=== PATIENT | female | born 1945 | race Caucasian/White ===

== ENCOUNTER → 2016-04-08 | Outpatient (REF) | payer MEDICARE ==
[~2016-04-08] MED LIST: /ADVA50050; /ADVA50050 IN; /BISO10TA OR; /BISO10TA PO; /CLOT10TR MT; /DULO30CA; /GLIM2TA; /GLIP10TAB OR; /METO25TA PO; /MOXI40TA OR; /ONDA4TA; /ONDA4TA OR; /SCOPPA TD; /SCOPPA TOP; /SUCR1TA OR; /TIOT18INH INH; ACET65TA; ACET65TA OR; ADVA115A INH; ALBU17IN INH; ALBU83IN IN; ALDA25TA2 PO; ALLE25CA; ALLE25CA OR; ALLE25CA PO; AMIT24CA5 PO; AMMO12CR4 EX; AMMO12CR4 TOP; AMMONIUM LACTATE; ASPI1TAB PO; ASPI325T; ASPI325T OR; ASPI81TA45 PO; ASPI81TA83 OR; ASPI81TA83 PO; ATARAX OR; AVAP300T OR; BABY81CH; BACL-67 PO; BACL10TA PO; BACL10TA2; BACL10TA2 OR; BACL10TA2 PO; BACT800T OR; BALMEX; BALMEX CREAM EXT; BALMEX TOP; BISO10TA PO; BISO5TAB5 PO; BISOPROLOL PO; BREO1INH INH; BUPIVACAINE; CALAMINE LOTION; CALAMINE LOTION EXT; CALC0.5C PO; CALC1CAP31 PO; CARA1SUS; CEPHULAC PO; CIPR250T3 PO; CLON0.1D3; CLOTPOW; COLA100C2; COLA100C2 OR; COLA100C2 PO; COMBIVENT; COMBVENT; COMBVENT INH; COUM1TAB17 PO; CRAN500C2 PO; DEMA100T PO; DEMA10TA; DEMA20TA; DEMA20TA6 PO; DEMADEX; DESONIDE; DILA2TAB; DOCU100C PO; DOCU10CA PO; DOXY100T OR; DRIS50002 PO; DUONSOL IN; ECOT325T5 OR; ESTR625TA OR; ESTR625TA PO; FERGON PO; FERR325T; FERR32TA PO; FERROUS GLUCONATE PO; FIORICET OR; FLEET ENEMA PR; FLON0.05; FLOVENT INH; FLUC10TA; FLUO20CA8 PO; FLUT11IN; FLUT11IN IN; FLUT11IN INH; FOLI1TAB OR; Fioricet PO; GLUC5TAB3 OR; GUAIPOW OR; HEPARIN; HEPARIN FLUSH; HEPARIN FLUSH IVFLUSH; HEPARIN LOCK FLUSH IV; HYDR25TA7; HYDR4TAB; HYDR4TAB OR; HYDR4TAB PO; HYDR50TA8 OR; HYDROCORTISONE0.5 %; HYDROCORTISONE0.5 % EXT; HYDROXYZINE OR; INSUH10VL SC; INSUHUMDS SC; INSULADS SC; INSULANT SC; INSULIN LANTUS SC; IPRASOL4 INH; JANUVIA OR; JANUVIA PO; KEPP500T6 PO; KEPPRA OR; KEPPRA PO; KETO0.5S15 OD; KLOR1TAB73 PO; LACT10SO29 PO; LACT10SO8; LACT10SO8 OR; LANTUS INSULIN SC; LASI80TA PO; LEVA500T OR; LEVA750T PO; LIDO1OIN2 TOP; LOPR50TA OR; LORA0.5T OR; LYRI75CA PO; MAALSUS; MAALSUS OR; MAALSUS PO; MACR50CA OR; MACROBID OR; MACROBID PO; MARCAINE; MARCAINE INJ; METO10TA2 OR; METO10TA2 PO; METO25TA PO; METO25TA2; METO25TA2 OR; MILKSUS OR; MILKSUS PO; MIRA3350 PO; MIRALEX OR; MORPHINE; MUCINEX; NAPR500T81; NAPRPOW4; NITRO10CA PO; NOVALOG INSULIN SC; NOVOINJ3 SC; NOVOLOG100 MG/ML SC; NYSTATIN; NYSTATIN EXT; NYSTATIN POWDER; NYSTATIN POWDER TOP; NYSTATIN TOP; NYSTPOW4 TOP; OMEP20CA3 PO; OMEP20TA7 OR; OXYC10TA12; OXYC10TA56 OR; OXYC1TAB23 PO; OXYC5CAP4; OXYC5CAP4 OR; OXYC5CAP4 PO; PAIN PUMP; PAIN325T; PAIN325T OR; PAXI20TA; PHEN 25; PHEN 25 OR; PHEN 25 PO; PHENERGAN; POTA10CA2; POTA10CA32 PO; POTA20TA2; POTA20TA2 OR; POTASSIUM CLORIDE OR; POTASSIUM OR; PRED10PA PO; PRED10TA2; PRED10TA2 OR; PRED20TA OR; PRED5TAB OR; PREDOPD OD; PREG25CA; PREG50CA PO; PREM0.9T; PRIALT INJ; PRIL20CA; PRIL20CA OR; PROM-190 PO; PROM25TA PO; PROZ20CA; PROZ20CA OR; PROZ40CA PO; Pain Pump; REGL10TA6 PO; REST0.05 OU; RESTASIS 0.05% OU; ROBITUSSIN OR; ROBITUSSIN OTC OR; ROBUTUSSIN; ROCA0.5C PO; SALINE FLUSH IV; SALINE LOCK FLUSH IV; SALISOL7; SENN15TA2 OR; SENN187T; SENN187T OR; SENN8.6T5 OR; SENO8.6T2 PO; SILVADENE; SILVADENE CREAM; SILVADENE TOP; SIME125C; SPIR1CAP INH; SPIR25TA2 OR; STARLIX PO; SUCR1TAB56 PO; TOPR25TA; TORS100T12 PO; TORS20TA2 OR; TORS20TA2 PO; TRAM50TA2; TRAM50TA2 OR; TRAN1.5D2 TOP; TYLE325T5 PO; VERA120C; VERA120C PO; VERA12TASA OR; VERA1TAB10 PO; VICT18IN SC; VIGA0.02 OD; VITA500047 PO; XARE15TA PO; XARE20TA PO; Z PACK; ZARO2.5T OR; ZITH500T; ZOFR20TA PO; ZOFR8TAB; ZYLE0.5S OU; [UNRECOGNIZED DRUG - CODE] INJ; [UNRECOGNIZED DRUG - CODE] IT; [UNRECOGNIZED DRUG - CODE] IT; [UNRECOGNIZED DRUG - CODE] PO; [UNRECOGNIZED DRUG - CODE] PO; [UNRECOGNIZED DRUG - OTHER]; [UNRECOGNIZED DRUG - OTHER]; [UNRECOGNIZED DRUG - OTHER]; [UNRECOGNIZED DRUG - OTHER] OR; guaifenesin; home o2; hydroxyzine; lopressor; oxygen; starlix PO
[2016-04-08 17:35] LABS: BASO # 0.2 K/mm3 (0.0-0.2); BASO % 2.4 % (0.0-1.0); EOS # 0.2 K/mm3 (0.0-0.50); EOS % 2.7 % (0.0-3.0); LYMPH # 1.7 K/mm3 (1.5-4.5); LYMPH % 17.4 % (24.0-44.0); MEAN CORPUSCULAR HEMOGLOBIN 24.7 pg (27.0-33.0); MEAN CORPUSCULAR HGB CONC 30.3 g/dl (32.0-36.5); MEAN CORPUSCULAR VOLUME 81.3 fl (80.0-96.0); MONO # 0.5 K/mm3 (0.0-0.8); MONO % 5.9 % (0.0-5.0); NEUTROPHILS # 6.3 K/mm3 (1.8-7.7); NEUTROPHILS % 69.9 % (36.0-66.0); RED CELL DISTRIBUTION WIDTH 24.4 % (11.5-14.5)
[2016-04-08 17:52] LABS: ALBUMIN 3.3 GM/DL (3.2-5.2); ALBUMIN/GLOBULIN RATIO 0.87 (1.00-1.93); BILIRUBIN,TOTAL 0.3 MG/DL (0.2-1.0); CALCIUM LEVEL 8.8 MG/DL (8.8-10.2); CREATININE FOR GFR 1.7 MG/DL (0.55-1.02); GLOMERULAR FILTRATION RATE 31.5 (>39); POTASSIUM SERUM 4.2 MEQ/L (3.5-5.1); TOTAL PROTEIN 7.1 GM/DL (6.4-8.2)
== END ==
LOC: M LAB REF 16:50
PROVIDERS: ATTEND Nurse Practitioner Family
DX: I50.9 Heart failure, unspecified (principal); E11.65 Type 2 diabetes mellitus with hyperglycemia; M10.00 Idiopathic gout, unspecified site; D63.1 Anemia in chronic kidney disease

== ENCOUNTER → 2016-04-27 | Outpatient (REF) | payer MEDICARE ==
[~2016-04-27] MED LIST changes: +TORS100T PO; -TORS100T12 PO; +VANC10005 INJ; -[UNRECOGNIZED DRUG - CODE] INJ
== END ==
LOC: M LAB REF 16:26
PROVIDERS: ATTEND Internal Medicine
DX: I50.9 Heart failure, unspecified (principal); D63.1 Anemia in chronic kidney disease; E11.65 Type 2 diabetes mellitus with hyperglycemia; N18.9 Chronic kidney disease, unspecified; E11.22 Type 2 diabetes mellitus with diabetic chronic kidney disease

== ENCOUNTER → 2016-05-11 | Outpatient (REF) | payer MEDICARE ==
[~2016-05-11] MED LIST changes: +COLC1TAB13 PO; +INSULADS INJ; +LYRI100C10 PO; +MUCI600T34 PO
[2016-05-11 18:32] LABS: ALBUMIN 3.3 GM/DL (3.2-5.2); CREATININE FOR GFR 1.74 MG/DL (0.55-1.02); GLOMERULAR FILTRATION RATE 30.7 (>39); MAGNESIUM LEVEL 2.3 MG/DL (1.8-2.4); PHOSPHORUS LEVEL 2.3 MG/DL (2.5-4.9); POTASSIUM SERUM 4.8 MEQ/L (3.5-5.1); URIC ACID 8.5 MG/DL (2.6-6.0)
[2016-05-11 18:51] LABS: BASO % 0.8 % (0.0-1.0); EOS # 0.2 K/mm3 (0.0-0.50); EOS % 3.1 % (0.0-3.0); LARGE UNSTAINED CELL # 0.1 K/mm3 (0.0-0.4); LARGE UNSTAINED CELL % 1.2 % (0.0-4.0); LYMPH # 1.4 K/mm3 (1.5-4.5); LYMPH % 19.8 % (24.0-44.0); MEAN CORPUSCULAR HEMOGLOBIN 24.5 pg (27.0-33.0); MEAN CORPUSCULAR VOLUME 84.6 fl (80.0-96.0); MONO # 0.4 K/mm3 (0.0-0.8); MONO % 6.1 % (0.0-5.0); NEUTROPHILS # 4.4 K/mm3 (1.8-7.7); PLATELET COUNT, AUTOMATED 218 k/mm3 (150-450); RED CELL DISTRIBUTION WIDTH 18.7 % (11.5-14.5); WHITE BLOOD COUNT 6.4 K/mm3 (4.0-10.0)
[2016-05-11 18:59] LABS: ADD MORPHOLOGY? YES
[2016-05-11 20:38] LABS: ANISOCYTOSIS 1+
== END ==
LOC: M LAB REF 16:38
PROVIDERS: ATTEND Internal Medicine Nephrology
DX: N17.9 Acute kidney failure, unspecified (principal); D63.1 Anemia in chronic kidney disease; N25.81 Secondary hyperparathyroidism of renal origin; N18.9 Chronic kidney disease, unspecified

== ENCOUNTER 2016-05-13 22:14 | Inpatient (IN) | payer MEDICARE, MEDICAID ==
[~2016-05-13] VITALS: Ht 170.2 cm; Wt 138.8 kg
[~2016-05-13 22:14] MED LIST changes: -COLC1TAB13 PO; -INSULADS INJ; -LYRI100C10 PO; -MUCI600T34 PO
[2016-05-13 23:19] LABS: ABG BASE EXCESS 1.5 (-2.0-2.0); ABG DEVICE NASAL CANN; ABG HCO3 26.8 MEQ/L (22.0-26.0); ABG PARTIAL PRESSURE CO2 44.7 mmHg (35.0-45.0); ABG PARTIAL PRESSURE O2 94.7 mmHg (75.0-100.0); ABG STANDARD HCO3 25.8 MEQ/L (22.0-26.0); ABG TOTAL CO2 28.1 MEQ/L (23.0-31.0); ABG pH (ARTERIAL) 7.395 UNITS (7.350-7.450)
[2016-05-13 23:52] LABS: DIFF SLIDE NUMBER 329; MEAN CORPUSCULAR HEMOGLOBIN 24.6 pg (27.0-33.0); MEAN CORPUSCULAR HGB CONC 29.6 g/dl (32.0-36.5); MEAN CORPUSCULAR VOLUME 83.2 fl (80.0-96.0); PLATELET COUNT, AUTOMATED 246 k/mm3 (150-450); RED CELL DISTRIBUTION WIDTH 18.4 % (11.5-14.5); WHITE BLOOD COUNT 8.1 K/mm3 (4.0-10.0)
[2016-05-14 00:10] LABS: BASOPHILS 3 % (0-4); EOSINOPHILS 3 % (0-5)
[2016-05-14 00:11] LABS: ANISOCYTOSIS 2+; HYPOCHROMASIA 3+
[2016-05-14 00:26] LABS: OSMOLALITY SERUM 312 MOSM/KG (280-301)
[2016-05-14 00:27] LABS: ANION GAP 9 MEQ/L (8-16); BLOOD UREA NITROGEN 30 MG/DL (7-18); CALCIUM LEVEL 9.9 MG/DL (8.8-10.2); CARBON DIOXIDE LEVEL 33 MEQ/L (21-32); CHLORIDE LEVEL 90 MEQ/L (98-107); CREATININE FOR GFR 1.86 MG/DL (0.55-1.02); GLOMERULAR FILTRATION RATE 28.4 (>39); POTASSIUM SERUM 3.9 MEQ/L (3.5-5.1); SODIUM LEVEL 132 MEQ/L (136-145)
[2016-05-14 00:32] LABS: GLUCOSE, FASTING 403 MG/DL (83-110)
[2016-05-14] MEDS ORDERED: HumuLIN R (REGULAR) INSULIN (NovoLIN R) **100U/ML** PER UNIT As Ordered ONE ×2 (00:41→02:01)
--- NOTE | 2016-05-14 02:40 | REPUSA ---
CLINICAL HISTORY: Shortness of breath. TECHNIQUE: Multiple axial CT images were obtained through the thorax without IV contrast material. COMMENTS: Comparison is made to the prior exam performed on 03/07/2016. Right port a catheter is in good position with its tip in the superior vena cava. No change in calcified mediastinal and hilar lymph nodes. No change in bilateral basilar atelectatic airspace disease of the lungs. No change in central pulmonary venous congestion. There is no evidence of pleural or parenchymal-based mass. There are no pleural effusions. There is n o evidence of hilar or mediastinal lymphadenopathy. The heart and great vessels are within normal galvan its. The visualized portions of the liver are of uniform attenuation without mass or defect. There is no i ntra or extrahepatic biliary ductal dilatation. The spleen is unremarkable. The visualized pancreas i s of normal contour and attenuation characteristics. There is no evidence of adrenal mass. The visual ized portions of the kidneys present no abnormalities. No change in small sliding hernia. The bony structures are free of lytic or blastic lesions. IMPRESSION: No change is seen. Thank you for your kind referral of this patient.
[2016-05-14] MEDS ORDERED: fentaNYL 100 MCG/2 ML INJECTION (J3010) As Ordered ONE (02:50)
[2016-05-14] MEDS ORDERED: methylPREDNISolone INJ 125 MG/2 ML VIAL (J2930) As Ordered ONE (04:55)
[2016-05-14] MEDS ORDERED: IPRATROPIUM 0.5MG/ALBUTEROL 2.5MG INH SOL UD 3ML (DUONEB)(J7620) As Ordered ONE (05:06)
[2016-05-14] MEDS ORDERED: ONDANSETRON 4MG/2ML VIAL (J2405) IV PRN (05:30)
[2016-05-14] MEDS ORDERED: IPRATROPIUM 0.5MG/ALBUTEROL 2.5MG INH SOL UD 3ML (DUONEB)(J7620) NEB PRN (05:30)
[2016-05-14] MEDS ORDERED: TORS100T PO (05:32)
[2016-05-14] MEDS ORDERED: INSULADS INJ (05:32)
--- NOTE | 2016-05-14 05:38 | HPEPDOC ---
General Date of Admission 05/14/2016 Chief Complaint The patient is a 70-year-old female admitted with a reason for visit of High Blood Sugar/Shortness Of Breath. 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 The patient states that over the last 2 days she has had worsening shortness of breath with associated nonproductive cough. The patient notes that she usually wears 2 L of oxygen at night, however she has felt that she has needed it during the daytime as well during this period. The patient denies any orthopnea , PND, or increase in lower extremity swelling. In addition, the patient states that she has been checking her blood sugars at home and they have been around 500. She notes that she has been taking her insulin medication, but states that she has had a difficult time controlling her blood sugar for years. The patient denies any fevers, chills, chest pain, palpitations, abdominal pain, or any nausea/vomiting/diarrhea. In the ER, a CT of the chest revealed no acute findings. However, the patient was hypoxic and requiring 2 L of oxygen with diminished breath sounds noted diffusely. In addition, the patient's blood sugar levels were noted to be greater than 400 in the ER. The patient will be admitted under the service of Dr. Story for further evaluation and management of COPD exacerbation and elevated blood sugar levels. Home Medications Scheduled (Restasis) 0.05 % Emu 1 DROP OU BID (Reported) (Amitiza) 24 Mcg Cap 24 MCG PO QHS (Reported) (Ammonium Lactate) 12 % Cre 1 DOSE TOP BID (Reported) APPLY TO LEGS AND FEET (Colchicine) 0.6 Mg Tab 0.6 MG PO DAILY (Reported) (Victoza) 18 Mg/3 Ml Inj 1.8 MG SC DAILY (Reported) Baclofen (Baclofen) 20 Mg Tab 20 MG PO BID (Reported) Bisoprolol Fumarate (Bisoprolol Fumarate) 5 Mg Tab 2.5 MG PO DAILY (Reported) Cranberry Extract (Cranberry) 500 Mg Cap 500 MG PO TID (Reported) Docusate Sodium (Docusate Sodium) 100 Mg Cap 100 MG PO BID (Reported) Ferrous Gluconate (Ferrous Gluconate) 324 Mg Tab 324 MG PO DAILY (Reported) Fluoxetine Hcl (Fluoxetine) 20 Mg Cap 40 MG PO DAILY (Reported) TAKES AT NOON Insulin Aspart (Novolog) 100 U/Ml Inj 16 UNITS SC AC (Reported) Insulin Glargine (Lantus) 100 Unit/Ml Inj 78 UNIT INJ BID (Reported) Lactulose (Lactulose) 10 Gm/15 Ml Radha 30 ML PO BID (Reported) MIX WITH JUICE Levetiracetam (Keppra) 500 Mg Tab 500 MG PO QID (Reported) Metoclopramide HCl (Reglan) 10 Mg Tab 10 MG PO TID (Reported) Metolazone (Metolazone) 2.5 Mg Tab 2.5 MG PO 3XW (Reported) TUESDAY, TUESDAY, TUESDAY AT NOON Omeprazole (Omeprazole) 20 Mg Cap 20 MG PO BID (Reported) Ondansetron HCl (Zofran) 4 Mg Tab 4 MG PO QID (Reported) Potassium Chloride (Potassium Chloride ER) 10 Meq Cap 30 MEQ PO TID (Reported) Pregabalin (Lyrica) 100 Mg Cap 100 MG PO TID (Reported) Promethazine HCl (Promethazine HCl) 25 Mg Tab 25 MG PO AC (Reported) Senna (Senokot) 8.6 Mg Tab 2 TAB PO BID (Reported) Spironolactone (Aldactone) 25 Mg Tab 25 MG PO BID (Reported) Sucralfate (Sucralfate) 1 Gm Tab 1 GM PO BID (Reported) Torsemide (Torsemide) 100 Mg Tab 100 MG PO BID (Reported) TAKES WITH 20 MG FOR 120 MG TOTAL Torsemide (Torsemide) 20 Mg Tab 20 MG PO DAILY (Reported) TAKES WITH 100 MG FOR 120 MG TOTAL Vitamin D (Drisdol) 50,000 Unit Cap 50,000 UNIT PO QWEEK (Reported) ON TUESDAY Scheduled PRN Acetaminophen (Tylenol) 325 Mg Tab 650 MG PO Q4H PRN PRN PAIN / FEVER (Reported ) Albuterol/Ipratropium (Ipratropium [place]/Albut 0.5-2.5 (3) mg/3Ml) 1 Radha Radha 1 RADHA INH QID PRN PRN SHORTNESS OF BREATH (Reported) Guaifenesin (Mucinex) 600 Mg Tab 600 MG PO BID PRN PRN CONGESTION (Reported) Milk Of Magnesia (Milk of Magnesia) 1,200 Mg/15 Ml Esperanza 30 ML PO DAILY PRN PRN CONSTIPATION (Reported) Scopolamine (Transderm-Scop) 1.5 Mg Dis 1.5 MG TOP Q72H PRN PRN NAUSEA (Reported ) Allergies Coded Allergies: Cephalosporins (Verified Allergy, Unknown, KEFLEX - HIVES, 07/05/12) Chlorpromazine (Verified Allergy, Unknown, HIVES, 07/05/12) Iodine (Verified Allergy, Unknown, 07/05/12) Latex (Verified Allergy, Unknown, RISK, 07/05/12) Loratadine (Verified Allergy, Unknown, HIVES, 07/05/12) Methadone (Verified Allergy, Unknown, 07/05/12) Penicillins (Verified Allergy, Unknown, HIVES, 07/05/12) Penicillins Cross Reactors (Verified Allergy, Unknown, HIVES, 07/05/12) Pentazocine (Verified Allergy, Unknown, HIVES, 07/05/12) Sulfa Antibiotics (Unverified Allergy, Unknown, HIVES, 12/30/14) Fluticasone (Verified Adverse Reaction, Mild, THRUSH, 07/05/12) Salmeterol (Verified Adverse Reaction, Mild, THRUSH, 07/05/12) Promethazine (Verified Adverse Reaction, Unknown, TAKES PHENERGAN AT HOME , 07/05/12) Past Medical History Medical History As noted in HPI. Surgical History Hysterectomy. Back surgery. Left ankle surgery. Lung surgery. Right hip replacement. Right knee surgery. IVC filter placement. Family History Significant Family History: No pertinent family hx Social History * Smoker: non-smoker Alcohol: denies Drugs: denies Lives at home with her , and does have health aides come to the home twice a day. However, she notes that she feels that she needs more help around the house as her deconditioning has gotten worse. Review of Symptoms Other systems 10 point review of systems negative unless otherwise specified in HPI. Physical Examination General Exam: Positive: Alert, Cooperative, No Acute Distress ENT Exam: Positive: Atraumatic, Mucous membr. moist/pink Chest Exam: Positive: Clear to auscultation, Diminished, Negative: Rales, Rhonchi Heart Exam: Positive: Normal S1, Normal S2, Rate Normal Abdomen Exam: Positive: Soft, Negative: Tenderness Extremity Exam: Negative: Tenderness Vital Signs As noted in EMR. Laboratory Data Labs 24H Laboratory Tests 2 05/13/16 22:21: Bedside Glucose (Misc Panel) 431H 05/13/16 23:13: Arterial Blood pH 7.395, Arterial Blood Partial Pressure CO2 44.7, Arterial Blood Partial Pressure O2 94.7, Arterial Blood Total CO2 28.1, Arterial Blood HCO3 26.8H, Arterial Blood Base Excess 1.5, Arterial Blood Oxygen Saturation 96.7, Blood Gas Bicarbonate Standard 25.8, Oxygen Delivery Device NASAL MORAIMA 05/13/16 23:34: Anion Gap 9, Anisocytosis 2+, Basophils (Manual) 3, Blood Urea Nitrogen 30H, Creatinine 1.86H, Sodium Level 132L, Potassium Level 3.9, Chloride Level 90L, Carbon Dioxide Level 33H, Calcium Level 9.9, Total Creatine Kinase 43, Creatine Kinase MB 1.0, Creatine Kinase MB Relative Index 2.32, Eosinophils (Manual) 3, Glomerular Filtration Rate 28.4L, Hypochromasia 3+, Lymphocytes (Manual) 34, Monocytes (Manual) 4, Neutrophils 56, Osmolality 312H, Platelet Estimate NORMAL , Red Blood Cell Morphology NORMAL, Troponin I < 0.02 05/13/16 23:59: Bedside Glucose (Misc Panel) 414H 05/14/16 00:47: Bedside Glucose (Misc Panel) 371H 05/14/16 02:52: Bedside Glucose (Misc Panel) 338H 05/14/16 03:58: Bedside Glucose (Misc Panel) 323H 05/14/16 04:59: Bedside Glucose (Misc Panel) 312H CBC/BMP Laboratory Tests 05/13/16 23:34 Calcium Level 9.9, Total Creatine Kinase 43, Red Blood Count 4.86, Mean Corpuscular Volume 83.2, Mean Corpuscular Hemoglobin 24.6 L, Mean Corpuscular Hemoglobin Concent 29.6 L, Red Cell Distribution Width 18.4 H Microbiology Microbiology 05/14/16 Blood Culture, Received Pending 05/13/16 Blood Culture, Received Pending Plan / VTE VTE Prophylaxis Ordered?: Yes Plan Plan COPD exacerbation with hypoxia requiring 2 L of supplemental oxygen CT of the chest with no acute findings noted Patient does not usually require oxygen while awake ABG without any hypercapnia noted Status post 125 mg dose of IV steroids in the ER We'll continue on 40 mg of prednisone by mouth Continue Nebulizer treatments Sputum culture, and respiratory panel ordered Patient started on azithromycin Continue to monitor respiratory status Elevated blood sugar levels Patient with a history of Uncontrolled diabetes mellitus requiring high amounts of insulin Hemoglobin A1c noted to be 9.9% on 04/27/69 We will continue the patient on Levemir 78 units twice a day, and NovoLog 16 units before meals The patient's insulin requirements may need to be titrated up as the patient is receiving steroids at this time Hypertension Continue current meds History of DVT status post IVC filter MATT Continue home CPAP CKD stage 4 Serum creatinine appears to be at baseline History of diastolic heart failure Patient appears volume compensated at this time Patient unsure of her Diuretic dose, the Medication Reviewer will reach out to the patient's caregiver later this morning for further clarification Seizure disorder Continue Keppra Morbid obesity History of chronic arachnoiditis Patient does state that she has had more trouble with transferring over the last few months We will order a physical therapy evaluation to further assess the need for DME, other home services DVT prophylaxis -subcutaneous heparin The patient will be admitted under the service of Dr. Paula Story, who will begin following the patient on 05/14/2016 at 7 AM. ANGELA GIBSON MD May 14, 2016 05:38
[2016-05-14] MEDS ORDERED: TORS20TA2 PO (05:42)
[2016-05-14] MEDS ORDERED: LYRI100C10 PO (05:42)
[2016-05-14] MEDS ORDERED: FERR32TA PO (05:49)
[2016-05-14] MEDS ORDERED: KEPP500T6 PO (05:49)
[2016-05-14] MEDS ORDERED: MUCI600T34 PO (05:49)
[2016-05-14] MEDS ORDERED: COLC1TAB13 PO (05:49)
[2016-05-14] MEDS ORDERED: METO25TA PO (05:49)
[2016-05-14] MEDS ORDERED: VICT18IN SC (05:49)
[2016-05-14] MEDS ORDERED: CRAN500C2 PO (05:49)
--- NOTE | 2016-05-14 06:24 | EDDOCDS ---
Nurse's Notes [facility] Name: Maricarmen Stern Age: 70 yrs Sex: Female : 1945 Arrival Date: 05/13/2016 Time: 22:14 Bed 10 Private MD: Paulo Villalobos Diagnosis: Chronic obstructive pulmonary disease with (acute) exacerbation;Hypoxemia;Hyperglycemia, unspecified Presentation: 05/13 22:22 Presenting complaint: Patient states: been sleeping, tired all day, increased rs3 difficulty breathing sat 91%. high blood sugar 457 at home. FSBS 431 at triage. Adult Sepsis Screening: The patient does not have new or worsening altered mentation. Patient's respiratory rate is less than 22. Systolic blood pressure is greater than 100. Patient has a qSOFA score of 0- Negative Sepsis Screen. Suicide/Homicide risk assessment- the patient denies having any suicidal and/or homicidal ideations and does not present with any other emotional, behavioral or mental health complaints. Status: Patient is not a litigation services manager or dependent. Transition of care: patient was not received from another setting of care. 22:22 Acuity: ARNOLD Level 3 rs3 22:22 Method Of Arrival: Wheelchair rs3 Triage Assessment: 22:31 General: Appears in no apparent distress. Pain: Denies pain. Respiratory: Onset: The rs3 symptoms/episode began/occurred gradually. Historical: - Allergies: CEPHALOSPORINS (Rash); Chlorpromazine (Rash); Doxycycline (Rash); Latex (Rash); loratadine (Rash); Methadone (Rash); Morphine (Rash); PENICILLINS (Rash); PENTAZOCINE (Rash); - Home Meds: 1. baclofen 20 mg Oral tab twice a day 2. bisoprolol fumarate 5 mg oral tab 0.5 tab once daily 3. Colace 100 mg oral cap 1 cap once daily 4. fluoxetine 20 mg Oral cap 1 cap once daily 5. metoclopramide HCl 10 mg Oral tab 1 tab once daily 6. omeprazole 20 mg Oral cpDR once daily 7. Zofran (as hydrochloride) 4 mg Oral tab daily 8. potassium chloride 10 mEq Oral cpER 1 cap once daily 9. promethazine 25 mg Oral tab 1 tab once daily 10. senna 8.6 mg oral tab 2 tabs once daily 11. spironolactone 25 mg Oral tab 1 tab once daily 12. torsemide 50 mg oral tab twice a day 13. pregabalin 50 mg Oral cap 1 cap 3 times per day 14. Amitiza 24 mcg oral cap 2 times per day 15. sucralfate 1 gram Oral tab 1 tab 2 times per day 16. Vitamin D Oral daily 17. Lantus 100 unit/mL Sub-Q crtg 78 unit twice a day 18. Novolog 100 unit/mL Sub-Q soln 16 unit before meals - PMHx: Asthma; blood clot in left leg; CHF; Diabetes - IDDM: controlled; Hypertension; Migraines; retenoiditis; paralyzed diaphragm; Seizures; Sleep Apnea w/ CPAP; - PSHx: Adeel Filter Placement; right knee surgery; right hip surgery; lung surgery; Hysterectomy; back surgery; left ankle surgery; - Social history: Smoking status: Patient states was never smoker of tobacco. No barriers to communication noted, The patient speaks fluent Arabic. - Family history: Not pertinent, No immediate family members are acutely ill. - : The pt / caregiver states he / she is not on anticoagulants. Home medication list is obtained from the patient. - Exposure Risk Screening:: None identified. Screenin:29 Infection Control. gr2 23:17 Screening information is obtained from the patient. Fall risk: At risk due to gait mlc disturbance. Abuse/DV Screen: The patient / caregiver reports he/she is:. Abuse/DV Screen: The patient / caregiver reports he/she is: not in a situation that causes fear, pain or injury. Nutritional screening: No deficits noted. home support is adequate. 05/14 00:55 Assistance ADL's: Requires assistance with meal preparation, this assistance is mlc provided by Home Health Aides, bathing, assistance is provided by Home Health Aides, dressing, assistance is provided by Home Health Aides, toileting, assistance is provided by family members, Home Health Aides, housework, assistance is provided by family members, medication administration, assistance is provided by family members. Advance Directives: Currently, there is a health care proxy, Andrzej Stern, santana. There is an active DNR order but there is no copy available at this time. There is a living will, but a copy is not available at this time. There is an active Power of Core Sucker, Andrzej Stern, . Assessment: 05/13 23:37 General: Appears ill, Behavior is appropriate for age, cooperative, pleasant. Pain: mlc Location: thoracic area and low back area Pain currently is 8 out of 10 on a pain scale. Neurological: Level of Consciousness is awake, alert, Oriented to person, place, time. Cardiovascular: Capillary refill < 3 seconds Heart tones S1 S2 present Rhythm is Chest pain is denied. 23:40 Cardiovascular: Rhythm is regular. Respiratory: Airway is patent Respiratory effort is mlc labored, Respiratory pattern is regular, Breath sounds are diminished bilaterally. Reports shortness of breath at rest. GI: Abdomen is obese, Denies nausea. Derm: Skin is dry, Skin is normal. 05/14 00:06 Reassessment: Patient appears in no apparent distress at this time. Patient states mlc symptoms have not improved. IV fluids infusing per order. pt eating ice chips. at bedside. 00:53 Reassessment: Patient appears in no apparent distress at this time. pt repositioned for mlc comfort. IV fluids complete. pt medicated per order. . 01:50 General: Appears in no apparent distress, comfortable, to be sleeping. Respiratory: mlc Airway is patent Respiratory effort is even, unlabored. Derm: Skin is normal. 02:10 Reassessment: Patient appears in no apparent distress at this time. pt medicated per mlc order. 03:04 Reassessment: pt c/o back and leg pain. pt medicated per order. pt resting at this mlc time, lights dimmed for comfort. . 04:11 Reassessment: Patient appears in no apparent distress at this time. pt reports no mlc decrease in pain. pt resting comfortably in bed, resp easy/unlabored. . 04:23 General: pt medicated per order. pt repositioned for comfort. . mlc 05:10 General: Dr. Panchal at bedside. pt resting comfortably in bed. pain rated 8/10 but pt mlc states she is comfortable. 06:19 General: Appears in no apparent distress, comfortable, Behavior is cooperative, mlc pleasant. Neurological: Level of Consciousness is awake, alert, obeys commands, Oriented to person, place, time. Respiratory: Airway is patent Respiratory effort is even, unlabored, Respiratory pattern is regular. Derm: Skin is normal. Vital Signs: 05/13 22:17 BP 157 / 55; Pulse 78; Resp 20 S; Temp 95.9(O); Pulse Ox 95% on R/A; Weight 124.28 kg gr2 (R); Height 5 ft. 7 in. (170.18 cm) (R); Pain 05/14; 23:17 BP 135 / 63 (auto/); mlc 23:17 Pulse 74 MON; Pulse Ox 94% ; mlc 23:40 Pulse 74 MON; Pulse Ox 94% ; mlc 23:47 BP 175 / 78 (auto/); mlc 23:47 Pulse 74 MON; Pulse Ox 94% ; mlc 05/14 00:05 Pulse 76 MON; Pulse Ox 96% ; mlc 00:17 BP 142 / 63 (auto/); mlc 00:17 Pulse 78 MON; Pulse Ox 97% ; mlc 00:32 BP 148 / 69 (auto/); mlc 00:32 Pulse 78 MON; Pulse Ox 93% ; mlc 00:47 BP 146 / 64 (auto/); mlc 00:53 Pulse 80 MON; Pulse Ox 94% ; mlc 01:02 Pulse 82 MON; Pulse Ox 94% ; mlc 01:02 BP 138 / 60 (auto/); mlc 01:17 Pulse 82 MON; Pulse Ox 94% ; mlc 01:17 BP 134 / 63 (auto/); mlc 01:32 BP 131 / 63 (auto/); mlc 01:32 Pulse 82 MON; Pulse Ox 93% ; mlc 01:47 Pulse 82 MON; Pulse Ox 93% ; mlc 01:47 BP 125 / 70 (auto/); mlc 02:02 BP 142 / 66 (auto/); mlc 02:02 Pulse 82 MON; Pulse Ox 97% ; mlc 02:17 Pulse 80 MON; Pulse Ox 95% ; mlc 02:17 BP 154 / 67 (auto/); mlc 02:32 Pulse 82 MON; Pulse Ox 95% ; mlc 02:32 BP 163 / 67 (auto/); mlc 02:47 BP 145 / 65 (auto/); mlc 02:47 Pulse 80 MON; Pulse Ox 94% ; mlc 03:02 Pulse 80 MON; Pulse Ox 92% ; mlc 03:02 BP 124 / 60 (auto/); mlc 03:04 Pulse 80 MON; Pulse Ox 89% ; mlc 03:17 Pulse 80 MON; Pulse Ox 94% ; mlc 03:17 BP 129 / 58 (auto/); mlc 03:32 Pulse 82 MON; Pulse Ox 97% ; mlc 03:32 BP 149 / 87 (auto/); mlc 03:47 BP 140 / 61 (auto/); mlc 03:47 Pulse 80 MON; Pulse Ox 93% ; mlc 04:02 BP 141 / 62 (auto/); mlc 04:09 Pulse 78 MON; Pulse Ox 96% ; mlc 04:17 Pulse 80 MON; Pulse Ox 96% ; mlc 04:17 BP 136 / 61 (auto/); mlc 04:32 Pulse 82 MON; Pulse Ox 94% ; mlc 04:32 BP 148 / 65 (auto/); mlc 04:47 Pulse 80 MON; Pulse Ox 94% ; mlc 04:47 BP 150 / 68 (auto/); mlc 05:02 BP 150 / 68 (auto/); mlc 05:02 Pulse 80 MON; Pulse Ox 94% ; mlc 05:10 Pain 8/10; mlc 05:17 Pulse 78 MON; Pulse Ox 96% ; mlc 05:17 BP 156 / 82 (auto/); mlc 05:32 Pulse 78 MON; Pulse Ox 95% ; mlc 05:32 BP 140 / 64 (auto/); mlc 05:46 Temp 97.4; mlc 05:47 Pulse 78 MON; Pulse Ox 95% ; mlc 05:47 BP 140 / 65 (auto/); mlc 06:02 Pulse 78 MON; Pulse Ox 96% ; mlc 06:02 BP 127 / 60 (auto/); mlc 06:17 BP 128 / 60 (auto/); mlc 06:17 Pulse 80 MON; Pulse Ox 96% ; mlc 05/13 22:17 Body Mass Index 42.91 (124.28 kg, 170.18 cm) gr2 Vitals: 05/13 22:17 Log In Time: May 13, 2016 at 22:17. RN notified that patient meets Red Flag gr2 criteria. ED Course: 22:16 Patient visited by Eric Mercer. gr2 22:16 Patient moved to Waiting gr2 22:17 Paulo Villalobos MD is Private Physician. gr2 22:19 Patient visited by Eric Mercer. gr2 22:19 Patient visited by Eric Mercer. gr2 22:19 Patient moved to Pre RCE gr2 22:24 Triage Initiated rs3 22:32 Vilma Farris,GUREMET is Primary Nurse. rs3 22:32 Patient moved to 10 rs3 22:33 Placido Arredondo DO is Attending Physician. mm11 22:33 Patient visited by Placido Arredondo DO. mm11 22:45 Patient visited by Placido Arredondo DO. mm11 23:13 [facility] Payment Agreement was scanned into [employer] and attached to record. ks16 23:17 The patient / caregiver is instructed regarding the plan of care and ED course. Cardiac mlc monitor on. Pulse ox on. NIBP on. 23:17 Accessed using accessed w/ # 20 Foley needle, sterile technique, per hospital protocol. mlc InfusaPort in patient's anterior aspect of right upper chest. Clean & dry. Dressing intact. Good blood return. Flushes easily. O2 via nasal cannula \T\ 2L/min. 23:37 Osmolality, Serum Sent. mlc 23:37 -Blood Culture Sent. mlc 23:37 Basic Metabolic Profile Sent. mlc 23:37 CBC with Diff Sent. mlc 23:37 Cardiac Injury Profile Sent. mlc 23:37 Troponin Sent. mlc 23:38 EKG done. (by ED staff). Reviewed by Placido Arredondo DO. cln 23:39 Patient visited by Nargis Sunshine PCA. cln 23:42 Patient visited by Vilma Farris RN. mlc 05/14 00:06 DIFFERENTIAL NO CHARGE Sent. mlc 00:08 Patient visited by Vilma Farris RN. mlc 00:30 Notified attending ED physician of Critical lab value. Dr Arredondo notified of glucose andrew of 403mg/dl. 00:58 Patient visited by Vilma Farris RN. mlc 01:50 Patient visited by Vilma Farris RN. mlc 02:12 Patient visited by Vilma Farris RN. mlc 02:48 Al cath inserted 16 Fr. Balloon inflated. To gravity drainage. returned clear yellow mlc urine. Patient tolerated well. 03:05 Patient visited by Vilma Farris RN. mlc 03:16 CT Chest Without Contrast Returned. EDMS 03:51 Patient visited by Placido Arredondo DO. mm11 04:11 Patient visited by Vilma Farris RN. mlc 04:24 Patient visited by Vilma Farris RN. mlc 04:56 Torrey Panchal is Hospitalizing Provider. mm11 05:11 Patient visited by Vilma Farris RN. mlc 06:19 No procedures done that require assistance. mlc Administered Medications: 05/13 23:37 Drug: NS 0.9% 500 ml [sodium chloride 0.9 % intravenous solution] Route: IV; Rate: mlc bolus; Site: Implantable Access Device; 05/14 00:52 Follow up: IV Status: Completed infusion [facility] [place] 00:51 Drug: Insulin Regular Human 10 units [insulin regular human 100 unit/mL injection mlc solution (0.1 mL)] {Co-Signature: ko2 (Dayanna Smith RN).} Route: IVP; Site: Implantable Access Device; 00:52 Drug: heparin 100units/mL flush (infusaport) 5 ml [heparin flush (porcine) 100 unit/mL mlc in 0.9 % sodium chloride IV kit (5 mL)] Route: IVP; Site: Implantable Access Device; 02:09 Drug: Insulin Regular Human 10 units [insulin regular human 100 unit/mL injection mlc solution (0.1 mL)] {Co-Signature: [email or web address] (Miranda Cee RN).} Route: IVP; Site: Implantable Access Device; 03:04 Drug: fentaNYL (PF) 50 mcg [fentanyl (PF) 50 mcg/mL injection solution (1 mL)] Route: mlc IVP; Site: Implantable Access Device; 04:23 Drug: fentaNYL (PF) 50 mcg [fentanyl (PF) 50 mcg/mL injection solution (1 mL)] Route: mlc IVP; Site: Implantable Access Device; 05:10 Follow up: Pain 11/11 Adult; Response: Pain is decreased [facility] [place] 05:09 Drug: Solu-MEDROL 125 mg [Solu-Medrol 500 mg intravenous solution (125 mg)] Route: IVP; [facility] [place] Site: Implantable Access Device; 05:15 Drug: Albuterol-Ipratropium 3 ml [ipratropium-albuterol 0.5 mg-3 mg(2.5 mg base)/3 mL lf2 nebulization soln (3 mL)] Route: Inhalation; Point of Care Testing: Blood Glucose: 00:06 Blood Glucose: 414 mg/dL; mlc 00:55 Blood Glucose: 371 mg/dL; mlc 01:50 Blood Glucose: 378 mg/dL; mlc 01:50 Blood Glucose: 381 mg/dL; mlc 02:52 Blood Glucose: 338 mg/dL; mlc 03:58 Blood Glucose: 323 mg/dL; mlc 05:09 Blood Glucose: 312 mg/dL; [facility] [place] Ranges: Output: 06:24 Urine: 1100.00ml (Al); Total: 1100.00ml. [facility] [place] RT: 05:15 Subsequent Med Neb Given as ordered Patient was reinforced on procedure Patient lf2 tolerated procedure well without adverse effect. O2 via nasal cannula \T\ 2L/min. Respiratory: Airway is patent Respiratory effort is even, unlabored, Respiratory pattern is regular symmetrical, Breath sounds are diminished bilaterally. Breath sounds with wheezes bilaterally. at expiration. Order Results: Lab Order: Fingerstick Blood Sugar; [facility] 22:21 Test: BEDSIDE GLUCOSE; Value: 431; Range: 83-110; Abnormal: Above high normal; Units: MG/DL; Status: F Lab Order: -Arterial Blood Gas; [facility]05/13/16 23:13 Test: ABG pH (ARTERIAL); Value: 7.395; Range: 7.350-7.450; Units: UNITS; Status: F Test: ABG PARTIAL PRESSURE CO2; Value: 44.7; Range: 35.0-45.0; Units: mmHg; Status: F Test: ABG PARTIAL PRESSURE O2; Value: 94.7; Range: 75.0-100.0; Units: mmHg; Status: F Test: ABG TOTAL CO2; Value: 28.1; Range: 23.0-31.0; Units: MEQ/L; Status: F Test: ABG HCO3; Value: 26.8; Range: 22.0-26.0; Abnormal: Above high normal; Units: MEQ/L; Status: F Test: ABG BASE EXCESS; Value: 1.5; Range: -2.0-2.0; Status: F Test: ABG STANDARD HCO3; Value: 25.8; Range: 22.0-26.0; Units: MEQ/L; Status: F Test: ABG O2 SATURATION; Value: 96.7; Range: 95.0-99.0; Units: %; Status: F Test: ABG DEVICE; Value: NASAL MORAIMA; Status: F Lab Order: Basic Metabolic Profile; [facility] 05/13/16 23:34 Test: GLUCOSE, FASTING; Value: 403; Range: 83-110; Abnormal: Above upper panic limits; Units: MG/DL; Status: F Test: BLOOD UREA NITROGEN; Value: 30; Range: 7-18; Abnormal: Above high normal; Units: MG/DL; Status: F Test: CREATININE FOR GFR; Value: 1.86; Range: 0.55-1.02; Abnormal: Above high normal; Units: MG/DL; Status: F Test: SODIUM LEVEL; Range: 136-145; Units: MEQ/L; Status: I Test: POTASSIUM SERUM; Range: 3.5-5.1; Units: MEQ/L; Status: I Test: CHLORIDE LEVEL; Range: 98-107; Units: MEQ/L; Status: I Test: CARBON DIOXIDE LEVEL; Range: 21-32; Units: MEQ/L; Status: I Test: ANION GAP; Range: 8-16; Units: MEQ/L; Status: I Test: CALCIUM LEVEL; Range: 8.8-10.2; Units: MG/DL; Status: I Test: GLOMERULAR FILTRATION RATE; Value: 28.4; Range: >39; Abnormal: Below low normal; Status: F Test: SODIUM LEVEL; Value: 132; Range: 136-145; Abnormal: Below low normal; Units: MEQ/L; Status: F Test: POTASSIUM SERUM; Value: 3.9; Range: 3.5-5.1; Units: MEQ/L; Status: F Test: CHLORIDE LEVEL; Value: 90; Range: 98-107; Abnormal: Below low normal; Units: MEQ/L; Status: F Test: CARBON DIOXIDE LEVEL; Value: 33; Range: 21-32; Abnormal: Above high normal; Units: MEQ/L; Status: F Test: ANION GAP; Value: 9; Range: 8-16; Units: MEQ/L; Status: F Test: CALCIUM LEVEL; Value: 9.9; Range: 8.8-10.2; Units: MG/DL; Status: F Test Note: ; Units are mL/min/1.73 m2 Chronic Kidney Disease Staging per NKF: Stage I & II GFR >=60 Normal to Mildly Decreased Stage III GFR 30-59 Moderately Decreased Stage IV GFR 15-29 Severely Decreased Stage V GFR <15 Very Little GFR Left ESRD GFR <15 on SOFTBALL CORE MOLDER Lab Order: CBC with Diff; SPEC'M 05/13/16 23:34 Test: WHITE BLOOD COUNT; Value: 8.1; Range: 4.0-10.0; Units: K/mm3; Status: F Test: RED BLOOD COUNT; Value: 4.86; Range: 4.00-5.40; Units: M/mm3; Status: F Test: HEMOGLOBIN; Value: 12.0; Range: 12.0-16.0; Units: g/dl; Status: F Test: HEMATOCRIT; Value: 40.4; Range: 36.0-47.0; Units: %; Status: F Test: MEAN CORPUSCULAR VOLUME; Value: 83.2; Range: 80.0-96.0; Units: fl; Status: F Test: MEAN CORPUSCULAR HEMOGLOBIN; Value: 24.6; Range: 27.0-33.0; Abnormal: Below low normal; Units: pg; Status: F Test: MEAN CORPUSCULAR HGB CONC; Value: 29.6; Range: 32.0-36.5; Abnormal: Below low normal; Units: g/dl; Status: F Test: RED CELL DISTRIBUTION WIDTH; Value: 18.4; Range: 11.5-14.5; Abnormal: Above high normal; Units: %; Status: F Test: PLATELET COUNT, AUTOMATED; Value: 246; Range: 150-450; Units: k/mm3; Status: F Test: NEUTROPHILS; Value: 56; Range: 35-75; Units: %; Status: F Test: LYMPHOCYTES; Value: 34; Range: 16-52; Units: %; Status: F Test: MONOCYTES; Value: 4; Range: 0-8; Units: %; Status: F Test: EOSINOPHILS; Value: 3; Range: 0-5; Units: %; Status: F Test: BASOPHILS; Value: 3; Range: 0-4; Units: %; Status: F Test: RBC MORPHOLOGY; Value: NORMAL; Status: F Test: HYPOCHROMASIA; Value: 3+; Status: F Test: ANISOCYTOSIS; Value: 2+; Status: F Lab Order: Cardiac Injury Profile; SPEC'M 05/13/16 23:34 Test: CPK CREATINE PHOSPHOKINASE; Value: 43; Range: 26-192; Units: U/L; Status: F Test: CK-MB VALUE MASS; Value: 1.0; Range: 0.0-3.6; Units: NG/ML; Status: F Test: MB/CK RELATIVE INDEX; Value: 2.32; Range: < OR =4; Status: F Test Note: ; DIAGNOSIS CRITERIA MMB ng/ml Relative Index (RI) NON-AMI < or = 5 N/A ERVIN ZONE > 5 < or = 4 AMI > 5 > 4 Lab Order: Troponin; 05/13/16 23:34 Test: TROPONIN I; Value: < 0.02; Range: < 0.10; Units: NG/ML; Status: F Test Note: ; Troponin I Reference Interval for [employer] LOCI: 99th Percentile= 0.00-0.045 ng/ml Risk Stratification: <= 0.10 ng/ml Decreased Risk for Adverse Clinical Events. 0.10-1.50 ng/ml Increased Risk for Adverse Clinical Events. Evaluation of additional criterion and/or repeat testing in 2-6 hours is suggested to rule out myocardial damage. >= 1.50 ng/ml Indicative of Myocardial Injury. Lab Order: Osmolality, Serum; 05/13/16 23:34 Test: OSMOLALITY SERUM; Value: 312; Range: 280-301; Abnormal: Above high normal; Units: MOSM/KG; Status: F Lab Order: PLATELET ESTIMATE; 05/13/16 23:34 Test: PLATELET ESTIMATE; Value: NORMAL; Range: NORMAL; Status: F Lab Order: Fingerstick Blood Sugar; 05/13/16 23:59 Test: BEDSIDE GLUCOSE; Value: 414; Range: 83-110; Abnormal: Above high normal; Units: MG/DL; Status: F Test Note: ; RN Notified Dr Order not to Draw Lab Order: Fingerstick Blood Sugar; 05/14/16 00:47 Test: BEDSIDE GLUCOSE; Value: 371; Range: 83-110; Abnormal: Above high normal; Units: MG/DL; Status: F Test Note: ; RN Notified Dr Order not to Draw Lab Order: Fingerstick Blood Sugar; 05/14/16 02:52 Test: BEDSIDE GLUCOSE; Value: 338; Range: 83-110; Abnormal: Above high normal; Units: MG/DL; Status: F Test Note: ; RN Notified Dr Order not to Draw Lab Order: Fingerstick Blood Sugar; 05/14/16 03:58 Test: BEDSIDE GLUCOSE; Value: 323; Range: 83-110; Abnormal: Above high normal; Units: MG/DL; Status: F Test Note: ; RN Notified Dr Order not to Draw Lab Order: Fingerstick Blood Sugar; SPEC'M 05/14/16 04:59 Test: BEDSIDE GLUCOSE; Value: 312; Range: 83-110; Abnormal: Above high normal; Units: MG/DL; Status: F Test Note: ; RN Notified Dr Order not to Draw Radiology Order: CT Chest Without Contrast Test: CT Chest Without Contrast REASON FOR EXAMINATION: Shortness of Breath; ; CLINICAL HISTORY: Shortness of breath.; TECHNIQUE: Multiple axial CT images were obtained through the thorax without IV contrast material.; COMMENTS:; Comparison is made to the prior exam performed on 03/07/2016.; Right port a catheter is in good position with its tip in the superior vena cava.; No change in calcified mediastinal and hilar lymph nodes.; No change in bilateral basilar atelectatic airspace disease of the lungs.; No change in central pulmonary venous congestion.; There is no evidence of pleural or parenchymal-based mass. There are no pleural effusions. There is n; o evidence of hilar or mediastinal lymphadenopathy. The heart and great vessels are within normal galvan; its.; The visualized portions of the liver are of uniform attenuation without mass or defect. There is no i; ntra or extrahepatic biliary ductal dilatation. The spleen is unremarkable. The visualized pancreas i; s of normal contour and attenuation characteristics. There is no evidence of adrenal mass. The visual; ized portions of the kidneys present no abnormalities.; No change in small sliding hernia.; The bony structures are free of lytic or blastic lesions.; IMPRESSION:; No change is seen.; Thank you for your kind referral of this patient.; ; ; Outcome: 04:57 Decision to Hospitalize by Provider. mm11 05:59 Admission hand-off: Report Faxed Fax receipt verified by GURMEET Coleman. [facility] [place] [place] 06:19 Discharge Assessment: Patient awake, alert and oriented x 3. No cognitive and/or mlc functional deficits noted. Patient verbalized understanding of disposition instructions. patient administered narcotics - yes. Patient was admitted to the hospital or transferred to another facility. The following High Risk Discharge criteria are identified: None. Admitted to Med/Surg accompanied by tech, via stretcher, with chart. Condition: stable. CT Study completed. Property sent home with patient. 06:24 Patient left the ED. [facility] [place] [place] Signatures: Dispatcher [employer] EDMS Corinne Lion RN RN Placido Spencer, DO mm11 Minnie SchafferRN RN rs3 Eric Mercer gr2 Vilma Farris RN RN [facility] [place] [place] Daniela Mace, Reg Reg [id number] Sita Romero,RT RT lf2 Nargis Sunshine, TEXTILE EXAMINER TEXTILE EXAMINER cln Dayanna Smith RN ko2 Miranda Cee RN ld5 MTDD
--- NOTE | 2016-05-14 06:24 | EDDOCDS ---
Physician Documentation [facility] Name: Maricarmen Stern Age: 70 yrs Sex: Female : 1945 Arrival Date: 05/13/2016 Time: 22:14 Bed 10 Private MD: Paulo Villalobos Disposition: 05/14/16 04:57 Hospitalization ordered by Torrey Panchal for Inpatient Admission. Preliminary diagnosis are Chronic obstructive pulmonary disease with (acute) exacerbation, Hypoxemia, Hyperglycemia, unspecified. - Bed requested for 5 Sheets. - Status is Inpatient Admission. mlc - Condition is Stable. - Problem is an acute exacerbation. - Symptoms have improved. Historical: - Allergies: CEPHALOSPORINS (Rash); Chlorpromazine (Rash); Doxycycline (Rash); Latex (Rash); loratadine (Rash); Methadone (Rash); Morphine (Rash); PENICILLINS (Rash); PENTAZOCINE (Rash); - Home Meds: 1. baclofen 20 mg Oral tab twice a day 2. bisoprolol fumarate 5 mg oral tab 0.5 tab once daily 3. Colace 100 mg oral cap 1 cap once daily 4. fluoxetine 20 mg Oral cap 1 cap once daily 5. metoclopramide HCl 10 mg Oral tab 1 tab once daily 6. omeprazole 20 mg Oral cpDR once daily 7. Zofran (as hydrochloride) 4 mg Oral tab daily 8. potassium chloride 10 mEq Oral cpER 1 cap once daily 9. promethazine 25 mg Oral tab 1 tab once daily 10. senna 8.6 mg oral tab 2 tabs once daily 11. spironolactone 25 mg Oral tab 1 tab once daily 12. torsemide 50 mg oral tab twice a day 13. pregabalin 50 mg Oral cap 1 cap 3 times per day 14. Amitiza 24 mcg oral cap 2 times per day 15. sucralfate 1 gram Oral tab 1 tab 2 times per day 16. Vitamin D Oral daily 17. Lantus 100 unit/mL Sub-Q crtg 78 unit twice a day 18. Novolog 100 unit/mL Sub-Q soln 16 unit before meals - PMHx: Asthma; blood clot in left leg; CHF; Diabetes - IDDM: controlled; Hypertension; Migraines; retenoiditis; paralyzed diaphragm; Seizures; Sleep Apnea w/ CPAP; - PSHx: Adeel Filter Placement; right knee surgery; right hip surgery; lung surgery; Hysterectomy; back surgery; left ankle surgery; - Social history: Smoking status: Patient states was never smoker of tobacco. No barriers to communication noted, The patient speaks fluent Chinese. - Family history: Not pertinent, No immediate family members are acutely ill. - : The pt / caregiver states he / she is not on anticoagulants. Home medication list is obtained from the patient. - Exposure Risk Screening:: None identified. Vital Signs: 05/13 22:17 BP 157 / 55; Pulse 78; Resp 20 S; Temp 95.9(O); Pulse Ox 95% on R/A; Weight 124.28 kg / gr2 273.99 lbs (R); Height 5 ft. 7 in. (170.18 cm) (R); Pain 05/14; 23:17 BP 135 / 63 (auto/); mlc 23:17 Pulse 74 MON; Pulse Ox 94% ; mlc 23:40 Pulse 74 MON; Pulse Ox 94% ; mlc 23:47 BP 175 / 78 (auto/); mlc 23:47 Pulse 74 MON; Pulse Ox 94% ; mlc 05/14 00:05 Pulse 76 MON; Pulse Ox 96% ; mlc 00:17 BP 142 / 63 (auto/); mlc 00:17 Pulse 78 MON; Pulse Ox 97% ; mlc 00:32 BP 148 / 69 (auto/); mlc 00:32 Pulse 78 MON; Pulse Ox 93% ; mlc 00:47 BP 146 / 64 (auto/); mlc 00:53 Pulse 80 MON; Pulse Ox 94% ; mlc 01:02 Pulse 82 MON; Pulse Ox 94% ; mlc 01:02 BP 138 / 60 (auto/); mlc 01:17 Pulse 82 MON; Pulse Ox 94% ; mlc 01:17 BP 134 / 63 (auto/); mlc 01:32 BP 131 / 63 (auto/); mlc 01:32 Pulse 82 MON; Pulse Ox 93% ; mlc 01:47 Pulse 82 MON; Pulse Ox 93% ; mlc 01:47 BP 125 / 70 (auto/); mlc 02:02 BP 142 / 66 (auto/); mlc 02:02 Pulse 82 MON; Pulse Ox 97% ; mlc 02:17 Pulse 80 MON; Pulse Ox 95% ; mlc 02:17 BP 154 / 67 (auto/); mlc 02:32 Pulse 82 MON; Pulse Ox 95% ; mlc 02:32 BP 163 / 67 (auto/); mlc 02:47 BP 145 / 65 (auto/); mlc 02:47 Pulse 80 MON; Pulse Ox 94% ; mlc 03:02 Pulse 80 MON; Pulse Ox 92% ; mlc 03:02 BP 124 / 60 (auto/); mlc 03:04 Pulse 80 MON; Pulse Ox 89% ; mlc 03:17 Pulse 80 MON; Pulse Ox 94% ; mlc 03:17 BP 129 / 58 (auto/); mlc 03:32 Pulse 82 MON; Pulse Ox 97% ; mlc 03:32 BP 149 / 87 (auto/); mlc 03:47 BP 140 / 61 (auto/); mlc 03:47 Pulse 80 MON; Pulse Ox 93% ; mlc 04:02 BP 141 / 62 (auto/); mlc 04:09 Pulse 78 MON; Pulse Ox 96% ; mlc 04:17 Pulse 80 MON; Pulse Ox 96% ; mlc 04:17 BP 136 / 61 (auto/); mlc 04:32 Pulse 82 MON; Pulse Ox 94% ; mlc 04:32 BP 148 / 65 (auto/); mlc 04:47 Pulse 80 MON; Pulse Ox 94% ; mlc 04:47 BP 150 / 68 (auto/); mlc 05:02 BP 150 / 68 (auto/); mlc 05:02 Pulse 80 MON; Pulse Ox 94% ; mlc 05:10 Pain 8/10; mlc 05:17 Pulse 78 MON; Pulse Ox 96% ; mlc 05:17 BP 156 / 82 (auto/); mlc 05:32 Pulse 78 MON; Pulse Ox 95% ; mlc 05:32 BP 140 / 64 (auto/); mlc 05:46 Temp 97.4; mlc 05:47 Pulse 78 MON; Pulse Ox 95% ; mlc 05:47 BP 140 / 65 (auto/); mlc 06:02 Pulse 78 MON; Pulse Ox 96% ; mlc 06:02 BP 127 / 60 (auto/); mlc 06:17 BP 128 / 60 (auto/); mlc 06:17 Pulse 80 MON; Pulse Ox 96% ; mlc 05/13 22:17 Body Mass Index 42.91 (124.28 kg, 170.18 cm) gr2 MDM: 05/13 22:24 Accucheck ordered. rs3 22:42 Fingerstick Blood Sugar Ordered. EDMS 22:46 -Blood Culture (Adults Only), peripheral from different site, or from device/port/PICC mm11 etc. if present ordered. 22:46 Call Respiratory ordered. mm11 22:46 Architect Manager/Pulse Ox/q 15 min VS ordered. mm11 22:46 Oxygen at 4L/Min NC or Home dosage ordered. mm11 22:46 Rhythm Strip to chart ordered. mm11 22:46 Accucheck hourly ordered. mm11 22:46 heparin 100units/mL flush (infusaport) 5 ml IVP once; flush first with 10mL of NS mm11 followed by heparin ordered. 22:46 Access Infusaport ordered. mm11 22:46 NS 0.9% 500 ml IV at bolus once ordered. mm11 22:47 -Arterial Blood Gas Ordered. EDMS 22:47 Basic Metabolic Profile Ordered. EDMS 22:47 CBC with Diff Ordered. EDMS 22:47 Cardiac Injury Profile Ordered. EDMS 22:47 Troponin Ordered. EDMS 22:47 Osmolality, Serum Ordered. EDMS 22:47 -Blood Culture Ordered. EDMS 22:48 Chest, 1 View Ordered. EDMS 22:48 ECG WITH READING ER PHYS+CARDIAG ordered. EDMS 22:51 Call Respiratory complete. ml3 22:51 -Blood Culture (Adults Only), peripheral from different site, or from device/port/PICC ml3 etc. if present complete. 22:52 BLOOD CULTURES Ordered. EDMS 23:04 Financial registration complete. [email or web address] 23:13 [facility] [place] Payment Agreement was scanned into bttn and attached to record. [email or web address] 23:24 Fingerstick Blood Sugar Reviewed. mm11 23:24 -Arterial Blood Gas Reviewed. mm11 23:55 DIFFERENTIAL NO CHARGE Ordered. EDMS 05/14 00:12 Fingerstick Blood Sugar Ordered. EDMS 00:15 CBC with Diff Reviewed. mm11 00:15 Fingerstick Blood Sugar Reviewed. mm11 00:15 PLATELET ESTIMATE Reviewed. mm11 00:50 Basic Metabolic Profile Reviewed. mm11 00:50 Osmolality, Serum Reviewed. mm11 00:50 Cardiac Injury Profile Reviewed. mm11 00:50 Troponin Reviewed. mm11 00:51 Insulin Regular Human 10 units IVP once ordered. mm11 00:57 Fingerstick Blood Sugar Ordered. EDMS 01:05 Fingerstick Blood Sugar Reviewed. mm11 01:58 Insulin Regular Human 10 units IVP once ordered. mm11 01:58 CT Chest Without Contrast Ordered. EDMS 02:36 fentaNYL (PF) 50 mcg IVP once ordered. mm11 02:36 Al ordered. mm11 03:02 Fingerstick Blood Sugar Ordered. EDMS 03:06 Fingerstick Blood Sugar Reviewed. mm11 04:00 fentaNYL (PF) 50 mcg IVP once ordered. mm11 04:07 Fingerstick Blood Sugar Ordered. EDMS 04:44 Solu-MEDROL 125 mg IVP once ordered. mm11 04:45 Albuterol-Ipratropium 3 ml Inhalation once ordered. mm11 04:46 BED REQUEST+ADM ordered. EDMS 05:14 Fingerstick Blood Sugar Ordered. EDMS 05:29 Admission / Observation Status ordered. EDMS 05:29 CONSISTENT CARBOHYDRATES ordered. EDMS 05:30 RESPIRATORY PANEL Ordered. EDMS 05:30 SPUTUM CULTURE AND GRAM STAIN Ordered. EDMS 05:31 PHYSICAL THERAPY EVAL & TREAT ordered. EDMS Point of Care Testing: Blood Glucose: 00:06 Blood Glucose: 414 mg/dL; mlc 00:55 Blood Glucose: 371 mg/dL; mlc 01:50 Blood Glucose: 378 mg/dL; mlc 01:50 Blood Glucose: 381 mg/dL; mlc 02:52 Blood Glucose: 338 mg/dL; mlc 03:58 Blood Glucose: 323 mg/dL; mlc 05:09 Blood Glucose: 312 mg/dL; mlc Ranges: Administered Medications: 05/13 23:37 Drug: NS 0.9% 500 ml [sodium chloride 0.9 % intravenous solution] Route: IV; Rate: mlc bolus; Site: Implantable Access Device; 05/14 00:52 Follow up: IV Status: Completed infusion mlc 00:51 Drug: Insulin Regular Human 10 units [insulin regular human 100 unit/mL injection mlc solution (0.1 mL)] {Co-Signature: ko2 (Dayanna Smith RN).} Route: IVP; Site: Implantable Access Device; 00:52 Drug: heparin 100units/mL flush (infusaport) 5 ml [heparin flush (porcine) 100 unit/mL mlc in 0.9 % sodium chloride IV kit (5 mL)] Route: IVP; Site: Implantable Access Device; 02:09 Drug: Insulin Regular Human 10 units [insulin regular human 100 unit/mL injection mlc solution (0.1 mL)] {Co-Signature: [email or web address] (Miranda Cee RN).} Route: IVP; Site: Implantable Access Device; 03:04 Drug: fentaNYL (PF) 50 mcg [fentanyl (PF) 50 mcg/mL injection solution (1 mL)] Route: mlc IVP; Site: Implantable Access Device; 04:23 Drug: fentaNYL (PF) 50 mcg [fentanyl (PF) 50 mcg/mL injection solution (1 mL)] Route: mlc IVP; Site: Implantable Access Device; 05:10 Follow up: Pain 11/11 Adult; Response: Pain is decreased [facility] 05:09 Drug: Solu-MEDROL 125 mg [Solu-Medrol 500 mg intravenous solution (125 mg)] Route: IVP; [facility] [place] Site: Implantable Access Device; 05:15 Drug: Albuterol-Ipratropium 3 ml [ipratropium-albuterol 0.5 mg-3 mg(2.5 mg base)/3 mL lf2 nebulization soln (3 mL)] Route: Inhalation; Signatures: Dispatcher [employer] EDMS Deepthi Merlos, Flight Line Mechanic Unit ml3 Placido Arredondo, DO DO mm11 Minnie Schaffer RN RN 3 Vilma Farris RN RN [facility] [place] Daniela Mace, Reg Reg ks16 Erick Van RN RN sa Frederick, Lisa RT lf2 Dayanna Smith RN ko2 Miranda Cee RN ld5 The chart was reviewed and I authenticate all verbal orders and agree with the evaluation and treatment provided.Corrections: (The following items were deleted from the chart) 05/13 23:37 22:46 IV Saline Lock ordered. mm11 [facility] [place] Attachments: 23:13 [facility] Payment Agreement [email or web address] MTDD
[2016-05-14] MEDS ORDERED: DOCUSATE SODIUM 100 MG CAP PO PRN (06:30)
[2016-05-14] MEDS ORDERED: MOM 30ML SUSPENSION UDC PO PRN (06:30)
[2016-05-14] MEDS ORDERED: PROMETHAZINE 25 MG TAB PO PRN (06:30)
[2016-05-14] MEDS ORDERED: METOCLOPRAMIDE 10 MG TAB PO PRN (06:30)
[2016-05-14 06:40] VITALS: BP 148/66
[2016-05-14] MEDS ORDERED: SENNA 8.6 MG TAB (SENOKOT) PO PRN (06:45)
[2016-05-14] MEDS ORDERED: ALBUTEROL SULFATE 2.5 MG/0.5 ML INH NEB SOLN NEB PRN (07:30)
[2016-05-14] MEDS: IPRATROPIUM 0.5MG/ALBUTEROL 2.5MG INH SOL UD 3ML (DUONEB)(J7620) NEB SCH ×3 (08:09→20:11)
[2016-05-14] MEDS: BUDESONIDE 0.5 MG/2 ML INHALATION SUSPENSION INH SCH ×2 (08:09→20:11)
--- NOTE | 2016-05-14 08:26 | REP ---
Portable chest, 11:19 p.m., single AP view, the patient semi upright: Comparison is 03/07/2016. Cardiomegaly is again noted, unchanged. Elevation of the right hemidiaphragm is again noted, unchanged. There is a an indwelling right IJ central venous catheter, unchanged. There is minor atelectasis in the lung bases. The remainder of the lung diaz are clear. Signed by Sami Richter MD 05/14/2016 08:16 A
[2016-05-14] MEDS: HumaLOG INSULIN (NovoLOG) PER UNIT SC SCH ×3 (08:46→17:14)
[2016-05-14] MEDS: LEVEMIR (INSULIN DETEMIR) 1 UNITS/0.01ML SC SCH ×2 (08:46→18:05)
[2016-05-14] MEDS: BISOPROLOL FUM 2.5 MG PER 1/2TAB PO SCH (08:47)
[2016-05-14] MEDS: HEPARIN SOD (PORCINE) 5000 UNITS/ML VIAL SC SCH ×3 (08:47→21:52)
[2016-05-14] MEDS: guaiFENesin ER 600 MG TAB PO SCH ×2 (08:47→21:50)
[2016-05-14] MEDS: SUCRALFATE SUSP 1GM/10ML UD PO SCH ×2 (08:47→21:49)
[2016-05-14] MEDS: levETIRAcetam 250MG TABLET (KEPPRA) PO SCH ×4 (08:48→21:50)
[2016-05-14] MEDS: ASPIRIN 81 MG ENTERIC TAB PO SCH (08:48)
[2016-05-14] MEDS: BACLOFEN 10 MG TAB PO SCH ×2 (08:48→21:51)
[2016-05-14] MEDS: OMEPRAZOLE 20 MG CAP PO SCH (08:48)
[2016-05-14] MEDS: FERROUS SULFATE 325MG TAB PO SCH ×2 (08:49→21:50)
[2016-05-14] MEDS ORDERED: BACLOFEN 10 MG TAB PO SCH (09:00)
[2016-05-14] MEDS ORDERED: PREGABALIN 50 MG CAP (LYRICA) PO SCH (09:00)
[2016-05-14] MEDS ORDERED: FERROUS SULFATE 325MG TAB PO SCH (09:00)
[2016-05-14] MEDS ORDERED: VERAPAMIL 120 MG SR TAB PO SCH (09:00)
[2016-05-14] MEDS ORDERED: AZITHROMYCIN INJ 500 MG, VIAL MATE ADAPTER 1 EACH in D5W 250 ML IV SCH (09:00)
[2016-05-14] MEDS ORDERED: BREO1INH INH (10:45)
[2016-05-14] MEDS ORDERED: PROA1AER INH (10:45)
[2016-05-14] MEDS ORDERED: FIOR1CAP2 PO (10:47)
[2016-05-14] MEDS: LACTULOSE 20 GM/30 ML SYRUP UD PO PRN ×2 (11:03→22:00)
[2016-05-14] MEDS: COLCHICINE 0.6 MG TAB PO SCH (11:58)
[2016-05-14] MEDS: PREGABALIN 100 MG CAP (LYRICA) PO SCH ×3 (11:58→21:49)
[2016-05-14] MEDS: FLUoxetine 20 MG CAP PO SCH (11:58)
[2016-05-14 14:00] VITALS: BP 124/58
[2016-05-14] MEDS: ACETAMINOPHEN 325 MG TAB PO PRN ×2 (14:38→18:19)
[2016-05-14] MEDS ORDERED: HumaLOG INSULIN (NovoLOG) PER UNIT SC ONE (18:00)
[2016-05-14 18:14] LABS: ANION GAP 12 MEQ/L (8-16); BLOOD UREA NITROGEN 31 MG/DL (7-18); CALCIUM LEVEL 8.7 MG/DL (8.8-10.2); CARBON DIOXIDE LEVEL 25 MEQ/L (21-32); CHLORIDE LEVEL 95 MEQ/L (98-107); CREATININE FOR GFR 2.01 MG/DL (0.55-1.02); POTASSIUM SERUM 5.1 MEQ/L (3.5-5.1); SODIUM LEVEL 132 MEQ/L (136-145)
[2016-05-14] MEDS ORDERED: SODIUM CHLORIDE 0.9% 1000 ML IV ONE (18:45)
[2016-05-14] MEDS ORDERED: GLUCAGON FOR INJ 1 MG VIAL (J1610) SC PRN (20:45)
[2016-05-14] MEDS ORDERED: GLUCOSE 4 GM CHEW TABLET PO PRN (20:45)
[2016-05-14] MEDS ORDERED: DEXTROSE 50% 50 ML SYRINGE IV PRN (20:45)
[2016-05-14 21:00] VITALS: BP 123/56
[2016-05-14] MEDS ORDERED: HumaLOG INSULIN (NovoLOG) PER UNIT SC SCH (21:00)
[2016-05-14] MEDS: NS 1,000 ML IV SCH (21:05)
--- NOTE | 2016-05-14 21:22 | ECGEPIP ---
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
[2016-05-14] MEDS ORDERED: HumaLOG INSULIN (NovoLOG) PER UNIT SC STA (21:47)
[2016-05-14 23:00] VITALS: BP 129/61
[2016-05-14] MEDS: INSULIN HUMAN REGULAR 100 UNITS in NS 99 ML IV SCH (23:00)
[2016-05-14 23:09] LABS: ABG BASE EXCESS -2.1 (-2.0-2.0); ABG HCO3 24.9 MEQ/L (22.0-26.0); ABG PARTIAL PRESSURE CO2 53.1 mmHg (35.0-45.0); ABG PARTIAL PRESSURE O2 73.1 mmHg (75.0-100.0); ABG STANDARD HCO3 22.6 MEQ/L (22.0-26.0); ABG TOTAL CO2 26.5 MEQ/L (23.0-31.0); ABG pH (ARTERIAL) 7.289 UNITS (7.350-7.450)
[2016-05-14 23:35] LABS: CREATININE FOR GFR 2.11 MG/DL (0.55-1.02); GLOMERULAR FILTRATION RATE 24.6 (>39); POTASSIUM SERUM 4.8 MEQ/L (3.5-5.1)
[2016-05-15] VITALS (8 sets, daily range): BP systolic 113–135; BP diastolic 56–63; O2SAT 97
[2016-05-15] MEDS: IPRATROPIUM 0.5MG/ALBUTEROL 2.5MG INH SOL UD 3ML (DUONEB)(J7620) NEB SCH ×5 (01:54→23:44)
[2016-05-15 02:45] LABS: CALCIUM LEVEL 8.7 MG/DL (8.8-10.2); CREATININE FOR GFR 2.13 MG/DL (0.55-1.02); GLOMERULAR FILTRATION RATE 24.3 (>39); POTASSIUM SERUM 4.3 MEQ/L (3.5-5.1)
[2016-05-15] MEDS: INSULIN IV RATE CHANGE DOCUMENTATION ML/HR XX SCH ×4 (03:01→09:12)
[2016-05-15] MEDS: HEPARIN SOD (PORCINE) 5000 UNITS/ML VIAL SC SCH ×3 (06:36→21:51)
[2016-05-15] MEDS: NS 1,000 ML IV SCH ×3 (06:37→18:58)
[2016-05-15] MEDS: INSULIN HUMAN REGULAR 100 UNITS in NS 99 ML IV SCH (07:44)
[2016-05-15] MEDS: BUDESONIDE 0.5 MG/2 ML INHALATION SUSPENSION INH SCH ×2 (08:18→21:07)
[2016-05-15] MEDS: SUCRALFATE SUSP 1GM/10ML UD PO SCH ×2 (08:34→20:46)
[2016-05-15] MEDS: levETIRAcetam 250MG TABLET (KEPPRA) PO SCH ×4 (08:34→20:48)
[2016-05-15] MEDS: PREGABALIN 100 MG CAP (LYRICA) PO SCH ×3 (08:34→20:48)
[2016-05-15] MEDS: guaiFENesin ER 600 MG TAB PO SCH ×2 (08:35→20:47)
[2016-05-15] MEDS: ASPIRIN 81 MG ENTERIC TAB PO SCH (08:35)
[2016-05-15] MEDS: OMEPRAZOLE 20 MG CAP PO SCH (08:35)
[2016-05-15] MEDS: FLUoxetine 20 MG CAP PO SCH (08:35)
[2016-05-15] MEDS: FERROUS SULFATE 325MG TAB PO SCH ×2 (08:35→20:48)
[2016-05-15 08:37] LABS: ABG BASE EXCESS -0.6 (-2.0-2.0); ABG HCO3 26.9 MEQ/L (22.0-26.0); ABG PARTIAL PRESSURE CO2 58.5 mmHg (35.0-45.0); ABG PARTIAL PRESSURE O2 189.5 mmHg (75.0-100.0); ABG TOTAL CO2 28.7 MEQ/L (23.0-31.0)
[2016-05-15] MEDS ORDERED: AZITHROMYCIN 250 MG TAB PO SCH (09:00)
[2016-05-15] MEDS: BISACODYL 10 MG SUPP PR SCH (09:00)
[2016-05-15] MEDS ORDERED: predniSONE 20 MG TAB PO SCH (09:00)
[2016-05-15] MEDS: BACLOFEN 10 MG TAB PO SCH ×2 (09:51→20:46)
[2016-05-15] MEDS: COLCHICINE 0.6 MG TAB PO SCH (09:51)
[2016-05-15] MEDS: BISOPROLOL FUM 2.5 MG PER 1/2TAB PO SCH (09:51)
[2016-05-15] MEDS: cefTRIAXone SOD 1 GM in D5W MINI-BAG PLUS 50 ML IV SCH (10:36)
[2016-05-15 11:38] LABS: MEAN CORPUSCULAR HEMOGLOBIN 24.8 pg (27.0-33.0); MEAN CORPUSCULAR VOLUME 82.8 fl (80.0-96.0); RED CELL DISTRIBUTION WIDTH 18.6 % (11.5-14.5); WHITE BLOOD COUNT 6.6 K/mm3 (4.0-10.0)
[2016-05-15 11:45] LABS: ABG BASE EXCESS -1.9 (-2.0-2.0); ABG HCO3 24.5 MEQ/L (22.0-26.0); ABG PARTIAL PRESSURE CO2 48.6 mmHg (35.0-45.0); ABG PARTIAL PRESSURE O2 57.4 mmHg (75.0-100.0); ABG STANDARD HCO3 22.7 MEQ/L (22.0-26.0)
[2016-05-15 11:54] LABS: CALCIUM LEVEL 9.1 MG/DL (8.8-10.2); CREATININE FOR GFR 1.7 MG/DL (0.55-1.02); GLOMERULAR FILTRATION RATE 31.5 (>39); MAGNESIUM LEVEL 2.6 MG/DL (1.8-2.4); POTASSIUM SERUM 3.9 MEQ/L (3.5-5.1)
[2016-05-15 12:05] LABS: FREE T4 1.03 NG/DL (0.76-1.46)
[2016-05-15] MEDS: LEVEMIR (INSULIN DETEMIR) 1 UNITS/0.01ML SC SCH ×2 (12:34→20:49)
--- NOTE | 2016-05-15 13:10 | CR ---
DATE OF CONSULTATION: 05/15/2016 CRITICAL CARE CARDIOLOGY CONSULTATION: REASON FOR CONSULTATION: Hypercapnic respiratory failure. Primary attending is Dr. Story requesting evaluation at bedside urgently due to hypercarbia. Critical care time was 1 hour. This excludes all procedures. HISTORY OF PRESENT ILLNESS: Ms. 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 She presented to the emergency room with a chief complaint of dyspnea and a nonproductive cough, was found to be significantly hyperglycemic with blood sugars up into the 800 range. She had a normal arterial blood gas on admission, however oxygen was administered. She was found to be hypercarbic, however was actually transferred to the intensive care unit (ICU) because of her hyperglycemia. This morning, after her oxygen had been removed, I went into see her, she was quite talkative. She did not appear short of breath and first glance, she is receiving intravenous (IV) fluids. Despite attempts to get a history, she states "I can't remember." Despite being quite talkative, she was unable to provide me with any significant relevant details of her medical history. She was able to tell me about her home situation but has very poor insight into her past medical history. She states she believes she may have chronic obstructive pulmonary disease (COPD). She is not sure if she has hepatitis C or not, and that she sees Dr. Del Cid for sleep apnea. However, she states her most recent testing was done by neurology. Her review of systems is nearly positive for every question as outlined below. PAST MEDICAL HISTORY: Obtained from the chart and is positive for: 1. Morbid obesity. 2. 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 3. Obstructive sleep apnea. 4. Chronic kidney stage III. 5. 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 6. History of deep venous thrombosis (DVT) status post inferior vena cava (IVC) filter. She states she is not on anticoagulation due to a significant gastrointestinal (GI) bleed on Xarelto. She was told to never take anticoagulation. 7. History of diastolic heart failure. She states she is unaware of any history of heart disease. 8. Diabetes with poor sugar control, poor diet and high carbohydrate diet. 9. History of recurrent urinary tract infection (UTI). 10. Prior "back surgery." 11. "Hiatal hernia surgery." 12. Carpal tunnel surgery. 13. Right rotator cuff surgery. 14. Hysterectomy. 15. Left ankle fracture. CURRENT MEDICATIONS: Include: - ceftriaxone - Zofran - heparin - DuoNebs - Mucinex - Tylenol - aspirin - Zebeta - Colace - Milk of Magnesia - Carafate - Prilosec - Reglan - Phenergan - baclofen - Keppra - Prozac - Zithromax - Pulmicort - Lyrica - colchicine - Dulcolax ALLERGIES: Include CEPHALOSPORINS, CHLORPROMAZINE, FLUTICASONE, IODINE, LASIX, LORATADINE, METHADONE, PENICILLIN, PENICILLIN CROSS-REACTORS, PENTAZOCINE, PROMETHAZINE, and SULFA ANTIBIOTICS. SOCIAL HISTORY: The patient is a lifetime nonsmoker. No alcohol use. She lives with her . She has a home health aide that comes to her home Tuesday through Tuesday to help her with care. FAMILY HISTORY: She has a brother with heart disease. A sister with coronary artery disease who had CABG. REVIEW OF SYSTEMS: Is fairly unreliable. She had a positive answer for almost every question. In general, she said she has had no change in her weight but is having trouble losing weight. She states she had fevers but was unable to specifically identify a fever and they are off and on continuously she says. She also has shaking chills, which she states happen intermittently. HEENT: She is complaining of blurry vision. However, she is not sure if that is new. Se has had no epistaxis. She states she has difficulty swallowing, mostly difficulty swallowing the meat. Complains of sore throat. Has dentures. Cardiac: She complains of nonanginal chest discomfort located in the center of her chest underneath her sternum. However, she does state it radiates to her neck and jaw. She does not get diaphoretic with this. It is not exertional in nature, It is just chronically there. She has orthopnea and paroxysmal nocturnal dyspnea (PND), and lower extremity edema and calf pain. Pulmonary: States she has no personal history of tuberculosis (TB). Her sister had active tuberculosis and was in a sanitarium. She states she was exposed to her during her acute onset of the disease and does not remember if she took any medication for it. She has had no hemoptysis. No history of lung mass, lung cancer. No pleuritic chest discomfort. Gastrointestinal: She has chronic nausea chronic constipation. No diarrhea. Currently no blood in stool. Although, she has a history of GI bleed on anticoagulation. No history of pancreatitis. Genitourinary: Frequent urination. No dysuria. She has chronic urinary tract infections. She has nocturia. Endocrine: Positive for diabetes under very poor control. I assume she has been checked for hypothyroidism. However, I do not have any of the staff available currently, and she is not on any thyroid supplementation. She complains of polyuria, polydipsia intolerance to hot and cold. Neurologic: She states she has been shaking, knocking things over. Positive history of tremors. Positive history of seizure disorder. Chronically weak. Unable to ambulate. She states at most she will pivot to her wheelchair. Sleep: Known obstructive sleep apnea. Last sleep study a year ago, performed by neurology. Environmental allergies: Complains of environmental allergies. Is unable to identify every allergy. She has chronic urinary tract infections but no history of immunodeficiency. There is some question of whether she truly has hepatitis C or not. PHYSICAL EXAMINATION: Temperature is 98.3, pulse is 78, respiratory rate is 22, blood pressures 128/57 with an oxygen saturation of 98% on room air. General: Patient is extremely talkative. Does not appear to be in respiratory distress. Is not coughing during exam. She has a fan on her. HEENT: Sclerae clear and anicteric. Pupils equal, reactive to light. Mucous membranes are moist without lesions. She has upper and lower dentures in place. Mallampati 4. Tongue is midline without lesions. Neck is supple. Thick circumference. Difficult to assess jugular venous pulse (JVP) due to her body habitus. Lymphatics: No cervical, supraclavicular or axillary adenopathy. Cardiac: Distant S1,S2. Without audible murmur, rub or gallop. No elevated JVP. She does have significant peripheral edema pitting to her midthigh. Pulmonary: There is an expiratory wheeze and that is starts during mid exhalation. No dullness to percussion. Poor chest expansion. Abdomen is obese, soft, nontender, nondistended. No discernible hepatosplenomegaly. No masses or hernia. Extremities: Significant edema as mentioned above. Well-healed scar over the left ankle. No cyanosis or clubbing. Skin is pale without rash, jaundice or bruising. Musculoskeletal: Some muscle weakness. Neurologic: No tremor. No evidence of paralysis. LABORATORY EVALUATION: Shows white count is normal at 8.1, hemoglobin 12.0, platelet count of 246. Sodium is 134, potassium 4.3, chloride 99, bicarbonate of 24 with a BUN of 35, creatinine of 2.13. Troponin was negative on admission. Blood cultures have no growth so far times two. Fingerstick blood glucose is now down to 346. Chest CT shows cardiomegaly and dynamic airway collapse, very minimal pleural effusions versus pleural thickening. There is some vascular congestion without any dense infiltrate or mass. IMPRESSION: 1. Hypercarbic respiratory failure likely secondary to hypoventilation and oxygen administration. After discontinuing oxygen, the arterial blood gas is already starting to improve. At this point in time, she is showing no signs of respiratory distress. Therefore, I would not initiate any ventilatory assistance and continue to monitor for respiratory decline. She should continue to use her continuous positive airway pressure (CPAP) at night as prescribed. As part of her hypoventilation syndrome and obesity, I have ordered thyroid studies especially given the fact that she is diabetic. I would express caution with IV fluid administration. Despite the fact that she is hyperglycemic and having high urine output, she has systemic edema. This may be the cause of her increased dyspnea. 2. Acute on chronic renal impairment. 3. History of PE: Recommended continuation of DVT prophylaxis in the form of heparin. Given her history of pulmonary embolism, despite the fact that she has an IVC filter, ultimately she should be on full dose anticoagulation. However, she had a life-threatening gastrointestinal bleed and it has been previously recommended that she does not have prolonged systemic anticoagulation. She continues to run the risk of thrombosis despite an IVC filter being placed. Thank you for this consultation. Please feel free to call with any questions or concerns. JOSE R
--- NOTE | 2016-05-15 14:25 | IPNPDOC ---
Subjective General Date Seen The patient was seen on 05/15/16. Subjective Chief Complaint/HPI The patient is a 70-year-old female admitted with a reason for visit of Copd Exacerbation. Events since last encounter continues to complain of dyspnea, complains of extreme weakness, and generally not feeling well, complains of dysuria, also had low grade fever yesterday. has a very dirty urine. sugars are better controlled with iv insulin infusion, denies any chest pain or cough , denies any abdominal pain nausea or vomiting , has severe constipation. Objective Physical Examination General Exam: Positive: Alert, Cooperative, No Acute Distress ENT Exam: Positive: Atraumatic, Mucous membr. moist/pink Chest Exam: Positive: Clear to auscultation, Diminished, Negative: Rales, Rhonchi Heart Exam: Positive: Normal S1, Normal S2, Rate Normal Telemetry: Positive: No significant arrhythmia Abdomen Exam: Positive: Soft, Negative: Tenderness Extremity Exam: Negative: Clubbing, Cyanosis, Edema, Normal pulses, Other, Swelling, Tenderness Assessment /Plan Problems Problems: (1) Diabetes mellitus with hyperglycemia, with long-term current use of insulin Status: Acute Problem Text: uncontrolled sugars greater than 700 without ketosis or without coma. on insulin infusion now improving switched to sq insulin. continue with ivf but will reduce dose. (2) Acute on chronic respiratory failure with hypoxia and hypercapnia Status: Acute Problem Text: improved with decrease in oxygenation (3) MATT on CPAP Status: Chronic Problem Text: will continue cpap (4) UTI (urinary tract infection) Status: Acute Problem Text: will start ceftriaxone. 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 Plan/VTE VTE Prophylaxis Ordered?: Yes VS, I&O, 24H, Fishbone Vital Signs/I&O Vital Signs Date Time Temp Pulse Resp B/P Pulse Ox O2 Delivery O2 Flow Rate FiO2 05/15/16 08:00 Nasal Cannula 2.0 05/15/16 08:00 98.2 80 16 128/58 98 I&O- Last 24 Hours up to 6 AM 05/15/16 05:59 Intake Total 3244 ml Output Total 3575 ml Balance -331 ml Laboratory Data 24H LABS Laboratory Tests 2 05/14/16 17:00: Bedside Glucose (Misc Panel) > 600*H 05/14/16 17:02: Bedside Glucose (Misc Panel) > 600*H 05/14/16 17:13: Anion Gap 12, Bedside Glucose Confirm (Misc) 707*H, Blood Urea Nitrogen 31H, Creatinine 2.01H, Sodium Level 132L, Potassium Level 5.1#, Chloride Level 95L, Carbon Dioxide Level 25, Calcium Level 8.7L, Glomerular Filtration Rate 26.0L 05/14/16 20:30: Bedside Glucose (Misc Panel) > 600*H 05/14/16 20:52: Bedside Glucose Confirm (Misc) 772*H 05/14/16 22:33: Bedside Glucose (Misc Panel) > 600*H 05/14/16 22:50: Arterial Blood pH 7.289L, Arterial Blood Partial Pressure CO2 53.1H, Arterial Blood Partial Pressure O2 73.1L, Arterial Blood Total CO2 26.5, Arterial Blood HCO3 24.9, Arterial Blood Base Excess -2.1L, Arterial Blood Oxygen Saturation 92.9L, Blood Gas Bicarbonate Standard 22.6 05/14/16 23:03: Anion Gap 12, Blood Urea Nitrogen 34H, Creatinine 2.11H, Sodium Level 133L, Potassium Level 4.8, Chloride Level 96L, Carbon Dioxide Level 25, Calcium Level 8.0L, Glomerular Filtration Rate 24.6L 05/14/16 23:09: Urine Amorphous Sediment , Urine Appearance HAZY, Urine Color STRAW, Urine pH 6.0, Urine Specific [place] 1.016, Urine Protein NEGATIVE, Urine Glucose (UA) 3+ H, Urine Ketones NEGATIVE, Urine Urobilinogen 0.2, Urine Bilirubin NEGATIVE, Urine Leukocyte Esterase 3+H, Urine Bacteria (Auto) NEGATIVE, Urine Blood NEGATIVE, Urine Calcium Carbonate Cryst(Auto) , Urine Calcium Oxalate Cryst ( Auto) , Urine Calcium Phosphate [place] (Auto) , Urine Cellular Casts , Urine Cystine Crystals , Urine Granular Casts (Auto) , Urine Hyaline Casts (Auto) 0, Urine Leucine Crystals , Urine Mucus (Auto) SMALL, Urine Nitrite NEGATIVE, Urine Oval Fat Bodies (Auto) , Urine RBC (Auto) 5H, Urine Renal Epithelial Cells , Urine Sperm (Auto) , Urine Squamous Epithelial Cells 0, Urine Transitional Epithelial Cells , Urine Trichomonas (Auto) , Urine Triple Phosphate Cryst (Auto) , Urine Tyrosine Crystals , Urine Uric Acid Crystals ( Auto) , Urine WBC (Auto) 117H, Urine Waxy Casts (Auto) , Urine Yeast-Like Cells (Auto) 05/14/16 23:58: Bedside Glucose (Misc Panel) > 600*H 05/14/16 23:59: Bedside Glucose Confirm (Misc) 701*H 05/15/16 01:53: Bedside Glucose (Misc Panel) > 600*H 05/15/16 02:05: Anion Gap 11, Bedside Glucose Confirm (Misc) 683*H, Blood Urea Nitrogen 35H, Creatinine 2.13H, Sodium Level 134L, Potassium Level 4.3, Chloride Level 99, Carbon Dioxide Level 24, Calcium Level 8.7L, Glomerular Filtration Rate 24.3L 05/15/16 03:16: Bedside Glucose (Misc Panel) > 600*H 05/15/16 03:33: Bedside Glucose Confirm (Misc) 580*H 05/15/16 05:00: Bedside Glucose (Misc Panel) 553*H 05/15/16 06:10: Bedside Glucose (Misc Panel) 482H 05/15/16 07:57: Bedside Glucose (Misc Panel) 396H 05/15/16 08:17: Arterial Blood pH 7.280L, Arterial Blood Partial Pressure CO2 58.5H, Arterial Blood Partial Pressure O2 189.5H, Arterial Blood Total CO2 28.7, Arterial Blood HCO3 26.9H, Arterial Blood Base Excess -0.6, Arterial Blood Oxygen Saturation 99.2H, Blood Gas Bicarbonate Standard 24.0 05/15/16 09:09: Bedside Glucose (Misc Panel) 346H 05/15/16 11:06: Bedside Glucose (Misc Panel) 277H 05/15/16 11:21: Anion Gap 10, Blood Urea Nitrogen 34H, Creatinine 1.70H, Sodium Level 143#, Potassium Level 3.9, Chloride Level 107, Carbon Dioxide Level 26, Calcium Level 9.1, Free Thyroxine 1.03, Glomerular Filtration Rate 31.5L, Magnesium Level 2.6H , Thyroid Stimulating Hormone (TSH) 1.100 05/15/16 11:33: Arterial Blood pH 7.320L, Arterial Blood Partial Pressure CO2 48.6H, Arterial Blood Partial Pressure O2 57.4L, Arterial Blood Total CO2 26.0, Arterial Blood HCO3 24.5, Arterial Blood Base Excess -1.9, Arterial Blood Oxygen Saturation 87.7L, Blood Gas Bicarbonate Standard 22.7 05/15/16 12:05: Bedside Glucose (Misc Panel) 228H CBC/BMP Laboratory Tests 05/14/16 17:13 Calcium Level 8.7 L 05/14/16 23:03 Calcium Level 8.0 L 05/15/16 02:05 Calcium Level 8.7 L 05/15/16 11:21 Calcium Level 9.1, Red Blood Count 4.05, Mean Corpuscular Volume 82.8, Mean Corpuscular Hemoglobin 24.8 L, Mean Corpuscular Hemoglobin Concent 30.0 L, Red Cell Distribution Width 18.6 H Microbiology Microbiology 05/14/16 Blood Culture - Preliminary, Resulted No growth after 24 hours . All specim... 05/13/16 Blood Culture - Preliminary, Resulted No growth after 24 hours . All specim... 05/14/16 MRSA Screen, Received Pending 05/14/16 Urine Culture, Received Pending FAWAD SHEPPARD MD May 15, 2016 14:25
[2016-05-15] MEDS: HumaLOG INSULIN (NovoLOG) PER UNIT SC SCH ×2 (16:41→20:49)
[2016-05-15] MEDS: ACETAMINOPHEN 325 MG TAB PO PRN (20:47)
[2016-05-16 06:00] VITALS: BP 132/64
[2016-05-16] MEDS: HEPARIN SOD (PORCINE) 5000 UNITS/ML VIAL SC SCH ×3 (06:18→22:22)
[2016-05-16] MEDS: IPRATROPIUM 0.5MG/ALBUTEROL 2.5MG INH SOL UD 3ML (DUONEB)(J7620) NEB SCH ×3 (07:25→19:26)
[2016-05-16] MEDS: BUDESONIDE 0.5 MG/2 ML INHALATION SUSPENSION INH SCH ×2 (07:25→19:26)
--- NOTE | 2016-05-16 07:25 | EDDOCDS ---
Nurse's Notes [facility] Name: Maricarmen Stern Age: 70 yrs Sex: Female : 1945 Arrival Date: 05/13/2016 Time: 22:14 Bed 10 Private MD: Paulo Villalobos Diagnosis: Chronic obstructive pulmonary disease with (acute) exacerbation;Hypoxemia;Hyperglycemia, unspecified Presentation: 05/13 22:22 Presenting complaint: Patient states: been sleeping, tired all day, increased rs3 difficulty breathing sat 91%. high blood sugar 457 at home. FSBS 431 at triage. Adult Sepsis Screening: The patient does not have new or worsening altered mentation. Patient's respiratory rate is less than 22. Systolic blood pressure is greater than 100. Patient has a qSOFA score of 0- Negative Sepsis Screen. Suicide/Homicide risk assessment- the patient denies having any suicidal and/or homicidal ideations and does not present with any other emotional, behavioral or mental health complaints. Status: Patient is not a service delivery consultant or dependent. Transition of care: patient was not received from another setting of care. 22:22 Acuity: ARNOLD Level 3 rs3 22:22 Method Of Arrival: Wheelchair rs3 Triage Assessment: 22:31 General: Appears in no apparent distress. Pain: Denies pain. Respiratory: Onset: The rs3 symptoms/episode began/occurred gradually. Historical: - Allergies: CEPHALOSPORINS (Rash); Chlorpromazine (Rash); Doxycycline (Rash); Latex (Rash); loratadine (Rash); Methadone (Rash); Morphine (Rash); PENICILLINS (Rash); PENTAZOCINE (Rash); - Home Meds: 1. baclofen 20 mg Oral tab twice a day 2. bisoprolol fumarate 5 mg oral tab 0.5 tab once daily 3. Colace 100 mg oral cap 1 cap once daily 4. fluoxetine 20 mg Oral cap 1 cap once daily 5. metoclopramide HCl 10 mg Oral tab 1 tab once daily 6. omeprazole 20 mg Oral cpDR once daily 7. Zofran (as hydrochloride) 4 mg Oral tab daily 8. potassium chloride 10 mEq Oral cpER 1 cap once daily 9. promethazine 25 mg Oral tab 1 tab once daily 10. senna 8.6 mg oral tab 2 tabs once daily 11. spironolactone 25 mg Oral tab 1 tab once daily 12. torsemide 50 mg oral tab twice a day 13. pregabalin 50 mg Oral cap 1 cap 3 times per day 14. Amitiza 24 mcg oral cap 2 times per day 15. sucralfate 1 gram Oral tab 1 tab 2 times per day 16. Vitamin D Oral daily 17. Lantus 100 unit/mL Sub-Q crtg 78 unit twice a day 18. Novolog 100 unit/mL Sub-Q soln 16 unit before meals - PMHx: Asthma; blood clot in left leg; CHF; Diabetes - IDDM: controlled; Hypertension; Migraines; retenoiditis; paralyzed diaphragm; Seizures; Sleep Apnea w/ CPAP; - PSHx: Adeel Filter Placement; right knee surgery; right hip surgery; lung surgery; Hysterectomy; back surgery; left ankle surgery; - Social history: Smoking status: Patient states was never smoker of tobacco. No barriers to communication noted, The patient speaks fluent Kiswahili. - Family history: Not pertinent, No immediate family members are acutely ill. - : The pt / caregiver states he / she is not on anticoagulants. Home medication list is obtained from the patient. - Exposure Risk Screening:: None identified. Screenin:29 Infection Control. gr2 23:17 Screening information is obtained from the patient. Fall risk: At risk due to gait mlc disturbance. Abuse/DV Screen: The patient / caregiver reports he/she is:. Abuse/DV Screen: The patient / caregiver reports he/she is: not in a situation that causes fear, pain or injury. Nutritional screening: No deficits noted. home support is adequate. 05/14 00:55 Assistance ADL's: Requires assistance with meal preparation, this assistance is mlc provided by Home Health Aides, bathing, assistance is provided by Home Health Aides, dressing, assistance is provided by Home Health Aides, toileting, assistance is provided by family members, Home Health Aides, housework, assistance is provided by family members, medication administration, assistance is provided by family members. Advance Directives: Currently, there is a health care proxy, Andrzej Stern, santana. There is an active DNR order but there is no copy available at this time. There is a living will, but a copy is not available at this time. There is an active Power of Barrel Loader, Andrzej Stern, . Assessment: 05/13 23:37 General: Appears ill, Behavior is appropriate for age, cooperative, pleasant. Pain: mlc Location: thoracic area and low back area Pain currently is 8 out of 10 on a pain scale. Neurological: Level of Consciousness is awake, alert, Oriented to person, place, time. Cardiovascular: Capillary refill < 3 seconds Heart tones S1 S2 present Rhythm is Chest pain is denied. 23:40 Cardiovascular: Rhythm is regular. Respiratory: Airway is patent Respiratory effort is mlc labored, Respiratory pattern is regular, Breath sounds are diminished bilaterally. Reports shortness of breath at rest. GI: Abdomen is obese, Denies nausea. Derm: Skin is dry, Skin is normal. 05/14 00:06 Reassessment: Patient appears in no apparent distress at this time. Patient states mlc symptoms have not improved. IV fluids infusing per order. pt eating ice chips. at bedside. 00:53 Reassessment: Patient appears in no apparent distress at this time. pt repositioned for mlc comfort. IV fluids complete. pt medicated per order. . 01:50 General: Appears in no apparent distress, comfortable, to be sleeping. Respiratory: mlc Airway is patent Respiratory effort is even, unlabored. Derm: Skin is normal. 02:10 Reassessment: Patient appears in no apparent distress at this time. pt medicated per mlc order. 03:04 Reassessment: pt c/o back and leg pain. pt medicated per order. pt resting at this mlc time, lights dimmed for comfort. . 04:11 Reassessment: Patient appears in no apparent distress at this time. pt reports no mlc decrease in pain. pt resting comfortably in bed, resp easy/unlabored. . 04:23 General: pt medicated per order. pt repositioned for comfort. . mlc 05:10 General: Dr. Panchal at bedside. pt resting comfortably in bed. pain rated 8/10 but pt mlc states she is comfortable. 06:19 General: Appears in no apparent distress, comfortable, Behavior is cooperative, mlc pleasant. Neurological: Level of Consciousness is awake, alert, obeys commands, Oriented to person, place, time. Respiratory: Airway is patent Respiratory effort is even, unlabored, Respiratory pattern is regular. Derm: Skin is normal. Vital Signs: 05/13 22:17 BP 157 / 55; Pulse 78; Resp 20 S; Temp 95.9(O); Pulse Ox 95% on R/A; Weight 124.28 kg gr2 (R); Height 5 ft. 7 in. (170.18 cm) (R); Pain 05/14; 23:17 BP 135 / 63 (auto/); mlc 23:17 Pulse 74 MON; Pulse Ox 94% ; mlc 23:40 Pulse 74 MON; Pulse Ox 94% ; mlc 23:47 BP 175 / 78 (auto/); mlc 23:47 Pulse 74 MON; Pulse Ox 94% ; mlc 05/14 00:05 Pulse 76 MON; Pulse Ox 96% ; mlc 00:17 BP 142 / 63 (auto/); mlc 00:17 Pulse 78 MON; Pulse Ox 97% ; mlc 00:32 BP 148 / 69 (auto/); mlc 00:32 Pulse 78 MON; Pulse Ox 93% ; mlc 00:47 BP 146 / 64 (auto/); mlc 00:53 Pulse 80 MON; Pulse Ox 94% ; mlc 01:02 Pulse 82 MON; Pulse Ox 94% ; mlc 01:02 BP 138 / 60 (auto/); mlc 01:17 Pulse 82 MON; Pulse Ox 94% ; mlc 01:17 BP 134 / 63 (auto/); mlc 01:32 BP 131 / 63 (auto/); mlc 01:32 Pulse 82 MON; Pulse Ox 93% ; mlc 01:47 Pulse 82 MON; Pulse Ox 93% ; mlc 01:47 BP 125 / 70 (auto/); mlc 02:02 BP 142 / 66 (auto/); mlc 02:02 Pulse 82 MON; Pulse Ox 97% ; mlc 02:17 Pulse 80 MON; Pulse Ox 95% ; mlc 02:17 BP 154 / 67 (auto/); mlc 02:32 Pulse 82 MON; Pulse Ox 95% ; mlc 02:32 BP 163 / 67 (auto/); mlc 02:47 BP 145 / 65 (auto/); mlc 02:47 Pulse 80 MON; Pulse Ox 94% ; mlc 03:02 Pulse 80 MON; Pulse Ox 92% ; mlc 03:02 BP 124 / 60 (auto/); mlc 03:04 Pulse 80 MON; Pulse Ox 89% ; mlc 03:17 Pulse 80 MON; Pulse Ox 94% ; mlc 03:17 BP 129 / 58 (auto/); mlc 03:32 Pulse 82 MON; Pulse Ox 97% ; mlc 03:32 BP 149 / 87 (auto/); mlc 03:47 BP 140 / 61 (auto/); mlc 03:47 Pulse 80 MON; Pulse Ox 93% ; mlc 04:02 BP 141 / 62 (auto/); mlc 04:09 Pulse 78 MON; Pulse Ox 96% ; mlc 04:17 Pulse 80 MON; Pulse Ox 96% ; mlc 04:17 BP 136 / 61 (auto/); mlc 04:32 Pulse 82 MON; Pulse Ox 94% ; mlc 04:32 BP 148 / 65 (auto/); mlc 04:47 Pulse 80 MON; Pulse Ox 94% ; mlc 04:47 BP 150 / 68 (auto/); mlc 05:02 BP 150 / 68 (auto/); mlc 05:02 Pulse 80 MON; Pulse Ox 94% ; mlc 05:10 Pain 8/10; mlc 05:17 Pulse 78 MON; Pulse Ox 96% ; mlc 05:17 BP 156 / 82 (auto/); mlc 05:32 Pulse 78 MON; Pulse Ox 95% ; mlc 05:32 BP 140 / 64 (auto/); mlc 05:46 Temp 97.4; mlc 05:47 Pulse 78 MON; Pulse Ox 95% ; mlc 05:47 BP 140 / 65 (auto/); mlc 06:02 Pulse 78 MON; Pulse Ox 96% ; mlc 06:02 BP 127 / 60 (auto/); mlc 06:17 BP 128 / 60 (auto/); mlc 06:17 Pulse 80 MON; Pulse Ox 96% ; mlc 05/13 22:17 Body Mass Index 42.91 (124.28 kg, 170.18 cm) gr2 Vitals: 05/13 22:17 Log In Time: May 13, 2016 at 22:17. RN notified that patient meets Red Flag gr2 criteria. ED Course: 22:16 Patient visited by Eric Mercer. gr2 22:16 Patient moved to Waiting gr2 22:17 Paulo Villalobos MD is Private Physician. gr2 22:19 Patient visited by Eric Mercer. gr2 22:19 Patient visited by Eric Mercer. gr2 22:19 Patient moved to Pre RCE gr2 22:24 Triage Initiated rs3 22:32 Vilma Farris,GURMEET is Primary Nurse. rs3 22:32 Patient moved to 10 rs3 22:33 Placido Arredondo DO is Attending Physician. mm11 22:33 Patient visited by Placido Arredondo DO. mm11 22:45 Patient visited by Placido Arredondo DO. mm11 23:13 [facility] Payment Agreement was scanned into Archiver's and attached to record. ks16 23:17 The patient / caregiver is instructed regarding the plan of care and ED course. Cardiac mlc monitor on. Pulse ox on. NIBP on. 23:17 Accessed using accessed w/ # 20 Foley needle, sterile technique, per hospital protocol. mlc InfusaPort in patient's anterior aspect of right upper chest. Clean & dry. Dressing intact. Good blood return. Flushes easily. O2 via nasal cannula \T\ 2L/min. 23:37 Osmolality, Serum Sent. mlc 23:37 -Blood Culture Sent. mlc 23:37 Basic Metabolic Profile Sent. mlc 23:37 CBC with Diff Sent. mlc 23:37 Cardiac Injury Profile Sent. mlc 23:37 Troponin Sent. mlc 23:38 EKG done. (by ED staff). Reviewed by Placido Arredondo DO. cln 23:39 Patient visited by Nargis Sunshine PCA. cln 23:42 Patient visited by Vilma Farris RN. mlc 05/14 00:06 DIFFERENTIAL NO CHARGE Sent. mlc 00:08 Patient visited by Vilma Farris RN. mlc 00:30 Notified attending ED physician of Critical lab value. Dr Arredondo notified of glucose andrew of 403mg/dl. 00:58 Patient visited by Vilma Farris RN. mlc 01:50 Patient visited by Vilma Farris RN. mlc 02:12 Patient visited by Vilma Farris RN. mlc 02:48 Al cath inserted 16 Fr. Balloon inflated. To gravity drainage. returned clear yellow mlc urine. Patient tolerated well. 03:05 Patient visited by Vilma Farris RN. mlc 03:16 CT Chest Without Contrast Returned. EDMS 03:51 Patient visited by Placido Arredondo DO. mm11 04:11 Patient visited by Vilma Farris RN. mlc 04:24 Patient visited by Vilma Farris RN. mlc 04:56 Torrey Panchal is Hospitalizing Provider. mm11 05:11 Patient visited by Vilma Farris RN. mlc 06:19 No procedures done that require assistance. mlc 12:31 T-Sheet-- Draft Copy was scanned into Archiver's and attached to record. 12:31 ECG/EKG was scanned into Archiver's and attached to record. 12:31 Radiology Report was scanned into Archiver's and attached to record. gb Administered Medications: 05/13 23:37 Drug: NS 0.9% 500 ml [sodium chloride 0.9 % intravenous solution] Route: IV; Rate: mlc bolus; Site: Implantable Access Device; 05/14 00:52 Follow up: IV Status: Completed infusion [facility] 00:51 Drug: Insulin Regular Human 10 units [insulin regular human 100 unit/mL injection mlc solution (0.1 mL)] {Co-Signature: ko2 (Dayanna Smith RN).} Route: IVP; Site: Implantable Access Device; 00:52 Drug: heparin 100units/mL flush (infusaport) 5 ml [heparin flush (porcine) 100 unit/mL mlc in 0.9 % sodium chloride IV kit (5 mL)] Route: IVP; Site: Implantable Access Device; 02:09 Drug: Insulin Regular Human 10 units [insulin regular human 100 unit/mL injection mlc solution (0.1 mL)] {Co-Signature: [email or web address] (Miranda Cee RN).} Route: IVP; Site: Implantable Access Device; 03:04 Drug: fentaNYL (PF) 50 mcg [fentanyl (PF) 50 mcg/mL injection solution (1 mL)] Route: mlc IVP; Site: Implantable Access Device; 04:23 Drug: fentaNYL (PF) 50 mcg [fentanyl (PF) 50 mcg/mL injection solution (1 mL)] Route: mlc IVP; Site: Implantable Access Device; 05:10 Follow up: Pain 11/11 Adult; Response: Pain is decreased [facility] 05:09 Drug: Solu-MEDROL 125 mg [Solu-Medrol 500 mg intravenous solution (125 mg)] Route: IVP; [facility] Site: Implantable Access Device; 05:15 Drug: Albuterol-Ipratropium 3 ml [ipratropium-albuterol 0.5 mg-3 mg(2.5 mg base)/3 mL lf2 nebulization soln (3 mL)] Route: Inhalation; Point of Care Testing: Blood Glucose: 00:06 Blood Glucose: 414 mg/dL; mlc 00:55 Blood Glucose: 371 mg/dL; mlc 01:50 Blood Glucose: 378 mg/dL; mlc 01:50 Blood Glucose: 381 mg/dL; mlc 02:52 Blood Glucose: 338 mg/dL; mlc 03:58 Blood Glucose: 323 mg/dL; mlc 05:09 Blood Glucose: 312 mg/dL; mlc Ranges: Output: 06:24 Urine: 1100.00ml (Al); Total: 1100.00ml. mlc RT: 05:15 Subsequent Med Neb Given as ordered Patient was reinforced on procedure Patient lf2 tolerated procedure well without adverse effect. O2 via nasal cannula \T\ 2L/min. Respiratory: Airway is patent Respiratory effort is even, unlabored, Respiratory pattern is regular symmetrical, Breath sounds are diminished bilaterally. Breath sounds with wheezes bilaterally. at expiration. Order Results: Lab Order: Fingerstick Blood Sugar; SPEC'M 05/13/16 22:21 Test: BEDSIDE GLUCOSE; Value: 431; Range: 83-110; Abnormal: Above high normal; Units: MG/DL; Status: F Lab Order: -Arterial Blood Gas; SPEC'M 05/13/16 23:13 Test: ABG pH (ARTERIAL); Value: 7.395; Range: 7.350-7.450; Units: UNITS; Status: F Test: ABG PARTIAL PRESSURE CO2; Value: 44.7; Range: 35.0-45.0; Units: mmHg; Status: F Test: ABG PARTIAL PRESSURE O2; Value: 94.7; Range: 75.0-100.0; Units: mmHg; Status: F Test: ABG TOTAL CO2; Value: 28.1; Range: 23.0-31.0; Units: MEQ/L; Status: F Test: ABG HCO3; Value: 26.8; Range: 22.0-26.0; Abnormal: Above high normal; Units: MEQ/L; Status: F Test: ABG BASE EXCESS; Value: 1.5; Range: -2.0-2.0; Status: F Test: ABG STANDARD HCO3; Value: 25.8; Range: 22.0-26.0; Units: MEQ/L; Status: F Test: ABG O2 SATURATION; Value: 96.7; Range: 95.0-99.0; Units: %; Status: F Test: ABG DEVICE; Value: NASAL MORAIMA; Status: F Lab Order: Basic Metabolic Profile; SPEC'M 05/13/16 23:34 Test: GLUCOSE, FASTING; Value: 403; Range: 83-110; Abnormal: Above upper panic limits; Units: MG/DL; Status: F Test: BLOOD UREA NITROGEN; Value: 30; Range: 7-18; Abnormal: Above high normal; Units: MG/DL; Status: F Test: CREATININE FOR GFR; Value: 1.86; Range: 0.55-1.02; Abnormal: Above high normal; Units: MG/DL; Status: F Test: SODIUM LEVEL; Range: 136-145; Units: MEQ/L; Status: I Test: POTASSIUM SERUM; Range: 3.5-5.1; Units: MEQ/L; Status: I Test: CHLORIDE LEVEL; Range: 98-107; Units: MEQ/L; Status: I Test: CARBON DIOXIDE LEVEL; Range: 21-32; Units: MEQ/L; Status: I Test: ANION GAP; Range: 8-16; Units: MEQ/L; Status: I Test: CALCIUM LEVEL; Range: 8.8-10.2; Units: MG/DL; Status: I Test: GLOMERULAR FILTRATION RATE; Value: 28.4; Range: >39; Abnormal: Below low normal; Status: F Test: SODIUM LEVEL; Value: 132; Range: 136-145; Abnormal: Below low normal; Units: MEQ/L; Status: F Test: POTASSIUM SERUM; Value: 3.9; Range: 3.5-5.1; Units: MEQ/L; Status: F Test: CHLORIDE LEVEL; Value: 90; Range: 98-107; Abnormal: Below low normal; Units: MEQ/L; Status: F Test: CARBON DIOXIDE LEVEL; Value: 33; Range: 21-32; Abnormal: Above high normal; Units: MEQ/L; Status: F Test: ANION GAP; Value: 9; Range: 8-16; Units: MEQ/L; Status: F Test: CALCIUM LEVEL; Value: 9.9; Range: 8.8-10.2; Units: MG/DL; Status: F Test Note: ; Units are mL/min/1.73 m2 Chronic Kidney Disease Staging per NKF: Stage I & II GFR >=60 Normal to Mildly Decreased Stage III GFR 30-59 Moderately Decreased Stage IV GFR 15-29 Severely Decreased Stage V GFR <15 Very Little GFR Left ESRD GFR <15 on TRANSPORT RN Lab Order: CBC with Diff; SPEC'M 05/13/16 23:34 Test: WHITE BLOOD COUNT; Value: 8.1; Range: 4.0-10.0; Units: K/mm3; Status: F Test: RED BLOOD COUNT; Value: 4.86; Range: 4.00-5.40; Units: M/mm3; Status: F Test: HEMOGLOBIN; Value: 12.0; Range: 12.0-16.0; Units: g/dl; Status: F Test: HEMATOCRIT; Value: 40.4; Range: 36.0-47.0; Units: %; Status: F Test: MEAN CORPUSCULAR VOLUME; Value: 83.2; Range: 80.0-96.0; Units: fl; Status: F Test: MEAN CORPUSCULAR HEMOGLOBIN; Value: 24.6; Range: 27.0-33.0; Abnormal: Below low normal; Units: pg; Status: F Test: MEAN CORPUSCULAR HGB CONC; Value: 29.6; Range: 32.0-36.5; Abnormal: Below low normal; Units: g/dl; Status: F Test: RED CELL DISTRIBUTION WIDTH; Value: 18.4; Range: 11.5-14.5; Abnormal: Above high normal; Units: %; Status: F Test: PLATELET COUNT, AUTOMATED; Value: 246; Range: 150-450; Units: k/mm3; Status: F Test: NEUTROPHILS; Value: 56; Range: 35-75; Units: %; Status: F Test: LYMPHOCYTES; Value: 34; Range: 16-52; Units: %; Status: F Test: MONOCYTES; Value: 4; Range: 0-8; Units: %; Status: F Test: EOSINOPHILS; Value: 3; Range: 0-5; Units: %; Status: F Test: BASOPHILS; Value: 3; Range: 0-4; Units: %; Status: F Test: RBC MORPHOLOGY; Value: NORMAL; Status: F Test: HYPOCHROMASIA; Value: 3+; Status: F Test: ANISOCYTOSIS; Value: 2+; Status: F Lab Order: Cardiac Injury Profile; SPEC'M 05/13/16 23:34 Test: CPK CREATINE PHOSPHOKINASE; Value: 43; Range: 26-192; Units: U/L; Status: F Test: CK-MB VALUE MASS; Value: 1.0; Range: 0.0-3.6; Units: NG/ML; Status: F Test: MB/CK RELATIVE INDEX; Value: 2.32; Range: < OR =4; Status: F Test Note: ; DIAGNOSIS CRITERIA MMB ng/ml Relative Index (RI) NON-AMI < or = 5 N/A ERVIN ZONE > 5 < or = 4 AMI > 5 > 4 Lab Order: Troponin; 05/13/16 23:34 Test: TROPONIN I; Value: < 0.02; Range: < 0.10; Units: NG/ML; Status: F Test Note: ; Troponin I Reference Interval for [email or web address] LOCI: 99th Percentile= 0.00-0.045 ng/ml Risk Stratification: <= 0.10 ng/ml Decreased Risk for Adverse Clinical Events. 0.10-1.50 ng/ml Increased Risk for Adverse Clinical Events. Evaluation of additional criterion and/or repeat testing in 2-6 hours is suggested to rule out myocardial damage. >= 1.50 ng/ml Indicative of Myocardial Injury. Lab Order: Osmolality, Serum; 05/13/16 23:34 Test: OSMOLALITY SERUM; Value: 312; Range: 280-301; Abnormal: Above high normal; Units: MOSM/KG; Status: F Lab Order: PLATELET ESTIMATE; 05/13/16 23:34 Test: PLATELET ESTIMATE; Value: NORMAL; Range: NORMAL; Status: F Lab Order: Fingerstick Blood Sugar; 05/13/16 23:59 Test: BEDSIDE GLUCOSE; Value: 414; Range: 83-110; Abnormal: Above high normal; Units: MG/DL; Status: F Test Note: ; RN Notified Dr Order not to Draw Lab Order: Fingerstick Blood Sugar; 05/14/16 00:47 Test: BEDSIDE GLUCOSE; Value: 371; Range: 83-110; Abnormal: Above high normal; Units: MG/DL; Status: F Test Note: ; RN Notified Dr Order not to Draw Lab Order: Fingerstick Blood Sugar; 05/14/16 02:52 Test: BEDSIDE GLUCOSE; Value: 338; Range: 83-110; Abnormal: Above high normal; Units: MG/DL; Status: F Test Note: ; RN Notified Dr Order not to Draw Lab Order: Fingerstick Blood Sugar; SPEC'M 05/14/16 03:58 Test: BEDSIDE GLUCOSE; Value: 323; Range: 83-110; Abnormal: Above high normal; Units: MG/DL; Status: F Test Note: ; RN Notified Dr Order not to Draw Lab Order: Fingerstick Blood Sugar; SPEC'M 05/14/16 04:59 Test: BEDSIDE GLUCOSE; Value: 312; Range: 83-110; Abnormal: Above high normal; Units: MG/DL; Status: F Test Note: ; RN Notified Dr Order not to Draw Radiology Order: CT Chest Without Contrast Test: CT Chest Without Contrast REASON FOR EXAMINATION: Shortness of Breath; ; CLINICAL HISTORY: Shortness of breath.; TECHNIQUE: Multiple axial CT images were obtained through the thorax without IV contrast material.; COMMENTS:; Comparison is made to the prior exam performed on 03/07/2016.; Right port a catheter is in good position with its tip in the superior vena cava.; No change in calcified mediastinal and hilar lymph nodes.; No change in bilateral basilar atelectatic airspace disease of the lungs.; No change in central pulmonary venous congestion.; There is no evidence of pleural or parenchymal-based mass. There are no pleural effusions. There is n; o evidence of hilar or mediastinal lymphadenopathy. The heart and great vessels are within normal galvan; its.; The visualized portions of the liver are of uniform attenuation without mass or defect. There is no i; ntra or extrahepatic biliary ductal dilatation. The spleen is unremarkable. The visualized pancreas i; s of normal contour and attenuation characteristics. There is no evidence of adrenal mass. The visual; ized portions of the kidneys present no abnormalities.; No change in small sliding hernia.; The bony structures are free of lytic or blastic lesions.; IMPRESSION:; No change is seen.; Thank you for your kind referral of this patient.; ; ; Outcome: 04:57 Decision to Hospitalize by Provider. mm11 05:59 Admission hand-off: Report Faxed Fax receipt verified by GURMEET Coleman. [facility] 06:19 Discharge Assessment: Patient awake, alert and oriented x 3. No cognitive and/or mlc functional deficits noted. Patient verbalized understanding of disposition instructions. patient administered narcotics - yes. Patient was admitted to the hospital or transferred to another facility. The following High Risk Discharge criteria are identified: None. Admitted to Med/Surg accompanied by tech, via stretcher, with chart. Condition: stable. CT Study completed. Property sent home with patient. 06:24 Patient left the ED. [facility] Signatures: Dispatcher [employer] EDMS Corinne Lion RN RN Arelis Bedoya, Reg Reg gb Palcido Arredondo, DO mm11 Minnie Schaffer RN RN rs3 Eric Mercer gr2 Vilma Farris RN RN [facility] Daniela Mace, Reg Reg [id number] Sita Romero,RT RT lf2 Nargis Sunshine, INDUSTRIAL PHARMACIST INDUSTRIAL PHARMACIST cln Dayanna Smith RN ko2 Miranda Cee RN ld5 Chart Complete MTDD
--- NOTE | 2016-05-16 07:25 | EDDOCDS ---
Physician Documentation [facility] Name: Maricarmen Stern Age: 70 yrs Sex: Female : 1945 Arrival Date: 05/13/2016 Time: 22:14 Bed 10 Private MD: Paulo Villalobos Disposition: 05/14/16 04:57 Hospitalization ordered by Torrey Panchal for Inpatient Admission. Preliminary diagnosis are Chronic obstructive pulmonary disease with (acute) exacerbation, Hypoxemia, Hyperglycemia, unspecified. - Bed requested for 5 Sheets. - Status is Inpatient Admission. mlc - Condition is Stable. - Problem is an acute exacerbation. - Symptoms have improved. Historical: - Allergies: CEPHALOSPORINS (Rash); Chlorpromazine (Rash); Doxycycline (Rash); Latex (Rash); loratadine (Rash); Methadone (Rash); Morphine (Rash); PENICILLINS (Rash); PENTAZOCINE (Rash); - Home Meds: 1. baclofen 20 mg Oral tab twice a day 2. bisoprolol fumarate 5 mg oral tab 0.5 tab once daily 3. Colace 100 mg oral cap 1 cap once daily 4. fluoxetine 20 mg Oral cap 1 cap once daily 5. metoclopramide HCl 10 mg Oral tab 1 tab once daily 6. omeprazole 20 mg Oral cpDR once daily 7. Zofran (as hydrochloride) 4 mg Oral tab daily 8. potassium chloride 10 mEq Oral cpER 1 cap once daily 9. promethazine 25 mg Oral tab 1 tab once daily 10. senna 8.6 mg oral tab 2 tabs once daily 11. spironolactone 25 mg Oral tab 1 tab once daily 12. torsemide 50 mg oral tab twice a day 13. pregabalin 50 mg Oral cap 1 cap 3 times per day 14. Amitiza 24 mcg oral cap 2 times per day 15. sucralfate 1 gram Oral tab 1 tab 2 times per day 16. Vitamin D Oral daily 17. Lantus 100 unit/mL Sub-Q crtg 78 unit twice a day 18. Novolog 100 unit/mL Sub-Q soln 16 unit before meals - PMHx: Asthma; blood clot in left leg; CHF; Diabetes - IDDM: controlled; Hypertension; Migraines; retenoiditis; paralyzed diaphragm; Seizures; Sleep Apnea w/ CPAP; - PSHx: Adeel Filter Placement; right knee surgery; right hip surgery; lung surgery; Hysterectomy; back surgery; left ankle surgery; - Social history: Smoking status: Patient states was never smoker of tobacco. No barriers to communication noted, The patient speaks fluent [place]. - Family history: Not pertinent, No immediate family members are acutely ill. - : The pt / caregiver states he / she is not on anticoagulants. Home medication list is obtained from the patient. - Exposure Risk Screening:: None identified. Vital Signs: 05/13 22:17 BP 157 / 55; Pulse 78; Resp 20 S; Temp 95.9(O); Pulse Ox 95% on R/A; Weight 124.28 kg / gr2 273.99 lbs (R); Height 5 ft. 7 in. (170.18 cm) (R); Pain 05/14; 23:17 BP 135 / 63 (auto/); mlc 23:17 Pulse 74 MON; Pulse Ox 94% ; mlc 23:40 Pulse 74 MON; Pulse Ox 94% ; mlc 23:47 BP 175 / 78 (auto/); mlc 23:47 Pulse 74 MON; Pulse Ox 94% ; mlc 05/14 00:05 Pulse 76 MON; Pulse Ox 96% ; mlc 00:17 BP 142 / 63 (auto/); mlc 00:17 Pulse 78 MON; Pulse Ox 97% ; mlc 00:32 BP 148 / 69 (auto/); mlc 00:32 Pulse 78 MON; Pulse Ox 93% ; mlc 00:47 BP 146 / 64 (auto/); mlc 00:53 Pulse 80 MON; Pulse Ox 94% ; mlc 01:02 Pulse 82 MON; Pulse Ox 94% ; mlc 01:02 BP 138 / 60 (auto/); mlc 01:17 Pulse 82 MON; Pulse Ox 94% ; mlc 01:17 BP 134 / 63 (auto/); mlc 01:32 BP 131 / 63 (auto/); mlc 01:32 Pulse 82 MON; Pulse Ox 93% ; mlc 01:47 Pulse 82 MON; Pulse Ox 93% ; mlc 01:47 BP 125 / 70 (auto/); mlc 02:02 BP 142 / 66 (auto/); mlc 02:02 Pulse 82 MON; Pulse Ox 97% ; mlc 02:17 Pulse 80 MON; Pulse Ox 95% ; mlc 02:17 BP 154 / 67 (auto/); mlc 02:32 Pulse 82 MON; Pulse Ox 95% ; mlc 02:32 BP 163 / 67 (auto/); mlc 02:47 BP 145 / 65 (auto/); mlc 02:47 Pulse 80 MON; Pulse Ox 94% ; mlc 03:02 Pulse 80 MON; Pulse Ox 92% ; mlc 03:02 BP 124 / 60 (auto/); mlc 03:04 Pulse 80 MON; Pulse Ox 89% ; mlc 03:17 Pulse 80 MON; Pulse Ox 94% ; mlc 03:17 BP 129 / 58 (auto/); mlc 03:32 Pulse 82 MON; Pulse Ox 97% ; mlc 03:32 BP 149 / 87 (auto/); mlc 03:47 BP 140 / 61 (auto/); mlc 03:47 Pulse 80 MON; Pulse Ox 93% ; mlc 04:02 BP 141 / 62 (auto/); mlc 04:09 Pulse 78 MON; Pulse Ox 96% ; mlc 04:17 Pulse 80 MON; Pulse Ox 96% ; mlc 04:17 BP 136 / 61 (auto/); mlc 04:32 Pulse 82 MON; Pulse Ox 94% ; mlc 04:32 BP 148 / 65 (auto/); mlc 04:47 Pulse 80 MON; Pulse Ox 94% ; mlc 04:47 BP 150 / 68 (auto/); mlc 05:02 BP 150 / 68 (auto/); mlc 05:02 Pulse 80 MON; Pulse Ox 94% ; mlc 05:10 Pain 8/10; mlc 05:17 Pulse 78 MON; Pulse Ox 96% ; mlc 05:17 BP 156 / 82 (auto/); mlc 05:32 Pulse 78 MON; Pulse Ox 95% ; mlc 05:32 BP 140 / 64 (auto/); mlc 05:46 Temp 97.4; mlc 05:47 Pulse 78 MON; Pulse Ox 95% ; mlc 05:47 BP 140 / 65 (auto/); mlc 06:02 Pulse 78 MON; Pulse Ox 96% ; mlc 06:02 BP 127 / 60 (auto/); mlc 06:17 BP 128 / 60 (auto/); mlc 06:17 Pulse 80 MON; Pulse Ox 96% ; mlc 05/13 22:17 Body Mass Index 42.91 (124.28 kg, 170.18 cm) gr2 MDM: 05/13 22:24 Accucheck ordered. rs3 22:42 Fingerstick Blood Sugar Ordered. EDMS 22:46 -Blood Culture (Adults Only), peripheral from different site, or from device/port/PICC mm11 etc. if present ordered. 22:46 Call Respiratory ordered. mm11 22:46 Internal Carver/Pulse Ox/q 15 min VS ordered. mm11 22:46 Oxygen at 4L/Min NC or Home dosage ordered. mm11 22:46 Rhythm Strip to chart ordered. mm11 22:46 Accucheck hourly ordered. mm11 22:46 heparin 100units/mL flush (infusaport) 5 ml IVP once; flush first with 10mL of NS mm11 followed by heparin ordered. 22:46 Access Infusaport ordered. mm11 22:46 NS 0.9% 500 ml IV at bolus once ordered. mm11 22:47 -Arterial Blood Gas Ordered. EDMS 22:47 Basic Metabolic Profile Ordered. EDMS 22:47 CBC with Diff Ordered. EDMS 22:47 Cardiac Injury Profile Ordered. EDMS 22:47 Troponin Ordered. EDMS 22:47 Osmolality, Serum Ordered. EDMS 22:47 -Blood Culture Ordered. EDMS 22:48 Chest, 1 View Ordered. EDMS 22:48 ECG WITH READING ER PHYS+CARDIAG ordered. EDMS 22:51 Call Respiratory complete. ml3 22:51 -Blood Culture (Adults Only), peripheral from different site, or from device/port/PICC ml3 etc. if present complete. 22:52 BLOOD CULTURES Ordered. EDMS 23:04 Financial registration complete. [email or web address] 23:13 [facility] Payment Agreement was scanned into [employer] and attached to record. [email or web address] 23:24 Fingerstick Blood Sugar Reviewed. mm11 23:24 -Arterial Blood Gas Reviewed. mm11 23:55 DIFFERENTIAL NO CHARGE Ordered. EDMS 05/14 00:12 Fingerstick Blood Sugar Ordered. EDMS 00:15 CBC with Diff Reviewed. mm11 00:15 Fingerstick Blood Sugar Reviewed. mm11 00:15 PLATELET ESTIMATE Reviewed. mm11 00:50 Basic Metabolic Profile Reviewed. mm11 00:50 Osmolality, Serum Reviewed. mm11 00:50 Cardiac Injury Profile Reviewed. mm11 00:50 Troponin Reviewed. mm11 00:51 Insulin Regular Human 10 units IVP once ordered. mm11 00:57 Fingerstick Blood Sugar Ordered. EDMS 01:05 Fingerstick Blood Sugar Reviewed. mm11 01:58 Insulin Regular Human 10 units IVP once ordered. mm11 01:58 CT Chest Without Contrast Ordered. EDMS 02:36 fentaNYL (PF) 50 mcg IVP once ordered. mm11 02:36 Al ordered. mm11 03:02 Fingerstick Blood Sugar Ordered. EDMS 03:06 Fingerstick Blood Sugar Reviewed. mm11 04:00 fentaNYL (PF) 50 mcg IVP once ordered. mm11 04:07 Fingerstick Blood Sugar Ordered. EDMS 04:44 Solu-MEDROL 125 mg IVP once ordered. mm11 04:45 Albuterol-Ipratropium 3 ml Inhalation once ordered. mm11 04:46 BED REQUEST+ADM ordered. EDMS 05:14 Fingerstick Blood Sugar Ordered. EDMS 05:29 Admission / Observation Status ordered. EDMS 05:29 CONSISTENT CARBOHYDRATES ordered. EDMS 05:30 RESPIRATORY PANEL Ordered. EDMS 05:30 SPUTUM CULTURE AND GRAM STAIN Ordered. EDMS 05:31 PHYSICAL THERAPY EVAL & TREAT ordered. EDMS 12:31 T-Sheet-- Draft Copy was scanned into [employer] and attached to record. gb 12:31 ECG/EKG was scanned into [employer] and attached to record. gb 12:31 Radiology Report was scanned into [employer] and attached to record. Point of Care Testing: Blood Glucose: 00:06 Blood Glucose: 414 mg/dL; mlc 00:55 Blood Glucose: 371 mg/dL; mlc 01:50 Blood Glucose: 378 mg/dL; mlc 01:50 Blood Glucose: 381 mg/dL; mlc 02:52 Blood Glucose: 338 mg/dL; mlc 03:58 Blood Glucose: 323 mg/dL; mlc 05:09 Blood Glucose: 312 mg/dL; mlc Ranges: Administered Medications: 05/13 23:37 Drug: NS 0.9% 500 ml [sodium chloride 0.9 % intravenous solution] Route: IV; Rate: mlc bolus; Site: Implantable Access Device; 05/14 00:52 Follow up: IV Status: Completed infusion mlc 00:51 Drug: Insulin Regular Human 10 units [insulin regular human 100 unit/mL injection mlc solution (0.1 mL)] {Co-Signature: ko2 (Dayanna Smith RN).} Route: IVP; Site: Implantable Access Device; 00:52 Drug: heparin 100units/mL flush (infusaport) 5 ml [heparin flush (porcine) 100 unit/mL mlc in 0.9 % sodium chloride IV kit (5 mL)] Route: IVP; Site: Implantable Access Device; 02:09 Drug: Insulin Regular Human 10 units [insulin regular human 100 unit/mL injection mlc solution (0.1 mL)] {Co-Signature: [email or web address] (Miranda Cee RN).} Route: IVP; Site: Implantable Access Device; 03:04 Drug: fentaNYL (PF) 50 mcg [fentanyl (PF) 50 mcg/mL injection solution (1 mL)] Route: mlc IVP; Site: Implantable Access Device; 04:23 Drug: fentaNYL (PF) 50 mcg [fentanyl (PF) 50 mcg/mL injection solution (1 mL)] Route: mlc IVP; Site: Implantable Access Device; 05:10 Follow up: Pain 11/11 Adult; Response: Pain is decreased [facility] [place]:09 Drug: Solu-MEDROL 125 mg [Solu-Medrol 500 mg intravenous solution (125 mg)] Route: IVP; [facility] Site: Implantable Access Device; 05:15 Drug: Albuterol-Ipratropium 3 ml [ipratropium-albuterol 0.5 mg-3 mg(2.5 mg base)/3 mL lf2 nebulization soln (3 mL)] Route: Inhalation; Signatures: Dispatcher [employer] EDOK Arelis Waldrop, Reg Reg gb Deepthi Merlos, Clinical Assistant Unit ml3 Placido Arredondo DO DO mm11 Minnie Schaffer RN RN rs3 Vilma Farris RN RN [facility] Daniela Mace, Reg Reg [email or web address] Erick Van RN RN sa Frederick, Lisa RT lf2 Dayanna Smith RN ko2 Miranda Cee RN ld5 The chart was reviewed and I authenticate all verbal orders and agree with the evaluation and treatment provided.Corrections: (The following items were deleted from the chart) 05/13 23:37 22:46 IV Saline Lock ordered. mm11 [facility] Attachments: 23:13 [facility] Payment Agreement [email or web address] 05/14 12:31 T-Sheet-- Draft Copy gb 12:31 ECG/EKG gb Chart Complete MTDD
--- NOTE | 2016-05-16 07:25 | EDDOCDS ---
Physician Documentation [facility] Name: Maricarmen Stern Age: 70 yrs Sex: Female : 1945 Arrival Date: 05/13/2016 Time: 22:14 Bed 10 Private MD: Paulo Villalobos Disposition: 05/14/16 04:57 Hospitalization ordered by Torrey Panchal for Inpatient Admission. Preliminary diagnosis are Chronic obstructive pulmonary disease with (acute) exacerbation, Hypoxemia, Hyperglycemia, unspecified. - Bed requested for 5 Sheets. - Status is Inpatient Admission. mlc - Condition is Stable. - Problem is an acute exacerbation. - Symptoms have improved. Historical: - Allergies: CEPHALOSPORINS (Rash); Chlorpromazine (Rash); Doxycycline (Rash); Latex (Rash); loratadine (Rash); Methadone (Rash); Morphine (Rash); PENICILLINS (Rash); PENTAZOCINE (Rash); - Home Meds: 1. baclofen 20 mg Oral tab twice a day 2. bisoprolol fumarate 5 mg oral tab 0.5 tab once daily 3. Colace 100 mg oral cap 1 cap once daily 4. fluoxetine 20 mg Oral cap 1 cap once daily 5. metoclopramide HCl 10 mg Oral tab 1 tab once daily 6. omeprazole 20 mg Oral cpDR once daily 7. Zofran (as hydrochloride) 4 mg Oral tab daily 8. potassium chloride 10 mEq Oral cpER 1 cap once daily 9. promethazine 25 mg Oral tab 1 tab once daily 10. senna 8.6 mg oral tab 2 tabs once daily 11. spironolactone 25 mg Oral tab 1 tab once daily 12. torsemide 50 mg oral tab twice a day 13. pregabalin 50 mg Oral cap 1 cap 3 times per day 14. Amitiza 24 mcg oral cap 2 times per day 15. sucralfate 1 gram Oral tab 1 tab 2 times per day 16. Vitamin D Oral daily 17. Lantus 100 unit/mL Sub-Q crtg 78 unit twice a day 18. Novolog 100 unit/mL Sub-Q soln 16 unit before meals - PMHx: Asthma; blood clot in left leg; CHF; Diabetes - IDDM: controlled; Hypertension; Migraines; retenoiditis; paralyzed diaphragm; Seizures; Sleep Apnea w/ CPAP; - PSHx: Adeel Filter Placement; right knee surgery; right hip surgery; lung surgery; Hysterectomy; back surgery; left ankle surgery; - Social history: Smoking status: Patient states was never smoker of tobacco. No barriers to communication noted, The patient speaks fluent [place]bour[place]. - Family history: Not pertinent, No immediate family members are acutely ill. - : The pt / caregiver states he / she is not on anticoagulants. Home medication list is obtained from the patient. - Exposure Risk Screening:: None identified. Vital Signs: 05/13 22:17 BP 157 / 55; Pulse 78; Resp 20 S; Temp 95.9(O); Pulse Ox 95% on R/A; Weight 124.28 kg / gr2 273.99 lbs (R); Height 5 ft. 7 in. (170.18 cm) (R); Pain 05/14; 23:17 BP 135 / 63 (auto/); mlc 23:17 Pulse 74 MON; Pulse Ox 94% ; mlc 23:40 Pulse 74 MON; Pulse Ox 94% ; mlc 23:47 BP 175 / 78 (auto/); mlc 23:47 Pulse 74 MON; Pulse Ox 94% ; mlc 05/14 00:05 Pulse 76 MON; Pulse Ox 96% ; mlc 00:17 BP 142 / 63 (auto/); mlc 00:17 Pulse 78 MON; Pulse Ox 97% ; mlc 00:32 BP 148 / 69 (auto/); mlc 00:32 Pulse 78 MON; Pulse Ox 93% ; mlc 00:47 BP 146 / 64 (auto/); mlc 00:53 Pulse 80 MON; Pulse Ox 94% ; mlc 01:02 Pulse 82 MON; Pulse Ox 94% ; mlc 01:02 BP 138 / 60 (auto/); mlc 01:17 Pulse 82 MON; Pulse Ox 94% ; mlc 01:17 BP 134 / 63 (auto/); mlc 01:32 BP 131 / 63 (auto/); mlc 01:32 Pulse 82 MON; Pulse Ox 93% ; mlc 01:47 Pulse 82 MON; Pulse Ox 93% ; mlc 01:47 BP 125 / 70 (auto/); mlc 02:02 BP 142 / 66 (auto/); mlc 02:02 Pulse 82 MON; Pulse Ox 97% ; mlc 02:17 Pulse 80 MON; Pulse Ox 95% ; mlc 02:17 BP 154 / 67 (auto/); mlc 02:32 Pulse 82 MON; Pulse Ox 95% ; mlc 02:32 BP 163 / 67 (auto/); mlc 02:47 BP 145 / 65 (auto/); mlc 02:47 Pulse 80 MON; Pulse Ox 94% ; mlc 03:02 Pulse 80 MON; Pulse Ox 92% ; mlc 03:02 BP 124 / 60 (auto/); mlc 03:04 Pulse 80 MON; Pulse Ox 89% ; mlc 03:17 Pulse 80 MON; Pulse Ox 94% ; mlc 03:17 BP 129 / 58 (auto/); mlc 03:32 Pulse 82 MON; Pulse Ox 97% ; mlc 03:32 BP 149 / 87 (auto/); mlc 03:47 BP 140 / 61 (auto/); mlc 03:47 Pulse 80 MON; Pulse Ox 93% ; mlc 04:02 BP 141 / 62 (auto/); mlc 04:09 Pulse 78 MON; Pulse Ox 96% ; mlc 04:17 Pulse 80 MON; Pulse Ox 96% ; mlc 04:17 BP 136 / 61 (auto/); mlc 04:32 Pulse 82 MON; Pulse Ox 94% ; mlc 04:32 BP 148 / 65 (auto/); mlc 04:47 Pulse 80 MON; Pulse Ox 94% ; mlc 04:47 BP 150 / 68 (auto/); mlc 05:02 BP 150 / 68 (auto/); mlc 05:02 Pulse 80 MON; Pulse Ox 94% ; mlc 05:10 Pain 8/10; mlc 05:17 Pulse 78 MON; Pulse Ox 96% ; mlc 05:17 BP 156 / 82 (auto/); mlc 05:32 Pulse 78 MON; Pulse Ox 95% ; mlc 05:32 BP 140 / 64 (auto/); mlc 05:46 Temp 97.4; mlc 05:47 Pulse 78 MON; Pulse Ox 95% ; mlc 05:47 BP 140 / 65 (auto/); mlc 06:02 Pulse 78 MON; Pulse Ox 96% ; mlc 06:02 BP 127 / 60 (auto/); mlc 06:17 BP 128 / 60 (auto/); mlc 06:17 Pulse 80 MON; Pulse Ox 96% ; mlc 05/13 22:17 Body Mass Index 42.91 (124.28 kg, 170.18 cm) gr2 MDM: 05/13 22:24 Accucheck ordered. rs3 22:42 Fingerstick Blood Sugar Ordered. EDMS 22:46 -Blood Culture (Adults Only), peripheral from different site, or from device/port/PICC mm11 etc. if present ordered. 22:46 Call Respiratory ordered. mm11 22:46 Continuous Wave Operator/Pulse Ox/q 15 min VS ordered. mm11 22:46 Oxygen at 4L/Min NC or Home dosage ordered. mm11 22:46 Rhythm Strip to chart ordered. mm11 22:46 Accucheck hourly ordered. mm11 22:46 heparin 100units/mL flush (infusaport) 5 ml IVP once; flush first with 10mL of NS mm11 followed by heparin ordered. 22:46 Access Infusaport ordered. mm11 22:46 NS 0.9% 500 ml IV at bolus once ordered. mm11 22:47 -Arterial Blood Gas Ordered. EDMS 22:47 Basic Metabolic Profile Ordered. EDMS 22:47 CBC with Diff Ordered. EDMS 22:47 Cardiac Injury Profile Ordered. EDMS 22:47 Troponin Ordered. EDMS 22:47 Osmolality, Serum Ordered. EDMS 22:47 -Blood Culture Ordered. EDMS 22:48 Chest, 1 View Ordered. EDMS 22:48 ECG WITH READING ER PHYS+CARDIAG ordered. EDMS 22:51 Call Respiratory complete. ml3 22:51 -Blood Culture (Adults Only), peripheral from different site, or from device/port/PICC ml3 etc. if present complete. 22:52 BLOOD CULTURES Ordered. EDMS 23:04 Financial registration complete. [email or web address] 23:13 [facility] Payment Agreement was scanned into [address] and attached to record. [email or web address] 23:24 Fingerstick Blood Sugar Reviewed. mm11 23:24 -Arterial Blood Gas Reviewed. mm11 23:55 DIFFERENTIAL NO CHARGE Ordered. EDMS 05/14 00:12 Fingerstick Blood Sugar Ordered. EDMS 00:15 CBC with Diff Reviewed. mm11 00:15 Fingerstick Blood Sugar Reviewed. mm11 00:15 PLATELET ESTIMATE Reviewed. mm11 00:50 Basic Metabolic Profile Reviewed. mm11 00:50 Osmolality, Serum Reviewed. mm11 00:50 Cardiac Injury Profile Reviewed. mm11 00:50 Troponin Reviewed. mm11 00:51 Insulin Regular Human 10 units IVP once ordered. mm11 00:57 Fingerstick Blood Sugar Ordered. EDMS 01:05 Fingerstick Blood Sugar Reviewed. mm11 01:58 Insulin Regular Human 10 units IVP once ordered. mm11 01:58 CT Chest Without Contrast Ordered. EDMS 02:36 fentaNYL (PF) 50 mcg IVP once ordered. mm11 02:36 Al ordered. mm11 03:02 Fingerstick Blood Sugar Ordered. EDMS 03:06 Fingerstick Blood Sugar Reviewed. mm11 04:00 fentaNYL (PF) 50 mcg IVP once ordered. mm11 04:07 Fingerstick Blood Sugar Ordered. EDMS 04:44 Solu-MEDROL 125 mg IVP once ordered. mm11 04:45 Albuterol-Ipratropium 3 ml Inhalation once ordered. mm11 04:46 BED REQUEST+ADM ordered. EDMS 05:14 Fingerstick Blood Sugar Ordered. EDMS 05:29 Admission / Observation Status ordered. EDMS 05:29 CONSISTENT CARBOHYDRATES ordered. EDMS 05:30 RESPIRATORY PANEL Ordered. EDMS 05:30 SPUTUM CULTURE AND GRAM STAIN Ordered. EDMS 05:31 PHYSICAL THERAPY EVAL & TREAT ordered. EDMS 12:31 T-Sheet-- Draft Copy was scanned into [address] and attached to record. gb 12:31 ECG/EKG was scanned into [address] and attached to record. gb 12:31 Radiology Report was scanned into [address] and attached to record. Point of Care Testing: Blood Glucose: 00:06 Blood Glucose: 414 mg/dL; mlc 00:55 Blood Glucose: 371 mg/dL; mlc 01:50 Blood Glucose: 378 mg/dL; mlc 01:50 Blood Glucose: 381 mg/dL; mlc 02:52 Blood Glucose: 338 mg/dL; mlc 03:58 Blood Glucose: 323 mg/dL; mlc 05:09 Blood Glucose: 312 mg/dL; mlc Ranges: Administered Medications: 05/13 23:37 Drug: NS 0.9% 500 ml [sodium chloride 0.9 % intravenous solution] Route: IV; Rate: mlc bolus; Site: Implantable Access Device; 05/14 00:52 Follow up: IV Status: Completed infusion mlc 00:51 Drug: Insulin Regular Human 10 units [insulin regular human 100 unit/mL injection mlc solution (0.1 mL)] {Co-Signature: ko2 (Dayanna Smith RN).} Route: IVP; Site: Implantable Access Device; 00:52 Drug: heparin 100units/mL flush (infusaport) 5 ml [heparin flush (porcine) 100 unit/mL mlc in 0.9 % sodium chloride IV kit (5 mL)] Route: IVP; Site: Implantable Access Device; 02:09 Drug: Insulin Regular Human 10 units [insulin regular human 100 unit/mL injection mlc solution (0.1 mL)] {Co-Signature: [email or web address] (Miranda Cee RN).} Route: IVP; Site: Implantable Access Device; 03:04 Drug: fentaNYL (PF) 50 mcg [fentanyl (PF) 50 mcg/mL injection solution (1 mL)] Route: mlc IVP; Site: Implantable Access Device; 04:23 Drug: fentaNYL (PF) 50 mcg [fentanyl (PF) 50 mcg/mL injection solution (1 mL)] Route: mlc IVP; Site: Implantable Access Device; 05:10 Follow up: Pain 11/11 Adult; Response: Pain is decreased [facility] 05:09 Drug: Solu-MEDROL 125 mg [Solu-Medrol 500 mg intravenous solution (125 mg)] Route: IVP; [facility] [place] Site: Implantable Access Device; 05:15 Drug: Albuterol-Ipratropium 3 ml [ipratropium-albuterol 0.5 mg-3 mg(2.5 mg base)/3 mL lf2 nebulization soln (3 mL)] Route: Inhalation; Signatures: Dispatcher [employer] EDUT Arelis Waldrop, Reg Reg gb Deepthi Merlos, Placement Officer Unit ml3 Placido Arredondo DO DO mm11 Minnie Schaffer RN RN rs3 Vilma Farris RN RN [facility] [place] Daniela Mace, Reg Reg [email or web address] Erick Van RN RN sa Frederick, Lisa RT lf2 Dayanna Smith RN ko2 Miranda Cee RN ld5 The chart was reviewed and I authenticate all verbal orders and agree with the evaluation and treatment provided.Corrections: (The following items were deleted from the chart) 05/13 23:37 22:46 IV Saline Lock ordered. mm11 [facility] Attachments: 23:13 [facility] Payment Agreement [email or web address] 05/14 12:31 T-Sheet-- Draft Copy gb 12:31 ECG/EKG gb Chart Complete MTDD
--- NOTE | 2016-05-16 07:32 | IPNPDOC ---
Subjective General Date Seen The patient was seen on 05/16/16. Subjective Chief Complaint/HPI The patient is a 70-year-old female admitted with a reason for visit of Copd Exacerbation. Events since last encounter no new complaints overnight , no fever or chills, feeling a little better, still very weak and tired. Sugars better controlled. Objective Physical Examination General Exam: Positive: Alert, Cooperative, No Acute Distress ENT Exam: Positive: Atraumatic, Mucous membr. moist/pink Chest Exam: Positive: Clear to auscultation, Diminished, Negative: Rales, Rhonchi Heart Exam: Positive: Normal S1, Normal S2, Rate Normal Telemetry: Positive: No significant arrhythmia Abdomen Exam: Positive: Soft, Negative: Tenderness Extremity Exam: Negative: Clubbing, Cyanosis, Edema, Normal pulses, Other, Swelling, Tenderness Assessment /Plan Problems Problems: (1) Diabetes mellitus with hyperglycemia, with long-term current use of insulin Status: Acute Problem Text: uncontrolled sugars greater than 700 without ketosis or without coma. was on insulin infusion now back to home regimen of levemir and lispro as per sliding scale. will restart diet. (2) Acute on chronic respiratory failure with hypoxia and hypercapnia Status: Acute Problem Text: improved with decrease in oxygenation did not require BIPAP will recheck ABG (3) MATT on CPAP Status: Chronic Problem Text: will continue cpap (4) UTI (urinary tract infection) Status: Acute Problem Text: On ceftriaxone. urine cultures pending. 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 Plan/VTE VTE Prophylaxis Ordered?: Yes VS, I&O, 24H, Fishbone Vital Signs/I&O Vital Signs Date Time Temp Pulse Resp B/P Pulse Ox O2 Delivery O2 Flow Rate FiO2 05/16/16 06:00 98.2 69 20 132/64 92 Room Air 05/15/16 23:44 2.0 I&O- Last 24 Hours up to 6 AM 05/16/16 06:00 Intake Total 3350 ml Output Total 2075 ml Balance 1275 ml Laboratory Data 24H LABS Laboratory Tests 2 05/15/16 07:57: Bedside Glucose (Misc Panel) 396H 05/15/16 08:17: Arterial Blood pH 7.280L, Arterial Blood Partial Pressure CO2 58.5H, Arterial Blood Partial Pressure O2 189.5H, Arterial Blood Total CO2 28.7, Arterial Blood HCO3 26.9H, Arterial Blood Base Excess -0.6, Arterial Blood Oxygen Saturation 99.2H, Blood Gas Bicarbonate Standard 24.0 05/15/16 09:09: Bedside Glucose (Misc Panel) 346H 05/15/16 11:06: Bedside Glucose (Misc Panel) 277H 05/15/16 11:21: Anion Gap 10, Blood Urea Nitrogen 34H, Creatinine 1.70H, Sodium Level 143#, Potassium Level 3.9, Chloride Level 107, Carbon Dioxide Level 26, Calcium Level 9.1, Free Thyroxine 1.03, Glomerular Filtration Rate 31.5L, Magnesium Level 2.6H , Thyroid Stimulating Hormone (TSH) 1.100 05/15/16 11:33: Arterial Blood pH 7.320L, Arterial Blood Partial Pressure CO2 48.6H, Arterial Blood Partial Pressure O2 57.4L, Arterial Blood Total CO2 26.0, Arterial Blood HCO3 24.5, Arterial Blood Base Excess -1.9, Arterial Blood Oxygen Saturation 87.7L, Blood Gas Bicarbonate Standard 22.7 05/15/16 12:05: Bedside Glucose (Misc Panel) 228H 05/15/16 16:36: Bedside Glucose (Misc Panel) 238H 05/15/16 20:27: Bedside Glucose (Misc Panel) 319H 05/16/16 06:20: Bedside Glucose (Misc Panel) 226H CBC/BMP Laboratory Tests 05/15/16 11:21 Calcium Level 9.1, Red Blood Count 4.05, Mean Corpuscular Volume 82.8, Mean Corpuscular Hemoglobin 24.8 L, Mean Corpuscular Hemoglobin Concent 30.0 L, Red Cell Distribution Width 18.6 H Microbiology Microbiology 05/14/16 Blood Culture - Preliminary, Resulted No Growth after 48 hours. All Specime... 05/13/16 Blood Culture - Preliminary, Resulted No Growth after 48 hours. All Specime... 05/14/16 MRSA Screen - Final, Complete 05/14/16 Urine Culture, Received Pending FAWAD SHEPPARD MD May 16, 2016 07:32
[2016-05-16 08:10] LABS: ALBUMIN 2.6 GM/DL (3.2-5.2); ALBUMIN/GLOBULIN RATIO 0.7 (1.00-1.93); BILIRUBIN,TOTAL 0.2 MG/DL (0.2-1.0); CALCIUM LEVEL 8.7 MG/DL (8.8-10.2); CREATININE FOR GFR 1.5 MG/DL (0.55-1.02); GLOMERULAR FILTRATION RATE 36.4 (>39); POTASSIUM SERUM 5.1 MEQ/L (3.5-5.1); TOTAL PROTEIN 6.3 GM/DL (6.4-8.2)
[2016-05-16 08:13] LABS: BASO % 0.6 % (0.0-1.0); EOS # 0.2 K/mm3 (0.0-0.50); EOS % 2.8 % (0.0-3.0); LARGE UNSTAINED CELL # 0.1 K/mm3 (0.0-0.4); LARGE UNSTAINED CELL % 1.9 % (0.0-4.0); LYMPH # 1.9 K/mm3 (1.5-4.5); LYMPH % 26.6 % (24.0-44.0); MEAN CORPUSCULAR HEMOGLOBIN 24.7 pg (27.0-33.0); MEAN CORPUSCULAR HGB CONC 29.2 g/dl (32.0-36.5); MEAN CORPUSCULAR VOLUME 84.5 fl (80.0-96.0); MONO # 0.4 K/mm3 (0.0-0.8); MONO % 6.2 % (0.0-5.0); NEUTROPHILS # 4.2 K/mm3 (1.8-7.7); NEUTROPHILS % 61.9 % (36.0-66.0); PLATELET COUNT, AUTOMATED 195 k/mm3 (150-450); RED CELL DISTRIBUTION WIDTH 18.8 % (11.5-14.5); WHITE BLOOD COUNT 6.7 K/mm3 (4.0-10.0)
[2016-05-16] MEDS: LACTULOSE 20 GM/30 ML SYRUP UD PO PRN (08:29)
[2016-05-16] MEDS: LEVEMIR (INSULIN DETEMIR) 1 UNITS/0.01ML SC SCH ×2 (08:30→22:23)
[2016-05-16] MEDS: HumaLOG INSULIN (NovoLOG) PER UNIT SC SCH ×4 (08:30→22:22)
[2016-05-16] MEDS: SUCRALFATE SUSP 1GM/10ML UD PO SCH ×2 (08:31→22:22)
[2016-05-16] MEDS: ASPIRIN 81 MG ENTERIC TAB PO SCH (08:32)
[2016-05-16] MEDS: PREGABALIN 100 MG CAP (LYRICA) PO SCH ×3 (08:32→22:23)
[2016-05-16] MEDS: BACLOFEN 10 MG TAB PO SCH ×2 (08:32→22:23)
[2016-05-16] MEDS: BISOPROLOL FUM 2.5 MG PER 1/2TAB PO SCH (08:32)
[2016-05-16] MEDS: COLCHICINE 0.6 MG TAB PO SCH (08:32)
[2016-05-16] MEDS: FERROUS SULFATE 325MG TAB PO SCH ×2 (08:33→22:23)
[2016-05-16] MEDS: FLUoxetine 20 MG CAP PO SCH (08:34)
[2016-05-16] MEDS: levETIRAcetam 250MG TABLET (KEPPRA) PO SCH ×4 (08:34→22:23)
[2016-05-16] MEDS: guaiFENesin ER 600 MG TAB PO SCH ×2 (08:34→22:23)
[2016-05-16] MEDS: OMEPRAZOLE 20 MG CAP PO SCH (08:34)
[2016-05-16 08:35] LABS: ADD MORPHOLOGY? YES
[2016-05-16] MEDS: NS 1,000 ML IV SCH (08:44)
[2016-05-16] MEDS: BISACODYL 10 MG SUPP PR SCH ×2 (09:00→15:46)
[2016-05-16 09:28] LABS: ABG BASE EXCESS -4.4 (-2.0-2.0); ABG HCO3 22.2 MEQ/L (22.0-26.0); ABG PARTIAL PRESSURE O2 58.5 mmHg (75.0-100.0); ABG STANDARD HCO3 20.7 MEQ/L (22.0-26.0); ABG TOTAL CO2 23.6 MEQ/L (23.0-31.0); ABG pH (ARTERIAL) 7.292 UNITS (7.350-7.450)
[2016-05-16 09:39] LABS: ANISOCYTOSIS 2+; MICROCYTOSIS 1+
[2016-05-16 09:40] LABS: HYPOCHROMASIA 1+
[2016-05-16] MEDS: cefTRIAXone SOD 1 GM in D5W MINI-BAG PLUS 50 ML IV SCH (11:39)
[2016-05-16 14:00] VITALS: BP 137/62
[2016-05-16 22:00] VITALS: BP 145/61
[2016-05-17] MEDS: IPRATROPIUM 0.5MG/ALBUTEROL 2.5MG INH SOL UD 3ML (DUONEB)(J7620) NEB SCH ×4 (02:11→19:48)
[2016-05-17 06:00] VITALS: BP 145/86
[2016-05-17] MEDS: HEPARIN SOD (PORCINE) 5000 UNITS/ML VIAL SC SCH ×3 (06:04→21:15)
[2016-05-17 06:44] LABS: BASO # 0.1 K/mm3 (0.0-0.2); EOS # 0.2 K/mm3 (0.0-0.50); EOS % 3.1 % (0.0-3.0); LARGE UNSTAINED CELL # 0.1 K/mm3 (0.0-0.4); LARGE UNSTAINED CELL % 1.9 % (0.0-4.0); LYMPH # 1.4 K/mm3 (1.5-4.5); LYMPH % 21.5 % (24.0-44.0); MEAN CORPUSCULAR HEMOGLOBIN 25.3 pg (27.0-33.0); MEAN CORPUSCULAR HGB CONC 29.9 g/dl (32.0-36.5); MEAN CORPUSCULAR VOLUME 84.6 fl (80.0-96.0); MONO # 0.4 K/mm3 (0.0-0.8); MONO % 7.2 % (0.0-5.0); NEUTROPHILS # 3.9 K/mm3 (1.8-7.7); NEUTROPHILS % 65.4 % (36.0-66.0); PLATELET COUNT, AUTOMATED 204 k/mm3 (150-450); RED CELL DISTRIBUTION WIDTH 19.1 % (11.5-14.5); WHITE BLOOD COUNT 5.9 K/mm3 (4.0-10.0)
[2016-05-17 06:55] LABS: CALCIUM LEVEL 8.7 MG/DL (8.8-10.2); CREATININE FOR GFR 1.61 MG/DL (0.55-1.02); GLOMERULAR FILTRATION RATE 33.6 (>39); POTASSIUM SERUM 4.4 MEQ/L (3.5-5.1)
[2016-05-17] MEDS: BUDESONIDE 0.5 MG/2 ML INHALATION SUSPENSION INH SCH ×2 (07:21→19:48)
[2016-05-17] MEDS: SUCRALFATE SUSP 1GM/10ML UD PO SCH ×2 (07:41→21:13)
[2016-05-17] MEDS: COLCHICINE 0.6 MG TAB PO SCH (07:41)
[2016-05-17] MEDS: levETIRAcetam 250MG TABLET (KEPPRA) PO SCH ×4 (07:41→21:14)
[2016-05-17] MEDS: guaiFENesin ER 600 MG TAB PO SCH ×2 (07:41→21:14)
[2016-05-17] MEDS: BISOPROLOL FUM 2.5 MG PER 1/2TAB PO SCH (07:42)
[2016-05-17] MEDS: ASPIRIN 81 MG ENTERIC TAB PO SCH (07:42)
[2016-05-17] MEDS: BACLOFEN 10 MG TAB PO SCH ×2 (07:42→21:14)
[2016-05-17] MEDS: PREGABALIN 100 MG CAP (LYRICA) PO SCH ×3 (07:43→21:14)
[2016-05-17] MEDS: FERROUS SULFATE 325MG TAB PO SCH ×2 (07:44→21:14)
[2016-05-17] MEDS: FLUoxetine 20 MG CAP PO SCH (07:44)
[2016-05-17] MEDS: OMEPRAZOLE 20 MG CAP PO SCH (07:45)
[2016-05-17] MEDS: BISACODYL 10 MG SUPP PR SCH (07:45)
[2016-05-17] MEDS: HumaLOG INSULIN (NovoLOG) PER UNIT SC SCH ×4 (07:47→21:15)
[2016-05-17] MEDS: LEVEMIR (INSULIN DETEMIR) 1 UNITS/0.01ML SC SCH ×2 (07:47→21:16)
[2016-05-17] MEDS: LACTULOSE 20 GM/30 ML SYRUP UD PO PRN (07:52)
[2016-05-17 08:57] LABS: ABG BASE EXCESS -3.8 (-2.0-2.0); ABG HCO3 22.3 MEQ/L (22.0-26.0); ABG PARTIAL PRESSURE CO2 45.2 mmHg (35.0-45.0); ABG PARTIAL PRESSURE O2 61.2 mmHg (75.0-100.0); ABG STANDARD HCO3 21.1 MEQ/L (22.0-26.0); ABG TOTAL CO2 23.7 MEQ/L (23.0-31.0); ABG pH (ARTERIAL) 7.312 UNITS (7.350-7.450)
--- NOTE | 2016-05-17 12:46 | IPNPDOC ---
Subjective General Date Seen The patient was seen on 05/17/16. Subjective Chief Complaint/HPI The patient is a 70-year-old female admitted with a reason for visit of Copd Exacerbation. Events since last encounter still complaining of SOB and generalized weakness, sugars has been running high above 400, high urine output. no fever or chills, no chest pain or sob. no abdomina pain nausea or vomiting. Objective Physical Examination General Exam: Positive: Alert, Cooperative, No Acute Distress ENT Exam: Positive: Atraumatic, Mucous membr. moist/pink Chest Exam: Positive: Clear to auscultation, Diminished, Negative: Rales, Rhonchi Heart Exam: Positive: Normal S1, Normal S2, Rate Normal Telemetry: Positive: No significant arrhythmia Abdomen Exam: Positive: Soft, Negative: Tenderness Extremity Exam: Negative: Clubbing, Cyanosis, Edema, Normal pulses, Other, Swelling, Tenderness Assessment /Plan Problems Problems: (1) Diabetes mellitus with hyperglycemia, with long-term current use of insulin Status: Acute Problem Text: uncontrolled sugars greater than 700 without ketosis or without coma. was on insulin infusion now back to home regimen of levemir and lispro as per sliding scale. levemir dosage increased to 90 units bid. will restart diet. (2) Acute on chronic respiratory failure with hypoxia and hypercapnia Status: Acute Problem Text: improved with decrease in oxygenation did not require BIPAP will recheck ABG (3) MATT on CPAP Status: Chronic Problem Text: will continue cpap (4) UTI (urinary tract infection) Status: Acute Problem Text: On ceftriaxone. urine cultures e coli pansensitive. 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 will continue to hold lasix as having diuresis due to high sugars. Plan/VTE VTE Prophylaxis Ordered?: Yes VS, I&O, 24H, Fishbone Vital Signs/I&O Vital Signs Date Time Temp Pulse Resp B/P Pulse Ox O2 Delivery O2 Flow Rate FiO2 05/17/16 10:04 Room Air 05/17/16 07:42 74 145/86 05/17/16 06:00 98.9 20 90 05/16/16 19:20 2.0 I&O- Last 24 Hours up to 6 AM 05/17/16 06:00 Intake Total 3275 ml Output Total 5000 ml Balance -1725 ml Laboratory Data 24H LABS Laboratory Tests 2 05/16/16 17:07: Bedside Glucose (Misc Panel) 407H 05/16/16 19:57: Bedside Glucose (Misc Panel) 417H 05/17/16 06:17: Anion Gap 8, White Blood Count 5.9, Red Blood Count 4.10, Hemoglobin 10.4L, Hematocrit 34.7L, Mean Corpuscular Volume 84.6, Mean Corpuscular Hemoglobin 25.3L, Mean Corpuscular Hemoglobin Concent 29.9L, Red Cell Distribution Width 19.1H, Platelet Count 204, Neutrophils (%) (Auto) 65.4, Lymphocytes (%) (Auto) 21.5L, Monocytes (%) (Auto) 7.2H, Eosinophils (%) (Auto) 3.1H, Basophils (%) ( Auto) 1.0, Neutrophils # (Auto) 3.9, Lymphocytes # (Auto) 1.4L, Monocytes # ( Auto) 0.4, Eosinophils # (Auto) 0.2, Basophils # (Auto) 0.1, Blood Urea Nitrogen 26H, Creatinine 1.61H, Sodium Level 142, Potassium Level 4.4, Chloride Level 108H, Carbon Dioxide Level 26, Calcium Level 8.7L, Glomerular Filtration Rate 33.6L, Large Unclassified Cells # 0.1, Large Unclassified Cells % 1.9 05/17/16 08:49: Arterial Blood pH 7.312L, Arterial Blood Partial Pressure CO2 45.2H, Arterial Blood Partial Pressure O2 61.2L, Arterial Blood Total CO2 23.7, Arterial Blood HCO3 22.3, Arterial Blood Base Excess -3.8L, Arterial Blood Oxygen Saturation 89.2L, Blood Gas Bicarbonate Standard 21.1L 05/17/16 12:04: Bedside Glucose (Misc Panel) 340H CBC/BMP Laboratory Tests 05/17/16 06:17 Calcium Level 8.7 L, Red Blood Count 4.10, Mean Corpuscular Volume 84.6, Mean Corpuscular Hemoglobin 25.3 L, Mean Corpuscular Hemoglobin Concent 29.9 L, Red Cell Distribution Width 19.1 H, Neutrophils (%) (Auto) 65.4, Lymphocytes (%) ( Auto) 21.5 L, Monocytes (%) (Auto) 7.2 H, Eosinophils (%) (Auto) 3.1 H, Basophils (%) (Auto) 1.0, Neutrophils # (Auto) 3.9, Lymphocytes # (Auto) 1.4 L, Monocytes # (Auto) 0.4, Eosinophils # (Auto) 0.2, Basophils # (Auto) 0.1 Microbiology Microbiology 05/14/16 Blood Culture - Preliminary, Resulted No Growth after 72 hours. All specime... 05/13/16 Blood Culture - Preliminary, Resulted No Growth after 72 hours. All specime... 05/14/16 MRSA Screen - Final, Complete 05/14/16 Urine Culture - Final, Complete Escherichia Coli FAWAD SHEPPARD MD May 17, 2016 12:46
[2016-05-17] MEDS: cefTRIAXone SOD 1 GM in D5W MINI-BAG PLUS 50 ML IV SCH (13:17)
[2016-05-17 14:00] VITALS: BP 183/79
[2016-05-17] MEDS ORDERED: FUROSEMIDE 40 MG/4 ML VIAL (J1940) IV ONE (15:15)
[2016-05-17 22:00] VITALS: BP 140/63
[2016-05-18] MEDS: IPRATROPIUM 0.5MG/ALBUTEROL 2.5MG INH SOL UD 3ML (DUONEB)(J7620) NEB SCH ×4 (01:47→19:17)
[2016-05-18] MEDS: HEPARIN SOD (PORCINE) 5000 UNITS/ML VIAL SC SCH ×3 (05:17→21:30)
[2016-05-18 05:59] LABS: BASO % 0.7 % (0.0-1.0); EOS # 0.2 K/mm3 (0.0-0.50); EOS % 4.1 % (0.0-3.0); LARGE UNSTAINED CELL # 0.1 K/mm3 (0.0-0.4); LARGE UNSTAINED CELL % 2.5 % (0.0-4.0); LYMPH # 1.3 K/mm3 (1.5-4.5); MEAN CORPUSCULAR HEMOGLOBIN 24.6 pg (27.0-33.0); MEAN CORPUSCULAR HGB CONC 29.7 g/dl (32.0-36.5); MEAN CORPUSCULAR VOLUME 82.8 fl (80.0-96.0); MONO # 0.3 K/mm3 (0.0-0.8); NEUTROPHILS # 3.2 K/mm3 (1.8-7.7); NEUTROPHILS % 61.7 % (36.0-66.0); PLATELET COUNT, AUTOMATED 196 k/mm3 (150-450); RED CELL DISTRIBUTION WIDTH 18.7 % (11.5-14.5); WHITE BLOOD COUNT 5.1 K/mm3 (4.0-10.0)
[2016-05-18 06:00] VITALS: BP 158/71
[2016-05-18 06:14] LABS: ADD MORPHOLOGY? YES
[2016-05-18 06:15] LABS: ANISOCYTOSIS 2+; HYPOCHROMASIA 3+
[2016-05-18 06:25] LABS: CALCIUM LEVEL 8.2 MG/DL (8.8-10.2); CREATININE FOR GFR 1.16 MG/DL (0.55-1.02); POTASSIUM SERUM 3.7 MEQ/L (3.5-5.1)
[2016-05-18] MEDS: BUDESONIDE 0.5 MG/2 ML INHALATION SUSPENSION INH SCH ×2 (07:15→19:17)
[2016-05-18] MEDS: BISACODYL 10 MG SUPP PR SCH (09:00)
[2016-05-18] MEDS: HumaLOG INSULIN (NovoLOG) PER UNIT SC SCH ×4 (09:06→21:31)
[2016-05-18] MEDS: LEVEMIR (INSULIN DETEMIR) 1 UNITS/0.01ML SC SCH ×2 (09:06→21:00)
[2016-05-18] MEDS: SUCRALFATE SUSP 1GM/10ML UD PO SCH ×2 (09:07→21:27)
[2016-05-18] MEDS: guaiFENesin ER 600 MG TAB PO SCH ×2 (09:07→21:29)
[2016-05-18] MEDS: ASPIRIN 81 MG ENTERIC TAB PO SCH (09:08)
[2016-05-18] MEDS: PREGABALIN 100 MG CAP (LYRICA) PO SCH ×3 (09:08→21:30)
[2016-05-18] MEDS: OMEPRAZOLE 20 MG CAP PO SCH (09:08)
[2016-05-18] MEDS: BISOPROLOL FUM 2.5 MG PER 1/2TAB PO SCH (09:08)
[2016-05-18] MEDS: levETIRAcetam 250MG TABLET (KEPPRA) PO SCH ×4 (09:08→21:28)
[2016-05-18] MEDS: COLCHICINE 0.6 MG TAB PO SCH (09:08)
[2016-05-18] MEDS: FLUoxetine 20 MG CAP PO SCH (09:09)
[2016-05-18] MEDS: FERROUS SULFATE 325MG TAB PO SCH ×2 (09:09→21:00)
[2016-05-18] MEDS: BACLOFEN 10 MG TAB PO SCH ×2 (09:09→21:30)
[2016-05-18] MEDS: cefTRIAXone SOD 1 GM in D5W MINI-BAG PLUS 50 ML IV SCH (12:52)
[2016-05-18 14:00] VITALS: BP 177/77
[2016-05-18] MEDS ORDERED: SODIUM CHLORIDE 0.9% INJ 10 ML SYR IV PRN (14:45)
[2016-05-18] MEDS: ACETAMINOPHEN 325 MG TAB PO PRN (15:29)
--- NOTE | 2016-05-18 15:34 | IPNPDOC ---
Subjective General Date Seen The patient was seen on 05/18/16. Subjective Chief Complaint/HPI The patient is a 70-year-old female admitted with a reason for visit of Copd Exacerbation. ENT: Denies: Dysphagia, Ear Pain, Head Aches Pulmonary: Reports: Cough, Dyspnea Objective Physical Examination General Exam: Positive: Alert, Cooperative, No Acute Distress ENT Exam: Positive: Atraumatic, Mucous membr. moist/pink Chest Exam: Positive: Clear to auscultation, Diminished, Negative: Rales, Rhonchi Heart Exam: Positive: Normal S1, Normal S2, Rate Normal Telemetry: Positive: No significant arrhythmia Abdomen Exam: Positive: Soft, Negative: Tenderness Extremity Exam: Negative: Clubbing, Cyanosis, Edema, Normal pulses, Other, Swelling, Tenderness Assessment /Plan Problems Problems: (1) Diabetes mellitus with hyperglycemia, with long-term current use of insulin Status: Chronic Problem Text: improving, continue levemir and ISS consistent carb diet (2) Acute on chronic respiratory failure with hypoxia and hypercapnia Status: Acute Response to Treatment: Improving Problem Text: improved with decrease in oxygenation did not require BIPAP (3) MATT on CPAP Status: Chronic Problem Text: will continue cpap (4) UTI (urinary tract infection) Status: Acute Problem Text: On ceftriaxone. urine cultures e coli pansensitive. 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 will continue to hold lasix as having diuresis due to high sugars. Plan/VTE VTE Prophylaxis Ordered?: Yes VS, I&O, 24H, Fishbone Vital Signs/I&O Vital Signs Date Time Temp Pulse Resp B/P Pulse Ox O2 Delivery O2 Flow Rate FiO2 05/18/16 09:08 68 158/71 05/18/16 06:00 96.8 16 94 Nasal Cannula 2.0 I&O- Last 24 Hours up to 6 AM 05/18/16 05:59 Intake Total 1680 ml Output Total 9375 ml Balance -7695 ml Laboratory Data 24H LABS Laboratory Tests 2 05/17/16 16:41: Bedside Glucose (Misc Panel) 391H 05/17/16 20:27: Bedside Glucose (Misc Panel) 363H 05/18/16 05:19: Anion Gap 9, Anisocytosis 2+, White Blood Count 5.1, Red Blood Count 4.07, Hemoglobin 10.0L, Hematocrit 33.7L, Mean Corpuscular Volume 82.8, Mean Corpuscular Hemoglobin 24.6L, Mean Corpuscular Hemoglobin Concent 29.7L, Red Cell Distribution Width 18.7H, Platelet Count 196, Neutrophils (%) (Auto) 61.7, Lymphocytes (%) (Auto) 25.0, Monocytes (%) (Auto) 6.0H, Eosinophils (%) (Auto) 4.1H, Basophils (%) (Auto) 0.7, Neutrophils # (Auto) 3.2, Lymphocytes # (Auto) 1.3L, Monocytes # (Auto) 0.3, Eosinophils # (Auto) 0.2, Basophils # (Auto) 0.0, Blood Urea Nitrogen 19H, Creatinine 1.16H, Sodium Level 145, Potassium Level 3.7 , Chloride Level 107, Carbon Dioxide Level 29, Calcium Level 8.2L, Glomerular Filtration Rate 49.0, Hypochromasia 3+, Large Unclassified Cells # 0.1, Large Unclassified Cells % 2.5, Platelet Estimate NORMAL, Red Blood Cell Morphology NORMAL 05/18/16 12:17: Bedside Glucose (Misc Panel) 250H CBC/BMP Laboratory Tests 05/18/16 05:19 Calcium Level 8.2 L, Red Blood Count 4.07, Mean Corpuscular Volume 82.8, Mean Corpuscular Hemoglobin 24.6 L, Mean Corpuscular Hemoglobin Concent 29.7 L, Red Cell Distribution Width 18.7 H, Neutrophils (%) (Auto) 61.7, Lymphocytes (%) ( Auto) 25.0, Monocytes (%) (Auto) 6.0 H, Eosinophils (%) (Auto) 4.1 H, Basophils (%) (Auto) 0.7, Neutrophils # (Auto) 3.2, Lymphocytes # (Auto) 1.3 L, Monocytes # (Auto) 0.3, Eosinophils # (Auto) 0.2, Basophils # (Auto) 0.0 Microbiology Microbiology 05/14/16 Blood Culture - Preliminary, Resulted No Growth after 72 hours. All specime... 05/13/16 Blood Culture - Preliminary, Resulted No Growth after 72 hours. All specime... 05/14/16 MRSA Screen - Final, Complete 05/14/16 Urine Culture - Final, Complete Escherichia Coli ARTIE BASS DO May 18, 2016 15:34
[2016-05-18] MEDS ORDERED: traMADol 50 MG TAB PO PRN (18:00)
[2016-05-18] MEDS: SODIUM CHLORIDE 0.9% INJ 10 ML SYR IV SCH (18:02)
[2016-05-18 22:00] VITALS: BP 154/67
[2016-05-19] MEDS: IPRATROPIUM 0.5MG/ALBUTEROL 2.5MG INH SOL UD 3ML (DUONEB)(J7620) NEB SCH ×4 (01:19→20:07)
[2016-05-19] MEDS: HEPARIN SOD (PORCINE) 5000 UNITS/ML VIAL SC SCH ×3 (05:22→20:49)
[2016-05-19 05:45] LABS: BASO # 0.1 K/mm3 (0.0-0.2); BASO % 1.1 % (0.0-1.0); EOS # 0.2 K/mm3 (0.0-0.50); EOS % 3.8 % (0.0-3.0); LARGE UNSTAINED CELL # 0.1 K/mm3 (0.0-0.4); LARGE UNSTAINED CELL % 1.9 % (0.0-4.0); LYMPH # 1.4 K/mm3 (1.5-4.5); LYMPH % 25.1 % (24.0-44.0); MEAN CORPUSCULAR HGB CONC 29.8 g/dl (32.0-36.5); MEAN CORPUSCULAR VOLUME 83.9 fl (80.0-96.0); MONO # 0.3 K/mm3 (0.0-0.8); MONO % 5.8 % (0.0-5.0); NEUTROPHILS # 3.3 K/mm3 (1.8-7.7); NEUTROPHILS % 62.2 % (36.0-66.0); PLATELET COUNT, AUTOMATED 217 k/mm3 (150-450); RED CELL DISTRIBUTION WIDTH 19.2 % (11.5-14.5); WHITE BLOOD COUNT 5.2 K/mm3 (4.0-10.0)
[2016-05-19 06:00] VITALS: BP 176/74
[2016-05-19 06:20] LABS: CALCIUM LEVEL 8.9 MG/DL (8.8-10.2); CREATININE FOR GFR 1.15 MG/DL (0.55-1.02); GLOMERULAR FILTRATION RATE 49.5 (>39); POTASSIUM SERUM 3.7 MEQ/L (3.5-5.1)
[2016-05-19] MEDS: FLUoxetine 20 MG CAP PO SCH (08:13)
[2016-05-19] MEDS: guaiFENesin ER 600 MG TAB PO SCH ×2 (08:13→20:46)
[2016-05-19] MEDS: COLCHICINE 0.6 MG TAB PO SCH (08:13)
[2016-05-19] MEDS: OMEPRAZOLE 20 MG CAP PO SCH (08:13)
[2016-05-19] MEDS: SUCRALFATE SUSP 1GM/10ML UD PO SCH ×2 (08:14→20:48)
[2016-05-19] MEDS: BACLOFEN 10 MG TAB PO SCH ×2 (08:14→20:46)
[2016-05-19] MEDS: levETIRAcetam 250MG TABLET (KEPPRA) PO SCH ×4 (08:14→20:47)
[2016-05-19] MEDS: ASPIRIN 81 MG ENTERIC TAB PO SCH (08:14)
[2016-05-19] MEDS: BISOPROLOL FUM 2.5 MG PER 1/2TAB PO SCH (08:15)
[2016-05-19] MEDS: PREGABALIN 100 MG CAP (LYRICA) PO SCH ×3 (08:15→20:47)
[2016-05-19] MEDS: HumaLOG INSULIN (NovoLOG) PER UNIT SC SCH ×4 (08:15→20:53)
[2016-05-19] MEDS: LACTULOSE 20 GM/30 ML SYRUP UD PO PRN (08:15)
[2016-05-19] MEDS: LEVEMIR (INSULIN DETEMIR) 1 UNITS/0.01ML SC SCH ×2 (08:16→20:49)
[2016-05-19] MEDS: FERROUS SULFATE 325MG TAB PO SCH ×2 (08:17→21:00)
[2016-05-19] MEDS: SODIUM CHLORIDE 0.9% INJ 10 ML SYR IV SCH (08:19)
[2016-05-19] MEDS: BISACODYL 10 MG SUPP PR SCH (08:19)
[2016-05-19] MEDS: BUDESONIDE 0.5 MG/2 ML INHALATION SUSPENSION INH SCH ×2 (08:30→20:07)
[2016-05-19] MEDS: cefTRIAXone SOD 1 GM in D5W MINI-BAG PLUS 50 ML IV SCH (11:23)
[2016-05-19 14:00] VITALS: BP 175/75
[2016-05-19] MEDS: ACETAMINOPHEN 325 MG TAB PO PRN ×2 (14:25→20:48)
[2016-05-19 22:00] VITALS: BP 160/67
[2016-05-20] MEDS: IPRATROPIUM 0.5MG/ALBUTEROL 2.5MG INH SOL UD 3ML (DUONEB)(J7620) NEB SCH ×4 (01:43→20:01)
[2016-05-20] MEDS: HEPARIN SOD (PORCINE) 5000 UNITS/ML VIAL SC SCH ×3 (05:33→21:04)
[2016-05-20 05:39] LABS: BASO % 0.7 % (0.0-1.0); EOS # 0.2 K/mm3 (0.0-0.50); EOS % 3.6 % (0.0-3.0); LARGE UNSTAINED CELL # 0.1 K/mm3 (0.0-0.4); LARGE UNSTAINED CELL % 2.6 % (0.0-4.0); LYMPH # 1.2 K/mm3 (1.5-4.5); LYMPH % 24.6 % (24.0-44.0); MEAN CORPUSCULAR HEMOGLOBIN 25.3 pg (27.0-33.0); MEAN CORPUSCULAR HGB CONC 29.9 g/dl (32.0-36.5); MEAN CORPUSCULAR VOLUME 84.8 fl (80.0-96.0); MONO # 0.3 K/mm3 (0.0-0.8); MONO % 5.6 % (0.0-5.0); NEUTROPHILS # 3.1 K/mm3 (1.8-7.7); NEUTROPHILS % 62.8 % (36.0-66.0); PLATELET COUNT, AUTOMATED 227 k/mm3 (150-450)
[2016-05-20 06:00] VITALS: BP 140/66
[2016-05-20 06:34] LABS: CALCIUM LEVEL 8.7 MG/DL (8.8-10.2); CREATININE FOR GFR 1.06 MG/DL (0.55-1.02); GLOMERULAR FILTRATION RATE 54.4 (>39); POTASSIUM SERUM 3.7 MEQ/L (3.5-5.1)
[2016-05-20] MEDS: BUDESONIDE 0.5 MG/2 ML INHALATION SUSPENSION INH SCH ×2 (07:37→20:01)
[2016-05-20] MEDS: HumaLOG INSULIN (NovoLOG) PER UNIT SC SCH ×4 (08:50→21:00)
[2016-05-20 09:00] VITALS: BP 144/65
[2016-05-20] MEDS: BISACODYL 10 MG SUPP PR SCH (09:00)
[2016-05-20] MEDS: SODIUM CHLORIDE 0.9% INJ 10 ML SYR IV SCH (09:00)
--- NOTE | 2016-05-20 09:38 | IPNPDOC ---
Subjective General Date Seen The patient was seen on 05/19/16. Subjective Chief Complaint/HPI The patient is a 70-year-old female admitted with a reason for visit of Copd Exacerbation. Events since last encounter pt seen and examined no overnight events, but still complaining of fatigue Objective Physical Examination General Exam: Positive: Alert, Cooperative, No Acute Distress ENT Exam: Positive: Atraumatic, Mucous membr. moist/pink Chest Exam: Positive: Clear to auscultation, Diminished, Negative: Rales, Rhonchi Heart Exam: Positive: Normal S1, Normal S2, Rate Normal Telemetry: Positive: No significant arrhythmia Abdomen Exam: Positive: Soft, Negative: Tenderness Extremity Exam: Negative: Clubbing, Cyanosis, Edema, Normal pulses, Other, Swelling, Tenderness Assessment /Plan Problems Problems: (1) Diabetes mellitus with hyperglycemia, with long-term current use of insulin Status: Chronic Problem Text: improving, continue levemir and ISS consistent carb diet (2) Acute on chronic respiratory failure with hypoxia and hypercapnia Status: Acute Response to Treatment: Improving Problem Text: improved with decrease in oxygenation did not require BIPAP (3) MATT on CPAP Status: Chronic Problem Text: will continue cpap (4) UTI (urinary tract infection) Status: Acute Problem Text: On ceftriaxone. urine cultures e coli pansensitive. 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 will continue to hold lasix as having diuresis due to high sugars. Plan/VTE VTE Prophylaxis Ordered?: Yes VS, I&O, 24H, Fishbone Vital Signs/I&O Vital Signs Date Time Temp Pulse Resp B/P Pulse Ox O2 Delivery O2 Flow Rate FiO2 05/19/16 14:00 97.4 76 18 175/75 91 Room Air 05/19/16 06:00 2.0 I&O- Last 24 Hours up to 6 AM 05/19/16 06:00 Intake Total 1795 ml Output Total 2250 ml Balance -455 ml Laboratory Data 24H LABS Laboratory Tests 2 05/18/16 20:51: Bedside Glucose (Misc Panel) 320H 05/19/16 05:21: Anion Gap 7L, White Blood Count 5.2, Red Blood Count 4.17, Hemoglobin 10.4L, Hematocrit 35.0L, Mean Corpuscular Volume 83.9, Mean Corpuscular Hemoglobin 25.0L, Mean Corpuscular Hemoglobin Concent 29.8L, Red Cell Distribution Width 19.2H, Platelet Count 217, Neutrophils (%) (Auto) 62.2, Lymphocytes (%) (Auto) 25.1, Monocytes (%) (Auto) 5.8H, Eosinophils (%) (Auto) 3.8H, Basophils (%) ( Auto) 1.1H, Neutrophils # (Auto) 3.3, Lymphocytes # (Auto) 1.4L, Monocytes # ( Auto) 0.3, Eosinophils # (Auto) 0.2, Basophils # (Auto) 0.1, Blood Urea Nitrogen 17, Creatinine 1.15H, Sodium Level 147H, Potassium Level 3.7, Chloride Level 111H, Carbon Dioxide Level 29, Calcium Level 8.9, Glomerular Filtration Rate 49.5, Large Unclassified Cells # 0.1, Large Unclassified Cells % 1.9 05/19/16 11:14: Bedside Glucose (Misc Panel) 362H 05/19/16 17:09: Bedside Glucose (Misc Panel) 287H CBC/BMP Laboratory Tests 05/19/16 05:21 Calcium Level 8.9, Red Blood Count 4.17, Mean Corpuscular Volume 83.9, Mean Corpuscular Hemoglobin 25.0 L, Mean Corpuscular Hemoglobin Concent 29.8 L, Red Cell Distribution Width 19.2 H, Neutrophils (%) (Auto) 62.2, Lymphocytes (%) ( Auto) 25.1, Monocytes (%) (Auto) 5.8 H, Eosinophils (%) (Auto) 3.8 H, Basophils (%) (Auto) 1.1 H, Neutrophils # (Auto) 3.3, Lymphocytes # (Auto) 1.4 L, Monocytes # (Auto) 0.3, Eosinophils # (Auto) 0.2, Basophils # (Auto) 0.1 Microbiology Microbiology 05/14/16 Blood Culture - Final, Complete NO GROWTH AFTER 5 DAYS 05/13/16 Blood Culture - Final, Complete NO GROWTH AFTER 5 DAYS 05/14/16 MRSA Screen - Final, Complete 05/14/16 Urine Culture - Final, Complete Escherichia Coli ARTIE BASS DO May 19, 2016 19:41
--- NOTE | 2016-05-20 09:54 | IPNPDOC ---
Subjective Date Seen The patient was seen on 05/20/16. Subjective Chief Complaint/HPI The patient is a 70-year-old female admitted with a reason for visit of Copd Exacerbation. Events since last encounter pt seen and examined, doing well but states she is not back to her baseline yet , she is usually short of breath with activity but she doesn't ambulate, uses only wheel chair to get around Constitutional: Denies: Chills, Fever, Night Sweats Objective Physical Examination General Exam: Positive: Alert, Cooperative, No Acute Distress ENT Exam: Positive: Atraumatic, Mucous membr. moist/pink Chest Exam: Positive: Clear to auscultation, Diminished, Negative: Rales, Rhonchi Heart Exam: Positive: Normal S1, Normal S2, Rate Normal Telemetry: Positive: No significant arrhythmia Abdomen Exam: Positive: Soft, Negative: Tenderness Extremity Exam: Negative: Clubbing, Cyanosis, Edema, Normal pulses, Other, Swelling, Tenderness Assessment /Plan Problems (1) UTI (urinary tract infection) Status: Acute Problem Text: On ceftriaxone. urine cultures e coli pansensitive. (2) Diabetes mellitus with hyperglycemia, with long-term current use of insulin Status: Chronic Problem Text: * controlled with 78 units of levemir BID * continue ISS and accu checks * continue consistent carb diet (3) Acute on chronic respiratory failure with hypoxia and hypercapnia Status: Resolved Response to Treatment: Improving Problem Text: improved (4) MATT on CPAP Status: Chronic Problem Text: will continue cpap (5) Acute renal failure superimposed on stage 3 chronic kidney disease Status: Resolved Problem Text: will start pt on her torsemide again (6) Obesity Status: Chronic (7) HTN (hypertension) Status: Chronic (8) Paralyzed hemidiaphragm Status: Chronic (9) Hepatitis C Status: Chronic (10) Seizure disorder Status: Chronic (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 Plan/VTE VTE Prophylaxis Ordered?: Yes VS, I&O, 24H, Fishbone Vital Signs/I&O Vital Signs Date Time Temp Pulse Resp B/P Pulse Ox O2 Delivery O2 Flow Rate FiO2 05/20/16 06:00 96.8 62 16 140/66 93 NIPPV (BIPAP/CPAP) 2.0 I&O- Last 24 Hours up to 6 AM 05/20/16 06:00 Intake Total 1260 ml Output Total 700 ml Balance 560 ml Laboratory Data 24H LABS Laboratory Tests 2 05/19/16 11:14: Bedside Glucose (Misc Panel) 362H 05/19/16 17:09: Bedside Glucose (Misc Panel) 287H 05/19/16 20:15: Bedside Glucose (Misc Panel) 285H 05/20/16 05:32: Anion Gap 9, White Blood Count 5.0, Red Blood Count 4.21, Hemoglobin 10.7L, Hematocrit 35.7L, Mean Corpuscular Volume 84.8, Mean Corpuscular Hemoglobin 25.3L, Mean Corpuscular Hemoglobin Concent 29.9L, Red Cell Distribution Width 19.0H, Platelet Count 227, Neutrophils (%) (Auto) 62.8, Lymphocytes (%) (Auto) 24.6, Monocytes (%) (Auto) 5.6H, Eosinophils (%) (Auto) 3.6H, Basophils (%) ( Auto) 0.7, Neutrophils # (Auto) 3.1, Lymphocytes # (Auto) 1.2L, Monocytes # ( Auto) 0.3, Eosinophils # (Auto) 0.2, Basophils # (Auto) 0.0, Blood Urea Nitrogen 12, Creatinine 1.06H, Sodium Level 148H, Potassium Level 3.7, Chloride Level 112H, Carbon Dioxide Level 27, Calcium Level 8.7L, Glomerular Filtration Rate 54.4, Large Unclassified Cells # 0.1, Large Unclassified Cells % 2.6 CBC/BMP Laboratory Tests 05/20/16 05:32 Calcium Level 8.7 L, Red Blood Count 4.21, Mean Corpuscular Volume 84.8, Mean Corpuscular Hemoglobin 25.3 L, Mean Corpuscular Hemoglobin Concent 29.9 L, Red Cell Distribution Width 19.0 H, Neutrophils (%) (Auto) 62.8, Lymphocytes (%) ( Auto) 24.6, Monocytes (%) (Auto) 5.6 H, Eosinophils (%) (Auto) 3.6 H, Basophils (%) (Auto) 0.7, Neutrophils # (Auto) 3.1, Lymphocytes # (Auto) 1.2 L, Monocytes # (Auto) 0.3, Eosinophils # (Auto) 0.2, Basophils # (Auto) 0.0 Microbiology Microbiology 05/14/16 Blood Culture - Final, Complete NO GROWTH AFTER 5 DAYS 05/13/16 Blood Culture - Final, Complete NO GROWTH AFTER 5 DAYS 05/14/16 MRSA Screen - Final, Complete 05/14/16 Urine Culture - Final, Complete Escherichia Coli ARTIE BASS DO May 20, 2016 09:54
[2016-05-20] MEDS: PREGABALIN 100 MG CAP (LYRICA) PO SCH ×3 (10:37→21:05)
[2016-05-20] MEDS: LEVEMIR (INSULIN DETEMIR) 1 UNITS/0.01ML SC SCH ×2 (10:52→21:05)
[2016-05-20] MEDS: guaiFENesin ER 600 MG TAB PO SCH ×2 (10:53→21:05)
[2016-05-20] MEDS: BACLOFEN 10 MG TAB PO SCH ×2 (10:53→21:05)
[2016-05-20] MEDS: FERROUS SULFATE 325MG TAB PO SCH ×2 (10:53→21:05)
[2016-05-20] MEDS: ACETAMINOPHEN 325 MG TAB PO PRN (10:54)
[2016-05-20] MEDS: OMEPRAZOLE 20 MG CAP PO SCH (10:55)
[2016-05-20] MEDS: SUCRALFATE SUSP 1GM/10ML UD PO SCH ×2 (10:55→21:00)
[2016-05-20] MEDS: FLUoxetine 20 MG CAP PO SCH (10:55)
[2016-05-20] MEDS: COLCHICINE 0.6 MG TAB PO SCH (10:55)
[2016-05-20] MEDS: ASPIRIN 81 MG ENTERIC TAB PO SCH (10:56)
[2016-05-20] MEDS: levETIRAcetam 250MG TABLET (KEPPRA) PO SCH ×4 (10:56→21:05)
[2016-05-20 10:57] VITALS: BP 144/65
[2016-05-20] MEDS: cefTRIAXone SOD 1 GM in D5W MINI-BAG PLUS 50 ML IV SCH (10:57)
[2016-05-20] MEDS: BISOPROLOL FUM 2.5 MG PER 1/2TAB PO SCH (10:57)
[2016-05-20] MEDS: LACTULOSE 20 GM/30 ML SYRUP UD PO PRN (11:03)
[2016-05-20] MEDS ORDERED: FLUCONAZOLE 50MG TABLET PO ONE (12:00)
[2016-05-20] MEDS: TORSEMIDE (DEMADEX) 50 MG PER 1/2 TAB PO SCH ×2 (12:08→16:55)
[2016-05-20 14:00] VITALS: BP 144/71
[2016-05-20 14:01] VITALS: BP 165/72
[2016-05-20 22:00] VITALS: BP 184/80
[2016-05-21] MEDS: IPRATROPIUM 0.5MG/ALBUTEROL 2.5MG INH SOL UD 3ML (DUONEB)(J7620) NEB SCH ×2 (01:27→07:28)
[2016-05-21 06:00] VITALS: BP 142/78
[2016-05-21] MEDS: HEPARIN SOD (PORCINE) 5000 UNITS/ML VIAL SC SCH (06:10)
[2016-05-21 06:37] LABS: BASO % 0.6 % (0.0-1.0); EOS # 0.2 K/mm3 (0.0-0.50); EOS % 3.5 % (0.0-3.0); LARGE UNSTAINED CELL # 0.2 K/mm3 (0.0-0.4); LARGE UNSTAINED CELL % 2.9 % (0.0-4.0); LYMPH # 1.2 K/mm3 (1.5-4.5); LYMPH % 21.1 % (24.0-44.0); MEAN CORPUSCULAR HGB CONC 29.9 g/dl (32.0-36.5); MEAN CORPUSCULAR VOLUME 83.4 fl (80.0-96.0); MONO # 0.3 K/mm3 (0.0-0.8); MONO % 5.5 % (0.0-5.0); NEUTROPHILS # 3.8 K/mm3 (1.8-7.7); NEUTROPHILS % 66.4 % (36.0-66.0); PLATELET COUNT, AUTOMATED 245 k/mm3 (150-450); RED CELL DISTRIBUTION WIDTH 19.1 % (11.5-14.5); WHITE BLOOD COUNT 5.7 K/mm3 (4.0-10.0)
[2016-05-21] MEDS: BUDESONIDE 0.5 MG/2 ML INHALATION SUSPENSION INH SCH (07:28)
[2016-05-21 07:53] LABS: CALCIUM LEVEL 8.5 MG/DL (8.8-10.2); CREATININE FOR GFR 1.1 MG/DL (0.55-1.02); GLOMERULAR FILTRATION RATE 52.1 (>39); POTASSIUM SERUM 3.1 MEQ/L (3.5-5.1)
[2016-05-21 08:12] LABS: MAGNESIUM LEVEL 1.9 MG/DL (1.8-2.4)
[2016-05-21] MEDS ORDERED: POTASSIUM CHLORIDE 10 MEQ SR TABLET PO ONE (08:15)
[2016-05-21] MEDS: PREGABALIN 100 MG CAP (LYRICA) PO SCH (08:32)
[2016-05-21] MEDS: HumaLOG INSULIN (NovoLOG) PER UNIT SC SCH ×2 (08:33→12:00)
[2016-05-21] MEDS: SODIUM CHLORIDE 0.9% INJ 10 ML SYR IV SCH (08:34)
[2016-05-21] MEDS ORDERED: KCL 10MEQ IN 100ML SWI (KRUN) 10 MEQ in APPROPRIATE DILUENT 1 EA IV SCH ×2 (09:00)
[2016-05-21 09:39] VITALS: BP 165/74
[2016-05-21] MEDS: COLCHICINE 0.6 MG TAB PO SCH (10:28)
[2016-05-21] MEDS: SUCRALFATE SUSP 1GM/10ML UD PO SCH (10:29)
[2016-05-21] MEDS: levETIRAcetam 250MG TABLET (KEPPRA) PO SCH (10:29)
[2016-05-21] MEDS: guaiFENesin ER 600 MG TAB PO SCH (10:29)
[2016-05-21] MEDS: TORSEMIDE (DEMADEX) 50 MG PER 1/2 TAB PO SCH (10:30)
[2016-05-21] MEDS: BISOPROLOL FUM 2.5 MG PER 1/2TAB PO SCH (10:30)
[2016-05-21] MEDS: OMEPRAZOLE 20 MG CAP PO SCH (10:31)
[2016-05-21] MEDS: FLUoxetine 20 MG CAP PO SCH (10:31)
[2016-05-21] MEDS: FERROUS SULFATE 325MG TAB PO SCH ×2 (10:31→10:39)
[2016-05-21] MEDS: ASPIRIN 81 MG ENTERIC TAB PO SCH (10:31)
[2016-05-21] MEDS: LEVEMIR (INSULIN DETEMIR) 1 UNITS/0.01ML SC SCH (10:32)
[2016-05-21] MEDS: BACLOFEN 10 MG TAB PO SCH (10:32)
[2016-05-21] MEDS: BISACODYL 10 MG SUPP PR SCH (10:33)
[2016-05-21] MEDS ORDERED: ASPI81TAEC PO (10:41)
[2016-05-21] MEDS: cefTRIAXone SOD 1 GM in D5W MINI-BAG PLUS 50 ML IV SCH (11:00)
--- NOTE | 2016-05-23 17:03 | DSES ---
DATE OF ADMISSION: 05/14/2016 DATE OF DISCHARGE: 05/21/2016 REASON FOR ADMISSION: Elevated blood sugar, shortness of breath. FINAL DIAGNOSES: 1. Urinary tract infection. 2. Diabetes with hyperglycemia. 3. Acute on chronic respiratory failure with hypoxia, hypercapnia. 4. Obstructive sleep apnea on continuous positive airway pressure (C-PAP) 5. Acute kidney failure, stage III. 6. Obesity. 7. Hypertension. 8. Paralyzed hemidiaphragm. 9. Hepatitis C. 10. Seizure disorder. 11. Chronic back pain. 12. Congestive heart failure. HISTORY OF PRESENT ILLNESS: The patient is a 70-year-old female with multiple comorbidities who presented to the emergency room complaining of shortness of breath over the past few days associated with nonproductive cough. She is normally on two liters of oxygen at night. However, she has been feeling like she is needing it during the day as well. Denies any orthopnea, denied any increase in lower extremity edema. She stated she has been checking her blood sugars and they have been around 500. She has been taking her insulin regularly and controlling, but stated she has been having a difficult time controlling her sugars over the years. She denies any fevers or chills or chest pain. She was admitted under hospitalist service for chronic obstructive pulmonary disease (COPD) exacerbation, elevated blood sugar. The patient was then seen by Dr. Weir for hypercapnic respiratory failure which was thought to be secondary to hypoventilation and oxygen administration. Her oxygen during the day was discontinued. She did not show any signs of respiratory distress during her exam with Dr. Weir. She did recommend to continue using her C-PAP at night as prescribed. The patient was moved to the floor. The patient was found to have a urinary tract infection (UTI) and was started on ceftriaxone. Her blood sugars remained to be poorly controlled but was likely thought to be secondary to steroids. Once that was discontinued, her sugars were under better control and she was returned back to her home dose of long-acting and short-acting. The patient remained in the hospital for a few more days. Once she was stable and had completed a course of antibiotics, she was discharged home where she stated she would not need any extra help other than the home health services since she lives at home with her significant other who will be able to help her, and she is normally wheelchair bound. She only pivots from chair to bed. DISCHARGE INSTRUCTIONS: She is to followup with primary care provider in one week. Diet diabetic. Activities as tolerated. DISCHARGE MEDICATIONS: - aspirin 81 mg daily The rest of her home medications were continued regular doses except for her Victoza which was stopped. Discharge condition was stable.
== END 2016-05-21 12:48 | disposition home health service (06) | DRG 637 ==
LOC: M ED 22:14 → M ED INP 05-14 05:23 → M MS5PR 05-14 06:45 → M ICU 05-14 22:12 → M MS5PR 05-15 17:35
PROVIDERS: ADMIT Internal Medicine; ATTEND Internal Medicine
DX: E11.65 Type 2 diabetes mellitus with hyperglycemia (principal); J96.21 Acute and chronic respiratory failure with hypoxia; J96.22 Acute and chronic respiratory failure with hypercapnia; N39.0 Urinary tract infection, site not specified; Z68.41 Body mass index [BMI] 40.0-44.9, adult; J44.1 Chronic obstructive pulmonary disease with (acute) exacerbation; G90.59 Complex regional pain syndrome I of other specified site; N17.9 Acute kidney failure, unspecified; I50.9 Heart failure, unspecified; N18.3 Chronic kidney disease, stage 3 (moderate); G47.33 Obstructive sleep apnea (adult) (pediatric); G40.909 Epilepsy, unspecified, not intractable, without status epilepticus; M54.5 Low back pain; B18.2 Chronic viral hepatitis C; J98.6 Disorders of diaphragm; E66.01 Morbid (severe) obesity due to excess calories; Z79.82 Long term (current) use of aspirin; Z79.899 Other long term (current) drug therapy; Z88.0 Allergy status to penicillin; Z88.2 Allergy status to sulfonamides; Z88.8 Allergy status to other drugs, medicaments and biological substances; Z91.040 Latex allergy status; Z86.718 Personal history of other venous thrombosis and embolism; B96.29 Other Escherichia coli [E. coli] as the cause of diseases classified elsewhere

== ENCOUNTER 2016-05-23 12:13 | Inpatient (IN) | payer MEDICARE, MEDICAID ==
[~2016-05-23] VITALS: Ht 170.2 cm; Wt 128.2 kg
[~2016-05-23 12:13] MED LIST changes: +ASPI81TAEC PO; +COLC1TAB13 PO; +FIOR1CAP2 PO; +INSULADS INJ; +LYRI100C10 PO; +MUCI600T34 PO; +PROA1AER INH
[2016-05-23] MEDS ORDERED: ACETAMINOPHEN 325 MG TAB As Ordered ONE (12:31)
[2016-05-23] MEDS ORDERED: ALBUTEROL SULFATE 2.5 MG/0.5 ML INH NEB SOLN As Ordered ONE (13:08)
[2016-05-23] MEDS ORDERED: MAGNESIUM SULFATE 1 GM/100 ML D5W BAG (10MG/ML) (J3475) As Ordered ONE (13:35)
[2016-05-23] MEDS ORDERED: methylPREDNISolone INJ 125 MG/2 ML VIAL (J2930) As Ordered ONE (13:35)
[2016-05-23 13:36] LABS: ALBUMIN 3.3 GM/DL (3.2-5.2); ALBUMIN/GLOBULIN RATIO 0.8 (1.00-1.93); BILIRUBIN,DIRECT 0.1 MG/DL (0.0-0.2); BILIRUBIN,TOTAL 0.4 MG/DL (0.2-1.0); CALCIUM LEVEL 8.9 MG/DL (8.8-10.2); CREATININE FOR GFR 1.69 MG/DL (0.55-1.02); GLOMERULAR FILTRATION RATE 31.8 (>39); POTASSIUM SERUM 4.5 MEQ/L (3.5-5.1); TOTAL PROTEIN 7.4 GM/DL (6.4-8.2)
[2016-05-23 13:41] LABS: BASO # 0.1 K/mm3 (0.0-0.2); BASO % 0.7 % (0.0-1.0); EOS # 0.1 K/mm3 (0.0-0.50); EOS % 1.4 % (0.0-3.0); LARGE UNSTAINED CELL # 0.1 K/mm3 (0.0-0.4); LYMPH # 0.8 K/mm3 (1.5-4.5); LYMPH % 6.3 % (24.0-44.0); MEAN CORPUSCULAR HEMOGLOBIN 25.6 pg (27.0-33.0); MEAN CORPUSCULAR HGB CONC 30.2 g/dl (32.0-36.5); MEAN CORPUSCULAR VOLUME 84.9 fl (80.0-96.0); MONO # 0.7 K/mm3 (0.0-0.8); NEUTROPHILS # 8.4 K/mm3 (1.8-7.7); NEUTROPHILS % 83.6 % (36.0-66.0); PLATELET COUNT, AUTOMATED 236 k/mm3 (150-450); RED CELL DISTRIBUTION WIDTH 19.2 % (11.5-14.5); WHITE BLOOD COUNT 10.1 K/mm3 (4.0-10.0)
--- NOTE | 2016-05-23 13:42 | REP ---
Clinical: Dyspnea. Shortness of breath. Comparison: 05/13/2016. Findings: Limited examination due to technique and positioning. Bibasilar opacities and mild pulmonary vascular congestion cannot be excluded. No definite effusion. No pneumothorax. The [id number] with tip in the right atrium. Skeletal structures intact. Impression: Cannot exclude bibasilar opacities or pulmonary vascular congestion. Signed by Ramos Chaparro MD 05/23/2016 01:34 P
[2016-05-23 13:58] LABS: VENOUS O2 SATURATION 99.3 % (60.0-80.0)
[2016-05-23 14:02] LABS: VENOUS BASE EXCESS 4.6 (-2.0-2.0); VENOUS PARTIAL PRESSURE CO2 40.1 mmHg (38.0-50.0); VENOUS PARTIAL PRESSURE O2 230.2 mmHg (30.0-50.0); VENOUS STANDARD HCO3 28.7 MEQ/L; VENOUS TOTAL CO2 29.8 MEQ/L (24.0-28.0)
[2016-05-23] MEDS ORDERED: IBUPROFEN 600 MG TAB As Ordered ONE (15:29)
[2016-05-23] MEDS ORDERED: LevoFLOXacin/DEXTROSE 750 MG/150 ML BAG (J1956) As Ordered ONE (15:29)
[2016-05-23] MEDS ORDERED: IPRATROPIUM 0.5MG/ALBUTEROL 2.5MG INH SOL UD 3ML (DUONEB)(J7620) As Ordered ONE (16:21)
[2016-05-23] MEDS ORDERED: OSELTAMIVIR PHOSPHATE 75 MG CAP (TAMIFLU) As Ordered ONE (16:32)
[2016-05-23] MEDS ORDERED: MOM 30ML SUSPENSION UDC PO PRN (17:15)
[2016-05-23] MEDS ORDERED: GLUCOSE 4 GM CHEW TABLET PO PRN (17:15)
[2016-05-23] MEDS ORDERED: DEXTROSE 50% 50 ML SYRINGE IV PRN (17:15)
[2016-05-23] MEDS ORDERED: SCOPOLAMINE 1.5 MG TRANSDERMAL TOP PRN (17:15)
[2016-05-23] MEDS ORDERED: GLUCAGON FOR INJ 1 MG VIAL (J1610) SC PRN (17:15)
[2016-05-23] MEDS ORDERED: guaiFENesin ER 600 MG TAB PO PRN (17:15)
[2016-05-23] MEDS ORDERED: ALBUTEROL 90 MCG/ACT 8GM HFA INHALER INH PRN (17:15)
[2016-05-23] MEDS ORDERED: ACETAMINOPHEN 325 MG TAB PO PRN (17:15)
[2016-05-23] MEDS ORDERED: NS 1,000 ML IV SCH (17:30)
--- NOTE | 2016-05-23 18:14 | ECGEPIP ---
Stationary ECG Study [facility] - ED Test Date: 2016-05-23 Pat Name: SHIVANI PAYNE Department: Room: - Gender: F Senior Commissions Analyst: jing : 1945 Requested By: OVIDIO SPENCER Order Number: [id number] Reading MD: Wyatt Rivas Measurements Intervals [place] Rate: 87 P: 83 WY: 207 QRS: 7 QRSD: 91 T: 44 QT: 360 QTc: 434 Interpretive Statements SINUS RHYTHM, BORDERLNE FIRST DEGREE AV BLOCK LOW QRS VOLTAGE IN PRECORDIAL LEADS SIMILAR TO 05/13/16 Electronically Signed On 05-23-2016 18:14:08 EST by Wyatt Rivas
--- NOTE | 2016-05-23 20:06 | HPE ---
DATE OF ADMISSION: 05/23/2016 PRIMARY CARE PROVIDER: Dr. Villalobos HISTORY OF PRESENT ILLNESS: This patient is a 70-year-old female with a past medical history significant for morbid obesity, arachnoiditis, obstructive sleep apnea, chronic kidney disease stage III, deep vein thrombosis (DVT), status post IVC filter, diastolic heart failure, diabetes, recurrent urinary tract infection (UTI), who presented to [facility] on 05/23/2016 for worsening shortness of breath. The patient was originally hospitalized from 05/14/2016 through 05/21/2016 for acute on chronic respiratory failure. The patient stated that one day after the patient was discharged from the hospital that the patient started having worsening shortness of breath and today she started having acute fevers. The patient is also noted to have worsening nausea and vomiting. The patient has very poor oral intake. Denies any chest pain. At baseline, the patient is using 2 liters nasal cannula intermittently. The patient has a history of deep vein thrombosis (DVT); however, the patient is unable to tolerate any anticoagulation due to significant gastrointestinal bleed. The patient has an IVC filter. When the patient arrived in the emergency room, the patient has a temperature of 102.4, required continuous oxygen support. The patient also has a respiration rate greater than 20s. The patient received Levaquin and Tamiflu and the hospitalist team was called for admission. ALLERGIES: CEPHALOSPORIN, CHLORPROMAZINE, FLUTICASONE, IODINE, LASIX, LORATADINE, METHADONE, PENICILLIN, PENTAZOCINE, PROMETHAZINE, SULFA. HOME MEDICATIONS: - Tylenol 650 mg by mouth every 4 hours as needed - ProAir one puff inhalation four times a day as needed - albuterol/ipratropium one inhalation four times a day as needed - aspirin 81 mg by mouth daily - Baclofen 20 mg by mouth twice a day - Zebeta 2.5 mg by mouth daily - colchicine 0.6 mg by mouth daily - Colace 100 mg by mouth twice a day - fluoxetine 20 mg by mouth daily - Mucinex 600 mg by mouth twice a day as needed - Lactulose 30 mL by mouth twice a day - Keppra 500 mg by mouth daily - Reglan 10 mg by mouth daily - Milk of magnesia 30 mL by mouth daily as needed - omeprazole 20 mg by mouth daily - Zofran 4 mg by mouth daily - potassium chloride 30 mEq by mouth daily - Lyrica 100 mg by mouth daily - Phenergan 25 mg by mouth daily - Senokot S two tablets by mouth daily - spironolactone 25 mg by mouth daily - sucralfate 1 gram by mouth twice a day - torsemide 50 mg by mouth twice a day - vitamin D 50,000 units by mouth weekly - Amitiza 24 mcg by mouth at night PAST MEDICAL HISTORY: 1. Arachnoiditis causing chronic immobilization. 2. Chronic obstructive pulmonary disease (COPD) on continuous positive airway pressure (CPAP). 3. Morbid obesity. 4. Chronic kidney disease stage III. 5. Chronic right diaphragm paralysis. 6. History of deep vein thrombosis (DVT), status post IVC. 7. History of diastolic congestive heart failure (CHF). 8. Poorly controlled diabetes. 9. Frequent urinary tract infection (UTI)s. PAST SURGICAL HISTORY: 1. [place] filter placement. 2. Right knee surgery. 3. Right hip surgery. 4. Back surgery. 5. Hysterectomy. 6. Lung surgery. SOCIAL HISTORY: Denies smoking. Denies alcohol use. Denies recreational drug use. The patient is a FULL CODE. REVIEW OF SYSTEMS: GENERAL: Positive fever, chills. HEENT: No vision changes. No auditory changes. CARDIOVASCULAR: No chest pain. No palpitations. RESPIRATORY: Requires 2 liters nasal cannula intermittently for the patient's chronic lung disease. Currently, the patient has acute respiratory distress for the past 2 days, cannot bring up any sputum. No significant cough. GASTROINTESTINAL: Positive nausea and vomiting since this morning. No abdominal pain. No diarrhea. GENITOURINARY: History of recurrent UTI. MUSCULOSKELETAL: Chronic immobilization from arachnoiditis. Requires wheelchair. NEUROLOGIC: Decreased sensation in different body regions, worsened with flare up of his arachnoiditis. OBJECTIVE: VITAL SIGNS: Blood pressure 147/64, pulse is 92, respirations 28, temperature is 101.8, pulse oximetry is 93% with 2 liters nasal cannula. Body weight is 122.38 kg. Body height is 170.18 cm. GENERAL: Fatigued. Moderate distress secondary to respiratory distress. Alert and oriented times three. HEENT: Normocephalic, atraumatic. Extraocular muscles are grossly intact. CARDIOVASCULAR: Positive S1, S2. Regular rate. LUNGS: Coarse lung sounds. Mild expiratory wheezes. Poor chest expansion. ABDOMEN: Obese, soft, nontender, nondistended. Bowel sounds present. EXTREMITIES: No edema. No sign of cyanosis. NEUROLOGIC: Decreased sensation to fine touch to different body parts, including left lower extremity. Muscle strength is 3/5 to 4/5 over the extremities. LABORATORY DATA: WBC 5.7, hemoglobin 11.1, hematocrit 38, platelet count is 245. Sodium is 145, potassium 3.1, chloride is 105, carbon dioxide 34, BUN 10, creatinine 1.1, GFR is 52.1, fasting glucose is 161, calcium is 8.5, magnesium 1.9. ASSESSMENT AND PLAN: 1. Acute respiratory failure secondary to influenza. The patient will be admitted to progressive care unit (PCU) under inpatient status. The patient will be on droplet isolation. The patient was started on Tamiflu. Continue with supportive care. 2. History of arachnoiditis. 3. Obstructive sleep apnea on CPAP. 4. Morbid obesity. 5. Chronic kidney disease at baseline. 6. History of deep vein thrombosis (DVT), status post IVC filter. Unable to tolerate any type of anticoagulation. 7. History of diastolic heart failure, chronic. 8. Influenza, unable to tolerate any oral diet. The patient will continue on gentle fluid support. 9. Insulin-dependent diabetes. The patient will be on Levemir and covered with sliding scale. The patient will be on consistent carbohydrate diet. 10. History of recurrent urinary tract infection (UTI)s. 11. Deep vein thrombosis (DVT) prophylaxis. On heparin.
--- NOTE | 2016-05-23 21:45 | EDDOCDS ---
Physician Documentation [facility] Name: Maricarmen Stern Age: 70 yrs Sex: Female : 1945 Arrival Date: 05/23/2016 Time: 12:13 Bed 8 Private MD: Paulo Villalobos Disposition: 05/23/16 16:27 Hospitalization ordered by Trang Mcgee for Inpatient Admission. Preliminary diagnosis are Chronic obstructive pulmonary disease with (acute) exacerbation, Influenza due to identified novel influenza A virus. - [facility] - Status is Inpatient Admission. andrew - Condition is Stable. - Problem is an acute exacerbation. - Symptoms are unchanged. Historical: - Allergies: CEPHALOSPORINS (Rash); Chlorpromazine (Rash); Doxycycline (Rash); Latex (Rash); loratadine (Rash); Methadone (Rash); Morphine (Rash); PENICILLINS (Rash); PENTAZOCINE (Rash); - Home Meds: 1. Amitiza 24 mcg oral cap 2 times per day 2. baclofen 20 mg Oral tab twice a day 3. bisoprolol fumarate 5 mg oral tab 0.5 tab once daily 4. Colace 100 mg oral cap 1 cap once daily 5. fluoxetine 20 mg Oral cap 1 cap once daily 6. Lantus 100 unit/mL Sub-Q crtg 78 unit twice a day 7. metoclopramide HCl 10 mg Oral tab 1 tab once daily 8. Novolog 100 unit/mL Sub-Q soln 16 unit before meals 9. omeprazole 20 mg Oral cpDR once daily 10. potassium chloride 10 mEq Oral cpER 1 cap once daily 11. pregabalin 50 mg Oral cap 1 cap 3 times per day 12. promethazine 25 mg Oral tab 1 tab once daily 13. senna 8.6 mg oral tab 2 tabs once daily 14. spironolactone 25 mg Oral tab 1 tab once daily 15. sucralfate 1 gram Oral tab 1 tab 2 times per day 16. torsemide 50 mg oral tab twice a day 17. Vitamin D Oral 1,000 unit daily 18. Zofran (as hydrochloride) 4 mg Oral tab daily - PMHx: Asthma; blood clot in left leg; CHF; Diabetes - IDDM: controlled; Hypertension; Migraines; paralyzed diaphragm; retenoiditis; Seizures; Sleep Apnea w/ CPAP; - PSHx: [place] Filter Placement; right knee surgery; right hip surgery; lung surgery; Hysterectomy; back surgery; left ankle surgery; - Social history: Smoking status: Patient states was never smoker of tobacco. No barriers to communication noted, The patient speaks fluent Dutch, Speaks appropriately for age. - Family history: Not pertinent. - : The pt / caregiver states he / she is not on anticoagulants. Home medication list is obtained from the patient, [employer] import data. - Exposure Risk Screening:: None identified. Vital Signs: 05/23 12:14 BP 143 / 71; Pulse 86; Resp 18 S; Temp 102.4(O); Pulse Ox 97% on 2 lpm NC; Weight gr2 123.38 kg / 272.01 lbs (R); Height 5 ft. 7 in. (170.18 cm) (R); Pain 4/10; 12:29 Pulse 94 MON; Pulse Ox 91% ; jo3 12:35 BP 120 / 68; Pulse 105; Resp 28; Temp 102.3(O); Pulse Ox 89% on R/A; Pain 0/10; bcj 12:39 Pulse 86 MON; Pulse Ox 96% ; jo3 12:50 Pulse 86 MON; Pulse Ox 95% ; jo3 13:00 Pulse 84 MON; Pulse Ox 95% ; jo3 13:15 Pulse 86 MON; Pulse Ox 97% ; jo3 14:26 BP 143 / 64 (auto/); jo3 14:26 Pulse 94 MON; Pulse Ox 89% ; jo3 15:00 BP 147 / 64 (auto/); jo3 15:00 Pulse 92 MON; Pulse Ox 92% ; jo3 15:04 Temp 101.8(O); jo3 15:15 BP 147 / 67 (auto/); jo3 15:15 Pulse 92 MON; Pulse Ox 93% ; jo3 15:30 BP 147 / 64 (auto/); jo3 15:30 Pulse 92 MON; Pulse Ox 93% ; jo3 15:45 BP 160 / 65 (auto/); jo3 15:45 Pulse 92 MON; Pulse Ox 90% ; jo3 16:00 BP 134 / 61 (auto/); jo3 16:00 Pulse 92 MON; Pulse Ox 92% ; jo3 16:15 BP 119 / 53 (auto/); jo3 16:15 Pulse 92 MON; Pulse Ox 92% ; jo3 16:30 BP 99 / 51 (auto/); jo3 16:30 Pulse 94 MON; Pulse Ox 97% ; jo3 17:00 BP 120 / 66 (auto/); jo3 17:00 Pulse 98 MON; Pulse Ox 94% ; jo3 17:25 BP 121 / 67 (auto/); jo3 17:25 Pulse 100 MON; jo3 17:45 BP 119 / 58 (auto/); jo3 17:45 Pulse 94 MON; Resp 22; Pulse Ox 92% ; jo3 18:12 Pulse 96 MON; Pulse Ox 91% ; ko2 18:19 Temp 101.3(TE); jlm 19:09 BP 154 / 118 (auto/); ko2 20:07 Pulse 88 MON; Pulse Ox 95% ; ko2 20:09 BP 105 / 54 (auto/); ko2 20:42 BP 102 / 63; Pulse 89; Resp 20; Temp 97.3(O); Pulse Ox 92% on 3 lpm NC; Pain 8/10; andrea 12:14 Body Mass Index 42.60 (123.38 kg, 170.18 cm) gr2 MDM: 12:23 -Blood Culture (Adults Only), peripheral from different site, or from device/port/PICC le etc. if present ordered. 12:23 Call Respiratory ordered. le 12:23 Salesperson Hosiery/Pulse Ox/q 15 min VS ordered. le 12:23 Oxygen at 4L/Min NC or Home dosage ordered. le 12:23 Acetaminophen Tablet 650 mg PO once ordered. le 12:36 ARTERIAL BLOOD GAS Ordered. EDMS 12:36 C REACTIVE PROTEIN QUANTITATIV Ordered. EDMS 12:36 CBC WITH DIFFERENTIAL Ordered. EDMS 12:36 LACTIC ACID LEVEL, LACTATE Ordered. EDMS 12:36 LIVER PROFILE Ordered. EDMS 12:36 BASIC METABOLIC PROFILE Ordered. EDMS 12:37 URINALYSIS Ordered. EDMS 12:37 BLOOD CULTURES Ordered. EDMS 12:37 BLOOD CULTURES Ordered. EDMS 12:37 URINE CULTURE Ordered. EDMS 12:37 Chest, 2 view PA, Lat Ordered. EDMS 12:38 ECG WITH READING ER PHYS ordered. EDMS 12:39 Call Respiratory complete. ar3 12:39 -Blood Culture (Adults Only), peripheral from different site, or from device/port/PICC ar3 etc. if present complete. 12:43 Misc Locomotive Firer/Fireman Order ordered. le 12:46 RESPIRATORY PANEL Ordered. EDMS 12:58 [facility] Locomotive Firer/Fireman Order complete. ar3 13:06 BED REQUEST+ADM ordered. EDMS 13:10 Albuterol 5 mg Nebulizer once ordered. le 13:10 Call Respiratory ordered. le 13:18 Venous Blood Gas (large pea green tube on ice) Ordered. EDMS 13:26 Call Respiratory complete. kr3 13:28 Solu-MEDROL 125 mg IVP once ordered. le 13:28 Magnesium Sulfate in D5W 2 grams IV at 2000 mg/hr once ordered. le 13:42 NS 0.9% 1000 ml IV at bolus once ordered. le 13:50 C REACTIVE PROTEIN QUANTITATIV Reviewed. le 13:50 CBC WITH DIFFERENTIAL Reviewed. le 13:50 LACTIC ACID LEVEL, LACTATE Reviewed. le 13:50 LIVER PROFILE Reviewed. le 13:50 BASIC METABOLIC PROFILE Reviewed. le 14:31 Venous Blood Gas (large pea green tube on ice) Reviewed. le 14:31 Chest, 2 view PA, Lat Reviewed. le 14:54 levofloxacin 750 mg IVPB once over 90 mins ordered. le 15:02 Ibuprofen 600 mg PO once ordered. le 16:01 Financial registration complete. [facility] 16:13 [facility] Payment Agreement was scanned into [employer] and attached to record. [facility] 16:16 RESPIRATORY PANEL Reviewed. le 16:16 [facility]. Nursing Order ordered. le 16:18 Oseltamivir 75 mg PO once ordered. le 16:19 Albuterol-Ipratropium 3 ml Inhalation once ordered. le 17:03 CONSISTENT CARBOHYDRATE+DIET ordered. EDMS 17:03 Admission / Observation Status ordered. EDMS 17:03 CONSISTENT CARBOHYDRATES ordered. EDMS 17:16 LACTIC ACID LEVEL, LACTATE Ordered. EDMS 19:32 COMPLETE BLOOD COUNT Ordered. EDMS 19:32 BASIC METABOLIC PROFILE Ordered. EDMS Administered Medications: 12:32 Drug: Acetaminophen 650 mg [acetaminophen 325 mg tablet (2 tabs)] Route: PO; kr3 13:47 Drug: Albuterol 5 mg [albuterol sulfate 2.5 mg/0.5 mL solution for nebulization (1 mL)] kt1 Route: Nebulizer; 13:50 Drug: Solu-MEDROL 125 mg [Solu-Medrol 500 mg intravenous solution (125 mg)] Route: IVP; jo3 Site: Implantable Access Device; 13:50 Drug: Magnesium Sulfate in D5W 2 grams [magnesium sulfate 1 gram/100 mL in dextrose 5 % jo3 intravenous piggyback] Route: IV; Rate: 2000 mg/hr; Site: Implantable Access Device; 16:18 Follow up: IV Status: Completed infusion kc3 14:35 Drug: NS 0.9% 1000 ml Route: IV; Rate: bolus; Site: Implantable Access Device; dsf 15:46 Drug: levofloxacin 750 mg [levofloxacin 250 mg/50 mL in 5 % dextrose intravenous kc3 piggyback] Route: IVPB; Infused Over: 90 mins; Site: right forearm; 15:46 Drug: Ibuprofen 600 mg [ibuprofen 600 mg tablet (1 tabs)] Route: PO; kc3 16:35 Drug: Albuterol-Ipratropium 3 ml [ipratropium-albuterol 0.5 mg-3 mg(2.5 mg base)/3 mL lb nebulization soln (3 mL)] Route: Inhalation; 16:43 Drug: Oseltamivir 75 mg [oseltamivir 75 mg capsule (1 caps)] Route: PO; kc3 Signatures: Dispatcher [employer] EDMS Jordin Denis RN RN bcj Newman, Corinne Polanco RN Crystal Isaac RN RN Zoya Green RN RN jo3 Westcott, Lisa, COMMERCIAL CORRESPONDENT COMMERCIAL CORRESPONDENT Nancy Sutton, STARS ANALYTICAL LEAD STARS ANALYTICAL LEAD ar3 Kacy Westfall Lindsay lb [place], Kristin kt1 Fuller, Desiree RN dsf Crane, Kelsi RN kc3 The chart was reviewed and I authenticate all verbal orders and agree with the evaluation and treatment provided.Corrections: (The following items were deleted from the chart) 13:06 13:02 Chest, 2 view (PA\E\Lat)+XR ordered. EDMS EDMS 13: 13:02 ARTERIAL BLOOD GAS+LAB ordered. EDMS EDMS 13: 13:02 C REACTIVE PROTEIN QUANTITATIV+LAB ordered. EDMS EDMS 13: 13:02 CBC WITH DIFFERENTIAL+LAB ordered. EDMS EDMS : 13:02 LACTIC ACID LEVEL, LACTATE+LAB ordered. EDMS EDMS : 13:02 LIVER PROFILE+LAB ordered. EDMS EDMS 13: 13:02 BASIC METABOLIC PROFILE+LAB ordered. EDMS EDMS : 13:02 URINALYSIS+LAB ordered. EDMS EDMS 13: 13:02 -BLOOD CULTURES+GORDY ordered. EDMS EDMS 13: 13:02 URINE CULTURE+GORDY ordered. EDMS EDMS 13:45 13:02 ECG WITH READING ER PHYS+CARDIAG ordered. EDMS EDMS Attachments: 16:13 [facility] [place] [place] Payment Agreement [facility] MTDD
--- NOTE | 2016-05-23 21:45 | EDDOCDS ---
Nurse's Notes [facility] Name: Shivani Stern Age: 70 yrs Sex: Female : 1945 Arrival Date: 05/23/2016 Time: 12:13 Bed 8 Private MD: Paulo Villalobos Diagnosis: Chronic obstructive pulmonary disease with (acute) exacerbation;Influenza due to identified novel influenza A virus Presentation: 05/23 12:31 Presenting complaint: Patient states: ill for the last 2 days with elevated temp cough bcj much more SOB than usual at home. tight cough with no sputum. temp up to 101 at home. denies chest pain. becomes very SOB with any activity. Adult Sepsis Screening: The patient does not have new or worsening altered mentation. Patient has a respiratory rate of greater than or equal to 22 (1 point). Systolic blood pressure is greater than 100. Patient has a qSOFA score of 1- Negative Sepsis Screen. Suicide/Homicide risk assessment- the patient denies having any suicidal and/or homicidal ideations and does not present with any other emotional, behavioral or mental health complaints. 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 Transition of care: patient was not received from another setting of care. Red Flag criteria, patient assessed and taken directly to a bed. 12:31 Acuity: [place] Level [address] [facility] 12:31 Method Of Arrival: Walkin/Carried/Asstd [facility] Triage Assessment: 12:35 General: Appears in no apparent distress, comfortable, Behavior is cooperative. Pain: bcj Denies pain. Neurological: Level of Consciousness is awake, alert. Cardiovascular: Rhythm is sinus tachycardia. Respiratory: Onset: The symptoms/episode began/occurred yesterday, Airway Respiratory effort is even, labored, Respiratory pattern is tachypnea. Historical: - Allergies: CEPHALOSPORINS (Rash); Chlorpromazine (Rash); Doxycycline (Rash); Latex (Rash); loratadine (Rash); Methadone (Rash); Morphine (Rash); PENICILLINS (Rash); PENTAZOCINE (Rash); - Home Meds: 1. Amitiza 24 mcg oral cap 2 times per day 2. baclofen 20 mg Oral tab twice a day 3. bisoprolol fumarate 5 mg oral tab 0.5 tab once daily 4. Colace 100 mg oral cap 1 cap once daily 5. fluoxetine 20 mg Oral cap 1 cap once daily 6. Lantus 100 unit/mL Sub-Q crtg 78 unit twice a day 7. metoclopramide HCl 10 mg Oral tab 1 tab once daily 8. Novolog 100 unit/mL Sub-Q soln 16 unit before meals 9. omeprazole 20 mg Oral cpDR once daily 10. potassium chloride 10 mEq Oral cpER 1 cap once daily 11. pregabalin 50 mg Oral cap 1 cap 3 times per day 12. promethazine 25 mg Oral tab 1 tab once daily 13. senna 8.6 mg oral tab 2 tabs once daily 14. spironolactone 25 mg Oral tab 1 tab once daily 15. sucralfate 1 gram Oral tab 1 tab 2 times per day 16. torsemide 50 mg oral tab twice a day 17. Vitamin D Oral 1,000 unit daily 18. Zofran (as hydrochloride) 4 mg Oral tab daily - PMHx: Asthma; blood clot in left leg; CHF; Diabetes - IDDM: controlled; Hypertension; Migraines; paralyzed diaphragm; retenoiditis; Seizures; Sleep Apnea w/ CPAP; - PSHx: Adeel Filter Placement; right knee surgery; right hip surgery; lung surgery; Hysterectomy; back surgery; left ankle surgery; - Social history: Smoking status: Patient states was never smoker of tobacco. No barriers to communication noted, The patient speaks fluent Swedish, Speaks appropriately for age. - Family history: Not pertinent. - : The pt / caregiver states he / she is not on anticoagulants. Home medication list is obtained from the patient, [employer] import data. - Exposure Risk Screening:: None identified. Screenin:15 Screening information is obtained from the patient. Fall risk: At risk due to jo3 immobility. Assistance ADL's: requires no assistance with activities of daily living. Abuse/DV Screen: The patient / caregiver reports he/she is: not in a situation that causes fear, pain or injury. Nutritional screening: No deficits noted. Advance Directives: There is no active DNR order. home support is adequate. Assessment: 13:15 General: Appears in no apparent distress, Behavior is appropriate for age, cooperative. jo3 Neurological: Level of Consciousness is awake, alert, Oriented to person, place, time. Cardiovascular: Chest pain is denied. Respiratory: Airway is patent Respiratory effort is labored, Breath sounds are diminished bilaterally. Breath sounds with wheezes bilaterally. Reports shortness of breath at rest. Derm: Skin is pink, warm & dry. 14:05 Reassessment: Patient appears in no apparent distress at this time. No significant jo3 changes noted. pt reports feeling mildly improved since arrival. Awaiting results for admission. at bedside. Aware of plan of care . 14:55 Reassessment: Patient appears in no apparent distress at this time. Patient denies pain jo3 at this time. Resting on stretcher at this time. remains at bedside. Awaiting results for admission. Aware of plan of care . 15:44 General: Appears in no apparent distress, Behavior is appropriate for age, cooperative. jo3 General:. Neurological: Level of Consciousness is awake, alert, Oriented to person, place, time. Respiratory: Airway is patent Respiratory effort is unlabored. Derm: Skin is pink, warm & dry. 16:50 General: Appears in no apparent distress, comfortable, Behavior is appropriate for age, jo3 cooperative, pleasant. Neurological: Level of Consciousness is awake, alert, Oriented to person, place, time. Cardiovascular: Chest pain is denied. Respiratory: Airway is patent Respiratory effort is even, unlabored, Breath sounds with wheezes bilaterally. Derm: Skin is pink, warm & dry. 17:45 General: Appears in no apparent distress, comfortable, Behavior is appropriate for age, jo3 cooperative, pleasant. Neurological: Level of Consciousness is awake, alert, Oriented to person, place, time. Respiratory: Airway is patent Respiratory effort is even, unlabored. Derm: Skin is pink, warm & dry. 18:35 General: Appears in no apparent distress, comfortable, Behavior is appropriate for age, jo3 cooperative, pleasant. General: Pt re[ports that breathing has improved. Awaiting admission at this time. Aware of plan of care . Neurological: Level of Consciousness is awake, alert, Oriented to person, place, time. Respiratory: Airway is patent Respiratory effort is even, unlabored. Derm: Skin is pink, warm & dry. 19:30 General: Appears in no apparent distress, comfortable, Behavior is appropriate for age, ko2 cooperative. Pain: Location: back Pain currently is 9 out of 10 on a pain scale. Neurological: Level of Consciousness is awake, alert, Oriented to person, place, time. Respiratory: Airway is patent Respiratory effort is even, unlabored. Derm: Skin is pink, warm & dry. 20:56 General: Behavior is appropriate for age, cooperative. Neurological: Level of ko2 Consciousness is awake, alert. Respiratory: Airway is patent Respiratory effort is even, unlabored. Derm: Skin is pink, warm & dry. Vital Signs: 12:14 BP 143 / 71; Pulse 86; Resp 18 S; Temp 102.4(O); Pulse Ox 97% on 2 lpm NC; Weight gr2 123.38 kg (R); Height 5 ft. 7 in. (170.18 cm) (R); Pain 4/10; 12:29 Pulse 94 MON; Pulse Ox 91% ; jo3 12:35 BP 120 / 68; Pulse 105; Resp 28; Temp 102.3(O); Pulse Ox 89% on R/A; Pain 0/10; bcj 12:39 Pulse 86 MON; Pulse Ox 96% ; jo3 12:50 Pulse 86 MON; Pulse Ox 95% ; jo3 13:00 Pulse 84 MON; Pulse Ox 95% ; jo3 13:15 Pulse 86 MON; Pulse Ox 97% ; jo3 14:26 BP 143 / 64 (auto/); jo3 14:26 Pulse 94 MON; Pulse Ox 89% ; jo3 15:00 BP 147 / 64 (auto/); jo3 15:00 Pulse 92 MON; Pulse Ox 92% ; jo3 15:04 Temp 101.8(O); jo3 15:15 BP 147 / 67 (auto/); jo3 15:15 Pulse 92 MON; Pulse Ox 93% ; jo3 15:30 BP 147 / 64 (auto/); jo3 15:30 Pulse 92 MON; Pulse Ox 93% ; jo3 15:45 BP 160 / 65 (auto/); jo3 15:45 Pulse 92 MON; Pulse Ox 90% ; jo3 16:00 BP 134 / 61 (auto/); jo3 16:00 Pulse 92 MON; Pulse Ox 92% ; jo3 16:15 BP 119 / 53 (auto/); jo3 16:15 Pulse 92 MON; Pulse Ox 92% ; jo3 16:30 BP 99 / 51 (auto/); jo3 16:30 Pulse 94 MON; Pulse Ox 97% ; jo3 17:00 BP 120 / 66 (auto/); jo3 17:00 Pulse 98 MON; Pulse Ox 94% ; jo3 17:25 BP 121 / 67 (auto/); jo3 17:25 Pulse 100 MON; jo3 17:45 BP 119 / 58 (auto/); jo3 17:45 Pulse 94 MON; Resp 22; Pulse Ox 92% ; jo3 18:12 Pulse 96 MON; Pulse Ox 91% ; ko2 18:19 Temp 101.3(TE); jlm 19:09 BP 154 / 118 (auto/); ko2 20:07 Pulse 88 MON; Pulse Ox 95% ; ko2 20:09 BP 105 / 54 (auto/); ko2 20:42 BP 102 / 63; Pulse 89; Resp 20; Temp 97.3(O); Pulse Ox 92% on 3 lpm NC; Pain 8/10; andrea 12:14 Body Mass Index 42.60 (123.38 kg, 170.18 cm) gr2 Vitals: 12:14 Log In Time: May 23, 2016 at 12:14. RN notified that patient meets Red Flag gr2 criteria. ED Course: 12:14 Patient visited by Eric Mercer. gr2 12:14 Paulo Villalobos MD is Private Physician. gr2 12:14 Patient moved to Waiting gr2 12:18 Patient visited by Eric Mercer. gr2 12:18 Patient moved to Pre RCE gr2 12:19 Patient moved to 8 gr2 12:22 [facility] le 12:33 Triage Initiated bcj 12:37 Patient visited by Jordin Denis RN. bcj 12:42 Patient visited by Sita No FNP. le 12:43 Patient visited by Sita No FNP. le 12:49 EKG done. (by ED staff). Reviewed by Sita SPENCER. jlf 13:15 The patient / caregiver is instructed regarding the plan of care and ED course. jo3 13:15 Accessed using # 22 Foley needle sterile technique, per hospital protocol. [employer]. jo3 Labs drawn. (by ED staff). Sent per order to lab. Labs/Blood culture drawn. 13:18 Patient visited by John Dow PCA. jlf 13:27 Patient visited by John Dow PCA. jlf 13:33 Patient visited by Zoya Manzo RN. jo3 13:53 Chest, 2 view PA, Lat Returned. EDMS 14:17 Patient visited by John Dow PCA. jlf 14:35 Inserted saline lock: 22 gauge in right forearm The patient tolerated the procedure dsf well. 15:27 Patient visited by America Up,RN. kc3 15:39 Patient visited by Zoya Manzo,GURMEET. jo3 15:44 Patient visited by Zoya Manzo,GURMEET. jo3 16:13 [facility] Payment Agreement was scanned into [employer] and attached to record. [facility] 16:27 LornaedwinTrang is Hospitalizing Provider. le 17:33 Patient moved to Admit Hold kpj 18:09 Diet tray given. jlm 18:10 Patient visited by Herlinda Hernandez, Plywood Stock Grader. jlm 18:19 Patient visited by Herlinda Hernandez, Plywood Stock Grader. jlm 18:33 ECG WITH READING ER PHYS Returned. EDMS 19:07 Patient visited by Zoya Manzo RN. jo3 19:18 Dayanna Smith,GURMEET is Primary Nurse. ko2 20:42 Patient visited by Alie Hilario PCA. andrea 20:42 Assisted to bedside commode. andrea 20:53 Patient moved to [facility] 20:58 No procedures done that require assistance. ko2 Administered Medications: 12:32 Drug: Acetaminophen 650 mg [acetaminophen 325 mg tablet (2 tabs)] Route: PO; kr3 13:47 Drug: Albuterol 5 mg [albuterol sulfate 2.5 mg/0.5 mL solution for nebulization (1 mL)] kt1 Route: Nebulizer; 13:50 Drug: Solu-MEDROL 125 mg [Solu-Medrol 500 mg intravenous solution (125 mg)] Route: IVP; jo3 Site: Implantable Access Device; 13:50 Drug: Magnesium Sulfate in D5W 2 grams [magnesium sulfate 1 gram/100 mL in dextrose 5 % jo3 intravenous piggyback] Route: IV; Rate: 2000 mg/hr; Site: Implantable Access Device; 16:18 Follow up: IV Status: Completed infusion kc3 14:35 Drug: NS 0.9% 1000 ml Route: IV; Rate: bolus; Site: Implantable Access Device; dsf 15:46 Drug: levofloxacin 750 mg [levofloxacin 250 mg/50 mL in 5 % dextrose intravenous kc3 piggyback] Route: IVPB; Infused Over: 90 mins; Site: right forearm; 15:46 Drug: Ibuprofen 600 mg [ibuprofen 600 mg tablet (1 tabs)] Route: PO; kc3 16:35 Drug: Albuterol-Ipratropium 3 ml [ipratropium-albuterol 0.5 mg-3 mg(2.5 mg base)/3 mL lb nebulization soln (3 mL)] Route: Inhalation; 16:43 Drug: Oseltamivir 75 mg [oseltamivir 75 mg capsule (1 caps)] Route: PO; kc3 RT: 13:46 Initial Med Neb Given as ordered Patient was instructed and evaluated on procedure kt1 Patient tolerated procedure well without adverse effect. Respiratory: Breath sounds are coarse. 13:47 ABG's drawn from right radial artery unsuccesfully attempted, provider notified. kt1 pressure held for 5 minutes, no bleeding noted pressure bandage applied pt. tolerated well. 16:42 Subsequent Med Neb Given as ordered Patient tolerated procedure well without adverse lb effect. Respiratory: Breath sounds are coarse bilaterally. Order Results: Lab Order: C REACTIVE PROTEIN QUANTITATIV; SPEC'M 05/23/16 13:07 Test: C REACTIVE PROTEIN QUANTITATIV; Value: 9.09; Range: 0.00-0.30; Abnormal: Above high normal; Units: MG/DL; Status: F Lab Order: CBC WITH DIFFERENTIAL; SPEC'M 05/23/16 13:07 Test: WHITE BLOOD COUNT; Value: 10.1; Range: 4.0-10.0; Abnormal: Above high normal; Units: K/mm3; Status: F Test: RED BLOOD COUNT; Value: 4.65; Range: 4.00-5.40; Units: M/mm3; Status: F Test: HEMOGLOBIN; Value: 11.9; Range: 12.0-16.0; Abnormal: Below low normal; Units: g/dl; Status: F Test: HEMATOCRIT; Value: 39.5; Range: 36.0-47.0; Units: %; Status: F Test: MEAN CORPUSCULAR VOLUME; Value: 84.9; Range: 80.0-96.0; Units: fl; Status: F Test: MEAN CORPUSCULAR HEMOGLOBIN; Value: 25.6; Range: 27.0-33.0; Abnormal: Below low normal; Units: pg; Status: F Test: MEAN CORPUSCULAR HGB CONC; Value: 30.2; Range: 32.0-36.5; Abnormal: Below low normal; Units: g/dl; Status: F Test: RED CELL DISTRIBUTION WIDTH; Value: 19.2; Range: 11.5-14.5; Abnormal: Above high normal; Units: %; Status: F Test: PLATELET COUNT, AUTOMATED; Value: 236; Range: 150-450; Units: k/mm3; Status: F Test: NEUTROPHILS %; Value: 83.6; Range: 36.0-66.0; Abnormal: Above high normal; Units: %; Status: F Test: LYMPH %; Value: 6.3; Range: 24.0-44.0; Abnormal: Below low normal; Units: %; Status: F Test: MONO %; Value: 7.0; Range: 0.0-5.0; Abnormal: Above high normal; Units: %; Status: F Test: EOS %; Value: 1.4; Range: 0.0-3.0; Units: %; Status: F Test: BASO %; Value: 0.7; Range: 0.0-1.0; Units: %; Status: F Test: LARGE UNSTAINED CELL %; Value: 1.0; Range: 0.0-4.0; Units: %; Status: F Test: NEUTROPHILS #; Value: 8.4; Range: 1.8-7.7; Abnormal: Above high normal; Units: K/mm3; Status: F Test: LYMPH #; Value: 0.8; Range: 1.5-4.5; Abnormal: Below low normal; Units: K/mm3; Status: F Test: MONO #; Value: 0.7; Range: 0.0-0.8; Units: K/mm3; Status: F Test: EOS #; Value: 0.1; Range: 0.0-0.50; Units: K/mm3; Status: F Test: BASO #; Value: 0.1; Range: 0.0-0.2; Units: K/mm3; Status: F Test: LARGE UNSTAINED CELL #; Value: 0.1; Range: 0.0-0.4; Units: K/mm3; Status: F Lab Order: LACTIC ACID LEVEL, LACTATE; [facility] 05/23/16 13:07 Test: LACTIC ACID SEPSIS PROTOCOL; Value: 2.3; Range: 0.4-2.0; Abnormal: Above upper panic limits; Units: MMOL/L; Status: F Lab Order: LIVER PROFILE; [facility] 05/23/16 13:07 Test: AST/SGOT; Value: 61; Range: 15-37; Abnormal: Above high normal; Units: U/L; Status: F Test: ALT/SGPT; Value: 56; Range: 12-78; Units: U/L; Status: F Test: ALKALINE PHOSPHATASE; Value: 134; Range: 45-117; Abnormal: Above high normal; Units: U/L; Status: F Test: BILIRUBIN,TOTAL; Value: 0.4; Range: 0.2-1.0; Units: MG/DL; Status: F Test: BILIRUBIN,DIRECT; Value: 0.1; Range: 0.0-0.2; Units: MG/DL; Status: F Test: TOTAL PROTEIN; Value: 7.4; Range: 6.4-8.2; Units: GM/DL; Status: F Test: ALBUMIN; Value: 3.3; Range: 3.2-5.2; Units: GM/DL; Status: F Test: ALBUMIN/GLOBULIN RATIO; Value: 0.80; Range: 1.00-1.93; Abnormal: Below low normal; Status: F Lab Order: BASIC METABOLIC PROFILE; [facility] 05/23/16 13:07 Test: GLUCOSE, FASTING; Value: 264; Range: 83-110; Abnormal: Above high normal; Units: MG/DL; Status: F Test: BLOOD UREA NITROGEN; Value: 13; Range: 7-18; Units: MG/DL; Status: F Test: CREATININE FOR GFR; Value: 1.69; Range: 0.55-1.02; Abnormal: High; Units: MG/DL; Status: F Test: GLOMERULAR FILTRATION RATE; Value: 31.8; Range: >39; Abnormal: Below low normal; Status: F Test: SODIUM LEVEL; Value: 140; Range: 136-145; Units: MEQ/L; Status: F Test: POTASSIUM SERUM; Value: 4.5; Range: 3.5-5.1; Abnormal: Delta; Units: MEQ/L; Status: F Test: CHLORIDE LEVEL; Value: 100; Range: 98-107; Units: MEQ/L; Status: F Test: CARBON DIOXIDE LEVEL; Value: 33; Range: 21-32; Abnormal: Above high normal; Units: MEQ/L; Status: F Test: ANION GAP; Value: 7; Range: 8-16; Abnormal: Below low normal; Units: MEQ/L; Status: F Test: CALCIUM LEVEL; Value: 8.9; Range: 8.8-10.2; Units: MG/DL; Status: F Test Note: ; Units are mL/min/1.73 m2 Chronic Kidney Disease Staging per NKF: Stage I & II GFR >=60 Normal to Mildly Decreased Stage III GFR 30-59 Moderately Decreased Stage IV GFR 15-29 Severely Decreased Stage V GFR <15 Very Little GFR Left ESRD GFR <15 on COMMERCIAL DRIVER'S LICENSE DRIVER Lab Order: RESPIRATORY PANEL; SPEC'M 05/23/16 13:07 Test: RESPIRATORY PANEL; Value: RP PANEL RESULT POSITIVE by PCR; Abnormal: Abnormal; Status: F Test: RESPIRATORY PANEL; Value: Comments:; Status: F Test: RESPIRATORY PANEL; Value: ORGANISM 1: INFLUENZA A H3; Status: F Test: RESPIRATORY PANEL; Value: INFLUENZA A H3; Status: F Test: RESPIRATORY PANEL; Value: Influenza H3 1 Influenza causes upper respiratory tract infections; Status: F Test: RESPIRATORY PANEL; Value: Influenza H3 10 Influenza A1H3.; Status: F Test: RESPIRATORY PANEL; Value: Influenza H3 2 with rapid onset of fever. During annual Influenza; Status: F Test: RESPIRATORY PANEL; Value: Influenza H3 3 epidemics, 5-20% of the population is affected.; Status: F Test: RESPIRATORY PANEL; Value: Influenza H3 4 Complications with viral or bacterial pneumonia; Status: F Test: RESPIRATORY PANEL; Value: Influenza H3 5 increase mortality from Influenza infections. There; Status: F Test: RESPIRATORY PANEL; Value: Influenza H3 6 are currently at least four antiviral medications; Status: F Test: RESPIRATORY PANEL; Value: Influenza H3 7 available for Influenza treatment (amantadine,; Status: F Test: RESPIRATORY PANEL; Value: Influenza H3 8 rimantadine, zanamivir and oseltamivir). More severe; Status: F Test: RESPIRATORY PANEL; Value: Influenza H3 9 disease and increased mortality are associated with; Status: F Test Note: ; This respiratory PCR panel detects Influenza A H1, H3 and 2009 H1 viruses, Influenza B virus, Respiratory syncytial virus, Human metapneumovirus, Parainfluenza virus 1, 2, 3 and 4, Adenovirus, Rhinovirus/Enterovirus, Coronavirus HKU1, NL63, OC43 and 229E, Bordetella pertussis, Mycoplasma pneumoniae and Chlamydia pneumoniae. Lab Order: Venous Blood Gas (large pea green tube on ice); SPEC'M 05/23/16 13:45 Test: VENOUS PH; Value: 7.471; Range: 7.330-7.430; Abnormal: Above high normal; Units: UNITS; Status: F Test: VENOUS PARTIAL PRESSURE CO2; Value: 40.1; Range: 38.0-50.0; Units: mmHg; Status: F Test: VENOUS PARTIAL PRESSURE O2; Value: 230.2; Range: 30.0-50.0; Abnormal: Above high normal; Units: mmHg; Status: F Test: VENOUS TOTAL CO2; Value: 29.8; Range: 24.0-28.0; Abnormal: Above high normal; Units: MEQ/L; Status: F Test: VENOUS HCO3; Value: 28.6; Range: 23.0-27.0; Abnormal: Above high normal; Units: MEQ/L; Status: F Test: VENOUS BASE EXCESS; Value: 4.6; Range: -2.0-2.0; Abnormal: Above high normal; Status: F Test: VENOUS STANDARD HCO3; Value: 28.7; Units: MEQ/L; Status: F Test: VENOUS O2 SATURATION; Value: 99.3; Range: 60.0-80.0; Abnormal: Above high normal; Units: %; Status: F Lab Order: LACTIC ACID LEVEL, LACTATE; SPEC'M 05/23/16 18:35 Test: LACTIC ACID SEPSIS PROTOCOL; Value: 1.6; Range: 0.4-2.0; Units: MMOL/L; Status: F Radiology Order: Chest, 2 view PA, Lat Test: Chest, 2 view PA, Lat REASON FOR EXAMINATION: DIFF BREATHING; Clinical: Dyspnea. Shortness of breath.; ; Comparison: 05/13/2016.; ; Findings:; Limited examination due to technique and positioning. Bibasilar opacities and; mild pulmonary vascular congestion cannot be excluded. No definite effusion. No; pneumothorax. The Yuguvz-L-Aodw with tip in the right atrium. Skeletal; structures intact.; ; Impression:; Cannot exclude bibasilar opacities or pulmonary vascular congestion.; ; ; Signed by; Ramos Chaparro MD 05/23/2016 01:34 P; Radiology Order: ECG WITH READING ER PHYS Test: ECG WITH READING ER PHYS REASON FOR EXAMINATION: DIFF BREATHING; Stationary ECG Study; [facility] - ED; ; Test Date: 2016-05-23; Pat Name: SHIVANI STERN Department:; Room: -; Gender: F Edger Automatic: jing; : 1945 Requested By: SITA SPENCER; Order Number: [id number] Reading MD: Wyatt Rivas; Measurements; Intervals Dennis; Rate: 87 P: 83; MA: 207 QRS: 7; QRSD: 91 T: 44; QT: 360; QTc: 434; Interpretive Statements; SINUS RHYTHM, BORDERLNE FIRST DEGREE AV BLOCK; LOW QRS VOLTAGE IN PRECORDIAL LEADS; SIMILAR TO 05/13/16; Electronically Signed On 05-23-2016 18:14:08 EST by Wyatt Rivas; Outcome: 16:27 Decision to Hospitalize by Provider. le 20:58 Discharge Assessment: Patient awake, alert and oriented x 3. No cognitive and/or ko2 functional deficits noted. Patient verbalized understanding of disposition instructions. patient administered narcotics -. The following High Risk Discharge criteria are identified: None. Admitted to PCU accompanied by nurse, accompanied by tech, via stretcher, via wheelchair, on monitor, with chart. Condition: stable. No special radiology studies were completed. Property :Personal belongings accompany Pt. 21:03 Admission hand-off: Report Faxed Fax receipt verified by Kimberly Clayton RN PCU. ko2 21:44 Patient left the ED. andrew Signatures: Dispatcher [employer] EDMS Diandra Treviño RN RN kpj Johnson, Bruce, RN RN bcj Newman, Jill New RN Gogo Shannon Kristin kt1 Deepthi Merlos, Plywood Stock Grader Unit ml3 Crystal Lantigua,RN RN kr3 Zoya Manzo,RN RN [email or web address] Sita No, INTENSIVE CARE NURSE INTENSIVE CARE NURSE Alie Berkowitz, PATIENT SCHEDULER PATIENT SCHEDULER Makayla Catherine,RN RN dsf Eric Mercer gr2 John Dow, PATIENT SCHEDULER PATIENT SCHEDULER jlf Herlinda Hernandez, Plywood Stock Grader Unit jl Dayanna SmithRN RN lópez2 Kacy Westfall [facility] America Up,GURMEET RN kc3 Corrections: (The following items were deleted from the chart) 13:28 13:18 EKG done. (by ED staff). Reviewed by Sita No INTENSIVE CARE NURSE jlf jl MTDD
[2016-05-23 21:50] VITALS: BP 122/56
[2016-05-23] MEDS: HumaLOG INSULIN (NovoLOG) PER UNIT SC SCH ×2 (22:26→23:19)
[2016-05-23] MEDS: OSELTAMIVIR PHOSPHATE 75 MG CAP (TAMIFLU) PO SCH (22:51)
[2016-05-23] MEDS: LACTULOSE 20 GM/30 ML SYRUP UD PO SCH (23:13)
[2016-05-23] MEDS: DOCUSATE SODIUM 100 MG CAP PO SCH (23:14)
[2016-05-23] MEDS: HEPARIN SOD (PORCINE) 5000 UNITS/ML VIAL SC SCH (23:14)
[2016-05-23] MEDS: BACLOFEN 10 MG TAB PO SCH (23:14)
[2016-05-23] MEDS: levETIRAcetam 250MG TABLET (KEPPRA) PO SCH (23:15)
[2016-05-23] MEDS: ONDANSETRON 4 MG TAB (S0181) PO SCH (23:15)
[2016-05-23] MEDS: POTASSIUM CHLORIDE 10 MEQ SR TABLET PO SCH (23:15)
[2016-05-23] MEDS: SENOKOT S TAB PO SCH (23:16)
[2016-05-23] MEDS: PREGABALIN 100 MG CAP (LYRICA) PO SCH (23:16)
[2016-05-23] MEDS: SUCRALFATE 1 GM TAB PO SCH (23:16)
[2016-05-23] MEDS: OMEPRAZOLE 20 MG CAP PO SCH (23:16)
[2016-05-23] MEDS: METOCLOPRAMIDE 10 MG TAB PO SCH (23:16)
[2016-05-23] MEDS: LEVEMIR (INSULIN DETEMIR) 1 UNITS/0.01ML SC SCH (23:18)
[2016-05-23] MEDS: PROMETHAZINE 25 MG TAB PO SCH (23:32)
[2016-05-24 00:48] VITALS: BP 139/64
[2016-05-24 04:29] VITALS: BP 146/66
[2016-05-24] MEDS: ACETAMINOPHEN TAB 650MG DOSE (2X325MG) PO PRN ×2 (04:55→21:42)
[2016-05-24] MEDS: HEPARIN SOD (PORCINE) 5000 UNITS/ML VIAL SC SCH ×3 (05:03→21:42)
[2016-05-24 05:26] LABS: MEAN CORPUSCULAR HEMOGLOBIN 25.7 pg (27.0-33.0); MEAN CORPUSCULAR VOLUME 88.6 fl (80.0-96.0); RED CELL DISTRIBUTION WIDTH 19.1 % (11.5-14.5); WHITE BLOOD COUNT 6.7 K/mm3 (4.0-10.0)
[2016-05-24 05:38] LABS: CREATININE FOR GFR 2.12 MG/DL (0.55-1.02); GLOMERULAR FILTRATION RATE 24.4 (>39); POTASSIUM SERUM 4.7 MEQ/L (3.5-5.1)
[2016-05-24] MEDS ORDERED: HumaLOG INSULIN (NovoLOG) PER UNIT SC STA (05:55)
[2016-05-24 08:15] VITALS: BP 117/88
[2016-05-24] MEDS: PROMETHAZINE 25 MG TAB PO SCH ×3 (08:29→17:37)
[2016-05-24] MEDS: HumaLOG INSULIN (NovoLOG) PER UNIT SC SCH ×4 (08:30→21:00)
[2016-05-24] MEDS ORDERED: COLCHICINE 0.6 MG TAB PO SCH (09:00)
[2016-05-24] MEDS ORDERED: SPIRONOLACTONE 25 MG TAB PO SCH (09:00)
[2016-05-24] MEDS: METOCLOPRAMIDE 10 MG TAB PO SCH ×3 (09:43→21:43)
[2016-05-24] MEDS: BACLOFEN 10 MG TAB PO SCH ×2 (09:43→21:41)
[2016-05-24] MEDS: POTASSIUM CHLORIDE 10 MEQ SR TABLET PO SCH ×3 (09:43→21:42)
[2016-05-24] MEDS: LEVEMIR (INSULIN DETEMIR) 1 UNITS/0.01ML SC SCH ×2 (09:43→21:43)
[2016-05-24] MEDS: SUCRALFATE 1 GM TAB PO SCH ×2 (09:44→21:43)
[2016-05-24] MEDS: levETIRAcetam 250MG TABLET (KEPPRA) PO SCH ×4 (09:44→21:41)
[2016-05-24] MEDS: SENOKOT S TAB PO SCH ×2 (09:44→21:41)
[2016-05-24] MEDS: ONDANSETRON 4 MG TAB (S0181) PO SCH ×4 (09:44→21:42)
[2016-05-24] MEDS: OSELTAMIVIR PHOSPHATE 75 MG CAP (TAMIFLU) PO SCH ×2 (09:44→21:43)
[2016-05-24] MEDS: FLUoxetine 20 MG CAP PO SCH (09:44)
[2016-05-24] MEDS: OMEPRAZOLE 20 MG CAP PO SCH ×2 (09:44→21:42)
[2016-05-24] MEDS: DOCUSATE SODIUM 100 MG CAP PO SCH ×2 (09:44→21:43)
[2016-05-24] MEDS: PREGABALIN 100 MG CAP (LYRICA) PO SCH ×3 (09:44→21:42)
[2016-05-24] MEDS: ASPIRIN 81 MG ENTERIC TAB PO SCH (09:44)
[2016-05-24] MEDS: BISOPROLOL FUMARATE 5 MG TAB PO SCH (09:45)
[2016-05-24] MEDS: LACTULOSE 20 GM/30 ML SYRUP UD PO SCH ×2 (09:45→21:42)
[2016-05-24] MEDS: PERCOCET 5MG/325MG TAB PO PRN (09:46)
[2016-05-24] MEDS: TORSEMIDE 100 MG TAB PO SCH ×2 (12:05→17:36)
[2016-05-24 14:00] VITALS: BP 124/74
[2016-05-24] MEDS ORDERED: IPRATROPIUM 0.5MG/ALBUTEROL 2.5MG INH SOL UD 3ML (DUONEB)(J7620) NEB PRN (17:00)
--- NOTE | 2016-05-24 18:56 | IPN ---
DATE: 05/24/2016 SUBJECTIVE: The patient is seen and examined in the room today. The patient has very good appetite. She finished all her meals. The patient did notice worsening lower extremity swelling, and the patient has been taking torsemide at home; however, since the discontinuation of the torsemide, the patient noted her ankle swelling is worsening. No overnight events are reported. The patient's breathing is improving. OBJECTIVE: VITAL SIGNS: Temperature is 96.2, pulse is 75, respirations 20, blood pressure is 117/88, pulse oximetry 95% with two liters nasal cannula. GENERAL: No sign of acute distress. Alert and oriented times three. HEENT: Normocephalic, atraumatic. Extraocular motor grossly intact. CARDIOVASCULAR: Positive S1, S2. Regular rate. LUNGS: Coarse lung sounds, expiratory wheezes. Poor chest expansion. ABDOMEN: Soft, nontender, nondistended. Bowel sounds present. No rebound, no guarding. EXTREMITIES: No edema, no sign of cyanosis. LABORATORY DATA: WBC is 6.7, hemoglobin 10.4, hematocrit 35.7, platelet count 231. Sodium 138, potassium 4.7, chloride 99, carbon dioxide 32, BUN 23, creatinine 2.12, GFR is 24.4, fasting glucose 547, calcium 8. Total CK is 87. Troponin I is less than 0.02. MICROBIOLOGY: Blood cultures negative after 24 hours. Urine culture is pending. Respiratory panel showed positive for influenza A H-3 strand. ASSESSMENT AND PLAN: 1. Acute respiratory distress secondary to influenza. The patient is continued on supportive care. Patient continued on Tamiflu. The patient is on droplet precaution. 2. History of arachnoiditis, stable. The patient is complaining about worsening pain, and Tylenol alone is not controlling her pain anymore. We will start the patient on Percocet. 3. Chest pain, most likely secondary to labored breathing. The patient described the pain is more like musculoskeletal type instead of cardiac type. Cardiac enzymes were ordered which came back negative. 4. Acute kidney injury. Patient has history of congestive heart failure. Initially due to concern for the patient's acute illness, the patient was started on supported intravenous (IV) fluid. Torsemide was discontinued. Now that patient's illness is improving, the patient's lactic acid decreased from 2.3 to 1.6. IV fluid will be discontinued and the patient started back on the torsemide. We will follow the renal functions. 5. Diabetes. The patient is very sensitive to the steroids. When patient was seen in the emergency room, the patient received high-dose IV Solu-Medrol. Several hours later, the patient's (please clarify) had been elevated significantly, and the prednisone should be used with caution for Mrs. Stern. 6. History of diastolic heart failure. Currently decompensated. The patient has if fluid resuscitation for the patient's illness. The patient is restarted on the torsemide. 7. History of deep venous thrombosis (DVT), status post inferior vena cava (IVC) filter. Unable to tolerate any type of anticoagulation due to history of severe bleeding. 8. History of recurrent urinary tract infection (UTI). 9. Obstructive sleep apnea (MATT) on continuous positive airway pressure (CPAP). 10. DVT prophylaxis. This patient is on heparin.
[2016-05-24 22:00] VITALS: BP 168/72
[2016-05-25] MEDS: HEPARIN SOD (PORCINE) 5000 UNITS/ML VIAL SC SCH ×3 (05:16→21:35)
[2016-05-25] MEDS: PERCOCET 5MG/325MG TAB PO PRN (05:17)
[2016-05-25 05:59] LABS: MEAN CORPUSCULAR HEMOGLOBIN 25.6 pg (27.0-33.0); MEAN CORPUSCULAR HGB CONC 29.5 g/dl (32.0-36.5); MEAN CORPUSCULAR VOLUME 86.8 fl (80.0-96.0); RED CELL DISTRIBUTION WIDTH 18.7 % (11.5-14.5); WHITE BLOOD COUNT 6.4 K/mm3 (4.0-10.0)
[2016-05-25 06:00] VITALS: BP 127/68
[2016-05-25 06:23] LABS: CALCIUM LEVEL 8.7 MG/DL (8.8-10.2); CREATININE FOR GFR 2.19 MG/DL (0.55-1.02); GLOMERULAR FILTRATION RATE 23.5 (>39); POTASSIUM SERUM 4.4 MEQ/L (3.5-5.1)
[2016-05-25] MEDS ORDERED: LEVEMIR (INSULIN DETEMIR) 1 UNITS/0.01ML SC SCH ×2 (09:00→21:00)
[2016-05-25] MEDS ORDERED: DOXYCYCLINE HYCLATE 100 MG in D5W MINI-BAG PLUS 100 ML IV SCH (10:00)
[2016-05-25] MEDS ORDERED: ALBUTEROL SULFATE 2.5 MG/0.5 ML INH NEB SOLN INH PRN (10:00)
--- NOTE | 2016-05-25 10:06 | REP ---
BILATERAL RENAL ULTRASOUND: 05/25/2016 COMPARISON: CT abdomen without contrast, 06/26/2015, renal ultrasound, 09/07/2011, 08/03/2010. CLINICAL HISTORY: ISSA. FINDINGS. Right kidney is 9.6 x 7.7 x 6.3 cm. The left is 9.8 x 4.7 x 5.8 cm. Cortical echogenicity is less than that of the adjacent liver. Exam is technically challenging because of the extreme body habitus. There is no hydronephrosis or hydroureter evident. No visible cyst, mass, or stone evident. The bladder shows no wall thickening, stone, or mass. It too is limited evaluation due to body habitus. IMPRESSION: 1. Some mild atrophy overall with 9.6 cm long right and 9.8 cm long left kidney without hydronephrosis, hydroureter, visible stone, cyst, or mass. Cortical echogenicity is less than that of adjacent liver. Exam limited by body habitus. 2. Bladder grossly unremarkable. Signed by Keanu Faye MD 05/25/2016 05:40 P
[2016-05-25] MEDS ORDERED: NS 1,000 ML IV SCH (10:30)
[2016-05-25] MEDS: HumaLOG INSULIN (NovoLOG) PER UNIT SC SCH ×4 (10:43→21:37)
[2016-05-25] MEDS: METOCLOPRAMIDE 10 MG TAB PO SCH ×3 (10:44→21:33)
[2016-05-25] MEDS: OSELTAMIVIR PHOSPHATE 75 MG CAP (TAMIFLU) PO SCH ×2 (10:44→21:34)
[2016-05-25] MEDS: SENOKOT S TAB PO SCH ×2 (10:45→21:35)
[2016-05-25] MEDS: OMEPRAZOLE 20 MG CAP PO SCH ×2 (10:45→21:34)
[2016-05-25] MEDS: levETIRAcetam 250MG TABLET (KEPPRA) PO SCH ×4 (10:45→21:34)
[2016-05-25] MEDS: BACLOFEN 10 MG TAB PO SCH ×2 (10:45→21:34)
[2016-05-25] MEDS: PREGABALIN 100 MG CAP (LYRICA) PO SCH ×3 (10:46→21:34)
[2016-05-25] MEDS: DOCUSATE SODIUM 100 MG CAP PO SCH ×2 (10:46→21:34)
[2016-05-25] MEDS: ONDANSETRON 4 MG TAB (S0181) PO SCH ×4 (10:46→21:34)
[2016-05-25] MEDS: ASPIRIN 81 MG ENTERIC TAB PO SCH (10:46)
--- NOTE | 2016-05-25 10:46 | REP ---
CT of the chest without IV contrast: Comparisons are the chest CT dated 05/14/2016 and PA and lateral views of the chest dated 05/13/2016. There are multifocal zones of atelectasis in the lower lobes bilaterally, unchanged from the prior CT. There is an indwelling central venous catheter with the tip in the right atrium in satisfactory location, unchanged. There is a calcified granuloma in the right lower lobe and there are calcified nodes in the right hilus and mediastinum. These are unchanged. There are small densities adjacent to the posterior arches of several right ribs of uncertain significance, supply prior fractures versus foreign bodies. There are two tiny round metallic foreign bodies in the soft tissues posteriorly on the left in the shape of the knees. These are unchanged. There is no mediastinal lymph node enlargement. No axillary lymph node enlargement. In the absence of IV contrast the study is insensitive for hilar lymph node enlargement. The unenhanced thoracic aorta is unremarkable. Cardiac size is upper normal. There is no pericardial effusion. The visualized upper abdominal contents are unchanged. Numerous surgical clips are again noted in the mid upper abdomen. Impression: Bibasilar atelectatic changes, similar to the prior CT. Calcified granulomas on the right, unchanged. There is an indwelling central venous catheter with the tip in the right atrium in satisfactory location, unchanged. Sequela of prior fractures versus foreign bodies posteriorly on the right. Foreign bodies posteriorly on the left. No significant interval change from the prior studies. Signed by Sami Richetr MD 05/25/2016 10:38 A
[2016-05-25] MEDS: LACTULOSE 20 GM/30 ML SYRUP UD PO SCH ×2 (10:47→21:35)
[2016-05-25] MEDS: PROMETHAZINE 25 MG TAB PO SCH ×3 (10:47→16:55)
[2016-05-25] MEDS: FLUoxetine 20 MG CAP PO SCH (10:47)
[2016-05-25] MEDS: SUCRALFATE 1 GM TAB PO SCH ×2 (10:47→21:34)
[2016-05-25] MEDS: BISOPROLOL FUMARATE 5 MG TAB PO SCH (10:50)
[2016-05-25] MEDS: IPRATROPIUM 0.5MG/ALBUTEROL 2.5MG INH SOL UD 3ML (DUONEB)(J7620) NEB SCH ×4 (11:18→23:54)
[2016-05-25] MEDS: guaiFENesin ER 600 MG TAB PO SCH ×2 (11:20→21:34)
--- NOTE | 2016-05-25 13:44 | CR ---
DATE OF CONSULTATION: 05/25/2016 REQUESTING PHYSICIAN: Dr. Justo Houser CONSULTING PHYSICIAN: Dr. Meek REASON FOR CONSULTATION: Management of acute kidney injury superimposed on chronic kidney disease. CHIEF COMPLAINT: The patient was admitted on 05/23/2016 because of progressive shortness of breath secondary to influenza. HISTORY OF PRESENT ILLNESS: Maricarmen Stern is a 70-year-old female with a past medical history of chronic kidney disease stage III, baseline creatinine as per previous record is around 1.1. She has multiple other comorbidities, including obstructive sleep apnea, chronic obstructive pulmonary disease (COPD), history of deep vein thrombosis (DVT), status post IVC filter, diastolic congestive heart failure (CHF), diabetes mellitus type 2, and other comorbidities as mentioned below. She presented to the emergency room on 05/23/2016 for worsening shortness of breath. She was found to have influenza, pneumonia. She was tachypneic and in respiratory distress. She was placed on oxygen. She was given Levaquin and Tamiflu, and she was admitted to the hospital for further management. Her creatinine on admission was 1.69, which is worsened to 2.19 today. Nephrology service was called for further management of acute kidney injury. The patient did not get any IV contrast during this admission; however, she was on diuretics, including torsemide 100 mg by mouth twice a day and spironolactone 25 mg by mouth daily for a history of congestive heart failure (CHF). When I examined the patient, she was still in mild respiratory distress, and she was wearing oxygen. PAST MEDICAL HISTORY: She has a past medical history of: 1. Chronic kidney disease stage III. 2. Arachnoiditis with chronic immobilization. 3. COPD, currently on CPAP at home. 4. Morbid obesity. 5. Chronic right diaphragm paralysis. 6. History of deep vein thrombosis (DVT), could not tolerate anticoagulation, status post IVC filter. 7. History of diastolic congestive heart failure (CHF). 8. Diabetes mellitus type 2. 9. History of recurrent urinary tract infection (UTI) in the past. PAST SURGICAL HISTORY: 1. Status post IVC filter. 2. Status post right knee surgery. 3. Status post right hip surgery. 4. Spinal surgery, status post hysterectomy. 5. History of lung surgery in the past. ALLERGIES: The patient is allergic to CEPHALOSPORINS, CHLORPROMAZINE, FLUTICASONE, IODINE, LATEX, LORATADINE, METHADONE, PENICILLIN, PENTAZOCINE, SOLU-MEDROL, as mentioned in the records. CURRENT INPATIENT MEDICATIONS: Her medications include: - doxycycline 100 mg by mouth every 12 hours - guaifenesin 600 mg twice a day - Tylenol as needed - albuterol as needed - aspirin 81 mg by mouth daily - Baclofen 20 mg by mouth twice a day - Zebeta 2.5 mg by mouth daily - colchicine was stopped this morning - Colace two tablets by mouth twice a day - DuoNeb every 4 hours around the clock - fluoxetine 20 mg by mouth daily - heparin 5000 units every 8 hours - insulin, Levemir, 85 units subcutaneously twice a day - insulin sliding scale - Lactulose 30 mL twice a day - Keppra 500 mg four times a day - Reglan 10 mg by mouth three times a day - omeprazole 20 mg twice a day - Zofran 4 mg four times a day - Tamiflu 75 mg twice a day - Percocet as needed - potassium chloride 30 mL was stopped by me today - Lyrica 100 mg three times a day - Phenergan 25 mg with meals - scopolamine as needed - spironolactone 25 mg by mouth daily was stopped by va - Carafate 1 gram by mouth twice a day - torsemide 100 mg by mouth twice a day, which was stopped by me today FAMILY HISTORY: No significant family history of end stage renal disease requiring hemodialysis. SOCIAL HISTORY: The patient denies any smoking, drug abuse, or alcohol abuse. REVIEW OF SYSTEMS: GENERAL: The patient reported fever and chills when she arrived. Right now, she is fever free. EYES: She denies any blurry vision or double vision. ENT: She denies any dysphagia or odynophagia or ear discharge. CARDIOVASCULAR: She denies any chest pain, palpitations. RESPIRATORY: She has a history of chronic obstructive pulmonary disease (COPD). She is home oxygen dependent. She is currently short of breath and she is positive for influenza virus. GASTROINTESTINAL: There is a history of nausea and vomiting requiring Reglan and Zofran. Currently, she is denying any pain in the abdomen, constipation, or diarrhea. GENITOURINARY: She reports a history of recurrent urinary tract infection (UTI), but she denies dysuria, hematuria at this time. MUSCULOSKELETAL: She has chronic immobilization from arachnoiditis. She is wheelchair dependent. NEUROLOGIC: She reports a history of arachnoiditis and decreased sensation in different parts of the body and history of flare ups in the past. PSYCHIATRIC: History of depression. ENDOCRINE: History of uncontrolled diabetes. SKIN: She denies any rashes or ulcers. All other review of systems is negative. PHYSICAL EXAMINATION: GENERAL: The patient is awake, alert, oriented times three in mild respiratory distress, lying in the bed. VITAL SIGNS: Temperature is 97.4 degrees Fahrenheit, blood pressure is 127/68, pulse is 76, respiratory rate of 20, saturating 92% on nasal cannula. Intake and output, urine output recorded is 4150 mL yesterday, 2150 mL so far today since overnight. Weight on the bed scale is 121 kg, which is 2 kg below the admission weight. HEAD AND NECK EXAMINATION: Extraocular muscles intact. Pupils are equal, round and reactive to light. Mucous membranes are very dry. NECK: Supple. There is no jugular venous distention (JVD). CARDIOVASCULAR: S1, S2. Regular rate. No murmur, rub or gallop. RESPIRATORY: Decreased breath sounds at the bases. She is very congested and generalized expiratory rhonchi at the bases bilaterally. ABDOMEN: Soft, obese. Positive bowel sounds. Nontender. No ascites. No organomegaly. EXTREMITIES: No clubbing or cyanosis. Pulses are 2+. CENTRAL NERVOUS SYSTEM (EMT DISPATCHER): The patient has decreased muscle strength. Power is 3/5 to 4/5 in bilateral lower extremities. She is otherwise oriented times three. SKIN: No rashes or ulcers. LABORATORY REVIEW: CBC showed a WBC of 6.4, hemoglobin 11.3, platelets are 238. BMP showed sodium 141, potassium 4.4, chloride 98, bicarbonate 36, BUN 33, creatinine is 2.19, glucose 376, calcium is 8.7. Microbiology: Respiratory panel was positive for influenza A. Urinalysis was negative for leukocyte esterase and nitrates. IMAGING: CT scan of the chest was done today, which showed bibasilar atelectasis, calcified granulomas on the right, and there was a Port-A-Cath on the right side. Renal ultrasound done and showed some mild atrophy overall with a 9.6 cm long right and 9.8 cm long left kidney without hydronephrosis or hydroureter. ASSESSMENT: 70-year-old female with a past medical history of chronic kidney disease stage III, chronic diastolic congestive heart failure (CHF), chronic obstructive pulmonary disease (COPD), diabetes, and multiple other comorbidities admitted this time with respiratory distress secondary to influenza pneumonia. Nephrology service following the patient for management of acute kidney injury superimposed on chronic kidney disease stage III. PLAN: 1. Acute kidney injury superimposed on chronic kidney disease stage III. The patient's best creatinine, according to previous laboratories, is around 1.1. Acute kidney injury is most likely secondary to dehydration, volume depletion and use of diuretics. The patient has very dry mucous membranes. I have stopped spironolactone and torsemide. I am going to start the patient on IV fluids at 250 mL an hour for the next four hours, the patient will get a total of 1 liter of IV fluids. Continue to monitor for improvement of renal function. Avoid RIZWANA inhibitors or nonsteroidal antiinflammatory drugs at this time. 2. Chronic diastolic congestive heart failure (CHF). As mentioned above, the patient is not in any fluid overload at this time. She is actually clinically dry. Diuretics are on hold. Blood pressure is acceptable. Continue to monitor off of diuretics at this time. 3. Acute rep distress secondary to influenza pneumonia. Continue Tamiflu and nebulizations as per primary team. The patient has a history of chronic obstructive pulmonary disease (COPD) a well. If her symptoms do not improve, she can get IV steroids as well. 4. Insulin-dependent diabetes mellitus. The patient is currently on Levemir and insulin sliding scale. She is hyperglycemic at this time. Management of insulin is as per primary team. I would not start the RIZWANA inhibitor on this patient in acute kidney injury. 4. Recurrent urinary tract infection (UTI). The patient's urinalysis is negative for nitrite and leukocyte esterase. She is asymptomatic at this time. Thank you for involving us in the care of this patient. We shall be happy to follow the patient along with you tomorrow morning. Plan of care was discussed with the hospitalist team, Dr. Justo Houser.
[2016-05-25 14:00] VITALS: BP 126/80
[2016-05-25] MEDS: ACETAMINOPHEN TAB 650MG DOSE (2X325MG) PO PRN ×2 (14:21→21:39)
--- NOTE | 2016-05-25 15:10 | IPNPDOC ---
Text Note Date of Service The patient was seen on 05/25/16. NOTE Subjective: The patient has dyspnea on exertion. No chest pain/palpations. Objective: Vitals: (see below) General: No acute distress, laying comfortably in bed. HEENT: Moist mucous membranes. Neck: No JVD or lymphadenopathy Cardiac: RRR, No murmurs Pulm: Coarse crackles at the bases b/l. Mild exp wheezing. Rhonchi bilaterally Abd: NT/ND + BS Ext: Trace edema bilateral lower extremity. No cyanosis Labs (see below) Images: CT Chest 05/25/16 Impression: Bibasilar atelectatic changes, similar to the prior CT. Calcified granulomas on the right, unchanged. There is an indwelling central venous catheter with the tip in the right atrium in satisfactory location, unchanged. Sequela of prior fractures versus foreign bodies posteriorly on the right. Foreign bodies posteriorly on the left. No significant interval change from the prior studies. Assessment/Plan 1. Acute respiratory distress secondary to influenza. Currently having fevers. Sputum cultures pending. Started on vancomycin pending cultures. Continue Tamiflu. Droplet precautions. Although these fevers are likely secondary to the influenza, will need to repeat blood cultures, and if positive, will need to remove the central line. Started today on nebulizers, steroids. CT of the chest with no consolidation. 2. History of arachnoiditis- stable 3. Musculoskeletal chest pain, resolved 4. Acute kidney injury on chronic kidney disease, baseline creatinine of 1.1. It appears that patient is very dry. Appreciate nephrology input. Diuretics have been discontinued. Patient is being rehydrated. 5.Diabetes mellitus - Levemir dose increased. Sounds on. 6. History of diastolic heart failure, compensated. 7. History of DVT status post IVC 8. MATT on CPAP DVT prophy: Heparin subcutaneous VS,Fishbone, I+O VS, Fishbone, I+O Laboratory Tests 05/25/16 05:20 Calcium Level 8.7 L, Red Blood Count 4.40, Mean Corpuscular Volume 86.8, Mean Corpuscular Hemoglobin 25.6 L, Mean Corpuscular Hemoglobin Concent 29.5 L, Red Cell Distribution Width 18.7 H Vital Signs Date Time Temp Pulse Resp B/P Pulse Ox O2 Delivery O2 Flow Rate FiO2 05/25/16 10:50 80 136/74 05/25/16 06:00 97.4 20 92 Nasal Cannula 2.0 I&O- Last 24 Hours up to 6 AM 05/25/16 05:59 Intake Total 1640 ml Output Total 4400 ml Balance -2760 ml KEARA MCGHEE MD May 25, 2016 15:10
[2016-05-25] MEDS ORDERED: methylPREDNISolone INJ 40 MG/1 ML VIAL (J2920) IV SCH (15:15)
--- NOTE | 2016-05-25 15:22 | IPNPDOC ---
Text Note Date of Service The patient was seen on 05/25/16. NOTE Subjective: Patient states her breathing is much improved. States she still has right ankle pain. Objective: Vitals: (see below) General: No acute distress, laying comfortably in bed. HEENT: Moist mucous membranes. Neck: No JVD or lymphadenopathy Cardiac: RRR, No murmurs Pulm: Coarse crackles bilateral bases bilaterally. No wheezing, rhonchi Abd: NT/ND + BS Ext: Right ankle tenderness with range of motion and palpation. Bruising noted. Swelling 1+ pitting edema noted. Distal pulses intact. Marked areas of cellulitis are improving. Labs (see below) Images: MRI Right Ankle 05/24/16 Impression: 1. Joint effusion without significant abnormal enhancement of the marrow. There is no evidence for fracture. Some marrow edema suggesting a bone bruise distal aspect of the tibia at the tibial plafond and junction with the medial malleolus as well as a tiny focus in the adjacent talar dome. No osteochondral lesion. 2. The joint capsule shows some slight enhancement along with the effusion and suggesting some synovitis and a joint effusion with tenosynovitis adjacent to the EDL and EHL tendons. There is no tendonitis or tear of any of the tendons. 3. The ligaments anterior and posterior to the ankle were grossly intact. CT chest 05/24/16 Impression: 1. Advanced COPD and emphysematous changes. 2. Superimposed consolidation involving the left upper lobe. Follow-up to resolution recommended. 3. Three small noncalcified nodules in the right lower lobe and left lower lobe may warrant 3 to 6 month follow-up. Venous Doppler U/S 05/22/16 Impression: No evidence for deep venous thrombosis. Assessment/Plan 1. Bilateral pneumonia- patient still spiking fevers. Has influenza a H3. Continues otherwise, change Rocephin to Zosyn. Left upper lobe consolidation. Still requiring 2 L oxygen. On vancomycin and Doxy pending sputum and blood cultures. 2. COPD- continues to smoke. Nebulizers. 3. Right ankle pain with areas of cellulitis raising suspicion for septic joint. MRI see above. Spoke to Dr. Jerez, who will evaluate patient for possible arthrocentesis. 4. Lung nodule- 5 from 9 mm, on the repeat CAT scan in 36 months. 5. Osteoporosis with prior compression fractures 6. Dementia 7. Oral thrush nystatin. DVT prophy: Heparin subcutaneous VS,Fishbone, I+O VS, Fishbone, I+O Laboratory Tests 05/25/16 05:20 Calcium Level 8.7 L, Red Blood Count 4.40, Mean Corpuscular Volume 86.8, Mean Corpuscular Hemoglobin 25.6 L, Mean Corpuscular Hemoglobin Concent 29.5 L, Red Cell Distribution Width 18.7 H Vital Signs Date Time Temp Pulse Resp B/P Pulse Ox O2 Delivery O2 Flow Rate FiO2 05/25/16 10:50 80 136/74 05/25/16 06:00 97.4 20 92 Nasal Cannula 2.0 I&O- Last 24 Hours up to 6 AM 05/25/16 06:00 Intake Total 1730 ml Output Total 5050 ml Balance -3320 ml KEARA MCGHEE MD May 25, 2016 15:22
--- NOTE | 2016-05-25 15:28 | PHACANCOPD ---
PHARMACY VANCOMYCIN DOSING Pt Demographics Demographics Patient Age:70 , Weight:121.000 , Gender: female Adjusted Body Weight Date: 05/25/16, Adjusted Body Weight: Kg Events Past 24 Hours Events Past 24 Hours: NO: Change in CrCl, Dialysis, Diuretic Therapy, Elevation in WBC, Fever, Other, Pending Diagnostics, Pending Procedures Vancomycin Vancomycin indication: FEVERS Vancomycin Target Ranges: 15-20 mcg/ml Vancomycin Load Y/N: No Load Dose Date Time Vancomycin Load Dose: Date: Time: Vancomycin Dose Date: 05/25/16. Current Vancomycin Dose: [1000MG IV Q24H @ 1700] Intermittent Dosing?: No Labs Labs Item Value Date Time White Blood Count 6.7 K/mm3 05/24/16 0459 White Blood Count 6.4 K/mm3 05/25/16 0520 Creatinine 2.12 MG/DL H 05/24/16 0459 Creatinine 2.19 MG/DL H 05/25/16 0520 Micro Microbiology 05/23/16 Blood Culture - Preliminary, Resulted No Growth after 48 hours. All Specime... 05/23/16 Blood Culture - Preliminary, Resulted No Growth after 48 hours. All Specime... 05/25/16 Gram Stain - Final, Resulted 05/25/16 Sputum Culture, Resulted Pending 05/23/16 Respiratory Virus Panel (PCR) (GORDY) - Final, Complete Influenza A H3 05/24/16 Urine Culture, Received Pending Creatinine Clearance Date:05/25/16. Creatinine Clearance: [24ML/MIN]. Pending Labs VANCO TROUGH 05/27 @ 1600 Assessment and Plan Maintaining Current Dose?: No Reason for dose change: No Dose Change Pharmacist Note Pharmacist Note Date: 05/25/16. Pharmacist note: Vanco 1000mg IV q24h initiated @ 1600. Cultures are pending. Trough is scheduled to be drawn after 2 doses (05/27 @ 1600). Monitor renal function and adjust dose as needed [facility] May 25, 2016 15:28
[2016-05-25] MEDS: predniSONE 20 MG TAB PO SCH (15:45)
[2016-05-25] MEDS: VANCOMYCIN HCL 1,000 MG, VIAL MATE ADAPTER 1 EACH in D5W 250 ML IV SCH (16:55)
[2016-05-25 17:57] LABS: ABG pH (ARTERIAL) 7.326 UNITS (7.350-7.450)
[2016-05-25 17:58] LABS: ABG BASE EXCESS 3.6 (-2.0-2.0); ABG HCO3 30.8 MEQ/L (22.0-26.0); ABG PARTIAL PRESSURE CO2 60.4 mmHg (35.0-45.0); ABG PARTIAL PRESSURE O2 65.8 mmHg (75.0-100.0); ABG STANDARD HCO3 27.6 MEQ/L (22.0-26.0); ABG TOTAL CO2 32.7 MEQ/L (23.0-31.0)
[2016-05-25 21:43] LABS: ABG BASE EXCESS 6.1 (-2.0-2.0); ABG HCO3 33.7 MEQ/L (22.0-26.0); ABG PARTIAL PRESSURE O2 61.5 mmHg (75.0-100.0); ABG STANDARD HCO3 29.9 MEQ/L (22.0-26.0); ABG TOTAL CO2 35.7 MEQ/L (23.0-31.0); ABG pH (ARTERIAL) 7.336 UNITS (7.350-7.450)
[2016-05-25 21:45] LABS: ABG PARTIAL PRESSURE CO2 64.5 mmHg (35.0-45.0)
[2016-05-25 22:00] VITALS: BP 148/70
--- NOTE | 2016-05-25 22:45 | EDDOCDS ---
Nurse's Notes [facility] Name: Shivani Stern Age: 70 yrs Sex: Female : 1945 Arrival Date: 05/23/2016 Time: 12:13 Bed 8 Private MD: Paulo Villalobos Diagnosis: Chronic obstructive pulmonary disease with (acute) exacerbation;Influenza due to identified novel influenza A virus Presentation: 05/23 12:31 Presenting complaint: Patient states: ill for the last 2 days with elevated temp cough bcj much more SOB than usual at home. tight cough with no sputum. temp up to 101 at home. denies chest pain. becomes very SOB with any activity. Adult Sepsis Screening: The patient does not have new or worsening altered mentation. Patient has a respiratory rate of greater than or equal to 22 (1 point). Systolic blood pressure is greater than 100. Patient has a qSOFA score of 1- Negative Sepsis Screen. Suicide/Homicide risk assessment- the patient denies having any suicidal and/or homicidal ideations and does not present with any other emotional, behavioral or mental health complaints. Status: Patient is not a dietary service aide or dependent. Transition of care: patient was not received from another setting of care. Red Flag criteria, patient assessed and taken directly to a bed. 12:31 Acuity: [facility] 12:31 Method Of Arrival: Walkin/Carried/[facility] Triage Assessment: 12:35 General: Appears in no apparent distress, comfortable, Behavior is cooperative. Pain: bcj Denies pain. Neurological: Level of Consciousness is awake, alert. Cardiovascular: Rhythm is sinus tachycardia. Respiratory: Onset: The symptoms/episode began/occurred yesterday, Airway Respiratory effort is even, labored, Respiratory pattern is tachypnea. Historical: - Allergies: CEPHALOSPORINS (Rash); Chlorpromazine (Rash); Doxycycline (Rash); Latex (Rash); loratadine (Rash); Methadone (Rash); Morphine (Rash); PENICILLINS (Rash); PENTAZOCINE (Rash); - Home Meds: 1. Amitiza 24 mcg oral cap 2 times per day 2. baclofen 20 mg Oral tab twice a day 3. bisoprolol fumarate 5 mg oral tab 0.5 tab once daily 4. Colace 100 mg oral cap 1 cap once daily 5. fluoxetine 20 mg Oral cap 1 cap once daily 6. Lantus 100 unit/mL Sub-Q crtg 78 unit twice a day 7. metoclopramide HCl 10 mg Oral tab 1 tab once daily 8. Novolog 100 unit/mL Sub-Q soln 16 unit before meals 9. omeprazole 20 mg Oral cpDR once daily 10. potassium chloride 10 mEq Oral cpER 1 cap once daily 11. pregabalin 50 mg Oral cap 1 cap 3 times per day 12. promethazine 25 mg Oral tab 1 tab once daily 13. senna 8.6 mg oral tab 2 tabs once daily 14. spironolactone 25 mg Oral tab 1 tab once daily 15. sucralfate 1 gram Oral tab 1 tab 2 times per day 16. torsemide 50 mg oral tab twice a day 17. Vitamin D Oral 1,000 unit daily 18. Zofran (as hydrochloride) 4 mg Oral tab daily - PMHx: Asthma; blood clot in left leg; CHF; Diabetes - IDDM: controlled; Hypertension; Migraines; paralyzed diaphragm; retenoiditis; Seizures; Sleep Apnea w/ CPAP; - PSHx: Adeel Filter Placement; right knee surgery; right hip surgery; lung surgery; Hysterectomy; back surgery; left ankle surgery; - Social history: Smoking status: Patient states was never smoker of tobacco. No barriers to communication noted, The patient speaks fluent Chinese, Speaks appropriately for age. - Family history: Not pertinent. - : The pt / caregiver states he / she is not on anticoagulants. Home medication list is obtained from the patient, [employer] import data. - Exposure Risk Screening:: None identified. Screenin:15 Screening information is obtained from the patient. Fall risk: At risk due to jo3 immobility. Assistance ADL's: requires no assistance with activities of daily living. Abuse/DV Screen: The patient / caregiver reports he/she is: not in a situation that causes fear, pain or injury. Nutritional screening: No deficits noted. Advance Directives: There is no active DNR order. home support is adequate. Assessment: 13:15 General: Appears in no apparent distress, Behavior is appropriate for age, cooperative. jo3 Neurological: Level of Consciousness is awake, alert, Oriented to person, place, time. Cardiovascular: Chest pain is denied. Respiratory: Airway is patent Respiratory effort is labored, Breath sounds are diminished bilaterally. Breath sounds with wheezes bilaterally. Reports shortness of breath at rest. Derm: Skin is pink, warm & dry. 14:05 Reassessment: Patient appears in no apparent distress at this time. No significant jo3 changes noted. pt reports feeling mildly improved since arrival. Awaiting results for admission. at bedside. Aware of plan of care . 14:55 Reassessment: Patient appears in no apparent distress at this time. Patient denies pain jo3 at this time. Resting on stretcher at this time. remains at bedside. Awaiting results for admission. Aware of plan of care . 15:44 General: Appears in no apparent distress, Behavior is appropriate for age, cooperative. jo3 General:. Neurological: Level of Consciousness is awake, alert, Oriented to person, place, time. Respiratory: Airway is patent Respiratory effort is unlabored. Derm: Skin is pink, warm & dry. 16:50 General: Appears in no apparent distress, comfortable, Behavior is appropriate for age, jo3 cooperative, pleasant. Neurological: Level of Consciousness is awake, alert, Oriented to person, place, time. Cardiovascular: Chest pain is denied. Respiratory: Airway is patent Respiratory effort is even, unlabored, Breath sounds with wheezes bilaterally. Derm: Skin is pink, warm & dry. 17:45 General: Appears in no apparent distress, comfortable, Behavior is appropriate for age, jo3 cooperative, pleasant. Neurological: Level of Consciousness is awake, alert, Oriented to person, place, time. Respiratory: Airway is patent Respiratory effort is even, unlabored. Derm: Skin is pink, warm & dry. 18:35 General: Appears in no apparent distress, comfortable, Behavior is appropriate for age, jo3 cooperative, pleasant. General: Pt re[ports that breathing has improved. Awaiting admission at this time. Aware of plan of care . Neurological: Level of Consciousness is awake, alert, Oriented to person, place, time. Respiratory: Airway is patent Respiratory effort is even, unlabored. Derm: Skin is pink, warm & dry. 19:30 General: Appears in no apparent distress, comfortable, Behavior is appropriate for age, ko2 cooperative. Pain: Location: back Pain currently is 9 out of 10 on a pain scale. Neurological: Level of Consciousness is awake, alert, Oriented to person, place, time. Respiratory: Airway is patent Respiratory effort is even, unlabored. Derm: Skin is pink, warm & dry. 20:56 General: Behavior is appropriate for age, cooperative. Neurological: Level of ko2 Consciousness is awake, alert. Respiratory: Airway is patent Respiratory effort is even, unlabored. Derm: Skin is pink, warm & dry. Vital Signs: 12:14 BP 143 / 71; Pulse 86; Resp 18 S; Temp 102.4(O); Pulse Ox 97% on 2 lpm NC; Weight gr2 123.38 kg (R); Height 5 ft. 7 in. (170.18 cm) (R); Pain 4/10; 12:29 Pulse 94 MON; Pulse Ox 91% ; jo3 12:35 BP 120 / 68; Pulse 105; Resp 28; Temp 102.3(O); Pulse Ox 89% on R/A; Pain 0/10; bcj 12:39 Pulse 86 MON; Pulse Ox 96% ; jo3 12:50 Pulse 86 MON; Pulse Ox 95% ; jo3 13:00 Pulse 84 MON; Pulse Ox 95% ; jo3 13:15 Pulse 86 MON; Pulse Ox 97% ; jo3 14:26 BP 143 / 64 (auto/); jo3 14:26 Pulse 94 MON; Pulse Ox 89% ; jo3 15:00 BP 147 / 64 (auto/); jo3 15:00 Pulse 92 MON; Pulse Ox 92% ; jo3 15:04 Temp 101.8(O); jo3 15:15 BP 147 / 67 (auto/); jo3 15:15 Pulse 92 MON; Pulse Ox 93% ; jo3 15:30 BP 147 / 64 (auto/); jo3 15:30 Pulse 92 MON; Pulse Ox 93% ; jo3 15:45 BP 160 / 65 (auto/); jo3 15:45 Pulse 92 MON; Pulse Ox 90% ; jo3 16:00 BP 134 / 61 (auto/); jo3 16:00 Pulse 92 MON; Pulse Ox 92% ; jo3 16:15 BP 119 / 53 (auto/); jo3 16:15 Pulse 92 MON; Pulse Ox 92% ; jo3 16:30 BP 99 / 51 (auto/); jo3 16:30 Pulse 94 MON; Pulse Ox 97% ; jo3 17:00 BP 120 / 66 (auto/); jo3 17:00 Pulse 98 MON; Pulse Ox 94% ; jo3 17:25 BP 121 / 67 (auto/); jo3 17:25 Pulse 100 MON; jo3 17:45 BP 119 / 58 (auto/); jo3 17:45 Pulse 94 MON; Resp 22; Pulse Ox 92% ; jo3 18:12 Pulse 96 MON; Pulse Ox 91% ; ko2 18:19 Temp 101.3(TE); jlm 19:09 BP 154 / 118 (auto/); ko2 20:07 Pulse 88 MON; Pulse Ox 95% ; ko2 20:09 BP 105 / 54 (auto/); ko2 20:42 BP 102 / 63; Pulse 89; Resp 20; Temp 97.3(O); Pulse Ox 92% on 3 lpm NC; Pain 8/10; andrea 12:14 Body Mass Index 42.60 (123.38 kg, 170.18 cm) gr2 Vitals: 12:14 Log In Time: May 23, 2016 at 12:14. RN notified that patient meets Red Flag gr2 criteria. ED Course: 12:14 Patient visited by Eric Mercer. gr2 12:14 Paulo Villalobos MD is Private Physician. gr2 12:14 Patient moved to Waiting gr2 12:18 Patient visited by Eric Mercer. gr2 12:18 Patient moved to Pre RCE gr2 12:19 Patient moved to 8 gr2 12:22 [facility] le 12:33 Triage Initiated bcj 12:37 Patient visited by Jordin Denis RN. bcj 12:42 Patient visited by Sita No FNP. le 12:43 Patient visited by Sita No FNP. le 12:49 EKG done. (by ED staff). Reviewed by Sita SPENCER. jlf 13:15 The patient / caregiver is instructed regarding the plan of care and ED course. jo3 13:15 Accessed using # 22 Foley needle sterile technique, per hospital protocol. [employer]. jo3 Labs drawn. (by ED staff). Sent per order to lab. Labs/Blood culture drawn. 13:18 Patient visited by John Dow PCA. jlf 13:27 Patient visited by John Dow PCA. jlf 13:33 Patient visited by Zoya Manzo RN. jo3 13:53 Chest, 2 view PA, Lat Returned. EDMS 14:17 Patient visited by John Dow PCA. jlf 14:35 Inserted saline lock: 22 gauge in right forearm The patient tolerated the procedure dsf well. 15:27 Patient visited by America Up,RN. kc3 15:39 Patient visited by Zoya Manzo,GURMEET. jo3 15:44 Patient visited by Zoya Manzo,GURMEET. jo3 16:13 [facility] Payment Agreement was scanned into [employer] and attached to record. [facility] 16:27 Trang Mcgee is Hospitalizing Provider. le 17:33 Patient moved to Admit Hold kpj 18:09 Diet tray given. jlm 18:10 Patient visited by Herlinda Hernandez, Special Investigation Unit Investigator. jlm 18:19 Patient visited by Herlinda Hernandez, Special Investigation Unit Investigator. jlm 18:33 ECG WITH READING ER PHYS Returned. EDMS 19:07 Patient visited by Zoya Manzo,GURMEET. jo3 19:18 Dayanna Smith,GURMEET is Primary Nurse. ko2 20:42 Patient visited by Alie Hilario PCA. andrea 20:42 Assisted to bedside commode. andrea 20:53 [facility] to [facility] 20:58 No procedures done that require assistance. ko2 05/24 12:31 T-Sheet-- Draft Copy was scanned into [employer] and attached to record. gb 12:31 ECG/EKG was scanned into [employer] and attached to record. gb Administered Medications: 05/23 12:32 Drug: Acetaminophen 650 mg [acetaminophen 325 mg tablet (2 tabs)] Route: PO; kr3 13:47 Drug: Albuterol 5 mg [albuterol sulfate 2.5 mg/0.5 mL solution for nebulization (1 mL)] kt1 Route: Nebulizer; 13:50 Drug: Solu-MEDROL 125 mg [Solu-Medrol 500 mg intravenous solution (125 mg)] Route: IVP; jo3 Site: Implantable Access Device; 13:50 Drug: Magnesium Sulfate in D5W 2 grams [magnesium sulfate 1 gram/100 mL in dextrose 5 % jo3 intravenous piggyback] Route: IV; Rate: 2000 mg/hr; Site: Implantable Access Device; 16:18 Follow up: IV Status: Completed infusion kc3 14:35 Drug: NS 0.9% 1000 ml Route: IV; Rate: bolus; Site: Implantable Access Device; dsf 15:46 Drug: levofloxacin 750 mg [levofloxacin 250 mg/50 mL in 5 % dextrose intravenous kc3 piggyback] Route: IVPB; Infused Over: 90 mins; Site: right forearm; 15:46 Drug: Ibuprofen 600 mg [ibuprofen 600 mg tablet (1 tabs)] Route: PO; kc3 16:35 Drug: Albuterol-Ipratropium 3 ml [ipratropium-albuterol 0.5 mg-3 mg(2.5 mg base)/3 mL lb nebulization soln (3 mL)] Route: Inhalation; 16:43 Drug: Oseltamivir 75 mg [oseltamivir 75 mg capsule (1 caps)] Route: PO; kc3 RT: 13:46 Initial Med Neb Given as ordered Patient was instructed and evaluated on procedure kt1 Patient tolerated procedure well without adverse effect. Respiratory: Breath sounds are coarse. 13:47 ABG's drawn from right radial artery unsuccesfully attempted, provider notified. kt1 pressure held for 5 minutes, no bleeding noted pressure bandage applied pt. tolerated well. 16:42 Subsequent Med Neb Given as ordered Patient tolerated procedure well without adverse lb effect. Respiratory: Breath sounds are coarse bilaterally. Order Results: Lab Order: C REACTIVE PROTEIN QUANTITATIV; SPEC'M 05/23/16 13:07 Test: C REACTIVE PROTEIN QUANTITATIV; Value: 9.09; Range: 0.00-0.30; Abnormal: Above high normal; Units: MG/DL; Status: F Lab Order: CBC WITH DIFFERENTIAL; SPEC'M 05/23/16 13:07 Test: WHITE BLOOD COUNT; Value: 10.1; Range: 4.0-10.0; Abnormal: Above high normal; Units: K/mm3; Status: F Test: RED BLOOD COUNT; Value: 4.65; Range: 4.00-5.40; Units: M/mm3; Status: F Test: HEMOGLOBIN; Value: 11.9; Range: 12.0-16.0; Abnormal: Below low normal; Units: g/dl; Status: F Test: HEMATOCRIT; Value: 39.5; Range: 36.0-47.0; Units: %; Status: F Test: MEAN CORPUSCULAR VOLUME; Value: 84.9; Range: 80.0-96.0; Units: fl; Status: F Test: MEAN CORPUSCULAR HEMOGLOBIN; Value: 25.6; Range: 27.0-33.0; Abnormal: Below low normal; Units: pg; Status: F Test: MEAN CORPUSCULAR HGB CONC; Value: 30.2; Range: 32.0-36.5; Abnormal: Below low normal; Units: g/dl; Status: F Test: RED CELL DISTRIBUTION WIDTH; Value: 19.2; Range: 11.5-14.5; Abnormal: Above high normal; Units: %; Status: F Test: PLATELET COUNT, AUTOMATED; Value: 236; Range: 150-450; Units: k/mm3; Status: F Test: NEUTROPHILS %; Value: 83.6; Range: 36.0-66.0; Abnormal: Above high normal; Units: %; Status: F Test: LYMPH %; Value: 6.3; Range: 24.0-44.0; Abnormal: Below low normal; Units: %; Status: F Test: MONO %; Value: 7.0; Range: 0.0-5.0; Abnormal: Above high normal; Units: %; Status: F Test: EOS %; Value: 1.4; Range: 0.0-3.0; Units: %; Status: F Test: BASO %; Value: 0.7; Range: 0.0-1.0; Units: %; Status: F Test: LARGE UNSTAINED CELL %; Value: 1.0; Range: 0.0-4.0; Units: %; Status: F Test: NEUTROPHILS #; Value: 8.4; Range: 1.8-7.7; Abnormal: Above high normal; Units: K/mm3; Status: F Test: LYMPH #; Value: 0.8; Range: 1.5-4.5; Abnormal: Below low normal; Units: K/mm3; Status: F Test: MONO #; Value: 0.7; Range: 0.0-0.8; Units: K/mm3; Status: F Test: EOS #; Value: 0.1; Range: 0.0-0.50; Units: K/mm3; Status: F Test: BASO #; Value: 0.1; Range: 0.0-0.2; Units: K/mm3; Status: F Test: LARGE UNSTAINED CELL #; Value: 0.1; Range: 0.0-0.4; Units: K/mm3; Status: F Lab Order: LACTIC ACID LEVEL, LACTATE; [facility] 05/23/16 13:07 Test: LACTIC ACID SEPSIS PROTOCOL; Value: 2.3; Range: 0.4-2.0; Abnormal: Above upper panic limits; Units: MMOL/L; Status: F Lab Order: LIVER PROFILE; [facility] 05/23/16 13:07 Test: AST/SGOT; Value: 61; Range: 15-37; Abnormal: Above high normal; Units: U/L; Status: F Test: ALT/SGPT; Value: 56; Range: 12-78; Units: U/L; Status: F Test: ALKALINE PHOSPHATASE; Value: 134; Range: 45-117; Abnormal: Above high normal; Units: U/L; Status: F Test: BILIRUBIN,TOTAL; Value: 0.4; Range: 0.2-1.0; Units: MG/DL; Status: F Test: BILIRUBIN,DIRECT; Value: 0.1; Range: 0.0-0.2; Units: MG/DL; Status: F Test: TOTAL PROTEIN; Value: 7.4; Range: 6.4-8.2; Units: GM/DL; Status: F Test: ALBUMIN; Value: 3.3; Range: 3.2-5.2; Units: GM/DL; Status: F Test: ALBUMIN/GLOBULIN RATIO; Value: 0.80; Range: 1.00-1.93; Abnormal: Below low normal; Status: F Lab Order: BASIC METABOLIC PROFILE; [facility] 05/23/16 13:07 Test: GLUCOSE, FASTING; Value: 264; Range: 83-110; Abnormal: Above high normal; Units: MG/DL; Status: F Test: BLOOD UREA NITROGEN; Value: 13; Range: 7-18; Units: MG/DL; Status: F Test: CREATININE FOR GFR; Value: 1.69; Range: 0.55-1.02; Abnormal: High; Units: MG/DL; Status: F Test: GLOMERULAR FILTRATION RATE; Value: 31.8; Range: >39; Abnormal: Below low normal; Status: F Test: SODIUM LEVEL; Value: 140; Range: 136-145; Units: MEQ/L; Status: F Test: POTASSIUM SERUM; Value: 4.5; Range: 3.5-5.1; Abnormal: Delta; Units: MEQ/L; Status: F Test: CHLORIDE LEVEL; Value: 100; Range: 98-107; Units: MEQ/L; Status: F Test: CARBON DIOXIDE LEVEL; Value: 33; Range: 21-32; Abnormal: Above high normal; Units: MEQ/L; Status: F Test: ANION GAP; Value: 7; Range: 8-16; Abnormal: Below low normal; Units: MEQ/L; Status: F Test: CALCIUM LEVEL; Value: 8.9; Range: 8.8-10.2; Units: MG/DL; Status: F Test Note: ; Units are mL/min/1.73 m2 Chronic Kidney Disease Staging per NKF: Stage I & II GFR >=60 Normal to Mildly Decreased Stage III GFR 30-59 Moderately Decreased Stage IV GFR 15-29 Severely Decreased Stage V GFR <15 Very Little GFR Left ESRD GFR <15 on CHIEF BUSINESS DEVELOPMENT OFFICER Lab Order: RESPIRATORY PANEL; SPEC'M 05/23/16 13:07 Test: RESPIRATORY PANEL; Value: RP PANEL RESULT POSITIVE by PCR; Abnormal: Abnormal; Status: F Test: RESPIRATORY PANEL; Value: Comments:; Status: F Test: RESPIRATORY PANEL; Value: ORGANISM 1: INFLUENZA A H3; Status: F Test: RESPIRATORY PANEL; Value: INFLUENZA A H3; Status: F Test: RESPIRATORY PANEL; Value: Influenza H3 1 Influenza causes upper respiratory tract infections; Status: F Test: RESPIRATORY PANEL; Value: Influenza H3 10 Influenza A1H3.; Status: F Test: RESPIRATORY PANEL; Value: Influenza H3 2 with rapid onset of fever. During annual Influenza; Status: F Test: RESPIRATORY PANEL; Value: Influenza H3 3 epidemics, 5-20% of the population is affected.; Status: F Test: RESPIRATORY PANEL; Value: Influenza H3 4 Complications with viral or bacterial pneumonia; Status: F Test: RESPIRATORY PANEL; Value: Influenza H3 5 increase mortality from Influenza infections. There; Status: F Test: RESPIRATORY PANEL; Value: Influenza H3 6 are currently at least four antiviral medications; Status: F Test: RESPIRATORY PANEL; Value: Influenza H3 7 available for Influenza treatment (amantadine,; Status: F Test: RESPIRATORY PANEL; Value: Influenza H3 8 rimantadine, zanamivir and oseltamivir). More severe; Status: F Test: RESPIRATORY PANEL; Value: Influenza H3 9 disease and increased mortality are associated with; Status: F Test Note: ; This respiratory PCR panel detects Influenza A H1, H3 and 2009 H1 viruses, Influenza B virus, Respiratory syncytial virus, Human metapneumovirus, Parainfluenza virus 1, 2, 3 and 4, Adenovirus, Rhinovirus/Enterovirus, Coronavirus HKU1, NL63, OC43 and 229E, Bordetella pertussis, Mycoplasma pneumoniae and Chlamydia pneumoniae. Lab Order: Venous Blood Gas (large pea green tube on ice); SPEC'M 05/23/16 13:45 Test: VENOUS PH; Value: 7.471; Range: 7.330-7.430; Abnormal: Above high normal; Units: UNITS; Status: F Test: VENOUS PARTIAL PRESSURE CO2; Value: 40.1; Range: 38.0-50.0; Units: mmHg; Status: F Test: VENOUS PARTIAL PRESSURE O2; Value: 230.2; Range: 30.0-50.0; Abnormal: Above high normal; Units: mmHg; Status: F Test: VENOUS TOTAL CO2; Value: 29.8; Range: 24.0-28.0; Abnormal: Above high normal; Units: MEQ/L; Status: F Test: VENOUS HCO3; Value: 28.6; Range: 23.0-27.0; Abnormal: Above high normal; Units: MEQ/L; Status: F Test: VENOUS BASE EXCESS; Value: 4.6; Range: -2.0-2.0; Abnormal: Above high normal; Status: F Test: VENOUS STANDARD HCO3; Value: 28.7; Units: MEQ/L; Status: F Test: VENOUS O2 SATURATION; Value: 99.3; Range: 60.0-80.0; Abnormal: Above high normal; Units: %; Status: F Lab Order: LACTIC ACID LEVEL, LACTATE; SPEC'M 05/23/16 18:35 Test: LACTIC ACID SEPSIS PROTOCOL; Value: 1.6; Range: 0.4-2.0; Units: MMOL/L; Status: F Radiology Order: Chest, 2 view PA, Lat Test: Chest, 2 view PA, Lat REASON FOR EXAMINATION: DIFF BREATHING; Clinical: Dyspnea. Shortness of breath.; ; Comparison: 05/13/2016.; ; Findings:; Limited examination due to technique and positioning. Bibasilar opacities and; mild pulmonary vascular congestion cannot be excluded. No definite effusion. No; pneumothorax. The [id number]-Lewr with tip in the right atrium. 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 le 20:58 Discharge Assessment: Patient awake, alert and oriented x 3. No cognitive and/or ko2 functional deficits noted. Patient verbalized understanding of disposition instructions. patient administered narcotics -. The following High Risk Discharge criteria are identified: None. Admitted to PCU accompanied by nurse, accompanied by tech, via stretcher, via wheelchair, on monitor, with chart. Condition: stable. No special radiology studies were completed. Property :Personal belongings accompany Pt. 21:03 Admission hand-off: Report Faxed Fax receipt verified by Kimberly Clayton RN PCU. ko2 21:44 Patient left the ED. apr Signatures: [facility] Diandra Goodrich RN RN kpj Johnson, Bruce, RN RN shayy Lion, Corinne Polanco, RN RN andrew Waldrop, Arelis, Reg Reg gb Uzma,Gogo lb Roya,Flakita kt1 Chelita, Deepthi, Special Investigation Unit Investigator Unit ml3 Crystal Lantigua,RN RN kr3 Zoya Manzo,RN RN rasheeda3 Oneal, Sita, JUICE STANDARDIZER JUICE STANDARDIZER jaime Hilario, Alie, PLANNING COORDINATOR PLANNING COORDINATOR andrea Makayla Shah,RN RN dsf Eric Mercer gr2 Jonh Dow, PLANNING COORDINATOR PLANNING COORDINATOR jlf Herlinda Hernandez, Special Investigation Unit Investigator Unit jl Dayanna Smith,RN RN lópez2 Kacy Westfall America Up,RN RN kc3 Corrections: (The following items were deleted from the chart) 13:28 13:18 EKG done. (by ED staff). Reviewed by Sita No JUICE STANDARDIZER jlf jlf Chart Complete MTDD
--- NOTE | 2016-05-25 22:45 | EDDOCDS ---
Physician Documentation [facility] Name: Maricarmen Stern Age: 70 yrs Sex: Female : 1945 Arrival Date: 05/23/2016 Time: 12:13 Bed 8 Private MD: Paulo Villalobos Disposition: 05/23/16 16:27 Hospitalization ordered by Trang cMgee for Inpatient Admission. Preliminary diagnosis are Chronic obstructive pulmonary disease with (acute) exacerbation, Influenza due to identified novel influenza A virus. - [facility] - Status is Inpatient Admission. andrew - Condition is Stable. - Problem is an acute exacerbation. - Symptoms are unchanged. Historical: - Allergies: CEPHALOSPORINS (Rash); Chlorpromazine (Rash); Doxycycline (Rash); Latex (Rash); loratadine (Rash); Methadone (Rash); Morphine (Rash); PENICILLINS (Rash); PENTAZOCINE (Rash); - Home Meds: 1. Amitiza 24 mcg oral cap 2 times per day 2. baclofen 20 mg Oral tab twice a day 3. bisoprolol fumarate 5 mg oral tab 0.5 tab once daily 4. Colace 100 mg oral cap 1 cap once daily 5. fluoxetine 20 mg Oral cap 1 cap once daily 6. Lantus 100 unit/mL Sub-Q crtg 78 unit twice a day 7. metoclopramide HCl 10 mg Oral tab 1 tab once daily 8. Novolog 100 unit/mL Sub-Q soln 16 unit before meals 9. omeprazole 20 mg Oral cpDR once daily 10. potassium chloride 10 mEq Oral cpER 1 cap once daily 11. pregabalin 50 mg Oral cap 1 cap 3 times per day 12. promethazine 25 mg Oral tab 1 tab once daily 13. senna 8.6 mg oral tab 2 tabs once daily 14. spironolactone 25 mg Oral tab 1 tab once daily 15. sucralfate 1 gram Oral tab 1 tab 2 times per day 16. torsemide 50 mg oral tab twice a day 17. Vitamin D Oral 1,000 unit daily 18. Zofran (as hydrochloride) 4 mg Oral tab daily - PMHx: Asthma; blood clot in left leg; CHF; Diabetes - IDDM: controlled; Hypertension; Migraines; paralyzed diaphragm; retenoiditis; Seizures; Sleep Apnea w/ CPAP; - PSHx: [place] Filter Placement; right knee surgery; right hip surgery; lung surgery; Hysterectomy; back surgery; left ankle surgery; - Social history: Smoking status: Patient states was never smoker of tobacco. No barriers to communication noted, The patient speaks fluent Guyanese, Speaks appropriately for age. - Family history: Not pertinent. - : The pt / caregiver states he / she is not on anticoagulants. Home medication list is obtained from the patient, [employer] import data. - Exposure Risk Screening:: None identified. Vital Signs: 05/23 12:14 BP 143 / 71; Pulse 86; Resp 18 S; Temp 102.4(O); Pulse Ox 97% on 2 lpm NC; Weight gr2 123.38 kg / 272.01 lbs (R); Height 5 ft. 7 in. (170.18 cm) (R); Pain 4/10; 12:29 Pulse 94 MON; Pulse Ox 91% ; jo3 12:35 BP 120 / 68; Pulse 105; Resp 28; Temp 102.3(O); Pulse Ox 89% on R/A; Pain 0/10; bcj 12:39 Pulse 86 MON; Pulse Ox 96% ; jo3 12:50 Pulse 86 MON; Pulse Ox 95% ; jo3 13:00 Pulse 84 MON; Pulse Ox 95% ; jo3 13:15 Pulse 86 MON; Pulse Ox 97% ; jo3 14:26 BP 143 / 64 (auto/); jo3 14:26 Pulse 94 MON; Pulse Ox 89% ; jo3 15:00 BP 147 / 64 (auto/); jo3 15:00 Pulse 92 MON; Pulse Ox 92% ; jo3 15:04 Temp 101.8(O); jo3 15:15 BP 147 / 67 (auto/); jo3 15:15 Pulse 92 MON; Pulse Ox 93% ; jo3 15:30 BP 147 / 64 (auto/); jo3 15:30 Pulse 92 MON; Pulse Ox 93% ; jo3 15:45 BP 160 / 65 (auto/); jo3 15:45 Pulse 92 MON; Pulse Ox 90% ; jo3 16:00 BP 134 / 61 (auto/); jo3 16:00 Pulse 92 MON; Pulse Ox 92% ; jo3 16:15 BP 119 / 53 (auto/); jo3 16:15 Pulse 92 MON; Pulse Ox 92% ; jo3 16:30 BP 99 / 51 (auto/); jo3 16:30 Pulse 94 MON; Pulse Ox 97% ; jo3 17:00 BP 120 / 66 (auto/); jo3 17:00 Pulse 98 MON; Pulse Ox 94% ; jo3 17:25 BP 121 / 67 (auto/); jo3 17:25 Pulse 100 MON; jo3 17:45 BP 119 / 58 (auto/); jo3 17:45 Pulse 94 MON; Resp 22; Pulse Ox 92% ; jo3 18:12 Pulse 96 MON; Pulse Ox 91% ; ko2 18:19 Temp 101.3(TE); jlm 19:09 BP 154 / 118 (auto/); ko2 20:07 Pulse 88 MON; Pulse Ox 95% ; ko2 20:09 BP 105 / 54 (auto/); ko2 20:42 BP 102 / 63; Pulse 89; Resp 20; Temp 97.3(O); Pulse Ox 92% on 3 lpm NC; Pain 8/10; andrea 12:14 Body Mass Index 42.60 (123.38 kg, 170.18 cm) gr2 MDM: 12:23 -Blood Culture (Adults Only), peripheral from different site, or from device/port/PICC le etc. if present ordered. 12:23 Call Respiratory ordered. le 12:23 Assembler Lay Ups/Pulse Ox/q 15 min VS ordered. le 12:23 Oxygen at 4L/Min NC or Home dosage ordered. le 12:23 Acetaminophen Tablet 650 mg PO once ordered. le 12:36 ARTERIAL BLOOD GAS Ordered. EDMS 12:36 C REACTIVE PROTEIN QUANTITATIV Ordered. EDMS 12:36 CBC WITH DIFFERENTIAL Ordered. EDMS 12:36 LACTIC ACID LEVEL, LACTATE Ordered. EDMS 12:36 LIVER PROFILE Ordered. EDMS 12:36 BASIC METABOLIC PROFILE Ordered. EDMS 12:37 URINALYSIS Ordered. EDMS 12:37 BLOOD CULTURES Ordered. EDMS 12:37 BLOOD CULTURES Ordered. EDMS 12:37 URINE CULTURE Ordered. EDMS 12:37 Chest, 2 view PA, Lat Ordered. EDMS 12:38 ECG WITH READING ER PHYS ordered. EDMS 12:39 Call Respiratory complete. ar3 12:39 -Blood Culture (Adults Only), peripheral from different site, or from device/port/PICC ar3 etc. if present complete. 12:43 Misc Stores Assistant Order ordered. le 12:46 RESPIRATORY PANEL Ordered. EDMS 12:58 [facility] Stores Assistant Order complete. ar3 13:06 BED REQUEST+ADM ordered. EDMS 13:10 Albuterol 5 mg Nebulizer once ordered. le 13:10 Call Respiratory ordered. le 13:18 Venous Blood Gas (large pea green tube on ice) Ordered. EDMS 13:26 Call Respiratory complete. kr3 13:28 Solu-MEDROL 125 mg IVP once ordered. le 13:28 Magnesium Sulfate in D5W 2 grams IV at 2000 mg/hr once ordered. le 13:42 NS 0.9% 1000 ml IV at bolus once ordered. le 13:50 C REACTIVE PROTEIN QUANTITATIV Reviewed. le 13:50 CBC WITH DIFFERENTIAL Reviewed. le 13:50 LACTIC ACID LEVEL, LACTATE Reviewed. le 13:50 LIVER PROFILE Reviewed. le 13:50 BASIC METABOLIC PROFILE Reviewed. le 14:31 Venous Blood Gas (large pea green tube on ice) Reviewed. le 14:31 Chest, 2 view PA, Lat Reviewed. le 14:54 levofloxacin 750 mg IVPB once over 90 mins ordered. le 15:02 Ibuprofen 600 mg PO once ordered. le 16:01 Financial registration complete. [facility] 16:13 [facility] [facility] Payment Agreement was scanned into [employer] and attached to record. [facility] 16:16 RESPIRATORY PANEL Reviewed. le 16:16 [facility]. Nursing Order ordered. le 16:18 Oseltamivir 75 mg PO once ordered. le 16:19 Albuterol-Ipratropium 3 ml Inhalation once ordered. le 17:03 CONSISTENT CARBOHYDRATE+DIET ordered. EDMS 17:03 Admission / Observation Status ordered. EDMS 17:03 CONSISTENT CARBOHYDRATES ordered. EDMS 17:16 LACTIC ACID LEVEL, LACTATE Ordered. EDMS 19:32 COMPLETE BLOOD COUNT Ordered. EDMS 19:32 BASIC METABOLIC PROFILE Ordered. EDMS 02 12:31 T-Sheet-- Draft Copy was scanned into [employer] and attached to record. gb 12:31 ECG/EKG was scanned into [employer] and attached to record. gb Administered Medications: 05/23 12:32 Drug: Acetaminophen 650 mg [acetaminophen 325 mg tablet (2 tabs)] Route: PO; kr3 13:47 Drug: Albuterol 5 mg [albuterol sulfate 2.5 mg/0.5 mL solution for nebulization (1 mL)] kt1 Route: Nebulizer; 13:50 Drug: Solu-MEDROL 125 mg [Solu-Medrol 500 mg intravenous solution (125 mg)] Route: IVP; jo3 Site: Implantable Access Device; 13:50 Drug: Magnesium Sulfate in D5W 2 grams [magnesium sulfate 1 gram/100 mL in dextrose 5 % jo3 intravenous piggyback] Route: IV; Rate: 2000 mg/hr; Site: Implantable Access Device; 16:18 Follow up: IV Status: Completed infusion kc3 14:35 Drug: NS 0.9% 1000 ml Route: IV; Rate: bolus; Site: Implantable Access Device; dsf 15:46 Drug: levofloxacin 750 mg [levofloxacin 250 mg/50 mL in 5 % dextrose intravenous kc3 piggyback] Route: IVPB; Infused Over: 90 mins; Site: right forearm; 15:46 Drug: Ibuprofen 600 mg [ibuprofen 600 mg tablet (1 tabs)] Route: PO; kc3 16:35 Drug: Albuterol-Ipratropium 3 ml [ipratropium-albuterol 0.5 mg-3 mg(2.5 mg base)/3 mL lb nebulization soln (3 mL)] Route: Inhalation; 16:43 Drug: Oseltamivir 75 mg [oseltamivir 75 mg capsule (1 caps)] Route: PO; kc3 Signatures: Dispatcher [employer] EDJordin Elias RN RN bcj Newman, Jill New RN Arelis Lopez, Reg Crystal GaonaRN RN joaquin3 Zoya ManzoRN GURMEET vanessa3 Sita No, TRAIN ENGINEER TRAIN ENGINEER Nancy Sutton, DIESEL MECHANIC DIESEL MECHANIC ar3 Kacy Westfall Lindsay lb [place], Kristin kt1 Makayla Shah RN dsf [place] Up RN kc3 The chart was reviewed and I authenticate all verbal orders and agree with the evaluation and treatment provided.Corrections: (The following items were deleted from the chart) 13:06 13:02 Chest, 2 view (PA\E\Lat)+XR ordered. EDMS EDMS 13: 13:02 ARTERIAL BLOOD GAS+LAB ordered. EDMS EDMS 13: 13:02 C REACTIVE PROTEIN QUANTITATIV+LAB ordered. EDMS EDMS 13: 13:02 CBC WITH DIFFERENTIAL+LAB ordered. EDMS EDMS : 13:02 LACTIC ACID LEVEL, LACTATE+LAB ordered. EDMS EDMS : 13:02 LIVER PROFILE+LAB ordered. EDMS EDMS : 13:02 BASIC METABOLIC PROFILE+LAB ordered. EDMS EDMS : 13:02 URINALYSIS+LAB ordered. EDMS EDMS 13: 13:02 -BLOOD CULTURES+GORDY ordered. EDMS EDMS 13: 13:02 URINE CULTURE+GORDY ordered. EDMS EDMS 13:45 13:02 ECG WITH READING ER PHYS+CARDIAG ordered. EDMS EDMS Attachments: 16:13 [facility] Payment Agreement [facility] 05/24 12:31 T-Sheet-- Draft Copy 12:31 ECG/EKG Chart Complete MTDD
--- NOTE | 2016-05-25 22:45 | EDDOCDS ---
Physician Documentation [facility] Name: Maricarmen Stern Age: 70 yrs Sex: Female : 1945 Arrival Date: 05/23/2016 Time: 12:13 Bed 8 Private MD: Paulo Villalobos Disposition: 05/23/16 16:27 Hospitalization ordered by Trang Mcgee for Inpatient Admission. Preliminary diagnosis are Chronic obstructive pulmonary disease with (acute) exacerbation, Influenza due to identified novel influenza A virus. - [facility] - Status is Inpatient Admission. andrew - Condition is Stable. - Problem is an acute exacerbation. - Symptoms are unchanged. Historical: - Allergies: CEPHALOSPORINS (Rash); Chlorpromazine (Rash); Doxycycline (Rash); Latex (Rash); loratadine (Rash); Methadone (Rash); Morphine (Rash); PENICILLINS (Rash); PENTAZOCINE (Rash); - Home Meds: 1. Amitiza 24 mcg oral cap 2 times per day 2. baclofen 20 mg Oral tab twice a day 3. bisoprolol fumarate 5 mg oral tab 0.5 tab once daily 4. Colace 100 mg oral cap 1 cap once daily 5. fluoxetine 20 mg Oral cap 1 cap once daily 6. Lantus 100 unit/mL Sub-Q crtg 78 unit twice a day 7. metoclopramide HCl 10 mg Oral tab 1 tab once daily 8. Novolog 100 unit/mL Sub-Q soln 16 unit before meals 9. omeprazole 20 mg Oral cpDR once daily 10. potassium chloride 10 mEq Oral cpER 1 cap once daily 11. pregabalin 50 mg Oral cap 1 cap 3 times per day 12. promethazine 25 mg Oral tab 1 tab once daily 13. senna 8.6 mg oral tab 2 tabs once daily 14. spironolactone 25 mg Oral tab 1 tab once daily 15. sucralfate 1 gram Oral tab 1 tab 2 times per day 16. torsemide 50 mg oral tab twice a day 17. Vitamin D Oral 1,000 unit daily 18. Zofran (as hydrochloride) 4 mg Oral tab daily - PMHx: Asthma; blood clot in left leg; CHF; Diabetes - IDDM: controlled; Hypertension; Migraines; paralyzed diaphragm; retenoiditis; Seizures; Sleep Apnea w/ CPAP; - PSHx: [place] Filter Placement; right knee surgery; right hip surgery; lung surgery; Hysterectomy; back surgery; left ankle surgery; - Social history: Smoking status: Patient states was never smoker of tobacco. No barriers to communication noted, The patient speaks fluent Romanian, Speaks appropriately for age. - Family history: Not pertinent. - : The pt / caregiver states he / she is not on anticoagulants. Home medication list is obtained from the patient, [employer] import data. - Exposure Risk Screening:: None identified. Vital Signs: 05/23 12:14 BP 143 / 71; Pulse 86; Resp 18 S; Temp 102.4(O); Pulse Ox 97% on 2 lpm NC; Weight gr2 123.38 kg / 272.01 lbs (R); Height 5 ft. 7 in. (170.18 cm) (R); Pain 4/10; 12:29 Pulse 94 MON; Pulse Ox 91% ; jo3 12:35 BP 120 / 68; Pulse 105; Resp 28; Temp 102.3(O); Pulse Ox 89% on R/A; Pain 0/10; bcj 12:39 Pulse 86 MON; Pulse Ox 96% ; jo3 12:50 Pulse 86 MON; Pulse Ox 95% ; jo3 13:00 Pulse 84 MON; Pulse Ox 95% ; jo3 13:15 Pulse 86 MON; Pulse Ox 97% ; jo3 14:26 BP 143 / 64 (auto/); jo3 14:26 Pulse 94 MON; Pulse Ox 89% ; jo3 15:00 BP 147 / 64 (auto/); jo3 15:00 Pulse 92 MON; Pulse Ox 92% ; jo3 15:04 Temp 101.8(O); jo3 15:15 BP 147 / 67 (auto/); jo3 15:15 Pulse 92 MON; Pulse Ox 93% ; jo3 15:30 BP 147 / 64 (auto/); jo3 15:30 Pulse 92 MON; Pulse Ox 93% ; jo3 15:45 BP 160 / 65 (auto/); jo3 15:45 Pulse 92 MON; Pulse Ox 90% ; jo3 16:00 BP 134 / 61 (auto/); jo3 16:00 Pulse 92 MON; Pulse Ox 92% ; jo3 16:15 BP 119 / 53 (auto/); jo3 16:15 Pulse 92 MON; Pulse Ox 92% ; jo3 16:30 BP 99 / 51 (auto/); jo3 16:30 Pulse 94 MON; Pulse Ox 97% ; jo3 17:00 BP 120 / 66 (auto/); jo3 17:00 Pulse 98 MON; Pulse Ox 94% ; jo3 17:25 BP 121 / 67 (auto/); jo3 17:25 Pulse 100 MON; jo3 17:45 BP 119 / 58 (auto/); jo3 17:45 Pulse 94 MON; Resp 22; Pulse Ox 92% ; jo3 18:12 Pulse 96 MON; Pulse Ox 91% ; ko2 18:19 Temp 101.3(TE); jlm 19:09 BP 154 / 118 (auto/); ko2 20:07 Pulse 88 MON; Pulse Ox 95% ; ko2 20:09 BP 105 / 54 (auto/); ko2 20:42 BP 102 / 63; Pulse 89; Resp 20; Temp 97.3(O); Pulse Ox 92% on 3 lpm NC; Pain 8/10; andrea 12:14 Body Mass Index 42.60 (123.38 kg, 170.18 cm) gr2 MDM: 12:23 -Blood Culture (Adults Only), peripheral from different site, or from device/port/PICC le etc. if present ordered. 12:23 Call Respiratory ordered. le 12:23 Well Service Pump Equipment Operator/Pulse Ox/q 15 min VS ordered. le 12:23 Oxygen at 4L/Min NC or Home dosage ordered. le 12:23 Acetaminophen Tablet 650 mg PO once ordered. le 12:36 ARTERIAL BLOOD GAS Ordered. EDMS 12:36 C REACTIVE PROTEIN QUANTITATIV Ordered. EDMS 12:36 CBC WITH DIFFERENTIAL Ordered. EDMS 12:36 LACTIC ACID LEVEL, LACTATE Ordered. EDMS 12:36 LIVER PROFILE Ordered. EDMS 12:36 BASIC METABOLIC PROFILE Ordered. EDMS 12:37 URINALYSIS Ordered. EDMS 12:37 BLOOD CULTURES Ordered. EDMS 12:37 BLOOD CULTURES Ordered. EDMS 12:37 URINE CULTURE Ordered. EDMS 12:37 Chest, 2 view PA, Lat Ordered. EDMS 12:38 ECG WITH READING ER PHYS ordered. EDMS 12:39 Call Respiratory complete. ar3 12:39 -Blood Culture (Adults Only), peripheral from different site, or from device/port/PICC ar3 etc. if present complete. 12:43 Misc Glue Cook Order ordered. le 12:46 RESPIRATORY PANEL Ordered. EDMS 12:58 [facility] Glue Cook Order complete. ar3 13:06 BED REQUEST+ADM ordered. EDMS 13:10 Albuterol 5 mg Nebulizer once ordered. le 13:10 Call Respiratory ordered. le 13:18 Venous Blood Gas (large pea green tube on ice) Ordered. EDMS 13:26 Call Respiratory complete. kr3 13:28 Solu-MEDROL 125 mg IVP once ordered. le 13:28 Magnesium Sulfate in D5W 2 grams IV at 2000 mg/hr once ordered. le 13:42 NS 0.9% 1000 ml IV at bolus once ordered. le 13:50 C REACTIVE PROTEIN QUANTITATIV Reviewed. le 13:50 CBC WITH DIFFERENTIAL Reviewed. le 13:50 LACTIC ACID LEVEL, LACTATE Reviewed. le 13:50 LIVER PROFILE Reviewed. le 13:50 BASIC METABOLIC PROFILE Reviewed. le 14:31 Venous Blood Gas (large pea green tube on ice) Reviewed. le 14:31 Chest, 2 view PA, Lat Reviewed. le 14:54 levofloxacin 750 mg IVPB once over 90 mins ordered. le 15:02 Ibuprofen 600 mg PO once ordered. le 16:01 Financial registration complete. [facility] 16:13 [facility] [place] Payment Agreement was scanned into [employer] and attached to record. [facility] 16:16 RESPIRATORY PANEL Reviewed. le 16:16 [facility]. Nursing Order ordered. le 16:18 Oseltamivir 75 mg PO once ordered. le 16:19 Albuterol-Ipratropium 3 ml Inhalation once ordered. le 17:03 CONSISTENT CARBOHYDRATE+DIET ordered. EDMS 17:03 Admission / Observation Status ordered. EDMS 17:03 CONSISTENT CARBOHYDRATES ordered. EDMS 17:16 LACTIC ACID LEVEL, LACTATE Ordered. EDMS 19:32 COMPLETE BLOOD COUNT Ordered. EDMS 19:32 BASIC METABOLIC PROFILE Ordered. EDMS 02 12:31 T-Sheet-- Draft Copy was scanned into [employer] and attached to record. gb 12:31 ECG/EKG was scanned into [employer] and attached to record. gb Administered Medications: 05/23 12:32 Drug: Acetaminophen 650 mg [acetaminophen 325 mg tablet (2 tabs)] Route: PO; kr3 13:47 Drug: Albuterol 5 mg [albuterol sulfate 2.5 mg/0.5 mL solution for nebulization (1 mL)] kt1 Route: Nebulizer; 13:50 Drug: Solu-MEDROL 125 mg [Solu-Medrol 500 mg intravenous solution (125 mg)] Route: IVP; jo3 Site: Implantable Access Device; 13:50 Drug: Magnesium Sulfate in D5W 2 grams [magnesium sulfate 1 gram/100 mL in dextrose 5 % jo3 intravenous piggyback] Route: IV; Rate: 2000 mg/hr; Site: Implantable Access Device; 16:18 Follow up: IV Status: Completed infusion kc3 14:35 Drug: NS 0.9% 1000 ml Route: IV; Rate: bolus; Site: Implantable Access Device; dsf 15:46 Drug: levofloxacin 750 mg [levofloxacin 250 mg/50 mL in 5 % dextrose intravenous kc3 piggyback] Route: IVPB; Infused Over: 90 mins; Site: right forearm; 15:46 Drug: Ibuprofen 600 mg [ibuprofen 600 mg tablet (1 tabs)] Route: PO; kc3 16:35 Drug: Albuterol-Ipratropium 3 ml [ipratropium-albuterol 0.5 mg-3 mg(2.5 mg base)/3 mL lb nebulization soln (3 mL)] Route: Inhalation; 16:43 Drug: Oseltamivir 75 mg [oseltamivir 75 mg capsule (1 caps)] Route: PO; kc3 Signatures: Dispatcher [employer] EDJordin Elias RN RN bcj Newman, Jill New RN Arelis Lopez, Reg Crystal GaonaRN RN joaquin3 Zoya ManzoRN GURMEET vanessa3 Sita No, VENEER TAPING MACHINE OFFBEARER VENEER TAPING MACHINE OFFBEARER Nancy Sutton, LAW CLERK LAW CLERK ar3 Kacy Westfall Lindsay lb [place], Kristin kt1 Makayla Shah RN dsf [place] Up RN kc3 The chart was reviewed and I authenticate all verbal orders and agree with the evaluation and treatment provided.Corrections: (The following items were deleted from the chart) 13:06 13:02 Chest, 2 view (PA\E\Lat)+XR ordered. EDMS EDMS 13: 13:02 ARTERIAL BLOOD GAS+LAB ordered. EDMS EDMS 13: 13:02 C REACTIVE PROTEIN QUANTITATIV+LAB ordered. EDMS EDMS 13: 13:02 CBC WITH DIFFERENTIAL+LAB ordered. EDMS EDMS : 13:02 LACTIC ACID LEVEL, LACTATE+LAB ordered. EDMS EDMS : 13:02 LIVER PROFILE+LAB ordered. EDMS EDMS : 13:02 BASIC METABOLIC PROFILE+LAB ordered. EDMS EDMS : 13:02 URINALYSIS+LAB ordered. EDMS EDMS 13: 13:02 -BLOOD CULTURES+GORDY ordered. EDMS EDMS 13: 13:02 URINE CULTURE+GORDY ordered. EDMS EDMS 13:45 13:02 ECG WITH READING ER PHYS+CARDIAG ordered. EDMS EDMS Attachments: 16:13 [facility] Payment Agreement [facility] 05/24 12:31 T-Sheet-- Draft Copy 12:31 ECG/EKG Chart Complete MTDD
[2016-05-26] MEDS: IPRATROPIUM 0.5MG/ALBUTEROL 2.5MG INH SOL UD 3ML (DUONEB)(J7620) NEB SCH ×5 (03:53→20:44)
[2016-05-26] MEDS: HEPARIN SOD (PORCINE) 5000 UNITS/ML VIAL SC SCH ×3 (05:08→22:02)
[2016-05-26] MEDS: SODIUM CHLORIDE 0.9% INJ 10 ML SYR IV PRN (05:23)
[2016-05-26 06:00] VITALS: BP 141/72
[2016-05-26 06:02] LABS: MEAN CORPUSCULAR HEMOGLOBIN 25.7 pg (27.0-33.0); MEAN CORPUSCULAR HGB CONC 28.8 g/dl (32.0-36.5); MEAN CORPUSCULAR VOLUME 89.1 fl (80.0-96.0); RED CELL DISTRIBUTION WIDTH 18.8 % (11.5-14.5); WHITE BLOOD COUNT 3.6 K/mm3 (4.0-10.0)
[2016-05-26 06:08] LABS: CALCIUM LEVEL 8.3 MG/DL (8.8-10.2); CREATININE FOR GFR 2.18 MG/DL (0.55-1.02); GLOMERULAR FILTRATION RATE 23.7 (>39); POTASSIUM SERUM 5.1 MEQ/L (3.5-5.1)
[2016-05-26] MEDS ORDERED: NS 1,000 ML IV ONE (08:00)
[2016-05-26 08:41] LABS: ABG BASE EXCESS 6.4 (-2.0-2.0); ABG HCO3 33.5 MEQ/L (22.0-26.0); ABG PARTIAL PRESSURE O2 74.5 mmHg (75.0-100.0); ABG STANDARD HCO3 30.2 MEQ/L (22.0-26.0); ABG TOTAL CO2 35.4 MEQ/L (23.0-31.0); ABG pH (ARTERIAL) 7.356 UNITS (7.350-7.450)
[2016-05-26] MEDS: LACTULOSE 20 GM/30 ML SYRUP UD PO SCH ×2 (08:43→22:01)
[2016-05-26] MEDS: PERCOCET 5MG/325MG TAB PO PRN ×2 (08:44→15:31)
[2016-05-26 08:45] LABS: ABG PARTIAL PRESSURE CO2 61.2 mmHg (35.0-45.0)
[2016-05-26] MEDS: HumaLOG INSULIN (NovoLOG) PER UNIT SC SCH ×4 (08:45→22:01)
[2016-05-26] MEDS: predniSONE 20 MG TAB PO SCH (08:46)
[2016-05-26] MEDS: DOCUSATE SODIUM 100 MG CAP PO SCH ×2 (08:46→22:00)
[2016-05-26] MEDS: LEVEMIR (INSULIN DETEMIR) 1 UNITS/0.01ML SC SCH ×3 (08:46→22:01)
[2016-05-26] MEDS: SENOKOT S TAB PO SCH ×2 (08:46→22:02)
[2016-05-26] MEDS: PROMETHAZINE 25 MG TAB PO SCH ×3 (08:47→17:04)
[2016-05-26] MEDS: FLUoxetine 20 MG CAP PO SCH (08:47)
[2016-05-26] MEDS: ASPIRIN 81 MG ENTERIC TAB PO SCH (08:47)
[2016-05-26] MEDS: METOCLOPRAMIDE 10 MG TAB PO SCH ×3 (08:47→22:02)
[2016-05-26] MEDS: guaiFENesin ER 600 MG TAB PO SCH ×2 (08:47→22:00)
[2016-05-26] MEDS: levETIRAcetam 250MG TABLET (KEPPRA) PO SCH ×4 (08:47→22:02)
[2016-05-26] MEDS: OSELTAMIVIR PHOSPHATE 75 MG CAP (TAMIFLU) PO SCH ×2 (08:47→22:02)
[2016-05-26] MEDS: BACLOFEN 10 MG TAB PO SCH ×2 (08:47→22:00)
[2016-05-26] MEDS: ONDANSETRON 4 MG TAB (S0181) PO SCH (08:47)
[2016-05-26] MEDS: BISOPROLOL FUMARATE 5 MG TAB PO SCH (08:48)
[2016-05-26] MEDS: SUCRALFATE 1 GM TAB PO SCH ×2 (08:48→22:00)
[2016-05-26] MEDS: PREGABALIN 100 MG CAP (LYRICA) PO SCH ×3 (08:48→22:01)
[2016-05-26] MEDS: OMEPRAZOLE 20 MG CAP PO SCH ×2 (08:48→22:01)
[2016-05-26] MEDS: SODIUM CHLORIDE 0.9% INJ 10 ML SYR IV SCH (08:49)
[2016-05-26] MEDS: ACETAMINOPHEN TAB 650MG DOSE (2X325MG) PO PRN (12:46)
[2016-05-26] MEDS: ONDANSETRON 4MG/2ML VIAL (J2405) IV PRN (13:01)
[2016-05-26 14:00] VITALS: BP 132/62
--- NOTE | 2016-05-26 14:05 | IPN ---
DATE OF SERVICE: 05/26/2016 SUBJECTIVE: The patient was seen and examined at the bedside today in the morning. She still complains of some cough and wheezing; however, she reports some improvement as compared with yesterday. The patient got 1 liter of intravenous (IV) fluid yesterday, and I see that the primary team has started her on gentle IV fluid hydration with NS 100 mL an hour. Her diuretic dose was stopped yesterday. The patient's renal function is stable as compared with yesterday. REVIEW OF SYSTEMS: The patient denies any fevers, chills, rigors today morning; however, she did have the fever spikes last night with a maximum temperature (Tmax) of 101.7. She does report some shortness of breath, coughing, and wheezing. She denies any nausea, vomiting, pain abdomen, constipation. The rest of review of systems is negative. OBJECTIVE: VITAL SIGNS: Current temperature (T current) is 99.4 degrees Fahrenheit, maximum temperature (Tmax) is 101.9 degrees Fahrenheit (that was yesterday), blood pressure is 141/72, pulse is 79, respiratory rate of 17, saturating 88% on nasal cannula at 2 liters. INTAKE AND OUTPUT: Urine output was 3.3 liters yesterday and 600 mL so far today since overnight. Weight on the bed scale is 122.8 kg. PHYSICAL EXAMINATION: GENERAL: The patient is awake, alert, oriented times three, laying in the bed, in mild respiratory distress. HEAD AND NECK EXAMINATION: Extraocular muscles intact. Pupils equally round and reactive to light. Mucous membranes are dry. NECK: Supple. There is no jugular venous distention (JVD). CARDIOVASCULAR: S1, S2. Regular rate. No murmur, rub, and gallop. RESPIRATORY: Decreased breath sounds at the bases. Positive expiratory rhonchi all over the lungs. ABDOMEN: Soft. Positive bowel sounds. Nontender. No ascites. No organomegaly. EXTREMITIES: No clubbing or cyanosis. Pulses are 2+. No edema. CENTRAL NERVOUS SYSTEM (TRANSPORTATION AGENT): No focal neurologic deficit, apart from her baseline, weakness of the bilateral lower extremities, and power is around 4/5. LABORATORY REVIEW: CBC showed a WBC of 3.6, hemoglobin 10.3, platelets are 215. Arterial blood gas (ABG) done today morning showed a pH of 7.35, PCO2 61, pO2 74 , bicarbonate 35, oxygen (O2) saturation 94%. BMP showed sodium 140, potassium 5.1, chloride 97, bicarbonate 37, BUN is 36, creatinine is 2.18, calcium is 8.3, C-reactive protein is 6.06. MICROBIOLOGY: Urine culture done on 05/24/2016 shows enterococcus faecium about 20,000 colonies, which is sensitive to Levaquin, vancomycin, and Zyvox. CURRENT MEDICATIONS: The patient's medications were all reviewed by me. Significant change in the medication include intravenous (IV) fluids hydration at 100 mL an hour for 1 liter. She has been started on vancomycin 1 gram IV every 24 hours. Her insulin Levemir dose has been increased to 70 units subcutaneous three times a day. There is no change in the medications today as compared with yesterday. ASSESSMENT: 70-year-old female with past medical history of chronic kidney disease stage III, chronic diastolic congestive heart failure, chronic obstructive pulmonary disease (COPD), diabetes, and multiple other comorbidities , admitted this time with respiratory distress secondary to influenza pneumonia. Nephrology service following the patient for management of acute kidney injury superimposed on chronic kidney disease stage III. PLAN: 1. Acute kidney injury superimposed on chronic kidney disease stage III. The patient's baseline creatinine is around 1.1. When the patient presented, she was dehydrated, volume depleted. Her diuretics were stopped yesterday. The patient was given 1 liter of IV fluids yesterday. Her creatinine has stabilized now but is not improving yet. I agree with starting the IV fluid hydration because clinically the patient still looks dry. Continue to monitor intake and output. 2. Enterococcus faecium urinary tract infection (UTI). The patient has been started on IV vancomycin, which covers enterococcus. Continue to monitor vancomycin level and aim for level between 15-20. 3. Chronic diastolic congestive heart failure. The patient was initially on diuretics, but because of her dehydration, diuretics have been held. Continue the gentle IV fluid hydration at this time. No signs of fluid overload. 4. Influenza pneumonia. The patient is currently on Tamiflu 75 mg by mouth twice a day. She is also on prednisone 20 mg by mouth daily, and she is getting nebulizations, as well. The rest of the management is as per primary team. [facility]
--- NOTE | 2016-05-26 14:27 | IPNPDOC ---
Text Note Date of Service The patient was seen on 05/26/16. NOTE Subjective: Patient states her dyspnea is worse this am. Has trouble coughing up her sputum. No chest pain/palpations. Objective: Vitals: (see below) General: No acute distress, laying comfortably in bed. HEENT: Moist mucous membranes. Neck: No JVD or lymphadenopathy Cardiac: RRR, No murmurs Pulm: Coarse crackles at the bases b/l. Mild exp wheezing. Rhonchi bilaterally. Abd: NT/ND + BS Ext: Trace edema bilateral lower extremity. No cyanosis Labs (see below) Images: CT Chest 05/25/16 Impression: Bibasilar atelectatic changes, similar to the prior CT. Calcified granulomas on the right, unchanged. There is an indwelling central venous catheter with the tip in the right atrium in satisfactory location, unchanged. Sequela of prior fractures versus foreign bodies posteriorly on the right. Foreign bodies posteriorly on the left. No significant interval change from the prior studies. Echo 04/2015 2D COMMENTS: 1. Technically limited study due to poor acoustic window. 2. The left ventricular size is normal with a normal left ventricular wall thickness. Left ventricular systolic function is normal with an estimated LV systolic ejection fraction of 60% to 65%. 3. Mildly enlarged left atrium. The right atrium and the right ventricle appear to be normal in limited views. 4. Normal aortic root. 5. No pericardial effusion noted in limited views. 6. Minimally calcified aortic valve, leaflet excursion was not well visualized. The mitral valve leaflets as well as the tricuspid valve leaflets appeared to be normal in limited views. 7. The inferior vena cava was not visualized. DOPPLER: It detects trace mitral regurgitation and mild tricuspid regurgitation. The calculated pulmonary artery systolic pressure varies between 30 to 40 mmHg. Abnormal relaxation pattern was noted across the mitral valve annulus, left ventricular end-diastolic pressure might be elevated. IMPRESSION: 1. Technically limited study due to poor acoustic window. 2. Normal global left ventricular systolic function. There are features of left ventricular diastolic dysfunction. 3. Trace mitral regurgitation with a mildly enlarged left atrium. The dilated left atrium may be secondary to underlying left ventricular diastolic dysfunction because there is no significant mitral regurgitation. 4. Trace to mild tricuspid regurgitation with mild pulmonary hypertension. Assessment/Plan 1. Acute respiratory distress secondary to influenza. Fevers resolved. Sputum cultures pending. Started on vancomycin/Zosyn pending cultures. Continue Tamiflu. Droplet precautions. Although these fevers are likely secondary to the influenza, will need to repeat blood cultures, and if positive, will need to remove the central line. Started today on nebulizers, steroids. CT of the chest with no consolidation. CRP trending down. 2. Acute Decompensated Diastolic HF- IVF have been d/c. On Lasix. Feeling much better with diuresis this afternoon. 3. Acute kidney injury on chronic kidney disease, baseline creatinine of 1.1. It appears that patient is very dry. Appreciate nephrology input. Diuretics have been discontinued. Patient is being rehydrated. 4. Enteroccous Faecalis UTI - on Vanco 5 History of arachnoiditis- stable 6. Musculoskeletal chest pain, resolved 7.Diabetes mellitus - Levemir dose increased to 90 TID 8. History of DVT status post IVC 9. MATT on CPAP; Respiratory Acidosis. DVT prophy: Heparin subcutaneous VS,Fishbone, I+O VS, Fishbone, I+O Laboratory Tests 05/26/16 05:22 Calcium Level 8.3 L, Red Blood Count 4.02, Mean Corpuscular Volume 89.1, Mean Corpuscular Hemoglobin 25.7 L, Mean Corpuscular Hemoglobin Concent 28.8 L, Red Cell Distribution Width 18.8 H Vital Signs Date Time Temp Pulse Resp B/P Pulse Ox O2 Delivery O2 Flow Rate FiO2 05/26/16 09:15 20 05/26/16 08:58 Nasal Cannula 2.0 05/26/16 08:48 79 141/72 05/26/16 06:00 99.4 88 I&O- Last 24 Hours up to 6 AM 05/26/16 06:00 Intake Total 3385 ml Output Total 2075 ml Balance 1310 ml KEARA MCGHEE MD May 26, 2016 14:27
[2016-05-26] MEDS: VANCOMYCIN HCL 1,000 MG, VIAL MATE ADAPTER 1 EACH in D5W 250 ML IV SCH (17:03)
[2016-05-26 22:00] VITALS: BP 142/80
[2016-05-27] MEDS: IPRATROPIUM 0.5MG/ALBUTEROL 2.5MG INH SOL UD 3ML (DUONEB)(J7620) NEB SCH ×7 (00:28→23:22)
[2016-05-27] MEDS: SODIUM CHLORIDE 0.9% INJ 10 ML SYR IV PRN ×3 (05:25→17:24)
[2016-05-27] MEDS: HEPARIN SOD (PORCINE) 5000 UNITS/ML VIAL SC SCH ×3 (05:25→21:45)
[2016-05-27 06:00] VITALS: BP 133/69
[2016-05-27 06:14] LABS: MEAN CORPUSCULAR HEMOGLOBIN 25.9 pg (27.0-33.0); MEAN CORPUSCULAR HGB CONC 28.9 g/dl (32.0-36.5); MEAN CORPUSCULAR VOLUME 89.4 fl (80.0-96.0); RED CELL DISTRIBUTION WIDTH 18.8 % (11.5-14.5); WHITE BLOOD COUNT 4.1 K/mm3 (4.0-10.0)
[2016-05-27 06:17] LABS: CALCIUM LEVEL 8.5 MG/DL (8.8-10.2); CREATININE FOR GFR 1.92 MG/DL (0.55-1.02); GLOMERULAR FILTRATION RATE 27.4 (>39); POTASSIUM SERUM 4.5 MEQ/L (3.5-5.1)
[2016-05-27] MEDS: SODIUM CHLORIDE 0.9% INJ 10 ML SYR IV SCH (09:00)
[2016-05-27] MEDS: LACTULOSE 20 GM/30 ML SYRUP UD PO SCH ×2 (09:15→21:44)
[2016-05-27] MEDS: PROMETHAZINE 25 MG TAB PO SCH ×3 (09:16→17:23)
[2016-05-27] MEDS: SUCRALFATE 1 GM TAB PO SCH ×2 (09:16→21:44)
[2016-05-27] MEDS: levETIRAcetam 250MG TABLET (KEPPRA) PO SCH ×4 (09:16→21:44)
[2016-05-27] MEDS: guaiFENesin ER 600 MG TAB PO SCH ×2 (09:16→21:44)
[2016-05-27] MEDS: FLUoxetine 20 MG CAP PO SCH (09:16)
[2016-05-27] MEDS: BACLOFEN 10 MG TAB PO SCH ×2 (09:16→21:44)
[2016-05-27] MEDS: DOCUSATE SODIUM 100 MG CAP PO SCH ×2 (09:17→21:44)
[2016-05-27] MEDS: SENOKOT S TAB PO SCH ×2 (09:17→21:44)
[2016-05-27] MEDS: OSELTAMIVIR PHOSPHATE 75 MG CAP (TAMIFLU) PO SCH ×2 (09:17→21:44)
[2016-05-27] MEDS: METOCLOPRAMIDE 10 MG TAB PO SCH ×3 (09:17→21:44)
[2016-05-27] MEDS: PERCOCET 5MG/325MG TAB PO PRN (09:17)
[2016-05-27] MEDS: OMEPRAZOLE 20 MG CAP PO SCH ×2 (09:17→21:44)
[2016-05-27] MEDS: BISOPROLOL FUMARATE 5 MG TAB PO SCH (09:18)
[2016-05-27] MEDS: ASPIRIN 81 MG ENTERIC TAB PO SCH (09:18)
[2016-05-27] MEDS: PREGABALIN 100 MG CAP (LYRICA) PO SCH ×3 (09:18→21:44)
[2016-05-27] MEDS: HumaLOG INSULIN (NovoLOG) PER UNIT SC SCH ×4 (09:19→21:45)
[2016-05-27] MEDS: LEVEMIR (INSULIN DETEMIR) 1 UNITS/0.01ML SC SCH ×3 (09:20→21:45)
[2016-05-27] MEDS ORDERED: FUROSEMIDE 40 MG/4 ML VIAL (J1940) IV ONE (11:00)
--- NOTE | 2016-05-27 11:30 | REP ---
Clinical: Shortness of breath. Comparison: 05/23/2016. Findings: Stable cardiomegaly. Findings suggest pulmonary vascular congestion and interstitial edema. Layering left effusion cannot be excluded. No pneumothorax. [id number] with tip in the SVC/right atrium. Impression: Cardiomegaly with findings to suggest pulmonary vascular congestion and interstitial edema. Cannot exclude layering left effusion. Signed by Ramos Chaparro MD 05/27/2016 11:22 A
[2016-05-27] MEDS: ONDANSETRON 4MG/2ML VIAL (J2405) IV PRN ×2 (12:56→21:58)
--- NOTE | 2016-05-27 13:18 | IPN ---
DATE: 05/27/2016 SUBJECTIVE: Patient was seen and examined at the bedside today in the morning. She reports shortness of breath and wheezing and is slightly worse than yesterday, however her kidney function is better as compared with yesterday. Her creatinine came down from 2.18 to 1.92. REVIEW OF SYSTEMS: Patient denies any fever, chills, rigors, headache, nausea, or vomiting. She denies any chest pain, but she does report persistent shortness of breath and wheezing. She denies any pain in abdomen, constipation, or diarrhea. Rest of review of systems is negative. OBJECTIVE: VITAL SIGNS: Temperature 96.9 degrees Fahrenheit, blood pressure 133/69, pulse 72, respiratory rate 19, saturating at 91% on nasal cannula. Intake and output: Urine output recorded is 1500 mL yesterday, 925 mL so far today since overnight. Bed scale weight is not available. PHYSICAL EXAMINATION: GENERAL: Patient is awake, alert, oriented times three, laying in bed in moderate respiratory distress. HEAD and NECK EXAM: Extraocular muscles intact. Pupils equally round and reactive to light. Mucous membranes are moist. Neck is supple, jugular venous distention (JVD) could not be appreciated because of the patient's body habitus. CARDIOVASCULAR: S1, S2, regular rate, no murmur, rub, or gallop. RESPIRATORY: Decreased breath sounds at the bases, bilateral active wheezing and positive bilateral expiratory rhonchi all over the lungs. ABDOMEN: Soft, positive bowel sounds, nontender, no ascites, no organomegaly. EXTREMITIES: No clubbing or cyanosis, pulses are 2+, no edema of the extremities. CENTRAL NERVOUS SYSTEM (R&D ENGINEER): Because of her arachnoiditis, patient has weakness of the bilateral lower extremities. Power is 4/5 in the bilateral lower extremities. LABORATORY REVIEW: CBC showed WBC 4.1, hemoglobin 10.5, platelets 202. BMP showed sodium 141, potassium 4.5, chloride 98, bicarbonate 34, BUN 27, creatinine 1.9, calcium 8.5, C-reactive protein 2.5. IMAGING: Stat portable chest xray done today showed cardiomegaly with pulmonary vascular congestion and interstitial edema. CURRENT MEDICATIONS: Patient's medications were all reviewed by me. She is currently on intravenous (IV) vancomycin and I gave her a stat dose of Lasix 40 mg IV times one dose. There is no other change in the medications at this time. I see that her prednisone has also been stopped. ASSESSMENT: 70-year-old female with past medical history of chronic kidney disease stage III, chronic diastolic congestive heart failure, chronic obstructive pulmonary disease (COPD), diabetes, and multiple other comorbidities, admitted at this time because of respiratory distress secondary to influenza pneumonia. Nephrology service following the patient for management of acute kidney injury superimposed on chronic kidney disease. PLAN: 1. Acute kidney injury superimposed on chronic kidney disease stage III. Her baseline creatinine is around 1.1. When patient presented to the emergency room (ER) she was volume depleted and dehydrated. She was initially hydrated with gentle IV fluid hydration. Her creatinine is significantly better as compared with yesterday but her shortness of breath is worse. IV fluids were already stopped yesterday. I will have to give her a dose of Lasix. 2. Worsening respiratory distress secondary to decompensated diastolic congestive heart failure. Patient was one diuretics initially that were stopped because of acute kidney injury. However, given the clinical finding of fluid overload and chest xray finding of pulmonary edema, I have given her a dose of Lasix 40 mg IV. If she does not respond, she might be given another dose. 3. Enterococcus faecium urinary tract infection (UTI). Patient has been started on vancomycin. Check the vancomycin level and try to aim for a level between 15-20. 4. Influenza pneumonia. Patient is currently on Tamiflu. 5. Chronic obstructive pulmonary disease (COPD). Continue the nebulizations at this time. Steroids is as per primary team. The plan of care was discussed with the patient's registered nurse (RN) and with the hospitalist team as well.
[2016-05-27 14:00] VITALS: BP 168/80
[2016-05-27] MEDS: VANCOMYCIN HCL 1,000 MG, VIAL MATE ADAPTER 1 EACH in D5W 250 ML IV SCH (17:25)
[2016-05-27 22:00] VITALS: BP 158/67
[2016-05-28] VITALS: BP 164/72
[2016-05-28] MEDS ORDERED: GI COCKTAIL 50ML BTL(HYOSCYAMINE/MAALOX/LIDOCAINE VISCOUS)(1:3:1) PO PRN (00:30)
[2016-05-28] MEDS ORDERED: GI COCKTAIL 50ML BTL(HYOSCYAMINE/MAALOX/LIDOCAINE VISCOUS)(1:3:1) PO ONE (00:30)
[2016-05-28] MEDS: IPRATROPIUM 0.5MG/ALBUTEROL 2.5MG INH SOL UD 3ML (DUONEB)(J7620) NEB SCH ×6 (03:22→23:31)
[2016-05-28] MEDS: ONDANSETRON 4MG/2ML VIAL (J2405) IV PRN (05:25)
[2016-05-28] MEDS: HEPARIN SOD (PORCINE) 5000 UNITS/ML VIAL SC SCH ×3 (05:25→22:08)
[2016-05-28] MEDS: SODIUM CHLORIDE 0.9% INJ 10 ML SYR IV PRN ×2 (05:26→20:46)
[2016-05-28 06:00] VITALS: BP 132/99
[2016-05-28 06:01] LABS: MEAN CORPUSCULAR HEMOGLOBIN 25.3 pg (27.0-33.0); MEAN CORPUSCULAR HGB CONC 28.9 g/dl (32.0-36.5); MEAN CORPUSCULAR VOLUME 87.6 fl (80.0-96.0); RED CELL DISTRIBUTION WIDTH 18.7 % (11.5-14.5); WHITE BLOOD COUNT 4.5 K/mm3 (4.0-10.0)
[2016-05-28 07:08] LABS: CREATININE FOR GFR 1.54 MG/DL (0.55-1.02); GLOMERULAR FILTRATION RATE 35.4 (>39); POTASSIUM SERUM 4.3 MEQ/L (3.5-5.1)
[2016-05-28] MEDS: HumaLOG INSULIN (NovoLOG) PER UNIT SC SCH ×4 (08:34→21:00)
[2016-05-28] MEDS: levETIRAcetam 250MG TABLET (KEPPRA) PO SCH ×4 (08:35→22:06)
[2016-05-28] MEDS: LEVEMIR (INSULIN DETEMIR) 1 UNITS/0.01ML SC SCH ×3 (08:35→22:08)
[2016-05-28] MEDS: BACLOFEN 10 MG TAB PO SCH ×2 (08:35→22:07)
[2016-05-28] MEDS: PROMETHAZINE 25 MG TAB PO SCH ×3 (08:35→17:38)
[2016-05-28] MEDS: SENOKOT S TAB PO SCH ×2 (08:35→22:06)
[2016-05-28] MEDS: METOCLOPRAMIDE 10 MG TAB PO SCH ×3 (08:35→22:07)
[2016-05-28] MEDS: LACTULOSE 20 GM/30 ML SYRUP UD PO SCH ×2 (08:36→22:06)
[2016-05-28] MEDS: OMEPRAZOLE 20 MG CAP PO SCH ×2 (08:36→22:06)
[2016-05-28] MEDS: PREGABALIN 100 MG CAP (LYRICA) PO SCH ×3 (08:36→22:06)
[2016-05-28] MEDS: ASPIRIN 81 MG ENTERIC TAB PO SCH (08:36)
[2016-05-28] MEDS: OSELTAMIVIR PHOSPHATE 75 MG CAP (TAMIFLU) PO SCH ×2 (08:36→22:07)
[2016-05-28] MEDS: SUCRALFATE 1 GM TAB PO SCH ×2 (08:36→22:07)
[2016-05-28] MEDS: DOCUSATE SODIUM 100 MG CAP PO SCH ×2 (08:36→22:07)
[2016-05-28] MEDS: guaiFENesin ER 600 MG TAB PO SCH ×2 (08:36→22:07)
[2016-05-28] MEDS: BISOPROLOL FUMARATE 5 MG TAB PO SCH (08:36)
[2016-05-28] MEDS: FLUoxetine 20 MG CAP PO SCH (08:36)
[2016-05-28] MEDS: SODIUM CHLORIDE 0.9% INJ 10 ML SYR IV SCH (08:38)
[2016-05-28] MEDS ORDERED: predniSONE 20 MG TAB PO SCH (09:00)
[2016-05-28] MEDS: VANCOMYCIN HCL 1,000 MG, VIAL MATE ADAPTER 1 EACH in D5W 250 ML IV SCH (10:27)
[2016-05-28] MEDS: PERCOCET 5MG/325MG TAB PO PRN (10:31)
[2016-05-28] MEDS ORDERED: FUROSEMIDE 40 MG/4 ML VIAL (J1940) IV ONE ×2 (11:00)
--- NOTE | 2016-05-28 12:09 | REP ---
CHEST, ONE VIEW: HISTORY: Shortness of breath. COMPARISON: 05/27/2016. An increase in interstitial markings is present in the lungs. Linear density is present in the right lower lobe consistent with atelectasis. The cardiac silhouette is enlarged. The pulmonary vasculature is prominent. An Dmsqdr-b-lsob catheter is present in the superior vena cava. IMPRESSION: 1. Interstitial edema, unchanged compared to the previous study. 2. Right lower lobe atelectasis. 3. Cardiomegaly. Signed by Vinnie Wade MD 05/28/2016 12:10 P
[2016-05-28 12:16] LABS: ABG BASE EXCESS 5.4 (-2.0-2.0); ABG HCO3 33.2 MEQ/L (22.0-26.0); ABG PARTIAL PRESSURE O2 73.1 mmHg (75.0-100.0); ABG STANDARD HCO3 29.3 MEQ/L (22.0-26.0); ABG TOTAL CO2 35.2 MEQ/L (23.0-31.0); ABG pH (ARTERIAL) 7.312 UNITS (7.350-7.450)
[2016-05-28 12:18] LABS: ABG PARTIAL PRESSURE CO2 67.1 mmHg (35.0-45.0)
--- NOTE | 2016-05-28 12:45 | IPN ---
DATE: 05/28/2016 SUBJECTIVE: Patient was seen and examined at the bedside today in the morning. She continues to be in respiratory distress. Patient was in respiratory distress. X-ray was done yesterday, which showed fluid overload. She was given a dose of Lasix 40 mg IV yesterday. She does report mild improvement in her symptom with that dose of Lasix, and she continues to wheeze at this time. REVIEW OF SYSTEMS: Patient denies any fever, chills, rigors, headache, nausea, vomiting, chest pain. She does report shortness of breath, active wheezing. She denies any pain in abdomen, constipation or diarrhea. Rest of review of systems is negative. OBJECTIVE: VITAL SIGNS: Temperature is 97.3 degrees Fahrenheit, blood pressure is 132/99, pulse is 77, respiratory rate of 17, saturating 95% on nasal cannula at 2 liters. INTAKE AND OUTPUT: Urine output recorded as 3.5 liters yesterday, 1375 mL so far today since overnight. Weight on the bed scale is 124 kg. Patient is 2 liters negative yesterday, 800 mL negative so far today since overnight. PHYSICAL EXAMINATION: GENERAL: Patient is awake, alert, oriented times three, laying in the bed in moderate respiratory distress. HEAD and NECK EXAM: Extraocular muscles intact. Pupils equally round and reactive to light. Mucous membranes are dry. Neck is supple. I could not appreciate the jugular venous distention (JVD) because of patient's body habitus. CARDIOVASCULAR: S1, S2. Regular rate. No murmur, rub or gallop. RESPIRATORY: Decreased breath sounds at the bases and bilateral active wheezing and rhonchi heard all over the lungs, especially at the bases. ABDOMEN: Soft, positive bowel sounds, nontender. No ascites. No organomegaly. EXTREMITIES: No clubbing or cyanosis. Pulses are 2+. No edema of bilateral lower extremities. CENTRAL NERVOUS SYSTEM (PROJECT MANAGER FINANCE): Patient has 5/5 power in bilateral upper extremities and around 4/5 power in the lower extremities. She has history of arachnoiditis. LABORATORY REVIEW: CBC showed WBC 4.5, hemoglobin is 10.2, platelets are 212. BMP showed sodium 143, potassium 4.3, chloride 102, bicarbonate 32, BUN 21, creatinine is 1.5, it was 1.9 yesterday, glucose 293, calcium is 9, C-reactive protein is 1.5, BNP is 43. IMAGING: A chest x-ray done today at the bedside, office report is pending, but as read by me I do not see any evidence of pulmonary edema and aeration is better as compared with yesterday. CURRENT MEDICATIONS: Patient's current medications were all reviewed by me. I see the primary team has ordered another dose of Lasix 40 mg IV and she has been started on thiazine, and she is on Solu-Medrol 60 IV every 12 hours. Oral prednisone has been stopped. There is no other change in the medications today as compared with yesterday. ASSESSMENT: 70-year-old female with past medical history of chronic kidney disease stage III, chronic diastolic congestive heart failure, chronic obstructive pulmonary disease (COPD), diabetes, and multiple other comorbidities, admitted at this time because of respiratory distress secondary to influenza pneumonia. Nephrology service following the patient for management of acute kidney injury superimposed on chronic kidney disease. PLAN: 1. Acute kidney injury superimposed on chronic kidney disease stage III. Patient's baseline creatinine is 1.1. She was given a dose of Lasix yesterday for pulmonary edema. Her creatinine is down to 1.5 today. I see she has received another dose of Lasix by the primary team. Continue to monitor the renal function intake and output. 2. Worsening respiratory distress. Patient got a chest x-ray yesterday, which showed pulmonary congestion. She was given Lasix yesterday and today. However, her brain natriuretic peptide (BNP) is normal. Repeat chest x-ray shows improvement in aeration as compared with yesterday. I will re-evaluate her tomorrow for any need to start diuretics. 3. Influenza pneumonia. Patient is still short of breath, actively wheezing. She has been started on IV Solu-Medrol. Continue nebulization. Rest of the management is as per primary team. She is already on Tamiflu. 4. Enterococcus faecium urinary tract infection (UTI). Patient is on IV vancomycin. Vancomycin level yesterday was 9.6. Dosing of vancomycin is as per pharmacology. The plan of care was discussed with the hospitalist team, Dr. Justo Houser.
[2016-05-28 14:00] VITALS: BP 160/70
--- NOTE | 2016-05-28 14:45 | IPNPDOC ---
Text Note Date of Service The patient was seen on 05/28/16. NOTE Subjective: Patient states her dyspnea is worse this am. Epigastric discomfort and reflux. No palpations. Objective: Vitals: (see below) General: No acute distress, laying comfortably in bed. HEENT: Moist mucous membranes. Neck: No JVD or lymphadenopathy Cardiac: RRR, No murmurs Pulm: Coarse crackles at the bases b/l. B/l exp wheezing. Rhonchi bilaterally. Abd: NT/ND + BS Ext: Trace edema bilateral lower extremity. No cyanosis Labs (see below) Images: CT Chest 05/25/16 Impression: Bibasilar atelectatic changes, similar to the prior CT. Calcified granulomas on the right, unchanged. There is an indwelling central venous catheter with the tip in the right atrium in satisfactory location, unchanged. Sequela of prior fractures versus foreign bodies posteriorly on the right. Foreign bodies posteriorly on the left. No significant interval change from the prior studies. Echo 04/2015 2D COMMENTS: 1. Technically limited study due to poor acoustic window. 2. The left ventricular size is normal with a normal left ventricular wall thickness. Left ventricular systolic function is normal with an estimated LV systolic ejection fraction of 60% to 65%. 3. Mildly enlarged left atrium. The right atrium and the right ventricle appear to be normal in limited views. 4. Normal aortic root. 5. No pericardial effusion noted in limited views. 6. Minimally calcified aortic valve, leaflet excursion was not well visualized. The mitral valve leaflets as well as the tricuspid valve leaflets appeared to be normal in limited views. 7. The inferior vena cava was not visualized. DOPPLER: It detects trace mitral regurgitation and mild tricuspid regurgitation. The calculated pulmonary artery systolic pressure varies between 30 to 40 mmHg. Abnormal relaxation pattern was noted across the mitral valve annulus, left ventricular end-diastolic pressure might be elevated. IMPRESSION: 1. Technically limited study due to poor acoustic window. 2. Normal global left ventricular systolic function. There are features of left ventricular diastolic dysfunction. 3. Trace mitral regurgitation with a mildly enlarged left atrium. The dilated left atrium may be secondary to underlying left ventricular diastolic dysfunction because there is no significant mitral regurgitation. 4. Trace to mild tricuspid regurgitation with mild pulmonary hypertension. Assessment/Plan 1. Acute respiratory distress secondary to influenza. Fevers resolved. Sputum cultures pending. Started on vancomycin/Zosyn pending cultures. Continue Tamiflu. Droplet precautions. Started today on nebulizers, steroids. CT of the chest with no consolidation. CRP trending down. With Acute on chronic respiratory acidosis. Pt is retainging Co2. Discussed case with Dr. Del Cid with recommendations to continue her CPAP during the day, as well as at night. Pt has been started on IV steroids. Insulin has been increased. 2. Acute Decompensated Diastolic HF- IVF have been d/c. On Lasix. 3. Acute kidney injury on chronic kidney disease, baseline creatinine of 1.1. Appreciate nephrology input. Improved. 4. Enteroccous Faecalis UTI - on Vanco 5 History of arachnoiditis- stable 6. Musculoskeletal chest pain, resolved 7.Diabetes mellitus - Levemir dose increased to 100 TID 8. History of DVT status post IVC 9. MATT on CPAP; Respiratory Acidosis. DVT prophy: Heparin subcutaneous VS,Fishbone, I+O VS, Fishbone, I+O Laboratory Tests 05/28/16 05:27 Calcium Level 9.0, Red Blood Count 4.03, Mean Corpuscular Volume 87.6, Mean Corpuscular Hemoglobin 25.3 L, Mean Corpuscular Hemoglobin Concent 28.9 L, Red Cell Distribution Width 18.7 H Vital Signs Date Time Temp Pulse Resp B/P Pulse Ox O2 Delivery O2 Flow Rate FiO2 05/28/16 14:00 96.7 72 18 160/70 91 NIPPV (BIPAP/CPAP) 4.0 I&O- Last 24 Hours up to 6 AM 05/28/16 05:59 Intake Total 1500 ml Output Total 4525 ml Balance -3025 ml KEARA MCGHEE MD May 28, 2016 14:45
--- NOTE | 2016-05-28 17:06 | ECGEPIP ---
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 Electronically Signed On 05-28-2016 16:46:17 EST by Kurtis James
[2016-05-28] MEDS ORDERED: methylPREDNISolone INJ 125 MG/2 ML VIAL (J2930) IV SCH (21:00)
[2016-05-28 22:00] VITALS: BP 145/66
[2016-05-28] MEDS ORDERED: HumaLOG INSULIN (NovoLOG) PER UNIT SC ONE (22:00)
[2016-05-28 22:58] LABS: CALCIUM LEVEL 8.2 MG/DL (8.8-10.2); CREATININE FOR GFR 1.61 MG/DL (0.55-1.02); GLOMERULAR FILTRATION RATE 33.6 (>39)
[2016-05-28 22:59] LABS: POTASSIUM SERUM 5.2 MEQ/L (3.5-5.1)
[2016-05-29] MEDS: PERCOCET 5MG/325MG TAB PO PRN ×2 (00:56→17:12)
[2016-05-29] MEDS: IPRATROPIUM 0.5MG/ALBUTEROL 2.5MG INH SOL UD 3ML (DUONEB)(J7620) NEB SCH ×6 (02:56→23:30)
[2016-05-29] MEDS: SODIUM CHLORIDE 0.9% INJ 10 ML SYR IV PRN ×2 (05:02→23:47)
[2016-05-29] MEDS: HEPARIN SOD (PORCINE) 5000 UNITS/ML VIAL SC SCH ×3 (05:03→21:59)
[2016-05-29 05:27] LABS: MEAN CORPUSCULAR HGB CONC 29.2 g/dl (32.0-36.5); MEAN CORPUSCULAR VOLUME 85.7 fl (80.0-96.0); RED CELL DISTRIBUTION WIDTH 18.1 % (11.5-14.5); WHITE BLOOD COUNT 3.2 K/mm3 (4.0-10.0)
[2016-05-29 05:39] LABS: CALCIUM LEVEL 8.7 MG/DL (8.8-10.2); CREATININE FOR GFR 1.52 MG/DL (0.55-1.02); GLOMERULAR FILTRATION RATE 35.9 (>39); POTASSIUM SERUM 4.7 MEQ/L (3.5-5.1)
[2016-05-29 06:00] VITALS: BP 164/74
[2016-05-29] MEDS ORDERED: HumaLOG INSULIN (NovoLOG) PER UNIT SC ONE (06:00)
[2016-05-29] MEDS: LEVEMIR (INSULIN DETEMIR) 1 UNITS/0.01ML SC SCH ×4 (06:04→22:00)
[2016-05-29] MEDS: HumaLOG INSULIN (NovoLOG) PER UNIT SC SCH ×4 (08:42→22:00)
[2016-05-29] MEDS: OSELTAMIVIR PHOSPHATE 75 MG CAP (TAMIFLU) PO SCH ×2 (08:43→21:59)
[2016-05-29] MEDS: predniSONE 20 MG TAB PO SCH (08:43)
[2016-05-29] MEDS: LACTULOSE 20 GM/30 ML SYRUP UD PO SCH ×2 (08:43→21:57)
[2016-05-29] MEDS: SUCRALFATE 1 GM TAB PO SCH ×2 (08:43→21:59)
[2016-05-29] MEDS: DOCUSATE SODIUM 100 MG CAP PO SCH ×2 (08:43→21:59)
[2016-05-29] MEDS: BISOPROLOL FUMARATE 5 MG TAB PO SCH (08:43)
[2016-05-29] MEDS: METOCLOPRAMIDE 10 MG TAB PO SCH ×3 (08:43→21:59)
[2016-05-29] MEDS: PROMETHAZINE 25 MG TAB PO SCH ×3 (08:44→17:12)
[2016-05-29] MEDS: SENOKOT S TAB PO SCH ×2 (08:44→21:59)
[2016-05-29] MEDS: BACLOFEN 10 MG TAB PO SCH ×2 (08:44→21:59)
[2016-05-29] MEDS: levETIRAcetam 250MG TABLET (KEPPRA) PO SCH ×4 (08:44→21:58)
[2016-05-29] MEDS: guaiFENesin ER 600 MG TAB PO SCH ×2 (08:44→21:58)
[2016-05-29] MEDS: PREGABALIN 100 MG CAP (LYRICA) PO SCH ×3 (08:44→21:59)
[2016-05-29] MEDS: ASPIRIN 81 MG ENTERIC TAB PO SCH (08:44)
[2016-05-29] MEDS: FLUoxetine 20 MG CAP PO SCH (08:44)
[2016-05-29] MEDS: OMEPRAZOLE 20 MG CAP PO SCH ×2 (08:44→21:59)
[2016-05-29] MEDS: SODIUM CHLORIDE 0.9% INJ 10 ML SYR IV SCH (08:45)
[2016-05-29] MEDS: VANCOMYCIN HCL 1,000 MG, VIAL MATE ADAPTER 1 EACH in D5W 250 ML IV SCH (10:19)
--- NOTE | 2016-05-29 11:00 | IPNPDOC ---
Text Note Date of Service The patient was seen on 05/29/16. NOTE Subjective: Dyspnea significantly improved. Epigastric discomfort resolved. No palpations. Objective: Vitals: (see below) General: No acute distress, laying comfortably in bed. HEENT: Dry mucous membranes. Neck: No JVD or lymphadenopathy Cardiac: RRR, No murmurs Pulm: Coarse crackles at the bases b/l. B/l exp wheezing, improved from yesterday. No Rhonchi bilaterally. Abd: NT/ND + BS Ext: Trace edema bilateral lower extremity. No cyanosis Labs (see below) Images: CT Chest 05/25/16 Impression: Bibasilar atelectatic changes, similar to the prior CT. Calcified granulomas on the right, unchanged. There is an indwelling central venous catheter with the tip in the right atrium in satisfactory location, unchanged. Sequela of prior fractures versus foreign bodies posteriorly on the right. Foreign bodies posteriorly on the left. No significant interval change from the prior studies. Echo 04/2015 2D COMMENTS: 1. Technically limited study due to poor acoustic window. 2. The left ventricular size is normal with a normal left ventricular wall thickness. Left ventricular systolic function is normal with an estimated LV systolic ejection fraction of 60% to 65%. 3. Mildly enlarged left atrium. The right atrium and the right ventricle appear to be normal in limited views. 4. Normal aortic root. 5. No pericardial effusion noted in limited views. 6. Minimally calcified aortic valve, leaflet excursion was not well visualized. The mitral valve leaflets as well as the tricuspid valve leaflets appeared to be normal in limited views. 7. The inferior vena cava was not visualized. DOPPLER: It detects trace mitral regurgitation and mild tricuspid regurgitation. The calculated pulmonary artery systolic pressure varies between 30 to 40 mmHg. Abnormal relaxation pattern was noted across the mitral valve annulus, left ventricular end-diastolic pressure might be elevated. IMPRESSION: 1. Technically limited study due to poor acoustic window. 2. Normal global left ventricular systolic function. There are features of left ventricular diastolic dysfunction. 3. Trace mitral regurgitation with a mildly enlarged left atrium. The dilated left atrium may be secondary to underlying left ventricular diastolic dysfunction because there is no significant mitral regurgitation. 4. Trace to mild tricuspid regurgitation with mild pulmonary hypertension. Assessment/Plan 1. Acute respiratory distress secondary to influenza. Fevers resolved. Sputum cultures pending. Started on vancomycin/Zosyn pending cultures. Continue Tamiflu. Droplet precautions. Started today on nebulizers, steroids. CT of the chest with no consolidation. CRP trending down. With chronic respiratory acidosis. Pt is retaining Co2. Discussed case with Dr. Del Cid with recommendations to continue her CPAP during the day, as well as at night. IV steroids changed to PO. Insulin has been increased. 2. Acute Decompensated Diastolic HF- improved. s/p Lasix. 3. Acute kidney injury on chronic kidney disease, baseline creatinine of 1.1. Appreciate nephrology input. Improved. 4. Enteroccous Faecalis UTI - on Vanco 5 History of arachnoiditis- stable 6. Musculoskeletal chest pain, resolved 7.Diabetes mellitus - Levemir dose increased to 120 TID 8. History of DVT status post IVC 9. MATT on CPAP; Respiratory Acidosis. DVT prophy: Heparin subcutaneous VS,Fishbone, I+O VS, Fishbone, I+O Laboratory Tests 05/28/16 20:38 Calcium Level 8.2 L 05/29/16 05:00 Calcium Level 8.7 L, Red Blood Count 3.93 L, Mean Corpuscular Volume 85.7, Mean Corpuscular Hemoglobin 25.0 L, Mean Corpuscular Hemoglobin Concent 29.2 L, Red Cell Distribution Width 18.1 H Vital Signs Date Time Temp Pulse Resp B/P Pulse Ox O2 Delivery O2 Flow Rate FiO2 05/29/16 08:44 Nasal Cannula 2.0 05/29/16 08:43 76 164/74 05/29/16 06:00 97.1 18 92 I&O- Last 24 Hours up to 6 AM 05/29/16 06:00 Intake Total 2330 ml Output Total 4900 ml Balance -2570 ml KEARA MCGHEE MD May 29, 2016 11:00
[2016-05-29 11:38] LABS: VANCOMYCIN RANDOM 11.4 UG/ML
[2016-05-29 14:00] VITALS: BP 128/74
--- NOTE | 2016-05-29 14:19 | ECHO ---
DATE OF PROCEDURE: 05/28/2016 REFERRING PHYSICIAN: Zhou Hines MD PATIENT LOCATION: Room 4217 REASON FOR ECHOCARDIOGRAM: Heart failure, unspecified. 2D MEASUREMENTS: IVS: 1.2 cm LV: 4.9 cm LVPW: 1.2 cm LA: 3.5 cm Aorta: 2.7 cm IVC: 2.5 cm DOPPLER MEASUREMENTS: Peak velocity across the aortic valve: 1.8 m/s Peak velocity across the LVOT: 1.1 m/s Mitral E: 1.2, Mitral A: 0.95, with a ratio of 1.3 Maximum tricuspid valve velocity: 2.7 m/s 2D COMMENTS: 1. Normal left ventricular size and wall thickness with a normal global left ventricular systolic function. Left ventricular systolic ejection fraction is estimated at 60 to 65%. 2. Normal left atrium. Normal right atrium and right ventricle. 3. The atrial septum appeared to be normal without evidence of defect or shunt. 4. Normal aortic root. 5. No pericardial effusion seen. 6. Minimally calcified aortic valve with normal leaflet excursion. Mildly calcified mitral annulus with normal anterior mitral valve leaflet motion. Normal tricuspid valve and pulmonic valve. The proximal pulmonary artery branches also appear to be normal. 7. The inferior vena cava was mildly enlarged, central venous pressure might be elevated. DOPPLER: It detects trace aortic regurgitation, trace mitral regurgitation and mild tricuspid regurgitation. The calculated pulmonary artery systolic pressure varies between 30 to 40 mmHg. Abnormal relaxation pattern was noted across the septal and lateral mitral valve annulus consistent with a pseudonormal pattern, left ventricular and diastolic pressure might be elevated. IMPRESSION: 1. Normal global left ventricular systolic function. There are some features of left ventricular diastolic dysfunction as mentioned above. 2. Aortic valve sclerosis with trace aortic regurgitation. No significant aortic stenosis detected. 3. Mitral annulus calcification with trace mitral regurgitation. 4. Mild tricuspid regurgitation with mild pulmonary hypertension.
--- NOTE | 2016-05-29 15:01 | IPN ---
DATE: 05/29/2016 Ms. Stern is seen this morning on her bedside. She remains short of breath and has been using bilevel positive airway pressure (BiPAP), particularly at night. This morning, she is still quite short of breath. She reports dry mouth and dry tongue. She denies any nausea or vomiting but has very poor appetite. She has no fever or chills. PHYSICAL EXAMINATION: Temperature 97.1 degrees Fahrenheit, heart rate 76 per minute and respiratory rate 18 per minute. Blood pressure 164/74 mmHg and oxygen saturation 92% on 2 liters of oxygen. Intake and output records from yesterday showed total intake 2355 and output 5250 mL with a negative balance of about 2900 mL. Her weight is down to 123.8 kg today. Head is atraumatic. Ears, nose and eyes are unremarkable. Oral mucosa is very dry but without any thrush or ulcers. Neck veins are not abnormally distended. Trachea is midline, and there is no thyroid enlargement. Lungs have moderate bilateral air entry with scattered rhonchi. Heart sounds are regular. Abdomen is soft, obese and nontender and without palpable organomegaly. Extremities: Without any cyanosis or clubbing. Skin is dry and without rash or ulcers. Neurologically, she is awake, alert and oriented times three. She has no focal neurological deficit. Today's labs show WBC count 3.2, hemoglobin 9.8 and hematocrit 33.7. Platelets 207. Sodium 142 and potassium 4.7. CO2 of 33 and chloride 101. BUN 27 and creatinine 1.52. Glucose is 518. Hemoglobin A1c is 11.7% today. PROBLEMS: 1. Acute kidney injury superimposed on chronic kidney disease. She does have underlying chronic kidney disease and is probably at about her baseline. She was diuresed due to shortness of breath but in my opinion, her volume status is now very well compensated and I would recommend to not diurese her too aggressively. 2. Shortness of breath. This is most likely related to her chronic lung disease and acute respiratory infection. The patient is oxygenating reasonably well. I do not feel that hypervolemia is playing any significant role at this point. I suggest to maintain her an even fluid balance and not try to diurese her anymore. 3. Hyperglycemia. This is a major factor and is probably contributing to her dry mouth and overall condition. I suggest to control her hyperglycemia more aggressively with insulin and sliding scale coverage. 4. Anemia. Her anemia is mild and stable and does not need any intervention at this point. 5. Dry mouth. This is probably a result of combination of factors including diuresis, hyperglycemia and use of scopolamine patch. Her scopolamine patch is being stopped. I recommend to aggressively control her hyperglycemia.
[2016-05-29] MEDS ORDERED: VANCOMYCIN HCL 1,000 MG, VIAL MATE ADAPTER 1 EACH in D5W 250 ML IV SCH (21:00)
[2016-05-29 22:00] VITALS: BP 133/61
[2016-05-30] MEDS: IPRATROPIUM 0.5MG/ALBUTEROL 2.5MG INH SOL UD 3ML (DUONEB)(J7620) NEB SCH ×6 (03:17→23:27)
[2016-05-30] MEDS: PERCOCET 5MG/325MG TAB PO PRN (03:20)
[2016-05-30] MEDS: HEPARIN SOD (PORCINE) 5000 UNITS/ML VIAL SC SCH ×3 (05:33→22:03)
[2016-05-30] MEDS: SODIUM CHLORIDE 0.9% INJ 10 ML SYR IV PRN ×2 (05:33→22:03)
[2016-05-30 05:57] LABS: MEAN CORPUSCULAR HEMOGLOBIN 25.1 pg (27.0-33.0); MEAN CORPUSCULAR HGB CONC 29.1 g/dl (32.0-36.5); MEAN CORPUSCULAR VOLUME 86.2 fl (80.0-96.0); RED CELL DISTRIBUTION WIDTH 18.2 % (11.5-14.5); WHITE BLOOD COUNT 4.3 K/mm3 (4.0-10.0)
[2016-05-30 06:00] VITALS: BP 129/69
[2016-05-30 06:48] LABS: CALCIUM LEVEL 8.7 MG/DL (8.8-10.2); CREATININE FOR GFR 1.25 MG/DL (0.55-1.02); POTASSIUM SERUM 4.1 MEQ/L (3.5-5.1)
[2016-05-30] MEDS: LEVEMIR (INSULIN DETEMIR) 1 UNITS/0.01ML SC SCH ×3 (08:54→22:02)
[2016-05-30] MEDS: HumaLOG INSULIN (NovoLOG) PER UNIT SC SCH ×4 (08:54→22:03)
[2016-05-30] MEDS: SODIUM CHLORIDE 0.9% INJ 10 ML SYR IV SCH (08:55)
[2016-05-30] MEDS: SENOKOT S TAB PO SCH ×2 (08:55→22:01)
[2016-05-30] MEDS: LACTULOSE 20 GM/30 ML SYRUP UD PO SCH ×2 (08:55→22:00)
[2016-05-30] MEDS: PREGABALIN 100 MG CAP (LYRICA) PO SCH ×3 (08:55→22:01)
[2016-05-30] MEDS: SUCRALFATE 1 GM TAB PO SCH ×2 (08:55→22:01)
[2016-05-30] MEDS: predniSONE 20 MG TAB PO SCH (08:56)
[2016-05-30] MEDS: OMEPRAZOLE 20 MG CAP PO SCH ×2 (08:56→22:01)
[2016-05-30] MEDS: OSELTAMIVIR PHOSPHATE 75 MG CAP (TAMIFLU) PO SCH ×2 (08:56→22:01)
[2016-05-30] MEDS: levETIRAcetam 250MG TABLET (KEPPRA) PO SCH ×4 (08:56→22:01)
[2016-05-30] MEDS: DOCUSATE SODIUM 100 MG CAP PO SCH ×2 (08:56→22:02)
[2016-05-30] MEDS: BACLOFEN 10 MG TAB PO SCH ×2 (08:56→22:02)
[2016-05-30] MEDS: METOCLOPRAMIDE 10 MG TAB PO SCH ×3 (08:56→22:01)
[2016-05-30] MEDS: ASPIRIN 81 MG ENTERIC TAB PO SCH (08:59)
[2016-05-30] MEDS: guaiFENesin ER 600 MG TAB PO SCH ×2 (08:59→22:02)
[2016-05-30] MEDS: FLUoxetine 20 MG CAP PO SCH (08:59)
[2016-05-30] MEDS: PROMETHAZINE 25 MG TAB PO SCH ×3 (08:59→17:56)
[2016-05-30] MEDS: BISOPROLOL FUMARATE 5 MG TAB PO SCH (08:59)
--- NOTE | 2016-05-30 12:30 | IPNPDOC ---
Text Note Date of Service The patient was seen on 05/30/16. NOTE Subjective: SOB resolved. No CP/ palpations. Has been using CPAP during the day. Objective: Vitals: (see below) General: No acute distress, laying comfortably in bed. HEENT: Dry mucous membranes. Neck: No JVD or lymphadenopathy Cardiac: RRR, No murmurs Pulm: Coarse crackles at the bases b/l. B/l exp wheezing, improved from yesterday. No Rhonchi bilaterally. Abd: NT/ND + BS Ext: Trace edema bilateral lower extremity. No cyanosis Labs (see below) Images: CT Chest 05/25/16 Impression: Bibasilar atelectatic changes, similar to the prior CT. Calcified granulomas on the right, unchanged. There is an indwelling central venous catheter with the tip in the right atrium in satisfactory location, unchanged. Sequela of prior fractures versus foreign bodies posteriorly on the right. Foreign bodies posteriorly on the left. No significant interval change from the prior studies. Echo 04/2015 2D COMMENTS: 1. Technically limited study due to poor acoustic window. 2. The left ventricular size is normal with a normal left ventricular wall thickness. Left ventricular systolic function is normal with an estimated LV systolic ejection fraction of 60% to 65%. 3. Mildly enlarged left atrium. The right atrium and the right ventricle appear to be normal in limited views. 4. Normal aortic root. 5. No pericardial effusion noted in limited views. 6. Minimally calcified aortic valve, leaflet excursion was not well visualized. The mitral valve leaflets as well as the tricuspid valve leaflets appeared to be normal in limited views. 7. The inferior vena cava was not visualized. DOPPLER: It detects trace mitral regurgitation and mild tricuspid regurgitation. The calculated pulmonary artery systolic pressure varies between 30 to 40 mmHg. Abnormal relaxation pattern was noted across the mitral valve annulus, left ventricular end-diastolic pressure might be elevated. IMPRESSION: 1. Technically limited study due to poor acoustic window. 2. Normal global left ventricular systolic function. There are features of left ventricular diastolic dysfunction. 3. Trace mitral regurgitation with a mildly enlarged left atrium. The dilated left atrium may be secondary to underlying left ventricular diastolic dysfunction because there is no significant mitral regurgitation. 4. Trace to mild tricuspid regurgitation with mild pulmonary hypertension. Assessment/Plan 1. Acute respiratory distress secondary to influenza. Fevers resolved. S/p vancomycin/Zosyn. Continue Tamiflu. Droplet precautions. Cont nebulizers, steroids. CT of the chest with no consolidation. CRP trending down. With chronic respiratory acidosis. Pt is retaining Co2. Discussed case with Dr. Del Cid with recommendations to continue her CPAP during the day, as well as at night. IV steroids changed to PO. Insulin has been increased. 2. Acute Decompensated Diastolic HF- improved. s/p Lasix. 3. Acute kidney injury on chronic kidney disease, baseline creatinine of 1.1. Appreciate nephrology input. Improved. 4. Enteroccous Faecalis UTI - on Vanco 5 History of arachnoiditis- stable 6. Musculoskeletal chest pain, resolved 7.Diabetes mellitus - Levemir dose increased to 135 TID 8. History of DVT status post IVC 9. MATT on CPAP; Respiratory Acidosis. DVT prophy: Heparin subcutaneous VS,Fishbone, I+O VS, Fishbone, I+O Laboratory Tests 05/30/16 05:31 Calcium Level 8.7 L 05/30/16 05:39 Red Blood Count 3.81 L, Mean Corpuscular Volume 86.2, Mean Corpuscular Hemoglobin 25.1 L, Mean Corpuscular Hemoglobin Concent 29.1 L, Red Cell Distribution Width 18.2 H Vital Signs Date Time Temp Pulse Resp B/P Pulse Ox O2 Delivery O2 Flow Rate FiO2 05/30/16 08:59 61 129/69 05/30/16 08:52 Nasal Cannula 2.0 05/30/16 06:00 96.7 20 95 I&O- Last 24 Hours up to 6 AM 05/30/16 05:59 Intake Total 2450 ml Output Total 2525 ml Balance -75 ml KEARA MCGHEE MD May 30, 2016 12:30 KEARA MCGHEE MD May 30, 2016 12:30 KEARA MCGHEE MD May 30, 2016 12:30
--- NOTE | 2016-05-30 12:54 | IPN ---
DATE: Nothing dictated. 00.02 seconds. Signing off to permanent hold. Dion 2016.( I have re-dictated.) [facility]
[2016-05-30 14:03] VITALS: BP 122/68
--- NOTE | 2016-05-30 18:33 | ECGEPIP ---
Stationary ECG Study [facility] Test Date: 2016-05-30 Pat Name: SHIVANI PAYNE Department: Room: [place] [address] Gender: F Yard Jacker: FOUZIA : 1945 Requested By: KERAA MCGHEE Order Number: [id number] Reading MD: Todd Bansal Measurements Intervals [place] Rate: 61 P: 55 [place]: 180 QRS: 32 QRSD: 97 T: 53 QT: 440 QTc: 446 Interpretive Statements SINUS RHYTHM WITH SINUS ARRHYTHMIA LOW QRS VOLTAGE POSSIBLE ANTERIOR MYOCARDIAL INFARCTION, OF INDETERMINATE AGE VERSUS POOR R-WAVE PROGRESSION ST ELEVATION NOTED, PROBABLY RELATED TO EARLY REPOLARIZATION LAST EKG ON 12:11:06. NO SIGNIFICANT CHANGES Electronically Signed On 05-30-2016 18:32:51 EST by Todd Bansal
[2016-05-30 22:00] VITALS: BP 152/67
[2016-05-31] MEDS: PERCOCET 5MG/325MG TAB PO PRN (03:39)
[2016-05-31] MEDS: IPRATROPIUM 0.5MG/ALBUTEROL 2.5MG INH SOL UD 3ML (DUONEB)(J7620) NEB SCH ×5 (03:55→21:10)
[2016-05-31] MEDS: HEPARIN SOD (PORCINE) 5000 UNITS/ML VIAL SC SCH ×3 (05:35→21:16)
[2016-05-31] MEDS: SODIUM CHLORIDE 0.9% INJ 10 ML SYR IV PRN ×2 (05:36→12:05)
[2016-05-31 05:54] LABS: MEAN CORPUSCULAR HEMOGLOBIN 25.4 pg (27.0-33.0); MEAN CORPUSCULAR HGB CONC 29.8 g/dl (32.0-36.5); MEAN CORPUSCULAR VOLUME 85.4 fl (80.0-96.0); RED CELL DISTRIBUTION WIDTH 18.1 % (11.5-14.5); WHITE BLOOD COUNT 5.4 K/mm3 (4.0-10.0)
[2016-05-31 06:00] VITALS: BP 129/62
[2016-05-31 06:27] LABS: CALCIUM LEVEL 8.3 MG/DL (8.8-10.2); CREATININE FOR GFR 1.33 MG/DL (0.55-1.02); GLOMERULAR FILTRATION RATE 41.9 (>39); POTASSIUM SERUM 4.1 MEQ/L (3.5-5.1)
[2016-05-31] MEDS: LACTULOSE 20 GM/30 ML SYRUP UD PO SCH ×2 (08:56→21:15)
[2016-05-31] MEDS: LEVEMIR (INSULIN DETEMIR) 1 UNITS/0.01ML SC SCH ×3 (08:56→21:17)
[2016-05-31] MEDS: HumaLOG INSULIN (NovoLOG) PER UNIT SC SCH ×4 (08:57→21:15)
[2016-05-31] MEDS: BISOPROLOL FUMARATE 5 MG TAB PO SCH (08:57)
[2016-05-31] MEDS: DOCUSATE SODIUM 100 MG CAP PO SCH ×2 (08:57→21:16)
[2016-05-31] MEDS: PROMETHAZINE 25 MG TAB PO SCH ×3 (08:58→16:25)
[2016-05-31] MEDS: OSELTAMIVIR PHOSPHATE 75 MG CAP (TAMIFLU) PO SCH ×2 (08:58→21:15)
[2016-05-31] MEDS: levETIRAcetam 250MG TABLET (KEPPRA) PO SCH ×4 (08:58→21:16)
[2016-05-31] MEDS: SUCRALFATE 1 GM TAB PO SCH ×2 (08:58→21:14)
[2016-05-31] MEDS: BACLOFEN 10 MG TAB PO SCH ×2 (08:58→21:16)
[2016-05-31] MEDS: ASPIRIN 81 MG ENTERIC TAB PO SCH (08:58)
[2016-05-31] MEDS: predniSONE 20 MG TAB PO SCH (08:58)
[2016-05-31] MEDS: FLUoxetine 20 MG CAP PO SCH (08:58)
[2016-05-31] MEDS: guaiFENesin ER 600 MG TAB PO SCH ×2 (08:58→21:16)
[2016-05-31] MEDS: OMEPRAZOLE 20 MG CAP PO SCH ×2 (08:58→21:16)
[2016-05-31] MEDS: PREGABALIN 100 MG CAP (LYRICA) PO SCH ×3 (08:58→21:16)
[2016-05-31] MEDS: ACETAMINOPHEN TAB 650MG DOSE (2X325MG) PO PRN ×2 (08:59→21:17)
[2016-05-31] MEDS: SODIUM CHLORIDE 0.9% INJ 10 ML SYR IV SCH (08:59)
[2016-05-31] MEDS: SENOKOT S TAB PO SCH ×2 (08:59→21:17)
[2016-05-31] MEDS: METOCLOPRAMIDE 10 MG TAB PO SCH ×3 (08:59→21:17)
[2016-05-31] MEDS ORDERED: SALIVA SUBSTITUTE(MOUTHKOTE) BTL MT PRN (11:00)
[2016-05-31] MEDS ORDERED: FUROSEMIDE 40 MG/4 ML VIAL (J1940) IV ONE (11:15)
--- NOTE | 2016-05-31 11:43 | IPNPDOC ---
Text Note Date of Service The patient was seen on 05/31/16. NOTE Subjective: SOB resolved. No CP/ palpations. Has been using CPAP during the day. Objective: Vitals: (see below) General: No acute distress, laying comfortably in bed. HEENT: Dry mucous membranes. Neck: No JVD or lymphadenopathy Cardiac: RRR, No murmurs Pulm: Coarse crackles at the bases b/l. B/l exp wheezing, improved from yesterday. No Rhonchi bilaterally. Abd: NT/ND + BS Ext: Trace edema bilateral lower extremity. No cyanosis Labs (see below) Images: CT Chest 05/25/16 Impression: Bibasilar atelectatic changes, similar to the prior CT. Calcified granulomas on the right, unchanged. There is an indwelling central venous catheter with the tip in the right atrium in satisfactory location, unchanged. Sequela of prior fractures versus foreign bodies posteriorly on the right. Foreign bodies posteriorly on the left. No significant interval change from the prior studies. Echo 04/2015 2D COMMENTS: 1. Technically limited study due to poor acoustic window. 2. The left ventricular size is normal with a normal left ventricular wall thickness. Left ventricular systolic function is normal with an estimated LV systolic ejection fraction of 60% to 65%. 3. Mildly enlarged left atrium. The right atrium and the right ventricle appear to be normal in limited views. 4. Normal aortic root. 5. No pericardial effusion noted in limited views. 6. Minimally calcified aortic valve, leaflet excursion was not well visualized. The mitral valve leaflets as well as the tricuspid valve leaflets appeared to be normal in limited views. 7. The inferior vena cava was not visualized. DOPPLER: It detects trace mitral regurgitation and mild tricuspid regurgitation. The calculated pulmonary artery systolic pressure varies between 30 to 40 mmHg. Abnormal relaxation pattern was noted across the mitral valve annulus, left ventricular end-diastolic pressure might be elevated. IMPRESSION: 1. Technically limited study due to poor acoustic window. 2. Normal global left ventricular systolic function. There are features of left ventricular diastolic dysfunction. 3. Trace mitral regurgitation with a mildly enlarged left atrium. The dilated left atrium may be secondary to underlying left ventricular diastolic dysfunction because there is no significant mitral regurgitation. 4. Trace to mild tricuspid regurgitation with mild pulmonary hypertension. Assessment/Plan 1. Acute respiratory distress secondary to influenza. Significantly improved. Close to baseline. Fevers resolved. S/p vancomycin/Zosyn. Continue Tamiflu. Droplet precautions. Cont nebulizers, steroids. CT of the chest with no consolidation. CRP trending down. With chronic respiratory acidosis. Pt is retaining Co2. Discussed case with Dr. Del Cid with recommendations to continue her CPAP during the day, as well as at night. IV steroids changed to PO. Insulin has been increased. 2. Acute Decompensated Diastolic HF- improved. s/p Lasix. 3. Acute kidney injury on chronic kidney disease, baseline creatinine of 1.1. Appreciate nephrology input. Improved. 4. Enteroccous Faecalis UTI - on Vanco 5 History of arachnoiditis- stable 6. Musculoskeletal chest pain, resolved 7.Diabetes mellitus - Cont Levemir dose 135 TID, may require less now than steroids have been decreased. 8. History of DVT status post IVC 9. MATT on CPAP; Respiratory Acidosis. DVT prophy: Heparin subcutaneous VS,Fishbone, I+O VS, Fishbone, I+O Laboratory Tests 05/31/16 05:35 Calcium Level 8.3 L, Red Blood Count 3.66 L, Mean Corpuscular Volume 85.4, Mean Corpuscular Hemoglobin 25.4 L, Mean Corpuscular Hemoglobin Concent 29.8 L, Red Cell Distribution Width 18.1 H Vital Signs Date Time Temp Pulse Resp B/P Pulse Ox O2 Delivery O2 Flow Rate FiO2 05/31/16 08:57 70 129/62 05/31/16 06:00 97.1 20 96 NIPPV (BIPAP/CPAP) 2.0 I&O- Last 24 Hours up to 6 AM 05/31/16 06:00 Intake Total 2180 ml Output Total 1375 ml Balance 805 ml KEARA MCGHEE MD May 31, 2016 11:43
--- NOTE | 2016-05-31 11:55 | IPN ---
DATE OF VISIT: 05/31/2016 Ms. Stern is seen this morning on her bedside. She is sitting in the recliner chair. She reports slight worsening of her respiratory problem. She has been using bilateral positive airway pressure (BiPAP) at night. She denies any nausea or vomiting but does have a complaint of persistent dry tongue and dry mouth. She has no fever or chills. On physical examination, temperature 97.1 degrees Fahrenheit, heart rate 70 per minute, and respiratory rate 20 per minute. Blood pressure 129/62 mmHg and oxygen saturation 96% on 2 liters oxygen. Intake and output records from yesterday show a positive fluid balance of about 1140 mL. Her head is atraumatic. Tongue is very dry, and there is no thrush or ulcers. Ears, nose, and throat are unremarkable. Pupils are equal and reactive to light and sclerae anicteric. Neck veins are difficult to be assessed. Lungs have diminished breath sounds, and bilateral rales are audible. Heart sounds are distant but regular. Abdomen is obese and nontender and without any palpable organomegaly. Extremities: Have no cyanosis or clubbing. Skin has no rash or ulcers. Neurologically, she is awake, alert, and oriented times three. Today's laboratories show WBC count 5.4, hemoglobin 9.3, and hematocrit 31.2. Platelets 210. Sodium 147 and potassium for 4.1. BUN 24 and creatinine 1.33. Glucose 198 and calcium 8.3. Her most recent chest x-ray is 05/28/2016, which showed persistent pulmonary edema. PROBLEMS: 1. Acute renal failure superimposed on chronic kidney disease. Slight worsening of kidney function is noted. She was is positive fluid balance yesterday and has been off diuretics. Her diabetes is also now better controlled, so I am not sure why her kidney function went down. 2. Acute on chronic hypoxemia with congestive heart failure. She has chronic underlying lung disease and remains on BiPAP. Worsening hypoxemia is probably related to acute viral infection and mild volume overload. Will give her one dose of Lasix 40 mg intravenously today and continue with fluid restriction of 2200 mL per day. 3. Dry mouth. She has very severe dryness of her tongue and mouth. Will use artificial saliva, as the patient will need to remain on fluid restriction. 4. Chronic obstructive pulmonary disease (COPD). She remains on chronic bronchodilators and nebulizers. 5. Hypernatremia. Sodium level is slightly elevated despite positive fluid balance yesterday. She is being advised to avoid any addition of sodium to her food. We hope that diuretics will help to correct her hypernatremia. Her hyperglycemia has already improved significantly.
[2016-05-31 14:00] VITALS: BP 145/60
[2016-05-31 22:00] VITALS: BP 144/67
[2016-06-01] MEDS: IPRATROPIUM 0.5MG/ALBUTEROL 2.5MG INH SOL UD 3ML (DUONEB)(J7620) NEB SCH ×7 (00:27→23:45)
[2016-06-01] MEDS: HEPARIN SOD (PORCINE) 5000 UNITS/ML VIAL SC SCH ×3 (05:27→21:29)
[2016-06-01] MEDS: SODIUM CHLORIDE 0.9% INJ 10 ML SYR IV PRN (05:27)
[2016-06-01 05:59] LABS: MEAN CORPUSCULAR HEMOGLOBIN 25.5 pg (27.0-33.0); MEAN CORPUSCULAR HGB CONC 29.6 g/dl (32.0-36.5); MEAN CORPUSCULAR VOLUME 86.3 fl (80.0-96.0); RED CELL DISTRIBUTION WIDTH 18.1 % (11.5-14.5); WHITE BLOOD COUNT 4.8 K/mm3 (4.0-10.0)
[2016-06-01 06:00] VITALS: BP 131/62
[2016-06-01 07:17] LABS: CALCIUM LEVEL 8.2 MG/DL (8.8-10.2); CREATININE FOR GFR 1.23 MG/DL (0.55-1.02); GLOMERULAR FILTRATION RATE 45.8 (>39); POTASSIUM SERUM 3.5 MEQ/L (3.5-5.1)
[2016-06-01] MEDS: ASPIRIN 81 MG ENTERIC TAB PO SCH (08:36)
[2016-06-01] MEDS: OMEPRAZOLE 20 MG CAP PO SCH ×2 (08:36→21:29)
[2016-06-01] MEDS: guaiFENesin ER 600 MG TAB PO SCH ×2 (08:37→21:30)
[2016-06-01] MEDS: FLUoxetine 20 MG CAP PO SCH (08:37)
[2016-06-01] MEDS: SUCRALFATE 1 GM TAB PO SCH ×2 (08:37→21:29)
[2016-06-01] MEDS: METOCLOPRAMIDE 10 MG TAB PO SCH ×3 (08:37→21:30)
[2016-06-01] MEDS: DOCUSATE SODIUM 100 MG CAP PO SCH ×2 (08:37→21:29)
[2016-06-01] MEDS: OSELTAMIVIR PHOSPHATE 75 MG CAP (TAMIFLU) PO SCH (08:37)
[2016-06-01] MEDS: predniSONE 20 MG TAB PO SCH (08:37)
[2016-06-01] MEDS: BACLOFEN 10 MG TAB PO SCH ×2 (08:37→21:30)
[2016-06-01] MEDS: SENOKOT S TAB PO SCH ×2 (08:37→21:30)
[2016-06-01] MEDS: PREGABALIN 100 MG CAP (LYRICA) PO SCH ×3 (08:37→21:30)
[2016-06-01] MEDS: PROMETHAZINE 25 MG TAB PO SCH ×3 (08:37→16:48)
[2016-06-01] MEDS: levETIRAcetam 250MG TABLET (KEPPRA) PO SCH ×4 (08:37→21:29)
[2016-06-01] MEDS: BISOPROLOL FUMARATE 5 MG TAB PO SCH (08:40)
[2016-06-01] MEDS: LACTULOSE 20 GM/30 ML SYRUP UD PO SCH ×2 (08:43→21:29)
[2016-06-01] MEDS: HumaLOG INSULIN (NovoLOG) PER UNIT SC SCH ×4 (08:43→21:31)
[2016-06-01] MEDS: LEVEMIR (INSULIN DETEMIR) 1 UNITS/0.01ML SC SCH ×3 (08:43→21:30)
[2016-06-01] MEDS: SODIUM CHLORIDE 0.9% INJ 10 ML SYR IV SCH (08:49)
--- NOTE | 2016-06-01 12:18 | IPN ---
DATE: 05/30/2016 Mrs. Saez is seen in the morning of May 30 on her bedside. She continues to have dyspnea and uses BiPAP at night. At the time of my visit, she is sitting in the recliner chair. She continues to use oxygen via nasal cannula during daytime. She has cough and difficulty breathing. She denies any nausea or vomiting. She has a complaint of dry mouth. There is no fever or chills at present. On physical exam, temperature 96.7 degrees Fahrenheit, heart rate 54 per minute and respiratory rate 20 per minute. Blood pressure 129/69 mmHg and oxygen saturation 95% on 2 liters oxygen. Head is atraumatic. Oral mucosa is very dry, but without any thrush or ulcers. Pupils equal and reactive to light and sclera anicteric. Ears, nose and throat are unremarkable. Heart sounds are regular and distant. Lungs have bilateral wheezing and rhonchi. Abdomen obese, soft and nontender. Bowel sounds are present. Extremities have no cyanosis or clubbing. Skin has no rash or ulcers. Neurologically, she is awake and alert and oriented times three. Intake and output records from yesterday show almost even balance. Labs show WBC count 4.3, hemoglobin 9.6 and hematocrit 32.8. Platelets 205. Sodium 146 and potassium 4.1. BUN 26 and creatinine 1.25. Glucose 274 and calcium 8.7. PROBLEMS: 1. Acute renal failure superimposed on chronic kidney disease. Acute renal failure has resolved completely and kidney function is back to almost baseline. At this point, we will continue to monitor her kidney function on a daily basis. 2. Hypernatremia. This is mild and most likely related to her hyperglycemia and diuresis. At present, her blood sugars are better and diuretics have been stopped. We anticipate that her sodium level will improve over next the couple of days. 3. Dry mouth. The patient will be given artificial saliva to help with her dry mouth. She could be slightly over diuresed due to osmotic diuresis caused by hyperglycemia. At this point, no further diuretics are being given. 4. Hypoxemia. This is chronic related to her underlying lung disease and now related to superimposed viral infection. She remains on nebulizers. I do not feel that her volume status is decompensated at this time.
--- NOTE | 2016-06-01 12:23 | IPN ---
DATE: 06/01/2016 Ms. Saez is seen this morning on her bedside. She is sitting in the bed with head end elevated. She denies any nausea or vomiting. She reports increased wheezing today. She has no chest pain, fever or chills. She denies any hemoptysis or pleuritic type of chest pain. On physical exam, temperature 96 degrees Fahrenheit, heart rate 56 per minute and respiratory rate 18 per minute. Blood pressure 131/62 mmHg and oxygen saturation 94% on 2 liters oxygen. Head is atraumatic. Her oral mucosa is dry, but now she is using artificial saliva which is helping. Pupils are equal and reactive to light and sclera is anicteric. Ears, nose and throat are unremarkable. Neck is supple and without any jugular venous distention (JVD) or thyroid enlargement. Heart sounds are regular and distant. Lungs have bilateral expiratory wheezing with moderate air entry. Abdomen obese, nontender and without palpable organomegaly. Bowel sounds are normal. Extremities have no cyanosis or clubbing. Skin has no rash or ulcers. Neurologically, she has no focal deficit. She is awake, alert and oriented. Today's labs show sodium level 149 and potassium 3.5. BUN 20 and creatinine 1.23. Glucose 116 and calcium 8.2. PROBLEMS: 1. Hypernatremia. Sodium level has worsened due to diuretic dose given yesterday. We will not give her diuretic anymore. She remains on fluid restriction and may be slightly over diuresed. We will watch her sodium without any other intervention. No diuretics will be given today. 2. Hypokalemia. This is mild and related to diuretic use. One dose of potassium chloride 20 mEq will be given and electrolytes will be checked again tomorrow morning. 3. Hypoxemia. This is mostly a chronic issue related to her chronic lung disease. She also has superimposed viral infection. I do not feel that hypervolemia has any role. She is not in need of diuretic.
[2016-06-01] MEDS ORDERED: POTASSIUM CHLORIDE 10 MEQ SR TABLET PO ONE (13:00)
[2016-06-01 14:00] VITALS: BP 140/65
[2016-06-01 21:51] VITALS: BP 150/67
[2016-06-02] MEDS: IPRATROPIUM 0.5MG/ALBUTEROL 2.5MG INH SOL UD 3ML (DUONEB)(J7620) NEB SCH ×5 (03:48→21:38)
[2016-06-02] MEDS: HEPARIN SOD (PORCINE) 5000 UNITS/ML VIAL SC SCH ×3 (05:00→21:55)
[2016-06-02] MEDS: SODIUM CHLORIDE 0.9% INJ 10 ML SYR IV PRN (05:14)
[2016-06-02 05:20] VITALS: BP 160/65
[2016-06-02 05:32] LABS: MEAN CORPUSCULAR HEMOGLOBIN 24.8 pg (27.0-33.0); MEAN CORPUSCULAR HGB CONC 28.8 g/dl (32.0-36.5); MEAN CORPUSCULAR VOLUME 86.2 fl (80.0-96.0); RED CELL DISTRIBUTION WIDTH 17.8 % (11.5-14.5); WHITE BLOOD COUNT 5.7 K/mm3 (4.0-10.0)
[2016-06-02 06:12] LABS: CALCIUM LEVEL 8.7 MG/DL (8.8-10.2); CREATININE FOR GFR 1.23 MG/DL (0.55-1.02); GLOMERULAR FILTRATION RATE 45.8 (>39); POTASSIUM SERUM 3.9 MEQ/L (3.5-5.1)
--- NOTE | 2016-06-02 07:26 | IPN ---
DATE OF SERVICE: 06/01/2016 SUBJECTIVE: Patient seen and examined in the room today. Patient feels she is getting better, but she does not feel she is back to her baseline. Still has significant wheezes. Still has a cough. No overnight events reported. OBJECTIVE: VITAL SIGNS: Temperature 96, pulse 56, respirations 18, blood pressure 131/62, pulse oximetry 94% with 2 liters nasal cannula. GENERAL: No signs of acute distress. Alert and oriented times three. HEENT: Normocephalic, atraumatic. Extraocular motor grossly intact. CARDIOVASCULAR: Positive S1, S2. Regular rate. LUNGS: Coarse lungs sounds bilaterally. Mild expiratory wheezes. ABDOMEN: Soft, nontender, nondistended. Bowel sounds present. No rebound. No guarding. EXTREMITIES: No edema. No cyanosis. LABORATORY DATA: WBC 4.8, hemoglobin 9.5, hematocrit 32.1, platelet count 219. Sodium 149, potassium 3.5, chloride 109, carbon dioxide 32, BUN 20, creatinine 1.23, GFR 45.8, fasting glucose 116, calcium 8.2. ASSESSMENT AND PLAN: 1. Acute respiratory failure secondary to influenza. Patient has been on Tamiflu. Continue conservative medical management. Patient is continued on continuous positive airway pressure (CPAP) during the day per Dr. Del Cid's recommendation and patient should continue to use CPAP at night for her obstructive sleep apnea (MATT). 2. Acute decompensated diastolic heart failure. Patient's fluid status has been improving. We appreciate Dr. Nation's assistance. Today, patient's diuretics will be on hold. 3. Acute on chronic kidney disease. Patient has a creatinine baseline of 1.1. Patient's kidney function is starting to improve in the past 24 hours. Appreciate nephrology's recommendations. 4. Enterococcus faecalis urinary tract infection (UTI). On vancomycin. 5. Acute influenza infection. Patient received more than five days of Tamiflu and this will be discontinued. Clinically, patient is improving. 6. Diabetes. Levemir sliding scale. 7. History of arachnoiditis. 8. History of deep venous thrombosis (DVT) status post inferior vena cava (IVC). 9. Obstructive sleep apnea (MATT). On continuous positive airway pressure (CPAP) . 10. Deep venous thrombosis (DVT) prophylaxis. On heparin.
[2016-06-02] MEDS: SUCRALFATE 1 GM TAB PO SCH ×2 (08:30→21:53)
[2016-06-02] MEDS: HumaLOG INSULIN (NovoLOG) PER UNIT SC SCH ×4 (08:30→21:56)
[2016-06-02] MEDS: LACTULOSE 20 GM/30 ML SYRUP UD PO SCH ×2 (08:31→21:54)
[2016-06-02] MEDS: OMEPRAZOLE 20 MG CAP PO SCH ×2 (08:31→21:53)
[2016-06-02] MEDS: SENOKOT S TAB PO SCH ×2 (08:31→21:53)
[2016-06-02] MEDS: DOCUSATE SODIUM 100 MG CAP PO SCH ×2 (08:31→21:54)
[2016-06-02] MEDS: ASPIRIN 81 MG ENTERIC TAB PO SCH (08:31)
[2016-06-02] MEDS: METOCLOPRAMIDE 10 MG TAB PO SCH ×3 (08:31→21:53)
[2016-06-02] MEDS: PROMETHAZINE 25 MG TAB PO SCH ×3 (08:31→16:53)
[2016-06-02] MEDS: predniSONE 20 MG TAB PO SCH (08:32)
[2016-06-02] MEDS: guaiFENesin ER 600 MG TAB PO SCH ×2 (08:32→21:54)
[2016-06-02] MEDS: FLUoxetine 20 MG CAP PO SCH (08:32)
[2016-06-02] MEDS: BACLOFEN 10 MG TAB PO SCH ×2 (08:32→21:54)
[2016-06-02] MEDS: levETIRAcetam 250MG TABLET (KEPPRA) PO SCH ×4 (08:32→21:54)
[2016-06-02] MEDS: PREGABALIN 100 MG CAP (LYRICA) PO SCH ×3 (08:33→21:53)
[2016-06-02] MEDS: LEVEMIR (INSULIN DETEMIR) 1 UNITS/0.01ML SC SCH ×3 (08:33→21:56)
[2016-06-02] MEDS: BISOPROLOL FUMARATE 5 MG TAB PO SCH (08:36)
[2016-06-02] MEDS: SODIUM CHLORIDE 0.9% INJ 10 ML SYR IV SCH (08:37)
--- NOTE | 2016-06-02 12:30 | IPN ---
DATE OF VISIT: 06/02/2016 Ms. Stern is seen this morning on her bedside. She is complaining of worsening difficulty breathing. She continues to have cough but not able to bring up any phlegm. She denies any hemoptysis or pleuritic type of chest pain. She denies any nausea, vomiting, fever, or chills. Nursing staff reports that she barely pivots and transfers from bed to chair, but otherwise she does not walk. On physical examination, temperature 96 degrees Fahrenheit, heart rate 78 per minute, and respiratory rate 18 per minute. Blood pressure 158/65 mmHg and oxygen saturation 97% on 1-2 liters oxygen. Head is atraumatic. Oral mucosa is somewhat dry. Pupils are equal and reactive to light and sclerae anicteric. Ears, nose, and throat are unremarkable. Neck veins are not abnormally distended. Heart sounds are distant but regular. Lungs have only moderate air entry with bilateral wheezing and rhonchi. Abdomen: Obese and nontender. Bowel sounds are normal. Extremities have no cyanosis or clubbing. Skin has no rash or ulcers. Neurologically, she is awake and without a focal deficit. She is alert and oriented. Intake and output records from yesterday show a positive fluid balance of 950 mL. Today's laboratories show WBC count 5.7, hemoglobin 9.6, and hematocrit 33.5. Sodium 148 and potassium 3.9. BUN 18 and creatinine 1.23. Glucose 160 and calcium 8.7. PROBLEMS: 1. Hypernatremia. Sodium level is slightly improved. No diuretics given during last 48 hours. We will continue to monitor her electrolytes on daily basis. She was positive in fluid balance. Potassium level has improved with supplement. At present, no further intervention indicated. 2. Hypoxemia and difficulty breathing. This is mostly related to her chronic lung disease. I would suggest aggressive respiratory therapy with nebulizers, steroids, and antibiotics. I do not feel that hypervolemia is playing any role. 3. Chronic kidney disease. Kidney function is stable at about baseline now. 4. Generalized weakness and deconditioning. The patient is quite weak and not able to get up or walk by herself. I would recommend physical therapy evaluation. [facility]
[2016-06-02 14:00] VITALS: BP 136/63
--- NOTE | 2016-06-02 15:07 | REP ---
PORTABLE CHEST: AP portable view of the chest is performed and compared to prior study of 05/28/2016. Bilateral diffuse interstitial opacities are unchanged. There is cardiomegaly, unchanged. The mediastinal silhouette is unchanged. Right central venous catheter is seen with the tip in the right atrium. IMPRESSION: Stable chronic findings as above. Signed by Sami Mesa MD 06/02/2016 05:24 P
--- NOTE | 2016-06-02 16:54 | IPN ---
DATE: 06/02/2016 SUBJECTIVE: Patient seen and examined in the room today. Patient feels her coughing is improving. However, she continues to have congestion but it is difficult for her to bring up any sputum. Otherwise, no events reported. OBJECTIVE: VITAL SIGNS: Temperature is 96, pulse is 72, respirations 18, blood pressure is 160/65, pulse oximetry is 97% with one liter nasal cannula. HEENT: Normocephalic, atraumatic. Extraocular motor grossly intact. CARDIOVASCULAR: Positive S1, S2. Regular rate. LUNGS: Coarse lungs sounds bilaterally. Mild expiratory wheezes. ABDOMEN: Soft, nontender, nondistended. Bowel sounds present. No rebound. No guarding. EXTREMITIES: Chronic venous stasis changes. LABORATORY DATA: WBC is 5.7, hemoglobin 9.6, hematocrit 33.5, platelet count is 252. Sodium is 148, potassium is 3.9, chloride is 110, carbon dioxide is 31, BUN is 18, creatinine is 1.23, GFR is 45.8. Fasting glucose is 160, calcium is 8.7. ASSESSMENT AND PLAN: 1. Acute respiratory failure secondary to influenza. Patient has been on Tamiflu. Continue conservative medical management. Patient is able to maintain oxygen saturations with one liter nasal cannula but patient continues to complain about the feeling of difficulty breathing. Patient may use continuous positive airway pressure (CPAP) during the daytime for discomfort per Dr. Del Cid's recommendation and patient should continue using CPAP at night for her obstructive sleep apnea (MATT). 2. Acute decompensated diastolic congestive heart failure. Patient's fluid status is improving. We appreciate Dr. Nation's assistance. 3. Acute on chronic kidney disease. Baseline creatinine is 1.1. Patient's renal function continues to improve. Appreciate nephrology's recommendations. 4. Enterococcus faecalis urinary tract infection (UTI). On vancomycin. 5. Acute influenza infection. Patient finished a course of Tamiflu and it was discontinued. Continue to monitor the patient. 6. Diabetes. Levemir and sliding scale. 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 9. History of deep venous thrombosis (DVT) status post inferior vena cava (IVC) filter. 10. MATT. On CPAP. 11. DVT prophylaxis. On heparin.
[2016-06-02 22:00] VITALS: BP 140/70
[2016-06-02] MEDS: PERCOCET 5MG/325MG TAB PO PRN (22:05)
[2016-06-03] MEDS: IPRATROPIUM 0.5MG/ALBUTEROL 2.5MG INH SOL UD 3ML (DUONEB)(J7620) NEB SCH ×4 (04:00→11:31)
[2016-06-03] MEDS: HEPARIN SOD (PORCINE) 5000 UNITS/ML VIAL SC SCH (05:32)
[2016-06-03] MEDS: SODIUM CHLORIDE 0.9% INJ 10 ML SYR IV PRN (05:34)
[2016-06-03 06:00] VITALS: BP 129/63
[2016-06-03 06:03] LABS: MEAN CORPUSCULAR HEMOGLOBIN 24.6 pg (27.0-33.0); MEAN CORPUSCULAR HGB CONC 28.6 g/dl (32.0-36.5); RED CELL DISTRIBUTION WIDTH 17.5 % (11.5-14.5); WHITE BLOOD COUNT 6.9 K/mm3 (4.0-10.0)
[2016-06-03 09:22] LABS: CREATININE FOR GFR 1.16 MG/DL (0.55-1.02); POTASSIUM SERUM 4.2 MEQ/L (3.5-5.1)
[2016-06-03 09:23] LABS: CALCIUM LEVEL 8.5 MG/DL (8.8-10.2)
[2016-06-03] MEDS ORDERED: PRED10PA2 PO (09:28)
[2016-06-03] MEDS: LACTULOSE 20 GM/30 ML SYRUP UD PO SCH (09:56)
[2016-06-03] MEDS: SODIUM CHLORIDE 0.9% INJ 10 ML SYR IV SCH (09:56)
[2016-06-03] MEDS: METOCLOPRAMIDE 10 MG TAB PO SCH (09:57)
[2016-06-03] MEDS: ASPIRIN 81 MG ENTERIC TAB PO SCH (09:57)
[2016-06-03] MEDS: guaiFENesin ER 600 MG TAB PO SCH (09:57)
[2016-06-03] MEDS: SUCRALFATE 1 GM TAB PO SCH (09:57)
[2016-06-03] MEDS: BACLOFEN 10 MG TAB PO SCH (09:57)
[2016-06-03] MEDS: PROMETHAZINE 25 MG TAB PO SCH ×2 (09:57→12:05)
[2016-06-03] MEDS: FLUoxetine 20 MG CAP PO SCH (09:57)
[2016-06-03] MEDS: OMEPRAZOLE 20 MG CAP PO SCH (09:57)
[2016-06-03] MEDS: levETIRAcetam 250MG TABLET (KEPPRA) PO SCH ×2 (09:57→12:05)
[2016-06-03] MEDS: DOCUSATE SODIUM 100 MG CAP PO SCH (09:57)
[2016-06-03] MEDS: SENOKOT S TAB PO SCH (09:57)
[2016-06-03 09:58] VITALS: BP 129/63
[2016-06-03] MEDS: BISOPROLOL FUMARATE 5 MG TAB PO SCH (09:58)
[2016-06-03] MEDS: LEVEMIR (INSULIN DETEMIR) 1 UNITS/0.01ML SC SCH (09:58)
[2016-06-03] MEDS: HumaLOG INSULIN (NovoLOG) PER UNIT SC SCH ×2 (09:58→12:05)
[2016-06-03] MEDS: PREGABALIN 100 MG CAP (LYRICA) PO SCH (09:58)
[2016-06-03] MEDS: predniSONE 20 MG TAB PO SCH (09:59)
[2016-06-03] MEDS ORDERED: PRED10TA PO (10:13)
--- NOTE | 2016-06-03 17:55 | DSES ---
DATE OF ADMISSION: 05/23/2016 DATE OF DISCHARGE: 06/03/2016 PRIMARY CARE PROVIDER: Dr. Villalobos CONSULTANTS: Large Animal Veterinarian, Dr. Meek and Dr. Nation ADMISSION/DISCHARGE DIAGNOSES: 1. Acute respiratory failure secondary to influenza. 2. Influenza A infection. 3. Acute decompensated diastolic congestive heart failure (CHF). 4. Acute on chronic kidney injury. 5. Enterococcus faecalis urinary tract infection (UTI). 6. Diabetes. 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 9. Obstructive sleep apnea on continuous positive airway pressure (CPAP). 10. Deep vein thrombosis (DVT) status post IVC filter. 11. Morbid obesity. HOSPITALIZATION COURSE: The patient is a 70-year-old female who presented to [facility] on 05/23/2016 for acute respiratory failure. When the patient was seen in the emergency room, respiratory panel was ordered and the patient tested positive for influenza and Tamiflu was initiated. The patient was admitted to the progressive care unit (PCU). The patient was placed on droplet precautions. Initially, the patient also presented with lactic acidosis and the patient's diuretic was discontinued and she was started on supportive IV fluid. In the emergency room, the patient received IV Solu-Medrol, which later caused a difficult situation with controlling the patient's glucose level. Due to the worsening of the renal function, the record changer tester was consulted. The patient was determined to be severely dehydrated. Fluid level was adjusted by the record changer tester. Due to concern for influenza related pneumonia, the patient was started on empiric antibiotic with vancomycin while awaiting for the sputum culture results. Later, the patient's urine culture came back positive for Escherichia (E) coli, which was also sensitive to the vancomycin. The patient's respiratory symptoms continued to improve with Tamiflu with supportive care and vancomycin. However, initially with IV hydration, the patient's kidney function started to improve; however, later the patient started to show some sign of fluid overload and temporary Lasix diuresis had to be reinitiated. Once the patient reached euvolemic state, diuretic was discontinued. The patient continued to be under close monitoring. The patient was placed on 2.2 liter daily fluid restriction. On 06/02/2016, the patient was determined to be medically stable for discharge with recommendation to followup with the primary care provider within 1 week. The patient should hold off the use of diuretic, and the patient should be reevaluated by the record changer tester within 1 week. OBJECTIVE VITAL SIGNS: Temperature is 98, pulse is 67, respirations 20, blood pressure is 129/63, pulse oximetry is 95% with 2 liters nasal cannula. LABORATORY DATA: WBC 6.9, hemoglobin 8.8, hematocrit 30.7, platelet count is 225. Sodium is 146, potassium 4.2, chloride is 110, carbon dioxide is 27. BUN is 20, creatinine is 1.16, GFR is now 49, fasting glucose 184, calcium is 8.5. On 05/25/2016, the patient had an ABG showing pH of 7.326, PCO2 of 60.4, PO2 is 65.8, HDL3 is 30.8. Urinalysis on 05/24/2016 is positive for 2+ bacteria, negative nitrate, negative leukocyte esterase. Microbiology: Respiratory panel is positive for influenza AH3. Blood cultures negative after 5 days. Urine culture on 05/24/2016 showed Enterococcus faecalis. Sputum cultures on 05/25/2016 showed normal red. IMAGING STUDIES: Chest x-ray on 05/23/2016: Cannot exclude bibasilar opacity or pulmonary vascular congestion. Renal ultrasound on 05/25/2016 showed bladder grossly unremarkable. Some atrophy overall with 9.6 cm long right and 9.8 long left kidney without hydronephrosis, hydroureter, visible stone, cyst, or mass. CT of the chest without contrast showed bibasilar atelectatic change similar to the prior CT. Calcified granuloma on the right, unchanged. No significant interval changes from prior study. Chest x-ray on 05/27/2016 showed cardiomegaly with the findings to suggest pulmonary vascular congestion and interstitial edema. Cannot exclude a layering left effusion. DISCHARGE MEDICATIONS: - prednisone 10 mg by mouth daily for 4 tablets - Tylenol 650 mg by mouth every 4 hours as needed - ProAir one puff inhalation four times a day as needed - albuterol ipratropium inhalation four times a day as needed for shortness of breath - Amitiza 24 mcg by mouth at night - ammonium lactate one drop topically twice a day - aspirin 81 mg by mouth daily - Baclofen 20 mg by mouth twice a day - bisoprolol 2.5 mg by mouth daily - colchicine 0.6 mg by mouth daily - docusate sodium 100 mg by mouth twice a day - Fioricet/codeine 50/300/40/30 one capsule by mouth three times a day as needed for headache - fluoxetine 20 mg by mouth daily - Breo inhalation at night - Mucinex 600 mg by mouth twice a day as needed - NovoLog 16 units subcutaneously before food - Lantus 8 units injection twice a day - Keppra 500 mg by mouth four times a day - Reglan 10 mg by mouth three times a day - milk of magnesia 30 mL by mouth daily as needed - omeprazole 20 mg by mouth twice a day - Zofran 4 mg by mouth four times a day - potassium chloride 30 mEq by mouth twice a day - Lyrica 100 mg by mouth three times a day - promethazine 25 mg by mouth before food - scopolamine 1.5 mg topically every 72 hours as needed - Senokot two tablets by mouth twice a day - spironolactone 25 mg by mouth daily - sucralfate 1 gram by mouth twice a day - vitamin D 50,000 units by mouth weekly DISCHARGE INSTRUCTIONS: Discontinue line. Discharge home. Activity as tolerated. Consistent carbohydrate diet as tolerated. The patient will be on 2.2 liter fluid restriction. The patient should followup with primary care provider, Dr. Wilder, within 1 week. The patient should followup with record changer tester, Dr. Meek, within 1 week. Discharge condition: Stable. Discharge time: Greater than 30 minutes.
== END 2016-06-03 13:46 | disposition home health service (06) | DRG 193 ==
LOC: M ED 12:13 → M ED INP 16:58 → M PCU 21:49 → M MSPAV 05-24 13:58
PROVIDERS: ADMIT Internal Medicine; ATTEND Internal Medicine
DX: J10.00 Influenza due to other identified influenza virus with unspecified type of pneumonia (principal); J96.00 Acute respiratory failure, unspecified whether with hypoxia or hypercapnia; I50.33 Acute on chronic diastolic (congestive) heart failure; G03.1 Chronic meningitis; N17.9 Acute kidney failure, unspecified; Z68.41 Body mass index [BMI] 40.0-44.9, adult; N39.0 Urinary tract infection, site not specified; E87.0 Hyperosmolality and hypernatremia; E87.2 Acidosis; E66.01 Morbid (severe) obesity due to excess calories; G47.33 Obstructive sleep apnea (adult) (pediatric); N18.3 Chronic kidney disease, stage 3 (moderate); B95.2 Enterococcus as the cause of diseases classified elsewhere; J98.6 Disorders of diaphragm; E11.9 Type 2 diabetes mellitus without complications; Z86.718 Personal history of other venous thrombosis and embolism; Z88.0 Allergy status to penicillin; R07.89 Other chest pain; Z88.1 Allergy status to other antibiotic agents; Z88.2 Allergy status to sulfonamides; Z88.5 Allergy status to narcotic agent; Z88.8 Allergy status to other drugs, medicaments and biological substances; Z79.82 Long term (current) use of aspirin; Z79.899 Other long term (current) drug therapy; Z87.440 Personal history of urinary (tract) infections; Z90.710 Acquired absence of both cervix and uterus; Z99.3 Dependence on wheelchair

== ENCOUNTER 2016-06-11 14:52 | Inpatient (IN) | payer MEDICARE, MEDICAID ==
[~2016-06-11] VITALS: Ht 170.2 cm; Wt 123.7 kg
[2016-06-11] MEDS ORDERED: PRED10TA PO ×2 (15:13→17:04)
[2016-06-11 16:23] LABS: ABG BASE EXCESS -3.7 (-2.0-2.0); ABG HCO3 23.3 MEQ/L (22.0-26.0); ABG PARTIAL PRESSURE CO2 51.5 mmHg (35.0-45.0); ABG PARTIAL PRESSURE O2 101.9 mmHg (75.0-100.0); ABG STANDARD HCO3 21.4 MEQ/L (22.0-26.0); ABG TOTAL CO2 24.9 MEQ/L (23.0-31.0); ABG pH (ARTERIAL) 7.274 UNITS (7.350-7.450)
--- NOTE | 2016-06-11 16:35 | REP ---
Portable chest x-ray: Single view: History: Semi-erect AP view. Findings: EKG electrodes are seen. A central venous catheter is again noted with its tip in the expected location of the superior vena cava. There are two mediastinal clips to the left of midline as before. The lungs are less than optimally seen due to patient body habitus. Interstitial lung markings appear diffusely prominent as before. There are areas of increased density in both bases. I cannot exclude bibasilar infiltrates. Signed by Hua Wang MD 06/11/2016 05:19 P
[2016-06-11] MEDS ORDERED: ASPI1TAB PO (17:04)
[2016-06-11] MEDS ORDERED: MUCI600T34 PO (17:04)
[2016-06-11] MEDS ORDERED: BREO1INH INH (17:04)
[2016-06-11 17:18] LABS: BASO % 0.5 % (0.0-1.0); EOS % 0.3 % (0.0-3.0); LARGE UNSTAINED CELL # 0.2 K/mm3 (0.0-0.4); LARGE UNSTAINED CELL % 1.8 % (0.0-4.0); LYMPH # 1.2 K/mm3 (1.5-4.5); LYMPH % 13.3 % (24.0-44.0); MEAN CORPUSCULAR HEMOGLOBIN 24.5 pg (27.0-33.0); MEAN CORPUSCULAR HGB CONC 28.1 g/dl (32.0-36.5); MEAN CORPUSCULAR VOLUME 86.9 fl (80.0-96.0); MONO # 0.6 K/mm3 (0.0-0.8); MONO % 6.5 % (0.0-5.0); NEUTROPHILS # 7.1 K/mm3 (1.8-7.7); NEUTROPHILS % 77.5 % (36.0-66.0); PLATELET COUNT, AUTOMATED 230 k/mm3 (150-450); RED CELL DISTRIBUTION WIDTH 16.9 % (11.5-14.5); WHITE BLOOD COUNT 9.2 K/mm3 (4.0-10.0)
[2016-06-11 17:20] LABS: ADD MORPHOLOGY? YES
[2016-06-11 17:22] LABS: ALBUMIN 3.1 GM/DL (3.2-5.2); ALBUMIN/GLOBULIN RATIO 0.86 (1.00-1.93); ALKALINE PHOSPHATASE 106 U/L (45-117); ALT/SGPT 62 U/L (12-78); ANION GAP 3 MEQ/L (8-16); AST/SGOT 31 U/L (15-37); BILIRUBIN,DIRECT < 0.1 MG/DL (0.0-0.2); BILIRUBIN,TOTAL 0.2 MG/DL (0.2-1.0); BLOOD UREA NITROGEN 26 MG/DL (7-18); CALCIUM LEVEL 8.4 MG/DL (8.8-10.2); CARBON DIOXIDE LEVEL 27 MEQ/L (21-32); CHLORIDE LEVEL 114 MEQ/L (98-107); GLUCOSE, FASTING 250 MG/DL (83-110); SODIUM LEVEL 144 MEQ/L (136-145); TOTAL PROTEIN 6.7 GM/DL (6.4-8.2)
[2016-06-11 17:48] LABS: POTASSIUM SERUM 5.9 MEQ/L (3.5-5.1)
[2016-06-11 18:06] LABS: HYPOCHROMASIA 1+
[2016-06-11 18:07] LABS: ANISOCYTOSIS 1+
[2016-06-11] MEDS ORDERED: FUROSEMIDE 40 MG/4 ML VIAL (J1940) IV ONE (18:15)
[2016-06-11] MEDS ORDERED: IPRATROPIUM 0.5MG/ALBUTEROL 2.5MG INH SOL UD 3ML (DUONEB)(J7620) NEB ONE ×2 (18:30→19:30)
[2016-06-11] MEDS ORDERED: SCOPOLAMINE 1.5 MG TRANSDERMAL TOP PRN (22:45)
[2016-06-11] MEDS ORDERED: ALBUTEROL 90 MCG/ACT 8GM HFA INHALER INH PRN (22:45)
[2016-06-11 23:05] VITALS: BP 138/73
[2016-06-11] MEDS: LACTULOSE 20 GM/30 ML SYRUP UD PO SCH (23:36)
[2016-06-11] MEDS: PREGABALIN 100 MG CAP (LYRICA) PO SCH (23:37)
[2016-06-11] MEDS: BACLOFEN 10 MG TAB PO SCH (23:37)
[2016-06-11] MEDS: levETIRAcetam 250MG TABLET (KEPPRA) PO SCH (23:37)
[2016-06-11] MEDS: DOCUSATE SODIUM 100 MG CAP PO SCH (23:37)
[2016-06-11] MEDS: OMEPRAZOLE 20 MG CAP PO SCH (23:37)
[2016-06-11] MEDS: SENOKOT S TAB PO SCH (23:37)
--- NOTE | 2016-06-11 23:37 | HPEPDOC ---
General Date of Admission Jun 11, 2016 at 20:23 Primary Care Physician: Jr Villalobos Collins Attending Physician: GARRICK ZARATE MD Chief Complaint The patient is a 70-year-old female admitted with a reason for visit of Dyspnea. Source: Patient, RN notes reviewed, Old records Exam Limitations: No limitations Timing/Duration: This morning Severity: Moderate Associated Symptoms: Chest Pain, Cough, Fever, Headaches, Shortness of breath History of Present Illness Ms. Stern is a 70-year-old female who presents to [facility]'s emergency Department with shortness of breath. Past medical history is significant for chronic obstructive pulmonary disease, morbid obesity, arachnoiditis, irritable bowel syndrome, migraine, depression, hypertension, allergies, diabetes mellitus, gastroesophageal reflux disease, hypokalemia, vitamin D deficiency, chronic kidney disease stage III, deep venous thrombosis status post inferior vena cava filter, diastolic congestive heart failure, obstructive sleep apnea, recurrent urinary tract infections. Patient states that this morning she could not catch her breath, it hurt to breathe, and she could not talk secondary to increased shortness of breath. She feels like the shortness of breath has remained since her discharge on 2016. She states that only her CPAP would help with her breathing. She is unsure if any of the medications she is on help with her breathing since [facility] organizes her medications. She states that she has a productive cough, but is not bringing anything up nor does she have nausea or vomiting. She does complain of sharp, midsternal chest pain that is constant and low grade. Has associated back pain, chronic leg pain, and intermittent numbness and tingling. She states that her seems to think swelling in her legs is worse. She describes a headache, but no acute changes to vision and/ or hearing. Admits to a fever without night sweats or chills. Denies a sore throat. Is unsure if she has pain with ambulation she is wheelchair-bound. Does describe orthopnea even though she is unable to lie completely flat. Unsure if she has paroxysmal nocturnal dyspnea as she wears her CPAP which relieves her shortness of breath. Besides the review of systems listed above all others are negative. Patient was previously admitted on 05/23/2016 and discharged on 06/03/2016 with acute respiratory failure. She was found to have influenza and treated appropriately. During her inpatient admission she was supported with IV fluids and IV Solu-Medrol. Nephrology was consult did and they determined that she was severely dehydrated. Her urine culture returned and was positive for Escherichia coli. She was managed with vancomycin. She is also on a fluid restriction of 2200 mL. Hospitalist was consulted and patient was subsequently admitted. Home Medications Scheduled (Amitiza) 24 Mcg Cap 24 MCG PO QHS (Reported) (Ammonium Lactate) 12 % Cre 1 DOSE TOP BID (Reported) APPLY TO LEGS AND FEET (Colchicine) 0.6 Mg Tab 0.6 MG PO DAILY (Reported) Albuterol/Ipratropium (Ipratropium [place]/Albut 0.5-2.5 (3) mg/3Ml) 1 Radha Radha 1 RADHA INH QID (Reported) Aspirin (Aspirin 81) 81 Mg Tab 81 MG PO DAILY (Reported) Baclofen (Baclofen) 20 Mg Tab 20 MG PO BID (Reported) Bisoprolol Fumarate (Bisoprolol Fumarate) 5 Mg Tab 2.5 MG PO DAILY (Reported) Cranberry Extract (Cranberry) 500 Mg Cap 500 MG PO TID (Reported) Docusate Sodium (Docusate Sodium) 100 Mg Cap 100 MG PO BID (Reported) Fluoxetine Hcl (Fluoxetine) 20 Mg Cap 20 MG PO DAILY (Reported) Fluticasone/Vilanterol (Breo Ellipta 100-25 Mcg/INH) 1 Inh Inh 1 PUFF INH QHS ( Reported) Insulin Aspart (Novolog) 100 U/Ml Inj 16 UNITS SC AC (Reported) Insulin Glargine (Lantus) 100 Unit/Ml Inj 78 UNIT INJ BID (Reported) Lactulose (Lactulose) 10 Gm/15 Ml Radha 30 ML PO BID (Reported) MIX WITH JUICE Levetiracetam (Keppra) 500 Mg Tab 500 MG PO QID (Reported) Metoclopramide HCl (Reglan) 10 Mg Tab 10 MG PO TID (Reported) Omeprazole (Omeprazole) 20 Mg Cap 20 MG PO BID (Reported) Ondansetron HCl (Zofran) 4 Mg Tab 4 MG PO QID (Reported) Potassium Chloride (Potassium Chloride ER) 10 Meq Cap 30 MEQ PO TID (Reported) Prednisone (Prednisone) 10 Mg Tab 20 MG PO ASDIRECTED (Reported) TAPER DOSE, FILLED 3/6/17 FOR 15 DAYS. 20MG DAILY FOR 5 DAYS THEN 10MG FOR 10 DAYS. DUE TO START 10MG 06/12/16 Pregabalin (Lyrica) 100 Mg Cap 100 MG PO TID (Reported) Promethazine HCl (Promethazine HCl) 25 Mg Tab 25 MG PO AC (Reported) Senna (Senokot) 8.6 Mg Tab 2 TAB PO BID (Reported) Spironolactone (Aldactone) 25 Mg Tab 25 MG PO DAILY (Reported) Sucralfate (Sucralfate) 1 Gm Tab 1 GM PO BID (Reported) Vitamin D (Drisdol) 50,000 Unit Cap 50,000 UNIT PO QWEEK (Reported) ON TUESDAY Scheduled PRN (Fioricet/Codeine [phone] mg) 1 Cap Cap 1 CAP PO TID PRN PRN HEADACHE ( Reported) Acetaminophen (Tylenol) 325 Mg Tab 650 MG PO Q4H PRN PRN PAIN / FEVER (Reported ) Albuterol Sulfate (Proair Hfa) 108 Mcg/Act Aer 1 PUFF INH QID PRN PRN SHORTNESS OF BREATH (Reported) Guaifenesin (Mucinex) 600 Mg Tab 600 MG PO BID PRN PRN CONGESTION (Reported) Milk Of Magnesia (Milk of Magnesia) 1,200 Mg/15 Ml Esperanza 30 ML PO DAILY PRN PRN CONSTIPATION (Reported) Scopolamine (Transderm-Scop) 1.5 Mg Dis 1.5 MG TOP Q72H PRN PRN NAUSEA (Reported ) Allergies Coded Allergies: Cephalosporins (Verified Allergy, Intermediate, KEFLEX - HIVES, 05/24/16) Chlorpromazine (Verified Allergy, Intermediate, HIVES, 05/24/16) Loratadine (Verified Allergy, Intermediate, HIVES, 05/24/16) Penicillins (Verified Allergy, Intermediate, HIVES, 05/24/16) Pentazocine (Verified Allergy, Intermediate, HIVES, 05/24/16) Sulfa Antibiotics (Unverified Allergy, Intermediate, HIVES, 05/24/16) Iodine (Verified Allergy, Unknown, 07/05/12) Methadone (Verified Allergy, Unknown, 07/05/12) Fluticasone (Verified Adverse Reaction, Mild, THRUSH, 07/05/12) Latex (Verified Adverse Reaction, Mild, RISK, 05/24/16) Salmeterol (Verified Adverse Reaction, Mild, THRUSH, 07/05/12) Past Medical History Medical History 1. Chronic obstructive pulmonary disease on 2 L of oxygen via nasal cannula 2. Irritable bowel syndrome 3. Migraine 4. Depression 5. Hypertension 6. Allergies 7. Diabetes mellitus 8. Gastroesophageal reflux disease 9. Hypokalemia 10. Vitamin D deficiency 11. Chronic kidney disease, stage III 12. Deep venous thrombosis status post inferior vena cava filter 13. Diastolic congestive heart failure 14. Morbid obesity 15. Arachnoiditis 17. Obstructive sleep apnea with CPAP 18. Recurrent urinary tract infections Surgical History 1. Central venous catheter placed approximately 8 months ago 2. Inferior vena cava filter placement secondary to deep venous thrombosis placed approximately a year ago 3. Right hip surgery 4. Right knee surgery 5. Hysterectomy 6. Lung surgery 7. Back surgery 8. Left ankle surgery 9. Tonsillectomy Social History * Smoker: Denies Alcohol: Denies Drugs: denies Recent Travel/Sick Contacts: Denies: Recent sick contacts, Recent travel Lives independently at home with Adult children that live out of the home No pets No travel history No environmental exposures Appears to enjoy arts and crafts as a hobby Review of Symptoms Constitutional: Reports: Fever, Denies: Chills, Night Sweats Eyes: Denies: Vision change ENT: Reports: Head Aches, Denies: Sore Throat Skin: Denies: Lesions, Rash Pulmonary: Reports: Cough, Dyspnea, Pleuritic Chest Pain (sharp, midsternal) Cardiovascular: Reports: Chest Pain (sharp, midsternal), Orthopnea, Denies: Paroxysmal Noc. Dyspnea Gastrointestinal: Reports: Diarrhea, Denies: Abdominal Pain, Constipation, Hematochezia, Melena, Nausea, Vomiting Genitourinary: Reports: Dysuria, Denies: Hematuria Hematologic: Denies: Bruising Musculoskeletal: Reports: Back Pain, Leg Pain Neurological: Reports: Numbness Physical Examination General Exam: Positive: Alert, Cooperative, Moderate Distress Eye Exam: Positive: Conjunctiva & lids normal, EOMI, PERRLA, Negative: Sclera icteric ENT Exam: Positive: Atraumatic, Nares Patent, Tongue Midline, Negative: Mucous membr. moist/pink Neck Exam: Positive: Supple, Negative: JVD, Lymphadenopathy, thyromegaly Chest Exam: Positive: Rhonchi Heart Exam: Positive: Normal S1, Normal S2, Rate Normal, Regular Rhythm Telemetry: Positive: No significant arrhythmia Abdomen Exam: Positive: BS Hypoactive, Soft, Negative: Hepatospenomegaly, Tenderness Extremity Exam: Positive: Normal pulses, Tenderness (to palpation), Negative: Clubbing, Cyanosis, Edema Skin Exam: Positive: Nl turgor and temperature Neuro Exam: Positive: Normal Speech, Negative: Strength at 5/5 X4 ext (decreased strength in upper and lower extremities bilaterally, 4/5) Vital Signs T 98.8 HR 70 RR 16 BP 137/64 O2 96% on room air Height (in): 67 Weight (kg): 123.377 BMI (kg): 42.6 Laboratory Data Labs 24H Laboratory Tests 2 06/11/16 16:05: Arterial Blood pH 7.274L, Arterial Blood Partial Pressure CO2 51.5H, Arterial Blood Partial Pressure O2 101.9H, Arterial Blood Total CO2 24.9, Arterial Blood HCO3 23.3, Arterial Blood Base Excess -3.7L, Arterial Blood Oxygen Saturation 97.3, Blood Gas Bicarbonate Standard 21.4L 06/11/16 16:38: Aspartate Amino Transf (AST/SGOT) 31, Alanine Aminotransferase (ALT/SGPT) 62, Alkaline Phosphatase 106, Total Bilirubin 0.2, Direct Bilirubin < 0.1, Albumin 3.1L, Albumin/Globulin Ratio 0.86L, Anion Gap 3L, Anisocytosis 1+, B-Type Natriuretic Peptide 153H, White Blood Count 9.2, Red Blood Count 3.90L, Hemoglobin 9.5L, Hematocrit 33.9L, Mean Corpuscular Volume 86.9, Mean Corpuscular Hemoglobin 24.5L, Mean Corpuscular Hemoglobin Concent 28.1L, Red Cell Distribution Width 16.9H, Platelet Count 230, Neutrophils (%) (Auto) 77.5H , Lymphocytes (%) (Auto) 13.3L, Monocytes (%) (Auto) 6.5H, Eosinophils (%) (Auto ) 0.3, Basophils (%) (Auto) 0.5, Neutrophils # (Auto) 7.1, Lymphocytes # (Auto) 1.2L, Monocytes # (Auto) 0.6, Eosinophils # (Auto) 0.0, Basophils # (Auto) 0.0, Calcium Level 8.4L, Creatine Kinase MB 1.0, Creatine Kinase MB Relative Index 3.33, Glomerular Filtration Rate 43.0, Hypochromasia 1+, Large Unclassified Cells # 0.2, Large Unclassified Cells % 1.8, Platelet Estimate NORMAL, Thyroid Stimulating Hormone (TSH) 0.340L, Total Creatine Kinase 30, Total Protein 6.7, Troponin I < 0.02 06/11/16 16:39: Lactic Acid (Sepsis) 1.0 CBC/BMP Laboratory Tests 06/11/16 16:38 Red Blood Count 3.90 L, Mean Corpuscular Volume 86.9, Mean Corpuscular Hemoglobin 24.5 L, Mean Corpuscular Hemoglobin Concent 28.1 L, Red Cell Distribution Width 16.9 H, Neutrophils (%) (Auto) 77.5 H, Lymphocytes (%) (Auto ) 13.3 L, Monocytes (%) (Auto) 6.5 H, Eosinophils (%) (Auto) 0.3, Basophils (%) (Auto) 0.5, Neutrophils # (Auto) 7.1, Lymphocytes # (Auto) 1.2 L, Monocytes # ( Auto) 0.6, Eosinophils # (Auto) 0.0, Basophils # (Auto) 0.0 Microbiology Microbiology 06/11/16 Blood Culture, Received Pending 06/11/16 Blood Culture, Received Pending 06/11/16 Respiratory Virus Panel (PCR) (GORDY) - Final, Complete RAD Interpretation STUDY: CXR Rad Actions: Report Reviewed (cannot exclude bibasilar infiltrates) Assessment/Plan 70-year-old female who presents with shortness of breath likely secondary to pulmonary edema. Problems (1) SOB (shortness of breath) Status: Acute Problem Text: Patient's acute shortness of breath likely secondary to pulmonary edema Will place patient on 40 mg Lasix IV twice a day Will monitor strict ins and outs Will place patient on 60 mg IV Solu-Medrol every [address] patient on a 2200 fluid restriction Monitor daily labs and vital signs Rest to panel was negative BNP was 153 Obtaining blood cultures and urine cultures (2) Hyperkalemia Status: Acute Problem Text: Patient's potassium is 5.9 Patient does take spironolactone and potassium supplementation as an outpatient We have held these medications at this time secondary to her hyperkalemia We'll obtain an EKG to monitor for hypokalemic derangements EKG at time of admission showed normal sinus rhythm (3) Anemia Status: Acute Problem Text: Patient's hemoglobin and hematocrit are 9.5 and 33.9, respectively Patient's H&H has been steadily decreasing Will attempt to obtain consent for blood transfusion Will hold transfusing blood at this time until the precipitous drop in H&H is noted (4) Decreased thyroid stimulating hormone (TSH) level Status: Acute Problem Text: TSH 0.34 Will obtain free T4 (5) Dysuria Status: Chronic Problem Text: Patient does complain of dysuria and does have a history of recurrent urinary tract infections On prior admission patient did have a diagnosis of Escherichia coli on urine culture and was treated with vancomycin Will obtain urinalysis and urine culture and will treat if associated culture returns positive (6) CKD (chronic kidney disease) Status: Chronic Problem Text: BUN and creatinine are 26 and 1.3, respectively Will monitor with daily BMP Place patient on 2200 fluid restriction (7) MATT (obstructive sleep apnea) Status: Chronic Problem Text: Acceptable for patient to use home CPAP machine Plan / VTE VTE Prophylaxis Ordered?: Yes (heparin) Plan Plan Acute dyspnea/shortness of breath like he secondary to pulmonary edema - Administer Lasix and Solu-Medrol IV - Monitor strict ins and outs - 2200 mL fluid restriction Hyperkalemia - Hold spironolactone and potassium supplementation - Obtain follow-up EKG Diabetes mellitus - Cover with Levemir 78 twice daily - Obtain fingersticks before meals and at bedtime Anemia - H&H is 9.5 and 33.9, respectively - Obtain consent for blood transfusion - Hold transfusing blood at this time until precipitous drop in H&H is noted Chronic kidney disease - Monitor with BMP - Creatinine is 1.3 Decreased TSH level - Obtain free T4 level Obstructive sleep apnea - Okay for patient to use home CPAP machine Recurrent urinary tract infection - Patient does complain of dysuria - We will obtain urinalysis and urine culture and will treat accordingly Patient on 2 g sodium-consistent carbohydrate diet Disposition Admit to the PCU Anticipate hospitalization: 2 nights Diet: Continue Current Activity: Continue Current Diagnostics: Check Labs, Repeat Labs in AM, Obtain Cultures Anticipated Discharge: Home KALEY DIAZ Jun 11, 2016 23:36 KALEY DIAZ Jun 11, 2016 23:36
[2016-06-11] MEDS: SUCRALFATE 1 GM TAB PO SCH (23:38)
[2016-06-11] MEDS: guaiFENesin ER 600 MG TAB PO PRN (23:38)
[2016-06-11] MEDS: ONDANSETRON 4 MG TAB (S0181) PO SCH (23:38)
[2016-06-11] MEDS: METOCLOPRAMIDE 10 MG TAB PO SCH (23:38)
[2016-06-11] MEDS ORDERED: DEXTROSE 50% 50 ML SYRINGE IV PRN (23:45)
[2016-06-11] MEDS ORDERED: GLUCOSE 4 GM CHEW TABLET PO PRN (23:45)
[2016-06-11] MEDS ORDERED: GLUCAGON FOR INJ 1 MG VIAL (J1610) SC PRN (23:45)
[2016-06-12] MEDS: LEVEMIR (INSULIN DETEMIR) 1 UNITS/0.01ML SC SCH ×3 (00:22→21:53)
[2016-06-12] MEDS: methylPREDNISolone INJ 125 MG/2 ML VIAL (J2930) IV SCH ×2 (00:22→05:45)
[2016-06-12] MEDS: ACETAMINOPHEN 325 MG TAB PO PRN ×3 (00:48→21:55)
[2016-06-12 04:00] VITALS: BP 121/62
[2016-06-12] MEDS: SODIUM CHLORIDE 0.9% INJ 10 ML SYR IV PRN ×4 (05:46→21:54)
[2016-06-12] MEDS: HEPARIN SOD (PORCINE) 5000 UNITS/ML VIAL SC SCH ×3 (05:46→21:52)
[2016-06-12 06:13] LABS: MEAN CORPUSCULAR HEMOGLOBIN 24.7 pg (27.0-33.0); MEAN CORPUSCULAR HGB CONC 28.5 g/dl (32.0-36.5); MEAN CORPUSCULAR VOLUME 86.6 fl (80.0-96.0); RED CELL DISTRIBUTION WIDTH 16.9 % (11.5-14.5); WHITE BLOOD COUNT 7.8 K/mm3 (4.0-10.0)
[2016-06-12 06:24] LABS: CALCIUM LEVEL 8.4 MG/DL (8.8-10.2); CREATININE FOR GFR 1.35 MG/DL (0.55-1.02); GLOMERULAR FILTRATION RATE 41.2 (>39)
[2016-06-12 06:27] LABS: POTASSIUM SERUM 5.3 MEQ/L (3.5-5.1)
--- NOTE | 2016-06-12 07:29 | REP ---
REASON: Dyspnea. The lack of intravenous contrast decreases the sensitivity of the exam. Comparison chest CT 05/25/2016 which showed bibasilar subsegmental atelectatic changes similar to a prior CT of 05/14/2016. The mediastinum and pulmonary harshad are unchanged. Benign mediastinal and right hilar calcifications are again seen status quo. There are no pleural or pericardial effusions. There is respiratory motion artifact. There is no significant change in the appearance of the imaged upper abdomen or imaged osseous structures. Evaluation of the lung diaz show respiratory motion artifact. Scattered asymmetric densities are again see throughout both lung diaz with basilar predominance, status quo. These densities could easily obscure a significant pulmonary nodule. The degree of respiratory motion artifact could also obscure a pulmonary nodule. There does not appear to be a significant change in the appearance of the lung diaz. Once again, there is a metallic density seen in the left posterior hemithorax of uncertain etiology. This needs to be correlated clinically. It is unchanged, not only from the latest prior but from older exams as well. IMPRESSION: No significant change in the appearance of the chest with findings as described above. There is no Fleischner Society criteria on the recommendation for followup of such findings. Followup should be based on clinical assessment and pulmonary consultation of necessary. Signed by Garett Olsen DO 06/12/2016 10:04 A
[2016-06-12 08:00] VITALS: BP 134/67
[2016-06-12] MEDS: LACTULOSE 20 GM/30 ML SYRUP UD PO SCH ×2 (08:57→21:51)
[2016-06-12] MEDS: METOCLOPRAMIDE 10 MG TAB PO SCH ×3 (08:58→21:54)
[2016-06-12] MEDS: HumaLOG INSULIN (NovoLOG) PER UNIT SC SCH ×4 (08:58→21:52)
[2016-06-12] MEDS: PROMETHAZINE 25 MG TAB PO SCH ×3 (08:58→16:22)
[2016-06-12] MEDS: SUCRALFATE 1 GM TAB PO SCH ×2 (08:59→21:54)
[2016-06-12] MEDS: OMEPRAZOLE 20 MG CAP PO SCH ×2 (08:59→21:54)
[2016-06-12] MEDS: PREGABALIN 100 MG CAP (LYRICA) PO SCH ×3 (08:59→21:54)
[2016-06-12] MEDS: DOCUSATE SODIUM 100 MG CAP PO SCH ×2 (08:59→21:54)
[2016-06-12] MEDS: ONDANSETRON 4 MG TAB (S0181) PO SCH ×4 (08:59→21:55)
[2016-06-12] MEDS: COLCHICINE 0.6 MG TAB PO SCH (08:59)
[2016-06-12] MEDS: FLUoxetine 20 MG CAP PO SCH (08:59)
[2016-06-12] MEDS: BISOPROLOL FUMARATE 5 MG TAB PO SCH (08:59)
[2016-06-12] MEDS: levETIRAcetam 250MG TABLET (KEPPRA) PO SCH ×4 (08:59→21:54)
[2016-06-12] MEDS: BACLOFEN 10 MG TAB PO SCH ×2 (09:00→21:54)
[2016-06-12] MEDS: ASPIRIN 81 MG ENTERIC TAB PO SCH (09:00)
[2016-06-12] MEDS ORDERED: FUROSEMIDE 40 MG/4 ML VIAL (J1940) IV SCH (09:00)
[2016-06-12] MEDS: SENOKOT S TAB PO SCH ×2 (09:00→21:55)
[2016-06-12] MEDS: SODIUM CHLORIDE 0.9% INJ 10 ML SYR IV SCH (09:01)
--- NOTE | 2016-06-12 09:09 | ECGEPIP ---
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
[2016-06-12 12:00] VITALS: BP 146/66
--- NOTE | 2016-06-12 12:36 | IPNPDOC ---
Text Note Date of Service The patient was seen on 06/12/16. NOTE Subjective: Increased SOB, LE swelling after her d/c. No CP/ palpations. Objective: Vitals: (see below) General: No acute distress, laying comfortably in bed. HEENT: Dry mucous membranes. Neck: No JVD or lymphadenopathy Cardiac: RRR, No murmurs Pulm: Coarse crackles at the bases b/l. No Rhonchi bilaterally. Abd: NT/ND + BS Ext: Trace edema bilateral lower extremity. No cyanosis Labs (see below) Images: CT Chest 05/25/16 Impression: Bibasilar atelectatic changes, similar to the prior CT. Calcified granulomas on the right, unchanged. There is an indwelling central venous catheter with the tip in the right atrium in satisfactory location, unchanged. Sequela of prior fractures versus foreign bodies posteriorly on the right. Foreign bodies posteriorly on the left. No significant interval change from the prior studies. Echo 04/2015 2D COMMENTS: 1. Technically limited study due to poor acoustic window. 2. The left ventricular size is normal with a normal left ventricular wall thickness. Left ventricular systolic function is normal with an estimated LV systolic ejection fraction of 60% to 65%. 3. Mildly enlarged left atrium. The right atrium and the right ventricle appear to be normal in limited views. 4. Normal aortic root. 5. No pericardial effusion noted in limited views. 6. Minimally calcified aortic valve, leaflet excursion was not well visualized. The mitral valve leaflets as well as the tricuspid valve leaflets appeared to be normal in limited views. 7. The inferior vena cava was not visualized. DOPPLER: It detects trace mitral regurgitation and mild tricuspid regurgitation. The calculated pulmonary artery systolic pressure varies between 30 to 40 mmHg. Abnormal relaxation pattern was noted across the mitral valve annulus, left ventricular end-diastolic pressure might be elevated. IMPRESSION: 1. Technically limited study due to poor acoustic window. 2. Normal global left ventricular systolic function. There are features of left ventricular diastolic dysfunction. 3. Trace mitral regurgitation with a mildly enlarged left atrium. The dilated left atrium may be secondary to underlying left ventricular diastolic dysfunction because there is no significant mitral regurgitation. 4. Trace to mild tricuspid regurgitation with mild pulmonary hypertension. Assessment/Plan 1. Acute respiratory distress secondary decompensated diastolic heart failure and COPD exacerbation. Improving. Recently admitted with influenza. Restarted on Torsemide. Cont steroids. 2. Acute Decompensated Diastolic HF- improved. cont torsemide and Lasix. 3. Chronic kidney disease, baseline creatinine of 1.1. Avoid nephrotoxins 4 History of arachnoiditis- stable 5. Musculoskeletal chest pain, resolved 6.Diabetes mellitus - Cont Levemir 7. History of DVT status post IVC 8. MATT on CPAP DVT prophy: Heparin subcutaneous VS,Fishbone, I+O VS, Fishbone, I+O Laboratory Tests 06/11/16 16:38 Red Blood Count 3.90 L, Mean Corpuscular Volume 86.9, Mean Corpuscular Hemoglobin 24.5 L, Mean Corpuscular Hemoglobin Concent 28.1 L, Red Cell Distribution Width 16.9 H, Neutrophils (%) (Auto) 77.5 H, Lymphocytes (%) (Auto ) 13.3 L, Monocytes (%) (Auto) 6.5 H, Eosinophils (%) (Auto) 0.3, Basophils (%) (Auto) 0.5, Neutrophils # (Auto) 7.1, Lymphocytes # (Auto) 1.2 L, Monocytes # ( Auto) 0.6, Eosinophils # (Auto) 0.0, Basophils # (Auto) 0.0 06/12/16 05:48 Red Blood Count 3.72 L, Mean Corpuscular Volume 86.6, Mean Corpuscular Hemoglobin 24.7 L, Mean Corpuscular Hemoglobin Concent 28.5 L, Red Cell Distribution Width 16.9 H, Calcium Level 8.4 L Vital Signs Date Time Temp Pulse Resp B/P Pulse Ox O2 Delivery O2 Flow Rate FiO2 06/12/16 08:59 61 121/62 06/12/16 08:00 96.6 20 94 Nasal Cannula 2.0 I&O- Last 24 Hours up to 6 AM 06/12/16 05:59 Output Total 5300 ml Balance -5300 ml KEARA MCGHEE MD Jun 12, 2016 12:36
[2016-06-12] MEDS: methylPREDNISolone INJ 40 MG/1 ML VIAL (J2920) IV SCH ×2 (14:29→21:51)
--- NOTE | 2016-06-12 14:53 | ECGEPIP ---
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
[2016-06-12] MEDS: TORSEMIDE (DEMADEX) 50 MG PER 1/2 TAB PO SCH (15:59)
[2016-06-12 16:00] VITALS: BP 149/82
[2016-06-12] MEDS: guaiFENesin ER 600 MG TAB PO PRN (16:21)
[2016-06-12] MEDS: IPRATROPIUM 0.5MG/ALBUTEROL 2.5MG INH SOL UD 3ML (DUONEB)(J7620) INH SCH ×2 (16:24→19:22)
[2016-06-12 18:48] LABS: CALCIUM LEVEL 8.3 MG/DL (8.8-10.2); CREATININE FOR GFR 1.61 MG/DL (0.55-1.02); GLOMERULAR FILTRATION RATE 33.6 (>39); MAGNESIUM LEVEL 2.2 MG/DL (1.8-2.4)
[2016-06-12 20:00] VITALS: BP 144/68
[2016-06-13] VITALS: BP 132/60
[2016-06-13 04:00] VITALS: BP 144/63
[2016-06-13] MEDS: HEPARIN SOD (PORCINE) 5000 UNITS/ML VIAL SC SCH ×3 (05:10→21:37)
[2016-06-13] MEDS: methylPREDNISolone INJ 40 MG/1 ML VIAL (J2920) IV SCH (05:10)
[2016-06-13] MEDS: SODIUM CHLORIDE 0.9% INJ 10 ML SYR IV PRN ×2 (05:11→17:38)
[2016-06-13 05:55] LABS: MEAN CORPUSCULAR HEMOGLOBIN 25.2 pg (27.0-33.0); MEAN CORPUSCULAR VOLUME 86.7 fl (80.0-96.0); WHITE BLOOD COUNT 5.3 K/mm3 (4.0-10.0)
[2016-06-13 06:02] LABS: CALCIUM LEVEL 8.3 MG/DL (8.8-10.2); CREATININE FOR GFR 1.7 MG/DL (0.55-1.02); GLOMERULAR FILTRATION RATE 31.5 (>39); POTASSIUM SERUM 4.5 MEQ/L (3.5-5.1)
[2016-06-13] MEDS: IPRATROPIUM 0.5MG/ALBUTEROL 2.5MG INH SOL UD 3ML (DUONEB)(J7620) INH SCH ×4 (07:26→19:19)
[2016-06-13 08:00] VITALS: BP 152/74
[2016-06-13] MEDS: PROMETHAZINE 25 MG TAB PO SCH ×3 (08:36→17:37)
[2016-06-13] MEDS: HumaLOG INSULIN (NovoLOG) PER UNIT SC SCH ×4 (08:36→21:00)
[2016-06-13] MEDS: COLCHICINE 0.6 MG TAB PO SCH (08:36)
[2016-06-13] MEDS: SENOKOT S TAB PO SCH ×2 (08:37→21:35)
[2016-06-13] MEDS: levETIRAcetam 250MG TABLET (KEPPRA) PO SCH ×4 (08:37→21:35)
[2016-06-13] MEDS: ONDANSETRON 4 MG TAB (S0181) PO SCH ×4 (08:37→21:35)
[2016-06-13] MEDS: ASPIRIN 81 MG ENTERIC TAB PO SCH (08:37)
[2016-06-13] MEDS: TORSEMIDE (DEMADEX) 50 MG PER 1/2 TAB PO SCH (08:37)
[2016-06-13] MEDS: METOCLOPRAMIDE 10 MG TAB PO SCH ×3 (08:37→21:35)
[2016-06-13] MEDS: PREGABALIN 100 MG CAP (LYRICA) PO SCH ×3 (08:38→21:35)
[2016-06-13] MEDS: SUCRALFATE 1 GM TAB PO SCH ×2 (08:38→21:35)
[2016-06-13] MEDS: OMEPRAZOLE 20 MG CAP PO SCH ×2 (08:38→21:00)
[2016-06-13] MEDS: BACLOFEN 10 MG TAB PO SCH ×2 (08:38→21:35)
[2016-06-13] MEDS: DOCUSATE SODIUM 100 MG CAP PO SCH ×2 (08:38→21:36)
[2016-06-13] MEDS: FLUoxetine 20 MG CAP PO SCH (08:38)
[2016-06-13] MEDS: LEVEMIR (INSULIN DETEMIR) 1 UNITS/0.01ML SC SCH (08:40)
[2016-06-13] MEDS: BISOPROLOL FUMARATE 5 MG TAB PO SCH (08:40)
[2016-06-13] MEDS: LACTULOSE 20 GM/30 ML SYRUP UD PO SCH ×2 (08:44→21:36)
[2016-06-13] MEDS: SODIUM CHLORIDE 0.9% INJ 10 ML SYR IV SCH (08:44)
[2016-06-13] MEDS ORDERED: LEVEMIR (INSULIN DETEMIR) 1 UNITS/0.01ML SC ONE ×2 (09:15→19:00)
[2016-06-13] MEDS: predniSONE 20 MG TAB PO SCH (10:14)
[2016-06-13 12:00] VITALS: BP 144/67
[2016-06-13] MEDS: ACETAMINOPHEN 325 MG TAB PO PRN (13:38)
[2016-06-13 14:00] VITALS: BP 141/67
--- NOTE | 2016-06-13 15:20 | IPNPDOC ---
Text Note Date of Service The patient was seen on 06/13/16. NOTE Subjective: Dyspnea and edema improved. No CP/ palpations. Objective: Vitals: (see below) General: No acute distress, laying comfortably in bed. HEENT: Dry mucous membranes. Neck: No JVD or lymphadenopathy Cardiac: RRR, No murmurs Pulm: Coarse crackles at the bases b/l. No Rhonchi bilaterally. Abd: NT/ND + BS Ext: Trace edema bilateral lower extremity. No cyanosis Labs (see below) Images: CT Chest 05/25/16 Impression: Bibasilar atelectatic changes, similar to the prior CT. Calcified granulomas on the right, unchanged. There is an indwelling central venous catheter with the tip in the right atrium in satisfactory location, unchanged. Sequela of prior fractures versus foreign bodies posteriorly on the right. Foreign bodies posteriorly on the left. No significant interval change from the prior studies. Echo 04/2015 2D COMMENTS: 1. Technically limited study due to poor acoustic window. 2. The left ventricular size is normal with a normal left ventricular wall thickness. Left ventricular systolic function is normal with an estimated LV systolic ejection fraction of 60% to 65%. 3. Mildly enlarged left atrium. The right atrium and the right ventricle appear to be normal in limited views. 4. Normal aortic root. 5. No pericardial effusion noted in limited views. 6. Minimally calcified aortic valve, leaflet excursion was not well visualized. The mitral valve leaflets as well as the tricuspid valve leaflets appeared to be normal in limited views. 7. The inferior vena cava was not visualized. DOPPLER: It detects trace mitral regurgitation and mild tricuspid regurgitation. The calculated pulmonary artery systolic pressure varies between 30 to 40 mmHg. Abnormal relaxation pattern was noted across the mitral valve annulus, left ventricular end-diastolic pressure might be elevated. IMPRESSION: 1. Technically limited study due to poor acoustic window. 2. Normal global left ventricular systolic function. There are features of left ventricular diastolic dysfunction. 3. Trace mitral regurgitation with a mildly enlarged left atrium. The dilated left atrium may be secondary to underlying left ventricular diastolic dysfunction because there is no significant mitral regurgitation. 4. Trace to mild tricuspid regurgitation with mild pulmonary hypertension. Assessment/Plan 1. Acute respiratory distress secondary decompensated diastolic heart failure and COPD exacerbation. Improving. Recently admitted with influenza. Diuresed well on Torsemide/lasix. Cont steroids. 2. Acute Decompensated Diastolic HF- improved. Diuresed well on torsemide/ Lasix. 3. Chronic kidney disease, baseline creatinine of 1.1. Now 1.7. Will hold torsemide as pt diuresed well. Avoid nephrotoxins 4 History of arachnoiditis- stable 5. Musculoskeletal chest pain, resolved 6.Diabetes mellitus - Cont Levemir; increased dose to 100 BID; states BS have been 150-200 at home on 78 BID, although steroids have increased BS. Solumedrol changed to prednisone. SSI. 7. History of DVT status post IVC 8. MATT on CPAP DVT prophy: Heparin subcutaneous VS,Fishbone, I+O VS, Fishbone, I+O Laboratory Tests 06/12/16 17:24 Calcium Level 8.3 L 06/13/16 05:14 Calcium Level 8.3 L, Red Blood Count 3.64 L, Mean Corpuscular Volume 86.7, Mean Corpuscular Hemoglobin 25.2 L, Mean Corpuscular Hemoglobin Concent 29.0 L, Red Cell Distribution Width 17.0 H Vital Signs Date Time Temp Pulse Resp B/P Pulse Ox O2 Delivery O2 Flow Rate FiO2 06/13/16 12:00 95.7 74 20 144/67 90 Nasal Cannula 2.0 I&O- Last 24 Hours up to 6 AM 06/13/16 06:00 Intake Total 1800 ml Output Total 5900 ml Balance -4100 ml KEARA MCGHEE MD Jun 13, 2016 15:20
[2016-06-13] MEDS ORDERED: FUROSEMIDE 40 MG/4 ML VIAL (J1940) IV SCH (18:00)
[2016-06-13] MEDS ORDERED: HumaLOG INSULIN (NovoLOG) PER UNIT SC ONE (19:00)
[2016-06-13] MEDS ORDERED: LEVEMIR (INSULIN DETEMIR) 1 UNITS/0.01ML SC SCH (21:00)
[2016-06-13] MEDS ORDERED: HumaLOG INSULIN (NovoLOG) PER UNIT SC STA (21:15)
[2016-06-13 22:00] VITALS: BP 134/62
[2016-06-14] MEDS: MOM 30ML SUSPENSION UDC PO PRN (00:19)
[2016-06-14] MEDS: HEPARIN SOD (PORCINE) 5000 UNITS/ML VIAL SC SCH ×3 (05:34→21:10)
[2016-06-14 06:00] VITALS: BP 147/66
[2016-06-14] MEDS: SODIUM CHLORIDE 0.9% INJ 10 ML SYR IV SCH (06:17)
[2016-06-14 06:37] LABS: MEAN CORPUSCULAR HEMOGLOBIN 24.6 pg (27.0-33.0); MEAN CORPUSCULAR HGB CONC 29.1 g/dl (32.0-36.5); MEAN CORPUSCULAR VOLUME 84.5 fl (80.0-96.0); RED CELL DISTRIBUTION WIDTH 16.8 % (11.5-14.5); WHITE BLOOD COUNT 8.5 K/mm3 (4.0-10.0)
[2016-06-14 06:46] LABS: CALCIUM LEVEL 8.8 MG/DL (8.8-10.2); CREATININE FOR GFR 1.76 MG/DL (0.55-1.02); GLOMERULAR FILTRATION RATE 30.2 (>39); POTASSIUM SERUM 3.6 MEQ/L (3.5-5.1)
[2016-06-14] MEDS: IPRATROPIUM 0.5MG/ALBUTEROL 2.5MG INH SOL UD 3ML (DUONEB)(J7620) INH SCH ×4 (07:18→19:21)
[2016-06-14] MEDS ORDERED: LevoFLOXacin IV 500 MG in APPROPRIATE DILUENT 1 EA IV ONE (08:00)
[2016-06-14] MEDS: LACTULOSE 20 GM/30 ML SYRUP UD PO SCH ×2 (08:22→21:10)
[2016-06-14] MEDS: BACLOFEN 10 MG TAB PO SCH ×2 (08:22→21:19)
[2016-06-14] MEDS: levETIRAcetam 250MG TABLET (KEPPRA) PO SCH ×4 (08:22→21:19)
[2016-06-14] MEDS: SUCRALFATE 1 GM TAB PO SCH ×2 (08:24→21:19)
[2016-06-14] MEDS: PROMETHAZINE 25 MG TAB PO SCH ×3 (08:24→16:23)
[2016-06-14] MEDS: SENOKOT S TAB PO SCH ×2 (08:24→21:19)
[2016-06-14] MEDS: PREGABALIN 100 MG CAP (LYRICA) PO SCH ×3 (08:24→21:19)
[2016-06-14] MEDS: BISOPROLOL FUMARATE 5 MG TAB PO SCH (08:25)
[2016-06-14] MEDS: METOCLOPRAMIDE 10 MG TAB PO SCH ×3 (08:25→21:19)
[2016-06-14] MEDS: ASPIRIN 81 MG ENTERIC TAB PO SCH (08:25)
[2016-06-14] MEDS: OMEPRAZOLE 20 MG CAP PO SCH ×2 (08:25→21:19)
[2016-06-14] MEDS: predniSONE 20 MG TAB PO SCH (08:25)
[2016-06-14] MEDS: FLUoxetine 20 MG CAP PO SCH (08:25)
[2016-06-14] MEDS: ONDANSETRON 4 MG TAB (S0181) PO SCH ×4 (08:25→21:19)
[2016-06-14] MEDS: DOCUSATE SODIUM 100 MG CAP PO SCH ×2 (08:25→21:19)
[2016-06-14] MEDS: LEVEMIR (INSULIN DETEMIR) 1 UNITS/0.01ML SC SCH ×2 (08:26→21:20)
[2016-06-14] MEDS: HumaLOG INSULIN (NovoLOG) PER UNIT SC SCH ×4 (08:26→21:13)
--- NOTE | 2016-06-14 08:44 | REP ---
Portable chest x-ray: Single view. History: Wheezing and shortness of breath. Comparison chest x-ray June 11, 2016. Findings: A right-sided Mrsoub-A-Ibfd catheter is seen with its tip in the expected location of the superior vena cava. Oxygen delivery tubing is seen. Cardiomegaly is observed. There are multiple surgical clips in the upper abdomen on the left. Pulmonary vasculature is somewhat congested as on the prior study. No new infiltrate is seen. Signed by Hua Wang MD 06/14/2016 12:16 P
--- NOTE | 2016-06-14 13:56 | IPNPDOC ---
Text Note Date of Service The patient was seen on 06/14/16. NOTE Subjective: Dyspnea and edema have been improved. No CP/ palpations. Objective: Vitals: (see below) General: No acute distress, laying comfortably in bed. HEENT: Dry mucous membranes. Neck: No JVD or lymphadenopathy Cardiac: RRR, No murmurs Pulm: Coarse crackles at the bases b/l. Improved from yesterday. No Rhonchi bilaterally. Abd: NT/ND + BS Ext: Trace edema bilateral lower extremity. No cyanosis Labs (see below) Images: CT Chest 05/25/16 Impression: Bibasilar atelectatic changes, similar to the prior CT. Calcified granulomas on the right, unchanged. There is an indwelling central venous catheter with the tip in the right atrium in satisfactory location, unchanged. Sequela of prior fractures versus foreign bodies posteriorly on the right. Foreign bodies posteriorly on the left. No significant interval change from the prior studies. Echo 04/2015 2D COMMENTS: 1. Technically limited study due to poor acoustic window. 2. The left ventricular size is normal with a normal left ventricular wall thickness. Left ventricular systolic function is normal with an estimated LV systolic ejection fraction of 60% to 65%. 3. Mildly enlarged left atrium. The right atrium and the right ventricle appear to be normal in limited views. 4. Normal aortic root. 5. No pericardial effusion noted in limited views. 6. Minimally calcified aortic valve, leaflet excursion was not well visualized. The mitral valve leaflets as well as the tricuspid valve leaflets appeared to be normal in limited views. 7. The inferior vena cava was not visualized. DOPPLER: It detects trace mitral regurgitation and mild tricuspid regurgitation. The calculated pulmonary artery systolic pressure varies between 30 to 40 mmHg. Abnormal relaxation pattern was noted across the mitral valve annulus, left ventricular end-diastolic pressure might be elevated. IMPRESSION: 1. Technically limited study due to poor acoustic window. 2. Normal global left ventricular systolic function. There are features of left ventricular diastolic dysfunction. 3. Trace mitral regurgitation with a mildly enlarged left atrium. The dilated left atrium may be secondary to underlying left ventricular diastolic dysfunction because there is no significant mitral regurgitation. 4. Trace to mild tricuspid regurgitation with mild pulmonary hypertension. Assessment/Plan 1. Acute respiratory distress secondary decompensated diastolic heart failure and COPD exacerbation. Improving. Recently admitted with influenza. Diuresed well on Torsemide/lasix. Cont steroids. 2. Acute Decompensated Diastolic HF- improved. Diuresed well on torsemide/ Lasix. 3. Chronic kidney disease, baseline creatinine of 1.1. Now 1.7. Will hold torsemide as pt diuresed well. Avoid nephrotoxins 4 History of arachnoiditis- stable 5. Musculoskeletal chest pain, resolved 6.Diabetes mellitus - Cont Levemir; increased dose to 120 BID; states BS have been 150-200 at home on 78 BID, although steroids have increased BS. Solumedrol changed to prednisone. SSI. 7. History of DVT status post IVC 8. MATT on CPAP DVT prophy: Heparin subcutaneous VS,Fishbone, I+O VS, Fishbone, I+O Laboratory Tests 06/14/16 06:15 Calcium Level 8.8, Red Blood Count 3.76 L, Mean Corpuscular Volume 84.5, Mean Corpuscular Hemoglobin 24.6 L, Mean Corpuscular Hemoglobin Concent 29.1 L, Red Cell Distribution Width 16.8 H Vital Signs Date Time Temp Pulse Resp B/P Pulse Ox O2 Delivery O2 Flow Rate FiO2 06/14/16 09:00 Nasal Cannula 2.0 06/14/16 08:25 84 147/66 06/14/16 06:00 97.3 19 92 I&O- Last 24 Hours up to 6 AM 06/14/16 06:00 Intake Total 1720 ml Output Total 5500 ml Balance -3780 ml KEARA MCGHEE MD Jun 14, 2016 13:56
[2016-06-14 14:00] VITALS: BP 139/63
[2016-06-14 22:00] VITALS: BP 136/60
[2016-06-15] MEDS: HEPARIN SOD (PORCINE) 5000 UNITS/ML VIAL SC SCH ×3 (05:02→21:27)
[2016-06-15 05:20] LABS: MEAN CORPUSCULAR HGB CONC 29.5 g/dl (32.0-36.5); MEAN CORPUSCULAR VOLUME 84.6 fl (80.0-96.0); RED CELL DISTRIBUTION WIDTH 16.7 % (11.5-14.5); WHITE BLOOD COUNT 8.9 K/mm3 (4.0-10.0)
[2016-06-15 06:00] VITALS: BP 128/58
[2016-06-15 06:32] LABS: CALCIUM LEVEL 7.9 MG/DL (8.8-10.2); CREATININE FOR GFR 1.46 MG/DL (0.55-1.02); GLOMERULAR FILTRATION RATE 37.5 (>39); POTASSIUM SERUM 3.9 MEQ/L (3.5-5.1)
[2016-06-15] MEDS: IPRATROPIUM 0.5MG/ALBUTEROL 2.5MG INH SOL UD 3ML (DUONEB)(J7620) INH SCH ×4 (07:20→20:31)
[2016-06-15] MEDS: TIOTROPIUM INHALER/CAPSULE (SPIRIVA) INH SCH (08:00)
[2016-06-15] MEDS: HumaLOG INSULIN (NovoLOG) PER UNIT SC SCH ×4 (08:26→21:26)
[2016-06-15] MEDS: PROMETHAZINE 25 MG TAB PO SCH ×3 (08:27→17:42)
[2016-06-15] MEDS: LevoFLOXacin IV 250 MG in APPROPRIATE DILUENT 1 EA IV SCH (08:27)
[2016-06-15] MEDS: METOCLOPRAMIDE 10 MG TAB PO SCH ×3 (08:27→21:26)
[2016-06-15] MEDS: SUCRALFATE 1 GM TAB PO SCH ×2 (08:27→21:25)
[2016-06-15] MEDS: ASPIRIN 81 MG ENTERIC TAB PO SCH (08:27)
[2016-06-15] MEDS: FLUoxetine 20 MG CAP PO SCH (08:28)
[2016-06-15] MEDS: OMEPRAZOLE 20 MG CAP PO SCH ×2 (08:28→21:26)
[2016-06-15] MEDS: levETIRAcetam 250MG TABLET (KEPPRA) PO SCH ×4 (08:28→21:25)
[2016-06-15] MEDS: PREGABALIN 100 MG CAP (LYRICA) PO SCH ×3 (08:28→21:26)
[2016-06-15] MEDS: BACLOFEN 10 MG TAB PO SCH ×2 (08:28→21:25)
[2016-06-15] MEDS: ONDANSETRON 4 MG TAB (S0181) PO SCH ×4 (08:28→21:26)
[2016-06-15] MEDS: LACTULOSE 20 GM/30 ML SYRUP UD PO SCH ×2 (08:28→21:26)
[2016-06-15] MEDS: SENOKOT S TAB PO SCH ×2 (08:28→21:25)
[2016-06-15] MEDS: LEVEMIR (INSULIN DETEMIR) 1 UNITS/0.01ML SC SCH ×2 (08:29→21:27)
[2016-06-15] MEDS: predniSONE 20 MG TAB PO SCH (08:29)
[2016-06-15] MEDS: SODIUM CHLORIDE 0.9% INJ 10 ML SYR IV SCH (08:29)
[2016-06-15] MEDS: DOCUSATE SODIUM 100 MG CAP PO SCH ×2 (08:29→21:25)
[2016-06-15] MEDS: BISOPROLOL FUMARATE 5 MG TAB PO SCH (08:30)
[2016-06-15 14:00] VITALS: BP 131/64
[2016-06-15] MEDS: SPIRONOLACTONE 25 MG TAB PO SCH (15:25)
--- NOTE | 2016-06-15 20:33 | IPN ---
DATE: 06/15/2016 Patient seen and examined. No acute events overnight. Reported improved respiration. Patient on continuous positive airway pressure (CPAP) this morning. Denies any fevers or chills. Continues to have cough. Denies any chest pain, pressure or discomfort. VITAL SIGNS: Temperature 97.3, pulse 71, respiration 19, blood pressure 128/58, pulse ox 92% on continuous positive airway pressure (CPAP) with 2 liter in flow. LABORATORY DATA: WBC 8.9, H H 8.9/30.4, platelets 187. Chemistry: Sodium 143, pot 3.9, chloride 102, bicarbonate 36, BUN 37, creatinine 1.46, A1c 11.6. PHYSICAL EXAMINATION: GENERAL: Patient obese in no acute distress, comfortable on continuous positive airway pressure (CPAP). HEENT: Moist mucous membranes. Normocephalic, atraumatic. NECK: Supple. No jugular venous distention. CARDIAC: Regular rate and rhythm. Normal S1, S2. PULMONARY: Bilateral expiratory wheeze. Mild coarse crackles bilateral. ABDOMEN: Soft, non-tender, non-distended. EXTREMITIES: Trace edema bilateral lower extremities. ASSESSMENT AND PLAN: This is a 70-year-old female patient with underlying medical history of chronic obstructive pulmonary disease, morbid obesity, irritable bowel syndrome, migraine, depression, hypertension, allergies, poorly controlled insulin dependent diabetes, gastroesophageal reflux disease, hypokalemia, vitamin D deficiency, chronic kidney disease stage 3, deep vein thrombosis with IVC filter, diastolic congestive heart failure, obstructive sleep apnea on continuous positive airway pressure (CPAP) on night, recurrent urinary tract infection, patient presented with shortness of breath admitted for acute chronic obstructive pulmonary disease exacerbation. PROBLEM: 1. Acute respiratory distress secondary to acute chronic obstructive pulmonary disease exacerbation with also decompensated diastolic congestive heart failure recently admitted with Influenza, was diuresed. Continue Prednisone. Antibiotic on Levaquin. Nebulizer treatments. Spiriva has been added. 2. Acute decompensated diastolic heart failure. Strict Ins and Out, daily weights, spironolactone has been added. Patient was diuresed. We will continue to follow fluid status. Additional dose of diuretic as needed. 3. Chronic kidney disease. Baseline creatinine 1.1. 4. Acute chronic renal insufficiency. Holding diuretics at this point. We will restart diuretic as patient tolerated. 5. Hyperglycemia with underlying insulin dependent diabetes. Poorly controlled. A1c is 11. Insulin dosage has been adjusted. Continue basal bolus insulin. Possibly worsening by steroid but patient does have poorly controlled diabetes underlying. 6. Musculoskeletal chest pain has resolved. 7. History of deep vein thrombosis with IVC filter. 8. Obstructive sleep apnea. Continue continuous positive airway pressure (CPAP). 9. Coronary artery disease. Continue aspirin and beta blockers. 10. Irritable bowel syndrome. Continue bowel regimen as ordered. 11. Deep vein thrombosis prophylaxis. Heparin subcutaneous. DISPOSITION PLANNING: Pending clinical improvement.
[2016-06-15 22:00] VITALS: BP 136/64
[2016-06-16] MEDS: SODIUM CHLORIDE 0.9% INJ 10 ML SYR IV PRN (05:14)
[2016-06-16] MEDS: HEPARIN SOD (PORCINE) 5000 UNITS/ML VIAL SC SCH ×3 (05:15→20:52)
[2016-06-16 05:58] LABS: CALCIUM LEVEL 8.2 MG/DL (8.8-10.2); CREATININE FOR GFR 1.3 MG/DL (0.55-1.02); GLOMERULAR FILTRATION RATE 42.9 (>39); MAGNESIUM LEVEL 2.7 MG/DL (1.8-2.4)
[2016-06-16 05:59] LABS: MEAN CORPUSCULAR HGB CONC 29.4 g/dl (32.0-36.5); MEAN CORPUSCULAR VOLUME 85.3 fl (80.0-96.0); RED CELL DISTRIBUTION WIDTH 16.6 % (11.5-14.5); WHITE BLOOD COUNT 7.5 K/mm3 (4.0-10.0)
[2016-06-16 06:00] VITALS: BP 133/63
[2016-06-16] MEDS: IPRATROPIUM 0.5MG/ALBUTEROL 2.5MG INH SOL UD 3ML (DUONEB)(J7620) INH SCH ×4 (07:45→20:12)
[2016-06-16] MEDS: HumaLOG INSULIN (NovoLOG) PER UNIT SC SCH ×4 (08:07→20:50)
[2016-06-16] MEDS: ASPIRIN 81 MG ENTERIC TAB PO SCH (08:08)
[2016-06-16] MEDS: DOCUSATE SODIUM 100 MG CAP PO SCH ×2 (08:08→20:48)
[2016-06-16] MEDS: FLUoxetine 20 MG CAP PO SCH (08:08)
[2016-06-16] MEDS: METOCLOPRAMIDE 10 MG TAB PO SCH ×3 (08:08→20:52)
[2016-06-16] MEDS: OMEPRAZOLE 20 MG CAP PO SCH ×2 (08:08→20:48)
[2016-06-16] MEDS: SODIUM CHLORIDE 0.9% INJ 10 ML SYR IV SCH (08:08)
[2016-06-16] MEDS: LevoFLOXacin IV 250 MG in APPROPRIATE DILUENT 1 EA IV SCH (08:08)
[2016-06-16] MEDS: PREGABALIN 100 MG CAP (LYRICA) PO SCH ×3 (08:08→20:48)
[2016-06-16] MEDS: PROMETHAZINE 25 MG TAB PO SCH ×3 (08:09→17:24)
[2016-06-16] MEDS: ONDANSETRON 4 MG TAB (S0181) PO SCH ×4 (08:09→20:48)
[2016-06-16] MEDS: SPIRONOLACTONE 25 MG TAB PO SCH (08:09)
[2016-06-16] MEDS: BACLOFEN 10 MG TAB PO SCH ×2 (08:09→20:48)
[2016-06-16] MEDS: levETIRAcetam 250MG TABLET (KEPPRA) PO SCH ×4 (08:09→20:48)
[2016-06-16] MEDS: LACTULOSE 20 GM/30 ML SYRUP UD PO SCH ×2 (08:09→20:52)
[2016-06-16] MEDS: SUCRALFATE 1 GM TAB PO SCH ×2 (08:10→20:48)
[2016-06-16] MEDS: BISOPROLOL FUMARATE 5 MG TAB PO SCH (08:10)
[2016-06-16] MEDS: LEVEMIR (INSULIN DETEMIR) 1 UNITS/0.01ML SC SCH ×2 (08:10→20:51)
[2016-06-16] MEDS: predniSONE 20 MG TAB PO SCH (08:10)
[2016-06-16] MEDS: SENOKOT S TAB PO SCH ×2 (08:10→20:48)
[2016-06-16] MEDS: MOM 30ML SUSPENSION UDC PO PRN (08:18)
[2016-06-16] MEDS ORDERED: FUROSEMIDE 40 MG/4 ML VIAL (J1940) IV SCH (09:00)
[2016-06-16] MEDS: TIOTROPIUM INHALER/CAPSULE (SPIRIVA) INH SCH (10:15)
[2016-06-16 14:00] VITALS: BP 141/63
--- NOTE | 2016-06-16 14:38 | REP ---
RIGHT KNEE SERIES, COMPLETE: 06/16/2016 COMPARISON: MRI right knee, 04/12/2012, CT right femur, 12/26/2012. CLINICAL HISTORY: Right knee pain. 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 There is no chondrocalcinosis or joint effusion. I see no visible or displaced fracture. As described in the MRI report in 2012, the bone infarcts are largely occult on radiography. There is some narrowing of the lateral patellofemoral joint and a few millimeters of lateral subluxation of the patella on the sunrise view. IMPRESSION: 1. 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 There is narrowing lateral patellofemoral joint and medial compartment. 2. The known bone infarctions on the distal femur and proximal tibia are radiographically occult. Signed by Keanu Faye MD 06/16/2016 06:40 P
--- NOTE | 2016-06-16 16:47 | IPN ---
DATE: 06/16/2016 Patient seen and examined. Continues to have dyspnea and cough but reported respiration mildly improved. Denies any chest pain, pressure or discomfort. VITAL SIGNS: Temperature 97.5, pulse 72, respiration 20, blood pressure 141/63, pulse ox 97% on 2 liter nasal cannula. LABORATORY DATA: WBC 7.5, H H 8.4/28.6, platelets 180. CHEMISTRY: Sodium 143, potassium 4, chloride 104, bicarbonate 34, BUN 35, creatinine 1.3, A1c 11.6. PHYSICAL EXAMINATION: GENERAL: Patient obese, in no acute distress, comfortable on nasal cannula. HEENT: Moist mucous membranes. Normocephalic, atraumatic. NECK: Supple. No jugular venous distention. CARDIAC: Regular rate and rhythm. Normal S1, S2. PULMONARY: Bilateral expiratory wheeze. Mild coarse crackles bilateral. ABDOMEN: Soft, non-tender, obese. EXTREMITIES: Trace edema bilateral lower extremities. ASSESSMENT AND PLAN: This is a 70-year-old female patient with underlying medical history of chronic obstructive pulmonary disease, morbid obesity, irritable bowel syndrome, migraine, depression, hypertension, allergies, poorly controlled insulin dependent diabetes, gastroesophageal reflux disease, hypokalemia, vitamin D deficiency, chronic kidney disease stage 3, deep vein thrombosis with IVC filter, diastolic congestive heart failure, obstructive sleep apnea on continuous positive airway pressure (CPAP) at night, recurrent urinary tract infection, patient presented with shortness of breath admitted for acute chronic obstructive pulmonary disease exacerbation. PROBLEM: 1. Acute respiratory distress secondary to acute chronic obstructive pulmonary disease exacerbation with decompensated diastolic congestive heart failure recently admitted for Influenza. Patient was diuresed. Started on Prednisone. Antibiotic on Levaquin. Nebulizer treatments. Spiriva has been added. 2. Acute decompensated diastolic congestive heart failure. Strict Ins and Out, daily weights, spironolactone has been added. Lasix has also been added. We will continue to follow kidney function. 3. Chronic kidney disease. Baseline creatinine 1.1. Creatinine mildly more elevated secondary to diuresis. Diuresis was intermittently on hold. We will continue to monitor. 4. Acute chronic renal insufficiency. Diuretics with intermittently held. Continue to monitor. Diuretics has been reestarted. 5. Hyperglycemia with underlying insulin dependent diabetes. Poorly controlled. A1c is 11. Insulin dosage has been adjusted. Basal bolus insulin. Follow fingersticks. 6. Musculoskeletal chest pain, resolved. 7. History of deep vein thrombosis. Patient has an IVC filter. 8. Obstructive sleep apnea. Continue continuous positive airway pressure (CPAP). 9. Coronary artery disease. Continue aspirin and beta blockers. 10. Irritable bowel syndrome. Continue bowel regimen. 11. Deep vein thrombosis prophylaxis. Heparin subcutaneous. DISPOSITION PLANNING: Pending clinical improvement.
[2016-06-16] MEDS: ACETAMINOPHEN 325 MG TAB PO PRN (20:49)
[2016-06-16 22:00] VITALS: BP 127/60
[2016-06-17] MEDS: HEPARIN SOD (PORCINE) 5000 UNITS/ML VIAL SC SCH ×3 (05:19→21:16)
[2016-06-17] MEDS: ACETAMINOPHEN 325 MG TAB PO PRN (05:19)
[2016-06-17] MEDS: SODIUM CHLORIDE 0.9% INJ 10 ML SYR IV PRN (05:20)
[2016-06-17 05:46] LABS: MEAN CORPUSCULAR HEMOGLOBIN 24.7 pg (27.0-33.0); MEAN CORPUSCULAR HGB CONC 29.5 g/dl (32.0-36.5); MEAN CORPUSCULAR VOLUME 83.8 fl (80.0-96.0); RED CELL DISTRIBUTION WIDTH 16.6 % (11.5-14.5); WHITE BLOOD COUNT 6.7 K/mm3 (4.0-10.0)
[2016-06-17 06:00] VITALS: BP 125/73
[2016-06-17 06:01] LABS: CALCIUM LEVEL 8.1 MG/DL (8.8-10.2); CREATININE FOR GFR 1.39 MG/DL (0.55-1.02); GLOMERULAR FILTRATION RATE 39.7 (>39); MAGNESIUM LEVEL 2.8 MG/DL (1.8-2.4); POTASSIUM SERUM 4.5 MEQ/L (3.5-5.1)
[2016-06-17] MEDS: IPRATROPIUM 0.5MG/ALBUTEROL 2.5MG INH SOL UD 3ML (DUONEB)(J7620) INH SCH ×4 (07:15→19:24)
[2016-06-17] MEDS: TIOTROPIUM INHALER/CAPSULE (SPIRIVA) INH SCH (07:15)
[2016-06-17] MEDS: LACTULOSE 20 GM/30 ML SYRUP UD PO SCH ×2 (08:04→21:15)
[2016-06-17] MEDS: FLUoxetine 20 MG CAP PO SCH (08:04)
[2016-06-17] MEDS: METOCLOPRAMIDE 10 MG TAB PO SCH ×3 (08:05→21:16)
[2016-06-17] MEDS: ASPIRIN 81 MG ENTERIC TAB PO SCH (08:05)
[2016-06-17] MEDS: PROMETHAZINE 25 MG TAB PO SCH ×3 (08:05→17:43)
[2016-06-17] MEDS: SUCRALFATE 1 GM TAB PO SCH ×2 (08:05→21:15)
[2016-06-17] MEDS: BISOPROLOL FUMARATE 5 MG TAB PO SCH (08:05)
[2016-06-17] MEDS: predniSONE 10 MG TAB PO SCH (08:05)
[2016-06-17] MEDS: DOCUSATE SODIUM 100 MG CAP PO SCH ×2 (08:05→21:16)
[2016-06-17] MEDS: guaiFENesin ER 600 MG TAB PO PRN (08:05)
[2016-06-17] MEDS: levETIRAcetam 250MG TABLET (KEPPRA) PO SCH ×4 (08:05→21:15)
[2016-06-17] MEDS: ONDANSETRON 4 MG TAB (S0181) PO SCH ×4 (08:06→21:16)
[2016-06-17] MEDS: FUROSEMIDE 20 MG/2 ML VIAL (J1940) IV SCH (08:06)
[2016-06-17] MEDS: SENOKOT S TAB PO SCH ×2 (08:06→21:15)
[2016-06-17] MEDS: OMEPRAZOLE 20 MG CAP PO SCH ×2 (08:06→21:15)
[2016-06-17] MEDS: SPIRONOLACTONE 25 MG TAB PO SCH (08:06)
[2016-06-17] MEDS: BACLOFEN 10 MG TAB PO SCH ×2 (08:06→21:15)
[2016-06-17] MEDS: LevoFLOXacin IV 250 MG in APPROPRIATE DILUENT 1 EA IV SCH (08:06)
[2016-06-17] MEDS: PREGABALIN 100 MG CAP (LYRICA) PO SCH ×3 (08:06→21:16)
[2016-06-17] MEDS: HumaLOG INSULIN (NovoLOG) PER UNIT SC SCH ×4 (08:07→21:17)
[2016-06-17] MEDS: LEVEMIR (INSULIN DETEMIR) 1 UNITS/0.01ML SC SCH ×2 (08:07→21:16)
[2016-06-17] MEDS: SODIUM CHLORIDE 0.9% INJ 10 ML SYR IV SCH (08:08)
[2016-06-17 14:00] VITALS: BP 156/70
[2016-06-17] MEDS ORDERED: SALIVA SUBSTITUTE(MOUTHKOTE) BTL MT PRN (14:15)
--- NOTE | 2016-06-17 17:57 | IPN ---
DATE: 06/17/2016 SUBJECTIVE: Patient seen and examined. Continues to have mild dyspnea, much improved. Reported to have cough. Denies any fevers, chills, chest pain, pressure or discomfort. Family meeting was held. Discussed with patient and family, given multiple medical problems and multiple hospital admissions, the patient has poor long-term prognosis, and a lot of the patient's conditions are chronic and no curative measurement is possible. A Medical Orders for Life-Sustaining Treatment (MOLST) form was discussed with the patient. The patient and family need some time to decide. A copy of the form has been given to the patient and family. VITAL SIGNS: Temperature 97.5, pulse 83, respirations 18, blood pressure 125/73, pulse oximetry 94% on two liters nasal cannula. LABORATORY DATA: WBC 6.7, hemoglobin and hematocrit 8.2 over 27.8, platelets of 191. Chemistry: Sodium 143, potassium 4.5, chloride 104, bicarbonate 34, BUN 34, creatinine 1.39. C-reactive protein 3.01. PHYSICAL EXAMINATION: GENERAL: The patient is obese, in no acute distress, comfortable, on nasal cannula on the chair. HEENT: Moist mucous membranes. Normocephalic, atraumatic. NECK: Supple. No jugular venous distention (JVD). CARDIAC: Regular rate and rhythm. Normal S1, S2. PULMONARY: Bilateral expiratory wheeze, coarse breath sounds bilaterally. Crackles have much improved. ABDOMEN: Soft, nontender, obese. EXTREMITIES: Trace edema bilateral lower extremities. ASSESSMENT AND PLAN: This is a 71-year-old female patient with underlying medical history of chronic obstructive pulmonary disease (COPD), morbid obesity, irritable bowel syndrome, migraine, depression, hypertension, allergies, poorly controlled insulin-dependent diabetes type 2, gastroesophageal reflux disease (GERD), hypokalemia, vitamin D deficiency, chronic kidney disease (CKD) stage III, deep venous thrombosis (DVT) with inferior vena cava (IVC) filter, diastolic congestive heart failure, obstructive sleep apnea on continuous positive airway pressure (CPAP) at night, recurrent urinary tract infections, who presented with shortness of breath, admitted for acute COPD exacerbation. 1. Acute respiratory distress secondary to COPD exacerbation with decompensated diastolic congestive heart failure. Recently admitted for influenza. The patient was diuresed, started on prednisone taper as tolerated, antibiotics on Levaquin, nebulizer treatments. Spiriva has been added. 2. Acute decompensated diastolic congestive heart failure. Strict intake and output. Daily weight. Spironolactone has been added. Lasix also has been added. Dosage has been adjusted based on kidney function. 3. Chronic kidney disease (CKD). Baseline creatinine 1.1. Creatinine mildly elevated due to diuresis. Diuretic was periodically held, and dosage has been adjusted. Continue to follow. 4. Acute on chronic renal insufficiency. Diuretic has been adjusted. 5. Hyperglycemia with underlying poorly-controlled insulin-dependent diabetes. A1c of 11. Insulin dosage has been adjusted. Basal bolus insulin. Outpatient followup with [facility]. Followup fingersticks. 6. Musculoskeletal chest pain, resolved. 7. History of DVT. The patient has an IVC filter. 8. Obstructive sleep apnea. Continue CPAP. 9. Coronary arterial disease. Continue aspirin and beta red. 10. Irritable bowel syndrome. Bowel regimen is prescribed. 11. DVT prophylaxis. Heparin subcutaneous. DISPOSITION PLANNING: Pending clinical improvement. The patient with multiple medical problems, poor long-term prognosis. MOLST form discussion was held with patient's family.
[2016-06-17 22:00] VITALS: BP 145/73
[2016-06-18] MEDS: SODIUM CHLORIDE 0.9% INJ 10 ML SYR IV SCH (05:10)
[2016-06-18] MEDS: LevoFLOXacin 250 MG TABLET PO SCH (05:10)
[2016-06-18] MEDS: HEPARIN SOD (PORCINE) 5000 UNITS/ML VIAL SC SCH ×3 (05:10→21:56)
[2016-06-18 05:35] LABS: MEAN CORPUSCULAR HEMOGLOBIN 24.7 pg (27.0-33.0); MEAN CORPUSCULAR HGB CONC 28.7 g/dl (32.0-36.5); MEAN CORPUSCULAR VOLUME 86.2 fl (80.0-96.0); RED CELL DISTRIBUTION WIDTH 16.7 % (11.5-14.5); WHITE BLOOD COUNT 6.5 K/mm3 (4.0-10.0)
[2016-06-18 06:00] VITALS: BP 131/63
[2016-06-18 07:05] LABS: POTASSIUM SERUM 4.5 MEQ/L (3.5-5.1)
[2016-06-18] MEDS: TIOTROPIUM INHALER/CAPSULE (SPIRIVA) INH SCH (07:12)
[2016-06-18] MEDS: IPRATROPIUM 0.5MG/ALBUTEROL 2.5MG INH SOL UD 3ML (DUONEB)(J7620) INH SCH ×4 (07:12→19:42)
[2016-06-18 07:32] LABS: CALCIUM LEVEL 8.7 MG/DL (8.8-10.2); CREATININE FOR GFR 1.38 MG/DL (0.55-1.02); MAGNESIUM LEVEL 2.8 MG/DL (1.8-2.4)
[2016-06-18] MEDS: LACTULOSE 20 GM/30 ML SYRUP UD PO SCH ×2 (08:34→21:57)
[2016-06-18] MEDS: SUCRALFATE 1 GM TAB PO SCH ×2 (08:35→21:56)
[2016-06-18] MEDS: predniSONE 10 MG TAB PO SCH (08:35)
[2016-06-18] MEDS: FUROSEMIDE 20 MG/2 ML VIAL (J1940) IV SCH (08:35)
[2016-06-18] MEDS: OMEPRAZOLE 20 MG CAP PO SCH ×2 (08:35→21:57)
[2016-06-18] MEDS: LEVEMIR (INSULIN DETEMIR) 1 UNITS/0.01ML SC SCH ×2 (08:35→21:58)
[2016-06-18] MEDS: PROMETHAZINE 25 MG TAB PO SCH ×3 (08:35→18:26)
[2016-06-18] MEDS: DOCUSATE SODIUM 100 MG CAP PO SCH ×2 (08:35→21:56)
[2016-06-18] MEDS: HumaLOG INSULIN (NovoLOG) PER UNIT SC SCH ×4 (08:35→21:59)
[2016-06-18] MEDS: PREGABALIN 100 MG CAP (LYRICA) PO SCH ×3 (08:35→21:57)
[2016-06-18] MEDS: SENOKOT S TAB PO SCH ×2 (08:36→21:56)
[2016-06-18] MEDS: SPIRONOLACTONE 25 MG TAB PO SCH (08:36)
[2016-06-18] MEDS: BACLOFEN 10 MG TAB PO SCH ×2 (08:36→21:56)
[2016-06-18] MEDS: ASPIRIN 81 MG ENTERIC TAB PO SCH (08:36)
[2016-06-18] MEDS: METOCLOPRAMIDE 10 MG TAB PO SCH ×3 (08:36→21:57)
[2016-06-18] MEDS: BISOPROLOL FUMARATE 5 MG TAB PO SCH (08:38)
[2016-06-18] MEDS: ONDANSETRON 4 MG TAB (S0181) PO SCH ×4 (08:38→21:56)
[2016-06-18] MEDS: levETIRAcetam 250MG TABLET (KEPPRA) PO SCH ×4 (08:38→21:57)
[2016-06-18] MEDS: FLUoxetine 20 MG CAP PO SCH (08:38)
[2016-06-18 14:00] VITALS: BP 141/72
--- NOTE | 2016-06-18 14:28 | IPN ---
DATE: 06/18/2016 Patient seen and examined. No acute events overnight. Reported improved respirations and cough productive of yellow phlegm. Denies any chest pain, pressure or discomfort. VITAL SIGNS: Temperature 96.7, pulse 78, respirations 16, blood pressure 130/70, pulse oximetry 95% on two liters nasal cannula. LABORATORY DATA: WBC 6.5, hemoglobin and hematocrit 8.4 over 29.2, platelets 200. Chemistry: Sodium 148, potassium 4.5, chloride 106, bicarbonate 30, BUN 32, creatinine 1.38. PHYSICAL EXAMINATION: GENERAL: Patient morbidly obese, in no acute distress, comfortable. HEENT: Moist mucous membranes. Normocephalic, atraumatic. NECK: Supple. No jugular venous distention (JVD). CARDIAC: Regular rate and rhythm. Normal S1, S2. PULMONARY: Coarse breath sounds bilaterally. No significant wheeze. ABDOMEN: Soft, nontender, obese. Positive bowel sounds. EXTREMITIES: Trace edema bilateral lower extremities. ASSESSMENT AND PLAN: This is a 71-year-old female patient with underlying medical history of chronic obstructive pulmonary disease (COPD), morbid obesity, irritable bowel syndrome, migraine headache, depression, hypertension, allergies, poorly controlled insulin-dependent type 2 diabetes, gastroesophageal reflux disease (GERD), hypothyroidism, vitamin D deficiency, chronic kidney disease (CKD) stage III, deep venous thrombosis (DVT) with inferior vena cava (IVC) filter, diastolic congestive heart failure, obstructive sleep apnea on continuous positive airway pressure (CPAP) at night, recurrent urinary tract infections, who presented with shortness of breath and admitted for acute COPD exacerbation. PROBLEMS: 1. Acute respiratory distress secondary to COPD exacerbation with decompensated diastolic congestive heart failure. Recently admitted for influenza. The patient was diuresed, started on prednisone taper as tolerated, antibiotics on Levaquin, and nebulizer treatments. Spiriva has been added. 2. Acute decompensated diastolic congestive heart failure. Strict intake and output. Daily weight. Spironolactone has been added. Lasix also has been added. Dosage has been adjusted based on kidney function. 3. Chronic kidney disease (CKD) baseline Stage III. Baseline creatinine 1.1. Creatinine mildly elevated due to diuresis. Diuretic has been adjusted. Continue to monitor. 4. Acute on chronic renal insufficiency. Diuretic has been adjusted. Continue to monitor. 5. Hyperglycemia in the setting of poorly-controlled insulin-dependent diabetes. A1c 11. Insulin dosage has been adjusted. Basal bolus insulin. Outpatient followup with [facility]. Followup fingersticks. 6. Musculoskeletal chest pain, resolved. 7. History of DVT. The patient has an IVC filter. Heparin subcutaneous for DVT prophylaxis. 8. Obstructive sleep apnea. Continue CPAP. 9. Coronary arterial disease. Continue aspirin and beta red. 10. Irritable bowel syndrome. Continue bowel regimen. 11. DVT prophylaxis. Heparin subcutaneous. DISPOSITION: Pending clinical improvement, likely discharge over the next 24-48 hours. Medical orders for life-sustaining treatment (MOLST) form discussion has been held. Patient with multiple medical conditions and poor compliance. 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
[2016-06-18 22:00] VITALS: BP 145/68
[2016-06-18] MEDS: ACETAMINOPHEN 325 MG TAB PO PRN (22:37)
[2016-06-19] MEDS: LevoFLOXacin 250 MG TABLET PO SCH (05:29)
[2016-06-19] MEDS: HEPARIN SOD (PORCINE) 5000 UNITS/ML VIAL SC SCH (05:29)
[2016-06-19] MEDS: SODIUM CHLORIDE 0.9% INJ 10 ML SYR IV PRN (05:29)
[2016-06-19 06:00] VITALS: BP 131/60
[2016-06-19] MEDS: TIOTROPIUM INHALER/CAPSULE (SPIRIVA) INH SCH (07:04)
[2016-06-19] MEDS: IPRATROPIUM 0.5MG/ALBUTEROL 2.5MG INH SOL UD 3ML (DUONEB)(J7620) INH SCH ×2 (07:04→11:18)
[2016-06-19] MEDS: LACTULOSE 20 GM/30 ML SYRUP UD PO SCH (08:49)
[2016-06-19 08:50] LABS: CALCIUM LEVEL 8.9 MG/DL (8.8-10.2); CREATININE FOR GFR 1.33 MG/DL (0.55-1.02); GLOMERULAR FILTRATION RATE 41.7 (>39); POTASSIUM SERUM 4.1 MEQ/L (3.5-5.1)
[2016-06-19] MEDS: LEVEMIR (INSULIN DETEMIR) 1 UNITS/0.01ML SC SCH (08:51)
[2016-06-19] MEDS: HumaLOG INSULIN (NovoLOG) PER UNIT SC SCH ×2 (08:51→11:58)
[2016-06-19] MEDS: levETIRAcetam 250MG TABLET (KEPPRA) PO SCH ×2 (08:52→11:56)
[2016-06-19] MEDS: SUCRALFATE 1 GM TAB PO SCH (08:52)
[2016-06-19] MEDS: BACLOFEN 10 MG TAB PO SCH (08:52)
[2016-06-19] MEDS: SODIUM CHLORIDE 0.9% INJ 10 ML SYR IV SCH (08:52)
[2016-06-19] MEDS: PROMETHAZINE 25 MG TAB PO SCH ×2 (08:53→11:56)
[2016-06-19] MEDS: SPIRONOLACTONE 25 MG TAB PO SCH (08:53)
[2016-06-19] MEDS: ONDANSETRON 4 MG TAB (S0181) PO SCH ×2 (08:53→11:57)
[2016-06-19] MEDS: predniSONE 10 MG TAB PO SCH (08:53)
[2016-06-19] MEDS ORDERED: TORS10TA3 PO ×2 (08:53→08:55)
[2016-06-19] MEDS ORDERED: INSULADS INJ (08:53)
[2016-06-19] MEDS ORDERED: LEVA250T PO (08:53)
[2016-06-19] MEDS: PREGABALIN 100 MG CAP (LYRICA) PO SCH (08:53)
[2016-06-19] MEDS: ASPIRIN 81 MG ENTERIC TAB PO SCH (08:53)
[2016-06-19] MEDS: OMEPRAZOLE 20 MG CAP PO SCH (08:53)
[2016-06-19] MEDS: SENOKOT S TAB PO SCH (08:53)
[2016-06-19] MEDS ORDERED: PRED10TA PO (08:53)
[2016-06-19] MEDS: METOCLOPRAMIDE 10 MG TAB PO SCH (08:54)
[2016-06-19] MEDS: DOCUSATE SODIUM 100 MG CAP PO SCH (08:54)
[2016-06-19 08:55] VITALS: BP 131/60
[2016-06-19] MEDS: BISOPROLOL FUMARATE 5 MG TAB PO SCH (08:55)
[2016-06-19] MEDS: FLUoxetine 20 MG CAP PO SCH (09:00)
[2016-06-19] MEDS: FUROSEMIDE 20 MG/2 ML VIAL (J1940) IV SCH (09:00)
[2016-06-19] MEDS ORDERED: FLUCONAZOLE 50MG TABLET PO ONE (10:00)
--- NOTE | 2016-06-20 20:32 | DSES ---
DATE OF ADMISSION: 06/11/2016 DATE OF DISCHARGE: 06/19/2016 PRIMARY CARE PROVIDER: Dr. Villalobos. FINAL DIAGNOSES: 1. Acute respiratory distress secondary to chronic obstructive pulmonary disease (COPD) exacerbation, with also decompensated diastolic congestive heart failure. 2. Acute on chronic renal insufficiency. 3. Hyperglycemia. 4. Poorly controlled diabetes. 5. Musculoskeletal chest pain. 6. History of deep venous thrombosis (DVT). 7. Obstructive sleep apnea. 8. Coronary arterial disease. 9. Morbid obesity. 10. Irritable bowel syndrome. HISTORY OF PRESENT ILLNESS: This is a 71-year-old female patient with underlying medical history of morbid obesity, chronic obstructive pulmonary disease, obstructive sleep apnea on continuous positive airway pressure (CPAP), irritable bowel syndrome, migraine headache, depression, hypertension, seasonal allergies, type 2 diabetes poorly controlled, gastroesophageal reflux disease (GERD), hypokalemia, vitamin D deficiency, chronic kidney disease (CKD) stage III, deep venous thrombosis (DVT) with inferior vena cava (IVC) filter, diastolic congestive heart failure, recurrent urinary tract infection (UTI), presented to [facility] with shortness of breath with pain for respiration. Could not talk secondary to increased shortness of breath. She reported symptoms getting worse over the past 24 hours since the morning of admission, but her dyspnea has been present since she was recently discharged on 06/03/2016, when she was treated for influenza. She uses CPAP at home. Unable to bring up any phlegm. Denies any nausea or vomiting. Complained of pleuritic, sharp midsternal chest pain and reported significant cough. Denies any leg pain, back pain. Baseline is wheelchair bound. Admits to subjective fevers and chills. Patient unable to lie flat completely. HOSPITAL COURSE: The patient was admitted to the hospital, started on oral steroids, was hyperglycemic due to steroids. Insulin has been adjusted. Antibiotics were given. Nebulizer treatment Spiriva has been added. Steroids is tapered. The patient was also diuresed given the patient was mildly fluid overloaded. Diuretic has been adjusted based on kidney function. Patient's kidney function worsened after diuresis. Subsequently diuretic has been adjusted. Patient's kidney function improved. Strict intake and output and daily weight. Patient's home medication as continued. DVT prophylaxis provided. Physical therapy was done. Family meeting was held, given recurrent admission with multiple comorbidities including cardiopulmonary as well as renal issues. Code status and Medical Orders for Life-Sustaining Treatment (MOLST) form was discussed with family. MOLST form copy was given. Currently, the patient continued to have mild cough with improvement and mild dyspnea, but symptoms have not changed, and has almost returned to baseline and ready for discharge for further care as outpatient. VITAL SIGNS: Temperature 97.9, pulse 63, respirations 15, blood pressure 131/60, pulse oximetry 96% on CPAP. LABORATORY DATA: WBC 6.5, hemoglobin and hematocrit 8.4 over 29.2, platelets 200. Chemistry sodium 144, potassium 4.1, chloride 103, bicarbonate 36, BUN 34, creatinine 1.33. DISCHARGE MEDICATIONS: - Levaquin 250 by mouth daily for five more days - prednisone 10 mg by mouth daily for five more days - torsemide 20 mg by mouth daily for 15 days for now; followup with outpatient doctor to determine how long to continue and any dose adjustments Patient's home medications: - acetaminophen 650 mg by mouth every four hours as needed - ProAir inhalation four times a day as needed - DuoNeb four times a day as needed - Amitiza 25 mcg by mouth at bedtime - ammonia lactate one dose topical twice a day - aspirin 81 mg by mouth daily - baclofen 20 mg by mouth twice a day - bisoprolol 2.5 mg by mouth daily - colchicine 0.6 mg by mouth daily - cranberry extract 500 mg by mouth three times a day - Colace 100 mg by mouth twice a day - Fioricet codeine combination 50/300/40/30 mg capsule as needed three times a day - fluoxetine 20 mg by mouth daily - Breo inhalation at bedtime - Mucinex 600 mg by mouth twice a day as needed - mealtime insulin 16 units subcutaneous via scale premeal - lactulose 30 mL by mouth twice a day - Keppra 500 mg by mouth four times a day - Reglan 10 mg by mouth three times a day - milk of magnesia 30 mL by mouth daily as needed - omeprazole 20 mg by mouth twice a day - Zofran 4 mg by mouth four times a day as needed - Lyrica 100 mg by mouth three times a day - promethazine 25 mg by mouth before meals - scopolamine patch 1.5 mg topical every 72 hours as needed - senna 8.6 mg two tablets by mouth twice a day - spironolactone 25 mg by mouth daily - Carafate 1 gram by mouth twice a day - vitamin D 50,000 units by mouth weekly - insulin Lantus dose has been increased to 100 units twice a day, increase as needed DISCHARGE INSTRUCTIONS: The patient is instructed to followup with primary care provider in seven days. Followup with providers for endocrinology at [facility] for further better control of the patient's diabetes, and also outpatient followup with associate merchandise planner. The patient is instructed to return to the hospital if symptoms worsen. Patient with multiple comorbidities. Poor long-term prognosis. Morbid obesity, poor compliance, poor long-term prognosis. High risk for readmission.
== END 2016-06-19 13:04 | disposition home health service (06) | DRG 291 ==
LOC: M ED 15:39 → M ED INP 20:23 → M PCU 23:00 → M MSPAV 06-13 11:55
PROVIDERS: ADMIT Internal Medicine; ATTEND Hospitalist
DX: I13.0 Hypertensive heart and chronic kidney disease with heart failure and stage 1 through stage 4 chronic kidney disease, or unspecified chronic kidney disease (principal); I50.33 Acute on chronic diastolic (congestive) heart failure; J44.1 Chronic obstructive pulmonary disease with (acute) exacerbation; Z68.41 Body mass index [BMI] 40.0-44.9, adult; E66.01 Morbid (severe) obesity due to excess calories; E11.65 Type 2 diabetes mellitus with hyperglycemia; G47.33 Obstructive sleep apnea (adult) (pediatric); I25.10 Atherosclerotic heart disease of native coronary artery without angina pectoris; R07.89 Other chest pain; K58.8 Other irritable bowel syndrome; K21.9 Gastro-esophageal reflux disease without esophagitis; N18.3 Chronic kidney disease, stage 3 (moderate); Z79.82 Long term (current) use of aspirin; Z79.899 Other long term (current) drug therapy; Z79.4 Long term (current) use of insulin; Z86.718 Personal history of other venous thrombosis and embolism; E55.9 Vitamin D deficiency, unspecified

== ENCOUNTER → 2016-06-11 | Outpatient (REF) | payer MEDICARE, MEDICAID ==
[~2016-06-11] MED LIST changes: +PRED10PA2 PO; +PRED10TA PO
[2016-06-11 14:17] LABS: MEAN CORPUSCULAR HEMOGLOBIN 24.6 pg (27.0-33.0); MEAN CORPUSCULAR HGB CONC 28.5 g/dl (32.0-36.5); MEAN CORPUSCULAR VOLUME 86.4 fl (80.0-96.0); WHITE BLOOD COUNT 8.6 K/mm3 (4.0-10.0)
[2016-06-11 14:23] LABS: CALCIUM LEVEL 9.2 MG/DL (8.8-10.2); CREATININE FOR GFR 1.4 MG/DL (0.55-1.02); GLOMERULAR FILTRATION RATE 39.5 (>39)
[2016-06-11 14:37] LABS: POTASSIUM SERUM 5.3 MEQ/L (3.5-5.1)
== END ==
LOC: M LAB REF 13:00
PROVIDERS: ATTEND Internal Medicine
DX: J18.9 Pneumonia, unspecified organism (principal)

== ENCOUNTER → 2016-07-08 | Outpatient (REF) | payer MEDICARE, MEDICAID ==
[~2016-07-08] MED LIST changes: -CALC0.5C PO; +CALC0.5C6 PO; +LEVA250T PO; +NYST100024; +PRED5TA PO; +TORS10TA3 PO; +TYLE650T35 PO; +[UNRECOGNIZED DRUG - CODE] TOP
== END ==
LOC: M SMT 17:01
PROVIDERS: ATTEND Urology
DX: R30.0 Dysuria (principal)

== ENCOUNTER 2016-07-11 14:02 | Inpatient (IN) | payer MEDICARE, MEDICAID ==
[~2016-07-11] VITALS: Ht 170.2 cm; Wt 131.8 kg
[~2016-07-11 14:02] MED LIST changes: -NYST100024; -PRED5TA PO; -TYLE650T35 PO; -[UNRECOGNIZED DRUG - CODE] TOP
[2016-07-11] MEDS ORDERED: NYST100024 (14:24)
[2016-07-11] MEDS ORDERED: methylPREDNISolone INJ 125 MG/2 ML VIAL (J2930) IV ONE ×2 (15:30→16:00)
[2016-07-11] MEDS ORDERED: IPRATROPIUM 0.5MG/ALBUTEROL 2.5MG INH SOL UD 3ML (DUONEB)(J7620) NEB ONE (15:30)
[2016-07-11 15:51] VITALS: O2SAT 97
[2016-07-11 16:41] LABS: DIFF SLIDE NUMBER 156; MEAN CORPUSCULAR HEMOGLOBIN 21.6 pg (27.0-33.0); MEAN CORPUSCULAR HGB CONC 27.6 g/dl (32.0-36.5); MEAN CORPUSCULAR VOLUME 78.3 fl (80.0-96.0); PLATELET COUNT, AUTOMATED 210 k/mm3 (150-450); RED CELL DISTRIBUTION WIDTH 17.1 % (11.5-14.5); WHITE BLOOD COUNT 6.2 K/mm3 (4.0-10.0)
[2016-07-11 17:16] LABS: CALCIUM LEVEL 8.8 MG/DL (8.8-10.2); CREATININE FOR GFR 1.68 MG/DL (0.55-1.02); GLOMERULAR FILTRATION RATE 31.9 (>39); POTASSIUM SERUM 4.1 MEQ/L (3.5-5.1)
[2016-07-11 17:20] LABS: EOSINOPHILS 2 % (0-5)
[2016-07-11 17:21] LABS: ANISOCYTOSIS 1+
[2016-07-11 18:47] LABS: BASOPHILS 1 % (0-4)
[2016-07-11 18:48] LABS: HYPOCHROMASIA 2+
[2016-07-11] MEDS ORDERED: PRED5TA PO (20:40)
[2016-07-11] MEDS ORDERED: TORS20TA2 PO (20:40)
[2016-07-11] MEDS ORDERED: TYLE650T35 PO (20:40)
[2016-07-11] MEDS ORDERED: INSULANT SC (20:40)
[2016-07-11] MEDS ORDERED: BISACODYL 10 MG SUPP PR PRN (20:45)
[2016-07-11] MEDS ORDERED: FUROSEMIDE 100 MG/10 ML VIAL (J1940) IV SCH (20:45)
[2016-07-11] MEDS ORDERED: ONDANSETRON 4MG/2ML VIAL (J2405) IV PRN (20:45)
[2016-07-11] MEDS ORDERED: [UNRECOGNIZED DRUG - CODE] TOP (20:51)
[2016-07-11 20:56] LABS: PERCENT SATURATION 3.1 % (13.2-37.4)
[2016-07-11] MEDS ORDERED: PERCOCET 5MG/325MG TAB PO ONE (21:00)
--- NOTE | 2016-07-11 21:19 | ECGEPIP ---
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
[2016-07-11] MEDS ORDERED: GLUCOSE 4 GM CHEW TABLET PO PRN (22:15)
[2016-07-11] MEDS ORDERED: GLUCAGON FOR INJ 1 MG VIAL (J1610) SC PRN (22:15)
[2016-07-11] MEDS ORDERED: DEXTROSE 50% 50 ML SYRINGE IV PRN (22:15)
[2016-07-11 22:41] LABS: ABG HCO3 32.9 MEQ/L (22.0-26.0); ABG PARTIAL PRESSURE CO2 48.6 mmHg (35.0-45.0); ABG PARTIAL PRESSURE O2 111.7 mmHg (75.0-100.0); ABG STANDARD HCO3 31.8 MEQ/L (22.0-26.0); ABG TOTAL CO2 34.4 MEQ/L (23.0-31.0); ABG pH (ARTERIAL) 7.449 UNITS (7.350-7.450)
[2016-07-11] MEDS ORDERED: SODIUM CHLORIDE 0.9% 1000 ML IV ONE (22:45)
[2016-07-12 00:30] VITALS: BP 130/60
[2016-07-12] MEDS ORDERED: HumaLOG INSULIN (NovoLOG) PER UNIT SC ONE (01:00)
[2016-07-12] MEDS: methylPREDNISolone INJ 40 MG/1 ML VIAL (J2920) IV SCH ×3 (01:10→20:56)
[2016-07-12] MEDS: METOCLOPRAMIDE 10 MG TAB PO SCH ×4 (01:11→20:35)
[2016-07-12] MEDS: OMEPRAZOLE 20 MG CAP PO SCH ×3 (01:11→20:35)
[2016-07-12] MEDS: levETIRAcetam 250MG TABLET (KEPPRA) PO SCH ×5 (01:11→20:35)
[2016-07-12] MEDS: CLINDAMYCIN 150 MG CAP PO SCH ×4 (01:11→21:55)
[2016-07-12] MEDS: BACLOFEN 10 MG TAB PO SCH ×3 (01:11→20:35)
[2016-07-12] MEDS: guaiFENesin ER 600 MG TAB PO SCH ×3 (01:11→20:35)
[2016-07-12] MEDS: SENOKOT S TAB PO SCH ×3 (01:11→20:35)
[2016-07-12] MEDS: PREGABALIN 100 MG CAP (LYRICA) PO SCH ×4 (01:11→20:35)
[2016-07-12] MEDS: LEVEMIR (INSULIN DETEMIR) 1 UNITS/0.01ML SC SCH ×3 (01:12→20:56)
--- NOTE | 2016-07-12 01:47 | HPE ---
DATE OF ADMISSION: 07/11/2016 PRIMARY CARE PROVIDER: Dr. Villalobos. CHIEF COMPLAINT: Increasing shortness of breath and phlegm with difficulty coughing up phlegm for the past 3-4 days. PAST MEDICAL HISTORY: 1. Chronic obstructive pulmonary disease (COPD). 2. Chronic respiratory failure with hypoxia. 3. Chronic iron deficiency anemia. 4. Diabetes. 5. Hypertension. 6. Morbid obesity. 7. Obstructive sleep apnea on continuous positive airway pressure (CPAP). 8. Seizure disorder. 9. Paralyzed hemidiaphragm. 10. Chronic diastolic congestive heart failure. 11. History of arachnoiditis. 12. History of deep venous thrombosis (DVT), has inferior vena cava (IVC) filter in place. 13. Irritable bowel syndrome. 14. Gastroesophageal reflux disease (GERD). 15. Migraine headaches. 16. Depression. 17. Seasonal allergies. HISTORY OF PRESENT ILLNESS: This is a 71-year-old female who presented to the hospital with worsening shortness of breath and cough for 2-3 days. She has problem bringing out the phlegm. She feels it is very thick and sticky and sticking in her throat. She had a prolonged hospitalization in May for influenza and pneumonia and also again in June for congestive heart failure and COPD. She says since her discharge from the hospital in June she has not been back to her usual self and her breathing has not really gotten back to her normal self. Normally, she uses oxygen only at night, but for the past few days she has been using oxygen continuously. She does complain of some subjective fevers. Denies any chills. Denies any nausea, vomiting or diarrhea. Denies any abdominal pain. Denies any chest pain. In the emergency department (ED), patient was mildly tachypneic having trouble speaking in full sentences. Chest x-ray was done, which showed paralytic right hemidiaphragm and chronic lung changes without any acute consolidation and pneumonia. Patient received nebulizers and steroid in the ED without significant improvement in her symptoms, so the patient is being admitted under the hospitalist service for a COPD exacerbation. PAST SURGICAL HISTORY: 1. IVC filter placement in 2016. 2. Right hip surgery. 3. Right knee surgery. 4. Hysterectomy. 5. Lung surgery. 6. Back surgery. 7. Left ankle surgery. 8. Tonsillectomy. 9. Central venous port placement and removal. SOCIAL HISTORY: Does not smoke. Does not abuse alcohol or recreational drugs. ALLERGIES: CEPHALOSPORINS cause hives, CHLORPROMAZINE causes hives, LORATADINE causes hives, PENICILLIN hives, PENTAZOCINE hives, SULFA ANTIBIOTICS hives, IODINE unknown allergy, METHADONE unknown allergy, FLUTICASONE thrush, LATEX, SALMETEROL thrush. HOME MEDICATIONS: - Tylenol 650 mg every 8 hours as needed for pain - albuterol ipratropium nebulizer solution one solution inhalation four times a day - Amitiza 24 mcg capsule at bedtime - ammonium lactate 12% cream topically twice a day - aspirin 81 mg daily - Baclofen 20 mg by mouth three times a day - bisoprolol 2.5 mg by mouth daily - colchicine 0.6 mg by mouth daily - cranberry extract - docusate sodium 100 mg by mouth twice a day - Fioricet codeine one capsule by mouth three times a day as needed for headache - fluoxetine 20 mg by mouth daily - guaifenesin 600 mg by mouth twice a day - insulin aspart 16 units before food - insulin Lantus 100 units twice a day - lactulose 30 mL by mouth twice a day - Keppra 500 mg by mouth four times a day - metoclopramide 10 mg by mouth three times a day - milk of magnesia 30 mL by mouth daily as needed for constipation - omeprazole 20 mg by mouth twice a day - Zofran 4 mg by mouth four times a day - Lyrica 100 mg by mouth three times a day - promethazine 25 mg before meals - scopolamine transdermal patch as needed for nausea - Senokot two tablets by mouth twice a day - spironolactone 25 mg by mouth daily - sucralfate 1 gram by mouth twice a day - torsemide 20 mg by mouth daily - Vagisil 1% topically twice a day REVIEW OF SYSTEMS: All 10-point review of systems is negative except those mentioned in history of present illness (HPI). PHYSICAL EXAMINATION: VITAL SIGNS: Blood pressure 130/65, pulse 86, temperature 97.6, respiratory rate 18, pulse oximetry 95% with 2 liters nasal cannula. GENERAL: Patient awake, alert, oriented times three, lying down in bed in no acute distress. HEENT: Normocephalic, atraumatic. Moist mucous membranes. Anicteric eyes. CHEST: Bilateral poor air entry. There are diffuse crackles bilaterally. CARDIOVASCULAR: S1, S2 regular. No rub, murmur or gallop. ABDOMEN: Obese, soft, nontender, bowel sounds present. EXTREMITIES: Trace edema. LABORATORY DATA: WBC 6.2, hemoglobin 8.1, platelets 210. Sodium 143, potassium 4.1, chloride 101, bicarbonate 38, BUN 29, creatinine 1.68, glucose 181, lactic acid 2.3, calcium 8.8. Iron 14, transferrin saturation 3.1, ferritin 8. BNP 30.6. ASSESSMENT AND PLAN: This is a 71-year-old female admitted for chronic obstructive pulmonary disease (COPD) exacerbation. 1. COPD exacerbation. Will continue with nebulizers, intravenous (IV) steroids and will give clindamycin. Patient is allergic to many antibiotics, both cephalosporins and penicillins and sulfa antibiotics. 2. Chronic respiratory failure with hypoxia. Will continue with oxygen supplementation. 3. Morbid obesity with obstructive sleep apnea (MATT). Will continue with home continuous positive airway pressure (CPAP). 4. Diastolic congestive heart failure. Will continue with spironolactone and give IV Lasix. Continue with fluid restriction and daily weights. 5. Anemia. Looks like iron deficiency anemia. Will need iron supplementation. Patient did have colonoscopy twice 2 years ago, which was not a good study as was poor preparation; however, no gross masses were seen. There were hemorrhoids present. 6. Diabetes. Will continue with Levemir and lispro insulin with fingersticks. 7. Chronic kidney disease (CKD) stage III. Will continue to monitor blood urea nitrogen (BUN) and creatinine. 8. Hypothyroid. Will continue with Synthroid. 9. History of recurrent nausea and gastroesophageal reflux disease (GERD) and reflux. Will continue with omeprazole, Zofran, promethazine. 10. Chronic back pain and neuropathy. Will continue with Lyrica, Baclofen. 11. Irritable bowel syndrome. Will continue with Amitiza. 12. Depression. Will continue with fluoxetine. 13. Seizure disorder. Will continue with Keppra. 14. Deep venous thrombosis (DVT) prophylaxis has been ordered. 15. History of DVT. Has inferior vena cava (IVC) filter in place. 16. Gastrointestinal (GI) prophylaxis has been ordered.
[2016-07-12] MEDS: IPRATROPIUM 0.5MG/ALBUTEROL 2.5MG INH SOL UD 3ML (DUONEB)(J7620) NEB SCH ×4 (01:54→20:00)
[2016-07-12 06:00] VITALS: BP 133/60
[2016-07-12] MEDS: SODIUM CHLORIDE 0.9% INJ 10 ML SYR IV SCH ×2 (06:20→08:39)
[2016-07-12] MEDS: ACETAMINOPHEN 650MG ER TAB (TYLENOL ARTHRITIS) PO PRN (06:37)
[2016-07-12 07:05] LABS: CALCIUM LEVEL 8.6 MG/DL (8.8-10.2); CREATININE FOR GFR 1.72 MG/DL (0.55-1.02); POTASSIUM SERUM 4.4 MEQ/L (3.5-5.1)
[2016-07-12 07:22] LABS: MEAN CORPUSCULAR HEMOGLOBIN 21.1 pg (27.0-33.0); MEAN CORPUSCULAR HGB CONC 27.2 g/dl (32.0-36.5); MEAN CORPUSCULAR VOLUME 77.5 fl (80.0-96.0); PLATELET COUNT, AUTOMATED 174 k/mm3 (150-450); RED CELL DISTRIBUTION WIDTH 16.8 % (11.5-14.5); WHITE BLOOD COUNT 5.9 K/mm3 (4.0-10.0)
[2016-07-12 07:23] LABS: BASO % 0.5 % (0.0-1.0); EOS % 0.3 % (0.0-3.0); LARGE UNSTAINED CELL % 0.6 % (0.0-4.0); LYMPH # 0.8 K/mm3 (1.5-4.5); LYMPH % 12.8 % (24.0-44.0); MONO # 0.2 K/mm3 (0.0-0.8); MONO % 3.4 % (0.0-5.0); NEUTROPHILS # 4.8 K/mm3 (1.8-7.7); NEUTROPHILS % 82.4 % (36.0-66.0)
--- NOTE | 2016-07-12 08:07 | REP ---
AP PORTABLE CHEST: 07/11/2016. Clinical history: Dyspnea and cough. Comparison: 06/13/2016, CT chest 06/11/2016. Findings: Right jugular central catheter with tip in right atrium. This is unchanged. There are two clips overlying the left mid chest. Slight elevation of the right diaphragm. There are surgical clips in left upper quadrant and near the GE junction. The patient has volume loss right hemithorax with a prior right lung resection. The heart is mildly enlarged. The aorta is tortuous, unchanged. Airway midline. Some patchy perihilar and infrahilar findings may reflect some new infiltrate or atelectasis on that right side. I do not see dense consolidation in the left base with the diaphragm well visible. Some underlying fibrotic change is seen. Signed by Keanu Faye MD 07/12/2016 08:42 A
[2016-07-12] MEDS: FORMOTEROL FUMARATE 20 MCG/2 ML INHALATION SOLUTION (PERFOROMIST) INH SCH ×2 (08:16→20:29)
[2016-07-12] MEDS: BUDESONIDE 0.5 MG/2 ML INHALATION SUSPENSION INH SCH ×2 (08:16→20:29)
[2016-07-12] MEDS: BISOPROLOL FUM 2.5 MG PER 1/2TAB PO SCH (08:37)
[2016-07-12] MEDS: SUCRALFATE 1 GM TAB PO SCH ×2 (08:37→20:34)
[2016-07-12] MEDS: ASPIRIN 81 MG ENTERIC TAB PO SCH (08:37)
[2016-07-12] MEDS: COLCHICINE 0.6 MG TAB PO SCH (08:37)
[2016-07-12] MEDS: LACTULOSE 20 GM/30 ML SYRUP UD PO SCH ×2 (08:37→20:35)
[2016-07-12] MEDS: PROMETHAZINE 25 MG TAB PO SCH ×3 (08:38→18:15)
[2016-07-12] MEDS: HumaLOG INSULIN (NovoLOG) PER UNIT SC SCH ×4 (08:38→21:55)
[2016-07-12] MEDS ORDERED: SPIRONOLACTONE 25 MG TAB PO SCH (09:00)
[2016-07-12 09:40] LABS: FOLATE 10.5 NG/ML (>5.4)
[2016-07-12] MEDS: FLUoxetine 20 MG CAP PO SCH (11:09)
[2016-07-12] MEDS: SODIUM CHLORIDE 0.9% INJ 10 ML SYR IV PRN (11:18)
--- NOTE | 2016-07-12 11:49 | IPNPDOC ---
Subjective Date Seen The patient was seen on 07/12/16. Subjective Chief Complaint/HPI The patient is a 71-year-old female admitted with a reason for visit of Copd Exacerbation. General: Denies: Chills, Night Sweats Constitutional: Denies: Chills, Fever Eyes: Denies: Pain, Vision change ENT: Denies: Ear Pain, Head Aches Skin: Denies: Lesions, Rash Pulmonary: Reports: Cough, Dyspnea Cardiovascular: Denies: Chest Pain, Palpitations Gastrointestinal: Denies: Nausea, Vomiting Genitourinary: Denies: Dysuria, Frequency Hematologic: Denies: Bleeding Excessively, Bruising Objective Physical Examination General Exam: Positive: Alert, Cooperative, No Acute Distress ENT Exam: Positive: Atraumatic, Mucous membr. moist/pink Neck Exam: Negative: JVD Chest Exam: Positive: Diminished, Negative: Rales Heart Exam: Positive: Normal S1, Normal S2, Rate Normal Abdomen Exam: Positive: Soft, Negative: Tenderness Extremity Exam: Negative: Swelling, Tenderness Assessment /Plan Plan/VTE VTE Prophylaxis Ordered?: Yes Plan/Urinary Catheter Reason for insertion/continuin: Patient request Plan COPD exacerbation CXR with no acute findings Continue with nebulizers, Solumedrol 40mg Q12H Patient does have multiple Abx allergies, she has been started on Clindamycin Will cont to monitor respiratory status and down-titrate supplemental oxygen as tolerated Acute Kidney Injury superimposed on Chronic Kidney Disease Serum Creatinine 1.7 this am (Baseline 1.3-1.6) Will hold Nephrotoxins Gentle IVF Hydration provided Repeat BMP in the AM Chronic Hypoxic Respiratory Failure Will cont to monitor respiratory status and down-titrate supplemental oxygen as tolerated Morbid obesity with obstructive sleep apnea (MATT) Continue with home continuous positive airway pressure (CPAP). Diastolic congestive heart failure Patient appears euvolemic at this time Will hold diuretic therapy at this time given ISSA Monitor I/O's Daily Weights Iron Deficiency Anemia The patient's Hgb has been dropping from a baseline of 10-11 since May Hgb 7.8 this AM--Hemodynamically stable No overt source of bleeding noted Apparently she had 2 Colonoscopies Late in 2014 which were limited due to suboptimal preparation, but no gross masses were seen, hemorrhoids were noted Iron studies ordered here suggestive of Iron Def Anemia Stool Occult Blood Test ordered Will start the patient on Ferrous Sulfate BID Consider Blood transfusion if the patient's hgb continues to drop downward Diabetes Continue with Levemir and lispro insulin with fingersticks. Will monitor her BSR levels given steroid administration Hypothyroid Continue Synthroid. GERD Continue with omeprazole Chronic back pain and neuropathy Continue with Lyrica, Baclofen. Irritable bowel syndrome Continue with Amitiza. Depression Continue with fluoxetine. Seizure disorder Continue with Keppra. Deep venous thrombosis (DVT) prophylaxis Patient has an IVC Filter, SCDs/TEDs ordered VS, I&O, [facility]H, [facility] Vital Signs/I&O Vital Signs Date Time Temp Pulse Resp B/P Pulse Ox O2 Delivery O2 Flow Rate FiO2 07/12/16 06:00 98.2 76 18 133/60 94 NIPPV (BIPAP/CPAP) 07/12/16 00:30 2.0 I&O- Last 24 Hours up to 6 AM 07/12/16 06:00 Intake Total 685 ml Output Total 1500 ml Balance -815 ml Laboratory Data 24H LABS Laboratory Tests 2 07/11/16 16:22: Anion Gap 4L, Anisocytosis 1+, Atypical Lymphocytes , B-Type Natriuretic Peptide 30.6, Basophils (Manual) 1, Blood Urea Nitrogen 29H, Creatinine 1.68H, Sodium Level 143, Potassium Level 4.1, Chloride Level 101, Carbon Dioxide Level 38H, Calcium Level 8.8, Eosinophils (Manual) 2, Ferritin 8, Folate 10.5, Glomerular Filtration Rate 31.9L, Hypochromasia 2+, Iron Level 14L, Lactic Acid Level 2.3*H, Lymphocytes (Manual) 22, Monocytes (Manual) 9H, Neutrophils 66, Platelet Estimate NORMAL, Total Iron Binding Capacity 454H, Transferrin % Saturation 3.1L, Vitamin B12 Level 360 07/11/16 21:44: Lactic Acid Followup at 4 Hours 3.7*H 07/11/16 22:28: Arterial Blood pH 7.449, Arterial Blood Partial Pressure CO2 48.6H, Arterial Blood Partial Pressure O2 111.7H, Arterial Blood Total CO2 34.4H, Arterial Blood HCO3 32.9H, Arterial Blood Base Excess 8.0H, Arterial Blood Oxygen Saturation 98.1, Blood Gas Bicarbonate Standard 31.8H 07/12/16 00:43: Bedside Glucose (Misc Panel) 383H 07/12/16 06:20: Anion Gap 6L, White Blood Count 5.9, Red Blood Count 3.68L, Hemoglobin 7.8L, Hematocrit 28.5L, Mean Corpuscular Volume 77.5L, Mean Corpuscular Hemoglobin 21.1L, Mean Corpuscular Hemoglobin Concent 27.2L, Red Cell Distribution Width 16.8H, Platelet Count 174, Neutrophils (%) (Auto) 82.4H, Lymphocytes (%) (Auto) 12.8L, Monocytes (%) (Auto) 3.4, Eosinophils (%) (Auto) 0.3, Basophils (%) (Auto ) 0.5, Neutrophils # (Auto) 4.8, Lymphocytes # (Auto) 0.8L, Monocytes # (Auto) 0.2, Eosinophils # (Auto) 0.0, Basophils # (Auto) 0.0, Blood Urea Nitrogen 33H, Creatinine 1.72H, Sodium Level 141, Potassium Level 4.4, Chloride Level 98, Carbon Dioxide Level 37H, Calcium Level 8.6L, Glomerular Filtration Rate 31.0L, Lactic Acid Level 2.3*H, Large Unclassified Cells # 0.0, Large Unclassified Cells % 0.6 07/12/16 06:58: Bedside Glucose (Misc Panel) 332H CBC/BMP Laboratory Tests 07/11/16 16:22 Calcium Level 8.8, Red Blood Count 3.73 L, Mean Corpuscular Volume 78.3 L, Mean Corpuscular Hemoglobin 21.6 L, Mean Corpuscular Hemoglobin Concent 27.6 L, Red Cell Distribution Width 17.1 H 07/12/16 06:20 Calcium Level 8.6 L, Red Blood Count 3.68 L, Mean Corpuscular Volume 77.5 L, Mean Corpuscular Hemoglobin 21.1 L, Mean Corpuscular Hemoglobin Concent 27.2 L, Red Cell Distribution Width 16.8 H, Neutrophils (%) (Auto) 82.4 H, Lymphocytes ( %) (Auto) 12.8 L, Monocytes (%) (Auto) 3.4, Eosinophils (%) (Auto) 0.3, Basophils (%) (Auto) 0.5, Neutrophils # (Auto) 4.8, Lymphocytes # (Auto) 0.8 L, Monocytes # (Auto) 0.2, Eosinophils # (Auto) 0.0, Basophils # (Auto) 0.0 ANGELA GIBSON MD Jul 12, 2016 11:49
[2016-07-12] MEDS: FERROUS SULFATE 325MG TAB PO SCH ×2 (12:02→20:35)
[2016-07-12 14:00] VITALS: BP 120/60
[2016-07-12] MEDS ORDERED: NS 500 ML IV SCH (17:15)
[2016-07-12] MEDS ORDERED: CIPROFLOXACIN 250 MG TAB PO ONE (19:15)
[2016-07-12 22:00] VITALS: BP 131/58
[2016-07-13] VITALS (9 sets, daily range): BP systolic 123–150; BP diastolic 58–87
[2016-07-13] MEDS ORDERED: HumaLOG INSULIN (NovoLOG) PER UNIT SC ONE ×2 (01:07→18:00)
[2016-07-13] MEDS: IPRATROPIUM 0.5MG/ALBUTEROL 2.5MG INH SOL UD 3ML (DUONEB)(J7620) NEB SCH ×4 (01:18→20:00)
[2016-07-13] MEDS: CLINDAMYCIN 150 MG CAP PO SCH ×3 (05:17→21:02)
[2016-07-13] MEDS: CIPROFLOXACIN 250 MG TAB PO SCH ×2 (05:17→17:09)
[2016-07-13] MEDS: SODIUM CHLORIDE 0.9% INJ 10 ML SYR IV PRN ×2 (05:18→13:01)
[2016-07-13 05:47] LABS: BASO % 0.4 % (0.0-1.0); EOS % 0.6 % (0.0-3.0); LARGE UNSTAINED CELL # 0.1 K/mm3 (0.0-0.4); LARGE UNSTAINED CELL % 2.3 % (0.0-4.0); LYMPH # 0.8 K/mm3 (1.5-4.5); LYMPH % 11.9 % (24.0-44.0); MEAN CORPUSCULAR HEMOGLOBIN 21.6 pg (27.0-33.0); MEAN CORPUSCULAR HGB CONC 27.6 g/dl (32.0-36.5); MEAN CORPUSCULAR VOLUME 78.1 fl (80.0-96.0); MONO # 0.4 K/mm3 (0.0-0.8); MONO % 6.1 % (0.0-5.0); NEUTROPHILS # 4.6 K/mm3 (1.8-7.7); NEUTROPHILS % 78.8 % (36.0-66.0); PLATELET COUNT, AUTOMATED 162 k/mm3 (150-450); RED CELL DISTRIBUTION WIDTH 16.8 % (11.5-14.5); WHITE BLOOD COUNT 5.9 K/mm3 (4.0-10.0)
[2016-07-13 06:05] LABS: CALCIUM LEVEL 8.8 MG/DL (8.8-10.2); CREATININE FOR GFR 1.61 MG/DL (0.55-1.02); GLOMERULAR FILTRATION RATE 33.5 (>39); POTASSIUM SERUM 4.6 MEQ/L (3.5-5.1)
[2016-07-13] MEDS: FORMOTEROL FUMARATE 20 MCG/2 ML INHALATION SOLUTION (PERFOROMIST) INH SCH ×2 (07:26→20:33)
[2016-07-13] MEDS: BUDESONIDE 0.5 MG/2 ML INHALATION SUSPENSION INH SCH ×2 (07:26→20:33)
[2016-07-13] MEDS: SODIUM CHLORIDE 0.9% INJ 10 ML SYR IV SCH (08:03)
[2016-07-13] MEDS: PROMETHAZINE 25 MG TAB PO SCH ×3 (08:03→17:09)
[2016-07-13] MEDS: HumaLOG INSULIN (NovoLOG) PER UNIT SC SCH ×4 (08:04→21:03)
[2016-07-13] MEDS: methylPREDNISolone INJ 40 MG/1 ML VIAL (J2920) IV SCH (08:04)
--- NOTE | 2016-07-13 09:49 | IPNPDOC ---
Subjective Date Seen The patient was seen on 07/13/16. Subjective Chief Complaint/HPI The patient is a 71-year-old female admitted with a reason for visit of Copd Exacerbation. General: Denies: Chills, Night Sweats Constitutional: Reports: Fatigue, Denies: Chills, Fever, Malaise, Night Sweats, Weakness Eyes: Denies: Conjunctivae inflammation, Eyelid inflammation, Pain, Redness, Vision change ENT: Denies: Head Aches Skin: Denies: Bruising, Jaundice, Lesions, Rash Pulmonary: Reports: Dyspnea (states SOB is improved since admission), Denies: Cough, Pleuritic Chest Pain Cardiovascular: Reports: Edema (trace edema b/l LE), Denies: Chest Pain, Lt Headedness, Orthopnea, Palpitations Gastrointestinal: Denies: Abdominal Pain, Nausea, Vomiting Psych: Reports: Mood Normal Objective Physical Examination General Exam: Positive: Alert, Cooperative, No Acute Distress ENT Exam: Positive: Atraumatic, Mucous membr. moist/pink, Nares Patent, Tongue Midline Neck Exam: Negative: JVD Chest Exam: Positive: Diminished (throughout lung diaz), Negative: Rales, Rhonchi, Wheezing Heart Exam: Positive: Normal S1, Normal S2, Rate Normal Abdomen Exam: Positive: Other (obese), Soft, Negative: BS Hyperactive, BS Hypoactive, Tenderness Extremity Exam: Positive: Edema (trace b/l LE), Negative: Swelling, Tenderness Skin Exam: Positive: Nl turgor and temperature Psych Exam: Positive: Mental status NL Assessment /Plan Problems (1) COPD exacerbation Status: Acute Response to Treatment: Stable Problem Text: continue duoneb therapy solumederol 40 mg q12h will decrease supplemental O2 as tolerated (2) Chronic respiratory failure with hypoxia Status: Acute Response to Treatment: Stable Problem Text: states her SOB is better since admission last blood gas pH 7.4 HC03 32.9 and PCO2 48.6 with O2 111.7 will continue supplemental O2 and titrate as tolerated duoneb and d/c solumederol in light of increased glucose level and improvement of wheezing, begin prednisone (3) Diastolic CHF, acute on chronic Status: Chronic Response to Treatment: Stable Problem Text: holding on Lasix therapy due to ISSA seems Euvolemic at this time I&O's strict daily weights (4) Diabetes Status: Chronic Response to Treatment: Stable Problem Text: Continue Levemir and Lispro Insulin therapy will change levemir from 100 to 120 BID for tighter glucose control daily fingersticks glucose today 416 from 315 one day prior (5) Hypothyroid Status: Chronic Response to Treatment: Stable Problem Text: continue Synthroid medical therapy (6) Symptomatic anemia Status: Chronic Response to Treatment: Stable Problem Text: On repeat Hg dropped again at 1300 to 7.0 Will transfuse 2 units PRBC and repeat H&H one hour after last unit is completed Iron Deficiency Anemia The patient's Hgb has been dropping from a baseline of 10-11 since May Hgb 7.5 this AM--Hemodynamically stable ordered TIBC, ferritin, iron studines and retic # No overt source of bleeding noted Apparently she had 2 Colonoscopies Late in 2014 which were limited due to suboptimal preparation, but no gross masses were seen, hemorrhoids were noted Iron studies ordered here suggestive of Iron Def Anemia Stool Occult Blood Test ordered Will start the patient on Ferrous Sulfate BID Consider Blood transfusion if the patient's hgb continues to drop downward (7) Seizure disorder Status: Chronic Response to Treatment: Stable Problem Text: continue Keppra medical therapy (8) MATT on CPAP Status: Chronic Response to Treatment: Stable Problem Text: continue home CPAP (9) DVT (deep venous thrombosis) Status: Chronic Problem Text: IVC filter SCD/TEDS Plan/VTE VTE Prophylaxis Ordered?: Yes Plan/Urinary Catheter Reason for insertion/continuin: Patient request VS, I&O, 24H, Fishbone Vital Signs/I&O Vital Signs Date Time Temp Pulse Resp B/P Pulse Ox O2 Delivery O2 Flow Rate FiO2 07/13/16 06:00 97.6 76 18 150/67 99 Nasal Cannula 2.0 I&O- Last 24 Hours up to 6 AM 07/13/16 06:00 Intake Total 1390 ml Output Total 2125 ml Balance -735 ml Laboratory Data 24H LABS Laboratory Tests 2 07/12/16 11:16: Lactic Acid Followup at 4 Hours 3.4*H 07/12/16 11:47: Bedside Glucose (Misc Panel) 425H 07/12/16 16:37: Bedside Glucose (Misc Panel) 460H 07/12/16 20:39: Bedside Glucose (Misc Panel) 549*H 07/12/16 21:03: Bedside Glucose Confirm (Misc) 573*H 07/12/16 23:28: Bedside Glucose (Misc Panel) 525*H 07/12/16 23:39: Bedside Glucose Confirm (Misc) 510*H 07/13/16 02:43: Bedside Glucose (Misc Panel) 465H 07/13/16 05:24: Anion Gap 7L, White Blood Count 5.9, Red Blood Count 3.46L, Hemoglobin 7.5L, Hematocrit 27.1L, Mean Corpuscular Volume 78.1L, Mean Corpuscular Hemoglobin 21.6L, Mean Corpuscular Hemoglobin Concent 27.6L, Red Cell Distribution Width 16.8H, Platelet Count 162, Neutrophils (%) (Auto) 78.8H, Lymphocytes (%) (Auto) 11.9L, Monocytes (%) (Auto) 6.1H, Eosinophils (%) (Auto) 0.6, Basophils (%) ( Auto) 0.4, Neutrophils # (Auto) 4.6, Lymphocytes # (Auto) 0.8L, Monocytes # ( Auto) 0.4, Eosinophils # (Auto) 0.0, Basophils # (Auto) 0.0, Blood Urea Nitrogen 35H, Creatinine 1.61H, Sodium Level 143, Potassium Level 4.6, Chloride Level 103, Carbon Dioxide Level 33H, Calcium Level 8.8, Glomerular Filtration Rate 33.5L, Large Unclassified Cells # 0.1, Large Unclassified Cells % 2.3 07/13/16 08:05: Lactic Acid Level 2.1*H CBC/BMP Laboratory Tests 07/13/16 05:24 Calcium Level 8.8, Red Blood Count 3.46 L, Mean Corpuscular Volume 78.1 L, Mean Corpuscular Hemoglobin 21.6 L, Mean Corpuscular Hemoglobin Concent 27.6 L, Red Cell Distribution Width 16.8 H, Neutrophils (%) (Auto) 78.8 H, Lymphocytes (%) ( Auto) 11.9 L, Monocytes (%) (Auto) 6.1 H, Eosinophils (%) (Auto) 0.6, Basophils (%) (Auto) 0.4, Neutrophils # (Auto) 4.6, Lymphocytes # (Auto) 0.8 L, Monocytes # (Auto) 0.4, Eosinophils # (Auto) 0.0, Basophils # (Auto) 0.0 GME ATTESTATION GME ATTESTATION My preceptor for this patient encounter was physically present in the building during the encounter and was fully available. As needed, all aspects of the patient interview, examination, medical decision making process, and medical care plan development were reviewed and approved by the preceptor. Preceptor is aware and concurs with the plan as stated in the body of this note and will attest to such by his/her cosignature. BAHMAN BENOIT DO Jul 13, 2016 09:49
[2016-07-13] MEDS: levETIRAcetam 250MG TABLET (KEPPRA) PO SCH ×4 (10:16→21:01)
[2016-07-13] MEDS: LACTULOSE 20 GM/30 ML SYRUP UD PO SCH ×2 (10:16→21:02)
[2016-07-13] MEDS: FERROUS SULFATE 325MG TAB PO SCH ×2 (10:17→21:02)
[2016-07-13] MEDS: BACLOFEN 10 MG TAB PO SCH ×2 (10:17→21:01)
[2016-07-13] MEDS: ASPIRIN 81 MG ENTERIC TAB PO SCH (10:17)
[2016-07-13] MEDS: SUCRALFATE 1 GM TAB PO SCH ×2 (10:18→21:02)
[2016-07-13] MEDS: OMEPRAZOLE 20 MG CAP PO SCH ×2 (10:18→21:02)
[2016-07-13] MEDS: COLCHICINE 0.6 MG TAB PO SCH (10:18)
[2016-07-13] MEDS: guaiFENesin ER 600 MG TAB PO SCH ×2 (10:18→21:02)
[2016-07-13] MEDS: PREGABALIN 100 MG CAP (LYRICA) PO SCH ×3 (10:19→21:02)
[2016-07-13] MEDS: METOCLOPRAMIDE 10 MG TAB PO SCH ×3 (10:19→21:02)
[2016-07-13] MEDS: SENOKOT S TAB PO SCH ×2 (10:19→21:01)
[2016-07-13] MEDS: LEVEMIR (INSULIN DETEMIR) 1 UNITS/0.01ML SC SCH ×2 (10:20→21:02)
[2016-07-13] MEDS: BISOPROLOL FUM 2.5 MG PER 1/2TAB PO SCH (10:21)
[2016-07-13] MEDS: ACETAMINOPHEN 650MG ER TAB (TYLENOL ARTHRITIS) PO PRN ×2 (13:02→21:01)
[2016-07-13] MEDS: FLUoxetine 20 MG CAP PO SCH (13:02)
[2016-07-13 14:35] LABS: PERCENT SATURATION 8.1 % (13.2-37.4)
[2016-07-13 14:42] LABS: RETICULOCYTE % ADVIA2120 1.82 % (0.5-1.5)
[2016-07-13 14:43] LABS: RETIC HEMOGLOBIN CONTENT CHr 20.3 PG (24-36)
[2016-07-13] MEDS: predniSONE 20 MG TAB PO SCH (21:01)
[2016-07-14 00:10] VITALS: BP 143/65
[2016-07-14 00:27] VITALS: BP 139/65
[2016-07-14] MEDS ORDERED: ACETAMINOPHEN 650MG ER TAB (TYLENOL ARTHRITIS) PO ONE (01:00)
[2016-07-14 01:27] VITALS: BP 146/63
[2016-07-14] MEDS: SODIUM CHLORIDE 0.9% INJ 10 ML SYR IV PRN ×4 (01:33→23:49)
[2016-07-14 01:55] LABS: BASO % 0.6 % (0.0-1.0); EOS % 0.6 % (0.0-3.0); LARGE UNSTAINED CELL # 0.2 K/mm3 (0.0-0.4); LARGE UNSTAINED CELL % 2.2 % (0.0-4.0); LYMPH % 13.5 % (24.0-44.0); MEAN CORPUSCULAR HEMOGLOBIN 22.9 pg (27.0-33.0); MEAN CORPUSCULAR HGB CONC 28.6 g/dl (32.0-36.5); MEAN CORPUSCULAR VOLUME 80.1 fl (80.0-96.0); MONO # 0.5 K/mm3 (0.0-0.8); MONO % 8.1 % (0.0-5.0); PLATELET COUNT, AUTOMATED 160 k/mm3 (150-450); RED CELL DISTRIBUTION WIDTH 16.5 % (11.5-14.5); WHITE BLOOD COUNT 6.7 K/mm3 (4.0-10.0)
[2016-07-14 01:59] LABS: ADD MORPHOLOGY? YES
[2016-07-14] MEDS: IPRATROPIUM 0.5MG/ALBUTEROL 2.5MG INH SOL UD 3ML (DUONEB)(J7620) NEB SCH ×4 (02:13→20:00)
[2016-07-14 02:26] LABS: ANISOCYTOSIS 1+; HYPOCHROMASIA 3+
[2016-07-14 02:29] LABS: POLYCHROMASIA 1+
[2016-07-14] MEDS: CIPROFLOXACIN 250 MG TAB PO SCH ×2 (05:17→17:27)
[2016-07-14] MEDS: CLINDAMYCIN 150 MG CAP PO SCH ×3 (05:18→21:36)
[2016-07-14 05:42] LABS: MEAN CORPUSCULAR HEMOGLOBIN 22.1 pg (27.0-33.0); MEAN CORPUSCULAR HGB CONC 27.8 g/dl (32.0-36.5); MEAN CORPUSCULAR VOLUME 79.3 fl (80.0-96.0); PLATELET COUNT, AUTOMATED 178 k/mm3 (150-450); WHITE BLOOD COUNT 6.2 K/mm3 (4.0-10.0)
[2016-07-14 06:00] VITALS: BP 142/73
[2016-07-14 06:05] LABS: ANISOCYTOSIS 1+; BANDS 1 % (< 11); BASOPHILS 3 % (0-4); HYPOCHROMASIA 3+
[2016-07-14 06:51] LABS: POTASSIUM SERUM 4.7 MEQ/L (3.5-5.1)
[2016-07-14 07:17] LABS: CALCIUM LEVEL 9.1 MG/DL (8.8-10.2); CREATININE FOR GFR 1.53 MG/DL (0.55-1.02); GLOMERULAR FILTRATION RATE 35.5 (>39)
--- NOTE | 2016-07-14 08:37 | IPNPDOC ---
Subjective Date Seen The patient was seen on 07/14/16. Subjective Chief Complaint/HPI The patient is a 71-year-old female admitted with a reason for visit of Copd Exacerbation. General: Denies: Chills, Fatigue, Night Sweats Constitutional: Denies: Chills, Fever, Malaise, Night Sweats Eyes: Denies: Conjunctivae inflammation, Eyelid inflammation, Pain, Redness, Vision change ENT: Denies: Ear Pain, Head Aches Skin: Denies: Bruising, Dry, Itching, Jaundice, Lesions, Rash Pulmonary: Reports: Dyspnea, Denies: Cough, Pleuritic Chest Pain Cardiovascular: Denies: Chest Pain, Orthopnea, Palpitations Gastrointestinal: Denies: Abdominal Pain, Nausea, Vomiting Genitourinary: Denies: Dysuria, Frequency Neurological: Denies: Numbness, Weakness Psych: Reports: Mood Normal Objective Physical Examination General Exam: Positive: Alert, Cooperative, No Acute Distress ENT Exam: Positive: Atraumatic, Mucous membr. moist/pink, Nares Patent, Tongue Midline Neck Exam: Negative: JVD Chest Exam: Positive: Diminished (throughout lung diaz), Negative: Rales, Rhonchi, Wheezing Heart Exam: Positive: Normal S1, Normal S2, Rate Normal Abdomen Exam: Positive: Other (obese), Soft, Negative: BS Hyperactive, BS Hypoactive, Tenderness Extremity Exam: Positive: Edema (trace b/l LE, unchanged from one day prior ), Negative: Swelling, Tenderness Skin Exam: Positive: Nl turgor and temperature Psych Exam: Positive: Mental status NL, Oriented x 3 Assessment /Plan Problems (1) COPD exacerbation Status: Acute Response to Treatment: Stable Problem Text: continue duoneb therapy solumederol 40 mg q12h will decrease supplemental O2 as tolerated (2) Chronic respiratory failure with hypoxia Status: Acute Response to Treatment: Stable Problem Text: states her SOB is better since admission last blood gas pH 7.4 HC03 32.9 and PCO2 48.6 with O2 111.7 will continue supplemental O2 and titrate as tolerated duoneb and d/c solumederol in light of increased glucose level and improvement of wheezing, begin prednisone (3) Diastolic CHF, acute on chronic Status: Chronic Response to Treatment: Stable Problem Text: holding on Lasix therapy due to ISSA seems Euvolemic at this time I&O's strict daily weights (4) Diabetes Status: Chronic Response to Treatment: Stable Problem Text: Continue Levemir and Lispro Insulin therapy continue levemir 120 BID for tighter glucose control daily fingersticks glucose today 453 from 416 one day prior (5) Hypothyroid Status: Chronic Response to Treatment: Stable Problem Text: continue Synthroid medical therapy (6) Symptomatic anemia Status: Chronic Response to Treatment: Stable Problem Text: s/p 2 units PRBC one day prior repeat H&H showed improvement after transfusion, 9.0/31.6 from 10/27.2 Iron Deficiency Anemia The patient's Hgb has been dropping from a baseline of 10-11 since May Hemodynamically stable ordered TIBC 422, ferritin 8, transferrin 8.1, iron 34, and retic # 1.82, retic count 20.3 No overt source of bleeding noted Apparently she had 2 Colonoscopies Late in 2014 which were limited due to suboptimal preparation, but no gross masses were seen, hemorrhoids were noted Iron studies ordered here suggestive of Iron Def Anemia Stool Occult Blood Test ordered Will start the patient on Ferrous Sulfate BID Consider Blood transfusion if the patient's hgb continues to drop downward (7) Seizure disorder Status: Chronic Response to Treatment: Stable Problem Text: continue Keppra medical therapy (8) MATT on CPAP Status: Chronic Response to Treatment: Stable Problem Text: continue home CPAP (9) DVT (deep venous thrombosis) Status: Chronic Problem Text: IVC filter SCD/TEDS Plan/VTE VTE Prophylaxis Ordered?: Yes Plan/Urinary Catheter Reason for insertion/continuin: Patient request VS, I&O, 24H, Fishbone Vital Signs/I&O Vital Signs Date Time Temp Pulse Resp B/P Pulse Ox O2 Delivery O2 Flow Rate FiO2 07/14/16 06:00 97.2 63 15 142/73 97 NIPPV (BIPAP/CPAP) 07/14/16 02:13 2.0 I&O- Last 24 Hours up to 6 AM 07/14/16 06:00 Intake Total 2500 ml Output Total 3150 ml Balance -650 ml Laboratory Data 24H LABS Laboratory Tests 2 07/13/16 11:47: Bedside Glucose (Misc Panel) 389H 07/13/16 13:04: Absolute Reticulocyte Count 64, Lactic Acid Followup at 4 Hours 3.0*H, Percent Reticulocyte Count 1.82H, Reticulocyte Hgb Content (CHr) 20.3L 07/13/16 16:50: Bedside Glucose (Misc Panel) 520*H 07/13/16 17:14: Bedside Glucose Confirm (Misc) 467*H 07/13/16 20:10: Bedside Glucose (Misc Panel) 487H 07/14/16 01:37: Anisocytosis 1+, White Blood Count 6.7, Red Blood Count 3.95L, Hemoglobin 9.0#L , Hematocrit 31.6L, Mean Corpuscular Volume 80.1, Mean Corpuscular Hemoglobin 22.9L, Mean Corpuscular Hemoglobin Concent 28.6L, Red Cell Distribution Width 16.5H, Platelet Count 160, Neutrophils (%) (Auto) 75.0H, Lymphocytes (%) (Auto) 13.5L, Monocytes (%) (Auto) 8.1H, Eosinophils (%) (Auto) 0.6, Basophils (%) ( Auto) 0.6, Neutrophils # (Auto) 5.0, Lymphocytes # (Auto) 1.0L, Monocytes # ( Auto) 0.5, Eosinophils # (Auto) 0.0, Basophils # (Auto) 0.0, Hypochromasia 3+, Large Unclassified Cells # 0.2, Large Unclassified Cells % 2.2, Platelet Estimate NORMAL, Polychromasia 1+ 07/14/16 05:23: Anisocytosis 1+, White Blood Count 6.2, Red Blood Count 4.11, Hemoglobin 9.1L, Hematocrit 32.5L, Mean Corpuscular Volume 79.3L, Mean Corpuscular Hemoglobin 22.1L, Mean Corpuscular Hemoglobin Concent 27.8L, Red Cell Distribution Width 17.0H, Platelet Count 178, Neutrophils (%) (Auto) , Lymphocytes (%) (Auto) , Monocytes (%) (Auto) , Eosinophils (%) (Auto) , Basophils (%) (Auto) , Neutrophils # (Auto) , Lymphocytes # (Auto) , Monocytes # (Auto) , Eosinophils # (Auto) , Basophils # (Auto) , Hypochromasia 3+, Large Unclassified Cells # , Large Unclassified Cells % , Platelet Estimate NORMAL, Anion Gap 6L, Band Neutrophils 1, Basophils (Manual) 3, Blood Urea Nitrogen 41H, Creatinine 1.53H, Sodium Level 139, Potassium Level 4.7, Chloride Level 103, Carbon Dioxide Level 30, Calcium Level 9.1, Glomerular Filtration Rate 35.5L, Lymphocytes (Manual) 14L, Monocytes (Manual) 6, Neutrophils 76H CBC/BMP Laboratory Tests 07/13/16 13:04 07/14/16 01:37 Red Blood Count 3.95 L, Mean Corpuscular Volume 80.1, Mean Corpuscular Hemoglobin 22.9 L, Mean Corpuscular Hemoglobin Concent 28.6 L, Red Cell Distribution Width 16.5 H, Neutrophils (%) (Auto) 75.0 H, Lymphocytes (%) (Auto ) 13.5 L, Monocytes (%) (Auto) 8.1 H, Eosinophils (%) (Auto) 0.6, Basophils (%) (Auto) 0.6, Neutrophils # (Auto) 5.0, Lymphocytes # (Auto) 1.0 L, Monocytes # ( Auto) 0.5, Eosinophils # (Auto) 0.0, Basophils # (Auto) 0.0 07/14/16 05:23 Red Blood Count 4.11, Mean Corpuscular Volume 79.3 L, Mean Corpuscular Hemoglobin 22.1 L, Mean Corpuscular Hemoglobin Concent 27.8 L, Red Cell Distribution Width 17.0 H, Neutrophils (%) (Auto) , Lymphocytes (%) (Auto) , Monocytes (%) (Auto) , Eosinophils (%) (Auto) , Basophils (%) (Auto) , Neutrophils # (Auto) , Lymphocytes # (Auto) , Monocytes # (Auto) , Eosinophils # (Auto) , Basophils # (Auto) , Calcium Level 9.1 GME ATTESTATION GME ATTESTATION My preceptor for this patient encounter was physically present in the building during the encounter and was fully available. As needed, all aspects of the patient interview, examination, medical decision making process, and medical care plan development were reviewed and approved by the preceptor. Preceptor is aware and concurs with the plan as stated in the body of this note and will attest to such by his/her cosignature. BAHMAN BENOIT DO Jul 14, 2016 08:37
[2016-07-14] MEDS: BUDESONIDE 0.5 MG/2 ML INHALATION SUSPENSION INH SCH ×2 (08:50→21:16)
[2016-07-14] MEDS: FORMOTEROL FUMARATE 20 MCG/2 ML INHALATION SOLUTION (PERFOROMIST) INH SCH ×2 (08:50→21:16)
[2016-07-14] MEDS: LEVEMIR (INSULIN DETEMIR) 1 UNITS/0.01ML SC SCH (08:57)
[2016-07-14] MEDS: HumaLOG INSULIN (NovoLOG) PER UNIT SC SCH ×4 (08:58→21:38)
[2016-07-14] MEDS: SODIUM CHLORIDE 0.9% INJ 10 ML SYR IV SCH (09:03)
[2016-07-14] MEDS: LACTULOSE 20 GM/30 ML SYRUP UD PO SCH ×2 (09:03→21:37)
[2016-07-14] MEDS: COLCHICINE 0.6 MG TAB PO SCH (09:04)
[2016-07-14] MEDS: BISOPROLOL FUM 2.5 MG PER 1/2TAB PO SCH (09:04)
[2016-07-14] MEDS: predniSONE 20 MG TAB PO SCH ×2 (09:05→21:36)
[2016-07-14] MEDS: SUCRALFATE 1 GM TAB PO SCH ×2 (09:05→21:36)
[2016-07-14] MEDS: OMEPRAZOLE 20 MG CAP PO SCH ×2 (09:05→21:36)
[2016-07-14] MEDS: SENOKOT S TAB PO SCH ×2 (09:05→21:36)
[2016-07-14] MEDS: PROMETHAZINE 25 MG TAB PO SCH ×3 (09:05→17:28)
[2016-07-14] MEDS: levETIRAcetam 250MG TABLET (KEPPRA) PO SCH ×4 (09:05→21:37)
[2016-07-14] MEDS: BACLOFEN 10 MG TAB PO SCH ×2 (09:06→21:37)
[2016-07-14] MEDS: FERROUS SULFATE 325MG TAB PO SCH ×2 (09:06→21:36)
[2016-07-14] MEDS: ASPIRIN 81 MG ENTERIC TAB PO SCH (09:06)
[2016-07-14] MEDS: guaiFENesin ER 600 MG TAB PO SCH ×2 (09:07→21:37)
[2016-07-14] MEDS: PREGABALIN 100 MG CAP (LYRICA) PO SCH ×3 (09:07→21:37)
[2016-07-14] MEDS: METOCLOPRAMIDE 10 MG TAB PO SCH ×3 (09:07→21:37)
[2016-07-14] MEDS: FLUoxetine 20 MG CAP PO SCH (12:27)
[2016-07-14] MEDS: TORSEMIDE 20 MG TAB PO SCH (12:28)
[2016-07-14] MEDS: SPIRONOLACTONE 25 MG TAB PO SCH (12:30)
[2016-07-14 14:00] VITALS: BP 171/78
[2016-07-14] MEDS ORDERED: LEVEMIR (INSULIN DETEMIR) 1 UNITS/0.01ML SC SCH (21:00)
[2016-07-14 22:00] VITALS: BP 142/63
[2016-07-15] MEDS ORDERED: HumaLOG INSULIN (NovoLOG) PER UNIT SC ONE ×5 (00:15→23:00)
[2016-07-15] MEDS: IPRATROPIUM 0.5MG/ALBUTEROL 2.5MG INH SOL UD 3ML (DUONEB)(J7620) NEB SCH ×4 (01:24→20:00)
[2016-07-15] MEDS: CIPROFLOXACIN 250 MG TAB PO SCH ×2 (05:37→18:01)
[2016-07-15] MEDS: CLINDAMYCIN 150 MG CAP PO SCH ×3 (05:37→22:36)
[2016-07-15] MEDS: SODIUM CHLORIDE 0.9% INJ 10 ML SYR IV PRN ×4 (05:37→22:23)
[2016-07-15 06:00] VITALS: BP 156/56
[2016-07-15 06:07] LABS: BASO % 0.4 % (0.0-1.0); EOS % 0.2 % (0.0-3.0); LARGE UNSTAINED CELL # 0.2 K/mm3 (0.0-0.4); LARGE UNSTAINED CELL % 2.1 % (0.0-4.0); LYMPH % 12.3 % (24.0-44.0); MEAN CORPUSCULAR HEMOGLOBIN 22.5 pg (27.0-33.0); MEAN CORPUSCULAR HGB CONC 28.8 g/dl (32.0-36.5); MEAN CORPUSCULAR VOLUME 78.1 fl (80.0-96.0); MONO # 0.5 K/mm3 (0.0-0.8); MONO % 6.7 % (0.0-5.0); NEUTROPHILS # 5.4 K/mm3 (1.8-7.7); NEUTROPHILS % 78.3 % (36.0-66.0); PLATELET COUNT, AUTOMATED 161 k/mm3 (150-450); RED CELL DISTRIBUTION WIDTH 17.3 % (11.5-14.5); WHITE BLOOD COUNT 6.9 K/mm3 (4.0-10.0)
[2016-07-15 06:26] LABS: CALCIUM LEVEL 9.2 MG/DL (8.8-10.2); CREATININE FOR GFR 1.61 MG/DL (0.55-1.02); GLOMERULAR FILTRATION RATE 33.5 (>39); POTASSIUM SERUM 4.4 MEQ/L (3.5-5.1)
[2016-07-15] MEDS: HumaLOG INSULIN (NovoLOG) PER UNIT SC SCH ×3 (06:38→17:30)
[2016-07-15] MEDS: FORMOTEROL FUMARATE 20 MCG/2 ML INHALATION SOLUTION (PERFOROMIST) INH SCH ×2 (07:34→21:06)
[2016-07-15] MEDS: BUDESONIDE 0.5 MG/2 ML INHALATION SUSPENSION INH SCH ×2 (07:34→21:06)
--- NOTE | 2016-07-15 08:18 | IPNPDOC ---
Subjective Date Seen The patient was seen on 07/15/16. Subjective Chief Complaint/HPI The patient is a 71-year-old female admitted with a reason for visit of Copd Exacerbation. General: Denies: Chills, Fatigue, Malaise, Night Sweats Constitutional: Denies: Chills, Fever, Malaise, Night Sweats, Weakness Eyes: Denies: Conjunctivae inflammation, Eyelid inflammation, Pain, Redness, Vision change ENT: Denies: Head Aches Skin: Denies: Bruising, Jaundice, Lesions, Rash Pulmonary: Reports: Cough (continued from one day ago, non-productive), Dyspnea (states SOB is better from one day prior) Cardiovascular: Denies: Chest Pain, Palpitations Gastrointestinal: Denies: Nausea, Vomiting Genitourinary: Denies: Dysuria Neurological: Denies: Weakness Psych: Reports: Mood Normal Objective Physical Examination General Exam: Positive: Alert, Cooperative, No Acute Distress ENT Exam: Positive: Atraumatic, Mucous membr. moist/pink, Nares Patent, Tongue Midline Neck Exam: Negative: JVD Chest Exam: Positive: Diminished (throughout lung diaz, unchanged from one day prior), Negative: Rales, Rhonchi, Wheezing Heart Exam: Positive: Normal S1, Normal S2, Rate Normal Abdomen Exam: Positive: Other (obese), Soft, Negative: BS Hyperactive, BS Hypoactive, Tenderness Extremity Exam: Positive: Edema (trace b/l LE, unchanged from one day prior ), Negative: Swelling, Tenderness Skin Exam: Positive: Nl turgor and temperature Psych Exam: Positive: Mental status NL, Oriented x 3 Assessment /Plan Problems (1) COPD exacerbation Status: Acute Response to Treatment: Stable Problem Text: continue duoneb therapy solumederol 40 mg q12h will decrease supplemental O2 as tolerated (2) Chronic respiratory failure with hypoxia Status: Acute Response to Treatment: Stable Problem Text: prednisone therapy continued, will consider weaning based on respiratory status states her SOB is better since admission last blood gas pH 7.4 HC03 32.9 and PCO2 48.6 with O2 111.7 will continue supplemental O2 and titrate as tolerated duoneb and d/c solumederol in light of increased glucose level and improvement of wheezing- prednisone was started one day prior (3) Diastolic CHF, acute on chronic Status: Chronic Response to Treatment: Stable Problem Text: holding on Lasix therapy due to ISSA seems Euvolemic at this time I&O's strict daily weights (4) Diabetes Status: Chronic Response to Treatment: Stable Problem Text: Levemir was increased to 150 BID Continue Levemir and Lispro Insulin therapy continue levemir 150 BID for tighter glucose control daily fingersticks glucose today 416 (5) Hypothyroid Status: Chronic Response to Treatment: Stable Problem Text: continue Synthroid medical therapy (6) Symptomatic anemia Status: Chronic Response to Treatment: Stable Problem Text: 9.0/31.2 H/H today occult blood neg s/p 2 units PRBC two days prior repeat H&H showed improvement after transfusion, 9.0/31.6 from 10/27.2 Iron Deficiency Anemia The patient's Hgb has been dropping from a baseline of 10-11 since May Hemodynamically stable ordered TIBC 422, ferritin 8, transferrin 8.1, iron 34, and retic # 1.82, retic count 20.3 No overt source of bleeding noted Apparently she had 2 Colonoscopies Late in 2014 which were limited due to suboptimal preparation, but no gross masses were seen, hemorrhoids were noted Iron studies ordered here suggestive of Iron Def Anemia Stool Occult Blood Test ordered Will start the patient on Ferrous Sulfate BID Consider Blood transfusion if the patient's hgb continues to drop downward (7) Seizure disorder Status: Chronic Response to Treatment: Stable Problem Text: continue Keppra medical therapy (8) MATT on CPAP Status: Chronic Response to Treatment: Stable Problem Text: continue home CPAP (9) DVT (deep venous thrombosis) Status: Chronic Problem Text: IVC filter SCD/TEDS Plan/VTE VTE Prophylaxis Ordered?: Yes Plan/Urinary Catheter Reason for insertion/continuin: Patient request VS, I&O, [facility] Vital Signs/I&O Vital Signs Date Time Temp Pulse Resp B/P Pulse Ox O2 Delivery O2 Flow Rate FiO2 07/15/16 07:54 Nasal Cannula 2.0 07/15/16 06:00 97.9 68 20 156/56 94 I&O- Last 24 Hours up to 6 AM 07/15/16 06:00 Intake Total 1980 ml Output Total 5650 ml Balance -3670 ml Laboratory Data 24H LABS Laboratory Tests 2 07/14/16 11:15: Bedside Glucose (Misc Panel) 479H 07/14/16 16:43: Bedside Glucose (Misc Panel) 393H 07/14/16 20:13: Bedside Glucose (Misc Panel) 558*H 07/14/16 20:18: Bedside Glucose (Misc Panel) 526*H 07/14/16 20:52: Bedside Glucose Confirm (Misc) 570*H 07/14/16 23:48: Bedside Glucose Confirm (Misc) 534*H 07/15/16 05:42: Anion Gap 7L, White Blood Count 6.9, Red Blood Count 4.00, Hemoglobin 9.0L, Hematocrit 31.2L, Mean Corpuscular Volume 78.1L, Mean Corpuscular Hemoglobin 22.5L, Mean Corpuscular Hemoglobin Concent 28.8L, Red Cell Distribution Width 17.3H, Platelet Count 161, Neutrophils (%) (Auto) 78.3H, Lymphocytes (%) (Auto) 12.3L, Monocytes (%) (Auto) 6.7H, Eosinophils (%) (Auto) 0.2, Basophils (%) ( Auto) 0.4, Neutrophils # (Auto) 5.4, Lymphocytes # (Auto) 1.0L, Monocytes # ( Auto) 0.5, Eosinophils # (Auto) 0.0, Basophils # (Auto) 0.0, Blood Urea Nitrogen 42H, Creatinine 1.61H, Sodium Level 139, Potassium Level 4.4, Chloride Level 98, Carbon Dioxide Level 34H, Calcium Level 9.2, Glomerular Filtration Rate 33.5L, Large Unclassified Cells # 0.2, Large Unclassified Cells % 2.1 CBC/BMP Laboratory Tests 07/14/16 12:43 07/15/16 05:42 Calcium Level 9.2, Red Blood Count 4.00, Mean Corpuscular Volume 78.1 L, Mean Corpuscular Hemoglobin 22.5 L, Mean Corpuscular Hemoglobin Concent 28.8 L, Red Cell Distribution Width 17.3 H, Neutrophils (%) (Auto) 78.3 H, Lymphocytes (%) ( Auto) 12.3 L, Monocytes (%) (Auto) 6.7 H, Eosinophils (%) (Auto) 0.2, Basophils (%) (Auto) 0.4, Neutrophils # (Auto) 5.4, Lymphocytes # (Auto) 1.0 L, Monocytes # (Auto) 0.5, Eosinophils # (Auto) 0.0, Basophils # (Auto) 0.0 Microbiology Microbiology 07/14/16 Stool Occult Blood (GORDY) - Final, Complete GME ATTESTATION GME ATTESTATION My preceptor for this patient encounter was physically present in the building during the encounter and was fully available. As needed, all aspects of the patient interview, examination, medical decision making process, and medical care plan development were reviewed and approved by the preceptor. Preceptor is aware and concurs with the plan as stated in the body of this note and will attest to such by his/her cosignature. BAHMAN BENOIT DO Jul 15, 2016 08:18
[2016-07-15] MEDS: COLCHICINE 0.6 MG TAB PO SCH (08:39)
[2016-07-15] MEDS: PROMETHAZINE 25 MG TAB PO SCH ×3 (08:39→18:01)
[2016-07-15] MEDS: BACLOFEN 10 MG TAB PO SCH ×2 (08:39→22:36)
[2016-07-15] MEDS: levETIRAcetam 250MG TABLET (KEPPRA) PO SCH ×4 (08:40→22:37)
[2016-07-15] MEDS: FERROUS SULFATE 325MG TAB PO SCH ×2 (08:40→22:36)
[2016-07-15] MEDS: SUCRALFATE 1 GM TAB PO SCH ×2 (08:40→22:37)
[2016-07-15] MEDS: guaiFENesin ER 600 MG TAB PO SCH ×2 (08:40→22:36)
[2016-07-15] MEDS: OMEPRAZOLE 20 MG CAP PO SCH ×2 (08:41→22:37)
[2016-07-15] MEDS: BISOPROLOL FUM 2.5 MG PER 1/2TAB PO SCH (08:42)
[2016-07-15] MEDS: predniSONE 20 MG TAB PO SCH ×2 (08:42→22:37)
[2016-07-15] MEDS: SENOKOT S TAB PO SCH ×2 (08:42→22:36)
[2016-07-15] MEDS: ASPIRIN 81 MG ENTERIC TAB PO SCH (08:43)
[2016-07-15] MEDS: PREGABALIN 100 MG CAP (LYRICA) PO SCH ×3 (08:43→22:36)
[2016-07-15] MEDS: METOCLOPRAMIDE 10 MG TAB PO SCH ×3 (08:44→22:36)
[2016-07-15] MEDS: TORSEMIDE 20 MG TAB PO SCH (08:44)
[2016-07-15] MEDS: SODIUM CHLORIDE 0.9% INJ 10 ML SYR IV SCH (08:46)
[2016-07-15] MEDS: LACTULOSE 20 GM/30 ML SYRUP UD PO SCH ×2 (08:47→22:37)
[2016-07-15] MEDS: SPIRONOLACTONE 25 MG TAB PO SCH (08:48)
[2016-07-15] MEDS ORDERED: LEVEMIR (INSULIN DETEMIR) 1 UNITS/0.01ML SC SCH ×2 (09:00→21:00)
[2016-07-15] MEDS: FLUoxetine 20 MG CAP PO SCH (12:31)
[2016-07-15] MEDS: ACETAMINOPHEN 650MG ER TAB (TYLENOL ARTHRITIS) PO PRN ×2 (13:51→22:26)
[2016-07-15 14:00] VITALS: BP 174/78
[2016-07-15 19:35] LABS: ALBUMIN 3.1 GM/DL (3.2-5.2); ALBUMIN/GLOBULIN RATIO 1.03 (1.00-1.93); BILIRUBIN,TOTAL 0.2 MG/DL (0.2-1.0); CALCIUM LEVEL 8.4 MG/DL (8.8-10.2); CREATININE FOR GFR 1.83 MG/DL (0.55-1.02); GLOMERULAR FILTRATION RATE 28.9 (>39); POTASSIUM SERUM 4.5 MEQ/L (3.5-5.1); TOTAL PROTEIN 6.1 GM/DL (6.4-8.2)
[2016-07-15 20:23] LABS: VENOUS BASE EXCESS 3.4 (-2.0-2.0); VENOUS O2 SATURATION 89.2 % (60.0-80.0); VENOUS PARTIAL PRESSURE CO2 73.6 mmHg (38.0-50.0); VENOUS STANDARD HCO3 27.4 MEQ/L; VENOUS TOTAL CO2 34.1 MEQ/L (24.0-28.0)
[2016-07-15] MEDS: LEVEMIR (INSULIN DETEMIR) 1 UNITS/0.01ML SC SCH (20:36)
[2016-07-15] MEDS ORDERED: HumaLOG INSULIN (NovoLOG) PER UNIT SC SCH (21:00)
[2016-07-15 22:00] VITALS: BP 133/62
[2016-07-16] MEDS: IPRATROPIUM 0.5MG/ALBUTEROL 2.5MG INH SOL UD 3ML (DUONEB)(J7620) NEB SCH ×4 (01:53→19:37)
[2016-07-16 06:00] VITALS: BP 155/72
[2016-07-16] MEDS: CIPROFLOXACIN 250 MG TAB PO SCH ×2 (06:11→17:52)
[2016-07-16] MEDS: SODIUM CHLORIDE 0.9% INJ 10 ML SYR IV PRN (06:11)
[2016-07-16] MEDS: CLINDAMYCIN 150 MG CAP PO SCH ×3 (06:11→21:21)
[2016-07-16 06:34] LABS: MEAN CORPUSCULAR HEMOGLOBIN 22.6 pg (27.0-33.0); MEAN CORPUSCULAR HGB CONC 28.6 g/dl (32.0-36.5); PLATELET COUNT, AUTOMATED 165 k/mm3 (150-450); RED CELL DISTRIBUTION WIDTH 17.8 % (11.5-14.5); WHITE BLOOD COUNT 6.5 K/mm3 (4.0-10.0)
[2016-07-16] MEDS: ACETAMINOPHEN 650MG ER TAB (TYLENOL ARTHRITIS) PO PRN (06:35)
[2016-07-16 07:04] LABS: BANDS 1 % (< 11); BASOPHILS 1 % (0-4); CALCIUM LEVEL 9.3 MG/DL (8.8-10.2); CREATININE FOR GFR 1.44 MG/DL (0.55-1.02); GLOMERULAR FILTRATION RATE 38.1 (>39); NUCLEATED RED BLOOD CELL 1 % (0-0); POTASSIUM SERUM 4.1 MEQ/L (3.5-5.1)
[2016-07-16 07:06] LABS: ANISOCYTOSIS 1+; HYPOCHROMASIA 2+; MICROCYTOSIS 1+
[2016-07-16] MEDS: HumaLOG INSULIN (NovoLOG) PER UNIT SC SCH ×4 (08:34→21:20)
[2016-07-16] MEDS: PROMETHAZINE 25 MG TAB PO SCH ×3 (08:34→17:52)
[2016-07-16] MEDS: COLCHICINE 0.6 MG TAB PO SCH (08:34)
[2016-07-16] MEDS: FERROUS SULFATE 325MG TAB PO SCH ×3 (08:35→21:21)
[2016-07-16] MEDS: BISOPROLOL FUM 2.5 MG PER 1/2TAB PO SCH (08:35)
[2016-07-16] MEDS: BACLOFEN 10 MG TAB PO SCH ×2 (08:35→21:22)
[2016-07-16] MEDS: LEVEMIR (INSULIN DETEMIR) 1 UNITS/0.01ML SC SCH ×2 (08:35→21:20)
[2016-07-16] MEDS: PREGABALIN 100 MG CAP (LYRICA) PO SCH ×3 (08:36→21:21)
[2016-07-16] MEDS: OMEPRAZOLE 20 MG CAP PO SCH ×2 (08:36→21:21)
[2016-07-16] MEDS: SENOKOT S TAB PO SCH ×2 (08:36→21:21)
[2016-07-16] MEDS: guaiFENesin ER 600 MG TAB PO SCH ×2 (08:36→21:21)
[2016-07-16] MEDS: METOCLOPRAMIDE 10 MG TAB PO SCH ×3 (08:36→21:22)
[2016-07-16] MEDS: LACTULOSE 20 GM/30 ML SYRUP UD PO SCH ×2 (08:36→21:19)
[2016-07-16] MEDS: levETIRAcetam 250MG TABLET (KEPPRA) PO SCH ×4 (08:36→21:21)
[2016-07-16] MEDS: predniSONE 20 MG TAB PO SCH ×2 (08:36→21:22)
[2016-07-16] MEDS: SUCRALFATE 1 GM TAB PO SCH ×2 (08:36→21:21)
[2016-07-16] MEDS: SODIUM CHLORIDE 0.9% INJ 10 ML SYR IV SCH (08:37)
[2016-07-16] MEDS: ASPIRIN 81 MG ENTERIC TAB PO SCH (08:37)
--- NOTE | 2016-07-16 08:58 | IPNPDOC ---
Subjective Date Seen The patient was seen on 07/16/16. Subjective Chief Complaint/HPI The patient is a 71-year-old female admitted with a reason for visit of Copd Exacerbation. General: Denies: Chills, Fatigue, Night Sweats Constitutional: Denies: Chills, Malaise Eyes: Denies: Conjunctivae inflammation, Eyelid inflammation, Pain, Vision change Pulmonary: Reports: Dyspnea, Denies: Cough, Pleuritic Chest Pain Cardiovascular: Denies: Chest Pain, Orthopnea, Palpitations Gastrointestinal: Denies: Abdominal Pain, Constipation, Diarrhea, Nausea, Vomiting Neurological: Denies: Numbness, Weakness Psych: Reports: Mood Normal Objective Physical Examination General Exam: Positive: Alert, Cooperative, No Acute Distress ENT Exam: Positive: Atraumatic, Mucous membr. moist/pink, Nares Patent, Tongue Midline Neck Exam: Negative: JVD Chest Exam: Positive: Diminished (throughout lung diaz, unchanged from one day prior), Negative: Rales, Rhonchi, Wheezing Heart Exam: Positive: Normal S1, Normal S2, Rate Normal Abdomen Exam: Positive: Other (obese), Soft, Negative: BS Hyperactive, BS Hypoactive, Tenderness Extremity Exam: Positive: Edema (some trace b/l LE, unchanged from one day prior ), Negative: Swelling, Tenderness Skin Exam: Positive: Nl turgor and temperature Psych Exam: Positive: Mental status NL, Oriented x 3 Assessment /Plan Problems (1) COPD exacerbation Status: Acute Response to Treatment: Stable Problem Text: continue duoneb therapy solumederol 40 mg q12h will decrease supplemental O2 as tolerated (2) Chronic respiratory failure with hypoxia Status: Acute Response to Treatment: Stable Problem Text: prednisone therapy continued, will consider weaning based on respiratory status states her SOB is better since admission last blood gas pH 7.4 HC03 32.9 and PCO2 48.6 with O2 111.7 will continue supplemental O2 and titrate as tolerated duoneb and d/c solumederol in light of increased glucose level and improvement of wheezing- prednisone was started one day prior (3) Diastolic CHF, acute on chronic Status: Chronic Response to Treatment: Stable Problem Text: holding on Lasix therapy due to ISSA seems Euvolemic at this time I&O's strict daily weights (4) Diabetes Status: Chronic Response to Treatment: Stable Problem Text: Levemir was increased to 150 BID Continue Levemir and Lispro Insulin therapy continue levemir 150 BID for tighter glucose control daily fingersticks glucose today 416 (5) Hypothyroid Status: Chronic Response to Treatment: Stable Problem Text: continue Synthroid medical therapy (6) Symptomatic anemia Status: Chronic Response to Treatment: Stable Problem Text: 9.1/31.8 H/H today occult blood neg s/p 2 units PRBC three days prior repeat H&H showed improvement after transfusion, 9.0/31.6 from 10/27.2 Iron Deficiency Anemia The patient's Hgb has been dropping from a baseline of 10-11 since May Hemodynamically stable ordered TIBC 422, ferritin 8, transferrin 8.1, iron 34, and retic # 1.82, retic count 20.3 No overt source of bleeding noted Apparently she had 2 Colonoscopies Late in 2014 which were limited due to suboptimal preparation, but no gross masses were seen, hemorrhoids were noted Iron studies ordered here suggestive of Iron Def Anemia Stool Occult Blood Test ordered Will start the patient on Ferrous Sulfate BID Consider Blood transfusion if the patient's hgb continues to drop downward (7) Seizure disorder Status: Chronic Response to Treatment: Stable Problem Text: continue Keppra medical therapy (8) MATT on CPAP Status: Chronic Response to Treatment: Stable Problem Text: continue home CPAP (9) DVT (deep venous thrombosis) Status: Chronic Problem Text: IVC filter SCD/TEDS Plan/VTE VTE Prophylaxis Ordered?: Yes Plan/Urinary Catheter Reason for insertion/continuin: Patient request VS, I&O, 24H, Fishbone Vital Signs/I&O Vital Signs Date Time Temp Pulse Resp B/P Pulse Ox O2 Delivery O2 Flow Rate FiO2 07/16/16 08:35 64 155/72 07/16/16 06:00 97.6 20 97 NIPPV (BIPAP/CPAP) 07/16/16 01:53 2.0 I&O- Last 24 Hours up to 6 AM 07/16/16 06:00 Intake Total 1320 ml Output Total 4350 ml Balance -3030 ml Laboratory Data 24H LABS Laboratory Tests 2 07/15/16 11:38: Bedside Glucose (Misc Panel) 504*H 07/15/16 12:29: Bedside Glucose Confirm (Misc) 479*H 07/15/16 16:54: Bedside Glucose Confirm (Misc) 677*H 07/15/16 18:54: Blood Urea Nitrogen 45H, Creatinine 1.83H, Sodium Level 136, Potassium Level 4.5 , Chloride Level 96L, Carbon Dioxide Level 31, Calcium Level 8.4L, Aspartate Amino Transf (AST/SGOT) 8L, Alanine Aminotransferase (ALT/SGPT) 36, Alkaline Phosphatase 69, Total Bilirubin 0.2, Total Protein 6.1L, Albumin 3.1L, Albumin/ Globulin Ratio 1.03, Anion Gap 9, Glomerular Filtration Rate 28.9L 07/15/16 20:06: B-Hydroxybutyrate 1.23, Osmolality 334H 07/15/16 20:08: Blood Gas Bicarbonate Standard 27.4, Venous Blood Base Excess 3.4H, Venous Blood pH 7.254L, Venous Blood Partial Pressure CO2 73.6H, Venous Blood Partial Pressure O2 64.0H, Venous Blood Total Carbon Dioxide 34.1H, Venous Blood HCO3 31.8H, Venous Blood Oxygen Saturation 89.2H 07/15/16 22:34: Bedside Glucose Confirm (Misc) 499*H 07/15/16 23:58: Bedside Glucose (Misc Panel) 474H 07/16/16 02:08: Bedside Glucose (Misc Panel) 389H 07/16/16 04:25: Bedside Glucose (Misc Panel) 351H 07/16/16 06:18: Anion Gap 6L, Anisocytosis 1+, Band Neutrophils 1, Basophilic Stippling 1+, White Blood Count 6.5, Red Blood Count 4.03, Hemoglobin 9.1L, Hematocrit 31.8L, Mean Corpuscular Volume 79.0L, Mean Corpuscular Hemoglobin 22.6L, Mean Corpuscular Hemoglobin Concent 28.6L, Red Cell Distribution Width 17.8H, Platelet Count 165, Neutrophils (%) (Auto) , Lymphocytes (%) (Auto) , Monocytes (%) (Auto) , Eosinophils (%) (Auto) , Basophils (%) (Auto) , Neutrophils # (Auto ) , Lymphocytes # (Auto) , Monocytes # (Auto) , Eosinophils # (Auto) , Basophils # (Auto) , Basophils (Manual) 1, Blood Urea Nitrogen 41H, Creatinine 1.44H, Sodium Level 142, Potassium Level 4.1, Chloride Level 102, Carbon Dioxide Level 34H, Calcium Level 9.3, Glomerular Filtration Rate 38.1L, Hypochromasia 2+, Large Unclassified Cells # , Large Unclassified Cells % , Lymphocytes (Manual) 23, Microcytosis 1+, Monocytes (Manual) 9H, Neutrophils 66 , Nucleated Red Blood Cells 1H, Platelet Estimate NORMAL 07/16/16 08:18: Bedside Glucose (Misc Panel) 265H CBC/BMP Laboratory Tests 07/15/16 18:54 Calcium Level 8.4 L, Aspartate Amino Transf (AST/SGOT) 8 L, Alanine Aminotransferase (ALT/SGPT) 36, Alkaline Phosphatase 69, Total Bilirubin 0.2, Total Protein 6.1 L, Albumin 3.1 L 07/16/16 06:18 Calcium Level 9.3, Red Blood Count 4.03, Mean Corpuscular Volume 79.0 L, Mean Corpuscular Hemoglobin 22.6 L, Mean Corpuscular Hemoglobin Concent 28.6 L, Red Cell Distribution Width 17.8 H, Neutrophils (%) (Auto) , Lymphocytes (%) (Auto) , Monocytes (%) (Auto) , Eosinophils (%) (Auto) , Basophils (%) (Auto) , Neutrophils # (Auto) , Lymphocytes # (Auto) , Monocytes # (Auto) , Eosinophils # (Auto) , Basophils # (Auto) Microbiology Microbiology 07/14/16 Stool Occult Blood (GORDY) - Final, Complete GME ATTESTATION GME ATTESTATION My preceptor for this patient encounter was physically present in the building during the encounter and was fully available. As needed, all aspects of the patient interview, examination, medical decision making process, and medical care plan development were reviewed and approved by the preceptor. Preceptor is aware and concurs with the plan as stated in the body of this note and will attest to such by his/her cosignature. BAHMAN BENOIT DO Jul 16, 2016 08:58
[2016-07-16] MEDS: FORMOTEROL FUMARATE 20 MCG/2 ML INHALATION SOLUTION (PERFOROMIST) INH SCH ×2 (09:05→20:54)
[2016-07-16] MEDS: BUDESONIDE 0.5 MG/2 ML INHALATION SUSPENSION INH SCH ×2 (09:05→20:54)
[2016-07-16] MEDS ORDERED: guaiFENesin ER 600 MG TAB PO ONE (11:00)
[2016-07-16] MEDS: FLUoxetine 20 MG CAP PO SCH (12:33)
[2016-07-16 14:00] VITALS: BP 137/63
[2016-07-16 22:00] VITALS: BP 149/64
[2016-07-17] MEDS: IPRATROPIUM 0.5MG/ALBUTEROL 2.5MG INH SOL UD 3ML (DUONEB)(J7620) NEB SCH ×4 (02:16→20:00)
[2016-07-17] MEDS: CIPROFLOXACIN 250 MG TAB PO SCH ×2 (05:10→17:45)
[2016-07-17] MEDS: CLINDAMYCIN 150 MG CAP PO SCH ×3 (05:10→21:38)
[2016-07-17 06:00] VITALS: BP 154/70
[2016-07-17 07:04] LABS: BASO % 0.7 % (0.0-1.0); EOS % 0.4 % (0.0-3.0); LARGE UNSTAINED CELL # 0.1 K/mm3 (0.0-0.4); LARGE UNSTAINED CELL % 1.9 % (0.0-4.0); LYMPH # 1.1 K/mm3 (1.5-4.5); LYMPH % 18.7 % (24.0-44.0); MEAN CORPUSCULAR HEMOGLOBIN 23.9 pg (27.0-33.0); MEAN CORPUSCULAR HGB CONC 29.7 g/dl (32.0-36.5); MEAN CORPUSCULAR VOLUME 80.5 fl (80.0-96.0); MONO # 0.4 K/mm3 (0.0-0.8); MONO % 5.9 % (0.0-5.0); NEUTROPHILS # 4.2 K/mm3 (1.8-7.7); NEUTROPHILS % 72.4 % (36.0-66.0); PLATELET COUNT, AUTOMATED 156 k/mm3 (150-450); RED CELL DISTRIBUTION WIDTH 18.9 % (11.5-14.5); WHITE BLOOD COUNT 5.8 K/mm3 (4.0-10.0)
[2016-07-17 07:18] LABS: CALCIUM LEVEL 8.8 MG/DL (8.8-10.2); CREATININE FOR GFR 1.29 MG/DL (0.55-1.02); GLOMERULAR FILTRATION RATE 43.2 (>39); POTASSIUM SERUM 4.3 MEQ/L (3.5-5.1)
[2016-07-17] MEDS: BUDESONIDE 0.5 MG/2 ML INHALATION SUSPENSION INH SCH ×2 (07:37→20:16)
[2016-07-17] MEDS: FORMOTEROL FUMARATE 20 MCG/2 ML INHALATION SOLUTION (PERFOROMIST) INH SCH ×2 (07:37→20:16)
--- NOTE | 2016-07-17 08:49 | IPNPDOC ---
Subjective Date Seen The patient was seen on 07/17/16. Subjective Chief Complaint/HPI The patient is a 71-year-old female admitted with a reason for visit of Copd Exacerbation. General: Denies: Chills Constitutional: Denies: Chills, Fever Eyes: Denies: Conjunctivae inflammation, Vision change Skin: Denies: Lesions, Rash Pulmonary: Reports: Cough (admits mucinex helped to bring up congestion one day prior, still complains of slight cough), Dyspnea (still states SOB at baseline with ambulation) Cardiovascular: Reports: Edema (resolving, trace pedal b/l le), Denies: Chest Pain, Orthopnea, Palpitations Gastrointestinal: Denies: Abdominal Pain, Constipation, Diarrhea, Nausea, Vomiting Neurological: Denies: Numbness, Weakness Psych: Reports: Mood Normal Objective Physical Examination General Exam: Positive: Alert, Cooperative, No Acute Distress ENT Exam: Positive: Atraumatic, Mucous membr. moist/pink, Nares Patent, Tongue Midline Neck Exam: Negative: JVD Chest Exam: Positive: Diminished (unchanged,throughout lung diaz), Negative: Rales, Rhonchi, Wheezing Heart Exam: Positive: Normal S1, Normal S2, Rate Normal Abdomen Exam: Positive: Other (obese), Soft, Negative: BS Hyperactive, BS Hypoactive, Tenderness Extremity Exam: Positive: Edema (some trace b/l LE, unchanged from one day prior ), Negative: Swelling, Tenderness Skin Exam: Positive: Nl turgor and temperature Psych Exam: Positive: Mental status NL, Oriented x 3 Assessment /Plan Problems (1) COPD exacerbation Status: Acute Response to Treatment: Stable Problem Text: continue duoneb therapy solumederol 40 mg BID, have been actively weaning will decrease supplemental O2 as tolerated (2) Chronic respiratory failure with hypoxia Status: Acute Response to Treatment: Stable Problem Text: prednisone therapy continued, will continue weaning based on respiratory status states her SOB is better since admission last blood gas pH 7.4 HC03 32.9 and PCO2 48.6 with O2 111.7 will continue supplemental O2 and titrate as tolerated duoneb and d/c solumederol in light of increased glucose level and improvement of wheezing- prednisone was started one day prior (3) Diastolic CHF, acute on chronic Status: Chronic Response to Treatment: Stable Problem Text: holding on Lasix therapy due to ISSA seems Euvolemic at this time I&O's net negative 830 mL past 24 hr strict daily weights (4) Diabetes Status: Chronic Response to Treatment: Stable Problem Text: Levemir 140 BID Continue Levemir and Lispro Insulin therapy continue levemir 150 BID for tighter glucose control daily fingersticks glucose today 305, improved (5) Cough Status: Acute Response to Treatment: Stable Problem Text: pt has complained of wet cough, hard to bring up sputum mucinex therapy has not helped nor has acapella repeat CXR essentially unchanged from prior on admission will give 1x dose of 20 torsemide now continue to monitor (6) Hypothyroid Status: Chronic Response to Treatment: Stable Problem Text: continue Synthroid medical therapy (7) Symptomatic anemia Status: Chronic Response to Treatment: Stable Problem Text: 9.1/30.5 H/H today occult blood neg s/p 2 units PRBC four days prior repeat H&H showed improvement after transfusion, 9.0/31.6 from 10/27.2 Iron Deficiency Anemia The patient's Hgb has been dropping from a baseline of 10-11 since May Hemodynamically stable ordered TIBC 422, ferritin 8, transferrin 8.1, iron 34, and retic # 1.82, retic count 20.3 No overt source of bleeding noted Apparently she had 2 Colonoscopies Late in 2014 which were limited due to suboptimal preparation, but no gross masses were seen, hemorrhoids were noted Iron studies ordered here suggestive of Iron Def Anemia Stool Occult Blood Test ordered Will start the patient on Ferrous Sulfate BID Consider Blood transfusion if the patient's hgb continues to drop downward (8) Seizure disorder Status: Chronic Response to Treatment: Stable Problem Text: continue Keppra medical therapy (9) MATT on CPAP Status: Chronic Response to Treatment: Stable Problem Text: continue home CPAP (10) DVT (deep venous thrombosis) Status: Chronic Problem Text: IVC filter SCD/TEDS Plan/VTE VTE Prophylaxis Ordered?: Yes Plan/Urinary Catheter Reason for insertion/continuin: Patient request VS, I&O, 24H, Fishbone Vital Signs/I&O Vital Signs Date Time Temp Pulse Resp B/P Pulse Ox O2 Delivery O2 Flow Rate FiO2 07/17/16 06:00 97.7 64 18 154/70 96 NIPPV (BIPAP/CPAP) 2.0 I&O- Last 24 Hours up to 6 AM 07/17/16 06:00 Intake Total 690 ml Output Total 1550 ml Balance -860 ml Laboratory Data 24H LABS Laboratory Tests 2 07/16/16 12:07: Bedside Glucose (Misc Panel) 295H 07/16/16 16:58: Bedside Glucose (Misc Panel) 242H 07/16/16 21:10: Bedside Glucose (Misc Panel) 383H 07/17/16 05:09: Anion Gap 7L, White Blood Count 5.8, Red Blood Count 3.79L, Hemoglobin 9.1L, Hematocrit 30.5L, Mean Corpuscular Volume 80.5, Mean Corpuscular Hemoglobin 23.9L, Mean Corpuscular Hemoglobin Concent 29.7L, Red Cell Distribution Width 18.9H, Platelet Count 156, Neutrophils (%) (Auto) 72.4H, Lymphocytes (%) (Auto) 18.7L, Monocytes (%) (Auto) 5.9H, Eosinophils (%) (Auto) 0.4, Basophils (%) ( Auto) 0.7, Neutrophils # (Auto) 4.2, Lymphocytes # (Auto) 1.1L, Monocytes # ( Auto) 0.4, Eosinophils # (Auto) 0.0, Basophils # (Auto) 0.0, Blood Urea Nitrogen 34H, Creatinine 1.29H, Sodium Level 142, Potassium Level 4.3, Chloride Level 103, Carbon Dioxide Level 32, Calcium Level 8.8, Glomerular Filtration Rate 43.2, Large Unclassified Cells # 0.1, Large Unclassified Cells % 1.9 CBC/BMP Laboratory Tests 07/17/16 05:09 Calcium Level 8.8, Red Blood Count 3.79 L, Mean Corpuscular Volume 80.5, Mean Corpuscular Hemoglobin 23.9 L, Mean Corpuscular Hemoglobin Concent 29.7 L, Red Cell Distribution Width 18.9 H, Neutrophils (%) (Auto) 72.4 H, Lymphocytes (%) ( Auto) 18.7 L, Monocytes (%) (Auto) 5.9 H, Eosinophils (%) (Auto) 0.4, Basophils (%) (Auto) 0.7, Neutrophils # (Auto) 4.2, Lymphocytes # (Auto) 1.1 L, Monocytes # (Auto) 0.4, Eosinophils # (Auto) 0.0, Basophils # (Auto) 0.0 Microbiology Microbiology 07/14/16 Stool Occult Blood (GORDY) - Final, Complete GME ATTESTATION GME ATTESTATION My preceptor for this patient encounter was physically present in the building during the encounter and was fully available. As needed, all aspects of the patient interview, examination, medical decision making process, and medical care plan development were reviewed and approved by the preceptor. Preceptor is aware and concurs with the plan as stated in the body of this note and will attest to such by his/her cosignature. BAHMAN BENOIT DO Jul 17, 2016 08:49
[2016-07-17] MEDS: PROMETHAZINE 25 MG TAB PO SCH ×3 (10:04→17:45)
[2016-07-17] MEDS: levETIRAcetam 250MG TABLET (KEPPRA) PO SCH ×4 (10:04→21:38)
[2016-07-17] MEDS: COLCHICINE 0.6 MG TAB PO SCH (10:04)
[2016-07-17] MEDS: BISOPROLOL FUM 2.5 MG PER 1/2TAB PO SCH (10:04)
[2016-07-17] MEDS: LACTULOSE 20 GM/30 ML SYRUP UD PO SCH ×2 (10:04→21:37)
[2016-07-17] MEDS: BACLOFEN 10 MG TAB PO SCH ×2 (10:04→21:37)
[2016-07-17] MEDS: guaiFENesin ER 600 MG TAB PO SCH ×2 (10:05→21:37)
[2016-07-17] MEDS: ASPIRIN 81 MG ENTERIC TAB PO SCH (10:05)
[2016-07-17] MEDS: FERROUS SULFATE 325MG TAB PO SCH ×2 (10:05→21:38)
[2016-07-17] MEDS: SPIRONOLACTONE 25 MG TAB PO SCH (10:05)
[2016-07-17] MEDS: SUCRALFATE 1 GM TAB PO SCH ×2 (10:05→21:37)
[2016-07-17] MEDS: OMEPRAZOLE 20 MG CAP PO SCH ×2 (10:05→21:37)
[2016-07-17] MEDS: SENOKOT S TAB PO SCH ×2 (10:05→21:37)
[2016-07-17] MEDS: METOCLOPRAMIDE 10 MG TAB PO SCH ×3 (10:05→21:38)
[2016-07-17] MEDS: TORSEMIDE 20 MG TAB PO SCH (10:05)
[2016-07-17] MEDS: PREGABALIN 100 MG CAP (LYRICA) PO SCH ×3 (10:06→21:37)
[2016-07-17] MEDS: SODIUM CHLORIDE 0.9% INJ 10 ML SYR IV SCH (10:06)
[2016-07-17] MEDS: predniSONE 20 MG TAB PO SCH ×2 (10:06→21:37)
[2016-07-17] MEDS: HumaLOG INSULIN (NovoLOG) PER UNIT SC SCH ×4 (10:07→21:38)
[2016-07-17] MEDS: LEVEMIR (INSULIN DETEMIR) 1 UNITS/0.01ML SC SCH ×2 (10:07→21:39)
--- NOTE | 2016-07-17 12:47 | REP ---
Cough. COMPARISON: 07/11/2016 The technique utilized in obtaining the radiograph has magnified the cardiac silhouette and accentuated the interstitial markings. Cardiomediastinal silhouette and lung diaz are unchanged. The tip of the central venous catheter is unchanged. There is cardiomegaly accentuated by technique. There is evidence of scattered parenchymal fibrosis accentuated by technique. IMPRESSION: No significant change from the prior exam as described above. Signed by Gartet Olsen DO 07/17/2016 02:09 P
[2016-07-17] MEDS: FLUoxetine 20 MG CAP PO SCH (13:17)
[2016-07-17] MEDS ORDERED: TORSEMIDE 20 MG TAB PO ONE (13:45)
[2016-07-17 14:00] VITALS: BP 166/70
[2016-07-17] MEDS: ACETAMINOPHEN 650MG ER TAB (TYLENOL ARTHRITIS) PO PRN (18:29)
[2016-07-17 22:00] VITALS: BP 127/58
[2016-07-18] MEDS: IPRATROPIUM 0.5MG/ALBUTEROL 2.5MG INH SOL UD 3ML (DUONEB)(J7620) NEB SCH ×4 (01:06→19:25)
[2016-07-18] MEDS: SODIUM CHLORIDE 0.9% INJ 10 ML SYR IV PRN (05:09)
[2016-07-18] MEDS: CLINDAMYCIN 150 MG CAP PO SCH ×3 (05:14→21:34)
[2016-07-18] MEDS: CIPROFLOXACIN 250 MG TAB PO SCH ×2 (05:14→17:35)
[2016-07-18 05:30] LABS: BASO % 0.3 % (0.0-1.0); EOS # 0.1 K/mm3 (0.0-0.50); EOS % 1.7 % (0.0-3.0); LARGE UNSTAINED CELL # 0.1 K/mm3 (0.0-0.4); LARGE UNSTAINED CELL % 1.6 % (0.0-4.0); LYMPH # 1.3 K/mm3 (1.5-4.5); LYMPH % 17.2 % (24.0-44.0); MEAN CORPUSCULAR VOLUME 79.5 fl (80.0-96.0); MONO # 0.4 K/mm3 (0.0-0.8); MONO % 5.5 % (0.0-5.0); NEUTROPHILS # 4.9 K/mm3 (1.8-7.7); NEUTROPHILS % 73.8 % (36.0-66.0); PLATELET COUNT, AUTOMATED 209 k/mm3 (150-450); RED CELL DISTRIBUTION WIDTH 19.2 % (11.5-14.5); WHITE BLOOD COUNT 6.7 K/mm3 (4.0-10.0)
[2016-07-18 05:49] LABS: CALCIUM LEVEL 8.3 MG/DL (8.8-10.2); CREATININE FOR GFR 1.46 MG/DL (0.55-1.02); GLOMERULAR FILTRATION RATE 37.5 (>39); POTASSIUM SERUM 3.9 MEQ/L (3.5-5.1)
[2016-07-18 06:00] VITALS: BP 153/66
[2016-07-18] MEDS: HumaLOG INSULIN (NovoLOG) PER UNIT SC SCH ×4 (07:30→21:34)
[2016-07-18] MEDS: FORMOTEROL FUMARATE 20 MCG/2 ML INHALATION SOLUTION (PERFOROMIST) INH SCH ×2 (07:41→19:25)
[2016-07-18] MEDS: BUDESONIDE 0.5 MG/2 ML INHALATION SUSPENSION INH SCH ×2 (07:41→19:25)
[2016-07-18] MEDS: LACTULOSE 20 GM/30 ML SYRUP UD PO SCH ×2 (08:28→21:33)
[2016-07-18] MEDS: COLCHICINE 0.6 MG TAB PO SCH (08:29)
[2016-07-18] MEDS: FERROUS SULFATE 325MG TAB PO SCH ×2 (08:29→21:35)
[2016-07-18] MEDS: PROMETHAZINE 25 MG TAB PO SCH ×3 (08:30→17:34)
[2016-07-18] MEDS: ACETAMINOPHEN 650MG ER TAB (TYLENOL ARTHRITIS) PO PRN (08:30)
[2016-07-18] MEDS: predniSONE 20 MG TAB PO SCH ×2 (08:31→21:35)
[2016-07-18] MEDS: BACLOFEN 10 MG TAB PO SCH ×2 (08:31→21:35)
[2016-07-18] MEDS: PREGABALIN 100 MG CAP (LYRICA) PO SCH ×3 (08:32→21:34)
[2016-07-18] MEDS: SENOKOT S TAB PO SCH ×2 (08:32→21:35)
[2016-07-18] MEDS: ASPIRIN 81 MG ENTERIC TAB PO SCH (08:33)
[2016-07-18] MEDS: METOCLOPRAMIDE 10 MG TAB PO SCH ×3 (08:33→21:35)
[2016-07-18] MEDS: levETIRAcetam 250MG TABLET (KEPPRA) PO SCH ×4 (08:33→21:35)
[2016-07-18] MEDS: SPIRONOLACTONE 25 MG TAB PO SCH (08:33)
[2016-07-18] MEDS: TORSEMIDE 20 MG TAB PO SCH (08:34)
[2016-07-18] MEDS: SUCRALFATE 1 GM TAB PO SCH ×2 (08:34→21:35)
[2016-07-18] MEDS: OMEPRAZOLE 20 MG CAP PO SCH ×2 (08:34→21:35)
[2016-07-18] MEDS: guaiFENesin ER 600 MG TAB PO SCH ×2 (08:34→21:35)
[2016-07-18] MEDS: LEVEMIR (INSULIN DETEMIR) 1 UNITS/0.01ML SC SCH ×2 (08:35→21:34)
[2016-07-18] MEDS: SODIUM CHLORIDE 0.9% INJ 10 ML SYR IV SCH (08:41)
[2016-07-18] MEDS: BISOPROLOL FUM 2.5 MG PER 1/2TAB PO SCH (08:43)
[2016-07-18] MEDS: FLUoxetine 20 MG CAP PO SCH (12:17)
--- NOTE | 2016-07-18 13:15 | IPNPDOC ---
Text Note Date of Service The patient was seen on 07/18/16. NOTE Subjective: Patient is a 71 year old female with a PMHx of COPD on 2L O2, CHF (DD1 ), MATT, IDDM2, HTN, Seizure disorder, Paralyzed hemidiaphragm, Hx of DVT s/p IVC filter, Irritable bowel syndrome, Migraine headaches, Depression, Morbid obesity and GERD. She presented to the ER with worsening shortness of breath and productive cough for 2-3 days. She was admitted for COPD exacerbation. Patient was seen and examined at the bedside. Objective: Vitals (See below) General: Lying in bed, no acute distress, comfortable, AAOx3 HEENT: NC, AT CVS: RRR, +S1S2 Lungs: Fair air entry b/l, mild wheezing at b/l lung bases, no appreciable crackles Abdomen: Soft, ND, NT, +BSx4 Extremities: +PPx4, No pitting edema, - Calf tenderness Assessment and plan: 1. Chronic respiratory failure with hypoxia and acute COPD exacerbation - Presented with SOB and productive cough - Physical reveals some wheezing still - CXR 07/11 and 07/17 do not reveal any significant opacities - s/p Solumedrol; c/w Prednisone (will continue to taper) - c/w inhaled therapy - c/w supplemental oxygen and titrate down if possible 2. Diastolic CHF - appeared to have slight increase in volume yesterday - Currently euvolemic - Has remained net negative throughout hospital course - s/p additional dose of Torsemide 20 mg yesterday - c/w Spironolactone 25 and Torsemide 20 at this time 3. Uncontrolled IDDM2 - likely 2/2 steroid use - Bolus coverage with Lispro has been adjusted - Basal coverage with Levemir has been increased - Will continue to monitor and adjust as steroids are tapered down 4. Hypothyroidism - c/w Synthroid 5. s/p Symptomatic Anemia - possibly 2/2 upper GI source - From admission Hg trended down to 7.0 - s/p 2 units of PRBC - Hg remains stable - Will need outpatient referral for EGD - c/w ferrous sulfate and omeprazole 6. Seizure disorder - c/w keppra 7. MATT on CPAP - allow home CPAP use 8. HTN - BP moderately controlled - c/w Bisoprolol, Torsemide, Spironolactone, 9. Hx of DVT - s/p IVC filter 10. Irritable bowel syndrome 11. Migraine headaches - c/w Tylenol 12. Depression - c/w Fluoxetine 13. Morbid obesity - complicating medical therapy 14. GERD - c/w omeprazole 15. DVT prophylaxis - c/w SCDs VS,Fishbone, I+O VS, Fishbone, I+O Laboratory Tests 07/18/16 05:13 Calcium Level 8.3 L, Red Blood Count 3.88 L, Mean Corpuscular Volume 79.5 L, Mean Corpuscular Hemoglobin 23.0 L, Mean Corpuscular Hemoglobin Concent 29.0 L, Red Cell Distribution Width 19.2 H, Neutrophils (%) (Auto) 73.8 H, Lymphocytes ( %) (Auto) 17.2 L, Monocytes (%) (Auto) 5.5 H, Eosinophils (%) (Auto) 1.7, Basophils (%) (Auto) 0.3, Neutrophils # (Auto) 4.9, Lymphocytes # (Auto) 1.3 L, Monocytes # (Auto) 0.4, Eosinophils # (Auto) 0.1, Basophils # (Auto) 0.0 Vital Signs Date Time Temp Pulse Resp B/P Pulse Ox O2 Delivery O2 Flow Rate FiO2 07/18/16 09:23 Nasal Cannula 2.0 07/18/16 08:43 76 145/91 07/18/16 08:40 20 07/18/16 06:00 98.6 96 I&O- Last 24 Hours up to 6 AM 07/18/16 06:00 Intake Total 1470 ml Output Total 3550 ml Balance -2080 ml GURVINDER LEONARD MD Jul 18, 2016 13:15
[2016-07-18 15:47] VITALS: BP 147/59
[2016-07-18 22:00] VITALS: BP 131/56
[2016-07-19] MEDS: IPRATROPIUM 0.5MG/ALBUTEROL 2.5MG INH SOL UD 3ML (DUONEB)(J7620) NEB SCH ×4 (01:59→20:00)
[2016-07-19] MEDS: CIPROFLOXACIN 250 MG TAB PO SCH ×2 (05:22→17:50)
[2016-07-19] MEDS: CLINDAMYCIN 150 MG CAP PO SCH ×3 (05:22→21:44)
[2016-07-19 06:00] VITALS: BP 131/60
[2016-07-19] MEDS: ACETAMINOPHEN 650MG ER TAB (TYLENOL ARTHRITIS) PO PRN ×2 (06:40→21:47)
[2016-07-19 07:48] LABS: BASO % 0.5 % (0.0-1.0); EOS # 0.1 K/mm3 (0.0-0.50); EOS % 0.8 % (0.0-3.0); LARGE UNSTAINED CELL # 0.1 K/mm3 (0.0-0.4); LARGE UNSTAINED CELL % 1.9 % (0.0-4.0); LYMPH # 1.9 K/mm3 (1.5-4.5); MEAN CORPUSCULAR HEMOGLOBIN 22.9 pg (27.0-33.0); MEAN CORPUSCULAR HGB CONC 28.7 g/dl (32.0-36.5); MEAN CORPUSCULAR VOLUME 79.7 fl (80.0-96.0); MONO # 0.5 K/mm3 (0.0-0.8); MONO % 6.3 % (0.0-5.0); NEUTROPHILS # 4.6 K/mm3 (1.8-7.7); NEUTROPHILS % 63.6 % (36.0-66.0); PLATELET COUNT, AUTOMATED 198 k/mm3 (150-450); RED CELL DISTRIBUTION WIDTH 20.3 % (11.5-14.5); WHITE BLOOD COUNT 7.2 K/mm3 (4.0-10.0)
[2016-07-19 08:06] LABS: ADD MORPHOLOGY? YES
[2016-07-19] MEDS: BUDESONIDE 0.5 MG/2 ML INHALATION SUSPENSION INH SCH ×2 (08:08→20:25)
[2016-07-19] MEDS: FORMOTEROL FUMARATE 20 MCG/2 ML INHALATION SOLUTION (PERFOROMIST) INH SCH ×2 (08:08→20:25)
[2016-07-19 08:14] LABS: ALBUMIN 2.8 GM/DL (3.2-5.2); ALBUMIN/GLOBULIN RATIO 0.9 (1.00-1.93); BILIRUBIN,TOTAL 0.3 MG/DL (0.2-1.0); CALCIUM LEVEL 8.5 MG/DL (8.8-10.2); CREATININE FOR GFR 1.42 MG/DL (0.55-1.02); GLOMERULAR FILTRATION RATE 38.7 (>39); MAGNESIUM LEVEL 2.8 MG/DL (1.8-2.4); POTASSIUM SERUM 3.9 MEQ/L (3.5-5.1); TOTAL PROTEIN 5.9 GM/DL (6.4-8.2)
[2016-07-19 08:39] LABS: MICROCYTOSIS 1+; POLYCHROMASIA 1+
[2016-07-19 08:40] LABS: ANISOCYTOSIS 1+
[2016-07-19] MEDS: LEVEMIR (INSULIN DETEMIR) 1 UNITS/0.01ML SC SCH ×2 (08:47→21:45)
[2016-07-19] MEDS: HumaLOG INSULIN (NovoLOG) PER UNIT SC SCH ×4 (08:47→21:45)
[2016-07-19] MEDS: PROMETHAZINE 25 MG TAB PO SCH ×3 (08:47→17:50)
[2016-07-19] MEDS: COLCHICINE 0.6 MG TAB PO SCH (08:48)
[2016-07-19] MEDS: BACLOFEN 10 MG TAB PO SCH ×2 (08:49→21:44)
[2016-07-19] MEDS: SENOKOT S TAB PO SCH ×2 (08:49→21:44)
[2016-07-19] MEDS: ASPIRIN 81 MG ENTERIC TAB PO SCH (08:49)
[2016-07-19] MEDS: SPIRONOLACTONE 25 MG TAB PO SCH (08:49)
[2016-07-19] MEDS: predniSONE 20 MG TAB PO SCH (08:49)
[2016-07-19] MEDS: OMEPRAZOLE 20 MG CAP PO SCH ×2 (08:49→21:44)
[2016-07-19] MEDS: levETIRAcetam 250MG TABLET (KEPPRA) PO SCH ×4 (08:49→21:44)
[2016-07-19] MEDS: SUCRALFATE 1 GM TAB PO SCH ×2 (08:49→21:47)
[2016-07-19] MEDS: BISOPROLOL FUM 2.5 MG PER 1/2TAB PO SCH (08:49)
[2016-07-19] MEDS: LACTULOSE 20 GM/30 ML SYRUP UD PO SCH ×2 (08:49→21:44)
[2016-07-19] MEDS: PREGABALIN 100 MG CAP (LYRICA) PO SCH ×3 (08:49→21:47)
[2016-07-19] MEDS: METOCLOPRAMIDE 10 MG TAB PO SCH ×3 (08:49→21:44)
[2016-07-19] MEDS: TORSEMIDE 20 MG TAB PO SCH (08:49)
[2016-07-19] MEDS: SODIUM CHLORIDE 0.9% INJ 10 ML SYR IV SCH (08:50)
[2016-07-19] MEDS: FERROUS SULFATE 325MG TAB PO SCH ×2 (08:50→21:44)
[2016-07-19] MEDS: guaiFENesin ER 600 MG TAB PO SCH ×2 (08:50→21:45)
[2016-07-19] MEDS: FLUoxetine 20 MG CAP PO SCH (12:15)
--- NOTE | 2016-07-19 12:25 | IPNPDOC ---
Subjective Date Seen The patient was seen on 07/19/16. Subjective Chief Complaint/HPI The patient is a 71-year-old female admitted with a reason for visit of Copd Exacerbation. General: Denies: Chills Constitutional: Reports: Fatigue, Denies: Chills, Fever, Malaise, Night Sweats, Weakness Eyes: Denies: Conjunctivae inflammation, Eyelid inflammation, Pain, Vision change Skin: Denies: Rash Pulmonary: Denies: Cough, Dyspnea, Pleuritic Chest Pain Cardiovascular: Denies: Chest Pain, Orthopnea, Palpitations Gastrointestinal: Denies: Abdominal Pain, Nausea, Vomiting Genitourinary: Denies: Dysuria Musculoskeletal: Denies: Neck Pain, Spasms Neurological: Denies: Incoordination, Numbness, Weakness Psych: Reports: Mood Normal Objective Physical Examination General Exam: Positive: Alert, Cooperative, No Acute Distress ENT Exam: Positive: Atraumatic, Mucous membr. moist/pink, Nares Patent, Tongue Midline Neck Exam: Negative: JVD Chest Exam: Positive: Diminished (unchanged,throughout lung diaz), Negative: Rales, Rhonchi, Wheezing Heart Exam: Positive: Normal S1, Normal S2, Rate Normal Abdomen Exam: Positive: Other (obese), Soft, Negative: BS Hyperactive, BS Hypoactive, Tenderness Extremity Exam: Positive: Edema (some trace b/l LE, unchanged from one day prior ), Negative: Swelling, Tenderness Skin Exam: Positive: Nl turgor and temperature Psych Exam: Positive: Mental status NL, Oriented x 3 Assessment /Plan Problems (1) COPD exacerbation Status: Acute Response to Treatment: Stable Problem Text: continue duoneb therapy prednisone therapy, have been actively weaning will decrease supplemental O2 as tolerated (2) Chronic respiratory failure with hypoxia Status: Acute Response to Treatment: Stable Problem Text: prednisone therapy continued, weaning based on respiratory status states her SOB is better since admission will continue supplemental O2 and titrate as tolerated duoneb and d/c solumederol in light of increased glucose level and improvement of wheezing- prednisone was started (3) Diastolic CHF, acute on chronic Status: Chronic Response to Treatment: Stable Problem Text: seems Euvolemic at this time I&O's net negative 1165 mL past 24 hr strict daily weights continue with spirolactone and torsemide therapy (4) Diabetes Status: Chronic Response to Treatment: Stable Problem Text: Levemir was increased, lispro was adjusted c/w Levemir and Lispro Insulin therapy daily fingersticks glucose today 191 , improved (5) Cough Status: Acute Response to Treatment: Stable Problem Text: pt still complains of wet cough, hard to bring up sputum mucinex therapy has not helped will continue acapella repeat CXR essentially unchanged from prior on admission c/w torsemide therapy continue to monitor (6) Hypothyroid Status: Chronic Response to Treatment: Stable Problem Text: continue Synthroid medical therapy (7) Symptomatic anemia Status: Chronic Response to Treatment: Stable Problem Text: 8.9/31.1 H/H today, stable will likely need outpt EGD for further evaluation c/w ferrous and carafate medical therapy occult blood neg s/p 2 units PRBC repeat H&H showed improvement after transfusion, 9.0/31.6 from 10/27.2 Iron Deficiency Anemia The patient's Hgb has been dropping from a baseline of 10-11 since May Hemodynamically stable ordered TIBC 422, ferritin 8, transferrin 8.1, iron 34, and retic # 1.82, retic count 20.3 No overt source of bleeding noted Apparently she had 2 Colonoscopies Late in 2014 which were limited due to suboptimal preparation, but no gross masses were seen, hemorrhoids were noted Iron studies ordered here suggestive of Iron Def Anemia Stool Occult Blood Test ordered Will start the patient on Ferrous Sulfate BID Consider Blood transfusion if the patient's hgb continues to drop downward (8) Seizure disorder Status: Chronic Response to Treatment: Stable Problem Text: continue Keppra medical therapy (9) MATT on CPAP Status: Chronic Response to Treatment: Stable Problem Text: continue home CPAP (10) DVT (deep venous thrombosis) Status: Chronic Problem Text: IVC filter SCD/TEDS Plan/VTE VTE Prophylaxis Ordered?: Yes Plan/Urinary Catheter Reason for insertion/continuin: Patient request VS, I&O, 24H, Fishbone Vital Signs/I&O Vital Signs Date Time Temp Pulse Resp B/P Pulse Ox O2 Delivery O2 Flow Rate FiO2 07/19/16 08:49 68 131/60 07/19/16 08:45 Nasal Cannula 2.0 07/19/16 06:00 97.1 16 96 I&O- Last 24 Hours up to 6 AM 07/19/16 06:00 Intake Total 2035 ml Output Total 2200 ml Balance -165 ml Laboratory Data 24H LABS Laboratory Tests 2 07/18/16 16:32: Bedside Glucose (Misc Panel) 400H 07/18/16 20:52: Bedside Glucose (Misc Panel) 380H 07/19/16 04:45: Bedside Glucose (Misc Panel) 247H 07/19/16 07:01: Bedside Glucose (Misc Panel) 200H 07/19/16 07:28: Blood Urea Nitrogen 37H, Creatinine 1.42H, Sodium Level 143, Potassium Level 3.9 , Chloride Level 101, Carbon Dioxide Level 35H, Calcium Level 8.5L, Aspartate Amino Transf (AST/SGOT) 16, Alanine Aminotransferase (ALT/SGPT) 34, Alkaline Phosphatase 58, Total Bilirubin 0.3, Total Protein 5.9L, Albumin 2.8L, Albumin/ Globulin Ratio 0.90L, Anion Gap 7L, Anisocytosis 1+, Basophilic Stippling 1+, White Blood Count 7.2, Red Blood Count 3.90L, Hemoglobin 8.9L, Hematocrit 31.1L , Mean Corpuscular Volume 79.7L, Mean Corpuscular Hemoglobin 22.9L, Mean Corpuscular Hemoglobin Concent 28.7L, Red Cell Distribution Width 20.3H, Platelet Count 198, Neutrophils (%) (Auto) 63.6, Lymphocytes (%) (Auto) 27.0, Monocytes (%) (Auto) 6.3H, Eosinophils (%) (Auto) 0.8, Basophils (%) (Auto) 0.5 , Neutrophils # (Auto) 4.6, Lymphocytes # (Auto) 1.9, Monocytes # (Auto) 0.5, Eosinophils # (Auto) 0.1, Basophils # (Auto) 0.0, Glomerular Filtration Rate 38.7L, Large Unclassified Cells # 0.1, Large Unclassified Cells % 1.9, Magnesium Level 2.8H, Microcytosis 1+, Platelet Estimate NORMAL, Polychromasia 1 + 07/19/16 11:35: Bedside Glucose (Misc Panel) 242H CBC/BMP Laboratory Tests 07/19/16 07:28 Calcium Level 8.5 L, Aspartate Amino Transf (AST/SGOT) 16, Alanine Aminotransferase (ALT/SGPT) 34, Alkaline Phosphatase 58, Total Bilirubin 0.3, Total Protein 5.9 L, Albumin 2.8 L, Red Blood Count 3.90 L, Mean Corpuscular Volume 79.7 L, Mean Corpuscular Hemoglobin 22.9 L, Mean Corpuscular Hemoglobin Concent 28.7 L, Red Cell Distribution Width 20.3 H, Neutrophils (%) (Auto) 63.6 , Lymphocytes (%) (Auto) 27.0, Monocytes (%) (Auto) 6.3 H, Eosinophils (%) (Auto ) 0.8, Basophils (%) (Auto) 0.5, Neutrophils # (Auto) 4.6, Lymphocytes # (Auto) 1.9, Monocytes # (Auto) 0.5, Eosinophils # (Auto) 0.1, Basophils # (Auto) 0.0 Microbiology Microbiology 07/14/16 Stool Occult Blood (GORDY) - Final, Complete GME ATTESTATION GME ATTESTATION My preceptor for this patient encounter was physically present in the building during the encounter and was fully available. As needed, all aspects of the patient interview, examination, medical decision making process, and medical care plan development were reviewed and approved by the preceptor. Preceptor is aware and concurs with the plan as stated in the body of this note and will attest to such by his/her cosignature. BAHMAN BENOIT DO Jul 19, 2016 12:25
[2016-07-19 14:00] VITALS: BP 145/70
[2016-07-19] MEDS: predniSONE 10 MG TAB PO SCH (21:44)
[2016-07-19 22:00] VITALS: BP 133/60
[2016-07-20] MEDS: IPRATROPIUM 0.5MG/ALBUTEROL 2.5MG INH SOL UD 3ML (DUONEB)(J7620) NEB SCH ×4 (02:10→20:00)
[2016-07-20] MEDS: CIPROFLOXACIN 250 MG TAB PO SCH ×2 (05:07→17:05)
[2016-07-20] MEDS: CLINDAMYCIN 150 MG CAP PO SCH ×3 (05:07→21:03)
[2016-07-20 05:39] LABS: BASO % 0.4 % (0.0-1.0); EOS % 0.5 % (0.0-3.0); LARGE UNSTAINED CELL # 0.2 K/mm3 (0.0-0.4); LARGE UNSTAINED CELL % 1.8 % (0.0-4.0); LYMPH # 1.5 K/mm3 (1.5-4.5); LYMPH % 16.2 % (24.0-44.0); MEAN CORPUSCULAR HEMOGLOBIN 22.9 pg (27.0-33.0); MEAN CORPUSCULAR VOLUME 81.9 fl (80.0-96.0); MONO # 0.5 K/mm3 (0.0-0.8); MONO % 5.8 % (0.0-5.0); NEUTROPHILS # 6.1 K/mm3 (1.8-7.7); NEUTROPHILS % 75.2 % (36.0-66.0); PLATELET COUNT, AUTOMATED 238 k/mm3 (150-450); WHITE BLOOD COUNT 8.1 K/mm3 (4.0-10.0)
[2016-07-20 06:00] VITALS: BP 140/65
[2016-07-20 06:40] LABS: ALBUMIN 3.1 GM/DL (3.2-5.2); ALBUMIN/GLOBULIN RATIO 1.07 (1.00-1.93); BILIRUBIN,TOTAL 0.2 MG/DL (0.2-1.0); CALCIUM LEVEL 8.6 MG/DL (8.8-10.2); CREATININE FOR GFR 1.56 MG/DL (0.55-1.02); GLOMERULAR FILTRATION RATE 34.7 (>39); MAGNESIUM LEVEL 2.9 MG/DL (1.8-2.4)
[2016-07-20] MEDS: PROMETHAZINE 25 MG TAB PO SCH ×3 (08:21→17:05)
[2016-07-20] MEDS: FERROUS SULFATE 325MG TAB PO SCH ×2 (08:21→21:03)
[2016-07-20] MEDS: HumaLOG INSULIN (NovoLOG) PER UNIT SC SCH ×4 (08:21→21:05)
[2016-07-20] MEDS: COLCHICINE 0.6 MG TAB PO SCH (08:21)
[2016-07-20] MEDS: levETIRAcetam 250MG TABLET (KEPPRA) PO SCH ×4 (08:22→21:03)
[2016-07-20] MEDS: BACLOFEN 10 MG TAB PO SCH ×2 (08:22→21:04)
[2016-07-20] MEDS: SUCRALFATE 1 GM TAB PO SCH ×2 (08:22→21:04)
[2016-07-20] MEDS: OMEPRAZOLE 20 MG CAP PO SCH ×2 (08:22→21:03)
[2016-07-20] MEDS: METOCLOPRAMIDE 10 MG TAB PO SCH ×3 (08:22→21:03)
[2016-07-20] MEDS: predniSONE 10 MG TAB PO SCH ×2 (08:22→21:03)
[2016-07-20] MEDS: SENOKOT S TAB PO SCH ×2 (08:22→21:04)
[2016-07-20] MEDS: PREGABALIN 100 MG CAP (LYRICA) PO SCH ×3 (08:22→21:04)
[2016-07-20] MEDS: TORSEMIDE 20 MG TAB PO SCH (08:22)
[2016-07-20] MEDS: guaiFENesin ER 600 MG TAB PO SCH ×2 (08:22→21:04)
[2016-07-20] MEDS: LACTULOSE 20 GM/30 ML SYRUP UD PO SCH ×2 (08:23→21:03)
[2016-07-20] MEDS: ASPIRIN 81 MG ENTERIC TAB PO SCH (08:23)
[2016-07-20] MEDS: SPIRONOLACTONE 25 MG TAB PO SCH (08:23)
[2016-07-20] MEDS: LEVEMIR (INSULIN DETEMIR) 1 UNITS/0.01ML SC SCH (08:23)
[2016-07-20] MEDS: BISOPROLOL FUM 2.5 MG PER 1/2TAB PO SCH (08:23)
[2016-07-20] MEDS: SODIUM CHLORIDE 0.9% INJ 10 ML SYR IV SCH (08:24)
[2016-07-20] MEDS: FORMOTEROL FUMARATE 20 MCG/2 ML INHALATION SOLUTION (PERFOROMIST) INH SCH ×2 (08:49→20:06)
[2016-07-20] MEDS: BUDESONIDE 0.5 MG/2 ML INHALATION SUSPENSION INH SCH ×2 (08:49→20:06)
--- NOTE | 2016-07-20 11:16 | IPN ---
DATE OF SERVICE: 07/20/2016 The patient seen and examined at the bedside. Chart has been reviewed. This morning, the patient still complains of congestion, productive cough, inspiratory wheezing. Able to sleep. No chest pain, pressure, or tightness. Tolerating her diet well. The patient is nonambulatory at baseline. Is usually wheelchair and bed bound. No other issues per nursing. No fever or chills. Temperature 97.2, pulse 66, respiratory rate 20, blood pressure 140/65, 97% on 2 liters nasal cannula. Fingersticks 247, 200, 242, 368, 332. Generally, awake, alert, oriented times three. Answering questions appropriately. No use of respiratory accessory muscles. Able to speak in full sentences. Lungs: Diminished bilateral wheezing. No crackles. Air entry is diminished. Heart: S1, S2, sinus rhythm. Abdomen is obese, soft, nontender, nondistended. Extremities: No pitting edema. LABORATORY DATA: White count 8.1, hemoglobin 9, hematocrit 32, platelet count 230. Sodium 143, potassium 4, chloride 103, bicarbonate 34, BUN 40, creatinine 1.56, glucose of 312. ASSESSMENT AND PLAN: This is a 71-year-old female with history of chronic obstructive pulmonary disease (COPD), chronic respiratory failure with hypoxia, chronic iron-deficiency anemia, diabetes, hypertension, morbid obesity, obstructive sleep apnea, and seizure disorder, paralyzed hemidiaphragm, chronic diastolic heart failure, arachnoiditis, history of deep venous thrombosis (DVT), status post inferior vena cava (IVC) filter, irritable bowel, reflux, migraines, depression, and seasonal allergies, who presents with 2-3 day history of shortness of breath and cough productive of thick sticky sputum. IMPRESSION: 1. Chronic respiratory failure with hypoxia and acute chronic obstructive pulmonary disease exacerbation. Still with persistent dyspnea. The patient is nonambulatory and usually is bed bound with wheelchair. Still with productive cough and wheezing. Chest x-ray revealed no significant opacities. The patient is currently on prednisone tapered at 10 mg twice a day. Continue with inhaled therapy. 2. Diastolic heart failure. The patient is net negative throughout the hospital stay. Additional dose of torsemide was given yesterday. Continue with torsemide 20 and spironolactone 25 mg. 3. 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 The patient is currently on consistent-carbohydrate diet, Lispro sliding scale, and basal coverage with Levemir which is increased to 142 units twice a day. Continue to monitor and hold for glucose less than 150-180. 4. Hypothyroidism. Continue with Synthroid. 5. Symptomatic anemia, most likely secondary to gastrointestinal (GI) source. On admission received 2 units of red blood cell transfusion. Outpatient esophagogastroduodenoscopy (EGD). Continue with Prilosec and ferrous sulfate for now. Avoid nonsteroidal antiinflammatory drugs (NSAIDs). 6. History of seizure disorder. Continue with Keppra. 7. Obstructive sleep apnea (MATT). On continuous positive airway pressure (CPAP). Continue with home CPAP. 8. Hypertension. On bisoprolol, torsemide, and spironolactone. 9. History of deep venous thrombosis, status post inferior vena cava filter. 10. Irritable bowel syndrome. No acute complaints. 11. Migraine headaches. On Tylenol. 12. Depression. On fluoxetine. 13. Morbid obesity. Complicating medical therapy. 14. Reflux. On omeprazole. 15. Deep venous thrombosis prophylaxis with compression stockings. [facility]
[2016-07-20] MEDS: FLUoxetine 20 MG CAP PO SCH (12:09)
[2016-07-20 14:00] VITALS: BP 143/67
[2016-07-20] MEDS ORDERED: LEVEMIR (INSULIN DETEMIR) 1 UNITS/0.01ML SC SCH (21:00)
[2016-07-20 22:00] VITALS: BP 142/65
[2016-07-21] MEDS: IPRATROPIUM 0.5MG/ALBUTEROL 2.5MG INH SOL UD 3ML (DUONEB)(J7620) NEB SCH ×4 (01:46→18:54)
[2016-07-21] MEDS: CLINDAMYCIN 150 MG CAP PO SCH ×3 (05:51→21:58)
[2016-07-21] MEDS: CIPROFLOXACIN 250 MG TAB PO SCH ×2 (05:51→17:29)
[2016-07-21 06:00] VITALS: BP 140/65
[2016-07-21 06:11] LABS: BASO % 0.4 % (0.0-1.0); EOS # 0.1 K/mm3 (0.0-0.50); EOS % 0.9 % (0.0-3.0); LARGE UNSTAINED CELL # 0.1 K/mm3 (0.0-0.4); LARGE UNSTAINED CELL % 2.1 % (0.0-4.0); LYMPH # 1.6 K/mm3 (1.5-4.5); LYMPH % 20.9 % (24.0-44.0); MEAN CORPUSCULAR VOLUME 82.1 fl (80.0-96.0); MONO # 0.4 K/mm3 (0.0-0.8); MONO % 6.1 % (0.0-5.0); NEUTROPHILS # 4.9 K/mm3 (1.8-7.7); NEUTROPHILS % 69.8 % (36.0-66.0); PLATELET COUNT, AUTOMATED 240 k/mm3 (150-450); RED CELL DISTRIBUTION WIDTH 20.5 % (11.5-14.5)
[2016-07-21 06:13] LABS: ADD MORPHOLOGY? YES
[2016-07-21 06:49] LABS: ANISOCYTOSIS 3+; POLYCHROMASIA 2+
[2016-07-21 06:51] LABS: HYPOCHROMASIA 2+
[2016-07-21 07:01] LABS: ALBUMIN 2.9 GM/DL (3.2-5.2); BILIRUBIN,TOTAL 0.2 MG/DL (0.2-1.0); CREATININE FOR GFR 1.55 MG/DL (0.55-1.02); MAGNESIUM LEVEL 2.5 MG/DL (1.8-2.4); POTASSIUM SERUM 4.1 MEQ/L (3.5-5.1); TOTAL PROTEIN 5.8 GM/DL (6.4-8.2)
[2016-07-21] MEDS: FORMOTEROL FUMARATE 20 MCG/2 ML INHALATION SOLUTION (PERFOROMIST) INH SCH ×2 (07:50→19:53)
[2016-07-21] MEDS: BUDESONIDE 0.5 MG/2 ML INHALATION SUSPENSION INH SCH ×2 (07:50→19:53)
[2016-07-21] MEDS: HumaLOG INSULIN (NovoLOG) PER UNIT SC SCH ×4 (07:59→21:59)
[2016-07-21] MEDS: SODIUM CHLORIDE 0.9% INJ 10 ML SYR IV SCH (08:00)
[2016-07-21] MEDS: LACTULOSE 20 GM/30 ML SYRUP UD PO SCH ×2 (08:00→21:59)
[2016-07-21] MEDS: METOCLOPRAMIDE 10 MG TAB PO SCH ×3 (08:01→21:57)
[2016-07-21] MEDS: PROMETHAZINE 25 MG TAB PO SCH ×3 (08:01→17:29)
[2016-07-21] MEDS: TORSEMIDE 20 MG TAB PO SCH (08:01)
[2016-07-21] MEDS: BACLOFEN 10 MG TAB PO SCH ×2 (08:01→21:58)
[2016-07-21] MEDS: ASPIRIN 81 MG ENTERIC TAB PO SCH (08:01)
[2016-07-21] MEDS: levETIRAcetam 250MG TABLET (KEPPRA) PO SCH ×4 (08:01→21:58)
[2016-07-21] MEDS: COLCHICINE 0.6 MG TAB PO SCH (08:01)
[2016-07-21] MEDS: SENOKOT S TAB PO SCH ×2 (08:02→21:58)
[2016-07-21] MEDS: SUCRALFATE 1 GM TAB PO SCH ×2 (08:02→21:58)
[2016-07-21] MEDS: OMEPRAZOLE 20 MG CAP PO SCH ×2 (08:02→21:58)
[2016-07-21] MEDS: guaiFENesin ER 600 MG TAB PO SCH ×2 (08:02→21:59)
[2016-07-21] MEDS: PREGABALIN 100 MG CAP (LYRICA) PO SCH ×3 (08:02→21:58)
[2016-07-21] MEDS: BISOPROLOL FUM 2.5 MG PER 1/2TAB PO SCH (08:02)
[2016-07-21] MEDS: predniSONE 10 MG TAB PO SCH ×2 (08:02→21:58)
[2016-07-21] MEDS: FERROUS SULFATE 325MG TAB PO SCH ×2 (08:02→21:58)
[2016-07-21] MEDS: SPIRONOLACTONE 25 MG TAB PO SCH (08:02)
[2016-07-21] MEDS ORDERED: LEVEMIR (INSULIN DETEMIR) 1 UNITS/0.01ML SC SCH (09:00)
[2016-07-21] MEDS ORDERED: LEVEMIR (INSULIN DETEMIR) 1 UNITS/0.01ML SC ONE (10:00)
--- NOTE | 2016-07-21 10:16 | IPN ---
DATE: 07/21/2016: The patient seen and examined at the bedside. The chart has been reviewed. She has no complaints of shortness of breath, chest pain, pressure or tightness, respiratory distress. No other issues per nursing. Glucose remains elevated 368 , 332, 366, and 318. A1c is 9.5. VITAL SIGNS: Temperature 97.8, pulse 67, respiratory rate 20, blood pressure 140/65. 97% on 2 liters nasal cannula. GENERAL: Awake, alert, oriented times three. No jugular venous distention Diminished breath sounds. No use of accessory muscle. Bilateral rhonchi. HEART: S1, S2, sinus rhythm. No murmurs, rubs or gallops. ABDOMEN: Obese, soft, nontender nondistended. Positive bowel sounds. EXTREMITIES: No pitting edema. LABORATORY DATA: White count 7, hemoglobin 8.8, hematocrit 31, platelet count 240. Sodium 145, potassium 4, chloride 106, bicarbonate 34, BUN 38, creatinine 1.55, glucose 267. A1c 9.5. ASSESSMENT/PLAN: This is a 71-year-old female with a history of COPD, chronic respiratory failure with hypoxia, chronic iron deficiency anemia, type 2 diabetes, hypertension, morbid obesity, organic brain syndrome, seizure disorder, paralyzed hemidiaphragm, chronic diastolic heart failure, arachnoiditis, history of deep venous thrombosis with inferior vena cava (IVC) filter, irritable bowel, reflux, migraine suppression, seasonal allergies who presents with a two to three-day history of shortness of breath and cough productive of thick sputum. IMPRESSION: Acute COPD exacerbation on chronic hypoxic respiratory failure on home oxygen still with prednisone 10 mg twice a day, appears stable unchanged still with chronic rhonchi. Continued with inhaled therapy, prednisone. Diastolic heart failure: Continued on Torsemide and spironolactone. Type 2 diabetes with steroid inducted hyperglycemia. Consistent carbohydrate diet, adjust per sliding scale increase Levemir insulin to 145/50 twice a day better control. A1c is 9.9. DISPOSITION: Discharge in the next 24 to 48 hours once glucose is less than 250. MTDD
[2016-07-21] MEDS: FLUoxetine 20 MG CAP PO SCH (12:03)
[2016-07-21 14:00] VITALS: BP 147/68
[2016-07-21] MEDS: LEVEMIR (INSULIN DETEMIR) 1 UNITS/0.01ML SC SCH (21:58)
[2016-07-21 22:00] VITALS: BP 134/61
[2016-07-21] MEDS: ACETAMINOPHEN 650MG ER TAB (TYLENOL ARTHRITIS) PO PRN (22:26)
[2016-07-22] MEDS: IPRATROPIUM 0.5MG/ALBUTEROL 2.5MG INH SOL UD 3ML (DUONEB)(J7620) NEB SCH ×2 (01:32→08:00)
[2016-07-22] MEDS: CLINDAMYCIN 150 MG CAP PO SCH (05:14)
[2016-07-22] MEDS: CIPROFLOXACIN 250 MG TAB PO SCH (05:14)
[2016-07-22] MEDS: SODIUM CHLORIDE 0.9% INJ 10 ML SYR IV PRN (05:14)
[2016-07-22 05:40] LABS: BASO % 0.5 % (0.0-1.0); EOS % 0.6 % (0.0-3.0); LARGE UNSTAINED CELL # 0.1 K/mm3 (0.0-0.4); LARGE UNSTAINED CELL % 1.4 % (0.0-4.0); LYMPH # 1.4 K/mm3 (1.5-4.5); LYMPH % 14.9 % (24.0-44.0); MEAN CORPUSCULAR HEMOGLOBIN 22.9 pg (27.0-33.0); MEAN CORPUSCULAR HGB CONC 27.6 g/dl (32.0-36.5); MEAN CORPUSCULAR VOLUME 82.8 fl (80.0-96.0); MONO # 0.6 K/mm3 (0.0-0.8); MONO % 6.4 % (0.0-5.0); NEUTROPHILS # 6.7 K/mm3 (1.8-7.7); NEUTROPHILS % 76.1 % (36.0-66.0); PLATELET COUNT, AUTOMATED 258 k/mm3 (150-450); RED CELL DISTRIBUTION WIDTH 20.6 % (11.5-14.5); WHITE BLOOD COUNT 8.8 K/mm3 (4.0-10.0)
[2016-07-22 05:43] LABS: ADD MORPHOLOGY? YES
[2016-07-22 05:59] LABS: ANISOCYTOSIS 2+; HYPOCHROMASIA 2+; TEAR DROP CELLS 1+
[2016-07-22 06:00] VITALS: BP 140/66
[2016-07-22 06:02] LABS: POLYCHROMASIA 1+
[2016-07-22] MEDS ORDERED: INSUDET SC (07:42)
[2016-07-22] MEDS ORDERED: GUAI60TA PO (07:42)
[2016-07-22] MEDS ORDERED: PRED10PA2 PO (07:43)
[2016-07-22 07:56] LABS: ALBUMIN/GLOBULIN RATIO 1.03 (1.00-1.93); BILIRUBIN,TOTAL 0.2 MG/DL (0.2-1.0); CALCIUM LEVEL 8.2 MG/DL (8.8-10.2); CREATININE FOR GFR 1.4 MG/DL (0.55-1.02); GLOMERULAR FILTRATION RATE 39.4 (>39); MAGNESIUM LEVEL 2.6 MG/DL (1.8-2.4); POTASSIUM SERUM 4.3 MEQ/L (3.5-5.1); TOTAL PROTEIN 5.9 GM/DL (6.4-8.2)
[2016-07-22] MEDS: HumaLOG INSULIN (NovoLOG) PER UNIT SC SCH ×2 (08:33→12:34)
[2016-07-22] MEDS: SODIUM CHLORIDE 0.9% INJ 10 ML SYR IV SCH (08:34)
[2016-07-22] MEDS: LEVEMIR (INSULIN DETEMIR) 1 UNITS/0.01ML SC SCH (08:34)
[2016-07-22] MEDS: PROMETHAZINE 25 MG TAB PO SCH ×2 (08:35→11:01)
[2016-07-22] MEDS: SPIRONOLACTONE 25 MG TAB PO SCH (08:35)
[2016-07-22] MEDS: predniSONE 10 MG TAB PO SCH (08:35)
[2016-07-22] MEDS: OMEPRAZOLE 20 MG CAP PO SCH (08:35)
[2016-07-22] MEDS: ASPIRIN 81 MG ENTERIC TAB PO SCH (08:35)
[2016-07-22] MEDS: METOCLOPRAMIDE 10 MG TAB PO SCH (08:35)
[2016-07-22] MEDS: guaiFENesin ER 600 MG TAB PO SCH (08:35)
[2016-07-22] MEDS: BACLOFEN 10 MG TAB PO SCH (08:36)
[2016-07-22] MEDS: SUCRALFATE 1 GM TAB PO SCH (08:36)
[2016-07-22] MEDS: COLCHICINE 0.6 MG TAB PO SCH (08:36)
[2016-07-22] MEDS: PREGABALIN 100 MG CAP (LYRICA) PO SCH (08:36)
[2016-07-22] MEDS: SENOKOT S TAB PO SCH (08:36)
[2016-07-22] MEDS: FERROUS SULFATE 325MG TAB PO SCH (08:36)
[2016-07-22] MEDS: levETIRAcetam 250MG TABLET (KEPPRA) PO SCH ×2 (08:36→12:34)
[2016-07-22] MEDS: TORSEMIDE 20 MG TAB PO SCH (08:39)
[2016-07-22 08:40] VITALS: BP 119/56
[2016-07-22] MEDS: LACTULOSE 20 GM/30 ML SYRUP UD PO SCH (08:40)
[2016-07-22] MEDS: BISOPROLOL FUM 2.5 MG PER 1/2TAB PO SCH (08:40)
[2016-07-22] MEDS: BUDESONIDE 0.5 MG/2 ML INHALATION SUSPENSION INH SCH (08:43)
[2016-07-22] MEDS: FORMOTEROL FUMARATE 20 MCG/2 ML INHALATION SOLUTION (PERFOROMIST) INH SCH (08:43)
[2016-07-22] MEDS ORDERED: CIPR-250 PO (10:53)
[2016-07-22] MEDS: ACETAMINOPHEN 650MG ER TAB (TYLENOL ARTHRITIS) PO PRN (11:01)
[2016-07-22] MEDS: FLUoxetine 20 MG CAP PO SCH (11:01)
--- NOTE | 2016-07-22 11:18 | DSES ---
DATE OF ADMISSION: 07/11/2016 DATE OF DISCHARGE: PRIMARY DISCHARGE DIAGNOSES: Acute chronic obstructive pulmonary disease (COPD) exacerbation. Chronic hypoxic respiratory failure on home oxygen. Diastolic heart failure compensated. Type 2 diabetes with steroid induced hypoglycemic, uncontrolled A1c of 9.9. DISCHARGE MEDICATIONS: - Levemir insulin 150 units subcutaneous twice daily - prednisone pack as directed - Mucinex 600 mg twice daily - Tylenol 650 every 8 hours as needed - ipratropium bromide, albuterol, Combivent one solution four times daily - Amitiza 24 mcg daily - ammonium lactate one topically twice daily - aspirin 81 daily - baclofen 20 twice daily - bisoprolol 2.5 mg daily - colchicine 0.6 daily - cranberry 500 three times daily - Colace 100 twice daily - Fioricet codeine one tablet three times daily - fluoxetine 20 daily - Mucinex 600 twice daily for congestion - NovoLog 16 subcutaneous before meals - lactulose 30 mg twice daily - Keppra 500 four times daily - Reglan 10 three times daily - milk of magnesium 30 daily - Prilosec 20 twice daily - Zofran 4 four times daily - Lyrica 100 three times daily - promethazine 25 before meals - scopolamine 1.5 every 72 - Senokot 2 twice daily - spironolactone 25 daily - Carafate 1 gram twice daily - torsemide 20 daily - Vagisil topically twice daily HOSPITAL COURSE: This is a 71-year-old female who presented to the emergency room with worsening shortness of breath for the past 3-4 days with thick sticky sputum production and in the ER, she was found to have chronic paralytic hemidiaphragm, chronic lung changes without acute consolidation or pneumonia. She was given nebulizer treatments and steroids, admitted for chronic obstructive pulmonary disease (COPD) exacerbation. She has had a significant difficulty with weaning off the steroids. She has steroid induced hyperglycemia with glucose levels ranging over 600. Patient's A1c was 9.9. Her Levemir insulin was increased to 150 twice daily with significant improvement. She was continued on Ciprofloxacin, nebulizer treatments and taper down on steroids to prednisone 20 daily. Patient had improvement with glucose to 202 to 245 and discharged in stable condition. LABS ON DISCHARGE: White count 8.8, hemoglobin 8.9, hematocrit 32, platelet count 258. Sodium 145, potassium 4.3, chloride 106, bicarbonate 34, BUN 39, creatinine 1.4, glucose 148. A1c of 9.5. Imaging study: Chest x-ray 07/11/2016: Elevation of the right hemidiaphragm. Atelectasis on the right side. Underlying fibrosis. Time spent on discharge: 30 minutes.
[2016-07-23] MEDS ORDERED: PRED10TA PO ×2 (10:24→10:25)
== END 2016-07-22 13:31 | disposition home health service (06) | DRG 190 ==
LOC: M ED 15:09 → M ED INP 20:38 → M MSPAV 07-12 00:30
PROVIDERS: ADMIT Internal Medicine Nephrology; ATTEND General Practice
DX: J44.1 Chronic obstructive pulmonary disease with (acute) exacerbation (principal); I50.31 Acute diastolic (congestive) heart failure; Z68.41 Body mass index [BMI] 40.0-44.9, adult; J96.11 Chronic respiratory failure with hypoxia; I13.0 Hypertensive heart and chronic kidney disease with heart failure and stage 1 through stage 4 chronic kidney disease, or unspecified chronic kidney disease; E66.01 Morbid (severe) obesity due to excess calories; E11.649 Type 2 diabetes mellitus with hypoglycemia without coma; Z79.899 Other long term (current) drug therapy; Z79.82 Long term (current) use of aspirin; Z79.52 Long term (current) use of systemic steroids; D50.9 Iron deficiency anemia, unspecified; K21.9 Gastro-esophageal reflux disease without esophagitis; F32.9 Major depressive disorder, single episode, unspecified; G47.33 Obstructive sleep apnea (adult) (pediatric); G40.909 Epilepsy, unspecified, not intractable, without status epilepticus; Z86.718 Personal history of other venous thrombosis and embolism; J98.6 Disorders of diaphragm; Z88.2 Allergy status to sulfonamides; Z88.0 Allergy status to penicillin; Z88.8 Allergy status to other drugs, medicaments and biological substances; N18.3 Chronic kidney disease, stage 3 (moderate); M54.5 Low back pain; G60.9 Hereditary and idiopathic neuropathy, unspecified; K58.9 Irritable bowel syndrome, unspecified; E03.9 Hypothyroidism, unspecified

== ENCOUNTER → 2016-07-23 | Outpatient (REF) | payer MEDICARE, MEDICAID ==
[~2016-07-23] MED LIST changes: +CIPR-250 PO; +GUAI60TA PO; +INSUDET SC; +NYST100024; +PRED5TA PO; +TYLE650T35 PO; +[UNRECOGNIZED DRUG - CODE] TOP
[2016-07-23 19:07] LABS: CREATININE FOR GFR 1.52 MG/DL (0.55-1.02); GLOMERULAR FILTRATION RATE 35.8 (>39); POTASSIUM SERUM 4.7 MEQ/L (3.5-5.1)
== END ==
LOC: M LAB REF 10:11
PROVIDERS: ATTEND General Practice
DX: N17.9 Acute kidney failure, unspecified (principal); J44.1 Chronic obstructive pulmonary disease with (acute) exacerbation

== ENCOUNTER 2016-08-05 20:14 | Inpatient (IN) | payer MEDICARE, MEDICAID ==
[~2016-08-05] VITALS: Ht 170.2 cm; Wt 130.5 kg
[2016-08-05] MEDS ORDERED: HumaLOG INSULIN (NovoLOG) PER UNIT SC SCH (21:00)
[2016-08-05 21:06] LABS: INR 0.92
[2016-08-05 21:13] LABS: ALBUMIN 3.1 GM/DL (3.2-5.2); ALBUMIN/GLOBULIN RATIO 0.97 (1.00-1.93); ALKALINE PHOSPHATASE 82 U/L (45-117); ALT/SGPT 69 U/L (12-78); ANION GAP 9 MEQ/L (8-16); AST/SGOT 20 U/L (15-37); BILIRUBIN,DIRECT 0.1 MG/DL (0.0-0.2); BILIRUBIN,TOTAL 0.4 MG/DL (0.2-1.0); BLOOD UREA NITROGEN 31 MG/DL (7-18); CALCIUM LEVEL 8.3 MG/DL (8.8-10.2); CARBON DIOXIDE LEVEL 33 MEQ/L (21-32); CHLORIDE LEVEL 98 MEQ/L (98-107); CREATININE FOR GFR 2.17 MG/DL (0.55-1.02); FREE T4 1.14 NG/DL (0.76-1.46); GLOMERULAR FILTRATION RATE 23.7 (>39); POTASSIUM SERUM 4.2 MEQ/L (3.5-5.1); SODIUM LEVEL 140 MEQ/L (136-145); TOTAL PROTEIN 6.3 GM/DL (6.4-8.2)
[2016-08-05 21:15] LABS: BASO % 0.5 % (0.0-1.0); EOS # 0.1 K/mm3 (0.0-0.50); EOS % 1.2 % (0.0-3.0); LARGE UNSTAINED CELL # 0.1 K/mm3 (0.0-0.4); LARGE UNSTAINED CELL % 1.8 % (0.0-4.0); LYMPH # 1.6 K/mm3 (1.5-4.5); MEAN CORPUSCULAR HEMOGLOBIN 23.1 pg (27.0-33.0); MEAN CORPUSCULAR HGB CONC 28.5 g/dl (32.0-36.5); MEAN CORPUSCULAR VOLUME 80.9 fl (80.0-96.0); MONO # 0.6 K/mm3 (0.0-0.8); MONO % 7.4 % (0.0-5.0); NEUTROPHILS # 5.3 K/mm3 (1.8-7.7); PLATELET COUNT, AUTOMATED 201 k/mm3 (150-450); RED CELL DISTRIBUTION WIDTH 19.5 % (11.5-14.5); WHITE BLOOD COUNT 7.6 K/mm3 (4.0-10.0)
[2016-08-05 21:17] LABS: GLUCOSE, FASTING 402 MG/DL (83-110)
[2016-08-05 21:40] LABS: ABG BASE EXCESS -0.9 (-2.0-2.0); ABG PARTIAL PRESSURE CO2 53.1 mmHg (35.0-45.0); ABG STANDARD HCO3 23.4 MEQ/L (22.0-26.0); ABG TOTAL CO2 27.6 MEQ/L (23.0-31.0); ABG pH (ARTERIAL) 7.307 UNITS (7.350-7.450)
--- NOTE | 2016-08-05 21:40 | REPUSA ---
CT of the head Clinical history: ltered mental status. Comparison: 08/20/2015. Technique: Multiple axial CT images were obtained through the head without administration of contrast . Findings: The ventricles and sulci are symmetric bilaterally. There is no evidence of acute hemorrhag e or infarct. There is no midline shift, mass effect, or extra-axial fluid collection. The osseous st ructures are unremarkable. The visualized paranasal sinuses and mastoid air cells are clear. Impression: Negative study.
--- NOTE | 2016-08-05 21:40 | REPUSA ---
Clinical history: Shortness of breath. Comparison: None. Findings: Frontal and lateral views of the chest were obtained. The right internal jugular central ve nous catheter is within the superior vena cava. The mediastinum and cardiac silhouette are within nor mal limits. The lungs are clear. No pleural effusion or pneumothorax is seen. The osseous structures and soft tissues are unremarkable. Impression: No acute disease. Cardiomegaly.
[2016-08-05 21:41] LABS: ADD MORPHOLOGY? YES
[2016-08-05] MEDS ORDERED: IPRATROPIUM 0.5MG/ALBUTEROL 2.5MG INH SOL UD 3ML (DUONEB)(J7620) NEB ONE (22:00)
[2016-08-05 22:05] LABS: ANISOCYTOSIS 2+; HYPOCHROMASIA 1+; MICROCYTOSIS 1+
[2016-08-05] MEDS ORDERED: INSUDET SC (22:24)
[2016-08-05] MEDS ORDERED: VITA50003 PO (22:24)
--- NOTE | 2016-08-05 22:30 | REPUSA ---
Clinical history: Pain, swelling. Findings: The common femoral, superficial femoral, popliteal, and other deep venous structures compre ss normally and demonstrate normal color Doppler flow. There is a limited visualization of the distal superficial femoral veins bilaterally because of the patient's size however. Normal venous waveform s with augmentation are seen. Impression: No evidence of deep vein thrombosis in either femoral popliteal venous system.
[2016-08-05] MEDS ORDERED: NS 1,000 ML IV SCH (22:57)
[2016-08-05] MEDS ORDERED: BISACODYL 5 MG TAB PO PRN (23:00)
[2016-08-05] MEDS ORDERED: ONDANSETRON 4MG/2ML VIAL (J2405) IV PRN (23:00)
[2016-08-05] MEDS ORDERED: GLUCOSE 4 GM CHEW TABLET PO PRN (23:15)
[2016-08-05] MEDS ORDERED: GLUCAGON FOR INJ 1 MG VIAL (J1610) SC PRN (23:15)
[2016-08-05] MEDS ORDERED: DEXTROSE 50% 50 ML SYRINGE IV PRN (23:15)
[2016-08-05 23:16] LABS: ABG BASE EXCESS 5.2 (-2.0-2.0); ABG HCO3 33.1 MEQ/L (22.0-26.0); ABG PARTIAL PRESSURE O2 51.6 mmHg (75.0-100.0); ABG STANDARD HCO3 28.9 MEQ/L (22.0-26.0); ABG TOTAL CO2 35.1 MEQ/L (23.0-31.0); ABG pH (ARTERIAL) 7.306 UNITS (7.350-7.450)
[2016-08-05 23:18] LABS: ABG PARTIAL PRESSURE CO2 67.8 mmHg (35.0-45.0)
[2016-08-05] MEDS ORDERED: SENOKOT S TAB PO PRN (23:30)
[2016-08-05] MEDS ORDERED: guaiFENesin ER 600 MG TAB PO PRN (23:30)
[2016-08-05] MEDS ORDERED: SCOPOLAMINE 1.5 MG TRANSDERMAL TOP PRN (23:30)
[2016-08-05] MEDS ORDERED: MOM 30ML SUSPENSION UDC PO PRN (23:30)
--- NOTE | 2016-08-05 23:50 | REPUSA ---
CT of the chest without contrast Clinical statement: Shortness of breath. Technique: Multiple axial CT images were obtained with 5 mm cuts through the chest without administra tion of contrast. Comparison: 05/14/2016. Findings: There is no thoracic lymphadenopathy. The visualized portions of the thyroid gland is unrem arkable. There are no pericardial or pleural effusions. There are bilateral upper and lower lobe infi ltrates. Limited imaging of the upper abdomen does not demonstrate any acute abnormalities. There are no suspicious osseous lesions. Impression: No significant interval change. Scattered interstitial changes throughout the lungs bilat erally remain.
[2016-08-06] VITALS (13 sets, daily range): BP systolic 113–161; BP diastolic 56–65
[2016-08-06] MEDS: LACTULOSE 20 GM/30 ML SYRUP UD PO SCH ×3 (00:15→21:24)
[2016-08-06] MEDS: LEVEMIR (INSULIN DETEMIR) 1 UNITS/0.01ML SC SCH ×3 (00:18→18:32)
[2016-08-06] MEDS: SUCRALFATE 1 GM TAB PO SCH ×3 (00:29→21:25)
[2016-08-06] MEDS: PREGABALIN 100 MG CAP (LYRICA) PO SCH ×4 (00:30→21:25)
[2016-08-06] MEDS: levETIRAcetam 250MG TABLET (KEPPRA) PO SCH ×5 (00:30→21:26)
[2016-08-06] MEDS: BACLOFEN 10 MG TAB PO SCH ×3 (00:30→21:25)
[2016-08-06] MEDS: OMEPRAZOLE 20 MG CAP PO SCH ×3 (00:30→21:25)
[2016-08-06] MEDS: METOCLOPRAMIDE 10 MG TAB PO SCH ×4 (00:30→21:00)
[2016-08-06] MEDS: ONDANSETRON 4 MG TAB (S0181) PO SCH ×5 (00:31→21:25)
[2016-08-06 02:55] LABS: ABG BASE EXCESS 9.6 (-2.0-2.0); ABG HCO3 36.5 MEQ/L (22.0-26.0); ABG PARTIAL PRESSURE O2 71.8 mmHg (75.0-100.0); ABG STANDARD HCO3 33.2 MEQ/L (22.0-26.0); ABG TOTAL CO2 38.4 MEQ/L (23.0-31.0); ABG pH (ARTERIAL) 7.381 UNITS (7.350-7.450)
[2016-08-06 02:58] LABS: ABG PARTIAL PRESSURE CO2 62.9 mmHg (35.0-45.0)
--- NOTE | 2016-08-06 03:56 | HPE ---
DATE OF ADMISSION: 08/06/2016 PRIMARY CARE PROVIDER: Dr. Villalobos. CHIEF COMPLAINT: Lethargic as well as lightheadedness and dizziness HISTORY OF PRESENT ILLNESS: Ms. Stern is a 71-year-old female who presented to the emergency room (ER) due to being lethargic, dizziness and sleepiness. Patient was accompanied with her ex-, who expressed that this morning he accompanied patient and went to [place] for evaluation of her knees For pain. Patient's ex- noticed that patient is more drowsy than usual and patient also was hard to arouse; however, patient responding to vocal stimulus. Patient was admitted to [facility] on 07/11/2016, due to chronic obstructive pulmonary disease (COPD) exacerbation. At home, patient is on continuous positive airway pressure (CPAP). Patient is also on oxygen 2 liters at night however, in the morning he checked patient's pulse oximetry and if it is below 88, he started patient on oxygen. Most of her history was given by patient's ex-. Patient also has coughing with production of sputum, possibly related to COPD however it has not been exacerbated. PAST MEDICAL HISTORY: 1. Chronic obstructive pulmonary disease. 2. Chronic respiratory failure and hypoxia. 3. Chronic iron deficiency anemia. 4. Diabetes. 5. Hypertension. 6. Morbidly obese. 7. Obstructive sleep apnea on continuous positive airway pressure. 8. Seizure disorder. 9. 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 10. Chronic diastolic congestive heart failure. 11. History of arachnoiditis. 12. History of deep venous thrombosis (DVT), has inferior vena cava filter in place. 13. Irritable bowel syndrome. 14. Gastroesophageal reflux disease (GERD). 15. Migraine headaches. 16. Depression. 17. Seasonal allergies. HOME MEDICATIONS: - acetaminophen 650 mg by mouth every 8 hours as needed for pain - ipratropium bromide/albuterol one solution inhaled four times a day - Amitiza 24 mcg by mouth nightly - ammonium lactate one dose topically twice a day to the legs and feet - aspirin 81 mg by mouth daily - baclofen 20 mg by mouth twice a day - bisoprolol fumarate 2.5 mg by mouth daily - colchicine 0.6 mg by mouth daily - cranberry 500 mg by mouth three times a day - docusate sodium 100 mg by mouth twice a day - vitamin D 50,000 units by mouth monthly - Fioricet/Codeine 50/300/40/30 mg one capsule by mouth three times a day as needed for headache - fluoxetine 20 mg by mouth daily - Mucinex 600 mg by mouth twice a day as needed for congestion - NovoLog 16 units subcutaneously before food - Levemir 150 mg subcutaneously twice a day - lactulose 30 mL by mouth twice a day mixed with juice - Keppra 500 mg by mouth four times a day - Reglan 10 mg by mouth three times a day - milk of magnesia 30 mL by mouth daily as needed for constipation - omeprazole 20 mg by mouth twice a day - Zofran 4 mg by mouth four times a day - Lyrica 100 mg by mouth three times a day - promethazine 25 mg by mouth before food - scopolamine 1.5 mg by mouth every 72 hours as needed for nausea - Senokot two tablets by mouth twice a day as needed for constipation - spironolactone 25 mg by mouth twice a day - sucralfate 1 gram by mouth twice a day - torsemide 20 mg by mouth daily - Vagisil Maximum Strength one dose topically twice a day as needed for itching PAST SURGICAL HISTORY: 1. Inferior vena cava (IVC) filter placement in 2016. 2. Right hip surgery. 3. Right knee surgery. 4. Hysterectomy. 5. Lung surgery. 6. Back surgery. 7. Left ankle surgery. 8. Tonsillectomy. 9. Central venous port placement, removed. SOCIAL HISTORY: Patient denies smoking, use of tobacco products. Patient denies history of illicit drug use. Patient denies history of alcohol or tobacco use. Patient lives with her ex-. Patient has no pets. Patient has not traveled outside of the [place]. FAMILY HISTORY: Patient has four brothers and sisters, who are healthy for their age. Patient has three children. ALLERGIES: 1. CEPHALOSPORINS cause hives. 2. CHLORPROMAZINE causes hives. 3. LORATADINE causes hives. 4. PENICILLIN causes hives. 5. PENTAZOCINE causes hives. 6. SULFA ANTIBIOTIC causes hives. 7. IODINE, unknown allergy. 8. METHADONE, unknown allergy. 9. FLUTICASONE, thrush. 10. LASIX. 11. SALMETEROL, thrush. REVIEW OF SYSTEMS: GENERAL: Patient denies fevers, chills, night sweats. HEENT: Patient expressed that she has dizziness and lightheadedness. Patient also feels sleepy. However, patient denies acute vision or hearing changes. Patient also denies problem with chewing food. NECK: Patient denies lumps, bumps or decreased range of motion of her neck. HEART: Patient denies palpitations or racing or skipping heartbeat or chest pain. LUNGS: Patient denies dyspnea, shortness of breath. Patient has coughing with sometimes production of sputum, clear or white. ABDOMEN: Patient denies abdominal pain, nausea, vomiting, diarrhea, constipation, melena, hematochezia, or hemoptysis. NEUROLOGIC: Patient denies a history of CVA or seizure type activities. EXTREMITIES: Patient has lower extremity pain secondary to arachnoiditis and knee pain. PHYSICAL EXAMINATION: VITAL SIGNS: Temperature 97.5, pulse 92, respiratory rate 16, blood pressure 136/56, pulse oximetry 87 on 2-liter nasal cannula. GENERAL APPEARANCE: Patient is sleepy; however, patient responds to vocal stimulus. HEENT: Normocephalic, atraumatic. Pupils are equal. Oral mucosa is moist. NECK: Jugular venous distention (JVD) cannot be appreciated due to extended neck. No lymphadenopathy. No thyromegaly. HEART: Regular rate and rhythm. Normal S1, S2. ABDOMEN: Extended abdomen, obesity, positive bowel sounds in all quadrants. No tenderness to palpation. LUNGS: Patient has scattered rhonchi at the base of the lung. Good air movement. EXTREMITIES: Patient has lower extremity edema, +2 pulses in both lower extremities. Patient has minimal movement of her lower extremities. NEUROLOGIC: Cranial nerves II-XII intact. Patient was oriented to place and person, but not to time. LABORATORY DATA: Sodium 140, potassium 4.2, chloride 98, carbon dioxide 33, anion gap 9, BUN 31, creatinine 2.17, glomerular filtration rate 23.7, fasting glucose 402, calcium 8.3, total bilirubin 0.4, direct bilirubin 0.1, AST 20, ALT 69, alkaline phosphatase 82, total creatinine kinase 33, CK-MB less than 1, CK- MB relative index 3.03, troponin I less than 0.02, BNP 29, total protein 6.3, albumin 3.1, TSH 1.6, free T4 1.04. White blood cells 7.6, red blood cells 4.39, hemoglobin 10.1, hematocrit 35.5, MCV 8.9, MCH 23.1, MCHC 28.5, RDW 19.5, platelet count 201. Neutrophil percentage 70, lymphocyte percentage 19, monocyte percentage 7.4, eosinophil percentage 1.2, basophil percentage 0.2, leukocyte percentage 1.8. ABG bicarbonate 23.4, ABG pH 7.307, ABG pCO2 53.1, ABG pCO2 45, ABG HCO3 26, ABG total CO2 27.6, ABG oxygen saturation 76.3, ABG base excess -0.9. Urine: Urine color yellow, urine appearance hazy, urine pH 5, urine specific gravity 1.019, urine protein negative, urine glucose 3+, urine ketones negative, urine blood negative, urine nitrites negative, urine bilirubin negative, urine urobilinogen 0.2, urine leukocyte esterase 3+, urine white blood cells 149, urine red blood cells 1, urine hyaline casts 0, urine bacteria 3+, urine squamous epithelial cells 3. Urine culture is pending. IMAGING: Head CT was negative. Chest x-ray did not show any acute disease; however, it shows cardiomegaly. Doppler of the lower extremities bilaterally did not show any evidence of a DVT in either femoropopliteal venous system. CT of the chest shows no significant interval changes, interstitial changes throughout the lung bilaterally remain. ASSESSMENT AND PLAN: 1. Drowsiness. This is possibly secondary to acute on chronic respiratory failure with hypoxia. Patient has history of chronic obstructive pulmonary disease (COPD) and chronic hypercapnia. Arterial blood gas (ABG) indicated respiratory acidosis. We have ordered repeated ABG, which indicated the increase of pCO2 and the mild decrease in the pH. We start patient on CPAP with 2 L oxygen and will repeat an ABG again in 3 hours. Also, patient is on breathing treatment, as well as Solu-Medrol. Patient does not have signs and symptoms of respiratory infection therefore, no antibiotic is indicated at this time. 2. COPD exacerbation. We will continue patient on breathing treatment, as well as intravenous (IV) steroids. 3. Acute on chronic respiratory failure. Patient has chronic hypercapnic. I have start patient on CPAP with 2 L oxygen and will repeat an ABG again in 3 hours. Also, patient is on breathing treatment, as well as Solu-Medrol. Patient does not have signs or symptoms of respiratory infection therefore, no antibiotic is indicated at this time. 4. Morbid obesity with obstructive sleep apnea. patient is on CPAP with 2 L oxygen. 5. Diastolic congestive heart failure. At home, patient is on spironolactone and torsemide. I have stopped these two medications due to abnormal kidney function. Also I started fluid restriction and we will continue monitoring patient for any abnormal symptoms. 6. Anemia: Possibly secondary to iron deficiency. Patient had iron studies done previously, which indicated iron deficiency. Patient is not on iron pill. I have started patient on ferrous gluconate since patient has allergy to sulfate. Patient had colonoscopy twice, 2 years ago, which was not a good study due to poor preparation. However, no gross mass was seen and hemorrhoids were present. 7. Diabetes. We will continue patient on home dosage of Levemir (150 units subcutaneously twice a day), as well as insulin Humulin lispro 60 units subcutaneously before food. Also, I have started the patient on sliding scale with the consistent carbohydrate diet. 8. Hyperglycemia. At the time of presentation, patient had elevated glucose. This is possibly secondary to not taking the insulin and to not being compliant with diabetic diet. We will recheck the glucose level. Anion gap is in normal range. 9. Acute on chronic kidney disease. Patient has been diagnosed with stage III; however, patient's creatinine is above her baseline. This is possibly secondary to hypervolemia. I have stopped the nephrotoxic medications. We will continue monitoring renal function as well as input and output. 10. Hypothyroidism. We will continue patient on Synthroid. 11. Gastroesophageal reflux disease (GERD). We will continue patient on omeprazole, sucralfate. 12. Chronic back pain and neuropathy. We will continue patient on baclofen and Lyrica. 13. Irritable bowel syndrome. Patient is on Amitiza. 14. Depression. We will continue patient on fluoxetine. 15. Seizure disorder. We will continue patient on Keppra. 16. Deep venous thrombosis (DVT) prophylaxis. I have started patient on heparin. 17. History of DVT. Patient has the inferior vena cava (IVC) filter. My preceptor for this patient encounter was Dr. Zhou Hines. The preceptor was physically present in the building during the encounter and was fully available as needed. All aspects of the patient interview, examination, medical decision making process, and medical care plan development were reviewed and approved by the preceptor. The preceptor is aware and concurs with the plan as stated in the body of this note and will attest to such by his/her co-signature. JOSE R
[2016-08-06 05:00] LABS: BASO % 0.7 % (0.0-1.0); EOS % 0.5 % (0.0-3.0); LARGE UNSTAINED CELL # 0.1 K/mm3 (0.0-0.4); LARGE UNSTAINED CELL % 0.7 % (0.0-4.0); LYMPH # 0.6 K/mm3 (1.5-4.5); LYMPH % 7.2 % (24.0-44.0); MEAN CORPUSCULAR HEMOGLOBIN 22.7 pg (27.0-33.0); MEAN CORPUSCULAR HGB CONC 28.3 g/dl (32.0-36.5); MEAN CORPUSCULAR VOLUME 80.2 fl (80.0-96.0); MONO # 0.2 K/mm3 (0.0-0.8); MONO % 2.3 % (0.0-5.0); NEUTROPHILS # 6.4 K/mm3 (1.8-7.7); NEUTROPHILS % 88.5 % (36.0-66.0); PLATELET COUNT, AUTOMATED 198 k/mm3 (150-450); RED CELL DISTRIBUTION WIDTH 19.5 % (11.5-14.5); WHITE BLOOD COUNT 7.2 K/mm3 (4.0-10.0)
[2016-08-06 05:01] LABS: ALBUMIN 3.2 GM/DL (3.2-5.2); ALBUMIN/GLOBULIN RATIO 0.94 (1.00-1.93); ALKALINE PHOSPHATASE 83 U/L (45-117); ALT/SGPT 68 U/L (12-78); ANION GAP 7 MEQ/L (8-16); AST/SGOT 23 U/L (15-37); BILIRUBIN,TOTAL 0.4 MG/DL (0.2-1.0); BLOOD UREA NITROGEN 30 MG/DL (7-18); CARBON DIOXIDE LEVEL 34 MEQ/L (21-32); CHLORIDE LEVEL 99 MEQ/L (98-107); CREATININE FOR GFR 1.76 MG/DL (0.55-1.02); GLOMERULAR FILTRATION RATE 30.2 (>39); GLUCOSE, FASTING 389 MG/DL (83-110); MAGNESIUM LEVEL 2.5 MG/DL (1.8-2.4); POTASSIUM SERUM 4.7 MEQ/L (3.5-5.1); SODIUM LEVEL 140 MEQ/L (136-145); TOTAL PROTEIN 6.6 GM/DL (6.4-8.2)
[2016-08-06 05:02] LABS: ADD MORPHOLOGY? YES
[2016-08-06] MEDS: HEPARIN SOD (PORCINE) 5000 UNITS/ML VIAL SC SCH ×3 (05:06→21:26)
[2016-08-06 06:21] LABS: HYPOCHROMASIA 3+
[2016-08-06 06:22] LABS: ANISOCYTOSIS 1+; MICROCYTOSIS 1+; OVALOCYTES 1+; TEAR DROP CELLS 1+
[2016-08-06] MEDS ORDERED: HumaLOG INSULIN (NovoLOG) PER UNIT SC SCH ×2 (07:30→21:00)
[2016-08-06 07:59] LABS: MYOGLOBIN 57 NG/ML (13-71)
[2016-08-06] MEDS ORDERED: IPRATROPIUM 0.5MG/ALBUTEROL 2.5MG INH SOL UD 3ML (DUONEB)(J7620) INH SCH (08:00)
[2016-08-06] MEDS: PROMETHAZINE 25 MG TAB PO SCH ×3 (08:02→16:46)
[2016-08-06] MEDS: HumaLOG INSULIN (NovoLOG) PER UNIT SC SCH ×3 (08:03→17:30)
[2016-08-06] MEDS: ASPIRIN 81 MG ENTERIC TAB PO SCH (08:04)
[2016-08-06] MEDS: FERROUS GLUCONATE 324 MG TAB PO SCH (08:04)
[2016-08-06] MEDS: DOCUSATE SODIUM 100 MG CAP PO SCH ×2 (08:04→21:25)
[2016-08-06] MEDS: COLCHICINE 0.6 MG TAB PO SCH (08:04)
[2016-08-06] MEDS ORDERED: BISOPROLOL FUM 2.5 MG PER 1/2TAB PO SCH (09:00)
[2016-08-06] MEDS ORDERED: methylPREDNISolone INJ 125 MG/2 ML VIAL (J2930) IV SCH ×2 (10:00)
[2016-08-06] MEDS ORDERED: IPRATROPIUM 0.5MG/ALBUTEROL 2.5MG INH SOL UD 3ML (DUONEB)(J7620) NEB PRN (10:30)
--- NOTE | 2016-08-06 11:06 | ECGEPIP ---
Stationary ECG Study [facility] - ED Test Date: 2016-08-05 Pat Name: SHIVANI PAYNE Department: Room: [place] [address] Gender: F Spiral Runner: bandar : 1945 Requested By: TL RAMIREZ Order Number: [id number] Reading MD: Akiko Meadows Measurements Intervals [place] Rate: 89 P: -90 NM: 182 QRS: 6 QRSD: 91 T: 41 QT: 372 QTc: 453 Interpretive Statements SINUS RHYTHM NSTTW ABNORMALITY Electronically Signed On 08-06-2016 11:05:52 EDT by Akiko Meadows
[2016-08-06] MEDS: IPRATROPIUM 0.5MG/ALBUTEROL 2.5MG INH SOL UD 3ML (DUONEB)(J7620) NEB SCH ×3 (11:36→19:38)
[2016-08-06] MEDS: FLUoxetine 20 MG CAP PO SCH (12:25)
--- NOTE | 2016-08-06 18:15 | IPNPDOC ---
Date Seen The patient was seen on 08/06/16. Progress Note SUBJECTIVE: Ms. Stern is a 71-year-old female examined at bedside this morning. She reports anterior midline chest pain. Reports that she has had this pain before as an outpatient and that it has been treated in the past successfully. Obtaining EKG. Patient admits to a fever upon admission, but denies any febrile episodes currently. Denies night sweats, chills, acute numbness and/or tingling, abdominal pain. Admits to chronic bilateral knee pain , right greater than left. States that she does not feel particularly short of breath. Admits to use of oxygen at home, but not all the time. Mostly wears it at night. Does admit to excessive thirst and requests ice chips in cold water. OBJECTIVE PHYSICAL EXAMINATION: VITAL SIGNS: Please see below. GENERAL: Obese female sitting comfortably in hospital bed, well- developed, well-nourished, nasal cannula in place, noted tachypnea HEENT: Atraumatic, normocephalic, PERRL, EOMI, oral mucosa appears somewhat dry , nasal septum appears midline, nasal cannula in place CARDIOVASCULAR: Regular rate and rhythm, normal S1 and S2, no murmur, rub, click appreciated; first-degree atrioventricular block noted on electrocardiogram RESPIRATORY: Clear to auscultation bilaterally, adequate inspiratory and expiratory airway excursion, no wheeze, rhonchi, crackles ABDOMINAL: Round, soft, nontender, bowel sounds appreciated EXTREMITIES: +1 pitting edema noted on the lower extremities bilaterally; peripheral pulses appreciated bilaterally in the upper extremities, equal, symmetrical, +2/4 NEUROLOGICAL: Cranial nerves II through XII grossly intact PSYCHOLOGICAL: Mood and affect appear appropriate LABORATORY DATA: Please see below. MICROBIOLOGY: Please see below. IMAGING: Head CT without contrast IMPRESSION: Negative study. Chest x-ray IMPRESSION: No acute disease. Cardiomegaly. Bilateral lower extremity duplex ultrasound IMPRESSION: No evidence of deep vein thrombosis in either femoral popliteal venous system. Chest CT without contrast IMPRESSION: No significant interval change. Scattered interstitial changes throughout the lungs bilaterally remain. DVT prophylaxis ordered?: Heparin 5000 units subcutaneous every 8 hours ASSESSMENT AND PLAN: Ms. Stern is a 71-year-old female who presented with acute on chronic hypoxic respiratory failure. PROBLEMS: 1. Acute on chronic hypoxic respiratory failure: Likely multifactorial with possible etiology being COPD exacerbation and possibly mild overdiuresis from needing to control patient's CHF. ABG this morning showed a pH 7.31, PCO2 62.9, PO2 71.8, and HCO3 38.4. Patient is on 2 L of oxygen by nasal cannula. Chest x- ray was normal. CT of the chest showed scattered interstitial changes. Patient initially received Solu-Medrol 60 mg in the emergency department. Continues to receive duo nebs. Also on prednisone 20 mg. Will monitor closely for signs of DKA as steroid has effect of causing hyperglycemia and leukocytosis. Patient has underlying diabetes mellitus. Could consider follow-up ABG if patient does not improve or deteriorates. Has remained afebrile and WBC 7.2. 2. Abnormal urinalysis: Urinalysis showed hazy appearance, 3+ glucose, 3+ leukocyte esterase, WBC 149, 3+ bacteria. Patient is afebrile and serum WBC 7.2. Patient has no urinary complaints at this time. Urine culture has been sent. Likely asymptomatic bacteriuria. No antibiotics recommended at this time. 3. Diabetes mellitus: Blood sugar on evaluation was 389. Continues to receive Levemir 150 units twice a day, sliding scale insulin for coverage, and hypoglycemic protocol. 4. Diastolic congestive heart failure, left ventricular ejection fraction 60%: We'll hold patient's torsemide and spironolactone at this time secondary to dehydration likely related to hyperglycemia. Could consider restarting after patient's respiratory failure and hyperglycemia has improved. 5. Acute kidney failure superimposed on chronic kidney disease: Patient's BUN and creatinine are 30 and 1.76, respectively. There is a mild shift from baseline. Baseline creatinine appears to be 1.5-1.6. There is also some underlying anemia with hemoglobin and hematocrit 10.2 and 35.8, respectively. Patient takes ferrous gluconate 324 mg daily. Held diuretics at this time secondary to acute injury. 6. Hypertension: Patient's blood pressure at time of evaluation was 119/58. Currently holding patient's antihypertensives. 7. Anemia: Patient's hemoglobin and hematocrit 10.2 and 35.8, respectively. Patient remains on ferrous gluconate 324 mg daily. 8. Irritable bowel syndrome: Continue patient on Colace, magnesium hydroxide, Senokot, Bisacodyl. 9. Gastroesophageal reflux disease: Continue patient on Prilosec and sucralfate. 10. Depression/anxiety: Continue patient on fluoxetine. 11. Seizure disorder: Continue patient on Keppra. 12. Gout: Continue patient on colchicine. 13. Seasonal allergies: Continue patient on Mucinex. 14. Nausea and vomiting: Continue patient on scopolamine, Zofran, and Reglan. 15. Obstructive sleep apnea: Patient may use home CPAP machine. Monitor with continuous pulse oximetry. Patient's oxygenation at time of evaluation was 91% on 2 L by nasal cannula. 16. Chronic low back pain: Continue patient on Lyrica and baclofen. DISPOSITION: We'll continue patient on duo nebs and prednisone for acute hypoxic respiratory failure. Patient remains on oxygen via nasal cannula. Monitor patient's blood glucose closely as patient is on prednisone and this can possibly push patient into DKA. Hold patient's diuretics at this time secondary to mild increase in creatinine and hyperglycemia. We'll continue to monitor. VS, [facility]&O[facility]&O Vital Signs Date Time Temp Pulse Resp B/P (MAP) Pulse Ox O2 Delivery O2 Flow Rate FiO2 08/06/16 12:00 98.4 90 19 132/60 (84) 95 Nasal Cannula 2.0 I&O- Last 24 Hours up to 6 AM 08/06/16 05:59 Intake Total 270 ml Output Total 0 ml Balance 270 ml Laboratory Data 24H LABS Laboratory Tests 2 08/05/16 20:39: White Blood Count 7.6, Red Blood Count 4.39, Hemoglobin 10.1L, Hematocrit 35.5L , Mean Corpuscular Volume 80.9, Mean Corpuscular Hemoglobin 23.1L, Mean Corpuscular Hemoglobin Concent 28.5L, Red Cell Distribution Width 19.5H, Platelet Count 201, Neutrophils (%) (Auto) 70.0H, Lymphocytes (%) (Auto) 19.0L, Monocytes (%) (Auto) 7.4H, Eosinophils (%) (Auto) 1.2, Basophils (%) (Auto) 0.5 , Neutrophils # (Auto) 5.3, Lymphocytes # (Auto) 1.6, Monocytes # (Auto) 0.6, Eosinophils # (Auto) 0.1, Basophils # (Auto) 0.0, Large Unclassified Cells % 1.8 , Large Unclassified Cells # 0.1, Platelet Estimate NORMAL, Hypochromasia 1+, Anisocytosis 2+, Microcytosis 1+, Prothrombin Time 12.5, Prothromb Time International Ratio 0.92, Activated Partial Thromboplast Time 26.9, Anion Gap 9 , Glomerular Filtration Rate 23.7L, Calcium Level 8.3L, Aspartate Amino Transf ( AST/SGOT) 20, Alanine Aminotransferase (ALT/SGPT) 69, Alkaline Phosphatase 82, Total Bilirubin 0.4, Direct Bilirubin 0.1, Total Creatine Kinase 33, Creatine Kinase MB < 1.0, Creatine Kinase MB Relative Index 3.03, Troponin I < 0.02, B- Type Natriuretic Peptide 29.0, Total Protein 6.3L, Albumin 3.1L, Albumin/ Globulin Ratio 0.97L, Thyroid Stimulating Hormone (TSH) 1.600, Free Thyroxine 1.14 08/05/16 21:26: Blood Gas Bicarbonate Standard 23.4, Arterial Blood pH 7.307L, Arterial Blood Partial Pressure CO2 53.1H, Arterial Blood Partial Pressure O2 45.0*L, Arterial Blood Total CO2 27.6, Arterial Blood HCO3 26.0, Arterial Blood Base Excess -0.9 , Arterial Blood Oxygen Saturation 76.3L 08/05/16 21:47: Urine Appearance HAZY, Urine Color YELLOW, Urine pH 5.0, Urine Specific [place] 1.013, Urine Protein NEGATIVE, Urine Glucose (UA) 3+H, Urine Ketones NEGATIVE, Urine Urobilinogen 0.2, Urine Bilirubin NEGATIVE, Urine Leukocyte Esterase 3+H, Urine Blood NEGATIVE, Urine Nitrite NEGATIVE, Urine WBC (Auto) 149H, Urine RBC ( Auto) 1, Urine Hyaline Casts (Auto) 0, Urine Bacteria (Auto) 3+H, Urine Squamous Epithelial Cells 3, Urine Sperm (Auto) 08/05/16 23:09: Blood Gas Bicarbonate Standard 28.9H, Arterial Blood pH 7.306L, Arterial Blood Partial Pressure CO2 67.8*H, Arterial Blood Partial Pressure O2 51.6L, Arterial Blood Total CO2 35.1H, Arterial Blood HCO3 33.1H, Arterial Blood Base Excess 5.2H, Arterial Blood Oxygen Saturation 83.2L 08/05/16 23:49: Bedside Glucose (Misc Panel) 413H 08/06/16 01:19: Bedside Glucose (Misc Panel) 418H 08/06/16 02:48: Blood Gas Bicarbonate Standard 33.2H, Arterial Blood pH 7.381, Arterial Blood Partial Pressure CO2 62.9*H, Arterial Blood Partial Pressure O2 71.8L, Arterial Blood Total CO2 38.4H, Arterial Blood HCO3 36.5H, Arterial Blood Base Excess 9.6H, Arterial Blood Oxygen Saturation 93.7L, Arterial Blood Gas Puncture Site RT RADIAL 08/06/16 04:33: White Blood Count 7.2, Red Blood Count 4.47, Hemoglobin 10.2L, Hematocrit 35.8L , Mean Corpuscular Volume 80.2, Mean Corpuscular Hemoglobin 22.7L, Mean Corpuscular Hemoglobin Concent 28.3L, Red Cell Distribution Width 19.5H, Platelet Count 198, Neutrophils (%) (Auto) 88.5H, Lymphocytes (%) (Auto) 7.2L, Monocytes (%) (Auto) 2.3, Eosinophils (%) (Auto) 0.5, Basophils (%) (Auto) 0.7, Neutrophils # (Auto) 6.4, Lymphocytes # (Auto) 0.6L, Monocytes # (Auto) 0.2, Eosinophils # (Auto) 0.0, Basophils # (Auto) 0.0, Large Unclassified Cells % 0.7 , Large Unclassified Cells # 0.1, Platelet Estimate NORMAL, Hypochromasia 3+, Basophilic Stippling 1+, Anisocytosis 1+, Microcytosis 1+, Tear Drop Cells 1+, Ovalocytes 1+, Anion Gap 7L, Glomerular Filtration Rate 30.2L, Blood Urea Nitrogen 30H, Creatinine 1.76H, Sodium Level 140, Potassium Level 4.7, Chloride Level 99, Carbon Dioxide Level 34H, Calcium Level 9.0, Aspartate Amino Transf ( AST/SGOT) 23, Alanine Aminotransferase (ALT/SGPT) 68, Total Creatine Kinase 34, Alkaline Phosphatase 83, Total Bilirubin 0.4, Total Protein 6.6, Albumin 3.2, Magnesium Level 2.5H, Creatine Kinase MB 1.0, Creatine Kinase MB Relative Index 2.94, Myoglobin 57, Troponin I < 0.02, Albumin/Globulin Ratio 0.94L 08/06/16 11:34: Bedside Glucose (Misc Panel) 556*H 08/06/16 11:36: Bedside Glucose (Misc Panel) 552*H 08/06/16 14:16: Total Creatine Kinase 34, Creatine Kinase MB 1.0, Creatine Kinase MB Relative Index 2.94, Troponin I < 0.02 CBC/BMP Laboratory Tests 08/05/16 20:39 Red Blood Count 4.39, Mean Corpuscular Volume 80.9, Mean Corpuscular Hemoglobin 23.1 L, Mean Corpuscular Hemoglobin Concent 28.5 L, Red Cell Distribution Width 19.5 H, Neutrophils (%) (Auto) 70.0 H, Lymphocytes (%) (Auto) 19.0 L, Monocytes (%) (Auto) 7.4 H, Eosinophils (%) (Auto) 1.2, Basophils (%) (Auto) 0.5, Neutrophils # (Auto) 5.3, Lymphocytes # (Auto) 1.6, Monocytes # (Auto) 0.6, Eosinophils # (Auto) 0.1, Basophils # (Auto) 0.0 08/06/16 04:33 Red Blood Count 4.47, Mean Corpuscular Volume 80.2, Mean Corpuscular Hemoglobin 22.7 L, Mean Corpuscular Hemoglobin Concent 28.3 L, Red Cell Distribution Width 19.5 H, Neutrophils (%) (Auto) 88.5 H, Lymphocytes (%) (Auto) 7.2 L, Monocytes ( %) (Auto) 2.3, Eosinophils (%) (Auto) 0.5, Basophils (%) (Auto) 0.7, Neutrophils # (Auto) 6.4, Lymphocytes # (Auto) 0.6 L, Monocytes # (Auto) 0.2, Eosinophils # (Auto) 0.0, Basophils # (Auto) 0.0, Calcium Level 9.0, Aspartate Amino Transf (AST/SGOT) 23, Alanine Aminotransferase (ALT/SGPT) 68, Total Creatine Kinase 34, Alkaline Phosphatase 83, Total Bilirubin 0.4, Total Protein 6.6, Albumin 3.2 Microbiology Microbiology 08/06/16 Gram Stain - Final, Resulted 08/06/16 Sputum Culture, Resulted Pending 08/05/16 Urine Culture, Received Pending KALEY DIAZ-Gerardo August 06, 2016 16:15
[2016-08-06] MEDS ORDERED: SODIUM CHLORIDE 0.9% 1000 ML IV ONE (18:45)
[2016-08-06] MEDS ORDERED: HumaLOG INSULIN (NovoLOG) PER UNIT SC ONE (23:30)
--- NOTE | 2016-08-06 23:57 | ECGEPIP ---
Stationary ECG Study [facility] Test Date: 2016-08-06 Pat Name: SHIVANI PAYNE Department: Room: [place] [address] Gender: F Surveillance Sensor Operator: TANIA : [id number] Requested By: ANGELA GIBSON Order Number: [id number] Reading MD: Todd Bansal Measurements Intervals [place] Rate: 95 P: 59 [place]: 225 QRS: 10 QRSD: 93 T: 24 QT: 355 QTc: 447 Interpretive Statements SINUS RHYTHM WITH FIRST DEGREE AV BLOCK LOW QRS VOLTAGE IN PRECORDIAL LEADS POSSIBLE ANTERIOR MYOCARDIAL INFARCTION, OF INDETERMINATE AGE VS POOR R WAVE PROGRESSION MINIMAL ST ELEVATION NOTED, PROBABLY RELATED TO EARLY REPOLARIZATION COMPARED TO THE LAST 4 TRACINGS, NO SIGNIFICANT CHANGES Electronically Signed On 08-06-2016 23:56:59 EDT by Todd Bansal
[2016-08-07] VITALS (7 sets, daily range): BP systolic 107–143; BP diastolic 53–95; O2SAT 93
[2016-08-07] MEDS: IPRATROPIUM 0.5MG/ALBUTEROL 2.5MG INH SOL UD 3ML (DUONEB)(J7620) NEB SCH ×7 (00:58→23:16)
[2016-08-07 01:05] LABS: CALCIUM LEVEL 9.1 MG/DL (8.8-10.2); CREATININE FOR GFR 1.9 MG/DL (0.55-1.02); GLOMERULAR FILTRATION RATE 27.7 (>39); POTASSIUM SERUM 4.7 MEQ/L (3.5-5.1)
[2016-08-07] MEDS ORDERED: HumaLOG INSULIN (NovoLOG) PER UNIT SC ONE ×2 (01:45→03:30)
[2016-08-07 05:15] LABS: ALBUMIN 2.7 GM/DL (3.2-5.2); ALBUMIN/GLOBULIN RATIO 0.82 (1.00-1.93); BILIRUBIN,TOTAL 0.2 MG/DL (0.2-1.0); CALCIUM LEVEL 8.8 MG/DL (8.8-10.2); CREATININE FOR GFR 1.71 MG/DL (0.55-1.02); GLOMERULAR FILTRATION RATE 31.2 (>39); MAGNESIUM LEVEL 2.8 MG/DL (1.8-2.4); POTASSIUM SERUM 4.6 MEQ/L (3.5-5.1)
[2016-08-07] MEDS: HEPARIN SOD (PORCINE) 5000 UNITS/ML VIAL SC SCH ×3 (05:16→20:37)
[2016-08-07 05:17] LABS: BASO % 0.4 % (0.0-1.0); EOS # 0.1 K/mm3 (0.0-0.50); EOS % 0.8 % (0.0-3.0); LARGE UNSTAINED CELL # 0.1 K/mm3 (0.0-0.4); LARGE UNSTAINED CELL % 1.8 % (0.0-4.0); LYMPH # 0.9 K/mm3 (1.5-4.5); LYMPH % 9.6 % (24.0-44.0); MEAN CORPUSCULAR HEMOGLOBIN 22.3 pg (27.0-33.0); MEAN CORPUSCULAR HGB CONC 27.9 g/dl (32.0-36.5); MONO # 0.7 K/mm3 (0.0-0.8); MONO % 8.2 % (0.0-5.0); NEUTROPHILS # 6.4 K/mm3 (1.8-7.7); NEUTROPHILS % 79.2 % (36.0-66.0); PLATELET COUNT, AUTOMATED 132 k/mm3 (150-450); RED CELL DISTRIBUTION WIDTH 19.5 % (11.5-14.5)
[2016-08-07 05:20] LABS: ADD MORPHOLOGY? YES
[2016-08-07 06:01] LABS: HYPOCHROMASIA 2+
[2016-08-07 06:02] LABS: ANISOCYTOSIS 2+
[2016-08-07 06:03] LABS: POLYCHROMASIA 1+
[2016-08-07] MEDS: PROMETHAZINE 25 MG TAB PO SCH ×3 (07:26→17:08)
[2016-08-07] MEDS: HumaLOG INSULIN (NovoLOG) PER UNIT SC SCH ×3 (07:26→17:07)
[2016-08-07] MEDS ORDERED: INSULIN IV RATE CHANGE DOCUMENTATION ML/HR XX SCH ×2 (07:45)
[2016-08-07] MEDS ORDERED: INSULIN HUMAN REGULAR 100 UNITS in NS 99 ML IV SCH ×2 (07:45→08:00)
[2016-08-07 08:30] LABS: PERCENT SATURATION 6.5 % (13.2-37.4)
[2016-08-07] MEDS: ASPIRIN 81 MG ENTERIC TAB PO SCH (08:46)
[2016-08-07] MEDS: LACTULOSE 20 GM/30 ML SYRUP UD PO SCH ×2 (08:46→20:38)
[2016-08-07] MEDS: FERROUS GLUCONATE 324 MG TAB PO SCH (08:46)
[2016-08-07] MEDS: DOCUSATE SODIUM 100 MG CAP PO SCH ×2 (08:46→20:36)
[2016-08-07] MEDS: SUCRALFATE 1 GM TAB PO SCH ×2 (08:47→20:36)
[2016-08-07] MEDS: COLCHICINE 0.6 MG TAB PO SCH (08:47)
[2016-08-07] MEDS: levETIRAcetam 250MG TABLET (KEPPRA) PO SCH ×4 (08:47→20:36)
[2016-08-07] MEDS: OMEPRAZOLE 20 MG CAP PO SCH ×2 (08:47→20:35)
[2016-08-07] MEDS: BACLOFEN 10 MG TAB PO SCH ×2 (08:47→20:36)
[2016-08-07] MEDS: PREGABALIN 100 MG CAP (LYRICA) PO SCH ×3 (08:48→20:36)
[2016-08-07] MEDS: METOCLOPRAMIDE 10 MG TAB PO SCH ×3 (08:48→20:37)
[2016-08-07] MEDS: ONDANSETRON 4 MG TAB (S0181) PO SCH ×4 (08:48→20:36)
[2016-08-07] MEDS: LEVEMIR (INSULIN DETEMIR) 1 UNITS/0.01ML SC SCH ×2 (08:48→20:38)
[2016-08-07] MEDS ORDERED: predniSONE 20 MG TAB PO SCH ×2 (09:00)
--- NOTE | 2016-08-07 09:41 | IPNPDOC ---
Date Seen The patient was seen on 08/07/16. Progress Note SUBJECTIVE: Ms. Stern 71-year-old female evaluated bedside this morning. She is laying in bed comfortably upon evaluation. Patient reports dysuria and urinary frequency. Urine culture was positive for Pseudomonas. She reports continued bilateral knee pain as well as pain down her back in her spine. Reports that her breathing has improved. Denies hemoptysis, melena, hematochezia , hematuria. Admits to dizziness that she describes as blurred vision. Admits to weakness. Denies nervousness and anxiousness, although she states that she feels tremulous internally. Was reported last evening the patient had outside foods (such as chips) in her room last evening. Patient reports to me that she was not consuming any of the food products although her POC glucose checks were in the 600s. Overnight medical providers provided acute management for hyperglycemia and morning blood glucose was 379. OBJECTIVE PHYSICAL EXAMINATION: VITAL SIGNS: Please see below. GENERAL: Obese female laying comfortably in the supine position in hospital bed, well-nourished, well-developed, in no apparent distress HEENT: Atraumatic, normocephalic, PERRL, EOMI, oral mucosa appears pink and moist, nasal septum is midline, nasal cannula in place CARDIOVASCULAR: Regular rate and rhythm, normal S1 and S2, no murmur, rub, click appreciated RESPIRATORY: Clear to auscultation bilaterally, adequate inspiratory and expiratory airway excursion, no wheeze, rhonchi, crackles ABDOMINAL: Large, rounded, soft, nontender, nondistended, bowel sounds appreciated EXTREMITIES: Moving all 4 extremities appropriately, radial pulses appreciated bilaterally, equal, symmetrical +2/4; lower extremities without appreciable pitting edema, posterior tibial pulses appreciated bilaterally, equal, symmetrical, +2/4 NEUROLOGICAL: Cranial nerves II through XII are grossly intact PSYCHOLOGICAL: Mood and affect appear appropriate LABORATORY DATA: Please see below. MICROBIOLOGY: Please see below. DVT prophylaxis ordered?: Heparin 5000 units subcutaneous every 8 hours ASSESSMENT AND PLAN: Ms. Stern is a 71-year-old female who presented with acute on chronic hypoxic respiratory failure. PROBLEMS: 1. Acute on chronic hypoxic respiratory failure: Likely multifactorial with possible etiology being COPD exacerbation resulting in CO2 retention and possibly contributing to acute kidney injury. Patient remains on 2 L by nasal cannula with a saturation of 94%. Prednisone has been discontinued for the time being as well as likely contributing factor to patient's hyperglycemia. WBC 8. Patient remains on fluid restriction of 1500 mL. 2. Hyperglycemia: Patient's blood glucoses morning was 379, however overnight POC glucose checks were in the 600s. Overnight team acutely managed hyperglycemia. Patient remains on 150 units of Levemir twice a day with sliding scale insulin and hypoglycemic protocol. Patient did have inappropriate outside food in her room last evening that is not conducive with a diabetic diet. Patient remains on a consistent carbohydrate and low calorie diet. Have placed a dietary consult. 3. Positive urine culture: Urine culture positive for pseudomonas aeruginosa. Patient complains of dysuria and urinary frequency. Afebrile with no white count at this time. Patient reports a history of urinary tract infections. Prior urine cultures report Pseudomonas aeruginosa. At this time will hold antbiotics, but if patient clinically deteriorates, could consider initiating antibiotics. 4. Anemia: Patient's hemoglobin and hematocrit are 8.7 and 31.3, respectively. Patient is on ferrous gluconate 324 mg. We'll be obtaining iron studies, follow- up hemoglobin and hematocrit, and stool for occult blood. 5. Diabetes mellitus: Blood sugar on evaluation was 379. Continues to receive Levemir 150 units twice a day, sliding scale insulin for coverage, and hypoglycemic protocol. 6. Diastolic congestive heart failure, left ventricular ejection fraction 60%: Continue to hold torsemide and spironolactone at this time secondary to acute kidney injury. Patient's blood pressure this morning was 117/55. 7. Acute kidney failure superimposed on chronic kidney disease: Patient's BUN and creatinine are 31 and 1.71, respectively. Continue to hold patient's diuretics at this time. 8. Hypertension: Patient's blood pressure at time of evaluation was 117/55. Currently holding patient's antihypertensives. 7. Anemia: Patient's hemoglobin and hematocrit 10.2 and 35.8, respectively. Patient remains on ferrous gluconate 324 mg daily. 8. Irritable bowel syndrome: Continue patient on Colace, magnesium hydroxide, Senokot, Bisacodyl, and lactulose. 9. Gastroesophageal reflux disease: Continue patient on Prilosec and sucralfate. 10. Depression/anxiety: Continue patient on fluoxetine. 11. Seizure disorder: Continue patient on Keppra. 12. Gout: Continue patient on colchicine. 13. Seasonal allergies: Continue patient on Mucinex. 14. Nausea and vomiting: Continue patient on scopolamine, Zofran, and Reglan. 15. Obstructive sleep apnea: Patient may use home CPAP machine. Monitor with continuous pulse oximetry. Patient's oxygenation at time of evaluation was 94% on 2 L by nasal cannula. 16. Chronic low back pain: Continue patient on Lyrica and baclofen. DISPOSITION: Patient remains on 2 L by nasal cannula and breathing treatments as necessary. Steroids have been discontinued secondary to hyperglycemia. Have initiated dietary consult secondary to patient's hyperglycemia. Order iron studies, follow-up hemoglobin and hematocrit, and stool for occult blood secondary to patient's anemia. Holding diuretics at this time secondary to patient's acute kidney injury superimposed on chronic kidney disease. Urine culture positive for Pseudomonas with patient complaining of subjective symptoms. Could consider initiating antibiotic. If blood glucose levels remained stable likely the patient be transferred to the medical surgical unit. VS, I&O, 24H, Fishbone Vital Signs/I&O Vital Signs Date Time Temp Pulse Resp B/P (MAP) Pulse Ox O2 Delivery O2 Flow Rate FiO2 08/07/16 04:00 98.5 72 18 117/55 (75) 94 NIPPV (BIPAP/CPAP) 2.0 I&O- Last 24 Hours up to 6 AM 08/07/16 06:00 Intake Total 2280 ml Output Total 2650 ml Balance -370 ml Laboratory Data 24H LABS Laboratory Tests 2 08/06/16 11:34: Bedside Glucose (Misc Panel) 556*H 08/06/16 11:36: Bedside Glucose (Misc Panel) 552*H 08/06/16 14:16: Total Creatine Kinase 34, Creatine Kinase MB 1.0, Creatine Kinase MB Relative Index 2.94, Troponin I < 0.02 08/06/16 16:32: Bedside Glucose (Misc Panel) > 600*H 08/06/16 16:35: Bedside Glucose (Misc Panel) > 600*H 08/06/16 17:20: Bedside Glucose Confirm (Misc) 681*H 08/06/16 20:17: Bedside Glucose (Misc Panel) > 600*H 08/06/16 20:36: Bedside Glucose Confirm (Misc) 685*H 08/06/16 22:02: Bedside Glucose Confirm (Misc) 648*H 08/06/16 22:04: Total Creatine Kinase 23L, Creatine Kinase MB 1.0, Creatine Kinase MB Relative Index 4.34H, Troponin I < 0.02 08/06/16 22:31: Bedside Glucose (Misc Panel) > 600*H 08/07/16 00:30: Anion Gap 8, Glomerular Filtration Rate 27.7L, Blood Urea Nitrogen 32H, Creatinine 1.90H, Sodium Level 139, Potassium Level 4.7, Chloride Level 100, Carbon Dioxide Level 31, Calcium Level 9.1, Iron Level 25L, Total Iron Binding Capacity 383, Transferrin % Saturation 6.5L, Ferritin 22 08/07/16 02:57: Bedside Glucose (Misc Panel) 534*H 08/07/16 04:37: White Blood Count 8.0, Red Blood Count 3.91L, Hemoglobin 8.7L, Hematocrit 31.3L , Mean Corpuscular Volume 80.0, Mean Corpuscular Hemoglobin 22.3L, Mean Corpuscular Hemoglobin Concent 27.9L, Red Cell Distribution Width 19.5H, Platelet Count 132L, Neutrophils (%) (Auto) 79.2H, Lymphocytes (%) (Auto) 9.6L, Monocytes (%) (Auto) 8.2H, Eosinophils (%) (Auto) 0.8, Basophils (%) (Auto) 0.4 , Neutrophils # (Auto) 6.4, Lymphocytes # (Auto) 0.9L, Monocytes # (Auto) 0.7, Eosinophils # (Auto) 0.1, Basophils # (Auto) 0.0, Large Unclassified Cells % 1.8 , Large Unclassified Cells # 0.1, Platelet Estimate NORMAL, Polychromasia 1+, Hypochromasia 2+, Anisocytosis 2+, Anion Gap 8, Glomerular Filtration Rate 31.2L , Blood Urea Nitrogen 31H, Creatinine 1.71H, Sodium Level 141, Potassium Level 4.6, Chloride Level 102, Carbon Dioxide Level 31, Calcium Level 8.8, Aspartate Amino Transf (AST/SGOT) 20, Alanine Aminotransferase (ALT/SGPT) 58, Alkaline Phosphatase 71, Total Bilirubin 0.2, Total Protein 6.0L, Albumin 2.7L, Magnesium Level 2.8H, Albumin/Globulin Ratio 0.82L CBC/BMP Laboratory Tests 08/07/16 00:30 Calcium Level 9.1 08/07/16 04:37 Calcium Level 8.8, Red Blood Count 3.91 L, Mean Corpuscular Volume 80.0, Mean Corpuscular Hemoglobin 22.3 L, Mean Corpuscular Hemoglobin Concent 27.9 L, Red Cell Distribution Width 19.5 H, Neutrophils (%) (Auto) 79.2 H, Lymphocytes (%) ( Auto) 9.6 L, Monocytes (%) (Auto) 8.2 H, Eosinophils (%) (Auto) 0.8, Basophils ( %) (Auto) 0.4, Neutrophils # (Auto) 6.4, Lymphocytes # (Auto) 0.9 L, Monocytes # (Auto) 0.7, Eosinophils # (Auto) 0.1, Basophils # (Auto) 0.0, Aspartate Amino Transf (AST/SGOT) 20, Alanine Aminotransferase (ALT/SGPT) 58, Alkaline Phosphatase 71, Total Bilirubin 0.2, Total Protein 6.0 L, Albumin 2.7 L Microbiology Microbiology 08/06/16 Gram Stain - Final, Resulted 08/06/16 Sputum Culture, Resulted Pending 08/05/16 Urine Culture - Final, Complete Pseudomonas Aeruginosa KALEY DIAZ August 07, 2016 09:40
[2016-08-07] MEDS: FLUoxetine 20 MG CAP PO SCH (11:55)
[2016-08-07] MEDS: TORSEMIDE 20 MG TAB PO SCH (13:42)
[2016-08-07] MEDS: ACETAMINOPHEN TAB 650MG DOSE (2X325MG) PO PRN (15:18)
[2016-08-07] MEDS: SPIRONOLACTONE 25 MG TAB PO SCH (17:08)
[2016-08-07] MEDS ORDERED: HumaLOG INSULIN (NovoLOG) PER UNIT SC SCH (21:00)
[2016-08-08 03:10] VITALS: O2SAT 96
[2016-08-08] MEDS: IPRATROPIUM 0.5MG/ALBUTEROL 2.5MG INH SOL UD 3ML (DUONEB)(J7620) NEB SCH ×5 (03:16→19:50)
[2016-08-08 06:00] VITALS: BP 169/72
[2016-08-08] MEDS: HEPARIN SOD (PORCINE) 5000 UNITS/ML VIAL SC SCH ×3 (06:05→20:46)
[2016-08-08 06:23] LABS: BASO % 0.6 % (0.0-1.0); EOS # 0.1 K/mm3 (0.0-0.50); LARGE UNSTAINED CELL # 0.2 K/mm3 (0.0-0.4); LARGE UNSTAINED CELL % 3.2 % (0.0-4.0); LYMPH # 1.3 K/mm3 (1.5-4.5); LYMPH % 20.7 % (24.0-44.0); MEAN CORPUSCULAR HEMOGLOBIN 23.2 pg (27.0-33.0); MEAN CORPUSCULAR HGB CONC 27.9 g/dl (32.0-36.5); MEAN CORPUSCULAR VOLUME 83.1 fl (80.0-96.0); MONO # 0.5 K/mm3 (0.0-0.8); NEUTROPHILS # 4.4 K/mm3 (1.8-7.7); NEUTROPHILS % 67.6 % (36.0-66.0); PLATELET COUNT, AUTOMATED 158 k/mm3 (150-450); WHITE BLOOD COUNT 6.5 K/mm3 (4.0-10.0)
[2016-08-08 07:07] VITALS: O2SAT 98
[2016-08-08 07:37] LABS: ALBUMIN 2.9 GM/DL (3.2-5.2); ALBUMIN/GLOBULIN RATIO 1.07 (1.00-1.93); BILIRUBIN,TOTAL 0.2 MG/DL (0.2-1.0); CALCIUM LEVEL 8.3 MG/DL (8.8-10.2); CREATININE FOR GFR 1.71 MG/DL (0.55-1.02); GLOMERULAR FILTRATION RATE 31.2 (>39); MAGNESIUM LEVEL 2.4 MG/DL (1.8-2.4); POTASSIUM SERUM 4.2 MEQ/L (3.5-5.1); TOTAL PROTEIN 5.6 GM/DL (6.4-8.2)
[2016-08-08] MEDS: PROMETHAZINE 25 MG TAB PO SCH ×3 (08:00→16:56)
[2016-08-08] MEDS: FERROUS GLUCONATE 324 MG TAB PO SCH (08:00)
[2016-08-08] MEDS: levETIRAcetam 250MG TABLET (KEPPRA) PO SCH ×4 (08:00→20:45)
[2016-08-08] MEDS: OMEPRAZOLE 20 MG CAP PO SCH ×2 (08:00→20:44)
[2016-08-08] MEDS: METOCLOPRAMIDE 10 MG TAB PO SCH ×3 (08:01→20:45)
[2016-08-08] MEDS: COLCHICINE 0.6 MG TAB PO SCH (08:01)
[2016-08-08] MEDS: SPIRONOLACTONE 25 MG TAB PO SCH ×2 (08:01→16:56)
[2016-08-08] MEDS: DOCUSATE SODIUM 100 MG CAP PO SCH ×2 (08:01→20:45)
[2016-08-08] MEDS: ASPIRIN 81 MG ENTERIC TAB PO SCH (08:01)
[2016-08-08] MEDS: PREGABALIN 100 MG CAP (LYRICA) PO SCH ×3 (08:01→20:45)
[2016-08-08] MEDS: BACLOFEN 10 MG TAB PO SCH ×2 (08:01→20:44)
[2016-08-08] MEDS: LACTULOSE 20 GM/30 ML SYRUP UD PO SCH ×2 (08:02→20:45)
[2016-08-08] MEDS: ONDANSETRON 4 MG TAB (S0181) PO SCH ×4 (08:02→20:45)
[2016-08-08] MEDS: TORSEMIDE 20 MG TAB PO SCH (08:02)
[2016-08-08] MEDS: LEVEMIR (INSULIN DETEMIR) 1 UNITS/0.01ML SC SCH ×2 (08:03→20:46)
[2016-08-08] MEDS: HumaLOG INSULIN (NovoLOG) PER UNIT SC SCH ×4 (08:03→20:47)
[2016-08-08] MEDS: SUCRALFATE 1 GM TAB PO SCH ×2 (09:00→20:45)
[2016-08-08] MEDS: SODIUM CHLORIDE 0.9% INJ 10 ML SYR IV SCH (09:00)
[2016-08-08] MEDS: FLUoxetine 20 MG CAP PO SCH (13:05)
[2016-08-08 14:00] VITALS: BP 158/71
--- NOTE | 2016-08-08 14:50 | IPNPDOC ---
Subjective Date Seen The patient was seen on 08/08/16. Subjective Chief Complaint/HPI The patient is a 71-year-old female admitted with a reason for visit of Acute On Chronic Resp Failure W Hypoxia. General: Denies: Chills, Night Sweats Constitutional: Denies: Chills, Fever Eyes: Denies: Pain, Vision change ENT: Denies: Head Aches, Ear Pain Skin: Denies: Rash, Lesions Pulmonary: Reports: Dyspnea, Cough Cardiovascular: Denies: Chest Pain, Palpitations Gastrointestinal: Denies: Nausea, Vomiting Genitourinary: Denies: Dysuria, Frequency Hematologic: Denies: Bruising, Bleeding Excessively Objective Physical Examination General Exam: Positive: Alert, Cooperative, No Acute Distress ENT Exam: Positive: Atraumatic, Mucous membr. moist/pink Neck Exam: Negative: JVD Chest Exam: Positive: Rhonchi (In the Upper lung zones B/L), Wheezing, Diminished Heart Exam: Positive: Rate Normal, Normal S1, Normal S2 Abdomen Exam: Positive: Soft, Negative: Tenderness Extremity Exam: Positive: Swelling (2+ pitting edema in the lower extremities bilaterally), Negative: Tenderness Psych Exam: Positive: Oriented x 3 Assessment /Plan Plan/VTE VTE Prophylaxis Ordered?: Yes Plan Acute on Chronic Hypoxic Respiratory Failure 2/2 Viral PNA, in a patient with underlying COPD CXR, and CT Chest noted Cont Albuterol, Inhaler, and Nebulizer Therapy Respiratory Panel + for Rhinovirus/Enterovirus We will hold off on giving the patient any more steroids as she does develop significant hyperglycemia following administration-status post 140 mg of Solu- Medrol since admission At this time, the patient is currently saturating 95% on 1 L of oxygen via nasal cannula and her respiratory status is improving Will continue supportive therapy for now and monitor the patient's respiratory status Diabetes mellitus, uncontrolled Continue the patient on 150 units of Levemir twice a day The patient's insulin sliding scale has been adjusted for higher doses We'll continue to monitor the patient's blood glucose levels and titrate basal and bolus dosing as indicated Iron deficiency anemia Anemia Hemoglobin noted to be a 8.7 this morning Continue ferrous gluconate 324 mg No overt signs of bleeding noted Stool occult pending Diastolic congestive heart failure Last echocardiogram notable for an left ventricular ejection fraction of 60% Continue patient on torsemide and spinal or tone Stage IIIB chronic kidney disease Serum creatinine appears to be her baseline Hypertension, stable Continue current regimen Irritable bowel syndrome Continue patient on Colace, magnesium hydroxide, Senokot, Bisacodyl, and lactulose. Gastroesophageal reflux disease Continue patient on Prilosec and sucralfate. Depression/anxiety Continue on fluoxetine. Seizure disorder Continue Keppra. Gout Continue colchicine. Obstructive sleep apnea May use home CPAP machine Chronic low back pain Continue Lyrica and baclofen DVT prophylaxis-heparin subcutaneous Disposition-we'll continue to optimize patient's respiratory status with supportive treatment. Physical therapy evaluation ordered. VS, I&O, 24H, Fishbone Vital Signs/I&O Vital Signs Date Time Temp Pulse Resp B/P (MAP) Pulse Ox O2 Delivery O2 Flow Rate FiO2 08/08/16 07:30 Nasal Cannula 1.0 08/08/16 07:07 98 08/08/16 06:00 97.9 90 20 169/72 (104) I&O- Last 24 Hours up to 6 AM 08/08/16 05:59 Intake Total 2040 ml Output Total 1850 ml Balance 190 ml Laboratory Data 24H LABS Laboratory Tests 2 08/07/16 16:45: Bedside Glucose (Misc Panel) 496H 08/07/16 20:12: Bedside Glucose (Misc Panel) 478H 08/08/16 06:04: White Blood Count 6.5, Red Blood Count 3.75L, Hemoglobin 8.7L, Hematocrit 31.1L , Mean Corpuscular Volume 83.1, Mean Corpuscular Hemoglobin 23.2L, Mean Corpuscular Hemoglobin Concent 27.9L, Red Cell Distribution Width 20.0H, Platelet Count 158, Neutrophils (%) (Auto) 67.6H, Lymphocytes (%) (Auto) 20.7L, Monocytes (%) (Auto) 7.0H, Eosinophils (%) (Auto) 1.0, Basophils (%) (Auto) 0.6 , Neutrophils # (Auto) 4.4, Lymphocytes # (Auto) 1.3L, Monocytes # (Auto) 0.5, Eosinophils # (Auto) 0.1, Basophils # (Auto) 0.0, Large Unclassified Cells % 3.2 , Large Unclassified Cells # 0.2, Anion Gap 9, Glomerular Filtration Rate 31.2L , Blood Urea Nitrogen 37H, Creatinine 1.71H, Sodium Level 142, Potassium Level 4.2, Chloride Level 101, Carbon Dioxide Level 32, Calcium Level 8.3L, Aspartate Amino Transf (AST/SGOT) 20, Alanine Aminotransferase (ALT/SGPT) 55, Alkaline Phosphatase 74, Total Bilirubin 0.2, Total Protein 5.6L, Albumin 2.9L, Magnesium Level 2.4, Albumin/Globulin Ratio 1.07 08/08/16 11:50: Bedside Glucose (Misc Panel) 411H CBC/BMP Laboratory Tests 08/08/16 06:04 Red Blood Count 3.75 L, Mean Corpuscular Volume 83.1, Mean Corpuscular Hemoglobin 23.2 L, Mean Corpuscular Hemoglobin Concent 27.9 L, Red Cell Distribution Width 20.0 H, Neutrophils (%) (Auto) 67.6 H, Lymphocytes (%) (Auto ) 20.7 L, Monocytes (%) (Auto) 7.0 H, Eosinophils (%) (Auto) 1.0, Basophils (%) (Auto) 0.6, Neutrophils # (Auto) 4.4, Lymphocytes # (Auto) 1.3 L, Monocytes # ( Auto) 0.5, Eosinophils # (Auto) 0.1, Basophils # (Auto) 0.0, Calcium Level 8.3 L , Aspartate Amino Transf (AST/SGOT) 20, Alanine Aminotransferase (ALT/SGPT) 55, Alkaline Phosphatase 74, Total Bilirubin 0.2, Total Protein 5.6 L, Albumin 2.9 L Microbiology Microbiology 08/07/16 Respiratory Virus Panel (PCR) (G[facility]Y) - Final, Complete Human Rhinovirus/Enterovirus 08/06/16 Gram Stain - Final, Complete 08/06/16 Sputum Culture - Final, Complete Yeast Like Organism 08/05/16 Urine Culture - Final, Complete Pseudomonas Aeruginosa ANGELA GIBSON MD August 08, 2016 14:50
[2016-08-08] MEDS: ACETAMINOPHEN TAB 650MG DOSE (2X325MG) PO PRN ×2 (15:19→22:42)
[2016-08-08] MEDS ORDERED: FIORICET TAB PO ONE (17:30)
[2016-08-08 22:00] VITALS: BP 165/75
[2016-08-09] MEDS: IPRATROPIUM 0.5MG/ALBUTEROL 2.5MG INH SOL UD 3ML (DUONEB)(J7620) NEB SCH ×7 (00:01→23:33)
[2016-08-09 06:00] VITALS: BP 135/72
[2016-08-09] MEDS: HEPARIN SOD (PORCINE) 5000 UNITS/ML VIAL SC SCH ×3 (06:04→21:22)
[2016-08-09 06:28] LABS: MEAN CORPUSCULAR HEMOGLOBIN 22.7 pg (27.0-33.0); MEAN CORPUSCULAR HGB CONC 28.1 g/dl (32.0-36.5); MEAN CORPUSCULAR VOLUME 80.8 fl (80.0-96.0); PLATELET COUNT, AUTOMATED 133 k/mm3 (150-450); RED CELL DISTRIBUTION WIDTH 19.8 % (11.5-14.5); WHITE BLOOD COUNT 4.3 K/mm3 (4.0-10.0)
[2016-08-09 06:38] LABS: ALBUMIN 2.7 GM/DL (3.2-5.2); ALBUMIN/GLOBULIN RATIO 0.84 (1.00-1.93); BILIRUBIN,TOTAL 0.2 MG/DL (0.2-1.0); CREATININE FOR GFR 1.67 MG/DL (0.55-1.02); GLOMERULAR FILTRATION RATE 32.1 (>39); MAGNESIUM LEVEL 2.3 MG/DL (1.8-2.4); POTASSIUM SERUM 3.9 MEQ/L (3.5-5.1); TOTAL PROTEIN 5.9 GM/DL (6.4-8.2)
[2016-08-09 07:16] LABS: BANDS 4 % (< 11); EOSINOPHILS 1 % (0-5)
[2016-08-09 07:17] LABS: HYPOCHROMASIA 3+; MICROCYTOSIS 1+
[2016-08-09 07:18] LABS: ANISOCYTOSIS 2+
[2016-08-09] MEDS: LEVEMIR (INSULIN DETEMIR) 1 UNITS/0.01ML SC SCH ×2 (08:10→21:23)
--- NOTE | 2016-08-09 08:10 | IPNPDOC ---
Date Seen The patient was seen on 08/09/16. Progress Note SUBJECTIVE: Ms. Stern is examined at bedside this morning. She is laying comfortably. She reports a sore throat and a dry mouth. She remains on a fluid restriction. She would like to know when she can go home. OBJECTIVE PHYSICAL EXAMINATION: VITAL SIGNS: Please see below. GENERAL: Obese female laying comfortably in the hospital bed upon evaluation this morning, well nourished, well developed, no acute distress HEENT: Atraumatic, normocephalic, PERRL, EOMI, oral mucosa is dry, edentulous, nasal septum appears midline CARDIOVASCULAR: Regular rate and rhythm, normal S1 and S2, no murmur, click, rub appreciated RESPIRATORY: Rhonchi present, adequate inspiratory and expiratory airway excursion, wears BiPAP ABDOMINAL: Round, soft, non-tender, bowel sounds diminished EXTREMITIES: Moving all four extremities appropriately, upper and lower peripheral pulses appreciated bilaterally, equal, symmetrical, +2/4, trace pitting edema appreciated in the lower extremities NEUROLOGICAL: CN II-XII appear grossly intact PSYCHOLOGICAL: Mood and affect appear appropriate LABORATORY DATA: Please see below. MICROBIOLOGY: Please see below. DVT prophylaxis ordered?: Heparin 5000 units subcutaneous every 8 hours ASSESSMENT AND PLAN: Ms. Stern is a 71-year-old female who presented with acute on chronic hypoxic respiratory failure. PROBLEMS: 1. Acute on chronic hypoxic respiratory failure: Improving. Sputum positive for rhinovirus/enterovirus. Remains afebrile. Oxygenating at 95% on 2L via nasal cannula. Also wears BiPAP. Remains on fluid restriction of 2200mL. "Patient needs the Trilogy noninvasive vent due to chronic respiratory failure secondary to COPD. BiPAP has been considered but it does not offer the best mode of ventilation. The Trilogy offers the AVAP-AE mode which will target the patient's tidal volume based on her ideal body weight. This mod allows the patient to exhale down to baseline where the BiPAP does not and often times causes breath stacking and air trapping. The Trilogy will reduce CO2 levels, rest respiratory muscles. The Trilogy provides an internal and external battery which will allows it to operate in the event of loss of power as patient is at risk for a serious medical consequence. The Trilogy also offers the sip and puff mode which can be used during the day with mouth piece ventilation. The Trilogy will improve the patient's quality of life and reduce hospitalizations. It will provide the pulmonary support the patient needs." 2. Cough: Sputum positive for rhinovirus/enterovirus. Likely secondary to BiPAP. Oral mucosa in dry. Providing cough drops for symptomatic relief. 3. Hyperglycemia: Patient's blood glucoses morning was 391. Continue with patient's 150 units of Levemir twice a day with sliding scale insulin and hypoglycemic protocol. Patient remains on a consistent carbohydrate and low calorie diet. Nutritional consult recommended that patient can have four carbohydrates at meal times and that they will monitor patient's ordering and restrict when necessary. 4. Anemia, iron deficient: Patient's hemoglobin and hematocrit are 8.2 and 29.3 , respectively. Patient is on ferrous gluconate 324 mg. Iron studies appears to indicate iron deficiency anemia. Awaiting stool sample for occult blood. 5. Diabetes mellitus: Blood sugar on evaluation was 391. Continues to receive Levemir 150 units twice a day, sliding scale insulin for coverage, and hypoglycemic protocol. 6. Diastolic congestive heart failure, left ventricular ejection fraction 60%: Patient has been started on torsemide and spironolactone. Fluid restriction of 2200mL in place. Patient's blood pressure this morning was 135/72. 7. Acute kidney failure superimposed on chronic kidney disease: Patient's BUN and creatinine are 29 and 1.67, respectively. Appears to be back at baseline. Patient continues on torsemide and spironolactone. 8. Hypertension: Patient's blood pressure at time of evaluation was 135/72. Diuretics have been started. 9. Irritable bowel syndrome: Continue patient on Colace, magnesium hydroxide, Senokot, Bisacodyl, and lactulose. 10. Gastroesophageal reflux disease: Continue patient on Prilosec and sucralfate. 11. Depression/anxiety: Continue patient on fluoxetine. 12. Seizure disorder: Continue patient on Keppra. 13. Gout: Continue patient on colchicine. 14. Seasonal allergies: Continue patient on Mucinex. 15. Nausea and vomiting: Continue patient on scopolamine, Zofran, and Reglan. 16. Obstructive sleep apnea: Patient may use home CPAP machine. Monitor with continuous pulse oximetry. Patient's oxygenation at time of evaluation was 95% on 2 L by nasal cannula. 17. Chronic low back pain: Continue patient on Lyrica and baclofen. DISPOSITION: Patient's renal function appears to be at baseline. Diuretics have been started. Increased fluid restriction to 2200mL. Iron studies appear to indicated iron deficiency. Remain on iron supplementation. Continues on supplemental oxygenation via nasal cannula and BiPAP. Hyperglycemia managed with basal insulin, sliding scale, and hypoglycemic protocol. Provided cough lozenge for symptomatic relief. VS, I&O, 24H, Fishbone Vital Signs/I&O Vital Signs Date Time Temp Pulse Resp B/P (MAP) Pulse Ox O2 Delivery O2 Flow Rate FiO2 08/09/16 06:00 98.3 81 18 135/72 (93) 95 Nasal Cannula 2.0 I&O- Last 24 Hours up to 6 AM 08/09/16 05:59 Intake Total 1480 ml Output Total 1600 ml Balance -120 ml Laboratory Data 24H LABS Laboratory Tests 2 08/08/16 11:50: Bedside Glucose (Misc Panel) 411H 08/08/16 16:51: Bedside Glucose (Misc Panel) 414H 08/08/16 20:07: Bedside Glucose (Misc Panel) 404H 08/08/16 20:08: Bedside Glucose (Misc Panel) 424H 08/09/16 06:02: Neutrophils 65, Band Neutrophils 4, Lymphocytes (Manual) 20, Monocytes (Manual) 8, Eosinophils (Manual) 1, Metamyelocytes 2H, Platelet Estimate NORMAL, Hypochromasia 3+, Anisocytosis 2+, Microcytosis 1+, Anion Gap 6L, Glomerular Filtration Rate 32.1L, Blood Urea Nitrogen 29H, Creatinine 1.67H, Sodium Level 141, Potassium Level 3.9, Chloride Level 101, Carbon Dioxide Level 34H, Calcium Level 8.0L, Aspartate Amino Transf (AST/SGOT) 21, Alanine Aminotransferase (ALT/ SGPT) 54, Alkaline Phosphatase 75, Total Bilirubin 0.2, Total Protein 5.9L, Albumin 2.7L, Magnesium Level 2.3, Albumin/Globulin Ratio 0.84L CBC/BMP Laboratory Tests 08/09/16 06:02 Red Blood Count 3.63 L, Mean Corpuscular Volume 80.8, Mean Corpuscular Hemoglobin 22.7 L, Mean Corpuscular Hemoglobin Concent 28.1 L, Red Cell Distribution Width 19.8 H, Calcium Level 8.0 L, Aspartate Amino Transf (AST/SGOT ) 21, Alanine Aminotransferase (ALT/SGPT) 54, Alkaline Phosphatase 75, Total Bilirubin 0.2, Total Protein 5.9 L, Albumin 2.7 L Microbiology Microbiology 08/07/16 Respiratory Virus Panel (PCR) (G[facility]) - Final, Complete Human Rhinovirus/Enterovirus 08/06/16 Gram Stain - Final, Complete 08/06/16 Sputum Culture - Final, Complete Yeast Like Organism 08/05/16 Urine Culture - Final, Complete Pseudomonas Aeruginosa KALEY DIAZ-I August 09, 2016 08:10
[2016-08-09] MEDS: HumaLOG INSULIN (NovoLOG) PER UNIT SC SCH ×4 (08:11→21:24)
[2016-08-09] MEDS: SODIUM CHLORIDE 0.9% INJ 10 ML SYR IV SCH (08:12)
[2016-08-09] MEDS: DOCUSATE SODIUM 100 MG CAP PO SCH ×2 (08:12→21:22)
[2016-08-09] MEDS: COLCHICINE 0.6 MG TAB PO SCH (08:12)
[2016-08-09] MEDS: SUCRALFATE 1 GM TAB PO SCH ×2 (08:12→21:22)
[2016-08-09] MEDS: OMEPRAZOLE 20 MG CAP PO SCH ×2 (08:12→21:23)
[2016-08-09] MEDS: ASPIRIN 81 MG ENTERIC TAB PO SCH (08:12)
[2016-08-09] MEDS: levETIRAcetam 250MG TABLET (KEPPRA) PO SCH ×4 (08:12→21:22)
[2016-08-09] MEDS: BACLOFEN 10 MG TAB PO SCH ×2 (08:12→21:22)
[2016-08-09] MEDS: FERROUS GLUCONATE 324 MG TAB PO SCH (08:13)
[2016-08-09] MEDS: LACTULOSE 20 GM/30 ML SYRUP UD PO SCH ×2 (08:13→21:22)
[2016-08-09] MEDS: PREGABALIN 100 MG CAP (LYRICA) PO SCH ×3 (08:13→21:22)
[2016-08-09] MEDS: METOCLOPRAMIDE 10 MG TAB PO SCH ×3 (08:13→21:23)
[2016-08-09] MEDS: TORSEMIDE 20 MG TAB PO SCH (08:13)
[2016-08-09] MEDS: ONDANSETRON 4 MG TAB (S0181) PO SCH ×4 (08:13→21:23)
[2016-08-09] MEDS: SPIRONOLACTONE 25 MG TAB PO SCH ×2 (08:13→16:51)
[2016-08-09] MEDS: PROMETHAZINE 25 MG TAB PO SCH ×3 (08:13→16:55)
[2016-08-09] MEDS: FLUoxetine 20 MG CAP PO SCH (12:16)
[2016-08-09] MEDS: ACETAMINOPHEN TAB 650MG DOSE (2X325MG) PO PRN (12:17)
[2016-08-09 14:00] VITALS: BP 160/80
[2016-08-09 22:00] VITALS: BP 138/62
[2016-08-10] MEDS: IPRATROPIUM 0.5MG/ALBUTEROL 2.5MG INH SOL UD 3ML (DUONEB)(J7620) NEB SCH ×6 (03:46→23:02)
[2016-08-10] MEDS: HEPARIN SOD (PORCINE) 5000 UNITS/ML VIAL SC SCH (05:31)
[2016-08-10 06:00] VITALS: BP 138/63
[2016-08-10 06:22] LABS: MEAN CORPUSCULAR HEMOGLOBIN 23.2 pg (27.0-33.0); MEAN CORPUSCULAR HGB CONC 28.8 g/dl (32.0-36.5); MEAN CORPUSCULAR VOLUME 80.8 fl (80.0-96.0); PLATELET COUNT, AUTOMATED 133 k/mm3 (150-450); RED CELL DISTRIBUTION WIDTH 19.8 % (11.5-14.5); WHITE BLOOD COUNT 5.2 K/mm3 (4.0-10.0)
[2016-08-10 06:45] LABS: ALBUMIN 2.7 GM/DL (3.2-5.2); ALBUMIN/GLOBULIN RATIO 0.84 (1.00-1.93); BILIRUBIN,TOTAL 0.3 MG/DL (0.2-1.0); CALCIUM LEVEL 8.4 MG/DL (8.8-10.2); CREATININE FOR GFR 1.53 MG/DL (0.55-1.02); GLOMERULAR FILTRATION RATE 35.5 (>39); MAGNESIUM LEVEL 2.2 MG/DL (1.8-2.4); POTASSIUM SERUM 4.2 MEQ/L (3.5-5.1); TOTAL PROTEIN 5.9 GM/DL (6.4-8.2)
[2016-08-10 07:19] LABS: BANDS 1 % (< 11); BASOPHILS 1 % (0-4); GIANT PLATELETS 1+
[2016-08-10 07:20] LABS: ANISOCYTOSIS 2+
[2016-08-10 07:21] LABS: OVALOCYTES 1+; TEAR DROP CELLS 1+
[2016-08-10] MEDS: SUCRALFATE 1 GM TAB PO SCH ×2 (08:41→20:21)
[2016-08-10] MEDS: BACLOFEN 10 MG TAB PO SCH ×2 (08:41→20:21)
[2016-08-10] MEDS: levETIRAcetam 250MG TABLET (KEPPRA) PO SCH ×4 (08:42→20:21)
[2016-08-10] MEDS: METOCLOPRAMIDE 10 MG TAB PO SCH ×3 (08:42→20:21)
[2016-08-10] MEDS: predniSONE 10 MG TAB PO SCH ×2 (08:42→20:21)
[2016-08-10] MEDS: SPIRONOLACTONE 25 MG TAB PO SCH ×2 (08:42→17:12)
[2016-08-10] MEDS: PREGABALIN 100 MG CAP (LYRICA) PO SCH ×3 (08:42→20:21)
[2016-08-10] MEDS: LACTULOSE 20 GM/30 ML SYRUP UD PO SCH ×2 (08:42→20:21)
[2016-08-10] MEDS: TORSEMIDE 20 MG TAB PO SCH (08:43)
[2016-08-10] MEDS: OMEPRAZOLE 20 MG CAP PO SCH ×2 (08:43→20:21)
[2016-08-10] MEDS: ONDANSETRON 4 MG TAB (S0181) PO SCH ×4 (08:43→20:21)
[2016-08-10] MEDS: COLCHICINE 0.6 MG TAB PO SCH (08:43)
[2016-08-10] MEDS: FERROUS GLUCONATE 324 MG TAB PO SCH (08:43)
[2016-08-10] MEDS: ASPIRIN 81 MG ENTERIC TAB PO SCH (08:43)
[2016-08-10] MEDS: PROMETHAZINE 25 MG TAB PO SCH ×3 (08:43→17:12)
[2016-08-10] MEDS: DOCUSATE SODIUM 100 MG CAP PO SCH ×2 (08:43→20:21)
[2016-08-10] MEDS: HumaLOG INSULIN (NovoLOG) PER UNIT SC SCH ×3 (08:44→17:13)
[2016-08-10] MEDS: LEVEMIR (INSULIN DETEMIR) 1 UNITS/0.01ML SC SCH ×2 (08:45→20:22)
[2016-08-10] MEDS: SODIUM CHLORIDE 0.9% INJ 10 ML SYR IV SCH (09:00)
--- NOTE | 2016-08-10 09:13 | IPNPDOC ---
Date Seen The patient was seen on 08/10/16. Progress Note SUBJECTIVE: Ms. Stern is evaluated at bedside this morning. RN is present in the room upon evaluation. Patient reports subjective lightheadedness. Also reports passing BRBPR yesterday. Stool occult positive. Discontinued heparin secondary to positive stool occult blood. Prior history of positive stool occult blood with prior colonoscopy in 2014 being negative. Renal function appears at baseline. Worsening in hyperglycemia. OBJECTIVE PHYSICAL EXAMINATION: VITAL SIGNS: Please see below. GENERAL: Obese female laying in hospital bed upon evaluation, well nourished, well developed, no acute distress HEENT: Atraumatic, normocephalic, PERRL, EOMI, oxygen mask in place, neck is supple, trachea midline CARDIOVASCULAR: Regular rate and rhythm, normal S1 and S2, no appreciable murmur , rub, click RESPIRATORY: Clear to auscultation bilaterally, forced upper respiratory wheezed noted with exhalation ABDOMINAL: Round, large, non-tender, non-distended, bowel sounds appreciated EXTREMITIES: Trace peripheral edema noted in bilateral lower extremities, peripheral pulses appreciated bilaterally in upper and lower extremities, equal , symmetrical, +2/4 NEUROLOGICAL: CN II-XII appear grossly intact PSYCHOLOGICAL: Mood and affect appear appropriate LABORATORY DATA: Please see below. MICROBIOLOGY: Please see below. DVT prophylaxis ordered?: TEDs and sequentials with knee high compression ASSESSMENT AND PLAN: Ms. Stern is a 71-year-old female who presented with acute on chronic hypoxic respiratory failure. PROBLEMS: 1. Acute on chronic hypoxic respiratory failure: Likely secondary to COPD exacerbation. 92% on 2L NC. Afebrile. No WBC. Continue to monitor. Initiated prednisone 10mg. 2. Iron deficiency anemia: Stool positive for occult blood. Consider evaluating with outpatient EGD and colonoscopy. Prior evaluations for positive stool occult blood have been negative. Asymptomatic at this time. 3. Diabetes mellitus, uncontrolled: Blood glucose this AM was 475. Levemir 150 units BID. SS has been adjusted. Monitor closely since steroid has been initiated and can negatively impact hyperglycemia. 4. Diastolic congestive heart failure, left ventricular ejection fraction 60%: On torsemide and spironolactone. Fluid restriction of 2200mL. BP 138/63. 7. Acute kidney failure superimposed on chronic kidney disease: Renal function appears at baseline. Negative fluid balance 1440mL. 8. Hypertension: On torsemide and spironolactone. 9. Irritable bowel syndrome: Continue patient on Colace, magnesium hydroxide, Senokot, Bisacodyl, and lactulose. 10. Gastroesophageal reflux disease: Continue patient on Prilosec and sucralfate. 11. Depression/anxiety: Continue patient on fluoxetine. 12. Seizure disorder: Continue patient on Keppra. 13. Gout: Continue patient on colchicine. 14. Seasonal allergies: Continue patient on Mucinex. 15. Nausea and vomiting: Continue patient on scopolamine, Zofran, and Reglan. 16. Obstructive sleep apnea: Patient may use home CPAP machine. Monitor with continuous pulse oximetry. 92% on 2L NC. 17. Chronic low back pain: Continue patient on Lyrica and baclofen. DISPOSITION: Admitted to [address] [place] [address]. Continue managing COPD exacerbation. Monitor anemia. Control hyperglycemia. Potential discharge home once clinical picture improves. VS, I&O, 24H, Fishbone Vital Signs/I&O Vital Signs Date Time Temp Pulse Resp B/P (MAP) Pulse Ox O2 Delivery O2 Flow Rate FiO2 08/10/16 06:00 98.1 93 19 138/63 (88) 92 Nasal Cannula 2.0 I&O- Last 24 Hours up to 6 AM 08/10/16 05:59 Intake Total 1800 ml Output Total 3400 ml Balance -1600 ml Laboratory Data 24H LABS Laboratory Tests 2 08/09/16 11:44: Bedside Glucose (Misc Panel) 353H 08/09/16 19:39: Bedside Glucose (Misc Panel) 464H 08/10/16 05:32: Neutrophils 69, Band Neutrophils 1, Lymphocytes (Manual) 20, Monocytes (Manual) 3, Basophils (Manual) 1, Myelocytes 5H, Promyelocytes 1H, Platelet Estimate DECREASED, Giant Platelets 1+, Anisocytosis 2+, Tear Drop Cells 1+, Ovalocytes 1 +, Anion Gap 7L, Glomerular Filtration Rate 35.5L, Blood Urea Nitrogen 25H, Creatinine 1.53H, Sodium Level 139, Potassium Level 4.2, Chloride Level 97L, Carbon Dioxide Level 35H, Calcium Level 8.4L, Aspartate Amino Transf (AST/SGOT) 27, Alanine Aminotransferase (ALT/SGPT) 48, Alkaline Phosphatase 78, Total Bilirubin 0.3, Total Protein 5.9L, Albumin 2.7L, Magnesium Level 2.2, Albumin/ Globulin Ratio 0.84L CBC/BMP Laboratory Tests 08/10/16 05:32 Red Blood Count 3.59 L, Mean Corpuscular Volume 80.8, Mean Corpuscular Hemoglobin 23.2 L, Mean Corpuscular Hemoglobin Concent 28.8 L, Red Cell Distribution Width 19.8 H, Calcium Level 8.4 L, Aspartate Amino Transf (AST/SGOT ) 27, Alanine Aminotransferase (ALT/SGPT) 48, Alkaline Phosphatase 78, Total Bilirubin 0.3, Total Protein 5.9 L, Albumin 2.7 L Microbiology Microbiology 08/07/16 Stool Occult Blood (GORDY) - Final, Complete 08/07/16 Respiratory Virus Panel (PCR) (GORDY) - Final, Complete Human Rhinovirus/Enterovirus 08/06/16 Gram Stain - Final, Complete 08/06/16 Sputum Culture - Final, Complete Yeast Like Organism 08/05/16 Urine Culture - Final, Complete Pseudomonas Aeruginosa GME ATTESTATION GME ATTESTATION My preceptor for this patient encounter was physically present in the building during the encounter and was fully available. As needed, all aspects of the patient interview, examination, medical decision making process, and medical care plan development were reviewed and approved by the preceptor. Preceptor is aware and concurs with the plan as stated in the body of this note and will attest to such by his/her cosignature. ATTENDING NOTE I, Seymour Leonard, have both independently examined this patient as well as reviewed the documentation. I have discussed in detail with the resident the findings and plan of treatment as documented in the residents documentation. I will continue to follow the patient and offer further guidance to the patients care as necessary during this hospital stay. KALEY DIAZ August 10, 2016 09:13 SEYMOUR LEONARD MD August 24, 2016 14:19
[2016-08-10] MEDS: FLUoxetine 20 MG CAP PO SCH (11:59)
[2016-08-10 14:00] VITALS: BP 165/80
[2016-08-10 19:26] VITALS: O2SAT 95
[2016-08-10] MEDS ORDERED: HumaLOG INSULIN (NovoLOG) PER UNIT SC SCH (21:00)
[2016-08-10 22:00] VITALS: BP 170/74
[2016-08-11 03:30] VITALS: O2SAT 98
[2016-08-11] MEDS: IPRATROPIUM 0.5MG/ALBUTEROL 2.5MG INH SOL UD 3ML (DUONEB)(J7620) NEB SCH ×6 (03:36→22:26)
[2016-08-11 05:56] LABS: MEAN CORPUSCULAR HEMOGLOBIN 21.8 pg (27.0-33.0); MEAN CORPUSCULAR HGB CONC 26.9 g/dl (32.0-36.5); MEAN CORPUSCULAR VOLUME 80.9 fl (80.0-96.0); PLATELET COUNT, AUTOMATED 139 k/mm3 (150-450); RED CELL DISTRIBUTION WIDTH 20.3 % (11.5-14.5); WHITE BLOOD COUNT 4.7 K/mm3 (4.0-10.0)
[2016-08-11 06:00] VITALS: BP 141/65
[2016-08-11 06:55] LABS: ALBUMIN 2.7 GM/DL (3.2-5.2); ALBUMIN/GLOBULIN RATIO 0.84 (1.00-1.93); BILIRUBIN,TOTAL 0.3 MG/DL (0.2-1.0); CALCIUM LEVEL 8.6 MG/DL (8.8-10.2); CREATININE FOR GFR 1.67 MG/DL (0.55-1.02); GLOMERULAR FILTRATION RATE 32.1 (>39); MAGNESIUM LEVEL 2.3 MG/DL (1.8-2.4); POTASSIUM SERUM 4.2 MEQ/L (3.5-5.1); TOTAL PROTEIN 5.9 GM/DL (6.4-8.2)
[2016-08-11 06:56] LABS: BANDS 1 % (< 11); BASOPHILS 1 % (0-4)
[2016-08-11 06:57] LABS: ANISOCYTOSIS 2+; HYPOCHROMASIA 3+; MICROCYTOSIS 1+
[2016-08-11] MEDS: LACTULOSE 20 GM/30 ML SYRUP UD PO SCH ×2 (08:28→20:31)
[2016-08-11] MEDS: SODIUM CHLORIDE 0.9% INJ 10 ML SYR IV SCH (08:28)
[2016-08-11] MEDS: HumaLOG INSULIN (NovoLOG) PER UNIT SC SCH ×3 (08:29→17:53)
[2016-08-11] MEDS: LEVEMIR (INSULIN DETEMIR) 1 UNITS/0.01ML SC SCH ×2 (08:30→20:37)
[2016-08-11] MEDS: COLCHICINE 0.6 MG TAB PO SCH (08:30)
[2016-08-11] MEDS: OMEPRAZOLE 20 MG CAP PO SCH ×2 (08:30→20:32)
[2016-08-11] MEDS: SUCRALFATE 1 GM TAB PO SCH ×2 (08:30→20:32)
[2016-08-11] MEDS: FERROUS GLUCONATE 324 MG TAB PO SCH (08:30)
[2016-08-11] MEDS: BACLOFEN 10 MG TAB PO SCH ×2 (08:31→20:36)
[2016-08-11] MEDS: TORSEMIDE 20 MG TAB PO SCH (08:31)
[2016-08-11] MEDS: PROMETHAZINE 25 MG TAB PO SCH ×3 (08:31→17:22)
[2016-08-11] MEDS: PREGABALIN 100 MG CAP (LYRICA) PO SCH ×3 (08:31→20:32)
[2016-08-11] MEDS: DOCUSATE SODIUM 100 MG CAP PO SCH ×2 (08:31→20:32)
[2016-08-11] MEDS: ASPIRIN 81 MG ENTERIC TAB PO SCH (08:31)
[2016-08-11] MEDS: ONDANSETRON 4 MG TAB (S0181) PO SCH ×4 (08:32→20:31)
[2016-08-11] MEDS: levETIRAcetam 250MG TABLET (KEPPRA) PO SCH ×4 (08:32→20:32)
[2016-08-11] MEDS: predniSONE 10 MG TAB PO SCH ×2 (08:32→20:32)
[2016-08-11] MEDS: METOCLOPRAMIDE 10 MG TAB PO SCH ×3 (08:33→20:32)
[2016-08-11] MEDS: SPIRONOLACTONE 25 MG TAB PO SCH ×2 (08:34→17:22)
--- NOTE | 2016-08-11 10:44 | IPNPDOC ---
Date Seen The patient was seen on 08/11/16. Progress Note SUBJECTIVE: Ms. Stern is a 71-year-old female evaluated bedside this morning. She has a venturi-mask on during evaluation. Reports that it is difficult to maintain a diet with solid food secondary to being edentulous. Consistent carbohydrate diet has been adjusted to soft foods. Reports no further bloody bowel movements. Reports weakness. States that her has been bringing her watermelon. Have discouraged patient from eating outside food as her blood sugars have been somewhat difficult to control. Refused physical therapy treatment yesterday. Patient is anemic and will be receiving 1 unit of blood today. Consented patient. OBJECTIVE PHYSICAL EXAMINATION: VITAL SIGNS: Please see below. GENERAL: Obese female resting comfortably in hospital bed upon evaluation this morning, venturi-mask in place, well-developed, well-nourished, no apparent distress HEENT: Atraumatic, normocephalic, PERRL, EOMI, edentulous, nasal septum appears midline, nares appear patent CARDIOVASCULAR: Regular rate and rhythm, normal S1 and S2, no murmur, rub, click appreciated RESPIRATORY: Wheezes noted bilaterally in the upper lobes, somewhat difficult to assess the lower lobes bilaterally ABDOMINAL: Round, soft, nontender, bowel sounds appreciated EXTREMITIES: Peripheral pulses appreciated in the upper and lower extremities bilaterally, equal, symmetrical, +2/4; trace pitting edema noted in the lower extremities bilaterally NEUROLOGICAL: Cranial nerves II through XII appear grossly intact PSYCHOLOGICAL: Mood and affect appear appropriate LABORATORY DATA: Please see below. MICROBIOLOGY: Please see below. DVT prophylaxis ordered?: TEDs and sequentials with knee high compression ASSESSMENT AND PLAN: Ms. Stern is a 71-year-old female who presented with acute on chronic hypoxic respiratory failure. PROBLEMS: 1. Acute on chronic hypoxic respiratory failure: Likely secondary to COPD exacerbation. Remains on prednisone. 97% on Venturi mask. Afebrile. No WBC. Continue to monitor. 2. Iron deficiency anemia: Hemoglobin and hematocrit 7.9 and 29.2, respectively. Consented to receive 1 unit of blood. Recheck H&H in 2 hours after completion of blood transfusion. 3. Diabetes mellitus, uncontrolled: Blood glucose this AM was 453. Levemir 150 units BID. SS has been adjusted. Monitor closely. 4. Diastolic congestive heart failure, left ventricular ejection fraction 60%: On torsemide and spironolactone. Fluid restriction of 2200mL. BP 141/65. 7. Acute kidney failure superimposed on chronic kidney disease: Renal function appears at baseline. Negative fluid balance 240mL. 8. Hypertension: On torsemide and spironolactone. 9. Irritable bowel syndrome: Continue patient on Colace, magnesium hydroxide, Senokot, Bisacodyl, and lactulose. 10. Gastroesophageal reflux disease: Continue patient on Prilosec and sucralfate. 11. Depression/anxiety: Continue patient on fluoxetine. 12. Seizure disorder: Continue patient on Keppra. 13. Gout: Continue patient on colchicine. 14. Seasonal allergies: Continue patient on Mucinex. 15. Nausea and vomiting: Continue patient on scopolamine, Zofran, and Reglan. 16. Obstructive sleep apnea: Patient may use home CPAP machine. Monitor with continuous pulse oximetry. 97% on Venturi mask. 17. Chronic low back pain: Continue patient on Lyrica and baclofen. DISPOSITION: Admitted to [address] [place] [address]. Continue managing her medical conditions. Patient and family services trying to obtain Trilogy for patient's breathing. Therapy to continue treating patient. Potential discharge home once clinical picture improves. VS, I&O, 24H, Fishbone Vital Signs/I&O Vital Signs Date Time Temp Pulse Resp B/P (MAP) Pulse Ox O2 Delivery O2 Flow Rate FiO2 08/11/16 10:09 Venturi Mask 35 08/11/16 06:00 97.7 86 14 141/65 (90) 97 6.0 I&O- Last 24 Hours up to 6 AM 08/11/16 06:00 Intake Total 1860 ml Output Total 3700 ml Balance -1840 ml Laboratory Data 24H LABS Laboratory Tests 2 08/10/16 11:30: Bedside Glucose (Misc Panel) 403H 08/10/16 16:51: Bedside Glucose (Misc Panel) 442H 08/10/16 19:43: Bedside Glucose (Misc Panel) 476H 08/11/16 05:28: Neutrophils 58, Band Neutrophils 1, Lymphocytes (Manual) 28, Monocytes (Manual) 5, Basophils (Manual) 1, Metamyelocytes 2H, Myelocytes 5H, Platelet Estimate NORMAL, Hypochromasia 3+, Anisocytosis 2+, Microcytosis 1+, Anion Gap 8, Glomerular Filtration Rate 32.1L, Blood Urea Nitrogen 23H, Creatinine 1.67H, Sodium Level 140, Potassium Level 4.2, Chloride Level 97L, Carbon Dioxide Level 35H, Calcium Level 8.6L, Aspartate Amino Transf (AST/SGOT) 23, Alanine Aminotransferase (ALT/SGPT) 52, Alkaline Phosphatase 78, Total Bilirubin 0.3, Total Protein 5.9L, Albumin 2.7L, Magnesium Level 2.3, Albumin/Globulin Ratio 0.84L CBC/BMP Laboratory Tests 08/11/16 05:28 Red Blood Count 3.61 L, Mean Corpuscular Volume 80.9, Mean Corpuscular Hemoglobin 21.8 L, Mean Corpuscular Hemoglobin Concent 26.9 L, Red Cell Distribution Width 20.3 H, Calcium Level 8.6 L, Aspartate Amino Transf (AST/SGOT ) 23, Alanine Aminotransferase (ALT/SGPT) 52, Alkaline Phosphatase 78, Total Bilirubin 0.3, Total Protein 5.9 L, Albumin 2.7 L Microbiology Microbiology 08/07/16 Stool Occult Blood (GORDY) - Final, Complete 08/07/16 Respiratory Virus Panel (PCR) (GORDY) - Final, Complete Human Rhinovirus/Enterovirus 08/06/16 Gram Stain - Final, Complete 08/06/16 Sputum Culture - Final, Complete Yeast Like Organism 08/05/16 Urine Culture - Final, Complete Pseudomonas Aeruginosa GME ATTESTATION GME ATTESTATION My preceptor for this patient encounter was physically present in the building during the encounter and was fully available. As needed, all aspects of the patient interview, examination, medical decision making process, and medical care plan development were reviewed and approved by the preceptor. Preceptor is aware and concurs with the plan as stated in the body of this note and will attest to such by his/her cosignature. ATTENDING NOTE I, Seymour Leonard, have both independently examined this patient as well as reviewed the documentation. I have discussed in detail with the resident the findings and plan of treatment as documented in the residents documentation. I will continue to follow the patient and offer further guidance to the patients care as necessary during this hospital stay. KALEY DIAZ August 11, 2016 10:44 SEYMOUR LEONARD MD August 24, 2016 14:20
[2016-08-11] MEDS: SODIUM CHLORIDE 0.9% INJ 10 ML SYR IV PRN ×2 (12:24→18:53)
[2016-08-11] MEDS: FLUoxetine 20 MG CAP PO SCH (13:07)
[2016-08-11 14:00] VITALS: BP 137/64
[2016-08-11] MEDS: ACETAMINOPHEN TAB 650MG DOSE (2X325MG) PO PRN (17:22)
[2016-08-11] MEDS ORDERED: HumaLOG INSULIN (NovoLOG) PER UNIT SC SCH (21:00)
[2016-08-11 22:00] VITALS: BP 137/63
[2016-08-12] MEDS: IPRATROPIUM 0.5MG/ALBUTEROL 2.5MG INH SOL UD 3ML (DUONEB)(J7620) NEB SCH ×6 (03:15→23:12)
[2016-08-12 05:55] LABS: MEAN CORPUSCULAR HEMOGLOBIN 23.4 pg (27.0-33.0); MEAN CORPUSCULAR HGB CONC 28.1 g/dl (32.0-36.5); MEAN CORPUSCULAR VOLUME 83.2 fl (80.0-96.0); PLATELET COUNT, AUTOMATED 148 k/mm3 (150-450); RED CELL DISTRIBUTION WIDTH 19.6 % (11.5-14.5); WHITE BLOOD COUNT 4.6 K/mm3 (4.0-10.0)
[2016-08-12 06:01] VITALS: BP 162/71
[2016-08-12 06:04] LABS: ALBUMIN 2.8 GM/DL (3.2-5.2); ALBUMIN/GLOBULIN RATIO 0.85 (1.00-1.93); BILIRUBIN,TOTAL 0.3 MG/DL (0.2-1.0); CALCIUM LEVEL 9.4 MG/DL (8.8-10.2); CREATININE FOR GFR 1.75 MG/DL (0.55-1.02); GLOMERULAR FILTRATION RATE 30.4 (>39); MAGNESIUM LEVEL 2.4 MG/DL (1.8-2.4); POTASSIUM SERUM 4.3 MEQ/L (3.5-5.1); TOTAL PROTEIN 6.1 GM/DL (6.4-8.2)
[2016-08-12 07:21] LABS: BANDS 2 % (< 11); BASOPHILS 2 % (0-4); NUCLEATED RED BLOOD CELL 1 % (0-0)
[2016-08-12 07:23] LABS: ANISOCYTOSIS 2+
[2016-08-12] MEDS: HumaLOG INSULIN (NovoLOG) PER UNIT SC SCH ×3 (07:23→17:31)
[2016-08-12] MEDS: PROMETHAZINE 25 MG TAB PO SCH ×3 (07:24→17:31)
[2016-08-12 07:27] LABS: HYPOCHROMASIA 2+
[2016-08-12] MEDS: CEPACOL LOZENGE PO PRN ×2 (07:42→12:13)
[2016-08-12 08:30] VITALS: BP 160/60
[2016-08-12] MEDS: SUCRALFATE 1 GM TAB PO SCH ×2 (09:16→21:23)
[2016-08-12] MEDS: FERROUS GLUCONATE 324 MG TAB PO SCH (09:16)
[2016-08-12] MEDS: DOCUSATE SODIUM 100 MG CAP PO SCH ×2 (09:17→21:24)
[2016-08-12] MEDS: OMEPRAZOLE 20 MG CAP PO SCH ×2 (09:17→21:23)
[2016-08-12] MEDS: ONDANSETRON 4 MG TAB (S0181) PO SCH ×4 (09:17→21:24)
[2016-08-12] MEDS: BACLOFEN 10 MG TAB PO SCH ×3 (09:17→21:24)
[2016-08-12] MEDS: levETIRAcetam 250MG TABLET (KEPPRA) PO SCH ×4 (09:18→21:24)
[2016-08-12] MEDS: METOCLOPRAMIDE 10 MG TAB PO SCH ×3 (09:18→21:23)
[2016-08-12] MEDS: LACTULOSE 20 GM/30 ML SYRUP UD PO SCH ×2 (09:19→21:22)
[2016-08-12] MEDS: SPIRONOLACTONE 25 MG TAB PO SCH ×2 (09:19→17:31)
[2016-08-12] MEDS: COLCHICINE 0.6 MG TAB PO SCH (09:19)
[2016-08-12] MEDS: TORSEMIDE 20 MG TAB PO SCH (09:19)
[2016-08-12] MEDS: predniSONE 10 MG TAB PO SCH (09:19)
[2016-08-12] MEDS: ASPIRIN 81 MG ENTERIC TAB PO SCH (09:19)
[2016-08-12] MEDS: LEVEMIR (INSULIN DETEMIR) 1 UNITS/0.01ML SC SCH ×2 (09:20→21:23)
[2016-08-12] MEDS: SODIUM CHLORIDE 0.9% INJ 10 ML SYR IV SCH (09:30)
[2016-08-12] MEDS: PREGABALIN 100 MG CAP (LYRICA) PO SCH ×3 (09:48→21:24)
[2016-08-12] MEDS: FLUoxetine 20 MG CAP PO SCH (11:53)
--- NOTE | 2016-08-12 19:35 | IPNPDOC ---
Date Seen The patient was seen on 08/12/16. Progress Note SUBJECTIVE: Ms. Bang is resting comfortably upon evaluation this evening. She feels as if her breathing has somewhat worsened. Denies chest pain. Continue with breathing treatments. Had extensive discussion about adjusting patient's SS insulin and decided on decreasing patient's prednisone secondary to its effect on blood glucose as well as increasing patient's SS insulin. Patient's FSBS was under 400 this evening. No acute bleeding episodes. Hemoglobin and hematocrit improved after one unit of blood yesterday. Patient continues to report weakness. She would like to know when she can go home. OBJECTIVE PHYSICAL EXAMINATION: VITAL SIGNS: Please see below. GENERAL: Obese female laying in bed upon evaluation this evening, well nourished, well developed, in no apparent distress HEENT: Atraumatic, normocephalic, PERRL, EOMI, oral mucosa appears pink and moist, nasal septum appears midline, nasal cannula in place, cheeks and chin are erythematous CARDIOVASCULAR: Regular rate and rhythm, normal S1 and S2, no murmur, rub, click appreciated RESPIRATORY: Wheezing noted along the left upper lobes, coarse breath sounds throughout ABDOMINAL: Large, round, soft, non-tender, non-distended, bowel sounds appreciated EXTREMITIES: Moving all four extremities appropriately, trace peripheral edema noted on lower extremities bilaterally, peripheral pulses appreciated bilaterally in upper and lower extremities, equal, symmetrical, +2/4 NEUROLOGICAL: CN II-XII appear grossly intact PSYCHOLOGICAL: Mood and affect appear appropriate LABORATORY DATA: Please see below. MICROBIOLOGY: Please see below. DVT prophylaxis ordered?: TEDs and sequentials with knee high compression ASSESSMENT AND PLAN: Ms. Stern is a 71-year-old female who presented with acute on chronic hypoxic respiratory failure. PROBLEMS: 1. Acute on chronic hypoxic respiratory failure: Likely secondary to COPD exacerbation. Prednisone decreased to 5mg BID. On nasal cannula. Remains afebrile with no WBC. Continue to monitor. 2. Iron deficiency anemia: Hemoglobin and hematocrit 9.1 and 32.4, respectively. 3. Diabetes mellitus, uncontrolled: Blood glucose this PM was 348. Levemir 150 units BID. SS has been adjusted. Monitor closely. 4. Diastolic congestive heart failure, left ventricular ejection fraction 60%: On torsemide and spironolactone. Fluid restriction of 2200mL. 7. Acute kidney failure superimposed on chronic kidney disease: Renal function appears at baseline. Negative fluid balance 3402mL. 8. Hypertension: On torsemide and spironolactone. BP 160/71 before administration of anti-hypertensives. 9. Irritable bowel syndrome: Continue patient on Colace, magnesium hydroxide, Senokot, Bisacodyl, and lactulose. 10. Gastroesophageal reflux disease: Continue patient on Prilosec and sucralfate. 11. Depression/anxiety: Continue patient on fluoxetine. 12. Seizure disorder: Continue patient on Keppra. 13. Gout: Continue patient on colchicine. 14. Seasonal allergies: Continue patient on Mucinex. 15. Nausea and vomiting: Continue patient on scopolamine, Zofran, and Reglan. 16. Obstructive sleep apnea: Patient may use home CPAP machine. Monitor with continuous pulse oximetry. 97% on Venturi mask. 17. Chronic low back pain: Continue patient on Lyrica and baclofen. DISPOSITION: Admitted to [address] [place] [address]. Continue managing her medical conditions. Patient and family services trying to obtain Trilogy for patient's breathing. Physical therapy held secondary to patient's anemia. Will reattempt in the AM. Potential discharge home once clinical picture improves. VS, I&O, 24H, [facility] Vital Signs/I&O Vital Signs Date Time Temp Pulse Resp B/P (MAP) Pulse Ox O2 Delivery O2 Flow Rate FiO2 08/12/16 10:51 Room Air 08/12/16 08:30 97.8 98 24 160/60 (93) 89 08/12/16 06:01 2.0 08/11/16 11:29 28 I&O- Last 24 Hours up to 6 AM 08/12/16 06:00 Intake Total 2278 ml Output Total 5450 ml Balance -3172 ml Laboratory Data 24H LABS Laboratory Tests 2 08/11/16 19:45: Bedside Glucose (Misc Panel) 537*H 08/12/16 05:35: Neutrophils 60, Band Neutrophils 2, Lymphocytes (Manual) 27, Monocytes (Manual) 6, Basophils (Manual) 2, Metamyelocytes 1H, Myelocytes 1H, Nucleated Red Blood Cells 1H, Atypical Lymphocytes 1, Platelet Estimate NORMAL, Hypochromasia 2+, Anisocytosis 2+, Anion Gap 6L, Glomerular Filtration Rate 30.4L, Blood Urea Nitrogen 28H, Creatinine 1.75H, Sodium Level 138, Potassium Level 4.3, Chloride Level 95L, Carbon Dioxide Level 37H, Calcium Level 9.4, Aspartate Amino Transf ( AST/SGOT) 24, Alanine Aminotransferase (ALT/SGPT) 56, Alkaline Phosphatase 75, Total Bilirubin 0.3, Total Protein 6.1L, Albumin 2.8L, Magnesium Level 2.4, Albumin/Globulin Ratio 0.85L 08/12/16 11:37: Bedside Glucose (Misc Panel) 412H 08/12/16 17:14: Bedside Glucose (Misc Panel) 347H CBC/BMP Laboratory Tests 08/12/16 05:35 Red Blood Count 3.90 L, Mean Corpuscular Volume 83.2, Mean Corpuscular Hemoglobin 23.4 L, Mean Corpuscular Hemoglobin Concent 28.1 L, Red Cell Distribution Width 19.6 H, Calcium Level 9.4, Aspartate Amino Transf (AST/SGOT) 24, Alanine Aminotransferase (ALT/SGPT) 56, Alkaline Phosphatase 75, Total Bilirubin 0.3, Total Protein 6.1 L, Albumin 2.8 L Microbiology Microbiology 08/07/16 Stool Occult Blood (GORDY) - Final, Complete 08/07/16 Respiratory Virus Panel (PCR) (GORDY) - Final, Complete Human Rhinovirus/Enterovirus 08/06/16 Gram Stain - Final, Complete 08/06/16 Sputum Culture - Final, Complete Yeast Like Organism 08/05/16 Urine Culture - Final, Complete Pseudomonas Aeruginosa GME ATTESTATION GME ATTESTATION My preceptor for this patient encounter was physically present in the building during the encounter and was fully available. As needed, all aspects of the patient interview, examination, medical decision making process, and medical care plan development were reviewed and approved by the preceptor. Preceptor is aware and concurs with the plan as stated in the body of this note and will attest to such by his/her cosignature. ATTENDING NOTE I, Seymour Waite, have both independently examined this patient as well as reviewed the documentation. I have discussed in detail with the resident the findings and plan of treatment as documented in the residents documentation. I will continue to follow the patient and offer further guidance to the patients care as necessary during this hospital stay. KALEY DIAZ August 12, 2016 18:54 SEYMOUR WAITE MD August 24, 2016 14:16
[2016-08-12] MEDS ORDERED: HumaLOG INSULIN (NovoLOG) PER UNIT SC SCH (21:00)
[2016-08-12] MEDS: predniSONE 5 MG TAB PO SCH (21:24)
[2016-08-12 22:00] VITALS: BP 142/72
[2016-08-13] MEDS: ACETAMINOPHEN TAB 650MG DOSE (2X325MG) PO PRN ×2 (02:04→09:56)
[2016-08-13] MEDS: CEPACOL LOZENGE PO PRN (02:04)
[2016-08-13] MEDS: IPRATROPIUM 0.5MG/ALBUTEROL 2.5MG INH SOL UD 3ML (DUONEB)(J7620) NEB SCH ×6 (03:27→23:39)
[2016-08-13 06:00] VITALS: BP 140/82
[2016-08-13] MEDS: HumaLOG INSULIN (NovoLOG) PER UNIT SC SCH ×4 (08:34→21:09)
[2016-08-13] MEDS: PROMETHAZINE 25 MG TAB PO SCH ×3 (08:34→17:58)
[2016-08-13 08:36] VITALS: BP 135/60
[2016-08-13] MEDS: SODIUM CHLORIDE 0.9% INJ 10 ML SYR IV SCH (09:00)
[2016-08-13] MEDS: LACTULOSE 20 GM/30 ML SYRUP UD PO SCH ×2 (09:54→21:07)
[2016-08-13] MEDS: predniSONE 5 MG TAB PO SCH ×2 (09:56→21:08)
[2016-08-13] MEDS: TORSEMIDE 20 MG TAB PO SCH (09:57)
[2016-08-13] MEDS: COLCHICINE 0.6 MG TAB PO SCH (09:58)
[2016-08-13] MEDS: BACLOFEN 10 MG TAB PO SCH ×3 (09:59→21:08)
[2016-08-13] MEDS: levETIRAcetam 250MG TABLET (KEPPRA) PO SCH ×4 (10:00→21:07)
[2016-08-13] MEDS: ONDANSETRON 4 MG TAB (S0181) PO SCH ×4 (10:01→21:08)
[2016-08-13] MEDS: METOCLOPRAMIDE 10 MG TAB PO SCH ×3 (10:01→21:08)
[2016-08-13] MEDS: SPIRONOLACTONE 25 MG TAB PO SCH ×2 (10:02→16:13)
[2016-08-13] MEDS: SUCRALFATE 1 GM TAB PO SCH ×2 (10:02→21:08)
[2016-08-13] MEDS: ASPIRIN 81 MG ENTERIC TAB PO SCH (10:03)
[2016-08-13] MEDS: OMEPRAZOLE 20 MG CAP PO SCH ×2 (10:03→21:08)
[2016-08-13] MEDS: FERROUS GLUCONATE 324 MG TAB PO SCH (10:03)
[2016-08-13] MEDS: DOCUSATE SODIUM 100 MG CAP PO SCH ×2 (10:04→21:08)
[2016-08-13] MEDS: LEVEMIR (INSULIN DETEMIR) 1 UNITS/0.01ML SC SCH ×2 (10:06→21:08)
[2016-08-13 10:21] VITALS: BP 135/60
[2016-08-13] MEDS: PREGABALIN 100 MG CAP (LYRICA) PO SCH ×3 (10:33→21:08)
[2016-08-13 11:27] LABS: MEAN CORPUSCULAR HEMOGLOBIN 23.2 pg (27.0-33.0); MEAN CORPUSCULAR HGB CONC 28.5 g/dl (32.0-36.5); MEAN CORPUSCULAR VOLUME 81.2 fl (80.0-96.0); RED CELL DISTRIBUTION WIDTH 20.1 % (11.5-14.5); WHITE BLOOD COUNT 6.1 K/mm3 (4.0-10.0)
[2016-08-13 11:56] LABS: CALCIUM LEVEL 9.2 MG/DL (8.8-10.2); CREATININE FOR GFR 1.88 MG/DL (0.55-1.02); POTASSIUM SERUM 4.1 MEQ/L (3.5-5.1)
[2016-08-13] MEDS: FLUoxetine 20 MG CAP PO SCH (12:12)
[2016-08-13 14:00] VITALS: BP 138/68
--- NOTE | 2016-08-13 15:49 | IPNPDOC ---
Date Seen The patient was seen on 08/13/16. Progress Note SUBJECTIVE: Ms. Bang is a 71-year-old female evaluated bedside this morning. She is oxygenating at room air. She is sitting on the edge of the bed getting ready to use bedside commode. She reports right shoulder pain. States that she feels a little worse compared to yesterday. OBJECTIVE PHYSICAL EXAMINATION: VITAL SIGNS: Please see below. GENERAL: Obese female sitting on the edge of the bed upon evaluation this morning, oxygenating on room air, no apparent distress HEENT: Atraumatic, normocephalic, PERRL, EOMI, oral mucosa appears pink and moist, edentulous CARDIOVASCULAR: Regular rate and rhythm, normal S1 and S2, no murmur, rub, click appreciated RESPIRATORY: Coarse breath sounds throughout, mild wheeze appreciated on the left ABDOMINAL: Large, round, soft, nontender, nondistended, bowel sounds appreciated EXTREMITIES: +1 pitting edema noted on the lower extremities bilaterally, peripheral pulses appreciated bilaterally in upper and lower extremities, equal , symmetrical, +2/4, restriction in right shoulder abduction NEUROLOGICAL: Cranial nerves II through XII grossly intact PSYCHOLOGICAL: Mood and affect appear appropriate LABORATORY DATA: Please see below. MICROBIOLOGY: Please see below. DVT prophylaxis ordered?: TEDs and sequentials with knee high compression ASSESSMENT AND PLAN: Ms. Stern is a 71-year-old female who presented with acute on chronic hypoxic respiratory failure. PROBLEMS: 1. Acute on chronic hypoxic respiratory failure: Likely secondary to COPD exacerbation. Prednisone decreased to 5mg BID. Oxygenating on room air during evaluation. Remains afebrile with no WBC. Continue to monitor. 2. Right shoulder pain: Apply heating pad. Monitor for symptomatic relief. 3. Iron deficiency anemia: Hemoglobin and hematocrit 9.2 and 32.2, respectively. 3. Diabetes mellitus, uncontrolled: Blood glucose this AM was 394. Levemir 150 units BID. SS has been adjusted again. Monitor closely. 4. Diastolic congestive heart failure, left ventricular ejection fraction 60%: On torsemide and spironolactone. Fluid restriction of 2200mL. 7. Acute kidney failure superimposed on chronic kidney disease: Slight increase in creatinine 1.88. Negative fluid balance 1580mL. 8. Hypertension: On torsemide and spironolactone. BP 140/82. 9. Irritable bowel syndrome: Continue patient on Colace, magnesium hydroxide, Senokot, Bisacodyl, and lactulose. 10. Gastroesophageal reflux disease: Continue patient on Prilosec and sucralfate. 11. Depression/anxiety: Continue patient on fluoxetine. 12. Seizure disorder: Continue patient on Keppra. 13. Gout: Continue patient on colchicine. 14. Seasonal allergies: Continue patient on Mucinex. 15. Nausea and vomiting: Continue patient on scopolamine, Zofran, and Reglan. 16. Obstructive sleep apnea: Patient may use home CPAP machine. Monitor with continuous pulse oximetry. 94% on room air. 17. Chronic low back pain: Continue patient on Lyrica and baclofen. DISPOSITION: Admitted to [address] [place] [address]. Continue managing her medical conditions. Patient and family services trying to obtain Trilogy for patient's breathing. Patient continues to refuse physical therapy. Physical therapy have recommended the patient is set for discharge when medically cleared. Potential discharge home once clinical picture improves. VS, I&O, 24H, Fishbone Vital Signs/I&O Vital Signs Date Time Temp Pulse Resp B/P (MAP) Pulse Ox O2 Delivery O2 Flow Rate FiO2 08/13/16 15:06 90 Room Air 2.0 08/13/16 10:21 87 16 135/60 08/13/16 08:36 97.8 08/11/16 11:29 28 I&O- Last 24 Hours up to 6 AM 08/13/16 06:00 Intake Total 1730 ml Output Total 3600 ml Balance -1870 ml Laboratory Data 24H LABS Laboratory Tests 2 08/12/16 17:14: Bedside Glucose (Misc Panel) 347H 08/12/16 21:14: Bedside Glucose (Misc Panel) 384H 08/13/16 06:52: Bedside Glucose (Misc Panel) 396H 08/13/16 10:34: Anion Gap 10, Glomerular Filtration Rate 28.0L, Blood Urea Nitrogen 36H, Creatinine 1.88H, Sodium Level 141, Potassium Level 4.1, Chloride Level 98, Carbon Dioxide Level 33H, Calcium Level 9.2 08/13/16 11:22: Bedside Glucose (Misc Panel) 358H CBC/BMP Laboratory Tests 08/13/16 10:34 Red Blood Count 3.97 L, Mean Corpuscular Volume 81.2, Mean Corpuscular Hemoglobin 23.2 L, Mean Corpuscular Hemoglobin Concent 28.5 L, Red Cell Distribution Width 20.1 H, Calcium Level 9.2 Microbiology Microbiology 08/07/16 Stool Occult Blood (GORDY) - Final, Complete 08/07/16 Respiratory Virus Panel (PCR) (GORDY) - Final, Complete Human Rhinovirus/Enterovirus 08/06/16 Gram Stain - Final, Complete 08/06/16 Sputum Culture - Final, Complete Yeast Like Organism 08/05/16 Urine Culture - Final, Complete Pseudomonas Aeruginosa GME ATTESTATION GME ATTESTATION My preceptor for this patient encounter was physically present in the building during the encounter and was fully available. As needed, all aspects of the patient interview, examination, medical decision making process, and medical care plan development were reviewed and approved by the preceptor. Preceptor is aware and concurs with the plan as stated in the body of this note and will attest to such by his/her cosignature. ATTENDING NOTE I, Seymour Waite, have both independently examined this patient as well as reviewed the documentation. I have discussed in detail with the resident the findings and plan of treatment as documented in the residents documentation. I will continue to follow the patient and offer further guidance to the patients care as necessary during this hospital stay. KALEY DIAZ August 13, 2016 15:49 SEYMOUR WAITE MD August 24, 2016 14:17
[2016-08-13 22:00] VITALS: BP 176/84
[2016-08-14] MEDS: IPRATROPIUM 0.5MG/ALBUTEROL 2.5MG INH SOL UD 3ML (DUONEB)(J7620) NEB SCH ×6 (02:44→23:43)
[2016-08-14 06:00] VITALS: BP 148/64
[2016-08-14 06:15] LABS: MEAN CORPUSCULAR HEMOGLOBIN 23.5 pg (27.0-33.0); MEAN CORPUSCULAR HGB CONC 28.4 g/dl (32.0-36.5); MEAN CORPUSCULAR VOLUME 82.9 fl (80.0-96.0); WHITE BLOOD COUNT 5.7 K/mm3 (4.0-10.0)
[2016-08-14] MEDS: PROMETHAZINE 25 MG TAB PO SCH ×3 (07:30→18:25)
[2016-08-14 09:56] LABS: CALCIUM LEVEL 8.8 MG/DL (8.8-10.2); CREATININE FOR GFR 1.66 MG/DL (0.55-1.02); GLOMERULAR FILTRATION RATE 32.3 (>39); POTASSIUM SERUM 4.2 MEQ/L (3.5-5.1)
[2016-08-14] MEDS: LEVEMIR (INSULIN DETEMIR) 1 UNITS/0.01ML SC SCH ×2 (11:31→21:00)
[2016-08-14] MEDS: HumaLOG INSULIN (NovoLOG) PER UNIT SC SCH ×4 (11:31→21:00)
[2016-08-14] MEDS: PREGABALIN 100 MG CAP (LYRICA) PO SCH ×3 (11:32→21:36)
[2016-08-14] MEDS: COLCHICINE 0.6 MG TAB PO SCH (11:32)
[2016-08-14] MEDS: predniSONE 5 MG TAB PO SCH ×2 (11:32→21:36)
[2016-08-14] MEDS: FERROUS GLUCONATE 324 MG TAB PO SCH (11:32)
[2016-08-14] MEDS: LACTULOSE 20 GM/30 ML SYRUP UD PO SCH ×2 (11:32→21:35)
[2016-08-14] MEDS: ONDANSETRON 4 MG TAB (S0181) PO SCH ×4 (11:32→21:36)
[2016-08-14] MEDS: SODIUM CHLORIDE 0.9% INJ 10 ML SYR IV SCH (11:32)
[2016-08-14] MEDS: levETIRAcetam 250MG TABLET (KEPPRA) PO SCH ×4 (11:32→21:35)
[2016-08-14] MEDS: DOCUSATE SODIUM 100 MG CAP PO SCH ×2 (11:32→21:36)
[2016-08-14] MEDS: ASPIRIN 81 MG ENTERIC TAB PO SCH (11:33)
[2016-08-14] MEDS: FLUoxetine 20 MG CAP PO SCH (11:33)
[2016-08-14] MEDS: SUCRALFATE 1 GM TAB PO SCH ×2 (11:33→21:36)
[2016-08-14] MEDS: OMEPRAZOLE 20 MG CAP PO SCH ×2 (11:33→21:36)
[2016-08-14] MEDS: TORSEMIDE 20 MG TAB PO SCH (11:33)
[2016-08-14] MEDS: METOCLOPRAMIDE 10 MG TAB PO SCH ×3 (11:33→21:36)
[2016-08-14] MEDS: SPIRONOLACTONE 25 MG TAB PO SCH ×2 (11:33→18:25)
[2016-08-14] MEDS: BACLOFEN 10 MG TAB PO SCH (11:33)
--- NOTE | 2016-08-14 11:58 | REP ---
RIGHT SHOULDER: Limited single portable view of the right shoulder is performed and demonstrates no definite fracture or dislocation. Signed by Sami Mesa MD 08/14/2016 07:47 P
[2016-08-14] MEDS ORDERED: SALIVA SUBSTITUTE(MOUTHKOTE) BTL MT PRN (13:30)
--- NOTE | 2016-08-14 13:33 | IPNPDOC ---
Date Seen The patient was seen on 08/14/16. Progress Note SUBJECTIVE: Ms. Stern is a 71-year-old female sitting chair side upon evaluation this morning. Not on oxygen at time of evaluation. She is finishing her lunch at time of evaluation. She continues to report persistent cough and dry throat. She reports that she is expectorating more phlegm. Reported to patient that right shoulder x-ray was negative for fracture or dislocation. Continue with heating pad. Patient continues to require about when she can go home. Adjusted patient's consistent carbohydrate diet to incorporate 2357 calories per day, soft diet, and a 2200 mL fluid restriction. OBJECTIVE PHYSICAL EXAMINATION: VITAL SIGNS: Please see below. GENERAL: Obese female sitting chair side upon evaluation this morning , well-nourished, well-developed, in no apparent distress HEENT: Atraumatic, normocephalic, PERRL, EOMI, oral mucosa appears pink and somewhat dry, edentulous CARDIOVASCULAR: Regular rate and rhythm, normal S1 and S2, no murmur, rub, click appreciated RESPIRATORY: Coarse breath sounds throughout, wheezing significantly improved ABDOMINAL: Round, nontender, nondistended, bowel sounds diminished EXTREMITIES: Peripheral pulses appreciated bilaterally in upper and lower extremities, equal, symmetrical, +2/4, trace pitting edema noted on bilateral lower extremities NEUROLOGICAL: Cranial nerves II through XII appear grossly intact PSYCHOLOGICAL: Mood and affect appear appropriate LABORATORY DATA: Please see below. MICROBIOLOGY: Please see below. IMAGING: Right shoulder x-ray No acute fracture or dislocation DVT prophylaxis ordered?: TEDs and sequentials with knee high compression ASSESSMENT AND PLAN: Ms. Stern is a 71-year-old female who presented with acute on chronic hypoxic respiratory failure. PROBLEMS: 1. Acute on chronic hypoxic respiratory failure: Likely secondary to COPD exacerbation. Continue with prednisone 5 mg twice a day and DuoNeb's. Remains afebrile with no WBC. Appropriate oxygenation. 2. Right shoulder pain: Heating pad for symptomatic relief. Shoulder x-ray is negative. Could consider topical lidocaine. 3. Cough with dry mouth: Patient remains on Cepacol. Have added artificial saliva. 4. Diastolic congestive heart failure, left ventricular ejection fraction 60%: On torsemide and spironolactone. Fluid restriction of 2200mL. 5. Diabetes mellitus, uncontrolled: Blood glucose this AM was 388. Levemir 150 units BID. SS has been adjusted again. Monitor closely. 6. Acute kidney failure superimposed on chronic kidney disease: Appears at baseline. Negative fluid balance overnight. Continue to monitor with BMP and I/ Os. 7. Iron deficiency anemia: Continue with iron supplementation. 8. Hypertension: On torsemide and spironolactone. BP 148/64. 9. Irritable bowel syndrome: Continue patient on Colace, magnesium hydroxide, Senokot, Bisacodyl, and lactulose. 10. Gastroesophageal reflux disease: Continue patient on Prilosec and sucralfate. 11. Depression/anxiety: Continue patient on fluoxetine. 12. Seizure disorder: Continue patient on Keppra. 13. Gout: Continue patient on colchicine. 14. Seasonal allergies: Continue patient on Mucinex. 15. Nausea and vomiting: Continue patient on scopolamine, Zofran, and Reglan. 16. Obstructive sleep apnea: Patient may use home CPAP machine. Monitor with continuous pulse oximetry. 17. Chronic low back pain: Continue patient on Lyrica. Discontinued baclofen as patient has remained drowsy. DISPOSITION: Admitted to [address] [place] [address]. Continue managing her medical conditions. Patient and family services trying to obtain Trilogy for patient's breathing. Potential discharge home once clinical picture improves. VS, I&O, 24H, [facility] Vital Signs/I&O Vital Signs Date Time Temp Pulse Resp B/P (MAP) Pulse Ox O2 Delivery O2 Flow Rate FiO2 08/14/16 11:17 95 Nasal Cannula 2.0 08/14/16 06:00 96.9 81 12 148/64 (92) 08/11/16 11:29 28 I&O- Last 24 Hours up to 6 AM 08/14/16 06:00 Intake Total 2570 ml Output Total 2400 ml Balance 170 ml Laboratory Data 24H LABS Laboratory Tests 2 08/13/16 17:06: Bedside Glucose (Misc Panel) 299H 08/13/16 21:01: Bedside Glucose (Misc Panel) 419H 08/14/16 09:03: Anion Gap 8, Glomerular Filtration Rate 32.3L, Blood Urea Nitrogen 39H, Creatinine 1.66H, Sodium Level 144, Potassium Level 4.2, Chloride Level 101, Carbon Dioxide Level 35H, Calcium Level 8.8 08/14/16 12:02: Bedside Glucose (Misc Panel) 442H CBC/BMP Laboratory Tests 08/14/16 05:34 Red Blood Count 3.82 L, Mean Corpuscular Volume 82.9, Mean Corpuscular Hemoglobin 23.5 L, Mean Corpuscular Hemoglobin Concent 28.4 L, Red Cell Distribution Width 20.0 H 08/14/16 09:03 Calcium Level 8.8 Microbiology Microbiology 08/07/16 Stool Occult Blood (GORDY) - Final, Complete 08/07/16 Respiratory Virus Panel (PCR) (GORDY) - Final, Complete Human Rhinovirus/Enterovirus 08/06/16 Gram Stain - Final, Complete 08/06/16 Sputum Culture - Final, Complete Yeast Like Organism 08/05/16 Urine Culture - Final, Complete Pseudomonas Aeruginosa GME ATTESTATION GME ATTESTATION My preceptor for this patient encounter was physically present in the building during the encounter and was fully available. As needed, all aspects of the patient interview, examination, medical decision making process, and medical care plan development were reviewed and approved by the preceptor. Preceptor is aware and concurs with the plan as stated in the body of this note and will attest to such by his/her cosignature. ATTENDING NOTE I, Seymour Leonard, have both independently examined this patient as well as reviewed the documentation. I have discussed in detail with the resident the findings and plan of treatment as documented in the residents documentation. I will continue to follow the patient and offer further guidance to the patients care as necessary during this hospital stay. KALEY DIAZ August 14, 2016 13:33 SEYMOUR LEONARD MD August 24, 2016 14:18
[2016-08-14] MEDS: ACETAMINOPHEN TAB 650MG DOSE (2X325MG) PO PRN (21:35)
[2016-08-14 22:00] VITALS: BP 141/72
[2016-08-15] MEDS: IPRATROPIUM 0.5MG/ALBUTEROL 2.5MG INH SOL UD 3ML (DUONEB)(J7620) NEB SCH ×5 (03:26→20:31)
[2016-08-15 05:50] LABS: MEAN CORPUSCULAR HEMOGLOBIN 23.1 pg (27.0-33.0); MEAN CORPUSCULAR HGB CONC 28.7 g/dl (32.0-36.5); MEAN CORPUSCULAR VOLUME 80.6 fl (80.0-96.0); RED CELL DISTRIBUTION WIDTH 20.2 % (11.5-14.5); WHITE BLOOD COUNT 6.2 K/mm3 (4.0-10.0)
[2016-08-15 06:00] VITALS: BP 145/67
[2016-08-15 06:26] LABS: CALCIUM LEVEL 8.7 MG/DL (8.8-10.2); CREATININE FOR GFR 1.48 MG/DL (0.55-1.02); GLOMERULAR FILTRATION RATE 36.9 (>39); POTASSIUM SERUM 3.9 MEQ/L (3.5-5.1)
[2016-08-15] MEDS: LACTULOSE 20 GM/30 ML SYRUP UD PO SCH ×2 (07:50→21:07)
[2016-08-15] MEDS: OMEPRAZOLE 20 MG CAP PO SCH ×2 (07:51→21:07)
[2016-08-15] MEDS: PROMETHAZINE 25 MG TAB PO SCH ×3 (07:51→17:39)
[2016-08-15] MEDS: ONDANSETRON 4 MG TAB (S0181) PO SCH ×4 (07:51→21:07)
[2016-08-15] MEDS: TORSEMIDE 20 MG TAB PO SCH (07:51)
[2016-08-15] MEDS: ACETAMINOPHEN TAB 650MG DOSE (2X325MG) PO PRN ×2 (07:52→17:40)
[2016-08-15] MEDS: levETIRAcetam 250MG TABLET (KEPPRA) PO SCH ×4 (07:53→21:07)
[2016-08-15] MEDS: COLCHICINE 0.6 MG TAB PO SCH (07:53)
[2016-08-15] MEDS: PREGABALIN 100 MG CAP (LYRICA) PO SCH ×3 (07:53→21:07)
[2016-08-15] MEDS: predniSONE 5 MG TAB PO SCH (07:53)
[2016-08-15] MEDS: SUCRALFATE 1 GM TAB PO SCH ×2 (07:53→21:07)
[2016-08-15] MEDS: FERROUS GLUCONATE 324 MG TAB PO SCH (07:53)
[2016-08-15] MEDS: DOCUSATE SODIUM 100 MG CAP PO SCH ×2 (07:54→21:07)
[2016-08-15] MEDS: SPIRONOLACTONE 25 MG TAB PO SCH ×2 (07:54→17:39)
[2016-08-15] MEDS: METOCLOPRAMIDE 10 MG TAB PO SCH ×3 (07:54→21:07)
[2016-08-15] MEDS: ASPIRIN 81 MG ENTERIC TAB PO SCH (07:54)
[2016-08-15] MEDS: HumaLOG INSULIN (NovoLOG) PER UNIT SC SCH ×4 (07:55→21:00)
[2016-08-15] MEDS: SODIUM CHLORIDE 0.9% INJ 10 ML SYR IV SCH (07:56)
[2016-08-15] MEDS: LEVEMIR (INSULIN DETEMIR) 1 UNITS/0.01ML SC SCH ×2 (09:45→21:08)
--- NOTE | 2016-08-15 10:12 | IPNPDOC ---
Text Note Date of Service The patient was seen on 08/15/16. NOTE Subjective: Patient is a 71 year old female with a PMHx of COPD on Oxygen, Iron deficiency, HTN, IDDM2, MATT on CPAP, Seizure disorder, Paralyzed R hemidiaphragm , Diastolic CHF, Hx of DVT s/p IVC Filter, IBS, Depression, Migraines and GERD. She presented to the ER with SOB and was found to have a COPD exacerbation. She received a loading dose of solumedrol initially and was continued with prednisone PO. Patient was seen and examined at the bedside. She reports some shoulder pain that she continues to use hot compresses for. She notes her breathing is doing better. Objective: Vitals (See below) General: Lying in bed, no acute distress, comfortable, AAOx3 HEENT: NC, AT CVS: RRR, +S1S2 Lungs: Fair air entry b/l, no appreciable wheezing this morning Abdomen: Soft, ND, NT, +BSx4, Obese Extremities: +PPx4, Trace pitting alyssa, - Calf tenderness Assessment and plan: 1. Acute on chronic hypoxic respiratory failure - likely 2/2 acute COPD exacerbation - Presented with SOB / Wheezing - Physical reveals improvement in aeration and wheezing - s/p Solumedrol - c/w inhaled therapy - c/w Prednisone taper 2. IDDM2 - Patient is a difficult to control diabetic when steroids are intiated - Her ISS has been adjusted on several occasions - c/w Current ISS and Levemir 3. Right shoulder pain - Imaging without evidence - c/w Topical patch and heating pads 4. Diastolic CHF - EF of 60% - c/w Fluid restrictions - c/w Torsemide and Spironolactone 5. CKD - appears baseline - will monitor Ins/outs 6. Normocytic anemia - likely 2/2 FRED - FOBT positive - s/p 1 unit PRBC transfusion - Will monitor H&H - Plans for outpatient colonoscopy - c/w ferrous sulfate 7. HTN - c/w Tosemide and spironolactone 8. IBS - c/w bowel regimen 9. Depression / Anxiety - c/w fluoxetine 10. Gout - c/w Colchicine 11. Seasonal allergies - c/w Mucinex 12. Seizure disorder - c/w Keppra 13. MATT - c/w CPAP 14. Chronic low back pain - s/p Baclofen (re: Drowsiness) 15. GERD - c/w Sucralfate and Omeprazole 16. DVT prophylaxis - c/w SCDs (re: anemia) Disposition: - PFS will establish Trilogy for the patient Lola ORTIZ, I+O Lola ORTIZ I+O Laboratory Tests 08/15/16 05:31 Red Blood Count 3.76 L, Mean Corpuscular Volume 80.6, Mean Corpuscular Hemoglobin 23.1 L, Mean Corpuscular Hemoglobin Concent 28.7 L, Red Cell Distribution Width 20.2 H, Calcium Level 8.7 L Vital Signs Date Time Temp Pulse Resp B/P (MAP) Pulse Ox O2 Delivery O2 Flow Rate FiO2 08/15/16 06:00 96.5 86 18 145/67 (93) 95 Room Air 08/14/16 22:01 2.0 08/11/16 11:29 28 I&O- Last 24 Hours up to 6 AM 08/15/16 05:59 Intake Total 930 ml Output Total 2050 ml Balance -1120 ml GURVINDER LEONARD MD August 15, 2016 10:12
[2016-08-15 12:00] VITALS: BP 148/71
[2016-08-15] MEDS: FLUoxetine 20 MG CAP PO SCH (12:37)
[2016-08-15 22:00] VITALS: BP 141/64
[2016-08-16] MEDS: IPRATROPIUM 0.5MG/ALBUTEROL 2.5MG INH SOL UD 3ML (DUONEB)(J7620) NEB SCH ×7 (00:04→22:51)
[2016-08-16 05:47] LABS: MEAN CORPUSCULAR HEMOGLOBIN 22.2 pg (27.0-33.0); MEAN CORPUSCULAR HGB CONC 26.9 g/dl (32.0-36.5); MEAN CORPUSCULAR VOLUME 82.4 fl (80.0-96.0); RED CELL DISTRIBUTION WIDTH 20.2 % (11.5-14.5); WHITE BLOOD COUNT 6.6 K/mm3 (4.0-10.0)
[2016-08-16 06:00] VITALS: BP 161/70
[2016-08-16 06:19] LABS: CALCIUM LEVEL 8.4 MG/DL (8.8-10.2); CREATININE FOR GFR 1.45 MG/DL (0.55-1.02); GLOMERULAR FILTRATION RATE 37.8 (>39); POTASSIUM SERUM 3.8 MEQ/L (3.5-5.1)
[2016-08-16] MEDS: SODIUM CHLORIDE 0.9% INJ 10 ML SYR IV SCH (07:39)
[2016-08-16] MEDS: LEVEMIR (INSULIN DETEMIR) 1 UNITS/0.01ML SC SCH ×2 (07:40→21:53)
[2016-08-16] MEDS: COLCHICINE 0.6 MG TAB PO SCH (07:41)
[2016-08-16] MEDS: PREGABALIN 100 MG CAP (LYRICA) PO SCH ×3 (07:41→21:52)
[2016-08-16] MEDS: SPIRONOLACTONE 25 MG TAB PO SCH ×2 (07:41→17:29)
[2016-08-16] MEDS: HumaLOG INSULIN (NovoLOG) PER UNIT SC SCH ×4 (07:41→21:54)
[2016-08-16] MEDS: DOCUSATE SODIUM 100 MG CAP PO SCH ×2 (07:42→21:52)
[2016-08-16] MEDS: OMEPRAZOLE 20 MG CAP PO SCH ×2 (07:42→21:52)
[2016-08-16] MEDS: ACETAMINOPHEN TAB 650MG DOSE (2X325MG) PO PRN ×2 (07:42→15:53)
[2016-08-16] MEDS: ONDANSETRON 4 MG TAB (S0181) PO SCH ×4 (07:43→21:52)
[2016-08-16] MEDS: levETIRAcetam 250MG TABLET (KEPPRA) PO SCH ×4 (07:43→21:52)
[2016-08-16] MEDS: METOCLOPRAMIDE 10 MG TAB PO SCH ×3 (07:43→21:52)
[2016-08-16] MEDS: TORSEMIDE 20 MG TAB PO SCH (07:43)
[2016-08-16] MEDS: LACTULOSE 20 GM/30 ML SYRUP UD PO SCH ×2 (07:44→21:51)
[2016-08-16] MEDS: SUCRALFATE 1 GM TAB PO SCH ×2 (07:44→21:52)
[2016-08-16] MEDS: ASPIRIN 81 MG ENTERIC TAB PO SCH (07:44)
[2016-08-16] MEDS: FERROUS GLUCONATE 324 MG TAB PO SCH (07:44)
[2016-08-16] MEDS: PROMETHAZINE 25 MG TAB PO SCH ×3 (07:44→15:53)
[2016-08-16] MEDS ORDERED: predniSONE 5 MG TAB PO SCH (09:00)
--- NOTE | 2016-08-16 10:15 | IPNPDOC ---
Text Note Date of Service The patient was seen on 08/16/16. NOTE Subjective: Patient is a 71 year old female with a PMHx of COPD on Oxygen, Iron deficiency, HTN, IDDM2, MATT on CPAP, Seizure disorder, Paralyzed R hemidiaphragm , Diastolic CHF, Hx of DVT s/p IVC Filter, IBS, Depression, Migraines and GERD. She presented to the ER with SOB and was found to have a COPD exacerbation. She received a loading dose of solumedrol initially and was continued with prednisone PO. Patient was seen and examined at the bedside. She notes her breathing is improving. No other complaints today. Objective: Vitals (See below) General: Lying in bed, no acute distress, comfortable, AAOx3 HEENT: NC, AT CVS: RRR, +S1S2 Lungs: Fair air entry b/l, no appreciable wheezing this morning Abdomen: Soft, ND, NT, +BSx4, Obese Extremities: +PPx4, Trace pitting alyssa, - Calf tenderness Assessment and plan: 1. Acute on chronic hypoxic respiratory failure - likely 2/2 acute COPD exacerbation - Presented with SOB / Wheezing - Physical reveals improvement in aeration and wheezing - s/p Solumedrol - c/w inhaled therapy - c/w Prednisone; will keep on existing dose for now 2. IDDM2 - Patient is a difficult to control diabetic when steroids are initiated - Her ISS has been adjusted on several occasions - c/w Current ISS and Levemir 3. Right shoulder pain - Imaging without evidence - c/w Topical patch and heating pads 4. Diastolic CHF - EF of 60% - c/w Fluid restrictions - c/w Torsemide and Spironolactone 5. CKD - appears baseline - will monitor Ins/outs 6. Normocytic anemia - likely 2/2 FRED - FOBT positive - s/p 1 unit PRBC transfusion - Hg has continued to trend down - Will give 1 u PRBC transfusion today - Will consult Dr. Hoskins for possible colonoscopy - c/w ferrous sulfate 7. HTN - c/w Torsemide and spironolactone 8. IBS - c/w bowel regimen 9. Depression / Anxiety - c/w fluoxetine 10. Gout - c/w Colchicine 11. Seasonal allergies - c/w Mucinex 12. Seizure disorder - c/w Keppra 13. MATT - c/w CPAP 14. Chronic low back pain - s/p Baclofen (re: Drowsiness) 15. GERD - c/w Sucralfate and Omeprazole 16. DVT prophylaxis - c/w SCDs (re: anemia) Disposition: - Trilogy vent has been established for the patient as an outpatient - Breathing has been improving with current dose of steroids - Continue existing insulin therapy until off prednisone; even as outpatient - Hg trending down; will transfuse - Will consult Dr. Hoskins for possible colonoscopy VS,Lola, I+O VS, Lola, I+O Laboratory Tests 08/16/16 05:25 Red Blood Count 3.77 L, Mean Corpuscular Volume 82.4, Mean Corpuscular Hemoglobin 22.2 L, Mean Corpuscular Hemoglobin Concent 26.9 L, Red Cell Distribution Width 20.2 H, Calcium Level 8.4 L Vital Signs Date Time Temp Pulse Resp B/P (MAP) Pulse Ox O2 Delivery O2 Flow Rate FiO2 08/16/16 06:00 96.0 91 18 161/70 (100) 90 Room Air 08/15/16 21:20 2.0 08/11/16 11:29 28 I&O- Last 24 Hours up to 6 AM 08/16/16 06:00 Intake Total 1320 ml Output Total 2150 ml Balance -830 ml GURVINDER LEONARD MD August 16, 2016 10:15
[2016-08-16] MEDS: FLUoxetine 20 MG CAP PO SCH (13:24)
[2016-08-16] MEDS ORDERED: FLUCONAZOLE 50MG TABLET PO ONE (13:45)
[2016-08-16 14:00] VITALS: BP 137/61
[2016-08-16 19:30] VITALS: O2SAT 95
[2016-08-16 22:00] VITALS: BP 137/65
[2016-08-16 22:45] VITALS: O2SAT 98
[2016-08-17] MEDS: IPRATROPIUM 0.5MG/ALBUTEROL 2.5MG INH SOL UD 3ML (DUONEB)(J7620) NEB SCH ×6 (04:43→23:30)
[2016-08-17] MEDS: SODIUM CHLORIDE 0.9% INJ 10 ML SYR IV PRN (05:28)
[2016-08-17 05:40] LABS: MEAN CORPUSCULAR HEMOGLOBIN 23.6 pg (27.0-33.0); MEAN CORPUSCULAR VOLUME 81.1 fl (80.0-96.0); RED CELL DISTRIBUTION WIDTH 19.9 % (11.5-14.5); WHITE BLOOD COUNT 8.5 K/mm3 (4.0-10.0)
[2016-08-17 06:00] VITALS: BP 155/81
[2016-08-17 06:42] LABS: CALCIUM LEVEL 8.2 MG/DL (8.8-10.2); CREATININE FOR GFR 1.31 MG/DL (0.55-1.02); GLOMERULAR FILTRATION RATE 42.5 (>39); POTASSIUM SERUM 3.6 MEQ/L (3.5-5.1)
[2016-08-17] MEDS: COLCHICINE 0.6 MG TAB PO SCH (08:55)
[2016-08-17] MEDS: LACTULOSE 20 GM/30 ML SYRUP UD PO SCH ×2 (08:55→21:34)
[2016-08-17] MEDS: HumaLOG INSULIN (NovoLOG) PER UNIT SC SCH ×4 (08:56→21:33)
[2016-08-17] MEDS: ASPIRIN 81 MG ENTERIC TAB PO SCH (08:57)
[2016-08-17] MEDS: SUCRALFATE 1 GM TAB PO SCH ×2 (08:57→21:34)
[2016-08-17] MEDS: SODIUM CHLORIDE 0.9% INJ 10 ML SYR IV SCH (08:57)
[2016-08-17] MEDS: SPIRONOLACTONE 25 MG TAB PO SCH ×2 (08:57→17:05)
[2016-08-17] MEDS: FERROUS GLUCONATE 324 MG TAB PO SCH (08:57)
[2016-08-17] MEDS: levETIRAcetam 250MG TABLET (KEPPRA) PO SCH ×4 (08:57→21:34)
[2016-08-17] MEDS: OMEPRAZOLE 20 MG CAP PO SCH ×2 (08:57→21:34)
[2016-08-17] MEDS: PROMETHAZINE 25 MG TAB PO SCH ×3 (08:57→17:04)
[2016-08-17] MEDS: DOCUSATE SODIUM 100 MG CAP PO SCH ×2 (08:57→21:34)
[2016-08-17] MEDS: ONDANSETRON 4 MG TAB (S0181) PO SCH ×4 (08:57→21:34)
[2016-08-17] MEDS: PREGABALIN 100 MG CAP (LYRICA) PO SCH ×3 (08:57→21:34)
[2016-08-17] MEDS: METOCLOPRAMIDE 10 MG TAB PO SCH ×3 (08:58→21:34)
[2016-08-17] MEDS: TORSEMIDE 20 MG TAB PO SCH (08:58)
[2016-08-17] MEDS: LEVEMIR (INSULIN DETEMIR) 1 UNITS/0.01ML SC SCH ×2 (09:22→21:34)
[2016-08-17] MEDS: FLUoxetine 20 MG CAP PO SCH (12:29)
[2016-08-17 14:00] VITALS: BP 132/63
--- NOTE | 2016-08-17 15:47 | IPNPDOC ---
Subjective Date Seen The patient was seen on 08/17/16. Subjective Chief Complaint/HPI The patient is a 71-year-old female admitted with a reason for visit of Acute On Chronic Resp Failure W Hypoxia, Anemia. General: Denies: Chills, Night Sweats Constitutional: Denies: Chills, Fever Eyes: Denies: Pain, Vision change ENT: Denies: Head Aches, Ear Pain Skin: Denies: Rash, Lesions Pulmonary: Denies: Dyspnea, Cough Cardiovascular: Denies: Chest Pain, Palpitations Gastrointestinal: Denies: Nausea, Vomiting Genitourinary: Denies: Dysuria, Frequency Hematologic: Denies: Bruising, Bleeding Excessively Objective Physical Examination General Exam: Positive: Alert, Cooperative, No Acute Distress ENT Exam: Positive: Atraumatic, Mucous membr. moist/pink Neck Exam: Negative: JVD Chest Exam: Positive: Rhonchi (In the Upper lung zones B/L), Diminished Heart Exam: Positive: Rate Normal, Normal S1, Normal S2 Abdomen Exam: Positive: Soft, Negative: Tenderness Extremity Exam: Positive: Swelling (2+ pitting edema in the lower extremities bilaterally), Negative: Tenderness Psych Exam: Positive: Oriented x 3 Assessment /Plan Plan/VTE VTE Prophylaxis Ordered?: Yes Plan Acute on Chronic Hypoxic Respiratory Failure 2/2 Viral PNA, in a patient with underlying COPD CXR, and CT Chest noted Cont Albuterol, Inhaler, and Nebulizer Therapy Respiratory Panel + for Rhinovirus/Enterovirus s/p Prednisone trial At this time, the patient is currently back to her baseline respiratory status Iron deficiency anemia Anemia Patient has required 2 Units of PRBC's during this admission Continue ferrous gluconate 324 mg FOBT noted to be positive Scheduled for Colonoscopy on 08/19/16 We'll continue to monitor her hgb levels Diabetes mellitus, uncontrolled Continue the patient on 150 units of Levemir twice a day The patient's insulin sliding scale has been adjusted for higher doses We'll continue to monitor the patient's blood glucose levels and titrate basal and bolus dosing as indicated Diastolic congestive heart failure, stable Last echocardiogram notable for an left ventricular ejection fraction of 60% Continue patient on torsemide and spironolactone Stage IIIB chronic kidney disease Serum creatinine appears to be her baseline Hypertension, stable Continue current regimen Irritable bowel syndrome Continue patient on Colace, magnesium hydroxide, Senokot, Bisacodyl, and lactulose. Gastroesophageal reflux disease Continue patient on Prilosec and sucralfate. Depression/anxiety Continue on fluoxetine. Seizure disorder Continue Keppra. Gout Continue colchicine. Obstructive sleep apnea May use home CPAP machine Chronic low back pain Continue Lyrica and baclofen DVT prophylaxis-TEDs (Anemic, FOBT +) Disposition-Patient's respiratory status optimized, will await Colonoscopy to be done on 08/19/16 for Anemia requiring multiple blood transfusions during this admission. VS, I&O, 24H, Fishbone Vital Signs/I&O Vital Signs Date Time Temp Pulse Resp B/P (MAP) Pulse Ox O2 Delivery O2 Flow Rate FiO2 08/17/16 08:00 Nasal Cannula 2.0 08/17/16 06:00 98.5 86 13 155/81 (105) 96 08/11/16 11:29 28 I&O- Last 24 Hours up to 6 AM 08/17/16 06:00 Intake Total 1200 ml Output Total 1900 ml Balance -700 ml Laboratory Data 24H LABS Laboratory Tests 2 08/16/16 17:02: Bedside Glucose (Misc Panel) 338H 08/16/16 20:41: Bedside Glucose (Misc Panel) 312H 08/17/16 05:28: Anion Gap 8, Glomerular Filtration Rate 42.5, Blood Urea Nitrogen 21H, Creatinine 1.31H, Sodium Level 142, Potassium Level 3.6, Chloride Level 101, Carbon Dioxide Level 33H, Calcium Level 8.2L CBC/BMP Laboratory Tests 08/17/16 05:27 Red Blood Count 4.01, Mean Corpuscular Volume 81.1, Mean Corpuscular Hemoglobin 23.6 L, Mean Corpuscular Hemoglobin Concent 29.0 L, Red Cell Distribution Width 19.9 H 08/17/16 05:28 Calcium Level 8.2 L Microbiology Microbiology 08/07/16 Stool Occult Blood (GORDY) - Final, Complete 08/07/16 Respiratory Virus Panel (PCR) (GORDY) - Final, Complete Human Rhinovirus/Enterovirus ANGELA GIBSON MD August 17, 2016 15:47
[2016-08-17 22:00] VITALS: BP 143/67
[2016-08-18] MEDS: IPRATROPIUM 0.5MG/ALBUTEROL 2.5MG INH SOL UD 3ML (DUONEB)(J7620) NEB SCH ×6 (03:02→23:02)
[2016-08-18] MEDS: SODIUM CHLORIDE 0.9% INJ 10 ML SYR IV PRN (05:51)
[2016-08-18 06:00] VITALS: BP 150/62
[2016-08-18 06:19] LABS: MEAN CORPUSCULAR HEMOGLOBIN 23.7 pg (27.0-33.0); MEAN CORPUSCULAR HGB CONC 29.2 g/dl (32.0-36.5); MEAN CORPUSCULAR VOLUME 81.3 fl (80.0-96.0); RED CELL DISTRIBUTION WIDTH 20.1 % (11.5-14.5); WHITE BLOOD COUNT 6.9 K/mm3 (4.0-10.0)
[2016-08-18 07:02] LABS: CALCIUM LEVEL 7.9 MG/DL (8.8-10.2); CREATININE FOR GFR 1.36 MG/DL (0.55-1.02); GLOMERULAR FILTRATION RATE 40.7 (>39); POTASSIUM SERUM 3.6 MEQ/L (3.5-5.1)
[2016-08-18] MEDS: LEVEMIR (INSULIN DETEMIR) 1 UNITS/0.01ML SC SCH ×2 (09:27→21:00)
[2016-08-18] MEDS: HumaLOG INSULIN (NovoLOG) PER UNIT SC SCH ×4 (09:27→21:00)
[2016-08-18] MEDS: FERROUS GLUCONATE 324 MG TAB PO SCH (09:28)
[2016-08-18] MEDS: levETIRAcetam 250MG TABLET (KEPPRA) PO SCH ×4 (09:28→20:14)
[2016-08-18] MEDS: SODIUM CHLORIDE 0.9% INJ 10 ML SYR IV SCH (09:28)
[2016-08-18] MEDS: ASPIRIN 81 MG ENTERIC TAB PO SCH (09:28)
[2016-08-18] MEDS: DOCUSATE SODIUM 100 MG CAP PO SCH ×2 (09:28→20:14)
[2016-08-18] MEDS: OMEPRAZOLE 20 MG CAP PO SCH ×2 (09:28→20:14)
[2016-08-18] MEDS: LACTULOSE 20 GM/30 ML SYRUP UD PO SCH ×2 (09:28→20:13)
[2016-08-18] MEDS: COLCHICINE 0.6 MG TAB PO SCH (09:28)
[2016-08-18] MEDS: SUCRALFATE 1 GM TAB PO SCH ×2 (09:29→20:13)
[2016-08-18] MEDS: PREGABALIN 100 MG CAP (LYRICA) PO SCH ×3 (09:29→20:14)
[2016-08-18] MEDS: METOCLOPRAMIDE 10 MG TAB PO SCH ×3 (09:29→20:14)
[2016-08-18] MEDS: PROMETHAZINE 25 MG TAB PO SCH ×3 (09:29→17:00)
[2016-08-18] MEDS: ONDANSETRON 4 MG TAB (S0181) PO SCH ×4 (09:29→20:14)
[2016-08-18] MEDS: SPIRONOLACTONE 25 MG TAB PO SCH ×2 (09:29→16:04)
[2016-08-18] MEDS: TORSEMIDE 20 MG TAB PO SCH (09:29)
[2016-08-18] MEDS ORDERED: GOLYTELY SOLN 4000 ML BTL PO ONE (09:45)
[2016-08-18] MEDS ORDERED: MOM 30ML SUSPENSION UDC PO ONE ×2 (09:45→15:00)
--- NOTE | 2016-08-18 12:27 | IPNPDOC ---
Subjective Date Seen The patient was seen on 08/18/16. Subjective Chief Complaint/HPI The patient is a 71-year-old female admitted with a reason for visit of Acute On Chronic Resp Failure W Hypoxia, Anemia. General: Denies: Chills, Night Sweats Constitutional: Denies: Chills Eyes: Denies: Pain, Vision change ENT: Denies: Head Aches, Ear Pain Skin: Denies: Rash, Lesions Pulmonary: Denies: Dyspnea, Cough Cardiovascular: Denies: Chest Pain, Palpitations Gastrointestinal: Denies: Nausea, Vomiting Genitourinary: Denies: Dysuria, Frequency Hematologic: Denies: Bruising, Bleeding Excessively Objective Physical Examination General Exam: Positive: Alert, Cooperative, No Acute Distress ENT Exam: Positive: Atraumatic, Mucous membr. moist/pink Neck Exam: Negative: JVD Chest Exam: Positive: Rhonchi (In the Upper lung zones B/L), Diminished Heart Exam: Positive: Rate Normal, Normal S1, Normal S2 Abdomen Exam: Positive: Soft, Negative: Tenderness Extremity Exam: Positive: Swelling (2+ pitting edema in the lower extremities bilaterally), Negative: Tenderness Psych Exam: Positive: Oriented x 3 Assessment /Plan Plan/VTE VTE Prophylaxis Ordered?: Yes Plan Acute on Chronic Hypoxic Respiratory Failure 2/2 Viral PNA, in a patient with underlying COPD CXR, and CT Chest noted Cont Albuterol, Inhaler, and Nebulizer Therapy Respiratory Panel + for Rhinovirus/Enterovirus s/p Prednisone trial At this time, the patient is currently back to her baseline respiratory status Iron deficiency anemia Anemia Patient has required 2 Units of PRBC's during this admission Continue ferrous gluconate 324 mg FOBT noted to be positive Scheduled for Colonoscopy on 08/19/16 We'll continue to monitor her hgb levels Diabetes mellitus, uncontrolled Continue the patient on 150 units of Levemir twice a day The patient's insulin sliding scale has been adjusted for higher doses We'll continue to monitor the patient's blood glucose levels and titrate basal and bolus dosing as indicated Diastolic congestive heart failure, stable Last echocardiogram notable for an left ventricular ejection fraction of 60% Continue patient on torsemide and spironolactone Stage IIIB chronic kidney disease Serum creatinine appears to be her baseline Hypertension, stable Continue current regimen Irritable bowel syndrome Continue patient on Colace, magnesium hydroxide, Senokot, Bisacodyl, and lactulose. Gastroesophageal reflux disease Continue patient on Prilosec and sucralfate. Depression/anxiety Continue on fluoxetine. Seizure disorder Continue Keppra. Gout Continue colchicine. Obstructive sleep apnea May use home CPAP machine Chronic low back pain Continue Lyrica and baclofen DVT prophylaxis-TEDs (Anemic, FOBT +) Disposition-Patient's respiratory status optimized, will await Colonoscopy to be done on 08/19/16 for Anemia requiring multiple blood transfusions during this admission. VS, I&O, 24H, Fishbone Vital Signs/I&O Vital Signs Date Time Temp Pulse Resp B/P (MAP) Pulse Ox O2 Delivery O2 Flow Rate FiO2 08/18/16 08:00 Nasal Cannula 2.0 08/18/16 06:00 97.4 101 16 150/62 (91) 92 I&O- Last 24 Hours up to 6 AM 08/18/16 06:00 Intake Total 1480 ml Output Total 1200 ml Balance 280 ml Laboratory Data 24H LABS Laboratory Tests 2 08/17/16 16:29: Bedside Glucose (Misc Panel) 222H 08/17/16 19:56: Bedside Glucose (Misc Panel) 285H 08/18/16 05:49: Anion Gap 8, Glomerular Filtration Rate 40.7, Blood Urea Nitrogen 15, Creatinine 1.36H, Sodium Level 140, Potassium Level 3.6, Chloride Level 99, Carbon Dioxide Level 33H, Calcium Level 7.9L 08/18/16 06:29: Bedside Glucose (Misc Panel) 256H 08/18/16 12:11: Bedside Glucose (Misc Panel) 238H CBC/BMP Laboratory Tests 08/18/16 05:49 Red Blood Count 3.95 L, Mean Corpuscular Volume 81.3, Mean Corpuscular Hemoglobin 23.7 L, Mean Corpuscular Hemoglobin Concent 29.2 L, Red Cell Distribution Width 20.1 H, Calcium Level 7.9 L ANGELA GIBSON MD August 18, 2016 12:27
[2016-08-18] MEDS: FLUoxetine 20 MG CAP PO SCH (12:32)
[2016-08-18 14:00] VITALS: BP 146/66
[2016-08-18] MEDS: ACETAMINOPHEN TAB 650MG DOSE (2X325MG) PO PRN (20:14)
[2016-08-18 22:00] VITALS: BP 135/65
[2016-08-18] MEDS ORDERED: LEVEMIR (INSULIN DETEMIR) 1 UNITS/0.01ML SC ONE (22:30)
[2016-08-19] VITALS (7 sets, daily range): BP systolic 140–177; BP diastolic 62–79
[2016-08-19] MEDS: SODIUM CHLORIDE 0.9% INJ 10 ML SYR IV PRN (05:03)
[2016-08-19 05:36] LABS: MEAN CORPUSCULAR HGB CONC 29.6 g/dl (32.0-36.5); MEAN CORPUSCULAR VOLUME 80.9 fl (80.0-96.0); WHITE BLOOD COUNT 6.6 K/mm3 (4.0-10.0)
[2016-08-19 06:00] LABS: CALCIUM LEVEL 7.9 MG/DL (8.8-10.2); CREATININE FOR GFR 1.27 MG/DL (0.55-1.02); POTASSIUM SERUM 3.4 MEQ/L (3.5-5.1)
[2016-08-19] MEDS: HumaLOG INSULIN (NovoLOG) PER UNIT SC SCH ×4 (07:30→21:56)
[2016-08-19] MEDS: LEVEMIR (INSULIN DETEMIR) 1 UNITS/0.01ML SC SCH ×2 (07:31→21:55)
[2016-08-19] MEDS ORDERED: LEVEMIR (INSULIN DETEMIR) 1 UNITS/0.01ML SC ONE (07:45)
[2016-08-19] MEDS: IPRATROPIUM 0.5MG/ALBUTEROL 2.5MG INH SOL UD 3ML (DUONEB)(J7620) NEB SCH ×5 (07:53→22:58)
[2016-08-19] MEDS: PREGABALIN 100 MG CAP (LYRICA) PO SCH ×3 (08:12→21:56)
[2016-08-19] MEDS: PROMETHAZINE 25 MG TAB PO SCH ×3 (08:12→18:20)
[2016-08-19] MEDS: levETIRAcetam 250MG TABLET (KEPPRA) PO SCH ×4 (08:12→21:56)
[2016-08-19] MEDS: METOCLOPRAMIDE 10 MG TAB PO SCH ×3 (08:12→21:56)
[2016-08-19] MEDS: ONDANSETRON 4 MG TAB (S0181) PO SCH ×4 (08:12→21:56)
[2016-08-19] MEDS: DOCUSATE SODIUM 100 MG CAP PO SCH ×2 (08:12→21:56)
[2016-08-19] MEDS: COLCHICINE 0.6 MG TAB PO SCH (08:12)
[2016-08-19] MEDS: OMEPRAZOLE 20 MG CAP PO SCH ×2 (08:12→21:56)
[2016-08-19] MEDS: FERROUS GLUCONATE 324 MG TAB PO SCH (08:12)
[2016-08-19] MEDS: SODIUM CHLORIDE 0.9% INJ 10 ML SYR IV SCH (08:13)
[2016-08-19] MEDS: SUCRALFATE 1 GM TAB PO SCH ×2 (08:14→21:57)
[2016-08-19] MEDS: SPIRONOLACTONE 25 MG TAB PO SCH ×2 (08:14→18:20)
[2016-08-19] MEDS: TORSEMIDE 20 MG TAB PO SCH (08:15)
[2016-08-19] MEDS ORDERED: MAGNESIUM CITRATE 300 ML BTL PO ONE (08:30)
[2016-08-19] MEDS ORDERED: POTASSIUM CHLORIDE 10 MEQ SR TABLET PO ONE (08:30)
[2016-08-19] MEDS: LACTULOSE 20 GM/30 ML SYRUP UD PO SCH ×2 (09:00→21:57)
[2016-08-19] MEDS: ASPIRIN 81 MG ENTERIC TAB PO SCH (09:00)
[2016-08-19] MEDS: FLUoxetine 20 MG CAP PO SCH (12:00)
[2016-08-19] MEDS ORDERED: PROPOFOL 200 MG/20 ML VIAL As Ordered ONE (13:26)
[2016-08-19] MEDS ORDERED: MIDAZOLAM INJ 2 MG/2 ML VIAL (J2250) As Ordered ONE ×2 (14:01→14:41)
[2016-08-19] MEDS ORDERED: fentaNYL 100 MCG/2 ML INJECTION (J3010) As Ordered ONE (14:08)
[2016-08-19] MEDS ORDERED: LIDOCAINE 2% INJ 100 MG/5 ML SDV (FOR ANES.) As Ordered ONE (14:19)
--- NOTE | 2016-08-19 14:47 | IPNPDOC ---
Subjective Date Seen The patient was seen on 08/19/16. Subjective Chief Complaint/HPI The patient is a 71-year-old female admitted with a reason for visit of Acute On Chronic Resp Failure W Hypoxia, Anemia. General: Denies: Chills, Night Sweats Constitutional: Denies: Chills, Fever Eyes: Denies: Pain, Vision change ENT: Denies: Head Aches, Ear Pain Skin: Denies: Rash, Lesions Pulmonary: Reports: Cough, Denies: Dyspnea Cardiovascular: Denies: Chest Pain, Palpitations Gastrointestinal: Denies: Nausea, Vomiting Genitourinary: Denies: Dysuria, Frequency Objective Physical Examination General Exam: Positive: Alert, Cooperative, No Acute Distress ENT Exam: Positive: Atraumatic, Mucous membr. moist/pink Neck Exam: Negative: JVD Chest Exam: Positive: Rhonchi (In the Upper lung zones B/L), Diminished Heart Exam: Positive: Rate Normal, Normal S1, Normal S2 Abdomen Exam: Positive: Soft, Negative: Tenderness Extremity Exam: Positive: Swelling (2+ pitting edema in the lower extremities bilaterally), Negative: Tenderness Psych Exam: Positive: Oriented x 3 Assessment /Plan Plan/VTE VTE Prophylaxis Ordered?: Yes Plan Acute on Chronic Hypoxic Respiratory Failure 2/2 Viral PNA, in a patient with underlying COPD CXR, and CT Chest noted Cont Albuterol, Inhaler, and Nebulizer Therapy Respiratory Panel + for Rhinovirus/Enterovirus s/p Prednisone trial At this time, the patient is currently back to her baseline respiratory status Iron deficiency anemia Anemia Patient has required 2 Units of PRBC's during this admission Continue ferrous gluconate 324 mg FOBT noted to be positive Hgb has remained stable over the last few days Scheduled for Colonoscopy today We'll continue to monitor her hgb levels Diabetes mellitus, uncontrolled Continue the patient on 150 units of Levemir twice a day The patient's insulin sliding scale has been adjusted for higher doses We'll continue to monitor the patient's blood glucose levels and titrate basal and bolus dosing as indicated Diastolic congestive heart failure, stable Last echocardiogram notable for an left ventricular ejection fraction of 60% Continue patient on torsemide and spironolactone Stage IIIB chronic kidney disease Serum creatinine appears to be her baseline Hypertension, stable Continue current regimen Irritable bowel syndrome Continue patient on Colace, magnesium hydroxide, Senokot, Bisacodyl, and lactulose. Gastroesophageal reflux disease Continue patient on Prilosec and sucralfate. Depression/anxiety Continue on fluoxetine. Seizure disorder Continue Keppra. Gout Continue colchicine. Obstructive sleep apnea May use home CPAP machine Chronic low back pain Continue Lyrica and baclofen DVT prophylaxis-TEDs (Anemic, FOBT +) Disposition-Patient's respiratory status optimized, will await Colonoscopy results which will be done today. Anticipate D/C in the AM. VS, I&O, 24H, Fishbone Vital Signs/I&O Vital Signs Date Time Temp Pulse Resp B/P (MAP) Pulse Ox O2 Delivery O2 Flow Rate FiO2 08/19/16 08:00 Nasal Cannula 2.0 08/19/16 06:00 97.4 97 18 158/79 (105) 91 I&O- Last 24 Hours up to 6 AM 08/19/16 06:00 Intake Total 2110 ml Output Total 1000 ml Balance 1110 ml Laboratory Data 24H LABS Laboratory Tests 2 08/18/16 16:46: Bedside Glucose (Misc Panel) 175H 08/18/16 21:42: Bedside Glucose (Misc Panel) 185H 08/19/16 05:10: Anion Gap 6L, Glomerular Filtration Rate 44.0, Blood Urea Nitrogen 10, Creatinine 1.27H, Sodium Level 142, Potassium Level 3.4L, Chloride Level 99, Carbon Dioxide Level 37H, Calcium Level 7.9L 08/19/16 12:03: Bedside Glucose (Misc Panel) 276H CBC/BMP Laboratory Tests 08/19/16 05:10 Red Blood Count 4.06, Mean Corpuscular Volume 80.9, Mean Corpuscular Hemoglobin 24.0 L, Mean Corpuscular Hemoglobin Concent 29.6 L, Red Cell Distribution Width 20.0 H, Calcium Level 7.9 L ANGELA GIBSON MD August 19, 2016 14:47
--- NOTE | 2016-08-19 15:11 | ROOR ---
Patient Name: Maricarmen Stern Procedure Date: 08/19/2016 2:13 PM Date of : 1945 Age: 71 Gender: Female Note Status: Finalized Procedure: Colonoscopy Indications: Iron deficiency anemia Providers: Devin Hoskins Jr, MD Referring MD: Torrey Panchal Md Requesting Provider: Medicines: Propofol per Anesthesia Complications: No immediate complications. Procedure: Pre-Anesthesia Assessment: - Prior to the procedure, a History and Physical was performed, and patient medications and allergies were reviewed. The patient is competent. The risks and benefits of the procedure and the sedation options and risks were discussed with the patient. All questions were answered and informed consent was obtained. Patient identification and proposed procedure were verified by the physician and the nurse in the pre-procedure area and in the procedure room. Mental Status Examination: alert and oriented. Airway Examination: normal oropharyngeal airway and neck mobility. Respiratory Examination: clear to auscultation. CV Examination: normal. ASA Grade Assessment: III - A patient with severe systemic disease. After reviewing the risks and benefits, the patient was deemed in satisfactory condition to undergo the procedure. The anesthesia plan was to use moderate sedation / analgesia (conscious sedation). Immediately prior to administration of medications, the patient was re-assessed for adequacy to receive sedatives. The heart rate, respiratory rate, oxygen saturations, blood pressure, adequacy of pulmonary ventilation, and response to care were monitored throughout the procedure. The physical status of the patient was re-assessed after the procedure. The Colonoscope was introduced through the anus and advanced to the right colon. The colonoscopy was performed without difficulty. The patient tolerated the procedure well. The quality of the bowel preparation was adequate and poor. Findings: The perianal exam findings include non-thrombosed external hemorrhoids, non-thrombosed internal hemorrhoids, internal hemorrhoids that prolapse with straining, but spontaneously regress to the resting position (Grade II) and internal hemorrhoids that prolapse with straining, but require manual replacement into the anal canal (Grade III). A diffuse area of mild melanosis was found in the entire colon. The rectum, recto-sigmoid colon, sigmoid colon, descending colon, transverse colon and ascending colon appeared normal. Impression: - Preparation of the colon was poor. - Non-thrombosed external hemorrhoids, non-thrombosed internal hemorrhoids, internal hemorrhoids that prolapse with straining, but spontaneously regress to the resting position (Grade II) and internal hemorrhoids that prolapse with straining, but require manual replacement into the anal canal (Grade III) found on perianal exam. - Melanosis in the colon. - The rectum, recto-sigmoid colon, sigmoid colon, descending colon, transverse colon and ascending colon are normal. - No specimens collected. Recommendation: - Admit the patient [facility] for [facility] care. Devin Hoskins MD Devin Hoskins Jr, MD 08/19/2016 3:10:39 PM This report has been signed electronically. Number of Addenda: 0 Note Initiated On: 08/19/2016 2:13 PM Estimated Blood Loss: Estimated blood loss: none.
[2016-08-19] MEDS ORDERED: ACETAMINOPHEN 325 MG TAB As Ordered ONE (15:48)
[2016-08-19] MEDS: ACETAMINOPHEN TAB 650MG DOSE (2X325MG) PO PRN (15:50)
[2016-08-20 02:00] VITALS: BP 136/63
[2016-08-20] MEDS: IPRATROPIUM 0.5MG/ALBUTEROL 2.5MG INH SOL UD 3ML (DUONEB)(J7620) NEB SCH ×3 (03:31→10:40)
[2016-08-20] MEDS: SODIUM CHLORIDE 0.9% INJ 10 ML SYR IV PRN (05:50)
[2016-08-20 06:00] VITALS: BP 136/58
[2016-08-20 06:23] LABS: MEAN CORPUSCULAR HEMOGLOBIN 24.1 pg (27.0-33.0); MEAN CORPUSCULAR HGB CONC 28.5 g/dl (32.0-36.5); MEAN CORPUSCULAR VOLUME 84.5 fl (80.0-96.0); WHITE BLOOD COUNT 7.4 K/mm3 (4.0-10.0)
[2016-08-20 06:54] LABS: CALCIUM LEVEL 7.6 MG/DL (8.8-10.2); CREATININE FOR GFR 1.29 MG/DL (0.55-1.02); GLOMERULAR FILTRATION RATE 43.2 (>39); POTASSIUM SERUM 3.9 MEQ/L (3.5-5.1)
[2016-08-20] MEDS: PROMETHAZINE 25 MG TAB PO SCH (07:30)
[2016-08-20] MEDS: HumaLOG INSULIN (NovoLOG) PER UNIT SC SCH (07:30)
[2016-08-20] MEDS ORDERED: FERR32TA PO (08:08)
[2016-08-20] MEDS: SODIUM CHLORIDE 0.9% INJ 10 ML SYR IV SCH (09:00)
[2016-08-20] MEDS: LEVEMIR (INSULIN DETEMIR) 1 UNITS/0.01ML SC SCH (09:00)
[2016-08-20] MEDS: LACTULOSE 20 GM/30 ML SYRUP UD PO SCH (09:00)
[2016-08-20] MEDS ORDERED: BENZONATATE 100 MG CAP PO SCH (09:00)
[2016-08-20] MEDS: PREGABALIN 100 MG CAP (LYRICA) PO SCH (10:12)
[2016-08-20] MEDS: ASPIRIN 81 MG ENTERIC TAB PO SCH (10:13)
[2016-08-20] MEDS: COLCHICINE 0.6 MG TAB PO SCH (10:13)
[2016-08-20] MEDS: METOCLOPRAMIDE 10 MG TAB PO SCH (10:13)
[2016-08-20] MEDS: levETIRAcetam 250MG TABLET (KEPPRA) PO SCH (10:13)
[2016-08-20] MEDS: ONDANSETRON 4 MG TAB (S0181) PO SCH (10:13)
[2016-08-20] MEDS: TORSEMIDE 20 MG TAB PO SCH (10:14)
[2016-08-20] MEDS: FLUoxetine 20 MG CAP PO SCH (10:14)
[2016-08-20] MEDS: SUCRALFATE 1 GM TAB PO SCH (10:14)
[2016-08-20] MEDS: DOCUSATE SODIUM 100 MG CAP PO SCH (10:15)
[2016-08-20] MEDS: OMEPRAZOLE 20 MG CAP PO SCH (10:15)
[2016-08-20] MEDS: FERROUS GLUCONATE 324 MG TAB PO SCH (10:15)
[2016-08-20] MEDS: SPIRONOLACTONE 25 MG TAB PO SCH (10:15)
[2016-08-20 10:30] VITALS: BP 141/79
--- NOTE | 2016-08-20 14:07 | DS.PDOC ---
Discharge Summary General Date of Admission August 06, 2016 at 00:05 Date of Discharge 08/20/16 Discharge Summary PROCEDURES PERFORMED DURING STAY: None. ADMITTING DIAGNOSES: 1. . COPD exacerbation secondary to rhinovirus/enterovirus 2. . Insulin-dependent diabetes mellitus, uncontrolled 3. . Anemia DISCHARGE DIAGNOSES: 1. . COPD exacerbation secondary to rhinovirus/enterovirus 2. . Insulin-dependent diabetes mellitus, uncontrolled 3. . Anemia COMPLICATIONS/CHIEF COMPLAINT: Acute On Chronic Resp Failure W Hypoxia, Anemia. HISTORY OF PRESENT ILLNESS: . 71-year-old female with past medical history of COPD with chronic hypoxia requiring 2 L of home oxygen at baseline, diabetes mellitus, hypertension, morbid obesity, obstructive sleep apnea, seizure disorder, chronic diastolic congestive heart failure, history of DVT s/p IVC filter, and chronic iron deficiency anemia presented to the ER with a chief complaint of increasing shortness of breath and lethargy/fatigue. She states that she checked her oxygen saturation at home and she was noted to be in the low 80s despite using 2 L of oxygen. During this time, the patient states that she has been producing a cough productive of yellowish sputum. In addition, she states that she has been feeling increasingly lethargic and fatigued. The patient was admitted to the hospitalist service for further evaluation and management During the patient's hospitalization here she was found to be positive for human rhinovirus/enterovirus on the respiratory panel. The patient was started on IV steroids which were then transition to by mouth steroids. In addition the patient's diabetes mellitus was treated with high-doses of insulin given the administration of steroids. The patient's respiratory status significantly improved with the aforementioned therapy. In addition, the patient was noted to be increasingly anemic requiring 2 units of packed red blood cells. She did have a positive FOBT during this time, and was subsequently taken to the OR for a colonoscopy. Patient's colonoscopy was notable for nonthrombosed external hemorrhoids and nonthrombosed internal hemorrhoids. There were no acute sources of active bleeding noted. The patient has been started on ferrous sulfate supplementation. At this time, the patient states she is feeling much better and is eager to return home. She has been cleared by physical therapy to return home with her previous level of care. I advised patient to follow-up with primary care physician within one week. In addition I have asked the patient to follow-up with her pulmonary care doctor in the next 2-3 weeks. The patient was advised to return to the ER if her symptoms return or worsen. DISCHARGE MEDICATIONS: Please see below. ALLERGIES: Please see below. PHYSICAL EXAMINATION ON DISCHARGE: VITAL SIGNS: Please see below. General Exam: Positive: Alert, Cooperative, No Acute Distress ENT Exam: Positive: Atraumatic, Mucous membr. moist/pink Neck Exam: Negative: JVD Chest Exam: Positive: Rhonchi (In the Upper lung zones B/L), Diminished Heart Exam: Positive: Rate Normal, Normal S1, Normal S2 Abdomen Exam: Positive: Soft, Negative: Tenderness Extremity Exam: Positive: Swelling (2+ pitting edema in the lower extremities bilaterally), Negative: Tenderness Psych Exam: Positive: Oriented x 3 LABORATORY DATA: Please see below. IMAGING: CT of the chest without contrast Clinical statement: Shortness of breath. Technique: Multiple axial CT images were obtained with 5 mm cuts through the chest without administration of contrast. Comparison: 05/14/2016. Findings: There is no thoracic lymphadenopathy. The visualized portions of the thyroid gland is unremarkable. There are no pericardial or pleural effusions. There are bilateral upper and lower lobe infiltrates. Limited imaging of the upper abdomen does not demonstrate any acute abnormalities. There are no suspicious osseous lesions. Impression: No significant interval change. Scattered interstitial changes throughout the lungs bilaterally remain. Procedure: Colonoscopy Indications: Iron deficiency anemia Providers: Devin Hoskins Jr, MD Referring MD: Torrey Gibson Md Requesting Provider: Medicines: Propofol per Anesthesia Complications: No immediate complications. Procedure: Pre-Anesthesia Assessment: - Prior to the procedure, a History and Physical was performed, and patient medications and allergies were reviewed. The patient is competent. The risks and benefits of the procedure and the sedation options and risks were discussed with the patient. All questions were answered and informed consent was obtained. Patient identification and proposed procedure were verified by the physician and the nurse in the pre-procedure area and in the procedure room. Mental Status Examination: alert and oriented. Airway Examination: normal oropharyngeal airway and neck mobility. Respiratory Examination: clear to auscultation. CV Examination: normal. ASA Grade Assessment: III - A patient with severe systemic disease. After reviewing the risks and benefits, the patient was deemed in satisfactory condition to undergo the procedure. The anesthesia plan was to use moderate sedation / analgesia (conscious sedation). Immediately prior to administration of medications, the patient was re-assessed for adequacy to receive sedatives. The heart rate, respiratory rate, oxygen saturations, blood pressure, adequacy of pulmonary ventilation, and response to care were monitored throughout the procedure. The physical status of the patient was re-assessed after the procedure. The Colonoscope was introduced through the anus and advanced to the right colon. The colonoscopy was performed without difficulty. The patient tolerated the procedure well. The quality of the bowel preparation was adequate and poor. Findings: The perianal exam findings include non-thrombosed external hemorrhoids, non-thrombosed internal hemorrhoids, internal hemorrhoids that prolapse with straining, but spontaneously regress to the resting position (Grade II) and internal hemorrhoids that prolapse with straining, but require manual replacement into the anal canal (Grade III). A diffuse area of mild melanosis was found in the entire colon. The rectum, recto-sigmoid colon, sigmoid colon, descending colon, transverse colon and ascending colon appeared normal. Impression: - Preparation of the colon was poor. - Non-thrombosed external hemorrhoids, non-thrombosed internal hemorrhoids, internal hemorrhoids that prolapse with straining, but spontaneously regress to the resting position (Grade II) and internal hemorrhoids that prolapse with straining, but require manual replacement into the anal canal (Grade III) found on perianal exam. - Melanosis in the colon. - The rectum, recto-sigmoid colon, sigmoid colon, descending colon, transverse colon and ascending colon are normal. - No specimens collected. PROGNOSIS: Medically stable at this time, long-term prognosis poor ACTIVITY: As tolerated. DIET: . Carb consistent diet DISCHARGE PLAN: DISPOSITION: [facility]. DISCHARGE INSTRUCTIONS: 1. . Follow-up with primary care physician within one week 2. . Follow-up with pulmonary within 2-3 weeks 3. . Return to ER if symptoms persist or worsen DISCHARGE CONDITION: Stable. TIME SPENT ON DISCHARGE: Greater than 30 minutes. Vital Signs/I&Os Vital Signs Date Time Temp Pulse Resp B/P (MAP) Pulse Ox O2 Delivery O2 Flow Rate FiO2 08/20/16 08:45 Nasal Cannula 2.0 08/20/16 06:00 97.9 103 15 136/58 (84) 98 I&O- Last 24 Hours up to 6 AM 08/20/16 06:00 Intake Total 830 ml Output Total 450 ml Balance 380 ml Laboratory Data Labs 24H Laboratory Tests 2 08/19/16 15:16: Bedside Glucose (Misc Panel) 243H 08/19/16 16:45: Bedside Glucose (Misc Panel) 233H 08/19/16 20:35: Bedside Glucose (Misc Panel) 255H 08/20/16 06:00: Anion Gap 4L, Glomerular Filtration Rate 43.2, Blood Urea Nitrogen 9, Creatinine 1.29H, Sodium Level 140, Potassium Level 3.9, Chloride Level 101, Carbon Dioxide Level 35H, Calcium Level 7.6L CBC/BMP Laboratory Tests 08/20/16 06:00 Red Blood Count 4.01, Mean Corpuscular Volume 84.5, Mean Corpuscular Hemoglobin 24.1 L, Mean Corpuscular Hemoglobin Concent 28.5 L, Red Cell Distribution Width 20.0 H, Calcium Level 7.6 L FSBS Laboratory Tests Test 08/19/16 15:16 08/19/16 16:45 08/19/16 20:35 Range/Units Bedside Glucose (Misc Panel) 243 233 255 83-110 MG/DL Discharge Medications Scheduled (Amitiza) 24 Mcg Cap, 24 MCG PO QHS, (Reported) (Ammonium Lactate) 12 % Cre, 1 DOSE TOP BID, (Reported) APPLY TO LEGS AND FEET Albuterol/Ipratropium (Ipratropium [place]/Albut 0.5-2.5 (3) mg/3Ml) 1 Radha Radha, 1 RADHA INH QID, (Reported) Aspirin (Aspirin 81) 81 Mg Tab, 81 MG PO DAILY, (Reported) Baclofen (Baclofen) 20 Mg Tab, 20 MG PO BID, (Reported) Bisoprolol Fumarate (Bisoprolol Fumarate) 5 Mg Tab, 2.5 MG PO DAILY, (Reported) Colchicine (Colchicine) 0.6 Mg Tab, 0.6 MG PO DAILY, (Reported) Cranberry Extract (Cranberry) 500 Mg Cap, 500 MG PO TID, (Reported) Docusate Sodium (Docusate Sodium) 100 Mg Cap, 100 MG PO BID, (Reported) Ergocalciferol (Vitamin D) 50,000 Unit Cap, 50,000 UNIT PO MTHLY, (Reported) Ferrous Gluconate (Ferrous Gluconate) 324 Mg Tab, 324 MG PO DAILY Fluoxetine Hcl (Fluoxetine) 20 Mg Cap, 20 MG PO DAILY, (Reported) TAKES AT NOON Insulin Aspart (Novolog) 100 U/Ml Inj, 16 UNITS SC AC, (Reported) Insulin Detemir (Levemir) 1 Units/0.01 Ml Susp, 150 UNITS SC BID, (Reported) Lactulose (Lactulose) 10 Gm/15 Ml Radha, 30 ML PO BID, (Reported) MIX WITH JUICE Levetiracetam (Keppra) 500 Mg Tab, 500 MG PO QID, (Reported) Metoclopramide HCl (Reglan) 10 Mg Tab, 10 MG PO TID, (Reported) Omeprazole (Omeprazole) 20 Mg Cap, 20 MG PO BID, (Reported) Ondansetron HCl (Zofran) 4 Mg Tab, 4 MG PO QID, (Reported) Pregabalin (Lyrica) 100 Mg Cap, 100 MG PO TID, (Reported) Promethazine HCl (Promethazine HCl) 25 Mg Tab, 25 MG PO AC, (Reported) Spironolactone (Aldactone) 25 Mg Tab, 25 MG PO BID, (Reported) Sucralfate (Sucralfate) 1 Gm Tab, 1 GM PO BID, (Reported) Torsemide (Torsemide) 20 Mg Tab, 20 MG PO DAILY, (Reported) Scheduled PRN (Fioricet/Codeine 07-716-99-30 mg) 1 Cap Cap, 1 CAP PO TID PRN for HEADACHE, ( Reported) (Vagisil Maximum Strength) 1 % Mis, 1 DOSE TOP BID PRN for ITCHING, (Reported) Acetaminophen (Tylenol 8 Hour Arthritis) 650 Mg Tab, 650 MG PO Q8H PRN for PAIN, (Reported) Guaifenesin (Mucinex) 600 Mg Tab, 600 MG PO BID PRN for CONGESTION, (Reported) Milk Of Magnesia (Milk of Magnesia) 1,200 Mg/15 Ml [place], 30 ML PO DAILY PRN for CONSTIPATION, (Reported) Scopolamine (Transderm-Scop) 1.5 Mg Dis, 1.5 MG TOP Q72H PRN for NAUSEA, ( Reported) Senna (Senokot) 8.6 Mg Tab, 2 TAB PO BID PRN for CONSTIPATION, (Reported) Allergies Coded Allergies: Cephalosporins (Verified Allergy, Intermediate, KEFLEX - HIVES, 08/05/16) Chlorpromazine (Verified Allergy, Intermediate, HIVES, 08/05/16) Loratadine (Verified Allergy, Intermediate, HIVES, 08/05/16) Penicillins (Verified Allergy, Intermediate, HIVES, 08/05/16) Pentazocine (Verified Allergy, Intermediate, HIVES, 08/05/16) Sulfa Antibiotics (Unverified Allergy, Intermediate, HIVES, 08/05/16) Iodine (Verified Allergy, Unknown, 08/05/16) Methadone (Verified Allergy, Unknown, 08/05/16) Fluticasone (Verified Adverse Reaction, Mild, THRUSH, 08/05/16) Latex (Verified Adverse Reaction, Mild, RISK, 08/05/16) Salmeterol (Verified Adverse Reaction, Mild, THRUSH, 08/05/16) TORREY GIBSON MD August 20, 2016 14:07
[2016-08-21] MEDS ORDERED: HALO0.052 TOP (14:09)
[2016-08-21] MEDS ORDERED: FERR32TA PO (14:11)
== END 2016-08-20 11:10 | disposition home health service (06) | DRG 189 ==
LOC: M ED 21:07 → M ED INP 08-06 00:05 → M ICU 08-06 01:39 → M MS5PR 08-07 13:03
PROVIDERS: ADMIT Internal Medicine; ATTEND Internal Medicine
PROC: 0DJD8ZZ Inspection of Lower Intestinal Tract, Via Natural or Artificial Opening Endoscopic (ICD-10-PCS; principal; 2016-08-19 14:30)
DX: J96.21 Acute and chronic respiratory failure with hypoxia (principal); J44.1 Chronic obstructive pulmonary disease with (acute) exacerbation; N17.9 Acute kidney failure, unspecified; Z68.41 Body mass index [BMI] 40.0-44.9, adult; I50.32 Chronic diastolic (congestive) heart failure; E66.01 Morbid (severe) obesity due to excess calories; D50.9 Iron deficiency anemia, unspecified; B97.89 Other viral agents as the cause of diseases classified elsewhere; B97.10 Unspecified enterovirus as the cause of diseases classified elsewhere; E11.65 Type 2 diabetes mellitus with hyperglycemia; Z86.718 Personal history of other venous thrombosis and embolism; G47.33 Obstructive sleep apnea (adult) (pediatric); G40.909 Epilepsy, unspecified, not intractable, without status epilepticus; K64.1 Second degree hemorrhoids; K64.2 Third degree hemorrhoids; Z79.899 Other long term (current) drug therapy; Z79.4 Long term (current) use of insulin; Z88.0 Allergy status to penicillin; Z88.1 Allergy status to other antibiotic agents; Z88.2 Allergy status to sulfonamides; Z88.8 Allergy status to other drugs, medicaments and biological substances; K21.9 Gastro-esophageal reflux disease without esophagitis; K58.8 Other irritable bowel syndrome; M54.5 Low back pain; F32.9 Major depressive disorder, single episode, unspecified; I44.0 Atrioventricular block, first degree; N18.9 Chronic kidney disease, unspecified; F41.9 Anxiety disorder, unspecified; M10.9 Gout, unspecified

== ENCOUNTER 2016-08-21 11:02 | Inpatient (IN) | payer MEDICARE, MEDICAID ==
[~2016-08-21] VITALS: Ht 170.2 cm; Wt 124.5 kg
[~2016-08-21 11:02] MED LIST changes: +VITA50003 PO
[2016-08-21] MEDS ORDERED: methylPREDNISolone INJ 125 MG/2 ML VIAL (J2930) IV ONE (12:15)
[2016-08-21] MEDS: IPRATROPIUM 0.5MG/ALBUTEROL 2.5MG INH SOL UD 3ML (DUONEB)(J7620) NEB PRN ×3 (12:20→12:37)
[2016-08-21 12:27] LABS: MEAN CORPUSCULAR HEMOGLOBIN 23.5 pg (27.0-33.0); MEAN CORPUSCULAR HGB CONC 27.7 g/dl (32.0-36.5); MEAN CORPUSCULAR VOLUME 84.7 fl (80.0-96.0); PLATELET COUNT, AUTOMATED 365 k/mm3 (150-450); RED CELL DISTRIBUTION WIDTH 19.6 % (11.5-14.5); WHITE BLOOD COUNT 15.4 K/mm3 (4.0-10.0)
[2016-08-21 12:30] LABS: ANION GAP 4 MEQ/L (8-16); BLOOD UREA NITROGEN 7 MG/DL (7-18); CARBON DIOXIDE LEVEL 34 MEQ/L (21-32); CHLORIDE LEVEL 100 MEQ/L (98-107); CREATININE FOR GFR 1.73 MG/DL (0.55-1.02); GLOMERULAR FILTRATION RATE 30.8 (>39); GLUCOSE, FASTING 395 MG/DL (83-110); POTASSIUM SERUM 4.6 MEQ/L (3.5-5.1); SODIUM LEVEL 138 MEQ/L (136-145)
--- NOTE | 2016-08-21 12:42 | REP ---
Clinical: Dyspnea and cough. Comparison: 08/05/2016. Findings: Cardiomegaly is appreciated along with indistinct pulmonary vasculature, and increased interstitial markings as well as bibasilar opacities and effusions (left greater than right). Findings are compatible with CHF and pulmonary edema. Right Cssrep-P-Orue with tip in the SVC. Two surgical clips identified in the left hemithorax. No pneumothorax. Impression: The above mentioned findings compatible with CHF and pulmonary edema. Differential diagnosis includes multifocal pneumonia. Signed by Ramos Chaparro MD 08/21/2016 12:34 P
[2016-08-21 12:44] LABS: ABG BASE EXCESS 2.2 (-2.0-2.0); ABG HCO3 29.9 MEQ/L (22.0-26.0); ABG PARTIAL PRESSURE O2 99.7 mmHg (75.0-100.0); ABG STANDARD HCO3 26.4 MEQ/L (22.0-26.0); ABG TOTAL CO2 31.8 MEQ/L (23.0-31.0); ABG pH (ARTERIAL) 7.298 UNITS (7.350-7.450)
[2016-08-21 12:46] LABS: ABG PARTIAL PRESSURE CO2 62.5 mmHg (35.0-45.0)
[2016-08-21 12:50] LABS: BANDS 18 % (< 11)
[2016-08-21 12:51] LABS: ANISOCYTOSIS 2+; POLYCHROMASIA 1+
[2016-08-21 12:54] LABS: DOHLE BODIES 1+
[2016-08-21 12:55] LABS: MICROCYTOSIS 1+; POIKILOCYTOSIS 1+
[2016-08-21] MEDS ORDERED: BISACODYL 10 MG SUPP PR PRN (13:45)
[2016-08-21] MEDS ORDERED: ACETAMINOPHEN TAB 650MG DOSE (2X325MG) PO PRN (13:45)
[2016-08-21] MEDS ORDERED: MORPHINE 2 MG/ML 1ML SYRINGE IV PRN (13:45)
[2016-08-21] MEDS ORDERED: guaiFENesin ER 600 MG TAB PO PRN (14:00)
[2016-08-21] MEDS ORDERED: SENOKOT S TAB PO PRN (14:00)
[2016-08-21] MEDS ORDERED: MOM 30ML SUSPENSION UDC PO PRN (14:00)
[2016-08-21] MEDS ORDERED: SCOPOLAMINE 1.5 MG TRANSDERMAL TOP PRN (14:00)
[2016-08-21] MEDS ORDERED: HALO0.052 TOP (14:09)
[2016-08-21] MEDS ORDERED: FERR32TA PO (14:11)
[2016-08-21] MEDS ORDERED: FUROSEMIDE 40 MG/4 ML VIAL (J1940) IV ONE (14:30)
[2016-08-21] MEDS ORDERED: GLUCAGON FOR INJ 1 MG VIAL (J1610) SC PRN (14:45)
[2016-08-21] MEDS ORDERED: GLUCOSE 4 GM CHEW TABLET PO PRN (14:45)
[2016-08-21] MEDS ORDERED: VANCOMYCIN HCL 750 MG, VIAL MATE ADAPTER 1 EACH in D5W 250 ML IV SCH (14:45)
[2016-08-21] MEDS ORDERED: DEXTROSE 50% 50 ML SYRINGE IV PRN (14:45)
--- NOTE | 2016-08-21 15:24 | PHACANCOPD ---
PHARMACY VANCOMYCIN DOSING Pt Demographics Demographics Patient Age:71 , Weight: , Gender: female Adjusted Body Weight Date: 08/21/16, Adjusted Body Weight: [86] Kg Events Past 24 Hours Events Past 24 Hours: YES: Change in CrCl, Elevation in WBC, NO: Dialysis, Diuretic Therapy, Fever, Pending Diagnostics, Pending Procedures, Other Vancomycin Vancomycin indication: possible healthcare pneumonia Vancomycin Target Ranges: 15-20 mcg/ml Vancomycin Load Y/N: No Load Dose Date Time Vancomycin Load Dose: Date: Time: Vancomycin Dose Date: 08/21/16. Current Vancomycin Dose: [1g IV q18h @16] Intermittent Dosing?: No Labs Labs Item Value Date Time Creatinine 1.73 MG/DL H 08/21/16 1129 White Blood Count 15.4 K/mm3 H 08/21/16 1130 Band Neutrophils 18 % H 08/21/16 1130 Micro Microbiology 08/21/16 Blood Culture, Received Pending Creatinine Clearance Date:08/21/16. Creatinine Clearance: [39 ml/min using adjusted BW]. Assessment and Plan Maintaining Current Dose?: Yes Reason for dose change: No Dose Change Pharmacist Note Pharmacist Note Date: 08/21/16. Pharmacist note: pt has been started on cefepime and vancomycin for possible healthcare associated pneumonia. She was last on vancomycin at our facility in May, I have started her on similar dosing of 1g IV q18h. SCr is elevated, baseline ~1.3 mg/dl. She does not have a Hx of MRSA. Currently her diuretics have been stopped. We will continue to monitor and order a trough as necessary. Christophe Peraza Pharm.D. August 21, 2016 15:24
[2016-08-21 15:33] LABS: ABG BASE EXCESS 7.8 (-2.0-2.0); ABG PARTIAL PRESSURE O2 52.5 mmHg (75.0-100.0); ABG STANDARD HCO3 31.2 MEQ/L (22.0-26.0)
[2016-08-21 15:41] LABS: ABG PARTIAL PRESSURE CO2 63.4 mmHg (35.0-45.0)
[2016-08-21 16:00] VITALS: BP 139/66
[2016-08-21] MEDS: IPRATROPIUM 0.5MG/ALBUTEROL 2.5MG INH SOL UD 3ML (DUONEB)(J7620) INH SCH ×2 (16:00→19:22)
[2016-08-21] MEDS ORDERED: PREGABALIN 100 MG CAP (LYRICA) PO SCH (16:00)
[2016-08-21] MEDS ORDERED: SPIRONOLACTONE 25 MG TAB PO SCH (17:00)
[2016-08-21] MEDS ORDERED: TORSEMIDE 20 MG TAB PO SCH (17:00)
[2016-08-21] MEDS ORDERED: HumaLOG INSULIN (NovoLOG) PER UNIT SC SCH ×2 (17:30→21:00)
[2016-08-21] MEDS: levETIRAcetam 250MG TABLET (KEPPRA) PO SCH ×2 (17:33→20:18)
[2016-08-21] MEDS: METOCLOPRAMIDE 10 MG TAB PO SCH ×2 (17:35→20:17)
[2016-08-21] MEDS: VANCOMYCIN HCL 1,000 MG, VIAL MATE ADAPTER 1 EACH in D5W 250 ML IV SCH (17:35)
[2016-08-21] MEDS: HumaLOG INSULIN (NovoLOG) PER UNIT SC SCH (18:51)
[2016-08-21] MEDS: NS 1,000 ML IV SCH (18:51)
[2016-08-21] MEDS: CEFEPIME HCL 1 GM in D5W MINI-BAG PLUS 50 ML IV SCH (18:52)
[2016-08-21] MEDS ORDERED: methylPREDNISolone INJ 125 MG/2 ML VIAL (J2930) IV SCH ×2 (20:00)
[2016-08-21] MEDS: DOCUSATE SODIUM 100 MG CAP PO SCH (20:17)
[2016-08-21] MEDS: LACTULOSE 20 GM/30 ML SYRUP UD PO SCH (20:17)
[2016-08-21] MEDS: SUCRALFATE 1 GM TAB PO SCH (20:17)
[2016-08-21] MEDS: methylPREDNISolone INJ 40 MG/1 ML VIAL (J2920) IV SCH (20:17)
[2016-08-21] MEDS: OMEPRAZOLE 20 MG CAP PO SCH (20:17)
[2016-08-21] MEDS: LEVEMIR (INSULIN DETEMIR) 1 UNITS/0.01ML SC SCH (20:46)
[2016-08-21] MEDS: HEPARIN SOD (PORCINE) 5000 UNITS/ML VIAL SC SCH (20:47)
[2016-08-21] MEDS ORDERED: BACLOFEN 10 MG TAB PO SCH (21:00)
--- NOTE | 2016-08-21 21:28 | HPE ---
DATE OF ADMISSION: 08/21/2016 PRIMARY CARE PHYSICIAN: Dr. Villalobos CHIEF COMPLAINT: Shortness of breath, lightheadedness, and being lethargic. HISTORY OF PRESENT ILLNESS: Ms. Stern is a 71-year-old female with multiple past medical history who was recently admitted to [facility] due to chronic obstructive pulmonary disease (COPD) exacerbation secondary to Enterovirus. Patient presented to emergency room (ER) again today due to experiencing dyspnea. Patient's ex- expressed that after patient was discharged from the hospital, patient went home. Patient usually is on 2 liters of oxygen. According to him, patient did not have appetite. Patient has chronic cough; however, he did not notice any sputum production. Patient did not have appetite and ate small sandwich and for dinner she had small amount of soup. Patient went to bed early. Patient wears continuous positive airway pressure (CPAP) with oxygen at night; however, patient had some chills and night sweats. In the morning, patient's took her temperature, and it was 98.2, which is abnormal for her, since her usual temperature is 96. Patient had woke up several times at night to go to the bathroom; however, patient could not make any urine. Patient became more drowsy and lethargic in the morning. Patient did not have appetite for breakfast. Patient's pulse oximetry in the morning was around 84-86 with oxygen on. Patient did not have any sick contacts.Community healthcare provider who visiting the patient this morning after checking he vitals asked the patient to come to the ER. PAST MEDICAL HISTORY: 1. COPD exacerbation secondary to rhinovirus enterovirus. 2. Insulin-dependent diabetes, uncontrolled. 3. Anemia. 4. COPD. 5. Respiratory failure and hypoxia. 6. Chronic iron deficiency anemia. 7. Diabetes. 8. Hypertension. 9. Morbidly obese. 10. Obstructive sleep apnea, on continuous positive airway pressure. 11. Seizure disorder. 12. 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 13. Chronic diastolic congestive heart failure. 14. History of arachnoiditis. 15. History of deep vein thrombosis (DVT) prophylaxis. Has inferior vena cava filter in place. 16. Irritable bowel syndrome. 17. Gastroesophageal reflux disease (GERD). 18. Migraine headache. 19. Depression. 20. Seasonal allergies. HOME MEDICATIONS: - Tylenol 650 mg by mouth every 8 as needed pain - ipratropium bromide/albuterol inhaler four times a day - Amitiza 24 mcg by mouth at bedtime - ammonium lactate one dose topical twice a day, apply to the leg and feet - aspirin 81 mg by mouth daily - baclofen 20 mg by mouth twice a day - bisoprolol fumarate 2.5 mg by mouth daily - colchicine 0.6 mg by mouth daily - cranberry 500 mg by mouth three times a day - docusate sodium 100 mg by mouth twice a day - vitamin D 5000 units by mouth daily - ferrous gluconate 324 mg by mouth daily - Fioricet/codeine 40/30 mg and one capsule by mouth three times a day as needed for headache - fluoxetine 20 mg by mouth daily - Mucinex 600 mg by mouth twice a day as needed congestion - NovoLog 16 units before meals - Levemir 150 units sublingual twice a day - lactulose 30 mL by mouth twice a day mixed with juice - Keppra 500 mg by mouth four times a day - Reglan 10 mg by mouth three times a day - milk of magnesia 30 mL by mouth daily as needed constipation - omeprazole 20 mg by mouth twice a day - Zofran 4 mg by mouth four times a day - Lyrica 100 mg by mouth three times a day - promethazine 25 mg by mouth before meals - scopolamine 1.5 mg by mouth topical every 72 hours as needed nausea - Senokot two tablets by mouth twice a day as needed constipation - Aldactone 25 mg by mouth twice a day - sucralfate 1 gram by mouth twice a day - torsemide 20 mg by mouth daily - Vagisil maximum strength one dose topical twice a day as needed itching PAST SURGICAL HISTORY: 1. Colonoscopy. 2. Inferior vena cava placement in 2016. 3. Right hip surgery. 4. Right knee surgery. 5. Hysterectomy. 6. Lung surgery. 7. Back surgery. 8. Left ankle surgery. 9. Tonsillectomy. 10. Central venous port placement, removed. SOCIAL HISTORY: Patient does not have a history of smoking or using tobacco products. Patient denies history of illicit drug use. Patient has history of alcohol. Patient lives with her ex-. Patient has no pets. Patient has not traveled outside of the [place]. FAMILY HISTORY: Patient has four brother and sisters who are healthy for their age. Patient has two children who are healthy for their age. ALLERGIES: 1. CEPHALOSPORIN causes hives. 2. CHLORPROMAZINE causes hives. 3. LORATADINE causes hives. 4. PENICILLIN causes hives. 5. PENTAZOCINE causes hives. 6. SULFA ANTIBIOTIC causes hives. 7. IODINE. 8. METHADONE. 9. FLUTICASONE. 10. LASIX. 11. SOLU-MEDROL. REVIEW OF SYSTEMS: Due to patient's being drowsy, I cannot collect the review of systems. PHYSICAL EXAMINATION: VITAL SIGNS: Pulse 90, respiratory rate 22, blood pressure 137/62, pulse oximetry 92 on 15 liters oxygen and non-rebreather. GENERAL APPEARANCE: Patient is drowsy. Patient was able to respond to vocal stimulus. HEENT: Normocephalic, atraumatic. Pupils are equal and reactive to light. Oral mucosa is moist. NECK: Jugular venous distention (JVD) cannot be appreciated due to extended neck. Soft, supple. No lymphadenopathy. No thyromegaly. HEART: Regular rate and rhythm. Normal S1, S2. ABDOMEN: Morbidly obese. Positive bowel sounds in all quadrants. No tenderness to palpation. LUNGS: Patient has scattered rhonchi at the base of the lung. Good air movement. EXTREMITIES: Patient has lower extremity edema. +2 pulses in both lower extremities. NEUROLOGIC: Cannot be obtained due to patient being drowsy. LABORATORY DATA: White blood cells 15.4, red blood cells 4.39, hemoglobin 10.3, hematocrit 37.2, MCV 84.7, MCH 23.5, MCHC 27.2, RDW 19.6, platelet count 365, neutrophil percentage 63, neutrophils 18, lymphocytes 11, monocytes 1, metamyelocytes 5, myelocytes 2. ABG: Bicarbonate 26.4, ABG pH 7.298, ABG pCO2 of 62.5, ABG pO2 of 99.7, ABG hCO2 of 29.9, ABG total CO2 of 31.8, ABG oxygen saturation 97.8, ABG base excess 2.2. Sodium 138, potassium 4.6, chloride 100, carbon dioxide 34, anion gap 4, BUN 7, creatinine 1.73, glomerular filtration rate 30.8, fasting glucose 395, lactic acid 3.4, calcium 8, total creatinine 98, CK-MB 1, CK-MB relative index 1.02, total protein less than 0.02. BNP 147. Blood culture is pending. Urine culture is pending. IMAGING: Chest x-ray, which shows congestive heart failure with pulmonary edema. Possible multifocal pneumonia. ASSESSMENT AND PLAN: 1. Sepsis. Patient qSOFA score indicated high risk for sepsis. this could be secondary to healthcare associated pneumonia vs UTI. chest xray indicated possible pneumonia. Also patient has elevated lactic acid. I have ordered urinalysis (UA), urine culture and blood culture which are pending at this time. due to possible health care associated pneumonia, I have started patient on vancomycin and cefepime. I also ordered sputum culture and Gram stain as well as urine Streptococcus pneumoniae and Legionella antigen. I have start patient on IV fluid. 2. Drowsiness: is possibly secondary to acute on chronic respiratory failure with hypoxia versus infection. Arterial blood gas (ABG) indicated respiratory acidosis. At this point, we have started the patient on CPAP with the oxygenation of 88-92%. Also started patient on Solu-Medrol 80 every 8 hours and breathing treatment. We will repeat the ABG in 2 hours after the CPAP. 3. Acute on chronic respiratory failure. Patient is on CPAP, Solu-Medrol and breathing treatment. Also, due to the possibility of healthcare-acquired pneumonia, I have started patient on vancomycin and cefepime. continue with breathing treatment. 4. Diastolic congestive heart failure. Patient's brain natriuretic peptide (BNP ) today is mildly elevated; however, I do not believe that patient is experiencing decompensated congestive heart failure. At home patient is on torsemide and spironolactone; however, we will hold these medications due to worsening renal function. 5. Anemia. This is possibly secondary to iron deficiency. Patient had colonoscopy done on 08/19/2016, which indicated non-thrombosed external hemorrhoid. No thrombosed internal hemorrhoid. Internal hemorrhoid prolapse with staining but spontaneously regressed to resting position, grade 2. At this time , patient does not have any active bleeding. We will continue patient on ferrous gluconate 324 mg by mouth daily. 5. Diabetes. At home, patient is on Levemir 150 units twice a day. Also sliding scale and will continue patient on consistent-carbohydrate diet. 6. Acute on chronic. kidney injury. Patient has been diagnosed with stage III kidney disease. This is possibly secondary to dehydration vs UTI. At home patient is on torsemide and spironolactone; however, we will hold these medications due to worsening renal function. 7. Hypothyroidism. Continue patient on Synthroid.. 8. Gastroesophageal reflux disease (GERD). We will continue patient on omeprazole and Carafate. 9. Chronic back pain, neuropathy. At home patient is on baclofen and Lyrica; however, due to drowsiness, I have held these medications. Patient is stable. 10. Depression. Will continue patient on Prozac. 11. Seizure disorder. Will continue patient on Keppra. 12. Deep vein thrombosis (DVT) prophylaxis. At this time will continue patient on heparin. 13. History of DVT. Patient is on IVC filter. My preceptor for this patient encounter was Dr. Paula Story. The preceptor was physically present in the building during the encounter and was fully available as needed. All aspects of the patient interview, examination, medical decision making process, and medical care plan development were reviewed and approved by the preceptor. The preceptor is aware and concurs with the plan as stated in the body of this note and will attest to such by his/her co-signature. JOSE R
[2016-08-21 22:00] VITALS: BP 136/68
[2016-08-21] MEDS ORDERED: FUROSEMIDE 100 MG/10 ML VIAL (J1940) IV ONE (23:00)
[2016-08-22] MEDS: methylPREDNISolone INJ 40 MG/1 ML VIAL (J2920) IV SCH (05:01)
[2016-08-22] MEDS: CEFEPIME HCL 1 GM in D5W MINI-BAG PLUS 50 ML IV SCH ×2 (05:01→17:21)
[2016-08-22] MEDS: HEPARIN SOD (PORCINE) 5000 UNITS/ML VIAL SC SCH ×3 (05:01→22:37)
[2016-08-22 06:00] VITALS: BP 125/68
[2016-08-22 06:50] LABS: MEAN CORPUSCULAR HEMOGLOBIN 23.7 pg (27.0-33.0); MEAN CORPUSCULAR HGB CONC 28.2 g/dl (32.0-36.5); MEAN CORPUSCULAR VOLUME 84.2 fl (80.0-96.0); PLATELET COUNT, AUTOMATED 356 k/mm3 (150-450); RED CELL DISTRIBUTION WIDTH 19.7 % (11.5-14.5); WHITE BLOOD COUNT 13.4 K/mm3 (4.0-10.0)
[2016-08-22] MEDS: IPRATROPIUM 0.5MG/ALBUTEROL 2.5MG INH SOL UD 3ML (DUONEB)(J7620) INH SCH ×4 (07:13→20:00)
[2016-08-22 07:14] LABS: ALBUMIN 2.4 GM/DL (3.2-5.2); ALBUMIN/GLOBULIN RATIO 0.6 (1.00-1.93); BILIRUBIN,TOTAL 0.6 MG/DL (0.2-1.0); CALCIUM LEVEL 8.2 MG/DL (8.8-10.2); CREATININE FOR GFR 1.68 MG/DL (0.55-1.02); GLOMERULAR FILTRATION RATE 31.9 (>39); MAGNESIUM LEVEL 2.5 MG/DL (1.8-2.4); POTASSIUM SERUM 4.5 MEQ/L (3.5-5.1); TOTAL PROTEIN 6.4 GM/DL (6.4-8.2)
[2016-08-22 07:21] LABS: BANDS 2 % (< 11); BASOPHILS 1 % (0-4)
[2016-08-22 07:22] LABS: ANISOCYTOSIS 2+
[2016-08-22 07:23] LABS: HYPOCHROMASIA 2+
[2016-08-22] MEDS: TIOTROPIUM INHALER/CAPSULE (SPIRIVA) INH SCH (08:00)
[2016-08-22] MEDS: LACTULOSE 20 GM/30 ML SYRUP UD PO SCH ×2 (08:44→22:37)
[2016-08-22] MEDS: HumaLOG INSULIN (NovoLOG) PER UNIT SC SCH ×3 (08:45→17:22)
[2016-08-22] MEDS: DOCUSATE SODIUM 100 MG CAP PO SCH ×2 (08:46→22:38)
[2016-08-22] MEDS: COLCHICINE 0.6 MG TAB PO SCH (08:46)
[2016-08-22] MEDS: LEVEMIR (INSULIN DETEMIR) 1 UNITS/0.01ML SC SCH ×2 (08:46→22:37)
[2016-08-22] MEDS: ASPIRIN 81 MG ENTERIC TAB PO SCH (08:47)
[2016-08-22] MEDS: SUCRALFATE 1 GM TAB PO SCH ×2 (08:47→22:38)
[2016-08-22] MEDS: FERROUS GLUCONATE 324 MG TAB PO SCH (08:47)
[2016-08-22] MEDS: levETIRAcetam 250MG TABLET (KEPPRA) PO SCH ×4 (08:47→22:38)
[2016-08-22] MEDS: BISOPROLOL FUMARATE 5 MG TAB PO SCH (08:48)
[2016-08-22] MEDS: METOCLOPRAMIDE 10 MG TAB PO SCH ×3 (08:48→22:38)
[2016-08-22] MEDS: OMEPRAZOLE 20 MG CAP PO SCH ×2 (08:48→22:38)
[2016-08-22] MEDS ORDERED: FUROSEMIDE 100 MG/10 ML VIAL (J1940) IV SCH (09:00)
[2016-08-22 10:01] LABS: ABG BASE EXCESS 5.6 (-2.0-2.0); ABG HCO3 30.9 MEQ/L (22.0-26.0); ABG STANDARD HCO3 29.1 MEQ/L (22.0-26.0); ABG TOTAL CO2 32.4 MEQ/L (23.0-31.0); ABG pH (ARTERIAL) 7.418 UNITS (7.350-7.450)
[2016-08-22 10:04] LABS: ABG PARTIAL PRESSURE O2 45.7 mmHg (75.0-100.0)
[2016-08-22] MEDS: VANCOMYCIN HCL 1,000 MG, VIAL MATE ADAPTER 1 EACH in D5W 250 ML IV SCH (10:35)
[2016-08-22] MEDS: NS 1,000 ML IV SCH (10:40)
[2016-08-22] MEDS: FLUoxetine 20 MG CAP PO SCH (12:25)
[2016-08-22 14:00] VITALS: BP 147/66
--- NOTE | 2016-08-22 15:34 | IPN ---
DATE: 08/22/2016 SUBJECTIVE: The patient complains of shortness of breath. This morning she tells me that she has felt this way even when she was discharged from the hospital the day before yesterday and she continued to feel that way at home and she is feeling that at the present time. She denies disassociate chest pain, lightheadedness or dizziness. OBJECTIVE: VITAL SIGNS: Temperature 96.8. She has been afebrile. Pulse 83, she has not been tachycardic. Respiratory rate 19. Blood pressure 125/68. Oxygen saturation, she is 92% in 2 liters nasal cannula when I am examining her. In general, she is a super morbidly obese elderly female lying in bed at a 30 degree angle. She does not appear to be in any acute distress but she does appear to be mildly tachypneic. HEENT: Cranial nerves II through XII are grossly intact. Difficult to assess for any elevation in central venous pressure. CARDIOVASCULAR: S1, S2 but distal secondary to body habitus. RESPIRATORY: Fairly good air movement without wheezes or rales but distal secondary to body habitus. ABDOMEN: Grossly obese. Bowel sounds present. The abdomen is soft. EXTREMITIES: No clubbing, cyanosis. She has some mild bilateral edema. LABORATORY STUDIES: WBC 13.4, down from 15.4, hemoglobin 9.8, hematocrit 34.8, platelet count 356. Arterial blood gas yesterday revealed a pH of 7.3, pCO2 is 63.4, pO2 52.5. Chemistry panel: Sodium 135, potassium 4.5, chloride 100, bicarbonate 30, BUN 18, creatinine 1.6. Fasting glucose 448. Lactic acidosis 4.9. Microbiology: Blood cultures are pending. Urine culture is pending. Imaging: The patient had a chest x-ray that revealed pulmonary edema and congestive heart failure versus multifocal pneumonia. ASSESSMENT/PLAN: This is a 71-year-old female re-admitted shortness of breath. PROBLEMS: 1. Shortness of breath: There is concern for a potential health care associated pneumonia and as such the patient has been started on empiric broad-spectrum antibiotics. I will continue to do some followup of her cultures. Given that the former congestive heart failure pattern, will discontinue IV fluids and consider diuresis. I do not suspect COPD decompensation and as such, I will actually discontinue the IV steroids started in the emergency room as I feel that these are only affecting her adversely with hyperglycemia. I suspect a picolinium obesity hypoventilation syndrome and will discuss further with Dr. Guzman as the patient normally follows with Dr. Del Cid of pulmonary. 2. Insulin dependent diabetes: She is on sliding scale insulin withstanding high doses. 3. Gout: She is on colchicine. 4. Seizure disorder: She is on Keppra. 5. Hypertension: She is on bisoprolol. 6. Gastroesophageal reflux disease: She is on omeprazole and Carafate. 7. Depression: The patient is on Prozac. I have concerns that anxiety may be contributing to her shortness of breath as well and as such, I will consult Dr. Rutledge of psychiatry. 8. Deep venous thrombosis: The patient is status post IVC filter that may be a contributing factor to her lower extremity edema. 9. Deep venous thrombosis (DVT) prophylaxis: The patient is on heparin. DISPOSITION: Will continue to monitor the patient closely. MTDD
[2016-08-22] MEDS: guaiFENesin ER 600 MG TAB PO SCH ×2 (15:48→22:38)
--- NOTE | 2016-08-22 15:52 | CR ---
DATE OF CONSULTATION: 08/22/2016 PULMONARY SERVICE NOTE Patient is a 71-year-old female known to our practice. She follows with Dr. Del Cid in the office. Her last office visit was 01/2016. She has moderate persistent asthma, restrictive lung disease (secondary to obesity and nonfunctioning right hemidiaphragm status post plication) history of deep venous thrombosis (DVT), status post inferior vena caval filter, complex obstructive sleep apnea syndrome on bilevel pressure therapy since 2006. She was discharged yesterday from the hospital after treatment of respiratory symptoms felt related to a rhinovirus. She was re-admitted with increasing dyspnea, given diuretics in the emergency department to which she did respond. She remains dyspneic, using averaged volume assisted pressure support (AVAPS). Complicating past medical histories include diastolic dysfunction on echocardiography, chronic kidney disease, morbid obesity, diabetes mellitus and chronic pain. PHYSICAL EXAMINATION: She is awake, alert and conversant, comfortable wearing AVAPS. Temperature is 96.8, pulse rate 83, respirations 20, blood pressure 125/68. With observation, there is some abdominal paradox during respiratory efforts. HEENT: Oral and nasal mucosa are dry. Her neck is supple. I am unable to appreciate jugular veins, but her neck is quite arzola. There is no meningismus. Heart sounds are distant but regular. Breath sounds are coarse bilaterally with large airway sounds. Decreased breath sounds in the bases and accessory muscles are engaged during conversation. Abdomen is morbidly obese with no palpable mass. Extremities show edema, chronic skin changes. Pulses are diminished but palpable. Extensive laboratory studies and x-rays were reviewed. IMPRESSION: 1. Moderate persistent asthma (she does not have chronic obstructive pulmonary disease). Most recent spirometric measures indicate a forced vital capacity of 32% of predicted, FEV-1 of 37% of predicted. 2. Malclearance of secretions. 3. Obesity hypoventilation syndrome. 4. Diaphragm dysfunction status post plication, 2006. 5. Complex obstructive sleep apnea syndrome (last testing 2006). 6. Deep venous thrombosis (DVT), (no pulmonary embolism) status post inferior vena caval filter placement, December 2014 RECOMMENDATIONS: 1. I would continue the use of average volume assist pressure support for symptom relief. She will need to be off for meals and as tolerated. 2. I would deliver nebulized therapy, either through the averaged volume assisted pressure (AVAP) circuit or using EzPAP. 3. Will initiate Mucinex for mucolytic therapy. 4. Reassess diaphragm function with a sniff test when able. 5. Caution with IV fluids due to the diastolic heart failure and chronic kidney disease. 6. Caution with narcotics and sedation is recommended given the obesity hypoventilation syndrome and history of hypercarbia. 7. Reconditioning as much as able. Thank you for allowing me to consult in the care of this patient. If there are questions, please do not hesitate to contact me.
--- NOTE | 2016-08-22 19:22 | MHIPNPDOC ---
[facility] Progress Note Progress Note DATE OF SERVICE: 08/22/16 Evaluated 71 year old female with history of COPD who was discharged two days ago from the Hospital and came back with COPD exacerbation. Patient has multiple medical problems. She was evaluated in her bed, wearing a mask, in respiratory distress. It's hard for her to communicate with this author, but she was able to do it. She denied symptoms of anxiety or panic attacks except when she can't breath. She denies feeling a racing heart, she denies getting sweaty or shaky hands, she denies having chest tighteners, except when she gets a COPD exacerbation. She denies insomnia or hypersomnia. She states that when she was discharged home she had very poor appetite, but still was able to eat. She denies headaches or muscle pain, denies being constantly worried, denies being shy or nervous around people, denies headaches, denies tingling in her hands, except when she feels that she can't breathe. The patient does not have Generalized anxiety disorder but her levels of anxiety become extremely high when she is having problems breathing, which is understandable. She has symptoms that are congruent with panic attacks but these are secondary to her medical condition and only when she feels that she can't breathe. Because she has a seizure disorder, it's hard to prescribe her an SSRI, because these medications predispose people to have seizures, but if the seizures are well controlled, she could use Venlafaxine 150 mgs PO QD and slowly increase it to 300 mgs. PO QD. Must be careful not to administer Tramadol for pain because interactions between Tramadol and SSRI's or any other type of antidepressants . She shouldn't receive benzodiazepines because she has COPD. DIAGNOSES: 1. 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 Vital Signs Vital Signs Date Time Temp Pulse Resp B/P (MAP) Pulse Ox O2 Delivery O2 Flow Rate FiO2 08/22/16 14:00 96.7 83 20 147/66 (93) 88 NIPPV (BIPAP/CPAP) 2.0 08/21/16 13:56 35 Laboratory Data 24H Labs Laboratory Tests 2 08/21/16 20:00: Bedside Glucose (Misc Panel) 461H 08/22/16 00:47: Bedside Glucose (Misc Panel) 455H 08/22/16 06:35: Neutrophils 83H, Band Neutrophils 2, Lymphocytes (Manual) 7L, Monocytes (Manual ) 5, Basophils (Manual) 1, Atypical Lymphocytes 2, Platelet Estimate NORMAL, Hypochromasia 2+, Basophilic Stippling 1+, Anisocytosis 2+, Anion Gap 5L, Glomerular Filtration Rate 31.9L, Blood Urea Nitrogen 18#, Creatinine 1.68H, Sodium Level 135L, Potassium Level 4.5, Chloride Level 100, Carbon Dioxide Level 30, Calcium Level 8.2L, Aspartate Amino Transf (AST/SGOT) 31, Alanine Aminotransferase (ALT/SGPT) 77, Alkaline Phosphatase 90, Total Bilirubin 0.6, Total Protein 6.4, Albumin 2.4L, Magnesium Level 2.5H, Albumin/Globulin Ratio 0.60L 08/22/16 09:48: Blood Gas Bicarbonate Standard 29.1H, Arterial Blood pH 7.418, Arterial Blood Partial Pressure CO2 49.0H, Arterial Blood Partial Pressure O2 45.7*L, Arterial Blood Total CO2 32.4H, Arterial Blood HCO3 30.9H, Arterial Blood Base Excess 5.6H, Arterial Blood Oxygen Saturation 78.7L 08/22/16 11:22: Bedside Glucose (Misc Panel) 466H 08/22/16 18:28: CBC/BMP Laboratory Tests 08/22/16 06:35 Red Blood Count 4.13, Mean Corpuscular Volume 84.2, Mean Corpuscular Hemoglobin 23.7 L, Mean Corpuscular Hemoglobin Concent 28.2 L, Red Cell Distribution Width 19.7 H, Calcium Level 8.2 L, Aspartate Amino Transf (AST/SGOT) 31, Alanine Aminotransferase (ALT/SGPT) 77, Alkaline Phosphatase 90, Total Bilirubin 0.6, Total Protein 6.4, Albumin 2.4 L Current Medications Current Medications Acetaminophen (Tylenol Tab) 650 mg Q4HP PRN PO MILD PAIN OR FEVER; Start at 13:45; Stop 09/20/16 at 13:44 Albuterol/ Ipratropium (Duoneb (Ipr 0.5mg/Alb 2.5mg)) 3 ml Q20M PRN NEB SHORTNESS OF BREATH Last administered on 08/21/16t 12:37; Start 08/21/16 at 12: 15; Stop 08/21/16 at 12:37; Status DC Albuterol/ Ipratropium (Duoneb (Ipr 0.5mg/Alb 2.5mg)) 3 ml RQID INH Last administered on 08/22/16 15:11; Start 08/21/16 at 16:00; Stop 09/20/16 at 15:59 Aspirin (Ecotrin) 81 mg DAILY PO Last administered on 08/22/16 08:47; Start at 09:00; Stop 09/21/16 at 08:59 Baclofen (Lioresal) 20 mg BID PO ; Start 08/21/16 at 21:00; Stop 08/21/16 at 21: 00; Status DC Bisacodyl (Dulcolax Suppository) 10 mg DAILYPRN PRN PA CONSTIPATION; Start at 13:45; Stop 09/20/16 at 13:44 Bisoprolol Fumarate (Zebeta) 2.5 mg DAILY PO Last administered on 08/22/16 08: 48; Start 08/22/16 at 09:00; Stop 09/21/16 at 08:59 Cefepime HCl 1 gm/ Dextrose 50 ml @ 100 mls/hr Q12H IV Last administered on 17:21; Start 08/21/16 at 17:00; Stop 08/28/16 at 16:59 Colchicine (Colcrys) 0.6 mg DAILY PO Last administered on 08/22/16 08:46; Start 08/22/16 at 09:00; Stop 09/21/16 at 08:59 Dextrose (Dextrose 50%) 25 ml ASDIRECTED PRN IV SEE LABEL COMMENTS; Start 08/21 at 14:45; Stop 09/20/16 at 14:44 Docusate Sodium (Colace) 100 mg BID PO Last administered on 08/22/16 08:46; Start 08/21/16 at 21:00; Stop 09/20/16 at 20:59 Ferrous Gluconate (Fergon) 324 mg DAILY PO Last administered on 08/22/16 08:47 ; Start 08/22/16 at 09:00; Stop 09/21/16 at 08:59 Fluoxetine HCl (PROzac) 20 mg DAILY@1200 PO Last administered on 08/22/16 12: 25; Start 08/22/16 at 12:00; Stop 09/21/16 at 11:59 Furosemide (LASIX injection) 60 mg BID@ IV ; Start 08/22/16 at 09:00; Stop 08/22/16 at 09:00; Status DC Glucagon (Glucagon) 1 mg ASDIRECTED PRN SC SEE LABEL COMMENTS; Start 08/21/16 at 14:45; Stop 09/20/16 at 14:44 Glucose (Glucose) 16 GM ASDIRECTED PRN PO SEE LABEL COMMENTS; Start 08/21/16 at 14:45; Stop 09/20/16 at 14:44 Guaifenesin (Mucinex Tab Er) 600 mg BID PO Last administered on 08/22/16 15:48 ; Start 08/22/16 at 09:00; Stop 09/21/16 at 08:59 Guaifenesin (Mucinex Tab Er) 600 mg BID PRN PO CONGESTION; Start 08/21/16 at 14 :00; Stop 08/22/16 at 12:19; Status DC Heparin Sodium (Heparin (Flush)) 500 units ASDIRECTED PRN IV SEE LABEL COMMENTS ; Start 08/22/16 at 18:15; Stop 09/21/16 at 18:14 Heparin Sodium (Heparin (Flush)) 500 units DAILY IV ; Start 08/23/16 at 09:00; Stop 09/22/16 at 08:59 Heparin Sodium (Porcine) (Heparin) 5,000 units Q8H SC Last administered on 08/22 15:48; Start 08/21/16 at 22:00; Stop 08/26/16 at 21:59 Home Med (Med Rec Complete!) ASDIRECTED XX ; Start 08/21/16 at 14:15; Stop at 14:15; Status DC Insulin Detemir (Levemir Insulin) 150 units BID SC Last administered on 08:46; Start 08/21/16 at 21:00; Stop 09/20/16 at 20:59 Insulin Human Lispro (HumaLOG INSULIN) 16 units AC SC Last administered on 08/22 17:22; Start 08/21/16 at 17:30; Stop 09/20/16 at 17:29 Insulin Human Lispro (HumaLOG INSULIN) SEE PROTOCOL TABLE AC SC ; Start at 17:30; Stop 08/21/16 at 18:44; Status DC Insulin Human Lispro (HumaLOG INSULIN) SEE PROTOCOL TABLE QHS SC ; Start at 21:00; Stop 08/21/16 at 21:00; Status DC Lactulose (Cephulac) 30 ml BID PO Last administered on 08/22/16 08:44; Start 08/21/16 at 21:00; Stop 09/20/16 at 20:59 Levetiracetam (Keppra) 500 mg QID PO Last administered on 08/22/16 17:21; Start 08/21/16 at 17:00; Stop 09/20/16 at 16:59 Magnesium Hydroxide (Milk Of Magnesia) 30 ml DAILY PRN PO CONSTIPATION; Start 08/21/16 at 14:00; Stop 09/20/16 at 13:59 Methylprednisolone (SOLU medrol) 40 mg Q8H IV Last administered on 08/22/16 05 :01; Start 08/21/16 at 20:00; Stop 08/22/16 at 10:09; Status DC Methylprednisolone (SOLUmedrol) 80 mg Q8H IV ; Start 08/21/16 at 20:00; Stop at 20:00; Status DC Methylprednisolone (SOLUmedrol) 80 mg Q8H IV ; Start 08/21/16 at 20:00; Stop at 20:00; Status DC Metoclopramide HCl (Reglan) 10 mg TID PO Last administered on 08/22/16 15:48; Start 08/21/16 at 16:00; Stop 09/20/16 at 15:59 Morphine Sulfate (Morphine Sulfate Inj) 2 mg Q2HP PRN IV SEVERE PAIN (PS 8-10) ; Start 08/21/16 at 13:45; Stop 08/28/16 at 13:44 Omeprazole (PriLOSEC) 20 mg BID PO Last administered on 08/22/16 08:48; Start 08/21/16 at 21:00; Stop 09/20/16 at 20:59 Ondansetron HCl (ZOFRAN INJection) 4 mg Q6HP PRN IV NAUSEA OR VOMITING; Start 08/21/16 at 13:45; Stop 09/20/16 at 13:44 Oxycodone/ Acetaminophen (Percocet 5mg/ 325mg Tablet) 1 tab Q4HP PRN PO MODERATE PAIN (PS 5-7); Start 08/21/16 at 13:45; Stop 08/28/16 at 13:44 Pregabalin (Lyrica) 100 mg TID PO ; Start 08/21/16 at 16:00; Stop 08/21/16 at 16 :00; Status DC Scopolamine (Transderm-Scop) 1.5 mg Q72H PRN TOP NAUSEA; Start 08/21/16 at 14: 00; Stop 09/20/16 at 13:59 Senna/Docusate Sodium (Senokot S) 2 tab BID PRN PO CONSTIPATION; Start at 14:00; Stop 09/20/16 at 13:59 Sodium Chloride 1,000 ml @ 60 mls/hr [id number] IV Last administered on 18:51; Start 08/21/16 at 18:00; Stop 08/22/16 at 12:23; Status DC Sodium Chloride (Saline Lock Flush) 10 ml ASDIRECTED PRN IV SEE LABEL COMMENTS ; Start 08/22/16 at 18:15; Stop 09/21/16 at 18:14 Sodium Chloride (Saline Lock Flush) 10 ml DAILY IV ; Start 08/23/16 at 09:00; Stop 09/22/16 at 08:59 Spironolactone (Aldactone) 25 mg BID@0900,1700 PO ; Start 08/21/16 at 17:00; Stop 08/21/16 at 17:00; Status DC Sucralfate (Carafate) 1 gm BID PO Last administered on 08/22/16 08:47; Start 08/21/16 at 21:00; Stop 09/20/16 at 20:59 Tiotropium Nakina (Spiriva Handihaler) 1 inhalation DAILY@08 INH ; Start at 08:00; Stop 09/21/16 at 07:59 Torsemide (Demadex) 20 mg BID@0900,1700 PO ; Start 08/21/16 at 17:00; Stop 08/21 at 17:00; Status DC Vancomycin HCl 750 mg/IV Miscellaneous Supplies 1 each/ Dextrose 275 ml @ 275 mls/hr Q8H IV ; Start 08/21/16 at 14:45; Stop 08/28/16 at 14:44; Status UNV Vancomycin HCl 1000 mg/IV Miscellaneous Supplies 1 each/ Dextrose 270 ml @ 270 mls/hr Q18H IV Last administered on 08/22/16t 10:35; Start 08/21/16 at 16:00; Stop 08/28/16 at 15:59 Allergies Coded Allergies: Cephalosporins (Verified Allergy, Intermediate, KEFLEX - HIVES, 08/05/16) Chlorpromazine (Verified Allergy, Intermediate, HIVES, 08/05/16) Loratadine (Verified Allergy, Intermediate, HIVES, 08/05/16) Penicillins (Verified Allergy, Intermediate, HIVES, 08/05/16) Pentazocine (Verified Allergy, Intermediate, HIVES, 08/05/16) Sulfa Antibiotics (Unverified Allergy, Intermediate, HIVES, 08/05/16) Iodine (Verified Allergy, Unknown, 08/05/16) Methadone (Verified Allergy, Unknown, 08/05/16) Fluticasone (Verified Adverse Reaction, Mild, THRUSH, 08/05/16) Latex (Verified Adverse Reaction, Mild, RISK, 08/05/16) Salmeterol (Verified Adverse Reaction, Mild, THRUSH, 08/05/16) MICK SCHREIBER MD August 22, 2016 19:22
--- NOTE | 2016-08-22 19:52 | ECGEPIP ---
Stationary ECG Study [facility] - ED Test Date: 2016-08-21 Pat Name: SHIVANI PAYNE Department: Room: - Gender: F Organisational Psychologist: VIVIANE : 1945 Requested By: Wyatt Bennett Order Number: [id number] Reading MD: Akiko Meadows Measurements Intervals Gurley Rate: 89 P: VT: 0 QRS: 17 QRSD: 89 T: 52 QT: 374 QTc: 456 Interpretive Statements SINUS RHYTHM LOW QRS VOLTAGE IN PRECORDIAL LEADS ABNORMAL RHYTHM ECG DELAYED R PROGRESSION NSTTW ABNORMALITY LOW VOLTAGE LIMB SIMILAR 08/06/16 Electronically Signed On 08-22-2016 19:52:00 EDT by Akiko Meadows
[2016-08-22 22:00] VITALS: BP 132/59
[2016-08-23] MEDS: VANCOMYCIN HCL 1,000 MG, VIAL MATE ADAPTER 1 EACH in D5W 250 ML IV SCH ×2 (03:55→22:41)
[2016-08-23] MEDS: CEFEPIME HCL 1 GM in D5W MINI-BAG PLUS 50 ML IV SCH ×2 (05:02→16:33)
[2016-08-23] MEDS: HEPARIN SOD (PORCINE) 5000 UNITS/ML VIAL SC SCH ×3 (05:02→20:19)
[2016-08-23 06:00] VITALS: BP 143/77
[2016-08-23 06:48] LABS: BASO % 0.2 % (0.0-1.0); EOS % 0.1 % (0.0-3.0); LARGE UNSTAINED CELL # 0.2 K/mm3 (0.0-0.4); LARGE UNSTAINED CELL % 1.7 % (0.0-4.0); LYMPH # 1.8 K/mm3 (1.5-4.5); LYMPH % 14.5 % (24.0-44.0); MEAN CORPUSCULAR HEMOGLOBIN 23.2 pg (27.0-33.0); MEAN CORPUSCULAR HGB CONC 27.7 g/dl (32.0-36.5); MEAN CORPUSCULAR VOLUME 84.1 fl (80.0-96.0); MONO # 0.7 K/mm3 (0.0-0.8); MONO % 6.4 % (0.0-5.0); NEUTROPHILS # 8.6 K/mm3 (1.8-7.7); NEUTROPHILS % 77.1 % (36.0-66.0); PLATELET COUNT, AUTOMATED 384 k/mm3 (150-450); RED CELL DISTRIBUTION WIDTH 19.6 % (11.5-14.5); WHITE BLOOD COUNT 11.1 K/mm3 (4.0-10.0)
[2016-08-23 06:54] LABS: ALBUMIN 2.5 GM/DL (3.2-5.2); ALBUMIN/GLOBULIN RATIO 0.63 (1.00-1.93); BILIRUBIN,TOTAL 0.4 MG/DL (0.2-1.0); CALCIUM LEVEL 8.4 MG/DL (8.8-10.2); CREATININE FOR GFR 1.62 MG/DL (0.55-1.02); GLOMERULAR FILTRATION RATE 33.3 (>39); MAGNESIUM LEVEL 2.6 MG/DL (1.8-2.4); POTASSIUM SERUM 4.1 MEQ/L (3.5-5.1); TOTAL PROTEIN 6.5 GM/DL (6.4-8.2)
[2016-08-23] MEDS: TIOTROPIUM INHALER/CAPSULE (SPIRIVA) INH SCH (07:29)
[2016-08-23] MEDS: IPRATROPIUM 0.5MG/ALBUTEROL 2.5MG INH SOL UD 3ML (DUONEB)(J7620) INH SCH ×4 (07:29→20:33)
[2016-08-23] MEDS: levETIRAcetam 250MG TABLET (KEPPRA) PO SCH ×4 (08:18→20:18)
[2016-08-23] MEDS: COLCHICINE 0.6 MG TAB PO SCH (08:18)
[2016-08-23] MEDS: ASPIRIN 81 MG ENTERIC TAB PO SCH (08:18)
[2016-08-23] MEDS: LACTULOSE 20 GM/30 ML SYRUP UD PO SCH ×2 (08:18→20:19)
[2016-08-23] MEDS: OMEPRAZOLE 20 MG CAP PO SCH ×2 (08:19→20:19)
[2016-08-23] MEDS: guaiFENesin ER 600 MG TAB PO SCH ×2 (08:19→20:18)
[2016-08-23] MEDS: HumaLOG INSULIN (NovoLOG) PER UNIT SC SCH ×2 (08:20→12:33)
[2016-08-23] MEDS: METOCLOPRAMIDE 10 MG TAB PO SCH ×3 (08:20→20:19)
[2016-08-23] MEDS: DOCUSATE SODIUM 100 MG CAP PO SCH ×2 (08:20→20:18)
[2016-08-23] MEDS: BISOPROLOL FUMARATE 5 MG TAB PO SCH (08:20)
[2016-08-23] MEDS: FERROUS GLUCONATE 324 MG TAB PO SCH (08:20)
[2016-08-23] MEDS: LEVEMIR (INSULIN DETEMIR) 1 UNITS/0.01ML SC SCH (08:21)
[2016-08-23] MEDS: SODIUM CHLORIDE 0.9% INJ 10 ML SYR IV SCH (08:21)
[2016-08-23] MEDS: SUCRALFATE 1 GM TAB PO SCH ×2 (08:26→20:19)
[2016-08-23] MEDS ORDERED: ALTEPLASE 2 MG/2 ML VIAL (J2997 PER 1MG) As Ordered ONE (10:38)
--- NOTE | 2016-08-23 11:37 | PHACANCOPD ---
PHARMACY VANCOMYCIN DOSING Pt Demographics Demographics Patient Age:71 , Weight:133.800 , Gender: female Adjusted Body Weight Date: 08/21/16, Adjusted Body Weight: [86] Kg Events Past 24 Hours Events Past 24 Hours: NO: Dialysis, Diuretic Therapy, Change in CrCl, Fever, Elevation in WBC, Pending Diagnostics, Pending Procedures, Other Vancomycin Vancomycin indication: possible healthcare pneumonia Vancomycin Target Ranges: 15-20 mcg/ml Vancomycin Load Y/N: No Load Dose Date Time Vancomycin Load Dose: Date: Time: Vancomycin Dose Date: 08/21/16. Current Vancomycin Dose: [1g IV q18h @16] Intermittent Dosing?: No Labs Labs Item Value Date Time White Blood Count 11.1 K/mm3 H 08/23/16 0539 White Blood Count 13.4 K/mm3 H 08/22/16 0635 Creatinine 1.68 MG/DL H 08/22/16 0635 Creatinine 1.62 MG/DL H 08/23/16 0539 Vital Signs Label Value Date Time Patient Temperature 97.8 degrees F 08/23/16 0600 Temperature Source Tympanic 08/23/16 0600 Patient Temperature 98.0 degrees F 08/22/16 2200 Temperature Source Core 08/22/16 2200 Micro Microbiology 08/21/16 Blood Culture - Preliminary, Resulted No growth after 24 hours . All specim... 08/21/16 Blood Culture - Preliminary, Resulted No growth after 24 hours . All specim... 08/22/16 Gram Stain, Ordered Pending 08/22/16 Sputum Culture, Ordered Pending 08/21/16 Urine Culture - Final, Complete Pseudomonas Aeruginosa Creatinine Clearance Date:08/21/16. Creatinine Clearance: [39 ml/min using adjusted BW]. Assessment and Plan Maintaining Current Dose?: Yes Reason for dose change: No Dose Change, Other Pharmacist Note Pharmacist Note 08/23/16: Pt has received 3 doses of Vanco. and SCr is remaining stable. Ordered trough at 2100 before next dose to see where pt is at. Will adjust dose as necessary based on results. Date: 08/21/16. Pharmacist note: pt has been started on cefepime and vancomycin for possible healthcare associated pneumonia. She was last on vancomycin at our facility in May, I have started her on similar dosing of 1g IV q18h. SCr is elevated, baseline ~1.3 mg/dl. She does not have a Hx of MRSA. Currently her diuretics have been stopped. We will continue to monitor and order a trough as necessary. EMMIE MUNROE PHARMAC[facility] August 23, 2016 11:35
[2016-08-23] MEDS: FLUoxetine 20 MG CAP PO SCH (12:33)
[2016-08-23 14:00] VITALS: BP 178/78
--- NOTE | 2016-08-23 14:17 | REP ---
Fluoroscopic sniff test: Two spot views. History: Status post right diaphragmatic location. Difficulty breathing. Findings: 1 minute 46 seconds of fluoroscopy time was utilized. As the patient does not stand, she was placed seated in a the fluoroscopy chair and frontal fluoroscopy is performed. Sniff test fluoroscopy is performed before and after the patient was placed on the AVAPS machine. The right hemidiaphragm shows decreased amplitude but normal direction of motion with sniffing. There are granulomatous calcifications in the right hilus and right lung base. The left diaphragm is somewhat less than optimally seen due to overlying abdominal skin contour. The left hemidiaphragm appears to move in the normal direction as well with sniffing. No difference was observed before or after the AVAPS was applied. Impression: No evidence of paradoxical diaphragmatic motion on either side. Somewhat decreased diaphragmatic movement amplitude. Signed by Hua Wang MD 08/23/2016 02:34 P
--- NOTE | 2016-08-23 19:16 | IPN ---
DATE: 08/23/2016 SUBJECTIVE: Ms. Stern is a 71-year-old female who was seen and examined at the bedside. The patient denies chest pain, orthopnea or paroxysmal nocturnal dyspnea (PND). However, the patient continued to feel dyspnea. The patient is on AVAP. The patient has been seen by Dr. Guzman. Appreciate Dr. Guzman's recommendations. The patient denies nausea or vomiting. OBJECTIVE: VITAL SIGNS: Temperature 97.8, pulse 79, respiratory rate 18, blood pressure 143/77. Pulse oximetry 95 on 2 liters nasal cannula. Total intake from yesterday 1,500 mL. Total output 650 mL. GENERAL APPEARANCE: The patient was laying in bed. On the AVAP. The patient was awake, alert and oriented to time, place and person. HEENT: Normocephalic, atraumatic. Pupils are equal and reactive to light. Oral mucosa is moist. NECK: Soft, supple. No lymphadenopathy, no thyromegaly. HEART: Distant heart sounds. Normal S1, S2. RESPIRATORY: The patient has distant lung sounds possibly secondary to obesity, however, the patient has no wheezing or rales, or rhonchi. ABDOMEN: Morbidly obese. Soft to palpation. Normal bowel sounds in all quadrants. EXTREMITIES: No clubbing, cyanosis. The patient has mild lower edema. LABORATORY DATA: WBC 11.1, RBC 4.04, hemoglobin 9.4, hematocrit 34, MCV 84.1, MCH 23.2, MCHC 27.7, RDW 19.6, platelet count 384, neutrophil percentage 77.1, lymphocyte percentage 14.5, monocyte percentage 6.4, eosinophil percentage 0.1, basophil percentage 0.2, leucocyte percentage 1.7. Sodium 137, potassium 4.1, chloride 99, carbon dioxide 32, anion gap 9, BUN 27, creatinine 1.62. GFR 33.3, fasting glucose 342, calcium 8.4, magnesium 2.6, total BUN 0.4, AST 21, ALT 63, alkaline phosphatase 85, total protein 6.5, albumin 2.5. ASSESSMENT AND PLAN: 1. Shortness of breath. Due to the concern for potential healthcare associated pneumonia, at this point we will continue the patient on vancomycin and cefepime. Also other possibilities include moderate persistent asthma. The patient has been seen by Dr. Guzman. Appreciate Dr. Guzman's recommendation. Based on Dr. Guzman's note, the patient does not have chronic obstructive pulmonary disease (COPD) and patient has forced FEC of 32% of predicted and FEV1 of 37% of predicted. The patient also has malclearance of secretions as well as obesity, hyperventilation syndrome. 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 At this point we will continue the patient on AVAP. Dr. Guzman has initiated Mucinex for mucolytic therapy. The patient's diaphragm function will be reassessed with a sniff test when able. 2. Insulin dependent diabetes. We will continue the patient on sliding scale with high dosage. 3. Gout. The patient is on colchicine. 4. Seizure. The patient on Keppra. 5. Hypertension. The patient is on bisoprolol. 6. Gastroesophageal reflux disease (GERD). The patient also on omeprazole and Carafate. 7. Depression. The patient is on Prozac. 8. 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 The patient has been seen by psychiatrist who diagnosed the patient with panic attacks secondary to medical condition. At this time the patient is on SSRI, Prozac and no side effects has been noticed. However, the recommendation is venlafaxine (SNRI). At this time, we will continue with the current medication. 9. Deep venous thrombosis (DVT) prophylaxis. The patient is on heparin. My preceptor for this patient encounter was Dr. Essie Duran. The preceptor was physically present in the building during the encounter and was fully available. As needed, all aspects of the patient interview, examination, medical decision making process, and medical care plan development were reviewed and approved by the preceptor. The preceptor is aware and concurs with the plan as stated in the body of this note and will attest to such by his/her cosignature.
[2016-08-23] MEDS ORDERED: LEVEMIR (INSULIN DETEMIR) 1 UNITS/0.01ML SC ONE (20:00)
[2016-08-23] MEDS: ONDANSETRON 4MG/2ML VIAL (J2405) IV PRN (20:19)
--- NOTE | 2016-08-23 21:32 | PHACANCOPD ---
PHARMACY VANCOMYCIN DOSING Pt Demographics Demographics Patient Age:71 , Weight:133.800 , Gender: female Adjusted Body Weight Date: 08/21/16, Adjusted Body Weight: [86] Kg Events Past 24 Hours Events Past 24 Hours: NO: Dialysis, Diuretic Therapy, Change in CrCl, Fever, Elevation in WBC, Pending Diagnostics, Pending Procedures, Other Vancomycin Vancomycin indication: possible healthcare pneumonia Vancomycin Target Ranges: 15-20 mcg/ml Vancomycin Load Y/N: No Load Dose Date Time Vancomycin Load Dose: Date: Time: Vancomycin Dose Date: 08/23/16. Current Vancomycin Dose: [1g IV q18h] Intermittent Dosing?: No Labs Labs Item Value Date Time White Blood Count 11.1 K/mm3 H 08/23/16 0539 Creatinine 1.62 MG/DL H 08/23/16 0539 Vancomycin Level Trough 10.9 UG/ML 08/23/162042 Vital Signs Label Value Date Time Patient Temperature 96.7 degrees F 08/23/16 1400 Temperature Source Core 08/23/16 1400 Micro Microbiology 08/21/16 Blood Culture - Preliminary, Resulted No Growth after 48 hours. All Specime... 08/21/16 Blood Culture - Preliminary, Resulted No Growth after 48 hours. All Specime... 08/22/16 Gram Stain, Ordered Pending 08/22/16 Sputum Culture, Ordered Pending 08/21/16 Urine Culture - Final, Complete Pseudomonas Aeruginosa Creatinine Clearance Date:08/21/16. Creatinine Clearance: [39 ml/min using adjusted BW]. Pending Labs Trough 05-24 @0900 Assessment and Plan Maintaining Current Dose?: Yes Reason for dose change: No Dose Change Pharmacist Note Pharmacist Note Date: 08/21/16. Pharmacist note: Trough of 10.9 is below target range. Her current dosing should be sufficient. An extra 1000mg has been ordered for 05- @0000. This extra dose should bring the levels up to the target range. A trough has been ordered for 05-24 @0900. Will continue to monitor and make adjustments as needed. RE WILEY [facility] August 23, 2016 21:32
[2016-08-23 22:00] VITALS: BP 143/77
[2016-08-24] MEDS ORDERED: VANCOMYCIN HCL 1,000 MG, VIAL MATE ADAPTER 1 EACH in D5W 250 ML IV ONE ×3
[2016-08-24] MEDS: CEFEPIME HCL 1 GM in D5W MINI-BAG PLUS 50 ML IV SCH ×2 (05:06→16:09)
[2016-08-24] MEDS: ONDANSETRON 4MG/2ML VIAL (J2405) IV PRN ×3 (05:06→17:31)
[2016-08-24] MEDS: HEPARIN SOD (PORCINE) 5000 UNITS/ML VIAL SC SCH ×3 (05:06→21:29)
[2016-08-24 06:00] VITALS: BP 170/74
[2016-08-24] MEDS: HumaLOG INSULIN (NovoLOG) PER UNIT SC SCH ×2 (07:30→12:40)
[2016-08-24] MEDS: IPRATROPIUM 0.5MG/ALBUTEROL 2.5MG INH SOL UD 3ML (DUONEB)(J7620) INH SCH ×4 (07:32→20:28)
[2016-08-24] MEDS: TIOTROPIUM INHALER/CAPSULE (SPIRIVA) INH SCH (07:33)
[2016-08-24 09:30] LABS: ALBUMIN 2.5 GM/DL (3.2-5.2); ALBUMIN/GLOBULIN RATIO 0.76 (1.00-1.93); BILIRUBIN,TOTAL 0.4 MG/DL (0.2-1.0); CALCIUM LEVEL 8.2 MG/DL (8.8-10.2); CREATININE FOR GFR 1.17 MG/DL (0.55-1.02); GLOMERULAR FILTRATION RATE 48.4 (>39); MAGNESIUM LEVEL 2.2 MG/DL (1.8-2.4); TOTAL PROTEIN 5.8 GM/DL (6.4-8.2)
[2016-08-24] MEDS: COLCHICINE 0.6 MG TAB PO SCH (09:37)
[2016-08-24] MEDS: OMEPRAZOLE 20 MG CAP PO SCH ×2 (09:37→21:29)
[2016-08-24] MEDS: amLODIPine 5 MG TAB PO SCH (09:37)
[2016-08-24] MEDS: levETIRAcetam 250MG TABLET (KEPPRA) PO SCH ×4 (09:37→21:29)
[2016-08-24] MEDS: LACTULOSE 20 GM/30 ML SYRUP UD PO SCH ×2 (09:37→21:00)
[2016-08-24] MEDS: BISOPROLOL FUMARATE 5 MG TAB PO SCH (09:38)
[2016-08-24] MEDS: guaiFENesin ER 600 MG TAB PO SCH ×2 (09:38→21:29)
[2016-08-24] MEDS: SODIUM CHLORIDE 0.9% INJ 10 ML SYR IV SCH (09:38)
[2016-08-24] MEDS: FERROUS GLUCONATE 324 MG TAB PO SCH (09:38)
[2016-08-24] MEDS: METOCLOPRAMIDE 10 MG TAB PO SCH ×3 (09:38→21:29)
[2016-08-24] MEDS: ASPIRIN 81 MG ENTERIC TAB PO SCH (09:38)
[2016-08-24] MEDS: SUCRALFATE 1 GM TAB PO SCH ×2 (09:38→21:29)
[2016-08-24] MEDS: DOCUSATE SODIUM 100 MG CAP PO SCH ×2 (09:39→21:29)
[2016-08-24 09:40] LABS: BASO % 0.5 % (0.0-1.0); EOS # 0.1 K/mm3 (0.0-0.50); EOS % 1.5 % (0.0-3.0); LARGE UNSTAINED CELL # 0.2 K/mm3 (0.0-0.4); LARGE UNSTAINED CELL % 2.3 % (0.0-4.0); LYMPH # 1.3 K/mm3 (1.5-4.5); LYMPH % 16.2 % (24.0-44.0); MEAN CORPUSCULAR HGB CONC 28.4 g/dl (32.0-36.5); MONO # 0.6 K/mm3 (0.0-0.8); NEUTROPHILS # 5.1 K/mm3 (1.8-7.7); NEUTROPHILS % 71.6 % (36.0-66.0); PLATELET COUNT, AUTOMATED 341 k/mm3 (150-450); RED CELL DISTRIBUTION WIDTH 19.2 % (11.5-14.5); WHITE BLOOD COUNT 7.1 K/mm3 (4.0-10.0)
[2016-08-24] MEDS: FLUoxetine 20 MG CAP PO SCH (11:40)
[2016-08-24 14:00] VITALS: BP 169/75
[2016-08-24] MEDS: VANCOMYCIN HCL 1,000 MG, VIAL MATE ADAPTER 1 EACH in D5W 250 ML IV SCH (16:09)
--- NOTE | 2016-08-24 17:33 | IPN ---
DATE: 08/24/2016 SUBJECTIVE: Ms. Stern is a 71-year-old female who was seen and examined at the bedside. Patient denies chest pain, racing or skipping heart beat. However, patient expressed that she feels out of breath and sometimes says she gets anxious due to dyspnea. Patient is on average volume assured pressure support (AVAPS). OBJECTIVE: VITAL SIGNS: Temperature 97.3, pulse 78, respiratory rate 18, blood pressure 170/74, pulse oximetry 97% on 2 liters oxygen with AVAPS. GENERAL: Patient was lying in bed. Patient was awake, alert, and oriented to time, place, and person. HEENT: Normocephalic, atraumatic. Pupils equal and reactive to light. Oral mucous is moist. NECK: Soft, supple. No lymphadenopathy. No thyromegaly. HEART: Distant heart sounds, normal S1, S2. RESPIRATORY: Patient has distant lung sounds possibly secondary to obesity, however no rales or rhonchi was noted. ABDOMEN: Morbidly obese. Soft to palpation. Normal bowel sounds in all quadrants. EXTREMITIES: No clubbing or cyanosis, however patient has lower extremity edema. LABORATORY DATA: White blood cells 7.1, red blood cells 4.17, hemoglobin 9.6, hematocrit 33.8, MCV 81, MCH 23, MCHC 28.4, RDW 19.2, platelet count 341, neutrophil percentage 71.6, lymphocyte percentage 16.2, monocyte percentage 8, basophil percentage 1.5. Sodium 139, potassium 4, chloride 104, carbon dioxide 28, anion gap 7, BUN 19, creatinine 1.17, glomerular filtration rate 48.4, fasting glucose 175, calcium 8.7, magnesium 2.2, total bilirubin 0.4, AST 47, ALT 64, alkaline phosphatase 88 , total protein 5.8, albumin 2.5. ASSESSMENT AND PLAN: 1. Shortness of breath. Due to possibility of healthcare-associated pneumonia we will continue patient on cefepime and vancomycin. Also patient had chest fluoroscopy which was ordered by Dr. Guzman which indicated no evidence of paradoxical diaphragmatic motion on either side, somewhat decreased diaphragmatic movement amplitude. At this time we are waiting for further recommendation from Dr. Guzman. However, we will continue patient on breathing treatment as well as Mucinex. 2. Insulin-dependent diabetes. We will continue patient on sliding scale. Also patient is on Levemir 150 units before food and twice daily, however it is on hold due to patient's low glucose level. 3. Gout. Patient is on colchicine. 4. Seizure. Patient is on Keppra. 5. Hypertension. Patient is on bisoprolol. I have also started patient on Norvasc 5 mg daily. 6. Gastroesophageal reflux disease. Patient is on omeprazole and Carafate. 7. Depression. Patient is on Prozac. 8. Panic attack secondary to medical condition. At this time patient is stable. Patient is on Prozac. 9. Deep venous thrombosis (DVT) prophylaxis. Patient is on heparin. My preceptor for this patient encounter was Dr. Jagdeep Pool. The preceptor was physically present in the building during the encounter and was fully available. As needed, all aspects of the patient interview, examination, medical decision making process, and medical care plan development were reviewed and approved by the preceptor. The preceptor is aware and concurs with the plan as stated in the body of this note and will attest to such by his cosignature. Attending Note: I have independently examined this patient and all aspects of the exam and treatment decisions have been discussed with the resident. A member of the hospitalist staff will continue to follow this patient through discharge. JOSE R
[2016-08-24 20:28] VITALS: O2SAT 99
[2016-08-24] MEDS: LEVEMIR (INSULIN DETEMIR) 1 UNITS/0.01ML SC SCH (21:00)
[2016-08-24] MEDS ORDERED: LEVEMIR (INSULIN DETEMIR) 1 UNITS/0.01ML SC ONE (21:15)
[2016-08-24 22:00] VITALS: BP 137/67
[2016-08-25] MEDS: ONDANSETRON 4MG/2ML VIAL (J2405) IV PRN (00:45)
[2016-08-25] MEDS: CEFEPIME HCL 1 GM in D5W MINI-BAG PLUS 50 ML IV SCH ×2 (05:22→16:41)
[2016-08-25] MEDS: HEPARIN SOD (PORCINE) 5000 UNITS/ML VIAL SC SCH ×3 (05:22→21:04)
[2016-08-25 06:00] VITALS: BP 190/77
[2016-08-25 07:15] LABS: BASO % 0.6 % (0.0-1.0); EOS # 0.1 K/mm3 (0.0-0.50); EOS % 2.2 % (0.0-3.0); LARGE UNSTAINED CELL # 0.2 K/mm3 (0.0-0.4); LARGE UNSTAINED CELL % 2.7 % (0.0-4.0); LYMPH # 1.1 K/mm3 (1.5-4.5); LYMPH % 18.4 % (24.0-44.0); MEAN CORPUSCULAR HEMOGLOBIN 23.4 pg (27.0-33.0); MEAN CORPUSCULAR VOLUME 80.9 fl (80.0-96.0); MONO # 0.6 K/mm3 (0.0-0.8); MONO % 10.3 % (0.0-5.0); NEUTROPHILS % 65.8 % (36.0-66.0); PLATELET COUNT, AUTOMATED 325 k/mm3 (150-450); RED CELL DISTRIBUTION WIDTH 19.1 % (11.5-14.5); WHITE BLOOD COUNT 6.1 K/mm3 (4.0-10.0)
[2016-08-25 07:16] LABS: ADD MORPHOLOGY? YES
[2016-08-25] MEDS: TIOTROPIUM INHALER/CAPSULE (SPIRIVA) INH SCH (07:25)
[2016-08-25] MEDS: IPRATROPIUM 0.5MG/ALBUTEROL 2.5MG INH SOL UD 3ML (DUONEB)(J7620) INH SCH ×4 (07:25→20:08)
[2016-08-25] MEDS: HumaLOG INSULIN (NovoLOG) PER UNIT SC SCH ×3 (07:30→17:44)
[2016-08-25 07:37] LABS: ALBUMIN 2.6 GM/DL (3.2-5.2); ALBUMIN/GLOBULIN RATIO 0.67 (1.00-1.93); BILIRUBIN,TOTAL 0.5 MG/DL (0.2-1.0); CALCIUM LEVEL 8.8 MG/DL (8.8-10.2); CREATININE FOR GFR 1.15 MG/DL (0.55-1.02); GLOMERULAR FILTRATION RATE 49.4 (>39); MAGNESIUM LEVEL 2.2 MG/DL (1.8-2.4); POTASSIUM SERUM 3.9 MEQ/L (3.5-5.1); TOTAL PROTEIN 6.5 GM/DL (6.4-8.2)
[2016-08-25 07:45] LABS: ANISOCYTOSIS 2+; HYPOCHROMASIA 3+; MICROCYTOSIS 1+
[2016-08-25] MEDS: LEVEMIR (INSULIN DETEMIR) 1 UNITS/0.01ML SC SCH ×2 (08:03→21:06)
[2016-08-25] MEDS: LACTULOSE 20 GM/30 ML SYRUP UD PO SCH ×2 (09:00→21:04)
[2016-08-25] MEDS: levETIRAcetam 250MG TABLET (KEPPRA) PO SCH ×4 (09:00→21:05)
[2016-08-25] MEDS: SODIUM CHLORIDE 0.9% INJ 10 ML SYR IV SCH (09:00)
[2016-08-25] MEDS: OMEPRAZOLE 20 MG CAP PO SCH ×2 (10:02→21:05)
[2016-08-25] MEDS: COLCHICINE 0.6 MG TAB PO SCH (10:02)
[2016-08-25] MEDS: VANCOMYCIN HCL 1,000 MG, VIAL MATE ADAPTER 1 EACH in D5W 250 ML IV SCH (10:02)
[2016-08-25] MEDS: METOCLOPRAMIDE 10 MG TAB PO SCH ×3 (10:03→21:05)
[2016-08-25] MEDS: BISOPROLOL FUMARATE 5 MG TAB PO SCH (10:03)
[2016-08-25] MEDS: amLODIPine 5 MG TAB PO SCH (10:04)
[2016-08-25] MEDS ORDERED: SODIUM BICARBONATE 4 % INJ 2.4MEQ 5 ML VIAL (THIS HAS A PRESERVATIVE) As Ordered ONE (10:41)
[2016-08-25] MEDS ORDERED: LIDOCAINE 2% MDV 20 ML VIAL As Ordered ONE (10:42)
[2016-08-25] MEDS ORDERED: ISOVUE-300 61% 50ML VIAL (Q9967) As Ordered ONE (10:42)
[2016-08-25] MEDS ORDERED: LIDOCAINE W/EPINEPHRINE 1% 20ML VIAL As Ordered ONE (10:42)
[2016-08-25] MEDS: SUCRALFATE 1 GM TAB PO SCH ×2 (13:59→21:05)
[2016-08-25] MEDS: FLUoxetine 20 MG CAP PO SCH (13:59)
[2016-08-25] MEDS: FERROUS GLUCONATE 324 MG TAB PO SCH (13:59)
[2016-08-25] MEDS: DOCUSATE SODIUM 100 MG CAP PO SCH ×2 (14:00→21:05)
[2016-08-25] MEDS: PERCOCET 5MG/325MG TAB PO PRN ×2 (14:00→18:00)
[2016-08-25] MEDS: guaiFENesin ER 600 MG TAB PO SCH ×2 (14:00→21:05)
[2016-08-25] MEDS: ASPIRIN 81 MG ENTERIC TAB PO SCH (14:01)
--- NOTE | 2016-08-25 14:08 | REP ---
Clinical: Dyspnea. Infiltrates. Comparison: 08/05/2016. Findings: Examination is limited by technique which accentuates the pulmonary vasculature and interstitium. Gziteu-O-Fjmn identified with tip in the SVC/right atrium. Cardiomegaly is appreciated and stable. Lung diaz demonstrate diffuse chronic interstitial changes and left lower lobe opacity similar to prior examination. Superimposed pulmonary vascular congestion and interstitial edema as well as basilar atelectasis and possible layering left effusion cannot be excluded. Skeletal structures intact. Impression: 1. Chronic cardiomegaly and interstitial changes. 2. Findings suggest superimposed pulmonary vascular congestion/interstitial edema with possible basilar atelectasis. Layering effusion cannot be excluded as well. Signed by Ramos Chaparro MD 08/25/2016 01:59 P
--- NOTE | 2016-08-25 18:16 | REPKIM ---
CLINICAL HISTORY: COPD, CHF, Diabetes, morbid obesity, recent UTI and difficult IV access. Patient presents because of right chest port dysfunction. The port flushes fine but unable to aspirate. Previous attempt of tpa at the bedside did not work. PROCEDURE PERFORMED: 1. Right Chest Port Removal 2. Placement of new totally implantable venous access device under fluoroscopic guidance INTERVENTIONALIST: Gustavo Miller MD CONSENT: The risks, benefits and alternatives to the procedure were explained to the patient and informed written consent was obtained. MEDICATIONS: Local Lidocaine EBL: 15 mL FLUORO TIME: 1.0 minute DEVICE USED: Bard Port 8-Swedish, Single-Lumen Lot#[id number] PROCEDURE/FINDINGS: The patient was brought to the interventional radiology suite and was positioned supine on the table. Time out procedure was performed. Patient received IV antibiotics. The upper chest was prepped and draped in the usual sterile fashion. Fluoroscopy of the chest showed the existing right chest Infuse -A-Port in a satisfactory course with its tip at the cavoatrial junction. Local anesthesia was administered to the overlying skin and surrounding deep tissue around the port. Then a skin incision was made. The port was bluntly dissected free from the surrounding soft tissues. Then the existing port was removed in its entirety. A hydrophilic guidewire was introduced through the existing catheter, and under fluoroscopy advanced across the right atrium into the inferior vena cava. The existing catheter was then removed over the guidewire in its entirety. A new iajfhb-q-hqbs catheter was then advanced over the guidewire. The catheter was trimmed, attached to a new reservoir, and flushed with heparinized saline. The new reservoir was then inserted into the pocket and secured with 2-0 absorbable sutures. The deep tissue was closed with interrupted 2-0 Vicryl suture. The skin incision was closed with a running subcuticular suture of 4-0 Vicryl. The incision was closed with 4-0 Vicryl suture. Mastisol and Steri-Strips were applied. The new port was then accessed with a 20-gauge Foley needle and Heparin (100 units/mL concentration) locked in the port. A sterile dressing was then applied. Post procedure chest spot film radiograph showed the tip of the catheter is at the cavoatrial junction. The patient tolerated the procedure well with no immediate complications. This procedure was performed using fluoroscopy. Dr. Miller was present. IMPRESSION: Successful revision of the right chest dkbraa-t-osfs as discussed above. The new chest kimkur-l-elen aspirates and flushes freely. The new chest port is ready for use. cc: MD Baldemar Carranza DO MTDD
[2016-08-25 20:08] VITALS: O2SAT 98
[2016-08-25 22:00] VITALS: BP 169/83
[2016-08-26 00:08] LABS: ORGANISM ID Not indicated. (.); SPECIMEN SOURCE Urine (.)
[2016-08-26] MEDS: PERCOCET 5MG/325MG TAB PO PRN ×3 (02:22→21:47)
[2016-08-26] MEDS: VANCOMYCIN HCL 1,000 MG, VIAL MATE ADAPTER 1 EACH in D5W 250 ML IV SCH (03:22)
[2016-08-26] MEDS: CEFEPIME HCL 1 GM in D5W MINI-BAG PLUS 50 ML IV SCH ×2 (03:23→17:56)
[2016-08-26] MEDS: SODIUM CHLORIDE 0.9% INJ 10 ML SYR IV PRN (05:22)
[2016-08-26] MEDS: HEPARIN SOD (PORCINE) 5000 UNITS/ML VIAL SC SCH ×3 (05:22→20:39)
[2016-08-26 05:38] LABS: BASO % 0.4 % (0.0-1.0); EOS # 0.1 K/mm3 (0.0-0.50); EOS % 1.7 % (0.0-3.0); LARGE UNSTAINED CELL # 0.1 K/mm3 (0.0-0.4); LARGE UNSTAINED CELL % 1.8 % (0.0-4.0); LYMPH # 1.5 K/mm3 (1.5-4.5); LYMPH % 21.6 % (24.0-44.0); MEAN CORPUSCULAR HEMOGLOBIN 22.9 pg (27.0-33.0); MEAN CORPUSCULAR HGB CONC 28.3 g/dl (32.0-36.5); MEAN CORPUSCULAR VOLUME 81.2 fl (80.0-96.0); MONO # 0.7 K/mm3 (0.0-0.8); MONO % 10.7 % (0.0-5.0); NEUTROPHILS % 63.7 % (36.0-66.0); PLATELET COUNT, AUTOMATED 298 k/mm3 (150-450); RED CELL DISTRIBUTION WIDTH 19.3 % (11.5-14.5); WHITE BLOOD COUNT 6.3 K/mm3 (4.0-10.0)
[2016-08-26 05:54] LABS: ADD MORPHOLOGY? YES
[2016-08-26 05:56] LABS: ANISOCYTOSIS 2+; HYPOCHROMASIA 3+; MICROCYTOSIS 1+
[2016-08-26 06:00] VITALS: BP 173/81
[2016-08-26 06:01] LABS: ALBUMIN 2.4 GM/DL (3.2-5.2); ALBUMIN/GLOBULIN RATIO 0.75 (1.00-1.93); BILIRUBIN,TOTAL 0.4 MG/DL (0.2-1.0); CALCIUM LEVEL 8.3 MG/DL (8.8-10.2); CREATININE FOR GFR 1.01 MG/DL (0.55-1.02); GLOMERULAR FILTRATION RATE 57.4 (>39); MAGNESIUM LEVEL 2.1 MG/DL (1.8-2.4); POTASSIUM SERUM 3.6 MEQ/L (3.5-5.1); TOTAL PROTEIN 5.6 GM/DL (6.4-8.2)
[2016-08-26] MEDS: IPRATROPIUM 0.5MG/ALBUTEROL 2.5MG INH SOL UD 3ML (DUONEB)(J7620) INH SCH ×4 (07:30→20:05)
[2016-08-26] MEDS: TIOTROPIUM INHALER/CAPSULE (SPIRIVA) INH SCH (07:31)
[2016-08-26] MEDS: LACTULOSE 20 GM/30 ML SYRUP UD PO SCH ×2 (08:47→20:39)
[2016-08-26] MEDS: COLCHICINE 0.6 MG TAB PO SCH (08:47)
[2016-08-26] MEDS: DOCUSATE SODIUM 100 MG CAP PO SCH ×2 (08:47→20:38)
[2016-08-26] MEDS: SUCRALFATE 1 GM TAB PO SCH ×2 (08:47→20:39)
[2016-08-26] MEDS: FERROUS GLUCONATE 324 MG TAB PO SCH (08:47)
[2016-08-26] MEDS: guaiFENesin ER 600 MG TAB PO SCH ×2 (08:47→20:39)
[2016-08-26] MEDS: levETIRAcetam 250MG TABLET (KEPPRA) PO SCH ×4 (08:48→20:38)
[2016-08-26] MEDS: OMEPRAZOLE 20 MG CAP PO SCH ×2 (08:49→20:38)
[2016-08-26] MEDS: ASPIRIN 81 MG ENTERIC TAB PO SCH (08:49)
[2016-08-26] MEDS: METOCLOPRAMIDE 10 MG TAB PO SCH ×3 (08:49→20:38)
[2016-08-26] MEDS: BISOPROLOL FUMARATE 5 MG TAB PO SCH (08:49)
[2016-08-26] MEDS: HumaLOG INSULIN (NovoLOG) PER UNIT SC SCH ×3 (08:50→17:55)
[2016-08-26] MEDS: amLODIPine 5 MG TAB PO SCH (08:51)
[2016-08-26] MEDS: LEVEMIR (INSULIN DETEMIR) 1 UNITS/0.01ML SC SCH ×2 (08:51→20:38)
[2016-08-26] MEDS: SODIUM CHLORIDE 0.9% INJ 10 ML SYR IV SCH (08:52)
[2016-08-26] MEDS: FUROSEMIDE 40 MG TAB PO SCH ×2 (10:32→17:56)
--- NOTE | 2016-08-26 12:22 | IPN ---
DATE: 08/26/2016 SUBJECTIVE: Ms. Stern is a 71-year-old female who was seen and examined at the bedside. The patient denies chest pain and she expressed that her shortness of breath has controlled. The patient denies nausea, vomiting, diarrhea or constipation. The patient did not have any issues overnight. Yesterday, however, the patient has had an Infusaport for the past 20 years and yesterday afternoon, nursing staff reported it as nonfunctional. Dr. Miller visited the patient and he replaced the Infusaport. At this time, the Infusaport is functional. OBJECTIVE: VITAL SIGNS: Temperature 96.7, pulse 71, respiratory rate 18, blood pressure 173/81, pulse oximetry 99 on 2 liters nasal cannula. Total intake from yesterday 120, total output 700. GENERAL APPEARANCE: The patient was lying in bed in no acute distress. The patient was awake, alert and oriented to time, place and person. HEENT: Normocephalic, atraumatic. Pupils equal, round, and reactive to light. Oral mucosal is moist. NECK: Soft, supple. No lymphadenopathy or thyromegaly. No jugular venous distention. LUNGS: The patient has respiratory rate possibly secondary to obesity. The patient has mild rhonchus at the base of the lungs. HEART: Regular rate and rhythm. Normal S1, S2. ABDOMEN: Morbidly obese. Soft to palpation. Positive bowel sounds in all quadrants. No guarding or rebound. EXTREMITIES: The patient has lower extremity edema. +2 pulses in both lower extremities. However, no clubbing or cyanosis was noticed. LABORATORY DATA: White blood cell 6.3, red blood cells 3.9, hemoglobin 8.9, hematocrit 31.7, MCV 81.2, MCH 32.9, MCHC 28.3, RDW 19.3, platelet count 298. Sodium 141, potassium 3.6, chloride 105, carbon dioxide 30, anion gap 6, BUN 9, creatinine 1.01, glomerular filtration rate 57.4, fasting glucose 158, calcium 8.3, magnesium 2.1, total bilirubin 0.4, AST 29, ALT 54, alkaline phosphatase 84, total protein 5.6, albumin 2.4. ASSESSMENT/PLAN: 1. Asymptomatic urinary tract infection. The patient's urine culture has grown pseudomonas aeruginosa. However, at this time, the patient is on cefepime. The patient is asymptomatic and afebrile. Will continue to monitor the patient for any abnormal symptoms. 2. Shortness of breath: At this time, the patient is stable. Dr. Guzman has seen the patient and at this time the patient was started on home BiPAP with a new setting, patient recommendations from Dr. Guzman. Appreciate Dr. Guzman's recommendations. Also yesterday, the patient had a chest x-ray done which indicated possible vascular congestion, interstitial edema. Therefore, I have started the patient on Lasix 40 mg by mouth twice a day. We will continue monitoring patient's input and output. The patient is also on breathing treatments. Also, due to healthcare associated pneumonia, the patient was continued on cefepime and vancomycin. However, I have stopped the vancomycin at this time. The patient is only on cefepime. 3. Insulin dependent diabetes: Will continue the patient on sliding scale and the current regimens of Levemir, however, we will hold the insulin of the patient's glucose is low. 4. Gout: The patient is on colchicine. 5. Seizure: The patient is on Keppra. 6. Hypertension: The patient is on bisoprolol also Norvasc. The patient also started on Lasix 40 mg twice a day. 7. Gastroesophageal reflux disease: The patient is on omeprazole and Carafate. 8. Depression: The patient is on Prozac. 9. 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 At this time, the patient is stable. The patient is on Prozac. 10. Deep venous thrombosis prophylaxis: The patient is on heparin. My preceptor for this patient encounter was Dr. Jagdeep Pool. The preceptor was physically present in the building during the encounter and was fully available. As needed, all aspects of the patient interview, examination, medical decision making process, and medical care plan development were reviewed and approved by the preceptor. The preceptor is aware and concurs with the plan as stated in the body of this note and will attest to such by his/her cosignature.
[2016-08-26] MEDS: FLUoxetine 20 MG CAP PO SCH (12:59)
[2016-08-26 14:00] VITALS: BP 169/82
[2016-08-26 22:00] VITALS: BP 132/70
[2016-08-27] MEDS: PERCOCET 5MG/325MG TAB PO PRN ×4 (01:35→21:47)
[2016-08-27] MEDS: CEFEPIME HCL 1 GM in D5W MINI-BAG PLUS 50 ML IV SCH ×2 (05:26→16:42)
[2016-08-27] MEDS: SODIUM CHLORIDE 0.9% INJ 10 ML SYR IV SCH (05:26)
[2016-08-27] MEDS: HEPARIN SOD (PORCINE) 5000 UNITS/ML VIAL SC SCH ×3 (05:28→21:46)
[2016-08-27 05:54] LABS: BASO % 0.5 % (0.0-1.0); EOS # 0.1 K/mm3 (0.0-0.50); EOS % 2.2 % (0.0-3.0); LARGE UNSTAINED CELL # 0.2 K/mm3 (0.0-0.4); LARGE UNSTAINED CELL % 2.7 % (0.0-4.0); LYMPH # 1.5 K/mm3 (1.5-4.5); LYMPH % 25.7 % (24.0-44.0); MEAN CORPUSCULAR HEMOGLOBIN 23.3 pg (27.0-33.0); MEAN CORPUSCULAR HGB CONC 29.3 g/dl (32.0-36.5); MEAN CORPUSCULAR VOLUME 79.6 fl (80.0-96.0); MONO # 0.6 K/mm3 (0.0-0.8); MONO % 9.7 % (0.0-5.0); NEUTROPHILS # 3.4 K/mm3 (1.8-7.7); NEUTROPHILS % 59.2 % (36.0-66.0); PLATELET COUNT, AUTOMATED 320 k/mm3 (150-450); RED CELL DISTRIBUTION WIDTH 19.6 % (11.5-14.5); WHITE BLOOD COUNT 5.8 K/mm3 (4.0-10.0)
[2016-08-27 06:00] VITALS: BP 161/72
[2016-08-27 06:00] LABS: ADD MORPHOLOGY? YES
[2016-08-27 06:34] LABS: ALBUMIN 2.6 GM/DL (3.2-5.2); ALBUMIN/GLOBULIN RATIO 0.68 (1.00-1.93); BILIRUBIN,TOTAL 0.3 MG/DL (0.2-1.0); CALCIUM LEVEL 8.7 MG/DL (8.8-10.2); CREATININE FOR GFR 1.08 MG/DL (0.55-1.02); GLOMERULAR FILTRATION RATE 53.1 (>39); MAGNESIUM LEVEL 1.9 MG/DL (1.8-2.4); TOTAL PROTEIN 6.4 GM/DL (6.4-8.2)
[2016-08-27 06:57] LABS: ANISOCYTOSIS 2+; HYPOCHROMASIA 2+; MICROCYTOSIS 1+
[2016-08-27] MEDS: HumaLOG INSULIN (NovoLOG) PER UNIT SC SCH ×5 (07:25→21:00)
[2016-08-27] MEDS ORDERED: POTASSIUM CHLORIDE 10 MEQ SR TABLET PO ONE (07:30)
[2016-08-27] MEDS: TIOTROPIUM INHALER/CAPSULE (SPIRIVA) INH SCH (08:16)
[2016-08-27] MEDS: IPRATROPIUM 0.5MG/ALBUTEROL 2.5MG INH SOL UD 3ML (DUONEB)(J7620) INH SCH ×4 (08:16→20:22)
[2016-08-27] MEDS: LACTULOSE 20 GM/30 ML SYRUP UD PO SCH ×2 (08:42→21:46)
[2016-08-27] MEDS: SUCRALFATE 1 GM TAB PO SCH ×2 (08:43→21:46)
[2016-08-27] MEDS: METOCLOPRAMIDE 10 MG TAB PO SCH ×3 (08:43→21:47)
[2016-08-27] MEDS: levETIRAcetam 250MG TABLET (KEPPRA) PO SCH ×4 (08:43→21:47)
[2016-08-27] MEDS: FERROUS GLUCONATE 324 MG TAB PO SCH (08:44)
[2016-08-27] MEDS: amLODIPine 5 MG TAB PO SCH (08:44)
[2016-08-27] MEDS: COLCHICINE 0.6 MG TAB PO SCH (08:44)
[2016-08-27] MEDS: guaiFENesin ER 600 MG TAB PO SCH ×2 (08:44→21:46)
[2016-08-27] MEDS: DOCUSATE SODIUM 100 MG CAP PO SCH ×2 (08:44→21:47)
[2016-08-27] MEDS: OMEPRAZOLE 20 MG CAP PO SCH ×2 (08:44→21:46)
[2016-08-27] MEDS: ASPIRIN 81 MG ENTERIC TAB PO SCH (08:44)
[2016-08-27] MEDS: FUROSEMIDE 40 MG TAB PO SCH ×2 (08:45→16:43)
[2016-08-27] MEDS: BISOPROLOL FUMARATE 5 MG TAB PO SCH (08:45)
[2016-08-27] MEDS: FLUoxetine 20 MG CAP PO SCH (12:43)
[2016-08-27 14:00] VITALS: BP 165/86
[2016-08-27] MEDS: PREGABALIN 100 MG CAP (LYRICA) PO SCH ×2 (16:43→21:47)
[2016-08-27] MEDS: SODIUM CHLORIDE 0.9% INJ 10 ML SYR IV PRN (18:33)
--- NOTE | 2016-08-27 21:34 | IPN ---
DATE: 08/27/2016 SUBJECTIVE: Ms. Stern is a 71-year-old female who was seen and examined at the bedside. Patient denies chest pain, orthopnea, or paroxysmal nocturnal dyspnea (PND). Patient also denies nausea, vomiting, diarrhea, or constipation. At the time of visit, patient was on nasal cannula 2 liters which is her baseline. Patient yesterday was started on Lasix 40 mg twice a day. Will continue monitoring patient's input and output. OBJECTIVE: VITAL SIGNS: Temperature 97.8, pulse 75, respiratory rate 20, blood pressure 161/72, pulse oximetry 97% on 2 liters nasal cannula. Total intake from yesterday 1100, total output from yesterday 5550 mL. GENERAL APPEARANCE: Patient was sitting in the chair in no acute distress. Patient was awake, alert, and oriented to time, place, and person. HEENT: Normocephalic, atraumatic. Pupils are equal and reactive to light. Oral mucosa is moist. NECK: Soft, supple. No lymphadenopathy. No thyromegaly. No jugular venous distention (JVD). LUNGS: Patient has distant lung sounds possibly secondary to obesity. Patient has scattered rhonchi at the base of the lung. HEART: Regular rate and rhythm, normal S1, S2. ABDOMEN: Morbidly obese, soft, nontender to palpation. Positive bowel sounds in all quadrants. No guarding. No rebound. EXTREMITIES: Patient has lower extremity edema. +2 pulses in both lower extremities. No clubbing or cyanosis was noted. LABORATORY DATA: White blood cells 5.8, red blood cells 4.28, hemoglobin 9.9, hematocrit 33.7, MCV 79.6, MCH 23.3, MCHC 29.3, RDW 19.6, platelet count 320, neutrophil percentage 59.2, lymphocyte percentage 25.7, monocyte percentage 9.7, eosinophil percentage 2.2, basophil percentage 0.2, leukocyte percentage 2.7. Sodium 143, potassium 3, chloride 104, carbon dioxide 32, anion gap 7, BUN 6, creatinine 1.08, glomerular filtration rate 53.1, fasting glucose 80, calcium 8.7, magnesium 1.9, total bilirubin 0.3, AST 22, ALT 48, alkaline phosphatase 83 , total protein 6.4, albumin 2.6. ASSESSMENT AND PLAN: 1. Asymptomatic urobacteremia. At this point patient is on cefepime. Will continue monitoring patient for any abnormal symptoms. 2. Shortness of breath. Patient has been started on Lasix 40 mg twice a day. Today patient feels better and the episode of dyspnea has decreased. Patient is started on bilevel positive airway pressure (BiPAP) with a new setting. Appreciate Dr. Guzman's recommendations. We will continue monitoring patient for one more night. If patient is stable, we will hopefully discharge the patient tomorrow. We will continue patient on cefepime and upon discharge we will change the medication to oral antibiotic. We also will continue patient on breathing treatments. 3. Insulin dependence. We have stopped the Levemir. We will continue patient on sliding scale due to hypoglycemia. 4. Gout. Patient is on colchicine. 5. Seizures. Patient is on Keppra. 6. Hypokalemia. This is possibly secondary to Lasix. I have given one dose of potassium 40 mEq and we will check the potassium again tomorrow. 7. Hypertension. We will continue patient on bisoprolol and Norvasc. 8. Gastroesophageal reflux disease (GERD). We will continue patient on Carafate and omeprazole. 9. Panic attack secondary to metabolic condition. Patient is stable at this time. Will continue patient on Prozac. 10. Deep venous thrombosis (DVT) prophylaxis. Patient is on heparin. My preceptor for this patient encounter was Dr. Jagdeep Pool. The preceptor was physically present in the building during the encounter and was fully available. As needed, all aspects of the patient interview, examination, medical decision making process, and medical care plan development were reviewed and approved by the preceptor. The preceptor is aware and concurs with the plan as stated in the body of this note and will attest to such by his cosignature. JOSE R
[2016-08-27] MEDS: AMMONIUM LACTATE 12% TOP SCH (21:46)
[2016-08-28] MEDS: HEPARIN SOD (PORCINE) 5000 UNITS/ML VIAL SC SCH ×3 (05:24→21:00)
[2016-08-28] MEDS: CEFEPIME HCL 1 GM in D5W MINI-BAG PLUS 50 ML IV SCH ×2 (05:24→17:58)
[2016-08-28] MEDS: SODIUM CHLORIDE 0.9% INJ 10 ML SYR IV PRN (05:25)
[2016-08-28 05:46] LABS: MEAN CORPUSCULAR HEMOGLOBIN 22.9 pg (27.0-33.0); MEAN CORPUSCULAR HGB CONC 28.2 g/dl (32.0-36.5); MEAN CORPUSCULAR VOLUME 81.2 fl (80.0-96.0); PLATELET COUNT, AUTOMATED 354 k/mm3 (150-450); RED CELL DISTRIBUTION WIDTH 19.4 % (11.5-14.5); WHITE BLOOD COUNT 5.4 K/mm3 (4.0-10.0)
[2016-08-28 06:00] VITALS: BP 148/70
[2016-08-28 06:53] LABS: ALBUMIN 2.8 GM/DL (3.2-5.2); ALBUMIN/GLOBULIN RATIO 0.88 (1.00-1.93); BILIRUBIN,TOTAL 0.5 MG/DL (0.2-1.0); CALCIUM LEVEL 8.5 MG/DL (8.8-10.2); CREATININE FOR GFR 1.23 MG/DL (0.55-1.02); GLOMERULAR FILTRATION RATE 45.7 (>39); MAGNESIUM LEVEL 1.9 MG/DL (1.8-2.4); POTASSIUM SERUM 3.4 MEQ/L (3.5-5.1)
[2016-08-28 07:03] LABS: BANDS 2 % (< 11); EOSINOPHILS 3 % (0-5)
[2016-08-28 07:05] LABS: ANISOCYTOSIS 2+; HYPOCHROMASIA 3+
[2016-08-28] MEDS: IPRATROPIUM 0.5MG/ALBUTEROL 2.5MG INH SOL UD 3ML (DUONEB)(J7620) INH SCH ×4 (07:35→19:59)
[2016-08-28] MEDS: TIOTROPIUM INHALER/CAPSULE (SPIRIVA) INH SCH (07:35)
[2016-08-28] MEDS: HumaLOG INSULIN (NovoLOG) PER UNIT SC SCH ×4 (08:51→21:00)
[2016-08-28] MEDS: LACTULOSE 20 GM/30 ML SYRUP UD PO SCH ×2 (08:51→20:42)
[2016-08-28] MEDS: SODIUM CHLORIDE 0.9% INJ 10 ML SYR IV SCH (08:52)
[2016-08-28] MEDS: POTASSIUM CHLORIDE 10 MEQ SR TABLET PO SCH (08:52)
[2016-08-28] MEDS: levETIRAcetam 250MG TABLET (KEPPRA) PO SCH ×4 (08:53→20:42)
[2016-08-28] MEDS: PREGABALIN 100 MG CAP (LYRICA) PO SCH ×3 (08:53→20:43)
[2016-08-28] MEDS: FUROSEMIDE 40 MG TAB PO SCH (08:53)
[2016-08-28] MEDS: DOCUSATE SODIUM 100 MG CAP PO SCH ×2 (08:53→20:43)
[2016-08-28] MEDS: COLCHICINE 0.6 MG TAB PO SCH (08:53)
[2016-08-28] MEDS: OMEPRAZOLE 20 MG CAP PO SCH ×2 (08:53→20:42)
[2016-08-28] MEDS: METOCLOPRAMIDE 10 MG TAB PO SCH ×3 (08:53→20:42)
[2016-08-28] MEDS: SUCRALFATE 1 GM TAB PO SCH ×2 (08:54→20:43)
[2016-08-28] MEDS: BISOPROLOL FUMARATE 5 MG TAB PO SCH (08:54)
[2016-08-28] MEDS: FERROUS GLUCONATE 324 MG TAB PO SCH (08:54)
[2016-08-28] MEDS: amLODIPine 5 MG TAB PO SCH (08:54)
[2016-08-28] MEDS: PERCOCET 5MG/325MG TAB PO PRN ×4 (08:55→22:02)
[2016-08-28] MEDS: ASPIRIN 81 MG ENTERIC TAB PO SCH (08:55)
[2016-08-28] MEDS: guaiFENesin ER 600 MG TAB PO SCH ×2 (08:55→20:42)
[2016-08-28] MEDS: AMMONIUM LACTATE 12% TOP SCH ×2 (08:56→21:03)
[2016-08-28] MEDS: FLUoxetine 20 MG CAP PO SCH (13:11)
--- NOTE | 2016-08-28 21:15 | IPN ---
DATE: 08/27/2016 SUBJECTIVE: Ms. Stern is a 71-year-old female who was seen and examined at the bedside. Patient denies orthopnea or paroxysmal nocturnal dyspnea (PND). Patient also denies nausea, vomiting, diarrhea, or constipation. Patient expressed that her dyspnea is much better today. Patient denies overnight issues. OBJECTIVE: VITAL SIGNS: Temperature 97.2, pulse 84, respiratory rate 18, blood pressure 148/70, pulse oximetry 96 on room air. Total intake from yesterday 720, total output 3300 mL. GENERAL APPEARANCE: Patient was lying in bed in no acute distress. Patient was awake, alert, and oriented to time, place, and person. HEENT: Normocephalic, atraumatic. Pupils are equal and reactive to light. Oral mucosa is moist. NECK: Soft, supple. No lymphadenopathy. No thyromegaly. No jugular venous distention (JVD). HEART: Regular rate and rhythm. Normal S1, S2. LUNGS: Patient has scattered rhonchi at the base of the lungs. Good air movement; however, patient has distant heart sounds, possibly secondary to obesity. ABDOMEN: Morbidly obese. Soft, nontender to palpable. Positive bowel sounds in all quadrants. No guarding or rebound. EXTREMITIES: Patient has lower extremity edema. +2 pulses in both lower extremities. LABORATORY DATA: White blood cells 5.4, red blood cells 4.51, hemoglobin 10.3, hematocrit 36.6, MCV 81.2, MCH 22.9, MCHC 28.2, RDW 19.4, platelet count 354. Sodium 142, potassium 3.4, chloride 103, carbon dioxide 29, anion gap 10, BUN 6, creatinine 1.23, glomerular filtration rate 45.7, fasting glucose 181, calcium 8.5, magnesium 1.9. Total bilirubin 0.5, AST 25, ALT 45, alkaline phosphatase 89, total protein 6, albumin 2.8. ASSESSMENT AND PLAN: 1. Asymptomatic urobacteremia. At this time patient is on cefepime. We will continue monitoring patient for any abnormal symptoms. 2. Shortness of breath. Patient was started on Lasix 40 mg twice a day; however, today we have decreased it to 40 mg daily due to increase of the creatinine. Patient is on bilevel positive airway pressure (BiPAP) with a new setting. At this time patient is stable and on room air. 3. Insulin dependence. We will continue patient on sliding scale. 4. Gout. Patient is on colchicine. 5. Seizure. Patient is on Keppra. 6. Acute increase in renal failure. This is possibly secondary to Lasix. We have decrease the Lasix to 40 mg by mouth daily. 7. Hypertension. We will continue patient on BuSpar and Norvasc. 8. Gastroesophageal reflux disease (GERD). Patient is Carafate and omeprazole. 9. Panic attack secondary to metabolic condition. Patient is on Prozac. 10. Deep vein thrombosis (DVT) prophylaxis. Patient is on heparin. My preceptor for this patient encounter was Dr. Jagdeep Pool. The preceptor was physically present in the building during the encounter and was fully available as needed. All aspects of the patient interview, examination, medical decision making process, and medical care plan development were reviewed and approved by the preceptor. The preceptor is aware and concurs with the plan as stated in the body of this note and will attest to such by his/her co-signature.
[2016-08-28 22:00] VITALS: BP 160/74
[2016-08-29] MEDS: HEPARIN SOD (PORCINE) 5000 UNITS/ML VIAL SC SCH ×3 (05:42→21:40)
[2016-08-29 06:00] VITALS: BP 132/84
[2016-08-29] MEDS: IPRATROPIUM 0.5MG/ALBUTEROL 2.5MG INH SOL UD 3ML (DUONEB)(J7620) INH SCH ×4 (07:11→20:02)
[2016-08-29] MEDS: TIOTROPIUM INHALER/CAPSULE (SPIRIVA) INH SCH (07:11)
[2016-08-29] MEDS: LACTULOSE 20 GM/30 ML SYRUP UD PO SCH ×2 (08:44→21:40)
[2016-08-29] MEDS: levETIRAcetam 250MG TABLET (KEPPRA) PO SCH ×4 (08:45→21:42)
[2016-08-29] MEDS: METOCLOPRAMIDE 10 MG TAB PO SCH ×3 (08:45→21:43)
[2016-08-29] MEDS: OMEPRAZOLE 20 MG CAP PO SCH ×2 (08:45→21:43)
[2016-08-29] MEDS: guaiFENesin ER 600 MG TAB PO SCH ×2 (08:45→21:44)
[2016-08-29] MEDS: COLCHICINE 0.6 MG TAB PO SCH (08:45)
[2016-08-29] MEDS: SUCRALFATE 1 GM TAB PO SCH ×2 (08:46→21:43)
[2016-08-29] MEDS: FUROSEMIDE 40 MG TAB PO SCH (08:46)
[2016-08-29] MEDS: BISOPROLOL FUMARATE 5 MG TAB PO SCH (08:46)
[2016-08-29] MEDS: amLODIPine 5 MG TAB PO SCH (08:47)
[2016-08-29] MEDS: PREGABALIN 100 MG CAP (LYRICA) PO SCH ×3 (08:47→21:43)
[2016-08-29] MEDS: FERROUS GLUCONATE 324 MG TAB PO SCH (08:48)
[2016-08-29] MEDS: ASPIRIN 81 MG ENTERIC TAB PO SCH (08:48)
[2016-08-29] MEDS: PERCOCET 5MG/325MG TAB PO PRN ×2 (08:48→21:43)
[2016-08-29] MEDS: DOCUSATE SODIUM 100 MG CAP PO SCH ×2 (08:49→21:43)
[2016-08-29] MEDS: POTASSIUM CHLORIDE 10 MEQ SR TABLET PO SCH (08:49)
[2016-08-29] MEDS: HumaLOG INSULIN (NovoLOG) PER UNIT SC SCH ×4 (08:51→21:42)
[2016-08-29] MEDS: SODIUM CHLORIDE 0.9% INJ 10 ML SYR IV SCH (08:53)
[2016-08-29] MEDS: AMMONIUM LACTATE 12% TOP SCH ×2 (08:54→21:44)
--- NOTE | 2016-08-29 11:43 | IPN ---
DATE OF SERVICE: 08/29/2016 A 71-year-old female seen at bedside, resting more comfortably. She feels that her shortness of breath is much improved. She denies productive sputum. Today, we have had some adjustments in her bilateral positive airway pressure (BiPAP), which she does seem to be tolerating better, and she does appear to be diuresing nicely. OBJECTIVE: Temperature is 98.6, pulse 88, respiratory rate is 20, blood pressure (BP) 132/84, SpO2 is 94% on 2 liters. General: The patient appears to be in no acute distress. She is alert, pleasant. HEENT: Unremarkable. Lungs: Clear. However, she does have some diminished bibasilar breath sounds. Heart: Regular rate and rhythm. Abdomen is obese, soft. Extremities: Trace edema at the ankles. No calf tenderness. LABORATORY DATA: White count 5.4, hemoglobin 10.3, platelets 354,000. Sodium 142, potassium 3.4 which we will supplement, chloride 103, bicarbonate 29, anion gap 10, BUN 6, creatinine 0.23, glucose 181, AST 25, ALT 45, alkaline phosphatase 89. 1. Acute shortness of breath with some slow improvement and likely multifactorial. She has had Lasix, which does appear to be helping her with her volume status. 2. Asymptomatic bacteremia. Completed therapy with cefapime. She did have a urine culture positive for Pseudomonas. She remains afebrile and normal white count. 3. Insulin-dependent diabetes. Continue sliding scale coverage. 4. Obstructive sleep apnea. Continue on BiPAP. 5. Gout. Continue on colchicine. 6. Seizure by history. Continue on Keppra. 7. Acute renal failure, which appears to mild. We did decrease Lasix. Will continue on current dose and monitoring. 8. Hypertension, stable on Norvasc. 9. Gastroesophageal reflux disease (GERD). Continue with Carafate and omeprazole. 10. History of panic attacks. Continuing on Prozac and BuSpar. 11. Deep venous thrombosis (DVT) prophylaxis, on heparin. DISPOSITION: The patient does appear to be moving close her baseline. I would like to discuss with patient and family services (PFS) within the next day or two to see if we get her home, but she does appear to be close to discharge.
[2016-08-29] MEDS: FLUoxetine 20 MG CAP PO SCH (12:44)
[2016-08-29 16:00] VITALS: BP 137/88
[2016-08-29 22:00] VITALS: BP 138/67
[2016-08-30 06:00] VITALS: BP 125/61
[2016-08-30] MEDS: HEPARIN SOD (PORCINE) 5000 UNITS/ML VIAL SC SCH ×3 (06:06→21:02)
[2016-08-30] MEDS: TIOTROPIUM INHALER/CAPSULE (SPIRIVA) INH SCH (07:17)
[2016-08-30] MEDS: IPRATROPIUM 0.5MG/ALBUTEROL 2.5MG INH SOL UD 3ML (DUONEB)(J7620) INH SCH ×4 (07:17→19:44)
[2016-08-30] MEDS: FERROUS GLUCONATE 324 MG TAB PO SCH (07:53)
[2016-08-30] MEDS: OMEPRAZOLE 20 MG CAP PO SCH ×2 (07:53→21:08)
[2016-08-30] MEDS: LACTULOSE 20 GM/30 ML SYRUP UD PO SCH ×2 (07:53→21:08)
[2016-08-30] MEDS: POTASSIUM CHLORIDE 10 MEQ SR TABLET PO SCH (07:54)
[2016-08-30] MEDS: DOCUSATE SODIUM 100 MG CAP PO SCH ×2 (07:54→21:02)
[2016-08-30] MEDS: METOCLOPRAMIDE 10 MG TAB PO SCH ×3 (07:54→21:09)
[2016-08-30] MEDS: SUCRALFATE 1 GM TAB PO SCH ×2 (07:54→21:08)
[2016-08-30] MEDS: ASPIRIN 81 MG ENTERIC TAB PO SCH (07:54)
[2016-08-30] MEDS: guaiFENesin ER 600 MG TAB PO SCH ×2 (07:55→21:03)
[2016-08-30] MEDS: FUROSEMIDE 40 MG TAB PO SCH (07:55)
[2016-08-30] MEDS: BISOPROLOL FUMARATE 5 MG TAB PO SCH (07:56)
[2016-08-30] MEDS: PREGABALIN 100 MG CAP (LYRICA) PO SCH ×3 (07:56→21:08)
[2016-08-30] MEDS: levETIRAcetam 250MG TABLET (KEPPRA) PO SCH ×4 (07:56→21:03)
[2016-08-30] MEDS: COLCHICINE 0.6 MG TAB PO SCH (07:56)
[2016-08-30] MEDS: HumaLOG INSULIN (NovoLOG) PER UNIT SC SCH ×4 (07:57→21:09)
[2016-08-30] MEDS: SODIUM CHLORIDE 0.9% INJ 10 ML SYR IV SCH (07:58)
[2016-08-30] MEDS: amLODIPine 5 MG TAB PO SCH (07:58)
[2016-08-30] MEDS: AMMONIUM LACTATE 12% TOP SCH ×2 (07:59→21:13)
[2016-08-30] MEDS: LEVEMIR (INSULIN DETEMIR) 1 UNITS/0.01ML SC SCH ×2 (09:00→21:10)
--- NOTE | 2016-08-30 09:09 | IPN ---
DATE: 08/30/2016 ATTENDING PHYSICIAN: Dr. Pool PRIMARY CARE PROVIDER: Dr. Villalobos Maricarmen was seen on [facility]. Per Dr. Pool's notes, anticipation is that she will be discharged in the next few days. Note she is a high utilizer with frequent admissions. She identifies Dr. Villalobos as her primary care provider and Dr. Del Cid as her international recruiter. It looks like she has had six hospitalizations already this year. Readmitted most recently after just three days. Today, she feels less short of breath. Says she is pretty much at her baseline. She denies orthopnea. She denies palpitations or chest pain. She had another good diuresis yesterday, about 1400 mL net negative. PHYSICAL EXAMINATION: 121/61. Pulse 87. 94% oxygen saturation on 2 liters. General Appearance: Resting comfortably. No distress. Cushingoid appearing. No jugular venous distention (JVD). Lungs: Decreased breath sounds, but clear. Heart: Regular rhythm. Abdomen: Soft. Nontender. Trace to 1+ peripheral edema. LABS: We do not have any lab work ordered for today. Blood cultures are negative. Urine grew out some Pseudomonas for which she is on Cefepime. IMPRESSION: 1. Acute shortness of breath. Multifactorial. Looks like she probably has some right sided heart failure as well as obstructive sleep apnea. She is diuresing gradually and seems to be responding to this. I do not have any lab work for today. I have ordered some for tomorrow. 2. Asymptomatic bacteruria. The patient had a week of Cefepime. This was discontinued on 08/28/2016. 3. Diabetes. Blood sugars were elevated. Currently not on any basal insulin. Had been on high dose of Levemir earlier in the hospitalization and it was discontinued when she had a hypoglycemic episode. Apparently uses 150 units twice daily at home. Her daily insulin requirements have been approximately 50 to 60 units here suggesting gross noncompliance with dietary therapy at home. I will restart some Levemir today at a reduced dose compared to her outpatient dosing. 4. Obstructive sleep apnea (MATT). Continue BiPAP. 5. History of seizures. Continue her Keppra. 6. Acute renal failure. I am ordering some labs for tomorrow. Patient and Family Service (PFS) will need to get involved prior to discharge. Would also suggest contacting Dr. Villalobos, her primary care provider, to see if some coordination can be made to try to reduce the patient's frequent hospitalizations.
[2016-08-30 09:19] LABS: CALCIUM LEVEL 8.6 MG/DL (8.8-10.2); CREATININE FOR GFR 1.29 MG/DL (0.55-1.02); GLOMERULAR FILTRATION RATE 43.2 (>39); POTASSIUM SERUM 3.5 MEQ/L (3.5-5.1)
[2016-08-30 10:23] LABS: MEAN CORPUSCULAR HGB CONC 27.8 g/dl (32.0-36.5); MEAN CORPUSCULAR VOLUME 82.8 fl (80.0-96.0); RED CELL DISTRIBUTION WIDTH 19.3 % (11.5-14.5); WHITE BLOOD COUNT 5.7 K/mm3 (4.0-10.0)
[2016-08-30] MEDS: FLUoxetine 20 MG CAP PO SCH (12:32)
[2016-08-30 14:00] VITALS: BP 119/60
[2016-08-30 19:40] VITALS: O2SAT 94
[2016-08-30] MEDS: PERCOCET 5MG/325MG TAB PO PRN (21:02)
[2016-08-30 22:00] VITALS: BP 131/60
[2016-08-31] MEDS: HEPARIN SOD (PORCINE) 5000 UNITS/ML VIAL SC SCH (05:39)
[2016-08-31] MEDS: SODIUM CHLORIDE 0.9% INJ 10 ML SYR IV PRN ×2 (05:49→12:00)
[2016-08-31 06:00] VITALS: BP 146/67
[2016-08-31 06:01] LABS: MEAN CORPUSCULAR HEMOGLOBIN 23.3 pg (27.0-33.0); MEAN CORPUSCULAR HGB CONC 28.5 g/dl (32.0-36.5); MEAN CORPUSCULAR VOLUME 81.7 fl (80.0-96.0); RED CELL DISTRIBUTION WIDTH 19.5 % (11.5-14.5); WHITE BLOOD COUNT 5.8 K/mm3 (4.0-10.0)
[2016-08-31 06:11] LABS: CALCIUM LEVEL 8.5 MG/DL (8.8-10.2); CREATININE FOR GFR 1.2 MG/DL (0.55-1.02); POTASSIUM SERUM 3.5 MEQ/L (3.5-5.1)
[2016-08-31] MEDS: IPRATROPIUM 0.5MG/ALBUTEROL 2.5MG INH SOL UD 3ML (DUONEB)(J7620) INH SCH ×2 (07:27→11:17)
[2016-08-31] MEDS: TIOTROPIUM INHALER/CAPSULE (SPIRIVA) INH SCH (07:27)
[2016-08-31] MEDS: SODIUM CHLORIDE 0.9% INJ 10 ML SYR IV SCH (08:54)
[2016-08-31] MEDS: LACTULOSE 20 GM/30 ML SYRUP UD PO SCH (08:55)
[2016-08-31] MEDS: COLCHICINE 0.6 MG TAB PO SCH (08:55)
[2016-08-31] MEDS: POTASSIUM CHLORIDE 10 MEQ SR TABLET PO SCH (08:55)
[2016-08-31] MEDS: amLODIPine 5 MG TAB PO SCH (08:55)
[2016-08-31 08:56] VITALS: BP 146/67
[2016-08-31] MEDS: OMEPRAZOLE 20 MG CAP PO SCH (08:56)
[2016-08-31] MEDS: BISOPROLOL FUMARATE 5 MG TAB PO SCH (08:56)
[2016-08-31] MEDS: FERROUS GLUCONATE 324 MG TAB PO SCH (08:56)
[2016-08-31] MEDS: levETIRAcetam 250MG TABLET (KEPPRA) PO SCH (08:57)
[2016-08-31] MEDS: guaiFENesin ER 600 MG TAB PO SCH (08:57)
[2016-08-31] MEDS: ASPIRIN 81 MG ENTERIC TAB PO SCH (08:57)
[2016-08-31] MEDS: METOCLOPRAMIDE 10 MG TAB PO SCH (08:57)
[2016-08-31] MEDS: PREGABALIN 100 MG CAP (LYRICA) PO SCH (08:57)
[2016-08-31] MEDS: DOCUSATE SODIUM 100 MG CAP PO SCH (08:58)
[2016-08-31] MEDS: FUROSEMIDE 40 MG TAB PO SCH (08:58)
[2016-08-31] MEDS: HumaLOG INSULIN (NovoLOG) PER UNIT SC SCH ×2 (08:59→12:00)
[2016-08-31] MEDS: AMMONIUM LACTATE 12% TOP SCH (09:00)
[2016-08-31] MEDS ORDERED: LEVEMIR (INSULIN DETEMIR) 1 UNITS/0.01ML SC SCH (09:00)
[2016-08-31] MEDS: SUCRALFATE 1 GM TAB PO SCH (09:02)
[2016-08-31] MEDS ORDERED: TIOT18INH INH (09:47)
[2016-08-31] MEDS ORDERED: FLUC150T PO (09:47)
[2016-08-31] MEDS ORDERED: AMLO5TAB2 PO (09:49)
[2016-08-31] MEDS: FLUoxetine 20 MG CAP PO SCH (12:01)
[2016-08-31] MEDS ORDERED: INCR1INH IN (14:45)
--- NOTE | 2016-09-01 15:23 | DSES ---
DATE OF ADMISSION: 08/23/2016 DATE OF DISCHARGE: 08/31/2016 PRIMARY CARE PROVIDER: Dr. Villalobos DISCHARGE DIAGNOSES: Diastolic congestive heart failure exacerbation. Moderate, persistent asthma. Asymptomatic Bacteruria with pseudomonas, completed therapy with cefepime. Diabetes. Complex obstructive sleep apnea syndrome on bilevel pressure therapy since 2006. Gout. Seizure disorder. Hypertension. Gastroesophageal reflux disease. Chronic hypoxic respiratory failure on 2 liters oxygen supplementation at home. Chronic anemia due to iron deficiency. Morbid obesity. Paralyzed right hemidiaphragm. History of arachnoiditis. History of deep venous thrombosis (DVT), has inferior vena cava (IVC) filter in place. Migraines. Seasonal allergies. Irritable bowel syndrome. Depression. Restrictive lung disease secondary to obesity and nonfunctioning right hemidiaphragm, status post plication. Chronic kidney disease stage III. Baseline creatinine around 1.3 to 1.4. DISCHARGE MEDICATIONS: - amlodipine 5 mg by mouth daily - fluconazole 150 mg two doses - Incruse Ellipta 62.5 mcg inhalation once a day - acetaminophen 650 mg by mouth every 8 hours as needed pain - albuterol/ipratropium 0.5/2.5 one solution inhalation four times a day - Amitiza 24 mcg by mouth at bedtime - ammonium lactate 12% cream topically twice a day - aspirin 81 mg by mouth daily - bisoprolol 2.5 mg by mouth daily - colchicine 0.6 mg by mouth daily - cranberry extract 500 mg by mouth three times a day - Colace 100 mg by mouth twice a day - ergocalciferol 50,000 units by mouth monthly - ferrous gluconate 324 mg by mouth daily - Fioricet/codeine one capsule by mouth three times a day as needed headache - Fluoxetine 20 mg by mouth daily - Mucinex 600 mg by mouth twice a day - Levemir insulin 50 units subcutaneously twice a day with instructions to increase by 20 units per day if blood glucose level remains persistently above 200 - insulin aspart 16 units before meals - lactulose 30 mL by mouth twice a day - Keppra 500 mg by mouth four times a day - metoclopramide 10 mg by mouth three times a day - milk of magnesia 30 mL by mouth daily as needed constipation - omeprazole 20 mg by mouth twice a day - Zofran 4 mg by mouth four times a day - Lyrica 100 mg by mouth three times a day - scopolamine 1.5 mg topically every 72 hours as needed nausea - senna two tablets by mouth twice a day - Aldactone 25 mg by mouth twice a day - torsemide 20 mg by mouth twice a day - sucralfate 1 gram by mouth twice a day - Vagisil maximum strength 1% topically as needed itching HOSPITAL COURSE: This is a 71-year-old female who is a high utilizer with frequent admissions. Patient readmitted after 2 days from discharge. Patient was found to have fluid overload mild congestive heart failure (CHF) exacerbation, mild COPD exacerbation, and asymptomatic bacteriuria with pseudomonas. Patient was started on cefepime. Arterial blood gas (ABG) showed mild hypercarbic respiratory failure. Patient was restarted on her continuous positive airway pressure (CPAP) with some increased pressure support. Repeated ABG showed improvement. Patient was diuresed in the hospital which improved her volume status. She was also seen by Dr. Pedersen from inpatient mental health unit (IM) for possibility of generalized anxiety disorder and possible panic attacks; however, as per her, she felt her anxiety was due to medical condition and did not think needed any extra medication; she did suggest venlafaxine if symptoms persist. However, in view of her multiple medications, we opted not to start her on venlafaxine at this time. Patient was also seen by Dr. Guzman from pulmonology, and it was felt that she also had restrictive lung disease secondary to obesity and nonfunctioning right hemidiaphragm, status post plication. Patient had a sniff test while in the hospital to assess the function of the diaphragm. There was no evidence of paradoxical diaphragmatic motion on either side. There was somewhat decreased diaphragmatic movement amplitude. The sniff test was performed before and after the patient was placed on AVAPS machine. During hospitalization , patient also had revision of a chest port. Her right chest port was removed and a new one was placed which was then functioning properly. On the day of discharge, patient is functioning at baseline, symptoms are controlled. Vital signs are stable, and patient is going to be discharged home in stable condition. PHYSICAL EXAM: VITAL SIGNS: Temperature 98.3, pulse 84, respiratory rate 16, blood pressure 146/67, pulse oximetry 94% on room air. GENERAL: Patient awake, alert, oriented times three, laying down in bed, in no acute distress. HEENT: Normocephalic, atraumatic. Moist mucous membranes. Anicteric eyes. CHEST: Diminished breath sounds. CARDIOVASCULAR: S1, S2, regular. No rub, murmur, or gallop. ABDOMEN: Obese, soft, nontender. Bowel sounds present. EXTREMITIES: Trace edema. LABORATORY DATA: WBC 5.8, hemoglobin 9.8, platelets 300. Sodium 140, potassium 3.5, chloride 101, bicarbonate 32, BUN 7, creatinine 1.2, glucose 361, calcium 8.5. DISPOSITION: Patient is discharge home in stable condition. DISCHARGE INSTRUCTIONS: Patient to follow with primary care provider in 3 days. Carbohydrate-consistent and 2-gram sodium diet, fluid restriction 1800 mL per day. Activity as tolerated. MTDD
== END 2016-08-31 12:50 | disposition home or self-care (01) | DRG 202 ==
LOC: M ED 12:10 → M ED INP 14:04 → M MS5PR 15:45 → OBSVTOIN 08-23 15:05
PROVIDERS: ADMIT Internal Medicine Nephrology; ATTEND Internal Medicine Nephrology
PROC: 0JH60XZ Insertion of Tunneled Vascular Access Device into Chest Subcutaneous Tissue and Fascia, Open Approach (ICD-10-PCS; principal; 2016-08-25)
DX: J45.41 Moderate persistent asthma with (acute) exacerbation (principal); J18.9 Pneumonia, unspecified organism; I50.31 Acute diastolic (congestive) heart failure; E66.2 Morbid (severe) obesity with alveolar hypoventilation; Z68.42 Body mass index [BMI] 45.0-49.9, adult; I13.0 Hypertensive heart and chronic kidney disease with heart failure and stage 1 through stage 4 chronic kidney disease, or unspecified chronic kidney disease; J96.11 Chronic respiratory failure with hypoxia; R78.81 Bacteremia; T82.898A Other specified complication of vascular prosthetic devices, implants and grafts, initial encounter; E11.9 Type 2 diabetes mellitus without complications; G47.33 Obstructive sleep apnea (adult) (pediatric); K21.9 Gastro-esophageal reflux disease without esophagitis; D50.9 Iron deficiency anemia, unspecified; N18.3 Chronic kidney disease, stage 3 (moderate); M10.9 Gout, unspecified; G40.909 Epilepsy, unspecified, not intractable, without status epilepticus; G43.909 Migraine, unspecified, not intractable, without status migrainosus; Z86.73 Personal history of transient ischemic attack (TIA), and cerebral infarction without residual deficits; F32.9 Major depressive disorder, single episode, unspecified; J98.6 Disorders of diaphragm; Z79.899 Other long term (current) drug therapy; Z79.82 Long term (current) use of aspirin; Z79.4 Long term (current) use of insulin; B96.5 Pseudomonas (aeruginosa) (mallei) (pseudomallei) as the cause of diseases classified elsewhere; Z88.8 Allergy status to other drugs, medicaments and biological substances; Z88.0 Allergy status to penicillin; Z88.2 Allergy status to sulfonamides; E03.9 Hypothyroidism, unspecified; F41.0 Panic disorder [episodic paroxysmal anxiety]; E87.6 Hypokalemia

== ENCOUNTER 2016-09-08 22:47 | Emergency (ER) | payer MEDICARE, MEDICAID ==
[~2016-09-08] VITALS: Ht 170.2 cm; Wt 116.1 kg
[~2016-09-08 22:47] MED LIST changes: +AMLO5TAB2 PO; +FLUC150T PO; +HALO0.052 TOP; +INCR1INH IN; +TIOT18INH INH
[2016-09-08] MEDS ORDERED: SPIR1CAP INH (23:00)
[2016-09-08] MEDS ORDERED: NS 1,000 ML IV ONE (23:30)
[2016-09-09 00:25] LABS: ABG BASE EXCESS 2.6 (-2.0-2.0); ABG HCO3 27.9 MEQ/L (22.0-26.0); ABG PARTIAL PRESSURE O2 50.4 mmHg (75.0-100.0); ABG STANDARD HCO3 26.5 MEQ/L (22.0-26.0); ABG TOTAL CO2 29.3 MEQ/L (23.0-31.0); ABG pH (ARTERIAL) 7.401 UNITS (7.350-7.450)
[2016-09-09 00:38] LABS: BASO # 0.1 K/mm3 (0.0-0.2); BASO % 1.1 % (0.0-1.0); EOS # 0.1 K/mm3 (0.0-0.50); EOS % 1.8 % (0.0-3.0); LARGE UNSTAINED CELL # 0.2 K/mm3 (0.0-0.4); LARGE UNSTAINED CELL % 2.7 % (0.0-4.0); LYMPH % 28.7 % (24.0-44.0); MEAN CORPUSCULAR HEMOGLOBIN 23.4 pg (27.0-33.0); MEAN CORPUSCULAR HGB CONC 29.5 g/dl (32.0-36.5); MEAN CORPUSCULAR VOLUME 79.3 fl (80.0-96.0); MONO # 0.7 K/mm3 (0.0-0.8); MONO % 10.1 % (0.0-5.0); NEUTROPHILS # 3.6 K/mm3 (1.8-7.7); NEUTROPHILS % 55.5 % (36.0-66.0); PLATELET COUNT, AUTOMATED 266 k/mm3 (150-450); RED CELL DISTRIBUTION WIDTH 18.5 % (11.5-14.5); WHITE BLOOD COUNT 6.4 K/mm3 (4.0-10.0)
[2016-09-09 00:39] LABS: ADD MORPHOLOGY? YES
[2016-09-09 01:17] LABS: CALCIUM LEVEL 9.2 MG/DL (8.8-10.2); CREATININE FOR GFR 2.14 MG/DL (0.55-1.02); GLOMERULAR FILTRATION RATE 24.1 (>39); POTASSIUM SERUM 3.7 MEQ/L (3.5-5.1)
[2016-09-09 01:20] LABS: ANISOCYTOSIS 2+; HYPOCHROMASIA 1+; MICROCYTOSIS 1+
[2016-09-09 01:22] LABS: POLYCHROMASIA 1+; STOMATOCYTES 1+
[2016-09-09] MEDS ORDERED: POTASSIUM CHLORIDE 10 MEQ SR TABLET PO ONE ×2 (02:00→04:15)
[2016-09-09] MEDS ORDERED: HumuLIN R (REGULAR) INSULIN (NovoLIN R) **100U/ML** PER UNIT IV ONE ×2 (02:00→04:15)
[2016-09-09] MEDS ORDERED: NS 1,000 ML IV ONE (04:15)
[2016-09-09 06:44] VITALS: BP 127/59
== END 2016-09-09 06:47 | disposition home or self-care (01) ==
LOC: M ED 23:45
DX: E11.65 Type 2 diabetes mellitus with hyperglycemia (principal); Z79.4 Long term (current) use of insulin; Z79.51 Long term (current) use of inhaled steroids; Z79.82 Long term (current) use of aspirin; Z79.899 Other long term (current) drug therapy; Z88.0 Allergy status to penicillin; Z88.2 Allergy status to sulfonamides; Z88.5 Allergy status to narcotic agent; Z88.1 Allergy status to other antibiotic agents; Z88.8 Allergy status to other drugs, medicaments and biological substances; Z91.040 Latex allergy status; Z91.09 Other allergy status, other than to drugs and biological substances

== ENCOUNTER → 2016-09-27 | Outpatient (REF) | payer MEDICARE, MEDICAID ==
[2016-09-27 16:27] LABS: ALBUMIN 3.2 GM/DL (3.2-5.2); CALCIUM LEVEL 8.8 MG/DL (8.8-10.2); CREATININE FOR GFR 2.02 MG/DL (0.55-1.02); GLOMERULAR FILTRATION RATE 25.8 (>39); MAGNESIUM LEVEL 2.5 MG/DL (1.8-2.4); PHOSPHORUS LEVEL 1.6 MG/DL (2.5-4.9); POTASSIUM SERUM 3.5 MEQ/L (3.5-5.1); URIC ACID 9.3 MG/DL (2.6-6.0)
[2016-09-27 16:37] LABS: BASO # 0.1 K/mm3 (0.0-0.2); EOS # 0.2 K/mm3 (0.0-0.50); EOS % 2.7 % (0.0-3.0); LARGE UNSTAINED CELL # 0.2 K/mm3 (0.0-0.4); LARGE UNSTAINED CELL % 2.4 % (0.0-4.0); LYMPH # 1.5 K/mm3 (1.5-4.5); LYMPH % 20.4 % (24.0-44.0); MEAN CORPUSCULAR HEMOGLOBIN 22.3 pg (27.0-33.0); MEAN CORPUSCULAR HGB CONC 28.6 g/dl (32.0-36.5); MEAN CORPUSCULAR VOLUME 77.7 fl (80.0-96.0); MONO # 0.5 K/mm3 (0.0-0.8); MONO % 7.3 % (0.0-5.0); NEUTROPHILS # 4.9 K/mm3 (1.8-7.7); NEUTROPHILS % 66.2 % (36.0-66.0); PLATELET COUNT, AUTOMATED 305 k/mm3 (150-450); RED CELL DISTRIBUTION WIDTH 17.6 % (11.5-14.5); WHITE BLOOD COUNT 7.3 K/mm3 (4.0-10.0)
[2016-09-27 16:38] LABS: ADD MORPHOLOGY? YES
[2016-09-27 19:31] LABS: ANISOCYTOSIS 1+; HYPOCHROMASIA 2+; MICROCYTOSIS 1+
== END ==
LOC: M LAB REF 15:35
PROVIDERS: ATTEND Internal Medicine Nephrology
DX: N18.9 Chronic kidney disease, unspecified (principal); N17.9 Acute kidney failure, unspecified; D63.1 Anemia in chronic kidney disease; N25.81 Secondary hyperparathyroidism of renal origin

== ENCOUNTER 2016-10-04 18:23 | Inpatient (IN) | payer MEDICARE, MEDICAID ==
[~2016-10-04] VITALS: Ht 170.2 cm; Wt 117.4 kg
[~2016-10-04 18:23] MED LIST changes: -AMIT24CA5 PO; +AMIT24CA7 PO; -BACL-67 PO; -BACL10TA PO; +BACL1TAB8 PO; +BACL1TAB9 PO; -DOCU100C PO; +DOCU100C16 PO; -GUAI60TA PO; +KEPP1TAB PO; -KEPP500T6 PO; +LEVA1TAB PO; -LEVA250T PO; -LEVA750T PO; +LEVA750T7 PO; -LYRI100C10 PO; +MUCI600T31 PO; -MUCI600T34 PO; +MUCI600T37 PO; -NYST100024; +NYST1POW9; -PRED10TA PO; +PRED10TA2 PO; +PREG100CA PO; -PROA1AER INH; +PROAAER10 INH; -SENO8.6T2 PO; +SENO8.6T5 PO; +VITA1CAP40 PO; -VITA50003 PO; +[UNRECOGNIZED DRUG - CODE] PV; -[UNRECOGNIZED DRUG - CODE] TOP
--- NOTE | 2016-10-04 19:57 | REP ---
Clinical: Dyspnea and cough. Comparison: 09/13/2016. Findings: Stable cardiomegaly. Right-sided Dvoocr-N-Zlbw with tip in the SVC. Diffuse chronic interstitial changes are appreciated subtle superimposed right basilar atelectasis and small pleural reaction cannot be excluded. No pneumothorax. Impression: Stable cardiomegaly and diffuse chronic interstitial changes. Cannot exclude superimposed basilar atelectasis and small pleural reaction. Signed by Ramos Chaparro MD 10/04/2016 07:49 P
[2016-10-04 20:12] LABS: BASO % 0.7 % (0.0-1.0); EOS # 0.2 K/mm3 (0.0-0.50); EOS % 2.4 % (0.0-3.0); LARGE UNSTAINED CELL # 0.3 K/mm3 (0.0-0.4); LARGE UNSTAINED CELL % 3.3 % (0.0-4.0); LYMPH % 25.3 % (24.0-44.0); MEAN CORPUSCULAR HEMOGLOBIN 21.8 pg (27.0-33.0); MEAN CORPUSCULAR VOLUME 75.2 fl (80.0-96.0); MONO # 0.6 K/mm3 (0.0-0.8); MONO % 7.5 % (0.0-5.0); NEUTROPHILS # 4.7 K/mm3 (1.8-7.7); NEUTROPHILS % 60.9 % (36.0-66.0); PLATELET COUNT, AUTOMATED 311 k/mm3 (150-450); RED CELL DISTRIBUTION WIDTH 17.6 % (11.5-14.5); WHITE BLOOD COUNT 7.7 K/mm3 (4.0-10.0)
[2016-10-04 20:24] LABS: ADD MORPHOLOGY? YES
[2016-10-04 20:25] LABS: CALCIUM LEVEL 8.9 MG/DL (8.8-10.2); CREATININE FOR GFR 1.69 MG/DL (0.55-1.02); GLOMERULAR FILTRATION RATE 31.7 (>39); POTASSIUM SERUM 3.1 MEQ/L (3.5-5.1)
[2016-10-04] MEDS ORDERED: FUROSEMIDE 100 MG/10 ML VIAL (J1940) IV ONE (20:45)
[2016-10-04] MEDS ORDERED: IPRATROPIUM 0.5MG/ALBUTEROL 2.5MG INH SOL UD 3ML (DUONEB)(J7620) NEB ONE (20:46)
[2016-10-04 20:50] LABS: ANISOCYTOSIS 1+; MICROCYTOSIS 2+
[2016-10-04 20:51] LABS: HYPOCHROMASIA 3+; POLYCHROMASIA 1+
[2016-10-04] MEDS: BETAMETHASONE VAL 0.1% CR 15 GM TOP SCH (21:00)
[2016-10-04] MEDS: LACTIC ACID 12% LOTION 225 GM BTL TOP SCH (21:00)
[2016-10-04] MEDS ORDERED: TORS100T PO ×2 (21:01→22:17)
[2016-10-04] MEDS ORDERED: ZOFR4TAB3 PO (21:01)
[2016-10-04] MEDS ORDERED: HUMU500S2 SC (21:01)
[2016-10-04] MEDS ORDERED: MORPHINE 4 MG/ML 1ML SYRINGE As Ordered ONE (21:04)
[2016-10-04] MEDS ORDERED: MORPHINE 4 MG/ML 1ML SYRINGE IV PRN (21:15)
[2016-10-04 21:33] LABS: ABG BASE EXCESS 6.2 (-2.0-2.0); ABG HCO3 30.8 MEQ/L (22.0-26.0); ABG PARTIAL PRESSURE CO2 44.9 mmHg (35.0-45.0); ABG PARTIAL PRESSURE O2 77.2 mmHg (75.0-100.0); ABG TOTAL CO2 32.2 MEQ/L (23.0-31.0); ABG pH (ARTERIAL) 7.454 UNITS (7.350-7.450)
[2016-10-04] MEDS ORDERED: ONDA4TAB5 PO (22:17)
[2016-10-04] MEDS ORDERED: AMLO5TAB2 PO (22:17)
[2016-10-04] MEDS ORDERED: NYST1POW9 TOP (22:17)
[2016-10-04] MEDS ORDERED: INCR1INH INH (22:17)
[2016-10-04] MEDS ORDERED: BETA115CR TOP (22:17)
[2016-10-05] MEDS ORDERED: FUROSEMIDE 100 MG/10 ML VIAL (J1940) IV ONE (00:15)
[2016-10-05] MEDS ORDERED: MOM 30ML SUSPENSION UDC PO PRN (00:15)
[2016-10-05] MEDS ORDERED: SCOPOLAMINE 1.5 MG TRANSDERMAL TOP PRN (00:15)
[2016-10-05] MEDS ORDERED: NYSTATIN 100,000 UNITS/GM TOPICAL PWD 15 GM TOP PRN (00:15)
[2016-10-05] MEDS ORDERED: ACETAMINOPHEN TAB 650MG DOSE (2X325MG) PO PRN (00:45)
[2016-10-05 01:15] VITALS: BP 140/62
[2016-10-05] MEDS: SPIRONOLACTONE 25 MG TAB PO SCH ×3 (01:52→20:46)
[2016-10-05] MEDS: PREGABALIN 100 MG CAP (LYRICA) PO SCH ×4 (01:52→20:47)
[2016-10-05] MEDS: SUCRALFATE 1 GM TAB PO SCH ×3 (01:52→20:47)
[2016-10-05] MEDS: METOCLOPRAMIDE 10 MG TAB PO SCH ×4 (01:52→20:47)
[2016-10-05] MEDS: OMEPRAZOLE 20 MG CAP PO SCH ×3 (01:52→20:47)
[2016-10-05] MEDS: SENOKOT S TAB PO SCH ×3 (01:52→20:46)
[2016-10-05] MEDS: DOCUSATE SODIUM 100 MG CAP PO SCH ×3 (01:52→20:46)
[2016-10-05] MEDS: LACTULOSE 20 GM/30 ML SYRUP UD PO SCH ×3 (01:53→20:46)
[2016-10-05] MEDS ORDERED: POTASSIUM CHLORIDE 10 MEQ SR TABLET PO ONE (04:00)
[2016-10-05] MEDS ORDERED: SODIUM CHLORIDE 0.9% INJ 10 ML SYR IV PRN (05:30)
[2016-10-05 06:00] VITALS: BP 142/64
[2016-10-05 06:10] LABS: BASO # 0.1 K/mm3 (0.0-0.2); EOS # 0.2 K/mm3 (0.0-0.50); EOS % 3.2 % (0.0-3.0); LARGE UNSTAINED CELL # 0.3 K/mm3 (0.0-0.4); LARGE UNSTAINED CELL % 4.3 % (0.0-4.0); LYMPH # 1.7 K/mm3 (1.5-4.5); LYMPH % 26.3 % (24.0-44.0); MEAN CORPUSCULAR HEMOGLOBIN 21.9 pg (27.0-33.0); MEAN CORPUSCULAR HGB CONC 28.6 g/dl (32.0-36.5); MEAN CORPUSCULAR VOLUME 76.5 fl (80.0-96.0); MONO # 0.5 K/mm3 (0.0-0.8); MONO % 8.3 % (0.0-5.0); NEUTROPHILS # 3.6 K/mm3 (1.8-7.7); PLATELET COUNT, AUTOMATED 281 k/mm3 (150-450); RED CELL DISTRIBUTION WIDTH 17.7 % (11.5-14.5); WHITE BLOOD COUNT 6.3 K/mm3 (4.0-10.0)
[2016-10-05 06:13] LABS: ADD MORPHOLOGY? YES
[2016-10-05 06:28] LABS: CALCIUM LEVEL 8.6 MG/DL (8.8-10.2); CREATININE FOR GFR 1.59 MG/DL (0.55-1.02); POTASSIUM SERUM 3.1 MEQ/L (3.5-5.1)
[2016-10-05] MEDS ORDERED: AZITHROMYCIN INJ 500 MG, VIAL MATE ADAPTER 1 EACH in D5W 250 ML IV ONE (07:00)
[2016-10-05 07:12] LABS: HYPOCHROMASIA 2+
[2016-10-05 07:15] LABS: ANISOCYTOSIS 1+
--- NOTE | 2016-10-05 07:35 | HPEPDOC ---
General Date of Admission Oct 04, 2016 at 22:05 Primary Care Physician: Jr Villalobos Collins Chief Complaint The patient is a 71-year-old female admitted with a reason for visit of Dyspnea. Source: Patient, Old records Exam Limitations: No limitations, Clinical conditions History of Present Illness Pt is 71f history of morbid obesity, HTN, IDDM-uncontrolled, hyperlipidemia, MATT on CPAP, chronic anemia, chronic hypoxic resp failure on home oxygen, seizures, paralyzed R hemidiaphragm, migraines, depression, DVT s/p IVC filter placement, poor adherence to medications and diet who presents with acute dyspnea. Pt reports being in her usual state of health when developed acute onset dyspnea on the day of admit. Pt reports that her dyspnea was associated with cough and productive brown sputum which has not changed significantly, and subjective fevers. She denied nausea, vomiting, diarrhea, rigors, abdominal pain. She did report eating fried chicken prior to her sudden-onset dyspnea. Home Medications Scheduled (Amitiza) 24 Mcg Cap, 24 MCG PO QHS, (Reported) (Ammonium Lactate) 12 % Cre, 1 DOSE TOP BID, (Reported) APPLY TO LEGS AND FEET (Incruse Ellipta) 62.5 Mcg/Inh Inh, 62.5 MCG INH DAILY, (Reported) Amlodipine Besylate (Amlodipine Besylate) 5 Mg Tab, 5 MG PO DAILY, (Reported) Aspirin (Aspirin 81) 81 Mg Tab, 81 MG PO DAILY, (Reported) Betamethasone Mala (Betamethasone Valerate) 1 Dose/15 Gm Cream, 1 DOSE TOP QHS, ( Reported) USES ON LEGS FOR HOT SPOTS RELATED TO DIABETES Bisoprolol Fumarate (Bisoprolol Fumarate) 5 Mg Tab, 2.5 MG PO DAILY, (Reported) Colchicine (Colchicine) 0.6 Mg Tab, 0.6 MG PO DAILY, (Reported) Cranberry Extract (Cranberry) 500 Mg Cap, 500 MG PO TID, (Reported) Docusate Sodium (Docusate Sodium) 100 Mg Cap, 100 MG PO BID, (Reported) Ergocalciferol (Vitamin D) 50,000 Unit Cap, 50,000 UNIT PO MTHLY, (Reported) TAKES ON 1ST OF THE MONTH Fluoxetine Hcl (Fluoxetine) 20 Mg Cap, 20 MG PO DAILY, (Reported) TAKES AT NOON Insulin Aspart (Novolog) 100 U/Ml Inj, 16 UNITS SC AC, (Reported) Insulin Human Regular (Humulin R U-500 Kwikpen) 500 Unit/Ml Inj, 150 UNIT SC DAILY, (Reported) Lactulose (Lactulose) 10 Gm/15 Ml Radha, 30 ML PO BID, (Reported) MIX WITH JUICE Levetiracetam (Keppra) 500 Mg Tab, 500 MG PO QID, (Reported) Metoclopramide HCl (Reglan) 10 Mg Tab, 10 MG PO TID, (Reported) Omeprazole (Omeprazole) 20 Mg Cap, 20 MG PO BID, (Reported) Ondansetron HCl (Ondansetron HCl) 4 Mg Tab, 4 MG PO QID, (Reported) Pregabalin (Lyrica) 100 Mg Cap, 100 MG PO TID, (Reported) Senna (Senokot) 8.6 Mg Tab, 2 TAB PO BID, (Reported) Spironolactone (Aldactone) 25 Mg Tab, 25 MG PO BID, (Reported) Sucralfate (Sucralfate) 1 Gm Tab, 1 GM PO BID, (Reported) Torsemide (Torsemide) 100 Mg Tab, 100 MG PO DAILY, (Reported) Torsemide (Torsemide) 100 Mg Tab, 50 MG PO QPM, (Reported) Scheduled PRN (Fioricet/Codeine [id number] mg) 1 Cap Cap, 1 CAP PO TID PRN for HEADACHE, ( Reported) (Vagisil Maximum Strength) 1 % Mis, 1 DOSE TOP BID PRN for ITCHING, (Reported) Acetaminophen (Tylenol 8 Hour Arthritis) 650 Mg Tab, 650 MG PO Q8H PRN for PAIN, (Reported) Albuterol/Ipratropium (Ipratropium [place]/Albut 0.5-2.5 (3) mg/3Ml) 1 Radha Radha, 1 RADHA INH QID PRN for SHORTNESS OF BREATH, (Reported) Milk Of Magnesia (Milk of Magnesia) 1,200 Mg/15 Ml Esperanza, 30 ML PO DAILY PRN for CONSTIPATION, (Reported) Nystatin (Nystatin Powder) 100,000 Unit/Gm Pow, 1 DOSE TOP BID PRN for RASH, ( Reported) PLACES UNDER BREASTS Scopolamine (Transderm-Scop) 1.5 Mg Dis, 1.5 MG TOP Q72H PRN for NAUSEA, ( Reported) UNSURE OF WHEN IT WAS PUT ON, BUT THINKS IT WAS 3 DAYS AGO Allergies Coded Allergies: Cephalosporins (Verified Allergy, Intermediate, KEFLEX - HIVES, 08/05/16) Chlorpromazine (Verified Allergy, Intermediate, HIVES, 08/05/16) Loratadine (Verified Allergy, Intermediate, HIVES, 08/05/16) Penicillins (Verified Allergy, Intermediate, HIVES, 08/05/16) Pentazocine (Verified Allergy, Intermediate, HIVES, 08/05/16) Sulfa Antibiotics (Unverified Allergy, Intermediate, HIVES, 08/05/16) Iodine (Verified Allergy, Unknown, 08/05/16) Methadone (Verified Allergy, Unknown, 08/05/16) Fluticasone (Verified Adverse Reaction, Mild, THRUSH, 08/05/16) Latex (Verified Adverse Reaction, Mild, RISK, 08/05/16) Salmeterol (Verified Adverse Reaction, Mild, THRUSH, 08/05/16) Past Medical History Medical History 1. COPD exacerbation secondary to rhinovirus enterovirus. 2. Insulin-dependent diabetes, uncontrolled. 3. Anemia. 4. COPD. 5. Respiratory failure and hypoxia. 6. Chronic iron deficiency anemia. 7. Diabetes. 8. Hypertension. 9. Morbidly obese. 10. Obstructive sleep apnea, on continuous positive airway pressure. 11. Seizure disorder. 12. 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 13. Chronic diastolic congestive heart failure. 14. History of arachnoiditis. 15. History of deep vein thrombosis (DVT) prophylaxis. Has inferior vena cava filter in place. 16. Irritable bowel syndrome. 17. Gastroesophageal reflux disease (GERD). 18. Migraine headache. 19. Depression. 20. Seasonal allergies. Surgical History 1. Colonoscopy. 2. Inferior vena cava placement in 2016. 3. Right hip surgery. 4. Right knee surgery. 5. Hysterectomy. 6. Lung surgery. 7. Back surgery. 8. Left ankle surgery. 9. Tonsillectomy. 10. Central venous port placement, removed. Family History Significant Family History: Noncontributory Social History * Smoker: non-smoker Alcohol: occationally Drugs: denies Psychosocial History: Depression Lives with her ex-. Review of Symptoms Constitutional: Reports: Malaise, Weakness, Fatigue, Weight Loss, Lethargy, Other, Denies: Chills, Fever, Night Sweats Eyes: Denies: Vision change ENT: Denies: Dysphagia, Sore Throat Skin: Reports: Rash, Lesions, Dry, Breakdown, Nail Changes, Other, Denies: Jaundice, Bruising, Itching Pulmonary: Reports: Dyspnea, Cough, Other Symptoms, Denies: Pleuritic Chest Pain Cardiovascular: Reports: Edema, Denies: Chest Pain, Palpitations, Paroxysmal Noc. Dyspnea Gastrointestinal: Denies: Nausea, Vomiting, Abdominal Pain, Diarrhea Genitourinary: Denies: Dysuria, Frequency Hematologic: Denies: Bruising Endocrine: Denies: Polydipsia, Polyuria Musculoskeletal: Reports: Back Pain, Denies: Neck Pain Neurological: Denies: Weakness, Numbness, Change in speech Psych: Reports: Mood Normal, Denies: Anxiety Physical Examination General Exam: Positive: Alert, Cooperative, Moderate Distress Eye Exam: Positive: Conjunctiva & lids normal, Negative: Sclera icteric ENT Exam: Positive: Atraumatic, Mucous membr. moist/pink Neck Exam: Positive: Supple, Negative: Lymphadenopathy Chest Exam: Positive: Rhonchi, Negative: Rales, Wheezing Heart Exam: Positive: Rate Normal, Regular Rhythm, Normal S1, Normal S2, Negative: Tachycardic, Bradycardic, Irregular Rhythm, Gallops, Murmurs, Rubs Abdomen Exam: Positive: Normal bowel sounds, Soft, Negative: Tenderness, Hepatospenomegaly Extremity Exam: Positive: Normal pulses, Negative: Clubbing, Cyanosis, Edema Skin Exam: Positive: Nl turgor and temperature, Negative: Rash, Breakdown Neuro Exam: Positive: Normal Speech, Sensation Intact, Cranial Nerves 3-12 NL Psych Exam: Positive: Mental status NL, Mood NL, Memory Intact, Oriented x 3 Vital Signs Vital Signs Date Time Temp Pulse Resp B/P (MAP) Pulse Ox O2 Delivery O2 Flow Rate FiO2 10/05/16 01:15 96.7 95 20 140/62 (88) 96 Nasal Cannula 2.0 Laboratory Data Labs 24H Laboratory Tests 2 10/04/16 19:45: White Blood Count 7.7, Red Blood Count 4.52, Hemoglobin 9.9L, Hematocrit 34.0L, Mean Corpuscular Volume 75.2L, Mean Corpuscular Hemoglobin 21.8L, Mean Corpuscular Hemoglobin Concent 29.0L, Red Cell Distribution Width 17.6H, Platelet Count 311, Neutrophils (%) (Auto) 60.9, Lymphocytes (%) (Auto) 25.3, Monocytes (%) (Auto) 7.5H, Eosinophils (%) (Auto) 2.4, Basophils (%) (Auto) 0.7 , Neutrophils # (Auto) 4.7, Lymphocytes # (Auto) 2.0, Monocytes # (Auto) 0.6, Eosinophils # (Auto) 0.2, Basophils # (Auto) 0.0, Large Unclassified Cells % 3.3 , Large Unclassified Cells # 0.3, Platelet Estimate NORMAL, Polychromasia 1+, Hypochromasia 3+, Anisocytosis 1+, Microcytosis 2+, Anion Gap 9, Glomerular Filtration Rate 31.7L, Blood Urea Nitrogen 13, Creatinine 1.69H, Sodium Level 140, Potassium Level 3.1L, Chloride Level 100, Carbon Dioxide Level 31, Calcium Level 8.9, B-Type Natriuretic Peptide 123H 10/04/16 21:23: Blood Gas Bicarbonate Standard 30.0H, Arterial Blood pH 7.454H, Arterial Blood Partial Pressure CO2 44.9, Arterial Blood Partial Pressure O2 77.2, Arterial Blood Total CO2 32.2H, Arterial Blood HCO3 30.8H, Arterial Blood Base Excess 6.2H, Arterial Blood Oxygen Saturation 95.4 CBC/BMP Laboratory Tests 10/04/16 19:45 Red Blood Count 4.52, Mean Corpuscular Volume 75.2 L, Mean Corpuscular Hemoglobin 21.8 L, Mean Corpuscular Hemoglobin Concent 29.0 L, Red Cell Distribution Width 17.6 H, Neutrophils (%) (Auto) 60.9, Lymphocytes (%) (Auto) 25.3, Monocytes (%) (Auto) 7.5 H, Eosinophils (%) (Auto) 2.4, Basophils (%) ( Auto) 0.7, Neutrophils # (Auto) 4.7, Lymphocytes # (Auto) 2.0, Monocytes # (Auto ) 0.6, Eosinophils # (Auto) 0.2, Basophils # (Auto) 0.0, Calcium Level 8.9 Assessment/Plan Pt is 71f history of morbid obesity, HTN, IDDM-uncontrolled, hyperlipidemia, chronic diastolic HFpEF (60% 04/20), pulmonary HTN, MATT on CPAP, chronic anemia, chronic hypoxic resp failure on home oxygen, seizures, paralyzed R hemidiaphragm , migraines, depression, DVT s/p IVC filter placement, poor adherence to medications and diet who presents with acute dyspnea and acute copd exac. 1 Dyspnea-acute copd At this time have low suspicion of acute diastolic HF as pt has no LE edema and bnp is under 300 Pt oxygenating well and no wheezes on exam after receiving lasix 80mg and duonebs in ED Would add abx for her acute copd exacerbation given change in sputum quality Duonebs q6h with q4h prn Zithromax-pt allergy to pcn/cephalosporins 2 HFpEF (60%) Pt said she had never had an echo, but review of chart shows she had one this past april EF 60% with diastolic dysfxn and moderate pulm htn Given bnp 123 low suspicion of acute on chronic HF exac Continue bb Continue fluid restriction (1500cc, although pt reported 2200cc) Continue diuresis-pt on bumex 80mg AM and 100mg PM, will change to iv lasix Continue aldactone Daily wts Monitor bmp and replete K prn 3 IDDM-uncontrolled HbA1c 9.5 (09/18)-records show her HbA1c hasn't been under 9 in last 2yrs, although she was usually at goal prior to that Continue regular insulin Continue humalog AC FS with sliding scale Continue lyrica Continue reglan 4 MATT/OHVS Continue nocturnal o2 Continue CPAP 5 Seizures Continue Keppra 6 CKD stage 3 Pt stable ckd stage 3-gfr usually in 40-50's, currently 32 but improved compared to prior admit Dose meds to renal fxn 7 HTN Continue ccb Continue bb Continue diuretics (usually on demadex, changed to lasix iv) 8 GERD Continue prilosec bid Continue carafate DVT prophylaxis Heparin sq Plan / VTE VTE Prophylaxis Ordered?: Yes Plan / Urinary Catheter Reason for insertion/continuin: Patient request Leander Yu MD Oct 05, 2016 03:54
--- NOTE | 2016-10-05 07:35 | ECGEPIP ---
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
[2016-10-05] MEDS: IPRATROPIUM 0.5MG/ALBUTEROL 2.5MG INH SOL UD 3ML (DUONEB)(J7620) INH SCH ×4 (07:50→19:49)
[2016-10-05] MEDS: COLCHICINE 0.6 MG TAB PO SCH (07:54)
[2016-10-05] MEDS: BISOPROLOL FUMARATE 5 MG TAB PO SCH (07:55)
[2016-10-05] MEDS: ASPIRIN 81 MG ENTERIC TAB PO SCH (07:56)
[2016-10-05] MEDS: levETIRAcetam 250MG TABLET (KEPPRA) PO SCH ×4 (07:56→20:47)
[2016-10-05] MEDS: FLUoxetine 20 MG CAP PO SCH (07:56)
[2016-10-05] MEDS: amLODIPine 5 MG TAB PO SCH (07:56)
[2016-10-05] MEDS: ONDANSETRON 4 MG TAB (S0181) PO SCH ×4 (07:56→20:47)
[2016-10-05] MEDS: HEPARIN SOD (PORCINE) 5000 UNITS/ML VIAL SC SCH ×2 (07:57→20:46)
[2016-10-05] MEDS: TORSEMIDE 100 MG TAB PO SCH (07:58)
[2016-10-05] MEDS: HumaLOG INSULIN (NovoLOG) PER UNIT SC SCH ×6 (07:59→20:48)
[2016-10-05] MEDS: SODIUM CHLORIDE 0.9% INJ 10 ML SYR IV SCH (07:59)
[2016-10-05] MEDS: LACTIC ACID 12% LOTION 225 GM BTL TOP SCH ×2 (08:00→20:49)
[2016-10-05] MEDS ORDERED: PANTOPRAZOLE 40MG TAB (PROTONIX) PO SCH (09:00)
[2016-10-05 10:00] VITALS: BP 134/61
[2016-10-05] MEDS: HUMULIN R U-500 KWIKPEN 500UNITS/ML 3ML SYRINGE (J1815 PER 5UNITS) SC SCH (12:02)
[2016-10-05] MEDS ORDERED: GLUCAGON FOR INJ 1 MG VIAL (J1610) SC PRN (12:15)
[2016-10-05] MEDS ORDERED: DEXTROSE 50% 50 ML SYRINGE IV PRN (12:15)
[2016-10-05] MEDS ORDERED: PERCOCET 5MG/325MG TAB PO PRN (12:15)
[2016-10-05] MEDS ORDERED: GLUCOSE 4 GM CHEW TABLET PO PRN (12:15)
[2016-10-05] MEDS: guaiFENesin ER 600 MG TAB PO SCH ×2 (12:49→20:47)
[2016-10-05 13:08] LABS: MAGNESIUM LEVEL 2.5 MG/DL (1.8-2.4); PHOSPHORUS LEVEL 3.1 MG/DL (2.5-4.9)
[2016-10-05 14:00] VITALS: BP 116/58
[2016-10-05 17:50] VITALS: BP 124/56
[2016-10-05] MEDS: BETAMETHASONE VAL 0.1% CR 15 GM TOP SCH (20:48)
[2016-10-05] MEDS ORDERED: TORSEMIDE (DEMADEX) 50 MG PER 1/2 TAB PO SCH (21:00)
[2016-10-05 22:00] VITALS: BP 140/63
[2016-10-06 02:00] VITALS: BP 135/64
[2016-10-06 06:00] VITALS: BP 142/62
[2016-10-06] MEDS: IPRATROPIUM 0.5MG/ALBUTEROL 2.5MG INH SOL UD 3ML (DUONEB)(J7620) INH SCH ×4 (07:56→19:56)
[2016-10-06 08:11] LABS: EOS # 0.2 K/mm3 (0.0-0.50); EOS % 4.4 % (0.0-3.0); LARGE UNSTAINED CELL # 0.1 K/mm3 (0.0-0.4); LARGE UNSTAINED CELL % 3.4 % (0.0-4.0); LYMPH # 1.3 K/mm3 (1.5-4.5); LYMPH % 28.6 % (24.0-44.0); MEAN CORPUSCULAR HEMOGLOBIN 21.3 pg (27.0-33.0); MEAN CORPUSCULAR HGB CONC 27.9 g/dl (32.0-36.5); MEAN CORPUSCULAR VOLUME 76.5 fl (80.0-96.0); MONO # 0.3 K/mm3 (0.0-0.8); MONO % 7.4 % (0.0-5.0); NEUTROPHILS # 2.3 K/mm3 (1.8-7.7); NEUTROPHILS % 55.3 % (36.0-66.0); PLATELET COUNT, AUTOMATED 253 k/mm3 (150-450); WHITE BLOOD COUNT 4.1 K/mm3 (4.0-10.0)
[2016-10-06 08:13] LABS: ADD MORPHOLOGY? YES
[2016-10-06 08:37] LABS: CALCIUM LEVEL 8.9 MG/DL (8.8-10.2); CREATININE FOR GFR 1.56 MG/DL (0.55-1.02); GLOMERULAR FILTRATION RATE 34.7 (>39); MAGNESIUM LEVEL 2.7 MG/DL (1.8-2.4); PHOSPHORUS LEVEL 3.5 MG/DL (2.5-4.9); POTASSIUM SERUM 3.6 MEQ/L (3.5-5.1)
[2016-10-06] MEDS: HUMULIN R U-500 KWIKPEN 500UNITS/ML 3ML SYRINGE (J1815 PER 5UNITS) SC SCH (09:00)
[2016-10-06 09:08] LABS: ANISOCYTOSIS 1+; HYPOCHROMASIA 1+; MICROCYTOSIS 1+
[2016-10-06] MEDS: HumaLOG INSULIN (NovoLOG) PER UNIT SC SCH ×7 (09:16→20:35)
[2016-10-06] MEDS: SODIUM CHLORIDE 0.9% INJ 10 ML SYR IV SCH (09:17)
[2016-10-06] MEDS: BISOPROLOL FUMARATE 5 MG TAB PO SCH (09:17)
[2016-10-06] MEDS: SENOKOT S TAB PO SCH ×2 (09:18→20:36)
[2016-10-06] MEDS: LACTULOSE 20 GM/30 ML SYRUP UD PO SCH ×2 (09:18→20:35)
[2016-10-06] MEDS: HEPARIN SOD (PORCINE) 5000 UNITS/ML VIAL SC SCH ×2 (09:18→20:35)
[2016-10-06] MEDS: METOCLOPRAMIDE 10 MG TAB PO SCH ×3 (09:18→20:36)
[2016-10-06] MEDS: FLUoxetine 20 MG CAP PO SCH (09:18)
[2016-10-06] MEDS: guaiFENesin ER 600 MG TAB PO SCH ×2 (09:19→20:36)
[2016-10-06] MEDS: levETIRAcetam 250MG TABLET (KEPPRA) PO SCH ×4 (09:19→20:36)
[2016-10-06] MEDS: TORSEMIDE 100 MG TAB PO SCH (09:19)
[2016-10-06] MEDS: ONDANSETRON 4 MG TAB (S0181) PO SCH ×4 (09:19→20:36)
[2016-10-06] MEDS: OMEPRAZOLE 20 MG CAP PO SCH ×2 (09:19→20:36)
[2016-10-06] MEDS: SUCRALFATE 1 GM TAB PO SCH ×2 (09:19→20:36)
[2016-10-06] MEDS: COLCHICINE 0.6 MG TAB PO SCH (09:19)
[2016-10-06] MEDS: AZITHROMYCIN 250 MG TAB PO SCH (09:20)
[2016-10-06] MEDS: SPIRONOLACTONE 25 MG TAB PO SCH ×2 (09:20→20:36)
[2016-10-06] MEDS: ASPIRIN 81 MG ENTERIC TAB PO SCH (09:20)
[2016-10-06] MEDS: amLODIPine 5 MG TAB PO SCH (09:20)
[2016-10-06] MEDS: PREGABALIN 100 MG CAP (LYRICA) PO SCH ×3 (09:20→20:36)
[2016-10-06] MEDS: DOCUSATE SODIUM 100 MG CAP PO SCH ×2 (09:20→20:36)
[2016-10-06] MEDS: LACTIC ACID 12% LOTION 225 GM BTL TOP SCH ×2 (09:21→20:37)
[2016-10-06 10:00] VITALS: BP 147/66
[2016-10-06 14:00] VITALS: BP 125/75
--- NOTE | 2016-10-06 14:13 | IPNPDOC ---
Subjective Date Seen The patient was seen on 10/06/16. Subjective Chief Complaint/HPI The patient is a 71-year-old female admitted with a reason for visit of Dyspnea. Events since last encounter still feels sob though better than yesterday. no chest pain, has a chronic cough though she cannot bring up any sputum. No fever or chills, no abdominal pain , nausea or vomiting or diarrhea. Objective Physical Examination General Exam: Positive: Alert, Cooperative, Moderate Distress Eye Exam: Positive: Conjunctiva & lids normal, Negative: Sclera icteric ENT Exam: Positive: Atraumatic, Mucous membr. moist/pink Neck Exam: Positive: Supple, Negative: Lymphadenopathy Chest Exam: Positive: Rhonchi, Negative: Rales, Wheezing Heart Exam: Positive: Rate Normal, Regular Rhythm, Normal S1, Normal S2, Negative: Tachycardic, Bradycardic, Irregular Rhythm, Gallops, Murmurs, Rubs Abdomen Exam: Positive: Normal bowel sounds, Soft, Negative: Tenderness, Hepatospenomegaly Extremity Exam: Positive: Normal pulses, Negative: Clubbing, Cyanosis, Edema Skin Exam: Positive: Nl turgor and temperature, Negative: Rash, Breakdown Neuro Exam: Positive: Normal Speech, Sensation Intact, Cranial Nerves 3-12 NL Psych Exam: Positive: Mental status NL, Mood NL, Memory Intact, Oriented x 3 Assessment /Plan Problems (1) Diastolic CHF, acute on chronic Status: Acute Problem Text: will continue with fluid restriction of 1.5 liters/ day , continue iv lasix. (2) Chronic respiratory failure with hypoxia Status: Chronic (3) MATT on CPAP Status: Chronic (4) CKD (chronic kidney disease) Status: Chronic Problem Text: stage 3 stable. (5) Diabetes Status: Chronic Response to Treatment: Stable Problem Text: continue home insulin. (6) Seizure disorder Status: Chronic (7) Hypothyroid Status: Chronic (8) Hepatitis C Status: Chronic (9) Obesity Status: Chronic (10) HTN (hypertension) Status: Chronic (11) Chronic back pain Status: Chronic (12) Paralyzed hemidiaphragm Status: Chronic (13) Restrictive airway disease Status: Chronic Problem Text: due to morbid obesity (14) Asthma Status: Chronic Problem Text: moderate persistent as per pul function test , does not have COPD. continue nebulizations. , oxygen. 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 (16) Gout Status: Chronic Plan/VTE VTE Prophylaxis Ordered?: Yes Plan/Urinary Catheter Reason for insertion/continuin: Patient request VS, I&O, 24H, Fishbone Vital Signs/I&O Vital Signs Date Time Temp Pulse Resp B/P (MAP) Pulse Ox O2 Delivery O2 Flow Rate FiO2 10/06/16 10:00 97.1 83 20 147/66 (93) 97 Nasal Cannula 2.0 I&O- Last 24 Hours up to 6 AM 10/06/16 06:00 Intake Total 925 ml Output Total 2175 ml Balance -1250 ml Laboratory Data 24H LABS Laboratory Tests 2 10/05/16 16:38: Bedside Glucose (Misc Panel) 398H 10/05/16 20:03: Bedside Glucose (Misc Panel) 407H 10/06/16 07:42: Bedside Glucose (Misc Panel) 337H 10/06/16 07:56: White Blood Count 4.1, Red Blood Count 4.12, Hemoglobin 8.8L, Hematocrit 31.5L, Mean Corpuscular Volume 76.5L, Mean Corpuscular Hemoglobin 21.3L, Mean Corpuscular Hemoglobin Concent 27.9L, Red Cell Distribution Width 18.0H, Platelet Count 253, Neutrophils (%) (Auto) 55.3, Lymphocytes (%) (Auto) 28.6, Monocytes (%) (Auto) 7.4H, Eosinophils (%) (Auto) 4.4H, Basophils (%) (Auto) 1.0 , Neutrophils # (Auto) 2.3, Lymphocytes # (Auto) 1.3L, Monocytes # (Auto) 0.3, Eosinophils # (Auto) 0.2, Basophils # (Auto) 0.0, Large Unclassified Cells % 3.4 , Large Unclassified Cells # 0.1, Platelet Estimate NORMAL, Hypochromasia 1+, Basophilic Stippling 1+, Anisocytosis 1+, Microcytosis 1+, Anion Gap 7L, Glomerular Filtration Rate 34.7L, Blood Urea Nitrogen 16, Creatinine 1.56H, Sodium Level 141, Potassium Level 3.6, Chloride Level 100, Carbon Dioxide Level 34H, Calcium Level 8.9, Phosphorus Level 3.5, Magnesium Level 2.7H 10/06/16 11:28: Bedside Glucose (Misc Panel) 396H CBC/BMP Laboratory Tests 10/06/16 07:56 Red Blood Count 4.12, Mean Corpuscular Volume 76.5 L, Mean Corpuscular Hemoglobin 21.3 L, Mean Corpuscular Hemoglobin Concent 27.9 L, Red Cell Distribution Width 18.0 H, Neutrophils (%) (Auto) 55.3, Lymphocytes (%) (Auto) 28.6, Monocytes (%) (Auto) 7.4 H, Eosinophils (%) (Auto) 4.4 H, Basophils (%) ( Auto) 1.0, Neutrophils # (Auto) 2.3, Lymphocytes # (Auto) 1.3 L, Monocytes # ( Auto) 0.3, Eosinophils # (Auto) 0.2, Basophils # (Auto) 0.0, Calcium Level 8.9 Microbiology Microbiology 10/05/16 Respiratory Virus Panel (PCR) ([facility]) - Final, Complete FAWAD SHEPPARD MD Oct 06, 2016 14:13
[2016-10-06] MEDS ORDERED: HUMULIN R U SC SCH (15:13)
[2016-10-06] MEDS: FUROSEMIDE 100 MG/10 ML VIAL (J1940) IV SCH (16:52)
[2016-10-06] MEDS: metOLazone 5 MG TAB PO SCH (16:55)
[2016-10-06 18:00] VITALS: BP 138/63
[2016-10-06 20:30] VITALS: BP 124/76
[2016-10-06] MEDS: BETAMETHASONE VAL 0.1% CR 15 GM TOP SCH (20:37)
[2016-10-07 02:00] VITALS: BP 122/57
[2016-10-07 05:59] LABS: ABG BASE EXCESS 12.6 (-2.0-2.0); ABG HCO3 38.1 MEQ/L (22.0-26.0); ABG PARTIAL PRESSURE CO2 54.4 mmHg (35.0-45.0); ABG PARTIAL PRESSURE O2 83.7 mmHg (75.0-100.0); ABG STANDARD HCO3 36.3 MEQ/L (22.0-26.0); ABG TOTAL CO2 39.8 MEQ/L (23.0-31.0); ABG pH (ARTERIAL) 7.463 UNITS (7.350-7.450)
[2016-10-07 06:00] VITALS: BP 147/67
[2016-10-07 06:55] LABS: CALCIUM LEVEL 9.7 MG/DL (8.8-10.2); CREATININE FOR GFR 1.67 MG/DL (0.55-1.02); GLOMERULAR FILTRATION RATE 32.1 (>39); MAGNESIUM LEVEL 2.3 MG/DL (1.8-2.4); PHOSPHORUS LEVEL 3.7 MG/DL (2.5-4.9); POTASSIUM SERUM 3.3 MEQ/L (3.5-5.1)
[2016-10-07 06:56] LABS: BASO % 0.8 % (0.0-1.0); EOS # 0.2 K/mm3 (0.0-0.50); LARGE UNSTAINED CELL # 0.1 K/mm3 (0.0-0.4); LARGE UNSTAINED CELL % 2.9 % (0.0-4.0); LYMPH # 1.8 K/mm3 (1.5-4.5); LYMPH % 33.4 % (24.0-44.0); MEAN CORPUSCULAR HEMOGLOBIN 21.4 pg (27.0-33.0); MEAN CORPUSCULAR HGB CONC 28.6 g/dl (32.0-36.5); MEAN CORPUSCULAR VOLUME 74.7 fl (80.0-96.0); MONO # 0.4 K/mm3 (0.0-0.8); MONO % 7.9 % (0.0-5.0); NEUTROPHILS # 2.6 K/mm3 (1.8-7.7); PLATELET COUNT, AUTOMATED 282 k/mm3 (150-450); RED CELL DISTRIBUTION WIDTH 18.1 % (11.5-14.5)
[2016-10-07] MEDS: IPRATROPIUM 0.5MG/ALBUTEROL 2.5MG INH SOL UD 3ML (DUONEB)(J7620) INH SCH ×2 (07:27→11:08)
[2016-10-07] MEDS: HumaLOG INSULIN (NovoLOG) PER UNIT SC SCH ×4 (08:49→12:46)
[2016-10-07] MEDS: COLCHICINE 0.6 MG TAB PO SCH (08:50)
[2016-10-07] MEDS: levETIRAcetam 250MG TABLET (KEPPRA) PO SCH ×2 (08:50→12:47)
[2016-10-07] MEDS: metOLazone 5 MG TAB PO SCH (08:50)
[2016-10-07] MEDS: FLUoxetine 20 MG CAP PO SCH (08:50)
[2016-10-07] MEDS: DOCUSATE SODIUM 100 MG CAP PO SCH (08:50)
[2016-10-07] MEDS: SENOKOT S TAB PO SCH (08:51)
[2016-10-07] MEDS: guaiFENesin ER 600 MG TAB PO SCH (08:51)
[2016-10-07] MEDS: ONDANSETRON 4 MG TAB (S0181) PO SCH ×2 (08:51→12:47)
[2016-10-07] MEDS: PREGABALIN 100 MG CAP (LYRICA) PO SCH (08:51)
[2016-10-07] MEDS: METOCLOPRAMIDE 10 MG TAB PO SCH (08:51)
[2016-10-07] MEDS: OMEPRAZOLE 20 MG CAP PO SCH (08:51)
[2016-10-07 08:52] VITALS: BP 165/70
[2016-10-07] MEDS: amLODIPine 5 MG TAB PO SCH (08:52)
[2016-10-07] MEDS: HEPARIN SOD (PORCINE) 5000 UNITS/ML VIAL SC SCH (08:52)
[2016-10-07] MEDS: AZITHROMYCIN 250 MG TAB PO SCH (08:52)
[2016-10-07] MEDS: SPIRONOLACTONE 25 MG TAB PO SCH (08:52)
[2016-10-07] MEDS: ASPIRIN 81 MG ENTERIC TAB PO SCH (08:52)
[2016-10-07] MEDS: BISOPROLOL FUMARATE 5 MG TAB PO SCH (08:52)
[2016-10-07] MEDS: SUCRALFATE 1 GM TAB PO SCH (08:52)
[2016-10-07] MEDS: FUROSEMIDE 100 MG/10 ML VIAL (J1940) IV SCH (08:53)
[2016-10-07] MEDS: SODIUM CHLORIDE 0.9% INJ 10 ML SYR IV SCH (08:54)
[2016-10-07] MEDS: LACTIC ACID 12% LOTION 225 GM BTL TOP SCH (08:55)
[2016-10-07] MEDS: LACTULOSE 20 GM/30 ML SYRUP UD PO SCH (08:55)
[2016-10-07] MEDS ORDERED: POTASSIUM CHLORIDE 10 MEQ SR TABLET PO SCH (09:00)
[2016-10-07 10:00] VITALS: BP 143/63
[2016-10-07] MEDS ORDERED: METO5TA PO (11:13)
--- NOTE | 2016-10-09 22:48 | DSES ---
DATE OF ADMISSION: 10/05/2016 DATE OF DISCHARGE: 10/07/2016 PRIMARY CARE PROVIDER: Dr. Villalobos. DISCHARGE DIAGNOSES: 1. Diastolic congestive heart failure exacerbation. 2. Moderate persistent asthma without any exacerbation. 3. Diabetes. 4. Complex obstructive sleep apnea syndrome on bilevel pressure therapy since 2006. 5. Gout. 6. Seizure disorder. 7. Hypertension. 8. Gastroesophageal reflux disease. 9. Chronic hypoxic respiratory failure on two liters of oxygen. 10. Chronic iron-deficiency anemia. 11. Morbid obesity. 12. Paralyzed right hemidiaphragm. 13. History of adenoiditis. 14. History of deep venous thrombosis (DVT), has an inferior vena cava (IVC) filter in place. 15. Migraines. 16. Seasonal allergies. 17. Irritable bowel syndrome. 18. Depression. 19. Restrictive lung disease secondary to obesity and nonfunctioning right hemidiaphragm, status post ligation. 20. Chronic kidney disease stage III. Baseline creatinine around 1.4 to 1.5. DISCHARGE MEDICATIONS: - metolazone 5 mg one tablet by mouth three times per week - acetaminophen 650 mg by mouth every eight hours as needed for pain - albuterol ipratropium nebulizer solution one solution four times a day as needed for shortness of breath - Amitiza 24 mcg by mouth at bedtime - amlodipine 5 mg by mouth daily - aspirin 81 mg by mouth daily - betamethasone cream topically - bisoprolol 2.5 mg by mouth daily - colchicine 160 mg by mouth daily - cranberry extract - Colace 100 mg by mouth twice a day - vitamin D 50,000 units once a month - Fioricet one capsule by mouth three times a day as needed for headache - fluoxetine 20 mg by mouth daily - Incruse Ellipta 62.5 mcg inhalation daily - Humulin RU 500, 150 units subcutaneous daily - insulin aspart 16 units before meals - lactulose 30 mL by mouth twice a day - Keppra 500 mg by mouth four times a day - Reglan 10 mg by mouth three times a day - milk of magnesia 30 mL by mouth daily as needed for constipation - Nystatin powder one dose topically twice a day as needed for rash - omeprazole 20 mg by mouth twice a day - Zofran 4 mg by mouth four times a day - Lyrica 100 mg by mouth three times a day - scopolamine 1.5 mg topically every 72 hours as needed for nausea - Senna two tablets by mouth twice a day - spironolactone 25 mg by mouth twice a day - Sucralfate 1 gram by mouth twice a day - torsemide 100 mg in the morning and 50 mg in the evening - Vagisil 1% one dose topically twice a day as needed for itching HOSPITAL COURSE: This is a 71-year-old female with multiple medical problems and frequent hospitalizations who was last discharged on 08/31/2016, came back to the hospital with complaints of increased shortness of breath. The patient was diagnosed with diastolic congestive heart failure exacerbation and was admitted for that. The patient was aggressively diuresed in the hospital, and the patient's fluid restriction was increased from 1800 mL to 1500 mL. After diuresis of about 6.5 liters of fluid, the patient's symptoms improved significantly and the patient was at her baseline oxygen requirement. On the day of discharge, the patient was comfortable, vitals were stable, and functionality was at baseline. PHYSICAL EXAMINATION: VITAL SIGNS: Temperature 96.9, pulse 82, respiratory rate 21, blood pressure 143/64, pulse oximetry 95% with two liters. GENERAL: Patient awake, alert, and oriented times three. Lying down in bed in no acute distress. HEENT: Normocephalic, atraumatic. Moist mucous membranes. Anicteric eyes. CHEST: Overall bilateral poor air entry. No wheezing or crackles. CARDIOVASCULAR: S1, S2. Regular. No rub, murmur or gallop. ABDOMEN: Obese, soft, nontender. Bowel sounds present. EXTREMITIES: No edema. LABORATORY DATA: WBC 5, hemoglobin 9.5, platelets 282. Sodium 137, potassium 3.3 replaced. Chloride 92, bicarbonate 34, BUN 16, creatinine 1.67, glucose 356. Calcium 9.7, phosphorus 3.7, magnesium 2.3. Blood gas was pH of 7.46, pCO2 54, pO2 83. Respiratory viral panel was negative. IMAGING: Chest x-ray showed stable cardiomegaly and diffuse chronic interstitial changes. DISPOSITION: The patient is discharged home in stable condition. DISCHARGE INSTRUCTIONS: Patient to followup with primary care provider in one week. Carbohydrate consistent diet, 1.5 liter fluid restricted. Activity as tolerated.
[2017-01-29] MEDS ORDERED: CIPR-249 PO (18:51)
[2017-01-29] MEDS ORDERED: PRED10TA2 PO (18:53)
== END 2016-10-07 13:28 | disposition home health service (06) | DRG 291 ==
LOC: M ED 19:19 → M ED INP 10-05 00:35 → M MSPAV 10-05 01:15
PROVIDERS: ATTEND Internal Medicine Nephrology
DX: I13.0 Hypertensive heart and chronic kidney disease with heart failure and stage 1 through stage 4 chronic kidney disease, or unspecified chronic kidney disease (principal); I50.33 Acute on chronic diastolic (congestive) heart failure; J44.1 Chronic obstructive pulmonary disease with (acute) exacerbation; J96.11 Chronic respiratory failure with hypoxia; E11.9 Type 2 diabetes mellitus without complications; M10.9 Gout, unspecified; J30.2 Other seasonal allergic rhinitis; K21.9 Gastro-esophageal reflux disease without esophagitis; D50.9 Iron deficiency anemia, unspecified; F32.9 Major depressive disorder, single episode, unspecified; J45.40 Moderate persistent asthma, uncomplicated; G40.909 Epilepsy, unspecified, not intractable, without status epilepticus; G43.909 Migraine, unspecified, not intractable, without status migrainosus; E66.01 Morbid (severe) obesity due to excess calories; E78.5 Hyperlipidemia, unspecified; J98.6 Disorders of diaphragm; N18.3 Chronic kidney disease, stage 3 (moderate); G47.33 Obstructive sleep apnea (adult) (pediatric); K58.9 Irritable bowel syndrome, unspecified; Z99.89 Dependence on other enabling machines and devices; Z86.718 Personal history of other venous thrombosis and embolism; Z95.9 Presence of cardiac and vascular implant and graft, unspecified; Z79.82 Long term (current) use of aspirin; Z79.4 Long term (current) use of insulin; Z79.899 Other long term (current) drug therapy; Z99.81 Dependence on supplemental oxygen; Z88.1 Allergy status to other antibiotic agents; Z88.0 Allergy status to penicillin; Z88.2 Allergy status to sulfonamides; Z91.040 Latex allergy status; Z88.8 Allergy status to other drugs, medicaments and biological substances; Z90.710 Acquired absence of both cervix and uterus

== ENCOUNTER 2016-10-15 09:45 | Inpatient (IN) | payer MEDICARE, MEDICAID ==
[~2016-10-15] VITALS: Ht 170.2 cm; Wt 116.6 kg
[~2016-10-15 09:45] MED LIST changes: +BETA115CR TOP; +HUMU500S2 SC; +INCR1INH INH; +METO5TA PO; +NYST1POW9 TOP; +ONDA4TAB5 PO; +ZOFR4TAB3 PO
[2016-10-15] MEDS ORDERED: NS 500 ML IV ONE (10:30)
[2016-10-15 10:31] LABS: ADD MANUAL DIFFER YES; MEAN CORPUSCULAR HEMOGLOBIN 21.2 pg (27.0-33.0); MEAN CORPUSCULAR HGB CONC 29.5 g/dl (32.0-36.5); MEAN CORPUSCULAR VOLUME 71.9 fl (80.0-96.0); PLATELET COUNT, AUTOMATED 337 k/mm3 (150-450); RED CELL DISTRIBUTION WIDTH 17.7 % (11.5-14.5); WHITE BLOOD COUNT 9.6 K/mm3 (4.0-10.0)
[2016-10-15 10:50] LABS: BASOPHILS 1 % (0-4); EOSINOPHILS 1 % (0-5)
[2016-10-15 10:51] LABS: HYPOCHROMASIA 2+
[2016-10-15 10:52] LABS: ALBUMIN 3.7 GM/DL (3.2-5.2); ALBUMIN/GLOBULIN RATIO 0.79 (1.00-1.93); BILIRUBIN,DIRECT 0.2 MG/DL (0.0-0.2); BILIRUBIN,TOTAL 0.4 MG/DL (0.2-1.0); CALCIUM LEVEL 10.1 MG/DL (8.8-10.2); CREATININE FOR GFR 3.23 MG/DL (0.55-1.02); POTASSIUM SERUM 2.7 MEQ/L (3.5-5.1); TOTAL PROTEIN 8.4 GM/DL (6.4-8.2)
[2016-10-15] MEDS ORDERED: HumuLIN R (REGULAR) INSULIN (NovoLIN R) **100U/ML** PER UNIT SC STA ×2 (10:59→11:02)
[2016-10-15] MEDS ORDERED: KCL 20MEQ IN 100ML SWI (KRUN) 20 MEQ in APPROPRIATE DILUENT 1 EA IV ONE ×2 (11:00)
[2016-10-15] MEDS ORDERED: KCL 10MEQ IN 100ML SWI (KRUN) 100 ML IV ONE ×2 (11:00→12:00)
[2016-10-15] MEDS ORDERED: ONDANSETRON 4MG/2ML VIAL (J2405) IV ONE (11:15)
[2016-10-15] MEDS ORDERED: POTASSIUM CHLORIDE 10 MEQ SR TABLET PO ONE (11:15)
--- NOTE | 2016-10-15 11:48 | REP ---
CHEST X-RAY: Single view. HISTORY: Short of breath. Comparison chest x-ray October 04, 2016. FINDINGS: A right internal jugular Bydwpu-K-Gvdz catheter is seen with its tip in the expected location of the superior vena cava. EKG electrodes are seen. There is surgical clips in the left perihilar region and in the left upper quadrant of the abdomen. There is a zone of linear density in the right mid lung zone. This may be fissural thickening in the minor fissure or plate-like atelectasis. It is a new finding. No infiltrate is seen. Heart is slightly prominent but unchanged. IMPRESSION: Linear plate-like atelectasis versus fissural thickening right mid lung zone. Otherwise no acute disease. Signed by Hua Wang MD 10/15/2016 12:31 P
[2016-10-15] MEDS ORDERED: ACETAMINOPHEN TAB 650MG DOSE (2X325MG) PO ONE (12:15)
[2016-10-15] MEDS ORDERED: KETO0.05 TOP (13:21)
[2016-10-15] MEDS ORDERED: METO5TA PO (13:21)
[2016-10-15] MEDS ORDERED: NS 500 ML IV SCH (15:00)
[2016-10-15] MEDS ORDERED: NYSTATIN 100,000 UNITS/GM TOPICAL PWD 15 GM TOP PRN (15:00)
[2016-10-15] MEDS ORDERED: MOM 30ML SUSPENSION UDC PO PRN (15:00)
[2016-10-15] MEDS: ONDANSETRON 4 MG TAB (S0181) PO SCH ×3 (15:32→20:49)
[2016-10-15] MEDS: amLODIPine 5 MG TAB PO SCH (15:32)
[2016-10-15] MEDS: METOCLOPRAMIDE 10 MG TAB PO SCH ×2 (15:34→20:49)
[2016-10-15] MEDS: ASPIRIN 81 MG ENTERIC TAB PO SCH (15:34)
[2016-10-15] MEDS: FLUoxetine 20 MG CAP PO SCH (15:34)
[2016-10-15] MEDS: PREGABALIN 100 MG CAP (LYRICA) PO SCH ×2 (15:34→20:49)
[2016-10-15] MEDS: levETIRAcetam 250MG TABLET (KEPPRA) PO SCH ×3 (15:34→20:49)
[2016-10-15] MEDS: BISOPROLOL FUMARATE 5 MG TAB PO SCH (15:38)
[2016-10-15] MEDS: HUMULIN R U-500 KWIKPEN 500UNITS/ML 3ML SYRINGE (J1815 PER 5UNITS) SC SCH ×2 (16:49→20:45)
--- NOTE | 2016-10-15 17:49 | HPE ---
DATE OF ADMISSION: 10/15/2016 PRIMARY CARE PHYSICIAN: Dr. Villalobos CHIEF COMPLAINT: Weakness. HISTORY OF PRESENT ILLNESS: The patient is a 71-year-old female, who is well known to the hospitalist service. She has presented to the emergency room (ER) at least twice a month for the past seven months, has an average of 14 presentations at [facility] (ER) thus far this year. She has been recently discharged for decompensated congestive heart failure. At that time, her diuretic doses were adjusted and increased. She had presented to her primary care provider for a followup appointment yesterday. She was found to be very weak. Routine labs were checked and she was found to have acute kidney injury and also a low potassium. The patient was advised to present to the emergency room. SUBJECTIVE: At this time, the patient tells me that she is feeling very weak. She is feeling very tired. She otherwise complains of shortness of breath, which she has all the time and there is no change from her baseline. PAST MEDICAL HISTORY: 1. Insulin-dependent diabetes mellitus. 2. Asthma. 3. Obstructive sleep apnea. 4. Obesity 5. Hyperventilation syndrome. 6. Chronic hypoxic respiratory failure. 7. Paralyzed hemidiaphragm. 8. Morbid obesity. 9. Gout. 10. Migraines. 11. Seizure disorder. 12. Hypertension. 13. Gastroesophageal reflux disease. 14. Depression. 15. Chronic kidney disease. Baseline approximately 1.5. 16. Deep vein thrombosis (DVT), status post inferior vena cava (IVC) filter. ALLERGIES: CEPHALOSPORINS, CHLORPROMAZINE, RANITIDINE, PENICILLIN AND PENTAZOCINE, SULFA, IODINE, METHADONE, FLUTICASONE, LATEX, SALMETEROL. PAST SURGICAL HISTORY: Colonoscopy. Inferior vena cava filter placement in 2014. Right hip surgery. Right knee surgery. Hysterectomy. "Lung surgery", "back surgery", left ankle surgery, tonsillectomy. SOCIAL HISTORY: The patient does not have a history of tobacco use. She denies any illicit drug use or alcohol. She lives with her ex-. No pets. She has not had any recent travel. She does not walk at her baseline, uses a chair. She is a full code. FAMILY HISTORY: Noncontributory. REVIEW OF SYSTEMS: Negative over than history of present illness. HOME MEDICATIONS: - colchicine 0.6 mg daily - vitamin D 35775 units once monthly - metolazone 5 mg three times a week - torsemide 100 mg in the p.m., 100 mg in the a.m. - Amitiza 24 mcg at bedtime (q.h.s.) - ammonium lactate topical cream twice a day - cranberry extract 5 mg three times a day - Fioricet [id number] one capsule three times a day as needed headaches - Incruse Ellipta 82.5 mcg inhaled daily - Vagisil 1% topically twice a day as needed for itching - Tylenol 650 mg every 8 hours as needed pain. - DuoNeb four times a day as needed for shortness of breath - Norvasc 5 mg daily - aspirin 81 mg daily - betamethasone valerate topically at bedtime (q.h.s.) - bisoprolol 2.5 mg daily - docusate 100 mg twice a day - fluoxetine 20 mg daily - NovoLog 15 units before meals (ac) - u-500 50 units three times a day - ketoconazole topically twice a day - lactulose 30 mL by mouth twice a day - Keppra 500 mg four times a day - Reglan 10 mg three times a day - Milk of Magnesium 30 mL daily as needed for constipation - nystatin [id number] units topically twice a day as needed for rash - omeprazole 20 mg twice a day - Zofran 4 mg four times a day - Lyrica 100 mg three times a day - scopolamine patch 1.5 mg topically every 72 hours as needed for nausea - Senokot 8.6 mg two tabs twice a day - aldactone 25 mg twice a day - Carafate 1 gram by mouth twice a day OBJECTIVE: VITAL SIGNS: Temperature 98.8, pulse 76, respiratory rate 24, blood pressure (BP) 131/62, oxygen saturation 98% on 3 liters. GENERAL: She is morbidly obese, female lying in bed at a 30 degree angle. She appears lethargic at times, but easily arousable. She is awake, alert and oriented times three. HEENT: She has a very dry mucous membrane. Cranial nerves II/XII are grossly intact. She has no elevation of central venous pressure (CVP). CARDIOVASCULAR EXAM: S1, S2 regular. Breath sounds are distant secondary to body habitus. RESPIRATORY EXAM: Clear. I do not appreciate any wheeze. There is a prolonged expiratory phase. No rales. Breath sounds are distant secondary to body habitus. ABDOMINAL EXAM: Grossly obese. EXTREMITIES: No clubbing, cyanosis or appreciable edema. LABORATORY STUDIES: White blood count (WBC) 9.6, hemoglobin 10.5, hematocrit 35.7, platelet count 337. Chemistry panel: Sodium 127, potassium 2.7, chloride 81, bicarbonate 34, BUN 60, creatine 3.2, fasting glucose 186. Anion gap 12. Slightly elevated AST 53. No microbiology. IMAGING: The patient did have a chest x-ray that revealed linear plate-like atelectasis versus fissural thickening of the right midlung zone. Otherwise, no acute disease. ASSESSMENT AND PLAN: This is a 71-year-old female with acute kidney injury and hypokalemia. PROBLEM: 1. Acute kidney injury and hypokalemia in the setting of hyponatremia, hypochloridemia, being clinically dry. I suspect that she may being over diuresed at this point. As such, I will hold any further diuresis and I will replace her potassium and check magnesium and phosphorous levels. I will gently hydrate her with 500 mL over several hours. Repeat a basic metabolic panel (BMP). She had received 15 mEq of potassium in the emergency room. I will check basic metabolic panel (BMP) at this time. The patient admitted to the progressive care unit to Dr. Story's service, who will continue following the patient at 7 a.m. Given the patient's history of frequent hospitalizations and admissions and presentation to the emergency room (ER). I do have concern about her ability to care for herself at home. I have discussed previously in the past, with me she does decline any snf placement. 2. Chronic hypoxic respiratory failure, multifactorial in nature related to paralyzed hemidiaphragm, asthma, obstructive sleep apnea, obesity hyperventilation syndrome. The patient actually does not appear to require oxygen at rest, while she is awake, however she insists on wearing it. I will titrate for a saturation 88 to 92% 3. Decompensated congestive heart failure as outline above. I will hold off on the patient's diuretic. I will continue with aldactone and beta red and her antihypertensives and amlodipine. 4. Hypertension, I will continue amlodipine, but hold diuretic. 5. Seizure disorder. Continue with Keppra and Lyrica. 6. Chronic nauseas. Continue with her Carafate, scopolamine, Zofran and Reglan. 7. Anxiety/depression. Continue fluoxetine. 8. Chronic constipation. Continue with home bowel regimen. 9. Continue with her home inhalers. 10. Gout. Will hold colchicine in the setting of acute kidney injury. 11. Gastroesophageal reflux disease. Continue with omeprazole. 12. Migraine. Provide with Fioricet as needed. 13. Morbid obesity complicating care. 14. Deep vein thrombosis (DVT). She is status post inferior vena cava filter (IVC) placement. While in the hospital, she is to be on heparin subcutaneous twice a day.
[2016-10-15 18:00] VITALS: BP 114/58
[2016-10-15] MEDS: HumaLOG INSULIN (NovoLOG) PER UNIT SC SCH (18:26)
[2016-10-15 19:15] LABS: CALCIUM LEVEL 9.8 MG/DL (8.8-10.2); CREATININE FOR GFR 2.96 MG/DL (0.55-1.02); GLOMERULAR FILTRATION RATE 16.6 (>39); MAGNESIUM LEVEL 3.2 MG/DL (1.8-2.4); PHOSPHORUS LEVEL 3.3 MG/DL (2.5-4.9); POTASSIUM SERUM 3.5 MEQ/L (3.5-5.1)
[2016-10-15] MEDS ORDERED: DEXTROSE 50% 50 ML SYRINGE IV PRN (19:30)
[2016-10-15] MEDS ORDERED: GLUCOSE 4 GM CHEW TABLET PO PRN (19:30)
[2016-10-15] MEDS ORDERED: GLUCAGON FOR INJ 1 MG VIAL (J1610) SC PRN (19:30)
[2016-10-15 20:00] VITALS: BP 132/87
[2016-10-15] MEDS ORDERED: HumaLOG INSULIN (NovoLOG) PER UNIT SC ONE (20:00)
[2016-10-15] MEDS: SENOKOT S TAB PO SCH (20:48)
[2016-10-15] MEDS: SUCRALFATE 1 GM TAB PO SCH (20:49)
[2016-10-15] MEDS: DOCUSATE SODIUM 100 MG CAP PO SCH (20:49)
[2016-10-15] MEDS: OMEPRAZOLE 20 MG CAP PO SCH (20:49)
[2016-10-15] MEDS: LACTULOSE 20 GM/30 ML SYRUP UD PO SCH (20:50)
[2016-10-15] MEDS: BETAMETHASONE VAL 0.1% CR 15 GM TOP SCH (20:50)
[2016-10-15] MEDS: HEPARIN SOD (PORCINE) 5000 UNITS/ML VIAL SC SCH (20:50)
[2016-10-15] MEDS: KETOCONAZOLE 2% CREAM TOP SCH (20:51)
[2016-10-15] MEDS ORDERED: HumaLOG INSULIN (NovoLOG) PER UNIT SC SCH (21:00)
[2016-10-15] MEDS ORDERED: SPIRONOLACTONE 25 MG TAB PO SCH (21:00)
--- NOTE | 2016-10-15 21:35 | ECGEPIP ---
Stationary ECG Study [facility] - ED Test Date: 2016-10-15 Pat Name: SHIVANI PAYNE Department: Room: - Gender: F Biometry Teacher: SHANELL : 1945 Requested By: ANDRE Arguello Order Number: [id number] Reading MD: Akiko Meadows Measurements Intervals Point Baker Rate: 80 P: 85 SC: 243 QRS: 11 QRSD: 102 T: 32 QT: 308 QTc: 355 Interpretive Statements SINUS RHYTHM WITH FIRST DEGREE AV BLOCK LOW QRS VOLTAGE IN PRECORDIAL LEADS NONSPECIFIC T-WAVE ABNORMALITY BASELINE ARTIFACT LIMITS INTERPRETATION PRWP SIMILAR 10/04/16 Electronically Signed On 10-15-2016 21:35:25 EDT by Akiko Meadows
[2016-10-16] VITALS: BP 132/61
[2016-10-16] MEDS: ACETAMINOPHEN 650MG ER TAB (TYLENOL ARTHRITIS) PO PRN (04:29)
[2016-10-16 05:25] VITALS: BP 140/64
[2016-10-16 06:35] LABS: MEAN CORPUSCULAR HEMOGLOBIN 21.6 pg (27.0-33.0); MEAN CORPUSCULAR HGB CONC 29.9 g/dl (32.0-36.5); MEAN CORPUSCULAR VOLUME 72.4 fl (80.0-96.0); RED CELL DISTRIBUTION WIDTH 17.8 % (11.5-14.5); WHITE BLOOD COUNT 6.6 K/mm3 (4.0-10.0)
[2016-10-16 06:38] LABS: BLOOD UREA NITROGEN 59 MG/DL (7-18); CALCIUM LEVEL 9.9 MG/DL (8.8-10.2); CREATININE FOR GFR 2.57 MG/DL (0.55-1.02); GLUCOSE, FASTING 308 MG/DL (83-110)
[2016-10-16 06:45] LABS: ANION GAP 12 MEQ/L (8-16); CARBON DIOXIDE LEVEL 31 MEQ/L (21-32); CHLORIDE LEVEL 86 MEQ/L (98-107); SODIUM LEVEL 129 MEQ/L (136-145)
[2016-10-16] MEDS ORDERED: HumaLOG INSULIN (NovoLOG) PER UNIT SC SCH (07:30)
[2016-10-16 08:00] VITALS: BP 129/58
[2016-10-16] MEDS: LACTULOSE 20 GM/30 ML SYRUP UD PO SCH ×2 (08:34→21:25)
[2016-10-16] MEDS: HumaLOG INSULIN (NovoLOG) PER UNIT SC SCH ×4 (08:34→17:16)
[2016-10-16] MEDS: DOCUSATE SODIUM 100 MG CAP PO SCH ×2 (08:34→21:27)
[2016-10-16] MEDS: levETIRAcetam 250MG TABLET (KEPPRA) PO SCH ×4 (08:35→21:27)
[2016-10-16] MEDS: SENOKOT S TAB PO SCH ×2 (08:35→21:26)
[2016-10-16] MEDS: SUCRALFATE 1 GM TAB PO SCH ×2 (08:35→21:27)
[2016-10-16] MEDS: FLUoxetine 20 MG CAP PO SCH (08:37)
[2016-10-16] MEDS: BISOPROLOL FUMARATE 5 MG TAB PO SCH (08:37)
[2016-10-16] MEDS: PREGABALIN 100 MG CAP (LYRICA) PO SCH ×3 (08:37→21:27)
[2016-10-16] MEDS: ASPIRIN 81 MG ENTERIC TAB PO SCH (08:38)
[2016-10-16] MEDS: ONDANSETRON 4 MG TAB (S0181) PO SCH ×4 (08:38→21:27)
[2016-10-16] MEDS: amLODIPine 5 MG TAB PO SCH (08:38)
[2016-10-16] MEDS: KETOCONAZOLE 2% CREAM TOP SCH ×2 (08:38→21:28)
[2016-10-16] MEDS: METOCLOPRAMIDE 10 MG TAB PO SCH ×3 (08:38→21:27)
[2016-10-16] MEDS: OMEPRAZOLE 20 MG CAP PO SCH ×2 (08:38→21:27)
[2016-10-16] MEDS: SODIUM CHLORIDE 0.9% INJ 10 ML SYR IV SCH (08:39)
[2016-10-16] MEDS: HEPARIN SOD (PORCINE) 5000 UNITS/ML VIAL SC SCH ×2 (08:40→21:25)
--- NOTE | 2016-10-16 08:46 | IPNPDOC ---
Subjective Date Seen The patient was seen on 10/16/16. Subjective Chief Complaint/HPI The patient is a 71-year-old female admitted with a reason for visit of Branden ( Acute Kidney Injury). Events since last encounter pateint does not have any complaints. Said she was feeling fine just her sugars were running high at home . she had gone to see her primary care and blood work was done then he called the patient and told her to come to the ED for abnormal labs. no fever or chills, no diarrhea or vomiting , no abdominal pain , nausea, no chest pain , has chronic cough. Objective Physical Examination General Exam: Positive: Alert, Cooperative, No Acute Distress Eye Exam: Positive: PERRLA, Conjunctiva & lids normal, EOMI, Negative: Sclera icteric ENT Exam: Positive: Atraumatic, Mucous membr. moist/pink, Pharynx Normal Neck Exam: Positive: Supple, Negative: JVD, thyromegaly Chest Exam: Positive: Clear to auscultation, Diminished Heart Exam: Positive: Rate Normal, Regular Rhythm, Normal S1, Normal S2, Negative: Murmurs, Rubs Telemetry: Positive: No significant arrhythmia Abdomen Exam: Positive: Normal bowel sounds, Soft, Negative: Tenderness, Hepatospenomegaly Extremity Exam: Positive: Normal pulses, Negative: Clubbing, Cyanosis, Edema Assessment /Plan Problems (1) Acute kidney injury superimposed on CKD Status: Acute Problem Text: due to prerenal causes, diuretics and osmotic diuresis from uncontrolled sugars. improving will continue to hold diuretics. (2) Hypokalemia Status: Acute Problem Text: being replaced. (3) Chronic respiratory failure with hypoxia Status: Chronic (4) Restrictive airway disease Status: Chronic (5) Asthma Status: Chronic Problem Text: has moderate persistent asthma (6) CHF (congestive heart failure) Status: Chronic Response to Treatment: Stable Problem Text: looks to be dehydrated so diuretics held (7) Hepatitis C Status: Chronic (8) Diabetes Status: Chronic Problem Text: sugars always uncontrolled will continue with U500 150 units once a day then lispro 16 units before meals. 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 Plan/VTE VTE Prophylaxis Ordered?: Yes VS, I&O, 24H, Fishbone Vital Signs/I&O Vital Signs Date Time Temp Pulse Resp B/P (MAP) Pulse Ox O2 Delivery O2 Flow Rate FiO2 10/16/16 07:41 Nasal Cannula 1.0 10/16/16 05:25 140/64 (89) 10/16/16 04:00 98.6 68 18 95 I&O- Last 24 Hours up to 6 AM 10/16/16 06:00 Intake Total 2340 ml Output Total 550 ml Balance 1790 ml Laboratory Data 24H LABS Laboratory Tests 2 10/15/16 10:14: Neutrophils 73, Lymphocytes (Manual) 25, Eosinophils (Manual) 1, Basophils ( Manual) 1, Platelet Estimate NORMAL, Hypochromasia 2+, Macrocytosis 2+, Anion Gap 12, Glomerular Filtration Rate 15.0L, Calcium Level 10.1, Aspartate Amino Transf (AST/SGOT) 53H, Alanine Aminotransferase (ALT/SGPT) 45, Alkaline Phosphatase 108, Total Bilirubin 0.4, Direct Bilirubin 0.2, B-Type Natriuretic Peptide 41.9, Total Protein 8.4H, Albumin 3.7, Albumin/Globulin Ratio 0.79L 10/15/16 15:21: Bedside Glucose (Misc Panel) 488H 10/15/16 18:40: Anion Gap 12, Glomerular Filtration Rate 16.6L, Calcium Level 9.8, Blood Urea Nitrogen 63H, Creatinine 2.96H, Sodium Level 126L, Potassium Level 3.5#, Chloride Level 82L, Carbon Dioxide Level 32, Phosphorus Level 3.3, Magnesium Level 3.2H 10/15/16 20:44: Bedside Glucose (Misc Panel) 532*H 10/15/16 22:06: Bedside Glucose (Misc Panel) 455H 10/16/16 06:06: Anion Gap 12, Blood Urea Nitrogen 59H, Creatinine 2.57H, Sodium Level 129L, Potassium Level 3.0L, Chloride Level 86L, Carbon Dioxide Level 31, Calcium Level 9.9 CBC/BMP Laboratory Tests 10/15/16 10:14 Red Blood Count 4.96, Mean Corpuscular Volume 71.9 L, Mean Corpuscular Hemoglobin 21.2 L, Mean Corpuscular Hemoglobin Concent 29.5 L, Red Cell Distribution Width 17.7 H 10/15/16 18:40 Calcium Level 9.8 10/16/16 06:06 Red Blood Count 4.26, Mean Corpuscular Volume 72.4 L, Mean Corpuscular Hemoglobin 21.6 L, Mean Corpuscular Hemoglobin Concent 29.9 L, Red Cell Distribution Width 17.8 H, Calcium Level 9.9 FAWAD SHEPPARD MD Oct 16, 2016 08:46
[2016-10-16] MEDS ORDERED: HUMULIN R U-500 KWIKPEN 500UNITS/ML 3ML SYRINGE (J1815 PER 5UNITS) SC SCH (09:00)
[2016-10-16] MEDS ORDERED: SCOPOLAMINE 1.5 MG TRANSDERMAL TOP PRN (09:00)
[2016-10-16] MEDS ORDERED: HUMULIN R U-500 KWIKPEN 500UNITS/ML 3ML SYRINGE (J1815 PER 5UNITS) SC ONE (09:45)
[2016-10-16] MEDS: HUMULIN R U-500 KWIKPEN 500UNITS/ML 3ML SYRINGE (J1815 PER 5UNITS) SC SCH (10:09)
[2016-10-16] MEDS: POTASSIUM CHLORIDE 10 MEQ SR TABLET PO SCH ×2 (10:10→21:26)
[2016-10-16 14:30] VITALS: BP 119/58
[2016-10-16] MEDS: IPRATROPIUM 0.5MG/ALBUTEROL 2.5MG INH SOL UD 3ML (DUONEB)(J7620) INH PRN (20:52)
[2016-10-16] MEDS: BETAMETHASONE VAL 0.1% CR 15 GM TOP SCH (21:28)
[2016-10-16 22:00] VITALS: BP 126/59
[2016-10-17] MEDS: IPRATROPIUM 0.5MG/ALBUTEROL 2.5MG INH SOL UD 3ML (DUONEB)(J7620) NEB SCH ×6 (00:56→19:17)
[2016-10-17 06:00] VITALS: BP 137/60
[2016-10-17 06:08] LABS: MEAN CORPUSCULAR HEMOGLOBIN 21.8 pg (27.0-33.0); MEAN CORPUSCULAR HGB CONC 29.2 g/dl (32.0-36.5); MEAN CORPUSCULAR VOLUME 74.7 fl (80.0-96.0); RED CELL DISTRIBUTION WIDTH 17.7 % (11.5-14.5); WHITE BLOOD COUNT 6.1 K/mm3 (4.0-10.0)
[2016-10-17 06:17] LABS: CALCIUM LEVEL 9.8 MG/DL (8.8-10.2); CREATININE FOR GFR 2.38 MG/DL (0.55-1.02); GLOMERULAR FILTRATION RATE 21.3 (>39); POTASSIUM SERUM 3.5 MEQ/L (3.5-5.1)
[2016-10-17] MEDS: HumaLOG INSULIN (NovoLOG) PER UNIT SC SCH ×3 (08:13→17:32)
[2016-10-17] MEDS: POTASSIUM CHLORIDE 10 MEQ SR TABLET PO SCH ×2 (08:14→20:46)
[2016-10-17] MEDS: HEPARIN SOD (PORCINE) 5000 UNITS/ML VIAL SC SCH ×2 (08:14→20:46)
[2016-10-17] MEDS: levETIRAcetam 250MG TABLET (KEPPRA) PO SCH ×4 (08:14→20:47)
[2016-10-17] MEDS: FLUoxetine 20 MG CAP PO SCH (08:15)
[2016-10-17] MEDS: SENOKOT S TAB PO SCH ×2 (08:15→20:46)
[2016-10-17] MEDS: PREGABALIN 100 MG CAP (LYRICA) PO SCH ×3 (08:15→20:47)
[2016-10-17] MEDS: METOCLOPRAMIDE 10 MG TAB PO SCH ×3 (08:15→20:47)
[2016-10-17] MEDS: ASPIRIN 81 MG ENTERIC TAB PO SCH (08:15)
[2016-10-17] MEDS: SUCRALFATE 1 GM TAB PO SCH ×2 (08:15→20:46)
[2016-10-17] MEDS: DOCUSATE SODIUM 100 MG CAP PO SCH ×2 (08:15→20:46)
[2016-10-17] MEDS: SODIUM CHLORIDE 0.9% INJ 10 ML SYR IV SCH (08:16)
[2016-10-17] MEDS: OMEPRAZOLE 20 MG CAP PO SCH ×2 (08:16→20:46)
[2016-10-17] MEDS: ONDANSETRON 4 MG TAB (S0181) PO SCH ×4 (08:16→20:47)
[2016-10-17] MEDS: LACTULOSE 20 GM/30 ML SYRUP UD PO SCH ×2 (08:16→20:46)
[2016-10-17] MEDS: KETOCONAZOLE 2% CREAM TOP SCH ×2 (08:17→20:48)
[2016-10-17] MEDS: BISOPROLOL FUMARATE 5 MG TAB PO SCH (08:22)
[2016-10-17] MEDS: amLODIPine 5 MG TAB PO SCH (08:23)
[2016-10-17] MEDS: ACETAMINOPHEN 650MG ER TAB (TYLENOL ARTHRITIS) PO PRN ×2 (08:41→20:48)
[2016-10-17] MEDS ORDERED: HUMULIN R U-500 KWIKPEN 500UNITS/ML 3ML SYRINGE (J1815 PER 5UNITS) SC SCH (09:00)
--- NOTE | 2016-10-17 09:50 | IPNPDOC ---
Subjective Date Seen The patient was seen on 10/17/16. Subjective Chief Complaint/HPI The patient is a 71-year-old female admitted with a reason for visit of Branden ( Acute Kidney Injury). Events since last encounter feeling same as before , no overnight events, renal functions improving, sugars remain uncontrolledno fever or chills, no chest pain or sob , no abdominal pain , nausea or vomiting or diarrhea, has chornic cough. Objective Physical Examination General Exam: Positive: Alert, Cooperative, No Acute Distress Eye Exam: Positive: PERRLA, Conjunctiva & lids normal, EOMI, Negative: Sclera icteric ENT Exam: Positive: Atraumatic, Mucous membr. moist/pink, Pharynx Normal Neck Exam: Positive: Supple, Negative: JVD, thyromegaly Chest Exam: Positive: Clear to auscultation, Diminished Heart Exam: Positive: Rate Normal, Regular Rhythm, Normal S1, Normal S2, Negative: Murmurs, Rubs Telemetry: Positive: No significant arrhythmia Abdomen Exam: Positive: Normal bowel sounds, Soft, Negative: Tenderness, Hepatospenomegaly Extremity Exam: Positive: Normal pulses, Negative: Clubbing, Cyanosis, Edema Assessment /Plan Problems (1) Acute kidney injury superimposed on CKD Status: Acute Problem Text: due to prerenal causes, diuretics and osmotic diuresis from uncontrolled sugars. improving will continue to hold diuretics. (2) Hypokalemia Status: Acute Problem Text: being replaced. (3) Chronic respiratory failure with hypoxia Status: Chronic (4) Restrictive airway disease Status: Chronic (5) Asthma Status: Chronic Problem Text: has moderate persistent asthma (6) CHF (congestive heart failure) Status: Chronic Response to Treatment: Stable Problem Text: looks to be dehydrated so diuretics held (7) Hepatitis C Status: Chronic (8) Diabetes Status: Chronic Problem Text: sugars always uncontrolled will continue with U500 150 units once a day then lispro 16 units before meals. 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 Plan/VTE VTE Prophylaxis Ordered?: Yes VS, I&O, 24H, Fishbone Vital Signs/I&O Vital Signs Date Time Temp Pulse Resp B/P (MAP) Pulse Ox O2 Delivery O2 Flow Rate FiO2 10/17/16 08:23 75 120/58 10/17/16 06:00 98.5 20 93 NIPPV (BIPAP/CPAP) 10/16/16 22:00 1.0 I&O- Last 24 Hours up to 6 AM 10/17/16 06:00 Intake Total 1140 ml Output Total 1550 ml Balance -410 ml Laboratory Data 24H LABS Laboratory Tests 2 10/16/16 10:07: Bedside Glucose (Misc Panel) 359H 10/16/16 10:57: Bedside Glucose (Misc Panel) 286H 10/16/16 12:12: Bedside Glucose (Misc Panel) 225H 10/16/16 16:16: Bedside Glucose (Misc Panel) 233H 10/16/16 20:05: Bedside Glucose (Misc Panel) 320H 10/17/16 05:05: Anion Gap 10, Glomerular Filtration Rate 21.3L, Blood Urea Nitrogen 56H, Creatinine 2.38H, Sodium Level 131L, Potassium Level 3.5, Chloride Level 91L, Carbon Dioxide Level 30, Calcium Level 9.8 CBC/BMP Laboratory Tests 10/17/16 05:05 Red Blood Count 3.84 L, Mean Corpuscular Volume 74.7 L, Mean Corpuscular Hemoglobin 21.8 L, Mean Corpuscular Hemoglobin Concent 29.2 L, Red Cell Distribution Width 17.7 H, Calcium Level 9.8 FAWAD SHEPPARD MD Oct 17, 2016 09:50
[2016-10-17] MEDS ORDERED: HUMULIN R U-500 KWIKPEN 500UNITS/ML 3ML SYRINGE (J1815 PER 5UNITS) SC ONE (12:00)
[2016-10-17 14:00] VITALS: BP 128/62
[2016-10-17] MEDS: BETAMETHASONE VAL 0.1% CR 15 GM TOP SCH (20:48)
[2016-10-17 22:00] VITALS: BP 130/60
[2016-10-18 06:00] VITALS: BP 151/67
[2016-10-18 06:26] LABS: MEAN CORPUSCULAR HEMOGLOBIN 21.4 pg (27.0-33.0); MEAN CORPUSCULAR HGB CONC 28.4 g/dl (32.0-36.5); MEAN CORPUSCULAR VOLUME 75.2 fl (80.0-96.0); RED CELL DISTRIBUTION WIDTH 17.6 % (11.5-14.5); WHITE BLOOD COUNT 9.2 K/mm3 (4.0-10.0)
[2016-10-18 06:30] LABS: CALCIUM LEVEL 10.4 MG/DL (8.8-10.2); CREATININE FOR GFR 2.2 MG/DL (0.55-1.02); GLOMERULAR FILTRATION RATE 23.4 (>39); POTASSIUM SERUM 4.4 MEQ/L (3.5-5.1)
[2016-10-18] MEDS: IPRATROPIUM 0.5MG/ALBUTEROL 2.5MG INH SOL UD 3ML (DUONEB)(J7620) NEB SCH ×4 (07:14→19:33)
[2016-10-18 07:15] VITALS: O2SAT 96
--- NOTE | 2016-10-18 08:55 | IPNPDOC ---
Subjective Date Seen The patient was seen on 10/18/16. Subjective Chief Complaint/HPI The patient is a 71-year-old female admitted with a reason for visit of Branden ( Acute Kidney Injury). Events since last encounter feeling good, no complaints today. N fever or chills, no chest pain or SOB , no abdominal pain or nausea or vomiting Objective Physical Examination General Exam: Positive: Alert, Cooperative, No Acute Distress Eye Exam: Positive: PERRLA, Conjunctiva & lids normal, EOMI, Negative: Sclera icteric ENT Exam: Positive: Atraumatic, Mucous membr. moist/pink, Pharynx Normal Neck Exam: Positive: Supple, Negative: JVD, thyromegaly Chest Exam: Positive: Clear to auscultation, Diminished Heart Exam: Positive: Rate Normal, Regular Rhythm, Normal S1, Normal S2, Negative: Murmurs, Rubs Telemetry: Positive: No significant arrhythmia Abdomen Exam: Positive: Normal bowel sounds, Soft, Negative: Tenderness, Hepatospenomegaly Extremity Exam: Positive: Normal pulses, Negative: Clubbing, Cyanosis, Edema Assessment /Plan Problems (1) Acute kidney injury superimposed on CKD Status: Acute Problem Text: due to prerenal causes, diuretics and osmotic diuresis from uncontrolled sugars. improving will continue to hold diuretics. (2) Hypokalemia Status: Acute Problem Text: being replaced. (3) Chronic respiratory failure with hypoxia Status: Chronic (4) Restrictive airway disease Status: Chronic (5) Asthma Status: Chronic Problem Text: has moderate persistent asthma (6) CHF (congestive heart failure) Status: Chronic Response to Treatment: Stable Problem Text: Chronic diastolic congestive heart failure. was behid on fluids no getting better. so diuretics held (7) Hepatitis C Status: Chronic (8) Diabetes Status: Chronic Problem Text: sugars always uncontrolled will continue with U500 150 units once a day then lispro 16 units before meals. 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 Plan/VTE VTE Prophylaxis Ordered?: Yes VS, I&O, 24H, Fishbone Vital Signs/I&O Vital Signs Date Time Temp Pulse Resp B/P (MAP) Pulse Ox O2 Delivery O2 Flow Rate FiO2 10/18/16 07:15 96 Nasal Cannula 1.0 10/18/16 07:14 75 16 10/18/16 06:00 97.3 151/67 (95) I&O- Last 24 Hours up to 6 AM 10/18/16 06:00 Intake Total 1970 ml Output Total 2200 ml Balance -230 ml Laboratory Data 24H LABS Laboratory Tests 2 10/17/16 11:16: Bedside Glucose (Misc Panel) 493H 10/17/16 16:20: Bedside Glucose (Misc Panel) 358H 10/17/16 20:12: Bedside Glucose (Misc Panel) 380H 10/18/16 05:27: Anion Gap 7L, Glomerular Filtration Rate 23.4L, Blood Urea Nitrogen 41H, Creatinine 2.20H, Sodium Level 135L, Potassium Level 4.4#, Chloride Level 97L, Carbon Dioxide Level 31, Calcium Level 10.4H CBC/BMP Laboratory Tests 10/18/16 05:27 Red Blood Count 4.02, Mean Corpuscular Volume 75.2 L, Mean Corpuscular Hemoglobin 21.4 L, Mean Corpuscular Hemoglobin Concent 28.4 L, Red Cell Distribution Width 17.6 H, Calcium Level 10.4 H FAWAD SHEPPARD MD Oct 18, 2016 08:55
[2016-10-18] MEDS: LACTULOSE 20 GM/30 ML SYRUP UD PO SCH ×2 (10:00→21:32)
[2016-10-18] MEDS: SODIUM CHLORIDE 0.9% INJ 10 ML SYR IV SCH (10:03)
[2016-10-18] MEDS: SUCRALFATE 1 GM TAB PO SCH ×2 (10:04→21:31)
[2016-10-18] MEDS: POTASSIUM CHLORIDE 10 MEQ SR TABLET PO SCH ×2 (10:04→21:32)
[2016-10-18] MEDS: HEPARIN SOD (PORCINE) 5000 UNITS/ML VIAL SC SCH ×2 (10:04→21:33)
[2016-10-18] MEDS: OMEPRAZOLE 20 MG CAP PO SCH ×2 (10:04→21:33)
[2016-10-18] MEDS: SENOKOT S TAB PO SCH ×2 (10:04→21:32)
[2016-10-18] MEDS: levETIRAcetam 250MG TABLET (KEPPRA) PO SCH ×4 (10:04→21:31)
[2016-10-18] MEDS: METOCLOPRAMIDE 10 MG TAB PO SCH ×3 (10:04→21:31)
[2016-10-18] MEDS: FLUoxetine 20 MG CAP PO SCH (10:05)
[2016-10-18] MEDS: PREGABALIN 100 MG CAP (LYRICA) PO SCH ×3 (10:05→21:31)
[2016-10-18] MEDS: BISOPROLOL FUMARATE 5 MG TAB PO SCH (10:05)
[2016-10-18] MEDS: ASPIRIN 81 MG ENTERIC TAB PO SCH (10:06)
[2016-10-18] MEDS: DOCUSATE SODIUM 100 MG CAP PO SCH ×2 (10:06→21:32)
[2016-10-18] MEDS: amLODIPine 5 MG TAB PO SCH (10:06)
[2016-10-18] MEDS: ONDANSETRON 4 MG TAB (S0181) PO SCH ×4 (10:06→21:32)
[2016-10-18] MEDS: HumaLOG INSULIN (NovoLOG) PER UNIT SC SCH ×3 (10:07→16:52)
[2016-10-18] MEDS: HUMULIN R U-500 KWIKPEN 500UNITS/ML 3ML SYRINGE (J1815 PER 5UNITS) SC SCH (10:07)
[2016-10-18] MEDS: KETOCONAZOLE 2% CREAM TOP SCH ×2 (10:07→21:32)
[2016-10-18 14:00] VITALS: BP 131/61
[2016-10-18] MEDS: BETAMETHASONE VAL 0.1% CR 15 GM TOP SCH (21:32)
[2016-10-18 22:00] VITALS: BP 139/65
[2016-10-19] MEDS: IPRATROPIUM 0.5MG/ALBUTEROL 2.5MG INH SOL UD 3ML (DUONEB)(J7620) INH PRN (03:31)
[2016-10-19 06:00] VITALS: BP 130/62
[2016-10-19 06:08] LABS: MEAN CORPUSCULAR HEMOGLOBIN 21.8 pg (27.0-33.0); MEAN CORPUSCULAR HGB CONC 29.4 g/dl (32.0-36.5); RED CELL DISTRIBUTION WIDTH 17.8 % (11.5-14.5); WHITE BLOOD COUNT 6.1 K/mm3 (4.0-10.0)
[2016-10-19 06:21] LABS: CALCIUM LEVEL 10.1 MG/DL (8.8-10.2); CREATININE FOR GFR 1.83 MG/DL (0.55-1.02); GLOMERULAR FILTRATION RATE 28.9 (>39); POTASSIUM SERUM 5.1 MEQ/L (3.5-5.1)
[2016-10-19] MEDS: IPRATROPIUM 0.5MG/ALBUTEROL 2.5MG INH SOL UD 3ML (DUONEB)(J7620) NEB SCH ×4 (08:18→23:02)
[2016-10-19 08:22] VITALS: O2SAT 96
[2016-10-19] MEDS ORDERED: POTASSIUM CHLORIDE 10 MEQ SR TABLET PO SCH (09:00)
[2016-10-19] MEDS: LACTIC ACID 12% LOTION 225 GM BTL TOP SCH (09:00)
[2016-10-19] MEDS: SUCRALFATE 1 GM TAB PO SCH ×2 (09:05→21:34)
[2016-10-19] MEDS: FLUoxetine 20 MG CAP PO SCH (09:06)
[2016-10-19] MEDS: BISOPROLOL FUMARATE 5 MG TAB PO SCH (09:07)
[2016-10-19] MEDS: ASPIRIN 81 MG ENTERIC TAB PO SCH (09:07)
[2016-10-19] MEDS: DOCUSATE SODIUM 100 MG CAP PO SCH ×2 (09:08→21:35)
[2016-10-19] MEDS: OMEPRAZOLE 20 MG CAP PO SCH ×2 (09:08→21:34)
[2016-10-19] MEDS: PREGABALIN 100 MG CAP (LYRICA) PO SCH ×3 (09:08→21:35)
[2016-10-19] MEDS: SENOKOT S TAB PO SCH ×2 (09:08→21:35)
[2016-10-19] MEDS: ONDANSETRON 4 MG TAB (S0181) PO SCH ×4 (09:09→21:35)
[2016-10-19] MEDS: METOCLOPRAMIDE 10 MG TAB PO SCH ×3 (09:09→21:34)
[2016-10-19] MEDS: levETIRAcetam 250MG TABLET (KEPPRA) PO SCH ×4 (09:09→21:34)
[2016-10-19] MEDS: amLODIPine 5 MG TAB PO SCH (09:11)
[2016-10-19] MEDS: KETOCONAZOLE 2% CREAM TOP SCH ×2 (09:11→21:42)
[2016-10-19] MEDS: HEPARIN SOD (PORCINE) 5000 UNITS/ML VIAL SC SCH ×2 (09:12→21:35)
[2016-10-19] MEDS: LACTULOSE 20 GM/30 ML SYRUP UD PO SCH ×2 (09:13→21:34)
[2016-10-19] MEDS: HumaLOG INSULIN (NovoLOG) PER UNIT SC SCH ×3 (09:13→16:55)
[2016-10-19] MEDS: SODIUM CHLORIDE 0.9% INJ 10 ML SYR IV SCH (09:14)
[2016-10-19] MEDS: HUMULIN R U-500 KWIKPEN 500UNITS/ML 3ML SYRINGE (J1815 PER 5UNITS) SC SCH (09:15)
[2016-10-19] MEDS ORDERED: HYDROCORTISONE 0.5% CREAM 30 GM TOP PRN (13:00)
[2016-10-19 14:00] VITALS: BP 138/65
--- NOTE | 2016-10-19 15:33 | IPNPDOC ---
Subjective Date Seen The patient was seen on 10/19/16. Subjective Chief Complaint/HPI The patient is a 71-year-old female admitted with a reason for visit of Branden ( Acute Kidney Injury). Events since last encounter Ms. Stern is feeling better today. She still complains of a productive cough with yellow phlegm but denies chest pain, SOB, headaches, nasal congestion, n/v , diarrhea, constipation or abdominal pain. General: Reports: Normal Appetite, Denies: Chills, Night Sweats, Fatigue Constitutional: Denies: Chills, Fever, Malaise, Night Sweats, Weakness Eyes: Denies: Pain, Vision change ENT: Denies: Head Aches, Ear Pain, Dysphagia Skin: Denies: Rash, Lesions Pulmonary: Reports: Cough, Denies: Dyspnea Cardiovascular: Denies: Chest Pain, Palpitations, Orthopnea Gastrointestinal: Denies: Nausea, Vomiting, Abdominal Pain, Diarrhea Genitourinary: Denies: Dysuria, Frequency, Incontinence Hematologic: Denies: Bruising, Bleeding Excessively Musculoskeletal: Reports: Back Pain Neurological: Denies: Weakness, Numbness, Change in speech Psych: Reports: Mood Normal Objective Physical Examination General Exam: Positive: Alert, Cooperative, No Acute Distress Eye Exam: Positive: PERRLA, Conjunctiva & lids normal, EOMI, Negative: Sclera icteric ENT Exam: Positive: Atraumatic, Mucous membr. moist/pink, Pharynx Normal Neck Exam: Positive: Supple, Negative: JVD, thyromegaly Chest Exam: Positive: Clear to auscultation, Diminished Heart Exam: Positive: Rate Normal, Regular Rhythm, Normal S1, Normal S2, Negative: Murmurs, Rubs Telemetry: Positive: No significant arrhythmia Abdomen Exam: Positive: Normal bowel sounds, Soft, Negative: Tenderness, Hepatospenomegaly Extremity Exam: Positive: Normal pulses, Negative: Clubbing, Cyanosis, Edema Skin Exam: Positive: Nl turgor and temperature, Negative: Rash, Breakdown Neuro Exam: Positive: Normal Speech Psych Exam: Positive: Mental status NL, Mood NL Assessment /Plan Problems (1) Acute kidney injury superimposed on CKD Status: Acute Problem Text: Most likely due to pre-renal causes due to over-diureses. Will continue to hold diuretics and monitor. (2) Hypokalemia Status: Resolved Problem Text: low on admission, now Currently 5.1 after being put on 40mEq BID Will reduce daily dose to 40 mEQ daily The patient's potassium has normalized Continue to monitor (3) Chronic respiratory failure with hypoxia Status: Chronic Problem Text: Will continue with duoneb treatments and oxygen supplementation pt is on 1 L of O2 currently saturating at 97%, she is on 2L home O2 pt was not labored on exam. (4) CHF (congestive heart failure) Status: Chronic Response to Treatment: Stable Problem Text: Chronic diastolic congestive heart failure. Diuretics are being held and the patient is on fluid restriction of 2200. Echo from 05/2016 showed EF 65% and IMPRESSION: 1. Normal global left ventricular systolic function. There are some features of left ventricular diastolic dysfunction as mentioned above. 2. Aortic valve sclerosis with trace aortic regurgitation. No significant aortic stenosis detected. 3. Mitral annulus calcification with trace mitral regurgitation. 4. Mild tricuspid regurgitation with mild pulmonary hypertension BNP 41.9 on admission Pt did not have swelling on exam, appears euvolemic volume compensated (5) Diabetes Status: Chronic Problem Text: The patient has a history of uncontrolled hyperglycemia. c/w insulin 160 units daily Humulin U-500 lispro 25 units before meals (6) Restrictive airway disease Status: Chronic Problem Text: Stable Will continue with duoneb treatments oxygen supplementation, pt is sating at 97% on 1 L o2, requires 2 L home O2 usually (7) Asthma Status: Chronic Problem Text: stable has moderate persistent asthma, will continue with duoneb and oxygen treatment. (8) HTN (hypertension) Status: Chronic Response to Treatment: Stable Problem Text: currently stable 138/65 today continue with home meds. (9) Seizure disorder Status: Chronic Problem Text: Continue with home medication of Keppra. 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 (14) MATT on CPAP Status: Chronic Problem Text: continue with cpap use. 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 Response to Treatment: Stable Problem Text: stable pt is not currently complaining of pain Plan/VTE VTE Prophylaxis Ordered?: Yes VS, I&O, 24H, Fishbone Vital Signs/I&O Vital Signs Date Time Temp Pulse Resp B/P (MAP) Pulse Ox O2 Delivery O2 Flow Rate FiO2 10/19/16 06:00 97.2 78 20 130/62 (84) 93 NIPPV (BIPAP/CPAP) 1.0 I&O- Last 24 Hours up to 6 AM 10/19/16 06:00 Intake Total 2086 ml Output Total 1950 ml Balance 136 ml Laboratory Data 24H LABS Laboratory Tests 2 10/18/16 11:43: Bedside Glucose (Misc Panel) 414H 10/18/16 16:27: Bedside Glucose (Misc Panel) 435H 10/18/16 20:34: Bedside Glucose (Misc Panel) 381H 10/19/16 05:23: Anion Gap 5L, Glomerular Filtration Rate 28.9L, Blood Urea Nitrogen 30H, Creatinine 1.83H, Sodium Level 134L, Potassium Level 5.1, Chloride Level 100, Carbon Dioxide Level 29, Calcium Level 10.1 CBC/BMP Laboratory Tests 10/19/16 05:23 Red Blood Count 3.71 L, Mean Corpuscular Volume 74.0 L, Mean Corpuscular Hemoglobin 21.8 L, Mean Corpuscular Hemoglobin Concent 29.4 L, Red Cell Distribution Width 17.8 H, Calcium Level 10.1 GME ATTESTATION GME ATTESTATION My preceptor for this patient encounter was physically present in the building during the encounter and was fully available. As needed, all aspects of the patient interview, examination, medical decision making process, and medical care plan development were reviewed and approved by the preceptor. Preceptor is aware and concurs with the plan as stated in the body of this note and will attest to such by his/her cosignature. BAHMAN BENOIT DO Oct 19, 2016 07:42 TIAN ARITA Oct 20, 2016 16:59
[2016-10-19 15:53] LABS: CALCIUM LEVEL 9.5 MG/DL (8.8-10.2); CREATININE FOR GFR 1.95 MG/DL (0.55-1.02); GLOMERULAR FILTRATION RATE 26.8 (>39); POTASSIUM SERUM 4.7 MEQ/L (3.5-5.1)
[2016-10-19] MEDS: ACETAMINOPHEN 650MG ER TAB (TYLENOL ARTHRITIS) PO PRN (16:53)
[2016-10-19] MEDS ORDERED: HumaLOG INSULIN (NovoLOG) PER UNIT SC SCH (21:00)
[2016-10-19] MEDS: BETAMETHASONE VAL 0.1% CR 15 GM TOP SCH (21:42)
[2016-10-19 22:00] VITALS: BP 132/60
[2016-10-20 05:58] LABS: MEAN CORPUSCULAR HEMOGLOBIN 21.7 pg (27.0-33.0); MEAN CORPUSCULAR HGB CONC 29.2 g/dl (32.0-36.5); WHITE BLOOD COUNT 5.6 K/mm3 (4.0-10.0)
[2016-10-20 06:00] VITALS: BP 145/64
[2016-10-20 06:27] LABS: CALCIUM LEVEL 9.4 MG/DL (8.8-10.2); CREATININE FOR GFR 1.77 MG/DL (0.55-1.02); MAGNESIUM LEVEL 2.5 MG/DL (1.8-2.4); POTASSIUM SERUM 4.8 MEQ/L (3.5-5.1)
[2016-10-20] MEDS: IPRATROPIUM 0.5MG/ALBUTEROL 2.5MG INH SOL UD 3ML (DUONEB)(J7620) NEB SCH ×2 (07:09→11:15)
[2016-10-20] MEDS: PREGABALIN 100 MG CAP (LYRICA) PO SCH (08:17)
[2016-10-20 08:19] VITALS: BP 133/60
[2016-10-20] MEDS: DOCUSATE SODIUM 100 MG CAP PO SCH (08:19)
[2016-10-20] MEDS: BISOPROLOL FUMARATE 5 MG TAB PO SCH (08:19)
[2016-10-20] MEDS: amLODIPine 5 MG TAB PO SCH (08:19)
[2016-10-20] MEDS: levETIRAcetam 250MG TABLET (KEPPRA) PO SCH (08:20)
[2016-10-20] MEDS: ONDANSETRON 4 MG TAB (S0181) PO SCH (08:20)
[2016-10-20] MEDS: FLUoxetine 20 MG CAP PO SCH (08:20)
[2016-10-20] MEDS: SUCRALFATE 1 GM TAB PO SCH (08:21)
[2016-10-20] MEDS: OMEPRAZOLE 20 MG CAP PO SCH (08:21)
[2016-10-20] MEDS: ASPIRIN 81 MG ENTERIC TAB PO SCH (08:21)
[2016-10-20] MEDS: METOCLOPRAMIDE 10 MG TAB PO SCH (08:22)
[2016-10-20] MEDS: SENOKOT S TAB PO SCH (08:22)
[2016-10-20] MEDS: LACTULOSE 20 GM/30 ML SYRUP UD PO SCH (08:25)
[2016-10-20] MEDS: HumaLOG INSULIN (NovoLOG) PER UNIT SC SCH ×2 (08:25→11:36)
[2016-10-20] MEDS: HEPARIN SOD (PORCINE) 5000 UNITS/ML VIAL SC SCH (08:26)
[2016-10-20] MEDS: LACTIC ACID 12% LOTION 225 GM BTL TOP SCH (08:35)
[2016-10-20] MEDS: SODIUM CHLORIDE 0.9% INJ 10 ML SYR IV SCH (08:58)
[2016-10-20] MEDS ORDERED: ENTER DRUG NAME HERE (PATIENT'S OWN MED) TOP SCH (09:00)
[2016-10-20] MEDS ORDERED: HUMULIN R U-500 KWIKPEN 500UNITS/ML 3ML SYRINGE (J1815 PER 5UNITS) SC SCH (09:00)
[2016-10-20] MEDS ORDERED: POTASSIUM CHLORIDE 10 MEQ SR TABLET PO SCH (09:00)
[2016-10-20] MEDS ORDERED: POTA10CA PO (10:43)
[2016-10-20] MEDS: KETOCONAZOLE 2% CREAM TOP SCH (10:47)
--- NOTE | 2016-10-20 11:31 | DS.PDOC ---
Discharge Summary General Date of Admission Oct 15, 2016 at 14:46 Date of Discharge 10/20/2016 Discharge Summary DISCHARGE SUMMARY DATE OF ADMISSION: 10/15/2016 DATE OF DISCHARGE: 10/20/2016 PRIMARY CARE PHYSICIAN: Laura Kaufman with Dr. 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 1. Acute on chronic kidney disease stage III to IV: Baseline creatinine appears to be in the mid ones. Creatinine upon admission was 3.23 and has now improved to 1.77. We have been holding all her diuretics. Since Cr is steadily improving, we will discharge her home with plans to have a repeat BMP and appt with PCP in 2 days, at which point, if her Cr has returned to baseline, her PCP can advise her to restart diuretics. 2. Hypokalemia: The patient's potassium upon admission was 2.7. At that time, she was started on KCl 40 mEq by mouth twice a day, and her potassium jose antonio to 5.1. We have now decreased her potassium to 20 mEq by mouth daily and will send her home on this. BMP check in 2 days with PCP. 3. Hyponatremia: Sodium upon admission was 127. This appears to have been hypovolemic, as it has now trended up to 138 with holding her diuretics. 4. Chronic hypoxic respiratory failure: This is multifactorial in nature, secondary to her sleep apnea, obesity hypoventilation syndrome, paralyzed hemidiaphragm, and asthma. She usually wears 1-2 L of oxygen chronically. She is currently at her baseline. Continue home meds. Continue nightly NIPPV. 5. Chronic diastolic CHF: Currently holding all diuresis, given her acute kidney injury. Echocardiogram in May 2016 showed a preserved EF with diastolic dysfunction, trace aortic regurg and trace mitral regurg, mild tricuspid regurg, and mild pulmonary hypertension. As mentioned above, we will discharge her home with plans to have a repeat BMP and appt with PCP in 2 days, at which point, if her Cr has returned to baseline, her PCP can advise her to restart diuretics. 6. Hypertension: Continue home Norvasc, beta red 7. Depression: Continue home Prozac 8. Seizure disorder: Continue home Keppra. 9. Diabetes mellitus type 2: Continue home U500, as well as prandial insulin. Needs regular, close follow up and adjustment of insulin dose with PCP. 10. GERD: Continue home Carafate, Reglan, PPI. 11. Anemia: This appears to be chronic in nature and her baseline is in the eights to nines range. The patient is currently at baseline. I suspect this is secondary to her chronic kidney disease. We'll continue to monitor. DVT prophylaxis: Heparin PHYSICAL EXAMINATION ON DISCHARGE: VITAL SIGNS: Vital Signs Date Time Temp Pulse Resp B/P (MAP) Pulse Ox O2 Delivery O2 Flow Rate FiO2 10/20/16 08:19 83 133/60 10/20/16 06:00 97.5 18 97 NIPPV (BIPAP/CPAP) 2.0 GENERAL: Awake, alert, no acute distress CARDIOVASCULAR EXAMINATION: Regular rate and rhythm, with no rubs, gallops, or murmur. RESPIRATORY EXAMINATION: Clear to auscultation bilaterally with no wheezes, rales, or rhonchi. ABDOMINAL EXAMINATION: Soft, nontender, nondistended. Bowel sounds present. EXTREMITIES: No clubbing or edema noted. 2+ pulses in the radial bilaterally. NEURO: AAOx3, normal speech PSYCH: normal mood and affect DISPOSITION: Home with resumption of home health services DISCHARGE INSTRUCTIONS: PCP Laura Kaufman in 2 days with BMP check and further evaluation of whether or not she can restart her diuretics. Dr. Nation within 1 week. If symptoms return, or if you experience worsening of your symptoms, please call your doctor or return to the emergency department. ITEMS THAT NEED OUTPATIENT FOLLOWUP: The patient will be seen her PCP 2 days after discharge, at which point a BM P is being drawn. At that point, her PCP will need to evaluate her kidney function and her potassium and advise the patient whether or not she can restart her diuretics. Since her kidney function is not quite yet at baseline, she is being discharged home without any diuretics. The patient also needs regular, close monitoring of her glucoses and adjustment of insulin doses with her PCP. Patient was seen and examined by me on the day of discharge, and I spent a total time of greater than 30 minutes on this discharge. Vital Signs/I&Os Vital Signs Date Time Temp Pulse Resp B/P (MAP) Pulse Ox O2 Delivery O2 Flow Rate FiO2 10/20/16 08:19 83 133/60 10/20/16 06:00 97.5 18 97 NIPPV (BIPAP/CPAP) 2.0 I&O- Last 24 Hours up to 6 AM 10/20/16 06:00 Intake Total 2100 ml Output Total 1050 ml Balance 1050 ml Laboratory Data Labs 24H Laboratory Tests 2 10/19/16 11:43: Bedside Glucose (Misc Panel) 336H 10/19/16 15:10: Anion Gap 8, Glomerular Filtration Rate 26.8L, Blood Urea Nitrogen 28H, Creatinine 1.95H, Sodium Level 134L, Potassium Level 4.7, Chloride Level 100, Carbon Dioxide Level 26, Calcium Level 9.5, Thyroid Stimulating Hormone (TSH) 0.756 10/19/16 16:50: Bedside Glucose (Misc Panel) 342H 10/19/16 20:24: Bedside Glucose (Misc Panel) 458H 10/20/16 05:26: Anion Gap 8, Glomerular Filtration Rate 30.0L, Blood Urea Nitrogen 22H, Creatinine 1.77H, Sodium Level 138, Potassium Level 4.8, Chloride Level 103, Carbon Dioxide Level 27, Calcium Level 9.4, Magnesium Level 2.5H CBC/BMP Laboratory Tests 10/19/16 15:10 Calcium Level 9.5 10/20/16 05:26 Calcium Level 9.4, Red Blood Count 3.75 L, Mean Corpuscular Volume 74.0 L, Mean Corpuscular Hemoglobin 21.7 L, Mean Corpuscular Hemoglobin Concent 29.2 L, Red Cell Distribution Width 18.0 H FSBS Laboratory Tests Test 10/19/16 11:43 10/19/16 16:50 10/19/16 20:24 Range/Units Bedside Glucose (Misc Panel) 336 342 458 83-110 MG/DL Discharge Medications Scheduled (Amitiza) 24 Mcg Cap, 24 MCG PO QHS, (Reported) (Ammonium Lactate) 12 % Cre, 1 DOSE TOP BID, (Reported) APPLY TO LEGS AND FEET (Incruse Ellipta) 62.5 Mcg/Inh Inh, 62.5 MCG INH DAILY, (Reported) Amlodipine Besylate (Amlodipine Besylate) 5 Mg Tab, 5 MG PO DAILY, (Reported) Aspirin (Aspirin 81) 81 Mg Tab, 81 MG PO DAILY, (Reported) Betamethasone Mala (Betamethasone Valerate) 1 Dose/15 Gm Cream, 1 DOSE TOP QHS, ( Reported) USES ON LEGS FOR HOT SPOTS RELATED TO DIABETES Bisoprolol Fumarate (Bisoprolol Fumarate) 5 Mg Tab, 2.5 MG PO DAILY, (Reported) Colchicine (Colchicine) 0.6 Mg Tab, 0.6 MG PO DAILY, (Reported) Cranberry Extract (Cranberry) 500 Mg Cap, 500 MG PO TID, (Reported) Docusate Sodium (Docusate Sodium) 100 Mg Cap, 100 MG PO BID, (Reported) Ergocalciferol (Vitamin D) 50,000 Unit Cap, 50,000 UNIT PO MTHLY, (Reported) TAKES ON 1ST OF THE MONTH Fluoxetine Hcl (Fluoxetine) 20 Mg Cap, 20 MG PO DAILY, (Reported) TAKES AT NOON Insulin Aspart (Novolog) 100 U/Ml Inj, 16 UNITS SC AC, (Reported) Insulin Human Regular (Humulin R U-500 Kwikpen) 500 Unit/Ml Inj, 50 UNIT SC TID, (Reported) Ketoconazole (Ketoconazole) 1 Dose/15 Gm Cream, 1 DOSE TOP BID, (Reported) APPLIES TO UPPER LEGS Lactulose (Lactulose) 10 Gm/15 Ml Radha, 30 ML PO BID, (Reported) MIX WITH JUICE Levetiracetam (Keppra) 500 Mg Tab, 500 MG PO QID, (Reported) Metoclopramide HCl (Reglan) 10 Mg Tab, 10 MG PO TID, (Reported) Metolazone (Metolazone) 5 Mg Tab, 5 MG PO 3XW, (Reported) MON,WED,FRI Omeprazole (Omeprazole) 20 Mg Cap, 20 MG PO BID, (Reported) Ondansetron HCl (Ondansetron HCl) 4 Mg Tab, 4 MG PO QID, (Reported) Potassium Chloride (Klor-Con M10) 10 Meq Tabcr, 20 MEQ PO DAILY Pregabalin (Lyrica) 100 Mg Cap, 100 MG PO TID, (Reported) Senna (Senokot) 8.6 Mg Tab, 2 TAB PO BID, (Reported) Spironolactone (Aldactone) 25 Mg Tab, 25 MG PO BID, (Reported) Sucralfate (Sucralfate) 1 Gm Tab, 1 GM PO BID, (Reported) Torsemide (Torsemide) 100 Mg Tab, 100 MG PO QAM, (Reported) Torsemide (Torsemide) 100 Mg Tab, 50 MG PO QPM, (Reported) Scheduled PRN (Fioricet/Codeine 71-227-63-30 mg) 1 Cap Cap, 1 CAP PO TID PRN for HEADACHE, ( Reported) (Vagisil Maximum Strength) 1 % Mis, 1 DOSE TOP BID PRN for ITCHING, (Reported) Acetaminophen (Tylenol 8 Hour Arthritis) 650 Mg Tab, 650 MG PO Q8H PRN for PAIN, (Reported) Albuterol/Ipratropium (Ipratropium Heth/Albut 0.5-2.5 (3) mg/3Ml) 1 Radha Radha, 1 RADHA INH QID PRN for SHORTNESS OF BREATH, (Reported) Milk Of Magnesia (Milk of Magnesia) 1,200 Mg/15 Ml Esperanza, 30 ML PO DAILY PRN for CONSTIPATION, (Reported) Nystatin (Nystatin Powder) 100,000 Unit/Gm Pow, 1 DOSE TOP BID PRN for RASH, ( Reported) PLACES UNDER BREASTS Scopolamine (Transderm-Scop) 1.5 Mg Dis, 1.5 MG TOP Q72H PRN for NAUSEA, ( Reported) APPLIED BEHIND RIGHT EAR Allergies Coded Allergies: Cephalosporins (Verified Allergy, Intermediate, KEFLEX - HIVES, 08/05/16) Chlorpromazine (Verified Allergy, Intermediate, HIVES, 08/05/16) Loratadine (Verified Allergy, Intermediate, HIVES, 08/05/16) Penicillins (Verified Allergy, Intermediate, HIVES, 08/05/16) Pentazocine (Verified Allergy, Intermediate, HIVES, 08/05/16) Sulfa Antibiotics (Unverified Allergy, Intermediate, HIVES, 08/05/16) Iodine (Verified Allergy, Unknown, 08/05/16) Methadone (Verified Allergy, Unknown, 08/05/16) Fluticasone (Verified Adverse Reaction, Mild, THRUSH, 08/05/16) Latex (Verified Adverse Reaction, Mild, RISK, 08/05/16) Salmeterol (Verified Adverse Reaction, Mild, THRUSH, 08/05/16) TIAN ARITA Oct 20, 2016 11:31
[2017-01-29] MEDS ORDERED: CIPR-249 PO (18:51)
[2017-01-29] MEDS ORDERED: PRED10TA2 PO (18:53)
== END 2016-10-20 13:00 | disposition home health service (06) | DRG 683 ==
LOC: M ED 09:45 → EDBD 09:45 → M ED INP 14:46 → M PCU 18:00 → M MSPAV 10-16 14:23
PROVIDERS: ADMIT Internal Medicine; ATTEND Hospitalist
DX: N17.9 Acute kidney failure, unspecified (principal); I50.32 Chronic diastolic (congestive) heart failure; E87.1 Hypo-osmolality and hyponatremia; J96.11 Chronic respiratory failure with hypoxia; Z68.41 Body mass index [BMI] 40.0-44.9, adult; I13.0 Hypertensive heart and chronic kidney disease with heart failure and stage 1 through stage 4 chronic kidney disease, or unspecified chronic kidney disease; E66.01 Morbid (severe) obesity due to excess calories; E11.65 Type 2 diabetes mellitus with hyperglycemia; K21.9 Gastro-esophageal reflux disease without esophagitis; E87.6 Hypokalemia; N18.4 Chronic kidney disease, stage 4 (severe); F32.9 Major depressive disorder, single episode, unspecified; D64.9 Anemia, unspecified; Z79.899 Other long term (current) drug therapy; Z79.4 Long term (current) use of insulin; Z79.82 Long term (current) use of aspirin; Z88.2 Allergy status to sulfonamides; Z88.8 Allergy status to other drugs, medicaments and biological substances; Z88.0 Allergy status to penicillin; Z91.040 Latex allergy status; G47.33 Obstructive sleep apnea (adult) (pediatric); M10.9 Gout, unspecified; G40.909 Epilepsy, unspecified, not intractable, without status epilepticus; J98.6 Disorders of diaphragm; F41.9 Anxiety disorder, unspecified; K59.00 Constipation, unspecified; B18.2 Chronic viral hepatitis C

== ENCOUNTER → 2016-11-02 | Outpatient (CLI) | payer MEDICARE, MEDICAID ==
[~2016-11-02] MED LIST changes: +ALLO15TA GT; +CIPR-249 PO; +CIPR500T3 PO; +CLEO300C2 PO; +DULO30CA PO; +ISOVUE-300 61% 50ML VIAL (Q9967) As Ordered ONE; +KEPP250T5 PO; +KETO0.05 TOP; +LEVE250T5 PO; +LIDOCAINE 2% MDV 20 ML VIAL As Ordered ONE; +MIDAZOLAM INJ 2 MG/2 ML VIAL (J2250) As Ordered ONE; +POTA10CA PO; +POTA50TAB PO; +SPIR25TA2 PO; +TOUJ1.2I SC; +ZYLO300T4 PO; +fentaNYL 100 MCG/2 ML INJECTION (J3010) As Ordered ONE
--- NOTE | 2016-11-04 12:54 | ROOPDOC ---
[facility] Report Of Operation Report of Operation DATE OF PROCEDURE: 11/02/16 PREOPERATIVE DIAGNOSES: Dysfunctional right internal jugular vein Port-A-Cath. POSTOPERATIVE DIAGNOSES: Dysfunctional right internal jugular vein Port-A-Cath. PROCEDURE: Right internal jugular vein Port-A-Cath flow study. Right internal jugular vein Port-A-Cath removal. Right innominate vein angioplasty with 14 x 4 balloon. Superior vena cava angioplasty with 14 x 4 balloon. Right atrial into plasty with 14 x 4 balloon. Insertion of right internal jugular vein Port-A-Cath. SURGEON: Dr. Randy Dia MD FACILITY MAINTENANCE WORKER: Alysia Galarza licensed energy and conservation technician and Mima Noel licensed energy and conservation technician. INDICATION: Patient is a 71-year-old female with a right internal jugular vein Port-A-Cath which has been in place for greater than 20 years. Patient requires support for frequent blood draws. The patient recently underwent exchange of her Port-A-Cath due to inability to aspirate and draw blood from the Port-A-Cath. She states the catheter work for approximately 24 hours after which she was no longer able to aspirate and draw blood from the Port-A-Cath. Patient will undergo a catheter flow study with possible angioplasty, stent, revision of the Port-A-Cath and or possible exchange of the Port-A-Cath. Risks benefits and alternative treatment options were discussed with the patient. Benefits included but were not limited to return of function of the report for blood draws and return aspiration function to the port. Alternative treatment options included but were not limited to no intervention. Risks included but were not limited to infection, bleeding, renal failure requiring hemodialysis, possible need for open surgical intervention, pneumothorax, hemothorax, cerebrovascular accident, myocardial infarction, pulmonary and was, DVT, loss of limb, loss of life and poor outcome. Patient's questions were answered, consent was obtained, and patient agrees to proceed with Port-A-Cath flow study with possible angioplasty, stent and/or exchange for removal of the Port-A-Cath. ANESTHESIA: Local with sedation with 20 cc of 2% lidocaine, 1.5 mg of Versed and 75 g of fentanyl.. SEDATION TIME: 1:50 PM until 2:20 PM. The sedation was given by the nurse in the room. The cardiopulmonary monitoring was performed by the nurse in the room. I was present for and directed the entire case. ESTIMATED BLOOD LOSS: Minimal. IV FLUIDS: 100 cc HEPARIN: None PROTAMINE: None FLUORO TIME: 2.8 min. CONTRAST: 4 cc COMPLICATIONS: None. . DRAINS: None SPECIMENS: None IMPLANTS: Right internal jugular vein Port-A-Cath with the length of the catheter cut to 20 cm. PROCEDURE: Patient was taken to be angina with suite, placed supine on the angiography room table and then prepped and draped in a standard surgical fashion. A surgical time out was completed by myself and all the team members in the room confirming the appropriate procedure, laterality and patient. The right chest Port-A-Cath was then cannulated with an access needle. Attempts were made to aspirate which were unsuccessful, the port flushed easily. A catheter flow study was then performed which showed a long fibrin sheath extending into the right atrium and right ventricle. The length of the catheter was also slightly long as the catheter was in the right ventricle. An incision was then made over the Port-A-Cath in the right chest after anesthetizing the overlying skin with 2% lidocaine. The catheter and Port-A- Cath were partially removed such that the tip of the Port-A-Cath was in the right internal jugular vein innominate vein junction. Another catheter flow study was performed confirming the long fibrin sheath extending from the internal jugular vein to the innominate vein superior vena cava into the right atrium and right ventricle. The catheter was then fully removed over a Izaguirre wire. A 14 x 4 balloon was then used to angioplasty the right innominate vein, superior vena cava, and right atrium. A followup catheter flow study showed resolution of the fibrin sheath with good filling of the innominate vein superior vena cava right atrium and right ventricle and pulmonary arteries with no residual fibrin sheath or stenosis noted. A new Port-A-Cath was then placed with the catheter cut to 20 cm length. The catheter was advanced over the Izaguirre wire with the tip in the superior vena cava right atrial junction. The port was then attached to the catheter and the port placed in the previous location in the right chest. The port was then accessed with a access needle and aspirated and flushed easily. The port was then flushed with heparinized saline. The incision overlying the port was closed using 2-0 Vicryl approximated deeper layers and 4-0 Monocryl to approximate the skin in a running subcuticular fashion. Steri-Strips and dressings were applied. All instrument, sponge and needle counts were correct at the end of the case. Dr. Dia was present for and directed the entire case. Patient was transferred to the holding area and subsequently discharged in stable condition. The Port-A- Cath is stable for use for access and blood draws after 7 days. RADIOLOGIC SUPERVISION AND INTERPRETATION: The initial catheter flow study showed a fibrin sheath extending along the course of the catheter and through the right atrium into the right ventricle. The length of the catheter was longer than usual and the tip was in the right atrial and right ventricle junction. The catheter was removed and angioplasty of the right innominate vein , the superior vena cava and the right atrium was performed with a 14 x 4 balloon. Completion catheter flow study showed resolution of the fibrin sheath with no residual stenosis or abnormality noted with widely patent right innominate vein, superior vena cava, right atrium, right ventricle and pulmonary arteries. A new Port-A-Cath was placed with exchange over the wire with the length of the catheter cut to 20 cm. Final fluoroscopic image showed the catheter to be in good position and good alignment with the tip in the superior vena cava right atrial junction, with no pneumo-or hemothorax noted. The Port-A-Cath is stable for use in 7 days. Niranjan Dia MD Nov 04, 2016 12:54
== END | disposition home or self-care (01) ==
LOC: M IRPRO 11:42 → M RADPRO 11:42
PROVIDERS: ATTEND Nurse Practitioner Family
DX: T82.898A Other specified complication of vascular prosthetic devices, implants and grafts, initial encounter (principal)
CPT/HCPCS: 36582; 36595; 75901; 99152; 99153; C1725; C1769; C1788; J2250; J3010; Q9967

== ENCOUNTER → 2016-11-11 | Outpatient (CLI) | payer MEDICARE, MEDICAID ==
[~2016-11-11] MED LIST changes: -ISOVUE-300 61% 50ML VIAL (Q9967) As Ordered ONE; -LIDOCAINE 2% MDV 20 ML VIAL As Ordered ONE; -MIDAZOLAM INJ 2 MG/2 ML VIAL (J2250) As Ordered ONE; -fentaNYL 100 MCG/2 ML INJECTION (J3010) As Ordered ONE
--- NOTE | 2016-11-30 01:49 | ECWPNPC ---
PATIENT NAME: SHIVANI PAYNE I : 1945 GENDER: FEMALE VISIT DATE: 11/11/2016 DISCHARGE DATE: 11/11/16900 VISIT LOCKED DATE TIME: PHYSICIAN: JAIMEE TROTTER RESOURCE: JAIMEE TROTTER REASON FOR APPOINTMENT 1. NECK/SHOULDER PAIN HISTORY OF PRESENT ILLNESS FALL RISK SCREENING: SCREENING :NO FALLS IN THE PAST YEAR 71 YEAR OLD FEMALE PATIENT WITH HISTORY OF CHRONIC NECK AND SHOULDER PAIN. PATIENT DESCRIBES THE PAIN ACHING, THROBBING, SORE AND HAVING IT ALL THE TIME WITH A PAIN SCORE OF 7/10. PATIENT REPORTS HAVING HER PAIN PUMP TURNED DOWN 3 MONTHS AGO AND THAT IS WHEN THE NECK AND SHOULDER PAIN BEGAN. AT THIS TIME THE PATIENT REPORTS SHE IS NOT USING TYLENOL DR. GRAFF ADVISED SHE NOT USE IT TO DUE TO HER KIDNEYS. PATIENT TRIES TO STAY ACTIVE BUT REPORTS IT BEING VERY DIFFICULT DUE TO PAIN. PATIENT DENIES UNEXPLAINABLE WEIGHT LOSS, FEVER, CHILLS, NEW CHANGES ON HER URINARY OR BOWEL CONTROL. PAIN SCREENING: PATIENT HAS A COMPLAINT OF ACUTE OR CHRONIC PAIN :YES CURRENT MEDICATIONS TAKING TYLENOL 8 HOUR 650 MG TABLET EXTENDED RELEASE 1 TABLET ORALLY EVERY 8 HRS PRN TAKING DUONEB 1 DOSE VIA NEBULIZER TID TAKING BISOPROLOL FUMARATE 5 MG TABLET 1/2 TABLET ORALLY ONCE A DAY TAKING FLUOXETINE HCL 20 MG CAPSULE 1 CAPSULE IN THE MORNING ORALLY ONCE A DAY TAKING ONDANSETRON 4 MG TABLET DISPERSIBLE 1 TABLET ON TONGUE ORALLY QID TAKING KEPPRA 500 MG TABLET 1 TABLET ORALLY QID TAKING METOCLOPRAMIDE HCL 10 MG TABLET 1 TAB(S) ORALLY TID TAKING OMEPRAZOLE 20 MG CAPSULE DELAYED RELEASE 1 CAPSULE ORALLY BID TAKING LACTULOSE 20 GM/30ML SOLUTION 30 ML ORALLY BID TAKING DOCUSATE SODIUM 100 MG CAPSULE 1 CAPSULE ORALLY BID PRN TAKING SENNA 8.6-50 MG TABLET 2 TADS ORALLY BID TAKING NOVOLOG 100 UNIT/ML SOLUTION SLIDING SCALE SUBCUTANEOUS BEFORE EVERY MEAL & HS TAKING BREO ELLIPTA 100-25 MCG/INH AEROSOL POWDER BREATH ACTIVATED 1 PUFF INHALATION ONCE A DAY TAKING TORSEMIDE 20 MG TABLET 1 TABLET ORALLY 30 MGS IN A.M., 20 MGS IN P.M. TAKING SPIRONOLACTONE 25 MG TABLET 1 TABLET ORALLY BID TAKING ASPIRIN 81 MG TABLET 1 TABLET ORALLY ONCE A DAY TAKING AMMONIUM LACTATE 12 % CREAM 1 APPLICATION TO AFFECTED AREA EXTERNALLY TWICE A DAY TAKING AMITIZA 24 MCG CAPSULE 1 CAPSULE WITH FOOD ORALLY BEFORE BEDTIME TAKING MILK OF MAGNESIA 1200 MG/15ML SUSPENSION 5 ML NEEDED ORALLY FOUR TIMES A DAY TAKING SCOPOLAMINE BASE 1.5 MG PATCH 72 HOUR 1 PATCH TO SKIN NEEDED TRANSDERMAL TAKING SUCRALFATE 1 GM/10ML SUSPENSION 10 ML ORALLY TWICE A DAY TAKING DIFLUCAN 150MG (1 TABLET) 150 MG TABLET 1 TABLET ORALLY ONCE FOR YEAST INFECTION TAKING CRANBERRY 500 MG CAPSULE 1 CAP(S) ORALLY THREE TIMES A DAY TAKING VITAMIN D (ERGOCALCIFEROL) 07503 UNIT CAPSULE 1 CAPSULE ORALLY MONTHLY TAKING HUMULIN R U-500 (CONCENTRATED) 500 UNIT/ML SOLUTION 50 UNITS SUBCUTANEOUS TID TAKING K-PHOS 500 MG TABLET 1 TAB ORALLY BID TAKING POTASSIUM 1 TAB ORAL BID TAKING ALLOPURINOL 300 MG TABLET 1 TABLET ORALLY ONCE A DAY TAKING AMLODIPINE BESYLATE 5 MG TABLET 1 TABLET ORALLY ONCE A DAY TAKING COLCHICINE 0.6 MG TABLET 1 TABLET ORALLY ONCE A DAY NOT-TAKING RESTASIS 0.05 % EMULSION 1 INTO AFFECTED EYE OPHTHALMIC TWICE A DAY NOT-TAKING POTASSIUM CHLORIDE TABLET NOT-TAKING LYRICA 50 MG CAPSULE 1 CAPSULE ORALLY BID NOT-TAKING SPIRIVA HANDIHALER 18 MCG CAPSULE 1 CAPSULE INHALATION ONCE A DAY NOT-TAKING VERAPAMIL HCL 120 MG TABLET 1 TABLET ORALLY DAILY NOT-TAKING PYRIDIUM 100 MG TABLET 1 TABLET AFTER MEALS ORALLY THREE TIMES A DAY NEEDED FOR URINARY SYMPTOMS DISCONTINUED BACLOFEN 20 MG TABLET 1 TABLET WITH FOOD OR MILK ORALLY BID DISCONTINUED PREDNISOLONE ACETATE 0.12 % SUSPENSION 1 DROP INTO AFFECTED EYE OPHTHALMIC QID DISCONTINUED PROMETHAZINE HCL 25 MG TABLET 1 TABLET NEEDED ORALLY TID DISCONTINUED DIPHENHYDRAMINE HCL (SLEEP) 50 MG TABLET 1 TABLET AT BEDTIME ORALLY ONCE A DAY DISCONTINUED VICTOZA 18 MG/3ML SOLUTION PEN-INJECTOR 0.2 ML SUBCUTANEOUS ONCE A DAY DISCONTINUED LANTUS 100 UNIT/ML SOLUTION 100 UNITS SUBCUTANEOUS TWICE DAILY DISCONTINUED LEVOFLOXACIN 750 MG TABLET 1 TABLET ORALLY ONCE A DAY DISCONTINUED CALCITRIOL 0.5 MCG CAPSULE 1 CAPSULE ORALLY ONCE A DAY DISCONTINUED METOLAZONE 2.5 MG TABLET 1 TABLET ORALLY ONCE A DAY DISCONTINUED VIGAMOX 0.5 % SOLUTION 1 DROP INTO AFFECTED EYE OPHTHALMIC FOUR TIMES A DAY DISCONTINUED DRISDOL 15239 UNIT CAPSULE 1 CAPSULE ORALLY ONCE A DAY DISCONTINUED PREDNISOLONE 5 MG TABLET 2 TABS ORALLY 2 TIME DAILY DISCONTINUED CIPROFLOXACIN HCL 500 MG TABLET 1 TABLET ORALLY EVERY 12 HRS DISCONTINUED MORPHINE SULFATE-NACL (PF) 2-0.9 MG/2ML SOLUTION PREFILLED SYRINGE 1 ML NEEDED INTRAVENOUS EVERY 4 HRS MEDICATION LIST REVIEWED AND RECONCILED WITH THE PATIENT PAST MEDICAL HISTORY NEUROGENIC URINARY RETENTION RECURRENT UTI HYPERTENSION INCONTIENCE,GERD MIGRAINE HX OF HEPATITIS A SEIZURES CATARACTS DVT LEFT LEG TX XARELTO CAUSED GI BLEED/ ALLYSSA FILTER ILEUS [address] TURNER EGD AND COLONOSCOPY TYPE 2 DIABETES ASTHMA KIDNEY DISEASE ARTHRITIS CHF HAS MARCAINE/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 BACK THAT AT PRESENT TIME IS TURNED DOWN TO LOWEST SETTING JUST TO KEEP OPEN ALLERGIES MORPHINE SULFATE: CONTINUOUS INFUSION--SEVERE ITCHING: ALLERGY PENTAZOCINE-NALOXONE: ALLERGY CHLORPROMAZINE: ALLERGY LORATADINE: ALLERGY PENICILLIN (FOR ALLERGIES USE ONLY): HIVES: ALLERGY CEPHALOSPORINS: ALLERGY SULFAMETHOXAZOLE-TMP DS: HIVES: ALLERGY BACTRIM: HIVES: ALLERGY SURGICAL HISTORY HYSTERECTOMY AGE 22 L4 -5 DISKECTOMY DIAPHRAGM PARALYZED- RIGHT LOWER LUNG R-BRADY 2013 HITAL HERNIA REPAIR LEFT ANKLE FX- FUSION INFUSAPORT REMOVED INFUSAPORT PLACED INFUSAPORT AND IMPLANTED PAIN PUMP RIGHT HIP REPLACEMENT FAMILY HISTORY FATHER: 80 YRS, DUE TO HEART ATTACK, STROKES, DIAGNOSED WITH HEART DISEASE, OTHER MOTHER: 59 YRS, DUE TO METASIS CANCER, DIAGNOSED WITH CANCER SON(S): ALIVE 2 BROTHER(S) , 2 SISTER(S) - HEALTHY. 2 SON(S) - HEALTHY. 1 SON DUE TO SUICIDE AT AGE 34MOM LUNG AND LIVER CANCERFATHER-ANEURYSM. SOCIAL HISTORY GENERAL: TOBACCO USE ARE YOU A:NONSMOKER LUNG CANCER SCREENING SMOKING STATUS:NON SMOKER ALCOHOL SCREENING POINTS: 0, INTERPRETATION: NEGATIVE. RECREATIONAL DRUG USE DENIES. CAFFEINE CAFFEINE USE?NO SEXUAL HX HAD SEX IN THE LAST 12 MONTHS (VAGINAL, ORAL, OR ANAL)?: YES, WITH: MEN ONLY, HAVE YOU EVER HAD AN STD?: NO. OCCUPATION: [employer] BUT BECAME DISABLED. DIET: REGULAR. EXERCISE: NO REGULAR EXERCISE. MARITAL STATUS: .. OTHERS AT HOME: OTHER NON-RELATIVE. PETS: NONE. SHINTO [id number] ROMAN CATHOLIC LANGUAGE MONGOLIAN. EDUCATION LEVEL OF EDUCATION:HIGH SCHOOL LEARNING BARRIERS / SPECIAL NEEDS CHANGE FROM LAST VISIT?NO BARRIERS TO LEARNING?NO HEARING IMPAIRED?NO VISION IMPAIRED?YES : GLASSES COGNITIVELY IMPAIRED?NO READINESS TO LEARN?YES LEARNING PREFERENCES?YES :DEMONSTRATION/VERBAL INSTRUCTION LEARNING CAPABILITIES PRESENT?YES EMOTIONAL BARRIERS?NO SPECIAL DEVICES?YES :WHEELCHAIR MOTORIZED RAILROAD REPAIRER NEEDED?NO PAIN CLINIC PFS, CLERGY, PUBLIC HEALTH REFERRALS PFS REFERRAL NEEDED?NO CLERGY REFERRAL NEEDED?NO PUBLIC HEALTH REFERRAL NEEDED?NO HAS THE PATIENT BEEN EDUCATED REGARDING HIS/HER PLAN OF CARE?YES PLAN OF CARE FOR THE PAIN CENTER REVIEWED WITH PT AND SHE VERBALIZED UNDERSTANDING. AD HAS THE PATIENT BEEN EDUCATED REGARDING PAIN, THE RISK FOR PAIN, THE IMPORTANCE OF EFFECTIVE PAIN MANAGEMENT, AND THE PAIN ASSESSMENT PROCESS?YES ADVANCE DIRECTIVES HEALTH CARE PROXY?YES EX- NAME OF HCP WILLIAM PAYNE CONTACT # FOR HCP [phone] DO YOU HAVE A COPY WITH YOU?NO DO YOU HAVE A DNR?NO LIVING WILL?YES DO YOU HAVE A COPY WITH YOU?NO POWER OF FISH GRADER?YES NAME OF POA? WILLIAM PAYNE PHONE # OF POA? SEE ABOVE DO YOU HAVE A COPY WITH YOU?NO HAVE YOU HAD A COPY OF ANY ADVANCED DIRECTIVE (LISTED ABOVE) ON A PREVIOUS MEDICAL RECORDS AT [facility]?YES TRAVEL OUTSIDE US: NONE. HOUSING: OWNS HOME. DOMESTIC VIOLENCE DO YOU FEEL SAFE IN YOUR ENVIRONMENT?YES HAS MOLST FORM. HOSPITALIZATION/MAJOR DIAGNOSTIC PROCEDURE RELATED FOR SURGERY ADMITTED DUE TO TROUBLE BREATHING 2012 ADMITTED DUE TO CHF ADMITTED OTHER TIMES WELL DUE TO MIGRAINE, SEIZURES, AND ETC ADMITTED DUE TO COPD, CHF, BLOOD INFECTION 04/2015 ADMITTED FOR PORT PLACEMENT 06/2015 FALL 08/2015 PNEOMINA, FLU, CHF, HYPERGYLCEMIA, DEHYDRATION 05/2016 REVIEW OF SYSTEMS REVIEWED BY: PROVIDER: JAIMEE TROTTER MD . CONSTITUTIONAL: ANY CHANGE IN YOUR MEDICAL CONDITION? NO . CHILLS NO . FEVER NO . INFECTION: DO YOU HAVE NEW INFECTIONS? NO . DO YOU HAVE HISTORY OF MRSA? NO . MUSCULOSKELETAL: ANY NEW PATTERNS OF PAIN OR NUMBNESS? NO . SYTEMIC LUPUS NO . GASTROENTEROLOGY: ANY NEW CHANGE IN BOWEL CONTROL? NO . BARRETTS ESOPHAGUS NO . CIRRHOSIS NO . HEPATITIS NO . LIVER FAILURE NO . ACID REFLUX YES . UNEXPLAINED WEIGHT LOSS NO . GENITOURINARY: ANY NEW CHANGE IN BLADDER CONTROL? NO . IS THERE A CHANCE YOU COULD BE ? NO . HEMATOLOGY/LYMPH: DO YOU TAKE ANY BLOOD THINNERS? (FOR EXAMPLE- COUMADIN, PLAVIX, AGGRENOX, PLATEL, PRADAXA, OR XARELTO) NO HAS HAD A HX OF DVT WAS XARELTO AND IT WAS D/C'D DUE TO BLEEDING, HAS A GREEN FIELD FILTER&NBSP;. WHEN WAS YOUR LAST DOSE? &NBSP;&NBSP; DATE: TIME: &NBSP;. LOW PLATELET COUNT &NBSP;&NBSP; NO&NBSP;. SICKLE CELL DISEASE &NBSP;&NBSP; NO&NBSP;. VON WILLIEBRANDS &NBSP;&NBSP; NO&NBSP;. FACTOR V LEIDEN &NBSP;&NBSP; NO&NBSP;. THALLASEMIA &NBSP;&NBSP; NO&NBSP;. ANEMIA &NBSP;&NBSP; ADMITS&NBSP;. EASY BRUISING &NBSP;&NBSP; YES&NBSP;. NEUROLOGY: HAVE YOU FALLEN IN THE PAST 6 MONTHS? NO . ANY NEW EXTREMITY NUMBNESS OR WEAKNESS? NO . HEAD INJURY NO . DEMENTIA NO . CEREBRAL PALSY NO . MULTIPLE SCLEROSIS NO . DIZZINESS NO . HEADACHE ADMITS, HX OF MIGRAINES . STROKES NO . VERTIGO NO . CARDIOLOGY: DO YOU HAVE A PACEMAKER OR DEFIBRILLATOR? NO . ANGINA NO . HEART ATTACK NO . HEART SURGERY NO . CONGESTIVE HEART FAILURE/FLUID OVERLOAD YES . CHEST PAIN , NO . HIGH BLOOD PRESSURE ON MEDICATION(S) . IRREGULAR HEART BEAT NO . RESPIRATORY: HAVE YOU BEEN SICK IN THE PAST WEEK? NO . FEVER NO . FLU LIKE SYMPTOMS? NO . CPAP YES . BYPAP NO . ASTHMA YES . EMPHYSEMA NO . CHRONIC LUNG DISEASES NO . SHORTNESS OF BREATH ON EXERTION NO . COUGH COUNGESTIVE COUGH X 6 MONTHS . SNORING NO . INTEGUMENTARY: DO YOU HAVE ANY RASHES OR OPEN SORES? NO . ALLERGIC/IMMUNO: ARE YOU ALLERGIC TO SHELLFISH OR IV DYE? NO . ANY NEW ALLERGIES? NO . PSYCHIATRIC: DO YOU HAVE THOUGHTS OF HURTING YOURSELF OR SOMEONE ELSE? NO . ARE YOU ABUSED, NEGLECTED, OR IN AN UNSAFE ENVIRONMENT? NO . ENDOCRINOLOGY: ARE YOU DIABETIC? YES, ON INSULIN . THYROID DISORDER NO . OTHER: DO YOU NEED ANY PRESCRIPTIONS? NO . IF YES, PLEASE LIST: ____ . ANY NEW PROBLEMS WITH YOUR MEDICATIONS? NO . WHEN DID YOU LAST EAT? ____ . WHEN DID YOU LAST DRINK? ____ . WHAT DID YOU LAST DRINK? ____ . NAME OF PERSON DRIVING YOU HOME? ____ . DO YOU HAVE ANY OTHER QUESTIONS OR CONCERNS NO . VITAL SIGNS WT 250 LBS, HT 5'7" VERBAL, BMI 39.15 INDEX, BP 136/63 MM HG, HR 77 /MIN, RR 18 /MIN, TEMP 98.2 F, OXYGEN SAT % 96%, NA INITIALS AW 1507, REVIEWED BY: KEISHA. EXAMINATION : PATIENT IS ALERT O X 3 AND COOPERATIVE. TENDERNESS IN THE CERVICAL AREA AND PARASPINAL MUSCLE GROUP. BANDS OF TISSUE, RESTRICTION OF MOVEMENT AND PRESENCE OF TRIGGER POINTS IN THERE CERVICAL AND SHOULDER AREA. X-RAY DONE ON 10/11/16 SHOWS ARTHRITIS. ASSESSMENTS MYALGIA - M79.1 (PRIMARY) SPONDYLOSIS WITHOUT MYELOPATHY OR RADICULOPATHY, CERVICAL REGION - M47.812 TREATMENT MYALGIA NOTES: WE DISCUSSED SEVERAL ISSUES WITH MRS. PAYNE'S PAIN MANAGEMENT CASE. AT THIS TIME THE PATIENT WILL CONTINUE WITH THE SAME MEDICATION REGIME BEFORE. WE DISCUSSED SEVERAL INTERVENTIONS AT MAY AID THE PATIENT IN PAIN RELIEF. WE DISCUSSED MOVING FORWARD WITH THE LEAST INVASIVE FIRST. DUE TO THE SPASTICITY AND TIGHTNESS IN THE MUSCLE I WOULD LIKE TO PROCEED WITH A TRIGGER POINT INJECTION. WE DISCUSSED THE RISKS, BENENFITS, AND ALTNERATIVES OF THE INJECTION AND THE PATIENT WOULD LIKE TO PROCEED AT THI TIME. INSTRUCTIONS WERE GIVEN, QUESTIONS WERE ANSWERED, PATIENT REPORTS UNDERSTANDING AND AGREES WITH THE PLAN. I, AMBROCIO BRUNO, DOCUMENTED THE ABOVE INFORMATION ACTING A SCRIBE FOR DR. TROTTER. I HAVE REVIEWED THE ABOVE DOCUMENT, WRITTEN BY AMBROCIO SCOTT AND I VERIFY THAT IT IS ACCURATE. DEAR DR. PERKINS:THANK YOU FOR YOUR KIND REFERRAL OF MRS. PAYNE. YOU WANT TO DISCUSS HER CASE WITH ME PLEASE CALL ME AT THE PAIN CENTER AT [phone]. SINCERELY,JAIMEE TROTTER, [facility]. OTHERS NOTES: TRIGGER POINT INJECTION MATERIAL WAS PRINTED, REVIEWED AND GIVEN TO PT. PROCEDURE CODES FA211 ESTABILISHED PATIENT [facility]AC[facility] CHARGE G8427 DOC MEDS VERIFIED W/PT OR RE G8155 PAIN ASSESS POS TOOL F/U PLAN DOC DISPOSITION & COMMUNICATION FOLLOW UP TPI AFTER APPROVAL ELECTRONICALLY SIGNED BY JAIMEE TROTTER MD ON 11/29/2016 AT 06:31 PM EDT DISCLAIMER : THIS IS A VISIT SUMMARY EXTRACTED FROM THE [employer] CHART. IT IS NOT A COPY OF THE [employer] PROGRESS NOTE. MTDD
== END ==
LOC: M PAIN 15:00
PROVIDERS: ATTEND Anesthesiology
DX: G89.29 Other chronic pain (principal); M47.812 Spondylosis without myelopathy or radiculopathy, cervical region; M79.1 Myalgia; I12.9 Hypertensive chronic kidney disease with stage 1 through stage 4 chronic kidney disease, or unspecified chronic kidney disease; N18.9 Chronic kidney disease, unspecified; K21.9 Gastro-esophageal reflux disease without esophagitis; G43.909 Migraine, unspecified, not intractable, without status migrainosus; R56.9 Unspecified convulsions; E11.9 Type 2 diabetes mellitus without complications; J45.909 Unspecified asthma, uncomplicated; M19.90 Unspecified osteoarthritis, unspecified site; Z88.5 Allergy status to narcotic agent; Z88.0 Allergy status to penicillin; Z88.1 Allergy status to other antibiotic agents; Z88.8 Allergy status to other drugs, medicaments and biological substances; Z79.4 Long term (current) use of insulin; Z79.51 Long term (current) use of inhaled steroids; Z79.82 Long term (current) use of aspirin; Z79.899 Other long term (current) drug therapy

== ENCOUNTER → 2016-11-15 | Outpatient (REF) | payer MEDICARE, MEDICAID ==
[2016-11-15 22:22] LABS: ALBUMIN 3.4 GM/DL (3.2-5.2); ALBUMIN/GLOBULIN RATIO 0.94 (1.00-1.93); BILIRUBIN,TOTAL 0.4 MG/DL (0.2-1.0); CALCIUM LEVEL 8.8 MG/DL (8.8-10.2); CREATININE FOR GFR 2.41 MG/DL (0.55-1.02); POTASSIUM SERUM 3.2 MEQ/L (3.5-5.1)
== END ==
LOC: M LABDRWAD 21:56
PROVIDERS: ATTEND Nurse Practitioner Family
DX: I13.0 Hypertensive heart and chronic kidney disease with heart failure and stage 1 through stage 4 chronic kidney disease, or unspecified chronic kidney disease (principal); N18.4 Chronic kidney disease, stage 4 (severe); I50.9 Heart failure, unspecified

== ENCOUNTER 2016-11-17 16:58 | Inpatient (IN) | payer MEDICARE, MEDICAID ==
[~2016-11-17] VITALS: Ht 170.2 cm; Wt 116.3 kg
[~2016-11-17 16:58] MED LIST changes: -ALLO15TA GT; -CIPR-249 PO; -CIPR500T3 PO; -CLEO300C2 PO; -DULO30CA PO; -KEPP250T5 PO; -LEVE250T5 PO; -POTA50TAB PO; -SPIR25TA2 PO; -TOUJ1.2I SC; -ZYLO300T4 PO
[2016-11-17] MEDS ORDERED: CRAN500C2 PO (17:11)
[2016-11-17] MEDS ORDERED: ALLO15TA GT (17:11)
[2016-11-17] MEDS ORDERED: POTA50TAB PO (20:18)
[2016-11-17] MEDS ORDERED: SPIR25TA2 PO (20:18)
[2016-11-17] MEDS ORDERED: MUCI600T37 PO (20:18)
[2016-11-17] MEDS ORDERED: TORS100T PO (20:18)
[2016-11-17] MEDS ORDERED: CLEO300C2 PO (20:18)
[2016-11-17] MEDS ORDERED: ZYLO300T4 PO (20:18)
[2016-11-17] MEDS ORDERED: POTA10CA PO (20:18)
[2016-11-17 20:52] LABS: VENOUS BASE EXCESS 9.6 (-2.0-2.0); VENOUS O2 SATURATION 88.7 % (60.0-80.0); VENOUS PARTIAL PRESSURE CO2 55.3 mmHg (38.0-50.0); VENOUS PARTIAL PRESSURE O2 61.8 mmHg (30.0-50.0); VENOUS STANDARD HCO3 33.2 MEQ/L; VENOUS TOTAL CO2 37.1 MEQ/L (24.0-28.0)
[2016-11-17 21:03] LABS: ADD MANUAL DIFFER YES; MEAN CORPUSCULAR HEMOGLOBIN 19.8 pg (27.0-33.0); MEAN CORPUSCULAR HGB CONC 28.7 g/dl (32.0-36.5); PLATELET COUNT, AUTOMATED 297 k/mm3 (150-450); RED CELL DISTRIBUTION WIDTH 18.3 % (11.5-14.5)
[2016-11-17 21:18] LABS: ALBUMIN 3.4 GM/DL (3.2-5.2); ALBUMIN/GLOBULIN RATIO 0.94 (1.00-1.93); ALKALINE PHOSPHATASE 121 U/L (45-117); ALT/SGPT 27 U/L (12-78); ANION GAP 11 MEQ/L (8-16); AST/SGOT 22 U/L (15-37); BILIRUBIN,DIRECT 0.2 MG/DL (0.0-0.2); BILIRUBIN,TOTAL 0.4 MG/DL (0.2-1.0); BLOOD UREA NITROGEN 45 MG/DL (7-18); CALCIUM LEVEL 9.4 MG/DL (8.8-10.2); CARBON DIOXIDE LEVEL 33 MEQ/L (21-32); CHLORIDE LEVEL 88 MEQ/L (98-107); CREATININE FOR GFR 2.39 MG/DL (0.55-1.02); GLOMERULAR FILTRATION RATE 21.2 (>39); GLUCOSE, FASTING 328 MG/DL (83-110); POTASSIUM SERUM 3.4 MEQ/L (3.5-5.1); SODIUM LEVEL 132 MEQ/L (136-145); T UPTAKE 37 % (30-39)
[2016-11-17 21:36] LABS: ANISOCYTOSIS 2+; EOSINOPHILS 1 % (0-5); HYPOCHROMASIA 2+; MICROCYTOSIS 3+; POLYCHROMASIA 2+
[2016-11-17 21:37] LABS: TEAR DROP CELLS 1+
[2016-11-17] MEDS ORDERED: NALOXONE INJ 2 MG/2 ML SYRINGE (J2310) IV STA (22:33)
--- NOTE | 2016-11-17 22:50 | REPUSA ---
CLINICAL HISTORY: ALOC TECHNIQUE: Multiple axial CT images were obtained through the brain without IV contrast material. COMMENTS: There is normal configuration of sella turcica. There are no intra or extra-axial collections. There is no mass effect or midline shift. There is no evidence of hematoma formation. No hydrocephalus is p resent. The ventricles are symmetrical. No abnormal calcifications are present. There is diffuse age-appropriate cerebellar and cerebral atrophy with proportionally dilated ventricl es and cortical sulci. There are bilateral periventricular and subcortical white matter hypolucencies compatible with mild c hronic microvascular disease. Otherwise, no significant focal abnormalities are seen either in the posterior fossa or supratentoria l compartment. IMPRESSION: 1. Age-appropriate cerebellar and cerebral atrophy. 2. Mild chronic microvascular disease. 3. No evidence of acute intracranial pathology. Thank you for your kind referral of this patient.
[2016-11-17] MEDS ORDERED: NS 500 ML IV ONE (23:15)
[2016-11-17] MEDS ORDERED: HumuLIN R (REGULAR) INSULIN (NovoLIN R) **100U/ML** PER UNIT IV ONE (23:15)
[2016-11-18] MEDS ORDERED: ONDANSETRON 4MG/2ML VIAL (J2405) As Ordered ONE (00:06)
[2016-11-18] MEDS ORDERED: ONDANSETRON 4MG/2ML VIAL (J2405) IV ONE (00:15)
[2016-11-18] MEDS ORDERED: NYSTATIN 100,000 UNITS/GM TOPICAL PWD 15 GM TOP PRN (01:00)
[2016-11-18] MEDS ORDERED: IPRATROPIUM 0.5MG/ALBUTEROL 2.5MG INH SOL UD 3ML (DUONEB)(J7620) INH PRN (01:00)
[2016-11-18 02:50] VITALS: BP 152/80
[2016-11-18 06:00] VITALS: BP 164/74
[2016-11-18] MEDS: HEPARIN SOD (PORCINE) 5000 UNITS/ML VIAL SQ SCH ×3 (06:00→22:05)
[2016-11-18 06:33] LABS: REASON FOR REVIEW OTHER
[2016-11-18 06:35] LABS: BASO # 0.1 K/mm3 (0.0-0.2); BASO % 1.2 % (0.0-1.0); EOS # 0.2 K/mm3 (0.0-0.50); EOS % 2.3 % (0.0-3.0); LARGE UNSTAINED CELL # 0.3 K/mm3 (0.0-0.4); LARGE UNSTAINED CELL % 3.2 % (0.0-4.0); LYMPH # 2.5 K/mm3 (1.5-4.5); MEAN CORPUSCULAR HEMOGLOBIN 19.7 pg (27.0-33.0); MEAN CORPUSCULAR HGB CONC 28.3 g/dl (32.0-36.5); MEAN CORPUSCULAR VOLUME 69.6 fl (80.0-96.0); MONO # 0.7 K/mm3 (0.0-0.8); MONO % 8.1 % (0.0-5.0); NEUTROPHILS # 5.2 K/mm3 (1.8-7.7); NEUTROPHILS % 59.2 % (36.0-66.0); PLATELET COUNT, AUTOMATED 293 k/mm3 (150-450); RED CELL DISTRIBUTION WIDTH 18.2 % (11.5-14.5); WHITE BLOOD COUNT 8.7 K/mm3 (4.0-10.0)
[2016-11-18 06:39] LABS: ADD MORPHOLOGY? YES
[2016-11-18 06:48] LABS: ERYTHROCYTE SEDIMENTATION RATE 71 mm/hr (0-30)
[2016-11-18 06:55] LABS: ALBUMIN 3.4 GM/DL (3.2-5.2); ALBUMIN/GLOBULIN RATIO 0.94 (1.00-1.93); BILIRUBIN,TOTAL 0.4 MG/DL (0.2-1.0); CALCIUM LEVEL 9.1 MG/DL (8.8-10.2); CREATININE FOR GFR 2.34 MG/DL (0.55-1.02); GLOMERULAR FILTRATION RATE 21.8 (>39); POTASSIUM SERUM 3.3 MEQ/L (3.5-5.1)
[2016-11-18 07:15] LABS: ANISOCYTOSIS 2+; HYPOCHROMASIA 1+
[2016-11-18 07:16] LABS: STOMATOCYTES 1+
[2016-11-18] MEDS: HUMULIN R U-500 KWIKPEN 500UNITS/ML 3ML SYRINGE (J1815 PER 5UNITS) SC SCH ×3 (07:30→22:06)
[2016-11-18] MEDS ORDERED: TORSEMIDE 100 MG TAB PO SCH (09:00)
[2016-11-18] MEDS ORDERED: ALLOPURINOL 300 MG TAB PO SCH (09:00)
[2016-11-18] MEDS ORDERED: ENOXAPARIN 30 MG/0.3 ML SYR (J1650) SC SCH (09:00)
[2016-11-18] MEDS ORDERED: levETIRAcetam 250MG TABLET (KEPPRA) PO SCH ×2 (09:00)
[2016-11-18] MEDS: BISOPROLOL FUMARATE 5 MG TAB PO SCH (09:00)
[2016-11-18] MEDS ORDERED: SPIRONOLACTONE 25 MG TAB PO SCH (09:00)
[2016-11-18] MEDS: DOCUSATE SODIUM 100 MG CAP PO SCH ×2 (10:09→22:04)
[2016-11-18] MEDS: LACTULOSE 20 GM/30 ML SYRUP UD PO SCH ×2 (10:09→22:04)
[2016-11-18] MEDS: OMEPRAZOLE 20 MG CAP PO SCH ×2 (10:10→22:04)
[2016-11-18] MEDS: SENOKOT S TAB PO SCH ×2 (10:10→22:03)
[2016-11-18] MEDS: METOCLOPRAMIDE 10 MG TAB PO SCH ×3 (10:10→22:04)
[2016-11-18] MEDS: K-PHOS ORIGINAL (POT.ACID PHOSPHATE) 500MG TAB PO SCH ×2 (10:11→22:02)
[2016-11-18] MEDS: levETIRAcetam 250MG TABLET (KEPPRA) PO SCH ×2 (10:11→22:03)
[2016-11-18] MEDS: POTASSIUM CHLORIDE 10 MEQ SR TABLET PO SCH (10:11)
[2016-11-18] MEDS: COLCHICINE 0.6 MG TAB PO SCH (10:11)
[2016-11-18] MEDS: PREGABALIN 100 MG CAP (LYRICA) PO SCH ×3 (10:11→22:03)
[2016-11-18] MEDS: ASPIRIN 81 MG ENTERIC TAB PO SCH (10:12)
[2016-11-18] MEDS: SUCRALFATE 1 GM TAB PO SCH ×2 (10:12→22:03)
[2016-11-18] MEDS: FLUoxetine 20 MG CAP PO SCH (12:00)
--- NOTE | 2016-11-18 13:16 | REP ---
AP PORTABLE CHEST: 11/17/2016 at 07:43 PM. Comparison: 10/15/2016, 09/13/2016, CT chest 08/05/2016. Clinical history: Dyspnea. Findings: There is an indwelling right jugular port catheter with tip in the SVC. Surgical clips about the left hilar region. Lungs somewhat hypoinflated compared to the previous study. Small effusions difficult to exclude. Underlying fibrosis and COPD with more crowding of markings due to low level of inflation. Slight elevation of the right diaphragm. Basilar atelectatic changes or early infiltrates noted. I do not see presley edema. The aorta is tortuous, calcified at the arch, but with much change allowing for differences in technique. Airway midline. Impression: 1. Hypoinflated chest with underlying fibrosis, COPD and superimposed basilar patchy atelectasis or infiltrates. Small effusions difficult to exclude. 2. No presley edema or gross redistribution of the pulmonary vasculature. Cardiomediastinal silhouette unchanged and somewhat prominent. Signed by Keanu Faye MD 11/18/2016 08:58 A
--- NOTE | 2016-11-18 13:19 | HPE ---
DATE OF ADMISSION: 11/18/2016 The patient is well known to the hospitalist service from previous admissions. The last admission was in early October of this year and the patient was discharged on the of last month with a diagnosis of acute on chronic renal failure thought to be secondary to her medications. The patient is a 71-year-old female with past medical history of chronic respiratory failure and multiple other conditions. The patient is quite ill at baseline. The patient now was brought in by her with complaints that over the last three days she has been extremely lethargic and weak. The patient states she has had also a cough over the last few days, but without any sputum production. She denies any fevers or chills. Denies any worse weakness in any particular extremity compared to the other. The patient states that she has been shaky and unable to stand on her feet, unable to maintain her weight secondary to extreme lethargy. The patient also has been imbalanced over the last few days. No history of recent sick contacts. No symptoms which are more specific towards any one organ. The patient denies any recent tick bites or any insect bites. The patient apparently in the emergency room was given Narcan times one to assess whether pain medication could be causing her weakness, but there was no change in response and no change in symptoms. The patient denies taking excessive medications or any excessive pain medication specifically. She has been taking her medications appropriately. The patient has been using a betamethasone cream on a regular basis. PAST MEDICAL HISTORY: Significant for: Chronic obstructive pulmonary disease (COPD) with chronic respiratory failure on home oxygen therapy as well as CPAP. The patient also has obstructive sleep apnea (MATT). Insulin dependent diabetes mellitus. Asthma. Morbid obesity. Paralyzed hemidiaphragm. Gout. Chronic migraines. Seizure disorder. Hypertension. Gastroesophageal reflux. Depression. Chronic kidney disease with a baseline creatinine of approximately 1.7. Previous deep vein thrombosis (DVT) status post an inferior vena cava filter. CURRENT MEDICATIONS: Include: - acetaminophen 650 every 8 hours as needed. - betamethasone cream every evening - clindamycin 300 mg daily - Mucinex as needed twice daily - NovoLog insulin 16 units before meals and a sliding scale as well - Milk of Magnesia 30 mL daily as needed for constipation - Zofran 4 mg four times daily - scopolamine patch 1.5 mg every 72 hours as needed for nausea - The patient is also on Fioricet/codeine tablet three times daily as needed for headache - INCRUSE Ellipta 62.5 inhalation daily - DuoNebs four times daily as needed for shortness of breath - allopurinol 300 mg daily - aspirin 81 mg daily - bisoprolol 2.5 mg daily - colchicine 0.6 mg daily - Colace 100 mg twice daily - vitamin D 50,000 units every month - fluoxetine 20 mg daily - lactulose 30 mL twice daily - Keppra 500 mg four times daily - Reglan 10 mg three times daily - nystatin 100,000 units to rash as needed - omeprazole 20 mg twice daily - potassium chloride 20 mEq daily - potassium phosphate 500 mg twice daily - Lyrica 100 mg three times daily - senna 8.6 mg two tablets twice daily - spironolactone 25 mg twice daily - sucralfate 1 gram twice daily - torsemide 50 mg twice daily ALLERGIES: The patient has multiple allergies includin. CEPHALOSPORINS. 2. CHLORPROMAZINE. 3. FLUTICASONE. 4. IODINE. 5. LATEX. 6. LORATADINE. 7. METHADONE. 8. PENICILLIN. 9. PENTAZOCINE. 10. SALMETEROL. 11. SULFA ANTIBIOTICS. SOCIAL HISTORY: The patient denies any tobacco, ethanol or drug use. PREVIOUS SURGERIES: Include: Lung surgery. Inferior vena cava filter placement. Right hip surgery. Right knee surgery. Hysterectomy. Surgery on the spine. Left ankle surgery. Tonsillectomy. FAMILY HISTORY: Noncontributory for any coronary artery disease, diabetes. REVIEW OF SYSTEMS: Other than the above mentioned, denies any other constitutional symptoms or any cardiopulmonary, digestive, endocrine, hematological, psychiatric, neurological, musculoskeletal or dermatological disease. PHYSICAL EXAMINATION: The patient's pulse is 77, blood pressure 139/54, breathing at 18, afebrile. GENERAL APPEARANCE: Morbidly obese 71-year-old white female now extremely lethargic and erythematous on the face, laying in bed. EYE EXAM: Pupils equally round and reactive to light without icterus. OROPHARYNGEAL EXAM: No pharyngeal erythema, dentition in poor condition. NECK EXAM: No thyromegaly, trachea midline, neck is supple. LYMPHATICS EXAM: No cervical or axillary lymphadenopathy. CARDIAC EXAM: Regular rate and rhythm, no obvious murmurs or gallops. No jugular venous distention (JVD). No edema. RESPIRATORY EXAM: Clear to auscultation bilaterally with good effort. ABDOMINAL EXAM: Nondistended, nontender. No masses palpated. PERIPHERAL EXAM: No clubbing, cyanosis, or edema noted. The patient does have a leg brace over the right lower extremity. On labs, the patient's white cell count is 10,000, hematocrit of 28, platelet count of 297 with an MCV of 69, RDW of 18. Chemistry shows a sodium of 132, potassium 3.4, bicarb 33, BUN/creatinine of 45/2.39, and glucose of 328. Liver function testing appears to be appropriate. TSH is 1.5. Free T4 is 3.7. Ammonia is 20, lactic acid is 1.9. The patient had a venous blood gas which shows a pH of 7.424, pCO2 of 55 with a bicarb of 36. Urinalysis is negative for infection. Chest x-ray is personally reviewed as well as not showing any obvious sign of any effusion or infiltrate. It does show an elevated right hemidiaphragm which appears to be old. A CT scan of the brain that was done shows age appropriate cerebellar and cerebral atrophy and no acute intracranial pathology. ASSESSMENT: This is a 71-year-old female who presented with severe lethargy similar to what she has had before. The patient's creatinine is still elevated and this may be secondary as well to overdiuresis, however certainly a viral illness is in the differential along with other inflammatory disorders versus endocrine disorders. Of note, the patient may have underlying infection with a tick borne illness including Lyme, Anaplasma or Babesia or ehrlichiosis, although she does not have the thrombocytopenia generally associated with this. The patient also has a microcytic anemia and was noted to be iron deficient previously. Certainly the patient's iron level could be causing her to be extremely fatigued. Additionally, the patient is on chronic betamethasone, which she takes by cream, but possibly has been taking it long enough to have caused some degree of adrenal insufficiency. The patient's electrolytes do not reflect this, but she is on multiple medications, which are manipulating her electrolytes. I do agree at this time with admission to the observation unit for further analysis, the patient cannot be cared for at home in this condition. 1. Severe lethargy and altered mental status: Will admit the patient for observation on the medical/surgical unit, in the a.m. will check an ESR and VANCE antibodies, will also check a Babesia peripheral blood smear, Lyme serology, Anaplasma and ehrlichiosis evaluation, will check blood cultures times two and influenza swab, sputum culture will also be checked. Physical and occupational therapy will be obtained as well and the patient will be started on low dose of IV fluids. 2. Microcytic anemia: The patient has on last check a ferritin of 22 and likely should be started on iron supplementation. I do not see a previously endoscopy and colonoscopy done, certainly should be considered in light of the current results. 3. Acute on chronic renal failure: The patient's baseline creatinine is 1.7, currently she is at 2.4, will back off on some of her diuretics and other medications, which are affecting her kidneys. The patient's last echocardiogram does not reflect severe congestive heart failure (CHF), and if she does have CHF it is likely diastolic. Will check a repeat chemistry in the a.m., monitor creatinine and BUN. 4. Chronic respiratory failure: Continue CPAP therapy, the patient's CO2 is not high enough to be the cause of her extreme lethargy. 5. Gout: Adjust the patient's allopurinol dose to her current creatinine at 100 mg once daily, consider discontinue of colchicine in light of her renal failure. 6. Seizure disorder: The patient should have a Keppra dose adjustment in light of her renal failure as well. Currently taking 2 grams daily, which may be excessive in light of her kidney worsening. The rest of the patient's medical conditions are currently stable at this time and will continue her usual medications. For deep vein thrombosis (DVT) prophylaxis, the patient will be on Lovenox once daily. Diet will be a low sodium diet.
[2016-11-18 14:00] VITALS: BP 115/56
[2016-11-18 14:03] LABS: CALCIUM LEVEL 8.3 MG/DL (8.8-10.2); CREATININE FOR GFR 2.55 MG/DL (0.55-1.02); GLOMERULAR FILTRATION RATE 19.7 (>39); MAGNESIUM LEVEL 2.6 MG/DL (1.8-2.4); POTASSIUM SERUM 3.9 MEQ/L (3.5-5.1)
[2016-11-18] MEDS ORDERED: GLUCAGON FOR INJ 1 MG VIAL (J1610) SC PRN (14:30)
[2016-11-18] MEDS ORDERED: GLUCOSE 4 GM CHEW TABLET PO PRN (14:30)
[2016-11-18] MEDS ORDERED: DEXTROSE 50% 50 ML SYRINGE IV PRN (14:30)
[2016-11-18] MEDS ORDERED: SODIUM CHLORIDE 0.9% INJ 10 ML SYR IV PRN (14:30)
[2016-11-18 17:10] VITALS: BP 119/56
[2016-11-18] MEDS: HumaLOG INSULIN (NovoLOG) PER UNIT SC SCH ×2 (18:30→21:00)
[2016-11-18] MEDS ORDERED: HumaLOG INSULIN (NovoLOG) PER UNIT SC ONE (18:45)
--- NOTE | 2016-11-18 19:23 | IPN ---
DATE: Patient was admitted overnight with lethargy and fatigue. Questionable altered mental status but during the course of today informed by nursing on the floor, Michele, at 2:20, that patient had a critical number of fingerstick 508. Upon further questioning it was discovered that patient's U500 50 units was held this morning and not given until around 10:00 to 10:30 because patient was delayed in ordering preference and physician was not notified of this medication being on hold. Basic metabolic panel was reviewed. Patient has no anion gap. Patient continued to be mildly tired, denies any shortness of breath, chest pain, pressure or discomfort. Tolerating oral. Vital signs: Temperature 97.6, pulse 80, respiration 21, blood pressure 115/56, pulse ox 100% on 2 liter nasal cannula. LABORATORY DATA: WBC 8.7, H H 8.4/29.7, platelets 293. Chemistry: Sodium 130, potassium 3.9, chloride 88, bicarbonate 31, BUN 41, creatinine 2.55, glucose 508. AM Cortisol 13. Ammonia negative. PHYSICAL EXAMINATION: GENERAL: Patient obese, alert and oriented times three in no acute distress. HEENT: Normocephalic, atraumatic. PULMONARY: Bilaterally clear to auscultation. CARDIAC: Regular rate and rhythm. Normal S1, S2. No jugular venous distention. ABDOMEN: Soft, non-tender, positive bowel sounds. EXTREMITIES: No clubbing, cyanosis or edema. ASSESSMENT AND PLAN: This is a 71-year-old female patient with underlying medical history of chronic obstructive pulmonary disease with chronic respiratory failure on oxygen as well as continuous positive airway pressure (CPAP) at home, patient also has obstructive sleep apnea on continuous positive airway pressure (CPAP) at home, insulin dependent diabetes; poorly controlled on U500, morbid obesity, paralyzed hemidiaphragm, gout, chronic migraine, seizure disorder, hypertension, gastroesophageal reflux disease, depression, chronic kidney disease; baseline creatinine 1.7 to 2, history of deep vein thrombosis with IVC filter presented with severe lethargy similar to what patient had before. Blood work shows increasing creatinine. PROBLEM: 1. Severe lethargy with questionable altered mental status. Possible etiology including dehydration, Babesia, Lyme, Anaplasma and ehrlichiosis. Serology has been sent. Patient's diuretics has been on hold. PT/OT. 2. Hyperglycemia. Patient poorly controlled diuretic. Unfortunately patient's tray was delayed subsequently insulin was delayed without notifying the attending until 2:20 in the afternoon. Case discussed with the pharmacy staff. Currently U500 is switched to 50 units standing at every 8 hours as well as meal time coverage. We will follow fingerstick every 2 hours to monitor for glucose. Additional insulin will be given. Nursing staff instructed to not hold insulin unless informing physician. Further nursing education provided and nursing lamp shades supervisor has been informed of the incident. We will continue to monitor patient closely. Patient is upgraded to step down unit for closer monitoring and frequent fingersticks. 3. Microcytic anemia. We will check H H. Peripheral smear has been sent showing microcytic hyperchromic anemia consistent with iron deficiency. Patient will need further work up. Patient will likely need colonoscopy and EGD. Patient has not done so as outpatient. Patient currently is hemodynamically stable. 4. Acute on chronic renal failure. Baseline creatinine 1.7 to 2. Currently 2.4 to 2.5. Diuretic has been on hold. Strict is and outs and daily weight. Follow up urine studies. Patient's last echo does not reflect congestive heart failure. We will continue to monitor closely. 5. Chronic hypoxic respiratory failure. Continue Oxygen supplementation. 6. Obstructive sleep apnea. Continue continuous positive airway pressure (CPAP) at night. 7. Gout. Patient's home medication has been reduced. Continue allopurinol at reduced dose and colchicine. 8. Seizure disorder. Keppra dose has been reduced given patient with increased lethargy. 9. Deep vein thrombosis prophylaxis. Patient has an IVC filter. Patient was placed on heparin subcutaneously. 10. Morbid obesity complicated care. 11. Asthma. Continue to monitor. Patient currently not having any wheeze. 12. Hypertension. Monitor blood pressure. Continue Zebeta and aspirin. 13. Depression. Continue current medication. DISPOSITION: Pending clinical improvement. PT/OT, Follow up fingersticks. CRITICAL CARE TIME: 35 minutes
[2016-11-18 20:00] VITALS: BP 133/63
[2016-11-18] MEDS ORDERED: HumaLOG INSULIN (NovoLOG) PER UNIT SC STA (21:59)
[2016-11-19] VITALS (9 sets, daily range): BP systolic 115–133; BP diastolic 28–61
[2016-11-19] MEDS: HumaLOG INSULIN (NovoLOG) PER UNIT SC SCH ×5 (00:05→21:04)
[2016-11-19] MEDS ORDERED: HumuLIN R (REGULAR) INSULIN (NovoLIN R) **100U/ML** PER UNIT SC STA (02:44)
[2016-11-19] MEDS: HEPARIN SOD (PORCINE) 5000 UNITS/ML VIAL SQ SCH ×3 (05:54→21:06)
[2016-11-19] MEDS: HUMULIN R U-500 KWIKPEN 500UNITS/ML 3ML SYRINGE (J1815 PER 5UNITS) SC SCH ×3 (05:55→21:05)
[2016-11-19 06:05] LABS: MEAN CORPUSCULAR HEMOGLOBIN 19.8 pg (27.0-33.0); MEAN CORPUSCULAR HGB CONC 28.6 g/dl (32.0-36.5); MEAN CORPUSCULAR VOLUME 69.3 fl (80.0-96.0); RED CELL DISTRIBUTION WIDTH 17.8 % (11.5-14.5); RETICULOCYTE % 2.9 % (0.5-1.5); WHITE BLOOD COUNT 6.2 K/mm3 (4.0-10.0)
[2016-11-19 06:30] LABS: ALBUMIN 3.2 GM/DL (3.2-5.2); ALBUMIN/GLOBULIN RATIO 0.89 (1.00-1.93); BILIRUBIN,TOTAL 0.4 MG/DL (0.2-1.0); CALCIUM LEVEL 8.8 MG/DL (8.8-10.2); CREATININE FOR GFR 2.12 MG/DL (0.55-1.02); GLOMERULAR FILTRATION RATE 24.4 (>39); MAGNESIUM LEVEL 2.7 MG/DL (1.8-2.4); PERCENT SATURATION 4.4 % (13.2-45.0); POTASSIUM SERUM 3.3 MEQ/L (3.5-5.1); TOTAL PROTEIN 6.8 GM/DL (6.4-8.2)
[2016-11-19] MEDS ORDERED: LevoFLOXacin IV 250 MG in APPROPRIATE DILUENT 1 EA IV SCH (07:30)
[2016-11-19] MEDS ORDERED: POTASSIUM CHLORIDE 10 MEQ SR TABLET PO ONE (08:00)
[2016-11-19] MEDS ORDERED: ALLOPURINOL 100 MG TAB PO SCH (08:28)
[2016-11-19] MEDS: ASPIRIN 81 MG ENTERIC TAB PO SCH (08:37)
[2016-11-19] MEDS: METOCLOPRAMIDE 10 MG TAB PO SCH ×3 (08:37→21:04)
[2016-11-19] MEDS: LACTULOSE 20 GM/30 ML SYRUP UD PO SCH ×2 (08:37→21:03)
[2016-11-19] MEDS: PREGABALIN 100 MG CAP (LYRICA) PO SCH ×3 (08:37→21:03)
[2016-11-19] MEDS: OMEPRAZOLE 20 MG CAP PO SCH ×2 (08:37→21:03)
[2016-11-19] MEDS: SUCRALFATE 1 GM TAB PO SCH ×2 (08:38→21:02)
[2016-11-19] MEDS: SENOKOT S TAB PO SCH ×2 (08:38→21:04)
[2016-11-19] MEDS: levETIRAcetam 250MG TABLET (KEPPRA) PO SCH ×2 (08:38→21:03)
[2016-11-19] MEDS: SPIRONOLACTONE 25 MG TAB PO SCH ×2 (08:38→17:05)
[2016-11-19] MEDS: DOCUSATE SODIUM 100 MG CAP PO SCH ×2 (08:38→21:03)
[2016-11-19] MEDS: ALLOPURINOL 100 MG TAB PO SCH (08:38)
[2016-11-19] MEDS: K-PHOS ORIGINAL (POT.ACID PHOSPHATE) 500MG TAB PO SCH ×2 (08:38→21:03)
[2016-11-19] MEDS: COLCHICINE 0.6 MG TAB PO SCH (08:38)
[2016-11-19] MEDS: BISOPROLOL FUMARATE 5 MG TAB PO SCH (08:40)
--- NOTE | 2016-11-19 08:42 | ECGEPIP ---
Stationary ECG Study [facility] - ED Test Date: 2016-11-17 Pat Name: SHIVANI PAYNE Department: Room: [place] [address] Gender: F It Security Specialist: janusz : 1945 Requested By: TL RAMIREZ Order Number: [id number] Reading MD: Akiko Meadows Measurements Intervals [place] Rate: 79 P: 104 [place]: 220 QRS: 17 QRSD: 106 T: 39 QT: 421 QTc: 485 Interpretive Statements SINUS RHYTHM WITH FIRST DEGREE AV BLOCK LOW QRS VOLTAGE IN PRECORDIAL LEADS NSTTW ABNORMALITY SIMILAR 10/15/16 Electronically Signed On 11-19-2016 8:41:46 EDT by Akiko Meadows
[2016-11-19] MEDS: SODIUM CHLORIDE 0.9% INJ 10 ML SYR IV SCH (08:45)
[2016-11-19] MEDS: LevoFLOXacin 250 MG TABLET PO SCH (09:37)
[2016-11-19] MEDS: POTASSIUM CHLORIDE 10 MEQ SR TABLET PO SCH (09:38)
[2016-11-19] MEDS: ACETAMINOPHEN TAB 650MG DOSE (2X325MG) PO PRN (10:37)
[2016-11-19 11:45] LABS: FOLATE 5.9 NG/ML (>5.4)
[2016-11-19] MEDS: FLUoxetine 20 MG CAP PO SCH (12:52)
[2016-11-19] MEDS: FOLIC ACID 1 MG TAB PO SCH (14:05)
--- NOTE | 2016-11-19 19:44 | IPN ---
DATE: 11/19/2016 Patient is seen and examined. Continues to report generalized weakness. Denies any chest pain, pressure, or discomfort. Denies any shortness of breath, coughing. VITAL SIGNS: Temperature 97.8, pulse 66, respirations 20, blood pressure 115/60, pulse oximetry 94% on two liters nasal cannula. LABORATORY DATA: WBC 6.2, hemoglobin and hematocrit 8/28, platelets 262. Chemistry: Sodium 135, potassium 3.3, chloride 92, bicarbonate 36, BUN 35, creatinine 2.12. PHYSICAL EXAMINATION: GENERAL: Patient obese, alert and oriented times three, in no acute distress. HEENT: Normocephalic, atraumatic. PULMONARY: Bilaterally clear to auscultation. CARDIAC: Regular rate and rhythm. Normal S1, S2. ABDOMEN: Soft, nontender. Positive bowel sounds. EXTREMITIES: No clubbing, cyanosis, or edema. NEUROLOGIC: Cranial nerves II-XII grossly intact. Able to move all four extremities. ASSESSMENT AND PLAN: This is a 71-year-old female patient with underlying medical history of chronic obstructive pulmonary disease (COPD) with chronic hypoxic respiratory failure on oxygen supplementation at home and also obstructive sleep apnea on continuous positive airway pressure (CPAP) at night, insulin dependent diabetes, poorly controlled diabetic on U-500, morbid obesity, paralyzed hemidiaphragm, gout, chronic migraines, seizure disorder, hypertension, gastroesophageal reflux disease (GERD), depression, chronic kidney disease, baseline creatinine 1.7 to 2, with history of deep venous thrombosis (DVT) with inferior vena cava (IVC) filter, presented with severe lethargy similar to what the patient has had before. Blood work shows increasing creatinine. 1. Severe lethargy with questionable altered mental status. Patient has Escherichia (E) coli urinary tract infection (UTI), started on antibiotics. Alternative explanation dehydration. A viral panel has also been sent. Requesting information from patient's neurologist, Dr. Ingram. Patient's diuretics have been on hold. Physical therapy/occupational therapy. 2. Hyperglycemia. Patient poorly controlled diabetic and patient's insulin has been adjusted. Continue U-500 along with mealtime coverage. Followup finger sticks, adjust as needed. 3. Microcytic anemia. Iron supplementation. Transfused one unit packed red blood cells (PRBCs). Anemia workup has been sent. Patient will need followup fecal occult. Patient possibly will need EGD colonoscopy. Currently, hemodynamically stable. 4. Acute on chronic renal failure. Baseline creatinine 1.722. Diuretic has been initially on hold. Currently spironolactone has been restarted. Torsemide has been on hold. Continue to follow. Strict intake and output, daily weight. 5. Chronic hypoxic respiratory failure. Continue oxygen supplementation. 6. Obstructive sleep apnea. Continue continuous positive airway pressure (CPAP). 7. Gout. Home medication has been reduced. Continue medication as ordered, colchicine and allopurinol. 8. Seizure disorder. Keppra dose has been reduced given increased lethargy. 9. Morbid obesity, complicating care. 10. Asthma. Continue to monitor. Patient currently not having any wheeze. 11. Hypertension. Monitor blood pressure. Continue Zebeta and aspirin. 12. Deep venous thrombosis (DVT) prophylaxis. Patient has an inferior vena cava (IVC) filter. Will place the patient on heparin subcutaneous. DISPOSITION: Pending clinical improvement, physical therapy/occupational therapy. Will get additional information from the neurology office to determine what to do next for the patient.
[2016-11-20 02:30] VITALS: BP 138/63
[2016-11-20 04:14] VITALS: BP 127/61
[2016-11-20 05:10] LABS: MEAN CORPUSCULAR HEMOGLOBIN 21.4 pg (27.0-33.0); MEAN CORPUSCULAR HGB CONC 29.1 g/dl (32.0-36.5); MEAN CORPUSCULAR VOLUME 73.6 fl (80.0-96.0); RED CELL DISTRIBUTION WIDTH 19.4 % (11.5-14.5); WHITE BLOOD COUNT 8.8 K/mm3 (4.0-10.0)
[2016-11-20 05:52] LABS: ALBUMIN 3.1 GM/DL (3.2-5.2); ALBUMIN/GLOBULIN RATIO 0.86 (1.00-1.93); BILIRUBIN,TOTAL 0.4 MG/DL (0.2-1.0); CALCIUM LEVEL 9.8 MG/DL (8.8-10.2); CREATININE FOR GFR 2.1 MG/DL (0.55-1.02); GLOMERULAR FILTRATION RATE 24.6 (>39); MAGNESIUM LEVEL 2.7 MG/DL (1.8-2.4); POTASSIUM SERUM 3.9 MEQ/L (3.5-5.1); TOTAL PROTEIN 6.7 GM/DL (6.4-8.2)
[2016-11-20] MEDS: LevoFLOXacin 250 MG TABLET PO SCH (06:18)
[2016-11-20] MEDS: HUMULIN R U-500 KWIKPEN 500UNITS/ML 3ML SYRINGE (J1815 PER 5UNITS) SC SCH ×4 (06:18→22:16)
[2016-11-20] MEDS: HEPARIN SOD (PORCINE) 5000 UNITS/ML VIAL SQ SCH ×3 (06:18→22:16)
[2016-11-20] MEDS: HumaLOG INSULIN (NovoLOG) PER UNIT SC SCH ×5 (07:30→20:10)
[2016-11-20 08:00] VITALS: BP 133/59
[2016-11-20] MEDS: COLCHICINE 0.6 MG TAB PO SCH (08:58)
[2016-11-20] MEDS: SENOKOT S TAB PO SCH ×2 (08:58→20:09)
[2016-11-20] MEDS: POTASSIUM CHLORIDE 10 MEQ SR TABLET PO SCH (08:58)
[2016-11-20] MEDS: OMEPRAZOLE 20 MG CAP PO SCH ×2 (08:58→20:10)
[2016-11-20] MEDS: PREGABALIN 100 MG CAP (LYRICA) PO SCH ×3 (08:58→20:09)
[2016-11-20] MEDS: DOCUSATE SODIUM 100 MG CAP PO SCH ×2 (08:58→20:10)
[2016-11-20] MEDS: ASPIRIN 81 MG ENTERIC TAB PO SCH (08:58)
[2016-11-20] MEDS: LACTULOSE 20 GM/30 ML SYRUP UD PO SCH ×2 (08:58→20:09)
[2016-11-20] MEDS: FOLIC ACID 1 MG TAB PO SCH (08:59)
[2016-11-20] MEDS: K-PHOS ORIGINAL (POT.ACID PHOSPHATE) 500MG TAB PO SCH ×2 (08:59→20:09)
[2016-11-20] MEDS: SUCRALFATE 1 GM TAB PO SCH ×2 (08:59→20:10)
[2016-11-20] MEDS: SPIRONOLACTONE 25 MG TAB PO SCH ×2 (08:59→16:50)
[2016-11-20] MEDS: BISOPROLOL FUMARATE 5 MG TAB PO SCH (08:59)
[2016-11-20] MEDS: levETIRAcetam 250MG TABLET (KEPPRA) PO SCH ×2 (08:59→20:09)
[2016-11-20] MEDS: METOCLOPRAMIDE 10 MG TAB PO SCH ×3 (08:59→20:10)
[2016-11-20] MEDS: ALLOPURINOL 100 MG TAB PO SCH (08:59)
[2016-11-20] MEDS: SODIUM CHLORIDE 0.9% INJ 10 ML SYR IV SCH (09:00)
[2016-11-20 12:00] VITALS: BP 127/60
[2016-11-20] MEDS: FLUoxetine 20 MG CAP PO SCH (12:41)
[2016-11-20 16:00] VITALS: BP 131/59
[2016-11-20 20:07] VITALS: BP 122/59
--- NOTE | 2016-11-20 20:58 | IPN ---
DATE: 11/20/2016 Patient seen and examined. No acute events overnight. Continues to report generalized weakness. Not much improved but is not getting worse either. Denies any chest pain, pressure, or discomfort, fevers, or chills. Tolerating oral. VITAL SIGNS: Temperature 98.3, pulse 76, respirations 18, blood pressure 122/59, pulse oximetry 98% on room air. LABORATORY DATA: WBC 8.8, hemoglobin and hematocrit 8.8/30.1, platelets 290. Chemistry: Sodium 136, potassium 3.9, chloride 96, bicarbonate 30, BUN 39, creatinine 2.1. PHYSICAL EXAMINATION: GENERAL: Patient morbidly obese in no acute distress. Alert and oriented times three. HEENT: Normocephalic, atraumatic. PULMONARY: Bilaterally clear to auscultation. CARDIAC: Regular rate and rhythm. Normal S1, S2. ABDOMEN: Soft and nontender. Positive bowel sounds. EXTREMITIES: No clubbing, cyanosis, or edema. NEUROLOGIC: Cranial nerves II-XII grossly intact. Moves all four extremities. No focal neurologic deficit. ASSESSMENT AND PLAN: This is a 71-year-old female patient with underlying medical history of chronic obstructive pulmonary disease (COPD) with chronic hypoxic respiratory failure on oxygen supplementation at home. Also obstructive sleep apnea on continuous positive airway pressure (CPAP) at night, insulin-dependent diabetes, poorly controlled on U-500, morbid obesity, paralyzed hemidiaphragm, gout, chronic migraine, seizure disorder, hypertension, gastroesophageal reflux disease (GERD), depression, chronic kidney disease (CKD), baseline creatinine 1.7-2, history of deep vein thrombosis (DVT) with inferior vena cava (IVC) filter, and also arachnoiditis, presented with severe lethargy, similar to what the patient had before. Blood work shows increasing creatinine. 1. Severe lethargy. Questionable altered mental status. Patient with E. coli urinary tract infection (UTI). Started on antibiotics. Alternate explanation dehydration versus a flare of patient's arachnoiditis. Thyroid panel has been appreciated to be negative. Case discussed with Dr. Ingram. There is no cure for arachnoiditis. Will consider steroid. Did discuss with the patient. Given patient is severely hyperglycemic, and steroid would essentially make it worse, will discuss with the patient to see if steroids is a viable option. Diuretics have been on hold. Physical therapy (PT)/occupational therapy (OT). 2. Hyperglycemia with poorly controlled type 2 diabetes. Insulin adjusted, U-500 with mealtime coverage. Followup fingersticks. Adjust as needed. 3. Microcytic anemia. Iron supplementation. Transfuse 1 unit of packed red blood cells (PRBC). Anemia workup has been sent. If fecal occult positive, patient will likely need esophagogastroduodenoscopy (EGD)/colonoscopy. Currently hemodynamically stable with stable hemoglobin and hematocrit. 4. Acute on chronic renal failure. Baseline creatinine between the range of 1.7 and 2. Diuretic has been initially on hold. Currently restarted on spironolactone. Will consider restarting torsemide tomorrow. Strict intake and output, daily weight. 5. Chronic hypoxic respiratory failure. Continue oxygen supplementation. 6. Obstructive sleep apnea. Increase CPAP. 7. Gout. Continue home medication at reduced dose. 8. Seizure disorder. Keppra has been reduced given increased lethargy. 9. Morbid obesity complicating care. 10. Asthma. Patient currently does not have any wheeze. Continue to monitor. 11. Hypertension. Monitor blood pressure. Continue Zebeta and aspirin. 12. Deep vein thrombosis (DVT) prophylaxis. Patient has an IVC filter. Patient also placed on heparin subcutaneous for DVT prophylaxis. DISPOSITION: PT/OT pending clinical improvement. Unfortunately, neurology service is not available over the weekend, but case has been discussed with Dr. Ingram. If patient's condition worsens, will consider transferring the patient. Otherwise, will do physical therapy.
[2016-11-21] VITALS (7 sets, daily range): BP systolic 92–126; BP diastolic 53–60
[2016-11-21 05:28] LABS: MEAN CORPUSCULAR HEMOGLOBIN 21.4 pg (27.0-33.0); MEAN CORPUSCULAR HGB CONC 29.4 g/dl (32.0-36.5); MEAN CORPUSCULAR VOLUME 72.8 fl (80.0-96.0); RED CELL DISTRIBUTION WIDTH 19.5 % (11.5-14.5)
[2016-11-21 06:28] LABS: ALBUMIN 2.9 GM/DL (3.2-5.2); ALBUMIN/GLOBULIN RATIO 0.91 (1.00-1.93); BILIRUBIN,TOTAL 0.2 MG/DL (0.2-1.0); CALCIUM LEVEL 9.1 MG/DL (8.8-10.2); CREATININE FOR GFR 1.75 MG/DL (0.55-1.02); GLOMERULAR FILTRATION RATE 30.4 (>39); MAGNESIUM LEVEL 2.6 MG/DL (1.8-2.4); TOTAL PROTEIN 6.1 GM/DL (6.4-8.2)
[2016-11-21] MEDS: HUMULIN R U-500 KWIKPEN 500UNITS/ML 3ML SYRINGE (J1815 PER 5UNITS) SC SCH ×3 (06:30→21:06)
[2016-11-21] MEDS: LevoFLOXacin 250 MG TABLET PO SCH (06:30)
[2016-11-21] MEDS: HEPARIN SOD (PORCINE) 5000 UNITS/ML VIAL SQ SCH ×3 (06:30→21:07)
[2016-11-21] MEDS: LACTULOSE 20 GM/30 ML SYRUP UD PO SCH ×2 (08:23→21:05)
[2016-11-21] MEDS: SODIUM CHLORIDE 0.9% INJ 10 ML SYR IV SCH (08:23)
[2016-11-21] MEDS: HumaLOG INSULIN (NovoLOG) PER UNIT SC SCH ×4 (08:24→21:06)
[2016-11-21] MEDS: COLCHICINE 0.6 MG TAB PO SCH (08:24)
[2016-11-21] MEDS: TORSEMIDE (DEMADEX) 50 MG PER 1/2 TAB PO SCH ×2 (08:24→16:58)
[2016-11-21] MEDS: K-PHOS ORIGINAL (POT.ACID PHOSPHATE) 500MG TAB PO SCH ×2 (08:24→21:05)
[2016-11-21] MEDS: SPIRONOLACTONE 25 MG TAB PO SCH ×2 (08:25→16:59)
[2016-11-21] MEDS: OMEPRAZOLE 20 MG CAP PO SCH ×2 (08:25→21:05)
[2016-11-21] MEDS: ALLOPURINOL 100 MG TAB PO SCH (08:25)
[2016-11-21] MEDS: POTASSIUM CHLORIDE 10 MEQ SR TABLET PO SCH (08:25)
[2016-11-21] MEDS: PREGABALIN 100 MG CAP (LYRICA) PO SCH ×3 (08:25→21:05)
[2016-11-21] MEDS: levETIRAcetam 250MG TABLET (KEPPRA) PO SCH ×2 (08:25→21:05)
[2016-11-21] MEDS: DOCUSATE SODIUM 100 MG CAP PO SCH ×2 (08:25→21:05)
[2016-11-21] MEDS: SENOKOT S TAB PO SCH ×2 (08:25→21:05)
[2016-11-21] MEDS: METOCLOPRAMIDE 10 MG TAB PO SCH ×3 (08:25→21:05)
[2016-11-21] MEDS: BISOPROLOL FUMARATE 5 MG TAB PO SCH (08:26)
[2016-11-21] MEDS: SUCRALFATE 1 GM TAB PO SCH ×2 (08:26→21:04)
[2016-11-21] MEDS: ASPIRIN 81 MG ENTERIC TAB PO SCH (08:26)
[2016-11-21] MEDS: FOLIC ACID 1 MG TAB PO SCH (08:26)
[2016-11-21] MEDS: FLUoxetine 20 MG CAP PO SCH (12:11)
--- NOTE | 2016-11-21 13:38 | IPN ---
DATE: 11/21/2016 Patient seen and examined. No acute events overnight. Denies any chest pain, pressure, or discomfort. Reported strength to be much improved. Denies any shortness of breath. Tolerating diet. VITAL SIGNS: Temperature 96.8, pulse 68, respirations 18, blood pressure 92/53, pulse oximetry 99% on 2 liters nasal cannula. LABORATORY DATA: WBC 7, hemoglobin and hematocrit 8.2/27.9, platelets 237. Chemistry: Sodium 139, potassium 4, chloride 101, bicarbonate 29, BUN 31, creatinine 1.75. Fecal occult negative. PHYSICAL EXAMINATION: GENERAL: Patient morbidly obese in no acute distress. Alert and oriented times three. HEENT: Normocephalic, atraumatic. PULMONARY: Bilaterally clear to auscultation. CARDIAC: Regular rate and rhythm. Normal S1, S2. ABDOMEN: Soft and nontender. Positive bowel sounds. EXTREMITIES: No clubbing, cyanosis, or edema. NEUROLOGIC: Cranial nerves II-XII grossly intact. Moves all four extremities. No focal neurologic deficit. ASSESSMENT AND PLAN: This is a 71-year-old female patient with underlying medical history of chronic obstructive pulmonary disease (COPD) with chronic hypoxic respiratory failure on oxygen supplementation at home. 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 Blood shows increasing creatinine. 1. Severe lethargy. Questionable altered mental status. Patient with E. coli urinary tract infection (UTI). Started on antibiotics. Alternative explanation dehydration versus a flare of patient's arachnoiditis. Thyroid panel has been appreciated. Case discussed with Dr. Ingram. There is no cure for arachnoiditis. Will consider steroids if the patient's condition does not improve. Case discussed with the patient. The steroids will cause her sugar to be severely hyperglycemic and will hold off steroids given the patient reported her symptoms have improved since yesterday. Continue physical therapy (PT)/occupational therapy (OT). 2. Hyperglycemia, poorly controlled type 2 diabetes. Insulin adjusted, U-500 and mealtime coverage. Followup fingersticks. Adjust as needed. 3. Microcytic anemia. Iron supplementation. Transfuse 1 unit of packed red blood cells (PRBC). Iron supplementation. Bowel regimen. Vitamin C. Followup hemoglobin and hematocrit. Fecal occult negative. 4. Acute on chronic renal failure. Baseline creatinine between the range of 1.7 and 2. Diuretic has been started at a reduced dose. Spironolactone and torsemide at half dose. Strict intake and output, daily weights. 5. Chronic hypoxic respiratory failure. Oxygen supplementation. 6. Obstructive sleep apnea. Encourage CPAP. 7. Gout. Continue home medication at reduced dose. 8. Seizure disorder. Keppra has been reduced given increased lethargy. 9. Morbid obesity complicating care. 10. Asthma. Patient currently does not have any wheeze. Continue to monitor. 11. Hypertension. Monitor blood pressure. Continue Zebeta and aspirin. 12. Deep vein thrombosis (DVT) prophylaxis. Patient has an IVC filter. Continue heparin subcutaneous for DVT prophylaxis. DISPOSITION: PT/OT, clinical improvement. If patient does not improve, will consult neurology on Tuesday.
[2016-11-21] MEDS: FERROUS SULFATE 325MG TAB PO SCH ×2 (14:52→21:05)
[2016-11-21] MEDS: ASCORBIC ACID 250 MG TAB PO SCH ×2 (14:52→21:05)
[2016-11-22 04:00] VITALS: BP 124/58
[2016-11-22 05:35] LABS: MEAN CORPUSCULAR HEMOGLOBIN 21.8 pg (27.0-33.0); MEAN CORPUSCULAR HGB CONC 29.4 g/dl (32.0-36.5); MEAN CORPUSCULAR VOLUME 74.1 fl (80.0-96.0); RED CELL DISTRIBUTION WIDTH 19.4 % (11.5-14.5); WHITE BLOOD COUNT 7.8 K/mm3 (4.0-10.0)
[2016-11-22] MEDS: LevoFLOXacin 250 MG TABLET PO SCH (06:15)
[2016-11-22] MEDS: HEPARIN SOD (PORCINE) 5000 UNITS/ML VIAL SQ SCH ×3 (06:16→21:08)
[2016-11-22] MEDS: HUMULIN R U-500 KWIKPEN 500UNITS/ML 3ML SYRINGE (J1815 PER 5UNITS) SC SCH ×3 (06:16→21:07)
[2016-11-22 06:19] LABS: ALBUMIN 2.9 GM/DL (3.2-5.2); ALBUMIN/GLOBULIN RATIO 0.88 (1.00-1.93); BILIRUBIN,TOTAL 0.2 MG/DL (0.2-1.0); CALCIUM LEVEL 8.7 MG/DL (8.8-10.2); CREATININE FOR GFR 1.94 MG/DL (0.55-1.02); MAGNESIUM LEVEL 2.3 MG/DL (1.8-2.4); POTASSIUM SERUM 4.2 MEQ/L (3.5-5.1); TOTAL PROTEIN 6.2 GM/DL (6.4-8.2)
[2016-11-22 08:00] VITALS: BP 110/54
[2016-11-22 08:09] LABS: BABESIA MICROTI PCR Negative (Negative); Lyme Disease IgG/IgM Antibodie <0.91 ISR (0.00-0.90); Lyme Disease IgM Ab Quantitati <0.80 index (0.00-0.79)
[2016-11-22] MEDS: HumaLOG INSULIN (NovoLOG) PER UNIT SC SCH ×4 (08:47→20:45)
[2016-11-22] MEDS: LACTULOSE 20 GM/30 ML SYRUP UD PO SCH ×2 (08:48→20:44)
[2016-11-22] MEDS: COLCHICINE 0.6 MG TAB PO SCH (08:48)
[2016-11-22] MEDS: K-PHOS ORIGINAL (POT.ACID PHOSPHATE) 500MG TAB PO SCH ×2 (08:48→20:45)
[2016-11-22] MEDS: levETIRAcetam 250MG TABLET (KEPPRA) PO SCH ×2 (08:48→20:45)
[2016-11-22] MEDS: BISOPROLOL FUMARATE 5 MG TAB PO SCH (08:49)
[2016-11-22] MEDS: ASPIRIN 81 MG ENTERIC TAB PO SCH (08:50)
[2016-11-22] MEDS: SPIRONOLACTONE 25 MG TAB PO SCH ×2 (08:50→16:17)
[2016-11-22] MEDS: POTASSIUM CHLORIDE 10 MEQ SR TABLET PO SCH (08:50)
[2016-11-22] MEDS: METOCLOPRAMIDE 10 MG TAB PO SCH ×3 (08:50→20:46)
[2016-11-22] MEDS: ALLOPURINOL 100 MG TAB PO SCH (08:50)
[2016-11-22] MEDS: FOLIC ACID 1 MG TAB PO SCH (08:50)
[2016-11-22] MEDS: OMEPRAZOLE 20 MG CAP PO SCH ×2 (08:51→20:46)
[2016-11-22] MEDS: SENOKOT S TAB PO SCH ×2 (08:51→20:46)
[2016-11-22] MEDS: SUCRALFATE 1 GM TAB PO SCH ×2 (08:51→20:46)
[2016-11-22] MEDS: PREGABALIN 100 MG CAP (LYRICA) PO SCH ×3 (08:51→20:46)
[2016-11-22] MEDS: DOCUSATE SODIUM 100 MG CAP PO SCH ×2 (08:51→20:46)
[2016-11-22] MEDS: FERROUS SULFATE 325MG TAB PO SCH ×2 (08:52→20:45)
[2016-11-22] MEDS: SODIUM CHLORIDE 0.9% INJ 10 ML SYR IV SCH (08:52)
[2016-11-22] MEDS: ASCORBIC ACID 250 MG TAB PO SCH ×2 (08:52→20:46)
[2016-11-22 12:00] VITALS: BP 131/64
[2016-11-22] MEDS: FLUoxetine 20 MG CAP PO SCH (12:40)
[2016-11-22] MEDS: ACETAMINOPHEN TAB 650MG DOSE (2X325MG) PO PRN (15:12)
[2016-11-22 16:00] VITALS: BP 176/70
[2016-11-22 20:00] VITALS: BP 135/63
--- NOTE | 2016-11-22 21:23 | IPN ---
DATE: 11/22/2016 Patient seen and examined. No acute events overnight. Denies any chest pain, pressure, discomfort, fevers, or chills. Tolerating oral. Continues to be mildly weak. VITAL SIGNS: Temperature 97.4, pulse 80, respirations 20, blood pressure 176/70, pulse oximetry 97% on 2 liters nasal cannula. LABORATORY DATA: WBC 7.8, hemoglobin and hematocrit 8.4/28.5, platelets 276. Chemistry: Sodium 138, potassium 4.2, chloride 97, bicarbonate 29, BUN 32, creatinine 1.94. PHYSICAL EXAMINATION: GENERAL: Patient alert and oriented times three, in no acute distress. HEENT: Normocephalic, atraumatic. PULMONARY: Bilaterally clear to auscultation. CARDIAC: Regular rate and rhythm. Normal S1, S2. ABDOMEN: Soft, nontender, obese. Positive bowel sounds. EXTREMITIES: No clubbing, cyanosis, or edema. NEUROLOGIC: No focal deficit. ASSESSMENT AND PLAN: This is a 71-year-old female patient with underlying medical history of chronic obstructive pulmonary disease (COPD), chronic hypoxic respiratory failure, on oxygen supplementation at home, obstructive sleep apnea on continuous positive airway pressure (CPAP) at night, insulin-dependent diabetes, poorly controlled, on U-500, morbid obesity, paralyzed hemidiaphragm, gout, chronic migraine, seizure disorder, hypertension, gastroesophageal reflux disease (GERD), depression, chronic kidney disease (CKD), baseline creatinine 1.7 to 2, deep vein thrombosis (DVT) with inferior vena cava (IVC) filter, arachnoiditis, presented with severe lethargy, similar to what she had before, with increasing creatinine. 1. Severe lethargy. Questionable altered mental status. Urinary tract infection (UTI) has been found Escherichia (E) coli. Started on antibiotics. Alternative explanation dehydration versus flare of patient's arachnoiditis. Thyroid panel appreciated. Case initially discussed with Dr. Ingram. Neurology, Dr. Silveira, has been consulted. Will determine whether patient needs steroids for treatment of patient's current condition for arachnoiditis. Physical therapy/occupational therapy (PT/OT). Treatment of urinary tract infection (UTI). 2. Hyperglycemia, poorly controlled type 2 diabetes. Insulin has been adjusted, U-500, along with mealtime coverage. Followup fingersticks. 3. Urinary tract infection (UTI). Continue antibiotics. Cultures appreciated. 4. Microcytic anemia. Iron supplementation. Transfused 1 unit of packed red blood cells (PRBCs). Fecal occult negative. Bowel regimen given. Iron supplementation and vitamin C has been provided. Followup hemoglobin and hematocrit. 5. Acute on chronic renal insufficiency. Baseline creatinine in the range of 1.7 and 2. Diuretic has been started at adjusted dose, spironolactone and torsemide, at reduced dose. Strict intake and output, daily weights. 6. Chronic hypoxic respiratory failure. Oxygen supplementation. 7. Obstructive sleep apnea. Continuous positive airway pressure (CPAP) at night. 8. Gout. Continue home medication at reduced dose. 9. Seizure disorder. Keppra has been reduced in dose. Neurology has been consulted. 10. Morbid obesity, complicating care. 11. Asthma. Patient currently does not have any wheeze. Continue to monitor. 12. Hypertension. Monitor blood pressure. Continue Zebeta and aspirin. 13. Deep vein thrombosis (DVT) prophylaxis. Patient has an inferior vena cava (IVC) filter. Heparin subcutaneous. DISPOSITION: Physical therapy/occupational therapy (PT/OT). Neurology consultation.
--- NOTE | 2016-11-22 21:41 | REP ---
RIGHT HAND AP LATERAL: 11/22/2016. Comparison: 11/19/2013 x-ray. Findings: Again seen is the right total hip arthroplasty on both views. Femoral stem component is tightly applied to the pokagon bone and acetabular cup component and femoral head components articulate normally on both views. There is no evidence of change in the relationship of the femoral stem component to the endosteal cortex that would suggest loosening or infection on these images. Pubic rami, symphysis pubis and that portion of right iliac bone and the sacrum seen were intact. Impression: 1. Status post right total hip arthroplasty with the pokagon bone and prosthetic components showing normal relationships. Grossly stable appearance from the postoperative images on 11/19/2013. Signed by Keanu Faye MD 11/23/2016 11:11 A
[2016-11-23] VITALS (7 sets, daily range): BP systolic 115–160; BP diastolic 56–77
[2016-11-23] MEDS: HEPARIN SOD (PORCINE) 5000 UNITS/ML VIAL SQ SCH ×3 (05:49→21:00)
[2016-11-23] MEDS: LevoFLOXacin 250 MG TABLET PO SCH (05:50)
[2016-11-23] MEDS: HUMULIN R U-500 KWIKPEN 500UNITS/ML 3ML SYRINGE (J1815 PER 5UNITS) SC SCH ×3 (05:50→21:01)
[2016-11-23 06:15] LABS: MEAN CORPUSCULAR HEMOGLOBIN 21.3 pg (27.0-33.0); MEAN CORPUSCULAR HGB CONC 29.1 g/dl (32.0-36.5); MEAN CORPUSCULAR VOLUME 73.2 fl (80.0-96.0); RED CELL DISTRIBUTION WIDTH 20.4 % (11.5-14.5); WHITE BLOOD COUNT 7.4 K/mm3 (4.0-10.0)
--- NOTE | 2016-11-23 08:22 | CR ---
DATE OF CONSULTATION: 11/23/2016 REFERRING PHYSICIAN: Dr. Beth Jenkins REASON FOR CONSULTATION: Generalized weakness and fatigue. HISTORY OF PRESENT ILLNESS: The patient is a 71-year-old woman with a history of chronic respiratory failure, chronic neck and back pain due to history of arachnoiditis. The patient had back surgery 40 years ago and had myelograms 30 years ago. She had three or four myelograms. She believes myelograms caused her arachnoiditis. She had a morphine pump at some point for her chronic pain. She became allergic to MORPHINE. She continues to follow with pain clinic. They were planning to do nerve blocks in her neck, but she had to come to [facility] as she started feeling more shortness of breath and more numbness and weakness of arms and legs. The patient has been wheelchair bound for many years. She has had a motorized wheelchair for last couple of years, which she uses inside and outside her house. Her legs are generally weaker than her arms. The patient states that a month ago she had a mammogram, which showed Mosque. A second mammogram did not show a lump. She was initially going to [facility] for biopsy. She was told after her second mammogram that she did not need to go [facility] for biopsy. She is concerned that this may have led to her current symptoms. She has occasional headaches. She denies dysphagia, dysarthria, diplopia. PAST MEDICAL HISTORY 1. Chronic obstructive pulmonary disease (COPD) on home oxygen and CPAP. 2. Obstructive sleep apnea. 3. Insulin-dependent diabetes mellitus. 4. Asthma. 5. Obesity. 6. Paralyzed hemidiaphragm. 7. Gout. 8. Chronic migraines. 9. Seizures. 10. Hypertension. 11. Acid reflux. 12. Depression. 13. Chronic kidney disease. 14. Chronic neck and back pain. 15. History of arachnoiditis. HOME MEDICATIONS: - clindamycin 300 mg by mouth daily - insulin NovoLog sliding scale - scopolamine patch 1.5 mg every 72 hours for nausea - Fioricet with codeine three times a day as needed - Incruse Ellipta 62.5 mcg inhalation daily - allopurinol 300 mg by mouth daily - aspirin 81 mg by mouth daily - bisoprolol 2.5 mg by mouth daily - colchicine 0.6 mg by mouth daily - Colace 100 mg by mouth daily - Prozac 20 mg by mouth daily - Keppra 500 mg by mouth four times a day but has been decreased to 750 mg by mouth twice a day - Reglan 10 mg by mouth three times a day - Prilosec 20 mg by mouth twice a day - Lyrica 100 mg by mouth three times a day - spironolactone 25 mg by mouth twice a day - torsemide 50 mg by mouth twice a day - sucralfate 1 gram by mouth twice a day - potassium chloride 20 mEq by mouth daily - potassium phosphate 5 mg by mouth twice a day ALLERGIES: CEPHALOSPORINS, IODINE, LATEX, CLARITIN, METHADONE, PENICILLIN, PENTAZOCINE, SULFA, SALMETEROL, CHLORPROMAZINE. SOCIAL HISTORY: She denies smoking, alcohol, illicit drugs. FAMILY HISTORY: Noncontributory. REVIEW OF SYSTEMS: All systems were reviewed and were found to be noncontributory except as mentioned in the history present illness. PHYSICAL EXAMINATION: Blood pressure 131/64, pulse 81, respiratory 20, temperature 97.2, 98% saturation on room air. HEART: Regular rate and rhythm. LUNGS: Clear to auscultation. EXTREMITIES: No pedal edema. NEUROLOGIC EXAMINATION: The patient is awake, alert, oriented to place, person and time. Normal speech, comprehension and repetition. Extraocular muscles are intact. No facial weakness. Tongue and uvula are midline. 5/5 strength in bilateral upper extremities. Right leg strength is 3/5 and left leg strength is 4- /5 throughout. Plantars are downgoing. She has decreased cold pinprick vibration sensation in her feet. Gait could not be tested. No dysmetria on cerebellar testing. ASSESSMENT 1. Multifactorial gait difficulty. 2. Chronic neck and back pain. 3. History of arachnoiditis 4. Diabetic peripheral neuropathy. 5. CT scan of cervical and lumbar spine. If she is able to have MRI scan of spine, I would prefer to do MRI scan of cervical and lumbosacral spine. Her CT scan of head showed mild atrophy only. 6. The patient declined a spinal tap. 7. Physical and occupational therapy. 8. Close followup with the pain clinic. 9. Decrease Keppra to 750 mg by mouth twice a day and continue Lyrica 1 mg by mouth three times a day. 10. Her acetylcholine receptor antibody is pending, although my suspicion of index is low. Her testing for Lyme disease and other tick borne diseases was negative. 11. Followup with our office in 1 month after hospital discharge. JOSE R
[2016-11-23] MEDS: BISOPROLOL FUMARATE 5 MG TAB PO SCH (09:33)
[2016-11-23] MEDS: LACTULOSE 20 GM/30 ML SYRUP UD PO SCH ×2 (09:33→20:47)
[2016-11-23] MEDS: DOCUSATE SODIUM 100 MG CAP PO SCH ×2 (09:34→20:47)
[2016-11-23] MEDS: ASPIRIN 81 MG ENTERIC TAB PO SCH (09:35)
[2016-11-23] MEDS: POTASSIUM CHLORIDE 10 MEQ SR TABLET PO SCH (09:35)
[2016-11-23] MEDS: OMEPRAZOLE 20 MG CAP PO SCH ×2 (09:35→20:47)
[2016-11-23] MEDS: ALLOPURINOL 100 MG TAB PO SCH (09:35)
[2016-11-23] MEDS: levETIRAcetam 250MG TABLET (KEPPRA) PO SCH ×2 (09:35→20:48)
[2016-11-23] MEDS: ASCORBIC ACID 250 MG TAB PO SCH ×2 (09:35→20:47)
[2016-11-23] MEDS: FOLIC ACID 1 MG TAB PO SCH (09:35)
[2016-11-23] MEDS: SENOKOT S TAB PO SCH ×2 (09:35→20:47)
[2016-11-23] MEDS: FERROUS SULFATE 325MG TAB PO SCH ×2 (09:36→20:47)
[2016-11-23] MEDS: METOCLOPRAMIDE 10 MG TAB PO SCH ×3 (09:36→20:47)
[2016-11-23] MEDS: COLCHICINE 0.6 MG TAB PO SCH (09:36)
[2016-11-23] MEDS: SODIUM CHLORIDE 0.9% INJ 10 ML SYR IV SCH (09:37)
[2016-11-23] MEDS: HumaLOG INSULIN (NovoLOG) PER UNIT SC SCH ×4 (09:38→20:49)
[2016-11-23] MEDS: SPIRONOLACTONE 25 MG TAB PO SCH ×2 (09:43→17:24)
[2016-11-23] MEDS: PREGABALIN 100 MG CAP (LYRICA) PO SCH ×3 (09:43→20:47)
[2016-11-23] MEDS: SUCRALFATE 1 GM TAB PO SCH ×2 (09:43→20:48)
[2016-11-23] MEDS: K-PHOS ORIGINAL (POT.ACID PHOSPHATE) 500MG TAB PO SCH ×2 (09:43→20:47)
[2016-11-23] MEDS: TORSEMIDE 10 MG TABLET PO SCH ×2 (09:43→17:24)
[2016-11-23 10:57] LABS: ALBUMIN/GLOBULIN RATIO 0.91 (1.00-1.93); BILIRUBIN,TOTAL 0.3 MG/DL (0.2-1.0); CALCIUM LEVEL 9.1 MG/DL (8.8-10.2); CREATININE FOR GFR 1.59 MG/DL (0.55-1.02); MAGNESIUM LEVEL 2.5 MG/DL (1.8-2.4); TOTAL PROTEIN 6.3 GM/DL (6.4-8.2)
[2016-11-23] MEDS: FLUoxetine 20 MG CAP PO SCH (12:49)
--- NOTE | 2016-11-23 13:13 | REP ---
CT study of the right hip without contrast: History: Right hip and thigh pain. Comparison study November 22, 2016. The patient is status post right hip replacement. Technique: Helical scanning is acquired and 3 mm axial contiguous images are reformatted. Coronal and sagittal multiplanar re-formation images are generated and reviewed. CT findings: The right hip prosthesis appears well aligned. There is no evidence of a prosthesis associated radiolucency along the femoral stem or acetabular components. No periosteal reaction or periosteal defect is seen. No bony destructive or erosive change is seen in the distal femur. No periosteal soft tissue mass is seen. No abnormal calcification is seen in the soft tissues. There is minimal vascular calcification. Impression: Status post right hip replacement. No acute bony abnormality or significant soft tissue finding. Signed by Hua Wang MD 11/23/2016 02:54 P
--- NOTE | 2016-11-23 15:48 | REP ---
MR THORACIC SPINE WITHOUT CONTRAST: HISTORY: Back pain. COMPARISON: 03/13/2008. A small left paracentral disc protrusion is present at the T4-5 level. There is minimal effacement of the thecal sac without spinal cord compression. The T4 neural foramina are patent. There is no other disc bulge or herniation. The remaining neural foramina are patent. The spinal cord is normal in signal intensity. Normal signal intensity is present in the thoracic vertebral bodies. Small anterior osteophytes are present in the mid and lower thoracic spine. IMPRESSION: Small disc protrusion at the T4-5 level without spinal cord compression. There is no significant change compared to the previous study. Signed by Vinnie Wade MD 11/23/2016 03:57 P
--- NOTE | 2016-11-23 15:49 | IPNPDOC ---
Text Note Date of Service The patient was seen on 11/23/16. NOTE Subjective: Patient states she feels well. Has chronic upper and lower extremity weakness and typically uses a wheelchair to get around. Objective: Vitals: (see below) General: No acute distress, laying comfortably in bed. HEENT: Moist mucous membranes. Neck: No JVD or lymphadenopathy Cardiac: RRR, No murmurs Pulm: Clear to auscultation b/l. No wheezing, rhonchi Abd: NT/ND + BS Ext: No edema or cyanosis. Right thigh pain on palpation. Pain on external rotation of the right lower extremity. Distal pulses intact. No cellulitis. Neuro: Strength 3-4 BUE and 3-4/5 BLE L>R. CN 2-12 intact. F to N intact Negative Babinki. Labs (see below) Images: Assessment/Plan 1. Severe lethargy likely secondary to complicated urinary tract infection. On antibiotics. Improving. Mentation has improved as well. Evaluated by neurology. 2. Chronic lower back pain as well as chronic upper and lower extremity weakness - MRI cervical/lumbar spine recommended by neurology and has been ordered. 3. Right thigh pain- patient also has hip pain is well CT ordered. Patient is chronically wheelchair bound. 4. Hyperglycemia- diabetes mellitus, insulin dose increased. SSI. Continue to monitor. 5. History of metastatic anemia- status post 1 unit PRBC. FOBT negative. History of iron deficiency anemia on iron supplementation. Continue to monitor hemoglobin. 6. Urinary tract infection- continue antibiotics pending cultures. 7. Acute kidney injury on chronic kidney disease Baseline creatinine 1.7-2. Diuretics restarted. Strict I/O. 8. History of severe COPD with hypoxic respiratory failure on oxygen supplementation at home. 9. MATT on CPAP 10. History of gout 11. History of seizure disorder- Keppra decreased by neurology. 12. morbid obesity 13. Hypertension- controlled continue home meds DVT prophy: IVC filter/heparin subcutaneous VS,Fishbone, I+O VS, Fishbone, I+O Laboratory Tests 11/23/16 05:47 Red Blood Count 3.67 L, Mean Corpuscular Volume 73.2 L, Mean Corpuscular Hemoglobin 21.3 L, Mean Corpuscular Hemoglobin Concent 29.1 L, Red Cell Distribution Width 20.4 H 11/23/16 10:18 Calcium Level 9.1, Aspartate Amino Transf (AST/SGOT) 49 H, Alanine Aminotransferase (ALT/SGPT) 43, Alkaline Phosphatase 98, Total Bilirubin 0.3, Total Protein 6.3 L, Albumin 3.0 L Vital Signs Date Time Temp Pulse Resp B/P (MAP) Pulse Ox O2 Delivery O2 Flow Rate FiO2 11/23/16 09:33 80 136/61 11/23/16 08:00 97.4 20 97 Nasal Cannula 2.0 I&O- Last 24 Hours up to 6 AM 11/23/16 06:00 Intake Total 1590 ml Output Total 1100 ml Balance 490 ml KEARA MCGHEE MD Nov 23, 2016 15:49
--- NOTE | 2016-11-23 15:54 | REP ---
MR CERVICAL SPINE WITHOUT CONTRAST: HISTORY: Neck pain. A disc bulge and small left paracentral disc protrusion with associated osteophyte formation are present at the C4-5 level. There is moderate effacement of the thecal sac without spinal cord compression. Bilateral uncinate process hypertrophy is present. This produces minimal narrowing of the C4 neural foramina. A disc bulge with associated osteophyte formation is present at the C5-6 level. There is moderate effacement of the thecal sac without spinal cord compression. Uncinate process hypertrophy is present on the left. This produces minimal narrowing of the left C5 neural foramen. The right C5 neural foramen is patent. A disc bulge with associated osteophyte formation is present at the C6-7 level. There is moderate effacement of the thecal sac with out spinal cord compression. Bilateral uncinate process hypertrophy is present. This produces minimal narrowing of the C6 neural foramina. There is no other disc bulge or herniation. The remaining neural foramina are patent. The spinal cord is normal in signal intensity. The C4-5 through C6-7 intervertebral discs are decreased in height consistent with disc degeneration. Normal signal intensity is present in the cervical vertebral bodies. IMPRESSION: There are cervical spondylosis at the C4-5 through C6-7 levels without spinal cord compression. Signed by Vinnie Wade MD 11/23/2016 03:57 P
[2016-11-23] MEDS: ACETAMINOPHEN TAB 650MG DOSE (2X325MG) PO PRN ×2 (16:00→21:06)
[2016-11-24 04:21] VITALS: BP 121/56
[2016-11-24] MEDS: HEPARIN SOD (PORCINE) 5000 UNITS/ML VIAL SQ SCH (05:27)
[2016-11-24] MEDS: LevoFLOXacin 250 MG TABLET PO SCH (05:27)
[2016-11-24 06:08] LABS: MEAN CORPUSCULAR HEMOGLOBIN 21.7 pg (27.0-33.0); MEAN CORPUSCULAR HGB CONC 29.2 g/dl (32.0-36.5); MEAN CORPUSCULAR VOLUME 74.4 fl (80.0-96.0); RED CELL DISTRIBUTION WIDTH 20.7 % (11.5-14.5); WHITE BLOOD COUNT 7.5 K/mm3 (4.0-10.0)
[2016-11-24] MEDS: HUMULIN R U-500 KWIKPEN 500UNITS/ML 3ML SYRINGE (J1815 PER 5UNITS) SC SCH ×2 (06:12→13:13)
[2016-11-24 07:36] LABS: ALBUMIN 2.9 GM/DL (3.2-5.2); ALBUMIN/GLOBULIN RATIO 0.91 (1.00-1.93); BILIRUBIN,TOTAL 0.3 MG/DL (0.2-1.0); CALCIUM LEVEL 8.3 MG/DL (8.8-10.2); CREATININE FOR GFR 1.55 MG/DL (0.55-1.02); MAGNESIUM LEVEL 2.4 MG/DL (1.8-2.4); POTASSIUM SERUM 4.9 MEQ/L (3.5-5.1); TOTAL PROTEIN 6.1 GM/DL (6.4-8.2)
[2016-11-24 08:00] VITALS: BP 111/87
[2016-11-24] MEDS: TORSEMIDE 10 MG TABLET PO SCH (08:46)
[2016-11-24] MEDS: K-PHOS ORIGINAL (POT.ACID PHOSPHATE) 500MG TAB PO SCH (08:46)
[2016-11-24] MEDS: LACTULOSE 20 GM/30 ML SYRUP UD PO SCH (08:46)
[2016-11-24] MEDS: SPIRONOLACTONE 25 MG TAB PO SCH (08:47)
[2016-11-24] MEDS: DOCUSATE SODIUM 100 MG CAP PO SCH (08:47)
[2016-11-24] MEDS: levETIRAcetam 250MG TABLET (KEPPRA) PO SCH (08:47)
[2016-11-24] MEDS: SUCRALFATE 1 GM TAB PO SCH (08:47)
[2016-11-24] MEDS: ACETAMINOPHEN TAB 650MG DOSE (2X325MG) PO PRN (08:47)
[2016-11-24] MEDS: OMEPRAZOLE 20 MG CAP PO SCH (08:48)
[2016-11-24] MEDS: METOCLOPRAMIDE 10 MG TAB PO SCH (08:48)
[2016-11-24] MEDS: COLCHICINE 0.6 MG TAB PO SCH (08:48)
[2016-11-24] MEDS: SENOKOT S TAB PO SCH (08:48)
[2016-11-24] MEDS: PREGABALIN 100 MG CAP (LYRICA) PO SCH (08:48)
[2016-11-24 08:49] VITALS: BP 121/56
[2016-11-24] MEDS: FOLIC ACID 1 MG TAB PO SCH (08:49)
[2016-11-24] MEDS: ASCORBIC ACID 250 MG TAB PO SCH (08:49)
[2016-11-24] MEDS: ALLOPURINOL 100 MG TAB PO SCH (08:49)
[2016-11-24] MEDS: BISOPROLOL FUMARATE 5 MG TAB PO SCH (08:49)
[2016-11-24] MEDS: ASPIRIN 81 MG ENTERIC TAB PO SCH (08:49)
[2016-11-24] MEDS: POTASSIUM CHLORIDE 10 MEQ SR TABLET PO SCH (08:50)
[2016-11-24] MEDS: SODIUM CHLORIDE 0.9% INJ 10 ML SYR IV SCH (08:51)
[2016-11-24] MEDS: HumaLOG INSULIN (NovoLOG) PER UNIT SC SCH ×2 (08:51→12:14)
[2016-11-24] MEDS ORDERED: FERROUS SULFATE 325MG TAB PO SCH (09:00)
[2016-11-24] MEDS ORDERED: LEVA1TAB PO (10:31)
[2016-11-24] MEDS ORDERED: KEPP250T5 PO (10:31)
[2016-11-24] MEDS: FLUoxetine 20 MG CAP PO SCH (12:14)
--- NOTE | 2016-11-24 15:05 | DS.PDOC ---
Discharge Summary General Date of Admission Nov 18, 2016 at 08:09 Date of Discharge 11/24/16 Attending Physician: KEARA MCGHEE MD Discharge Summary PROCEDURES PERFORMED DURING STAY: None. ADMITTING/DISCHARGE DIAGNOSES: 1. Lethargy/altered mental status in the setting of a urinary tract infection, resolved. 2. Chronic lower back pain as well as chronic upper and lower extremity weakness - MRI cervical/lumbar spine with no acute spinal cord compression 3. Diabetes mellitus 4. Acute kidney injury on chronic kidney disease Baseline creatinine 1.7-2. Resolved. 5. History of severe COPD with hypoxic respiratory failure on oxygen supplementation at home. 6. MATT on CPAP 7. History of gout 8. History of seizure disorder- Keppra decreased by neurology. 9. Morbid obesity 10. Hypertension- 11. Chronic Anemia status post 1 unit PRBC. FOBT negative. History of iron deficiency anemia on iron supplementation. COMPLICATIONS/CHIEF COMPLAINT: HISTORY OF PRESENT ILLNESS/HOSPITAL COURSE: This is an 5-year-old morbidly obese female to past medical history of hypertension, severe lung disease, MATT on CPAP, presents with lethargy and altered mental status. Patient was found to have a urinary tract infection with significant improvement of her mentation with the treatment of the infection. Patient was also noted to have chronic back pain as well as generalized weakness with MRI of the cervical lumbar spine noting chronic changes with no acute spinal cord compression. Patient was also evaluated by neurology with decrease in her Keppra dosage. Patient has participated with physical therapy and has remained hemodynamically stable on her be discharged home today. Patient is to return if symptoms recur. DISCHARGE MEDICATIONS: Please see below. ALLERGIES: Please see below. PHYSICAL EXAMINATION ON DISCHARGE: Vitals: (see below) General: No acute distress, laying comfortably in bed. HEENT: Moist mucous membranes. Neck: No JVD or lymphadenopathy Cardiac: RRR, No murmurs Pulm: Coarse crackles and diminished breath sounds at the bases bilaterally. No wheezing, rhonchi Abd: NT/ND + BS Ext: No cyanosis. Trace pitting edema BLE. Distal pulses intact. No focal weakness. LABORATORY DATA: Please see below. IMAGING: MRI cervical spine on 11/23/16. IMPRESSION: There are cervical spondylosis at the C4-5 through C6-7 levels without spinal cord compression. MRI Lumbar spine on 11/23/16 CT Right thigh/leg on 11/23/16 Impression: Status post right hip replacement. No acute bony abnormality or significant soft tissue finding. MRI thoracic spine on 11/23/16 IMPRESSION: Small disc protrusion at the T4-5 level without spinal cord compression. There is no significant change compared to the previous study. PROGNOSIS: Guarded ACTIVITY: As tolerated. DIET: Low-sodium DISCHARGE PLAN/DISPOSITION: DISCHARGE INSTRUCTIONS: 1. Follow-up with PCP and neurology in 1-2 weeks. DISCHARGE CONDITION: Stable. TIME SPENT ON DISCHARGE: Greater than 30 minutes. Vital Signs/I&Os Vital Signs Date Time Temp Pulse Resp B/P (MAP) Pulse Ox O2 Delivery O2 Flow Rate FiO2 11/24/16 08:49 67 121/56 11/24/16 08:00 Nasal Cannula 2.0 11/24/16 08:00 97.2 19 97 I&O- Last 24 Hours up to 6 AM 11/24/16 05:59 Intake Total 1620 ml Output Total 1950 ml Balance -330 ml Laboratory Data Labs 24H Laboratory Tests 2 11/23/16 16:45: Bedside Glucose (Misc Panel) 311H 11/23/16 20:37: Bedside Glucose (Misc Panel) 364H 11/24/16 05:28: Anion Gap 7L, Glomerular Filtration Rate 35.0L, Blood Urea Nitrogen 25H, Creatinine 1.55H, Sodium Level 139, Potassium Level 4.9, Chloride Level 102, Carbon Dioxide Level 30, Calcium Level 8.3L, Aspartate Amino Transf (AST/SGOT) 36, Alanine Aminotransferase (ALT/SGPT) 36, Alkaline Phosphatase 84, Total Bilirubin 0.3, Total Protein 6.1L, Albumin 2.9L, Magnesium Level 2.4, Albumin/ Globulin Ratio 0.91L 11/24/16 12:05: Bedside Glucose (Misc Panel) 482H CBC/BMP Laboratory Tests 11/24/16 05:28 Red Blood Count 3.68 L, Mean Corpuscular Volume 74.4 L, Mean Corpuscular Hemoglobin 21.7 L, Mean Corpuscular Hemoglobin Concent 29.2 L, Red Cell Distribution Width 20.7 H, Calcium Level 8.3 L, Aspartate Amino Transf (AST/SGOT ) 36, Alanine Aminotransferase (ALT/SGPT) 36, Alkaline Phosphatase 84, Total Bilirubin 0.3, Total Protein 6.1 L, Albumin 2.9 L FSBS Laboratory Tests Test 11/23/16 16:45 11/23/16 20:37 11/24/16 12:05 Range/Units Bedside Glucose (Misc Panel) 311 364 482 83-110 MG/DL Microbiology Microbiology 11/18/16 Blood Culture - Final, Complete NO GROWTH AFTER 5 DAYS 11/17/16 Blood Culture - Final, Complete NO GROWTH AFTER 5 DAYS 11/21/16 Stool Occult Blood (GORDY) - Final, Complete 11/18/16 Influenza Virus Type A Antigen - Final, Complete 11/18/16 Influenza Virus Type B Antigen - Final, Complete 11/18/16 Respiratory Virus Panel (PCR) (GORDY) - Final, Complete 11/17/16 Urine Culture - Final, Complete Escherichia Coli Discharge Medications Scheduled (Amitiza) 24 Mcg Cap, 24 MCG PO QHS, (Reported) (Incruse Ellipta) 62.5 Mcg/Inh Inh, 62.5 MCG INH DAILY, (Reported) Allopurinol (Zyloprim) 300 Mg Tab, 300 MG PO DAILY, (Reported) Ammonium Lactate (Ammonium Lactate) 12 % Cre, 1 DOSE TOP BID, (Reported) APPLY TO LEGS AND FEET Aspirin (Aspirin 81) 81 Mg Tab, 81 MG PO DAILY, (Reported) Bisoprolol Fumarate (Bisoprolol Fumarate) 5 Mg Tab, 2.5 MG PO DAILY, (Reported) Colchicine (Colchicine) 0.6 Mg Tab, 0.6 MG PO DAILY, (Reported) Cranberry Extract (Cranberry) 500 Mg Cap, 500 MG PO TID, (Reported) Docusate Sodium (Docusate Sodium) 100 Mg Cap, 100 MG PO BID, (Reported) Ergocalciferol (Vitamin D) 50,000 Unit Cap, 50,000 UNIT PO MTHLY, (Reported) TAKES ON 1ST OF THE MONTH Fluoxetine Hcl (Fluoxetine) 20 Mg Cap, 20 MG PO DAILY, (Reported) TAKES AT NOON Insulin Aspart (Novolog) 100 U/Ml Inj, 16 UNITS SC AC, (Reported) Insulin Human Regular (Humulin R U-500 Kwikpen) 500 Unit/Ml Inj, 50 UNIT SC AC, (Reported) Ketoconazole (Ketoconazole) 1 Dose/15 Gm Cream, 1 DOSE TOP BID, (Reported) APPLIES TO UPPER LEGS Lactulose (Lactulose) 10 Gm/15 Ml Radha, 30 ML PO BID, (Reported) MIX WITH JUICE Levetiracetam (Keppra) 250 Mg Tab, 750 MG PO BID Levofloxacin Hemihydrate (Levaquin) 250 Mg Tab, 250 MG PO DAILY@06 Metoclopramide HCl (Reglan) 10 Mg Tab, 10 MG PO TID, (Reported) Omeprazole (Omeprazole) 20 Mg Cap, 20 MG PO BID, (Reported) Ondansetron HCl (Ondansetron HCl) 4 Mg Tab, 4 MG PO QID, (Reported) Potassium Chloride (Klor-Con M10) 10 Meq Tabcr, 20 MEQ PO DAILY, (Reported) Pregabalin (Lyrica) 100 Mg Cap, 100 MG PO TID, (Reported) Senna (Senokot) 8.6 Mg Tab, 2 TAB PO BID, (Reported) Spironolactone (Spironolactone) 25 Mg Tab, 25 MG PO BID, (Reported) Sucralfate (Sucralfate) 1 Gm Tab, 1 GM PO BID, (Reported) Torsemide (Torsemide) 100 Mg Tab, 50 MG PO BID, (Reported) Scheduled PRN (Vagisil Maximum Strength) 1 % Mis, 1 DOSE PV BID PRN for ITCHING, (Reported) Acetaminophen (Tylenol 8 Hour Arthritis) 650 Mg Tab, 650 MG PO Q8H PRN for PAIN, (Reported) Albuterol/Ipratropium (Ipratropium [place]/Albut 0.5-2.5 (3) mg/3Ml) 1 Radha Radha, 1 RADHA INH QID PRN for SHORTNESS OF BREATH, (Reported) Betamethasone Mala (Betamethasone Valerate) 1 Dose/15 Gm Cream, 1 DOSE TOP QHS PRN for HOT SPOTS, (Reported) USES ON LEGS FOR HOT SPOTS RELATED TO DIABETES Milk Of Magnesia (Milk of Magnesia) 1,200 Mg/15 Ml Esperanza, 30 ML PO DAILY PRN for CONSTIPATION, (Reported) Nystatin (Nystatin Powder) 100,000 Unit/Gm Pow, 1 DOSE TOP BID PRN for RASH, ( Reported) PLACES UNDER BREASTS Scopolamine (Transderm-Scop) 1.5 Mg Dis, 1.5 MG TOP Q72H PRN for NAUSEA, ( Reported) APPLIED BEHIND RIGHT EAR Allergies Coded Allergies: Cephalosporins (Verified Allergy, Intermediate, KEFLEX - HIVES, 08/05/16) Chlorpromazine (Verified Allergy, Intermediate, HIVES, 08/05/16) Loratadine (Verified Allergy, Intermediate, HIVES, 08/05/16) Penicillins (Verified Allergy, Intermediate, HIVES, 08/05/16) Pentazocine (Verified Allergy, Intermediate, HIVES, 08/05/16) Sulfa Antibiotics (Unverified Allergy, Intermediate, HIVES, 08/05/16) Iodine (Verified Allergy, Unknown, 08/05/16) Methadone (Verified Allergy, Unknown, 08/05/16) Fluticasone (Verified Adverse Reaction, Mild, THRUSH, 08/05/16) Latex (Verified Adverse Reaction, Mild, RISK, 08/05/16) Salmeterol (Verified Adverse Reaction, Mild, THRUSH, 08/05/16) KEARA MCGHEE MD Nov 24, 2016 15:05
--- NOTE | 2016-11-24 16:21 | REP ---
MR LUMBAR SPINE WITHOUT CONTRAST: HISTORY: Back pain. Decreased signal intensity on T2 weighted images is present in the L2-3 through L4-5 intervertebral discs. The discs are decreased in height. These findings are consistent with disc degeneration. There is no disc bulge or herniation at the L1-2 and L5-S1 levels. There is hypertrophy of the posterior articulating facets at the L5-S1 level. The nerves exit the neural foramina without compression. A diffuse disc bulge is present at the L2-3 level. There is hypertrophy of the ligamenta flava and posterior articulating facet. These findings produce minimal central stenosis. The L2 nerves exit the neural foramina without compression. A diffuse disc bulge is present at the L3-4 level. There is hypertrophy of the ligamenta flava and posterior articulating facets. These findings produce minimal central canal stenosis. The L3 nerves exit the neural foramina without compression. A diffuse disc bulge is present at the L4-5 level. There is hypertrophy of the ligamenta flava and posterior articulating facets. These findings produce mild central canal stenosis. The L4 nerves exit the neural foramina without compression. The conus medullaris is normal in appearance terminating at the level of the T12-L1 intervertebral disc. A hemangioma is present in the L3 vertebral body. Increased signal intensity on T2 weighted images is present in the inferior endplate of the L4 vertebral body. This represents degenerative change. IMPRESSION: 1. Minimal central canal stenosis at the L2-3 and L3-4 levels secondary to disc bulge, ligamentous and facet hypertrophy. 2. Mild central canal stenosis at the L4-5 level secondary to disc bulge, ligamentous, and facet hypertrophy. Signed by Vinnie Wade MD 11/24/2016 04:24 P
[2016-11-25 14:13] LABS: ACETYLCHOLINE RCPTOR BINDING A < 0.03 nmol/L (0.00-0.24); ACETYLCHOLINE RCPTOR BLOCK AB 19 % (0-25)
[2016-12-03] MEDS ORDERED: VITAMIN D 50,000 UNITS CAPSULE (ERGOCALCIFEROL 1.25MG) PO SCH (09:00)
[2017-01-29] MEDS ORDERED: CIPR-249 PO (18:51)
[2017-01-29] MEDS ORDERED: PRED10TA2 PO (18:53)
== END 2016-11-24 13:56 | disposition home health service (06) | DRG 690 ==
LOC: M ED 16:58 → M ED INP 11-18 00:49 → M MS5PR 11-18 02:50 → OBSVTOIN 11-18 08:09 → M PCU 11-18 15:55 → M MS5PR 11-18 16:13 → M PCU 11-18 17:10
PROVIDERS: ADMIT Internal Medicine; ATTEND Internal Medicine
PROC: 30233N1 Transfusion of Nonautologous Red Blood Cells into Peripheral Vein, Percutaneous Approach (ICD-10-PCS; principal; 2016-11-19)
DX: N39.0 Urinary tract infection, site not specified (principal); J96.11 Chronic respiratory failure with hypoxia; N17.9 Acute kidney failure, unspecified; I50.30 Unspecified diastolic (congestive) heart failure; N18.3 Chronic kidney disease, stage 3 (moderate); R53.83 Other fatigue; E66.01 Morbid (severe) obesity due to excess calories; D64.9 Anemia, unspecified; G40.909 Epilepsy, unspecified, not intractable, without status epilepticus; M10.9 Gout, unspecified; G47.33 Obstructive sleep apnea (adult) (pediatric); J44.9 Chronic obstructive pulmonary disease, unspecified; E11.65 Type 2 diabetes mellitus with hyperglycemia; M54.5 Low back pain; Z79.899 Other long term (current) drug therapy; Z88.0 Allergy status to penicillin; Z88.8 Allergy status to other drugs, medicaments and biological substances; Z88.2 Allergy status to sulfonamides; Z91.040 Latex allergy status; F32.9 Major depressive disorder, single episode, unspecified; K21.9 Gastro-esophageal reflux disease without esophagitis; J98.6 Disorders of diaphragm; Z79.4 Long term (current) use of insulin; Z79.82 Long term (current) use of aspirin; E11.40 Type 2 diabetes mellitus with diabetic neuropathy, unspecified; Z96.641 Presence of right artificial hip joint

== ENCOUNTER 2016-12-11 14:27 | Inpatient (IN) | payer MEDICARE, MEDICAID ==
[~2016-12-11] VITALS: Ht 170.2 cm; Wt 113.3 kg
[~2016-12-11 14:27] MED LIST changes: +ALLO15TA GT; +CLEO300C2 PO; +KEPP250T5 PO; +POTA50TAB PO; +SPIR25TA2 PO; +ZYLO300T4 PO
[2016-12-11] MEDS ORDERED: TOUJ1.2I SC (14:46)
[2016-12-11] MEDS ORDERED: DULO30CA PO (14:46)
[2016-12-11] MEDS: NS 1,000 ML IV SCH ×2 (16:10→23:15)
--- NOTE | 2016-12-11 16:11 | REP ---
Clinical: Altered mental status. Comparison: 11/17/2016, 08/20/2015 . Findings: Age-related atrophy and microvascular ischemic changes are appreciated. Small old right parietal lobe infarction unchanged compared to 08/20/2015. The ventricles and sulci are symmetric. Mesa-white differentiation is maintained. There is no evidence for acute intracranial hemorrhage, mass/mass effect, pathology or infarction. No extra-axial fluid collection. Calvarium is intact. Paranasal sinuses and mastoid air cells are clear. Impression: Age related atrophy and microvascular ischemic changes. No acute intracranial hemorrhage, infarction, or mass/mass effect. Signed by Ramos Chaparro MD 12/11/2016 04:03 P
--- NOTE | 2016-12-11 16:14 | REP ---
Clinical: Altered mental status. Comparison: 11/17/2016. Findings: [id number] identified with tip in the SVC. Cardiomegaly cannot be excluded. The lung diaz demonstrate chronic interstitial changes and superimposed basilar atelectasis cannot be excluded. No definite effusion. No pneumothorax. Skeletal structures stable. Impression: Chronic stable changes. Limited by portable technique. Cannot exclude basilar atelectasis. Signed by Ramos Chaparro MD 12/11/2016 04:05 P
[2016-12-11 16:16] LABS: ADD MANUAL DIFFER YES; MEAN CORPUSCULAR HEMOGLOBIN 20.4 pg (27.0-33.0); MEAN CORPUSCULAR HGB CONC 27.7 g/dl (32.0-36.5); MEAN CORPUSCULAR VOLUME 73.9 fl (80.0-96.0); PLATELET COUNT, AUTOMATED 295 k/mm3 (150-450); RED CELL DISTRIBUTION WIDTH 20.2 % (11.5-14.5); WHITE BLOOD COUNT 6.8 K/mm3 (4.0-10.0)
[2016-12-11 16:35] LABS: BASOPHILS 1 % (0-4); EOSINOPHILS 11 % (0-5)
[2016-12-11 16:36] LABS: ANISOCYTOSIS 2+; MICROCYTOSIS 2+
[2016-12-11 16:37] LABS: HYPOCHROMASIA 2+
[2016-12-11 16:49] LABS: ALBUMIN 3.3 GM/DL (3.2-5.2); ALBUMIN/GLOBULIN RATIO 0.83 (1.00-1.93); ALKALINE PHOSPHATASE 101 U/L (45-117); ALT/SGPT 42 U/L (12-78); ANION GAP 8 MEQ/L (8-16); AST/SGOT 41 U/L (15-37); BILIRUBIN,DIRECT < 0.1 MG/DL (0.0-0.2); BILIRUBIN,TOTAL 0.3 MG/DL (0.2-1.0); BLOOD UREA NITROGEN 26 MG/DL (7-18); CALCIUM LEVEL 9.3 MG/DL (8.8-10.2); CARBON DIOXIDE LEVEL 31 MEQ/L (21-32); CHLORIDE LEVEL 104 MEQ/L (98-107); CREATININE FOR GFR 1.51 MG/DL (0.55-1.02); GLOMERULAR FILTRATION RATE 36.1 (>39); GLUCOSE, FASTING 175 MG/DL (83-110); POTASSIUM SERUM 3.5 MEQ/L (3.5-5.1); SODIUM LEVEL 143 MEQ/L (136-145); TOTAL PROTEIN 7.3 GM/DL (6.4-8.2)
[2016-12-11] MEDS ORDERED: CIPROFLOXACIN 400 MG in APPROPRIATE DILUENT 1 EA IV ONE (17:45)
[2016-12-11] MEDS ORDERED: AMMO12CR4 TOP (18:55)
[2016-12-11] MEDS ORDERED: LEVE250T5 PO (18:55)
[2016-12-11] MEDS ORDERED: FLUC150T PO (18:55)
[2016-12-11] MEDS ORDERED: GLUCOSE 4 GM CHEW TABLET PO PRN (19:00)
[2016-12-11] MEDS ORDERED: DEXTROSE 50% 50 ML SYRINGE IV PRN (19:00)
[2016-12-11] MEDS ORDERED: GLUCAGON FOR INJ 1 MG VIAL (J1610) SC PRN (19:00)
[2016-12-11] MEDS ORDERED: ONDANSETRON 4MG/2ML VIAL (J2405) IV PRN (19:00)
[2016-12-11] MEDS ORDERED: IPRATROPIUM 0.5MG/ALBUTEROL 2.5MG INH SOL UD 3ML (DUONEB)(J7620) NEB PRN (19:00)
[2016-12-11] MEDS ORDERED: BETAMETHASONE VAL 0.1% CR 15 GM TOP PRN (19:30)
[2016-12-11] MEDS ORDERED: SCOPOLAMINE 1.5 MG TRANSDERMAL TOP PRN (19:30)
--- NOTE | 2016-12-11 19:45 | HPEPDOC ---
General Date of Admission 12/11/16 Primary Care Physician: Jr Villalobos Collins Attending Physician: GARRICK ZARATE MD Chief Complaint The patient is a 71-year-old female admitted with a reason for visit of Diffculty Breathing. History of Present Illness 71-year-old female with past medical history of insulin-dependent diabetes crane , asthma, MATT, obesity, hypoventilation syndrome, chronic hypoxic respiratory failure, paralysis of the right hemidiaphragm, morbid obesity, gout, migraine headaches, seizure disorder, hypertension, GERD, depression, CKD stage IIIB, and DVT status post IVC filter who is frequently admitted to the hospitalist service presented to the ER with her with a chief complaint of increased drowsiness/alteration in mental status over the last 24 hours. The extent of this HPI was obtained from the patient's , given the patient's current presentation. He states, that the patient has been more tired and lethargic over the last 24 hours. He denies noting any fevers or complaints of chest pain, palpitations, shortness of breath, abdominal pain, or any nausea/ vomiting/diarrhea. Of note, the patient's does state that the patient has had multiple medication changes over the last 1 week. She was recently started on duloxetine on 12/07 by neurology for her peripheral neuropathy. In addition, the patient was restarted on her baclofen therapy as well. He does state, the patient became more lethargic and fatigued in the past while on baclofen, hence the reason why it was stopped. In the ER, a CT scan of the head revealed no acute findings. The patient's urinalysis was notable for positive leukocyte esterace, and white blood cells in the urine. Given the patient's frequent urinary tract infections, and inability to obtain a meaningful history, the patient will be empirically treated for possible underlying UTI. The patient will be admitted to the hospitalist service for further evaluation and management of alteration in mental status. Home Medications Scheduled (Amitiza) 24 Mcg Cap, 24 MCG PO QHS, (Reported) (Toujeo Solostar) 300 Unit/Ml Inj, 75 UNITS SC BID, (Reported) Allopurinol (Zyloprim) 300 Mg Tab, 300 MG PO DAILY, (Reported) Ammonium Lactate (Ammonium Lactate) 12 % Cre, 1 DOSE TOP BID, (Reported) Aspirin (Aspirin 81) 81 Mg Tab, 81 MG PO DAILY, (Reported) Bisoprolol Fumarate (Bisoprolol Fumarate) 5 Mg Tab, 2.5 MG PO DAILY, (Reported) Colchicine (Colchicine) 0.6 Mg Tab, 0.6 MG PO DAILY, (Reported) Cranberry Extract (Cranberry) 500 Mg Cap, 500 MG PO TID, (Reported) Docusate Sodium (Docusate Sodium) 100 Mg Cap, 100 MG PO BID, (Reported) Duloxetine Hcl (Cymbalta) 30 Mg Cap, 30 MG PO BID, (Reported) Ergocalciferol (Vitamin D) 50,000 Unit Cap, 50,000 UNIT PO MTHLY, (Reported) TAKES ON 1ST OF THE MONTH Fluoxetine Hcl (Fluoxetine) 20 Mg Cap, 20 MG PO DAILY, (Reported) TAKES AT NOON Insulin Aspart (Novolog) 100 U/Ml Inj, 1 DOSE SC AC, (Reported) PER SLIDING SCALE Lactulose (Lactulose) 10 Gm/15 Ml Radha, 30 ML PO BID, (Reported) MIX WITH JUICE Levetiracetam (Levetiracetam) 250 Mg Tab, 750 MG PO BID, (Reported) Metoclopramide HCl (Reglan) 10 Mg Tab, 10 MG PO TID, (Reported) Omeprazole (Omeprazole) 20 Mg Cap, 20 MG PO BID, (Reported) Ondansetron HCl (Ondansetron HCl) 4 Mg Tab, 4 MG PO QID, (Reported) Potassium Chloride (Klor-Con M10) 10 Meq Tabcr, 20 MEQ PO DAILY, (Reported) Pregabalin (Lyrica) 100 Mg Cap, 100 MG PO TID, (Reported) Senna (Senokot) 8.6 Mg Tab, 2 TAB PO BID, (Reported) Spironolactone (Spironolactone) 25 Mg Tab, 25 MG PO BID, (Reported) Sucralfate (Sucralfate) 1 Gm Tab, 1 GM PO BID, (Reported) Torsemide (Torsemide) 100 Mg Tab, 50 MG PO BID, (Reported) Scheduled PRN (Vagisil Maximum Strength) 1 % Mis, 1 DOSE PV BID PRN for ITCHING, (Reported) Acetaminophen (Tylenol 8 Hour Arthritis) 650 Mg Tab, 650 MG PO Q8H PRN for PAIN, (Reported) Albuterol/Ipratropium (Ipratropium [place]/Albut 0.5-2.5 (3) mg/3Ml) 1 Radha Radha, 1 RADHA INH QID PRN for SHORTNESS OF BREATH, (Reported) Betamethasone Mala (Betamethasone Valerate) 1 Dose/15 Gm Cream, 1 DOSE TOP QHS PRN for HOT SPOTS, (Reported) USES ON LEGS FOR HOT SPOTS RELATED TO DIABETES Fluconazole (Fluconazole) 150 Mg Tab, 150 MG PO DAILY PRN for YEAST INFECTION, ( Reported) Milk Of Magnesia (Milk of Magnesia) 1,200 Mg/15 Ml Esperanza, 30 ML PO DAILY PRN for CONSTIPATION, (Reported) Nystatin (Nystatin Powder) 100,000 Unit/Gm Pow, 1 DOSE TOP BID PRN for RASH, ( Reported) PLACES UNDER BREASTS Scopolamine (Transderm-Scop) 1.5 Mg Dis, 1.5 MG TOP Q72H PRN for NAUSEA, ( Reported) Allergies Coded Allergies: Cephalosporins (Verified Allergy, Intermediate, KEFLEX - HIVES, 12/11/16) Chlorpromazine (Verified Allergy, Intermediate, HIVES, 12/11/16) Loratadine (Verified Allergy, Intermediate, HIVES, 12/11/16) Penicillins (Verified Allergy, Intermediate, HIVES, 12/11/16) Pentazocine (Verified Allergy, Intermediate, HIVES, 12/11/16) Sulfa Antibiotics (Unverified Allergy, Intermediate, HIVES, 12/11/16) Iodine (Verified Allergy, Unknown, 12/11/16) Methadone (Verified Allergy, Unknown, 12/11/16) Fluticasone (Verified Adverse Reaction, Mild, THRUSH, 12/11/16) Latex (Verified Adverse Reaction, Mild, RISK, 12/11/16) Salmeterol (Verified Adverse Reaction, Mild, THRUSH, 12/11/16) Past Medical History Medical History As noted in HPI. Family History Significant Family History: No pertinent family hx Social History * Smoker: Denies Alcohol: Denies Drugs: denies Review of Symptoms Other systems 10 point review of systems negative unless otherwise specified in HPI. Physical Examination General Exam: Positive: No Acute Distress, Other (Patient appears drowsy, answering some questions appropriately, oriented to person, place but not time) ENT Exam: Positive: Atraumatic, Mucous membr. moist/pink Neck Exam: Negative: JVD Chest Exam: Positive: Diminished Heart Exam: Positive: Rate Normal, Normal S1, Normal S2 Abdomen Exam: Positive: Soft, Negative: Tenderness Extremity Exam: Positive: Swelling (1+ pitting edema in the L/E B/L), Negative: Tenderness Vital Signs Vital Signs Date Time Temp Pulse Resp B/P (MAP) Pulse Ox O2 Delivery O2 Flow Rate FiO2 12/11/16 18:28 80 136/64 (88) 99 12/11/16 14:28 97.9 16 Nasal Cannula 2.0 Laboratory Data Labs 24H Laboratory Tests 2 12/11/16 14:56: Bedside Glucose (Misc Panel) 204H 12/11/16 15:39: Neutrophils 56, Lymphocytes (Manual) 26, Monocytes (Manual) 6, Eosinophils ( Manual) 11H, Basophils (Manual) 1, Platelet Estimate NORMAL, Hypochromasia 2+, Anisocytosis 2+, Microcytosis 2+, Urine Appearance CLEAR, Urine Color YELLOW, Urine pH 6.0, Urine Specific [place] 1.008, Urine Protein NEGATIVE, Urine Glucose (UA) NEGATIVE, Urine Ketones NEGATIVE, Urine Urobilinogen 0.2, Urine Bilirubin NEGATIVE, Urine Leukocyte Esterase 2+H, Urine Blood NEGATIVE, Urine Nitrite NEGATIVE, Urine WBC (Auto) 26H, Urine RBC (Auto) 3, Urine Hyaline Casts (Auto) 0, Urine Bacteria (Auto) 1+H, Urine Squamous Epithelial Cells 1, Urine Sperm (Auto) , Anion Gap 8, Glomerular Filtration Rate 36.1L, Calcium Level 9.3 , Aspartate Amino Transf (AST/SGOT) 41H, Alanine Aminotransferase (ALT/SGPT) 42 , Alkaline Phosphatase 101, Total Bilirubin 0.3, Direct Bilirubin < 0.1, Total Creatine Kinase 31, Creatine Kinase MB 1.0, Creatine Kinase MB Relative Index 3.22, Troponin I < 0.02, Total Protein 7.3, Albumin 3.3, Albumin/Globulin Ratio 0.83L, Thyroid Stimulating Hormone (TSH) 1.750 CBC/BMP Laboratory Tests 12/11/16 15:39 Red Blood Count 4.28, Mean Corpuscular Volume 73.9 L, Mean Corpuscular Hemoglobin 20.4 L, Mean Corpuscular Hemoglobin Concent 27.7 L, Red Cell Distribution Width 20.2 H Microbiology Microbiology 12/11/16 Blood Culture, Received Pending 12/11/16 Blood Culture, Received Pending 12/11/16 Urine Culture, Received Pending Plan / VTE VTE Prophylaxis Ordered?: Yes Plan Plan Alteration in mental status CT scan of the head with no acute findings Urinalysis notable for positive leukocyte esterace, and white blood cells in the urine. Given the patient's frequent urinary tract infections, and inability to obtain a meaningful history, the patient will be empirically treated for possible underlying UTI, as this may be a causative factor of her mental alteration. Blood cultures, urine culture ordered We will start the patient on meropenem based on susceptibilities of previous urine cultures (E. Coli, Pseudomonas) In addition, we will withhold the patient's newly started duloxetine for peripheral neuropathy--- as this does have side effects of drowsiness/fatigue. We will hold all other sedatives. TSH within normal limits, ammonia level ordered We will order an ABG to rule out possible underlying CO2 retention We will continue to monitor the patient's clinical condition Chronic Hypoxia 2/2 Multifactorial Etiology The patient does have underlying obstructive sleep apnea, obesity hypoventilation syndrome, and a paralyzed hemidiaphragm. CXR noted--No overt infectious pulmonary source evident She does follow with Dr. Del Cid Diastolic congestive heart failure, stable Last echocardiogram notable for an left ventricular ejection fraction of 60% Continue patient on torsemide and spironolactone Stage IIIB chronic kidney disease Serum creatinine appears to be her baseline Hypertension, stable Continue current regimen Irritable bowel syndrome Continue bowel regimen Gastroesophageal reflux disease Continue patient on Prilosec Gout Continue Allopurinol Obstructive sleep apnea May use home CPAP machine Chronic low back pain Continue Lyrica DVT prophylaxis Heparin SC Prognosis; Chcf Prognosis poor--I did discuss the patient's overall clinical condition with the patient's extensively at the bedside. My concern with the patient is that she is had 10 admissions over the last 9 months. I do believe that the patient would benefit from placement in a [place] [facility] [place] where her tenuous clinical condition can be more closely monitored. The patient will be admitted to the service of Dr. Zarate, who will begin to follow the patient on 12/12/16 at 7 AM. ANGELA GIBSON MD Dec 11, 2016 19:45
[2016-12-11 20:09] LABS: ABG BASE EXCESS 4.1 (-2.0-2.0); ABG HCO3 29.6 MEQ/L (22.0-26.0); ABG PARTIAL PRESSURE CO2 49.2 mmHg (35.0-45.0); ABG PARTIAL PRESSURE O2 97.3 mmHg (75.0-100.0); ABG STANDARD HCO3 28.2 MEQ/L (22.0-26.0); ABG TOTAL CO2 31.1 MEQ/L (23.0-31.0); ABG pH (ARTERIAL) 7.397 UNITS (7.350-7.450)
[2016-12-11] MEDS: HumaLOG INSULIN (NovoLOG) PER UNIT SC SCH (21:00)
[2016-12-11 21:54] VITALS: BP 141/81
[2016-12-11] MEDS: DOCUSATE SODIUM 100 MG CAP PO SCH (22:21)
[2016-12-11] MEDS: SENOKOT S TAB PO SCH (22:21)
[2016-12-11] MEDS: SUCRALFATE 1 GM TAB PO SCH (22:21)
[2016-12-11] MEDS: OMEPRAZOLE 20 MG CAP PO SCH (22:21)
[2016-12-11] MEDS: ACETAMINOPHEN TAB 650MG DOSE (2X325MG) PO PRN (22:21)
[2016-12-11] MEDS: PREGABALIN 100 MG CAP (LYRICA) PO SCH (22:21)
[2016-12-11] MEDS: SPIRONOLACTONE 25 MG TAB PO SCH (22:22)
[2016-12-11] MEDS: LACTULOSE 20 GM/30 ML SYRUP UD PO SCH (22:23)
[2016-12-11] MEDS: TORSEMIDE (DEMADEX) 50 MG PER 1/2 TAB PO SCH (22:44)
[2016-12-11] MEDS: MEROPENEM INJ 1 GM in D5W MINI-BAG PLUS 100 ML IV SCH (22:45)
[2016-12-11] MEDS: LACTIC ACID 12% LOTION 225 GM BTL TOP SCH (22:46)
[2016-12-11 23:59] VITALS: BP 133/58
[2016-12-12 04:00] VITALS: BP 144/62
[2016-12-12] MEDS: SODIUM CHLORIDE 0.9% INJ 10 ML SYR IV PRN (04:19)
[2016-12-12] MEDS: ACETAMINOPHEN TAB 650MG DOSE (2X325MG) PO PRN ×3 (04:19→22:00)
[2016-12-12 04:47] LABS: MEAN CORPUSCULAR HEMOGLOBIN 19.9 pg (27.0-33.0); MEAN CORPUSCULAR HGB CONC 27.1 g/dl (32.0-36.5); MEAN CORPUSCULAR VOLUME 73.7 fl (80.0-96.0); WHITE BLOOD COUNT 5.4 K/mm3 (4.0-10.0)
[2016-12-12 05:16] LABS: ALBUMIN 3.2 GM/DL (3.2-5.2); ALBUMIN/GLOBULIN RATIO 1.07 (1.00-1.93); BILIRUBIN,TOTAL 0.3 MG/DL (0.2-1.0); CALCIUM LEVEL 8.7 MG/DL (8.8-10.2); CREATININE FOR GFR 1.41 MG/DL (0.55-1.02); MAGNESIUM LEVEL 2.1 MG/DL (1.8-2.4); POTASSIUM SERUM 3.5 MEQ/L (3.5-5.1); TOTAL PROTEIN 6.2 GM/DL (6.4-8.2)
[2016-12-12] MEDS: HEPARIN SOD (PORCINE) 5000 UNITS/ML VIAL SC SCH ×3 (06:28→21:47)
[2016-12-12] MEDS: HumaLOG INSULIN (NovoLOG) PER UNIT SC SCH ×4 (07:30→21:46)
[2016-12-12 08:00] VITALS: BP 159/70
[2016-12-12] MEDS: LACTULOSE 20 GM/30 ML SYRUP UD PO SCH ×2 (08:47→21:45)
[2016-12-12] MEDS: MEROPENEM INJ 1 GM in D5W MINI-BAG PLUS 100 ML IV SCH ×2 (08:47→21:48)
[2016-12-12] MEDS: ASPIRIN 81 MG ENTERIC TAB PO SCH (08:48)
[2016-12-12] MEDS: DOCUSATE SODIUM 100 MG CAP PO SCH ×2 (08:48→21:47)
[2016-12-12] MEDS: OMEPRAZOLE 20 MG CAP PO SCH ×2 (08:48→21:47)
[2016-12-12] MEDS: TORSEMIDE (DEMADEX) 50 MG PER 1/2 TAB PO SCH ×2 (08:48→21:47)
[2016-12-12] MEDS: POTASSIUM CHLORIDE 10 MEQ SR TABLET PO SCH (08:48)
[2016-12-12] MEDS: SPIRONOLACTONE 25 MG TAB PO SCH ×2 (08:48→21:47)
[2016-12-12] MEDS: SUCRALFATE 1 GM TAB PO SCH ×2 (08:48→21:47)
[2016-12-12] MEDS: SENOKOT S TAB PO SCH ×2 (08:49→21:47)
[2016-12-12] MEDS: PREGABALIN 100 MG CAP (LYRICA) PO SCH ×3 (08:49→21:47)
[2016-12-12] MEDS: ALLOPURINOL 300 MG TAB PO SCH (08:49)
[2016-12-12] MEDS: BISOPROLOL FUMARATE 5 MG TAB PO SCH ×2 (08:49→08:52)
[2016-12-12] MEDS: COLCHICINE 0.6 MG TAB PO SCH (08:52)
[2016-12-12] MEDS: LACTIC ACID 12% LOTION 225 GM BTL TOP SCH ×2 (09:00→21:00)
[2016-12-12] MEDS: SODIUM CHLORIDE 0.9% INJ 10 ML SYR IV SCH (09:43)
[2016-12-12 12:00] VITALS: BP 141/88
--- NOTE | 2016-12-12 13:44 | IPN ---
DATE: 12/12/2016 SUBJECTIVE: This morning, the patient tells me that she feels okay. She is oriented to person, but she cannot tell me where she is. She tells me it is 2016. She knows that Jayce Roberts is president but otherwise with questions of orientation, she just tells me she does not know it and is not willing to make any guesses. She denies any specific complaints. OBJECTIVE: VITAL SIGNS: Temperature 98.2, pulse 58, respiratory rate 19, blood pressure 159/70, oxygen saturation 97% on full face bilevel positive airway pressure (BiPAP). GENERAL: She is a super morbidly obese female laying flat in bed. She does not appear to be in any acute distress whatsoever. HEENT: Cranial nerves II-XII are grossly intact. She has moist mucous membranes. No elevation of central venous pressure (CVP) but difficult to assess secondary to body habitus. CARDIOVASCULAR EXAM: S1, S2, regular. RESPIRATORY EXAM: Actually fairly clear with good air movement noted. Breath sounds are distant secondary to body habitus. ABDOMINAL EXAM: Grossly obese but there is no tenderness. EXTREMITIES: Trace edema bilaterally. LABORATORY STUDIES: WBC 5.4, hemoglobin 8.1, platelet count 264. Chemistry panel: Sodium 144, potassium 3.5, chloride 104, bicarbonate 32, BUN 23, creatinine 1.4. Ammonia and TSH level within normal limits. She had a slightly elevated AST, persistently elevated to 41. She had an arterial blood gas with a pH of 7.3, pCO2 of 49.2 and a pO2 of 97.3. UA is abnormal with 2+ leukocyte esterase, 26 WBCs and 1+ bacteria. Blood culture and urine cultures were drawn and pending. IMAGING: The patient had a chest x-ray that revealed chronic stable changes. Can not exclude basilar atelectasis. Limited by portable technique. She also had a CT scan of the head, which revealed age-related atrophy and microvascular ischemic changes. No acute intracranial hemorrhage, infarction or mass/mass effect. ASSESSMENT AND PLAN: This is a 71-year-old female who presented with metabolic encephalopathy. Problems: 1. Metabolic encephalopathy in the setting of an abnormal urinalysis. She is currently on antibiotics with meropenem, which we will continue and closely monitor for the next 24-48 hours and followup her cultures. There is also the possibility that this is a medication adverse effect. She has reportedly had similar effect when she had been on baclofen in the past and she was recently restarted on this. If it is due to adverse reaction to this medication or to duloxetine, which is also a new recent medication, these both have been discontinued. I suspect that it should improve over the next 24-48 hours. Will monitor closely. 2. Chronic hypoxic respiratory failure, multifactorial in nature. She has a paralyzed right hemidiaphragm, obesity hypoventilation syndrome, obstructive sleep apnea. She does appear to be at her baseline respiratory status at this time. She normally follows with Dr. Del Cid as an outpatient. 3. Diastolic congestive heart failure with preserved ejection fraction. She was continued on her torsemide and Aldactone. I will discontinue her intravenous (IV ) fluids. She appears to be fairly euvolemic at the present time. 4. Chronic kidney disease, stable, at baseline. She will be continued on her diuretics. 5. Irritable bowel syndrome. Continue with her Senokot, lactulose, Colace as needed. 6. Gout. The patient is on allopurinol and Colcrys. 7. Hypertension. Her blood pressure is controlled. She was continued on bisoprolol and torsemide and Aldactone. Will place holding parameters on these. 8. Gastroesophageal reflux disease. The patient is on Carafate and omeprazole. 9. Seizure disorder. The patient is on Lyrica. 10. Obstructive sleep apnea. She is compliant with continuous positive airway pressure (CPAP) and using her mask. 11. Chronic back pain. She is on Lyrica. Would avoid any sedating narcotics. 12. Deep vein thrombosis (DVT) prophylaxis. The patient is on subcutaneous heparin. PROGNOSIS: Long-term prognosis is quite poor. She has frequent hospitalizations. If her metabolic encephalopathy does not improve, will continue to evaluate and rule out other etiologies. I suspect the patient would be better served by alf placement as she has demonstrated on numerous occasions her inability to live outside of the hospital for any sustainable length of time but does do quite well when she is hospitalized. JOSE R
[2016-12-12 20:25] VITALS: BP 147/65
[2016-12-12 23:45] VITALS: BP 134/61
[2016-12-13 05:30] VITALS: BP 137/63
[2016-12-13] MEDS: HEPARIN SOD (PORCINE) 5000 UNITS/ML VIAL SC SCH ×3 (06:25→21:15)
[2016-12-13] MEDS: SODIUM CHLORIDE 0.9% INJ 10 ML SYR IV PRN (06:26)
[2016-12-13 07:43] LABS: MEAN CORPUSCULAR HEMOGLOBIN 20.5 pg (27.0-33.0); MEAN CORPUSCULAR HGB CONC 27.6 g/dl (32.0-36.5); MEAN CORPUSCULAR VOLUME 74.2 fl (80.0-96.0); RED CELL DISTRIBUTION WIDTH 20.2 % (11.5-14.5); WHITE BLOOD COUNT 5.1 K/mm3 (4.0-10.0)
[2016-12-13 08:00] VITALS: BP 140/64
[2016-12-13 08:16] LABS: ALBUMIN 2.9 GM/DL (3.2-5.2); ALBUMIN/GLOBULIN RATIO 0.97 (1.00-1.93); BILIRUBIN,TOTAL 0.3 MG/DL (0.2-1.0); CALCIUM LEVEL 8.5 MG/DL (8.8-10.2); CREATININE FOR GFR 1.42 MG/DL (0.55-1.02); GLOMERULAR FILTRATION RATE 38.7 (>39); MAGNESIUM LEVEL 2.1 MG/DL (1.8-2.4); POTASSIUM SERUM 3.4 MEQ/L (3.5-5.1); TOTAL PROTEIN 5.9 GM/DL (6.4-8.2)
--- NOTE | 2016-12-13 08:18 | ECGEPIP ---
Stationary ECG Study 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
[2016-12-13] MEDS: LACTULOSE 20 GM/30 ML SYRUP UD PO SCH ×2 (08:45→21:14)
[2016-12-13] MEDS: TORSEMIDE (DEMADEX) 50 MG PER 1/2 TAB PO SCH ×2 (08:46→21:16)
[2016-12-13] MEDS: SENOKOT S TAB PO SCH ×2 (08:46→21:15)
[2016-12-13] MEDS: HumaLOG INSULIN (NovoLOG) PER UNIT SC SCH ×4 (08:46→21:14)
[2016-12-13] MEDS: MEROPENEM INJ 1 GM in D5W MINI-BAG PLUS 100 ML IV SCH (08:46)
[2016-12-13] MEDS: SUCRALFATE 1 GM TAB PO SCH ×2 (08:46→21:15)
[2016-12-13] MEDS: ALLOPURINOL 300 MG TAB PO SCH (08:47)
[2016-12-13] MEDS: OMEPRAZOLE 20 MG CAP PO SCH ×2 (08:47→21:15)
[2016-12-13] MEDS: SPIRONOLACTONE 25 MG TAB PO SCH ×2 (08:47→21:15)
[2016-12-13] MEDS: DOCUSATE SODIUM 100 MG CAP PO SCH ×2 (08:47→21:15)
[2016-12-13] MEDS: PREGABALIN 100 MG CAP (LYRICA) PO SCH ×3 (08:47→21:15)
[2016-12-13] MEDS: BISOPROLOL FUMARATE 5 MG TAB PO SCH (08:47)
[2016-12-13] MEDS: ASPIRIN 81 MG ENTERIC TAB PO SCH (08:47)
[2016-12-13] MEDS: POTASSIUM CHLORIDE 10 MEQ SR TABLET PO SCH (08:47)
[2016-12-13] MEDS: COLCHICINE 0.6 MG TAB PO SCH (08:47)
[2016-12-13] MEDS: LACTIC ACID 12% LOTION 225 GM BTL TOP SCH ×2 (08:49→21:16)
[2016-12-13] MEDS: SODIUM CHLORIDE 0.9% INJ 10 ML SYR IV SCH (08:49)
[2016-12-13] MEDS ORDERED: INFLUENZA VIRUS VACCINE HIGH DOSE 0.5 ML SYRINGE (90662) IM ONE (09:00)
--- NOTE | 2016-12-13 12:09 | IPN ---
DATE: 12/13/2016 SUBJECTIVE: Patient tells me that she thinks she is feeling better. She is oriented to person, place. She knows the year but not the month. She does understand she is in the hospital. Does not remember why she was brought. OBJECTIVE: Vital signs: Temperature 98.1, pulse 86, respiratory rate 19, blood pressure 140/64, oxygen saturation 96% on room air. General: She is an obese, elderly female lying flat in bed. She does not appear to be in any acute distress whatsoever. HEENT: Cranial nerves II-XII are grossly intact. She does have a large neck. Moist mucous membranes. Cardiovascular exam: S1, S2 distant. Respiratory exam: Clear but distant. Abdominal exam: Obese. Nontender. Extremities: No clubbing, cyanosis or edema. LABORATORY STUDY: WBC 5.1, hemoglobin 7.9, hematocrit 28.6, platelet count 257. Chemistry panel: Sodium 141, potassium 3.4, chloride 100, bicarbonate 30, BUN 16, creatinine 1.4, magnesium level 2.1. Liver function tests are within normal limits. Microbiology: Urine culture is positive for E. Coli fairly sensitive. No new imaging. ASSESSMENT AND PLAN: This is a 71-year-old female who presented with metabolic encephalopathy and slightly abnormal liver function tests. PROBLEMS: 1. Metabolic encephalopathy with slightly abnormal liver function tests felt to be related to medication adverse effect with Baclofen versus duloxetine versus urinary tract infection. At the present time, it appears that the patient is improving and her mental status is clearing. She is experiencing return to baseline. 2. Urinary tract infection. The patient has been on meropenem. I will try to transition her to oral antibiotics at this time. She does have significant allergies. 3. Chronic hypoxic respiratory failure multifactorial in nature. She has paralyzed right hemidiaphragm, obesity, hypoventilation, obstructive sleep apnea. She does appear at her baseline respiratory status and normally follows with Dr. Del Cid. 4. Diastolic congestive heart failure with preserved ejection fraction. She is continued on torsemide and aldactone. She appears to be euvolemic. 5. Chronic kidney disease stable at her baseline. Continue with her diuretics. 6. Irritable bowel syndrome. She is to continue with Senokot, lactulose, Colace as needed. 7. Gout, she is on allopurinol and Colcrys. 8. Hypertension. Blood pressure is controlled. She is continued on bisoprolol and torsemide as well as aldactone with holding parameters. 9. Gastroesophageal reflux disease. She is on Carafate and omeprazole. 10. Seizure disorder. The patient is on Lyrica. 11. Obstructive sleep apnea. She is compliant with CPAP. 12. Chronic back pain. She is on Lyrica. 13. Deep venous thrombosis (DVT) prophylaxis. She is on subcutaneous heparin. DISPOSITION: She is continuing to work with physical therapy. She is approaching her baseline but not quite there yet. Her fci prognosis is quite poor given her repeat hospitalizations and her inability to remain outside of the hospital. I do not think that she is stable for discharge back to her previous living environment and we strongly recommend placement. She is not open to this at this time. We will continue discussions.
[2016-12-13] MEDS: CIPROFLOXACIN 500 MG TAB PO SCH ×2 (12:30→17:45)
[2016-12-13 14:39] LABS: REASON FOR REVIEW COMPREHENSIVE REVIEW
[2016-12-13] MEDS: ACETAMINOPHEN TAB 650MG DOSE (2X325MG) PO PRN ×2 (14:47→23:23)
[2016-12-13 14:53] LABS: RETIC HEMOGLOBIN CONTENT CHr 20.5 PG (24-36); RETICULOCYTE % 2.2 % (0.5-1.5)
[2016-12-13 20:05] VITALS: BP 126/59
[2016-12-14 04:00] VITALS: BP 164/76
[2016-12-14] MEDS: CIPROFLOXACIN 500 MG TAB PO SCH ×2 (05:32→17:28)
[2016-12-14] MEDS: HEPARIN SOD (PORCINE) 5000 UNITS/ML VIAL SC SCH ×3 (05:32→21:45)
[2016-12-14] MEDS: SODIUM CHLORIDE 0.9% INJ 10 ML SYR IV PRN (05:33)
[2016-12-14 06:05] LABS: MEAN CORPUSCULAR HEMOGLOBIN 21.1 pg (27.0-33.0); MEAN CORPUSCULAR HGB CONC 28.6 g/dl (32.0-36.5); MEAN CORPUSCULAR VOLUME 73.6 fl (80.0-96.0); WHITE BLOOD COUNT 6.7 K/mm3 (4.0-10.0)
[2016-12-14 06:34] LABS: ALBUMIN 3.4 GM/DL (3.2-5.2); ALBUMIN/GLOBULIN RATIO 0.83 (1.00-1.93); BILIRUBIN,TOTAL 0.4 MG/DL (0.2-1.0); CALCIUM LEVEL 9.4 MG/DL (8.8-10.2); CREATININE FOR GFR 1.53 MG/DL (0.55-1.02); GLOMERULAR FILTRATION RATE 35.5 (>39); MAGNESIUM LEVEL 2.2 MG/DL (1.8-2.4); POTASSIUM SERUM 3.6 MEQ/L (3.5-5.1); TOTAL PROTEIN 7.5 GM/DL (6.4-8.2)
[2016-12-14 07:30] VITALS: BP 152/68
[2016-12-14] MEDS: HumaLOG INSULIN (NovoLOG) PER UNIT SC SCH ×4 (08:48→22:03)
[2016-12-14] MEDS: SUCRALFATE 1 GM TAB PO SCH ×2 (08:49→21:46)
[2016-12-14] MEDS: ASPIRIN 81 MG ENTERIC TAB PO SCH (08:49)
[2016-12-14] MEDS: OMEPRAZOLE 20 MG CAP PO SCH ×2 (08:49→21:46)
[2016-12-14] MEDS: LACTULOSE 20 GM/30 ML SYRUP UD PO SCH ×2 (08:49→21:00)
[2016-12-14] MEDS: POTASSIUM CHLORIDE 10 MEQ SR TABLET PO SCH (08:49)
[2016-12-14] MEDS: DOCUSATE SODIUM 100 MG CAP PO SCH ×2 (08:49→21:46)
[2016-12-14] MEDS: ALLOPURINOL 300 MG TAB PO SCH (08:49)
[2016-12-14] MEDS: SPIRONOLACTONE 25 MG TAB PO SCH ×2 (08:49→21:47)
[2016-12-14] MEDS: PREGABALIN 100 MG CAP (LYRICA) PO SCH ×3 (08:49→21:46)
[2016-12-14] MEDS: SENOKOT S TAB PO SCH ×2 (08:50→21:46)
[2016-12-14] MEDS: BISOPROLOL FUMARATE 5 MG TAB PO SCH (08:50)
[2016-12-14] MEDS: SODIUM CHLORIDE 0.9% INJ 10 ML SYR IV SCH (08:51)
[2016-12-14] MEDS: COLCHICINE 0.6 MG TAB PO SCH (08:59)
[2016-12-14] MEDS: TORSEMIDE (DEMADEX) 50 MG PER 1/2 TAB PO SCH ×2 (09:00→21:47)
[2016-12-14] MEDS: LACTIC ACID 12% LOTION 225 GM BTL TOP SCH ×2 (09:02→21:47)
--- NOTE | 2016-12-14 12:46 | IPN ---
DATE: 12/14/2016 SUBJECTIVE: This morning the patient tells me that she is feeling well. She denies chest pain, shortness of breath, fevers, chills, nausea, vomiting or diarrhea. OBJECTIVE: Vital signs: Temperature 98.9, pulse 56, respiratory rate 20, blood pressure 152/68, oxygen saturation 98% on room air. General: She is an elderly, pleasant, female lying flat in bed. She was in no acute distress. HEENT: Cranial nerves II-XII are grossly intact. Moist mucous membranes. Difficult to assess for any elevation of central venous pressure secondary to body habitus. Cardiovascular exam: S1, S2 regular. Respiratory exam: Clear. Abdominal exam: Obese. Nontender. Extremities: No clubbing, cyanosis or edema. There is some tenderness in the right lower calf. LABORATORY STUDY: Today, WBC 6.7, hemoglobin 8.9, platelet count 317. Chemistry panel: Sodium 140, potassium 3.6, chloride 98, bicarbonate 31, BUN 16, creatinine 1.5. Microbiology: Urine culture did return positive for Escherichia (E) coli , fairly sensitive. Peripheral smear reveals persistent leukoerythroblastosis. ASSESSMENT AND PLAN: This is a 71-year-old female with recurrent hospitalizations, this time presented with metabolic encephalopathy. PROBLEMS: 1. Metabolic encephalopathy with slightly abnormality in her liver function tests with AST 41, felt to be likely due to medication adverse effect. She was restarted on Baclofen, for which she has had an adverse effect with metabolic encephalopathy in the past. She has also recently started on duloxetine, both medications were stopped. The only other possibility is that she was symptomatic from urinary tract infection (UTI). She did improve with antibiotics as well. At this time, she has returned to her baseline cognitive status and metabolic encephalopathy has resolved. I would avoid the aforementioned medications in the future. 2. Urinary tract infection. She was on meropenem. At this time, she has been transitioned to ciprofloxacin orally. She has been seen by infectious disease in the past and has chronic bacteruria and is always symptomatic, even without acute infections, even after completing treatment. She has had an extensive workup by Dr. Rivera as well. For the time being, we will treat her with a 10-day course of antibiotics. She likely has chronic colonization. 3. Erythroblastosis, unclear etiology. Would recommend the patient followup, but it has been persistent over the last several hospitalizations. Recommend followup with outpatient hematology referral. 4. Chronic hypoxic respiratory failure, multifactorial in nature. She has a paralyzed right hemidiaphragm, obesity, hypoventilation syndrome, obstructive sleep apnea. She normally follows with Dr. Del Cid. She is compliant with CPAP. 5. Diastolic congestive heart failure with preserved ejection fraction. She is continued on torsemide and aldactone. She appears to be euvolemic at this time. 6. Chronic kidney disease. She is at her baseline. Continue with her diuretics. 7. Irritable bowel syndrome. She is to continue with her home bowel regimen of Senokot, lactulose, and Colace as needed. 8. Gout, she is on allopurinol and Colcrys. 9. Hypertension. Blood pressure is controlled with bisoprolol and torsemide as well as aldactone with holding parameters. 10. Gastroesophageal reflux disease. She is on Carafate and omeprazole. 11. Right calf pain. We will check a stat duplex of the lower extremity to assess for any deep vein thrombosis (DVT). She is not a candidate for anticoagulation. She has an IVC filter in place. 12. Seizure disorder. She is on Lyrica. 13. Gastroesophageal reflux disease (GERD). She is on Carafate and omeprazole. 14. Chronic back pain. She is on Lyrica. 15. Deep venous thrombosis (DVT) prophylaxis. She is on subcutaneous heparin. DISPOSITION: I did have a lengthy discussion with orthopedics and this morning. I informed them that she is currently stable with physical therapy. She has right calf pain. I do not think that she is medical stable for discharge at this time. Even when cleared by physical therapy (PT), it is unclear to me how safe she is in terms of discharge given that she has demonstrated time and time again her inability to live outside the hospital. I did strongly recommend detention placement at this time and they informed that they have been getting he same message from their insurance provider as well. I have asked them to discuss it further amongst themselves and come to a consensus decision, but the son will consider it as it may benefit her health in the long run to have more comprehensive inpatient care.
[2016-12-14] MEDS: ACETAMINOPHEN TAB 650MG DOSE (2X325MG) PO PRN ×3 (13:17→22:22)
[2016-12-14] MEDS: FERROUS SULFATE 325MG TAB PO SCH ×2 (13:17→21:46)
--- NOTE | 2016-12-14 14:11 | REP ---
Clinical: Right-sided chest pain . Technique: Mesa scale and color Doppler evaluation using linear high frequency transducer. Findings: Ultrasound examination of the right lower extremity deep venous structures from the common femoral vein to the popliteal vein demonstrates normal compressibility flow and wave patterns in response to respiration and augmentation. There is no evidence for deep venous thrombosis. Impression: No evidence for deep venous thrombosis. Signed by Ramos Chaparro MD 12/14/2016 02:03 P
[2016-12-14 15:30] VITALS: BP 142/65
[2016-12-14 23:42] VITALS: BP 124/59
[2016-12-15] MEDS ORDERED: FUROSEMIDE 20 MG/2 ML VIAL (J1940) IV ONE (03:30)
[2016-12-15 03:45] VITALS: BP 126/59
[2016-12-15] MEDS: HEPARIN SOD (PORCINE) 5000 UNITS/ML VIAL SC SCH ×3 (05:22→21:38)
[2016-12-15] MEDS: CIPROFLOXACIN 500 MG TAB PO SCH ×2 (05:22→17:04)
[2016-12-15] MEDS: SODIUM CHLORIDE 0.9% INJ 10 ML SYR IV PRN (05:23)
[2016-12-15 05:34] VITALS: BP 123/54
[2016-12-15 05:51] LABS: MEAN CORPUSCULAR HEMOGLOBIN 19.7 pg (27.0-33.0); MEAN CORPUSCULAR HGB CONC 27.2 g/dl (32.0-36.5); MEAN CORPUSCULAR VOLUME 72.5 fl (80.0-96.0); RED CELL DISTRIBUTION WIDTH 20.3 % (11.5-14.5); WHITE BLOOD COUNT 4.9 K/mm3 (4.0-10.0)
[2016-12-15 06:09] LABS: ALBUMIN 3.1 GM/DL (3.2-5.2); ALBUMIN/GLOBULIN RATIO 0.91 (1.00-1.93); BILIRUBIN,TOTAL 0.4 MG/DL (0.2-1.0); CALCIUM LEVEL 8.6 MG/DL (8.8-10.2); CREATININE FOR GFR 1.58 MG/DL (0.55-1.02); GLOMERULAR FILTRATION RATE 34.2 (>39); MAGNESIUM LEVEL 2.2 MG/DL (1.8-2.4); POTASSIUM SERUM 3.8 MEQ/L (3.5-5.1); TOTAL PROTEIN 6.5 GM/DL (6.4-8.2)
[2016-12-15] MEDS: HumaLOG INSULIN (NovoLOG) PER UNIT SC SCH ×4 (08:27→20:37)
[2016-12-15] MEDS: POTASSIUM CHLORIDE 10 MEQ SR TABLET PO SCH (08:27)
[2016-12-15] MEDS: TORSEMIDE (DEMADEX) 50 MG PER 1/2 TAB PO SCH ×2 (08:28→20:38)
[2016-12-15] MEDS: COLCHICINE 0.6 MG TAB PO SCH (08:28)
[2016-12-15] MEDS: FERROUS SULFATE 325MG TAB PO SCH ×2 (08:28→20:38)
[2016-12-15] MEDS: OMEPRAZOLE 20 MG CAP PO SCH ×2 (08:28→20:37)
[2016-12-15] MEDS: DOCUSATE SODIUM 100 MG CAP PO SCH ×2 (08:28→20:38)
[2016-12-15] MEDS: SPIRONOLACTONE 25 MG TAB PO SCH ×2 (08:29→20:37)
[2016-12-15] MEDS: ASPIRIN 81 MG ENTERIC TAB PO SCH (08:29)
[2016-12-15] MEDS: SUCRALFATE 1 GM TAB PO SCH ×2 (08:29→20:38)
[2016-12-15] MEDS: ALLOPURINOL 300 MG TAB PO SCH (08:29)
[2016-12-15] MEDS: PREGABALIN 100 MG CAP (LYRICA) PO SCH ×3 (08:29→20:38)
[2016-12-15] MEDS: SODIUM CHLORIDE 0.9% INJ 10 ML SYR IV SCH (08:29)
[2016-12-15] MEDS: BISOPROLOL FUMARATE 5 MG TAB PO SCH (08:31)
[2016-12-15] MEDS: SENOKOT S TAB PO SCH ×2 (08:32→20:38)
[2016-12-15] MEDS: LACTULOSE 20 GM/30 ML SYRUP UD PO SCH ×2 (08:32→20:37)
[2016-12-15] MEDS: LACTIC ACID 12% LOTION 225 GM BTL TOP SCH ×2 (08:33→20:38)
[2016-12-15] MEDS: ACETAMINOPHEN TAB 650MG DOSE (2X325MG) PO PRN ×2 (13:45→21:40)
--- NOTE | 2016-12-15 13:48 | REP ---
Clinical: Congestion. Technique: Upright AP view. Comparison: 12/11/2016. Findings: Right-sided central catheter in SVC. Mild cardiomegaly is again appreciated along with findings to suggest pulmonary vascular congestion. Small effusions cannot be excluded. No pneumothorax. Skeletal structures intact. Impression: Findings suggest pulmonary vascular congestion and possible small pleural effusion. Signed by Ramos Chaparro MD 12/15/2016 01:41 P
[2016-12-15 14:00] VITALS: BP 120/55
--- NOTE | 2016-12-15 14:33 | IPN ---
DATE OF SERVICE: 12/15/2016 There was some concern last evening that Ms. Stern may have had increasing pulmonary congestion, and she was given some Lasix. No x-ray was done. She is not complaining of any shortness of breath this morning. Is tolerating a diet. Is quite clear that she does not want to go to subacute rehabilitation or to a [facility]. Temperature 98.2, pulse 80, respiratory rate 18, blood pressure 123/54, 94% on 2 liters bled into her bilevel positive airway pressure (BiPAP). She is awake, appropriately interactive. Mucous membranes moist. Neck is thick. Breathing is symmetrically diminished. I-to-E ratio is 1:3. Speaking in complete sentences. No accessory muscle use. Heart is distant sounding. Normal S1, S2. Abdomen soft, doughy, nontender. White cell count 4.9, hemoglobin 7.9, platelets of 247. BUN is 16, creatinine 1.58. MY ASSESSMENT IS FOLLOWS: This is a 71-year-old with metabolic encephalopathy, which is improving. PLAN IS FOLLOWS: 1. Metabolic encephalopathy. This is mostly related to adverse drug effect, possibly related to her Baclofen, and possibly also complicated by urinary tract infection. 2. Patient has urinary tract infection. Is on oral antibiotics with plan to complete a total of 10 days' course. 3. Patient has erythroblastosis. Will need outpatient followup. 4. Patient has chronic hypoxic respiratory failure, which is multifactorial. She has paralyzed right hemidiaphragm, obesity hypoventilation syndrome, obstructive sleep apnea. She is compliant with her continuous positive airway pressure (CPAP) and follows with Dr. Del Cid. 5. Patient has history of diastolic congestive heart failure with preserved left ventricular ejection fraction. She appears euvolemic to me. Will get an x-ray based on last night's dosing of Lasix. 6. Patient has chronic kidney disease. Is at her baseline. 7. Patient is continuing with physical therapy. Patient is resistant to the idea of placement, even though this is her 11th hospital admission in less than 12 months. Edited: [facility] 12/17/2016 1616
[2016-12-15 20:00] VITALS: BP 119/78
[2016-12-16] MEDS: CIPROFLOXACIN 500 MG TAB PO SCH (05:25)
[2016-12-16] MEDS: HEPARIN SOD (PORCINE) 5000 UNITS/ML VIAL SC SCH (05:26)
[2016-12-16 06:00] VITALS: BP 137/64
[2016-12-16] MEDS: SODIUM CHLORIDE 0.9% INJ 10 ML SYR IV PRN (06:05)
[2016-12-16 06:19] LABS: MEAN CORPUSCULAR VOLUME 72.6 fl (80.0-96.0); RED CELL DISTRIBUTION WIDTH 20.9 % (11.5-14.5); WHITE BLOOD COUNT 5.2 K/mm3 (4.0-10.0)
[2016-12-16 07:06] LABS: ALBUMIN 3.2 GM/DL (3.2-5.2); BILIRUBIN,TOTAL 0.4 MG/DL (0.2-1.0); CREATININE FOR GFR 1.51 MG/DL (0.55-1.02); GLOMERULAR FILTRATION RATE 36.1 (>39); MAGNESIUM LEVEL 2.5 MG/DL (1.8-2.4); POTASSIUM SERUM 3.8 MEQ/L (3.5-5.1); TOTAL PROTEIN 6.4 GM/DL (6.4-8.2)
[2016-12-16] MEDS: HumaLOG INSULIN (NovoLOG) PER UNIT SC SCH (08:20)
[2016-12-16] MEDS: POTASSIUM CHLORIDE 10 MEQ SR TABLET PO SCH (08:21)
[2016-12-16] MEDS: TORSEMIDE (DEMADEX) 50 MG PER 1/2 TAB PO SCH (08:21)
[2016-12-16] MEDS: SODIUM CHLORIDE 0.9% INJ 10 ML SYR IV SCH (08:21)
[2016-12-16] MEDS: SENOKOT S TAB PO SCH (08:21)
[2016-12-16] MEDS: COLCHICINE 0.6 MG TAB PO SCH (08:21)
[2016-12-16] MEDS: SPIRONOLACTONE 25 MG TAB PO SCH (08:22)
[2016-12-16] MEDS: PREGABALIN 100 MG CAP (LYRICA) PO SCH (08:22)
[2016-12-16] MEDS: OMEPRAZOLE 20 MG CAP PO SCH (08:22)
[2016-12-16] MEDS: DOCUSATE SODIUM 100 MG CAP PO SCH (08:22)
[2016-12-16] MEDS: SUCRALFATE 1 GM TAB PO SCH (08:22)
[2016-12-16] MEDS: ASPIRIN 81 MG ENTERIC TAB PO SCH (08:22)
[2016-12-16] MEDS: ALLOPURINOL 300 MG TAB PO SCH (08:22)
[2016-12-16] MEDS: FERROUS SULFATE 325MG TAB PO SCH (08:22)
[2016-12-16 08:23] VITALS: BP 137/64
[2016-12-16] MEDS: BISOPROLOL FUMARATE 5 MG TAB PO SCH (08:23)
[2016-12-16] MEDS: LACTULOSE 20 GM/30 ML SYRUP UD PO SCH (08:23)
[2016-12-16] MEDS: LACTIC ACID 12% LOTION 225 GM BTL TOP SCH (08:24)
[2016-12-16] MEDS ORDERED: LEVEMIR (INSULIN DETEMIR) 1 UNITS/0.01ML SC SCH (09:00)
[2016-12-16] MEDS ORDERED: CIPR500T3 PO (13:12)
--- NOTE | 2016-12-16 15:08 | DSES ---
DATE OF ADMISSION: 12/11/2016 DATE OF DISCHARGE: 12/16/2016 SPECIALISTS INVOLVED IN CARE: None. COMPLICATIONS DURING STAY: None. PROCEDURES PERFORMED DURING STAY: None. DISCHARGE DIAGNOSES: 1. Metabolic encephalopathy secondary to medication adverse effect. 2. Urinary tract infection. 3. Erythroblastosis. 4. Chronic hypoxic respiratory failure, multifactorial. 5. Diastolic congestive heart failure with preserved left ventricular ejection fraction. 6. Chronic kidney disease. 7. Irritable bowel. 8. Gout. 9. Hypertension. 10. Gastroesophageal reflux disease. 11. History of seizure disorder. 12. Chronic back pain. SUMMARY OF HOSPITALIZATION: This is a 71-year-old who presented with difficulty breathing. She had altered mental status and increased drowsiness. She had multiple medication changes within the last week. She was thought possibly to have a urinary tract infection (UTI) or adverse medication effect to baclofen. She was admitted to the hospitalist service. She improved relatively quickly. She is a frequent utilizer of services here at the hospital, having multiple admissions over the last 12 months. She was offered the idea of placement. She was not open to that. She passed physical therapy and would like to go home. On the day of discharge she is tolerating diet. No complaints of pain, chest pain, shortness of breath. Feeling much better. Temperature 98.6, respiratory rate 19, blood pressure 137/64, 96%. Intake and output notable for a negative fluid balance of -3195. One bowel movement the day prior to admission. Awake, appropriately interactive, pleasantly conversant. Compliant with her continuous positive airway pressure (CPAP). Abdomen soft, doughy, nontender. White cell count 5.2, hemoglobin 8.3, platelets 243. BUN is 18, creatinine 1.5. DISCHARGE INSTRUCTIONS: Followup with Dr. Villalobos December 23. Activity is as tolerated. Consistent-carbohydrate diet. - Continue Tylenol 650 mg ever 8 hours as needed for pain. - albuterol inhaler four times daily as needed for shortness of breath - allopurinol 300 mg by mouth daily - Amitiza 24 mcg by mouth daily - ammonium lactate one dose topically twice daily - aspirin 81 mg by mouth daily - betamethasone cream as needed - Zebeta 2.5 mg by mouth daily - colchicine 0.6 mg by mouth daily - cranberry extract as deemed necessary - Colace 100 mg by mouth twice daily - vitamin D supplement on the first of every month - fluconazole 150 mg by mouth daily as needed - fluoxetine 20 mg by mouth daily at noon - Continue home insulin dosing. - lactulose 30 mL twice daily - Keppra 750 mg by mouth daily - Reglan 10 mg by mouth three times a day - milk of magnesia 30 mL by mouth daily as needed for constipation - nystatin as needed in skin folds - omeprazole 20 mg by mouth twice daily - Zofran 4 mg by mouth four times a day - potassium chloride 20 mEq p daily - Lyrica 100 mg by mouth three times a day - scopolamine as needed for nausea - Senokot-S two tablets by mouth twice daily - spironolactone 25 mg by mouth daily - sucralfate 1 gram by mouth twice daily - torsemide 50 mg by mouth twice daily - Toujeo SoloStar 75 units twice daily - Vagisil as needed Discontinue Cymbalta. She is given a prescription to complete a course of ciprofloxacin until December 21. MTDD
[2017-01-29] MEDS ORDERED: CIPR-249 PO (18:51)
[2017-01-29] MEDS ORDERED: PRED10TA2 PO (18:53)
== END 2016-12-16 11:58 | disposition home health service (06) | DRG 689 ==
LOC: M ED 14:27 → M ED INP 18:47 → M PCU 21:38 → M MS4PR 12-14 23:20
PROVIDERS: ADMIT Internal Medicine; ATTEND Internal Medicine
DX: N39.0 Urinary tract infection, site not specified (principal); G93.41 Metabolic encephalopathy; I50.32 Chronic diastolic (congestive) heart failure; J96.11 Chronic respiratory failure with hypoxia; I13.0 Hypertensive heart and chronic kidney disease with heart failure and stage 1 through stage 4 chronic kidney disease, or unspecified chronic kidney disease; E66.2 Morbid (severe) obesity with alveolar hypoventilation; M54.5 Low back pain; K21.9 Gastro-esophageal reflux disease without esophagitis; G40.909 Epilepsy, unspecified, not intractable, without status epilepticus; M10.9 Gout, unspecified; N18.3 Chronic kidney disease, stage 3 (moderate); K58.9 Irritable bowel syndrome, unspecified; Z79.899 Other long term (current) drug therapy; T42.8X5A Adverse effect of antiparkinsonism drugs and other central muscle-tone depressants, initial encounter; Z79.82 Long term (current) use of aspirin; E11.9 Type 2 diabetes mellitus without complications; J45.909 Unspecified asthma, uncomplicated; G47.33 Obstructive sleep apnea (adult) (pediatric); J98.6 Disorders of diaphragm; B96.29 Other Escherichia coli [E. coli] as the cause of diseases classified elsewhere

== ENCOUNTER → 2016-12-20 | Outpatient (CLI) | payer MEDICARE, MEDICAID ==
[~2016-12-20] MED LIST changes: +BUPIVACAINE HCL 0.25% 10 ML VIAL As Ordered ONE; +BUPIVACAINE HCL 0.25% 30 ML VIAL As Ordered ONE; +CIPR-249 PO; +CIPR500T3 PO; +DULO30CA PO; +LEVE250T5 PO; +TOUJ1.2I SC; +TRIAMCINOLONE ACETONIDE SUSP 40 MG/ML VIAL (J3301) As Ordered ONE; +diazePAM 5 MG TAB As Ordered ONE
--- NOTE | 2016-12-21 00:58 | ECWPNPC ---
PATIENT NAME: SHIVANI PAYNE I : 1945 GENDER: FEMALE VISIT DATE: 12/20/2016 DISCHARGE DATE: 12/20/161701 VISIT LOCKED DATE TIME: PHYSICIAN: JAIMEE TROTTER RESOURCE: JAIMEE TROTTER REASON FOR APPOINTMENT 1. TPI, NECK HISTORY OF PRESENT ILLNESS HISTORY OF PRESENT ILLNESS: PAIN THE PATIENT DESCRIBES THE PAIN... FALL RISK SCREENING: SCREENING :NO FALLS IN THE PAST YEAR CURRENT MEDICATIONS TAKING TYLENOL 8 HOUR 650 MG TABLET EXTENDED RELEASE 1 TABLET ORALLY EVERY 8 HRS PRN, NOTES: 12/17/16 TAKING DUONEB 1 DOSE VIA NEBULIZER TID, NOTES: NONE LATELY TAKING BISOPROLOL FUMARATE 5 MG TABLET 1/2 TABLET ORALLY ONCE A DAY, NOTES: 12/20/16729 TAKING FLUOXETINE HCL 20 MG CAPSULE 1 CAPSULE IN THE MORNING ORALLY ONCE A DAY, NOTES: 12/20/161199 TAKING ONDANSETRON 4 MG TABLET DISPERSIBLE 1 TABLET ON TONGUE ORALLY QID, NOTES: 12/20/16729 TAKING KEPPRA 500 MG TABLET 1 TABLET ORALLY QID, NOTES: 12/20/16729 TAKING METOCLOPRAMIDE HCL 10 MG TABLET 1 TAB(S) ORALLY TID, NOTES: 12/20/161199 TAKING OMEPRAZOLE 20 MG CAPSULE DELAYED RELEASE 1 CAPSULE ORALLY BID, NOTES: 12/20/16729 TAKING LACTULOSE 20 GM/30ML SOLUTION 30 ML ORALLY BID, NOTES: 12/20/16729 TAKING DOCUSATE SODIUM 100 MG CAPSULE 1 CAPSULE ORALLY BID PRN, NOTES: 12/20/16729 TAKING SENNA 8.6-50 MG TABLET 2 TADS ORALLY BID, NOTES: 12/20/16729 TAKING NOVOLOG 100 UNIT/ML SOLUTION SLIDING SCALE SUBCUTANEOUS BEFORE EVERY MEAL & HS, NOTES: 12/20/161199 TAKING BREO ELLIPTA 100-25 MCG/INH AEROSOL POWDER BREATH ACTIVATED 1 PUFF INHALATION ONCE A DAY PRN, NOTES: NONE LATELY TAKING TORSEMIDE 100 MG TABLET 1/2 TABLET ORALLY 1/2 TAB BID, NOTES: 12/20/16729 TAKING SPIRONOLACTONE 25 MG TABLET 1 TABLET ORALLY BID, NOTES: 12/20/16729 TAKING ASPIRIN 81 MG TABLET 1 TABLET ORALLY ONCE A DAY, NOTES: 12/20/16729 TAKING AMMONIUM LACTATE 12 % CREAM 1 APPLICATION TO AFFECTED AREA EXTERNALLY TWICE A DAY, NOTES: 12/20/16729 TAKING AMITIZA 24 MCG CAPSULE 1 CAPSULE WITH FOOD ORALLY BEFORE BEDTIME, NOTES: 12/19/16 2100 TAKING MILK OF MAGNESIA 1200 MG/15ML SUSPENSION 5 ML NEEDED ORALLY FOUR TIMES A DAY, NOTES: NONE LATELY TAKING SCOPOLAMINE BASE 1.5 MG PATCH 72 HOUR 1 PATCH TO SKIN NEEDED TRANSDERMAL , NOTES: 12/17/16 TAKING SUCRALFATE 1 GM/10ML SUSPENSION 10 ML ORALLY TWICE A DAY, NOTES: 12/20/16729 TAKING VITAMIN D (ERGOCALCIFEROL) 06626 UNIT CAPSULE 1 CAPSULE ORALLY MONTHLY, NOTES: 12/03/16 TAKING POTASSIUM 1 TAB ORAL BID, NOTES: 12/20/16729 TAKING ALLOPURINOL 300 MG TABLET 1 TABLET ORALLY ONCE A DAY, NOTES: 12/20/16729 TAKING AMLODIPINE BESYLATE 5 MG TABLET 1 TABLET ORALLY ONCE A DAY, NOTES: 12/20/16729 TAKING COLCHICINE 0.6 MG TABLET 1 TABLET ORALLY ONCE A DAY, NOTES: 12/20/16729 TAKING CRANBERRY 500 MG CAPSULE 1 CAP(S) ORALLY THREE TIMES A DAY, NOTES: 12/20/161199 NOT-TAKING DIFLUCAN 150MG (1 TABLET) 150 MG TABLET 1 TABLET ORALLY ONCE FOR YEAST INFECTION NOT-TAKING HUMULIN R U-500 (CONCENTRATED) 500 UNIT/ML SOLUTION 50 UNITS SUBCUTANEOUS TID NOT-TAKING K-PHOS 500 MG TABLET 1 TAB ORALLY BID NOT-TAKING RESTASIS 0.05 % EMULSION 1 INTO AFFECTED EYE OPHTHALMIC TWICE A DAY NOT-TAKING POTASSIUM CHLORIDE TABLET NOT-TAKING LYRICA 50 MG CAPSULE 1 CAPSULE ORALLY BID NOT-TAKING SPIRIVA HANDIHALER 18 MCG CAPSULE 1 CAPSULE INHALATION ONCE A DAY NOT-TAKING VERAPAMIL HCL 120 MG TABLET 1 TABLET ORALLY DAILY NOT-TAKING PYRIDIUM 100 MG TABLET 1 TABLET AFTER MEALS ORALLY THREE TIMES A DAY NEEDED FOR URINARY SYMPTOMS MEDICATION LIST REVIEWED AND RECONCILED WITH THE PATIENT PAST MEDICAL HISTORY NEUROGENIC URINARY RETENTION RECURRENT UTI HYPERTENSION INCONTIENCE,GERD MIGRAINE HX OF HEPATITIS A SEIZURES CATARACTS DVT LEFT LEG TX XARELTO CAUSED GI BLEED/ ALLYSSA FILTER ILEUS [address] TURNER EGD AND COLONOSCOPY TYPE 2 DIABETES ASTHMA KIDNEY DISEASE ARTHRITIS CHF HAS MARCAINE/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 BACK THAT AT PRESENT TIME IS TURNED DOWN TO LOWEST SETTING JUST TO KEEP OPEN ALLERGIES MORPHINE SULFATE: CONTINUOUS INFUSION--SEVERE ITCHING: ALLERGY PENTAZOCINE-NALOXONE: ALLERGY CHLORPROMAZINE: ALLERGY LORATADINE: ALLERGY PENICILLIN (FOR ALLERGIES USE ONLY): HIVES: ALLERGY CEPHALOSPORINS: ALLERGY SULFAMETHOXAZOLE-TMP DS: HIVES: ALLERGY BACTRIM: HIVES: ALLERGY SURGICAL HISTORY HYSTERECTOMY AGE 22 L4 -5 DISKECTOMY DIAPHRAGM PARALYZED- RIGHT LOWER LUNG R-BRADY 2013 HITAL HERNIA REPAIR LEFT ANKLE FX- FUSION INFUSAPORT REMOVED INFUSAPORT PLACED INFUSAPORT AND IMPLANTED PAIN PUMP RIGHT HIP REPLACEMENT HOSPITALIZATION/MAJOR DIAGNOSTIC PROCEDURE RELATED FOR SURGERY ADMITTED DUE TO TROUBLE BREATHING 2012 ADMITTED DUE TO CHF ADMITTED OTHER TIMES WELL DUE TO MIGRAINE, SEIZURES, AND ETC ADMITTED DUE TO COPD, CHF, BLOOD INFECTION 04/2015 ADMITTED FOR PORT PLACEMENT 06/2015 FALL 08/2015 PNEOMINA, FLU, CHF, HYPERGYLCEMIA, DEHYDRATION 05/2016 REVIEW OF SYSTEMS REVIEWED BY: PROVIDER: . CONSTITUTIONAL: ANY CHANGE IN YOUR MEDICAL CONDITION? YES, WHEELCHAIR BOUND . CHILLS NO . FEVER NO . INFECTION: DO YOU HAVE NEW INFECTIONS? NO . DO YOU HAVE HISTORY OF MRSA? NO . MUSCULOSKELETAL: ANY NEW PATTERNS OF PAIN OR NUMBNESS? YES, NECK PAIN IS NOW RADIATING DOWN BOTH ARMS . GASTROENTEROLOGY: ANY NEW CHANGE IN BOWEL CONTROL? NO . GENITOURINARY: ANY NEW CHANGE IN BLADDER CONTROL? NO . IS THERE A CHANCE YOU COULD BE ? NO . HEMATOLOGY/LYMPH: DO YOU TAKE ANY BLOOD THINNERS? (FOR EXAMPLE- COUMADIN, PLAVIX, AGGRENOX, PLATEL, PRADAXA, OR XARELTO) NO . WHEN WAS YOUR LAST DOSE? DATE: TIME: . NEUROLOGY: HAVE YOU FALLEN IN THE PAST 6 MONTHS? NO . ANY NEW EXTREMITY NUMBNESS OR WEAKNESS? NO . CARDIOLOGY: DO YOU HAVE A PACEMAKER OR DEFIBRILLATOR? NO . RESPIRATORY: HAVE YOU BEEN SICK IN THE PAST WEEK? NO . FEVER NO . FLU LIKE SYMPTOMS? NO . COUGH NO . INTEGUMENTARY: DO YOU HAVE ANY RASHES OR OPEN SORES? NO . ALLERGIC/IMMUNO: ARE YOU ALLERGIC TO SHELLFISH OR IV DYE? NO . ANY NEW ALLERGIES? NO . PSYCHIATRIC: DO YOU HAVE THOUGHTS OF HURTING YOURSELF OR SOMEONE ELSE? NO . ARE YOU ABUSED, NEGLECTED, OR IN AN UNSAFE ENVIRONMENT? NO . ENDOCRINOLOGY: ARE YOU DIABETIC? YES . OTHER: DO YOU NEED ANY PRESCRIPTIONS? NO . IF YES, PLEASE LIST: ____ . ANY NEW PROBLEMS WITH YOUR MEDICATIONS? NO . WHEN DID YOU LAST EAT? 12/20/16 NOON . WHEN DID YOU LAST DRINK? 12/20/16 NOON . WHAT DID YOU LAST DRINK? WATER . NAME OF PERSON DRIVING YOU HOME? [employer] . DO YOU HAVE ANY OTHER QUESTIONS OR CONCERNS NO . VITAL SIGNS WT 245 LBS, HT 5'7" VERBAL, BMI 38.37 INDEX, BP 123/70 MM HG, HR 77 /MIN, RR 18 /MIN, TEMP 99.0 F, OXYGEN SAT % 94%, NA INITIALS SC 14:37. ASSESSMENTS MYALGIA - M79.1 (PRIMARY) PROCEDURES PN TRIGGER POINT INJECTION WITH STEROIDS PRE PROCEDURE DIAGNOSIS 1. MYALGIA 2. PAIN AT RIGHT NECK AREA AND RIGHT SHOULDER AREA POST PROCEDURE DIAGNOSIS 1. MYALGIA 2. PAIN AT RIGHT NECK AREA AND RIGHT SHOULDER AREA PROCEDURE TRIGGER POINT INJECTION AT RIGHT NECK AREA AND RIGHT SHOULDER AREA SURGEON DR. JAIMEE TROTTER DIPPER AND BAKER NONE ANESTHESIA LOCAL PRE PROCEDURE NOTE THE PATIENT HAS A HISTORY OF CHRONIC PAIN AT THE RIGHT NECK AREA AND RIGHT SHOULDER AREA. I EVALUATE THE PATIENT AND REVIEWED THE CHART. THERE IS EVIDENCE OF BANDS OF TISSUE WITH RESTRICTION OF MOVEMENT AND PRESENCE OF TRIGGER POINT AT THE AFFECTED AREA. I WENT OVER THE RISKS, ALTERNATIVES, AND BENEFITS ASSOCIATED WITH THIS PROCEDURE. THE PATIENT WOULD LIKE TO PROCEED AND GIVE CONSENT TO PERFORMED THE PROCEDURE. THE PATIENT DENIES UNEXPLAINABLE WEIGHT LOSS, FEVER, CHILLS, OR NEW CHANGES IN URINARY OR BOWEL CONTROL DESCRIPTION OF PROCEDURE THE PATIENT WAS BROUGHT TO THE PROCEDURE ROOM AND PLACED IN THE SITTING POSITION. THE AREA WAS CLEANED WITH ALCOHOL. THE PROCEDURE WAS DONE USING ASEPTIC STERILE TECHNIQUE. I CHECKED LATERALITY AND THE LEVEL WHERE THE PROCEDURE WAS GOING TO BE PERFORMED WITH THE PATIENT AND THE SUPPORTING STAFF AT THE MOMENT OF THE TIME OUT IN THE PROCEDURE ROOM. USING A 25-GAUGE NEEDLE, TRIGGER POINTS WERE INJECTED AT THE RIGHT NECK AREA AND RIGHT SHOULDER AREA WITH A TOTAL OF 40 ML OF BUPIVACAINE 0.25% AND KENALOG 40 MG. THERE WAS NO EVIDENCE OF BLOOD, PARESTHESIA OR CEREBROSPINAL FLUID DURING THE PROCEDURE. THE PATIENT WAS SENT TO THE RECOVERY ROOM. THE PATIENT WAS MOVING THE EXTREMITIES AND DOING WELL. THERE WAS NO COMPLICATION DURING THE PROCEDURE POST PROCEDURE NOTE THE PATIENT WILL BE SEEN IN A FOLLOW UP IN THE NEXT FEW WEEKS. INSTRUCTIONS WERE GIVEN, QUESTIONS WERE ANSWERED, AND THE PATIENT EXPRESSED UNDERSTANDING AND AGREES WITH THE PLAN. I, AMBROCIO BRUNO, DOCUMENTED THE ABOVE INFORMATION ACTING A SCRIBE FOR DR. TROTTER. I, DR. TROTTER, HAVE REVIEWED THE ABOVE DOCUMENT, SCRIBED BY AMBROCIO BRUNO, AND I VERIFY THAT IT IS ACCURATE PROCEDURE CODES 36462 INJ TRIGGER POINT / MUSCL DISPOSITION & COMMUNICATION FOLLOW UP 3 WEEKS ELECTRONICALLY SIGNED BY JAIMEE TROTTER MD ON 12/20/2016 AT 06:27 PM EDT DISCLAIMER : THIS IS A VISIT SUMMARY EXTRACTED FROM THE [facility] CHART. IT IS NOT A COPY OF THE [facility] PROGRESS NOTE. MTDD
== END ==
LOC: M PAIN 14:30
PROVIDERS: ATTEND Anesthesiology
DX: G89.29 Other chronic pain (principal); M54.2 Cervicalgia; M25.511 Pain in right shoulder; M79.1 Myalgia; E11.9 Type 2 diabetes mellitus without complications; I10 Essential (primary) hypertension; G43.909 Migraine, unspecified, not intractable, without status migrainosus; R56.9 Unspecified convulsions; Z88.5 Allergy status to narcotic agent; Z88.8 Allergy status to other drugs, medicaments and biological substances; Z88.0 Allergy status to penicillin; Z88.2 Allergy status to sulfonamides; Z88.1 Allergy status to other antibiotic agents; Z79.4 Long term (current) use of insulin; Z79.51 Long term (current) use of inhaled steroids; Z79.82 Long term (current) use of aspirin
CPT/HCPCS: 20552; J3301

== ENCOUNTER → 2016-12-29 | Outpatient (REF) | payer MEDICARE, MEDICAID ==
[~2016-12-29] MED LIST changes: -BUPIVACAINE HCL 0.25% 10 ML VIAL As Ordered ONE; -BUPIVACAINE HCL 0.25% 30 ML VIAL As Ordered ONE; -TRIAMCINOLONE ACETONIDE SUSP 40 MG/ML VIAL (J3301) As Ordered ONE; -diazePAM 5 MG TAB As Ordered ONE
[2016-12-29 20:21] LABS: ALBUMIN 3.3 GM/DL (3.2-5.2); CALCIUM LEVEL 8.8 MG/DL (8.8-10.2); CREATININE FOR GFR 1.81 MG/DL (0.55-1.02); GLOMERULAR FILTRATION RATE 29.3 (>39); PHOSPHORUS LEVEL 3.8 MG/DL (2.5-4.9); POTASSIUM SERUM 3.8 MEQ/L (3.5-5.1)
== END ==
LOC: M LAB REF 11:52
PROVIDERS: ATTEND Internal Medicine Nephrology
DX: N18.4 Chronic kidney disease, stage 4 (severe) (principal); M1A.30X0 Chronic gout due to renal impairment, unspecified site, without tophus (tophi)

== ENCOUNTER → 2017-01-21 | Outpatient (REF) | payer MEDICARE, MEDICAID ==
[2017-01-21 18:04] LABS: YEAST LIKE CELL URINE AUTO SMALL
== END ==
LOC: M SMT 16:51
PROVIDERS: ATTEND Urology
DX: N39.0 Urinary tract infection, site not specified (principal)
CPT/HCPCS: 81001; 87088; 87186; G0463

== ENCOUNTER → 2017-01-24 | Outpatient (CLI) | payer MEDICARE, MEDICAID ==
--- NOTE | 2017-02-21 00:34 | ECWPNPC ---
PATIENT NAME: SHIVANI PAYNE I : 1945 GENDER: FEMALE VISIT DATE: 01/24/2017 DISCHARGE DATE: 01/24/17 1507 VISIT LOCKED DATE TIME: PHYSICIAN: CHERIE AMATO RESOURCE: CHERIE AMATO REASON FOR APPOINTMENT 1. NECK/SHOULDERS HISTORY OF PRESENT ILLNESS HISTORY OF PRESENT ILLNESS: 71 Y/O FEMALE HERE FOR POST PROCEDURE F/U.HAD TPI RIGHT NECK WITH STEROIDS ON 12-20-16.REPORTS >50% REDUCTION IN PAIN FOR ONE MONTH AND PAIN HAS GRADUALLY RETURNED.RATING PAIN VAS 7/10.DESCRIBES RIGHT NECK AND ARM PAIN INTERMITTENT BURNING AND ACHING PAIN. PAIN THE PATIENT DESCRIBES THE PAIN... FALL RISK SCREENING: SCREENING :NO FALLS IN THE PAST YEAR CURRENT MEDICATIONS TAKING TYLENOL 8 HOUR 650 MG TABLET EXTENDED RELEASE 1 TABLET ORALLY EVERY 8 HRS PRN TAKING DUONEB 1 DOSE VIA NEBULIZER TID TAKING BISOPROLOL FUMARATE 5 MG TABLET 1/2 TABLET ORALLY ONCE A DAY TAKING FLUOXETINE HCL 20 MG CAPSULE 1 CAPSULE IN THE MORNING ORALLY ONCE A DAY TAKING ONDANSETRON 4 MG TABLET DISPERSIBLE 1 TABLET ON TONGUE ORALLY QID TAKING KEPPRA 500 MG TABLET 1 TABLET ORALLY QID TAKING METOCLOPRAMIDE HCL 10 MG TABLET 1 TAB(S) ORALLY TID TAKING OMEPRAZOLE 20 MG CAPSULE DELAYED RELEASE 1 CAPSULE ORALLY BID TAKING LACTULOSE 20 GM/30ML SOLUTION 30 ML ORALLY BID TAKING DOCUSATE SODIUM 100 MG CAPSULE 1 CAPSULE ORALLY BID PRN TAKING SENNA 8.6-50 MG TABLET 2 TADS ORALLY BID TAKING NOVOLOG 100 UNIT/ML SOLUTION SLIDING SCALE SUBCUTANEOUS BEFORE EVERY MEAL & HS TAKING BREO ELLIPTA 100-25 MCG/INH AEROSOL POWDER BREATH ACTIVATED 1 PUFF INHALATION ONCE A DAY PRN TAKING TORSEMIDE 100 MG TABLET 1/2 TABLET ORALLY 1/2 TAB BID TAKING SPIRONOLACTONE 25 MG TABLET 1 TABLET ORALLY BID TAKING ASPIRIN 81 MG TABLET 1 TABLET ORALLY ONCE A DAY TAKING AMMONIUM LACTATE 12 % CREAM 1 APPLICATION TO AFFECTED AREA EXTERNALLY TWICE A DAY TAKING AMITIZA 24 MCG CAPSULE 1 CAPSULE WITH FOOD ORALLY BEFORE BEDTIME TAKING MILK OF MAGNESIA 1200 MG/15ML SUSPENSION 5 ML NEEDED ORALLY FOUR TIMES A DAY TAKING SCOPOLAMINE BASE 1.5 MG PATCH 72 HOUR 1 PATCH TO SKIN NEEDED TRANSDERMAL TAKING SUCRALFATE 1 GM/10ML SUSPENSION 10 ML ORALLY TWICE A DAY TAKING VITAMIN D (ERGOCALCIFEROL) 24335 UNIT CAPSULE 1 CAPSULE ORALLY MONTHLY TAKING POTASSIUM 1 TAB ORAL BID TAKING ALLOPURINOL 300 MG TABLET 1 TABLET ORALLY ONCE A DAY TAKING AMLODIPINE BESYLATE 5 MG TABLET 1 TABLET ORALLY ONCE A DAY TAKING COLCHICINE 0.6 MG TABLET 1 TABLET ORALLY ONCE A DAY TAKING CRANBERRY 500 MG CAPSULE 1 CAP(S) ORALLY THREE TIMES A DAY TAKING PYRIDIUM 200 MG TABLET 1 TABLET AFTER MEALS ORALLY THREE TIMES A DAY NEEDED FOR URINARY BURNING TAKING CIPROFLOXACIN HCL 500 MG TABLET 1 TABLET ORALLY EVERY 12 HRS UNKNOWN DIFLUCAN 150MG (1 TABLET) 150 MG TABLET 1 TABLET ORALLY ONCE FOR YEAST INFECTION UNKNOWN HUMULIN R U-500 (CONCENTRATED) 500 UNIT/ML SOLUTION 50 UNITS SUBCUTANEOUS TID UNKNOWN K-PHOS 500 MG TABLET 1 TAB ORALLY BID UNKNOWN RESTASIS 0.05 % EMULSION 1 INTO AFFECTED EYE OPHTHALMIC TWICE A DAY UNKNOWN POTASSIUM CHLORIDE TABLET UNKNOWN LYRICA 50 MG CAPSULE 1 CAPSULE ORALLY BID UNKNOWN SPIRIVA HANDIHALER 18 MCG CAPSULE 1 CAPSULE INHALATION ONCE A DAY UNKNOWN VERAPAMIL HCL 120 MG TABLET 1 TABLET ORALLY DAILY UNKNOWN PYRIDIUM 100 MG TABLET 1 TABLET AFTER MEALS ORALLY THREE TIMES A DAY NEEDED FOR URINARY SYMPTOMS MEDICATION LIST REVIEWED AND RECONCILED WITH THE PATIENT PAST MEDICAL HISTORY NEUROGENIC URINARY RETENTION RECURRENT UTI HYPERTENSION INCONTIENCE,GERD MIGRAINE HX OF HEPATITIS A SEIZURES CATARACTS DVT LEFT LEG TX XARELTO CAUSED GI BLEED/ ALLYSSA FILTER ILEUS [address] TURNER EGD AND COLONOSCOPY TYPE 2 DIABETES ASTHMA KIDNEY DISEASE ARTHRITIS CHF HAS MARCAINE/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 BACK THAT AT PRESENT TIME IS TURNED DOWN TO LOWEST SETTING JUST TO KEEP OPEN ALLERGIES MORPHINE SULFATE: CONTINUOUS INFUSION--SEVERE ITCHING: ALLERGY PENTAZOCINE-NALOXONE: ALLERGY CHLORPROMAZINE: ALLERGY LORATADINE: ALLERGY PENICILLIN (FOR ALLERGIES USE ONLY): HIVES: ALLERGY CEPHALOSPORINS: ALLERGY SULFAMETHOXAZOLE-TMP DS: HIVES: ALLERGY BACTRIM: HIVES: ALLERGY SURGICAL HISTORY HYSTERECTOMY AGE 22 L4 -5 DISKECTOMY DIAPHRAGM PARALYZED- RIGHT LOWER LUNG R-BRADY 2013 HITAL HERNIA REPAIR LEFT ANKLE FX- FUSION INFUSAPORT REMOVED INFUSAPORT PLACED INFUSAPORT AND IMPLANTED PAIN PUMP RIGHT HIP REPLACEMENT SOCIAL HISTORY GENERAL: TOBACCO USE ARE YOU A:NONSMOKER LUNG CANCER SCREENING SMOKING STATUS:NON SMOKER ALCOHOL SCREENING POINTS: 0, INTERPRETATION: NEGATIVE. RECREATIONAL DRUG USE DENIES. CAFFEINE CAFFEINE USE?NO SEXUAL HX HAD SEX IN THE LAST 12 MONTHS (VAGINAL, ORAL, OR ANAL)?: YES, WITH: MEN ONLY, HAVE YOU EVER HAD AN STD?: NO. OCCUPATION: [employer] BUT BECAME DISABLED. DIET: REGULAR. EXERCISE: NO REGULAR EXERCISE. MARITAL STATUS: .. OTHERS AT HOME: OTHER NON-RELATIVE. PETS: NONE. CHEONDOISM [id number] YARSANISM LANGUAGE TURKMEN. 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 WILLIAM PAYNE PHONE # OF POA? SEE ABOVE DO YOU HAVE A COPY WITH YOU?NO HAVE YOU HAD A COPY OF ANY ADVANCED DIRECTIVE (LISTED ABOVE) ON A PREVIOUS MEDICAL RECORDS AT [facility]?YES TRAVEL OUTSIDE US: NONE. HOUSING: OWNS HOME. DOMESTIC VIOLENCE DO YOU FEEL SAFE IN YOUR ENVIRONMENT?YES HAS MOLST FORM. HOSPITALIZATION/MAJOR DIAGNOSTIC PROCEDURE RELATED FOR SURGERY ADMITTED DUE TO TROUBLE BREATHING 2012 ADMITTED DUE TO CHF ADMITTED OTHER TIMES WELL DUE TO MIGRAINE, SEIZURES, AND ETC ADMITTED DUE TO COPD, CHF, BLOOD INFECTION 04/2015 ADMITTED FOR PORT PLACEMENT 06/2015 FALL 08/2015 PNEOMINA, FLU, CHF, HYPERGYLCEMIA, DEHYDRATION 05/2016 REVIEW OF SYSTEMS REVIEWED BY: PROVIDER: CHERIE SPENCER . CONSTITUTIONAL: ANY CHANGE IN YOUR MEDICAL CONDITION? NO . CHILLS NO . FEVER NO . INFECTION: DO YOU HAVE NEW INFECTIONS? NO . DO YOU HAVE HISTORY OF MRSA? NO . MUSCULOSKELETAL: ANY NEW PATTERNS OF PAIN OR NUMBNESS? NO . GASTROENTEROLOGY: ANY NEW CHANGE IN BOWEL CONTROL? NO . GENITOURINARY: ANY NEW CHANGE IN BLADDER CONTROL? NO . IS THERE A CHANCE YOU COULD BE ? NO . HEMATOLOGY/LYMPH: DO YOU TAKE ANY BLOOD THINNERS? (FOR EXAMPLE- COUMADIN, PLAVIX, AGGRENOX, PLATEL, PRADAXA, OR XARELTO) NO . WHEN WAS YOUR LAST DOSE? DATE: TIME: . NEUROLOGY: HAVE YOU FALLEN IN THE PAST 6 MONTHS? NO . ANY NEW EXTREMITY NUMBNESS OR WEAKNESS? NO . CARDIOLOGY: DO YOU HAVE A PACEMAKER OR DEFIBRILLATOR? NO . RESPIRATORY: HAVE YOU BEEN SICK IN THE PAST WEEK? BRONCHIATUS . FEVER NO . FLU LIKE SYMPTOMS? NO . COUGH NO . INTEGUMENTARY: DO YOU HAVE ANY RASHES OR OPEN SORES? NO . ALLERGIC/IMMUNO: ARE YOU ALLERGIC TO SHELLFISH OR IV DYE? NO . ANY NEW ALLERGIES? NO . PSYCHIATRIC: DO YOU HAVE THOUGHTS OF HURTING YOURSELF OR SOMEONE ELSE? NO . ARE YOU ABUSED, NEGLECTED, OR IN AN UNSAFE ENVIRONMENT? NO . ENDOCRINOLOGY: ARE YOU DIABETIC? YES . OTHER: DO YOU NEED ANY PRESCRIPTIONS? NO . IF YES, PLEASE LIST: ____ . ANY NEW PROBLEMS WITH YOUR MEDICATIONS? NO . WHEN DID YOU LAST EAT? ____ . WHEN DID YOU LAST DRINK? ____ . WHAT DID YOU LAST DRINK? ____ . NAME OF PERSON DRIVING YOU HOME? ____ . DO YOU HAVE ANY OTHER QUESTIONS OR CONCERNS NO . VITAL SIGNS WT 235 LBS, HT 5'7" VERBAL, BMI 36.80 INDEX, BP 145/72 MM HG, HR 84 /MIN, RR 18 /MIN, TEMP 98.5 F, OXYGEN SAT % 99%, NA INITIALS SC 14:50, REVIEWED BY: NL. EXAMINATION GENERAL EXAMINATION: GENERAL APPEARANCE:IN W/C/SHORT OF BREATH/02 2L N/C ON.AWAKE,ALERT,ORIENTED. PSYCHAFFECT NORMAL. LUNGS:L/S DIMINISHED.TACHYPNEIC. HEART:S1, S2 IN A REGULAR RATE AND RHYTHM. NO SIGNIFICANT MURMURS, RUBS OR GALLOPS NOTED. CERVICALTRIGGER POINTS ELICITED OVER RIGHT CERVICAL/TRAPEZIUS/SCALINE. ASSESSMENTS CERVICALGIA - M54.2 (PRIMARY) MYOFASCIAL PAIN - M79.1 TREATMENT CERVICALGIA NOTES: TPI RIGHT NECK. PREVENTIVE MEDICINE DISCUSSED PRE PROCEDURE CARENWITH PT EXPRESSING UNDERSTANDING. PROCEDURE CODES FA211 ESTABILISHED PATIENT [facility] CHARGE G8730 PAIN ASSESS POS TOOL F/U PLAN DOC G8427 DOC MEDS VERIFIED W/PT OR RE DISPOSITION & COMMUNICATION FOLLOW UP 2WK POST (REASON: TPI RIGHT NECK) ELECTRONICALLY SIGNED BY TJ SIMON ON 02/20/2017 AT 01:33 PM EST DISCLAIMER : THIS IS A VISIT SUMMARY EXTRACTED FROM THE [employer] CHART. IT IS NOT A COPY OF THE [employer] PROGRESS NOTE. JOSE R
== END ==
LOC: M PAIN 13:45
PROVIDERS: ATTEND Nurse Practitioner Family
DX: M54.2 Cervicalgia (principal); M79.1 Myalgia; I11.0 Hypertensive heart disease with heart failure; E11.9 Type 2 diabetes mellitus without complications; I50.30 Unspecified diastolic (congestive) heart failure; N31.9 Neuromuscular dysfunction of bladder, unspecified; Z86.718 Personal history of other venous thrombosis and embolism; J45.909 Unspecified asthma, uncomplicated; Z79.2 Long term (current) use of antibiotics; Z79.82 Long term (current) use of aspirin; Z79.4 Long term (current) use of insulin; Z88.0 Allergy status to penicillin; Z88.1 Allergy status to other antibiotic agents; Z88.2 Allergy status to sulfonamides; Z88.5 Allergy status to narcotic agent; Z88.8 Allergy status to other drugs, medicaments and biological substances

== ENCOUNTER → 2017-02-15 | Outpatient (CLI) | payer MEDICARE, MEDICAID ==
[~2017-02-15] MED LIST changes: +BUPIVACAINE HCL 0.25% 10 ML VIAL As Ordered ONE; +BUPIVACAINE HCL 0.25% 30 ML VIAL As Ordered ONE; +diazePAM 5 MG TAB As Ordered ONE
--- NOTE | 2017-02-28 00:19 | ECWPNPC ---
PATIENT NAME: SHIVANI PAYNE I : 1945 GENDER: FEMALE VISIT DATE: 02/15/2017 DISCHARGE DATE: 02/15/17 1533 VISIT LOCKED DATE TIME: PHYSICIAN: JAIMEE TROTTER RESOURCE: JAIMEE TROTTER REASON FOR APPOINTMENT 1. TPI HISTORY OF PRESENT ILLNESS HISTORY OF PRESENT ILLNESS: PAIN THE PATIENT DESCRIBES THE PAIN... FALL RISK SCREENING: SCREENING :NO FALLS IN THE PAST YEAR CURRENT MEDICATIONS TAKING TYLENOL 8 HOUR 650 MG TABLET EXTENDED RELEASE 1 TABLET ORALLY EVERY 8 HRS PRN, NOTES: 02/14/17 AM TAKING KEPPRA 250 MG TABLET 1 TAB ORALLY TWICE A DAY, NOTES: UNSURE TAKING DUONEB 1 DOSE VIA NEBULIZER TID NEEDED, NOTES: UNSURE TAKING BISOPROLOL FUMARATE 5 MG TABLET 1/2 TABLET ORALLY ONCE A DAY, NOTES: UNSURE TAKING ONDANSETRON 4 MG TABLET DISPERSIBLE 1 TABLET ON TONGUE ORALLY QID, NOTES: UNSURE TAKING KEPPRA 500 MG TABLET 1 TABLET ORALLY TWICE A DAY, NOTES: UNSURE TAKING METOCLOPRAMIDE HCL 10 MG TABLET 1 TAB(S) ORALLY TID, NOTES: UNSURE TAKING OMEPRAZOLE 20 MG CAPSULE DELAYED RELEASE 1 CAPSULE ORALLY BID, NOTES: UNSURE TAKING DOCUSATE SODIUM 100 MG CAPSULE 1 CAPSULE ORALLY BID PRN, NOTES: UNSURE TAKING SENNA 8.6-50 MG TABLET 2 TADS ORALLY BID, NOTES: UNSURE TAKING NOVOLOG 100 UNIT/ML SOLUTION SLIDING SCALE SUBCUTANEOUS BEFORE EVERY MEAL & HS, NOTES: 02/15/17 AT 0700 TAKING TORSEMIDE 100 MG TABLET 1/2 TABLET ORALLY 1/2 TAB BID, NOTES: UNSURE TAKING SPIRONOLACTONE 25 MG TABLET 1 TABLET ORALLY BID, NOTES: UNSURE TAKING ASPIRIN 81 MG TABLET 1 TABLET ORALLY ONCE A DAY, NOTES: UNSURE TAKING AMMONIUM LACTATE 12 % CREAM 1 APPLICATION TO AFFECTED AREA EXTERNALLY TWICE A DAY, NOTES: 02/15/17 TAKING AMITIZA 24 MCG CAPSULE 1 CAPSULE WITH FOOD ORALLY BEFORE BEDTIME, NOTES: UNSURE TAKING SCOPOLAMINE BASE 1.5 MG PATCH 72 HOUR 1 PATCH TO SKIN NEEDED TRANSDERMAL , NOTES: ON NOW TAKING SUCRALFATE 1 GM/10ML SUSPENSION 10 ML ORALLY TWICE A DAY, NOTES: UNSURE TAKING VITAMIN D (ERGOCALCIFEROL) 14432 UNIT CAPSULE 1 CAPSULE ORALLY MONTHLY, NOTES: 02/02/17 TAKING POTASSIUM 10 MEQ 2 TABLETS ORAL ONCE DAILY, NOTES: UNSURE TAKING ALLOPURINOL 300 MG TABLET 1 TABLET ORALLY ONCE A DAY, NOTES: UNSURE TAKING COLCHICINE 0.6 MG TABLET 1 TABLET ORALLY ONCE A DAY, NOTES: UNSURE TAKING CRANBERRY 500 MG CAPSULE 1 CAP(S) ORALLY THREE TIMES A DAY, NOTES: UNSURE TAKING LYRICA 100 MG CAPSULE 1 CAPSULE ORALLY 3 TIMES A DAY, NOTES: UNSURE TAKING TOUJEO SOLOSTAR 300 UNIT/ML SOLUTION PEN-INJECTOR 80 UNITS SUBCUTANEOUS 2 TIMES A DAY, NOTES: 02/15/17 AT 0700 NOT-TAKING FLUOXETINE HCL 20 MG CAPSULE 1 CAPSULE IN THE MORNING ORALLY ONCE A DAY NOT-TAKING LACTULOSE 20 GM/30ML SOLUTION 30 ML ORALLY BID NOT-TAKING BREO ELLIPTA 100-25 MCG/INH AEROSOL POWDER BREATH ACTIVATED 1 PUFF INHALATION ONCE A DAY PRN NOT-TAKING MILK OF MAGNESIA 1200 MG/15ML SUSPENSION 5 ML NEEDED ORALLY FOUR TIMES A DAY NOT-TAKING AMLODIPINE BESYLATE 5 MG TABLET 1 TABLET ORALLY ONCE A DAY NOT-TAKING PYRIDIUM 200 MG TABLET 1 TABLET AFTER MEALS ORALLY THREE TIMES A DAY NEEDED FOR URINARY BURNING NOT-TAKING CIPROFLOXACIN HCL 500 MG TABLET 1 TABLET ORALLY EVERY 12 HRS NOT-TAKING DIFLUCAN 150MG (1 TABLET) 150 MG TABLET 1 TABLET ORALLY ONCE FOR YEAST INFECTION NOT-TAKING HUMULIN R U-500 (CONCENTRATED) 500 UNIT/ML SOLUTION 50 UNITS SUBCUTANEOUS TID NOT-TAKING K-PHOS 500 MG TABLET 1 TAB ORALLY BID NOT-TAKING RESTASIS 0.05 % EMULSION 1 INTO AFFECTED EYE OPHTHALMIC TWICE A DAY NOT-TAKING POTASSIUM CHLORIDE TABLET NOT-TAKING SPIRIVA HANDIHALER 18 MCG CAPSULE 1 CAPSULE INHALATION ONCE A DAY NOT-TAKING VERAPAMIL HCL 120 MG TABLET 1 TABLET ORALLY DAILY NOT-TAKING PYRIDIUM 100 MG TABLET 1 TABLET AFTER MEALS ORALLY THREE TIMES A DAY NEEDED FOR URINARY SYMPTOMS MEDICATION LIST REVIEWED AND RECONCILED WITH THE PATIENT PAST MEDICAL HISTORY NEUROGENIC URINARY RETENTION RECURRENT UTI HYPERTENSION INCONTIENCE,GERD MIGRAINE HX OF HEPATITIS A SEIZURES CATARACTS DVT LEFT LEG TX XARELTO CAUSED GI BLEED/ ALLYSSA FILTER ILEUS [address] TURNER EGD AND COLONOSCOPY TYPE 2 DIABETES ASTHMA KIDNEY DISEASE ARTHRITIS CHF HAS MARCAINE/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 BACK THAT AT PRESENT TIME IS TURNED DOWN TO LOWEST SETTING JUST TO KEEP OPEN ALLERGIES MORPHINE SULFATE: CONTINUOUS INFUSION--SEVERE ITCHING: ALLERGY PENTAZOCINE-NALOXONE: ALLERGY CHLORPROMAZINE: ALLERGY LORATADINE: ALLERGY PENICILLIN (FOR ALLERGIES USE ONLY): HIVES: ALLERGY CEPHALOSPORINS: ALLERGY SULFAMETHOXAZOLE-TMP DS: HIVES: ALLERGY BACTRIM: HIVES: ALLERGY SOCIAL HISTORY GENERAL: TOBACCO USE ARE YOU A:NONSMOKER LUNG CANCER SCREENING SMOKING STATUS:NON SMOKER ALCOHOL SCREENING POINTS: 0, INTERPRETATION: NEGATIVE. RECREATIONAL DRUG USE DENIES. CAFFEINE CAFFEINE USE?NO SEXUAL HX HAD SEX IN THE LAST 12 MONTHS (VAGINAL, ORAL, OR ANAL)?: YES, WITH: MEN ONLY, HAVE YOU EVER HAD AN STD?: NO. OCCUPATION: [employer] BUT BECAME DISABLED. DIET: REGULAR. EXERCISE: NO REGULAR EXERCISE. MARITAL STATUS: .. OTHERS AT HOME: OTHER NON-RELATIVE. PETS: NONE. MORMON [id number] HINDUISM LANGUAGE HUNGARIAN. 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 WILLIAM PAYNE PHONE # OF POA? SEE ABOVE DO YOU HAVE A COPY WITH YOU?NO HAVE YOU HAD A COPY OF ANY ADVANCED DIRECTIVE (LISTED ABOVE) ON A PREVIOUS MEDICAL RECORDS AT [facility]?YES TRAVEL OUTSIDE US: NONE. HOUSING: OWNS HOME. DOMESTIC VIOLENCE DO YOU FEEL SAFE IN YOUR ENVIRONMENT?YES HAS MOLST FORM. REVIEW OF SYSTEMS REVIEWED BY: PROVIDER: . CONSTITUTIONAL: ANY CHANGE IN YOUR MEDICAL CONDITION? NO . CHILLS NO . FEVER NO . INFECTION: DO YOU HAVE NEW INFECTIONS? NO . DO YOU HAVE HISTORY OF MRSA? NO . MUSCULOSKELETAL: ANY NEW PATTERNS OF PAIN OR NUMBNESS? NO . GASTROENTEROLOGY: ANY NEW CHANGE IN BOWEL CONTROL? NO . GENITOURINARY: ANY NEW CHANGE IN BLADDER CONTROL? NO . IS THERE A CHANCE YOU COULD BE ? NO . HEMATOLOGY/LYMPH: DO YOU TAKE ANY BLOOD THINNERS? (FOR EXAMPLE- COUMADIN, PLAVIX, AGGRENOX, PLATEL, PRADAXA, OR XARELTO) NO . WHEN WAS YOUR LAST DOSE? DATE: TIME: . NEUROLOGY: HAVE YOU FALLEN IN THE PAST 6 MONTHS? NO . ANY NEW EXTREMITY NUMBNESS OR WEAKNESS? NO . CARDIOLOGY: DO YOU HAVE A PACEMAKER OR DEFIBRILLATOR? NO . RESPIRATORY: HAVE YOU BEEN SICK IN THE PAST WEEK? NO . FEVER NO . FLU LIKE SYMPTOMS? NO . COUGH NO . INTEGUMENTARY: DO YOU HAVE ANY RASHES OR OPEN SORES? NO . ALLERGIC/IMMUNO: ARE YOU ALLERGIC TO SHELLFISH OR IV DYE? NO . ANY NEW ALLERGIES? NO . PSYCHIATRIC: DO YOU HAVE THOUGHTS OF HURTING YOURSELF OR SOMEONE ELSE? NO . ARE YOU ABUSED, NEGLECTED, OR IN AN UNSAFE ENVIRONMENT? NO . ENDOCRINOLOGY: ARE YOU DIABETIC? YES . OTHER: DO YOU NEED ANY PRESCRIPTIONS? NO . IF YES, PLEASE LIST: ____ . ANY NEW PROBLEMS WITH YOUR MEDICATIONS? NO . WHEN DID YOU LAST EAT? 02/15/17 AT 0800 . WHEN DID YOU LAST DRINK? 02/15/17 AT 0800 . WHAT DID YOU LAST DRINK? TEA . NAME OF PERSON DRIVING YOU HOME? BIJAN () . DO YOU HAVE ANY OTHER QUESTIONS OR CONCERNS NO . VITAL SIGNS WT 241.0 LBS, HT 5'7" VERBAL, BMI 37.74 INDEX, BP 140/66 MM HG, HR 78 /MIN, RR 18 /MIN, TEMP 97.8 F, OXYGEN SAT % 97%, SAFE IN ENV? (Y/N) YES, NA INITIALS TL 1255, REVIEWED BY: CS. ASSESSMENTS MYALGIA - M79.1 (PRIMARY) PROCEDURES PN TRIGGER POINT INJECTION NO STEROIDS PRE PROCEDURE DIAGNOSIS 1. MYALGIA 2. PAIN AT RIGHT SHOULDER AREA POST PROCEDURE DIAGNOSIS 1. MYALGIA 2. PAIN AT RIGHT SHOULDER AREA PROCEDURE TRIGGER POINT INJECTION AT RIGHT SHOULDER AREA SURGEON DR. JAIMEE TROTTER PRODUCT SAFETY MANAGER NONE ANESTHESIA LOCAL PRE PROCEDURE NOTE 71 YEAR-OLD PATIENT WITH HISTORY OF CHRONIC PAIN AT RIGHT SHOULDER AREA. I EVALUATED THE PATIENT AND REVIEWED THE CHART. THERE IS EVIDENCE OF BANDS OF TISSUE WITH RESTRICTION OF MOVEMENT AND PRESENCE OF TRIGGER POINT AT THE AFFECTED AREA. I WENT OVER THE RISKS, ALTERNATIVES, AND BENEFITS ASSOCIATED WITH THIS PROCEDURE. THE PATIENT WOULD LIKE TO PROCEED AND GAVE CONSENT TO PERFORM THE PROCEDURE. THE PATIENT DENIES UNEXPLAINABLE WEIGHT LOSS, FEVER, CHILLS, OR NEW CHANGES IN URINARY OR BOWEL CONTROL. DESCRIPTION OF PROCEDURE THE PATIENT WAS BROUGHT TO THE PROCEDURE ROOM AND PLACED IN THE SITTING PRONE POSITION. THE AREA WAS CLEANED WITH ALCOHOL. THE PROCEDURE WAS DONE USING ASEPTIC STERILE TECHNIQUES. I CHECKED LATERALITY AND THE LEVEL WHERE THE PROCEDURE WAS GOING TO BE PERFORMED WITH THE PATIENT AND THE SUPPORTING STAFF AT THE MOMENT OF THE TIME OUT IN THE PROCEDURE ROOM. USING A 25-GAUGE NEEDLE, TRIGGER POINTS WERE INJECTED AT THE RIGHT SHOULDER AREA WITH A TOTAL OF 40 ML OF BUPIVACAINE 0.25%. AGREED WITH THE PATIENT THE PROCEDURE WAS DONE WITHOUT STEROIDS. THERE WAS NO EVIDENCE OF BLOOD, PARESTHESIA OR CEREBROSPINAL FLUID DURING THE PROCEDURE. THE PATIENT WAS SENT TO THE RECOVERY ROOM. THE PATIENT WAS MOVING THE EXTREMITIES AND DOING WELL. THERE WAS NO COMPLICATION DURING THE PROCEDURE. POST PROCEDURE NOTE THE PATIENT WILL BE SEEN IN A FOLLOW UP IN THE NEXT FEW WEEKS. INSTRUCTIONS WERE GIVEN, QUESTIONS WERE ANSWERED, AND THE PATIENT EXPRESSED UNDERSTANDING AND AGREED WITH THE PLAN. I, AMBROCIO BRUNO, DOCUMENTED THE ABOVE INFORMATION ACTING A SCRIBE FOR DR. TROTTER. I HAVE REVIEWED THE ABOVE DOCUMENT, WRITTEN BY AMBROCIO SCOTT AND I VERIFY THAT IT IS ACCURATE PROCEDURE CODES 84582 INJ TRIGGER POINT 04/05 [facility] DISPOSITION & COMMUNICATION FOLLOW UP 3 WEEKS ELECTRONICALLY SIGNED BY JAIMEE TROTTER MD ON 02/27/2017 AT 04:13 PM EST DISCLAIMER : THIS IS A VISIT SUMMARY EXTRACTED FROM THE [employer] CHART. IT IS NOT A COPY OF THE [employer] PROGRESS NOTE. JOSE R
== END ==
LOC: M PAIN 13:00
PROVIDERS: ATTEND Anesthesiology
DX: G89.29 Other chronic pain (principal); M79.1 Myalgia; E11.9 Type 2 diabetes mellitus without complications; I11.0 Hypertensive heart disease with heart failure; I50.9 Heart failure, unspecified; Z79.82 Long term (current) use of aspirin; Z79.4 Long term (current) use of insulin; Z79.899 Other long term (current) drug therapy; Z88.0 Allergy status to penicillin; Z88.5 Allergy status to narcotic agent; Z88.1 Allergy status to other antibiotic agents; Z88.2 Allergy status to sulfonamides; Z88.8 Allergy status to other drugs, medicaments and biological substances

== ENCOUNTER → 2017-02-16 | Outpatient (REF) | payer MEDICARE, MEDICAID ==
[~2017-02-16] MED LIST changes: -BUPIVACAINE HCL 0.25% 10 ML VIAL As Ordered ONE; -BUPIVACAINE HCL 0.25% 30 ML VIAL As Ordered ONE; -diazePAM 5 MG TAB As Ordered ONE
== END ==
LOC: M LAB REF 13:31
PROVIDERS: ATTEND Nurse Practitioner Family
DX: D64.9 Anemia, unspecified (principal); L30.9 Dermatitis, unspecified

== ENCOUNTER → 2017-03-01 | Outpatient (CLI) | payer MEDICARE, MEDICAID ==
--- NOTE | 2017-03-17 00:39 | ECWPNPC ---
PATIENT NAME: SHIVANI PAYNE I : 1945 GENDER: FEMALE VISIT DATE: 03/01/2017 DISCHARGE DATE: 03/01/17 1400 VISIT LOCKED DATE TIME: PHYSICIAN: CHERIE AMATO RESOURCE: CHERIE AMATO REASON FOR APPOINTMENT 1. POST TPI HISTORY OF PRESENT ILLNESS HISTORY OF PRESENT ILLNESS: HERE FOR POST PROCEDURE F/U.HAD TPI RIGHT SHOULDER ON 02-15-17.REPORTS 2-3 WEEKS OF IMPROVEMENT IN PAIN THEN PAIN HAS RETURNED TO BASELINE.RATING PAIN VAS 8/10.HAS BEEN UNABLE TO GET INTO PT FOR MYOFASCIAL RELEASE CLOSE TO HOME.HAVING SEVERE FLARE UP OF LOWER EXTREMITY NEUROPATHY. PAIN THE PATIENT DESCRIBES THE PAIN... FALL RISK SCREENING: SCREENING :NO FALLS IN THE PAST YEAR CURRENT MEDICATIONS TAKING TYLENOL 8 HOUR 650 MG TABLET EXTENDED RELEASE 1 TABLET ORALLY EVERY 8 HRS PRN TAKING KEPPRA 250 MG TABLET 1 TAB ORALLY TWICE A DAY TAKING DUONEB 1 DOSE VIA NEBULIZER TID NEEDED TAKING BISOPROLOL FUMARATE 5 MG TABLET 1/2 TABLET ORALLY ONCE A DAY TAKING ONDANSETRON 4 MG TABLET DISPERSIBLE 1 TABLET ON TONGUE ORALLY QID TAKING KEPPRA 500 MG TABLET 1 TABLET ORALLY TWICE A DAY TAKING METOCLOPRAMIDE HCL 10 MG TABLET 1 TAB(S) ORALLY TID TAKING OMEPRAZOLE 20 MG CAPSULE DELAYED RELEASE 1 CAPSULE ORALLY BID TAKING DOCUSATE SODIUM 100 MG CAPSULE 1 CAPSULE ORALLY BID PRN TAKING SENNA 8.6-50 MG TABLET 2 TADS ORALLY BID TAKING NOVOLOG 100 UNIT/ML SOLUTION SLIDING SCALE SUBCUTANEOUS BEFORE EVERY MEAL & HS TAKING TORSEMIDE 100 MG TABLET 1/2 TABLET ORALLY 1/2 TAB BID TAKING SPIRONOLACTONE 25 MG TABLET 1 TABLET ORALLY BID TAKING ASPIRIN 81 MG TABLET 1 TABLET ORALLY ONCE A DAY TAKING AMMONIUM LACTATE 12 % CREAM 1 APPLICATION TO AFFECTED AREA EXTERNALLY TWICE A DAY TAKING AMITIZA 24 MCG CAPSULE 1 CAPSULE WITH FOOD ORALLY BEFORE BEDTIME TAKING SCOPOLAMINE BASE 1.5 MG PATCH 72 HOUR 1 PATCH TO SKIN NEEDED TRANSDERMAL TAKING SUCRALFATE 1 GM/10ML SUSPENSION 10 ML ORALLY TWICE A DAY TAKING VITAMIN D (ERGOCALCIFEROL) 35656 UNIT CAPSULE 1 CAPSULE ORALLY MONTHLY TAKING POTASSIUM 10 MEQ 2 TABLETS ORAL ONCE DAILY TAKING ALLOPURINOL 300 MG TABLET 1 TABLET ORALLY ONCE A DAY TAKING COLCHICINE 0.6 MG TABLET 1 TABLET ORALLY ONCE A DAY TAKING CRANBERRY 500 MG CAPSULE 1 CAP(S) ORALLY THREE TIMES A DAY TAKING LYRICA 100 MG CAPSULE 1 CAPSULE ORALLY 3 TIMES A DAY TAKING TOUJEO SOLOSTAR 300 UNIT/ML SOLUTION PEN-INJECTOR 80 UNITS SUBCUTANEOUS 2 TIMES A DAY NOT-TAKING FLUOXETINE HCL 20 MG CAPSULE 1 CAPSULE IN THE MORNING ORALLY ONCE A DAY NOT-TAKING LACTULOSE 20 GM/30ML SOLUTION 30 ML ORALLY BID NOT-TAKING BREO ELLIPTA 100-25 MCG/INH AEROSOL POWDER BREATH ACTIVATED 1 PUFF INHALATION ONCE A DAY PRN NOT-TAKING MILK OF MAGNESIA 1200 MG/15ML SUSPENSION 5 ML NEEDED ORALLY FOUR TIMES A DAY NOT-TAKING AMLODIPINE BESYLATE 5 MG TABLET 1 TABLET ORALLY ONCE A DAY NOT-TAKING PYRIDIUM 200 MG TABLET 1 TABLET AFTER MEALS ORALLY THREE TIMES A DAY NEEDED FOR URINARY BURNING NOT-TAKING CIPROFLOXACIN HCL 500 MG TABLET 1 TABLET ORALLY EVERY 12 HRS NOT-TAKING DIFLUCAN 150MG (1 TABLET) 150 MG TABLET 1 TABLET ORALLY ONCE FOR YEAST INFECTION NOT-TAKING HUMULIN R U-500 (CONCENTRATED) 500 UNIT/ML SOLUTION 50 UNITS SUBCUTANEOUS TID NOT-TAKING K-PHOS 500 MG TABLET 1 TAB ORALLY BID NOT-TAKING RESTASIS 0.05 % EMULSION 1 INTO AFFECTED EYE OPHTHALMIC TWICE A DAY NOT-TAKING POTASSIUM CHLORIDE TABLET NOT-TAKING SPIRIVA HANDIHALER 18 MCG CAPSULE 1 CAPSULE INHALATION ONCE A DAY NOT-TAKING VERAPAMIL HCL 120 MG TABLET 1 TABLET ORALLY DAILY NOT-TAKING PYRIDIUM 100 MG TABLET 1 TABLET AFTER MEALS ORALLY THREE TIMES A DAY NEEDED FOR URINARY SYMPTOMS MEDICATION LIST REVIEWED AND RECONCILED WITH THE PATIENT PAST MEDICAL HISTORY NEUROGENIC URINARY RETENTION RECURRENT UTI HYPERTENSION INCONTIENCE,GERD MIGRAINE HX OF HEPATITIS A SEIZURES CATARACTS DVT LEFT LEG TX XARELTO CAUSED GI BLEED/ ALLYSSA FILTER ILEUS [address] TURNER EGD AND COLONOSCOPY TYPE 2 DIABETES ASTHMA KIDNEY DISEASE ARTHRITIS CHF HAS MARCAINE/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 BACK THAT AT PRESENT TIME IS TURNED DOWN TO LOWEST SETTING JUST TO KEEP OPEN ALLERGIES MORPHINE SULFATE: CONTINUOUS INFUSION--SEVERE ITCHING: ALLERGY PENTAZOCINE-NALOXONE: ALLERGY CHLORPROMAZINE: ALLERGY LORATADINE: ALLERGY PENICILLIN (FOR ALLERGIES USE ONLY): HIVES: ALLERGY CEPHALOSPORINS: ALLERGY SULFAMETHOXAZOLE-TMP DS: HIVES: ALLERGY BACTRIM: HIVES: ALLERGY SURGICAL HISTORY HYSTERECTOMY AGE 22 L4 -5 DISKECTOMY DIAPHRAGM PARALYZED- RIGHT LOWER LUNG R-BRADY 2013 HITAL HERNIA REPAIR LEFT ANKLE FX- FUSION INFUSAPORT REMOVED INFUSAPORT PLACED INFUSAPORT AND IMPLANTED PAIN PUMP RIGHT HIP REPLACEMENT SOCIAL HISTORY GENERAL: TOBACCO USE ARE YOU A:NONSMOKER LUNG CANCER SCREENING SMOKING STATUS:NON SMOKER ALCOHOL SCREENING POINTS: 0, INTERPRETATION: NEGATIVE. RECREATIONAL DRUG USE DENIES. CAFFEINE CAFFEINE USE?NO SEXUAL HX HAD SEX IN THE LAST 12 MONTHS (VAGINAL, ORAL, OR ANAL)?: YES, WITH: MEN ONLY, HAVE YOU EVER HAD AN STD?: NO. OCCUPATION: [employer] BUT BECAME DISABLED. DIET: REGULAR. EXERCISE: NO REGULAR EXERCISE. MARITAL STATUS: .. OTHERS AT HOME: OTHER NON-RELATIVE. PETS: NONE. MU-ISM [id number] JEW LANGUAGE ROMANIAN. EDUCATION LEVEL OF EDUCATION:HIGH SCHOOL LEARNING BARRIERS / SPECIAL NEEDS CHANGE FROM LAST VISIT?NO BARRIERS TO LEARNING?NO HEARING IMPAIRED?NO VISION IMPAIRED?YES COGNITIVELY IMPAIRED?NO : GLASSES READINESS TO LEARN?YES LEARNING PREFERENCES?YES :DEMONSTRATION/VERBAL INSTRUCTION LEARNING CAPABILITIES PRESENT?YES EMOTIONAL BARRIERS?NO SPECIAL DEVICES?YES :WHEELCHAIR MOTORIZED DRY PAN FEEDER NEEDED?NO PAIN CLINIC PFS, CLERGY, PUBLIC HEALTH REFERRALS PFS REFERRAL NEEDED?NO CLERGY REFERRAL NEEDED?NO PUBLIC HEALTH REFERRAL NEEDED?NO HAS THE PATIENT BEEN EDUCATED REGARDING HIS/HER PLAN OF CARE?YES PLAN OF CARE FOR THE PAIN CENTER REVIEWED WITH PT AND SHE VERBALIZED UNDERSTANDING. AD HAS THE PATIENT BEEN EDUCATED REGARDING PAIN, THE RISK FOR PAIN, THE IMPORTANCE OF EFFECTIVE PAIN MANAGEMENT, AND THE PAIN ASSESSMENT PROCESS?YES ADVANCE DIRECTIVES HEALTH CARE PROXY?YES EX- NAME OF HCP WILLIAM PAYNE CONTACT # FOR HCP [phone] DO YOU HAVE A COPY WITH YOU?NO DO YOU HAVE A DNR?NO LIVING WILL?YES DO YOU HAVE A COPY WITH YOU?NO POWER OF LURER?YES NAME OF POA? WILLIAM PAYNE PHONE # OF POA? SEE ABOVE DO YOU HAVE A COPY WITH YOU?NO HAVE YOU HAD A COPY OF ANY ADVANCED DIRECTIVE (LISTED ABOVE) ON A PREVIOUS MEDICAL RECORDS AT [facility]?YES TRAVEL OUTSIDE US: NONE. HOUSING: OWNS HOME. DOMESTIC VIOLENCE DO YOU FEEL SAFE IN YOUR ENVIRONMENT?YES HAS MOLST FORM. HOSPITALIZATION/MAJOR DIAGNOSTIC PROCEDURE RELATED FOR SURGERY ADMITTED DUE TO TROUBLE BREATHING 2012 ADMITTED DUE TO CHF ADMITTED OTHER TIMES WELL DUE TO MIGRAINE, SEIZURES, AND ETC ADMITTED DUE TO COPD, CHF, BLOOD INFECTION 04/2015 ADMITTED FOR PORT PLACEMENT 06/2015 FALL 08/2015 PNEOMINA, FLU, CHF, HYPERGYLCEMIA, DEHYDRATION 05/2016 REVIEW OF SYSTEMS REVIEWED BY: PROVIDER: CHERIE SPENCER . CONSTITUTIONAL: ANY CHANGE IN YOUR MEDICAL CONDITION? YES, PT STATES SHE JUST GOT OVER A VAGINAL INFECTION, STATES SHE TOOK ABX FOR IT AND IT IS RESOLVING. . CHILLS NO . FEVER NO . INFECTION: DO YOU HAVE NEW INFECTIONS? NO . DO YOU HAVE HISTORY OF MRSA? NO . MUSCULOSKELETAL: ANY NEW PATTERNS OF PAIN OR NUMBNESS? YES, PT C/O LEFT FOOT PAIN . GASTROENTEROLOGY: ANY NEW CHANGE IN BOWEL CONTROL? NO . GENITOURINARY: ANY NEW CHANGE IN BLADDER CONTROL? NO . IS THERE A CHANCE YOU COULD BE ? NO . HEMATOLOGY/LYMPH: DO YOU TAKE ANY BLOOD THINNERS? (FOR EXAMPLE- COUMADIN, PLAVIX, AGGRENOX, PLATEL, PRADAXA, OR XARELTO) NO . WHEN WAS YOUR LAST DOSE? DATE: TIME: . NEUROLOGY: HAVE YOU FALLEN IN THE PAST 6 MONTHS? NO . ANY NEW EXTREMITY NUMBNESS OR WEAKNESS? NO . CARDIOLOGY: DO YOU HAVE A PACEMAKER OR DEFIBRILLATOR? NO . RESPIRATORY: HAVE YOU BEEN SICK IN THE PAST WEEK? NO . FEVER NO . FLU LIKE SYMPTOMS? NO . COUGH NO . INTEGUMENTARY: DO YOU HAVE ANY RASHES OR OPEN SORES? NO . ALLERGIC/IMMUNO: ARE YOU ALLERGIC TO SHELLFISH OR IV DYE? NO . ANY NEW ALLERGIES? NO . PSYCHIATRIC: DO YOU HAVE THOUGHTS OF HURTING YOURSELF OR SOMEONE ELSE? NO . ARE YOU ABUSED, NEGLECTED, OR IN AN UNSAFE ENVIRONMENT? NO . ENDOCRINOLOGY: ARE YOU DIABETIC? YES . OTHER: DO YOU NEED ANY PRESCRIPTIONS? NO . IF YES, PLEASE LIST: ____ . ANY NEW PROBLEMS WITH YOUR MEDICATIONS? NO . WHEN DID YOU LAST EAT? ____ . WHEN DID YOU LAST DRINK? ____ . WHAT DID YOU LAST DRINK? ____ . NAME OF PERSON DRIVING YOU HOME? ____ . DO YOU HAVE ANY OTHER QUESTIONS OR CONCERNS NO . VITAL SIGNS WT 241 LBS, HT 5'7" VERBAL, BMI 37.74 INDEX, BP 132/97 MM HG, HR 92 /MIN, RR 16 /MIN, TEMP 97.9 F, OXYGEN SAT % 96, REVIEWED BY: EM. EXAMINATION GENERAL EXAMINATION: GENERAL APPEARANCE:IN W/C/SHORT OF BREATH/02 2L N/C ON.AWAKE,ALERT,ORIENTED. PSYCHAFFECT NORMAL. LUNGS:L/S DIMINISHED.TACHYPNEIC. HEART:S1, S2 IN A REGULAR RATE AND RHYTHM. NO SIGNIFICANT MURMURS, RUBS OR GALLOPS NOTED. CERVICALTRIGGER POINTS ELICITED OVER RIGHT CERVICAL/TRAPEZIUS/SCALINE. ASSESSMENTS CERVICALGIA - M54.2 (PRIMARY) MYOFASCIAL PAIN - M79.1 TREATMENT CERVICALGIA NOTES: TPI RIGHT SHOULDERPT 2XWK X 6WK-RIGHT SHOULDER/NECK-MYOFASCIAL RELEASE. PROCEDURE CODES FA211 ESTABILISHED PATIENT [facility] CHARGE G8730 PAIN ASSESS POS TOOL F/U PLAN DOC G8427 DOC MEDS VERIFIED W/PT OR RE DISPOSITION & COMMUNICATION FOLLOW UP 2WK POST (REASON: TPI RIGHT SHOULDER) ELECTRONICALLY SIGNED BY TJ SIMON ON 03/16/2017 AT 02:26 PM EST DISCLAIMER : THIS IS A VISIT SUMMARY EXTRACTED FROM THE [employer] CHART. IT IS NOT A COPY OF THE [employer] PROGRESS NOTE. JOSE R
== END ==
LOC: M PAIN 13:00
PROVIDERS: ATTEND Nurse Practitioner Family
DX: G89.29 Other chronic pain (principal); M54.2 Cervicalgia; M79.1 Myalgia; I11.0 Hypertensive heart disease with heart failure; K21.9 Gastro-esophageal reflux disease without esophagitis; G43.909 Migraine, unspecified, not intractable, without status migrainosus; R56.9 Unspecified convulsions; E11.9 Type 2 diabetes mellitus without complications; J45.909 Unspecified asthma, uncomplicated; I50.9 Heart failure, unspecified; M19.90 Unspecified osteoarthritis, unspecified site; Z87.440 Personal history of urinary (tract) infections; H26.9 Unspecified cataract; Z79.4 Long term (current) use of insulin; Z79.82 Long term (current) use of aspirin; Z79.899 Other long term (current) drug therapy; R32 Unspecified urinary incontinence; Z96.641 Presence of right artificial hip joint; Z88.5 Allergy status to narcotic agent; Z88.0 Allergy status to penicillin; Z88.1 Allergy status to other antibiotic agents; Z88.8 Allergy status to other drugs, medicaments and biological substances

== ENCOUNTER → 2017-03-15 | Outpatient (CLI) | payer MEDICARE, MEDICAID ==
[~2017-03-15] MED LIST changes: +ISOVUE-300 61% 50ML VIAL (Q9967) As Ordered ONE; +LIDOCAINE 2% MDV 20 ML VIAL As Ordered ONE
--- NOTE | 2017-03-23 23:15 | REPIR ---
DATE OF PROCEDURE: 03/15/2017 PREPROCEDURE DIAGNOSES: Dysfunctional right internal jugular vein Port-a-Cath. Status post revision with angioplasty of the innominate vein and superior vena cava due to fibrin sheath. POSTPROCEDURE DIAGNOSES: Dysfunctional right internal jugular vein Port-a-Cath. Status post revision with angioplasty of the innominate vein and superior vena cava due to fibrin sheath. PROCEDURE: Right internal jugular vein Port-a-Cath flow study. Removal of right internal jugular vein Port-a-Cath, angioplasty of the right internal jugular vein, innominate vein and superior vena cava with an 8 x 200 mm balloon, replacement of right internal jugular vein Port-a-Cath. ATTENDING SURGEON: Janine Dia MD SALES/MARKETING: Mima Amezcua ANESTHESIA: Local with 20 mL of 2% lidocaine. FLUORO TIME: 2.22 minutes. CONTRAST: 9 mL HEPARIN: None. COMPLICATIONS: None. DRAINS: None. SPECIMENS: None. INDICATION: Patient is a 71-year-old female with a nonfunctioning Port-a-Cath who will undergo evaluation with possible angioplasty and/or replacement. DESCRIPTION OF PROCEDURE: Patient was taken to the angiography suite, placed on the angiography room table and the Port-a-Cath was cannulated and a flow study performed showing a long fibrin sheath around the catheter. The Port-a-Cath was removed as well as the catheter. A wire was passed through the catheter after which an 8 x 200 balloon was used to angioplasty the right internal jugular vein, innominate vein and superior vena cava. A catheter was reinserted with a new port and this was aspirated and flushed. Noted to aspirate and flush easily and a catheter flow study was performed showing no residual fibrin sheath remaining. The incisions were closed using #2-0 Vicryl to approximate the chest incision in inverted interrupted fashion and #4-0 Monocryl to approximate the skin. Dressings were then applied. The patient tolerated the procedure well. All instruments, sponge and needle counts were correct at the end of the case. There were no complications. Dr. Dia was present for and directed the entire case. Patient was transferred to the holding area and subsequently discharged in stable condition. The Port-a-Cath is stable for use. RADIOLOGIC SUPERVISION AND INTERPRETATION: The catheter flow study showed a long fibrin sheath around the catheter. The fibrin sheath was angioplastied with an 8 x 200 balloon within the internal jugular vein, innominate vein and superior vena cava and a new port was placed. Final fluoroscopic image showed the port to be in good position and good alignment with no pneumo- or hemothorax noted.
== END | disposition home or self-care (01) ==
LOC: M IRPRO 13:28
PROVIDERS: ATTEND Internal Medicine
DX: T82.828A Fibrosis due to vascular prosthetic devices, implants and grafts, initial encounter (principal)
CPT/HCPCS: 36582; 36595; C1725; C1769; C1788; Q9967

== ENCOUNTER → 2017-03-22 | Outpatient (CLI) | payer MEDICARE, MEDICAID ==
[~2017-03-22] MED LIST changes: -/ADVA50050; -/ADVA50050 IN; -/BISO10TA OR; -/BISO10TA PO; -/CLOT10TR MT; -/DULO30CA; -/GLIM2TA; -/GLIP10TAB OR; -/METO25TA PO; -/MOXI40TA OR; -/ONDA4TA; -/ONDA4TA OR; -/SCOPPA TD; -/SCOPPA TOP; -/SUCR1TA OR; -/TIOT18INH INH; -ACET65TA; -ACET65TA OR; -ADVA115A INH; -ALBU17IN INH; -ALBU83IN IN; -ALDA25TA2 PO; -ALLE25CA; -ALLE25CA OR; -ALLE25CA PO; -ALLO15TA GT; -AMIT24CA7 PO; -AMLO5TAB2 PO; -AMMO12CR4 EX; -AMMO12CR4 TOP; -AMMONIUM LACTATE; -ASPI1TAB PO; -ASPI325T; -ASPI325T OR; -ASPI81TA45 PO; -ASPI81TA83 OR; -ASPI81TA83 PO; -ASPI81TAEC PO; -ATARAX OR; -AVAP300T OR; -BABY81CH; -BACL10TA2; -BACL10TA2 OR; -BACL10TA2 PO; -BACL1TAB8 PO; -BACL1TAB9 PO; -BACT800T OR; -BALMEX; -BALMEX CREAM EXT; -BALMEX TOP; -BETA115CR TOP; -BISO10TA PO; -BISO5TAB5 PO; -BISOPROLOL PO; -BREO1INH INH; -BUPIVACAINE; +BUPIVACAINE HCL 0.25% 10 ML VIAL As Ordered; +BUPIVACAINE HCL 0.25% 30 ML VIAL As Ordered; -CALAMINE LOTION; -CALAMINE LOTION EXT; -CALC0.5C6 PO; -CALC1CAP31 PO; -CARA1SUS; -CEPHULAC PO; -CIPR-249 PO; -CIPR-250 PO; -CIPR250T3 PO; -CIPR500T3 PO; -CLEO300C2 PO; -CLON0.1D3; -CLOTPOW; -COLA100C2; -COLA100C2 OR; -COLA100C2 PO; -COLC1TAB13 PO; -COMBIVENT; -COMBVENT; -COMBVENT INH; -COUM1TAB17 PO; -CRAN500C2 PO; -DEMA100T PO; -DEMA10TA; -DEMA20TA; -DEMA20TA6 PO; -DEMADEX; -DESONIDE; -DILA2TAB; -DOCU100C16 PO; -DOCU10CA PO; -DOXY100T OR; -DRIS50002 PO; -DULO30CA PO; -DUONSOL IN; -ECOT325T5 OR; -ESTR625TA OR; -ESTR625TA PO; -FERGON PO; -FERR325T; -FERR32TA PO; -FERROUS GLUCONATE PO; -FIOR1CAP2 PO; -FIORICET OR; -FLEET ENEMA PR; -FLON0.05; -FLOVENT INH; -FLUC10TA; -FLUC150T PO; -FLUO20CA8 PO; -FLUT11IN; -FLUT11IN IN; -FLUT11IN INH; -FOLI1TAB OR; -Fioricet PO; -GLUC5TAB3 OR; -GUAIPOW OR; -HALO0.052 TOP; -HEPARIN; -HEPARIN FLUSH; -HEPARIN FLUSH IVFLUSH; -HEPARIN LOCK FLUSH IV; -HUMU500S2 SC; -HYDR25TA7; -HYDR4TAB; -HYDR4TAB OR; -HYDR4TAB PO; -HYDR50TA8 OR; -HYDROCORTISONE0.5 %; -HYDROCORTISONE0.5 % EXT; -HYDROXYZINE OR; -INCR1INH IN; -INCR1INH INH; -INSUDET SC; -INSUH10VL SC; -INSUHUMDS SC; -INSULADS INJ; -INSULADS SC; -INSULANT SC; -INSULIN LANTUS SC; -IPRASOL4 INH; -ISOVUE-300 61% 50ML VIAL (Q9967) As Ordered ONE; -JANUVIA OR; -JANUVIA PO; -KEPP1TAB PO; -KEPP250T5 PO; -KEPPRA OR; -KEPPRA PO; -KETO0.05 TOP; -KETO0.5S15 OD; -KLOR1TAB73 PO; -LACT10SO29 PO; -LACT10SO8; -LACT10SO8 OR; -LANTUS INSULIN SC; -LASI80TA PO; -LEVA1TAB PO; -LEVA500T OR; -LEVA750T7 PO; -LEVE250T5 PO; -LIDO1OIN2 TOP; -LIDOCAINE 2% MDV 20 ML VIAL As Ordered ONE; -LOPR50TA OR; -LORA0.5T OR; -LYRI75CA PO; -MAALSUS; -MAALSUS OR; -MAALSUS PO; -MACR50CA OR; -MACROBID OR; -MACROBID PO; -MARCAINE; -MARCAINE INJ; -METO10TA2 OR; -METO10TA2 PO; -METO25TA PO; -METO25TA2; -METO25TA2 OR; -METO5TA PO; -MILKSUS OR; -MILKSUS PO; -MIRA3350 PO; -MIRALEX OR; -MORPHINE; -MUCI600T31 PO; -MUCI600T37 PO; -MUCINEX; -NAPR500T81; -NAPRPOW4; -NITRO10CA PO; -NOVALOG INSULIN SC; -NOVOINJ3 SC; -NOVOLOG100 MG/ML SC; -NYST1POW9; -NYST1POW9 TOP; -NYSTATIN; -NYSTATIN EXT; -NYSTATIN POWDER; -NYSTATIN POWDER TOP; -NYSTATIN TOP; -NYSTPOW4 TOP; -OMEP20CA3 PO; -OMEP20TA7 OR; -ONDA4TAB5 PO; -OXYC10TA12; -OXYC10TA56 OR; -OXYC1TAB23 PO; -OXYC5CAP4; -OXYC5CAP4 OR; -OXYC5CAP4 PO; -PAIN PUMP; -PAIN325T; -PAIN325T OR; -PAXI20TA; -PHEN 25; -PHEN 25 OR; -PHEN 25 PO; -PHENERGAN; -POTA10CA PO; -POTA10CA2; -POTA10CA32 PO; -POTA20TA2; -POTA20TA2 OR; -POTA50TAB PO; -POTASSIUM CLORIDE OR; -POTASSIUM OR; -PRED10PA PO; -PRED10PA2 PO; -PRED10TA2; -PRED10TA2 OR; -PRED10TA2 PO; -PRED20TA OR; -PRED5TA PO; -PRED5TAB OR; -PREDOPD OD; -PREG100CA PO; -PREG25CA; -PREG50CA PO; -PREM0.9T; -PRIALT INJ; -PRIL20CA; -PRIL20CA OR; -PROAAER10 INH; -PROM-190 PO; -PROM25TA PO; -PROZ20CA; -PROZ20CA OR; -PROZ40CA PO; -Pain Pump; -REGL10TA6 PO; -REST0.05 OU; -RESTASIS 0.05% OU; -ROBITUSSIN OR; -ROBITUSSIN OTC OR; -ROBUTUSSIN; -ROCA0.5C PO; -SALINE FLUSH IV; -SALINE LOCK FLUSH IV; -SALISOL7; -SENN15TA2 OR; -SENN187T; -SENN187T OR; -SENN8.6T5 OR; -SENO8.6T5 PO; -SILVADENE; -SILVADENE CREAM; -SILVADENE TOP; -SIME125C; -SPIR1CAP INH; -SPIR25TA2 OR; -SPIR25TA2 PO; -STARLIX PO; -SUCR1TAB56 PO; -TIOT18INH INH; -TOPR25TA; -TORS100T PO; -TORS10TA3 PO; -TORS20TA2 OR; -TORS20TA2 PO; -TOUJ1.2I SC; -TRAM50TA2; -TRAM50TA2 OR; -TRAN1.5D2 TOP; +TRIAMCINOLONE ACETONIDE SUSP 40 MG/ML VIAL (J3301) As Ordered; -TYLE325T5 PO; -TYLE650T35 PO; -VANC10005 INJ; -VERA120C; -VERA120C PO; -VERA12TASA OR; -VERA1TAB10 PO; -VICT18IN SC; -VIGA0.02 OD; -VITA1CAP40 PO; -VITA500047 PO; -XARE15TA PO; -XARE20TA PO; -Z PACK; -ZARO2.5T OR; -ZITH500T; -ZOFR20TA PO; -ZOFR4TAB3 PO; -ZOFR8TAB; -ZYLE0.5S OU; -ZYLO300T4 PO; -[UNRECOGNIZED DRUG - CODE] IT; -[UNRECOGNIZED DRUG - CODE] IT; -[UNRECOGNIZED DRUG - CODE] PO; -[UNRECOGNIZED DRUG - CODE] PO; -[UNRECOGNIZED DRUG - CODE] PV; -[UNRECOGNIZED DRUG - OTHER]; -[UNRECOGNIZED DRUG - OTHER]; -[UNRECOGNIZED DRUG - OTHER]; -[UNRECOGNIZED DRUG - OTHER] OR; -guaifenesin; -home o2; -hydroxyzine; -lopressor; -oxygen; -starlix PO
== END ==
LOC: M PAIN 14:30
DX: G89.29 Other chronic pain (principal); M25.511 Pain in right shoulder; M79.1 Myalgia; G43.909 Migraine, unspecified, not intractable, without status migrainosus; R56.9 Unspecified convulsions; E11.9 Type 2 diabetes mellitus without complications; I12.9 Hypertensive chronic kidney disease with stage 1 through stage 4 chronic kidney disease, or unspecified chronic kidney disease; N18.9 Chronic kidney disease, unspecified; Z88.5 Allergy status to narcotic agent; Z88.8 Allergy status to other drugs, medicaments and biological substances; Z88.0 Allergy status to penicillin; Z88.2 Allergy status to sulfonamides; Z88.1 Allergy status to other antibiotic agents; Z79.899 Other long term (current) drug therapy
CPT/HCPCS: J3301

== ENCOUNTER → 2017-04-15 | Outpatient (CLI) | payer MEDICARE, MEDICAID | LOC: M PAIN 13:00 | DX: M54.2 Cervicalgia (principal); M79.1 Myalgia; E11.22 Type 2 diabetes mellitus with diabetic chronic kidney disease; I12.9 Hypertensive chronic kidney disease with stage 1 through stage 4 chronic kidney disease, or unspecified chronic kidney disease; N18.9 Chronic kidney disease, unspecified; K21.9 Gastro-esophageal reflux disease without esophagitis; G43.909 Migraine, unspecified, not intractable, without status migrainosus; R59.0 Localized enlarged lymph nodes; M19.90 Unspecified osteoarthritis, unspecified site; Z79.4 Long term (current) use of insulin; Z79.82 Long term (current) use of aspirin; Z79.899 Other long term (current) drug therapy; Z88.0 Allergy status to penicillin; Z88.1 Allergy status to other antibiotic agents; Z88.2 Allergy status to sulfonamides; Z88.5 Allergy status to narcotic agent; Z88.8 Allergy status to other drugs, medicaments and biological substances | CPT/HCPCS: G0463 ==

== ENCOUNTER 2017-04-24 20:46 | Inpatient (IN) | payer MEDICARE, MEDICAID ==
[2017-04-24] MEDS: DOCUSATE SODIUM 100 MG CAP PO (21:00)
[2017-04-24] MEDS: NS 500 ML IV (22:15)
[2017-04-24 22:17] LABS: BASO # 0.1 10^3/uL (0.0-0.2); EOS # 0.2 10^3/uL (0.0-0.50); EOS % 2.6 % (0.0-3.0); HEMOGLOBIN 8.3 g/dl (12.0-16.0); IMMATURE GRANULOCYTE # 0.1 10^3/uL (0-0); LYMPH # 2.6 10^3/uL (1.5-4.5); LYMPH % 28.5 % (24.0-44.0); MEAN CORPUSCULAR HEMOGLOBIN 18.4 pg (27.0-33.0); MEAN CORPUSCULAR HGB CONC 26.8 g/dl (32.0-36.5); MEAN CORPUSCULAR VOLUME 68.7 fl (80.0-96.0); MONO % 11.3 % (0.0-5.0); NEUTROPHILS % 55.6 % (36.0-66.0); PLATELET COUNT, AUTOMATED 354 10^3/uL (150-450); RED BLOOD COUNT 4.51 10^6/uL (4.00-5.40); RED CELL DISTRIBUTION WIDTH 19.5 % (11.5-14.5)
[2017-04-24 22:21] LABS: INR 0.97
[2017-04-24 22:28] LABS: ALBUMIN 3.1 GM/DL (3.2-5.2); ALBUMIN/GLOBULIN RATIO 0.91 (1.00-1.93); ALKALINE PHOSPHATASE 138 U/L (45-117); ALT/SGPT 30 U/L (12-78); ANION GAP 8 MEQ/L (8-16); AST/SGOT 30 U/L (7-37); BILIRUBIN,DIRECT 0.1 MG/DL (0.0-0.2); BILIRUBIN,TOTAL 0.3 MG/DL (0.2-1.0); BLOOD UREA NITROGEN 24 MG/DL (7-18); CALCIUM LEVEL 8.8 MG/DL (8.8-10.2); CARBON DIOXIDE LEVEL 33 MEQ/L (21-32); CHLORIDE LEVEL 95 MEQ/L (98-107); CREATININE FOR GFR 2.21 MG/DL (0.55-1.02); GLOMERULAR FILTRATION RATE 23.2 (>39); GLUCOSE, FASTING 259 MG/DL (83-110); NT-PRO BNP 173 PG/ML (<125); SODIUM LEVEL 136 MEQ/L (136-145); TOTAL PROTEIN 6.5 GM/DL (6.4-8.2)
[2017-04-24] MEDS: ACETAMINOPHEN TAB 650MG DOSE (2X325MG) PO (23:30)
[2017-04-25] MEDS ORDERED: ONDANSETRON 4MG/2ML VIAL (J2405) IV
[2017-04-25] MEDS ORDERED: MOM 30ML SUSPENSION UDC PO (00:30)
[2017-04-25] MEDS ORDERED: NYSTATIN 100,000 UNITS/GM TOPICAL PWD 15 GM TOP (00:30)
[2017-04-25] MEDS ORDERED: BETAMETHASONE VAL 0.1% CR 15 GM TOP (00:30)
[2017-04-25 04:50] LABS: IMMEDIATE SPIN CROSSMATCH 1 1
[2017-04-25] MEDS ORDERED: DEXTROSE 50% 50 ML SYRINGE IV (07:30)
[2017-04-25] MEDS ORDERED: GLUCAGON FOR INJ 1 MG VIAL (J1610) SC (07:30)
[2017-04-25] MEDS ORDERED: GLUCOSE 4 GM CHEW TABLET PO (07:30)
[2017-04-25 08:02] LABS: BEDSIDE GLUCOSE 286 MG/DL (83-110)
[2017-04-25] MEDS: LACTULOSE 20 GM/30 ML SYRUP UD PO ×2 (08:25→21:44)
[2017-04-25] MEDS: LACTIC ACID 12% LOTION 225 GM BTL TOP ×2 (08:25→21:47)
[2017-04-25] MEDS: LEVEMIR (INSULIN DETEMIR) 1 UNITS/0.01ML SC ×2 (08:26→21:47)
[2017-04-25] MEDS: PANTOPRAZOLE 40MG INJ (PROTONIX) (C9113) IV (08:26)
[2017-04-25] MEDS: HumaLOG INSULIN (NovoLOG) PER UNIT SC ×4 (08:26→21:46)
[2017-04-25] MEDS: ALLOPURINOL 300 MG TAB PO (08:27)
[2017-04-25] MEDS: SUCRALFATE 1 GM TAB PO ×2 (08:27→21:43)
[2017-04-25] MEDS: SENOKOT S TAB PO ×2 (08:27→21:58)
[2017-04-25] MEDS: PREGABALIN 75 MG CAP(LYRICA) PO ×2 (08:27→21:45)
[2017-04-25] MEDS: levETIRAcetam 250MG TABLET (KEPPRA) PO ×2 (08:28→21:45)
[2017-04-25] MEDS: DOCUSATE SODIUM 100 MG CAP PO ×2 (08:29→21:44)
[2017-04-25] MEDS: BISOPROLOL FUMARATE 5 MG TAB PO (08:29)
[2017-04-25 08:50] LABS: HEMATOCRIT 31.3 % (36.0-47.0); HEMOGLOBIN 8.7 g/dl (12.0-16.0); MEAN CORPUSCULAR HEMOGLOBIN 19.6 pg (27.0-33.0); MEAN CORPUSCULAR HGB CONC 27.8 g/dl (32.0-36.5); MEAN CORPUSCULAR VOLUME 70.7 fl (80.0-96.0); PLATELET COUNT, AUTOMATED 297 10^3/uL (150-450); RED BLOOD COUNT 4.43 10^6/uL (4.00-5.40); RED CELL DISTRIBUTION WIDTH 21.6 % (11.5-14.5); WHITE BLOOD COUNT 7.2 10^3/uL (4.0-10.0)
[2017-04-25 09:13] LABS: ANION GAP 7 MEQ/L (8-16); BLOOD UREA NITROGEN 29 MG/DL (7-18); CALCIUM LEVEL 8.5 MG/DL (8.8-10.2); CARBON DIOXIDE LEVEL 33 MEQ/L (21-32); CHLORIDE LEVEL 98 MEQ/L (98-107); CPK CREATINE PHOSPHOKINASE 35 U/L (26-192); GLOMERULAR FILTRATION RATE 27.7 (>39); GLUCOSE, FASTING 279 MG/DL (83-110); MB/CK RELATIVE INDEX 2.85 (< OR =4); POTASSIUM SERUM 3.6 MEQ/L (3.5-5.1); SODIUM LEVEL 138 MEQ/L (136-145); TROPONIN I < 0.02 NG/ML (< 0.10)
[2017-04-25 12:13] LABS: BEDSIDE GLUCOSE 364 MG/DL (83-110)
[2017-04-25] MEDS: PNEUMOCOCCAL VACCINE 0.5ML SYRINGE(90732) PNEUMOVAX 23 IM (12:35)
[2017-04-25 14:26] LABS: HEMATOCRIT 33.2 % (36.0-47.0); HEMOGLOBIN 9.2 g/dl (12.0-16.0)
[2017-04-25 14:52] LABS: CPK CREATINE PHOSPHOKINASE 39 U/L (26-192); TROPONIN I < 0.02 NG/ML (< 0.10)
[2017-04-25 14:53] LABS: MB/CK RELATIVE INDEX 2.56 (< OR =4)
[2017-04-25 17:20] LABS: BEDSIDE GLUCOSE 441 MG/DL (83-110)
[2017-04-25] MEDS: MORPHINE 2 MG/ML 1ML SYRINGE (J2270) IV (18:29)
[2017-04-25] MEDS ORDERED: HumaLOG INSULIN (NovoLOG) PER UNIT SC (21:00)
[2017-04-25 21:34] LABS: BEDSIDE GLUCOSE 479 MG/DL (83-110)
[2017-04-26] MEDS: MORPHINE 2 MG/ML 1ML SYRINGE (J2270) IV ×3 (01:41→21:09)
[2017-04-26 05:50] LABS: HEMATOCRIT 30.9 % (36.0-47.0); HEMOGLOBIN 8.4 g/dl (12.0-16.0); MEAN CORPUSCULAR HEMOGLOBIN 19.3 pg (27.0-33.0); MEAN CORPUSCULAR HGB CONC 27.2 g/dl (32.0-36.5); PLATELET COUNT, AUTOMATED 290 10^3/uL (150-450); RED BLOOD COUNT 4.35 10^6/uL (4.00-5.40); RED CELL DISTRIBUTION WIDTH 21.2 % (11.5-14.5); WHITE BLOOD COUNT 6.1 10^3/uL (4.0-10.0)
[2017-04-26 06:12] LABS: ANION GAP 8 MEQ/L (8-16); BLOOD UREA NITROGEN 23 MG/DL (7-18); CALCIUM LEVEL 8.9 MG/DL (8.8-10.2); CARBON DIOXIDE LEVEL 31 MEQ/L (21-32); CHLORIDE LEVEL 99 MEQ/L (98-107); CREATININE FOR GFR 1.71 MG/DL (0.55-1.02); GLOMERULAR FILTRATION RATE 31.2 (>39); GLUCOSE, FASTING 357 MG/DL (70-100); POTASSIUM SERUM 3.8 MEQ/L (3.5-5.1); SODIUM LEVEL 138 MEQ/L (136-145)
[2017-04-26] MEDS: LACTULOSE 20 GM/30 ML SYRUP UD PO ×2 (08:45→21:02)
[2017-04-26] MEDS: PANTOPRAZOLE 40MG INJ (PROTONIX) (C9113) IV (08:46)
[2017-04-26] MEDS: HumaLOG INSULIN (NovoLOG) PER UNIT SC ×4 (08:46→21:04)
[2017-04-26] MEDS: SUCRALFATE 1 GM TAB PO ×2 (08:47→21:03)
[2017-04-26] MEDS: DOCUSATE SODIUM 100 MG CAP PO ×2 (08:47→21:03)
[2017-04-26] MEDS: SENOKOT S TAB PO ×2 (08:47→21:03)
[2017-04-26] MEDS: ALLOPURINOL 300 MG TAB PO (08:47)
[2017-04-26] MEDS: LEVEMIR (INSULIN DETEMIR) 1 UNITS/0.01ML SC ×2 (08:47→21:05)
[2017-04-26] MEDS: PREGABALIN 75 MG CAP(LYRICA) PO ×2 (08:48→21:03)
[2017-04-26] MEDS: BISOPROLOL FUMARATE 5 MG TAB PO (08:49)
[2017-04-26] MEDS: levETIRAcetam 250MG TABLET (KEPPRA) PO ×2 (08:49→21:03)
[2017-04-26] MEDS: LACTIC ACID 12% LOTION 225 GM BTL TOP ×2 (08:50→21:05)
[2017-04-26] MEDS: ACETAMINOPHEN TAB 650MG DOSE (2X325MG) PO (08:50)
[2017-04-26 13:23] LABS: BEDSIDE GLUCOSE 334 MG/DL (83-110)
[2017-04-26 14:05] LABS: BEDSIDE GLUCOSE 272 MG/DL (83-110)
[2017-04-26 16:14] LABS: IMMEDIATE SPIN CROSSMATCH 1 1
[2017-04-26 17:40] LABS: BEDSIDE GLUCOSE 342 MG/DL (83-110)
[2017-04-26 20:52] LABS: BEDSIDE GLUCOSE 325 MG/DL (83-110)
[2017-04-26] MEDS: IPRATROPIUM 0.5MG/ALBUTEROL 2.5MG INH SOL UD 3ML (DUONEB)(J7620) NEB (21:31)
[2017-04-27] MEDS: NYSTATIN CREAM 15 GM TOP (02:06)
[2017-04-27] MEDS: MORPHINE 2 MG/ML 1ML SYRINGE (J2270) IV ×3 (02:07→20:24)
[2017-04-27 06:53] LABS: HEMATOCRIT 34.2 % (36.0-47.0); HEMOGLOBIN 9.5 g/dl (12.0-16.0); MEAN CORPUSCULAR HEMOGLOBIN 20.7 pg (27.0-33.0); MEAN CORPUSCULAR HGB CONC 27.8 g/dl (32.0-36.5); MEAN CORPUSCULAR VOLUME 74.7 fl (80.0-96.0); PLATELET COUNT, AUTOMATED 272 10^3/uL (150-450); RED BLOOD COUNT 4.58 10^6/uL (4.00-5.40); RED CELL DISTRIBUTION WIDTH 22.5 % (11.5-14.5); WHITE BLOOD COUNT 7.2 10^3/uL (4.0-10.0)
[2017-04-27 07:10] LABS: ANION GAP 8 MEQ/L (8-16); BLOOD UREA NITROGEN 16 MG/DL (7-18); CALCIUM LEVEL 9.2 MG/DL (8.8-10.2); CARBON DIOXIDE LEVEL 29 MEQ/L (21-32); CHLORIDE LEVEL 103 MEQ/L (98-107); CREATININE FOR GFR 1.44 MG/DL (0.55-1.02); GLOMERULAR FILTRATION RATE 38.1 (>39); GLUCOSE, FASTING 356 MG/DL (70-100); POTASSIUM SERUM 4.2 MEQ/L (3.5-5.1); SODIUM LEVEL 140 MEQ/L (136-145)
[2017-04-27] MEDS: LACTULOSE 20 GM/30 ML SYRUP UD PO ×2 (08:22→20:20)
[2017-04-27] MEDS: PANTOPRAZOLE 40MG INJ (PROTONIX) (C9113) IV (08:22)
[2017-04-27] MEDS: HumaLOG INSULIN (NovoLOG) PER UNIT SC ×4 (08:22→20:22)
[2017-04-27] MEDS: LEVEMIR (INSULIN DETEMIR) 1 UNITS/0.01ML SC ×2 (08:23→20:21)
[2017-04-27] MEDS: levETIRAcetam 250MG TABLET (KEPPRA) PO ×2 (08:24→20:21)
[2017-04-27] MEDS: SENOKOT S TAB PO ×2 (08:24→20:20)
[2017-04-27] MEDS: ALLOPURINOL 300 MG TAB PO (08:24)
[2017-04-27] MEDS: DOCUSATE SODIUM 100 MG CAP PO ×2 (08:24→20:20)
[2017-04-27] MEDS: SUCRALFATE 1 GM TAB PO ×2 (08:24→20:20)
[2017-04-27] MEDS: PREGABALIN 75 MG CAP(LYRICA) PO ×2 (08:25→20:20)
[2017-04-27] MEDS: BISOPROLOL FUMARATE 5 MG TAB PO (08:25)
[2017-04-27] MEDS: LACTIC ACID 12% LOTION 225 GM BTL TOP ×2 (08:42→20:23)
[2017-04-27 16:54] LABS: BEDSIDE GLUCOSE 263 MG/DL (83-110)
[2017-04-27 20:52] LABS: BEDSIDE GLUCOSE 360 MG/DL (83-110)
[2017-04-28] MEDS: MORPHINE 2 MG/ML 1ML SYRINGE (J2270) IV ×4 (05:15→21:38)
[2017-04-28] MEDS: SODIUM CHLORIDE 0.9% INJ 10 ML SYR IV ×3 (05:52→21:38)
[2017-04-28] MEDS ORDERED: ISOVUE-300 61% 50ML VIAL (Q9967) As Ordered (06:50)
[2017-04-28] MEDS ORDERED: LIDOCAINE 2% MDV 20 ML VIAL As Ordered (06:50)
[2017-04-28 08:23] LABS: HEMATOCRIT 35.3 % (36.0-47.0); HEMOGLOBIN 9.7 g/dl (12.0-16.0); MEAN CORPUSCULAR HEMOGLOBIN 20.9 pg (27.0-33.0); MEAN CORPUSCULAR HGB CONC 27.5 g/dl (32.0-36.5); MEAN CORPUSCULAR VOLUME 75.9 fl (80.0-96.0); PLATELET COUNT, AUTOMATED 253 10^3/uL (150-450); RED BLOOD COUNT 4.65 10^6/uL (4.00-5.40); RED CELL DISTRIBUTION WIDTH 23.2 % (11.5-14.5); WHITE BLOOD COUNT 8.1 10^3/uL (4.0-10.0)
[2017-04-28 08:47] LABS: ANION GAP 4 MEQ/L (8-16); BLOOD UREA NITROGEN 12 MG/DL (7-18); CARBON DIOXIDE LEVEL 29 MEQ/L (21-32); CHLORIDE LEVEL 106 MEQ/L (98-107); CREATININE FOR GFR 1.34 MG/DL (0.55-1.02); GLOMERULAR FILTRATION RATE 41.4 (>39); GLUCOSE, FASTING 373 MG/DL (70-100); POTASSIUM SERUM 4.4 MEQ/L (3.5-5.1); SODIUM LEVEL 139 MEQ/L (136-145)
[2017-04-28] MEDS: SUCRALFATE 1 GM TAB PO ×2 (09:12→21:37)
[2017-04-28] MEDS: LACTULOSE 20 GM/30 ML SYRUP UD PO ×2 (09:12→21:39)
[2017-04-28] MEDS: PREGABALIN 75 MG CAP(LYRICA) PO ×2 (09:13→21:37)
[2017-04-28] MEDS: levETIRAcetam 250MG TABLET (KEPPRA) PO ×2 (09:13→21:37)
[2017-04-28] MEDS: BISOPROLOL FUMARATE 5 MG TAB PO (09:16)
[2017-04-28] MEDS: ALLOPURINOL 300 MG TAB PO (09:17)
[2017-04-28] MEDS: DOCUSATE SODIUM 100 MG CAP PO ×2 (09:17→21:37)
[2017-04-28] MEDS: SENOKOT S TAB PO ×2 (09:17→21:51)
[2017-04-28] MEDS: HumaLOG INSULIN (NovoLOG) PER UNIT SC ×4 (09:18→21:39)
[2017-04-28] MEDS: LEVEMIR (INSULIN DETEMIR) 1 UNITS/0.01ML SC ×2 (09:18→21:39)
[2017-04-28] MEDS: PANTOPRAZOLE 40MG INJ (PROTONIX) (C9113) IV (09:19)
[2017-04-28] MEDS: LACTIC ACID 12% LOTION 225 GM BTL TOP ×2 (09:20→21:40)
[2017-04-28 11:55] LABS: BEDSIDE GLUCOSE 355 MG/DL (83-110)
[2017-04-28] MEDS: guaiFENesin ER 600 MG TAB PO ×2 (13:12→21:37)
[2017-04-28] MEDS: ACETAMINOPHEN TAB 650MG DOSE (2X325MG) PO (15:23)
[2017-04-28 17:10] LABS: BEDSIDE GLUCOSE 392 MG/DL (83-110)
[2017-04-28 20:50] LABS: BEDSIDE GLUCOSE 318 MG/DL (83-110)
[2017-04-29] MEDS: MORPHINE 2 MG/ML 1ML SYRINGE (J2270) IV (03:32)
[2017-04-29] MEDS: SODIUM CHLORIDE 0.9% INJ 10 ML SYR IV ×3 (03:36→08:51)
[2017-04-29 05:42] LABS: HEMOGLOBIN 8.8 g/dl (12.0-16.0); MEAN CORPUSCULAR HEMOGLOBIN 20.6 pg (27.0-33.0); MEAN CORPUSCULAR HGB CONC 27.5 g/dl (32.0-36.5); MEAN CORPUSCULAR VOLUME 74.9 fl (80.0-96.0); PLATELET COUNT, AUTOMATED 238 10^3/uL (150-450); RED BLOOD COUNT 4.27 10^6/uL (4.00-5.40); WHITE BLOOD COUNT 5.3 10^3/uL (4.0-10.0)
[2017-04-29 06:02] LABS: ANION GAP 4 MEQ/L (8-16); BLOOD UREA NITROGEN 10 MG/DL (7-18); CALCIUM LEVEL 8.4 MG/DL (8.8-10.2); CARBON DIOXIDE LEVEL 32 MEQ/L (21-32); CHLORIDE LEVEL 107 MEQ/L (98-107); CREATININE FOR GFR 1.09 MG/DL (0.55-1.02); GLOMERULAR FILTRATION RATE 52.5 (>39); GLUCOSE, FASTING 230 MG/DL (70-100); POTASSIUM SERUM 3.9 MEQ/L (3.5-5.1); SODIUM LEVEL 143 MEQ/L (136-145)
[2017-04-29] MEDS: LACTULOSE 20 GM/30 ML SYRUP UD PO (08:48)
[2017-04-29] MEDS: SENOKOT S TAB PO (08:49)
[2017-04-29] MEDS: guaiFENesin ER 600 MG TAB PO (08:49)
[2017-04-29] MEDS: levETIRAcetam 250MG TABLET (KEPPRA) PO (08:49)
[2017-04-29] MEDS: PANTOPRAZOLE 40MG INJ (PROTONIX) (C9113) IV (08:50)
[2017-04-29] MEDS: SUCRALFATE 1 GM TAB PO (08:50)
[2017-04-29] MEDS: HumaLOG INSULIN (NovoLOG) PER UNIT SC ×2 (08:50→12:11)
[2017-04-29] MEDS: PREGABALIN 75 MG CAP(LYRICA) PO (08:50)
[2017-04-29] MEDS: ALLOPURINOL 300 MG TAB PO (08:50)
[2017-04-29] MEDS: DOCUSATE SODIUM 100 MG CAP PO (08:50)
[2017-04-29] MEDS: LEVEMIR (INSULIN DETEMIR) 1 UNITS/0.01ML SC (08:51)
[2017-04-29] MEDS: BISOPROLOL FUMARATE 5 MG TAB PO (08:58)
[2017-04-29] MEDS: LACTIC ACID 12% LOTION 225 GM BTL TOP (09:00)
[2017-04-29 10:31] LABS: RHEUMATOID FACTOR QUANT < 10.0 IU/ML (0-15.0)
[2017-04-29 12:14] LABS: BEDSIDE GLUCOSE 291 MG/DL (83-110)
[2017-05-02 00:09] LABS: CYCLIC CITRULLINATED PEPTIDE < 1 units (0-19)
== END 2017-04-29 15:17 | disposition home health service (06) | DRG 378 ==
LOC: M ED INP 23:46 → M PCU 04-25 01:12 → M MSPAV 04-26 14:30 → M ED 20:46
PROC: 30233N1 Transfusion of Nonautologous Red Blood Cells into Peripheral Vein, Percutaneous Approach (ICD-10-PCS; principal; 2017-04-26)
PROC: 3C1ZX8Z Irrigation of Indwelling Device using Irrigating Substance, External Approach (ICD-10-PCS; 2017-04-26)
PROC: 0JPV3WZ Removal of Totally Implantable Vascular Access Device from Upper Extremity Subcutaneous Tissue and Fascia, Percutaneous Approach (ICD-10-PCS; 2017-04-28)
PROC: 0JH63WZ Insertion of Totally Implantable Vascular Access Device into Chest Subcutaneous Tissue and Fascia, Percutaneous Approach (ICD-10-PCS; 2017-04-28)
DX: K92.2 Gastrointestinal hemorrhage, unspecified (principal); J96.11 Chronic respiratory failure with hypoxia; D62 Acute posthemorrhagic anemia; N17.9 Acute kidney failure, unspecified; I50.32 Chronic diastolic (congestive) heart failure; E66.2 Morbid (severe) obesity with alveolar hypoventilation; T82.868A Thrombosis due to vascular prosthetic devices, implants and grafts, initial encounter; N18.3 Chronic kidney disease, stage 3 (moderate); M10.9 Gout, unspecified; J45.909 Unspecified asthma, uncomplicated; K21.9 Gastro-esophageal reflux disease without esophagitis; G40.909 Epilepsy, unspecified, not intractable, without status epilepticus; G43.909 Migraine, unspecified, not intractable, without status migrainosus; K64.1 Second degree hemorrhoids; K64.2 Third degree hemorrhoids; Z86.718 Personal history of other venous thrombosis and embolism; E55.9 Vitamin D deficiency, unspecified; K58.8 Other irritable bowel syndrome; Z79.899 Other long term (current) drug therapy; F32.9 Major depressive disorder, single episode, unspecified; Z79.4 Long term (current) use of insulin; Z79.82 Long term (current) use of aspirin; Z88.2 Allergy status to sulfonamides; Z88.1 Allergy status to other antibiotic agents; Z88.8 Allergy status to other drugs, medicaments and biological substances; Z91.040 Latex allergy status; E11.9 Type 2 diabetes mellitus without complications

== ENCOUNTER → 2017-05-03 | Outpatient (REF) | payer MEDICARE, MEDICAID ==
[2017-05-03 21:07] LABS: HEMOGLOBIN 10.5 g/dl (12.0-16.0)
== END ==
LOC: M LAB REF 09:07
DX: K92.2 Gastrointestinal hemorrhage, unspecified (principal)
CPT/HCPCS: 85018

== ENCOUNTER → 2017-05-06 | Outpatient (REF) | payer MEDICARE, MEDICAID ==
[2017-05-06 18:45] LABS: RHEUMATOID FACTOR QUANT < 10.0 IU/ML (0-15.0)
[2017-05-09 14:12] LABS: ANTINUCLEAR ANTIBODIES DIRECT Negative (Negative)
== END ==
LOC: M LAB REF 17:44
DX: M25.50 Pain in unspecified joint (principal)
CPT/HCPCS: 86038

== ENCOUNTER → 2017-05-11 | Outpatient (REF) | payer MEDICARE, MEDICAID | LOC: M LAB REF 17:44 | DX: R19.7 Diarrhea, unspecified (principal) | CPT/HCPCS: 87493 ==

== ENCOUNTER → 2017-05-13 | Outpatient (REF) | payer MEDICARE, MEDICAID ==
[2017-05-13 19:20] LABS: BASO # 0.2 10^3/uL (0.0-0.2); BASO % 1.6 % (0.0-1.0); EOS # 0.3 10^3/uL (0.0-0.50); EOS % 3.2 % (0.0-3.0); HEMATOCRIT 36.3 % (36.0-47.0); HEMOGLOBIN 10.3 g/dl (12.0-16.0); IMMATURE GRANULOCYTE # 0.1 10^3/uL (0-0); IMMATURE GRANULOCYTE % 0.9 % (0-3.0); LYMPH # 2.8 10^3/uL (1.5-4.5); MEAN CORPUSCULAR HEMOGLOBIN 20.2 pg (27.0-33.0); MEAN CORPUSCULAR HGB CONC 28.4 g/dl (32.0-36.5); MEAN CORPUSCULAR VOLUME 71.3 fl (80.0-96.0); MONO # 0.9 10^3/uL (0.0-0.8); MONO % 9.5 % (0.0-5.0); NEUTROPHILS # 5.6 10^3/uL (1.8-7.7); NEUTROPHILS % 56.8 % (36.0-66.0); PLATELET COUNT, AUTOMATED 332 10^3/uL (150-450); RED BLOOD COUNT 5.09 10^6/uL (4.00-5.40); RED CELL DISTRIBUTION WIDTH 22.4 % (11.5-14.5); WHITE BLOOD COUNT 9.9 10^3/uL (4.0-10.0)
== END ==
LOC: M LAB REF 18:39
DX: D64.9 Anemia, unspecified (principal)
CPT/HCPCS: 85027

== ENCOUNTER → 2017-06-17 | Outpatient (REF) | payer MEDICARE, MEDICAID ==
[2017-06-17 18:30] LABS: APPEARANCE, URINE HAZY (CLEAR); BACTERIA, URINE AUTO 2+ (NEGATIVE); BILIRUBIN, URINE AUTO NEGATIVE (NEGATIVE); BLOOD, URINE BLOOD 1+ (NEGATIVE); COLOR, URINE YELLOW (YELLOW); GLUCOSE, URINE (UA) AUTO 3+ mg/dL (NEGATIVE); KETONE, URINE AUTO NEGATIVE (NEGATIVE); LEUKOCYTE ESTERASE, URINE AUTO 3+ (NEGATIVE); MUCUS, URINE SMALL (NEGATIVE); NITRITE, URINE AUTO NEGATIVE (NEGATIVE); PROTEIN, URINE AUTO NEGATIVE (NEGATIVE); RBC, URINE AUTO 6 /HPF (0-3); SPECIFIC GRAVITY URINE AUTO 1.005 (1.002-1.035); SQUAMOUS EPITHELIAL CELL UR AU 1 /HPF (0-6); UROBILINOGEN, URINE AUTO 0.2 mg/dL (0.0-2.0); WBC, URINE AUTO 103 /HPF (0-3)
== END ==
LOC: M SMT 17:02
DX: N39.0 Urinary tract infection, site not specified (principal)
CPT/HCPCS: 81001

== ENCOUNTER → 2017-06-22 | Outpatient (REF) | payer MEDICARE, MEDICAID ==
[2017-06-22 16:14] LABS: BASO # 0.1 10^3/uL (0.0-0.2); EOS # 0.4 10^3/uL (0.0-0.50); EOS % 5.2 % (0.0-3.0); HEMATOCRIT 32.9 % (36.0-47.0); HEMOGLOBIN 8.9 g/dl (12.0-16.0); IMMATURE GRANULOCYTE % 0.5 % (0-3.0); LYMPH % 27.5 % (24.0-44.0); MEAN CORPUSCULAR HEMOGLOBIN 18.9 pg (27.0-33.0); MEAN CORPUSCULAR HGB CONC 27.1 g/dl (32.0-36.5); MONO # 0.7 10^3/uL (0.0-0.8); MONO % 9.7 % (0.0-5.0); NEUTROPHILS # 4.1 10^3/uL (1.8-7.7); NEUTROPHILS % 56.1 % (36.0-66.0); PLATELET COUNT, AUTOMATED 342 10^3/uL (150-450); RED CELL DISTRIBUTION WIDTH 21.7 % (11.5-14.5); WHITE BLOOD COUNT 7.3 10^3/uL (4.0-10.0)
[2017-06-22 16:15] LABS: URIC ACID 5.6 MG/DL (2.6-6.0)
[2017-06-22 16:15] LABS: C REACTIVE PROTEIN QUANTITATIV 2.26 MG/DL (0.00-0.30); RHEUMATOID FACTOR QUANT < 10.0 IU/ML (<15.0)
[2017-06-22 16:50] LABS: ERYTHROCYTE SEDIMENTATION RATE 46 mm/hr (0-30)
== END ==
LOC: M LABDRAW1 14:38
DX: M79.602 Pain in left arm (principal)
CPT/HCPCS: 84550

== ENCOUNTER 2017-06-25 14:26 | Observation (INO) | payer MEDICARE, MEDICAID ==
[2017-06-25] MEDS: IPRATROPIUM 0.5MG/ALBUTEROL 2.5MG INH SOL UD 3ML (DUONEB)(J7620) NEB (15:30)
[2017-06-25] MEDS: ALBUTEROL SULFATE 2.5 MG/0.5 ML INH NEB SOLN INH (15:30)
[2017-06-25 15:58] LABS: BASO # 0.1 10^3/uL (0.0-0.2); BASO % 1.2 % (0.0-1.0); EOS # 0.4 10^3/uL (0.0-0.50); EOS % 4.8 % (0.0-3.0); HEMATOCRIT 31.6 % (36.0-47.0); HEMOGLOBIN 8.7 g/dl (12.0-16.0); IMMATURE GRANULOCYTE % 0.7 % (0-3.0); LYMPH # 2.3 10^3/uL (1.5-4.5); LYMPH % 31.3 % (24.0-44.0); MEAN CORPUSCULAR HEMOGLOBIN 19.3 pg (27.0-33.0); MEAN CORPUSCULAR HGB CONC 27.5 g/dl (32.0-36.5); MEAN CORPUSCULAR VOLUME 70.2 fl (80.0-96.0); MONO # 0.8 10^3/uL (0.0-0.8); MONO % 10.8 % (0.0-5.0); NEUTROPHILS # 3.7 10^3/uL (1.8-7.7); NEUTROPHILS % 51.2 % (36.0-66.0); PLATELET COUNT, AUTOMATED 347 10^3/uL (150-450); RED CELL DISTRIBUTION WIDTH 20.9 % (11.5-14.5); WHITE BLOOD COUNT 7.2 10^3/uL (4.0-10.0)
[2017-06-25 16:01] LABS: INR 0.97
[2017-06-25] MEDS: methylPREDNISolone INJ 125 MG/2 ML VIAL (J2930) IV (16:01)
[2017-06-25] MEDS: NORCO, ANEXSIA 5/325MG TABLET (HYDROcodone/ACETAMINOPHEN) PO (16:02)
[2017-06-25 16:12] LABS: ALBUMIN 3.3 GM/DL (3.2-5.2); ALKALINE PHOSPHATASE 141 U/L (45-117); ALT/SGPT 37 U/L (12-78); ANION GAP 7 MEQ/L (8-16); AST/SGOT 56 U/L (7-37); BILIRUBIN,DIRECT 0.1 MG/DL (0.0-0.2); BILIRUBIN,TOTAL 0.4 MG/DL (0.2-1.0); BLOOD UREA NITROGEN 22 MG/DL (7-18); CALCIUM LEVEL 8.9 MG/DL (8.8-10.2); CARBON DIOXIDE LEVEL 32 MEQ/L (21-32); CHLORIDE LEVEL 99 MEQ/L (98-107); CPK CREATINE PHOSPHOKINASE 33 U/L (26-192); CREATININE FOR GFR 1.81 MG/DL (0.55-1.30); GLOMERULAR FILTRATION RATE 29.2 (>39); GLUCOSE, FASTING 237 MG/DL (70-100); POTASSIUM SERUM 3.4 MEQ/L (3.5-5.1); SODIUM LEVEL 138 MEQ/L (136-145); THYROXINE (T4) 11.3 UG/DL (4.5-12.0); TOTAL PROTEIN 7.4 GM/DL (6.4-8.2); TROPONIN I < 0.02 NG/ML (< 0.10)
[2017-06-25 16:18] LABS: CK-MB VALUE MASS < 1.0 NG/ML (<3.6); MB/CK RELATIVE INDEX 3.03 (< OR =4); NT-PRO BNP 149 PG/ML (<125)
[2017-06-25 16:28] LABS: ABG HCO3 29.7 MEQ/L (22.0-26.0); ABG O2 SATURATION 95.8 % (95.0-99.0); ABG PARTIAL PRESSURE CO2 44.5 mmHg (35.0-45.0); ABG PARTIAL PRESSURE O2 100.2 mmHg (75.0-100.0); ABG pH (ARTERIAL) 7.442 UNITS (7.350-7.450)
[2017-06-25 16:29] LABS: LACTIC ACID SEPSIS PROTOCOL 2.5 MMOL/L (0.4-2.0)
[2017-06-25 16:41] LABS: INFLUENZA A AMPLIFICATION NEGATIVE (NEGATIVE); INFLUENZA B AMPLIFICATION NEGATIVE (NEGATIVE)
[2017-06-25] MEDS ORDERED: guaiFENesin ER 600 MG TAB PO (18:15)
[2017-06-25] MEDS ORDERED: SCOPOLAMINE 1MG TRANSDERMAL PATCH TD (18:15)
[2017-06-25] MEDS ORDERED: LIDOCAINE 5% OINT 30 GM TOP (18:15)
[2017-06-25] MEDS ORDERED: DEXTROSE 50% 50 ML SYRINGE IV (18:15)
[2017-06-25] MEDS ORDERED: GLUCAGON FOR INJ 1 MG VIAL (J1610) SC (18:15)
[2017-06-25] MEDS ORDERED: GLUCOSE 4 GM CHEW TABLET PO (18:15)
[2017-06-25] MEDS ORDERED: NYSTATIN CREAM 15 GM TOP (18:15)
[2017-06-25] MEDS ORDERED: IPRATROPIUM 0.5MG/ALBUTEROL 2.5MG INH SOL UD 3ML (DUONEB)(J7620) NEB (18:45)
[2017-06-25 18:51] LABS: BEDSIDE GLUCOSE 342 MG/DL (83-110)
[2017-06-25 19:51] LABS: ESTIMATED AVERAGE GLUCOSE 240 MG/DL (60-110)
[2017-06-25 20:56] LABS: BEDSIDE GLUCOSE 483 MG/DL (83-110)
[2017-06-25] MEDS: SODIUM CHLORIDE 0.9% INJ 10 ML SYR IV (21:43)
[2017-06-25] MEDS: ACETAMINOPHEN 650MG ER TAB (TYLENOL ARTHRITIS) PO (21:44)
[2017-06-25] MEDS: VANCOMYCIN ORAL SOL 250MG/5ML ORAL SYRINGE PO (21:44)
[2017-06-25] MEDS: PREGABALIN 75 MG CAP(LYRICA) PO (21:45)
[2017-06-25] MEDS: ONDANSETRON 4 MG TAB (S0181) PO (21:45)
[2017-06-25] MEDS: BISOPROLOL FUM 2.5 MG PER 1/2TAB PO (21:45)
[2017-06-25] MEDS: OMEPRAZOLE 20 MG CAP PO (21:46)
[2017-06-25] MEDS: METOCLOPRAMIDE 10 MG TAB PO (21:46)
[2017-06-25] MEDS: SENOKOT S TAB PO (21:46)
[2017-06-25] MEDS: levETIRAcetam 250MG TABLET (KEPPRA) PO (21:46)
[2017-06-25] MEDS: rOPINIRole 1MG TAB PO (21:46)
[2017-06-25] MEDS: DOCUSATE SODIUM 100 MG CAP PO (21:46)
[2017-06-25] MEDS: LEVEMIR (INSULIN DETEMIR) 1 UNITS/0.01ML SC (21:47)
[2017-06-25] MEDS: HumaLOG INSULIN (NovoLOG) PER UNIT SC (21:48)
[2017-06-25 22:36] LABS: TROPONIN I < 0.02 NG/ML (< 0.10)
[2017-06-25] MEDS ORDERED: NS 1,000 ML IV (23:00)
[2017-06-25] MEDS: NS 1,000 ML IV (23:46)
[2017-06-25 23:57] LABS: IMMEDIATE SPIN CROSSMATCH 1 2
[2017-06-26 00:46] LABS: APPEARANCE, URINE CLEAR (CLEAR); BACTERIA, URINE AUTO NEGATIVE (NEGATIVE); BILIRUBIN, URINE AUTO NEGATIVE (NEGATIVE); BLOOD, URINE BLOOD NEGATIVE (NEGATIVE); COLOR, URINE STRAW (YELLOW); GLUCOSE, URINE (UA) AUTO 3+ mg/dL (NEGATIVE); KETONE, URINE AUTO NEGATIVE (NEGATIVE); LEUKOCYTE ESTERASE, URINE AUTO NEGATIVE (NEGATIVE); NITRITE, URINE AUTO NEGATIVE (NEGATIVE); PROTEIN, URINE AUTO NEGATIVE (NEGATIVE); RBC, URINE AUTO 1 /HPF (0-3); SPECIFIC GRAVITY URINE AUTO 1.011 (1.002-1.035); SQUAMOUS EPITHELIAL CELL UR AU 0 /HPF (0-6); UROBILINOGEN, URINE AUTO 0.2 mg/dL (0.0-2.0); WBC, URINE AUTO 1 /HPF (0-3)
[2017-06-26] MEDS: SODIUM CHLORIDE 0.9% INJ 10 ML SYR IV ×2 (01:48→09:00)
[2017-06-26 02:31] LABS: LACTIC ACID SEPSIS PROTOCOL 4.3 MMOL/L (0.4-2.0)
[2017-06-26 02:31] LABS: HEMATOCRIT 35.3 % (36.0-47.0); HEMOGLOBIN 9.9 g/dl (12.0-16.0); MEAN CORPUSCULAR HEMOGLOBIN 20.2 pg (27.0-33.0); MEAN CORPUSCULAR VOLUME 71.9 fl (80.0-96.0); PLATELET COUNT, AUTOMATED 292 10^3/uL (150-450); RED BLOOD COUNT 4.91 10^6/uL (4.00-5.40); RED CELL DISTRIBUTION WIDTH 21.3 % (11.5-14.5); WHITE BLOOD COUNT 5.6 10^3/uL (4.0-10.0)
[2017-06-26 02:33] LABS: TROPONIN I < 0.02 NG/ML (< 0.10)
[2017-06-26] MEDS: PERCOCET 5MG/325MG TAB PO (04:18)
[2017-06-26 05:30] LABS: HEMATOCRIT 35.2 % (36.0-47.0); HEMOGLOBIN 9.9 g/dl (12.0-16.0); MEAN CORPUSCULAR HEMOGLOBIN 20.3 pg (27.0-33.0); MEAN CORPUSCULAR HGB CONC 28.1 g/dl (32.0-36.5); MEAN CORPUSCULAR VOLUME 72.3 fl (80.0-96.0); PLATELET COUNT, AUTOMATED 304 10^3/uL (150-450); RED BLOOD COUNT 4.87 10^6/uL (4.00-5.40); RED CELL DISTRIBUTION WIDTH 21.3 % (11.5-14.5); WHITE BLOOD COUNT 5.5 10^3/uL (4.0-10.0)
[2017-06-26 05:58] LABS: LACTIC ACID SEPSIS PROTOCOL 4.3 MMOL/L (0.4-2.0)
[2017-06-26 06:01] LABS: ANION GAP 13 MEQ/L (8-16); BLOOD UREA NITROGEN 32 MG/DL (7-18); CALCIUM LEVEL 8.1 MG/DL (8.8-10.2); CARBON DIOXIDE LEVEL 26 MEQ/L (21-32); CHLORIDE LEVEL 94 MEQ/L (98-107); CREATININE FOR GFR 2.28 MG/DL (0.55-1.30); GLOMERULAR FILTRATION RATE 22.4 (>39); POTASSIUM SERUM 4.4 MEQ/L (3.5-5.1); SODIUM LEVEL 133 MEQ/L (136-145)
[2017-06-26 06:05] LABS: GLUCOSE, FASTING 707 MG/DL (70-100)
[2017-06-26] MEDS: HumaLOG INSULIN (NovoLOG) PER UNIT SC (06:21)
[2017-06-26 08:44] LABS: BEDSIDE GLUCOSE CONFIRMATION 632 MG/DL (LESS THAN 200)
[2017-06-26] MEDS ORDERED: COLCHICINE 0.6 MG TAB PO (09:00)
[2017-06-26] MEDS: LEVEMIR (INSULIN DETEMIR) 1 UNITS/0.01ML SC (10:09)
[2017-06-26] MEDS: SUCRALFATE 1 GM TAB PO ×2 (10:10→18:52)
[2017-06-26] MEDS: DOCUSATE SODIUM 100 MG CAP PO ×2 (10:10→21:04)
[2017-06-26] MEDS: ONDANSETRON 4 MG TAB (S0181) PO ×4 (10:10→21:03)
[2017-06-26] MEDS: OMEPRAZOLE 20 MG CAP PO ×2 (10:10→21:03)
[2017-06-26] MEDS: PREGABALIN 75 MG CAP(LYRICA) PO ×2 (10:11→21:03)
[2017-06-26] MEDS: BISOPROLOL FUM 2.5 MG PER 1/2TAB PO ×2 (10:11→21:34)
[2017-06-26] MEDS: SENOKOT S TAB PO ×2 (10:12→21:03)
[2017-06-26] MEDS: levETIRAcetam 250MG TABLET (KEPPRA) PO ×2 (10:12→21:04)
[2017-06-26] MEDS: METOCLOPRAMIDE 10 MG TAB PO ×3 (10:12→21:04)
[2017-06-26] MEDS: POTASSIUM CHLORIDE 10 MEQ SR TABLET PO (10:12)
[2017-06-26] MEDS: ALLOPURINOL 300 MG TAB PO (10:12)
[2017-06-26] MEDS: ACETAMINOPHEN 650MG ER TAB (TYLENOL ARTHRITIS) PO ×2 (10:13→18:55)
[2017-06-26] MEDS: VANCOMYCIN ORAL SOL 250MG/5ML ORAL SYRINGE PO ×2 (10:18→21:04)
[2017-06-26] MEDS ORDERED: HumaLOG INSULIN (NovoLOG) PER UNIT SC (12:00)
[2017-06-26 12:02] LABS: BEDSIDE GLUCOSE > 600 MG/DL (83-110)
[2017-06-26 12:02] LABS: BEDSIDE GLUCOSE > 600 MG/DL (83-110)
[2017-06-26 12:18] LABS: BEDSIDE GLUCOSE 593 MG/DL (83-110)
[2017-06-26] MEDS: INSULIN HUMAN REGULAR 100 UNITS in NS 99 ML IV ×2 (12:23→21:34)
[2017-06-26] MEDS: INSULIN IV RATE CHANGE DOCUMENTATION ML/HR XX ×5 (13:38→23:52)
[2017-06-26 13:41] LABS: BEDSIDE GLUCOSE 544 MG/DL (83-110)
[2017-06-26 13:41] LABS: BEDSIDE GLUCOSE 567 MG/DL (83-110)
[2017-06-26 14:46] LABS: ANION GAP 10 MEQ/L (8-16); BLOOD UREA NITROGEN 35 MG/DL (7-18); CALCIUM LEVEL 8.3 MG/DL (8.8-10.2); CARBON DIOXIDE LEVEL 27 MEQ/L (21-32); CHLORIDE LEVEL 95 MEQ/L (98-107); CREATININE FOR GFR 1.96 MG/DL (0.55-1.30); GLOMERULAR FILTRATION RATE 26.6 (>39); POTASSIUM SERUM 4.2 MEQ/L (3.5-5.1); SODIUM LEVEL 132 MEQ/L (136-145)
[2017-06-26 15:04] LABS: GLUCOSE, FASTING 535 MG/DL (70-100)
[2017-06-26 16:02] LABS: BEDSIDE GLUCOSE 497 MG/DL (83-110)
[2017-06-26 17:13] LABS: BEDSIDE GLUCOSE 492 MG/DL (83-110)
[2017-06-26 19:15] LABS: BEDSIDE GLUCOSE 437 MG/DL (83-110)
[2017-06-26 20:02] LABS: BEDSIDE GLUCOSE 416 MG/DL (83-110)
[2017-06-26] MEDS: rOPINIRole 1MG TAB PO (21:34)
[2017-06-26 21:41] LABS: ANION GAP 7 MEQ/L (8-16); BLOOD UREA NITROGEN 35 MG/DL (7-18); CARBON DIOXIDE LEVEL 28 MEQ/L (21-32); CHLORIDE LEVEL 100 MEQ/L (98-107); CREATININE FOR GFR 1.88 MG/DL (0.55-1.30); GLOMERULAR FILTRATION RATE 27.9 (>39); GLUCOSE, FASTING 370 MG/DL (70-100); POTASSIUM SERUM 3.9 MEQ/L (3.5-5.1); SODIUM LEVEL 135 MEQ/L (136-145)
[2017-06-26] MEDS ORDERED: HumaLOG INSULIN (NovoLOG) PER UNIT IV (23:55)
[2017-06-27] MEDS: HumuLIN R (REGULAR) INSULIN (NovoLIN R) **100U/ML** PER UNIT IV (00:08)
[2017-06-27] MEDS ORDERED: NS IV (00:45)
[2017-06-27] MEDS ORDERED: INSULIN HUMAN REGULAR IV (00:45)
[2017-06-27] MEDS: INSULIN HUMAN REGULAR IV (01:17)
[2017-06-27] MEDS: NS IV (01:17)
[2017-06-27 02:04] LABS: BEDSIDE GLUCOSE 229 MG/DL (83-110)
[2017-06-27 03:01] LABS: BEDSIDE GLUCOSE 372 MG/DL (83-110)
[2017-06-27 03:01] LABS: BEDSIDE GLUCOSE 188 MG/DL (83-110)
[2017-06-27 03:01] LABS: BEDSIDE GLUCOSE 326 MG/DL (83-110)
[2017-06-27 03:01] LABS: BEDSIDE GLUCOSE 265 MG/DL (83-110)
[2017-06-27] MEDS: ACETAMINOPHEN 650MG ER TAB (TYLENOL ARTHRITIS) PO ×2 (04:00→16:39)
[2017-06-27 04:05] LABS: BEDSIDE GLUCOSE 169 MG/DL (83-110)
[2017-06-27] MEDS: INSULIN IV RATE CHANGE DOCUMENTATION ML/HR XX ×2 (04:05→05:12)
[2017-06-27 04:49] LABS: MEAN CORPUSCULAR HEMOGLOBIN 20.1 pg (27.0-33.0); MEAN CORPUSCULAR HGB CONC 28.1 g/dl (32.0-36.5); MEAN CORPUSCULAR VOLUME 71.6 fl (80.0-96.0); PLATELET COUNT, AUTOMATED 281 10^3/uL (150-450); RED BLOOD COUNT 4.47 10^6/uL (4.00-5.40); RED CELL DISTRIBUTION WIDTH 21.3 % (11.5-14.5); WHITE BLOOD COUNT 7.5 10^3/uL (4.0-10.0)
[2017-06-27 05:04] LABS: BEDSIDE GLUCOSE 158 MG/DL (83-110)
[2017-06-27 05:08] LABS: ANION GAP 8 MEQ/L (8-16); BLOOD UREA NITROGEN 36 MG/DL (7-18); CALCIUM LEVEL 8.7 MG/DL (8.8-10.2); CARBON DIOXIDE LEVEL 28 MEQ/L (21-32); CHLORIDE LEVEL 104 MEQ/L (98-107); CREATININE FOR GFR 1.68 MG/DL (0.55-1.30); GLOMERULAR FILTRATION RATE 31.8 (>39); GLUCOSE, FASTING 157 MG/DL (70-100); POTASSIUM SERUM 3.6 MEQ/L (3.5-5.1); SODIUM LEVEL 140 MEQ/L (136-145)
[2017-06-27 06:54] LABS: BEDSIDE GLUCOSE 120 MG/DL (83-110)
[2017-06-27 06:54] LABS: BEDSIDE GLUCOSE 111 MG/DL (83-110)
[2017-06-27] MEDS: IPRATROPIUM 0.5MG/ALBUTEROL 2.5MG INH SOL UD 3ML (DUONEB)(J7620) NEB ×5 (08:00→23:41)
[2017-06-27] MEDS ORDERED: ALBUTEROL SULFATE 2.5 MG/0.5 ML INH NEB SOLN INH (08:30)
[2017-06-27] MEDS: PREGABALIN 75 MG CAP(LYRICA) PO ×2 (08:44→20:11)
[2017-06-27] MEDS: DOCUSATE SODIUM 100 MG CAP PO ×2 (08:45→20:10)
[2017-06-27] MEDS: levETIRAcetam 250MG TABLET (KEPPRA) PO ×2 (08:45→20:10)
[2017-06-27] MEDS: OMEPRAZOLE 20 MG CAP PO ×2 (08:45→20:11)
[2017-06-27] MEDS: SENOKOT S TAB PO ×2 (08:45→20:10)
[2017-06-27] MEDS: ALLOPURINOL 300 MG TAB PO (08:46)
[2017-06-27] MEDS: POTASSIUM CHLORIDE 10 MEQ SR TABLET PO (08:46)
[2017-06-27] MEDS: SUCRALFATE 1 GM TAB PO ×2 (08:46→17:30)
[2017-06-27] MEDS: LEVEMIR (INSULIN DETEMIR) 1 UNITS/0.01ML SC ×3 (08:47→20:40)
[2017-06-27] MEDS: METOCLOPRAMIDE 10 MG TAB PO ×3 (08:47→20:10)
[2017-06-27] MEDS: VANCOMYCIN ORAL SOL 250MG/5ML ORAL SYRINGE PO ×2 (08:48→20:12)
[2017-06-27] MEDS: SODIUM CHLORIDE 0.9% INJ 10 ML SYR IV (08:48)
[2017-06-27] MEDS: ONDANSETRON 4 MG TAB (S0181) PO ×4 (08:59→20:10)
[2017-06-27] MEDS: BISOPROLOL FUM 2.5 MG PER 1/2TAB PO ×2 (09:33→20:11)
[2017-06-27 09:55] LABS: BEDSIDE GLUCOSE 111 MG/DL (83-110)
[2017-06-27 09:55] LABS: BEDSIDE GLUCOSE 90 MG/DL (83-110)
[2017-06-27] MEDS: traMADol 50 MG TAB PO ×2 (09:59→21:58)
[2017-06-27 10:13] LABS: BEDSIDE GLUCOSE 101 MG/DL (83-110)
[2017-06-27] MEDS: HumaLOG INSULIN (NovoLOG) PER UNIT SC ×3 (13:54→20:40)
[2017-06-27 14:08] LABS: BEDSIDE GLUCOSE 145 MG/DL (83-110)
[2017-06-27 15:33] LABS: BEDSIDE GLUCOSE 189 MG/DL (83-110)
[2017-06-27 17:22] LABS: BEDSIDE GLUCOSE 273 MG/DL (83-110)
[2017-06-27] MEDS: rOPINIRole 1MG TAB PO (20:11)
[2017-06-27 20:41] LABS: BEDSIDE GLUCOSE 354 MG/DL (83-110)
[2017-06-27] MEDS: LACTIC ACID 12% LOTION 225 GM BTL TOP (20:41)
[2017-06-27] MEDS: MOM 30ML SUSPENSION UDC PO (21:58)
[2017-06-28] MEDS: IPRATROPIUM 0.5MG/ALBUTEROL 2.5MG INH SOL UD 3ML (DUONEB)(J7620) NEB ×2 (03:46→09:45)
[2017-06-28 04:53] LABS: HEMATOCRIT 32.9 % (36.0-47.0); HEMOGLOBIN 9.1 g/dl (12.0-16.0); MEAN CORPUSCULAR HEMOGLOBIN 20.2 pg (27.0-33.0); MEAN CORPUSCULAR HGB CONC 27.7 g/dl (32.0-36.5); MEAN CORPUSCULAR VOLUME 72.9 fl (80.0-96.0); PLATELET COUNT, AUTOMATED 277 10^3/uL (150-450); RED BLOOD COUNT 4.51 10^6/uL (4.00-5.40); RED CELL DISTRIBUTION WIDTH 21.7 % (11.5-14.5); WHITE BLOOD COUNT 7.6 10^3/uL (4.0-10.0)
[2017-06-28] MEDS: ACETAMINOPHEN 650MG ER TAB (TYLENOL ARTHRITIS) PO (05:07)
[2017-06-28 05:13] LABS: ANION GAP 6 MEQ/L (8-16); BLOOD UREA NITROGEN 36 MG/DL (7-18); CALCIUM LEVEL 8.5 MG/DL (8.8-10.2); CARBON DIOXIDE LEVEL 26 MEQ/L (21-32); CHLORIDE LEVEL 106 MEQ/L (98-107); CREATININE FOR GFR 1.85 MG/DL (0.55-1.30); GLOMERULAR FILTRATION RATE 28.4 (>39); GLUCOSE, FASTING 320 MG/DL (70-100); POTASSIUM SERUM 4.2 MEQ/L (3.5-5.1); SODIUM LEVEL 138 MEQ/L (136-145)
[2017-06-28] MEDS: SUCRALFATE 1 GM TAB PO (07:51)
[2017-06-28] MEDS: HumaLOG INSULIN (NovoLOG) PER UNIT SC ×2 (07:51→11:59)
[2017-06-28] MEDS: LACTIC ACID 12% LOTION 225 GM BTL TOP (09:00)
[2017-06-28] MEDS: DOCUSATE SODIUM 100 MG CAP PO (09:07)
[2017-06-28] MEDS: levETIRAcetam 250MG TABLET (KEPPRA) PO (09:08)
[2017-06-28] MEDS: VANCOMYCIN ORAL SOL 250MG/5ML ORAL SYRINGE PO (09:08)
[2017-06-28] MEDS: SENOKOT S TAB PO (09:09)
[2017-06-28] MEDS: PREGABALIN 75 MG CAP(LYRICA) PO (09:09)
[2017-06-28] MEDS: OMEPRAZOLE 20 MG CAP PO (09:10)
[2017-06-28] MEDS: ONDANSETRON 4 MG TAB (S0181) PO ×2 (09:10→12:48)
[2017-06-28] MEDS: ALLOPURINOL 300 MG TAB PO (09:10)
[2017-06-28] MEDS: POTASSIUM CHLORIDE 10 MEQ SR TABLET PO (09:10)
[2017-06-28] MEDS: METOCLOPRAMIDE 10 MG TAB PO (09:10)
[2017-06-28] MEDS: BISOPROLOL FUM 2.5 MG PER 1/2TAB PO (09:11)
[2017-06-28] MEDS: SODIUM CHLORIDE 0.9% INJ 10 ML SYR IV (09:12)
[2017-06-28] MEDS: LEVEMIR (INSULIN DETEMIR) 1 UNITS/0.01ML SC (09:12)
[2017-06-28] MEDS: traMADol 50 MG TAB PO (10:13)
[2017-06-28 12:09] LABS: BEDSIDE GLUCOSE 286 MG/DL (83-110)
== END 2017-06-28 14:25 | disposition home or self-care (01) ==
LOC: M ICU 06-26 11:40 → M ED 14:26 → M ED INP 17:34 → M MSPAV 19:15
DX: D64.9 Anemia, unspecified (principal); N17.9 Acute kidney failure, unspecified; G47.33 Obstructive sleep apnea (adult) (pediatric); E11.9 Type 2 diabetes mellitus without complications; R06.02 Shortness of breath; N18.9 Chronic kidney disease, unspecified; J98.6 Disorders of diaphragm; R56.9 Unspecified convulsions; I12.9 Hypertensive chronic kidney disease with stage 1 through stage 4 chronic kidney disease, or unspecified chronic kidney disease; M54.5 Low back pain; M79.602 Pain in left arm; M25.522 Pain in left elbow; K21.9 Gastro-esophageal reflux disease without esophagitis; E66.01 Morbid (severe) obesity due to excess calories; M10.9 Gout, unspecified; Z79.82 Long term (current) use of aspirin; Z79.899 Other long term (current) drug therapy; Z79.4 Long term (current) use of insulin; Z91.040 Latex allergy status; Z88.2 Allergy status to sulfonamides; Z88.0 Allergy status to penicillin; Z88.8 Allergy status to other drugs, medicaments and biological substances
CPT/HCPCS: 36430

== ENCOUNTER → 2017-07-18 | Outpatient (REF) | payer MEDICARE, MEDICAID | LOC: M SMT 17:14 | DX: N39.0 Urinary tract infection, site not specified (principal) | CPT/HCPCS: 87088; 87186 ==

== ENCOUNTER → 2017-07-20 | Outpatient (REF) | payer MEDICARE, MEDICAID ==
[2017-07-20 15:58] LABS: HEMATOCRIT 36.6 % (36.0-47.0); HEMOGLOBIN 10.1 g/dl (12.0-15.5); MEAN CORPUSCULAR HEMOGLOBIN 20.5 pg (27.0-33.0); MEAN CORPUSCULAR HGB CONC 27.6 g/dl (32.0-36.5); MEAN CORPUSCULAR VOLUME 74.4 fl (80.0-96.0); PLATELET COUNT, AUTOMATED 270 10^3/uL (150-450); RED BLOOD COUNT 4.92 10^6/uL (4.00-5.40); RED CELL DISTRIBUTION WIDTH 21.7 % (11.5-14.5); WHITE BLOOD COUNT 8.3 10^3/uL (4.0-10.0)
[2017-07-20 16:21] LABS: ALBUMIN 3.6 GM/DL (3.2-5.2); ANION GAP 9 MEQ/L (8-16); BLOOD UREA NITROGEN 21 MG/DL (7-18); CALCIUM LEVEL 8.9 MG/DL (8.8-10.2); CARBON DIOXIDE LEVEL 30 MEQ/L (21-32); CHLORIDE LEVEL 95 MEQ/L (98-107); CREATININE FOR GFR 2.03 MG/DL (0.55-1.30); FERRITIN 18 NG/ML (8-252); GLOMERULAR FILTRATION RATE 25.6 (>39); GLUCOSE, FASTING 353 MG/DL (70-100); IRON (FE) 38 UG/DL (50-170); PERCENT SATURATION 8.8 % (13.2-45.0); PHOSPHORUS LEVEL 3.3 MG/DL (2.5-4.9); SODIUM LEVEL 134 MEQ/L (136-145); TOTAL IRON BINDING CAPACITY 430 UG/DL (250-450); URIC ACID 4.8 MG/DL (2.6-6.0)
[2017-07-22 10:22] LABS: PTH INTACT 135.6 PG/ML (18.5-88.0)
== END ==
LOC: M LAB REF 15:41
DX: N18.4 Chronic kidney disease, stage 4 (severe) (principal); D63.1 Anemia in chronic kidney disease; N25.81 Secondary hyperparathyroidism of renal origin
CPT/HCPCS: 83550

== ENCOUNTER 2017-08-04 21:34 | Inpatient (IN) | payer MEDICARE, MEDICAID ==
[2017-08-04 22:24] LABS: BASO # 0.1 10^3/uL (0.0-0.2); BASO % 0.8 % (0.0-1.0); EOS # 0.2 10^3/uL (0.0-0.50); EOS % 2.2 % (0.0-3.0); HEMATOCRIT 38.5 % (36.0-47.0); HEMOGLOBIN 10.9 g/dl (12.0-15.5); IMMATURE GRANULOCYTE % 0.8 % (0-3.0); LYMPH # 2.6 10^3/uL (1.5-4.5); LYMPH % 24.1 % (24.0-44.0); MEAN CORPUSCULAR HEMOGLOBIN 20.5 pg (27.0-33.0); MEAN CORPUSCULAR HGB CONC 28.3 g/dl (32.0-36.5); MEAN CORPUSCULAR VOLUME 72.4 fl (80.0-96.0); MONO # 1.1 10^3/uL (0.0-0.8); NEUTROPHILS # 6.6 10^3/uL (1.8-7.7); NEUTROPHILS % 62.1 % (36.0-66.0); PLATELET COUNT, AUTOMATED 367 10^3/uL (150-450); RED BLOOD COUNT 5.32 10^6/uL (4.00-5.40); RED CELL DISTRIBUTION WIDTH 20.4 % (11.5-14.5); WHITE BLOOD COUNT 10.6 10^3/uL (4.0-10.0)
[2017-08-04 22:35] LABS: INR 0.98; PROTHROMBIN TIME 13.1 SECONDS (12.4-14.5)
[2017-08-04 22:36] LABS: ANION GAP 8 MEQ/L (8-16); BLOOD UREA NITROGEN 24 MG/DL (7-18); CARBON DIOXIDE LEVEL 32 MEQ/L (21-32); CHLORIDE LEVEL 95 MEQ/L (98-107); CPK CREATINE PHOSPHOKINASE 40 U/L (26-192); CREATININE FOR GFR 1.71 MG/DL (0.55-1.30); GLOMERULAR FILTRATION RATE 31.2 (>39); GLUCOSE, FASTING 324 MG/DL (70-100); PARTIAL THROMBOPLASTIN TIME 28.6 SECONDS (26.8-37.9); POTASSIUM SERUM 4.3 MEQ/L (3.5-5.1); SODIUM LEVEL 135 MEQ/L (136-145); TROPONIN I < 0.02 NG/ML (< 0.10)
[2017-08-04 22:39] LABS: CK-MB VALUE MASS < 1.0 NG/ML (<3.6)
[2017-08-04 22:48] LABS: LACTIC ACID SEPSIS PROTOCOL 2.7 MMOL/L (0.4-2.0)
[2017-08-04 22:48] LABS: ABG BASE EXCESS 7.6 (-2.0-2.0); ABG HCO3 32.6 MEQ/L (22.0-26.0); ABG O2 SATURATION 95.7 % (95.0-99.0); ABG PARTIAL PRESSURE CO2 47.7 mmHg (35.0-45.0); ABG PARTIAL PRESSURE O2 94.1 mmHg (75.0-100.0); ABG STANDARD HCO3 31.4 MEQ/L (22.0-26.0); ABG pH (ARTERIAL) 7.452 UNITS (7.350-7.450)
[2017-08-04] MEDS: NS 500 ML IV (23:30)
[2017-08-05] MEDS ORDERED: ACETAMINOPHEN 325 MG TAB As Ordered (00:35)
[2017-08-05] MEDS: ACETAMINOPHEN TAB 650MG DOSE (2X325MG) PO (00:39)
[2017-08-05] MEDS ORDERED: NYSTATIN CREAM 15 GM TOP (01:00)
[2017-08-05] MEDS ORDERED: GLUCOSE 4 GM CHEW TABLET PO (01:00)
[2017-08-05] MEDS ORDERED: DEXTROSE 50% 50 ML SYRINGE IV (01:00)
[2017-08-05] MEDS ORDERED: GLUCAGON FOR INJ 1 MG VIAL (J1610) SC (01:00)
[2017-08-05] MEDS: IPRATROPIUM 0.5MG/ALBUTEROL 2.5MG INH SOL UD 3ML (DUONEB)(J7620) NEB ×4 (02:03→19:33)
[2017-08-05] MEDS: HEPARIN SOD (PORCINE) 5000 UNITS/ML VIAL SC ×3 (06:18→22:19)
[2017-08-05 07:33] LABS: BEDSIDE GLUCOSE 271 MG/DL (83-110)
[2017-08-05] MEDS: HumaLOG INSULIN (NovoLOG) PER UNIT SC ×5 (10:07→22:21)
[2017-08-05] MEDS: LACTULOSE 20 GM/30 ML SYRUP UD PO ×2 (10:07→22:17)
[2017-08-05] MEDS: PREGABALIN 75 MG CAP(LYRICA) PO ×2 (10:11→22:36)
[2017-08-05] MEDS: ALLOPURINOL 300 MG TAB PO (10:11)
[2017-08-05] MEDS: SENOKOT S TAB PO ×2 (10:11→22:17)
[2017-08-05] MEDS: SCOPOLAMINE 1MG TRANSDERMAL PATCH TD (10:11)
[2017-08-05] MEDS: SUCRALFATE 1 GM TAB PO ×2 (10:11→22:35)
[2017-08-05] MEDS: COLCHICINE 0.6 MG TAB PO (10:12)
[2017-08-05] MEDS: OMEPRAZOLE 20 MG CAP PO ×2 (10:12→22:35)
[2017-08-05] MEDS: POTASSIUM CHLORIDE 10 MEQ SR TABLET PO (10:12)
[2017-08-05] MEDS: DOCUSATE SODIUM 100 MG CAP PO ×2 (10:12→22:18)
[2017-08-05] MEDS: levETIRAcetam 250MG TABLET (KEPPRA) PO ×2 (10:12→22:17)
[2017-08-05] MEDS: METOCLOPRAMIDE 10 MG TAB PO ×3 (10:13→22:18)
[2017-08-05] MEDS: TORSEMIDE 100 MG TAB PO (10:13)
[2017-08-05] MEDS: ONDANSETRON 4 MG TAB (S0181) PO ×4 (10:13→22:35)
[2017-08-05] MEDS: SPIRONOLACTONE 25 MG TAB PO ×2 (10:13→22:36)
[2017-08-05] MEDS: BISOPROLOL FUM 2.5 MG PER 1/2TAB PO (10:14)
[2017-08-05] MEDS: LACTIC ACID 12% LOTION 225 GM BTL TOP ×2 (10:14→22:21)
[2017-08-05 10:26] LABS: HEMATOCRIT 33.7 % (36.0-47.0); HEMOGLOBIN 9.6 g/dl (12.0-15.5); MEAN CORPUSCULAR HEMOGLOBIN 20.9 pg (27.0-33.0); MEAN CORPUSCULAR HGB CONC 28.5 g/dl (32.0-36.5); MEAN CORPUSCULAR VOLUME 73.3 fl (80.0-96.0); PLATELET COUNT, AUTOMATED 328 10^3/uL (150-450); WHITE BLOOD COUNT 7.9 10^3/uL (4.0-10.0)
[2017-08-05 10:37] LABS: ANION GAP 10 MEQ/L (8-16); BLOOD UREA NITROGEN 25 MG/DL (7-18); CALCIUM LEVEL 8.8 MG/DL (8.8-10.2); CARBON DIOXIDE LEVEL 31 MEQ/L (21-32); CHLORIDE LEVEL 96 MEQ/L (98-107); CREATININE FOR GFR 1.74 MG/DL (0.55-1.30); GLOMERULAR FILTRATION RATE 30.5 (>39); GLUCOSE, FASTING 290 MG/DL (70-100); POTASSIUM SERUM 3.8 MEQ/L (3.5-5.1); SODIUM LEVEL 137 MEQ/L (136-145)
[2017-08-05] MEDS: PERCOCET 5MG/325MG TAB PO ×3 (11:13→22:23)
[2017-08-05 12:30] LABS: BEDSIDE GLUCOSE 364 MG/DL (83-110)
[2017-08-05] MEDS: SODIUM CHLORIDE 0.9% 1000 ML IV (13:09)
[2017-08-05] MEDS: NS 1,000 ML IV (13:45)
[2017-08-05 17:25] LABS: BEDSIDE GLUCOSE 426 MG/DL (83-110)
[2017-08-05] MEDS: ANALGESIC BALM CRM 120 GM TOP ×2 (17:38→22:21)
[2017-08-05] MEDS: rOPINIRole 1MG TAB PO ×2 (17:39→22:35)
[2017-08-05] MEDS: FIORICET TAB PO (17:45)
[2017-08-05 18:15] LABS: KETONE, URINE AUTO RFX NEGATIVE (NEGATIVE); LEUKOCYTE ESTERASE UR AUTO RFX 2+ (NEGATIVE); NITRITE, URINE AUTO RFX NEGATIVE (NEGATIVE); RBC, URINE AUTO RFX 2 /HPF (0-3); SPECIFIC GRAVITY UR AUTO RFX 1.003 (1.002-1.035); SQUAM EPITHELIAL CELL UR AURFX 0 /HPF (0-6); WBC, URINE AUTO RFX 23 /HPF (0-3)
[2017-08-05] MEDS: BETAMETHASONE VAL 0.1% OINT 15 GM TOP (22:18)
[2017-08-05] MEDS: LEVEMIR (INSULIN DETEMIR) 1 UNITS/0.01ML SC (22:20)
[2017-08-06] MEDS: IPRATROPIUM 0.5MG/ALBUTEROL 2.5MG INH SOL UD 3ML (DUONEB)(J7620) NEB ×4 (01:45→20:25)
[2017-08-06] MEDS: HEPARIN SOD (PORCINE) 5000 UNITS/ML VIAL SC ×3 (05:14→20:57)
[2017-08-06] MEDS: PERCOCET 5MG/325MG TAB PO ×5 (05:15→23:39)
[2017-08-06 06:44] LABS: BASO # 0.1 10^3/uL (0.0-0.2); BASO % 1.1 % (0.0-1.0); EOS # 0.2 10^3/uL (0.0-0.50); EOS % 3.5 % (0.0-3.0); HEMATOCRIT 31.1 % (36.0-47.0); HEMOGLOBIN 8.8 g/dl (12.0-15.5); IMMATURE GRANULOCYTE % 1.1 % (0-3.0); LYMPH # 1.8 10^3/uL (1.5-4.5); LYMPH % 32.4 % (24.0-44.0); MEAN CORPUSCULAR HEMOGLOBIN 20.8 pg (27.0-33.0); MEAN CORPUSCULAR HGB CONC 28.3 g/dl (32.0-36.5); MEAN CORPUSCULAR VOLUME 73.3 fl (80.0-96.0); MONO # 0.7 10^3/uL (0.0-0.8); NEUTROPHILS # 2.7 10^3/uL (1.8-7.7); NEUTROPHILS % 49.9 % (36.0-66.0); PLATELET COUNT, AUTOMATED 282 10^3/uL (150-450); RED BLOOD COUNT 4.24 10^6/uL (4.00-5.40); RED CELL DISTRIBUTION WIDTH 19.8 % (11.5-14.5); WHITE BLOOD COUNT 5.4 10^3/uL (4.0-10.0)
[2017-08-06 07:05] LABS: ERYTHROCYTE SEDIMENTATION RATE 66 mm/hr (0-30)
[2017-08-06 07:06] LABS: ALBUMIN 2.8 GM/DL (3.2-5.2); ALBUMIN/GLOBULIN RATIO 0.85 (1.00-1.93); ALKALINE PHOSPHATASE 116 U/L (45-117); ALT/SGPT 22 U/L (12-78); ANION GAP 10 MEQ/L (8-16); AST/SGOT 22 U/L (7-37); BILIRUBIN,DIRECT 0.1 MG/DL (0.0-0.2); BILIRUBIN,TOTAL 0.3 MG/DL (0.2-1.0); BLOOD UREA NITROGEN 22 MG/DL (7-18); C REACTIVE PROTEIN QUANTITATIV 6.31 MG/DL (0.00-0.30); CALCIUM LEVEL 8.4 MG/DL (8.8-10.2); CARBON DIOXIDE LEVEL 28 MEQ/L (21-32); CHLORIDE LEVEL 99 MEQ/L (98-107); CPK CREATINE PHOSPHOKINASE 41 U/L (26-192); CREATININE FOR GFR 1.61 MG/DL (0.55-1.30); GLOMERULAR FILTRATION RATE 33.4 (>39); POTASSIUM SERUM 4.1 MEQ/L (3.5-5.1); SODIUM LEVEL 137 MEQ/L (136-145); TOTAL PROTEIN 6.1 GM/DL (6.4-8.2); TROPONIN I < 0.02 NG/ML (< 0.10)
[2017-08-06 07:07] LABS: CK-MB VALUE MASS < 1.0 NG/ML (<3.6); MB/CK RELATIVE INDEX 2.43 (< OR =4); NT-PRO BNP 591 PG/ML (<125)
[2017-08-06 07:11] LABS: LACTIC ACID SEPSIS PROTOCOL 2.4 MMOL/L (0.4-2.0)
[2017-08-06 07:13] LABS: GLUCOSE, FASTING 476 MG/DL (70-100)
[2017-08-06] MEDS: METOCLOPRAMIDE 10 MG TAB PO ×3 (08:21→20:01)
[2017-08-06] MEDS: SUCRALFATE 1 GM TAB PO ×2 (08:21→20:00)
[2017-08-06] MEDS: levETIRAcetam 250MG TABLET (KEPPRA) PO ×2 (08:21→20:00)
[2017-08-06] MEDS: OMEPRAZOLE 20 MG CAP PO ×2 (08:22→20:00)
[2017-08-06] MEDS: PREGABALIN 75 MG CAP(LYRICA) PO ×2 (08:22→20:00)
[2017-08-06] MEDS: COLCHICINE 0.6 MG TAB PO (08:22)
[2017-08-06] MEDS: SENOKOT S TAB PO ×2 (08:22→20:01)
[2017-08-06] MEDS: ONDANSETRON 4 MG TAB (S0181) PO ×4 (08:22→20:01)
[2017-08-06] MEDS: POTASSIUM CHLORIDE 10 MEQ SR TABLET PO (08:22)
[2017-08-06] MEDS: DOCUSATE SODIUM 100 MG CAP PO ×2 (08:22→20:00)
[2017-08-06] MEDS: LACTULOSE 20 GM/30 ML SYRUP UD PO ×2 (08:22→20:00)
[2017-08-06] MEDS: ALLOPURINOL 300 MG TAB PO (08:22)
[2017-08-06] MEDS: SPIRONOLACTONE 25 MG TAB PO ×2 (08:22→20:01)
[2017-08-06] MEDS: BISOPROLOL FUM 2.5 MG PER 1/2TAB PO (08:23)
[2017-08-06] MEDS: HumaLOG INSULIN (NovoLOG) PER UNIT SC ×5 (08:23→20:57)
[2017-08-06] MEDS: LEVEMIR (INSULIN DETEMIR) 1 UNITS/0.01ML SC ×3 (08:23→20:56)
[2017-08-06] MEDS: LACTIC ACID 12% LOTION 225 GM BTL TOP ×2 (08:24→20:01)
[2017-08-06] MEDS: ANALGESIC BALM CRM 120 GM TOP ×4 (08:24→17:00)
[2017-08-06] MEDS ORDERED: LEVEMIR (INSULIN DETEMIR) 1 UNITS/0.01ML SC (09:00)
[2017-08-06] MEDS: guaiFENesin ER 600 MG TAB PO (09:41)
[2017-08-06 12:29] LABS: BEDSIDE GLUCOSE 490 MG/DL (83-110)
[2017-08-06] MEDS: FIORICET TAB PO (12:32)
[2017-08-06] MEDS: rOPINIRole 1MG TAB PO ×2 (14:06→20:00)
[2017-08-06 18:45] LABS: BEDSIDE GLUCOSE CONFIRMATION 512 MG/DL (LESS THAN 200)
[2017-08-06 19:43] LABS: ESTIMATED AVERAGE GLUCOSE 223 MG/DL (60-110); HEMOGLOBIN A1c 9.4 %
[2017-08-06] MEDS: BETAMETHASONE VAL 0.1% OINT 15 GM TOP (20:02)
[2017-08-06] MEDS: NS 1,000 ML IV (20:03)
[2017-08-06 20:43] LABS: BEDSIDE GLUCOSE 455 MG/DL (83-110)
[2017-08-07] MEDS: IPRATROPIUM 0.5MG/ALBUTEROL 2.5MG INH SOL UD 3ML (DUONEB)(J7620) NEB ×4 (02:24→20:36)
[2017-08-07] MEDS: HEPARIN SOD (PORCINE) 5000 UNITS/ML VIAL SC ×3 (05:52→21:54)
[2017-08-07] MEDS: PERCOCET 5MG/325MG TAB PO ×4 (05:54→23:40)
[2017-08-07 06:54] LABS: HEMATOCRIT 30.6 % (36.0-47.0); HEMOGLOBIN 8.7 g/dl (12.0-15.5); MEAN CORPUSCULAR VOLUME 74.1 fl (80.0-96.0); RED BLOOD COUNT 4.13 10^6/uL (4.00-5.40); WHITE BLOOD COUNT 9.2 10^3/uL (4.0-10.0)
[2017-08-07 06:55] LABS: BASO # 0.1 10^3/uL (0.0-0.2); BASO % 0.7 % (0.0-1.0); EOS # 0.3 10^3/uL (0.0-0.50); EOS % 2.8 % (0.0-3.0); IMMATURE GRANULOCYTE % 0.7 % (0-3.0); LYMPH # 1.3 10^3/uL (1.5-4.5); LYMPH % 14.6 % (24.0-44.0); MEAN CORPUSCULAR HEMOGLOBIN 21.1 pg (27.0-33.0); MEAN CORPUSCULAR HGB CONC 28.4 g/dl (32.0-36.5); MONO # 0.7 10^3/uL (0.0-0.8); MONO % 7.2 % (0.0-5.0); NEUTROPHILS # 6.8 10^3/uL (1.8-7.7); PLATELET COUNT, AUTOMATED 286 10^3/uL (150-450); RED CELL DISTRIBUTION WIDTH 19.7 % (11.5-14.5)
[2017-08-07 07:14] LABS: ALBUMIN 2.7 GM/DL (3.2-5.2); ALBUMIN/GLOBULIN RATIO 0.69 (1.00-1.93); ALKALINE PHOSPHATASE 112 U/L (45-117); ALT/SGPT 25 U/L (12-78); ANION GAP 5 MEQ/L (8-16); AST/SGOT 23 U/L (7-37); BILIRUBIN,TOTAL 0.2 MG/DL (0.2-1.0); BLOOD UREA NITROGEN 18 MG/DL (7-18); C REACTIVE PROTEIN QUANTITATIV 5.01 MG/DL (0.00-0.30); CALCIUM LEVEL 8.7 MG/DL (8.8-10.2); CARBON DIOXIDE LEVEL 28 MEQ/L (21-32); CHLORIDE LEVEL 102 MEQ/L (98-107); CPK CREATINE PHOSPHOKINASE 38 U/L (26-192); CREATININE FOR GFR 1.46 MG/DL (0.55-1.30); GLOMERULAR FILTRATION RATE 37.4 (>39); GLUCOSE, FASTING 372 MG/DL (70-100); POTASSIUM SERUM 4.4 MEQ/L (3.5-5.1); SODIUM LEVEL 135 MEQ/L (136-145); TOTAL PROTEIN 6.6 GM/DL (6.4-8.2); TROPONIN I < 0.02 NG/ML (< 0.10)
[2017-08-07 07:15] LABS: LACTIC ACID SEPSIS PROTOCOL 1.8 MMOL/L (0.4-2.0)
[2017-08-07 07:15] LABS: CK-MB VALUE MASS < 1.0 NG/ML (<3.6); MB/CK RELATIVE INDEX 2.63 (< OR =4); NT-PRO BNP 785 PG/ML (<125)
[2017-08-07 07:19] LABS: ERYTHROCYTE SEDIMENTATION RATE 58 mm/hr (0-30)
[2017-08-07] MEDS ORDERED: HumaLOG INSULIN (NovoLOG) PER UNIT SC (07:30)
[2017-08-07 08:02] LABS: BEDSIDE GLUCOSE 556 MG/DL (83-110)
[2017-08-07 08:02] LABS: BEDSIDE GLUCOSE 397 MG/DL (83-110)
[2017-08-07] MEDS: ACETAMINOPHEN 650MG ER TAB (TYLENOL ARTHRITIS) PO (09:39)
[2017-08-07] MEDS: LACTULOSE 20 GM/30 ML SYRUP UD PO ×2 (09:39→21:53)
[2017-08-07] MEDS: ALLOPURINOL 300 MG TAB PO (09:39)
[2017-08-07] MEDS: OMEPRAZOLE 20 MG CAP PO ×2 (09:40→21:53)
[2017-08-07] MEDS: SPIRONOLACTONE 25 MG TAB PO ×2 (09:40→21:54)
[2017-08-07] MEDS: SUCRALFATE 1 GM TAB PO ×2 (09:41→21:53)
[2017-08-07] MEDS: SENOKOT S TAB PO ×2 (09:41→21:53)
[2017-08-07] MEDS: POTASSIUM CHLORIDE 10 MEQ SR TABLET PO (09:41)
[2017-08-07] MEDS: ONDANSETRON 4 MG TAB (S0181) PO ×4 (09:41→21:57)
[2017-08-07] MEDS: levETIRAcetam 250MG TABLET (KEPPRA) PO ×2 (09:41→21:52)
[2017-08-07] MEDS: DOCUSATE SODIUM 100 MG CAP PO ×2 (09:41→21:53)
[2017-08-07] MEDS: PREGABALIN 75 MG CAP(LYRICA) PO ×2 (09:41→21:54)
[2017-08-07] MEDS: LEVEMIR (INSULIN DETEMIR) 1 UNITS/0.01ML SC ×2 (09:42→21:58)
[2017-08-07] MEDS: BISOPROLOL FUM 2.5 MG PER 1/2TAB PO (09:42)
[2017-08-07] MEDS: HumaLOG INSULIN (NovoLOG) PER UNIT SC ×3 (09:43→21:56)
[2017-08-07] MEDS: LACTIC ACID 12% LOTION 225 GM BTL TOP ×2 (09:43→21:58)
[2017-08-07] MEDS: METOCLOPRAMIDE 10 MG TAB PO ×3 (09:44→21:53)
[2017-08-07] MEDS: COLCHICINE 0.6 MG TAB PO (09:47)
[2017-08-07 10:34] LABS: BEDSIDE GLUCOSE 493 MG/DL (83-110)
[2017-08-07 10:34] LABS: BEDSIDE GLUCOSE 522 MG/DL (83-110)
[2017-08-07] MEDS: guaiFENesin ER 600 MG TAB PO (11:03)
[2017-08-07] MEDS: FIORICET TAB PO (14:23)
[2017-08-07] MEDS: rOPINIRole 1MG TAB PO ×2 (14:24→21:53)
[2017-08-07] MEDS: REPAGLINIDE 0.5 MG PO (17:18)
[2017-08-07] MEDS: HumaLOG INSULIN (NovoLOG) PER UNIT SQ (17:20)
[2017-08-07] MEDS: BETAMETHASONE VAL 0.1% OINT 15 GM TOP (21:58)
[2017-08-08] MEDS: IPRATROPIUM 0.5MG/ALBUTEROL 2.5MG INH SOL UD 3ML (DUONEB)(J7620) NEB ×4 (01:37→19:43)
[2017-08-08 01:56] LABS: BEDSIDE GLUCOSE 408 MG/DL (83-110)
[2017-08-08 01:56] LABS: BEDSIDE GLUCOSE 348 MG/DL (83-110)
[2017-08-08 01:56] LABS: BEDSIDE GLUCOSE 398 MG/DL (83-110)
[2017-08-08] MEDS: PERCOCET 5MG/325MG TAB PO ×4 (06:10→23:41)
[2017-08-08] MEDS: HEPARIN SOD (PORCINE) 5000 UNITS/ML VIAL SC ×2 (06:11→15:21)
[2017-08-08] MEDS ORDERED: LEVEMIR (INSULIN DETEMIR) 1 UNITS/0.01ML SC (06:30)
[2017-08-08] MEDS: PIPERACILLIN/TAZOBACTAM SOD 3.375 GM in D5W MINI-BAG PLUS 50 ML IV (06:45)
[2017-08-08] MEDS: PHENAZOPYRIDINE 100 MG TAB PO ×3 (09:00→21:23)
[2017-08-08] MEDS: LACTULOSE 20 GM/30 ML SYRUP UD PO ×2 (09:24→21:22)
[2017-08-08] MEDS: LEVEMIR (INSULIN DETEMIR) 1 UNITS/0.01ML SC ×3 (09:24→21:25)
[2017-08-08] MEDS: HumaLOG INSULIN (NovoLOG) PER UNIT SQ ×3 (09:25→18:49)
[2017-08-08] MEDS: SCOPOLAMINE 1MG TRANSDERMAL PATCH TD (09:26)
[2017-08-08] MEDS: SUCRALFATE 1 GM TAB PO ×2 (09:27→21:22)
[2017-08-08] MEDS: PREGABALIN 75 MG CAP(LYRICA) PO ×2 (09:27→21:23)
[2017-08-08] MEDS: SPIRONOLACTONE 25 MG TAB PO ×2 (09:27→21:22)
[2017-08-08] MEDS: COLCHICINE 0.6 MG TAB PO (09:27)
[2017-08-08] MEDS: ONDANSETRON 4 MG TAB (S0181) PO ×4 (09:27→21:24)
[2017-08-08] MEDS: ALLOPURINOL 300 MG TAB PO (09:27)
[2017-08-08] MEDS: OMEPRAZOLE 20 MG CAP PO ×2 (09:27→21:23)
[2017-08-08] MEDS: POTASSIUM CHLORIDE 10 MEQ SR TABLET PO (09:27)
[2017-08-08] MEDS: DOCUSATE SODIUM 100 MG CAP PO ×2 (09:27→21:23)
[2017-08-08] MEDS: levETIRAcetam 250MG TABLET (KEPPRA) PO ×2 (09:27→21:23)
[2017-08-08] MEDS: SENOKOT S TAB PO ×2 (09:27→21:24)
[2017-08-08] MEDS: MEROPENEM INJ 1 GM in APPROPRIATE DILUENT 1 EA IV ×2 (09:28→21:25)
[2017-08-08] MEDS: REPAGLINIDE 0.5 MG PO ×3 (09:28→18:48)
[2017-08-08] MEDS: BISOPROLOL FUM 2.5 MG PER 1/2TAB PO (09:28)
[2017-08-08] MEDS: METOCLOPRAMIDE 10 MG TAB PO ×3 (09:28→21:23)
[2017-08-08] MEDS: LACTIC ACID 12% LOTION 225 GM BTL TOP ×2 (09:29→21:26)
[2017-08-08 10:21] LABS: BEDSIDE GLUCOSE 376 MG/DL (83-110)
[2017-08-08] MEDS: NS 1,000 ML IV (12:03)
[2017-08-08] MEDS: rOPINIRole 1MG TAB PO ×2 (15:21→21:24)
[2017-08-08] MEDS: MOM 30ML SUSPENSION UDC PO (20:59)
[2017-08-08 21:04] LABS: BEDSIDE GLUCOSE 384 MG/DL (83-110)
[2017-08-08] MEDS: HumaLOG INSULIN (NovoLOG) PER UNIT SC (21:24)
[2017-08-08] MEDS: BETAMETHASONE VAL 0.1% OINT 15 GM TOP (21:27)
[2017-08-08] MEDS: FIORICET TAB PO (21:28)
[2017-08-09] MEDS: IPRATROPIUM 0.5MG/ALBUTEROL 2.5MG INH SOL UD 3ML (DUONEB)(J7620) NEB ×4 (01:19→20:00)
[2017-08-09 02:54] LABS: BEDSIDE GLUCOSE 402 MG/DL (83-110)
[2017-08-09 02:54] LABS: BEDSIDE GLUCOSE 423 MG/DL (83-110)
[2017-08-09] MEDS: REPAGLINIDE 0.5 MG PO ×3 (05:53→16:47)
[2017-08-09] MEDS: HumaLOG INSULIN (NovoLOG) PER UNIT SQ ×3 (05:53→16:47)
[2017-08-09 06:44] LABS: HEMATOCRIT 29.9 % (36.0-47.0); HEMOGLOBIN 8.5 g/dl (12.0-15.5); MEAN CORPUSCULAR HEMOGLOBIN 21.3 pg (27.0-33.0); MEAN CORPUSCULAR HGB CONC 28.4 g/dl (32.0-36.5); MEAN CORPUSCULAR VOLUME 74.8 fl (80.0-96.0); PLATELET COUNT, AUTOMATED 258 10^3/uL (150-450); RED CELL DISTRIBUTION WIDTH 19.6 % (11.5-14.5); WHITE BLOOD COUNT 6.1 10^3/uL (4.0-10.0)
[2017-08-09 07:09] LABS: ANION GAP 5 MEQ/L (8-16); BLOOD UREA NITROGEN 13 MG/DL (7-18); CARBON DIOXIDE LEVEL 27 MEQ/L (21-32); CHLORIDE LEVEL 105 MEQ/L (98-107); CREATININE FOR GFR 1.42 MG/DL (0.55-1.30); GLOMERULAR FILTRATION RATE 38.6 (>39); GLUCOSE, FASTING 362 MG/DL (70-100); POTASSIUM SERUM 4.6 MEQ/L (3.5-5.1); SODIUM LEVEL 137 MEQ/L (136-145)
[2017-08-09] MEDS: LACTIC ACID 12% LOTION 225 GM BTL TOP ×2 (09:00→22:13)
[2017-08-09] MEDS: PHENAZOPYRIDINE 100 MG TAB PO ×3 (09:00→22:10)
[2017-08-09] MEDS: ONDANSETRON 4 MG TAB (S0181) PO ×4 (09:00→22:11)
[2017-08-09] MEDS: METOCLOPRAMIDE 10 MG TAB PO ×3 (09:00→22:10)
[2017-08-09] MEDS: levETIRAcetam 250MG TABLET (KEPPRA) PO ×2 (12:42→22:10)
[2017-08-09] MEDS: COLCHICINE 0.6 MG TAB PO (12:43)
[2017-08-09] MEDS: SENOKOT S TAB PO ×2 (12:43→22:11)
[2017-08-09] MEDS: LACTULOSE 20 GM/30 ML SYRUP UD PO ×2 (12:43→22:09)
[2017-08-09] MEDS: DOCUSATE SODIUM 100 MG CAP PO ×2 (12:43→22:09)
[2017-08-09] MEDS: MOM 30ML SUSPENSION UDC PO (12:43)
[2017-08-09] MEDS: OMEPRAZOLE 20 MG CAP PO ×2 (12:43→22:10)
[2017-08-09] MEDS: SUCRALFATE 1 GM TAB PO ×2 (12:44→22:09)
[2017-08-09] MEDS: POTASSIUM CHLORIDE 10 MEQ SR TABLET PO (12:44)
[2017-08-09] MEDS: guaiFENesin ER 600 MG TAB PO (12:44)
[2017-08-09] MEDS: SPIRONOLACTONE 25 MG TAB PO ×2 (12:44→22:09)
[2017-08-09] MEDS: PREGABALIN 75 MG CAP(LYRICA) PO ×2 (12:44→22:10)
[2017-08-09] MEDS: ALLOPURINOL 300 MG TAB PO (12:44)
[2017-08-09] MEDS: BISOPROLOL FUM 2.5 MG PER 1/2TAB PO (12:47)
[2017-08-09] MEDS: MEROPENEM INJ 1 GM in APPROPRIATE DILUENT 1 EA IV ×2 (12:57→22:12)
[2017-08-09] MEDS: LEVEMIR (INSULIN DETEMIR) 1 UNITS/0.01ML SC ×2 (12:57→22:12)
[2017-08-09 13:06] LABS: BEDSIDE GLUCOSE 424 MG/DL (83-110)
[2017-08-09] MEDS ORDERED: LIDOCAINE 2% MDV 20 ML VIAL As Ordered (13:11)
[2017-08-09] MEDS ORDERED: ISOVUE-300 61% 50ML VIAL (Q9967) As Ordered (13:12)
[2017-08-09] MEDS: PERCOCET 5MG/325MG TAB PO ×2 (13:15→22:14)
[2017-08-09] MEDS: rOPINIRole 1MG TAB PO ×2 (14:45→22:11)
[2017-08-09] MEDS: HEPARIN SOD (PORCINE) 5000 UNITS/ML VIAL SC ×2 (14:45→22:12)
[2017-08-09 16:31] LABS: BEDSIDE GLUCOSE 430 MG/DL (83-110)
[2017-08-09] MEDS: predniSONE 20 MG TAB PO (16:47)
[2017-08-09 21:02] LABS: BEDSIDE GLUCOSE 344 MG/DL (83-110)
[2017-08-09] MEDS: HumaLOG INSULIN (NovoLOG) PER UNIT SC (22:11)
[2017-08-09] MEDS: BETAMETHASONE VAL 0.1% OINT 15 GM TOP (22:13)
[2017-08-09] MEDS: BENZONATATE 100 MG CAP PO (22:14)
[2017-08-09] MEDS ORDERED: SODIUM CHLORIDE NASAL 0.65% SPRAY BTL (OCEAN) (23:00)
[2017-08-10] MEDS: SODIUM CHLORIDE 0.9% INJ 10 ML SYR IV ×3 (00:05→23:04)
[2017-08-10] MEDS: IPRATROPIUM 0.5MG/ALBUTEROL 2.5MG INH SOL UD 3ML (DUONEB)(J7620) NEB ×4 (00:14→21:51)
[2017-08-10] MEDS: PERCOCET 5MG/325MG TAB PO ×3 (03:31→22:34)
[2017-08-10] MEDS: HEPARIN SOD (PORCINE) 5000 UNITS/ML VIAL SC ×3 (06:16→21:50)
[2017-08-10 06:49] LABS: HEMATOCRIT 31.2 % (36.0-47.0); HEMOGLOBIN 8.8 g/dl (12.0-15.5); MEAN CORPUSCULAR HEMOGLOBIN 20.8 pg (27.0-33.0); MEAN CORPUSCULAR HGB CONC 28.2 g/dl (32.0-36.5); MEAN CORPUSCULAR VOLUME 73.8 fl (80.0-96.0); PLATELET COUNT, AUTOMATED 294 10^3/uL (150-450); RED BLOOD COUNT 4.23 10^6/uL (4.00-5.40); RED CELL DISTRIBUTION WIDTH 19.4 % (11.5-14.5); WHITE BLOOD COUNT 6.4 10^3/uL (4.0-10.0)
[2017-08-10 07:13] LABS: ANION GAP 5 MEQ/L (8-16); BLOOD UREA NITROGEN 13 MG/DL (7-18); CALCIUM LEVEL 9.5 MG/DL (8.8-10.2); CARBON DIOXIDE LEVEL 28 MEQ/L (21-32); CHLORIDE LEVEL 101 MEQ/L (98-107); GLOMERULAR FILTRATION RATE 36.2 (>39); POTASSIUM SERUM 5.1 MEQ/L (3.5-5.1); SODIUM LEVEL 134 MEQ/L (136-145)
[2017-08-10 07:25] LABS: GLUCOSE, FASTING 404 MG/DL (70-100)
[2017-08-10] MEDS: LACTULOSE 20 GM/30 ML SYRUP UD PO ×2 (08:35→21:49)
[2017-08-10] MEDS: MEROPENEM INJ 1 GM in APPROPRIATE DILUENT 1 EA IV ×2 (08:37→21:43)
[2017-08-10] MEDS: REPAGLINIDE 0.5 MG PO ×3 (08:38→18:42)
[2017-08-10] MEDS: SENOKOT S TAB PO ×2 (08:38→21:50)
[2017-08-10] MEDS: ALLOPURINOL 300 MG TAB PO (08:38)
[2017-08-10] MEDS: SUCRALFATE 1 GM TAB PO ×2 (08:38→21:48)
[2017-08-10] MEDS: DOCUSATE SODIUM 100 MG CAP PO ×2 (08:38→21:49)
[2017-08-10] MEDS: ONDANSETRON 4 MG TAB (S0181) PO ×4 (08:38→21:46)
[2017-08-10] MEDS: OMEPRAZOLE 20 MG CAP PO ×2 (08:39→21:48)
[2017-08-10] MEDS: PHENAZOPYRIDINE 100 MG TAB PO ×3 (08:39→21:44)
[2017-08-10] MEDS: METOCLOPRAMIDE 10 MG TAB PO ×3 (08:39→21:47)
[2017-08-10] MEDS: PREGABALIN 75 MG CAP(LYRICA) PO ×2 (08:39→21:47)
[2017-08-10] MEDS: COLCHICINE 0.6 MG TAB PO (08:39)
[2017-08-10] MEDS: POTASSIUM CHLORIDE 10 MEQ SR TABLET PO (08:39)
[2017-08-10] MEDS: levETIRAcetam 250MG TABLET (KEPPRA) PO ×2 (08:40→21:46)
[2017-08-10] MEDS: BENZONATATE 100 MG CAP PO ×2 (08:40→22:34)
[2017-08-10] MEDS: SPIRONOLACTONE 25 MG TAB PO ×2 (08:40→21:44)
[2017-08-10] MEDS: BISOPROLOL FUM 2.5 MG PER 1/2TAB PO (08:40)
[2017-08-10] MEDS: predniSONE 20 MG TAB PO (08:40)
[2017-08-10] MEDS: LEVEMIR (INSULIN DETEMIR) 1 UNITS/0.01ML SC ×2 (08:43→21:53)
[2017-08-10] MEDS: LACTIC ACID 12% LOTION 225 GM BTL TOP ×2 (08:43→21:44)
[2017-08-10] MEDS: HumaLOG INSULIN (NovoLOG) PER UNIT SQ ×3 (08:44→18:42)
[2017-08-10 11:53] LABS: BEDSIDE GLUCOSE 439 MG/DL (83-110)
[2017-08-10] MEDS: TORSEMIDE 100 MG TAB PO (16:20)
[2017-08-10] MEDS: rOPINIRole 1MG TAB PO ×2 (16:21→21:50)
[2017-08-10 17:14] LABS: BEDSIDE GLUCOSE 461 MG/DL (83-110)
[2017-08-10] MEDS: BETAMETHASONE VAL 0.1% OINT 15 GM TOP (21:43)
[2017-08-10] MEDS: HumaLOG INSULIN (NovoLOG) PER UNIT SC (21:52)
[2017-08-11] MEDS: IPRATROPIUM 0.5MG/ALBUTEROL 2.5MG INH SOL UD 3ML (DUONEB)(J7620) NEB ×4 (02:00→20:54)
[2017-08-11 06:01] LABS: HEMATOCRIT 30.5 % (36.0-47.0); HEMOGLOBIN 8.6 g/dl (12.0-15.5); MEAN CORPUSCULAR HEMOGLOBIN 20.8 pg (27.0-33.0); MEAN CORPUSCULAR HGB CONC 28.2 g/dl (32.0-36.5); MEAN CORPUSCULAR VOLUME 73.8 fl (80.0-96.0); PLATELET COUNT, AUTOMATED 302 10^3/uL (150-450); RED BLOOD COUNT 4.13 10^6/uL (4.00-5.40); RED CELL DISTRIBUTION WIDTH 19.8 % (11.5-14.5); WHITE BLOOD COUNT 6.5 10^3/uL (4.0-10.0)
[2017-08-11 06:25] LABS: ANION GAP 7 MEQ/L (8-16); BLOOD UREA NITROGEN 21 MG/DL (7-18); CALCIUM LEVEL 9.4 MG/DL (8.8-10.2); CARBON DIOXIDE LEVEL 31 MEQ/L (21-32); CHLORIDE LEVEL 96 MEQ/L (98-107); CREATININE FOR GFR 1.73 MG/DL (0.55-1.30); GLOMERULAR FILTRATION RATE 30.7 (>39); POTASSIUM SERUM 4.2 MEQ/L (3.5-5.1); SODIUM LEVEL 134 MEQ/L (136-145)
[2017-08-11] MEDS: HEPARIN SOD (PORCINE) 5000 UNITS/ML VIAL SC ×3 (06:27→21:46)
[2017-08-11 06:53] LABS: GLUCOSE, FASTING 513 MG/DL (70-100)
[2017-08-11] MEDS: MEROPENEM INJ 1 GM in APPROPRIATE DILUENT 1 EA IV ×2 (08:05→21:47)
[2017-08-11] MEDS: LACTULOSE 20 GM/30 ML SYRUP UD PO ×2 (08:05→21:45)
[2017-08-11] MEDS: DOCUSATE SODIUM 100 MG CAP PO ×2 (08:06→21:44)
[2017-08-11] MEDS: predniSONE 20 MG TAB PO (08:06)
[2017-08-11] MEDS: REPAGLINIDE 0.5 MG PO ×3 (08:06→17:51)
[2017-08-11] MEDS: POTASSIUM CHLORIDE 10 MEQ SR TABLET PO ×2 (08:06→19:49)
[2017-08-11] MEDS: levETIRAcetam 250MG TABLET (KEPPRA) PO ×2 (08:06→21:45)
[2017-08-11] MEDS: PREGABALIN 75 MG CAP(LYRICA) PO ×2 (08:07→21:44)
[2017-08-11] MEDS: SENOKOT S TAB PO ×2 (08:07→21:44)
[2017-08-11] MEDS: COLCHICINE 0.6 MG TAB PO (08:07)
[2017-08-11] MEDS: METOCLOPRAMIDE 10 MG TAB PO ×3 (08:08→21:44)
[2017-08-11] MEDS: ONDANSETRON 4 MG TAB (S0181) PO ×4 (08:08→21:45)
[2017-08-11] MEDS: OMEPRAZOLE 20 MG CAP PO ×2 (08:08→21:44)
[2017-08-11] MEDS: BISOPROLOL FUM 2.5 MG PER 1/2TAB PO (08:08)
[2017-08-11] MEDS: ALLOPURINOL 300 MG TAB PO (08:08)
[2017-08-11] MEDS: SUCRALFATE 1 GM TAB PO ×2 (08:08→21:44)
[2017-08-11] MEDS: HumaLOG INSULIN (NovoLOG) PER UNIT SQ ×3 (08:09→17:51)
[2017-08-11] MEDS: LEVEMIR (INSULIN DETEMIR) 1 UNITS/0.01ML SC ×3 (08:09→22:00)
[2017-08-11] MEDS: SCOPOLAMINE 1MG TRANSDERMAL PATCH TD (08:09)
[2017-08-11] MEDS: SODIUM CHLORIDE 0.9% INJ 10 ML SYR IV (08:10)
[2017-08-11] MEDS: LACTIC ACID 12% LOTION 225 GM BTL TOP ×2 (08:10→21:47)
[2017-08-11] MEDS: SPIRONOLACTONE 25 MG TAB PO ×2 (09:53→21:45)
[2017-08-11] MEDS: TORSEMIDE 100 MG TAB PO (09:53)
[2017-08-11 11:46] LABS: BEDSIDE GLUCOSE 484 MG/DL (83-110)
[2017-08-11] MEDS: PERCOCET 5MG/325MG TAB PO ×3 (11:58→22:42)
[2017-08-11] MEDS: rOPINIRole 1MG TAB PO ×2 (15:09→21:44)
[2017-08-11 17:00] LABS: BEDSIDE GLUCOSE 586 MG/DL (83-110)
[2017-08-11 17:30] LABS: BEDSIDE GLUCOSE CONFIRMATION 583 MG/DL (LESS THAN 200)
[2017-08-11] MEDS: KCL 40MEQ in NS 1000ML 1,000 ML IV (19:48)
[2017-08-11 19:50] LABS: ANION GAP 7 MEQ/L (8-16); BLOOD UREA NITROGEN 27 MG/DL (7-18); CALCIUM LEVEL 8.7 MG/DL (8.8-10.2); CARBON DIOXIDE LEVEL 30 MEQ/L (21-32); CHLORIDE LEVEL 93 MEQ/L (98-107); CREATININE FOR GFR 1.99 MG/DL (0.55-1.30); GLOMERULAR FILTRATION RATE 26.2 (>39); POTASSIUM SERUM 4.9 MEQ/L (3.5-5.1); SODIUM LEVEL 130 MEQ/L (136-145)
[2017-08-11 19:53] LABS: GLUCOSE, FASTING 578 MG/DL (70-100)
[2017-08-11] MEDS: INSULIN HUMAN REGULAR 100 UNITS in NS 99 ML IV (20:29)
[2017-08-11] MEDS: INSULIN IV RATE CHANGE DOCUMENTATION ML/HR XX ×2 (20:33→23:46)
[2017-08-11 21:44] LABS: BEDSIDE GLUCOSE 529 MG/DL (83-110)
[2017-08-11] MEDS: ANALGESIC BALM CRM 120 GM TOP (21:47)
[2017-08-11] MEDS: BETAMETHASONE VAL 0.1% OINT 15 GM TOP (21:48)
[2017-08-11 22:47] LABS: ANION GAP 7 MEQ/L (8-16); BLOOD UREA NITROGEN 27 MG/DL (7-18); CALCIUM LEVEL 8.9 MG/DL (8.8-10.2); CARBON DIOXIDE LEVEL 31 MEQ/L (21-32); CHLORIDE LEVEL 94 MEQ/L (98-107); CREATININE FOR GFR 1.95 MG/DL (0.55-1.30); GLOMERULAR FILTRATION RATE 26.8 (>39); POTASSIUM SERUM 4.6 MEQ/L (3.5-5.1); SODIUM LEVEL 132 MEQ/L (136-145)
[2017-08-11 22:49] LABS: GLUCOSE, FASTING 485 MG/DL (70-100)
[2017-08-12] MEDS: INSULIN IV RATE CHANGE DOCUMENTATION ML/HR XX ×3 (01:08→07:59)
[2017-08-12 01:10] LABS: BEDSIDE GLUCOSE 447 MG/DL (83-110)
[2017-08-12 01:10] LABS: BEDSIDE GLUCOSE 419 MG/DL (83-110)
[2017-08-12] MEDS ORDERED: HumuLIN R (REGULAR) INSULIN (NovoLIN R) **100U/ML** PER UNIT As Ordered (01:18)
[2017-08-12] MEDS: IPRATROPIUM 0.5MG/ALBUTEROL 2.5MG INH SOL UD 3ML (DUONEB)(J7620) NEB ×4 (02:24→20:01)
[2017-08-12] MEDS: guaiFENesin ER 600 MG TAB PO (03:37)
[2017-08-12] MEDS: PERCOCET 5MG/325MG TAB PO ×6 (03:38→22:00)
[2017-08-12 03:53] LABS: BEDSIDE GLUCOSE 341 MG/DL (83-110)
[2017-08-12 05:00] LABS: HEMATOCRIT 29.7 % (36.0-47.0); HEMOGLOBIN 8.3 g/dl (12.0-15.5); MEAN CORPUSCULAR HEMOGLOBIN 20.7 pg (27.0-33.0); MEAN CORPUSCULAR HGB CONC 27.9 g/dl (32.0-36.5); MEAN CORPUSCULAR VOLUME 74.1 fl (80.0-96.0); PLATELET COUNT, AUTOMATED 295 10^3/uL (150-450); RED BLOOD COUNT 4.01 10^6/uL (4.00-5.40); RED CELL DISTRIBUTION WIDTH 19.5 % (11.5-14.5)
[2017-08-12 05:11] LABS: BEDSIDE GLUCOSE 307 MG/DL (83-110)
[2017-08-12 05:36] LABS: ANION GAP 6 MEQ/L (8-16); BLOOD UREA NITROGEN 27 MG/DL (7-18); CALCIUM LEVEL 8.7 MG/DL (8.8-10.2); CARBON DIOXIDE LEVEL 31 MEQ/L (21-32); CHLORIDE LEVEL 98 MEQ/L (98-107); CREATININE FOR GFR 1.68 MG/DL (0.55-1.30); GLOMERULAR FILTRATION RATE 31.8 (>39); GLUCOSE, FASTING 304 MG/DL (70-100); POTASSIUM SERUM 4.4 MEQ/L (3.5-5.1); SODIUM LEVEL 135 MEQ/L (136-145)
[2017-08-12] MEDS: LEVEMIR (INSULIN DETEMIR) 1 UNITS/0.01ML SC ×3 (05:39→21:28)
[2017-08-12] MEDS: HEPARIN SOD (PORCINE) 5000 UNITS/ML VIAL SC ×3 (06:22→21:29)
[2017-08-12] MEDS: INSULIN HUMAN REGULAR 100 UNITS in NS 99 ML IV (07:51)
[2017-08-12 08:10] LABS: BEDSIDE GLUCOSE 218 MG/DL (83-110)
[2017-08-12] MEDS: predniSONE 20 MG TAB PO (08:37)
[2017-08-12] MEDS: REPAGLINIDE 0.5 MG PO ×3 (08:37→17:07)
[2017-08-12] MEDS: SENOKOT S TAB PO ×2 (08:38→21:31)
[2017-08-12] MEDS: PREGABALIN 75 MG CAP(LYRICA) PO ×2 (08:38→21:32)
[2017-08-12] MEDS: levETIRAcetam 250MG TABLET (KEPPRA) PO ×2 (08:39→21:31)
[2017-08-12] MEDS: DOCUSATE SODIUM 100 MG CAP PO ×2 (08:39→21:31)
[2017-08-12] MEDS: METOCLOPRAMIDE 10 MG TAB PO ×3 (08:39→21:30)
[2017-08-12] MEDS: POTASSIUM CHLORIDE 10 MEQ SR TABLET PO (08:40)
[2017-08-12] MEDS: ALLOPURINOL 300 MG TAB PO (08:41)
[2017-08-12] MEDS: COLCHICINE 0.6 MG TAB PO (08:41)
[2017-08-12] MEDS: BISOPROLOL FUM 2.5 MG PER 1/2TAB PO (08:41)
[2017-08-12] MEDS: ONDANSETRON 4 MG TAB (S0181) PO ×4 (08:42→21:31)
[2017-08-12] MEDS: SPIRONOLACTONE 25 MG TAB PO ×2 (08:42→21:30)
[2017-08-12] MEDS: SUCRALFATE 1 GM TAB PO ×2 (08:42→21:30)
[2017-08-12] MEDS: OMEPRAZOLE 20 MG CAP PO ×2 (08:43→21:30)
[2017-08-12] MEDS: SODIUM CHLORIDE 0.9% INJ 10 ML SYR IV (08:44)
[2017-08-12] MEDS: ANALGESIC BALM CRM 120 GM TOP ×3 (08:46→21:00)
[2017-08-12] MEDS: LACTIC ACID 12% LOTION 225 GM BTL TOP ×2 (08:48→21:33)
[2017-08-12] MEDS: LACTULOSE 20 GM/30 ML SYRUP UD PO ×2 (08:50→21:28)
[2017-08-12 09:24] LABS: BEDSIDE GLUCOSE 501 MG/DL (83-110)
[2017-08-12 09:25] LABS: BEDSIDE GLUCOSE 493 MG/DL (83-110)
[2017-08-12 09:42] LABS: BEDSIDE GLUCOSE 170 MG/DL (83-110)
[2017-08-12] MEDS: MEROPENEM INJ 1 GM in APPROPRIATE DILUENT 1 EA IV ×2 (09:53→21:28)
[2017-08-12 10:31] LABS: BEDSIDE GLUCOSE 135 MG/DL (83-110)
[2017-08-12 11:04] LABS: ANION GAP 6 MEQ/L (8-16); BLOOD UREA NITROGEN 26 MG/DL (7-18); CALCIUM LEVEL 9.1 MG/DL (8.8-10.2); CARBON DIOXIDE LEVEL 33 MEQ/L (21-32); CHLORIDE LEVEL 99 MEQ/L (98-107); CREATININE FOR GFR 1.52 MG/DL (0.55-1.30); GLOMERULAR FILTRATION RATE 35.7 (>39); GLUCOSE, FASTING 124 MG/DL (70-100); POTASSIUM SERUM 4.2 MEQ/L (3.5-5.1); SODIUM LEVEL 138 MEQ/L (136-145)
[2017-08-12] MEDS: HumaLOG INSULIN (NovoLOG) PER UNIT SC ×3 (12:00→21:29)
[2017-08-12 12:13] LABS: BEDSIDE GLUCOSE 236 MG/DL (83-110)
[2017-08-12] MEDS ORDERED: DEXTROSE 50% 50 ML SYRINGE IV (12:15)
[2017-08-12] MEDS ORDERED: GLUCAGON FOR INJ 1 MG VIAL (J1610) SC (12:15)
[2017-08-12] MEDS ORDERED: GLUCOSE 4 GM CHEW TABLET PO (12:15)
[2017-08-12 12:29] LABS: BEDSIDE GLUCOSE 110 MG/DL (83-110)
[2017-08-12 12:40] LABS: BEDSIDE GLUCOSE 103 MG/DL (83-110)
[2017-08-12 14:11] LABS: BEDSIDE GLUCOSE 152 MG/DL (83-110)
[2017-08-12] MEDS: rOPINIRole 1MG TAB PO ×2 (15:15→21:31)
[2017-08-12 15:41] LABS: ANION GAP 6 MEQ/L (8-16); BLOOD UREA NITROGEN 28 MG/DL (7-18); CARBON DIOXIDE LEVEL 28 MEQ/L (21-32); CHLORIDE LEVEL 101 MEQ/L (98-107); CREATININE FOR GFR 1.55 MG/DL (0.55-1.30); GLOMERULAR FILTRATION RATE 34.9 (>39); GLUCOSE, FASTING 213 MG/DL (70-100); SODIUM LEVEL 135 MEQ/L (136-145)
[2017-08-12 15:42] LABS: CALCIUM LEVEL 8.6 MG/DL (8.8-10.2)
[2017-08-12 15:44] LABS: POTASSIUM SERUM 5.6 MEQ/L (3.5-5.1)
[2017-08-12 17:07] LABS: BEDSIDE GLUCOSE 345 MG/DL (83-110)
[2017-08-12 21:04] LABS: BEDSIDE GLUCOSE 446 MG/DL (83-110)
[2017-08-12] MEDS: BETAMETHASONE VAL 0.1% OINT 15 GM TOP (21:33)
[2017-08-13] MEDS: IPRATROPIUM 0.5MG/ALBUTEROL 2.5MG INH SOL UD 3ML (DUONEB)(J7620) NEB ×4 (01:40→20:09)
[2017-08-13 04:38] LABS: BASO % 0.3 % (0.0-1.0); EOS % 0.1 % (0.0-3.0); HEMATOCRIT 29.3 % (36.0-47.0); HEMOGLOBIN 8.2 g/dl (12.0-15.5); IMMATURE GRANULOCYTE % 1.6 % (0-3.0); LYMPH # 1.6 10^3/uL (1.5-4.5); LYMPH % 22.6 % (24.0-44.0); MEAN CORPUSCULAR HEMOGLOBIN 20.7 pg (27.0-33.0); MEAN CORPUSCULAR VOLUME 73.8 fl (80.0-96.0); MONO # 0.7 10^3/uL (0.0-0.8); MONO % 10.5 % (0.0-5.0); NEUTROPHILS # 4.6 10^3/uL (1.8-7.7); NEUTROPHILS % 64.9 % (36.0-66.0); PLATELET COUNT, AUTOMATED 267 10^3/uL (150-450); RED BLOOD COUNT 3.97 10^6/uL (4.00-5.40); RED CELL DISTRIBUTION WIDTH 19.7 % (11.5-14.5); WHITE BLOOD COUNT 7.1 10^3/uL (4.0-10.0)
[2017-08-13 04:57] LABS: ANION GAP 6 MEQ/L (8-16); BLOOD UREA NITROGEN 34 MG/DL (7-18); CALCIUM LEVEL 8.6 MG/DL (8.8-10.2); CARBON DIOXIDE LEVEL 30 MEQ/L (21-32); CHLORIDE LEVEL 99 MEQ/L (98-107); CREATININE FOR GFR 1.68 MG/DL (0.55-1.30); GLOMERULAR FILTRATION RATE 31.8 (>39); MAGNESIUM LEVEL 2.9 MG/DL (1.8-2.4); SODIUM LEVEL 135 MEQ/L (136-145)
[2017-08-13 05:01] LABS: GLUCOSE, FASTING 404 MG/DL (70-100)
[2017-08-13 05:02] LABS: POTASSIUM SERUM 5.2 MEQ/L (3.5-5.1)
[2017-08-13] MEDS: LEVEMIR (INSULIN DETEMIR) 1 UNITS/0.01ML SC ×3 (05:27→21:14)
[2017-08-13] MEDS: HEPARIN SOD (PORCINE) 5000 UNITS/ML VIAL SC ×3 (05:28→21:15)
[2017-08-13] MEDS: REPAGLINIDE 0.5 MG PO ×3 (07:40→17:48)
[2017-08-13] MEDS: HumaLOG INSULIN (NovoLOG) PER UNIT SC ×4 (07:40→21:14)
[2017-08-13] MEDS: SUCRALFATE 1 GM TAB PO ×2 (08:16→21:12)
[2017-08-13] MEDS: SENOKOT S TAB PO ×2 (08:16→21:13)
[2017-08-13] MEDS: OMEPRAZOLE 20 MG CAP PO ×2 (08:16→21:13)
[2017-08-13] MEDS: DOCUSATE SODIUM 100 MG CAP PO ×2 (08:16→21:13)
[2017-08-13] MEDS: PERCOCET 5MG/325MG TAB PO ×3 (08:17→19:37)
[2017-08-13] MEDS: METOCLOPRAMIDE 10 MG TAB PO ×3 (08:17→21:13)
[2017-08-13] MEDS: SPIRONOLACTONE 25 MG TAB PO ×2 (08:17→21:12)
[2017-08-13] MEDS: ONDANSETRON 4 MG TAB (S0181) PO ×4 (08:17→21:13)
[2017-08-13] MEDS: BISOPROLOL FUM 2.5 MG PER 1/2TAB PO (08:18)
[2017-08-13] MEDS: COLCHICINE 0.6 MG TAB PO (08:18)
[2017-08-13] MEDS: PREGABALIN 75 MG CAP(LYRICA) PO ×2 (08:18→21:12)
[2017-08-13] MEDS: predniSONE 20 MG TAB PO (08:19)
[2017-08-13] MEDS: ALLOPURINOL 300 MG TAB PO (08:19)
[2017-08-13] MEDS: SODIUM CHLORIDE 0.9% INJ 10 ML SYR IV (08:19)
[2017-08-13] MEDS: LACTULOSE 20 GM/30 ML SYRUP UD PO ×2 (08:19→21:11)
[2017-08-13] MEDS: levETIRAcetam 250MG TABLET (KEPPRA) PO ×2 (08:19→21:13)
[2017-08-13] MEDS: MEROPENEM INJ 1 GM in APPROPRIATE DILUENT 1 EA IV ×2 (08:20→21:11)
[2017-08-13] MEDS: ANALGESIC BALM CRM 120 GM TOP ×3 (08:20→21:00)
[2017-08-13] MEDS: LACTIC ACID 12% LOTION 225 GM BTL TOP ×2 (08:21→21:15)
[2017-08-13 11:39] LABS: BEDSIDE GLUCOSE 310 MG/DL (83-110)
[2017-08-13] MEDS ORDERED: NS 1,000 ML IV (13:15)
[2017-08-13] MEDS: rOPINIRole 1MG TAB PO ×2 (15:00→21:12)
[2017-08-13 17:32] LABS: BEDSIDE GLUCOSE 385 MG/DL (83-110)
[2017-08-13] MEDS: BETAMETHASONE VAL 0.1% OINT 15 GM TOP (21:16)
[2017-08-13 21:40] LABS: BEDSIDE GLUCOSE 431 MG/DL (83-110)
[2017-08-14] MEDS: IPRATROPIUM 0.5MG/ALBUTEROL 2.5MG INH SOL UD 3ML (DUONEB)(J7620) NEB ×4 (01:58→21:08)
[2017-08-14] MEDS: PERCOCET 5MG/325MG TAB PO ×4 (03:34→21:45)
[2017-08-14 04:43] LABS: BASO % 0.7 % (0.0-1.0); EOS % 0.2 % (0.0-3.0); HEMATOCRIT 28.3 % (36.0-47.0); IMMATURE GRANULOCYTE % 1.6 % (0-3.0); LYMPH # 1.4 10^3/uL (1.5-4.5); LYMPH % 25.9 % (24.0-44.0); MEAN CORPUSCULAR HEMOGLOBIN 20.9 pg (27.0-33.0); MEAN CORPUSCULAR HGB CONC 28.3 g/dl (32.0-36.5); MEAN CORPUSCULAR VOLUME 74.1 fl (80.0-96.0); MONO # 0.6 10^3/uL (0.0-0.8); MONO % 10.4 % (0.0-5.0); NEUTROPHILS # 3.4 10^3/uL (1.8-7.7); NEUTROPHILS % 61.2 % (36.0-66.0); PLATELET COUNT, AUTOMATED 252 10^3/uL (150-450); RED BLOOD COUNT 3.82 10^6/uL (4.00-5.40); RED CELL DISTRIBUTION WIDTH 19.8 % (11.5-14.5); WHITE BLOOD COUNT 5.5 10^3/uL (4.0-10.0)
[2017-08-14 04:51] LABS: ANION GAP 7 MEQ/L (8-16); BLOOD UREA NITROGEN 33 MG/DL (7-18); CALCIUM LEVEL 8.5 MG/DL (8.8-10.2); CARBON DIOXIDE LEVEL 29 MEQ/L (21-32); CHLORIDE LEVEL 101 MEQ/L (98-107); CREATININE FOR GFR 1.48 MG/DL (0.55-1.30); GLOMERULAR FILTRATION RATE 36.8 (>39); GLUCOSE, FASTING 386 MG/DL (70-100); POTASSIUM SERUM 4.5 MEQ/L (3.5-5.1); SODIUM LEVEL 137 MEQ/L (136-145)
[2017-08-14 05:16] LABS: POS COUNT POS FLAG
[2017-08-14] MEDS: HEPARIN SOD (PORCINE) 5000 UNITS/ML VIAL SC ×3 (05:51→21:47)
[2017-08-14] MEDS: LEVEMIR (INSULIN DETEMIR) 1 UNITS/0.01ML SC ×3 (05:51→21:47)
[2017-08-14] MEDS: ONDANSETRON 4 MG TAB (S0181) PO ×4 (08:01→21:46)
[2017-08-14] MEDS: SENOKOT S TAB PO ×2 (08:01→21:45)
[2017-08-14] MEDS: LACTULOSE 20 GM/30 ML SYRUP UD PO ×2 (08:01→21:41)
[2017-08-14] MEDS: SPIRONOLACTONE 25 MG TAB PO ×2 (08:01→21:46)
[2017-08-14] MEDS: ALLOPURINOL 300 MG TAB PO (08:01)
[2017-08-14] MEDS: DOCUSATE SODIUM 100 MG CAP PO ×2 (08:01→21:45)
[2017-08-14] MEDS: METOCLOPRAMIDE 10 MG TAB PO ×3 (08:01→21:45)
[2017-08-14] MEDS: OMEPRAZOLE 20 MG CAP PO ×2 (08:01→21:45)
[2017-08-14] MEDS: SUCRALFATE 1 GM TAB PO ×2 (08:02→21:45)
[2017-08-14] MEDS: PREGABALIN 75 MG CAP(LYRICA) PO ×2 (08:02→21:44)
[2017-08-14] MEDS: levETIRAcetam 250MG TABLET (KEPPRA) PO ×2 (08:02→21:44)
[2017-08-14] MEDS: COLCHICINE 0.6 MG TAB PO (08:02)
[2017-08-14] MEDS: REPAGLINIDE 0.5 MG PO ×3 (08:02→17:30)
[2017-08-14] MEDS: BISOPROLOL FUM 2.5 MG PER 1/2TAB PO (08:05)
[2017-08-14] MEDS: SCOPOLAMINE 1MG TRANSDERMAL PATCH TD (08:06)
[2017-08-14] MEDS: HumaLOG INSULIN (NovoLOG) PER UNIT SC ×4 (08:07→21:18)
[2017-08-14] MEDS: SODIUM CHLORIDE 0.9% INJ 10 ML SYR IV ×2 (08:07→23:02)
[2017-08-14] MEDS: MEROPENEM INJ 1 GM in APPROPRIATE DILUENT 1 EA IV ×2 (08:08→21:46)
[2017-08-14] MEDS: LACTIC ACID 12% LOTION 225 GM BTL TOP ×2 (08:08→21:41)
[2017-08-14] MEDS: ANALGESIC BALM CRM 120 GM TOP ×3 (08:09→21:19)
[2017-08-14 11:39] LABS: BEDSIDE GLUCOSE 298 MG/DL (83-110)
[2017-08-14] MEDS: guaiFENesin ER 600 MG TAB PO ×2 (14:58→21:45)
[2017-08-14] MEDS: rOPINIRole 1MG TAB PO ×2 (14:58→21:44)
[2017-08-14] MEDS: NYSTATIN 100,000 UNITS/GM TOPICAL PWD 15 GM TOP ×2 (16:36→17:31)
[2017-08-14] MEDS: BENZONATATE 100 MG CAP PO ×2 (17:30→23:02)
[2017-08-14 21:08] LABS: BEDSIDE GLUCOSE 234 MG/DL (83-110)
[2017-08-14] MEDS: BETAMETHASONE VAL 0.1% OINT 15 GM TOP (21:46)
[2017-08-15] MEDS: IPRATROPIUM 0.5MG/ALBUTEROL 2.5MG INH SOL UD 3ML (DUONEB)(J7620) NEB ×5 (02:44→21:16)
[2017-08-15] MEDS: PERCOCET 5MG/325MG TAB PO ×2 (02:47→18:40)
[2017-08-15] MEDS: LEVEMIR (INSULIN DETEMIR) 1 UNITS/0.01ML SC ×4 (05:48→22:32)
[2017-08-15] MEDS: HEPARIN SOD (PORCINE) 5000 UNITS/ML VIAL SC ×3 (05:54→21:21)
[2017-08-15 06:27] LABS: BASO # 0.1 10^3/uL (0.0-0.2); BASO % 0.9 % (0.0-1.0); EOS # 0.1 10^3/uL (0.0-0.50); EOS % 1.9 % (0.0-3.0); HEMATOCRIT 28.2 % (36.0-47.0); IMMATURE GRANULOCYTE % 1.6 % (0-3.0); LYMPH # 2.3 10^3/uL (1.5-4.5); LYMPH % 34.2 % (24.0-44.0); MEAN CORPUSCULAR HEMOGLOBIN 21.2 pg (27.0-33.0); MEAN CORPUSCULAR HGB CONC 28.4 g/dl (32.0-36.5); MEAN CORPUSCULAR VOLUME 74.8 fl (80.0-96.0); MONO # 0.6 10^3/uL (0.0-0.8); MONO % 9.2 % (0.0-5.0); NEUTROPHILS # 3.6 10^3/uL (1.8-7.7); NEUTROPHILS % 52.2 % (36.0-66.0); RED BLOOD COUNT 3.77 10^6/uL (4.00-5.40); RED CELL DISTRIBUTION WIDTH 19.9 % (11.5-14.5); WHITE BLOOD COUNT 6.8 10^3/uL (4.0-10.0)
[2017-08-15 06:31] LABS: PLATELET COUNT, AUTOMATED 254 10^3/uL (150-450); POS COUNT POS FLAG
[2017-08-15 06:35] LABS: ANION GAP 6 MEQ/L (8-16); BLOOD UREA NITROGEN 27 MG/DL (7-18); CALCIUM LEVEL 8.8 MG/DL (8.8-10.2); CARBON DIOXIDE LEVEL 30 MEQ/L (21-32); CHLORIDE LEVEL 105 MEQ/L (98-107); CREATININE FOR GFR 1.44 MG/DL (0.55-1.30); GLUCOSE, FASTING 167 MG/DL (70-100); MAGNESIUM LEVEL 2.8 MG/DL (1.8-2.4); POTASSIUM SERUM 4.2 MEQ/L (3.5-5.1); SODIUM LEVEL 141 MEQ/L (136-145)
[2017-08-15] MEDS ORDERED: IRON SUCROSE 100MG 5ML VIAL (J1756 PER 1MG) IV (08:00)
[2017-08-15] MEDS: SUCRALFATE 1 GM TAB PO ×2 (08:37→21:22)
[2017-08-15] MEDS: PREGABALIN 75 MG CAP(LYRICA) PO ×2 (08:38→21:21)
[2017-08-15] MEDS: DOCUSATE SODIUM 100 MG CAP PO ×2 (08:38→21:21)
[2017-08-15] MEDS: OMEPRAZOLE 20 MG CAP PO ×2 (08:38→21:22)
[2017-08-15] MEDS: COLCHICINE 0.6 MG TAB PO (08:38)
[2017-08-15] MEDS: ALLOPURINOL 300 MG TAB PO (08:38)
[2017-08-15] MEDS: SPIRONOLACTONE 25 MG TAB PO ×2 (08:38→21:22)
[2017-08-15] MEDS: levETIRAcetam 250MG TABLET (KEPPRA) PO ×2 (08:38→21:22)
[2017-08-15] MEDS: ONDANSETRON 4 MG TAB (S0181) PO ×4 (08:38→21:21)
[2017-08-15] MEDS: METOCLOPRAMIDE 10 MG TAB PO ×3 (08:38→21:22)
[2017-08-15] MEDS: SENOKOT S TAB PO ×2 (08:38→21:21)
[2017-08-15] MEDS: REPAGLINIDE 0.5 MG PO ×3 (08:38→17:22)
[2017-08-15] MEDS: IRON SUCROSE 400 MG in NS 250 ML IV (08:39)
[2017-08-15] MEDS: HumaLOG INSULIN (NovoLOG) PER UNIT SC ×4 (08:39→21:22)
[2017-08-15] MEDS: BISOPROLOL FUM 2.5 MG PER 1/2TAB PO (08:40)
[2017-08-15] MEDS: LACTULOSE 20 GM/30 ML SYRUP UD PO ×2 (08:40→21:20)
[2017-08-15] MEDS: ANALGESIC BALM CRM 120 GM TOP ×3 (08:41→20:58)
[2017-08-15] MEDS: SODIUM CHLORIDE 0.9% INJ 10 ML SYR IV (08:41)
[2017-08-15] MEDS: LACTIC ACID 12% LOTION 225 GM BTL TOP ×2 (08:41→21:22)
[2017-08-15] MEDS: NYSTATIN 100,000 UNITS/GM TOPICAL PWD 15 GM TOP (08:42)
[2017-08-15] MEDS: BENZONATATE 100 MG CAP PO ×2 (14:32→21:28)
[2017-08-15] MEDS: rOPINIRole 1MG TAB PO ×2 (14:32→21:21)
[2017-08-15 20:43] LABS: BEDSIDE GLUCOSE 275 MG/DL (83-110)
[2017-08-15 20:44] LABS: BEDSIDE GLUCOSE 168 MG/DL (83-110)
[2017-08-15 20:44] LABS: BEDSIDE GLUCOSE 204 MG/DL (83-110)
[2017-08-15 20:44] LABS: BEDSIDE GLUCOSE 266 MG/DL (83-110)
[2017-08-15 20:44] LABS: BEDSIDE GLUCOSE 198 MG/DL (83-110)
[2017-08-15] MEDS: BETAMETHASONE VAL 0.1% OINT 15 GM TOP (21:23)
[2017-08-16] MEDS: PERCOCET 5MG/325MG TAB PO ×4 (00:14→22:31)
[2017-08-16] MEDS: IPRATROPIUM 0.5MG/ALBUTEROL 2.5MG INH SOL UD 3ML (DUONEB)(J7620) NEB ×5 (02:35→20:37)
[2017-08-16] MEDS: HEPARIN SOD (PORCINE) 5000 UNITS/ML VIAL SC ×3 (05:31→21:34)
[2017-08-16] MEDS: LEVEMIR (INSULIN DETEMIR) 1 UNITS/0.01ML SC ×3 (05:31→21:33)
[2017-08-16 06:05] LABS: BASO # 0.1 10^3/uL (0.0-0.2); BASO % 0.9 % (0.0-1.0); EOS # 0.2 10^3/uL (0.0-0.50); EOS % 2.9 % (0.0-3.0); HEMATOCRIT 30.5 % (36.0-47.0); HEMOGLOBIN 8.3 g/dl (12.0-15.5); IMMATURE GRANULOCYTE % 3.1 % (0-3.0); LYMPH # 2.2 10^3/uL (1.5-4.5); LYMPH % 31.7 % (24.0-44.0); MEAN CORPUSCULAR HEMOGLOBIN 20.4 pg (27.0-33.0); MEAN CORPUSCULAR HGB CONC 27.2 g/dl (32.0-36.5); MEAN CORPUSCULAR VOLUME 75.1 fl (80.0-96.0); MONO # 0.6 10^3/uL (0.0-0.8); MONO % 8.5 % (0.0-5.0); NEUTROPHILS # 3.6 10^3/uL (1.8-7.7); NEUTROPHILS % 52.9 % (36.0-66.0); PLATELET COUNT, AUTOMATED 302 10^3/uL (150-450); RED BLOOD COUNT 4.06 10^6/uL (4.00-5.40); WHITE BLOOD COUNT 6.8 10^3/uL (4.0-10.0)
[2017-08-16 06:20] LABS: ANION GAP 4 MEQ/L (8-16); BLOOD UREA NITROGEN 23 MG/DL (7-18); CALCIUM LEVEL 8.6 MG/DL (8.8-10.2); CARBON DIOXIDE LEVEL 30 MEQ/L (21-32); CHLORIDE LEVEL 107 MEQ/L (98-107); CREATININE FOR GFR 1.36 MG/DL (0.55-1.30); GLOMERULAR FILTRATION RATE 40.6 (>39); GLUCOSE, FASTING 220 MG/DL (70-100); MAGNESIUM LEVEL 2.8 MG/DL (1.8-2.4); POTASSIUM SERUM 4.5 MEQ/L (3.5-5.1); SODIUM LEVEL 141 MEQ/L (136-145)
[2017-08-16] MEDS: LACTULOSE 20 GM/30 ML SYRUP UD PO ×3 (08:09→21:34)
[2017-08-16] MEDS: BENZONATATE 100 MG CAP PO ×3 (08:11→22:30)
[2017-08-16] MEDS: ALLOPURINOL 300 MG TAB PO (08:11)
[2017-08-16] MEDS: DOCUSATE SODIUM 100 MG CAP PO ×2 (08:11→21:34)
[2017-08-16] MEDS: METOCLOPRAMIDE 10 MG TAB PO ×3 (08:11→21:35)
[2017-08-16] MEDS: ONDANSETRON 4 MG TAB (S0181) PO ×4 (08:11→21:35)
[2017-08-16] MEDS: SENOKOT S TAB PO ×2 (08:15→21:35)
[2017-08-16] MEDS: BISOPROLOL FUM 2.5 MG PER 1/2TAB PO (08:15)
[2017-08-16] MEDS: OMEPRAZOLE 20 MG CAP PO ×2 (08:15→21:35)
[2017-08-16] MEDS: SPIRONOLACTONE 25 MG TAB PO ×2 (08:16→21:35)
[2017-08-16] MEDS: levETIRAcetam 250MG TABLET (KEPPRA) PO ×2 (08:16→21:35)
[2017-08-16] MEDS: COLCHICINE 0.6 MG TAB PO (08:16)
[2017-08-16] MEDS: REPAGLINIDE 0.5 MG PO ×3 (08:16→17:38)
[2017-08-16] MEDS: SUCRALFATE 1 GM TAB PO ×2 (08:16→22:30)
[2017-08-16] MEDS: PREGABALIN 75 MG CAP(LYRICA) PO ×2 (08:16→21:35)
[2017-08-16] MEDS: SODIUM CHLORIDE 0.9% INJ 10 ML SYR IV (08:17)
[2017-08-16] MEDS: HumaLOG INSULIN (NovoLOG) PER UNIT SC ×4 (08:17→21:00)
[2017-08-16] MEDS: LACTIC ACID 12% LOTION 225 GM BTL TOP ×2 (08:18→21:34)
[2017-08-16] MEDS: ANALGESIC BALM CRM 120 GM TOP ×3 (08:18→21:00)
[2017-08-16] MEDS: NYSTATIN 100,000 UNITS/GM TOPICAL PWD 15 GM TOP (08:18)
[2017-08-16] MEDS: rOPINIRole 1MG TAB PO ×2 (14:50→21:34)
[2017-08-16] MEDS: TORSEMIDE 100 MG TAB PO (17:37)
[2017-08-16 19:40] LABS: BEDSIDE GLUCOSE 245 MG/DL (83-110)
[2017-08-16 19:40] LABS: BEDSIDE GLUCOSE 221 MG/DL (83-110)
[2017-08-16 19:40] LABS: BEDSIDE GLUCOSE 194 MG/DL (83-110)
[2017-08-16 19:40] LABS: BEDSIDE GLUCOSE 261 MG/DL (83-110)
[2017-08-16 19:40] LABS: BEDSIDE GLUCOSE 213 MG/DL (83-110)
[2017-08-16 20:58] LABS: BEDSIDE GLUCOSE 172 MG/DL (83-110)
[2017-08-16] MEDS: BETAMETHASONE VAL 0.1% OINT 15 GM TOP (21:36)
[2017-08-17] MEDS: IPRATROPIUM 0.5MG/ALBUTEROL 2.5MG INH SOL UD 3ML (DUONEB)(J7620) NEB ×4 (01:07→20:44)
[2017-08-17 05:15] LABS: BEDSIDE GLUCOSE 213 MG/DL (83-110)
[2017-08-17] MEDS: HEPARIN SOD (PORCINE) 5000 UNITS/ML VIAL SC ×3 (06:18→21:48)
[2017-08-17] MEDS: LEVEMIR (INSULIN DETEMIR) 1 UNITS/0.01ML SC ×3 (06:18→21:45)
[2017-08-17] MEDS: PERCOCET 5MG/325MG TAB PO ×4 (06:19→23:12)
[2017-08-17 06:24] LABS: BASO # 0.1 10^3/uL (0.0-0.2); BASO % 0.7 % (0.0-1.0); EOS # 0.3 10^3/uL (0.0-0.50); EOS % 3.5 % (0.0-3.0); HEMATOCRIT 31.5 % (36.0-47.0); HEMOGLOBIN 8.8 g/dl (12.0-15.5); IMMATURE GRANULOCYTE % 3.6 % (0-3.0); MEAN CORPUSCULAR HEMOGLOBIN 20.8 pg (27.0-33.0); MEAN CORPUSCULAR HGB CONC 27.9 g/dl (32.0-36.5); MEAN CORPUSCULAR VOLUME 74.3 fl (80.0-96.0); MONO # 0.8 10^3/uL (0.0-0.8); MONO % 9.3 % (0.0-5.0); NEUTROPHILS # 4.8 10^3/uL (1.8-7.7); NEUTROPHILS % 58.9 % (36.0-66.0); PLATELET COUNT, AUTOMATED 298 10^3/uL (150-450); RED BLOOD COUNT 4.24 10^6/uL (4.00-5.40); RED CELL DISTRIBUTION WIDTH 20.6 % (11.5-14.5); WHITE BLOOD COUNT 8.2 10^3/uL (4.0-10.0)
[2017-08-17 06:43] LABS: ANION GAP 6 MEQ/L (8-16); BLOOD UREA NITROGEN 23 MG/DL (7-18); CALCIUM LEVEL 8.8 MG/DL (8.8-10.2); CARBON DIOXIDE LEVEL 33 MEQ/L (21-32); CHLORIDE LEVEL 101 MEQ/L (98-107); CREATININE FOR GFR 1.43 MG/DL (0.55-1.30); GLOMERULAR FILTRATION RATE 38.3 (>39); GLUCOSE, FASTING 196 MG/DL (70-100); MAGNESIUM LEVEL 2.3 MG/DL (1.8-2.4); POTASSIUM SERUM 3.9 MEQ/L (3.5-5.1); SODIUM LEVEL 140 MEQ/L (136-145)
[2017-08-17] MEDS: HumaLOG INSULIN (NovoLOG) PER UNIT SC ×4 (08:37→21:46)
[2017-08-17] MEDS: levETIRAcetam 250MG TABLET (KEPPRA) PO ×2 (08:38→21:49)
[2017-08-17] MEDS: REPAGLINIDE 0.5 MG PO ×3 (08:38→17:26)
[2017-08-17] MEDS: PREGABALIN 75 MG CAP(LYRICA) PO ×2 (08:38→21:48)
[2017-08-17] MEDS: LACTULOSE 20 GM/30 ML SYRUP UD PO ×2 (08:38→21:47)
[2017-08-17] MEDS: ALLOPURINOL 300 MG TAB PO (08:39)
[2017-08-17] MEDS: SCOPOLAMINE 1MG TRANSDERMAL PATCH TD (08:39)
[2017-08-17] MEDS: SENOKOT S TAB PO ×2 (08:39→21:49)
[2017-08-17] MEDS: TORSEMIDE 100 MG TAB PO (08:39)
[2017-08-17] MEDS: METOCLOPRAMIDE 10 MG TAB PO ×3 (08:39→21:49)
[2017-08-17] MEDS: ONDANSETRON 4 MG TAB (S0181) PO ×4 (08:39→21:49)
[2017-08-17] MEDS: NYSTATIN 100,000 UNITS/GM TOPICAL PWD 15 GM TOP (08:40)
[2017-08-17] MEDS: LACTIC ACID 12% LOTION 225 GM BTL TOP ×2 (08:40→21:47)
[2017-08-17] MEDS: OMEPRAZOLE 20 MG CAP PO ×2 (08:40→21:48)
[2017-08-17] MEDS: SPIRONOLACTONE 25 MG TAB PO ×2 (08:40→21:49)
[2017-08-17] MEDS: DOCUSATE SODIUM 100 MG CAP PO ×2 (08:40→21:48)
[2017-08-17] MEDS: SUCRALFATE 1 GM TAB PO ×2 (08:40→21:49)
[2017-08-17] MEDS: BISOPROLOL FUM 2.5 MG PER 1/2TAB PO (08:40)
[2017-08-17] MEDS: SODIUM CHLORIDE 0.9% INJ 10 ML SYR IV (08:41)
[2017-08-17] MEDS: ANALGESIC BALM CRM 120 GM TOP ×3 (08:41→21:00)
[2017-08-17] MEDS: COLCHICINE 0.6 MG TAB PO (09:51)
[2017-08-17 12:15] LABS: BEDSIDE GLUCOSE 308 MG/DL (83-110)
[2017-08-17] MEDS: rOPINIRole 1MG TAB PO ×2 (14:08→21:48)
[2017-08-17] MEDS: FUROSEMIDE 100 MG/10 ML VIAL (J1940) IV (15:08)
[2017-08-17 19:36] LABS: BEDSIDE GLUCOSE 262 MG/DL (83-110)
[2017-08-17 19:36] LABS: BEDSIDE GLUCOSE 301 MG/DL (83-110)
[2017-08-17 19:59] LABS: BEDSIDE GLUCOSE 385 MG/DL (83-110)
[2017-08-17] MEDS: BETAMETHASONE VAL 0.1% OINT 15 GM TOP (21:50)
[2017-08-17] MEDS: BENZONATATE 100 MG CAP PO (23:09)
[2017-08-18] MEDS: IPRATROPIUM 0.5MG/ALBUTEROL 2.5MG INH SOL UD 3ML (DUONEB)(J7620) NEB ×3 (02:00→14:38)
[2017-08-18 06:16] LABS: BEDSIDE GLUCOSE 300 MG/DL (83-110)
[2017-08-18] MEDS: HEPARIN SOD (PORCINE) 5000 UNITS/ML VIAL SC ×2 (06:21→14:13)
[2017-08-18] MEDS: LEVEMIR (INSULIN DETEMIR) 1 UNITS/0.01ML SC ×2 (06:21→14:13)
[2017-08-18 06:47] LABS: HEMATOCRIT 30.7 % (36.0-47.0); HEMOGLOBIN 8.6 g/dl (12.0-15.5); MEAN CORPUSCULAR HEMOGLOBIN 21.2 pg (27.0-33.0); MEAN CORPUSCULAR VOLUME 75.6 fl (80.0-96.0); PLATELET COUNT, AUTOMATED 290 10^3/uL (150-450); RED BLOOD COUNT 4.06 10^6/uL (4.00-5.40); RED CELL DISTRIBUTION WIDTH 20.8 % (11.5-14.5); WHITE BLOOD COUNT 7.9 10^3/uL (4.0-10.0)
[2017-08-18 06:48] LABS: ADD MANUAL DIFFER YES; DIFF SLIDE NUMBER 11; POS COUNT POS FLAG; POSITIVE MORPH POS FLAG
[2017-08-18 07:07] LABS: ANION GAP 7 MEQ/L (8-16); BLOOD UREA NITROGEN 24 MG/DL (7-18); CALCIUM LEVEL 8.4 MG/DL (8.8-10.2); CARBON DIOXIDE LEVEL 35 MEQ/L (21-32); CHLORIDE LEVEL 97 MEQ/L (98-107); CREATININE FOR GFR 1.65 MG/DL (0.55-1.30); GLOMERULAR FILTRATION RATE 32.5 (>39); GLUCOSE, FASTING 285 MG/DL (70-100); MAGNESIUM LEVEL 2.2 MG/DL (1.8-2.4); POTASSIUM SERUM 3.7 MEQ/L (3.5-5.1); SODIUM LEVEL 139 MEQ/L (136-145)
[2017-08-18 07:11] LABS: ANISOCYTOSIS 2+; EOSINOPHILS 5 % (0-5); LYMPHOCYTES 28 % (16-52); MONOCYTES 10 % (0-8); NEUTROPHILS 57 % (35-75)
[2017-08-18 07:12] LABS: HYPOCHROMASIA 1+; PLATELET ESTIMATE NORMAL (NORMAL)
[2017-08-18] MEDS: SODIUM CHLORIDE 0.9% INJ 10 ML SYR IV (08:02)
[2017-08-18] MEDS: HumaLOG INSULIN (NovoLOG) PER UNIT SC ×2 (08:02→12:14)
[2017-08-18] MEDS: REPAGLINIDE 0.5 MG PO ×2 (08:03→12:13)
[2017-08-18] MEDS: BISOPROLOL FUM 2.5 MG PER 1/2TAB PO (08:03)
[2017-08-18] MEDS: levETIRAcetam 250MG TABLET (KEPPRA) PO (08:03)
[2017-08-18] MEDS: SPIRONOLACTONE 25 MG TAB PO (08:03)
[2017-08-18] MEDS: COLCHICINE 0.6 MG TAB PO (08:03)
[2017-08-18] MEDS: PREGABALIN 75 MG CAP(LYRICA) PO (08:03)
[2017-08-18] MEDS: SUCRALFATE 1 GM TAB PO (08:03)
[2017-08-18] MEDS: OMEPRAZOLE 20 MG CAP PO (08:03)
[2017-08-18] MEDS: METOCLOPRAMIDE 10 MG TAB PO ×2 (08:03→16:07)
[2017-08-18] MEDS: ALLOPURINOL 300 MG TAB PO (08:04)
[2017-08-18] MEDS: DOCUSATE SODIUM 100 MG CAP PO (08:04)
[2017-08-18] MEDS: SENOKOT S TAB PO (08:04)
[2017-08-18] MEDS: LACTULOSE 20 GM/30 ML SYRUP UD PO (08:04)
[2017-08-18] MEDS: ONDANSETRON 4 MG TAB (S0181) PO ×3 (08:04→16:07)
[2017-08-18] MEDS: NYSTATIN 100,000 UNITS/GM TOPICAL PWD 15 GM TOP (08:05)
[2017-08-18] MEDS: LACTIC ACID 12% LOTION 225 GM BTL TOP (08:05)
[2017-08-18] MEDS: ANALGESIC BALM CRM 120 GM TOP ×2 (08:06→15:43)
[2017-08-18] MEDS: PERCOCET 5MG/325MG TAB PO ×3 (08:09→16:07)
[2017-08-18] MEDS: BENZONATATE 100 MG CAP PO (10:39)
[2017-08-18] MEDS: TORSEMIDE 100 MG TAB PO ×2 (10:39→16:06)
[2017-08-18 12:11] LABS: BEDSIDE GLUCOSE 310 MG/DL (83-110)
[2017-08-18 13:16] LABS: ANION GAP 9 MEQ/L (8-16); BLOOD UREA NITROGEN 26 MG/DL (7-18); CALCIUM LEVEL 8.2 MG/DL (8.8-10.2); CARBON DIOXIDE LEVEL 31 MEQ/L (21-32); CHLORIDE LEVEL 98 MEQ/L (98-107); CREATININE FOR GFR 1.59 MG/DL (0.55-1.30); GLOMERULAR FILTRATION RATE 33.9 (>39); GLUCOSE, FASTING 304 MG/DL (70-100); POTASSIUM SERUM 4.3 MEQ/L (3.5-5.1); SODIUM LEVEL 138 MEQ/L (136-145)
[2017-08-18] MEDS: rOPINIRole 1MG TAB PO (14:13)
[2017-08-19 02:46] LABS: BEDSIDE GLUCOSE 363 MG/DL (83-110)
== END 2017-08-18 16:37 | disposition home health service (06) | DRG 202 ==
LOC: M ED 21:34 → M MSPAV 08-14 15:30 → M ED INP 08-05 00:47 → M ICU 08-11 20:00 → M MSPAV 08-05 03:45
DX: J20.9 Acute bronchitis, unspecified (principal); I50.32 Chronic diastolic (congestive) heart failure; E66.2 Morbid (severe) obesity with alveolar hypoventilation; N39.0 Urinary tract infection, site not specified; E87.2 Acidosis; J96.11 Chronic respiratory failure with hypoxia; I13.0 Hypertensive heart and chronic kidney disease with heart failure and stage 1 through stage 4 chronic kidney disease, or unspecified chronic kidney disease; J45.901 Unspecified asthma with (acute) exacerbation; J98.6 Disorders of diaphragm; B96.29 Other Escherichia coli [E. coli] as the cause of diseases classified elsewhere; N18.3 Chronic kidney disease, stage 3 (moderate); E11.9 Type 2 diabetes mellitus without complications; G47.33 Obstructive sleep apnea (adult) (pediatric); K21.9 Gastro-esophageal reflux disease without esophagitis; M10.9 Gout, unspecified; G40.909 Epilepsy, unspecified, not intractable, without status epilepticus; G43.909 Migraine, unspecified, not intractable, without status migrainosus; J45.909 Unspecified asthma, uncomplicated; K58.9 Irritable bowel syndrome, unspecified; Z86.73 Personal history of transient ischemic attack (TIA), and cerebral infarction without residual deficits; M79.7 Fibromyalgia; M54.2 Cervicalgia; D50.9 Iron deficiency anemia, unspecified; G25.81 Restless legs syndrome; Z79.899 Other long term (current) drug therapy; Z79.4 Long term (current) use of insulin; Z88.8 Allergy status to other drugs, medicaments and biological substances; Z88.2 Allergy status to sulfonamides; Z88.0 Allergy status to penicillin; E55.9 Vitamin D deficiency, unspecified; Z91.040 Latex allergy status

== ENCOUNTER → 2017-08-24 | Outpatient (CLI) | payer MEDICARE, MEDICAID | LOC: M PAIN 14:45 | DX: M79.1 Myalgia (principal); M47.812 Spondylosis without myelopathy or radiculopathy, cervical region; E11.9 Type 2 diabetes mellitus without complications; J45.909 Unspecified asthma, uncomplicated; I10 Essential (primary) hypertension; G43.909 Migraine, unspecified, not intractable, without status migrainosus; K21.9 Gastro-esophageal reflux disease without esophagitis; R56.9 Unspecified convulsions; M19.90 Unspecified osteoarthritis, unspecified site; Z79.4 Long term (current) use of insulin; Z79.899 Other long term (current) drug therapy; Z88.0 Allergy status to penicillin; Z88.1 Allergy status to other antibiotic agents; Z88.2 Allergy status to sulfonamides; Z88.5 Allergy status to narcotic agent; Z88.8 Allergy status to other drugs, medicaments and biological substances; Z96.641 Presence of right artificial hip joint; Z86.718 Personal history of other venous thrombosis and embolism; Z86.19 Personal history of other infectious and parasitic diseases; Z87.448 Personal history of other diseases of urinary system; Z86.79 Personal history of other diseases of the circulatory system | CPT/HCPCS: G0463 ==

== ENCOUNTER → 2017-09-01 | Outpatient (CLI) | payer MEDICARE, MEDICAID | LOC: M PAIN 14:00 | DX: M54.2 Cervicalgia (principal); M79.1 Myalgia; I12.9 Hypertensive chronic kidney disease with stage 1 through stage 4 chronic kidney disease, or unspecified chronic kidney disease; K21.9 Gastro-esophageal reflux disease without esophagitis; G43.909 Migraine, unspecified, not intractable, without status migrainosus; R56.9 Unspecified convulsions; E11.22 Type 2 diabetes mellitus with diabetic chronic kidney disease; N18.3 Chronic kidney disease, stage 3 (moderate); J45.909 Unspecified asthma, uncomplicated; M19.90 Unspecified osteoarthritis, unspecified site; Z79.4 Long term (current) use of insulin; Z79.899 Other long term (current) drug therapy; Z88.0 Allergy status to penicillin; Z88.1 Allergy status to other antibiotic agents; Z88.2 Allergy status to sulfonamides; Z88.5 Allergy status to narcotic agent; Z88.8 Allergy status to other drugs, medicaments and biological substances; Z86.718 Personal history of other venous thrombosis and embolism; Z86.19 Personal history of other infectious and parasitic diseases | CPT/HCPCS: G0463 ==

== ENCOUNTER → 2017-09-12 | Outpatient (REF) | payer MEDICARE, MEDICAID | LOC: M LAB REF 17:14 | DX: R53.1 Weakness (principal); R53.83 Other fatigue | CPT/HCPCS: 87088; 87186 ==

== ENCOUNTER → 2017-10-07 | Outpatient (CLI) | payer MEDICARE, MEDICAID ==
[~2017-10-07] MED LIST changes: +LIDOCAINE 1% SDV INJ 30 ML VIAL As Ordered; -TRIAMCINOLONE ACETONIDE SUSP 40 MG/ML VIAL (J3301) As Ordered
== END ==
LOC: M PAIN 14:15
DX: M54.2 Cervicalgia (principal); M79.1 Myalgia; G89.29 Other chronic pain; E11.9 Type 2 diabetes mellitus without complications; I10 Essential (primary) hypertension; K21.9 Gastro-esophageal reflux disease without esophagitis; G43.909 Migraine, unspecified, not intractable, without status migrainosus; R56.9 Unspecified convulsions; J45.909 Unspecified asthma, uncomplicated; N28.9 Disorder of kidney and ureter, unspecified; M19.90 Unspecified osteoarthritis, unspecified site; Z79.4 Long term (current) use of insulin; Z79.82 Long term (current) use of aspirin; Z79.899 Other long term (current) drug therapy; Z88.0 Allergy status to penicillin; Z88.1 Allergy status to other antibiotic agents; Z88.2 Allergy status to sulfonamides; Z88.5 Allergy status to narcotic agent; Z88.8 Allergy status to other drugs, medicaments and biological substances; Z86.79 Personal history of other diseases of the circulatory system; Z86.19 Personal history of other infectious and parasitic diseases; Z86.718 Personal history of other venous thrombosis and embolism; Z96.641 Presence of right artificial hip joint
CPT/HCPCS: G0463

== ENCOUNTER → 2017-10-12 | Outpatient (REF) | payer MEDICARE, MEDICAID ==
[2017-10-12 20:35] LABS: BASO # 0.1 10^3/uL (0.0-0.2); BASO % 1.1 % (0.0-1.0); EOS # 0.2 10^3/uL (0.0-0.50); EOS % 3.8 % (0.0-3.0); HEMATOCRIT 34.5 % (36.0-47.0); HEMOGLOBIN 10.1 g/dl (12.0-15.5); IMMATURE GRANULOCYTE % 0.5 % (0-3.0); LYMPH # 2.1 10^3/uL (1.5-4.5); LYMPH % 37.8 % (24.0-44.0); MEAN CORPUSCULAR HEMOGLOBIN 22.9 pg (27.0-33.0); MEAN CORPUSCULAR HGB CONC 29.3 g/dl (32.0-36.5); MEAN CORPUSCULAR VOLUME 78.2 fl (80.0-96.0); MONO # 0.6 10^3/uL (0.0-0.8); MONO % 9.9 % (0.0-5.0); NEUTROPHILS # 2.6 10^3/uL (1.8-7.7); NEUTROPHILS % 46.9 % (36.0-66.0); PLATELET COUNT, AUTOMATED 200 10^3/uL (150-450); RED BLOOD COUNT 4.41 10^6/uL (4.00-5.40); RED CELL DISTRIBUTION WIDTH 19.5 % (11.5-14.5); WHITE BLOOD COUNT 5.6 10^3/uL (4.0-10.0)
[2017-10-12 20:56] LABS: C REACTIVE PROTEIN QUANTITATIV 1.23 MG/DL (0.00-0.30)
[2017-10-12 21:01] LABS: ERYTHROCYTE SEDIMENTATION RATE 17 mm/hr (0-30)
== END ==
LOC: M LAB REF 19:52
DX: M25.551 Pain in right hip (principal)
CPT/HCPCS: 86140

== ENCOUNTER → 2017-10-19 | Outpatient (REF) | payer MEDICARE, MEDICAID | LOC: M LAB REF 19:20 | DX: N39.0 Urinary tract infection, site not specified (principal) | CPT/HCPCS: 87186 ==

== ENCOUNTER → 2017-10-21 | Outpatient (CLI) | payer MEDICARE, MEDICAID | LOC: M RAD 10:27 | DX: M25.551 Pain in right hip (principal) | CPT/HCPCS: 78315 ==

== ENCOUNTER → 2017-10-25 | Outpatient (REF) | payer MEDICARE, MEDICAID | LOC: M LAB REF 19:15 | DX: R30.0 Dysuria (principal) | CPT/HCPCS: 87186 ==

== ENCOUNTER 2017-10-27 14:11 | Emergency (ER) | payer MEDICARE, MEDICAID ==
[2017-10-27 16:36] LABS: BASO # 0.1 10^3/uL (0.0-0.2); BASO % 1.2 % (0.0-1.0); EOS # 0.3 10^3/uL (0.0-0.50); EOS % 4.6 % (0.0-3.0); HEMATOCRIT 35.5 % (36.0-47.0); HEMOGLOBIN 10.3 g/dl (12.0-15.5); IMMATURE GRANULOCYTE % 0.5 % (0-3.0); LYMPH # 1.9 10^3/uL (1.5-4.5); LYMPH % 31.4 % (24.0-44.0); MEAN CORPUSCULAR HEMOGLOBIN 22.3 pg (27.0-33.0); MEAN CORPUSCULAR VOLUME 76.8 fl (80.0-96.0); MONO # 0.8 10^3/uL (0.0-0.8); NEUTROPHILS # 2.9 10^3/uL (1.8-7.7); NEUTROPHILS % 48.3 % (36.0-66.0); PLATELET COUNT, AUTOMATED 228 10^3/uL (150-450); RED BLOOD COUNT 4.62 10^6/uL (4.00-5.40); RED CELL DISTRIBUTION WIDTH 19.1 % (11.5-14.5); WHITE BLOOD COUNT 5.9 10^3/uL (4.0-10.0)
[2017-10-27] MEDS: NS 1,000 ML IV (17:00)
[2017-10-27] MEDS: MORPHINE 4 MG/ML 1ML VIAL/SYRINGE (J2270) IV (17:00)
[2017-10-27] MEDS: ONDANSETRON 4MG/2ML VIAL (J2405) IV (17:00)
[2017-10-27 17:05] LABS: ALBUMIN 3.3 GM/DL (3.2-5.2); ALKALINE PHOSPHATASE 100 U/L (45-117); ALT/SGPT 40 U/L (12-78); AST/SGOT 40 U/L (7-37); BILIRUBIN,DIRECT 0.2 MG/DL (0.0-0.2); BILIRUBIN,TOTAL 0.3 MG/DL (0.2-1.0); BLOOD UREA NITROGEN 42 MG/DL (7-18); CARBON DIOXIDE LEVEL 32 MEQ/L (21-32); CHLORIDE LEVEL 100 MEQ/L (98-107); CK-MB VALUE MASS < 1.0 NG/ML (<3.6); CPK CREATINE PHOSPHOKINASE 38 U/L (26-192); GLUCOSE, FASTING 234 MG/DL (70-100); LIPASE 177 U/L (73-393); MB/CK RELATIVE INDEX 2.63 (< OR =4); POTASSIUM SERUM 3.8 MEQ/L (3.5-5.1); SODIUM LEVEL 139 MEQ/L (136-145); TOTAL PROTEIN 6.7 GM/DL (6.4-8.2); TROPONIN I < 0.02 NG/ML (< 0.10)
[2017-10-27 17:11] LABS: ALBUMIN/GLOBULIN RATIO 0.97 (1.00-1.93); ANION GAP 7 MEQ/L (8-16)
[2017-10-27] MEDS: NS 500 ML IV (17:30)
[2017-10-28] MEDS ORDERED: SODIUM CHLORIDE 0.9% INJ 10 ML SYR IV (09:00)
== END 2017-10-27 19:00 | disposition home or self-care (01) ==
LOC: M ED 14:11
DX: E86.0 Dehydration (principal); R53.1 Weakness; R94.31 Abnormal electrocardiogram [ECG] [EKG]; I50.9 Heart failure, unspecified; E11.9 Type 2 diabetes mellitus without complications; I11.0 Hypertensive heart disease with heart failure; J45.909 Unspecified asthma, uncomplicated; J44.9 Chronic obstructive pulmonary disease, unspecified; Z87.440 Personal history of urinary (tract) infections; Z86.69 Personal history of other diseases of the nervous system and sense organs; Z87.718 Personal history of other specified (corrected) congenital malformations of genitourinary system; Z98.890 Other specified postprocedural states; Z88.1 Allergy status to other antibiotic agents; Z88.8 Allergy status to other drugs, medicaments and biological substances; Z91.040 Latex allergy status; Z88.0 Allergy status to penicillin; Z88.2 Allergy status to sulfonamides; Z79.4 Long term (current) use of insulin; Z79.899 Other long term (current) drug therapy; Z79.890 Hormone replacement therapy
CPT/HCPCS: J2270

== ENCOUNTER → 2017-11-17 | Outpatient (REF) | payer MEDICARE, MEDICAID ==
[2017-11-17 20:06] LABS: HEMOGLOBIN 10.9 g/dl (12.0-15.5); MEAN CORPUSCULAR HEMOGLOBIN 22.6 pg (27.0-33.0); MEAN CORPUSCULAR HGB CONC 27.9 g/dl (32.0-36.5); MEAN CORPUSCULAR VOLUME 80.9 fl (80.0-96.0); PLATELET COUNT, AUTOMATED 262 10^3/uL (150-450); RED BLOOD COUNT 4.82 10^6/uL (4.00-5.40); RED CELL DISTRIBUTION WIDTH 18.7 % (11.5-14.5); WHITE BLOOD COUNT 6.8 10^3/uL (4.0-10.0)
[2017-11-17 20:07] LABS: ALBUMIN 3.5 GM/DL (3.2-5.2); ALBUMIN/GLOBULIN RATIO 1.03 (1.00-1.93); ALKALINE PHOSPHATASE 111 U/L (45-117); ALT/SGPT 44 U/L (12-78); ANION GAP 12 MEQ/L (8-16); AST/SGOT 54 U/L (7-37); BILIRUBIN,TOTAL 0.4 MG/DL (0.2-1.0); BLOOD UREA NITROGEN 23 MG/DL (7-18); CALCIUM LEVEL 8.8 MG/DL (8.8-10.2); CARBON DIOXIDE LEVEL 30 MEQ/L (21-32); CHLORIDE LEVEL 98 MEQ/L (98-107); CREATININE FOR GFR 1.41 MG/DL (0.55-1.30); GLOMERULAR FILTRATION RATE 38.9 (>39); GLUCOSE, FASTING 236 MG/DL (70-100); POTASSIUM SERUM 3.6 MEQ/L (3.5-5.1); SODIUM LEVEL 140 MEQ/L (136-145); TOTAL PROTEIN 6.9 GM/DL (6.4-8.2)
[2017-11-17 20:17] LABS: ESTIMATED AVERAGE GLUCOSE 232 MG/DL (60-110); HEMOGLOBIN A1c 9.7 %
== END ==
LOC: M LAB REF 19:20
DX: N18.4 Chronic kidney disease, stage 4 (severe) (principal); E11.42 Type 2 diabetes mellitus with diabetic polyneuropathy

== ENCOUNTER → 2017-11-18 | Outpatient (CLI) | payer MEDICARE, OTHER, MEDICAID | LOC: M PLARAD 14:46 | DX: R22.41 Localized swelling, mass and lump, right lower limb (principal) ==

== ENCOUNTER 2017-11-19 13:23 | Inpatient (IN) | payer MEDICARE ==
[2017-11-19 14:03] LABS: KETONE, URINE AUTO RFX NEGATIVE (NEGATIVE); LEUKOCYTE ESTERASE UR AUTO RFX 3+ (NEGATIVE); MUCUS, URINE RFX SMALL (NEGATIVE); NITRITE, URINE AUTO RFX NEGATIVE (NEGATIVE); RBC, URINE AUTO RFX 2 /HPF (0-3); SPECIFIC GRAVITY UR AUTO RFX 1.008 (1.002-1.035); SQUAM EPITHELIAL CELL UR AURFX 1 /HPF (0-6); WBC, URINE AUTO RFX 84 /HPF (0-3)
[2017-11-19] MEDS: NS 500 ML IV (16:00)
[2017-11-19 16:40] LABS: BASO # 0.1 10^3/uL (0.0-0.2); BASO % 0.9 % (0.0-1.0); EOS # 0.3 10^3/uL (0.0-0.50); EOS % 4.6 % (0.0-3.0); HEMATOCRIT 38.4 % (36.0-47.0); IMMATURE GRANULOCYTE % 0.5 % (0-3.0); LYMPH # 1.7 10^3/uL (1.5-4.5); LYMPH % 30.2 % (24.0-44.0); MEAN CORPUSCULAR HEMOGLOBIN 22.9 pg (27.0-33.0); MEAN CORPUSCULAR HGB CONC 28.6 g/dl (32.0-36.5); MEAN CORPUSCULAR VOLUME 79.8 fl (80.0-96.0); MONO # 0.6 10^3/uL (0.0-0.8); MONO % 9.8 % (0.0-5.0); PLATELET COUNT, AUTOMATED 233 10^3/uL (150-450); RED BLOOD COUNT 4.81 10^6/uL (4.00-5.40); RED CELL DISTRIBUTION WIDTH 18.2 % (11.5-14.5); WHITE BLOOD COUNT 5.6 10^3/uL (4.0-10.0)
[2017-11-19 16:54] LABS: ANION GAP 10 MEQ/L (8-16); BLOOD UREA NITROGEN 22 MG/DL (7-18); CALCIUM LEVEL 8.7 MG/DL (8.8-10.2); CARBON DIOXIDE LEVEL 30 MEQ/L (21-32); CHLORIDE LEVEL 98 MEQ/L (98-107); CREATININE FOR GFR 1.81 MG/DL (0.55-1.30); GLOMERULAR FILTRATION RATE 29.2 (>39); POTASSIUM SERUM 4.1 MEQ/L (3.5-5.1); SODIUM LEVEL 138 MEQ/L (136-145)
[2017-11-19 16:57] LABS: GLUCOSE, FASTING 443 MG/DL (70-100)
[2017-11-19 17:00] LABS: LACTIC ACID SEPSIS PROTOCOL 3.2 MMOL/L (0.4-2.0)
[2017-11-19 17:34] LABS: OSMOLALITY SERUM 314 MOSM/KG (280-301)
[2017-11-19 17:38] LABS: ACETONE/KETONE 2.27 MG/DL (<2.81)
[2017-11-19] MEDS: NS 1,000 ML IV ×2 (17:45→19:55)
[2017-11-19] MEDS: MORPHINE 4 MG/ML 1ML VIAL/SYRINGE (J2270) IV (17:51)
[2017-11-19] MEDS: ONDANSETRON 4MG/2ML VIAL (J2405) IV ×2 (17:51→22:09)
[2017-11-19] MEDS: ERTAPENEM SODIUM 1 GM in NS MINI-BAG PLUS 50 ML IV (18:15)
[2017-11-19 18:18] LABS: VENOUS BASE EXCESS 4.5 (-2.0-2.0); VENOUS HCO3 31.2 MEQ/L (23.0-27.0); VENOUS O2 SATURATION 87.4 % (60.0-80.0); VENOUS PARTIAL PRESSURE CO2 57.9 mmHg (38.0-50.0); VENOUS STANDARD HCO3 28.3 MEQ/L
[2017-11-19] MEDS: HumuLIN R (REGULAR) INSULIN (NovoLIN R) **100U/ML** PER UNIT IV (19:11)
[2017-11-19] MEDS: SCOPOLAMINE 1MG TRANSDERMAL PATCH TOP (19:44)
[2017-11-19] MEDS ORDERED: MOM 30ML SUSPENSION UDC PO (20:00)
[2017-11-19] MEDS ORDERED: ALBUTEROL SULFATE 2.5 MG/0.5 ML INH NEB SOLN INH (20:00)
[2017-11-19] MEDS ORDERED: ACETAMINOPHEN TAB 650MG DOSE (2X325MG) PO (20:00)
[2017-11-19] MEDS ORDERED: BENZONATATE 100 MG CAP PO (20:00)
[2017-11-19] MEDS ORDERED: NYSTATIN CREAM 15 GM TOP (20:00)
[2017-11-19] MEDS ORDERED: guaiFENesin ER 600 MG TAB PO (20:00)
[2017-11-19] MEDS ORDERED: DEXTROSE 50% 50 ML SYRINGE IV (20:15)
[2017-11-19] MEDS ORDERED: GLUCOSE 4 GM CHEW TABLET PO (20:15)
[2017-11-19] MEDS ORDERED: GLUCAGON FOR INJ 1 MG VIAL (J1610) SC (20:15)
[2017-11-19] MEDS: PREGABALIN 75 MG CAP(LYRICA) PO (21:00)
[2017-11-19] MEDS ORDERED: SENOKOT S TAB PO (21:00)
[2017-11-19] MEDS: PERCOCET 5MG/325MG TAB PO (22:08)
[2017-11-20 01:32] LABS: BEDSIDE GLUCOSE 273 MG/DL (83-110)
[2017-11-20] MEDS: LACTULOSE 20 GM/30 ML SYRUP UD PO ×3 (01:33→21:47)
[2017-11-20] MEDS: OMEPRAZOLE 20 MG CAP PO ×3 (01:34→21:47)
[2017-11-20] MEDS: levETIRAcetam 250MG TABLET (KEPPRA) PO ×3 (01:34→21:47)
[2017-11-20] MEDS: SPIRONOLACTONE 25 MG TAB PO ×3 (01:34→21:48)
[2017-11-20] MEDS: DOCUSATE SODIUM 100 MG CAP PO ×3 (01:35→21:46)
[2017-11-20] MEDS: rOPINIRole 2MG TAB PO ×2 (01:35→21:47)
[2017-11-20] MEDS: METOCLOPRAMIDE 10 MG TAB PO ×4 (01:35→21:48)
[2017-11-20] MEDS: SENNA 8.6 MG TAB (SENOKOT) PO ×3 (01:36→21:45)
[2017-11-20] MEDS: TORSEMIDE 100 MG TAB PO ×2 (01:37→08:47)
[2017-11-20] MEDS: HEPARIN SOD (PORCINE) 5000 UNITS/ML VIAL SC ×4 (01:38→21:49)
[2017-11-20] MEDS: ERYTHROMYCIN OPHTH OINT OS ×5 (01:38→21:49)
[2017-11-20] MEDS: LACTIC ACID 12% LOTION 225 GM BTL TOP ×3 (01:39→21:49)
[2017-11-20] MEDS: BETAMETHASONE VAL 0.1% OINT 15 GM TOP ×2 (01:41→21:50)
[2017-11-20] MEDS: HumaLOG INSULIN (NovoLOG) PER UNIT SC ×5 (01:56→21:45)
[2017-11-20] MEDS: ONDANSETRON 4MG/2ML VIAL (J2405) IV ×2 (02:03→13:12)
[2017-11-20] MEDS: PERCOCET 5MG/325MG TAB PO ×4 (02:30→21:47)
[2017-11-20] MEDS: NS 1,000 ML IV (05:55)
[2017-11-20] MEDS ORDERED: HumaLOG INSULIN (NovoLOG) PER UNIT SC (07:30)
[2017-11-20 07:53] LABS: BEDSIDE GLUCOSE 232 MG/DL (83-110)
[2017-11-20] MEDS: ALLOPURINOL 300 MG TAB PO (08:09)
[2017-11-20] MEDS: LEVEMIR (INSULIN DETEMIR) 1 UNITS/0.01ML SC ×2 (08:09→21:48)
[2017-11-20] MEDS: PREGABALIN 75 MG CAP(LYRICA) PO ×2 (08:10→21:46)
[2017-11-20] MEDS: POTASSIUM CHLORIDE 10 MEQ SR TABLET PO (08:10)
[2017-11-20] MEDS: COLCHICINE 0.6 MG TAB PO (08:11)
[2017-11-20] MEDS: ATORVASTATIN 10 MG TAB PO (08:47)
[2017-11-20] MEDS: BISOPROLOL FUM 2.5 MG PER 1/2TAB PO (08:47)
[2017-11-20] MEDS: MEROPENEM INJ 500 MG in APPROPRIATE DILUENT 1 EA IV ×2 (08:48→21:49)
[2017-11-20 10:22] LABS: BASO % 0.8 % (0.0-1.0); EOS # 0.3 10^3/uL (0.0-0.50); HEMATOCRIT 36.3 % (36.0-47.0); HEMOGLOBIN 10.1 g/dl (12.0-15.5); IMMATURE GRANULOCYTE % 0.8 % (0-3.0); LYMPH # 1.8 10^3/uL (1.5-4.5); LYMPH % 34.7 % (24.0-44.0); MEAN CORPUSCULAR HEMOGLOBIN 22.5 pg (27.0-33.0); MEAN CORPUSCULAR HGB CONC 27.8 g/dl (32.0-36.5); MONO # 0.5 10^3/uL (0.0-0.8); MONO % 10.4 % (0.0-5.0); NEUTROPHILS # 2.5 10^3/uL (1.8-7.7); NEUTROPHILS % 47.3 % (36.0-66.0); PLATELET COUNT, AUTOMATED 218 10^3/uL (150-450); RED BLOOD COUNT 4.48 10^6/uL (4.00-5.40); RED CELL DISTRIBUTION WIDTH 18.4 % (11.5-14.5); WHITE BLOOD COUNT 5.2 10^3/uL (4.0-10.0)
[2017-11-20 10:38] LABS: ANION GAP 9 MEQ/L (8-16); BLOOD UREA NITROGEN 20 MG/DL (7-18); CALCIUM LEVEL 8.4 MG/DL (8.8-10.2); CARBON DIOXIDE LEVEL 32 MEQ/L (21-32); CHLORIDE LEVEL 100 MEQ/L (98-107); CREATININE FOR GFR 1.55 MG/DL (0.55-1.30); GLOMERULAR FILTRATION RATE 34.9 (>39); GLUCOSE, FASTING 271 MG/DL (70-100); POTASSIUM SERUM 3.8 MEQ/L (3.5-5.1); SODIUM LEVEL 141 MEQ/L (136-145)
[2017-11-20 12:14] LABS: ALBUMIN/GLOBULIN RATIO 0.94 (1.00-1.93); ALKALINE PHOSPHATASE 96 U/L (45-117); ALT/SGPT 40 U/L (12-78); AST/SGOT 31 U/L (7-37); BILIRUBIN,TOTAL 0.3 MG/DL (0.2-1.0); MAGNESIUM LEVEL 2.1 MG/DL (1.8-2.4); TOTAL PROTEIN 6.2 GM/DL (6.4-8.2)
[2017-11-20 12:47] LABS: BEDSIDE GLUCOSE 332 MG/DL (83-110)
[2017-11-20] MEDS: rOPINIRole 1MG TAB PO ×2 (14:08→15:40)
[2017-11-20 16:28] LABS: BEDSIDE GLUCOSE 312 MG/DL (83-110)
[2017-11-20] MEDS ORDERED: ERTAPENEM SODIUM 1 GM in NS MINI-BAG PLUS 50 ML IV (18:00)
[2017-11-20 20:05] LABS: BEDSIDE GLUCOSE 333 MG/DL (83-110)
[2017-11-20] MEDS: SODIUM CHLORIDE 0.9% INJ 10 ML SYR IV (23:23)
[2017-11-21] MEDS: ONDANSETRON 4MG/2ML VIAL (J2405) IV ×3 (02:00→20:30)
[2017-11-21] MEDS: PERCOCET 5MG/325MG TAB PO ×4 (02:01→20:36)
[2017-11-21] MEDS: SODIUM CHLORIDE 0.9% INJ 10 ML SYR IV ×2 (02:02→08:33)
[2017-11-21] MEDS: HEPARIN SOD (PORCINE) 5000 UNITS/ML VIAL SC ×3 (05:37→20:30)
[2017-11-21 07:01] LABS: BASO % 0.6 % (0.0-1.0); EOS # 0.3 10^3/uL (0.0-0.50); EOS % 4.2 % (0.0-3.0); HEMATOCRIT 35.6 % (36.0-47.0); HEMOGLOBIN 10.3 g/dl (12.0-15.5); IMMATURE GRANULOCYTE % 0.6 % (0-3.0); LYMPH # 1.7 10^3/uL (1.5-4.5); LYMPH % 26.5 % (24.0-44.0); MEAN CORPUSCULAR HGB CONC 28.9 g/dl (32.0-36.5); MEAN CORPUSCULAR VOLUME 79.5 fl (80.0-96.0); MONO # 0.7 10^3/uL (0.0-0.8); MONO % 10.2 % (0.0-5.0); NEUTROPHILS # 3.7 10^3/uL (1.8-7.7); NEUTROPHILS % 57.9 % (36.0-66.0); PLATELET COUNT, AUTOMATED 229 10^3/uL (150-450); RED BLOOD COUNT 4.48 10^6/uL (4.00-5.40); RED CELL DISTRIBUTION WIDTH 18.3 % (11.5-14.5); WHITE BLOOD COUNT 6.4 10^3/uL (4.0-10.0)
[2017-11-21 07:15] LABS: ANION GAP 6 MEQ/L (8-16); BLOOD UREA NITROGEN 22 MG/DL (7-18); CALCIUM LEVEL 8.9 MG/DL (8.8-10.2); CARBON DIOXIDE LEVEL 35 MEQ/L (21-32); CHLORIDE LEVEL 99 MEQ/L (98-107); CREATININE FOR GFR 1.75 MG/DL (0.55-1.30); GLOMERULAR FILTRATION RATE 30.3 (>39); GLUCOSE, FASTING 307 MG/DL (70-100); POTASSIUM SERUM 4.1 MEQ/L (3.5-5.1); SODIUM LEVEL 140 MEQ/L (136-145)
[2017-11-21] MEDS: LACTIC ACID 12% LOTION 225 GM BTL TOP ×2 (08:30→20:31)
[2017-11-21] MEDS: LACTULOSE 20 GM/30 ML SYRUP UD PO ×2 (08:31→20:30)
[2017-11-21] MEDS: HumaLOG INSULIN (NovoLOG) PER UNIT SC ×4 (08:32→20:46)
[2017-11-21] MEDS: MEROPENEM INJ 500 MG in APPROPRIATE DILUENT 1 EA IV ×2 (08:32→20:31)
[2017-11-21] MEDS: METOCLOPRAMIDE 10 MG TAB PO ×3 (08:33→20:30)
[2017-11-21] MEDS: PREGABALIN 75 MG CAP(LYRICA) PO ×2 (08:33→20:30)
[2017-11-21] MEDS: TORSEMIDE 100 MG TAB PO (08:33)
[2017-11-21] MEDS: SENNA 8.6 MG TAB (SENOKOT) PO ×2 (08:33→20:32)
[2017-11-21] MEDS: OMEPRAZOLE 20 MG CAP PO ×2 (08:34→20:30)
[2017-11-21] MEDS: SPIRONOLACTONE 25 MG TAB PO ×2 (08:34→20:30)
[2017-11-21] MEDS: ALLOPURINOL 300 MG TAB PO (08:34)
[2017-11-21] MEDS: levETIRAcetam 250MG TABLET (KEPPRA) PO ×2 (08:34→20:30)
[2017-11-21] MEDS: ATORVASTATIN 10 MG TAB PO (08:34)
[2017-11-21] MEDS: ERYTHROMYCIN OPHTH OINT OS ×4 (08:34→20:31)
[2017-11-21] MEDS: DOCUSATE SODIUM 100 MG CAP PO ×2 (08:34→20:32)
[2017-11-21] MEDS: BISOPROLOL FUM 2.5 MG PER 1/2TAB PO (08:34)
[2017-11-21] MEDS: POTASSIUM CHLORIDE 10 MEQ SR TABLET PO (08:35)
[2017-11-21] MEDS: COLCHICINE 0.6 MG TAB PO (08:35)
[2017-11-21 11:34] LABS: BEDSIDE GLUCOSE 329 MG/DL (83-110)
[2017-11-21] MEDS: LEVEMIR (INSULIN DETEMIR) 1 UNITS/0.01ML SC ×2 (12:33→20:31)
[2017-11-21] MEDS: NS 500 ML IV (13:45)
[2017-11-21] MEDS: rOPINIRole 1MG TAB PO (15:25)
[2017-11-21 16:51] LABS: BEDSIDE GLUCOSE 278 MG/DL (83-110)
[2017-11-21 20:03] LABS: BEDSIDE GLUCOSE 298 MG/DL (83-110)
[2017-11-21] MEDS: rOPINIRole 2MG TAB PO (20:30)
[2017-11-21] MEDS: BETAMETHASONE VAL 0.1% OINT 15 GM TOP (20:32)
[2017-11-21 20:37] LABS: BEDSIDE GLUCOSE 271 MG/DL (83-110)
[2017-11-22] MEDS: LEVEMIR (INSULIN DETEMIR) 1 UNITS/0.01ML SC ×3 (05:24→22:19)
[2017-11-22] MEDS: HEPARIN SOD (PORCINE) 5000 UNITS/ML VIAL SC ×3 (05:24→22:19)
[2017-11-22 05:25] LABS: BEDSIDE GLUCOSE 345 MG/DL (83-110)
[2017-11-22] MEDS: SODIUM CHLORIDE 0.9% INJ 10 ML SYR IV ×4 (06:32→23:30)
[2017-11-22 06:46] LABS: HEMATOCRIT 34.9 % (36.0-47.0); MEAN CORPUSCULAR HGB CONC 28.7 g/dl (32.0-36.5); MEAN CORPUSCULAR VOLUME 80.2 fl (80.0-96.0); PLATELET COUNT, AUTOMATED 230 10^3/uL (150-450); RED BLOOD COUNT 4.35 10^6/uL (4.00-5.40); RED CELL DISTRIBUTION WIDTH 18.1 % (11.5-14.5)
[2017-11-22 07:18] LABS: ANION GAP 6 MEQ/L (8-16); BLOOD UREA NITROGEN 25 MG/DL (7-18); CALCIUM LEVEL 9.1 MG/DL (8.8-10.2); CARBON DIOXIDE LEVEL 36 MEQ/L (21-32); CHLORIDE LEVEL 94 MEQ/L (98-107); CREATININE FOR GFR 1.89 MG/DL (0.55-1.30); GLOMERULAR FILTRATION RATE 27.8 (>39); GLUCOSE, FASTING 335 MG/DL (70-100); MAGNESIUM LEVEL 2.1 MG/DL (1.8-2.4); POTASSIUM SERUM 4.3 MEQ/L (3.5-5.1); SODIUM LEVEL 136 MEQ/L (136-145)
[2017-11-22] MEDS: MEROPENEM INJ 500 MG in APPROPRIATE DILUENT 1 EA IV (08:21)
[2017-11-22] MEDS: LACTULOSE 20 GM/30 ML SYRUP UD PO ×3 (08:21→22:20)
[2017-11-22] MEDS: levETIRAcetam 250MG TABLET (KEPPRA) PO ×2 (08:22→22:18)
[2017-11-22] MEDS: ATORVASTATIN 10 MG TAB PO (08:22)
[2017-11-22] MEDS: METOCLOPRAMIDE 10 MG TAB PO ×3 (08:22→22:20)
[2017-11-22] MEDS: DOCUSATE SODIUM 100 MG CAP PO ×2 (08:22→22:18)
[2017-11-22] MEDS: ONDANSETRON 4MG/2ML VIAL (J2405) IV ×2 (08:22→14:54)
[2017-11-22] MEDS: PREGABALIN 75 MG CAP(LYRICA) PO ×2 (08:24→22:18)
[2017-11-22] MEDS: BISOPROLOL FUM 2.5 MG PER 1/2TAB PO (08:24)
[2017-11-22] MEDS: POTASSIUM CHLORIDE 10 MEQ SR TABLET PO (08:24)
[2017-11-22] MEDS: ALLOPURINOL 300 MG TAB PO (08:24)
[2017-11-22] MEDS: OMEPRAZOLE 20 MG CAP PO ×2 (08:24→22:18)
[2017-11-22] MEDS: COLCHICINE 0.6 MG TAB PO (08:25)
[2017-11-22] MEDS: PERCOCET 5MG/325MG TAB PO ×5 (08:26→23:00)
[2017-11-22] MEDS: SCOPOLAMINE 1MG TRANSDERMAL PATCH TD (08:27)
[2017-11-22] MEDS: LACTIC ACID 12% LOTION 225 GM BTL TOP ×2 (08:27→22:21)
[2017-11-22] MEDS: ERYTHROMYCIN OPHTH OINT OS ×4 (08:28→22:20)
[2017-11-22] MEDS: HumaLOG INSULIN (NovoLOG) PER UNIT SC ×4 (08:47→22:19)
[2017-11-22 11:42] LABS: BEDSIDE GLUCOSE 354 MG/DL (83-110)
[2017-11-22] MEDS: rOPINIRole 1MG TAB PO (15:37)
[2017-11-22 16:45] LABS: BEDSIDE GLUCOSE 404 MG/DL (83-110)
[2017-11-22] MEDS: TORSEMIDE 100 MG TAB PO (18:39)
[2017-11-22 20:42] LABS: BEDSIDE GLUCOSE 329 MG/DL (83-110)
[2017-11-22] MEDS: ERTAPENEM SODIUM 1 GM in NS MINI-BAG PLUS 50 ML IV (22:17)
[2017-11-22] MEDS: BETAMETHASONE VAL 0.1% OINT 15 GM TOP (22:20)
[2017-11-22] MEDS: rOPINIRole 2MG TAB PO (22:31)
[2017-11-23 05:23] LABS: BEDSIDE GLUCOSE 292 MG/DL (83-110)
[2017-11-23 05:39] LABS: HEMATOCRIT 33.7 % (36.0-47.0); HEMOGLOBIN 9.5 g/dl (12.0-15.5); MEAN CORPUSCULAR HEMOGLOBIN 22.6 pg (27.0-33.0); MEAN CORPUSCULAR HGB CONC 28.2 g/dl (32.0-36.5); MEAN CORPUSCULAR VOLUME 80.2 fl (80.0-96.0); PLATELET COUNT, AUTOMATED 212 10^3/uL (150-450); RED CELL DISTRIBUTION WIDTH 17.9 % (11.5-14.5)
[2017-11-23] MEDS: HEPARIN SOD (PORCINE) 5000 UNITS/ML VIAL SC ×3 (06:25→22:09)
[2017-11-23] MEDS: LEVEMIR (INSULIN DETEMIR) 1 UNITS/0.01ML SC ×3 (06:25→22:09)
[2017-11-23 06:29] LABS: ANION GAP 9 MEQ/L (8-16); BLOOD UREA NITROGEN 29 MG/DL (7-18); CALCIUM LEVEL 8.9 MG/DL (8.8-10.2); CARBON DIOXIDE LEVEL 34 MEQ/L (21-32); CHLORIDE LEVEL 95 MEQ/L (98-107); CREATININE FOR GFR 1.86 MG/DL (0.55-1.30); GLOMERULAR FILTRATION RATE 28.3 (>39); GLUCOSE, FASTING 302 MG/DL (70-100); MAGNESIUM LEVEL 2.4 MG/DL (1.8-2.4); POTASSIUM SERUM 4.1 MEQ/L (3.5-5.1); SODIUM LEVEL 138 MEQ/L (136-145)
[2017-11-23] MEDS: HumaLOG INSULIN (NovoLOG) PER UNIT SC ×4 (07:30→22:10)
[2017-11-23] MEDS: COLCHICINE 0.6 MG TAB PO (09:50)
[2017-11-23] MEDS: SODIUM CHLORIDE 0.9% INJ 10 ML SYR IV ×2 (09:51→23:58)
[2017-11-23] MEDS: BISOPROLOL FUM 2.5 MG PER 1/2TAB PO (09:51)
[2017-11-23] MEDS: DOCUSATE SODIUM 100 MG CAP PO ×2 (09:51→22:12)
[2017-11-23] MEDS: METOCLOPRAMIDE 10 MG TAB PO ×3 (09:51→22:11)
[2017-11-23] MEDS: OMEPRAZOLE 20 MG CAP PO ×2 (09:51→22:11)
[2017-11-23] MEDS: ATORVASTATIN 10 MG TAB PO (09:52)
[2017-11-23] MEDS: LACTULOSE 20 GM/30 ML SYRUP UD PO ×2 (09:52→22:11)
[2017-11-23] MEDS: PREGABALIN 75 MG CAP(LYRICA) PO ×2 (09:52→22:11)
[2017-11-23] MEDS: ALLOPURINOL 300 MG TAB PO (09:52)
[2017-11-23] MEDS: POTASSIUM CHLORIDE 10 MEQ SR TABLET PO (09:52)
[2017-11-23] MEDS: levETIRAcetam 250MG TABLET (KEPPRA) PO ×2 (09:52→22:11)
[2017-11-23] MEDS: ERYTHROMYCIN OPHTH OINT OS ×4 (09:53→22:10)
[2017-11-23] MEDS: PERCOCET 5MG/325MG TAB PO ×3 (09:53→22:12)
[2017-11-23] MEDS: LACTIC ACID 12% LOTION 225 GM BTL TOP ×2 (09:54→22:10)
[2017-11-23 11:50] LABS: BEDSIDE GLUCOSE 375 MG/DL (83-110)
[2017-11-23] MEDS: ONDANSETRON 4MG/2ML VIAL (J2405) IV ×2 (13:57→22:10)
[2017-11-23] MEDS: rOPINIRole 1MG TAB PO (16:05)
[2017-11-23 16:55] LABS: BEDSIDE GLUCOSE 447 MG/DL (83-110)
[2017-11-23 20:47] LABS: BEDSIDE GLUCOSE 345 MG/DL (83-110)
[2017-11-23] MEDS: rOPINIRole 2MG TAB PO (22:11)
[2017-11-23] MEDS: BETAMETHASONE VAL 0.1% OINT 15 GM TOP (22:13)
[2017-11-23] MEDS: ERTAPENEM SODIUM 1 GM in NS MINI-BAG PLUS 50 ML IV (23:01)
[2017-11-24 05:27] LABS: BEDSIDE GLUCOSE 310 MG/DL (83-110)
[2017-11-24] MEDS: HEPARIN SOD (PORCINE) 5000 UNITS/ML VIAL SC ×3 (06:09→22:48)
[2017-11-24] MEDS: LEVEMIR (INSULIN DETEMIR) 1 UNITS/0.01ML SC ×3 (06:09→22:47)
[2017-11-24] MEDS: SODIUM CHLORIDE 0.9% INJ 10 ML SYR IV ×3 (06:12→22:48)
[2017-11-24 06:27] LABS: HEMATOCRIT 33.2 % (36.0-47.0); HEMOGLOBIN 9.6 g/dl (12.0-15.5); MEAN CORPUSCULAR HEMOGLOBIN 23.2 pg (27.0-33.0); MEAN CORPUSCULAR HGB CONC 28.9 g/dl (32.0-36.5); MEAN CORPUSCULAR VOLUME 80.2 fl (80.0-96.0); PLATELET COUNT, AUTOMATED 214 10^3/uL (150-450); RED BLOOD COUNT 4.14 10^6/uL (4.00-5.40); RED CELL DISTRIBUTION WIDTH 17.9 % (11.5-14.5); WHITE BLOOD COUNT 6.1 10^3/uL (4.0-10.0)
[2017-11-24] MEDS: LACTULOSE 20 GM/30 ML SYRUP UD PO ×3 (09:35→22:58)
[2017-11-24] MEDS: levETIRAcetam 250MG TABLET (KEPPRA) PO ×2 (09:36→22:45)
[2017-11-24] MEDS: OMEPRAZOLE 20 MG CAP PO ×2 (09:36→22:45)
[2017-11-24] MEDS: ATORVASTATIN 10 MG TAB PO (09:36)
[2017-11-24] MEDS: DOCUSATE SODIUM 100 MG CAP PO ×2 (09:36→22:45)
[2017-11-24] MEDS: PREGABALIN 75 MG CAP(LYRICA) PO ×2 (09:36→22:45)
[2017-11-24] MEDS: BISOPROLOL FUM 2.5 MG PER 1/2TAB PO (09:36)
[2017-11-24] MEDS: METOCLOPRAMIDE 10 MG TAB PO ×3 (09:37→22:45)
[2017-11-24] MEDS: ALLOPURINOL 300 MG TAB PO (09:37)
[2017-11-24] MEDS: POTASSIUM CHLORIDE 10 MEQ SR TABLET PO (09:37)
[2017-11-24] MEDS: COLCHICINE 0.6 MG TAB PO (09:37)
[2017-11-24] MEDS: PERCOCET 5MG/325MG TAB PO ×3 (09:38→22:46)
[2017-11-24] MEDS: ERYTHROMYCIN OPHTH OINT OS ×4 (09:38→22:49)
[2017-11-24 10:11] LABS: ANION GAP 9 MEQ/L (8-16); BLOOD UREA NITROGEN 33 MG/DL (7-18); CALCIUM LEVEL 8.9 MG/DL (8.8-10.2); CARBON DIOXIDE LEVEL 36 MEQ/L (21-32); CHLORIDE LEVEL 94 MEQ/L (98-107); CREATININE FOR GFR 1.81 MG/DL (0.55-1.30); GLOMERULAR FILTRATION RATE 29.2 (>39); GLUCOSE, FASTING 305 MG/DL (70-100); MAGNESIUM LEVEL 2.6 MG/DL (1.8-2.4); POTASSIUM SERUM 4.5 MEQ/L (3.5-5.1); SODIUM LEVEL 139 MEQ/L (136-145)
[2017-11-24] MEDS: HumaLOG INSULIN (NovoLOG) PER UNIT SC ×4 (10:19→22:47)
[2017-11-24] MEDS: LACTIC ACID 12% LOTION 225 GM BTL TOP ×2 (10:19→22:49)
[2017-11-24 11:50] LABS: BEDSIDE GLUCOSE 364 MG/DL (83-110)
[2017-11-24] MEDS: ONDANSETRON 4MG/2ML VIAL (J2405) IV ×2 (13:25→22:48)
[2017-11-24] MEDS: rOPINIRole 1MG TAB PO (15:26)
[2017-11-24 16:55] LABS: BEDSIDE GLUCOSE 404 MG/DL (83-110)
[2017-11-24] MEDS: ERTAPENEM SODIUM 1 GM in NS MINI-BAG PLUS 50 ML IV (18:08)
[2017-11-24 21:23] LABS: BEDSIDE GLUCOSE 345 MG/DL (83-110)
[2017-11-24] MEDS: rOPINIRole 2MG TAB PO (22:45)
[2017-11-24] MEDS: BETAMETHASONE VAL 0.1% OINT 15 GM TOP (22:49)
[2017-11-25] MEDS: LEVEMIR (INSULIN DETEMIR) 1 UNITS/0.01ML SC ×3 (05:22→21:16)
[2017-11-25] MEDS: HEPARIN SOD (PORCINE) 5000 UNITS/ML VIAL SC ×3 (05:22→21:16)
[2017-11-25] MEDS: ONDANSETRON 4MG/2ML VIAL (J2405) IV ×2 (05:32→12:13)
[2017-11-25 05:45] LABS: HEMATOCRIT 31.8 % (36.0-47.0); HEMOGLOBIN 9.2 g/dl (12.0-15.5); MEAN CORPUSCULAR HEMOGLOBIN 23.1 pg (27.0-33.0); MEAN CORPUSCULAR HGB CONC 28.9 g/dl (32.0-36.5); MEAN CORPUSCULAR VOLUME 79.9 fl (80.0-96.0); PLATELET COUNT, AUTOMATED 197 10^3/uL (150-450); RED BLOOD COUNT 3.98 10^6/uL (4.00-5.40); RED CELL DISTRIBUTION WIDTH 17.7 % (11.5-14.5); WHITE BLOOD COUNT 5.4 10^3/uL (4.0-10.0)
[2017-11-25 06:15] LABS: ANION GAP 7 MEQ/L (8-16); BLOOD UREA NITROGEN 28 MG/DL (7-18); CALCIUM LEVEL 8.9 MG/DL (8.8-10.2); CARBON DIOXIDE LEVEL 34 MEQ/L (21-32); CHLORIDE LEVEL 98 MEQ/L (98-107); CREATININE FOR GFR 1.63 MG/DL (0.55-1.30); GLOMERULAR FILTRATION RATE 32.9 (>39); GLUCOSE, FASTING 394 MG/DL (70-100); MAGNESIUM LEVEL 2.6 MG/DL (1.8-2.4); POTASSIUM SERUM 4.9 MEQ/L (3.5-5.1); SODIUM LEVEL 139 MEQ/L (136-145)
[2017-11-25 08:13] LABS: URIC ACID 4.5 MG/DL (2.6-6.0)
[2017-11-25] MEDS: LACTULOSE 20 GM/30 ML SYRUP UD PO ×2 (08:31→21:18)
[2017-11-25] MEDS: SCOPOLAMINE 1MG TRANSDERMAL PATCH TD (08:37)
[2017-11-25] MEDS: POTASSIUM CHLORIDE 10 MEQ SR TABLET PO (08:37)
[2017-11-25] MEDS: DOCUSATE SODIUM 100 MG CAP PO ×2 (08:38→21:18)
[2017-11-25] MEDS: ALLOPURINOL 300 MG TAB PO (08:38)
[2017-11-25] MEDS: ATORVASTATIN 10 MG TAB PO (08:38)
[2017-11-25] MEDS: METOCLOPRAMIDE 10 MG TAB PO (08:38)
[2017-11-25] MEDS: OMEPRAZOLE 20 MG CAP PO ×2 (08:38→21:18)
[2017-11-25] MEDS: PREGABALIN 75 MG CAP(LYRICA) PO ×2 (08:38→21:18)
[2017-11-25] MEDS: levETIRAcetam 250MG TABLET (KEPPRA) PO ×2 (08:38→21:17)
[2017-11-25] MEDS: SODIUM CHLORIDE 0.9% INJ 10 ML SYR IV (08:39)
[2017-11-25] MEDS: HumaLOG INSULIN (NovoLOG) PER UNIT SC ×4 (08:39→21:17)
[2017-11-25] MEDS: BISOPROLOL FUM 2.5 MG PER 1/2TAB PO (08:39)
[2017-11-25] MEDS: LACTIC ACID 12% LOTION 225 GM BTL TOP ×2 (08:40→21:19)
[2017-11-25] MEDS: ERYTHROMYCIN OPHTH OINT OS ×4 (08:40→21:18)
[2017-11-25] MEDS: PERCOCET 5MG/325MG TAB PO ×4 (08:48→22:58)
[2017-11-25 11:32] LABS: BEDSIDE GLUCOSE 370 MG/DL (83-110)
[2017-11-25] MEDS: METOCLOPRAMIDE 5 MG TAB PO ×2 (12:13→18:06)
[2017-11-25] MEDS: SPIRONOLACTONE 25 MG TAB PO (12:15)
[2017-11-25] MEDS: TORSEMIDE (DEMADEX) 50 MG PER 1/2 TAB PO ×2 (12:16→18:05)
[2017-11-25] MEDS: rOPINIRole 1MG TAB PO (13:10)
[2017-11-25 16:40] LABS: BEDSIDE GLUCOSE 467 MG/DL (83-110)
[2017-11-25] MEDS: ERTAPENEM SODIUM 1 GM in NS MINI-BAG PLUS 50 ML IV (18:07)
[2017-11-25 20:42] LABS: BEDSIDE GLUCOSE 497 MG/DL (83-110)
[2017-11-25] MEDS: rOPINIRole 2MG TAB PO (21:17)
[2017-11-25] MEDS: BETAMETHASONE VAL 0.1% OINT 15 GM TOP (21:20)
[2017-11-26] MEDS: LEVEMIR (INSULIN DETEMIR) 1 UNITS/0.01ML SC ×3 (05:43→21:11)
[2017-11-26] MEDS: HEPARIN SOD (PORCINE) 5000 UNITS/ML VIAL SC ×3 (05:44→21:10)
[2017-11-26] MEDS: PERCOCET 5MG/325MG TAB PO ×3 (05:48→17:36)
[2017-11-26 05:52] LABS: BEDSIDE GLUCOSE 385 MG/DL (83-110)
[2017-11-26] MEDS: SODIUM CHLORIDE 0.9% INJ 10 ML SYR IV ×3 (05:52→21:13)
[2017-11-26 06:16] LABS: HEMATOCRIT 32.3 % (36.0-47.0); HEMOGLOBIN 9.1 g/dl (12.0-15.5); MEAN CORPUSCULAR HEMOGLOBIN 22.6 pg (27.0-33.0); MEAN CORPUSCULAR HGB CONC 28.2 g/dl (32.0-36.5); MEAN CORPUSCULAR VOLUME 80.3 fl (80.0-96.0); PLATELET COUNT, AUTOMATED 215 10^3/uL (150-450); RED BLOOD COUNT 4.02 10^6/uL (4.00-5.40); RED CELL DISTRIBUTION WIDTH 17.8 % (11.5-14.5); WHITE BLOOD COUNT 5.6 10^3/uL (4.0-10.0)
[2017-11-26 06:43] LABS: ANION GAP 6 MEQ/L (8-16); BLOOD UREA NITROGEN 24 MG/DL (7-18); CALCIUM LEVEL 9.5 MG/DL (8.8-10.2); CARBON DIOXIDE LEVEL 38 MEQ/L (21-32); CHLORIDE LEVEL 94 MEQ/L (98-107); CREATININE FOR GFR 1.72 MG/DL (0.55-1.30); GLOMERULAR FILTRATION RATE 30.9 (>39); GLUCOSE, FASTING 381 MG/DL (70-100); MAGNESIUM LEVEL 2.6 MG/DL (1.8-2.4); POTASSIUM SERUM 4.3 MEQ/L (3.5-5.1); SODIUM LEVEL 138 MEQ/L (136-145)
[2017-11-26] MEDS: ONDANSETRON 4MG/2ML VIAL (J2405) IV ×3 (06:45→21:13)
[2017-11-26] MEDS: LACTULOSE 20 GM/30 ML SYRUP UD PO ×2 (08:52→21:10)
[2017-11-26] MEDS: ATORVASTATIN 10 MG TAB PO (08:53)
[2017-11-26] MEDS: METOCLOPRAMIDE 5 MG TAB PO ×3 (08:53→16:37)
[2017-11-26] MEDS: BISOPROLOL FUM 2.5 MG PER 1/2TAB PO (08:53)
[2017-11-26] MEDS: ALLOPURINOL 300 MG TAB PO (08:53)
[2017-11-26] MEDS: TORSEMIDE (DEMADEX) 50 MG PER 1/2 TAB PO ×2 (08:53→16:37)
[2017-11-26] MEDS: DOCUSATE SODIUM 100 MG CAP PO ×2 (08:53→21:12)
[2017-11-26] MEDS: OMEPRAZOLE 20 MG CAP PO ×2 (08:53→21:11)
[2017-11-26] MEDS: PREGABALIN 75 MG CAP(LYRICA) PO ×2 (08:53→21:11)
[2017-11-26] MEDS: SPIRONOLACTONE 25 MG TAB PO (08:54)
[2017-11-26] MEDS: levETIRAcetam 250MG TABLET (KEPPRA) PO ×2 (08:54→21:12)
[2017-11-26] MEDS: HumaLOG INSULIN (NovoLOG) PER UNIT SC ×4 (08:55→21:11)
[2017-11-26] MEDS: LACTIC ACID 12% LOTION 225 GM BTL TOP ×2 (08:56→21:12)
[2017-11-26] MEDS: ERYTHROMYCIN OPHTH OINT OS ×4 (08:56→21:12)
[2017-11-26 11:50] LABS: BEDSIDE GLUCOSE 316 MG/DL (83-110)
[2017-11-26] MEDS: ERTAPENEM SODIUM 1 GM in NS MINI-BAG PLUS 50 ML IV (16:36)
[2017-11-26] MEDS: rOPINIRole 1MG TAB PO (16:37)
[2017-11-26 16:43] LABS: BEDSIDE GLUCOSE 357 MG/DL (83-110)
[2017-11-26 20:19] LABS: BEDSIDE GLUCOSE 396 MG/DL (83-110)
[2017-11-26] MEDS: rOPINIRole 2MG TAB PO (21:12)
[2017-11-26] MEDS: BETAMETHASONE VAL 0.1% OINT 15 GM TOP (21:12)
[2017-11-27 05:37] LABS: HEMATOCRIT 32.6 % (36.0-47.0); HEMOGLOBIN 9.2 g/dl (12.0-15.5); MEAN CORPUSCULAR HEMOGLOBIN 23.2 pg (27.0-33.0); MEAN CORPUSCULAR HGB CONC 28.2 g/dl (32.0-36.5); MEAN CORPUSCULAR VOLUME 82.1 fl (80.0-96.0); PLATELET COUNT, AUTOMATED 207 10^3/uL (150-450); RED BLOOD COUNT 3.97 10^6/uL (4.00-5.40); RED CELL DISTRIBUTION WIDTH 17.9 % (11.5-14.5); WHITE BLOOD COUNT 5.9 10^3/uL (4.0-10.0)
[2017-11-27 05:57] LABS: BEDSIDE GLUCOSE 298 MG/DL (83-110)
[2017-11-27] MEDS: HEPARIN SOD (PORCINE) 5000 UNITS/ML VIAL SC ×3 (06:09→21:05)
[2017-11-27] MEDS: LEVEMIR (INSULIN DETEMIR) 1 UNITS/0.01ML SC ×3 (06:10→21:07)
[2017-11-27 07:04] LABS: ANION GAP 7 MEQ/L (8-16); BLOOD UREA NITROGEN 24 MG/DL (7-18); CALCIUM LEVEL 8.9 MG/DL (8.8-10.2); CARBON DIOXIDE LEVEL 40 MEQ/L (21-32); CHLORIDE LEVEL 93 MEQ/L (98-107); CREATININE FOR GFR 1.81 MG/DL (0.55-1.30); GLOMERULAR FILTRATION RATE 29.2 (>39); GLUCOSE, FASTING 308 MG/DL (70-100); MAGNESIUM LEVEL 2.4 MG/DL (1.8-2.4); POTASSIUM SERUM 4.1 MEQ/L (3.5-5.1); SODIUM LEVEL 140 MEQ/L (136-145)
[2017-11-27] MEDS: DOCUSATE SODIUM 100 MG CAP PO ×2 (08:19→21:05)
[2017-11-27] MEDS: HumaLOG INSULIN (NovoLOG) PER UNIT SC ×4 (08:19→21:07)
[2017-11-27] MEDS: ATORVASTATIN 10 MG TAB PO (08:19)
[2017-11-27] MEDS: OMEPRAZOLE 20 MG CAP PO ×2 (08:19→21:05)
[2017-11-27] MEDS: ALLOPURINOL 300 MG TAB PO (08:19)
[2017-11-27] MEDS: PREGABALIN 75 MG CAP(LYRICA) PO ×2 (08:20→21:05)
[2017-11-27] MEDS: SPIRONOLACTONE 25 MG TAB PO (08:20)
[2017-11-27] MEDS: TORSEMIDE 20 MG TAB PO ×2 (08:20→18:42)
[2017-11-27] MEDS: METOCLOPRAMIDE 5 MG TAB PO ×3 (08:20→18:42)
[2017-11-27] MEDS: LACTULOSE 20 GM/30 ML SYRUP UD PO ×2 (08:21→21:04)
[2017-11-27] MEDS: SODIUM CHLORIDE 0.9% INJ 10 ML SYR IV ×2 (08:21→21:08)
[2017-11-27] MEDS: levETIRAcetam 250MG TABLET (KEPPRA) PO ×2 (08:21→21:05)
[2017-11-27] MEDS: ERYTHROMYCIN OPHTH OINT OS ×4 (08:22→21:06)
[2017-11-27] MEDS: BISOPROLOL FUM 2.5 MG PER 1/2TAB PO (08:22)
[2017-11-27] MEDS: LACTIC ACID 12% LOTION 225 GM BTL TOP ×2 (08:22→21:06)
[2017-11-27 12:00] LABS: BEDSIDE GLUCOSE 283 MG/DL (83-110)
[2017-11-27] MEDS: PERCOCET 5MG/325MG TAB PO ×2 (13:40→21:09)
[2017-11-27] MEDS: rOPINIRole 1MG TAB PO (14:49)
[2017-11-27] MEDS: ERTAPENEM SODIUM 1 GM in NS MINI-BAG PLUS 50 ML IV (18:41)
[2017-11-27 19:01] LABS: BEDSIDE GLUCOSE 354 MG/DL (83-110)
[2017-11-27 20:21] LABS: BEDSIDE GLUCOSE 378 MG/DL (83-110)
[2017-11-27] MEDS: rOPINIRole 2MG TAB PO (21:05)
[2017-11-27] MEDS: ONDANSETRON 4MG/2ML VIAL (J2405) IV (21:06)
[2017-11-27] MEDS: BETAMETHASONE VAL 0.1% OINT 15 GM TOP (21:06)
[2017-11-28] MEDS: LEVEMIR (INSULIN DETEMIR) 1 UNITS/0.01ML SC ×3 (05:20→21:50)
[2017-11-28] MEDS: HEPARIN SOD (PORCINE) 5000 UNITS/ML VIAL SC ×3 (05:20→21:50)
[2017-11-28 05:36] LABS: BEDSIDE GLUCOSE 261 MG/DL (83-110)
[2017-11-28] MEDS: ONDANSETRON 4MG/2ML VIAL (J2405) IV (05:39)
[2017-11-28] MEDS: PERCOCET 5MG/325MG TAB PO ×4 (05:39→21:52)
[2017-11-28 06:11] LABS: HEMOGLOBIN 9.2 g/dl (12.0-15.5); MEAN CORPUSCULAR HEMOGLOBIN 22.9 pg (27.0-33.0); MEAN CORPUSCULAR HGB CONC 27.9 g/dl (32.0-36.5); MEAN CORPUSCULAR VOLUME 82.1 fl (80.0-96.0); PLATELET COUNT, AUTOMATED 209 10^3/uL (150-450); RED BLOOD COUNT 4.02 10^6/uL (4.00-5.40); WHITE BLOOD COUNT 6.2 10^3/uL (4.0-10.0)
[2017-11-28 06:32] LABS: ANION GAP 6 MEQ/L (8-16); BLOOD UREA NITROGEN 23 MG/DL (7-18); CALCIUM LEVEL 8.7 MG/DL (8.8-10.2); CARBON DIOXIDE LEVEL 41 MEQ/L (21-32); CHLORIDE LEVEL 94 MEQ/L (98-107); CREATININE FOR GFR 1.71 MG/DL (0.55-1.30); GLOMERULAR FILTRATION RATE 31.2 (>39); GLUCOSE, FASTING 257 MG/DL (70-100); MAGNESIUM LEVEL 2.4 MG/DL (1.8-2.4); SODIUM LEVEL 141 MEQ/L (136-145)
[2017-11-28] MEDS: LACTULOSE 20 GM/30 ML SYRUP UD PO ×2 (08:09→21:51)
[2017-11-28] MEDS: SCOPOLAMINE 1MG TRANSDERMAL PATCH TD (08:09)
[2017-11-28] MEDS: PREGABALIN 75 MG CAP(LYRICA) PO ×2 (08:10→21:51)
[2017-11-28] MEDS: TORSEMIDE 20 MG TAB PO ×2 (08:10→17:28)
[2017-11-28] MEDS: SODIUM CHLORIDE 0.9% INJ 10 ML SYR IV (08:11)
[2017-11-28] MEDS: levETIRAcetam 250MG TABLET (KEPPRA) PO ×2 (08:11→21:51)
[2017-11-28] MEDS: HumaLOG INSULIN (NovoLOG) PER UNIT SC ×4 (08:11→21:54)
[2017-11-28] MEDS: DOCUSATE SODIUM 100 MG CAP PO ×2 (08:12→21:51)
[2017-11-28] MEDS: LACTIC ACID 12% LOTION 225 GM BTL TOP ×2 (08:12→21:52)
[2017-11-28] MEDS: SPIRONOLACTONE 25 MG TAB PO (08:12)
[2017-11-28] MEDS: OMEPRAZOLE 20 MG CAP PO ×2 (08:12→21:51)
[2017-11-28] MEDS: METOCLOPRAMIDE 5 MG TAB PO ×3 (08:12→17:28)
[2017-11-28] MEDS: BISOPROLOL FUM 2.5 MG PER 1/2TAB PO (08:12)
[2017-11-28] MEDS: ALLOPURINOL 300 MG TAB PO (08:13)
[2017-11-28] MEDS: ERYTHROMYCIN OPHTH OINT OS ×4 (08:13→21:53)
[2017-11-28] MEDS: ATORVASTATIN 10 MG TAB PO (08:13)
[2017-11-28 11:39] LABS: BEDSIDE GLUCOSE 242 MG/DL (83-110)
[2017-11-28] MEDS: rOPINIRole 1MG TAB PO (16:14)
[2017-11-28 17:07] LABS: BEDSIDE GLUCOSE 375 MG/DL (83-110)
[2017-11-28] MEDS: ERTAPENEM SODIUM 1 GM in NS MINI-BAG PLUS 50 ML IV (17:27)
[2017-11-28 19:59] LABS: BEDSIDE GLUCOSE 323 MG/DL (83-110)
[2017-11-28] MEDS: rOPINIRole 2MG TAB PO (21:51)
[2017-11-28] MEDS: BETAMETHASONE VAL 0.1% OINT 15 GM TOP (21:55)
[2017-11-29] MEDS: ONDANSETRON 4MG/2ML VIAL (J2405) IV (01:38)
[2017-11-29] MEDS: SODIUM CHLORIDE 0.9% INJ 10 ML SYR IV ×2 (01:40→08:40)
[2017-11-29] MEDS: HEPARIN SOD (PORCINE) 5000 UNITS/ML VIAL SC (06:11)
[2017-11-29] MEDS: LEVEMIR (INSULIN DETEMIR) 1 UNITS/0.01ML SC (06:11)
[2017-11-29 06:29] LABS: BEDSIDE GLUCOSE 306 MG/DL (83-110)
[2017-11-29] MEDS: LACTULOSE 20 GM/30 ML SYRUP UD PO (08:38)
[2017-11-29] MEDS: levETIRAcetam 250MG TABLET (KEPPRA) PO (08:39)
[2017-11-29] MEDS: ATORVASTATIN 10 MG TAB PO (08:39)
[2017-11-29] MEDS: ALLOPURINOL 300 MG TAB PO (08:39)
[2017-11-29] MEDS: ERYTHROMYCIN OPHTH OINT OS ×2 (08:39→12:35)
[2017-11-29] MEDS: METOCLOPRAMIDE 5 MG TAB PO ×2 (08:39→11:32)
[2017-11-29] MEDS: HumaLOG INSULIN (NovoLOG) PER UNIT SC ×2 (08:39→12:34)
[2017-11-29] MEDS: DOCUSATE SODIUM 100 MG CAP PO (08:39)
[2017-11-29] MEDS: OMEPRAZOLE 20 MG CAP PO (08:40)
[2017-11-29] MEDS: BISOPROLOL FUM 2.5 MG PER 1/2TAB PO (08:40)
[2017-11-29] MEDS: TORSEMIDE 20 MG TAB PO (08:40)
[2017-11-29] MEDS: SPIRONOLACTONE 25 MG TAB PO (08:40)
[2017-11-29] MEDS: PREGABALIN 75 MG CAP(LYRICA) PO (08:40)
[2017-11-29] MEDS: LACTIC ACID 12% LOTION 225 GM BTL TOP (08:41)
[2017-11-29] MEDS: PERCOCET 5MG/325MG TAB PO (11:33)
[2017-11-29 11:45] LABS: HEMOGLOBIN 9.3 g/dl (12.0-15.5); MEAN CORPUSCULAR HEMOGLOBIN 23.2 pg (27.0-33.0); MEAN CORPUSCULAR HGB CONC 28.2 g/dl (32.0-36.5); MEAN CORPUSCULAR VOLUME 82.3 fl (80.0-96.0); PLATELET COUNT, AUTOMATED 228 10^3/uL (150-450); RED BLOOD COUNT 4.01 10^6/uL (4.00-5.40); WHITE BLOOD COUNT 6.1 10^3/uL (4.0-10.0)
[2017-11-29 12:04] LABS: BEDSIDE GLUCOSE 248 MG/DL (83-110)
[2017-11-29 13:00] LABS: ANION GAP 6 MEQ/L (8-16); BLOOD UREA NITROGEN 23 MG/DL (7-18); CALCIUM LEVEL 8.7 MG/DL (8.8-10.2); CARBON DIOXIDE LEVEL 38 MEQ/L (21-32); CHLORIDE LEVEL 95 MEQ/L (98-107); CREATININE FOR GFR 1.69 MG/DL (0.55-1.30); GLOMERULAR FILTRATION RATE 31.6 (>39); GLUCOSE, FASTING 225 MG/DL (70-100); POTASSIUM SERUM 4.3 MEQ/L (3.5-5.1); SODIUM LEVEL 139 MEQ/L (136-145)
[2017-12-03] MEDS ORDERED: VITAMIN D 50,000 UNITS CAPSULE (ERGOCALCIFEROL 1.25MG) PO (09:00)
== END 2017-11-29 14:28 | disposition home health service (06) | DRG 690 ==
LOC: M MSPAV 11-20 13:34 → M ED 13:23 → M ED INP 19:55
DX: N39.0 Urinary tract infection, site not specified (principal); Z68.41 Body mass index [BMI] 40.0-44.9, adult; E87.2 Acidosis; N17.9 Acute kidney failure, unspecified; T84.030A Mechanical loosening of internal right hip prosthetic joint, initial encounter; E66.2 Morbid (severe) obesity with alveolar hypoventilation; I50.32 Chronic diastolic (congestive) heart failure; I13.0 Hypertensive heart and chronic kidney disease with heart failure and stage 1 through stage 4 chronic kidney disease, or unspecified chronic kidney disease; N18.3 Chronic kidney disease, stage 3 (moderate); E11.42 Type 2 diabetes mellitus with diabetic polyneuropathy; K31.84 Gastroparesis; B96.29 Other Escherichia coli [E. coli] as the cause of diseases classified elsewhere; Z79.899 Other long term (current) drug therapy; G47.33 Obstructive sleep apnea (adult) (pediatric); J45.909 Unspecified asthma, uncomplicated; G40.909 Epilepsy, unspecified, not intractable, without status epilepticus; G43.909 Migraine, unspecified, not intractable, without status migrainosus; M10.9 Gout, unspecified; K21.9 Gastro-esophageal reflux disease without esophagitis; K58.8 Other irritable bowel syndrome; Z86.718 Personal history of other venous thrombosis and embolism; Z88.0 Allergy status to penicillin; Z91.040 Latex allergy status; Z88.8 Allergy status to other drugs, medicaments and biological substances; F32.9 Major depressive disorder, single episode, unspecified; M79.1 Myalgia; G25.81 Restless legs syndrome; D50.9 Iron deficiency anemia, unspecified; E55.9 Vitamin D deficiency, unspecified; E78.5 Hyperlipidemia, unspecified

== ENCOUNTER → 2017-12-08 | Outpatient (REF) | payer MEDICARE, MEDICAID | LOC: M LAB REF 10:20 | DX: R19.7 Diarrhea, unspecified (principal) | CPT/HCPCS: 87507 ==

== ENCOUNTER → 2017-12-08 | Outpatient (CLI) | payer MEDICARE, MEDICAID | LOC: M PAIN 13:00 | DX: M54.2 Cervicalgia (principal); M79.1 Myalgia; I11.0 Hypertensive heart disease with heart failure; G43.909 Migraine, unspecified, not intractable, without status migrainosus; R56.9 Unspecified convulsions; E11.9 Type 2 diabetes mellitus without complications; J45.909 Unspecified asthma, uncomplicated; I50.9 Heart failure, unspecified; Z85.828 Personal history of other malignant neoplasm of skin; N28.9 Disorder of kidney and ureter, unspecified; Z79.4 Long term (current) use of insulin; Z79.82 Long term (current) use of aspirin; Z79.899 Other long term (current) drug therapy; R33.9 Retention of urine, unspecified; Z87.440 Personal history of urinary (tract) infections; K21.9 Gastro-esophageal reflux disease without esophagitis; R32 Unspecified urinary incontinence; Z96.641 Presence of right artificial hip joint; Z88.5 Allergy status to narcotic agent; Z88.0 Allergy status to penicillin; Z88.2 Allergy status to sulfonamides; Z88.8 Allergy status to other drugs, medicaments and biological substances; Z88.1 Allergy status to other antibiotic agents | CPT/HCPCS: G0463 ==

== ENCOUNTER → 2017-12-21 | Outpatient (REF) | payer MEDICARE, MEDICAID | LOC: M LAB REF 17:36 | DX: R30.0 Dysuria (principal) | CPT/HCPCS: 87186 ==

== ENCOUNTER → 2018-01-13 | Outpatient (REF) | payer MEDICARE, MEDICAID ==
[2018-01-13 12:49] LABS: APPEARANCE, URINE HAZY (CLEAR); BACTERIA, URINE AUTO NEGATIVE (NEGATIVE); BILIRUBIN, URINE AUTO NEGATIVE (NEGATIVE); BLOOD, URINE BLOOD NEGATIVE (NEGATIVE); COLOR, URINE YELLOW (YELLOW); GLUCOSE, URINE (UA) AUTO NEGATIVE (NEGATIVE); KETONE, URINE AUTO NEGATIVE (NEGATIVE); LEUKOCYTE ESTERASE, URINE AUTO 3+ (NEGATIVE); MUCUS, URINE SMALL (NEGATIVE); NITRITE, URINE AUTO NEGATIVE (NEGATIVE); PROTEIN, URINE AUTO NEGATIVE (NEGATIVE); RBC, URINE AUTO 1 /HPF (0-3); SPECIFIC GRAVITY URINE AUTO 1.012 (1.002-1.035); SQUAMOUS EPITHELIAL CELL UR AU 0 /HPF (0-6); UROBILINOGEN, URINE AUTO 0.2 mg/dL (0.0-2.0); WBC, URINE AUTO 52 /HPF (0-3)
== END ==
LOC: M SFHCPLAZ 12:28
DX: Z22.39 Carrier of other specified bacterial diseases (principal); B96.20 Unspecified Escherichia coli [E. coli] as the cause of diseases classified elsewhere
CPT/HCPCS: 81001

== ENCOUNTER 2018-01-23 20:25 | Inpatient (IN) | payer MEDICARE, MEDICAID ==
[2018-01-23] MEDS: NS 1,000 ML IV (21:30)
[2018-01-23] MEDS: ONDANSETRON 4MG/2ML VIAL (J2405) IV (21:30)
[2018-01-23] MEDS: LevoFLOXacin IV 500 MG in APPROPRIATE DILUENT 1 EA IV (21:45)
[2018-01-23 22:19] LABS: BASO # 0.1 10^3/uL (0.0-0.2); BASO % 0.8 % (0.0-1.0); EOS # 0.2 10^3/uL (0.0-0.50); EOS % 1.8 % (0.0-3.0); HEMATOCRIT 36.9 % (36.0-47.0); HEMOGLOBIN 10.2 g/dl (12.0-15.5); IMMATURE GRANULOCYTE % 0.4 % (0-3.0); LYMPH # 2.1 10^3/uL (1.5-4.5); LYMPH % 24.9 % (24.0-44.0); MEAN CORPUSCULAR HEMOGLOBIN 20.8 pg (27.0-33.0); MEAN CORPUSCULAR HGB CONC 27.6 g/dl (32.0-36.5); MEAN CORPUSCULAR VOLUME 75.3 fl (80.0-96.0); MONO # 0.9 10^3/uL (0.0-0.8); MONO % 10.7 % (0.0-5.0); NEUTROPHILS # 5.1 10^3/uL (1.8-7.7); NEUTROPHILS % 61.4 % (36.0-66.0); PLATELET COUNT, AUTOMATED 275 10^3/uL (150-450); RED CELL DISTRIBUTION WIDTH 17.8 % (11.5-14.5); WHITE BLOOD COUNT 8.3 10^3/uL (4.0-10.0)
[2018-01-23 22:29] LABS: INR 1.02; PROTHROMBIN TIME 13.5 SECONDS (12.1-14.4)
[2018-01-23 22:30] LABS: PARTIAL THROMBOPLASTIN TIME 43.4 SECONDS (25.4-37.6)
[2018-01-23] MEDS: MORPHINE 4 MG/ML 1ML VIAL/SYRINGE (J2270) IV (22:30)
[2018-01-23 22:32] LABS: KETONE, URINE AUTO RFX NEGATIVE (NEGATIVE); NITRITE, URINE AUTO RFX NEGATIVE (NEGATIVE); RBC, URINE AUTO RFX 4 /HPF (0-3); SPECIFIC GRAVITY UR AUTO RFX 1.009 (1.002-1.035); SQUAM EPITHELIAL CELL UR AURFX 0 /HPF (0-6)
[2018-01-23 22:34] LABS: LEUKOCYTE ESTERASE UR AUTO RFX 3+ (NEGATIVE); WBC, URINE AUTO RFX 53 /HPF (0-3)
[2018-01-23 22:38] LABS: C REACTIVE PROTEIN QUANTITATIV 0.58 MG/DL (0.00-0.30)
[2018-01-23 22:44] LABS: ALBUMIN 3.4 GM/DL (3.2-5.2); ALBUMIN/GLOBULIN RATIO 0.94 (1.00-1.93); ALKALINE PHOSPHATASE 116 U/L (45-117); ALT/SGPT 33 U/L (12-78); ANION GAP 8 MEQ/L (8-16); AST/SGOT 39 U/L (7-37); BILIRUBIN,DIRECT < 0.1 MG/DL (0.0-0.2); BILIRUBIN,TOTAL 0.3 MG/DL (0.2-1.0); BLOOD UREA NITROGEN 33 MG/DL (7-18); CALCIUM LEVEL 8.4 MG/DL (8.8-10.2); CARBON DIOXIDE LEVEL 32 MEQ/L (21-32); CHLORIDE LEVEL 101 MEQ/L (98-107); CREATININE FOR GFR 1.47 MG/DL (0.55-1.30); GLOMERULAR FILTRATION RATE 37.1 (>39); GLUCOSE, FASTING 184 MG/DL (70-100); POTASSIUM SERUM 3.8 MEQ/L (3.5-5.1); SODIUM LEVEL 141 MEQ/L (136-145)
[2018-01-23 22:47] LABS: LACTIC ACID SEPSIS PROTOCOL 1.8 MMOL/L (0.4-2.0)
[2018-01-24] MEDS ORDERED: ACETAMINOPHEN 650 MG SUPP PR
[2018-01-24] MEDS: MORPHINE 4 MG/ML 1ML VIAL/SYRINGE (J2270) IV ×4 (00:29→21:16)
[2018-01-24] MEDS ORDERED: NYSTATIN OINTMENT 15 GM TOP (00:30)
[2018-01-24] MEDS: ONDANSETRON 4MG/2ML VIAL (J2405) IV ×2 (05:43→08:47)
[2018-01-24 06:14] LABS: BASO # 0.1 10^3/uL (0.0-0.2); BASO % 1.2 % (0.0-1.0); EOS # 0.2 10^3/uL (0.0-0.50); EOS % 2.6 % (0.0-3.0); HEMATOCRIT 34.4 % (36.0-47.0); HEMOGLOBIN 9.4 g/dl (12.0-15.5); IMMATURE GRANULOCYTE % 0.4 % (0-3.0); LYMPH # 2.4 10^3/uL (1.5-4.5); LYMPH % 31.2 % (24.0-44.0); MEAN CORPUSCULAR HEMOGLOBIN 20.4 pg (27.0-33.0); MEAN CORPUSCULAR HGB CONC 27.3 g/dl (32.0-36.5); MEAN CORPUSCULAR VOLUME 74.8 fl (80.0-96.0); MONO # 0.7 10^3/uL (0.0-0.8); MONO % 9.7 % (0.0-5.0); NEUTROPHILS # 4.2 10^3/uL (1.8-7.7); NEUTROPHILS % 54.9 % (36.0-66.0); PLATELET COUNT, AUTOMATED 252 10^3/uL (150-450); RED CELL DISTRIBUTION WIDTH 17.8 % (11.5-14.5); WHITE BLOOD COUNT 7.7 10^3/uL (4.0-10.0)
[2018-01-24 06:26] LABS: ANION GAP 4 MEQ/L (8-16); BLOOD UREA NITROGEN 33 MG/DL (7-18); CARBON DIOXIDE LEVEL 35 MEQ/L (21-32); CHLORIDE LEVEL 104 MEQ/L (98-107); CREATININE FOR GFR 1.36 MG/DL (0.55-1.30); GLOMERULAR FILTRATION RATE 40.6 (>39); GLUCOSE, FASTING 58 MG/DL (70-100); SODIUM LEVEL 143 MEQ/L (136-145)
[2018-01-24] MEDS: IPRATROPIUM 0.5MG/ALBUTEROL 2.5MG INH SOL UD 3ML (DUONEB)(J7620) NEB ×3 (07:53→21:48)
[2018-01-24] MEDS: HEPARIN SOD (PORCINE) 5000 UNITS/ML VIAL SC ×2 (08:00→21:15)
[2018-01-24] MEDS: HumaLOG INSULIN (NovoLOG) PER UNIT SC ×4 (08:47→20:06)
[2018-01-24] MEDS: SODIUM CHLORIDE 0.9% INJ 10 ML SYR IV (08:48)
[2018-01-24] MEDS: PREGABALIN 75 MG CAP(LYRICA) PO ×2 (09:00→21:15)
[2018-01-24] MEDS: oxyBUTYnin *DITROPAN XL* 5 MG TABCR PO (09:00)
[2018-01-24] MEDS: DULoxetine 30 MG CAP (CYMBALTA) PO ×2 (09:00→21:14)
[2018-01-24] MEDS: POTASSIUM CHLORIDE 10 MEQ SR TABLET PO (09:00)
[2018-01-24] MEDS: PANTOPRAZOLE 40MG INJ (PROTONIX) (C9113) IV (09:00)
[2018-01-24] MEDS: BISOPROLOL FUMARATE 5 MG TAB PO (09:00)
[2018-01-24] MEDS: ATORVASTATIN 10 MG TAB PO (09:00)
[2018-01-24] MEDS: LACTULOSE 20 GM/30 ML SYRUP UD PO ×2 (09:00→21:14)
[2018-01-24] MEDS: SPIRONOLACTONE 25 MG TAB PO ×2 (09:00→21:15)
[2018-01-24] MEDS: DOCUSATE SODIUM 100 MG CAP PO ×2 (09:00→21:15)
[2018-01-24] MEDS: levETIRAcetam 250MG TABLET (KEPPRA) PO ×2 (09:00→21:15)
[2018-01-24] MEDS: ALLOPURINOL 300 MG TAB PO (09:00)
[2018-01-24 11:49] LABS: BEDSIDE GLUCOSE 58 MG/DL (83-110)
[2018-01-24] MEDS: NS 1,000 ML IV ×3 (13:20→17:06)
[2018-01-24] MEDS: LACTIC ACID 12% LOTION 225 GM BTL TOP ×2 (13:35→21:18)
[2018-01-24] MEDS: TRIAMCINOLONE ACETONIDE 0.025 % 80 GM CREAM TOP ×2 (13:36→21:18)
[2018-01-24] MEDS ORDERED: DEXTROSE 50% 50 ML SYRINGE IV (14:00)
[2018-01-24] MEDS ORDERED: GLUCOSE 4 GM CHEW TABLET PO (14:00)
[2018-01-24] MEDS ORDERED: GLUCAGON FOR INJ 1 MG VIAL (J1610) SC (14:00)
[2018-01-24 17:03] LABS: BEDSIDE GLUCOSE 141 MG/DL (83-110)
[2018-01-24] MEDS: METOCLOPRAMIDE 5 MG TAB PO (17:06)
[2018-01-24 19:48] LABS: BEDSIDE GLUCOSE 150 MG/DL (83-110)
[2018-01-24] MEDS: rOPINIRole 1MG TAB PO (21:14)
[2018-01-24] MEDS: LEVEMIR (INSULIN DETEMIR) 1 UNITS/0.01ML SC (22:43)
[2018-01-25] MEDS: IPRATROPIUM 0.5MG/ALBUTEROL 2.5MG INH SOL UD 3ML (DUONEB)(J7620) NEB ×4 (01:33→21:12)
[2018-01-25] MEDS: MORPHINE 4 MG/ML 1ML VIAL/SYRINGE (J2270) IV ×3 (03:35→23:16)
[2018-01-25 05:48] LABS: BASO # 0.1 10^3/uL (0.0-0.2); BASO % 0.9 % (0.0-1.0); EOS # 0.2 10^3/uL (0.0-0.50); EOS % 2.7 % (0.0-3.0); HEMATOCRIT 32.9 % (36.0-47.0); HEMOGLOBIN 8.9 g/dl (12.0-15.5); IMMATURE GRANULOCYTE % 0.1 % (0-3.0); LYMPH # 1.8 10^3/uL (1.5-4.5); LYMPH % 26.4 % (24.0-44.0); MEAN CORPUSCULAR HEMOGLOBIN 20.7 pg (27.0-33.0); MEAN CORPUSCULAR HGB CONC 27.1 g/dl (32.0-36.5); MEAN CORPUSCULAR VOLUME 76.5 fl (80.0-96.0); MONO # 0.6 10^3/uL (0.0-0.8); MONO % 8.6 % (0.0-5.0); NEUTROPHILS # 4.3 10^3/uL (1.8-7.7); NEUTROPHILS % 61.3 % (36.0-66.0); PLATELET COUNT, AUTOMATED 224 10^3/uL (150-450)
[2018-01-25 06:09] LABS: ANION GAP 2 MEQ/L (8-16); BLOOD UREA NITROGEN 24 MG/DL (7-18); CALCIUM LEVEL 8.3 MG/DL (8.8-10.2); CARBON DIOXIDE LEVEL 34 MEQ/L (21-32); CHLORIDE LEVEL 106 MEQ/L (98-107); CREATININE FOR GFR 1.15 MG/DL (0.55-1.30); GLOMERULAR FILTRATION RATE 49.2 (>39); GLUCOSE, FASTING 94 MG/DL (70-100); POTASSIUM SERUM 3.9 MEQ/L (3.5-5.1); SODIUM LEVEL 142 MEQ/L (136-145)
[2018-01-25] MEDS: HumaLOG INSULIN (NovoLOG) PER UNIT SC ×4 (07:30→21:08)
[2018-01-25] MEDS: LACTULOSE 20 GM/30 ML SYRUP UD PO ×2 (08:13→21:24)
[2018-01-25] MEDS: DOCUSATE SODIUM 100 MG CAP PO ×2 (08:13→21:24)
[2018-01-25] MEDS: ALLOPURINOL 300 MG TAB PO (08:13)
[2018-01-25] MEDS: POTASSIUM CHLORIDE 10 MEQ SR TABLET PO (08:13)
[2018-01-25] MEDS: SPIRONOLACTONE 25 MG TAB PO ×2 (08:13→21:24)
[2018-01-25] MEDS: METOCLOPRAMIDE 5 MG TAB PO ×3 (08:13→17:04)
[2018-01-25] MEDS: oxyBUTYnin *DITROPAN XL* 5 MG TABCR PO (08:13)
[2018-01-25] MEDS: PREGABALIN 75 MG CAP(LYRICA) PO ×2 (08:13→21:24)
[2018-01-25] MEDS: levETIRAcetam 250MG TABLET (KEPPRA) PO ×2 (08:13→21:24)
[2018-01-25] MEDS: BISOPROLOL FUMARATE 5 MG TAB PO (08:14)
[2018-01-25] MEDS: DULoxetine 30 MG CAP (CYMBALTA) PO ×2 (08:14→21:24)
[2018-01-25] MEDS: PANTOPRAZOLE 40MG INJ (PROTONIX) (C9113) IV (08:14)
[2018-01-25] MEDS: HEPARIN SOD (PORCINE) 5000 UNITS/ML VIAL SC ×2 (08:14→21:25)
[2018-01-25] MEDS: ATORVASTATIN 10 MG TAB PO (08:14)
[2018-01-25] MEDS: LACTIC ACID 12% LOTION 225 GM BTL TOP ×2 (08:15→21:25)
[2018-01-25] MEDS: LEVEMIR (INSULIN DETEMIR) 1 UNITS/0.01ML SC ×2 (08:15→21:09)
[2018-01-25] MEDS: SODIUM CHLORIDE 0.9% INJ 10 ML SYR IV (08:15)
[2018-01-25] MEDS: TRIAMCINOLONE ACETONIDE 0.025 % 80 GM CREAM TOP ×2 (08:16→21:25)
[2018-01-25] MEDS: PREVNAR 13 VACCINE SYRINGE (CPT CODE:90670) IM (08:17)
[2018-01-25 11:39] LABS: BEDSIDE GLUCOSE 206 MG/DL (83-110)
[2018-01-25] MEDS: NS 1,000 ML IV (13:08)
[2018-01-25] MEDS: rOPINIRole 1MG TAB PO (21:24)
[2018-01-25] MEDS: LevoFLOXacin IV 750 MG in APPROPRIATE DILUENT 1 EA IV (21:24)
[2018-01-26] MEDS: IPRATROPIUM 0.5MG/ALBUTEROL 2.5MG INH SOL UD 3ML (DUONEB)(J7620) NEB ×4 (02:14→20:15)
[2018-01-26 03:04] LABS: BEDSIDE GLUCOSE 195 MG/DL (83-110)
[2018-01-26 03:04] LABS: BEDSIDE GLUCOSE 201 MG/DL (83-110)
[2018-01-26] MEDS: MORPHINE 4 MG/ML 1ML VIAL/SYRINGE (J2270) IV (03:47)
[2018-01-26 05:25] LABS: BASO % 0.7 % (0.0-1.0); EOS # 0.2 10^3/uL (0.0-0.50); EOS % 3.1 % (0.0-3.0); HEMATOCRIT 30.8 % (36.0-47.0); HEMOGLOBIN 8.2 g/dl (12.0-15.5); IMMATURE GRANULOCYTE % 0.5 % (0-3.0); LYMPH # 1.5 10^3/uL (1.5-4.5); LYMPH % 25.9 % (24.0-44.0); MEAN CORPUSCULAR HEMOGLOBIN 20.3 pg (27.0-33.0); MEAN CORPUSCULAR HGB CONC 26.6 g/dl (32.0-36.5); MEAN CORPUSCULAR VOLUME 76.4 fl (80.0-96.0); MONO # 0.6 10^3/uL (0.0-0.8); MONO % 9.6 % (0.0-5.0); NEUTROPHILS # 3.5 10^3/uL (1.8-7.7); NEUTROPHILS % 60.2 % (36.0-66.0); PLATELET COUNT, AUTOMATED 198 10^3/uL (150-450); RED BLOOD COUNT 4.03 10^6/uL (4.00-5.40); RED CELL DISTRIBUTION WIDTH 17.9 % (11.5-14.5); WHITE BLOOD COUNT 5.8 10^3/uL (4.0-10.0)
[2018-01-26 05:42] LABS: ANION GAP 5 MEQ/L (8-16); BLOOD UREA NITROGEN 20 MG/DL (7-18); CALCIUM LEVEL 8.5 MG/DL (8.8-10.2); CARBON DIOXIDE LEVEL 30 MEQ/L (21-32); CHLORIDE LEVEL 109 MEQ/L (98-107); CREATININE FOR GFR 1.14 MG/DL (0.55-1.30); GLOMERULAR FILTRATION RATE 49.7 (>39); GLUCOSE, FASTING 191 MG/DL (70-100); POTASSIUM SERUM 4.3 MEQ/L (3.5-5.1); SODIUM LEVEL 144 MEQ/L (136-145)
[2018-01-26] MEDS: HumaLOG INSULIN (NovoLOG) PER UNIT SC ×4 (08:02→21:00)
[2018-01-26] MEDS: DULoxetine 30 MG CAP (CYMBALTA) PO ×2 (08:03→21:57)
[2018-01-26] MEDS: PREGABALIN 75 MG CAP(LYRICA) PO ×2 (08:03→21:57)
[2018-01-26] MEDS: DOCUSATE SODIUM 100 MG CAP PO ×2 (08:03→21:56)
[2018-01-26] MEDS: SPIRONOLACTONE 25 MG TAB PO ×2 (08:03→21:56)
[2018-01-26] MEDS: METOCLOPRAMIDE 5 MG TAB PO ×3 (08:03→18:10)
[2018-01-26] MEDS: POTASSIUM CHLORIDE 10 MEQ SR TABLET PO (08:03)
[2018-01-26] MEDS: ALLOPURINOL 300 MG TAB PO (08:03)
[2018-01-26] MEDS: ATORVASTATIN 10 MG TAB PO (08:03)
[2018-01-26] MEDS: levETIRAcetam 250MG TABLET (KEPPRA) PO ×2 (08:03→21:57)
[2018-01-26] MEDS: LEVEMIR (INSULIN DETEMIR) 1 UNITS/0.01ML SC ×2 (08:04→22:06)
[2018-01-26] MEDS: BISOPROLOL FUMARATE 5 MG TAB PO (08:04)
[2018-01-26] MEDS: TRIAMCINOLONE ACETONIDE 0.025 % 80 GM CREAM TOP ×2 (08:05→21:59)
[2018-01-26] MEDS: SODIUM CHLORIDE 0.9% INJ 10 ML SYR IV (08:05)
[2018-01-26] MEDS: PANTOPRAZOLE 40MG INJ (PROTONIX) (C9113) IV (08:05)
[2018-01-26] MEDS: LACTIC ACID 12% LOTION 225 GM BTL TOP ×2 (08:05→21:58)
[2018-01-26] MEDS: HEPARIN SOD (PORCINE) 5000 UNITS/ML VIAL SC ×2 (08:05→21:56)
[2018-01-26] MEDS: LACTULOSE 20 GM/30 ML SYRUP UD PO ×2 (08:05→21:56)
[2018-01-26] MEDS: ERTAPENEM SODIUM 1 GM in NS MINI-BAG PLUS 50 ML IV (12:18)
[2018-01-26] MEDS: oxyBUTYnin *DITROPAN XL* 5 MG TABCR PO (12:20)
[2018-01-26] MEDS: PERCOCET 5MG/325MG TAB PO ×2 (12:20→22:06)
[2018-01-26 17:38] LABS: BEDSIDE GLUCOSE 188 MG/DL (83-110)
[2018-01-26 20:25] LABS: BEDSIDE GLUCOSE 161 MG/DL (83-110)
[2018-01-26] MEDS: rOPINIRole 1MG TAB PO (21:57)
[2018-01-27] MEDS: IPRATROPIUM 0.5MG/ALBUTEROL 2.5MG INH SOL UD 3ML (DUONEB)(J7620) NEB ×3 (02:00→14:05)
[2018-01-27] MEDS: SODIUM CHLORIDE 0.9% INJ 10 ML SYR IV ×2 (05:47→10:09)
[2018-01-27] MEDS: PERCOCET 5MG/325MG TAB PO (06:02)
[2018-01-27 06:40] LABS: ANION GAP 6 MEQ/L (8-16); BLOOD UREA NITROGEN 18 MG/DL (7-18); CALCIUM LEVEL 8.7 MG/DL (8.8-10.2); CARBON DIOXIDE LEVEL 29 MEQ/L (21-32); CHLORIDE LEVEL 108 MEQ/L (98-107); CREATININE FOR GFR 1.17 MG/DL (0.55-1.30); GLOMERULAR FILTRATION RATE 48.3 (>39); GLUCOSE, FASTING 164 MG/DL (70-100); POTASSIUM SERUM 4.6 MEQ/L (3.5-5.1); SODIUM LEVEL 143 MEQ/L (136-145)
[2018-01-27 07:06] LABS: BASO # 0.1 10^3/uL (0.0-0.2); BASO % 0.8 % (0.0-1.0); EOS # 0.2 10^3/uL (0.0-0.50); HEMATOCRIT 30.7 % (36.0-47.0); HEMOGLOBIN 8.5 g/dl (12.0-15.5); IMMATURE GRANULOCYTE % 0.4 % (0-3.0); LYMPH # 1.6 10^3/uL (1.5-4.5); MEAN CORPUSCULAR HEMOGLOBIN 20.9 pg (27.0-33.0); MEAN CORPUSCULAR HGB CONC 27.7 g/dl (32.0-36.5); MEAN CORPUSCULAR VOLUME 75.4 fl (80.0-96.0); MONO # 0.5 10^3/uL (0.0-0.8); MONO % 7.2 % (0.0-5.0); NEUTROPHILS # 4.9 10^3/uL (1.8-7.7); NEUTROPHILS % 66.6 % (36.0-66.0); PLATELET COUNT, AUTOMATED 204 10^3/uL (150-450); RED BLOOD COUNT 4.07 10^6/uL (4.00-5.40); RED CELL DISTRIBUTION WIDTH 17.9 % (11.5-14.5); WHITE BLOOD COUNT 7.4 10^3/uL (4.0-10.0)
[2018-01-27] MEDS: HEPARIN SOD (PORCINE) 5000 UNITS/ML VIAL SC (08:15)
[2018-01-27] MEDS: HumaLOG INSULIN (NovoLOG) PER UNIT SC ×2 (08:15→12:24)
[2018-01-27] MEDS: METOCLOPRAMIDE 5 MG TAB PO ×2 (08:18→12:23)
[2018-01-27] MEDS: LACTULOSE 20 GM/30 ML SYRUP UD PO (10:09)
[2018-01-27] MEDS: ATORVASTATIN 10 MG TAB PO (10:10)
[2018-01-27] MEDS: levETIRAcetam 250MG TABLET (KEPPRA) PO (10:10)
[2018-01-27] MEDS: POTASSIUM CHLORIDE 10 MEQ SR TABLET PO (10:11)
[2018-01-27] MEDS: ALLOPURINOL 300 MG TAB PO (10:11)
[2018-01-27] MEDS: PREGABALIN 75 MG CAP(LYRICA) PO (10:11)
[2018-01-27] MEDS: DULoxetine 30 MG CAP (CYMBALTA) PO (10:11)
[2018-01-27] MEDS: SPIRONOLACTONE 25 MG TAB PO (10:12)
[2018-01-27] MEDS: TRIAMCINOLONE ACETONIDE 0.025 % 80 GM CREAM TOP (10:13)
[2018-01-27] MEDS: LACTIC ACID 12% LOTION 225 GM BTL TOP (10:13)
[2018-01-27] MEDS: oxyBUTYnin *DITROPAN XL* 5 MG TABCR PO ×2 (10:13→10:22)
[2018-01-27] MEDS: DOCUSATE SODIUM 100 MG CAP PO (10:14)
[2018-01-27] MEDS: BISOPROLOL FUMARATE 5 MG TAB PO (10:22)
[2018-01-27] MEDS: LEVEMIR (INSULIN DETEMIR) 1 UNITS/0.01ML SC (10:22)
[2018-01-27] MEDS: PANTOPRAZOLE 40MG TAB (PROTONIX) PO (10:22)
[2018-01-27 11:34] LABS: BEDSIDE GLUCOSE 178 MG/DL (83-110)
[2018-01-27 12:01] LABS: BEDSIDE GLUCOSE 157 MG/DL (83-110)
[2018-01-27] MEDS: ERTAPENEM SODIUM 1 GM in NS MINI-BAG PLUS 50 ML IV (12:24)
== END 2018-01-27 16:10 | disposition home health service (06) | DRG 690 ==
LOC: M ED INP 01-24 → M MSPAV 01-24 02:19 → M ED 20:25
DX: N39.0 Urinary tract infection, site not specified (principal); E66.2 Morbid (severe) obesity with alveolar hypoventilation; K29.70 Gastritis, unspecified, without bleeding; N18.3 Chronic kidney disease, stage 3 (moderate); K21.9 Gastro-esophageal reflux disease without esophagitis; M10.9 Gout, unspecified; F32.9 Major depressive disorder, single episode, unspecified; E11.43 Type 2 diabetes mellitus with diabetic autonomic (poly)neuropathy; E78.5 Hyperlipidemia, unspecified; E11.65 Type 2 diabetes mellitus with hyperglycemia; G25.81 Restless legs syndrome; B96.20 Unspecified Escherichia coli [E. coli] as the cause of diseases classified elsewhere; G40.909 Epilepsy, unspecified, not intractable, without status epilepticus; G43.909 Migraine, unspecified, not intractable, without status migrainosus; I12.9 Hypertensive chronic kidney disease with stage 1 through stage 4 chronic kidney disease, or unspecified chronic kidney disease; J44.9 Chronic obstructive pulmonary disease, unspecified; E11.22 Type 2 diabetes mellitus with diabetic chronic kidney disease; M54.9 Dorsalgia, unspecified; Z86.718 Personal history of other venous thrombosis and embolism; Z86.711 Personal history of pulmonary embolism; Z87.440 Personal history of urinary (tract) infections; Z95.828 Presence of other vascular implants and grafts; Z90.710 Acquired absence of both cervix and uterus; Z79.4 Long term (current) use of insulin; Z79.51 Long term (current) use of inhaled steroids; Z91.040 Latex allergy status; Z88.1 Allergy status to other antibiotic agents; Z88.0 Allergy status to penicillin; Z88.2 Allergy status to sulfonamides; Z88.8 Allergy status to other drugs, medicaments and biological substances; Z68.38 Body mass index [BMI] 38.0-38.9, adult

== ENCOUNTER → 2018-02-15 | Outpatient (CLI) | payer MEDICARE, MEDICAID | LOC: M PAIN 13:00 | DX: M54.2 Cervicalgia (principal); M79.18 Myalgia, other site; M54.40 Lumbago with sciatica, unspecified side; E11.9 Type 2 diabetes mellitus without complications; I10 Essential (primary) hypertension; K21.9 Gastro-esophageal reflux disease without esophagitis; G43.909 Migraine, unspecified, not intractable, without status migrainosus; R56.9 Unspecified convulsions; Z79.4 Long term (current) use of insulin; Z79.82 Long term (current) use of aspirin; Z79.899 Other long term (current) drug therapy; Z88.0 Allergy status to penicillin; Z88.2 Allergy status to sulfonamides; Z88.5 Allergy status to narcotic agent; Z88.8 Allergy status to other drugs, medicaments and biological substances; Z96.641 Presence of right artificial hip joint; Z97.8 Presence of other specified devices; Z86.19 Personal history of other infectious and parasitic diseases; Z86.79 Personal history of other diseases of the circulatory system | CPT/HCPCS: G0463 ==

== ENCOUNTER → 2018-03-14 | Outpatient (REF) | payer MEDICARE, MEDICAID ==
[2018-03-14 18:59] LABS: BASO # 0.1 10^3/uL (0.0-0.2); BASO % 1.3 % (0.0-1.0); EOS # 0.3 10^3/uL (0.0-0.50); EOS % 5.2 % (0.0-3.0); HEMATOCRIT 35.7 % (36.0-47.0); HEMOGLOBIN 9.9 g/dl (12.0-15.5); IMMATURE GRANULOCYTE % 0.2 % (0-3.0); LYMPH # 2.2 10^3/uL (1.5-4.5); LYMPH % 35.4 % (24.0-44.0); MEAN CORPUSCULAR HEMOGLOBIN 20.4 pg (27.0-33.0); MEAN CORPUSCULAR HGB CONC 27.7 g/dl (32.0-36.5); MEAN CORPUSCULAR VOLUME 73.5 fl (80.0-96.0); MONO # 0.7 10^3/uL (0.0-0.8); NEUTROPHILS # 2.9 10^3/uL (1.8-7.7); NEUTROPHILS % 46.9 % (36.0-66.0); PLATELET COUNT, AUTOMATED 189 10^3/uL (150-450); RED BLOOD COUNT 4.86 10^6/uL (4.00-5.40); RED CELL DISTRIBUTION WIDTH 18.6 % (11.5-14.5); WHITE BLOOD COUNT 6.2 10^3/uL (4.0-10.0)
[2018-03-14 19:11] LABS: APPEARANCE, URINE CLEAR (CLEAR); BACTERIA, URINE AUTO NEGATIVE (NEGATIVE); BILIRUBIN, URINE AUTO NEGATIVE (NEGATIVE); BLOOD, URINE BLOOD NEGATIVE (NEGATIVE); COLOR, URINE YELLOW (YELLOW); GLUCOSE, URINE (UA) AUTO NEGATIVE (NEGATIVE); KETONE, URINE AUTO NEGATIVE (NEGATIVE); LEUKOCYTE ESTERASE, URINE AUTO 2+ (NEGATIVE); NITRITE, URINE AUTO NEGATIVE (NEGATIVE); PROTEIN, URINE AUTO NEGATIVE (NEGATIVE); RBC, URINE AUTO 1 /HPF (0-3); SPECIFIC GRAVITY URINE AUTO 1.006 (1.002-1.035); SQUAMOUS EPITHELIAL CELL UR AU 1 /HPF (0-6); UROBILINOGEN, URINE AUTO 0.2 mg/dL (0.0-2.0); WBC, URINE AUTO 14 /HPF (0-3)
[2018-03-14 19:19] LABS: ALBUMIN 3.4 GM/DL (3.2-5.2); ALBUMIN/GLOBULIN RATIO 1.03 (1.00-1.93); ALKALINE PHOSPHATASE 103 U/L (45-117); ALT/SGPT 24 U/L (12-78); ANION GAP 9 MEQ/L (8-16); AST/SGOT 20 U/L (7-37); BILIRUBIN,TOTAL 0.3 MG/DL (0.2-1.0); BLOOD UREA NITROGEN 26 MG/DL (7-18); C REACTIVE PROTEIN QUANTITATIV 0.52 MG/DL (0.00-0.30); CALCIUM LEVEL 8.8 MG/DL (8.8-10.2); CARBON DIOXIDE LEVEL 31 MEQ/L (21-32); CHLORIDE LEVEL 100 MEQ/L (98-107); CREATININE FOR GFR 1.41 MG/DL (0.55-1.30); FERRITIN 10 NG/ML (8-252); GLOMERULAR FILTRATION RATE 38.9 (>39); GLUCOSE, FASTING 106 MG/DL (70-100); IRON (FE) 25 UG/DL (50-170); POTASSIUM SERUM 4.3 MEQ/L (3.5-5.1); SODIUM LEVEL 140 MEQ/L (136-145); TOTAL PROTEIN 6.7 GM/DL (6.4-8.2)
[2018-03-14 19:39] LABS: HEMATOCRIT 35.7 % (36.0-47.0)
[2018-03-14 19:42] LABS: ERYTHROCYTE SEDIMENTATION RATE 18 mm/hr (0-30)
[2018-03-14 20:34] LABS: ESTIMATED AVERAGE GLUCOSE 169 MG/DL (60-110); HEMOGLOBIN A1c 7.5 %
[2018-03-17 14:23] LABS: PRETREATED FOLATE FOR RBCFOL 11.3 NG/ML; RBC FOLATE 664 NG/ML (280-791)
== END ==
LOC: M LAB REF 16:19
DX: N18.4 Chronic kidney disease, stage 4 (severe) (principal); D64.9 Anemia, unspecified; E11.65 Type 2 diabetes mellitus with hyperglycemia
CPT/HCPCS: 83540

== ENCOUNTER → 2018-04-06 | Outpatient (CLI) | payer MEDICARE, MEDICAID ==
[~2018-04-06] MED LIST changes: +/ADVA50050; +/ADVA50050 IN; +/BISO10TA OR; +/BISO10TA PO; +/CLOT10TR MT; +/DULO30CA; +/GLIM2TA; +/GLIP10TAB OR; +/METO25TA PO; +/MOXI40TA OR; +/ONDA4TA; +/ONDA4TA OR; +/SCOPPA TD; +/SCOPPA TOP; +/SUCR1TA OR; +/TIOT18INH INH; +ACET65TA; +ACET65TA OR; +ADVA115A INH; +ALBU17IN INH; +ALBU83IN IN; +ALBU83IN INH; +ALDA25TA2 PO; +ALLE25CA; +ALLE25CA OR; +ALLE25CA PO; +ALLO15TA GT; +AMIT24CA7 PO; +AMLO5TAB6 PO; +AMMO12CR4 EX; +AMMO12CR4 TOP; +AMMONIUM LACTATE; +ASPI1TAB PO; +ASPI325T; +ASPI325T OR; +ASPI81TA45 PO; +ASPI81TA83 OR; +ASPI81TA83 PO; +ASPI81TAEC PO; +ATARAX OR; +ATOR1TAB19 PO; +AVAP300T OR; +BABY81CH; +BACL10TA2; +BACL10TA2 OR; +BACL10TA2 PO; +BACL1TAB8 PO; +BACL1TAB9 PO; +BACT800T OR; +BALMEX; +BALMEX CREAM EXT; +BALMEX TOP; +BENZ-18 PO; +BENZ200C70 PO; +BETA115CR TOP; +BETA1OI TOP; +BISO10TA PO; +BISO5TAB5 PO; +BISOPROLOL PO; +BREO1INH INH; +BUPIVACAINE; -BUPIVACAINE HCL 0.25% 10 ML VIAL As Ordered; -BUPIVACAINE HCL 0.25% 30 ML VIAL As Ordered; +CALAMINE LOTION; +CALAMINE LOTION EXT; +CALC0.5C6 PO; +CALC1CAP31 PO; +CARA1SUS; +CEPHULAC PO; +CIPR-249 PO; +CIPR-250 PO; +CIPR250T3 PO; +CIPR500T3 PO; +CLEO300C2 PO; +CLON0.1D3; +CLOTPOW; +COLA100C2; +COLA100C2 OR; +COLA100C2 PO; +COLC1TAB13 PO; +COMBIVENT; +COMBVENT; +COMBVENT INH; +COUM1TAB17 PO; +CRAN500C2 PO; +DEMA100T PO; +DEMA10TA; +DEMA20TA; +DEMA20TA6 PO; +DEMADEX; +DESONIDE; +DILA2TAB; +DOCU100C16 PO; +DOCU10CA PO; +DOXY100T OR; +DRIS50003 PO; +DULO1CAP3 PO; +DULO30CA PO; +DUONSOL IN; +ECOT325T5 OR; +ERYT5OPO OS; +ESTR1CRE PV; +ESTR625TA OR; +ESTR625TA PO; +FERGON PO; +FERR325T; +FERR32TA PO; +FERROUS GLUCONATE PO; +FIOR1CAP2 PO; +FIORICET OR; +FLEET ENEMA PR; +FLOM0.4C39 PO; +FLON0.05; +FLOVENT INH; +FLUC10TA; +FLUC150T PO; +FLUO20CA8 PO; +FLUT11IN; +FLUT11IN IN; +FLUT11IN INH; +FOLI1TAB OR; +Fioricet PO; +GLUC5TAB3 OR; +GUAI1TAB PO; +GUAIPOW OR; +HALO0.052 TOP; +HEPARIN; +HEPARIN FLUSH; +HEPARIN FLUSH IVFLUSH; +HEPARIN LOCK FLUSH IV; +HUMU500S2 SC; +HYDR25TA7; +HYDR4TAB; +HYDR4TAB OR; +HYDR4TAB PO; +HYDR50TA8 OR; +HYDROCORTISONE0.5 %; +HYDROCORTISONE0.5 % EXT; +HYDROXYZINE OR; +INCR1INH IN; +INCR1INH INH; +INSUDET SC; +INSUH10VL SC; +INSUHUMDS SC; +INSULADS INJ; +INSULADS SC; +INSULANT SC; +INSULIN LANTUS SC; +IPRA0.00 INH; +IPRA0.00 NEB; +JANUVIA OR; +JANUVIA PO; +KEPP1TAB PO; +KEPP250T5 PO; +KEPPRA OR; +KEPPRA PO; +KETO0.05 TOP; +KETO0.5S15 OD; +KLOR10TA76 PO; +KLOR1TAB73 PO; +LACT10SO29 PO; +LACT10SO8; +LACT10SO8 OR; +LANTUS INSULIN SC; +LASI80TA PO; +LEVA250T13 PO; +LEVA500T OR; +LEVA750T7 PO; +LEVE250T5 PO; +LEVO500T3 PO; +LIDO1OIN2 TOP; +LIDO5OIN28 TOP; -LIDOCAINE 1% SDV INJ 30 ML VIAL As Ordered; +LOPR50TA OR; +LORA0.5T OR; +LYRI150C PO; +LYRI75CA PO; +MAALSUS; +MAALSUS OR; +MAALSUS PO; +MACR50CA OR; +MACROBID OR; +MACROBID PO; +MARCAINE; +MARCAINE INJ; +METO10TA2 OR; +METO10TA2 PO; +METO25TA PO; +METO25TA2; +METO25TA2 OR; +METO5TA PO; +MILK120011 PO; +MILKSUS OR; +MIRA3350 PO; +MIRALEX OR; +MORPHINE; +MUCI600T31 PO; +MUCI600T37 PO; +MUCINEX; +NAPR500T81; +NAPRPOW4; +NITR-67 PO; +NOVALOG INSULIN SC; +NOVOINJ3 SC; +NOVOLOG100 MG/ML SC; +NYST10CR TOP; +NYST1POW9; +NYST1POW9 TOP; +NYSTATIN; +NYSTATIN EXT; +NYSTATIN POWDER; +NYSTATIN POWDER TOP; +NYSTATIN TOP; +NYSTOI TOP; +NYSTPOW4 TOP; +OMEP20CA3 PO; +OMEP20TA7 OR; +ONDA4TAB5 PO; +OXYB10TA PO; +OXYC10TA12; +OXYC10TA56 OR; +OXYC1TAB23 PO; +OXYC5CAP4; +OXYC5CAP4 OR; +OXYC5CAP4 PO; +PAIN PUMP; +PAIN325T; +PAIN325T OR; +PAXI20TA; +PEG1POW PO; +PERCOCET PO; +PHEN 25; +PHEN 25 OR; +PHEN 25 PO; +PHENERGAN; +POTA10CA2; +POTA10CA32 PO; +POTA20TA2; +POTA20TA2 OR; +POTA50TAB PO; +POTASSIUM CLORIDE OR; +POTASSIUM OR; +PRED10PA PO; +PRED10PA2 PO; +PRED10TA2; +PRED10TA2 OR; +PRED10TA2 PO; +PRED20TA OR; +PRED5TA PO; +PRED5TAB OR; +PREDOPD OD; +PREG100CA PO; +PREG25CA; +PREG50CA PO; +PREM0.9T; +PRIALT INJ; +PRIL20CA; +PRIL20CA OR; +PROAAER10 INH; +PROM-190 PO; +PROM25TA12 PO; +PROZ20CA; +PROZ20CA OR; +PROZ40CA PO; +Pain Pump; +REGL10TA6 PO; +REST0.05 OU; +RESTASIS 0.05% OU; +ROBITUSSIN OR; +ROBITUSSIN OTC OR; +ROBUTUSSIN; +ROCA0.5C PO; +ROPI1TAB PO; +SALINE FLUSH IV; +SALINE LOCK FLUSH IV; +SALISOL7; +SCOP1DIS TD; +SCOPOLAMINE TD; +SENN15TA2 OR; +SENN187T; +SENN187T OR; +SENN18TA PO; +SENN8.6T5 OR; +SENO8.6T5 PO; +SILVADENE; +SILVADENE CREAM; +SILVADENE TOP; +SIME125C; +SPIR-10 PO; +SPIR1CAP INH; +SPIR25TA2 OR; +STARLIX PO; +SUCR1TAB56 PO; +TIOT18INH INH; +TOPR25TA; +TORS100T PO; +TORS10TA3 PO; +TORS20TA2 OR; +TORS20TA2 PO; +TOUJ1.2I SC; +TRAM50TA2; +TRAM50TA2 OR; +TRAN1.5D2 TOP; +TRES1INJ2 SC; +TRIA25CR TOP; +TYLE325T5 PO; +TYLE650T35 PO; +VANC10005 INJ; +VANC125C2 PO; +VERA120C; +VERA120C PO; +VERA12TASA OR; +VERA1TAB10 PO; +VICT18IN SC; +VIGA0.02 OD; +VITA500047 PO; +VITA50005 PO; +VOLT1GEL15 TD; +XARE15TA PO; +XARE20TA PO; +Z PACK; +ZARO2.5T OR; +ZITH500T; +ZOFR4TAB14 PO; +ZOFR4TAB16 PO; +ZOFR8TAB; +ZYLE0.5S OU; +ZYLO300T6 PO; +[UNRECOGNIZED DRUG - CODE] IT; +[UNRECOGNIZED DRUG - CODE] IT; +[UNRECOGNIZED DRUG - CODE] PO; +[UNRECOGNIZED DRUG - CODE] PO; +[UNRECOGNIZED DRUG - CODE] PV; +[UNRECOGNIZED DRUG - OTHER]; +[UNRECOGNIZED DRUG - OTHER]; +[UNRECOGNIZED DRUG - OTHER]; +[UNRECOGNIZED DRUG - OTHER] OR; +guaifenesin; +home o2; +hydroxyzine; +lopressor; +oxygen; +starlix PO
--- NOTE | 2018-04-06 14:52 | REP ---
REASON: Attention left great toe. Two limited views were obtained, AP and lateral. Two views can not rule out a fracture. There are no priors for comparison. The bones are markedly demineralized and marked degenerative changes are seen throughout the digits particularly digits four through 5. More moderate degenerative changes are seen involving the mid foot region. Postoperative change is seen involving the hindfoot and ankle region. These two views show no evidence of a fracture of the great toe. IMPRESSION:Chronic changes and limitations as described above. Electronically Signed by Garett Olsen DO 04/06/2018 03:15 P
== END ==
LOC: M SMT 14:07
PROVIDERS: ATTEND Internal Medicine Nephrology
DX: S92.415A Nondisplaced fracture of proximal phalanx of left great toe, initial encounter for closed fracture (principal); M19.072 Primary osteoarthritis, left ankle and foot; Z79.899 Other long term (current) drug therapy

== ENCOUNTER → 2018-04-06 | Outpatient (REF) | payer MEDICARE, MEDICAID ==
[~2018-04-06] MED LIST changes: -PEG1POW PO
== END ==
LOC: M LAB REF 17:23
PROVIDERS: ATTEND Internal Medicine Nephrology
DX: N39.0 Urinary tract infection, site not specified (principal)

== ENCOUNTER 2018-04-12 13:59 | Inpatient (IN) | payer MEDICARE, MEDICAID ==
[~2018-04-12] VITALS: Ht 167.6 cm; Wt 105.0 kg
[~2018-04-12 13:59] MED LIST changes: -FLOM0.4C39 PO
[2018-04-12 15:37] LABS: BASO # 0.1 10^3/uL (0.0-0.2); BASO % 1.1 % (0.0-1.0); EOS # 0.4 10^3/uL (0.0-0.50); EOS % 5.8 % (0.0-3.0); HEMOGLOBIN 9.8 g/dl (12.0-15.5); LYMPH # 2.2 10^3/uL (1.5-4.5); LYMPH % 33.5 % (24.0-44.0); MEAN CORPUSCULAR HEMOGLOBIN 20.8 pg (27.0-33.0); MEAN CORPUSCULAR VOLUME 74.3 fl (80.0-96.0); MONO # 0.8 10^3/uL (0.0-0.8); MONO % 12.8 % (0.0-5.0); NEUTROPHILS % 46.3 % (36.0-66.0); PLATELET COUNT, AUTOMATED 231 10^3/uL (150-450); RED BLOOD COUNT 4.71 10^6/uL (4.00-5.40); WHITE BLOOD COUNT 6.4 10^3/uL (4.0-10.0)
[2018-04-12 16:05] LABS: ALBUMIN 3.3 GM/DL (3.2-5.2); BILIRUBIN,DIRECT 0.1 MG/DL (0.0-0.2); BILIRUBIN,TOTAL 0.3 MG/DL (0.2-1.0); CALCIUM LEVEL 8.7 MG/DL (8.8-10.2); CREATININE FOR GFR 1.53 MG/DL (0.55-1.30); GLOMERULAR FILTRATION RATE 35.4 (>39); POTASSIUM SERUM 3.8 MEQ/L (3.5-5.1); TOTAL PROTEIN 6.5 GM/DL (6.4-8.2)
[2018-04-12] MEDS ORDERED: ERTAPENEM SODIUM 1 GM in NS MINI-BAG PLUS 50 ML IV ONE (16:15)
[2018-04-12] MEDS ORDERED: MORPHINE 4 MG/ML 1ML VIAL/SYRINGE (J2270) IV ONE (17:15)
[2018-04-12] MEDS ORDERED: TRES1INJ2 SC (17:27)
[2018-04-12] MEDS ORDERED: METO10TA2 PO (17:28)
[2018-04-12] MEDS ORDERED: NS 1,000 ML IV SCH (17:52)
[2018-04-12] MEDS ORDERED: GLUCOSE 4 GM CHEW TABLET PO PRN (18:00)
[2018-04-12] MEDS ORDERED: DEXTROSE 50% 50 ML SYRINGE IV PRN (18:00)
[2018-04-12] MEDS ORDERED: ALBUTEROL SULFATE 2.5 MG/0.5 ML INH NEB SOLN INH PRN (18:00)
[2018-04-12] MEDS ORDERED: GLUCAGON FOR INJ 1 MG VIAL (J1610) SC PRN (18:00)
[2018-04-12] MEDS ORDERED: BENZONATATE 100 MG CAP PO PRN (18:30)
[2018-04-12] MEDS ORDERED: guaiFENesin ER 600 MG TAB PO PRN (18:30)
--- NOTE | 2018-04-12 18:58 | HPEPDOC ---
General Date of Admission Apr 12, 2018 at 17:30 Primary Care Physician: Laura Kaufman Attending Physician: ALYSSIA MEYERS MD Chief Complaint The patient is a 72-year-old female admitted with a reason for visit of Uti, Chronis Kidney Disease. Source: Patient, RN notes reviewed, Old records Exam Limitations: No limitations History of Present Illness Ms. Stern is a 72-year-old female who presents to [facility]'s emergency Department with dysuria. Past medical history significant for dyslipidemia, diabetes mellitus, morbid obesity, hypertension, chronic obstructive pulmonary disease, history of deep venous thrombosis/pulmonary embolism, gout, migraine, seizure, gastroesophageal reflux disease, depression, chronic kidney disease, stage III, chronic back pain, obstructive sleep apnea, chronic and recurrent urinary tract infections with Escherichia coli as well as ESBL, history of Clostridium difficile infection, chronic hypoxic respiratory failure, obesity hypoventilation syndrome, restless leg syndrome, constipation, diastolic dysfunction with a left ventricular ejection fraction 6065%. Patient states that she has been experiencing dysuria with urinary frequency and urinary urgency since last week. She had a regular routine follow-up with local monitoring coordinator her change in urine for urinalysis and urine culture. Urine culture is positive for urinary tract infection with ESBL. Patient is not Al catheter dependent. Patient stated that she attempted self catheterization, but it was unsuccessful. She does not report any fevers although she does state that she alternates between hot and cold flashes. She has a headache that is all over and feels nauseous with dry heaving. She is not vomiting nor does she have abdominal pain. She does have chronic back pain which she currently rates at 7/10. She also reports pruritic brown skin rashes or isolated papules on her hands and thighs. Patient also reports a cough productive of yellow sputum. There are no sick contacts at home. She reports being up-to-date on her pneumonia and influenza vaccines. Patient states that she also has a red left great toe with some bruising around the second toe digit. She does not report any trauma to the area. Patient was most recently admitted from for urinary tract infection and gastritis. During this hospitalization patient was initially started on IV Levaquin which was continued at 750 mg every 48 hours. Urine culture returned and was positive for ESBL and patient was switched to IV ertapenem. Patient was discharged on IV ertapenem for 10 days. Emergency department evaluation reveals stable vital signs with a normal CBC. Renal insufficiency noted with a creatinine of 1.53. Patient has normal lactic acid. Urine culture from 04/06/2018 is positive for ESBL which is sensitive to ertapenem with an GORDY of <0.5. Hospitalist service was consulted and patient was referred medical management. Home Medications Scheduled (Amitiza) 24 Mcg Cap, 24 MCG PO QHS, (Reported) (Tresiba Flextouch) 100 Unit/Ml Inj, 80 UNIT SC DAILY, (Reported) Allopurinol (Zyloprim) 300 Mg Tab, 300 MG PO DAILY, (Reported) Ammonium Lactate (Ammonium Lactate) 12 % Cre, 1 DOSE TOP BID, (Reported) APPLY TO LEGS/FEET Atorvastatin Calcium (Atorvastatin Calcium) 10 Mg Tab, 10 MG PO DAILY, (Reported) Betamethasone Mala (Betamethasone Valerate) 45 Gm Oint, 1 DOSE TOP QHS, (Reported) USES ON LEGS FOR HOTSPOTS Bisoprolol Fumarate (Bisoprolol Fumarate) 5 Mg Tab, 2.5 MG PO DAILY, (Reported) Calcitriol (Calcitriol) 0.25 Mcg Cap, 0.25 MCG PO DAILY, (Reported) Colchicine (Colchicine) 0.6 Mg Tab, 0.6 MG PO DAILY, (Reported) Cranberry Extract (Cranberry) 500 Mg Cap, 500 MG PO TID, (Reported) Docusate Sodium (Docusate Sodium) 100 Mg Cap, 100 MG PO BID, (Reported) Duloxetine Hcl (Duloxetine HCl) 60 Mg Cap, 60 MG PO BID, (Reported) Ergocalciferol (Vitamin D) 50,000 Unit Cap, 50,000 UNIT PO MTHLY, (Reported) TAKES ON 1ST OF THE MONTH Estradiol (Estrace) 0.1 Mg/Gm Cre, 1 DOSE PV 3XW, (Reported) TAKES TUESDAY, TUESDAY AND TUESDAY AT QHS Insulin Human Lispro (Humalog) 1 Units/0.01 Ml Inj, 1 DOSE SC AC, (Reported) PER SLIDING SCALE < 70: TREAT LBS WITH 15 G CARBS 70 -90: 46, 46, 46 91-130: 52, 52, 52, 8 FOR NIGHT SNACK 131-150: 56, 56, 56, 10 FOR NIGHT SNACK 151-200: 60, 60, 60, 12 FOR NIGHT SNACK, 4 UNITS NPO 201-250: 66, 66, 66, 14 FOR NIGHT SNACK, 6 UNITS NPO 251-300: 72, 72, 72, 16 FOR NIGHT SNACK, 8 UNITS NPO 301-350: 78, 78, 78, 18 FOR NIGHT SNACK, 10 UNITS NPO 351-400: 82, 82, 82, 20 FOR NIGHT SNACK, 14 UNITS NPO 401-450: 86, 86, 86, 22 FOR NIGHT SNACK, 18 UNITS NPO > 450: 90, 90, 90, 24 FOR NIGHT SNACK, 22 UNITS NPO Lactulose (Lactulose) 10 Gm/15 Ml Kelli, 30 ML PO BID, (Reported) Levetiracetam (Keppra) 500 Mg Tab, 500 MG PO BID, (Reported) Levofloxacin Hemihydrate (Levofloxacin) 500 Mg Tab, 500 MG PO DAILY, (Reported) Metoclopramide HCl (Metoclopramide HCl) 10 Mg Tab, 10 MG PO TID, (Reported) Omeprazole (Omeprazole) 20 Mg Cap, 20 MG PO BID, (Reported) Oxybutynin Chloride (Oxybutynin Chloride ER) 10 Mg Tab, 10 MG PO DAILY, (Reported) Potassium Chloride (Klor-Con M10) 10 Meq Tabcr, 20 MEQ PO DAILY, (Reported) Pregabalin (Lyrica) 150 Mg Cap, 150 MG PO BID, (Reported) Ropinirole Hydrochloride (Ropinirole HCl) 1 Mg Tab, 2 MG PO DAILY, (Reported) TAKES AT 0630 Ropinirole Hydrochloride (Ropinirole HCl) 1 Mg Tab, 2 MG PO QHS, (Reported) Senna (Senna-Lax) 8.6 Mg Tab, 17.2 MG PO BID, (Reported) Spironolactone (Spironolactone) 25 Mg Tab, 25 MG PO BID, (Reported) Sucralfate (Sucralfate) 1 Gm Tab, 1 GM PO BID, (Reported) Torsemide (Torsemide) 20 Mg Tab, 60 MG PO BID, (Reported) Triamcinolone Acet (Triamcinolone Acetonide 0.025% Crm) 1 Dose/80 Gm Cream, 1 DOSE TOP BID, (Reported) APPLIES ON THIGHS Scheduled PRN Acetaminophen (Tylenol 8 Hour Arthritis) 650 Mg Tab, 650 MG PO Q8H PRN for PAIN, (Reported) Albuterol Sulfate (Albuterol Sulfate) 2.5 Mg/3 Ml Nebu, 2.5 MG INH Q4H PRN for SHORTNESS OF BREATH, (Reported) Benzonatate (Benzonatate) 100 Mg Cap, 100 MG PO TID PRN for COUGH, (Reported) Guaifenesin (Guaifenesin ER) 600 Mg Tab, 600 MG PO BID PRN for CONGESTION, (Reported) Halobetasol Propionate (Halobetasol Propionate) 0.05 % Cre, 1 DOSE TOP for RASH, (Reported) APPLIES UNDER FOLDS AND BREASTS Milk Of Magnesia (Milk of Magnesia) 1,200 Mg/15 Ml Esperanza, 30 ML PO DAILY PRN for CONSTIPATION, (Reported) Nystatin (Nystatin) 100,000 Unit/Gm Cre, 1 DOSE TOP BID PRN for RASH, (Reported) UNDER BREASTS AND GROIN AREA Nystatin (Nystatin Oint) 30 Gm Oint, 1 DOSE TOP TID PRN for RASH, (Reported) APPLIES AROUND VAGINAL AREA Ondansetron HCl (Ondansetron HCl) 4 Mg Tab, 4 MG PO QID PRN for NAUSEA OR VOMITING, (Reported) [Scopolamine] , 1 PATCH TD Q3RD PRN for NAUSEA OR VOMITING, (Reported) DOES NOT CURRENTLY HAVE ONE ON Allergies Coded Allergies: Cephalosporins (Verified Allergy, Intermediate, KEFLEX - HIVES, 01/23/18) Chlorpromazine (Verified Allergy, Intermediate, HIVES, 01/23/18) Loratadine (Verified Allergy, Intermediate, HIVES, 01/23/18) Penicillins (Verified Allergy, Intermediate, HIVES, 01/23/18) Pentazocine (Verified Allergy, Intermediate, HIVES, 01/23/18) Sulfa Antibiotics (Unverified Allergy, Intermediate, HIVES, 01/23/18) Methadone (Verified Allergy, Unknown, 01/23/18) Latex (Verified Adverse Reaction, Mild, RISK, 01/23/18) Past Medical History Medical History 1. Dyslipidemia 2. Diabetes mellitus 3. Morbid obesity 4. Hypertension 5. Chronic obstructive pulmonary disease 6. History of deep venous thrombosis/pulmonary embolism 7. Gout 8. Migraine 9. Seizure 10. Gastroesophageal reflux disease 11. Depression 12. Chronic kidney disease, stage III 13. Chronic back pain 14. Obstructive sleep apnea 15. Chronic and recurrent urinary tract infection with Escherichia coli as well as ESBL 16. History of cluster difficile infection 17. Chronic hypoxic respiratory failure 18. Obesity hypoventilation syndrome 19. Restless leg syndrome 20. Constipation 21. Diastolic dysfunction with left ventricular ejection fraction of 6065% Surgical History 1. Hysterectomy 2. Right hip arthroplasty 3. Tonsillectomy 4. Inferior vena cava filter 5. Anxiety 6. Left ankle open reduction internal fixation 7. Multiple rib the arthroscopic 8. Right diaphragm infiltration 9. Esophagogastroduodenoscopy 10. Colonoscopy 11. Arthroscopic subacromial decompression 12. Shoulder arthroscopy 13. Removal of left [id number] 14. Removal of subcutaneous intrathecal pump 15. TPA infusion Family History Father is at 85 years old from a myocardial infarction. Mother is dec eased at age 59 from cancer. The patient states that her mother smoked heavily and did drugs. Patient has 4 siblings. A brother who is age 75 with stage IV lung cancer. A sister who is 76 and another sister who is in her 50s who both have diabetes mellitus. Patient has a brother who is 77 and smokes. Social History Patient lives with her ex-. She has 3 children. One child is . The 2 remaining living children are age 56 and 54, both alive and healthy. The patient does not consume tobacco products. She does not smoke alcohol. She does not use illicit drugs. 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 She has no pets in the home. Review of Systems Constitutional: Reports: Chills, Night Sweats; Denies: Fever, Weakness Eyes: Denies: Vision change ENT: Reports: Head Aches; Denies: Dysphagia, Sinus Congestion, Post Nasal Drip, Sore Throat, Epistaxis Skin: Reports: Lesions (brown pruritic isolated papules noted on her extremities), Itching; Denies: Rash, Bruising Pulmonary: Reports: Cough (productive of yellow sputum); Denies: Dyspnea, Pleuritic Chest Pain Cardiovascular: Denies: Chest Pain, Palpitations, Orthopnea, Paroxysmal Noc. Dyspnea, Edema, Lt Headedness Gastrointestinal: Reports: Nausea; Denies: Vomiting, Abdominal Pain, Diarrhea, Constipation, Melena, Hematochezi a Genitourinary: Reports: Dysuria, Frequency, Other Symptoms (urinary urgency); Denies: Incontinence, Hematuria, Retention Hematologic: Denies: Bruising, Bleeding Excessively Endocrine: Denies: Polydipsia, Polyphagia Musculoskeletal: Reports: Back Pain, Foot Pain (left foot); Denies: Neck Pain, Joint Pain, Muscle Pain Neurological: Denies: Weakness, Numbness Physical Examination General Exam: Positive: Alert, Cooperative, No Acute Distress Eye Exam: Positive: PERRLA, Conjunctiva & lids normal, EOMI; Negative: Sclera icteric, Ptosis ENT Exam: Positive: Atraumatic, Pharynx Normal, Tongue Midline, Nares Patent; Negative: Mucous membr. moist/pink, Pharyngeal Edema Neck Exam: Positive: Supple, +2 carotid pulse wo bruit; Negative: JVD, thyromegaly, Lymphadenopathy Chest Exam: Positive: Clear to auscultation, Normal air movement; Negative: Rales, Rhonchi, Wheezing, Diminished Heart Exam: Positive: Rate Normal, Regular Rhythm, Normal S1, Normal S2; Negative: Irregular Rhythm, Gallops, Murmurs, Rubs Abdomen Exam: Positive: Normal bowel sounds, Soft, Other (several isolated small brown papules noted throughout abdomen); Negative: Tenderness, Hepatospenomegaly, Mass, Hernia Extremity Exam: Positive: Normal pulses, Other (left great hallux is erythematous, ecchymosis noted on the medial aspect of the second toe digit, peripheral pulses are appreciated, no other skin color changes are noted, and patient is able to wiggle all of her toes); Negative: Clubbing, Cyanosis, Edema, Tenderness, Swelling Skin Exam: Positive: Rash (several isolated pruritic brown papules noted upper extremities and abdomen) Neuro Exam: Positive: Normal Speech, Cranial Nerves 3-12 NL Psych Exam: Positive: Oriented x 3 Vital Signs Vital Signs Date Time Temp Pulse Resp B/P (MAP) Pulse Ox O2 Delivery O2 Flow Rate FiO2 04/12/18 17:54 20 04/12/18 16:59 98.2 78 131/60 (83) 93 Room Air Height (in): 66 Weight (kg): 103.64 BMI (kg): 36.9 Laboratory Data Labs 24H Laboratory Tests 2 04/12/18 14:12: Urine Color YELLOW, Urine Appearance CLEAR, Urine pH 6.0, Urine Specific [place] 1.006, Urine Protein NEGATIVE, Urine Glucose (UA) NEGATIVE, Urine Ketones N EGATIVE, Urine Blood NEGATIVE, Urine Nitrite NEGATIVE, Urine Bilirubin NEGATIVE, Urine Urobilinogen 0.2, Urine Leukocyte Esterase 3+H, Urine WBC (Auto) 28H, Urine RBC (Auto) 4H, Urine Hyaline Casts (Auto) 0, Urine Bacteria (Auto) 3+H, Urine Squamous Epithelial Cells 1, Urine Sperm (Auto) 04/12/18 15:26: Immature Granulocyte % (Auto) 0.5, White Blood Count 6.4, Red Blood Count 4.71, Hemoglobin 9.8L, Hematocrit 35.0L, Mean Corpuscular Volume 74.3L, Mean Corpuscular Hemoglobin 20.8L, Mean Corpuscular Hemoglobin Concent 28.0L, Red Cell Distribution Width 18.7H, Platelet Count 231, Neutrophils (%) (Auto) 46.3, Lymphocytes (%) (Auto) 33.5, Monocytes (%) (Auto) 12.8H, Eosinophils (%) (Auto) 5.8H, Basophils (%) (Auto) 1.1H, Neutrophils # (Auto) 3.0, Lymphocytes # (Auto) 2.2, Monocytes # (Auto) 0.8, Eosinophils # (Auto) 0.4, Basophils # (Auto) 0.1, Nucleated Red Blood Cells % (auto) 0.0, Anion Gap 6L, Glomerular Filtration Rate 35.4L, Lactic Acid Level 1.5, Calcium Level 8.7L, Aspartate Amino Transf (AST/SGOT) 24, Alanine Aminotransferase (ALT/SGPT) 25, Alkaline Phosphatase 108, Total Bilirubin 0.3, Direct Bilirubin 0.1, Total Protein 6.5, Albumin 3.3, Albumin/Globulin Ratio 1.03 CBC/BMP Laboratory Tests 04/12/18 15:26 Red Blood Count 4.71, Mean Corpuscular Volume 74.3 L, Mean Corpuscular Hemoglobin 20.8 L, Mean Corpuscular Hemoglobin Concent 28.0 L, Red Cell Distribution Width 18.7 H, Neutrophils (%) (Auto) 46.3, Lymphocytes (%) (Auto) 33.5, Monocytes (%) (Auto) 12.8 H, Eosinophils (%) (Auto) 5.8 H, Basophils (%) (Auto) 1.1 H, Neutrophils # (Auto) 3.0, Lymphocytes # (Auto) 2.2, Monocytes # (Auto) 0.8, Eosinophils # (Auto) 0.4, Basophils # (Auto) 0.1 Microbiology Microbiology 04/12/18 Blood Culture, Received Pending 04/12/18 Blood Culture, Received Pending 04/12/18 Urine Culture, Received Pending Plan / VTE VTE Prophylaxis Ordered?: Yes (heparin 5000 units subcutaneous daily) Plan Plan 1. Dysuria with urinary frequency and urinary urgency: Patient had a urinalysis with urine culture that was positive for ESBL. Patient has significant allergies. She responded well to IV ertapenem at her last admission in January 2018. Will restart ertapenem. Obtaining repeat urine culture. 2. Cough with productive sputum: Will obtain respiratory panel and sputum Gram stain and culture. Patient is afebrile with no leukocytosis. Continue Tessalon Perles and Mucinex. 3. Left great toe redness with bruising: No trauma. Will obtain a complete left foot x-ray. 4. Exacerbation of chronic back pain: Will start patient on Percocet. She tolerated this well at her last hospitalization. 5. Chronic kidney disease, stage III: Appears to be near baseline with a creatinine. Will continue spironolactone and torsemide. Will provide some fluid resuscitation with normal saline at 125 mLs per hour for 1 L. 6. Diabetes mellitus with gastroparesis and neuropathy: Start sliding scale insulin before meals and at bedtime, finger sticks before meals and at bedtime, and hypoglycemic protocol. Continue metoclopramide. Patient on full liquid diet secondary to some nausea with dry heaving. Will advance diet as tolerated. Continue lower. 7. Hypertension: Continue bisoprolol, spironolactone, and torsemide. 8. Obstructive pulmonary disease: Continue albuterol nebulizer as needed. 9. Depression: Continue duloxetine. 10. Seizure disorder: Continue Keppra. 11. Gastroesophageal reflux disease: Continue Prilosec. 12. Urinary retention: Continue oxybutynin. 13. Restless leg syndrome: Continue Requip. 14. Obstructive sleep apnea: Manpreet protocol. Disposition Admit: Medical surgical unit Anticipated hospitalization: 2 nights Attending: Dr. Duran IVF: Initiate (normal saline at 125 mLs per hour) Diet: Continue Current (. Diet) Activity: Continue Current Medications: Start Antibiotics (Ertapenem 1 g IV every 24 hours) Diagnostics: Check Labs, Repeat Labs in AM, Obtain Cultures (urine cultures, blood cultures), Xrays (left foot) Anticipated Discharge: Home Attending Note Attending Note I have both independently examined this patient as well as reviewed the H and P. I have discussed in detail w the resident the findings and the plan of treatment as documented in the residents note. KALEY DIAZ DO Apr 12, 2018 18:58 ALYSSIA MEYERS MD Apr 12, 2018 22:00
--- NOTE | 2018-04-12 19:29 | REP ---
LEFT FOOT SERIES: Three views of the left foot performed. Study is limited due to limitations with regards to patient positioning. There is metallic fixation in the hindfoot with a metallic richard and multiple metallic screws. There is narrowing, subchondral sclerosis and spurring at the tibiotalar joint. There is diffuse osteopenia. There is no definite acute fracture or dislocation of the visualized osseous structures. Electronically Signed by Sami Mesa MD 04/12/2018 08:11 P
[2018-04-12 20:35] VITALS: BP 134/63
[2018-04-12] MEDS: PERCOCET 5MG/325MG TAB PO PRN (21:03)
[2018-04-12] MEDS: DULoxetine 30 MG CAP (CYMBALTA) PO SCH (21:03)
[2018-04-12] MEDS: HEPARIN SOD (PORCINE) 5000 UNITS/ML VIAL SC SCH (21:04)
[2018-04-12] MEDS: OMEPRAZOLE 20 MG CAP PO SCH (21:04)
[2018-04-12] MEDS: PREGABALIN 75 MG CAP(LYRICA) PO SCH (21:04)
[2018-04-12] MEDS: levETIRAcetam 250MG TABLET (KEPPRA) PO SCH (21:04)
[2018-04-12] MEDS: rOPINIRole 1MG TAB PO SCH (21:04)
[2018-04-12] MEDS: SPIRONOLACTONE 25 MG TAB PO SCH (21:04)
[2018-04-12] MEDS: METOCLOPRAMIDE 10 MG TAB PO SCH (21:04)
[2018-04-12] MEDS: HumaLOG INSULIN (NovoLOG) PER UNIT SC SCH (21:05)
[2018-04-12] MEDS: TORSEMIDE 20 MG TAB PO SCH (21:08)
[2018-04-13] MEDS: ACETAMINOPHEN 650MG ER TAB (TYLENOL ARTHRITIS) PO PRN ×3 (01:04→22:38)
[2018-04-13] MEDS: PERCOCET 5MG/325MG TAB PO PRN ×3 (03:47→17:40)
[2018-04-13] MEDS: HEPARIN SOD (PORCINE) 5000 UNITS/ML VIAL SC SCH ×3 (05:51→22:29)
[2018-04-13] MEDS: rOPINIRole 1MG TAB PO SCH ×2 (05:52→22:30)
[2018-04-13 06:00] VITALS: BP 123/66
[2018-04-13 06:36] LABS: HEMATOCRIT 35.7 % (36.0-47.0); HEMOGLOBIN 9.8 g/dl (12.0-15.5); MEAN CORPUSCULAR HEMOGLOBIN 20.6 pg (27.0-33.0); MEAN CORPUSCULAR HGB CONC 27.5 g/dl (32.0-36.5); PLATELET COUNT, AUTOMATED 224 10^3/uL (150-450); RED BLOOD COUNT 4.76 10^6/uL (4.00-5.40); WHITE BLOOD COUNT 6.3 10^3/uL (4.0-10.0)
[2018-04-13 07:01] LABS: CALCIUM LEVEL 8.3 MG/DL (8.8-10.2); CREATININE FOR GFR 1.41 MG/DL (0.55-1.30); GLOMERULAR FILTRATION RATE 38.9 (>39); POTASSIUM SERUM 3.5 MEQ/L (3.5-5.1)
[2018-04-13] MEDS: HumaLOG INSULIN (NovoLOG) PER UNIT SC SCH ×4 (08:36→22:32)
[2018-04-13] MEDS: TORSEMIDE 20 MG TAB PO SCH ×2 (08:36→17:39)
[2018-04-13] MEDS: METOCLOPRAMIDE 10 MG TAB PO SCH ×3 (08:37→22:32)
[2018-04-13] MEDS: SPIRONOLACTONE 25 MG TAB PO SCH ×2 (08:37→22:31)
[2018-04-13] MEDS: PREGABALIN 75 MG CAP(LYRICA) PO SCH ×2 (08:37→22:30)
[2018-04-13] MEDS: levETIRAcetam 250MG TABLET (KEPPRA) PO SCH ×2 (08:37→22:31)
[2018-04-13] MEDS: BISOPROLOL FUM 2.5 MG PER 1/2TAB PO SCH (08:37)
[2018-04-13] MEDS: OMEPRAZOLE 20 MG CAP PO SCH ×2 (08:37→22:31)
[2018-04-13] MEDS: DULoxetine 30 MG CAP (CYMBALTA) PO SCH ×2 (08:37→22:30)
[2018-04-13] MEDS: ATORVASTATIN 10 MG TAB PO SCH (08:37)
[2018-04-13] MEDS: oxyBUTYnin *DITROPAN XL* 5 MG TABCR PO SCH (08:40)
[2018-04-13] MEDS ORDERED: NYSTATIN OINTMENT 15 GM TOP PRN (12:00)
[2018-04-13] MEDS ORDERED: NYSTATIN CREAM 15 GM TOP PRN (12:00)
[2018-04-13] MEDS ORDERED: MOM 30ML SUSPENSION UDC PO PRN (12:00)
[2018-04-13 14:00] VITALS: BP 127/59
[2018-04-13] MEDS: LACTIC ACID 12% LOTION 225 GM BTL TOP SCH ×2 (14:20→22:34)
[2018-04-13] MEDS: LACTULOSE 20 GM/30 ML SYRUP UD PO SCH ×2 (14:20→22:30)
[2018-04-13] MEDS: COLCHICINE 0.6 MG TAB PO SCH (14:21)
[2018-04-13] MEDS: TRIAMCINOLONE ACETONIDE 0.025 % 80 GM CREAM TOP SCH ×2 (14:21→22:33)
[2018-04-13] MEDS: DOCUSATE SODIUM 100 MG CAP PO SCH ×2 (14:22→22:32)
[2018-04-13] MEDS: SENNA 8.6 MG TAB (SENOKOT) PO SCH ×2 (14:22→22:31)
--- NOTE | 2018-04-13 14:34 | CR ---
DATE OF CONSULTATION: 04/13/2018 REQUESTING PROVIDER: Dr. Essie Duran. REASON FOR CONSULTATION: Treatment of extended spectrum beta lactamase (ESBL) urinary tract infection. HISTORY OF PRESENT ILLNESS: Ms. Stern is a very pleasant 72-year-old female who had been experiencing dysuria with urinary frequency and urgency for about the past week. At her routine followup appointment with her skiver uppers or linings, they performed a urinalysis and urine culture. Urine culture from 04/06/2018 was positive for ESBL E Coli that was sensitive to ertapenem with an GORDY of less 0.5. She states that along with the dysuria, she has had vaginal and groin irritation extending into her perianal area. She is unable to self-catheterize. She denies any fevers, though she states that she is having chills, she says that she drenched her sheets last night. She also states that her nausea from yesterday has improved, she denies vomiting or abdominal pain. She denies diarrhea. She had a little bit of a cough with yellow sputum yesterday, but has not had any today. She states that she thinks she was on an antibiotic but is not sure since [facility] does all of her medications for her, but she states that she may have been on doxycycline or Macrobid. Her home medications list Levaquin 500 mg by mouth daily. She continues to have chronic back pain, but has no other complaints. She states that she has intentionally lost about 30 pounds since her last admission and on longer requires oxygen during the day. PAST MEDICAL HISTORY: Significant for type 2 diabetes, morbid obesity, dyslipidemia, hypertension, chronic obstructive pulmonary disease (COPD), history of deep venous thrombosis (DVT) and pulmonary embolism, gout, migraine, seizure. Gastroesophageal reflux disease (GERD), depression, chronic kidney disease (CKD) stage 3, chronic back pain, obstructive sleep apnea (MATT), chronic and recurrent urinary tract infection with ESBL E Coli, history of C difficile infection, chronic hypoxic respiratory failure, obesity, hypoventilation syndrome, restless leg syndrome, constipation, end diastolic dysfunction with a left ventricular ejection fraction of 60-65%. Diabetic gastroparesis. SURGICAL HISTORY: IVC placement in 2015, hysterectomy, right hip arthroplasty, tonsillectomy, left ankle, open reduction internal fixation, multiple rib arthroscopic surgery, right diaphragm infiltration, esophagogastroduodenoscopy (EGD), colonoscopy, arthroscopic subacromial decompression, shoulder arthroscopy, removal of left Infusaport, removal of subcutaneous intrathecal pump, tissue plasminogen activator (tPA) infusion. SOCIAL HISTORY: Patient denies any tobacco or alcohol use. She lives with her . She is a F[employer]. She gets her medications done through [facility]. ALLERGIES: CEPHALOSPORINS, CHLORPROMAZINE, LORATADINE, PENICILLINS, PENTAZOCINE, SULFA ANTIBIOTICS, METHADONE, and LATEX. HOME MEDICATIONS: - Amitiza 20 mcg capsules by mouth nightly - Tresiba flex touch 80 units subcutaneous daily - allopurinol 300 mg by mouth daily - ammonium lactate 12% cream one dose topically twice a day - atorvastatin 10 mg by mouth daily - betamethasone valerate 45 gram ointment one dose topically nightly - bisoprolol fumarate 2.5 mg daily - calcitriol 0.25 mg capsule by mouth daily - colchicine 0.6 mg by mouth daily - cranberry extract 500 mg by mouth three times a day - docusate sodium 100 mg capsule by mouth twice a day - duloxetine 60 mg by mouth twice a day - ergocalciferol 50,000 unit capsules by mouth monthly - estradiol 0.1 mg/g cream, one dose PV three times per week. - Humalog sliding scale insulin - lactulose 30 mL by mouth twice a day - Keppra 500 mg by mouth twice a day - Levaquin 500 mg by mouth daily - Reglan 10 mg by mouth three times a day - omeprazole 20 mg by mouth twice a day - oxybutynin 10 mg by mouth daily - potassium chloride 10 mEq by mouth daily - Lyrica 150 mg capsule by mouth twice a day - ropinirole 2 mg by mouth daily twice a day - Senna 17.2 mg by mouth twice a day - spironolactone 25 mg by mouth twice a day - Sucralfate 1 gram by mouth twice a day - torsemide 60 mg by mouth twice a day - triamcinolone 0.025 % cream, one dose topically twice a day -Tylenol 650 mg by mouth every 8 hours as needed - albuterol nebulizers every 4 hours as needed - Tessalon pearls 100 mg by mouth three times a day as needed - guaifenesin ER 600 mg by mouth twice a day as needed - halobetasol propionate 0.05% cream one dose topically - Milk of Magnesia 30 mL by mouth daily as needed - Nystatin cream and ointment three times a day as needed - Zofran 4 mg by mouth q IV as needed - scopolamine one patch transdermal every [address] RD as needed. INPATIENT ANTIBIOTICS: Ertapenem 1 gram every 24 hours IV PHYSICAL EXAMINATION: VITALS: Temperature 97.4, pulse 103, respiratory rate 18, blood pressure 123/66, 91% on room air. GENERAL: Patient is alert and cooperative, seen sitting in her chair. She is in no acute distress. HEENT: Patient is edentulous, mucous membranes are moist, eyes are clear. NECK: Supple, no lymphadenopathy is appreciated. LUNGS: Clear to auscultation bilaterally. No wheezes, rhonchi or rales. HEART: Regular rate and rhythm. Not tachycardic. No murmurs, gallops or rubs. ABDOMEN: Obese, soft. Normoactive bowel sounds. GENITOURINARY: There is no redness or erythema appreciated in the inguinal folds. There are no excoriations. EXTREMITIES: No clubbing or erythema is noted. The left great hallux is slightly ecchymotic towards the medial aspect of the 2nd toe. Patient has good pulses bilaterally. SKIN: On the patient's abdomen and upper thighs, there are several slightly raised brown, dry, scalely, and round brown papules with well-defined borders, that the patient states are pruritic. These are seborrheic keratoses. There are no rashes, lesions, scrapes, or lacerations. There is no erythema noted. NEURO: Patient is able to converse naturally, speech is fluent, muscle strength is 5/5 in the upper extremities, patient can move all four extremities, however, does have pain with movement of the toes of the left foot. LABORATORY DATA: CBC: WBC 6.3, hemoglobin 9.8, hematocrit 35.7, platelets 224. Chemistries: Sodium 141, potassium 3.5, chloride 100, carbon dioxide 33, BUN 22, creatinine 1.41, fasting glucose 154, calcium 8.3. Urine: Yellow and clear. Positive for 3+ leukocyte esterase, 28 WBC, 4 RBC, 3+ bacteria. Outpatient urine culture from 04/06/2018 grew ESBL sensitive to ertapenem with an GORDY of less than 0.5. Microbiology: Respiratory virus panel is pending. Blood culture times two pending. Urine culture pending. Foot x-ray from 04/12/2018 showed metallic fixation in the hindfoot with a metallic richard and multiple metallic screws. There is narrowing and subchondral sclerosis and spurring at the tibiotalar joint. There is diffuse osteopenia. No acute fracture or dislocation. IMPRESSION: This is a 72-year-old female with a history of recurrent urinary tract infections with ESBL E Coli, most recent from a culture from 04/06/2018. She does have a history of urinary retention and is unable to physically intermittent catheterize herself. She is currently on IV ertapenem which is appropriate treatment. PLAN: Continue with IV ertapenem 1 gram every 24 hours for 2 weeks. Procalcitonin, ESR, and CRP ordered to see if there is active inflammation versus colonization. Consult urology for cystoscopy never had one to evaluate for causes of recurrence My faculty preceptor for this patient encounter was physically present during the encounter and was fully available. All aspects of the patient interview, examination, medical decision making process, and medical care plan development were reviewed and approved by the faculty preceptor. The faculty preceptor is aware and concurs with the plan as stated in the body of this note and will attest to such by his/her co-signature. JOSE R
--- NOTE | 2018-04-13 16:22 | IPNPDOC ---
Date Seen The patient was seen on 04/13/18. Progress Note SUBJECTIVE: Patient is a 72-year-old female with dysuria, urinary urgency, and urinary frequency. Patient is evaluated at bedside this morning. She states that she continues to experience back pain and is getting minimal relief from the Percocet. However, she would does not think that a heating pad or other pain medications would benefit her and that it will just take continued use of the Percocet to relieve her back pain. She declines wanting to increase the Percocet to two tablets. Her urinary symptoms remain. Her left toe continues to be painful. No fracture on imaging. She requests having her regular medications that were held at time of admission restarted. OBJECTIVE PHYSICAL EXAMINATION: VITAL SIGNS: Please see below. GENERAL: Well nourished, well developed female, alert and conversant, appears stated age, appropriately dressed, no acute distress. HEENT: Atraumatic, normocephalic, PERRL, EOMI, oral mucosa appears pink and moist, nasal septum appears midline, dentures present, nares are patent. CARDIOVASCULAR: Regular rate and rhythm, normal S1 and S2, no murmur, rub, click. RESPIRATORY: Clear to auscultation bilaterally, adequate inspiratory and expiratory airway excursion, symmetric airway entry, no focal consolidations, no wheeze, rhonchi, crackles. ABDOMINAL: Round, soft, non-tender, non-distended, no guarding, no rebound, bowel sounds appreciated, multiple small isolated brown papules noted on the abdomen. EXTREMITIES: Left hallux erythematous, no edema, ecchymosis noted on medial aspect of second left toe, peripheral pulses intact, isolated small brown papules scattered throughout lower extremities bilaterally. NEUROLOGICAL: No focal neurological deficits. PSYCHOLOGICAL: Mood and affect appropriate. LABORATORY DATA, IMAGING STUDIES, MICROBIOLOGY: Please see below. Left complete foot x-ray on 04/12/2018 - No acute fracture or dislocation. DVT prophylaxis ordered?: Heparin 5,000 units subcutaneously every 8 hours. ASSESSMENT AND PLAN: This is a 72-year-old female with dysuria, urinary frequency, urinary urgency found to have recurrent urinary tract infection with ESBL. PROBLEMS: 1. Dysuria with urinary frequency and urinary urgency with underlying ESBL UTI: Urine culture positive for ESBL. Infectious disease consulted. Continue with Ertapenem 1gm IV every 24 hours. 2. Cough with productive sputum: Patient reports improvement. Respiratory panel and sputum Gram stain and culture pending. Patient is afebrile with no leukocytosis. Continue Tessalon Perles and Mucinex. 3. Left great toe redness with bruising: No trauma. Left foot x-ray negative for fracture or dislocation. Restarted patient's Colchicine. Holding Allopurinol. 4. Exacerbation of chronic back pain: Continue Percocet. Patient declines heating pad. Will monitor for the time being. May increase Percocet if needed. 5. Chronic kidney disease, stage III: Appears to be near baseline with a creatinine. Continue spironolactone and torsemide. Status-post intravenous fluid resuscitation. 6. Diabetes mellitus with gastroparesis and neuropathy: Continue sliding scale insulin before meals and at bedtime, finger sticks before meals and at bedtime, and hypoglycemic protocol. Continue metoclopramide. Resumed consistent carbohydrate diet. 7. Hypertension: Continue bisoprolol, spironolactone, and torsemide. 8. Obstructive pulmonary disease: Continue albuterol nebulizer as needed. 9. Depression: Continue duloxetine. 10. Seizure disorder: Continue Keppra. 11. Gastroesophageal reflux disease: Continue Prilosec. 12. Urinary retention: Continue oxybutynin. 13. Restless leg syndrome: Continue Requip. 14. Obstructive sleep apnea: MATT protocol. 15. Skin abnormalities: Restarted various lotions and ointments that patient uses at home. 16. Constipation: Restarted patient's bowel regimen. DISPOSITION: Pending clinical improvement. Infectious disease consulted and appreciate their assistance/guidance.. VS, I&O, [facility] Vital Signs/I&O Vital Signs Date Time Temp Pulse Resp B/P (MAP) Pulse Ox O2 Delivery O2 Flow Rate FiO2 04/13/18 14:00 97.9 81 23 127/59 (81) 93 Room Air 04/13/18 04:17 2.0 I&O- Last 24 Hours up to 6 AM 04/13/18 05:59 Intake Total 1000 ml Output Total 1450 ml Balance -450 ml Laboratory Data 24H LABS Laboratory Tests 2 04/12/18 20:51: Bedside Glucose (Misc Panel) 178H 04/13/18 06:06: Nucleated Red Blood Cells % (auto) 0.0, Anion Gap 8, Glomerular Filtration Rate 38.9L, Blood Urea Nitrogen 22H, Creatinine 1.41H, Sodium Level 141, Potassium Level 3.5, Chloride Level 100, Carbon Dioxide Level 33H, Calcium Level 8.3L 04/13/18 11:37: Bedside Glucose (Misc Panel) 277H CBC/BMP Laboratory Tests 04/13/18 06:06 Red Blood Count 4.76, Mean Corpuscular Volume 75.0 L, Mean Corpuscular Hemoglobin 20.6 L, Mean Corpuscular Hemoglobin Concent 27.5 L, Red Cell Distribution Width 18.8 H, Calcium Level 8.3 L Microbiology Microbiology 04/12/18 Blood Culture - Preliminary, Resulted No growth after 24 hours . All specim... 04/12/18 Blood Culture - Preliminary, Resulted No growth after 24 hours . All specim... 04/13/18 Respiratory Virus Panel (PCR) (GORDY), Ordered Pending 04/12/18 Urine Culture, Received Pending KALEY DIAZ DO Apr 13, 2018 16:21
[2018-04-13] MEDS: ERTAPENEM SODIUM 1 GM in NS MINI-BAG PLUS 50 ML IV SCH (17:38)
[2018-04-13] MEDS: LACTOBACILLUS ACIDOPHILUS CAP (BACID) PO SCH (17:39)
[2018-04-13] MEDS: AQUAPHOR **100GM** OINT TOP SCH ×2 (17:40→22:32)
[2018-04-13 22:00] VITALS: BP 137/63
[2018-04-13] MEDS: BETAMETHASONE VAL 0.1% OINT 15 GM TOP SCH (22:33)
[2018-04-14] MEDS: rOPINIRole 1MG TAB PO SCH ×2 (05:30→20:38)
[2018-04-14] MEDS: HEPARIN SOD (PORCINE) 5000 UNITS/ML VIAL SC SCH ×3 (05:30→21:02)
[2018-04-14 06:00] VITALS: BP 120/58
[2018-04-14 06:11] LABS: HEMATOCRIT 35.5 % (36.0-47.0); HEMOGLOBIN 9.9 g/dl (12.0-15.5); MEAN CORPUSCULAR HEMOGLOBIN 20.5 pg (27.0-33.0); MEAN CORPUSCULAR HGB CONC 27.9 g/dl (32.0-36.5); MEAN CORPUSCULAR VOLUME 73.7 fl (80.0-96.0); PLATELET COUNT, AUTOMATED 223 10^3/uL (150-450); RED BLOOD COUNT 4.82 10^6/uL (4.00-5.40)
[2018-04-14 06:36] LABS: C REACTIVE PROTEIN QUANTITATIV 1.38 MG/DL (0.00-0.30); CREATININE FOR GFR 1.41 MG/DL (0.55-1.30); GLOMERULAR FILTRATION RATE 38.9 (>39); POTASSIUM SERUM 3.3 MEQ/L (3.5-5.1)
[2018-04-14 06:41] LABS: ERYTHROCYTE SEDIMENTATION RATE 25 mm/hr (0-30)
[2018-04-14] MEDS ORDERED: POTASSIUM CHLORIDE 10 MEQ SR TABLET PO ONE ×2 (08:00→09:15)
[2018-04-14] MEDS: COLCHICINE 0.6 MG TAB PO SCH (09:38)
[2018-04-14] MEDS: LACTOBACILLUS ACIDOPHILUS CAP (BACID) PO SCH ×3 (09:38→18:07)
[2018-04-14] MEDS: LACTULOSE 20 GM/30 ML SYRUP UD PO SCH ×2 (09:38→20:37)
[2018-04-14] MEDS: HumaLOG INSULIN (NovoLOG) PER UNIT SC SCH ×4 (09:38→21:01)
[2018-04-14] MEDS: TORSEMIDE 20 MG TAB PO SCH ×2 (09:38→16:09)
[2018-04-14] MEDS: DOCUSATE SODIUM 100 MG CAP PO SCH ×2 (09:38→20:38)
[2018-04-14] MEDS: OMEPRAZOLE 20 MG CAP PO SCH ×2 (09:39→20:38)
[2018-04-14] MEDS: METOCLOPRAMIDE 10 MG TAB PO SCH ×3 (09:39→20:38)
[2018-04-14] MEDS: DULoxetine 30 MG CAP (CYMBALTA) PO SCH ×2 (09:39→20:38)
[2018-04-14] MEDS: BISOPROLOL FUM 2.5 MG PER 1/2TAB PO SCH (09:39)
[2018-04-14] MEDS: PREGABALIN 75 MG CAP(LYRICA) PO SCH ×2 (09:39→20:38)
[2018-04-14] MEDS: levETIRAcetam 250MG TABLET (KEPPRA) PO SCH ×2 (09:39→20:37)
[2018-04-14] MEDS: ATORVASTATIN 10 MG TAB PO SCH (09:39)
[2018-04-14] MEDS: AQUAPHOR **100GM** OINT TOP SCH ×3 (09:40→20:39)
[2018-04-14] MEDS: SENNA 8.6 MG TAB (SENOKOT) PO SCH ×2 (09:40→20:38)
[2018-04-14] MEDS: TRIAMCINOLONE ACETONIDE 0.025 % 80 GM CREAM TOP SCH ×2 (09:40→20:39)
[2018-04-14] MEDS: SPIRONOLACTONE 25 MG TAB PO SCH ×2 (09:40→20:38)
[2018-04-14] MEDS: LACTIC ACID 12% LOTION 225 GM BTL TOP SCH ×2 (09:41→20:39)
[2018-04-14] MEDS: oxyBUTYnin *DITROPAN XL* 5 MG TABCR PO SCH (09:43)
[2018-04-14] MEDS: ACETAMINOPHEN 650MG ER TAB (TYLENOL ARTHRITIS) PO PRN (10:09)
[2018-04-14] MEDS: PERCOCET 5MG/325MG TAB PO PRN ×2 (10:09→16:11)
[2018-04-14 14:00] VITALS: BP 123/59
--- NOTE | 2018-04-14 15:13 | IPNPDOC ---
Date Seen The patient was seen on 04/14/18. Progress Note SUBJECTIVE: Patient is a 72-year-old female with dysuria, urinary urgency, and urinary frequency. Patient is evaluated at bedside this morning. She states that she continues to have dysuria. Also reports continued the right- sided back pain/hip pain that is sharp in nature. She states that it is no different from her chronic pain. OBJECTIVE PHYSICAL EXAMINATION: VITAL SIGNS: Please see below. GENERAL: Well nourished, well developed female, alert and conversant, appears stated age, appropriately dressed, no acute distress. HEENT: Atraumatic, normocephalic, PERRL, EOMI, oral mucosa appears pink and moist, nasal septum appears midline, dentures present, nares are patent. CARDIOVASCULAR: Regular rate and rhythm, normal S1 and S2, no murmur, rub, click. RESPIRATORY: Clear to auscultation bilaterally, adequate inspiratory and expiratory airway excursion, symmetric airway entry, no focal consolidations, no wheeze, rhonchi, crackles. ABDOMINAL: Round, soft, non-tender, non-distended, no guarding, no rebound, bowel sounds appreciated, multiple small isolated brown papules noted on the abdomen. EXTREMITIES: Left hallux erythema significantly improved, no edema, ecchymosis noted on medial aspect of second left toe, peripheral pulses intact, isolated small brown papules scattered throughout lower extremities bilaterally. NEUROLOGICAL: No focal neurological deficits. PSYCHOLOGICAL: Mood and affect appropriate. LABORATORY DATA, IMAGING STUDIES, MICROBIOLOGY: Please see below. Left complete foot x-ray on 04/12/2018 - No acute fracture or dislocation. DVT prophylaxis ordered?: Heparin 5,000 units subcutaneously every 8 hours. ASSESSMENT AND PLAN: This is a 72-year-old female with dysuria, urinary frequency, urinary urgency found to have recurrent urinary tract infection with ESBL. PROBLEMS: 1. Dysuria with urinary frequency and urinary urgency with underlying Escherichia coli ESBL UTI: Urine culture positive for Escherichia coli ESBL. Infectious disease consulted. Continue with Ertapenem 1gm IV every 24 hours. Patient has never had a urinary cystoscopy. Recommendations for patient to be considered for procedure outpatient. CRP elevated 1.38, percussed and a 0.3 and ESR 25. 2. Hypokalemia: Potassium this morning was 3.3. Patient has been supplemented appropriately. 3. Left great toe redness with bruising: Likely secondary to chronic gout. No trauma. Left foot x-ray negative for fracture or dislocation. Continue Colchicine. Holding Allopurinol. 4. Cough with productive sputum: Patient reports improvement. Respiratory panel and sputum Gram stain and culture pending. Patient is afebrile with no leukocyto sis. Continue Tessalon Perles and Mucinex. 5. Exacerbation of chronic back pain: Continue Percocet. Will provide heating pad. Will monitor for the time being. May increase Percocet if needed. 6. Chronic kidney disease, stage III: Appears to be near baseline with a creatinine. Continue spironolactone and torsemide. 7. Diabetes mellitus with gastroparesis and neuropathy: Continue sliding scale insulin before meals and at bedtime, finger sticks before meals and at bedtime, and hypoglycemic protocol. Continue metoclopramide. Continue consistent carbohydrate diet. 8. Hypertension: Continue bisoprolol, spironolactone, and torsemide. 9. Obstructive pulmonary disease: Continue albuterol nebulizer as needed. 10. Depression: Continue duloxetine. 11. Seizure disorder: Continue Keppra. 12. Gastroesophageal reflux disease: Continue Prilosec. 13. Urinary retention: Continue oxybutynin. 14. Restless leg syndrome: Continue Requip. 15. Obstructive sleep apnea: MATT protocol. 16. Skin abnormalities: Continue various lotions and ointments that patient uses at home, including triamcinolone topical, nystatin cream and ointment, lactic acid lotion, betamethasone ointment. Provided Aquaphor. 17. Constipation: Continue patient's bowel regimen. DISPOSITION: Tentative discharge in the next 24-48 hours. Recommendations include outpatient urinary cystoscopy. VS, I&O, 24H, Fishbone Vital Signs/I&O Vital Signs Date Time Temp Pulse Resp B/P (MAP) Pulse Ox O2 Delivery O2 Flow Rate FiO2 04/14/18 14:00 97.2 83 20 123/59 (80) 94 Nasal Cannula 2.0 I&O- Last 24 Hours up to 6 AM 04/14/18 06:00 Intake Total 2810 ml Output Total 4600 ml Balance -1790 ml Laboratory Data 24H LABS Laboratory Tests 2 04/14/18 05:45: Nucleated Red Blood Cells % (auto) 0.0, Erythrocyte Sedimentation Rate 25, Anion Gap 8, Glomerular Filtration Rate 38.9L, Blood Urea Nitrogen 21H, Creatinine 1.41H, Sodium Level 138, Potassium Level 3.3L, Chloride Level 98, Carbon Dioxide Level 32, Calcium Level 9.0, C-Reactive Protein, Quantitative 1.38H, Procalcitonin 0.30 CBC/BMP Laboratory Tests 04/14/18 05:45 Red Blood Count 4.82, Mean Corpuscular Volume 73.7 L, Mean Corpuscular Hemoglobin 20.5 L, Mean Corpuscular Hemoglobin Concent 27.9 L, Red Cell Distribution Width 18.9 H, Calcium Level 9.0 Microbiology Microbiology 04/12/18 Blood Culture - Preliminary, Resulted No growth after 24 hours . All specim... 04/12/18 Blood Culture - Preliminary, Resulted No growth after 24 hours . All specim... 04/13/18 Respiratory Virus Panel (PCR) (GORDY), Ordered Pending 04/12/18 Urine Culture - Preliminary, Resulted E.coli Esbl KALEY DIAZ DO Apr 14, 2018 15:13
[2018-04-14] MEDS: ERTAPENEM SODIUM 1 GM in NS MINI-BAG PLUS 50 ML IV SCH (18:07)
[2018-04-14] MEDS: BETAMETHASONE VAL 0.1% OINT 15 GM TOP SCH (20:40)
[2018-04-14 22:00] VITALS: BP 132/60
[2018-04-15] MEDS: PERCOCET 5MG/325MG TAB PO PRN (00:55)
[2018-04-15] MEDS: rOPINIRole 1MG TAB PO SCH ×2 (05:37→21:15)
[2018-04-15] MEDS: HEPARIN SOD (PORCINE) 5000 UNITS/ML VIAL SC SCH ×3 (05:38→21:14)
[2018-04-15 06:00] VITALS: BP 138/63
[2018-04-15 07:02] LABS: HEMATOCRIT 35.3 % (36.0-47.0); MEAN CORPUSCULAR HEMOGLOBIN 20.7 pg (27.0-33.0); MEAN CORPUSCULAR HGB CONC 28.3 g/dl (32.0-36.5); MEAN CORPUSCULAR VOLUME 73.1 fl (80.0-96.0); PLATELET COUNT, AUTOMATED 225 10^3/uL (150-450); RED BLOOD COUNT 4.83 10^6/uL (4.00-5.40); WHITE BLOOD COUNT 8.3 10^3/uL (4.0-10.0)
[2018-04-15 07:16] LABS: CALCIUM LEVEL 9.7 MG/DL (8.8-10.2); CREATININE FOR GFR 1.41 MG/DL (0.55-1.30); GLOMERULAR FILTRATION RATE 38.9 (>39); POTASSIUM SERUM 3.5 MEQ/L (3.5-5.1)
[2018-04-15] MEDS: METOCLOPRAMIDE 10 MG TAB PO SCH ×3 (09:00→21:16)
[2018-04-15] MEDS: HumaLOG INSULIN (NovoLOG) PER UNIT SC SCH ×4 (09:00→21:14)
[2018-04-15] MEDS: ATORVASTATIN 10 MG TAB PO SCH (09:00)
[2018-04-15] MEDS: levETIRAcetam 250MG TABLET (KEPPRA) PO SCH ×2 (09:00→21:15)
[2018-04-15] MEDS: DULoxetine 30 MG CAP (CYMBALTA) PO SCH ×2 (09:00→21:16)
[2018-04-15] MEDS: TORSEMIDE 20 MG TAB PO SCH ×2 (09:01→17:42)
[2018-04-15] MEDS: SPIRONOLACTONE 25 MG TAB PO SCH ×2 (09:02→21:15)
[2018-04-15] MEDS: DOCUSATE SODIUM 100 MG CAP PO SCH ×2 (09:02→21:16)
[2018-04-15] MEDS: OMEPRAZOLE 20 MG CAP PO SCH ×2 (09:02→21:15)
[2018-04-15] MEDS: COLCHICINE 0.6 MG TAB PO SCH (09:07)
[2018-04-15] MEDS: BISOPROLOL FUM 2.5 MG PER 1/2TAB PO SCH (09:07)
[2018-04-15] MEDS: SENNA 8.6 MG TAB (SENOKOT) PO SCH ×2 (09:07→21:16)
[2018-04-15] MEDS: LACTULOSE 20 GM/30 ML SYRUP UD PO SCH ×2 (09:07→21:14)
[2018-04-15] MEDS: PREGABALIN 75 MG CAP(LYRICA) PO SCH ×2 (09:07→21:15)
[2018-04-15] MEDS: LACTOBACILLUS ACIDOPHILUS CAP (BACID) PO SCH ×3 (09:07→17:43)
[2018-04-15] MEDS: AQUAPHOR **100GM** OINT TOP SCH ×3 (09:08→21:16)
[2018-04-15] MEDS: TRIAMCINOLONE ACETONIDE 0.025 % 80 GM CREAM TOP SCH ×2 (09:08→21:17)
[2018-04-15] MEDS: SODIUM CHLORIDE 0.9% INJ 10 ML SYR IV SCH (09:09)
[2018-04-15] MEDS: LACTIC ACID 12% LOTION 225 GM BTL TOP SCH ×2 (09:09→21:17)
[2018-04-15] MEDS: oxyBUTYnin *DITROPAN XL* 5 MG TABCR PO SCH (09:13)
[2018-04-15] MEDS ORDERED: FIORICET TAB PO ONE (09:15)
[2018-04-15 10:15] VITALS: BP 134/70
[2018-04-15 11:00] VITALS: BP 134/70
--- NOTE | 2018-04-15 12:03 | IPNPDOC ---
Date Seen The patient was seen on 04/15/18. Progress Note SUBJECTIVE: Patient is a 72-year-old female with dysuria, urinary urgency, and urinary frequency. Patient is evaluated at bedside this morning. She states that her urinary symptoms are somewhat improved. However, she admits to a migraine headache this morning. No vision changes, no blurry vision, no scotomas. Denies nausea, vomiting. OBJECTIVE PHYSICAL EXAMINATION: VITAL SIGNS: Please see below. GENERAL: Well nourished, well developed female, alert and conversant, appears stated age, appropriately dressed, no acute distress. HEENT: Atraumatic, normocephalic, PERRL, EOMI, oral mucosa appears pink and moist, nasal septum appears midline, dentures present, nares are patent. CARDIOVASCULAR: Regular rate and rhythm, normal S1 and S2, no murmur, rub, click. RESPIRATORY: Clear to auscultation bilaterally, adequate inspiratory and expiratory airway excursion, symmetric airway entry, no focal consolidations, no wheeze, rhonchi, crackles. ABDOMINAL: Round, soft, non-tender, non-distended, no guarding, no rebound, bowel sounds appreciated, multiple small isolated brown papules noted on the abdomen. EXTREMITIES: Left hallux erythema significantly improved, no edema, ecchymosis noted on medial aspect of second left toe, peripheral pulses intact, isolated small brown papules scattered throughout lower extremities bilaterally. NEUROLOGICAL: No focal neurological deficits. PSYCHOLOGICAL: Mood and affect appropriate. LABORATORY DATA, IMAGING STUDIES, MICROBIOLOGY: Please see below. Left complete foot x-ray on 04/12/2018 - No acute fracture or dislocation. DVT prophylaxis ordered?: Heparin 5,000 units subcutaneously every 8 hours. ASSESSMENT AND PLAN: This is a 72-year-old female with dysuria, urinary frequency, urinary urgency found to have recurrent urinary tract infection with Escherichia coli ESBL. PROBLEMS: 1. Dysuria with urinary frequency and urinary urgency with underlying Escherichia coli ESBL UTI: Urine culture positive for Escherichia coli ESBL. Infectious disease consulted. Continue with Ertapenem 1gm IV every 24 hours. Patient has never had a urinary cystoscopy. Recommendations for patient to be considered for procedure outpatient. CRP elevated 1.38, percussed and a 0.3 and ESR 25. Symptoms have improved. 2. Headache: Provided patient a one-time dose of Fioricet. 3. Left great toe redness with bruising: Likely secondary to chronic gout. No trauma. Left foot x-ray negative for fracture or dislocation. Continue Colchicine. Holding Allopurinol. 4. Chronic back pain: Continue Percocet and heating pad. Will monitor for the time being. May increase Percocet if needed. 5. Chronic kidney disease, stage III: Appears to be near baseline with a creatinine. Continue spironolactone and torsemide. 6. Diabetes mellitus with gastroparesis and neuropathy: Continue sliding scale insulin before meals and at bedtime, finger sticks before meals and at bedtime, and hypoglycemic protocol. Continue metoclopramide. Continue consistent carbohydrate diet. Patient takes Tresiba 80 units subcutaneous daily. Not on formulary. Substituted with Levemir at half the dose. 7. Hypertension: Continue bisoprolol, spironolactone, and torsemide. 8. Obstructive pulmonary disease: Continue albuterol nebulizer as needed. 9. Depression: Continue duloxetine. 10. Seizure disorder: Continue Keppra. 11. Gastroesophageal reflux disease: Continue Prilosec. 12. Urinary retention: Continue oxybutynin. 13. Restless leg syndrome: Continue Requip. 14. Obstructive sleep apnea: MATT protocol. 15. Skin abnormalities: Continue various lotions and ointments that patient uses at home, including triamcinolone topical, nystatin cream and ointment, lactic acid lotion, betamethasone ointment. Provided Aquaphor. 16. Constipation: Continue patient's bowel regimen. DISPOSITION: Tentative discharge early next week. Recommendations include outpatient urinary cystoscopy. VS, I&O, 24H, Fishbone Vital Signs/I&O Vital Signs Date Time Temp Pulse Resp B/P (MAP) Pulse Ox O2 Delivery O2 Flow Rate FiO2 04/15/18 10:15 21 Room Air 04/15/18 10:15 97.4 82 134/70 (91) 96 04/15/18 06:00 2.0 I&O- Last 24 Hours up to 6 AM 04/15/18 06:00 Intake Total 1390 ml Output Total 4175 ml Balance -2785 ml Laboratory Data 24H LABS Laboratory Tests 2 04/14/18 16:51: Bedside Glucose (Misc Panel) 277H 04/15/18 06:42: Nucleated Red Blood Cells % (auto) 0.0, Anion Gap 9, Glomerular Filtration Rate 38.9L, Blood Urea Nitrogen 25H, Creatinine 1.41H, Sodium Level 134L, Potassium Level 3.5, Chloride Level 95L, Carbon Dioxide Level 30, Calcium Level 9.7 04/15/18 11:39: Bedside Glucose (Misc Panel) 361H CBC/BMP Laboratory Tests 04/15/18 06:42 Red Blood Count 4.83, Mean Corpuscular Volume 73.1 L, Mean Corpuscular Hemoglobin 20.7 L, Mean Corpuscular Hemoglobin Concent 28.3 L, Red Cell Distribution Width 18.9 H, Calcium Level 9.7 Microbiology Microbiology 04/12/18 Blood Culture - Preliminary, Resulted No Growth after 48 hours. All Specime... 04/12/18 Blood Culture - Preliminary, Resulted No Growth after 48 hours. All Specime... 04/13/18 Respiratory Virus Panel (PCR) (GORDY), Ordered Pending 04/12/18 Urine Culture - Final, Complete E.coli Esbl KALEY DIAZ DO Apr 15, 2018 12:03
[2018-04-15] MEDS: LEVEMIR (INSULIN DETEMIR) 1 UNITS/0.01ML SC SCH (13:40)
[2018-04-15 14:00] VITALS: BP 146/70
[2018-04-15] MEDS: ERTAPENEM SODIUM 1 GM in NS MINI-BAG PLUS 50 ML IV SCH (18:48)
[2018-04-15] MEDS: BETAMETHASONE VAL 0.1% OINT 15 GM TOP SCH (21:18)
[2018-04-15 22:00] VITALS: BP 135/84
[2018-04-16] MEDS: PERCOCET 5MG/325MG TAB PO PRN ×3 (00:10→21:55)
[2018-04-16] MEDS: SODIUM CHLORIDE 0.9% INJ 10 ML SYR IV PRN ×2 (05:31→20:35)
[2018-04-16] MEDS: rOPINIRole 1MG TAB PO SCH ×2 (05:32→20:37)
[2018-04-16] MEDS: HEPARIN SOD (PORCINE) 5000 UNITS/ML VIAL SC SCH ×3 (05:33→21:56)
[2018-04-16 05:58] LABS: HEMATOCRIT 35.2 % (36.0-47.0); HEMOGLOBIN 9.8 g/dl (12.0-15.5); MEAN CORPUSCULAR HEMOGLOBIN 20.4 pg (27.0-33.0); MEAN CORPUSCULAR HGB CONC 27.8 g/dl (32.0-36.5); MEAN CORPUSCULAR VOLUME 73.2 fl (80.0-96.0); PLATELET COUNT, AUTOMATED 247 10^3/uL (150-450); RED BLOOD COUNT 4.81 10^6/uL (4.00-5.40); WHITE BLOOD COUNT 9.4 10^3/uL (4.0-10.0)
[2018-04-16 06:00] VITALS: BP 132/74
[2018-04-16 06:07] LABS: CALCIUM LEVEL 9.5 MG/DL (8.8-10.2); CREATININE FOR GFR 1.39 MG/DL (0.55-1.30); GLOMERULAR FILTRATION RATE 39.6 (>39); POTASSIUM SERUM 3.7 MEQ/L (3.5-5.1)
[2018-04-16] MEDS: HumaLOG INSULIN (NovoLOG) PER UNIT SC SCH ×4 (08:01→21:56)
[2018-04-16] MEDS: PREGABALIN 75 MG CAP(LYRICA) PO SCH ×2 (08:02→20:37)
[2018-04-16] MEDS: DOCUSATE SODIUM 100 MG CAP PO SCH ×2 (08:02→20:38)
[2018-04-16] MEDS: LACTULOSE 20 GM/30 ML SYRUP UD PO SCH ×2 (08:02→20:38)
[2018-04-16] MEDS: LACTOBACILLUS ACIDOPHILUS CAP (BACID) PO SCH ×3 (08:02→18:02)
[2018-04-16] MEDS: OMEPRAZOLE 20 MG CAP PO SCH ×2 (08:02→20:38)
[2018-04-16] MEDS: SENNA 8.6 MG TAB (SENOKOT) PO SCH ×2 (08:02→20:36)
[2018-04-16] MEDS: ATORVASTATIN 10 MG TAB PO SCH (08:02)
[2018-04-16] MEDS: SPIRONOLACTONE 25 MG TAB PO SCH ×2 (08:03→20:37)
[2018-04-16] MEDS: TORSEMIDE 20 MG TAB PO SCH ×2 (08:03→16:07)
[2018-04-16] MEDS: COLCHICINE 0.6 MG TAB PO SCH (08:03)
[2018-04-16] MEDS: DULoxetine 30 MG CAP (CYMBALTA) PO SCH ×2 (08:03→20:37)
[2018-04-16] MEDS: METOCLOPRAMIDE 10 MG TAB PO SCH ×3 (08:03→20:37)
[2018-04-16] MEDS: levETIRAcetam 250MG TABLET (KEPPRA) PO SCH ×2 (08:04→20:37)
[2018-04-16] MEDS: BISOPROLOL FUM 2.5 MG PER 1/2TAB PO SCH (08:06)
[2018-04-16] MEDS: LACTIC ACID 12% LOTION 225 GM BTL TOP SCH ×2 (08:07→20:38)
[2018-04-16] MEDS: LEVEMIR (INSULIN DETEMIR) 1 UNITS/0.01ML SC SCH (08:07)
[2018-04-16] MEDS: SODIUM CHLORIDE 0.9% INJ 10 ML SYR IV SCH (08:07)
[2018-04-16] MEDS: AQUAPHOR **100GM** OINT TOP SCH ×3 (08:08→20:38)
[2018-04-16] MEDS: TRIAMCINOLONE ACETONIDE 0.025 % 80 GM CREAM TOP SCH ×2 (08:08→20:39)
[2018-04-16] MEDS: oxyBUTYnin *DITROPAN XL* 5 MG TABCR PO SCH (08:13)
[2018-04-16 14:00] VITALS: BP 128/63
--- NOTE | 2018-04-16 14:29 | IPNPDOC ---
Date Seen The patient was seen on 04/16/18. Progress Note SUBJECTIVE: Patient continues to complain about lower urinary tract symptoms despite antibiotic therapy. She complains of continued headache which did improve yesterday after Fioricet OBJECTIVE PHYSICAL EXAMINATION: VITAL SIGNS: Please see below. GENERAL: [Morbidly obese female lying in bed she does not appear to be any acute distress she is very pleasant] HEENT: Cranial nerves II through XII grossly intact CARDIOVASCULAR: S1 S2 regular. RESPIRATORY: Clear bilaterally. ABDOMINAL: Grossly obese bowel sounds are present abdomen soft EXTREMITIES: No clubbing cyanosis or edema LABORATORY DATA, IMAGING STUDIES, MICROBIOLOGY: Please see below. DVT prophylaxis ordered?: [Heparin every 8] ASSESSMENT AND PLAN: This is a 72-year-old female with dysuria, urinary frequency, urinary urgency and urine culture positive Escherichia coli ESBL. PROBLEMS: 1. Dysuria with urinary frequency and urinary urgency: Urine culture positive for Escherichia coli ESBL although the patient denies any specific improvement despite appropriate biotic therapy. Infectious disease consulted and the help is appreciated. Continue with Ertapenem 1gm IV every 24 hours. Patient has never had a urinary cystoscopy. Given her lack of improvement I'll contact urology for inpatient consultation 2. Headache: Provided patient with when necessary Fioricet 3. Left great toe redness with bruising: Likely gout secondary to trauma Continue Colchicine. Holding Allopurinol until acute flare resolves possibly restarted upon discharge she is improved at this time 4. Chronic back pain: Continue Percocet and heating pad. Will monitor for the time being. 5. Chronic kidney disease, stage III: Appears to be near baseline with a creatinine. Continue spironolactone and torsemide. 6. Diabetes mellitus with gastroparesis and neuropathy: Continue sliding scale insulin before meals and at bedtime, finger sticks before meals and at bedtime, and hypoglycemic protocol. Continue metoclopramide. Continue consistent carbohydrate diet. Patient takes Tresiba 80 units subcutaneous daily. Not on formulary. Substituted with Levemir at half the dose. 7. Hypertension: Continue bisoprolol, spironolactone, and torsemide. 8. Obstructive pulmonary disease: Continue albuterol nebulizer as needed. 9. Depression: Continue duloxetine. 10. Seizure disorder: Continue Keppra. 11. Gastroesophageal reflux disease: Continue Prilosec. 12. Urinary retention: Continue oxybutynin. 13. Restless leg syndrome: Continue Requip. 14. Obstructive sleep apnea: MATT protocol. 15. Skin abnormalities: Continue various lotions and ointments that patient uses at home, including triamcinolone topical, nystatin cream and ointment, lactic acid lotion, betamethasone ointment. Provided Aquaphor. 16. Constipation: Continue patient's bowel regimen. VS, I&O, 24H, Fishbone Vital Signs/I&O Vital Signs Date Time Temp Pulse Resp B/P (MAP) Pulse Ox O2 Delivery O2 Flow Rate FiO2 04/16/18 14:00 97.0 74 18 128/63 (84) 99 Nasal Cannula 2.0 I&O- Last 24 Hours up to 6 AM 04/16/18 06:00 Intake Total 2420 ml Output Total 2350 ml Balance 70 ml Laboratory Data 24H LABS Laboratory Tests 2 04/15/18 16:27: Bedside Glucose (Misc Panel) 317H 04/15/18 20:21: Bedside Glucose (Misc Panel) 284H 04/16/18 05:29: Nucleated Red Blood Cells % (auto) 0.0, Anion Gap 8, Glomerular Filtration Rate 39.6, Blood Urea Nitrogen 28H, Creatinine 1.39H, Sodium Level 136, Potassium Level 3.7, Chloride Level 93L, Carbon Dioxide Level 35H, Calcium Level 9.5 04/16/18 05:59: Bedside Glucose (Misc Panel) 241H CBC/BMP Laboratory Tests 04/16/18 05:29 Red Blood Count 4.81, Mean Corpuscular Volume 73.2 L, Mean Corpuscular Hemoglobin 20.4 L, Mean Corpuscular Hemoglobin Concent 27.8 L, Red Cell Distribution Width 18.6 H, Calcium Level 9.5 Microbiology Microbiology 04/12/18 Blood Culture - Preliminary, Resulted No Growth after 72 hours. All specime... 04/12/18 Blood Culture - Preliminary, Resulted No Growth after 72 hours. All specime... 04/12/18 Urine Culture - Final, Complete E.coli Esbl GARRICK ZARATE MD Apr 16, 2018 14:29
[2018-04-16] MEDS ORDERED: FIORICET TAB PO PRN (14:30)
[2018-04-16] MEDS: ERTAPENEM SODIUM 1 GM in NS MINI-BAG PLUS 50 ML IV SCH (18:03)
--- NOTE | 2018-04-16 18:52 | CR.PDOC ---
General Date of Consultation: Apr 16, 2018 Referring Provider: ESSIE ZARATE MD Primary Care Physician: ABEL GRAFF MD @ Attending Physician: ESSIE ZARATE MD Consultation REQUESTING PROVIDER: Dr. Essie Zarate. REASON FOR CONSULTATION/CHIEF COMPLAINT: recurrent uti (esbl), dysuria, urgency. HISTORY OF PRESENT ILLNESS: 72yo female frequently hospitalized for multiple reasons. Today (since 7am); 842am 500ml, 1142am 500ml, 4p 750ml. She reports that she has been incontinent and she wears a diaper. This is a 72-year-old female with a history of recurrent urinary tract infections with ESBL E Coli (7 since 2016 before she started having ESBL 07/2017), most r ecent from a culture from 04/06/2018. CT scan 01/2018 reveal left lower pole stone. She does have a history of urinary retention and is reported to be on oxybutinin (which causes urinary retention); She nor her can physically intermittent catheterize because of her anatomy. They report a doctor was trying to teach them how to cath and could not do it himself. She is currently on IV ertapenem which ID believes the appropriate treatment. ID has ordered Procalcitonin, ESR and CRP. Urine: Yellow and clear. Positive for 3+ leukocyte esterase, 28 WBC, 4 RBC, 3+bacteria. WBC normal and Cr normal and stable. She is on the following home meds that can affect her stone formation or retention. HOME MEDICATIONS: - Tresiba flex touch 80 units subcutaneous daily - allopurinol 300 mg by mouth daily - betamethasone valerate 45 gram ointment one dose topically nightly - colchicine 0.6 mg by mouth daily - cranberry extract 500 mg by mouth three times a day - Keppra 500 mg by mouth twice a day - Levaquin 500 mg by mouth daily - oxybutynin 10 mg by mouth daily - torsemide 60 mg by mouth twice a day - scopolamine one patch transdermal every [address] as needed. She is also a diabetic. She states that along with the dysuria, she has had vaginal and groin irritation extending into her perianal area, which has now resolved. She denies any fevers.She states that she has intentionally lost abo ut 30 pounds since her last admission and on longer requires oxygen during the day.She has seen Dr. Rivera in the past. SHE IS WHEEL CHAIR DEPENDENT D/t FOOT DROP. SHE CAN STAND AN PIVOT. ALLERGIES: CEPHALOSPORINS, CHLORPROMAZINE, LORATADINE, PENICILLINS, PENTAZOCINE, SULFA ANTIBIOTICS, METHADONE, and LATEX. The remainder of her HOME MEDICATIONS: Please see below. PAST MEDICAL HISTORY: 1. CHF, end diastolic dysfunction with a left ventricular ejection fraction of 60-65%. 2. ESBL UTI. 3. type 2 diabetes 4. morbid obesity 5. dyslipidemia 6. hypertension 7. chronic obstructive pulmonary disease (COPD) 8. history of deep venous thrombosis (DVT) and pulmonary embolism 9. gout 10. migraine 11. seizure. 12. Gastroesophageal reflux disease (GERD) 13. depression 14. chronic kidney disease (CKD) stage 3, 15. chronic back pain 16. obstructive sleep apnea (MATT) 17. chronic and recurrent urinary tract infection with ESBL E Coli/Klebsiella 18. h/o C difficile infection, 19. chronic hypoxic respiratory failure 20. hypoventilation syndrome 21. restless leg syndrome 22. constipation 23. Diabetic gastroparesis. PAST SURGICAL HISTORY: 1. IVC placement in 2014 2. hysterectomy 3. right hip arthroplasty 4. tonsillectomy 5. left ankle, open reduction internal fixation, 6. multiple rib arthroscopic surgery 7. right diaphragm infiltration 8. esophagogastroduodenoscopy (EGD) 9. colonoscopy 10. arthroscopic subacromial decompression 11. shoulder arthroscopy 12. removal of left Infusaport 13. removal of subcutaneous intrathecal pump 14. tissue plasminogen activator (tPA) infusion. FAMILY HISTORY: unknown SOCIAL HISTORY: Patient denies any tobacco or alcohol use. She lives with her . She is a FULL CODE. She gets her medications done through [facility]. REVIEW OF SYSTEMS: CARDIOVASCULAR: chf/copd. RESPIRATORY: copd/hypoventilations/elevated c02 (serum). GENITOURINARY: uti/dysuria/urgency. MUSCULOSKELETAL: poor mobility and rom.SHE IS WHEEL CHAIR DEPENDENT D/t FOOT DROP. SHE CAN STAND AN PIVOT. GASTROINTESTINAL: constipation/cdiff. SKIN: aged/neurologic insult to skin, sacral decub NEUROLOGICAL: arachnoiditis/poor emptying of the bladder. PSYCHIATRIC: depression/normal mood and affect today. ENDOCRINE: diabetes/ thyroid unknown. PHYSICAL EXAMINATION: VITAL SIGNS: Please see below. been afebrile GENERAL: Patient is alert and cooperative, seen sitting in her bed and her is by her side. She is in no acute distress. Her CO2 35 (HIGH) HEENT: Patient is edentulous, mucous membranes are moist, eyes are clear. NECK: Supple, no lymphadenopathy is appreciated. LUNGS: Good excursion, No wheezes, rhonchi or rales. HEART: Not tachycardic. No murmurs, gallops or rubs. ABDOMEN: Obese, soft. Normoactive bowel sounds. GENITOURINARY: Her urethral meatus is quite inset. Her Diaper is wet; There is no redness or erythema appreciated in the inguinal folds. There are no excoriations. Her labia has to be to see her vaginal introitus her meatus is in a tunnel in the vagina. (SUSPECT SHE IS VAGINALLY VOIDING) EXTREMITIES: No clubbing or erythema is noted. The left great hallux is slightly ecchymotic towards the medial aspect of the 2nd toe. SKIN: On the patient's abdomen and upper thighs, there are several slightly raised brown, dry, scaly, and round brown papules with well-defined borders, that the patient states are pruritic. These are seborrheic keratoses. There are no rashes, lesions, scrapes, or lacerations. There is no erythema noted. She has left buttock indentation and left abdomen pain pump under skin NEURO: Patient is able to converse naturally, speech is fluent. Her ROM to LE is limited. LABORATORY DATA: Please see below. ASSESSMENT/PLAN: 1. Recurrent UTI- may be due to incomplete emptying, may be due to left lower pole stone (small); atrophic kidneys suggest other insults consider VUR 2ndary to neurogenic bladder; recommend UDS at Dr. Rivera's office as an outpatient. Could do cysto in the office or in this hospitalization (no urgent need unless this would be more convenient). Confirmation of Urinary retention with bladder scan, bladder us. CT/renal us to evaluate stone and possible new hydronephrosis. Ordering VCUG as well to see how patient empties. 2. Incomplete emptying reported not confirmed: if so stop the oxybutinin because it causes retention. If neurogenic bladder previously diagnosed then will need to continue oxybutynin and spt and or indwelling huerta. Pt is voiding large amounts a a time and renal function is overall okay, so neurogenic bladder is less likely. SO WOULD STOP DITROPAN (oxybutinin) AND START A VOID q2hour regimen .Would put her on alpha red for urinary retention but she has a sulfa allergy and these meds have 5% cross reactivity with sulfa. Addendum: prevoid bl adder scan 640ml, then void 500ml and bladder scan post void was 220ml. Suggests urinary retention. Await CT/bladder us to offer SPT v. INDWELLING HUERTA TO EMPTY BLADDER. WOULD RECOMMEND VOIDING q2h during the day to help with symptoms. scopolamine is another anticholinergic medication that could contributing to her retention. IF CAN STOP SCOPOLAMINE DO SO WELL. 3. Dehydration reported. She has 2000 to 2200ml limit d/t CHF so if she is not on IVF encourage water intake. 4. Constipation: Constipation and improper cleaning or changing of diapers are associated with recurrent UTI. start on probiotics and miralax 17g daily. 5. SUSPECT VAGINAL VOIDING POSSIBLY RELATED TO HER INCONTINENCE: Her anatomy is such that urethral meatus is about 1-2cm into the vagina. I am not sure that without a cath sample associated with appropriate prepping (betadine or cleaning) one can get accurate urine samples. VCUG recommended with urine culture obtained at that time to see how she voids. 6. Daily Levaquin seems unnecessary since she has demonstrated repeated resistance 7. STONES (KIDNEY): stop cranberry and substitute keppra (both related to ston es); pt also has gout and she could be having uric acid stones. obtained uric acid and ionized calcium levels. Daksha Deleon MD MPH [facility] Vital Signs/I&O Vital Signs Date Time Temp Pulse Resp B/P (MAP) Pulse Ox O2 Delivery O2 Flow Rate FiO2 04/16/18 14:00 97.0 74 18 128/63 (84) 99 Nasal Cannula 2.0 I&O- Last 24 Hours up to 6 AM 04/16/18 06:00 Intake Total 2420 ml Output Total 2350 ml Balance 70 ml Laboratory Data Labs 24H Laboratory Tests 2 04/15/18 20:21: Bedside Glucose (Misc Panel) 284H 04/16/18 05:29: Nucleated Red Blood Cells % (auto) 0.0, Anion Gap 8, Glomerular Filtration Rate 39.6, Blood Urea Nitrogen 28H, Creatinine 1.39H, Sodium Level 136, Potassium Level 3.7, Chloride Level 93L, Carbon Dioxide Level 35H, Calcium Level 9.5 04/16/18 05:59: Bedside Glucose (Misc Panel) 241H CBC/BMP Laboratory Tests 04/16/18 05:29 Red Blood Count 4.81, Mean Corpuscular Volume 73.2 L, Mean Corpuscular Hemoglobin 20.4 L, Mean Corpuscular Hemoglobin Concent 27.8 L, Red Cell Distribution Width 18.6 H, Calcium Level 9.5 Microbiology Microbiology 04/12/18 Blood Culture - Preliminary, Resulted No Growth after 72 hours. All specime... 04/12/18 Blood Culture - Preliminary, Resulted No Growth after 72 hours. All specime... 04/12/18 Urine Culture - Final, Complete E.coli Esbl Allergies Coded Allergies: Cephalosporins (Verified Allergy, Intermediate, KEFLEX - HIVES, 01/23/18) Chlorpromazine (Verified Allergy, Intermediate, HIVES, 01/23/18) Loratadine (Verified Allergy, Intermediate, HIVES, 01/23/18) Penicillins (Verified Allergy, Intermediate, HIVES, 01/23/18) Pentazocine (Verified Allergy, Intermediate, HIVES, 01/23/18) Sulfa Antibiotics (Unverified Allergy, Intermediate, HIVES, 01/23/18) Methadone (Verified Allergy, Unknown, 01/23/18) Latex (Verified Adverse Reaction, Mild, RISK, 01/23/18) Home Medications Scheduled (Amitiza) 24 Mcg Cap, 24 MCG PO QHS, (Reported) (Tresiba Flextouch) 100 Unit/Ml Inj, 80 UNIT SC DAILY, (Reported) Allopurinol (Zyloprim) 300 Mg Tab, 300 MG PO DAILY, (Reported) Ammonium Lactate (Ammonium Lactate) 12 % Cre, 1 DOSE TOP BID, (Reported) APPLY TO LEGS/FEET Atorvastatin Calcium (Atorvastatin Calcium) 10 Mg Tab, 10 MG PO DAILY, (R eported) Betamethasone Mala (Betamethasone Valerate) 45 Gm Oint, 1 DOSE TOP QHS, (Reported) USES ON LEGS FOR HOTSPOTS Bisoprolol Fumarate (Bisoprolol Fumarate) 5 Mg Tab, 2.5 MG PO DAILY, (Reported) Calcitriol (Calcitriol) 0.25 Mcg Cap, 0.25 MCG PO DAILY, (Reported) Colchicine (Colchicine) 0.6 Mg Tab, 0.6 MG PO DAILY, (Reported) Cranberry Extract (Cranberry) 500 Mg Cap, 500 MG PO TID, (Reported) Docusate Sodium (Docusate Sodium) 100 Mg Cap, 100 MG PO BID, (Reported) Duloxetine Hcl (Duloxetine HCl) 60 Mg Cap, 60 MG PO BID, (Reported) Ergocalciferol (Vitamin D) 50,000 Unit Cap, 50,000 UNIT PO MTHLY, (Reported) TAKES ON 1ST OF THE MONTH Estradiol (Estrace) 0.1 Mg/Gm Cre, 1 DOSE PV 3XW, (Reported) TAKES TUESDAY, TUESDAY AND TUESDAY AT QHS Insulin Human Lispro (Humalog) 1 Units/0.01 Ml Inj, 1 DOSE SC AC, (Reported) PER SLIDING SCALE < 70: TREAT LBS WITH 15 G CARBS 70 -90: 46, 46, 46 91-130: 52, 52, 52, 8 FOR NIGHT SNACK 131-150: 56, 56, 56, 10 FOR NIGHT SNACK 151-200: 60, 60, 60, 12 FOR NIGHT SNACK, 4 UNITS NPO 201-250: 66, 66, 66, 14 FOR NIGHT SNACK, 6 UNITS NPO 251-300: 72, 72, 72, 16 FOR NIGHT SNACK, 8 UNITS NPO 301-350: 78, 78, 78, 18 FOR NIGHT SNACK, 10 UNITS NPO 351-400: 82, 82, 82, 20 FOR NIGHT SNACK, 14 UNITS NPO 401-450: 86, 86, 86, 22 FOR NIGHT SNACK, 18 UNITS NPO > 450: 90, 90, 90, 24 FOR NIGHT SNACK, 22 UNITS NPO Lactulose (Lactulose) 10 Gm/15 Ml Kelli, 30 ML PO BID, (Reported) Levetiracetam (Keppra) 500 Mg Tab, 500 MG PO BID, (Reported) Levofloxacin Hemihydrate (Levofloxacin) 500 Mg Tab, 500 MG PO DAILY, (Reported) Metoclopramide HCl (Metoclopramide HCl) 10 Mg Tab, 10 MG PO TID, (Reported) Omeprazole (Omeprazole) 20 Mg Cap, 20 MG PO BID, (Reported) Oxybutynin Chloride (Oxybutynin Chloride ER) 10 Mg Tab, 10 MG PO DAILY, (Reported) Potassium Chloride (Klor-Con M10) 10 Meq Tabcr, 20 MEQ PO DAILY, (Reported) Pregabalin (Lyrica) 150 Mg Cap, 150 MG PO BID, (Reported) Ropinirole Hydrochloride (Ropinirole HCl) 1 Mg Tab, 2 MG PO DAILY, (Reported) TAKES AT 0630 Ropinirole Hydrochloride (Ropinirole HCl) 1 Mg Tab, 2 MG PO QHS, (Reported) Senna (Senna-Lax) 8.6 Mg Tab, 17.2 MG PO BID, (Reported) Spironolactone (Spironolactone) 25 Mg Tab, 25 MG PO BID, (Reported) Sucralfate (Sucralfate) 1 Gm Tab, 1 GM PO BID, (Reported) Torsemide (Torsemide) 20 Mg Tab, 60 MG PO BID, (Reported) Triamcinolone Acet (Triamcinolone Acetonide 0.025% Crm) 1 Dose/80 Gm Cream, 1 DOSE TOP BID, (Reported) APPLIES ON THIGHS Scheduled PRN Acetaminophen (Tylenol 8 Hour Arthritis) 650 Mg Tab, 650 MG PO Q8H PRN for PAIN, (Reported) Albuterol Sulfate (Albuterol Sulfate) 2.5 Mg/3 Ml Nebu, 2.5 MG INH Q4H PRN for SHORTNESS OF BREATH, (Reported) Benzonatate (Benzonatate) 100 Mg Cap, 100 MG PO TID PRN for COUGH, (Reported) Guaifenesin (Guaifenesin ER) 600 Mg Tab, 600 MG PO BID PRN for CONGESTION, (Reported) Halobetasol Propionate (Halobetasol Propionate) 0.05 % Cre, 1 DOSE TOP for RASH, (Reported) APPLIES UNDER FOLDS AND BREASTS Milk Of Magnesia (Milk of Magnesia) 1,200 Mg/15 Ml Esperanza, 30 ML PO DAILY PRN for CONSTIPATION, (Reported) Nystatin (Nystatin) 100,000 Unit/Gm Cre, 1 DOSE TOP BID PRN for RASH, (Reported) UNDER BREASTS AND GROIN AREA Nystatin (Nystatin Oint) 30 Gm Oint, 1 DOSE TOP TID PRN for RASH, (Reported) APPLIES AROUND VAGINAL AREA Ondansetron HCl (Ondansetron HCl) 4 Mg Tab, 4 MG PO QID PRN for NAUSEA OR VOMITING, (Reported) [Scopolamine] , 1 PATCH TD Q3RD PRN for NAUSEA OR VOMITING, (Reported) DOES NOT CURRENTLY HAVE ONE ON Daksha Deleon MD Apr 16, 2018 18:39
[2018-04-16] MEDS: BETAMETHASONE VAL 0.1% OINT 15 GM TOP SCH (20:39)
[2018-04-16 22:00] VITALS: BP 127/69
--- NOTE | 2018-04-17 05:19 | REPVR ---
EXAM: XR Abdomen, 1 View EXAM DATE/TIME: 04/16/2018 7:52 PM CLINICAL HISTORY: 72 years old, female; Condition or disease; Kidney or ureter condition; Chronic kidney disease or failure; Additional info: Left lower pole stone TECHNIQUE: Frontal supine view of the abdomen/pelvis. COMPARISON: NM-Gastric Emptying Study 11/23/2017 7:14 AM FINDINGS: Gastrointestinal tract: There is moderate gaseous distention of redundant sigmoid colon. There is moderate to large amount of stool throughout the colon. There is no abnormally dilated small bowel loops. Vasculature: IVC filter is seen. Bones/joints: The patient is status post right hip replacement. Lower lumbar spine degenerative changes seen. IMPRESSION: 1. No radiographic evidence of small bowel obstruction. 2. Moderate to large amount of stool burden. Correlate clinically for constipation. Electronically signed by: Quinn Fish On 04/17/2018 05:19:05 AM
--- NOTE | 2018-04-17 05:26 | REPVR ---
EXAM: CT Abdomen and Pelvis Without Contrast EXAM DATE/TIME: 04/16/2018 7:38 PM CLINICAL HISTORY: 72 years old, female; Pain; Abdominal pain; Additional info: Left lower pole stone TECHNIQUE: Axial computed tomography images of the abdomen and pelvis without contrast. All CT scans at this facility use at least one of these dose optimization techniques: automated exposure control; mA and/or kV adjustment per patient size (includes targeted exams where dose is matched to clinical indication); or iterative reconstruction. Coronal and sagittal reformatted images were created and reviewed. COMPARISON: CT ABD PELVIS W/O CONTRAST 01/23/2018 9:42 PM FINDINGS: Lower thorax: Chronic changes seen in the right and left lung bases. Parenchymal versus pleural calcification seen at the right lung base. ABDOMEN: Liver: Normal. No mass. Gallbladder and bile ducts: Normal. No calcified stones. No ductal dilation. Pancreas: There is segmental atrophy of the proximal pancreatic tail. There is no pancreatic ductal dilatation. Spleen: Multiple calcified granulomas seen in the spleen. Adrenals: Normal. No mass. Kidneys and ureters: There is 4 mm left lower renal pole nonobstructing stone. There is 5 mm right lower pole cyst. There is no hydronephrosis. Stomach and bowel: There is moderate stool burden throughout the colon. There is significant distention of the stomach with food like material. Appendix: No evidence of appendicitis. PELVIS: Bladder: Unremarkable as visualized. Reproductive: The patient status post hysterectomy. There is no adnexal mass. ABDOMEN and PELVIS: Intraperitoneal space: Normal. No free air. No significant fluid collection. Bones/joints: Evaluation of the pelvis is overall limited due to streak artifacts from right hip prosthesis. Lower lumbar spine facet arthrosis seen. The patient status post total right hip replacement with grossly intact prosthesis. Soft tissues: Unremarkable. Vasculature: There is mild aortic and iliac mural calcifications. Infrarenal IVC filter is seen. Lymph nodes: Normal. No enlarged lymph nodes. IMPRESSION: 1. Moderate to marked distention of the stomach with food like material. Correlate clinically for gastric motility disorders or gastric outlet obstruction. 2. Moderate stool burden throughout the colon. Correlate clinically for constipation. 3. Nonspecific mild segmental atrophy of the proximal pancreatic tail. Underlying subtle pancreatic lesion/neoplasm cannot be excluded. Continued follow with MRI of the pancreas is suggested. 4. 4 mm nonobstructing left lower renal pole stone. 5. Status post hysterectomy. 6. Splenic calcified granuloma is and right lung base calcified granulomas versus pleural calcifications. 7. infrarenal IVC filter. COMMENT: Consistent with the [employer]'s Incidental Findings Committee Report (J Am Neyamr Radiol 2010): Unless the patient's specific circumstances suggest otherwise, any liver lesion 0.5 cm or less, any cystic kidney lesion less than 1.0 cm, and/or any adrenal lesion 1.0 cm or less not otherwise characterized in this report as possessing suspicious or indeterminate imaging features is/are highly likely to be benign and do not require follow-up imaging or biopsy. Electronically signed by: Quinn Fish On 04/17/2018 05:25:58 AM
[2018-04-17] MEDS: rOPINIRole 1MG TAB PO SCH ×2 (05:30→22:24)
[2018-04-17] MEDS: PERCOCET 5MG/325MG TAB PO PRN ×3 (05:31→22:26)
[2018-04-17] MEDS: HEPARIN SOD (PORCINE) 5000 UNITS/ML VIAL SC SCH ×3 (05:31→22:23)
[2018-04-17 05:57] LABS: IONIZED CALCIUM 4.6 MG/DL (4.5-5.3)
[2018-04-17 06:00] VITALS: BP 131/62
[2018-04-17 06:20] LABS: HEMATOCRIT 34.4 % (36.0-47.0); HEMOGLOBIN 9.7 g/dl (12.0-15.5); MEAN CORPUSCULAR HEMOGLOBIN 20.6 pg (27.0-33.0); MEAN CORPUSCULAR HGB CONC 28.2 g/dl (32.0-36.5); MEAN CORPUSCULAR VOLUME 72.9 fl (80.0-96.0); PLATELET COUNT, AUTOMATED 259 10^3/uL (150-450); RED BLOOD COUNT 4.72 10^6/uL (4.00-5.40); WHITE BLOOD COUNT 8.2 10^3/uL (4.0-10.0)
[2018-04-17 06:26] LABS: CREATININE FOR GFR 1.59 MG/DL (0.55-1.30); GLOMERULAR FILTRATION RATE 33.9 (>39); POTASSIUM SERUM 3.5 MEQ/L (3.5-5.1)
--- NOTE | 2018-04-17 08:17 | REP ---
Urinary tract sonogram: History: Renal stone. Lower pole stone. Comparison: CT study April 16, 2018 Findings: Scanning at the level of the urinary bladder shows somewhat dilated urinary bladder but no other abnormality. Pre void bladder volume is somewhat dilated, 833 ml. Postvoid bladder volume is calculated at 124 ml, 14.8% postvoid residual. Renal cortical echogenicity pattern is normal bilaterally and contours are smooth. There is no evidence of hydronephrosis, cyst, mass, or calculus in either kidney. The right kidney measures 9.5 x 5.0 x 6.0 cm. Left renal dimensions are 11.8 x 4.9 x 6.4 cm. There is an echogenic focus in the lower pole left kidney corresponding with the calculus seen on CT in this location. Impression: Dilated urinary bladder. Small 6 mm calculus lower pole left kidney, otherwise normal urinary tract sonography. Electronically Signed by Hua Wang MD 04/17/2018 08:09 A
[2018-04-17] MEDS: LEVEMIR (INSULIN DETEMIR) 1 UNITS/0.01ML SC SCH (08:27)
[2018-04-17] MEDS: LACTULOSE 20 GM/30 ML SYRUP UD PO SCH ×2 (08:27→22:23)
[2018-04-17] MEDS: LACTOBACILLUS ACIDOPHILUS CAP (BACID) PO SCH ×3 (08:28→17:39)
[2018-04-17] MEDS: COLCHICINE 0.6 MG TAB PO SCH (08:28)
[2018-04-17] MEDS: HumaLOG INSULIN (NovoLOG) PER UNIT SC SCH ×4 (08:28→22:23)
[2018-04-17] MEDS: TORSEMIDE 20 MG TAB PO SCH ×2 (08:28→16:20)
[2018-04-17] MEDS: OMEPRAZOLE 20 MG CAP PO SCH ×2 (08:29→22:23)
[2018-04-17] MEDS: levETIRAcetam 250MG TABLET (KEPPRA) PO SCH ×2 (08:29→22:24)
[2018-04-17] MEDS: BISOPROLOL FUM 2.5 MG PER 1/2TAB PO SCH (08:29)
[2018-04-17] MEDS: DOCUSATE SODIUM 100 MG CAP PO SCH ×2 (08:29→22:23)
[2018-04-17] MEDS: SPIRONOLACTONE 25 MG TAB PO SCH ×2 (08:30→22:26)
[2018-04-17] MEDS: METOCLOPRAMIDE 10 MG TAB PO SCH ×3 (08:30→22:24)
[2018-04-17] MEDS: ATORVASTATIN 10 MG TAB PO SCH (08:30)
[2018-04-17] MEDS: DULoxetine 30 MG CAP (CYMBALTA) PO SCH ×2 (08:30→22:25)
[2018-04-17] MEDS: SODIUM CHLORIDE 0.9% INJ 10 ML SYR IV SCH ×2 (08:31→08:46)
[2018-04-17] MEDS: PREGABALIN 75 MG CAP(LYRICA) PO SCH ×2 (08:45→22:26)
[2018-04-17] MEDS: SENNA 8.6 MG TAB (SENOKOT) PO SCH ×2 (08:45→22:25)
[2018-04-17] MEDS: AQUAPHOR **100GM** OINT TOP SCH ×3 (08:46→22:28)
[2018-04-17] MEDS: MIRALAX *UNIT DOSE* 17GM PACKET PO SCH (08:47)
[2018-04-17] MEDS: oxyBUTYnin *DITROPAN XL* 5 MG TABCR PO SCH (10:03)
[2018-04-17] MEDS: LACTIC ACID 12% LOTION 225 GM BTL TOP SCH ×2 (10:03→22:28)
[2018-04-17] MEDS: TRIAMCINOLONE ACETONIDE 0.025 % 80 GM CREAM TOP SCH ×2 (10:04→22:27)
[2018-04-17] MEDS ORDERED: FLEET ENEMA PR ONE (10:45)
[2018-04-17] MEDS ORDERED: CYSTO-CONRAY II 17.2% 250ML VIAL (Q9958) As Ordered ONE ×2 (11:44→13:28)
[2018-04-17 14:00] VITALS: BP 139/57
--- NOTE | 2018-04-17 14:11 | IPNPDOC ---
Date Seen The patient was seen on 04/17/18. Progress Note SUBJECTIVE: Patient is a 72-year-old female with dysuria, urinary urgency, and urinary frequency. Patient is evaluated at bedside this morning. She is finishing breakfast during my evaluation. She states that her urinary symptoms have somewhat improved. She notes that she very rarely wears her scopolamine patch. She states the last time she wore it was approximately 2 months ago. She is not urinary catheter dependent. Patient states she does have pain in her left foot and great toe, but with wrapping it appears to improve the pain. OBJECTIVE PHYSICAL EXAMINATION: VITAL SIGNS: Please see below. GENERAL: Well nourished, well developed female, alert and conversant, appears stated age, appropriately dressed, no acute distress. HEENT: Atraumatic, normocephalic, PERRL, EOMI, oral mucosa appears pink and moist, nasal septum appears midline, dentures present, nares are patent. CARDIOVASCULAR: Regular rate and rhythm, normal S1 and S2, no murmur, rub, click. RESPIRATORY: Clear to auscultation bilaterally, adequate inspiratory and expiratory airway excursion, symmetric airway entry, no focal consolidations, no wheeze, rhonchi, crackles. ABDOMINAL: Round, soft, non-tender, non-distended, no guarding, no rebound, bowel sounds appreciated, multiple small isolated brown papules noted on the abdomen. EXTREMITIES: Left foot is wrapped in Kerlix, left hallux erythema significantly improved, improving ecchymosis of the medial aspect of the second toe digit on the left, no clubbing, no cyanosis, no peripheral edema, peripheral pulses intact, isolated small brown papules scattered throughout lower extremities bilaterally. NEUROLOGICAL: No focal neurological deficits. PSYCHOLOGICAL: Mood and affect appropriate. LABORATORY DATA, IMAGING STUDIES, MICROBIOLOGY: Please see below. Left complete foot x-ray on 04/12/2018 - No acute fracture or dislocation. Renal ultrasound on 04/16/2018 - Dilated urinary bladder, 6 mm cath placed lower pole left kidney. CT abdomen and pelvis without contrast on 04/16/2018 - Moderate to marked distention of stomach, moderate stool burden throughout:, Mild segmental atrophy of proximal, social pancreatic lesion/neoplasm cannot be excluded, 4 mm nonobstructing left lower renal pole stone, splenic calcified granuloma, right lung base calcified granuloma, infrarenal IVC filter. Abdominal x-ray on 04/16/2018 - No evidence of small bowel obstruction, moderate to large amount of stool burden. DVT prophylaxis ordered?: Heparin 5,000 units subcutaneously every 8 hours. ASSESSMENT AND PLAN: This is a 72-year-old female with dysuria, urinary frequency, urinary urgency found to have recurrent urinary tract infection with Escherichia coli ESBL. PROBLEMS: 1. Dysuria with urinary frequency and urinary urgency with underlying Escherichia coli ESBL UTI: Urine culture positive for Escherichia coli ESBL. Infectious disease consulted. Urology consulted. Recommendations included obtaining imaging as resulted above. Post void residual bladder scanning recommended to assess for urinary retention. If urinary retention is present to consider discontinuing oxybutynin. Recommended obtaining a uric acid level ionized calcium level. Both levels were within normal range. Further recommendations include stopping cranberry and scopolamine. Have added MiraLAX daily per recommendation. Patient takes probiotics. Continue with ertapenem 1 g IV every 24 hours. Patient may have an outpatient urinary cystoscopy. 2. Constipation: Have added MiraLAX. Continue with milk of magnesia as needed, lactulose, and Senokot. Have provided a one-time dose based on significant stool burden as visualized on imaging. 3. Left great toe redness with bruising: Likely secondary to chronic gout. No trauma. Left foot x-ray negative for fracture or dislocation. Significantly improved. Continue Colchicine. Holding Allopurinol. 4. 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 Recommended obtaining an MRI which has been ordered. Patient has noted significant weight loss with documentation indicating approximately 20-30 pound weight loss over the last 2 years. 4. Headache: Fioricet as needed. 5. Chronic back pain: Continue Percocet and heating pad. Will monitor for the time being. May increase Percocet if needed. 6. Chronic kidney disease, stage III: Appears to be near baseline with a creatinine. Continue spironolactone and torsemide. 7. Diabetes mellitus with gastroparesis and neuropathy: Continue sliding scale insulin before meals and at bedtime, finger sticks before meals and at bedtime, and hypoglycemic protocol. Continue metoclopramide. Continue consistent carbohydrate diet. Patient takes Tresiba 80 units subcutaneous daily. Not on formulary. Substituted with Levemir at full dose. 8. Hypertension: Continue bisoprolol, spironolactone, and torsemide. 9. Obstructive pulmonary disease: Continue albuterol nebulizer as needed. 10. Depression: Continue duloxetine. 11. Seizure disorder: Continue Keppra. 12. Gastroesophageal reflux disease: Continue Prilosec. 13. Urinary retention: Obtaining post void residual bladder scan. Post void residual is greater than 150 mL urology recommends discontinuing oxybutynin as it can contribute to urinary retention. 14. Restless leg syndrome: Continue Requip. 15. Obstructive sleep apnea: MATT protocol. 16. Skin abnormalities: Continue various lotions and ointments that patient uses at home, including triamcinolone topical, nystatin cream and ointment, lactic acid lotion, betamethasone ointment. Provided Aquaphor. DISPOSITION: Recommendations regarding antibiotics. Potential for discharge in 24-48 hours. VS, I&O, 24H, [facility] Vital Signs/I&O Vital Signs Date Time Temp Pulse Resp B/P (MAP) Pulse Ox O2 Delivery O2 Flow Rate FiO2 04/17/18 08:29 78 131/62 04/17/18 08:00 2.0 04/17/18 06:01 16 Nasal Cannula 04/17/18 06:00 97.0 97 I&O- Last 24 Hours up to 6 AM 04/17/18 06:00 Intake Total 2490 ml Output Total 4420 ml Balance -1930 ml Laboratory Data 24H LABS Laboratory Tests 2 04/17/18 05:33: Nucleated Red Blood Cells % (auto) 0.0, Anion Gap 10, Glomerular Filtration Rate 33.9L, Uric Acid 6.0, Blood Urea Nitrogen 31H, Creatinine 1.59H, Sodium Level 137, Potassium Level 3.5, Chloride Level 93L, Carbon Dioxide Level 34H, Calcium Level 9.0, Whole Blood Ionized Calcium 4.6 CBC/BMP Laboratory Tests 04/17/18 05:33 Red Blood Count 4.72, Mean Corpuscular Volume 72.9 L, Mean Corpuscular Hemoglobin 20.6 L, Mean Corpuscular Hemoglobin Concent 28.2 L, Red Cell Di stribution Width 18.4 H, Calcium Level 9.0 Microbiology Microbiology 04/12/18 Blood Culture - Preliminary, Resulted No Growth after 72 hours. All specime... 04/12/18 Blood Culture - Preliminary, Resulted No Growth after 72 hours. All specime... 04/12/18 Urine Culture - Final, Complete E.coli Esbl KALEY DIAZ DO Apr 17, 2018 11:54
--- NOTE | 2018-04-17 14:50 | REP ---
REPEAT DICTATION: CT ANGIOGRAPHY OF THE ABDOMEN WITH IV CONTRAST: HISTORY: Right upper quadrant pain. CT CONTRAST DOSE: 100 mL of intravenous contrast administered. Helical scanning is acquired. Axial 3 mm images are reformatted. Coronal and sagittal multiplanar re-formation, coronal MIP, and 3D color surface-rendered imaging is generated. CT ANGIOGRAPHIC FINDINGS: No significant nonvascular abdominal or pelvic abnormality is seen. The infrarenal and suprarenal abdominal aorta are normal in caliber and smooth. The common, external, and internal iliac vessels are unremarkable. Singular nonstenotic renal arteries are observed bilaterally. The superior mesenteric and inferior mesenteric arteries are patent and unremarkable. There is no evidence of atherosclerosis. The celiac axis origin is quite narrowed however and almost kinked in appearance on lateral 3D color rendering. Sagittal MPR images show irregularity and narrowing of the celiac axis approximate 75% with post stenotic dilation in the celiac axis and post stenotic dilation in the proximal common hepatic artery branch. These findings are quite suggestive of median arcuate ligament syndrome producing extrinsic narrowing in the celiac axis. No other abnormality is seen. IMPRESSION: Irregularity and narrowing of the origin of the celiac axis with post stenotic dilation. 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 The SMA and CHARISSE are widely patent. No other arterial abnormality. Electronically Signed by Hua Wang MD 04/17/2018 08:21 P
[2018-04-17] MEDS: ERTAPENEM SODIUM 1 GM in NS MINI-BAG PLUS 50 ML IV SCH (17:41)
[2018-04-17] MEDS ORDERED: PROHANCE 279.3MG/ML 5ML VIAL (A9576) As Ordered ONE (18:46)
[2018-04-17 22:00] VITALS: BP 149/67
[2018-04-17] MEDS: BETAMETHASONE VAL 0.1% OINT 15 GM TOP SCH (22:27)
[2018-04-18 06:00] VITALS: BP 166/76
[2018-04-18 06:03] LABS: HEMOGLOBIN 9.9 g/dl (12.0-15.5); MEAN CORPUSCULAR HEMOGLOBIN 20.3 pg (27.0-33.0); MEAN CORPUSCULAR HGB CONC 27.5 g/dl (32.0-36.5); MEAN CORPUSCULAR VOLUME 73.9 fl (80.0-96.0); PLATELET COUNT, AUTOMATED 255 10^3/uL (150-450); RED BLOOD COUNT 4.87 10^6/uL (4.00-5.40); WHITE BLOOD COUNT 7.9 10^3/uL (4.0-10.0)
[2018-04-18] MEDS: rOPINIRole 1MG TAB PO SCH ×2 (06:12→20:40)
[2018-04-18] MEDS: HEPARIN SOD (PORCINE) 5000 UNITS/ML VIAL SC SCH ×3 (06:13→20:41)
[2018-04-18 06:27] LABS: CALCIUM LEVEL 9.3 MG/DL (8.8-10.2); CREATININE FOR GFR 1.48 MG/DL (0.55-1.30); GLOMERULAR FILTRATION RATE 36.8 (>39); POTASSIUM SERUM 3.5 MEQ/L (3.5-5.1)
[2018-04-18] MEDS ORDERED: LEVEMIR (INSULIN DETEMIR) 1 UNITS/0.01ML SC SCH (09:00)
[2018-04-18] MEDS: SENNA 8.6 MG TAB (SENOKOT) PO SCH ×2 (09:11→20:40)
[2018-04-18] MEDS: LACTOBACILLUS ACIDOPHILUS CAP (BACID) PO SCH ×3 (09:11→18:24)
[2018-04-18] MEDS: OMEPRAZOLE 20 MG CAP PO SCH ×2 (09:11→20:40)
[2018-04-18] MEDS: COLCHICINE 0.6 MG TAB PO SCH (09:11)
[2018-04-18] MEDS: PREGABALIN 75 MG CAP(LYRICA) PO SCH ×2 (09:11→20:40)
[2018-04-18] MEDS: DOCUSATE SODIUM 100 MG CAP PO SCH ×2 (09:12→20:40)
[2018-04-18] MEDS: METOCLOPRAMIDE 10 MG TAB PO SCH ×3 (09:12→20:40)
[2018-04-18] MEDS: levETIRAcetam 250MG TABLET (KEPPRA) PO SCH ×2 (09:12→20:40)
[2018-04-18] MEDS: ATORVASTATIN 10 MG TAB PO SCH (09:12)
[2018-04-18] MEDS: DULoxetine 30 MG CAP (CYMBALTA) PO SCH ×2 (09:12→20:40)
[2018-04-18] MEDS: TORSEMIDE 20 MG TAB PO SCH ×2 (09:13→18:24)
[2018-04-18] MEDS: BISOPROLOL FUM 2.5 MG PER 1/2TAB PO SCH (09:14)
[2018-04-18] MEDS: SPIRONOLACTONE 25 MG TAB PO SCH ×2 (09:15→20:40)
[2018-04-18] MEDS: LACTULOSE 20 GM/30 ML SYRUP UD PO SCH ×2 (09:15→20:41)
[2018-04-18] MEDS: HumaLOG INSULIN (NovoLOG) PER UNIT SC SCH ×4 (09:16→20:41)
[2018-04-18] MEDS: SODIUM CHLORIDE 0.9% INJ 10 ML SYR IV SCH (09:17)
[2018-04-18] MEDS: MIRALAX *UNIT DOSE* 17GM PACKET PO SCH (09:17)
[2018-04-18] MEDS: AQUAPHOR **100GM** OINT TOP SCH ×3 (09:18→20:43)
[2018-04-18] MEDS: LACTIC ACID 12% LOTION 225 GM BTL TOP SCH ×2 (09:19→20:43)
[2018-04-18] MEDS: TRIAMCINOLONE ACETONIDE 0.025 % 80 GM CREAM TOP SCH ×2 (09:19→20:42)
--- NOTE | 2018-04-18 11:05 | REP ---
MRI study abdomen without and with IV contrast: History: Question pancreatic neoplasm. Gadolinium enhancement dose: 10 ml of intravenous ProHance. Comparison CT study: April 16, 2018. The study was read as showing possible atrophy of the tail of the pancreas. Comparison is also made with prior CT studies January 23, 2018. Comparison is made with CT images from January 29, 2017 as well. MRI technique: Axial and coronal imaging planes utilized. T1 and T2-weighted scans include spin-echo, fast spin echo, in and out of phase, and this dynamically acquired sequential post contrast images. MRI findings: There is a small accessory splenule. There is no evidence of pancreatic ductal dilation or mass lesion. No cyst is seen. Pancreas is diffusely somewhat thin but this is not focal. There are several scattered peripheral pancreatic cysts. The largest of these is in the pancreatic tail measuring 1.3 cm by 0.[address] study show pancreatic calcifications and the changes are compatible with chronic pancreatitis changes. No pancreatic mass lesion is evident. Postcontrast images show no evidence of hypervascular or nonenhancing mass lesion. No liver mass lesion or regional adenopathy is seen. Impression: There are a few tiny pancreatic cysts which in combination with the CT findings are compatible with chronic pancreatitis changes. No significant cyst or mass lesion is observed. Electronically Signed by Hua Wang MD 04/18/2018 10:56 A
[2018-04-18 14:00] VITALS: BP 138/65
--- NOTE | 2018-04-18 14:52 | IPNPDOC ---
Date Seen The patient was seen on 04/18/18. Progress Note SUBJECTIVE: Patient is a 72-year-old female with dysuria, urinary urgency, and urinary frequency. Patient is evaluated at bedside this morning. She states that she did not rest well overnight with all the various testing, procedures, and imaging for which she was scheduled. She feels as though her symptoms are improving. Her left great toe is much improved and wrapping it with Kerlix has provided significant relief. OBJECTIVE PHYSICAL EXAMINATION: VITAL SIGNS: Please see below. GENERAL: Well nourished, well developed female, alert and conversant, appears stated age, appropriately dressed, no acute distress. HEENT: Atraumatic, normocephalic, PERRL, EOMI, oral mucosa appears pink and moist, nasal septum appears midline, dentures present, nares are patent. CARDIOVASCULAR: Regular rate and rhythm, normal S1 and S2, no murmur, rub, click. RESPIRATORY: Clear to auscultation bilaterally, adequate inspiratory and expiratory airway excursion, symmetric airway entry, no focal consolidations, no wheeze, rhonchi, crackles. ABDOMINAL: Round, soft, non-tender, non-distended, no guarding, no rebound, bowel sounds appreciated, multiple small isolated brown papules noted on the abdomen. EXTREMITIES: Left foot is wrapped in Kerlix, left hallux erythema significantly improved, improving ecchymosis of the medial aspect of the second toe digit on the left, no clubbing, no cyanosis, no peripheral edema, peripheral pulses intact, isolated small brown papules scattered throughout lower extremities bilaterally. NEUROLOGICAL: No focal neurological deficits. PSYCHOLOGICAL: Mood and affect appropriate. LABORATORY DATA, IMAGING STUDIES, MICROBIOLOGY: Please see below. Left complete foot x-ray on 04/12/2018 - No acute fracture or dislocation. Renal ultrasound on 04/16/2018 - Dilated urinary bladder, 6 mm cath placed lower pole left kidney. CT abdomen and pelvis without contrast on 04/16/2018 - Moderate to marked distention of stomach, moderate stool burden throughout:, Mild segmental atrophy of proximal, social pancreatic lesion/neoplasm cannot be excluded, 4 mm nonobstructing left lower renal pole stone, splenic calcified granuloma, right lung base calcified granuloma, infrarenal IVC filter. Abdominal x-ray on 04/16/2018 - No evidence of small bowel obstruction, moderate to large amount of stool burden. Voiding cystourethrogram on 04/17/2018 - Irregularity and narrowing of the origin of the celiac axis with post-stenotic dilation, suggestive of median arcuate ligament syndrome, SMA and CHARISSE patent. MRI abdomen without followed by with contrast on 04/17/2018 - tiny pancreatic cysts compatible with chronic pancreatitis changes. No mass lesion observed. DVT prophylaxis ordered?: Heparin 5,000 units subcutaneously every 8 hours. ASSESSMENT AND PLAN: This is a 72-year-old female with dysuria, urinary frequency, urinary urgency found to have recurrent urinary tract infection with Escherichia coli ESBL. PROBLEMS: 1. Dysuria with urinary frequency and urinary urgency with underlying Escherichia coli ESBL UTI: Urine culture positive for Escherichia coli ESBL. Infectious disease consulted. Recommend 3 weeks of IV antibiotics. Ordered PICC line. Urology consulted. Recommendations included obtaining imaging as resulted above. Post void residual bladder scanning recommended to assess for urinary retention. Urinary retention noted. Oxybutynin discontinued. Uric acid and ionized calcium levels normal. Further recommendations include stopping cranberry and scopolamine. Continue MiraLAX daily per recommendation. Patient takes probiotics. Continue with ertapenem 1 g IV every 24 hours. 2. Constipation: Continue MiraLAX, milk of magnesia as needed, lactulose, and Senokot. Status-post one-time fleet enema. 3. Left hallux gout: No trauma. Left foot x-ray negative for fracture or dislocation. Significantly improved. Continue Colchicine. Holding Allopurinol. 4. Proximal pancreatic tail atrophy with questionable lesion with underlying chronic pancreatitis: MRI imaging revealed chronic pancreatitis. 5. Headache: Fioricet as needed. 6. Chronic back pain: Continue Percocet and heating pad. Will monitor for the time being. May increase Percocet if needed. 7. Chronic kidney disease, stage III: Appears to be near baseline with a creatinine. Continue spironolactone and torsemide. 8. Diabetes mellitus with gastroparesis and neuropathy: Increased sliding scale insulin before meals and at bedtime as patient's blood glucose measurements are elevated, finger sticks before meals and at bedtime, and hypoglycemic protocol. Continue metoclopramide. Continue consistent carbohydrate diet. Patient takes Tresiba 80 units subcutaneous daily. Not on formulary. Substituted with Levemir at full dose. 9. Hypertension: Continue bisoprolol, spironolactone, and torsemide. 10. Obstructive pulmonary disease: Continue albuterol nebulizer as needed. 11. Depression: Continue duloxetine. 12. Seizure disorder: Continue Keppra. 13. Gastroesophageal reflux disease: Continue Prilosec. 14. Urinary retention: Appears to be retaining urine on post-void residual bladder scan. Discontinued Oxybutynin. 15. Restless leg syndrome: Continue Requip. 16. Obstructive sleep apnea: MATT protocol. 17. Skin abnormalities: Continue various lotions and ointments that patient uses at home, including triamcinolone topical, nystatin cream and ointment, lactic acid lotion, betamethasone ointment. Provided Aquaphor. DISPOSITION: PICC line. Three weeks of IV antibiotics. Discharge in 24-48 hours. VS, I&O, 24H, Fishbone Vital Signs/I&O Vital Signs Date Time Temp Pulse Resp B/P (MAP) Pulse Ox O2 Delivery O2 Flow Rate FiO2 04/18/18 09:14 82 140/69 04/18/18 07:00 17 98 Nasal Cannula 2.0 04/18/18 06:00 97.3 I&O- Last 24 Hours up to 6 AM 04/18/18 06:00 Intake Total 1660 ml Output Total 4770 ml Balance -3110 ml Laboratory Data 24H LABS Laboratory Tests 2 04/17/18 16:32: Bedside Glucose (Misc Panel) 289H 04/17/18 20:09: Bedside Glucose (Misc Panel) 274H 04/18/18 05:36: Nucleated Red Blood Cells % (auto) 0.0, Anion Gap 7L, Glomerular Filtration Rate 36.8L, Blood Urea Nitrogen 37H, Creatinine 1.48H, Sodium Level 134L, Potassium Level 3.5, Chloride Level 93L, Carbon Dioxide Level 34H, Calcium Level 9.3 04/18/18 13:04: Bedside Glucose (Misc Panel) 352H CBC/BMP Laboratory Tests 04/18/18 05:36 Red Blood Count 4.87, Mean Corpuscular Volume 73.9 L, Mean Corpuscular Hemo globin 20.3 L, Mean Corpuscular Hemoglobin Concent 27.5 L, Red Cell Distribution Width 18.2 H, Calcium Level 9.3 Microbiology Microbiology 04/12/18 Blood Culture - Final, Complete NO GROWTH AFTER 5 DAYS 04/12/18 Blood Culture - Final, Complete NO GROWTH AFTER 5 DAYS 04/17/18 Urine Culture, Received Pending 04/12/18 Urine Culture - Final, Complete E.coli Esbl KALEY DIAZ DO Apr 18, 2018 14:52
[2018-04-18] MEDS: PERCOCET 5MG/325MG TAB PO PRN (14:59)
[2018-04-18] MEDS ORDERED: LIDOCAINE 1% MDV 20ML VIAL As Ordered ONE (15:52)
[2018-04-18] MEDS ORDERED: SODIUM CHLORIDE 0.9% INJ 10 ML SYR IV PRN (18:15)
--- NOTE | 2018-04-18 18:17 | IPNPDOC ---
Date Seen The patient was seen on 04/18/18. Progress Note SUBJECTIVE: Patient is a 72 yo white female with confirmed recurrent uti, incomplete emptying, constipation, improving dysuria and left lower pole kidney stone. The following recommendations were made 04/16/17: 1. Recurrent UTI- may be due to incomplete emptying, may be due to left lower pole stone (small); atrophic kidneys suggest other insults consider VUR 2ndary to neurogenic bladder; recommend UDS at Dr. Rivera's office as an outpatient. Could do cysto in the office or in this hospitalization (no urgent need unless this would be more convenient). Confirmation of Urinary retention with bladder scan, bladder us. CT/renal us to evaluate stone and possible new hydronephrosis. Ordering VCUG as well to see how patient empties. 2. Incomplete emptying reported not confirmed: if so stop the oxybutinin because it causes retention. If neurogenic bladder previously diagnosed then will need to continue oxybutynin and spt and or indwelling huerta. Pt is voiding large amounts a a time and renal function is overall okay, so neurogenic bladder is less likely. SO WOULD STOP DITROPAN (oxybutinin) AND START A VOID q2hour regimen .Would put her on alpha red for urinary retention but she has a sulfa allergy and these meds have 5% cross reactivity with sulfa. Addendum: prevoid bladder scan 640ml, then void 500ml and bladder scan post void was 220ml. Suggests urinary retention. Await CT/bladder us to offer SPT v. INDWELLING HUERTA TO EMPTY BLADDER. WOULD RECOMMEND VOIDING q2h during the day to help with sympto ms. scopolamine is another anticholinergic medication that could contributing to her retention. IF CAN STOP SCOPOLAMINE DO SO WELL. 3. Dehydration reported. She has 2000 to 2200ml limit d/t CHF so if she is not on IVF encourage water intake. 4. Constipation: Constipation and improper cleaning or changing of diapers are associated with recurrent UTI. start on probiotics and miralax 17g daily. 5. SUSPECT VAGINAL VOIDING POSSIBLY RELATED TO HER INCONTINENCE: Her anatomy is such that urethral meatus is about 1-2cm into the vagina. I am not sure that without a cath sample associated with appropriate prepping (betadine or cleaning) one can get accurate urine samples. VCUG recommended with urine culture obtained at that time to see how she voids. 6. Daily Levaquin seems unnecessary since she has demonstrated repeated resistance 7. STONES (KIDNEY): stop cranberry and substitute keppra (both related to stones); pt also has gout and she could be having uric acid stones. obtained uric acid and ionized calcium levels Since the following has been done: pt has had vcug negative for stones, but positive for incomplete emptying and constipation and a ct scan show left non obstructing lower pole kidney stone. pt constipation associated with poor mobility, ditropan, and she has had benefit from enema, lactulose, miralax and probiotics. OBJECTIVE PHYSICAL EXAMINATION: VITAL SIGNS: Please see below. GENERAL: alert and oriented x3 HEENT: no erythema/no exudate; dentures CARDIOVASCULAR: rrr, no cyanosis. RESPIRATORY: good excursion no wheeze no stridor. ABDOMINAL: soft non tender non distended EXTREMITIES: no cyanosis no clubbing NEUROLOGICAL: alert oriented x 3 PSYCHOLOGICAL: normal mood and affect LABORATORY DATA, IMAGING STUDIES, MICROBIOLOGY: Please see below. ASSESSMENT AND PLAN: This is a 72yo female PROBLEMS: 1. Constipation: encourage higher fiber, probiotic, miralax and proper cleaning after stooling to avoid infection. Thanks for stopping ditropan. 2. Incomplete emptying: recommend now that ditropan off that continue to check strict i/os and pvr's to ensure improving emptying. unfortunately can not start any alpha blockers comfortably as outpatient with sulfa allergy. But if we are going to try we should try here. If Dr. Barton is willing we can start flomax to see if she responds adversely and to see if we can help with emptying. 3. Stone: avoid keppra and oxalate diet. KUB does not show stone, so ESWL can no t be done safely. Ureteroscopy offered pt refused. It is also not necessary since non obstructing stone is less likely the culprit for recurrent uti. Chronically poorly emptying bladder and constipation are more likely sources especially in the context of inset urethra and possible vaginal voiding. Unfortunately the vcug done cuts of imaging associated with VOIDING. 4. all of the above can contribute to recurrent uti including abnormal anatomy. Less likely stone. Thanks for starting recommendations; CONSIDER INDWELLING HUERTA IF PVR's ARE CONSISTENTLY >150ml. Consider FLOMAX trial while in the hospital which is going to give us the best chance. Spoke to Dr. O and she is willing to try the patient her to ensure any adverse reaction occurs here and can be stopped and managed. DISPOSITION: f/u with urology as outpatient for outpatient cystoscopy. ureteroscopy not absolute necessary. F/u with Dr. Deleon or Dr. Rivera for outpatient cystoscopy VS, I&O, 24H, Fishbone Vital Signs/I&O Vital Signs Date Time Temp Pulse Resp B/P (MAP) Pulse Ox O2 Delivery O2 Flow Rate FiO2 04/18/18 14:59 83 24 139/68 90 Room Air 04/18/18 14:00 98.0 04/18/18 07:00 2.0 I&O- Last 24 Hours up to 6 AM 04/18/18 05:59 Intake Total 1840 ml Output Total 5420 ml Balance -3580 ml Laboratory Data 24H LABS Laboratory Tests 2 04/17/18 20:09: Bedside Glucose (Misc Panel) 274H 04/18/18 05:36: Nucleated Red Blood Cells % (auto) 0.0, Anion Gap 7L, Glomerular Filtration Rate 36.8L, Blood Urea Nitrogen 37H, Creatinine 1.48H, Sodium Level 134L, Potassium Level 3.5, Chloride Level 93L, Carbon Dioxide Level 34H, Calcium Level 9.3 04/18/18 13:04: Bedside Glucose (Misc Panel) 352H 04/18/18 17:28: Bedside Glucose (Misc Panel) 308H CBC/BMP Laboratory Tests 04/18/18 05:36 Red Blood Count 4.87, Mean Corpuscular Volume 73.9 L, Mean Corpuscular Hemoglobin 20.3 L, Mean Corpuscular Hemoglobin Concent 27.5 L, Red Cell Distribution Width 18.2 H, Calcium Level 9.3 Microbiology Microbiology 04/12/18 Blood Culture - Final, Complete NO GROWTH AFTER 5 DAYS 04/12/18 Blood Culture - Final, Complete NO GROWTH AFTER 5 DAYS 04/17/18 Urine Culture, Received Pending 04/12/18 Urine Culture - Final, Complete E.coli Esbl Daksha Deleon MD Apr 18, 2018 18:17
[2018-04-18] MEDS: ERTAPENEM SODIUM 1 GM in NS MINI-BAG PLUS 50 ML IV SCH (18:26)
[2018-04-18] MEDS: ACETAMINOPHEN 650MG ER TAB (TYLENOL ARTHRITIS) PO PRN (20:39)
[2018-04-18] MEDS: BETAMETHASONE VAL 0.1% OINT 15 GM TOP SCH (20:42)
[2018-04-18 22:00] VITALS: BP 134/60
[2018-04-19] MEDS: rOPINIRole 1MG TAB PO SCH ×2 (05:21→21:06)
[2018-04-19] MEDS: HEPARIN SOD (PORCINE) 5000 UNITS/ML VIAL SC SCH ×3 (05:21→21:05)
[2018-04-19] MEDS: SODIUM CHLORIDE 0.9% INJ 10 ML SYR IV SCH ×3 (05:22→17:06)
[2018-04-19 05:43] LABS: HEMOGLOBIN 9.9 g/dl (12.0-15.5); MEAN CORPUSCULAR HEMOGLOBIN 20.5 pg (27.0-33.0); MEAN CORPUSCULAR HGB CONC 28.3 g/dl (32.0-36.5); MEAN CORPUSCULAR VOLUME 72.5 fl (80.0-96.0); PLATELET COUNT, AUTOMATED 264 10^3/uL (150-450); RED BLOOD COUNT 4.83 10^6/uL (4.00-5.40); WHITE BLOOD COUNT 8.7 10^3/uL (4.0-10.0)
[2018-04-19 06:00] VITALS: BP 128/65
[2018-04-19 07:38] LABS: CALCIUM LEVEL 9.2 MG/DL (8.8-10.2); CREATININE FOR GFR 1.61 MG/DL (0.55-1.30); GLOMERULAR FILTRATION RATE 33.4 (>39); POTASSIUM SERUM 3.5 MEQ/L (3.5-5.1)
[2018-04-19] MEDS ORDERED: FLOM0.4C39 PO (08:06)
[2018-04-19] MEDS: HumaLOG INSULIN (NovoLOG) PER UNIT SC SCH ×4 (08:11→21:06)
[2018-04-19] MEDS: MIRALAX *UNIT DOSE* 17GM PACKET PO SCH (08:12)
[2018-04-19] MEDS: SENNA 8.6 MG TAB (SENOKOT) PO SCH ×2 (08:12→21:07)
[2018-04-19] MEDS: COLCHICINE 0.6 MG TAB PO SCH (08:12)
[2018-04-19] MEDS: LEVEMIR (INSULIN DETEMIR) 1 UNITS/0.01ML SC SCH (08:12)
[2018-04-19] MEDS: levETIRAcetam 250MG TABLET (KEPPRA) PO SCH ×2 (08:12→21:07)
[2018-04-19] MEDS: LACTULOSE 20 GM/30 ML SYRUP UD PO SCH ×2 (08:12→21:07)
[2018-04-19] MEDS: OMEPRAZOLE 20 MG CAP PO SCH ×2 (08:12→21:07)
[2018-04-19] MEDS: DOCUSATE SODIUM 100 MG CAP PO SCH ×2 (08:12→21:06)
[2018-04-19] MEDS: BISOPROLOL FUM 2.5 MG PER 1/2TAB PO SCH (08:13)
[2018-04-19] MEDS: LACTOBACILLUS ACIDOPHILUS CAP (BACID) PO SCH ×3 (08:13→17:06)
[2018-04-19] MEDS: ATORVASTATIN 10 MG TAB PO SCH (08:13)
[2018-04-19] MEDS: TORSEMIDE 20 MG TAB PO SCH ×2 (08:13→17:06)
[2018-04-19] MEDS: SPIRONOLACTONE 25 MG TAB PO SCH ×2 (08:13→21:07)
[2018-04-19] MEDS: METOCLOPRAMIDE 10 MG TAB PO SCH ×3 (08:13→21:07)
[2018-04-19] MEDS: DULoxetine 30 MG CAP (CYMBALTA) PO SCH ×2 (08:13→21:06)
[2018-04-19] MEDS: PREGABALIN 75 MG CAP(LYRICA) PO SCH ×2 (08:13→21:06)
[2018-04-19] MEDS: TAMSULOSIN 0.4 MG CAP PO SCH (08:13)
[2018-04-19] MEDS: AQUAPHOR **100GM** OINT TOP SCH ×3 (08:14→21:08)
[2018-04-19] MEDS: LACTIC ACID 12% LOTION 225 GM BTL TOP SCH ×2 (08:14→21:08)
[2018-04-19] MEDS: TRIAMCINOLONE ACETONIDE 0.025 % 80 GM CREAM TOP SCH ×2 (08:14→21:08)
--- NOTE | 2018-04-19 11:47 | IPNPDOC ---
Date Seen The patient was seen on 04/19/18. Progress Note SUBJECTIVE: Patient is a 72-year-old female with dysuria, urinary urgency, and urinary frequency. Patient is evaluated at bedside this morning. She states that she feels more rested today. No concerns at this current time. Upon follow-up reevaluation patient's is at bedside with questions regarding plans for outpatient treatment and potential discharge. OBJECTIVE PHYSICAL EXAMINATION: VITAL SIGNS: Please see below. GENERAL: Well nourished, well developed female, alert and conversant, appears stated age, appropriately dressed, no acute distress. HEENT: Atraumatic, normocephalic, PERRL, EOMI, oral mucosa appears pink and moist, nasal septum appears midline, dentures present, nares are patent. CARDIOVASCULAR: Regular rate and rhythm, normal S1 and S2, no murmur, rub, click. RESPIRATORY: Clear to auscultation bilaterally, adequate inspiratory and expirat ory airway excursion, symmetric airway entry, no focal consolidations, no wheeze, rhonchi, crackles. ABDOMINAL: Round, soft, non-tender, non-distended, no guarding, no rebound, bowel sounds appreciated, multiple small isolated brown papules noted on the abdomen. EXTREMITIES: Left foot is wrapped in Kerlix, left hallux erythema significantly improved, improving ecchymosis of the medial aspect of the second toe digit on the left, no clubbing, no cyanosis, no peripheral edema, peripheral pulses int act, isolated small brown papules scattered throughout lower extremities bilaterally. NEUROLOGICAL: No focal neurological deficits. PSYCHOLOGICAL: Mood and affect appropriate. LABORATORY DATA, IMAGING STUDIES, MICROBIOLOGY: Please see below. Left complete foot x-ray on 04/12/2018 - No acute fracture or dislocation. Renal ultrasound on 04/16/2018 - Dilated urinary bladder, 6 mm cath placed lower pole left kidney. CT abdomen and pelvis without contrast on 04/16/2018 - Moderate to marked diste ntion of stomach, moderate stool burden throughout:, Mild segmental atrophy of proximal, social pancreatic lesion/neoplasm cannot be excluded, 4 mm nonobstructing left lower renal pole stone, splenic calcified granuloma, right lung base calcified granuloma, infrarenal IVC filter. Abdominal x-ray on 04/16/2018 - No evidence of small bowel obstruction, moderate to large amount of stool burden. Voiding cystourethrogram on 04/17/2018 - Irregularity and narrowing of the origin of the celiac axis with post-stenotic dilation, suggestive of median arcuate ligament syndrome, SMA and CHARISSE patent. MRI abdomen without followed by with contrast on 04/17/2018 - tiny pancreatic cysts compatible with chronic pancreatitis changes. No mass lesion observed. DVT prophylaxis ordered?: Heparin 5,000 units subcutaneously every 8 hours. ASSESSMENT AND PLAN: This is a 72-year-old female with dysuria, urinary frequency, urinary urgency found to have recurrent urinary tract infection with Escherichia coli ESBL. PROBLEMS: 1. Dysuria with urinary frequency and urinary urgency with underlying Esch erichia coli ESBL UTI: Urine culture positive for Escherichia coli ESBL. Infectious disease consulted. Recommend 2 weeks of ertapenem IV with a completion date on 04/30/2018. PICC line placed. Will require coordination with infusion company and home health for administration and management of antibiotic infusions. Urology consulted. Recommend discontinuing cranberry extract, oxybutynin, and scopolamine; starting Flomax, waiting on a 2 hour schedule, encouraging water intake, and starting MiraLAX daily. Although Flomax has a 5% cross-reactivity with sulfa patient does not appear to be experiencing any adverse effects. Oxybutynin has been discontinued. Patient to follow-up with urology outpatient. Could consider outpatient cystoscopy. 2. Constipation: Continue MiraLAX, milk of magnesia as needed, lactulose, and Senokot. Status-post one-time fleet enema. 3. Left hallux gout: No trauma. Left foot x-ray negative for fracture or dislocation. Significantly improved. Continue Colchicine. Holding Allopurinol. 4. Proximal pancreatic tail atrophy with questionable lesion with underlying chronic pancreatitis: MRI imaging revealed chronic pancreatitis. 5. Headache: Fioricet as needed. 6. Chronic back pain: Continue Percocet and heating pad. Will monitor for the time being. May increase Percocet if needed. 7. Chronic kidney disease, stage III: Appears to be near baseline with a creatinine. Continue spironolactone and torsemide. 8. Diabetes mellitus with gastroparesis and neuropathy: Continue with increased sliding scale insulin before meals and at bedtime as patient's blood glucose measurements are elevated, fingersticks before meals and at bedtime, and hypoglycemic protocol. Continue metoclopramide. Continue consistent carbohydrate diet. Patient takes Tresiba 80 units subcutaneous daily. Not on formulary. Substituted with Levemir at full dose. 9. Hypertension: Continue bisoprolol, spironolactone, and torsemide. 10. Obstructive pulmonary disease: Continue albuterol nebulizer as needed. 11. Depression: Continue duloxetine. 12. Seizure disorder: Continue Keppra. 13. Gastroesophageal reflux disease: Continue Prilosec. 14. Urinary retention: Appears to be retaining urine on post-void residual bladder scan. Discontinued Oxybutynin. 15. Restless leg syndrome: Continue Requip. 16. Obstructive sleep apnea: MATT protocol. 17. Skin abnormalities: Continue various lotions and ointments that patient uses at home, including triamcinolone topical, nystatin cream and ointment, lactic acid lotion, betamethasone ointment. Provided Aquaphor. DISPOSITION: Pending infusion center teaching. Potential discharge in next 24 hours. VS, I&O, 24H, Fishbone Vital Signs/I&O Vital Signs Date Time Temp Pulse Resp B/P (MAP) Pulse Ox O2 Delivery O2 Flow Rate FiO2 04/19/18 10:24 2.0 04/19/18 08:13 94 132/79 04/19/18 06:05 17 96 Nasal Cannula 04/19/18 06:00 97.8 I&O- Last 24 Hours up to 6 AM 04/19/18 05:59 Intake Total 990 ml Output Total 2750 ml Balance -1760 ml Laboratory Data 24H LABS Laboratory Tests 2 04/18/18 13:04: Bedside Glucose (Misc Panel) 352H 04/18/18 17:28: Bedside Glucose (Misc Panel) 308H 04/18/18 19:52: Bedside Glucose (Misc Panel) 405H 04/19/18 05:29: Nucleated Red Blood Cells % (auto) 0.0, Anion Gap 12, Glomerular Filtration Rate 33.4L, Blood Urea Nitrogen 39H, Creatinine 1.61H, Sodium Level 136, Potassium Level 3.5, Chloride Level 92L, Carbon Dioxide Level 32, Calcium Level 9.2 CBC/BMP Laboratory Tests 04/19/18 05:29 Red Blood Count 4.83, Mean Corpuscular Volume 72.5 L, Mean Corpuscular Hemoglobin 20.5 L, Mean Corpuscular Hemoglobin Concent 28.3 L, Red Cell Distribution Width 18.3 H, Calcium Level 9.2 Microbiology Microbiology 04/12/18 Blood Culture - Final, Complete NO GROWTH AFTER 5 DAYS 04/12/18 Blood Culture - Final, Complete NO GROWTH AFTER 5 DAYS 04/17/18 Urine Culture - Final, Complete 04/12/18 Urine Culture - Final, Complete E.coli Esbl KALEY DIAZ DO Apr 19, 2018 11:47
[2018-04-19 14:00] VITALS: BP 108/53
[2018-04-19] MEDS: PERCOCET 5MG/325MG TAB PO PRN ×2 (15:16→21:18)
[2018-04-19] MEDS: ERTAPENEM SODIUM 1 GM in NS MINI-BAG PLUS 50 ML IV SCH (17:06)
[2018-04-19] MEDS: BETAMETHASONE VAL 0.1% OINT 15 GM TOP SCH (21:08)
[2018-04-19 22:00] VITALS: BP 138/66
[2018-04-20] MEDS: SODIUM CHLORIDE 0.9% INJ 10 ML SYR IV SCH ×3 (05:29→17:13)
[2018-04-20] MEDS: rOPINIRole 1MG TAB PO SCH ×2 (05:29→21:41)
[2018-04-20] MEDS: HEPARIN SOD (PORCINE) 5000 UNITS/ML VIAL SC SCH ×3 (05:29→21:44)
[2018-04-20 05:58] LABS: HEMATOCRIT 33.1 % (36.0-47.0); HEMOGLOBIN 9.5 g/dl (12.0-15.5); MEAN CORPUSCULAR HEMOGLOBIN 20.6 pg (27.0-33.0); MEAN CORPUSCULAR HGB CONC 28.7 g/dl (32.0-36.5); MEAN CORPUSCULAR VOLUME 71.8 fl (80.0-96.0); PLATELET COUNT, AUTOMATED 257 10^3/uL (150-450); RED BLOOD COUNT 4.61 10^6/uL (4.00-5.40); WHITE BLOOD COUNT 7.7 10^3/uL (4.0-10.0)
[2018-04-20 06:00] VITALS: BP 128/66
[2018-04-20 06:21] LABS: CALCIUM LEVEL 8.7 MG/DL (8.8-10.2); CREATININE FOR GFR 1.56 MG/DL (0.55-1.30); GLOMERULAR FILTRATION RATE 34.6 (>39); POTASSIUM SERUM 3.6 MEQ/L (3.5-5.1)
[2018-04-20] MEDS: PREGABALIN 75 MG CAP(LYRICA) PO SCH ×2 (07:56→21:41)
[2018-04-20] MEDS: LACTULOSE 20 GM/30 ML SYRUP UD PO SCH ×2 (07:56→21:40)
[2018-04-20] MEDS: LACTOBACILLUS ACIDOPHILUS CAP (BACID) PO SCH ×3 (07:56→17:13)
[2018-04-20] MEDS: HumaLOG INSULIN (NovoLOG) PER UNIT SC SCH ×4 (07:56→21:42)
[2018-04-20] MEDS: MIRALAX *UNIT DOSE* 17GM PACKET PO SCH (07:56)
[2018-04-20] MEDS: DULoxetine 30 MG CAP (CYMBALTA) PO SCH ×2 (07:57→21:41)
[2018-04-20] MEDS: BISOPROLOL FUM 2.5 MG PER 1/2TAB PO SCH (07:57)
[2018-04-20] MEDS: SENNA 8.6 MG TAB (SENOKOT) PO SCH ×2 (07:58→21:41)
[2018-04-20] MEDS: METOCLOPRAMIDE 10 MG TAB PO SCH ×3 (07:58→21:41)
[2018-04-20] MEDS: TORSEMIDE 20 MG TAB PO SCH ×2 (07:58→17:13)
[2018-04-20] MEDS: COLCHICINE 0.6 MG TAB PO SCH (07:58)
[2018-04-20] MEDS: TAMSULOSIN 0.4 MG CAP PO SCH (07:58)
[2018-04-20] MEDS: OMEPRAZOLE 20 MG CAP PO SCH ×2 (07:58→21:40)
[2018-04-20] MEDS: levETIRAcetam 250MG TABLET (KEPPRA) PO SCH ×2 (07:58→21:41)
[2018-04-20] MEDS: SPIRONOLACTONE 25 MG TAB PO SCH ×2 (07:59→21:41)
[2018-04-20] MEDS: DOCUSATE SODIUM 100 MG CAP PO SCH ×2 (07:59→21:40)
[2018-04-20] MEDS: LEVEMIR (INSULIN DETEMIR) 1 UNITS/0.01ML SC SCH (07:59)
[2018-04-20] MEDS: ATORVASTATIN 10 MG TAB PO SCH (07:59)
[2018-04-20] MEDS: AQUAPHOR **100GM** OINT TOP SCH ×3 (08:00→21:42)
[2018-04-20] MEDS: LACTIC ACID 12% LOTION 225 GM BTL TOP SCH ×2 (08:00→21:00)
[2018-04-20] MEDS: TRIAMCINOLONE ACETONIDE 0.025 % 80 GM CREAM TOP SCH ×2 (08:01→21:42)
--- NOTE | 2018-04-20 08:02 | REP ---
Procedure: PICC line insertion with Tony The procedure was performed under the direct supervision of Dr. Wang. The risks and benefits of the procedure were explained to the patient and informed consent was obtained. The left basilic vein was localized using ultrasound guidance. The skin was prepped and draped in a sterile fashion. 1% lidocaine was used as a local anesthetic. Using ultrasound guidance the basilic vein was cannulated and a 0.018 guidewire was inserted and advanced to the SVC using fluoroscopic guidance. The needle was removed and a 4.5 Guamanian dilator and peel-away sheath was inserted over the guide wire. A 4.5 Guamanian single lumen catheter was cut to length of 44 cm. The dilator was removed and the catheter was inserted over the guide wire with the tip ending in the SVC. The peel-away sheath was removed and the catheter was flushed with heparinized saline as per Hospital protocol. The catheter was affixed to the skin and a sterile dressing was applied. The patient tolerated the procedure well and there were no immediate complications. 0.7 minutes of fluoro time was utilized for this procedure. Reviewed by FLOR Rosales 04/18/2018 05:27 P Electronically Signed by Hua Wang MD 04/18/2018 05:58 P
--- NOTE | 2018-04-20 11:46 | DS.PDOC ---
Discharge Summary General Date of Admission Apr 12, 2018 at 17:30 Date of Discharge 04/20/2018 Primary Care Physician: Jr Villalobos Collins Attending Physician: GURVINDER LEONARD MD Specialist/Consultants Involve: Eduardo Art MD Specialist/Consultants Involve Urology: Dr. Mares Discharge Summary PROCEDURES PERFORMED DURING STAY: None. ADMITTING DIAGNOSES: 1. Dysuria with urinary frequency and urinary urgency. 2. Cough with productive sputum. 3. Left great toe redness is bruising. 4. Chronic kidney disease, stage III. 5. Diabetes mellitus with gastroparesis and neuropathy. 6. Hypertension. 7. Chronic obstructive pulmonary disease. 8. Depression. 9. Seizure disorder. 10. Gastro-esophageal reflux disease. 11. Overactive bladder. 12. Restless leg syndrome. 13. Obstructive sleep apnea. DISCHARGE DIAGNOSES: 1. Recurrent urinary tract infection with Escherichia coli ESBL. 2. Gout exacerbation. 3. Hypokalemia. 5. Questionable pancreatic mass with imaging result indicating chronic pancreatitis. 6. Constipation. 7. Urinary retention 8. Ureteral stone. COMPLICATIONS/CHIEF COMPLAINT: UTI, chronic kidney disease.. HISTORY OF PRESENT ILLNESS: Ms. Stern is a 72-year-old female who presents to [facility]'s emergency Department with dysuria. Past medical history significant for dyslipidemia, diabetes mellitus, morbid obesity, hypertension, chronic obstructive pulmonary disease, history of deep venous thrombosis/pulmonary embolism, gout, migraine, seizure, gastroesophageal reflux disease, depression, chronic kidney disease, stage III, chronic back pain, obstructive sleep apnea, chronic and recurrent urinary tract infections with Escherichia coli as well as ESBL, history of Clostridium difficile infection, chronic hypoxic respiratory failure, obesity hypoventilation syndrom e, restless leg syndrome, constipation, diastolic dysfunction with a left ventricular ejection fraction 6065%. Patient states that she has been experiencing dysuria with urinary frequency and urinary urgency since last week. She had a regular routine follow-up with local director sterile processing her change in urine for urinalysis and urine culture. Urine culture is positive for urinary tract infection with ESBL. Patient is not Al catheter dependent. Patient stated that she attempted self catheterization, but it was unsuccessful. She does not report any fevers although she does state that she alternates between hot and cold flashes. She has a headache that is all over and feels nauseous with dry heaving. She is not vomiting nor does she have abdominal pain. She does have chronic back pain which she currently rates at 7/10. She also reports pruritic brown skin rashes or isolated papules on her hands and thighs. Patient also reports a cough productive of yellow sputum. There are no sick contacts at home. She reports being up-to-date on her pneumonia and influenza vaccines. Patient states that she also has a red left great toe with some bruising around the second toe digit. She does not report any trauma to the area. Patient was most recently admitted from for urinary tract infection and gastritis. During this hospitalization patient was initially started on IV Levaquin which was continued at 750 mg every 48 hours. Urine culture returned and was positive for ESBL and patient was switched to IV ertapenem. Patient was discharged on IV ertapenem for 10 days. Emergency department evaluation reveals stable vital signs with a normal CBC. Renal insufficiency noted with a creatinine of 1.53. Patient has normal lactic acid. Urine culture from 04/06/2018 is positive for ESBL which is sensitive to ertapenem with an GORDY of <0.5. Hospitalist service was consulted and patient was referred medical management. HOSPITAL COURSE: Patient was admitted for further medical management. Urine culture was positive for Escherichia coli ESBL. Started patient on IV ertapenem. Repeated a urine culture which was subsequently negative. Consulted infectious disease who recommended extended IV antibiotic therapy with ertapenem 1 g every 24 hours for 2 weeks. Obtained a left foot x-ray which was unrevealing. Restarted patient's colchicine with improvement in left toe erythema and pain. Patient developed acute exacerbation of chronic back pain. Heating pad was provided. Electrolyte derangements were appropriately supplemented. Urology consulted. Recommended various imaging which is resulted below. Further recommendations include discontinuing oxybutynin, scopolamine, and cranberry extract. Recommend that patient start voiding every 2 hours, improve order intake, and starting MiraLAX daily. Further recommendations included starting Flomax for urinary retention is obtaining outpatient cystoscopy. Incidentally noted on imaging was questionable pancreatic mass. Follow-up MRI was obtained as suggested by radiology which revealed chronic pancreatitis. Patient improved sy mptomatically throughout hospitalization was stable at time of discharge. Infusion company changed. Patient remained stable with discharge on 04/21/2018. DISCHARGE MEDICATIONS: Please see below. ALLERGIES: Please see below. PHYSICAL EXAMINATION ON DISCHARGE: VITAL SIGNS: Please see below. GENERAL: Well nourished, well developed female, alert and conversant, appears stated age, appropriately dressed, no acute distress. HEENT: Atraumatic, normocephalic, PERRL, EOMI, oral mucosa appears pink and moist, nasal septum appears midline, dentures present, nares are patent. CARDIOVASCULAR: Regular rate and rhythm, normal S1 and S2, no murmur, rub, click. RESPIRATORY: Clear to auscultation bilaterally, adequate inspiratory and expiratory airway excursion, symmetric airway entry, no focal consolidations, no wheeze, rhonchi, crackles. ABDOMINAL: Round, soft, non-tender, non-distended, no guarding, no rebound, bowel sounds appreciated, multiple small isolated brown papules noted on the abdomen. EXTREMITIES: Left foot is wrapped in Kerlix, left hallux erythema significantly improved, improving ecchymosis of the medial aspect of the second toe digit on the left, no clubbing, no cyanosis, no peripheral edema, peripheral pulses intact, isolated small brown papules scattered throughout lower extremities bilaterally. NEUROLOGICAL: No focal neurological deficits. PSYCHOLOGICAL: Mood and affect appropriate. LABORATORY DATA: Please see below. IMAGIN. Left complete foot x-ray on 04/12/2018 - No acute fracture or dislocation. 2. Renal ultrasound on 04/16/2018 - Dilated urinary bladder, 6 mm cath placed lower pole left kidney. 3. CT abdomen and pelvis without contrast on 04/16/2018 - Moderate to marked distention of stomach, moderate stool burden throughout:, Mild segmental atrophy of proximal, social pancreatic lesion/neoplasm cannot be excluded, 4 mm nonobstructing left lower renal pole stone, splenic calcified granuloma, right lung base calcified granuloma, infrarenal IVC filter. 4. Abdominal x-ray on 04/16/2018 - No evidence of small bowel obstruction, moderate to large amount of stool burden. 5. Voiding cystourethrogram on 04/17/2018 - Irregularity and narrowing of the origin of the celiac axis with post-stenotic dilation, suggestive of median arcuate ligament syndrome, SMA and CHARISSE patent. 6. MRI abdomen without followed by with contrast on 04/17/2018 - tiny pancreatic cysts compatible with chronic pancreatitis changes. No mass lesion observed. 7. PICC line placement. PROGNOSIS: Stable. ACTIVITY: As tolerated. DIET: Consistent carbohydrate. DISCHARGE PLAN: Problem: Managing health at home Goal: Improve health & wellness Instructions: Follow DC Instruction DISPOSITION: Home with services. DISCHARGE INSTRUCTIONS: 1. STOP taking oxybutynin. 2. STOP taking cranberry extract. 3. STOP using scopolamine. 4. START taking Flomax 0.4 mg by mouth daily. 5. START taking MiraLAX daily. 6. Follow-up with primary care provider, Dr. Villalobos, in 7-10 days. 7. Follow-up with urologist, Dr. Rivera, in 10-14 days. 8. Follow-up with infectious disease, Dr. Jos Art, in 2-3 weeks. 9. Resume inpatient home health services. 10. Complete IV antibiotic therapy as outlined by Jake. 11. Return to the nearest emergency department should symptoms worsen or persist. ITEMS TO FOLLOWUP ON ON OUTPATIENT: 1. IV antibiotic therapy. 2. Outpatient cystoscopy. DISCHARGE CONDITION: Stable. TIME SPENT ON DISCHARGE: Greater than 30 minutes. Vital Signs/I&Os Vital Signs Date Time Temp Pulse Resp B/P (MAP) Pulse Ox O2 Delivery O2 Flow Rate FiO2 04/20/18 09:50 2.0 04/20/18 07:57 89 132/64 04/20/18 06:00 98.0 16 97 Nasal Cannula I&O- Last 24 Hours up to 6 AM 04/20/18 06:00 Intake Total 1523 ml Output Total 600 ml Balance 923 ml Laboratory Data Labs 24H Laboratory Tests 2 04/19/18 11:51: Bedside Glucose (Misc Panel) 371H 04/20/18 05:32: Nucleated Red Blood Cells % (auto) 0.0, Anion Gap 9, Glomerular Filtration Rate 34.6L, Blood Urea Nitrogen 35H, Creatinine 1.56H, Sodium Level 136, Potassium Level 3.6, Chloride Level 90L, Carbon Dioxide Level 37H, Calcium Level 8.7L CBC/BMP Laboratory Tests 04/20/18 05:32 Red Blood Count 4.61, Mean Corpuscular Volume 71.8 L, Mean Corpuscular Hemoglobin 20.6 L, Mean Corpuscular Hemoglobin Concent 28.7 L, Red Cell Distribution Width 18.0 H, Calcium Level 8.7 L FSBS Laboratory Tests Test 04/19/18 11:51 Range/Units Bedside Glucose (Misc Panel) 371 83-110 MG/DL Microbiology Microbiology 04/12/18 Blood Culture - Final, Complete NO GROWTH AFTER 5 DAYS 04/12/18 Blood Culture - Final, Complete NO GROWTH AFTER 5 DAYS 04/17/18 Urine Culture - Final, Complete 04/12/18 Urine Culture - Final, Complete E.coli Esbl Discharge Medications Scheduled (Amitiza) 24 Mcg Cap, 24 MCG PO QHS, (Reported) (Tresiba Flextouch) 100 Unit/Ml Inj, 80 UNIT SC DAILY, (Reported) Allopurinol (Zyloprim) 300 Mg Tab, 300 MG PO DAILY, (Reported) Ammonium Lactate (Ammonium Lactate) 12 % Cre, 1 DOSE TOP BID, (Reported) APPLY TO LEGS/FEET Atorvastatin Calcium (Atorvastatin Calcium) 10 Mg Tab, 10 MG PO DAILY, (Reported) Betamethasone Mala (Betamethasone Valerate) 45 Gm Oint, 1 DOSE TOP QHS, (Reported) USES ON LEGS FOR HOTSPOTS Bisoprolol Fumarate (Bisoprolol Fumarate) 5 Mg Tab, 2.5 MG PO DAILY, (Reported) Calcitriol (Calcitriol) 0.25 Mcg Cap, 0.25 MCG PO DAILY, (Reported) Colchicine (Colchicine) 0.6 Mg Tab, 0.6 MG PO DAILY, (Reported) Docusate Sodium (Docusate Sodium) 100 Mg Cap, 100 MG PO BID, (Reported) Duloxetine Hcl (Duloxetine HCl) 60 Mg Cap, 60 MG PO BID, (Reported) Ergocalciferol (Vitamin D) 50,000 Unit Cap, 50,000 UNIT PO MTHLY, (Reported) TAKES ON 1ST OF THE MONTH Estradiol (Estrace) 0.1 Mg/Gm Cre, 1 DOSE PV 3XW, (Reported) TAKES TUESDAY, TUESDAY AND TUESDAY AT QHS Insulin Human Lispro (Humalog) 1 Units/0.01 Ml Inj, 1 DOSE SC AC, (Reported) PER SLIDING SCALE < 70: TREAT LBS WITH 15 G CARBS 70 -90: 46, 46, 46 91-130: 52, 52, 52, 8 FOR NIGHT SNACK 131-150: 56, 56, 56, 10 FOR NIGHT SNACK 151-200: 60, 60, 60, 12 FOR NIGHT SNACK, 4 UNITS NPO 201-250: 66, 66, 66, 14 FOR NIGHT SNACK, 6 UNITS NPO 251-300: 72, 72, 72, 16 FOR NIGHT SNACK, 8 UNITS NPO 301-350: 78, 78, 78, 18 FOR NIGHT SNACK, 10 UNITS NPO 351-400: 82, 82, 82, 20 FOR NIGHT SNACK, 14 UNITS NPO 401-450: 86, 86, 86, 22 FOR NIGHT SNACK, 18 UNITS NPO > 450: 90, 90, 90, 24 FOR NIGHT SNACK, 22 UNITS NPO Lactulose (Lactulose) 10 Gm/15 Ml Kelli, 30 ML PO BID, (Reported) Levetiracetam (Keppra) 500 Mg Tab, 500 MG PO BID, (Reported) Levofloxacin Hemihydrate (Levofloxacin) 500 Mg Tab, 500 MG PO DAILY, (Reported) Metoclopramide HCl (Metoclopramide HCl) 10 Mg Tab, 10 MG PO TID, (Reported) Omeprazole (Omeprazole) 20 Mg Cap, 20 MG PO BID, (Reported) Polyethylene Glycol (Peg 3350) 1 Pkt Pow, 1 PKT PO DAILY Potassium Chloride (Klor-Con M10) 10 Meq Tabcr, 20 MEQ PO DAILY, (Reported) Pregabalin (Lyrica) 150 Mg Cap, 150 MG PO BID, (Reported) Ropinirole Hydrochloride (Ropinirole HCl) 1 Mg Tab, 2 MG PO DAILY, (Reported) TAKES AT 0630 Ropinirole Hydrochloride (Ropinirole HCl) 1 Mg Tab, 2 MG PO QHS, (Reported) Senna (Senna-Lax) 8.6 Mg Tab, 17.2 MG PO BID, (Reported) Spironolactone (Spironolactone) 25 Mg Tab, 25 MG PO BID, (Reported) Sucralfate (Sucralfate) 1 Gm Tab, 1 GM PO BID, (Reported) Tamsulosin Hydrochloride (Flomax) 0.4 Mg Cap, 0.4 MG PO DAILY Torsemide (Torsemide) 20 Mg Tab, 60 MG PO BID, (Reported) Triamcinolone Acet (Triamcinolone Acetonide 0.025% Crm) 1 Dose/80 Gm Cream, 1 DOSE TOP BID, (Reported) APPLIES ON THIGHS Scheduled PRN Acetaminophen (Tylenol 8 Hour Arthritis) 650 Mg Tab, 650 MG PO Q8H PRN for PAIN, (Reported) Albuterol Sulfate (Albuterol Sulfate) 2.5 Mg/3 Ml Nebu, 2.5 MG INH Q4H PRN for SHORTNESS OF BREATH, (Reported) Benzonatate (Benzonatate) 100 Mg Cap, 100 MG PO TID PRN for COUGH, (Reported) Guaifenesin (Guaifenesin ER) 600 Mg Tab, 600 MG PO BID PRN for CONGESTION, (Reported) Halobetasol Propionate (Halobetasol Propionate) 0.05 % Cre, 1 DOSE TOP for RASH, (Reported) APPLIES UNDER FOLDS AND BREASTS Milk Of Magnesia (Milk of Magnesia) 1,200 Mg/15 Ml Esperanza, 30 ML PO DAILY PRN for CONSTIPATION, (Reported) Nystatin (Nystatin) 100,000 Unit/Gm Cre, 1 DOSE TOP BID PRN for RASH, (Reported) UNDER BREASTS AND GROIN AREA Nystatin (Nystatin Oint) 30 Gm Oint, 1 DOSE TOP TID PRN for RASH, (Reported) APPLIES AROUND VAGINAL AREA Ondansetron HCl (Ondansetron HCl) 4 Mg Tab, 4 MG PO QID PRN for NAUSEA OR VOMITING, (Reported) Allergies Coded Allergies: Cephalosporins (Verified Allergy, Intermediate, KEFLEX - HIVES, 01/23/18) Chlorpromazine (Verified Allergy, Intermediate, HIVES, 01/23/18) Loratadine (Verified Allergy, Intermediate, HIVES, 01/23/18) Penicillins (Verified Allergy, Intermediate, HIVES, 01/23/18) Pentazocine (Verified Allergy, Intermediate, HIVES, 01/23/18) Sulfa Antibiotics (Unverified Allergy, Intermediate, HIVES, 01/23/18) Methadone (Verified Allergy, Unknown, 01/23/18) Latex (Verified Adverse Reaction, Mild, RISK, 01/23/18) KALEY DIAZ DO Apr 20, 2018 11:46
[2018-04-20] MEDS ORDERED: PEG1POW PO (11:48)
[2018-04-20] MEDS: PERCOCET 5MG/325MG TAB PO PRN ×2 (11:58→21:45)
[2018-04-20 14:00] VITALS: BP 112/45
[2018-04-20] MEDS: ERTAPENEM SODIUM 1 GM in NS MINI-BAG PLUS 50 ML IV SCH (17:13)
[2018-04-20] MEDS: BETAMETHASONE VAL 0.1% OINT 15 GM TOP SCH (21:00)
--- NOTE | 2018-04-20 21:24 | IPN ---
INFECTIOUS DISEASE PROGRESS NOTE: DATE: 04/20/2018 SUBJECTIVE The patient is seen at bedside. She states that she is feeling better. She is still having some dysuria, however, the burning is less than it has been in the past. She denies any fevers, chills, nausea, vomiting or diarrhea. PHYSICAL EXAMINATION Vitals: Temperature 97.9, pulse 74, respiratory rate 16, blood pressure 112/45, pulse oximetry is 92% on room air. General: Pleasant, awake and conversant. No acute distress. HEENT: The patient has her dentures in today. Mucous membranes are moist. Eyes are clear. Neck: Supple, no lymphadenopathy is appreciated. Lungs: Clear to auscultation bilaterally. No wheezes, rhonchi or rales. Heart: Regular rate and rhythm. No murmurs, gallops or rubs. Abdomen: Soft, obese, normoactive bowel sounds. No pain to palpation in all four quadrants. Extremities: No clubbing or erythema is noted. Ecchymosis since of the left great toe is much improved. The patient has good pulses bilaterally. LABORATORY DATA CBC: WBC 7.3, hemoglobin 9.5, hematocrit 33.1, platelets 257. Chemistry: Sodium 138, potassium 3.6, chloride 90, carbon dioxide 37, BUN 35, creatinine 1.56, fasting glucose 291, calcium 8.7. Urine culture from 04/17/2018 is negative. Voiding cystogram from 04/17/2018 showed moderate postvoid residual, incomplete emptying, large amounts of colonic stool, mild pulse was residual. Abdomen MRI from 04/17/2018 showed a few tiny diuretics cysts compatible with chronic pancreatitis changes. No significant cyst or mass lesion is observed. ASSESSMENT: This is a 72-year-old female with chronic recurrent UTIs. She is on a day #8 of ertapenem. As we have only given her 2 weeks of antibiotics in the past and these have recurred, a longer duration of treatment may be necessary. We have written for an extra 14 days of ertapenem to be given at home when she is discharged tomorrow. Infectious disease is signing off at this point. Thank you for allowing us to participate in the care of your patient. My faculty preceptor for this patient encounter was physically present during the encounter and was fully available. All aspects of the patient interview, examination, medical decision making process, and medical care plan development were reviewed and approved by the faculty preceptor. The faculty preceptor is aware and concurs with the plan as stated in the body of this note and will attest to such by his/her co-signature. JOSE R
[2018-04-20 22:00] VITALS: BP 121/57
[2018-04-21] MEDS: HEPARIN SOD (PORCINE) 5000 UNITS/ML VIAL SC SCH (05:53)
[2018-04-21] MEDS: rOPINIRole 1MG TAB PO SCH (05:53)
[2018-04-21] MEDS: SODIUM CHLORIDE 0.9% INJ 10 ML SYR IV SCH ×2 (05:54→08:59)
[2018-04-21 06:00] VITALS: BP 122/58
[2018-04-21 06:17] LABS: HEMATOCRIT 32.7 % (36.0-47.0); HEMOGLOBIN 9.3 g/dl (12.0-15.5); MEAN CORPUSCULAR HEMOGLOBIN 20.8 pg (27.0-33.0); MEAN CORPUSCULAR HGB CONC 28.4 g/dl (32.0-36.5); MEAN CORPUSCULAR VOLUME 73.2 fl (80.0-96.0); PLATELET COUNT, AUTOMATED 243 10^3/uL (150-450); RED BLOOD COUNT 4.47 10^6/uL (4.00-5.40); WHITE BLOOD COUNT 7.4 10^3/uL (4.0-10.0)
[2018-04-21 06:45] LABS: CALCIUM LEVEL 8.5 MG/DL (8.8-10.2); CREATININE FOR GFR 1.45 MG/DL (0.55-1.30); GLOMERULAR FILTRATION RATE 37.7 (>39); POTASSIUM SERUM 3.6 MEQ/L (3.5-5.1)
[2018-04-21] MEDS: OMEPRAZOLE 20 MG CAP PO SCH (08:56)
[2018-04-21] MEDS: SENNA 8.6 MG TAB (SENOKOT) PO SCH (08:56)
[2018-04-21] MEDS: LACTOBACILLUS ACIDOPHILUS CAP (BACID) PO SCH ×2 (08:56→12:01)
[2018-04-21] MEDS: TORSEMIDE 20 MG TAB PO SCH (08:56)
[2018-04-21] MEDS: levETIRAcetam 250MG TABLET (KEPPRA) PO SCH (08:56)
[2018-04-21] MEDS: ATORVASTATIN 10 MG TAB PO SCH (08:56)
[2018-04-21] MEDS: DULoxetine 30 MG CAP (CYMBALTA) PO SCH (08:56)
[2018-04-21] MEDS: DOCUSATE SODIUM 100 MG CAP PO SCH (08:56)
[2018-04-21 08:57] VITALS: BP 122/58
[2018-04-21] MEDS: BISOPROLOL FUM 2.5 MG PER 1/2TAB PO SCH (08:57)
[2018-04-21] MEDS: METOCLOPRAMIDE 10 MG TAB PO SCH (08:57)
[2018-04-21] MEDS: COLCHICINE 0.6 MG TAB PO SCH (08:57)
[2018-04-21] MEDS: PREGABALIN 75 MG CAP(LYRICA) PO SCH (08:57)
[2018-04-21] MEDS: TAMSULOSIN 0.4 MG CAP PO SCH (08:57)
[2018-04-21] MEDS: SPIRONOLACTONE 25 MG TAB PO SCH (08:57)
[2018-04-21] MEDS: MIRALAX *UNIT DOSE* 17GM PACKET PO SCH (08:58)
[2018-04-21] MEDS: HumaLOG INSULIN (NovoLOG) PER UNIT SC SCH ×2 (08:58→12:00)
[2018-04-21] MEDS: LEVEMIR (INSULIN DETEMIR) 1 UNITS/0.01ML SC SCH (08:58)
[2018-04-21] MEDS: LACTULOSE 20 GM/30 ML SYRUP UD PO SCH (08:58)
[2018-04-21] MEDS: TRIAMCINOLONE ACETONIDE 0.025 % 80 GM CREAM TOP SCH (08:59)
[2018-04-21] MEDS: AQUAPHOR **100GM** OINT TOP SCH (08:59)
[2018-04-21] MEDS: LACTIC ACID 12% LOTION 225 GM BTL TOP SCH (10:36)
[2018-04-21] MEDS: ERTAPENEM SODIUM 1 GM in NS MINI-BAG PLUS 50 ML IV SCH (12:01)
== END 2018-04-21 13:22 | disposition home or self-care (01) | DRG 690 ==
LOC: M ED 13:59 → M ED INP 17:30 → M MSPAV 20:33
PROVIDERS: ADMIT Internal Medicine; ATTEND Internal Medicine
PROC: 02HV33Z Insertion of Infusion Device into Superior Vena Cava, Percutaneous Approach (ICD-10-PCS; principal; 2018-04-19)
DX: N39.0 Urinary tract infection, site not specified (principal); K86.1 Other chronic pancreatitis; N20.1 Calculus of ureter; J96.11 Chronic respiratory failure with hypoxia; E66.2 Morbid (severe) obesity with alveolar hypoventilation; N18.3 Chronic kidney disease, stage 3 (moderate); B96.29 Other Escherichia coli [E. coli] as the cause of diseases classified elsewhere; E87.6 Hypokalemia; K21.9 Gastro-esophageal reflux disease without esophagitis; M10.9 Gout, unspecified; K59.00 Constipation, unspecified; R33.9 Retention of urine, unspecified; G47.33 Obstructive sleep apnea (adult) (pediatric); G25.81 Restless legs syndrome; G40.909 Epilepsy, unspecified, not intractable, without status epilepticus; E11.43 Type 2 diabetes mellitus with diabetic autonomic (poly)neuropathy; I12.9 Hypertensive chronic kidney disease with stage 1 through stage 4 chronic kidney disease, or unspecified chronic kidney disease; E78.5 Hyperlipidemia, unspecified; J44.9 Chronic obstructive pulmonary disease, unspecified; Z86.718 Personal history of other venous thrombosis and embolism; Z86.711 Personal history of pulmonary embolism; M54.5 Low back pain; R05 Cough; Z79.899 Other long term (current) drug therapy; Z79.4 Long term (current) use of insulin; Z88.2 Allergy status to sulfonamides; Z88.0 Allergy status to penicillin; Z91.040 Latex allergy status; Z88.8 Allergy status to other drugs, medicaments and biological substances; F32.9 Major depressive disorder, single episode, unspecified

== ENCOUNTER → 2018-04-25 | Outpatient (REF) | payer MEDICARE, MEDICAID ==
[~2018-04-25] MED LIST changes: +FLOM0.4C39 PO; +PEG1POW PO
[2018-04-25 18:39] LABS: HEMATOCRIT 33.5 % (36.0-47.0); HEMOGLOBIN 9.3 g/dl (12.0-15.5); MEAN CORPUSCULAR HEMOGLOBIN 20.5 pg (27.0-33.0); MEAN CORPUSCULAR HGB CONC 27.8 g/dl (32.0-36.5); PLATELET COUNT, AUTOMATED 266 10^3/uL (150-450); RED BLOOD COUNT 4.53 10^6/uL (4.00-5.40)
[2018-04-25 18:44] LABS: C REACTIVE PROTEIN QUANTITATIV 1.27 MG/DL (0.00-0.30); CALCIUM LEVEL 8.4 MG/DL (8.8-10.2); CREATININE FOR GFR 1.69 MG/DL (0.55-1.30); GLOMERULAR FILTRATION RATE 31.6 (>39); POTASSIUM SERUM 4.7 MEQ/L (3.5-5.1)
== END ==
LOC: M LAB REF 16:55
PROVIDERS: ATTEND Internal Medicine Infectious Disease
DX: N10 Acute pyelonephritis (principal)

== ENCOUNTER → 2018-05-02 | Outpatient (REF) | payer MEDICARE, MEDICAID ==
[2018-05-02 20:00] LABS: HEMATOCRIT 36.7 % (36.0-47.0); HEMOGLOBIN 10.2 g/dl (12.0-15.5); MEAN CORPUSCULAR HEMOGLOBIN 20.8 pg (27.0-33.0); MEAN CORPUSCULAR HGB CONC 27.8 g/dl (32.0-36.5); MEAN CORPUSCULAR VOLUME 74.7 fl (80.0-96.0); PLATELET COUNT, AUTOMATED 248 10^3/uL (150-450); RED BLOOD COUNT 4.91 10^6/uL (4.00-5.40)
[2018-05-02 20:16] LABS: C REACTIVE PROTEIN QUANTITATIV 1.29 MG/DL (0.00-0.30); CALCIUM LEVEL 9.4 MG/DL (8.8-10.2); CREATININE FOR GFR 1.84 MG/DL (0.55-1.30); GLOMERULAR FILTRATION RATE 28.6 (>39); POTASSIUM SERUM 4.4 MEQ/L (3.5-5.1)
== END ==
LOC: M LAB REF 19:26
PROVIDERS: ATTEND Internal Medicine Infectious Disease
DX: N10 Acute pyelonephritis (principal)

== ENCOUNTER → 2018-05-08 | Outpatient (CLI) | payer MEDICARE, MEDICAID ==
[~2018-05-08] MED LIST changes: +ATEN25TA PO; +FLUC100T PO; +LEVE500XR PO; +NUCY50TA19 PO; +ROPI2TAB PO
--- NOTE | 2018-05-15 23:44 | ECWPNPC ---
PATIENT NAME: SHIVANI PAYNE I : 1945 GENDER: FEMALE VISIT DATE: 05/08/2018 DISCHARGE DATE: 05/08/18 1416 VISIT LOCKED DATE TIME: PHYSICIAN: CHERIE AMATO RESOURCE: CHERIE AMATO REASON FOR APPOINTMENT 1. NECK/BACK HISTORY OF PRESENT ILLNESS HISTORY OF PRESENT ILLNESS: HERE FOR F/U OF [facility] UPPER BACK/NECK PAIN.HAS BEEN HAVING SEVERE INCREASE IN NECK PAIN OVER THE PAST MONTH.SHE FEELS OXYCODONE MAY BE CAUSING TOO MUCH FATIGUE AT TIMES.SHE RARELY TAKES THIS.SHE CANT AFFORD ANY MEDICATIONS NOT COVERED BY INSURANCE FULLY.HAS HAD ALLERGIC AND ADVERSE REACTIONS WITH ALL PAIN MEDICINES OTHER THAN OXYCODONE ON HER FORMULARY.DISCUSSED MEDICATION AND TREATMENT OPTIONS. PAIN THE PATIENT DESCRIBES THE PAIN... FALL RISK SCREENING: SCREENING :NO FALLS IN THE PAST YEAR CURRENT MEDICATIONS TAKING BISOPROLOL FUMARATE 5 MG TABLET 1/2 TABLET ORALLY ONCE A DAY TAKING ONDANSETRON 4 MG TABLET DISPERSIBLE 1 TABLET ON TONGUE ORALLY QID TAKING METOCLOPRAMIDE HCL 10 MG TABLET 1 TAB(S) ORALLY TID TAKING OMEPRAZOLE 20 MG CAPSULE DELAYED RELEASE 1 CAPSULE ORALLY BID TAKING SENNA 8.6-50 MG TABLET 2 TADS ORALLY BID TAKING SPIRONOLACTONE 25 MG TABLET 1 TABLET ORALLY BID TAKING SCOPOLAMINE BASE 1.5 MG PATCH 72 HOUR 1 PATCH TO SKIN NEEDED TRANSDERMAL TAKING SUCRALFATE 1 GM/10ML SUSPENSION 10 ML ORALLY TWICE A DAY TAKING POTASSIUM 20 MEQ 2 TABLETS ORAL ONCE DAILY TAKING ALLOPURINOL 300 MG TABLET 1 TABLET ORALLY ONCE A DAY TAKING COLCHICINE 0.6 MG TABLET 1 TABLET ORALLY ONCE A DAY TAKING HUMALOG 100 UNIT/ML SOLUTION SLIDING SCALE SUBCUTANEOUS FOUR TIMES DAILY NEEDED TAKING TRESIBA 200 U/ML 120 UNITA SUBCUTANEOUSLY DAILY TAKING ACETAMINOPHEN-CAFFEINE 500-65 MG TABLET 2 TABLETS NEEDED ORALLY THREE TIMES A DAY TAKING LACTULOSE 20 GM/30ML SOLUTION 30 ML ORALLY BID TAKING LEVETIRACETAM 500 MG TABLET 1 TABLET ORALLY TWICE A DAY TAKING OXYGEN 2 L NASAL CANNULA PRN TAKING NYSTATIN 348642 UNIT/GM CREAM 1 APPLICATION TO AFFECTED AREA EXTERNALLY TWICE A DAY TAKING CRANBERRY 500 MG CAPSULE 1 CAP(S) ORALLY THREE TIMES A DAY TAKING AMMONIUM LACTATE 12 % CREAM 1 APPLICATION TO AFFECTED AREA EXTERNALLY TWICE A DAY TAKING AMITIZA 24 MCG CAPSULE 1 CAPSULE WITH FOOD ORALLY BEFORE BEDTIME TAKING VITAMIN D (ERGOCALCIFEROL) 00859 UNIT CAPSULE 1 CAPSULE ORALLY MONTHLY TAKING ASPIRIN 81 MG TABLET 1 TABLET ORALLY ONCE A DAY TAKING TORSEMIDE 20 MG TABLET 3 TAB ORALLY TWICE DAILY TAKING ROPINIROLE HCL 2 MG TABLET 1 TABLET 1 TO 3 HOURS BEFORE BEDTIME ORALLY BID TAKING TRIAMCINOLONE ACETONIDE 0.025 % CREAM 1 APPLICATION TO AFFECTED AREA EXTERNALLY THIGHS TWICE A DAY TAKING PERCOCET 5-325 MG TABLET 1-2 TAB ORALLY EVERY 6 -8H PRN MDD6 #100 TAKING ALBUTEROL SULFATE (2.5 MG/3ML) 0.083% NEBULIZATION SOLUTION 3 ML NEEDED INHALATION THREE TIMES A DAY TAKING ATORVASTATIN CALCIUM 10 MG TABLET 1 TABLET ORALLY ONCE A DAY TAKING BENZONATATE 100 MG CAPSULE 1 CAPSULE NEEDED ORALLY THREE TIMES A DAY TAKING BETAMETHASONE DIPROPIONATE 0.05 % LOTION 1 APPLICATION TO AFFECTED AREA EXTERNALLY ONCE A DAY TAKING CALCITRIOL 0.25 MCG CAPSULE 1 CAPSULE ORALLY ONCE A DAY TAKING DOCUSATE SODIUM 100 MG CAPSULE 1 CAPSULE NEEDED ORALLY ONCE A DAY TAKING DULOXETINE HCL 60 MG CAPSULE DELAYED RELEASE PARTICLES 1 CAPSULE ORALLY BID TAKING ESTRADIOL 10 % CREAM TAKING LEVOFLOXACIN 500 MG TABLET 1 TABLET ORALLY ONCE A DAY TAKING MILK OF MAGNESIA 1200 MG/15ML SUSPENSION 5 ML NEEDED ORALLY FOUR TIMES A DAY TAKING OXYBUTYNIN CHLORIDE 5 MG TABLET 1 TABLET ORALLY TWICE A DAY TAKING LYRICA 150 MG CAPSULE 1 CAPSULE ORALLY BID TAKING SCOPOLAMINE 1 MG/3DAYS PATCH 72 HOUR 1 PATCH TO SKIN NEEDED TRANSDERMAL NOT-TAKING DUONEB 1 DOSE VIA NEBULIZER TID NEEDED NOT-TAKING LEVAQUIN 500 MG TABLET 1 TABLET ORALLY ONCE A DAY DISCONTINUED HALOBETASOL PROPIONATE 0.05 % CREAM 1 APPLICATION TO AFFECTED AREA EXTERNALLY ONCE A DAY MEDICATION LIST REVIEWED AND RECONCILED WITH THE PATIENT PAST MEDICAL HISTORY NEUROGENIC URINARY RETENTION RECURRENT UTI HYPERTENSION INCONTIENCE,GERD MIGRAINE HX OF HEPATITIS A SEIZURES CATARACTS DVT LEFT LEG TX XARELTO CAUSED GI BLEED/ ALLYSSA FILTER ILEUS [address] TURNER EGD AND COLONOSCOPY TYPE 2 DIABETES ASTHMA KIDNEY DISEASE ARTHRITIS CHF HAS MARCAINE/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 BACK THAT AT PRESENT TIME IS TURNED DOWN TO LOWEST SETTING JUST TO KEEP OPEN PNEUMONIA BASAL CELL CARCINOMA REMOVED FOR FACE LEFT EYE CYCSTS REMOVED ALLERGIES MORPHINE SULFATE: CONTINUOUS INFUSION--SEVERE ITCHING: ALLERGY PENTAZOCINE-NALOXONE: HIVES: ALLERGY CHLORPROMAZINE: HIVES: ALLERGY LORATADINE: HIVES: ALLERGY PENICILLIN (FOR ALLERGIES USE ONLY): HIVES: ALLERGY CEPHALOSPORINS: HIVES: ALLERGY SULFAMETHOXAZOLE-TMP DS: HIVES: ALLERGY SURGICAL HISTORY HYSTERECTOMY AGE 22 L4 -5 DISKECTOMY DIAPHRAGM PARALYZED- RIGHT LOWER LUNG R-BRADY 2013 HITAL HERNIA REPAIR LEFT ANKLE FX- FUSION INFUSAPORT REMOVED INFUSAPORT PLACED INFUSAPORT AND IMPLANTED PAIN PUMP RIGHT HIP REPLACEMENT BASAL CELL CARCINOMA REMOVED FROM FACE LEFT EYE CYSTS REMOVED FAMILY HISTORY FATHER: 80 YRS, DUE TO HEART ATTACK, STROKES, DIAGNOSED WITH HEART DISEASE, OTHER MOTHER: 59 YRS, DUE TO METASIS CANCER, DIAGNOSED WITH CANCER SON(S): ALIVE 2 BROTHER(S) , 2 SISTER(S) - HEALTHY. 2 SON(S) - HEALTHY. 1 SON DUE TO SUICIDE AT AGE 34MOM LUNG AND LIVER CANCERFATHER-ANEURYSM. SOCIAL HISTORY GENERAL: TOBACCO USE ARE YOU A:NONSMOKER ALCOHOL SCREENING DID YOU HAVE A DRINK CONTAINING ALCOHOL IN THE PAST YEAR?NO POINTS0 INTERPRETATIONNEGATIVE RECREATIONAL DRUG USE DRUG USE?NO CAFFEINE CAFFEINE USE?NO COFFEE SEXUAL HX HAD SEX IN THE LAST 12 MONTHS (VAGINAL, ORAL, OR ANAL)?NO HAVE YOU EVER HAD AN STD?NO HIV / HEP-C SCREENING HIV TEST OFFERED TO PATIENT:NO HEP-C TEST OFFERED TO PATIENT:NO PENTECOSTAL [id number] RELIGION LANGUAGE LANGUAGES SPOKEN:KINYARWANDA LEARNING BARRIERS / SPECIAL NEEDS CHANGE FROM LAST VISIT?NO BARRIERS TO LEARNING?NO HEARING IMPAIRED?NO VISION IMPAIRED?NO COGNITIVELY IMPAIRED?NO READINESS TO LEARN?YES LEARNING PREFERENCES?NO EMOTIONAL BARRIERS?NO SPECIAL DEVICES?NO RUBBISH COLLECTION SUPERVISOR NEEDED?NO DOMESTIC VIOLENCE DO YOU FEEL SAFE IN YOUR ENVIRONMENT?YES OCCUPATION: RETIRED. DIET: CARBOHYDRATE CONTROLLED, NO CONCENTRATED SWEETS.. EXERCISE: NONE. MARITAL STATUS: .. OTHERS AT HOME: EX . PAIN CLINIC PFS, CLERGY, PUBLIC HEALTH REFERRALS PFS REFERRAL NEEDED?NO CLERGY REFERRAL NEEDED?NO PUBLIC HEALTH REFERRAL NEEDED?NO WAS THE PROVIDER NOTIFIED OF ANY PERTINENT INFO?NO HAS THE PATIENT BEEN EDUCATED REGARDING HIS/HER PLAN OF CARE?YES HAS THE PATIENT BEEN EDUCATED REGARDING PAIN, THE RISK FOR PAIN, THE IMPORTANCE OF EFFECTIVE PAIN MANAGEMENT, AND THE PAIN ASSESSMENT PROCESS?YES ADVANCE DIRECTIVE ADVANCE DIRECTIVE DISCUSSED WITH PATIENT:YES DECLINED INFO AND ASSISTANCE WITH HCP FORM AT THIS TIME. 05/08/18 HAS VAZQUEZ FORMREVIEWED WITH PT 05/08/18 1324 BV. HOSPITALIZATION/MAJOR DIAGNOSTIC PROCEDURE RELATED FOR SURGERY ADMITTED DUE TO TROUBLE BREATHING 2012 ADMITTED DUE TO CHF ADMITTED OTHER TIMES WELL DUE TO MIGRAINE, SEIZURES, AND ETC ADMITTED DUE TO COPD, CHF, BLOOD INFECTION 04/2015 ADMITTED FOR PORT PLACEMENT 06/2015 FALL 08/2015 PNEOMINA, FLU, CHF, HYPERGYLCEMIA, DEHYDRATION 05/2016 HAD TO HAVE BLOOD TRANSFUSION 04/2017 BLOOD TRANSFUSION 06/2017 SEVERE SOB, LIGHT-HEADEDNESS, CHF, DECREASED FE 08/2017 SEPSIS 04/2018 REVIEW OF SYSTEMS REVIEWED BY: PROVIDER: CHERIE SPENCER . CONSTITUTIONAL: ANY CHANGE IN YOUR MEDICAL CONDITION? YES, CURRENTLY BEING TREATED BY DR. KOLB AND DR. SMALL FOR ESBL INFECTION . CHILLS NO . FEVER NO . INFECTION: DO YOU HAVE NEW INFECTIONS? NO . DO YOU HAVE HISTORY OF MRSA? NO . MUSCULOSKELETAL: ANY NEW PATTERNS OF PAIN OR NUMBNESS? NO . GASTROENTEROLOGY: ANY NEW CHANGE IN BOWEL CONTROL? NO . GENITOURINARY: ANY NEW CHANGE IN BLADDER CONTROL? YES, RELATED TO ESBL INFECTION. CURRENTLY BEING TREATED BY PRIMARY FOR THIS . IS THERE A CHANCE YOU COULD BE ? NO . HEMATOLOGY/LYMPH: DO YOU TAKE ANY BLOOD THINNERS? (FOR EXAMPLE- COUMADIN, PLAVIX, AGGRENOX, PLATEL, PRADAXA, OR XARELTO) NO . WHEN WAS YOUR LAST DOSE? DATE: TIME: . NEUROLOGY: HAVE YOU FALLEN IN THE PAST 12 MONTHS? YES, PT COMPLAINS OF FALL BEFORE SEPIDEH. DENIES ANY INJURIES OR ED VISIT. . ANY NEW EXTREMITY NUMBNESS OR WEAKNESS? YES, COMPLAINS OF WEAKNESS ALL OVER. PT STATES SHE HAS ADDRESSED THIS WITH PRIMARY AND IS RECEIVING IRON TRANSFUSION ON 05-10-18 . CARDIOLOGY: DO YOU HAVE A PACEMAKER OR DEFIBRILLATOR? NO . RESPIRATORY: HAVE YOU BEEN SICK IN THE PAST WEEK? NO . FEVER NO . FLU LIKE SYMPTOMS? NO . COUGH NO . INTEGUMENTARY: DO YOU HAVE ANY RASHES OR OPEN SORES? NO . ALLERGIC/IMMUNO: ARE YOU ALLERGIC TO IV DYE? NO . ANY NEW ALLERGIES? NO . PSYCHIATRIC: DO YOU HAVE THOUGHTS OF HURTING YOURSELF OR SOMEONE ELSE? NO . ARE YOU ABUSED, NEGLECTED, OR IN AN UNSAFE ENVIRONMENT? NO . ENDOCRINOLOGY: ARE YOU DIABETIC? YES . OTHER: DO YOU NEED ANY PRESCRIPTIONS? NO . IF YES, PLEASE LIST: ____ . ANY NEW PROBLEMS WITH YOUR MEDICATIONS? NO . WHEN DID YOU LAST EAT? ____ . WHEN DID YOU LAST DRINK? ____ . WHAT DID YOU LAST DRINK? ____ . NAME OF PERSON DRIVING YOU HOME? ____ . DO YOU HAVE ANY OTHER QUESTIONS OR CONCERNS NO . VITAL SIGNS WT 223 LBS, HT 67", BMI 34.92 INDEX, BP 124/67 MM HG, HR 76 /MIN, RR 16 /MIN, TEMP 98.1 F, OXYGEN SAT % 94%, NA INITIALS SC 13:02, REVIEWED BY: BV. EXAMINATION GENERAL EXAMINATION: GENERAL APPEARANCE:IN W/C/SHORT OF BREATH/02 2L N/C ON.AWAKE,ALERT,ORIENTED . PSYCHAFFECT NORMAL . LUNGS:L/S DIMINISHED.TACHYPNEIC . HEART:S1, S2 IN A REGULAR RATE AND RHYTHM. NO SIGNIFICANT MURMURS, RUBS OR GALLOPS NOTED . LUMBAR SACRAL SPINEPALPATION: + FOR PAIN OVER L/S SPINE. + FOR PAIN OVER L/S PARSPINALS. CERVICALTRIGGER POINTS ELICITED OVER BILAT L>R CERVICAL/TRAPEZIUS/SCALINE . ASSESSMENTS CERVICALGIA - M54.2 (PRIMARY) MYALGIA, OTHER SITE - M79.18 TREATMENT CERVICALGIA CONTINUE PERCOCET TABLET, 5-325 MG, 1-2 TAB, ORALLY, EVERY 6 -8H PRN MDD6 #100 NOTES: TPI NECK/UPPER BACK W STEROID, ISTOP REGISTRY REVIEWED AND DEMONSTRATES COMPLLIANCE. (REF #[id number] ) BRINGS IN MEDICATIONS WHICH IS APPROPRIATE FOR WHAT WAS DISPENSED. RECENT URINE TOXICOLOGY REVIEWED. NO UNAUTHORIZED MEDICATIONS. NO ILLICIT SUBSTANCES AND PRESCRIBED MEDICATIONS WERE PRESENT. , RISKS AND BENEFITS OF NARCOTIC/OPIOD MEDICATIONS WERE REVIEWED WITH PATIENT - THIS INCLUDES BUT IS NOT LIMITED TO RISK OF DEPENDANCE/DEVELOPMENT OF ADDICTION, MOOD DISTURBANCE AND DEPRESSION, OSTEOPOROSIS, HORMONAL AND LABIDAL CHANGES, RESPIRATORY DEPRESSION AND . PATIENT IS ADVISED NOT TO DRIVE OR DRINK ALCOHOL WHILE ON THESE MEDICATIONS. PREVENTIVE MEDICINE PAIN CLINIC TEACHING: PROCEDURE TEACHING PT DECLINED PRINTED INFORMATION ON TRIGGER POINT INJECTIONS STATING SHE HAS HAD THEM IN THE PAST AND IS FAMILIAR WITH THEM. PRE-PROCEDURE INSTRUCTIONS REVIEWED WITH PT. AND SHE VERBALIZED UNDERSTANDING. AD. PROCEDURE CODES FA211 ESTABILISHED PATIENT [facility] CHARGE DISPOSITION & COMMUNICATION FOLLOW UP POST (REASON: TPI NECK/UPPER BACK W STEROID) ELECTRONICALLY SIGNED BY TJ KELLER ON 05/15/2018 AT 04:53 PM EST DISCLAIMER : THIS IS A VISIT SUMMARY EXTRACTED FROM THE [employer] CHART. IT IS NOT A COPY OF THE [facility] PROGRESS NOTE. JOSE R
== END ==
LOC: M PAIN 13:00
PROVIDERS: ATTEND Nurse Practitioner Family
DX: M54.2 Cervicalgia (principal); M79.18 Myalgia, other site; I13.0 Hypertensive heart and chronic kidney disease with heart failure and stage 1 through stage 4 chronic kidney disease, or unspecified chronic kidney disease; K21.9 Gastro-esophageal reflux disease without esophagitis; N18.3 Chronic kidney disease, stage 3 (moderate); G43.909 Migraine, unspecified, not intractable, without status migrainosus; R56.9 Unspecified convulsions; E11.22 Type 2 diabetes mellitus with diabetic chronic kidney disease; J45.909 Unspecified asthma, uncomplicated; I50.30 Unspecified diastolic (congestive) heart failure; E66.9 Obesity, unspecified; Z68.34 Body mass index [BMI] 34.0-34.9, adult; Z86.79 Personal history of other diseases of the circulatory system; Z96.641 Presence of right artificial hip joint; Z88.0 Allergy status to penicillin; Z88.1 Allergy status to other antibiotic agents; Z88.2 Allergy status to sulfonamides; Z88.5 Allergy status to narcotic agent; Z88.8 Allergy status to other drugs, medicaments and biological substances; Z79.4 Long term (current) use of insulin; Z79.82 Long term (current) use of aspirin; Z79.899 Other long term (current) drug therapy; N39.0 Urinary tract infection, site not specified
CPT/HCPCS: 87086; G0463

== ENCOUNTER → 2018-05-08 | Outpatient (REF) | payer MEDICARE, MEDICAID ==
[~2018-05-08] MED LIST changes: -ATEN25TA PO; -FLUC100T PO; -LEVE500XR PO; -NUCY50TA19 PO; -ROPI2TAB PO
== END ==
LOC: M SFHCPLAZ 14:26
PROVIDERS: ATTEND Internal Medicine Infectious Disease
DX: N39.0 Urinary tract infection, site not specified (principal)

== ENCOUNTER 2018-05-10 07:57 | Outpatient (CLI) | payer MEDICARE, MEDICAID ==
[~2018-05-10] VITALS: Ht 170.2 cm; Wt 104.1 kg
[2018-05-10] VITALS (7 sets, daily range): BP systolic 98–153; BP diastolic 52–68
[2018-05-10] MEDS ORDERED: IRON SUCROSE 25 MG in NS 50 ML IV ONE (09:00)
[2018-05-10] MEDS ORDERED: SODIUM CHLORIDE 0.9% INJ 10 ML SYR IV SCH (09:00)
[2018-05-10] MEDS ORDERED: IRON SUCROSE 475 MG in NS 250 ML IV ONE (10:00)
== END 2018-05-10 14:30 | disposition home or self-care (01) ==
LOC: M INFU 07:57
PROVIDERS: ATTEND Internal Medicine Nephrology
DX: D50.9 Iron deficiency anemia, unspecified (principal); Z88.0 Allergy status to penicillin; Z88.1 Allergy status to other antibiotic agents; Z88.8 Allergy status to other drugs, medicaments and biological substances; Z91.040 Latex allergy status
CPT/HCPCS: 96365; 96366; J1756

== ENCOUNTER → 2018-05-11 | Outpatient (REF) | payer MEDICARE, MEDICAID ==
[2018-05-11 20:29] LABS: APPEARANCE, URINE CLEAR (CLEAR); BACTERIA, URINE AUTO 1+ (NEGATIVE); BILIRUBIN, URINE AUTO NEGATIVE (NEGATIVE); BLOOD, URINE BLOOD NEGATIVE (NEGATIVE); COLOR, URINE STRAW (YELLOW); GLUCOSE, URINE (UA) AUTO NEGATIVE (NEGATIVE); KETONE, URINE AUTO NEGATIVE (NEGATIVE); LEUKOCYTE ESTERASE, URINE AUTO 2+ (NEGATIVE); NITRITE, URINE AUTO NEGATIVE (NEGATIVE); PROTEIN, URINE AUTO NEGATIVE (NEGATIVE); RBC, URINE AUTO 0 /HPF (0-3); SPECIFIC GRAVITY URINE AUTO 1.006 (1.002-1.035); SQUAMOUS EPITHELIAL CELL UR AU 1 /HPF (0-6); UROBILINOGEN, URINE AUTO 0.2 mg/dL (0.0-2.0); WBC, URINE AUTO 11 /HPF (0-3)
== END ==
LOC: M SFHCPLAZ 19:03
PROVIDERS: ATTEND Internal Medicine Infectious Disease
DX: N39.0 Urinary tract infection, site not specified (principal)

== ENCOUNTER → 2018-05-16 | Outpatient (REF) | payer MEDICARE, MEDICAID ==
[~2018-05-16] MED LIST changes: +LEVE500XR PO; +ROPI2TAB PO
[2018-05-16 16:35] LABS: AMORPHOUS SEDIMENT SMALL (NEGATIVE); APPEARANCE, URINE CLOUDY (CLEAR); BACTERIA, URINE AUTO 1+ (NEGATIVE); BILIRUBIN, URINE AUTO NEGATIVE (NEGATIVE); BLOOD, URINE BLOOD NEGATIVE (NEGATIVE); COLOR, URINE YELLOW (YELLOW); GLUCOSE, URINE (UA) AUTO NEGATIVE (NEGATIVE); KETONE, URINE AUTO NEGATIVE (NEGATIVE); LEUKOCYTE ESTERASE, URINE AUTO 3+ (NEGATIVE); NITRITE, URINE AUTO NEGATIVE (NEGATIVE); PROTEIN, URINE AUTO NEGATIVE (NEGATIVE); RBC, URINE AUTO 2 /HPF (0-3); SPECIFIC GRAVITY URINE AUTO 1.008 (1.002-1.035); SQUAMOUS EPITHELIAL CELL UR AU 0 /HPF (0-6); UROBILINOGEN, URINE AUTO 0.2 mg/dL (0.0-2.0); WBC, URINE AUTO 96 /HPF (0-3)
== END ==
LOC: M SFHCPLAZ 15:38
PROVIDERS: ATTEND Internal Medicine Infectious Disease
DX: N39.0 Urinary tract infection, site not specified (principal)

== ENCOUNTER 2018-05-18 12:24 | Inpatient (IN) | payer MEDICARE, MEDICAID ==
[~2018-05-18] VITALS: Ht 170.2 cm; Wt 103.4 kg
[~2018-05-18 12:24] MED LIST changes: -LEVE500XR PO; -ROPI2TAB PO
[2018-05-18] MEDS ORDERED: FLOM0.4C39 PO (14:20)
[2018-05-18] MEDS ORDERED: MIRA3350 PO (14:20)
[2018-05-18] MEDS ORDERED: ROPI2TAB PO (14:20)
[2018-05-18] MEDS ORDERED: TRAN1.5D2 TOP (14:20)
[2018-05-18] MEDS ORDERED: LEVE500XR PO (14:20)
[2018-05-18] MEDS ORDERED: REST0.05 OU (14:20)
[2018-05-18 14:24] LABS: INR 1.11; PROTHROMBIN TIME 14.4 SECONDS (12.1-14.4)
[2018-05-18 14:25] LABS: PARTIAL THROMBOPLASTIN TIME 33.4 SECONDS (25.4-37.6)
[2018-05-18 14:27] LABS: BASO # 0.1 10^3/uL (0.0-0.2); BASO % 0.7 % (0.0-1.0); EOS # 0.3 10^3/uL (0.0-0.50); EOS % 3.1 % (0.0-3.0); HEMATOCRIT 34.3 % (36.0-47.0); HEMOGLOBIN 9.6 g/dl (12.0-15.5); LYMPH # 2.2 10^3/uL (1.5-4.5); LYMPH % 20.4 % (24.0-44.0); MEAN CORPUSCULAR HEMOGLOBIN 21.3 pg (27.0-33.0); MEAN CORPUSCULAR VOLUME 76.1 fl (80.0-96.0); MONO # 1.2 10^3/uL (0.0-0.8); NEUTROPHILS # 6.8 10^3/uL (1.8-7.7); PLATELET COUNT, AUTOMATED 235 10^3/uL (150-450); RED BLOOD COUNT 4.51 10^6/uL (4.00-5.40); WHITE BLOOD COUNT 10.6 10^3/uL (4.0-10.0)
[2018-05-18 14:36] LABS: ALBUMIN 3.2 GM/DL (3.2-5.2); ALT/SGPT 26 U/L (12-78); BILIRUBIN,DIRECT 0.2 MG/DL (0.0-0.2); BILIRUBIN,TOTAL 0.5 MG/DL (0.2-1.0); BLOOD UREA NITROGEN 33 MG/DL (7-18); CARBON DIOXIDE LEVEL 30 MEQ/L (21-32); CHLORIDE LEVEL 97 MEQ/L (98-107); CK-MB VALUE MASS < 1.0 NG/ML (<3.6); CPK CREATINE PHOSPHOKINASE 26 U/L (26-192); CREATININE FOR GFR 1.68 MG/DL (0.55-1.30); GLOMERULAR FILTRATION RATE 31.8 (>39); GLUCOSE, FASTING 229 MG/DL (70-100); LIPASE 110 U/L (73-393); MB/CK RELATIVE INDEX 3.85 (< OR =4); POTASSIUM SERUM 3.8 MEQ/L (3.5-5.1); SODIUM LEVEL 135 MEQ/L (136-145); TOTAL PROTEIN 7.4 GM/DL (6.4-8.2); TROPONIN I < 0.02 NG/ML (< 0.10)
[2018-05-18] MEDS ORDERED: MEROPENEM INJ 1 GM in APPROPRIATE DILUENT 1 EA IV ONE ×2 (14:45→17:30)
--- NOTE | 2018-05-18 14:46 | REP ---
CHEST, PORTABLE: AP portable view of the chest is performed. Comparison 11/25/2017. Calcified granuloma is again seen in the right midlung zone. There is mild elevation of the right hemidiaphragm with accentuated interstitial markings bilaterally. No new infiltrate is seen. There is cardiomegaly with left ventricular prominence. There is a right central venous catheter again noted. Two metallic clips again overlie the left hemithorax. IMPRESSION: Mild cardiomegaly and stable chronic changes. No acute infiltrate. Electronically Signed by Sami Mesa MD 05/19/2018 03:16 P
[2018-05-18] MEDS ORDERED: MORPHINE 2 MG/ML 1ML SYRINGE (J2270) IV PRN (16:00)
[2018-05-18] MEDS ORDERED: NYSTATIN OINTMENT 15 GM TOP PRN (17:00)
[2018-05-18] MEDS ORDERED: ALBUTEROL SULFATE 2.5 MG/0.5 ML INH NEB SOLN INH PRN (17:00)
[2018-05-18] MEDS ORDERED: BENZONATATE 100 MG CAP PO PRN (17:00)
[2018-05-18] MEDS ORDERED: DEXTROSE 50% 50 ML SYRINGE IV PRN (17:00)
[2018-05-18] MEDS ORDERED: guaiFENesin ER 600 MG TAB PO PRN (17:00)
[2018-05-18] MEDS ORDERED: GLUCAGON FOR INJ 1 MG VIAL (J1610) SC PRN (17:00)
[2018-05-18] MEDS ORDERED: NYSTATIN CREAM 15 GM TOP PRN (17:00)
[2018-05-18] MEDS ORDERED: GLUCOSE 4 GM CHEW TABLET PO PRN (17:00)
--- NOTE | 2018-05-18 17:39 | HPE ---
DATE OF ADMISSION: 05/18/2018 Patient is a 72-year-old female with a past medical history of hypertension, diabetes, hyperlipidemia, morbid obesity, chronic recurrent urinary tract infections (UTIs), chronic kidney disease (CKD) III who presents to the emergency room due to abnormal labs. Patient has dysuria and frequency and went to Dr. Art's office. Urinalysis (UA) was done and results came back of the urinalysis which was suggestive of a UTI, so the patient came to emergency room (ER) for evaluation due to the fact that she has a history of extended-spectrum beta lactamase (ESBL) in the urine. While she was in the ER, the cultures did come back as positive for ESBL, so the patient will be admitted for intravenous (IV) meropenem. Patient denies any subjective feeling of fever, aches, or chills. She has no chest pain or shortness of breath. PAST MEDICAL HISTORY: 1. Hypertension. 2. Diabetes. 3. Hyperlipidemia. 4. Morbid obesity. 5. Chronic non-oxygen dependent chronic obstructive pulmonary disease (COPD). 6. History of deep vein thrombosis (DVT) and pulmonary embolism (PE). 7. History of gout. 8. Seizure disorder. 9. Gastroesophageal reflux disease (GERD). 10. CKD III. 11. Obstructive sleep apnea. 12. Restless leg syndrome. 13. Chronic diastolic heart failure. PAST SURGICAL HISTORY: 1. Inferior vena cava filter placement. 2. Hysterectomy. 3. Right hip arthroplasty. 4. Left ankle open reduction, internal fixation. 5. Infusaport placement. 6. Arthroscopic subacromial decompression. DRUG ALLERGIES: CEPHALOSPORINS, CHLORPROMAZINE, LORATADINE, METHADONE, PENICILLIN, PENTAZOCINE, and SULFA DRUGS. FAMILY HISTORY: Noncontributory. SOCIAL HISTORY: Patient denies tobacco, alcohol, or illicit drugs. HOME MEDICATIONS: - Tylenol 650 mg orally every 8 hours as needed - albuterol as needed - Amitiza 25 mg orally at bedtime - allopurinol 300 mg orally daily - atorvastatin 10 mg orally daily - benzonatate 100 mg orally three times a day as needed - betamethasone one dose topically at bedtime to affected area - bisoprolol 2.5 mg orally daily - calcitriol 0.25 mg orally daily - colchicine 0.6 mg orally daily - Colace 100 mg orally twice daily - duloxetine 60 mg orally twice daily - ergocalciferol 50,000 units every monthly - estradiol Tuesday, Tuesday, Tuesday at bedtime - guaiphenesin 600 mg orally twice daily as needed - insulin Lispro per sliding scale - lactulose 30 mL orally twice daily - levetiracetam 500 mg orally twice daily - metoclopramide 10 mg orally three times a day - omeprazole 20 mg orally twice daily - ondansetron 4 mg orally four times a day as needed - potassium chloride 20 mEq orally twice daily - MiraLax 17 grams orally daily - pregabalin 150 mg orally three times a day - Restasis one drop to both eyes twice a day - ropinirole 2 mg orally twice daily - scopolamine 1.5 mg topically every 72 hours for nausea - senna 17.2 mg orally twice daily - spironolactone 25 mg orally twice daily - sucralfate 1 gram orally twice daily - tamsulosin 0.4 mg orally daily - torsemide 60 mg orally twice daily - Tresiba 80 units subcutaneous daily REVIEW OF SYSTEMS: Negative for all 10 major systems except what has been mentioned in the history of present illness (HPI). VITAL SIGNS: Blood pressure 139/65, heart rate 87 and regular, respiratory rate is 18, temperature 96.5, oxygen saturation 94% on room air. HEAD: Atraumatic, normocephalic. NECK: Supple. No jugular venous distention (JVD). LUNGS: Clear to auscultation. HEART: S1, S2 audible. No murmurs appreciated. ABDOMEN: Soft. Positive bowel sounds. No pedal edema. SKIN: Intact. NEUROLOGIC: Patient awake, alert, oriented times three. LABORATORY DATA: Sodium 135, potassium 3.8, chloride 97, CO2 of 30, BUN 33, creatinine 1.68, glucose 229. Troponin is less than 0.02. Lipase 110. WBC 10.6, hemoglobin 9.6, hematocrit 34.3, platelets are 235,000. IMPRESSION: Extended-spectrum beta lactamase (ESBL) urinary tract infection (UTI). PLAN: Patient is to be admitted to medical/surgical floor. Will start the patient on intravenous (IV) meropenem 1 gram IV every [address] Art see the patient in the morning. Will continue all her other preadmission medications and continue her care on the medical/surgical floor.
--- NOTE | 2018-05-18 17:43 | REP ---
CT of the abdomen and pelvis without IV or bowel contrast: Comparison is 04/16/2018. The patient is scanned with arms at sides resulting in significant beam-hardening artifact and degradation of image quality throughout the scan. Within the visualized lung diaz as a calcified granuloma in the right lower lobe. There is a probable old healed rib fracture posteriorly of the left seventh rib, partially visualized. The unenhanced hepatic parenchyma is homogeneous. The gallbladder is distended but otherwise unremarkable without calculus, wall thickening or pericholecystic fluid. The pancreas is unremarkable. There are splenic calcified granulomas. Spleen otherwise unremarkable. There are multiple surgical clips in the spinal gastric area, unchanged. The adrenals and kidneys are unremarkable. Abdominal aorta are unremarkable. There is a vena cava filter, unchanged. There is no bowel distension or obstruction. There is no diverticulosis or diverticulitis. Pelvis: The bladder is unremarkable. The uterus and adnexa are obscured by beam-hardening from the right hip arthroplasty. No adenopathy or ascites. There is a spinal cord stimulator entering from left, unchanged. Impression: No adenopathy or ascites. No diverticulosis or diverticulitis. No inflammatory changes. Vena cava filter. No bowel distension or obstruction. Surgical clips in the gastrosplenic area. See spinal cord stimulator entering from left, unchanged. Electronically Signed by Sami Richter MD 05/18/2018 05:34 P
[2018-05-18 20:45] VITALS: BP 143/67
[2018-05-18 22:00] VITALS: BP 140/70
[2018-05-18] MEDS: SENNA 8.6 MG TAB (SENOKOT) PO SCH (22:19)
[2018-05-18] MEDS: METOCLOPRAMIDE 10 MG TAB PO SCH (22:19)
[2018-05-18] MEDS: PREGABALIN 75 MG CAP(LYRICA) PO SCH (22:19)
[2018-05-18] MEDS: DULoxetine 30 MG CAP (CYMBALTA) PO SCH (22:19)
[2018-05-18] MEDS: TORSEMIDE 20 MG TAB PO SCH (22:20)
[2018-05-18] MEDS: DOCUSATE SODIUM 100 MG CAP PO SCH (22:20)
[2018-05-18] MEDS: OMEPRAZOLE 20 MG CAP PO SCH (22:20)
[2018-05-18] MEDS: LACTULOSE 20 GM/30 ML SYRUP UD PO SCH (22:21)
[2018-05-18] MEDS: HumaLOG INSULIN (NovoLOG) PER UNIT SC SCH (22:21)
[2018-05-18] MEDS: POTASSIUM CHLORIDE 10 MEQ SR TABLET PO SCH (22:21)
[2018-05-18] MEDS: ACETAMINOPHEN 650MG ER TAB (TYLENOL ARTHRITIS) PO PRN (23:19)
[2018-05-18] MEDS: levETIRAcetam **XR** 500 MG TABLET PO SCH (23:19)
[2018-05-18] MEDS: rOPINIRole 2MG TAB PO SCH (23:19)
[2018-05-18] MEDS: LACTIC ACID 12% LOTION 225 GM BTL TOP SCH (23:20)
[2018-05-18] MEDS: BETAMETHASONE VAL 0.1% OINT 15 GM TOP SCH (23:21)
[2018-05-18] MEDS: TRIAMCINOLONE ACETONIDE 0.025 % 80 GM CREAM TOP SCH (23:21)
--- NOTE | 2018-05-19 00:48 | ECGEPIP ---
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
[2018-05-19] MEDS: MEROPENEM INJ 1 GM in APPROPRIATE DILUENT 1 EA IV SCH ×2 (02:14→15:36)
[2018-05-19 05:51] LABS: BASO # 0.1 10^3/uL (0.0-0.2); BASO % 0.9 % (0.0-1.0); EOS # 0.3 10^3/uL (0.0-0.50); EOS % 2.8 % (0.0-3.0); HEMATOCRIT 36.7 % (36.0-47.0); HEMOGLOBIN 10.3 g/dl (12.0-15.5); LYMPH % 18.8 % (24.0-44.0); MEAN CORPUSCULAR HEMOGLOBIN 21.4 pg (27.0-33.0); MEAN CORPUSCULAR HGB CONC 28.1 g/dl (32.0-36.5); MEAN CORPUSCULAR VOLUME 76.3 fl (80.0-96.0); MONO # 1.3 10^3/uL (0.0-0.8); MONO % 11.9 % (0.0-5.0); NEUTROPHILS # 6.8 10^3/uL (1.8-7.7); NEUTROPHILS % 64.8 % (36.0-66.0); PLATELET COUNT, AUTOMATED 274 10^3/uL (150-450); RED BLOOD COUNT 4.81 10^6/uL (4.00-5.40); WHITE BLOOD COUNT 10.5 10^3/uL (4.0-10.0)
[2018-05-19 06:00] VITALS: BP 137/74
[2018-05-19 06:14] LABS: CREATININE FOR GFR 1.56 MG/DL (0.55-1.30); GLOMERULAR FILTRATION RATE 34.6 (>39)
[2018-05-19] MEDS: ONDANSETRON 4 MG TAB (S0181) PO PRN (06:51)
[2018-05-19] MEDS: MORPHINE 4 MG/ML 1ML VIAL/SYRINGE (J2270) IV PRN ×3 (06:52→20:12)
[2018-05-19] MEDS: OMEPRAZOLE 20 MG CAP PO SCH ×2 (09:08→20:09)
[2018-05-19] MEDS: DULoxetine 30 MG CAP (CYMBALTA) PO SCH ×2 (09:08→20:10)
[2018-05-19] MEDS: PREGABALIN 75 MG CAP(LYRICA) PO SCH ×3 (09:08→20:10)
[2018-05-19] MEDS: ATORVASTATIN 10 MG TAB PO SCH (09:08)
[2018-05-19] MEDS: POTASSIUM CHLORIDE 10 MEQ SR TABLET PO SCH ×2 (09:08→20:10)
[2018-05-19] MEDS: COLCHICINE 0.6 MG TAB PO SCH (09:08)
[2018-05-19] MEDS: METOCLOPRAMIDE 10 MG TAB PO SCH ×3 (09:08→20:10)
[2018-05-19] MEDS: TAMSULOSIN 0.4 MG CAP PO SCH (09:08)
[2018-05-19] MEDS: LACTULOSE 20 GM/30 ML SYRUP UD PO SCH ×2 (09:08→20:09)
[2018-05-19] MEDS: MIRALAX *UNIT DOSE* 17GM PACKET PO SCH (09:08)
[2018-05-19] MEDS: SPIRONOLACTONE 25 MG TAB PO SCH ×2 (09:08→17:51)
[2018-05-19] MEDS: ALLOPURINOL 300 MG TAB PO SCH (09:09)
[2018-05-19] MEDS: TORSEMIDE 20 MG TAB PO SCH ×2 (09:09→17:50)
[2018-05-19] MEDS: SENNA 8.6 MG TAB (SENOKOT) PO SCH ×2 (09:09→20:10)
[2018-05-19] MEDS: CALCITRIOL 0.25 MCG CAP (S0169) PO SCH (09:09)
[2018-05-19] MEDS: TRIAMCINOLONE ACETONIDE 0.025 % 80 GM CREAM TOP SCH ×2 (09:09→20:11)
[2018-05-19] MEDS: DOCUSATE SODIUM 100 MG CAP PO SCH ×2 (09:09→20:10)
[2018-05-19] MEDS: SUCRALFATE 1 GM TAB PO SCH ×2 (09:09→17:50)
[2018-05-19] MEDS: LACTIC ACID 12% LOTION 225 GM BTL TOP SCH ×2 (09:10→20:11)
[2018-05-19] MEDS: HumaLOG INSULIN (NovoLOG) PER UNIT SC SCH ×3 (09:12→17:51)
[2018-05-19] MEDS: BISOPROLOL FUM 2.5 MG PER 1/2TAB PO SCH (09:13)
[2018-05-19] MEDS: levETIRAcetam **XR** 500 MG TABLET PO SCH ×2 (12:47→20:09)
[2018-05-19 14:00] VITALS: BP 148/65
--- NOTE | 2018-05-19 14:25 | IPNPDOC ---
Text Note Date of Service The patient was seen on 05/19/18. NOTE SUBJECTIVE: Complains of low back pain and lower abdominal discomfort. No fever or chills. No chest pain or cough or SOB. PHYSICAL EXAM: VITAL SIGNS: As below. HEAD: Atraumatic, normocephalic. NECK: Supple. No jugular venous distention (JVD). LUNGS: Clear to auscultation. HEART: S1, S2 audible. No murmurs appreciated. ABDOMEN: Soft. Positive bowel sounds. No pedal edema. SKIN: Intact. NEUROLOGIC: Patient awake, alert, oriented times three. Labs and Radiology : Reviewed ASSESSMENT and PLAN: Patient is a 72-year-old female with a extensive past medical history of morbid obesity, COPD, MATT, Obesity hypoventilation , gout, chronic pain, hypertension, diabetes, hyperlipidemia, morbid obesity,urinary retension, chronic recurrent urinary tract infections (UTIs), chronic kidney disease (CKD) III who presents to the emergency room due to abnormal labs. Patient has dysuria and frequency and went to Dr. Art's office. Urinalysis (UA) was done and results came back of the urinalysis which was suggestive of a UTI, so the patient came to emergency room (ER) for evaluation due to the fact that she has a history of extended-spectrum beta lactamase (ESBL) in the urine. While she was in the ER, the cultures did come back as positive for ESBL, so the patient will be admitted for intravenous (IV) meropenem. Reccurent UTI with ESBL Ecoli from culture on 05/[address] Art to see. Neurogenic Urinary retension with incomplete voiding causing recurrent UTIs continue flomax avoid constipation Chronic kidney injury: Not significantly deviated from her baseline. continue to monitor Insulin-dependent diabetes: she is on a consistent carb 2 g sodium diet by mouth, but remains uncontrolled titrating her long acting and short acting insulin for better glycemic control Obstructive sleep apnea: Continue with CPAP Obesity: Complicating care Obesity hypoventilation syndrome: Complicating care Chronic hypoxic respiratory failure: She uses 2 L at her baseline intermittently at home as outlined above Asthma: As outlined above Gout: Continue Allopurinol with colchicine DVT: Status post IVC filter Hypertension She is continued on bisoprolol Hyperlipidemia continue atorvastatin Migraines and seizure disorder: The patient is continued on Keppra and Lyrica Fioricet one tablet every six hours as needed for migraine headache. Gastroesophageal reflux disease The patient is on a PPI and Carafate Vitamin D deficiency her monthly supplementation is currently on hold Chronic anemia due to chronic disease and iron deficiency Chronic diastolic congestive heart failure: Appears to be euvolemic at this time continue torsemide and spironolactone Irritable bowel syndrome: Her home bowel regimen is in place miralax, lactulose, docusate, senna avoid constipation Restless leg syndrome: Continue with Requip Cervicalgia / Myofascial pain syndrome/ Migraine headache. per pain management recommendations, HAS MARCAINE/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 BACK THAT AT PRESENT TIME IS TURNED DOWN TO LOWEST SETTING JUST TO KEEP OPEN continue cymbalta, lyrica Renal stone asymptomatic DVT prophylaxis has been ordered. VS,Fishbone, I+O VS, Fishbone, I+O Laboratory Tests 05/18/18 13:53 Red Blood Count 4.51, Mean Corpuscular Volume 76.1 L, Mean Corpuscular Hemoglobin 21.3 L, Mean Corpuscular Hemoglobin Concent 28.0 L, Red Cell Distribution Width 23.6 H, Neutrophils (%) (Auto) 64.0, Lymphocytes (%) (Auto) 20.4 L, Monocytes (%) (Auto) 11.0 H, Eosinophils (%) (Auto) 3.1 H, Basophils (%) (Auto) 0.7, Neutrophils # (Auto) 6.8, Lymphocytes # (Auto) 2.2, Monocytes # (Auto) 1.2 H, Eosinophils # (Auto) 0.3, Basophils # (Auto) 0.1 Vital Signs Date Time Temp Pulse Resp B/P (MAP) Pulse Ox O2 Delivery O2 Flow Rate FiO2 05/18/18 20:34 96.8 98 19 128/69 (88) 93 Room Air FAWAD SHEPPARD MD May 19, 2018 01:53
[2018-05-19] MEDS: rOPINIRole 2MG TAB PO SCH ×2 (15:35→20:09)
[2018-05-19] MEDS: BETAMETHASONE VAL 0.1% OINT 15 GM TOP SCH (20:11)
[2018-05-19 22:00] VITALS: BP 124/58
[2018-05-20] MEDS: MEROPENEM INJ 1 GM in APPROPRIATE DILUENT 1 EA IV SCH ×2 (02:09→14:49)
[2018-05-20] MEDS: MORPHINE 4 MG/ML 1ML VIAL/SYRINGE (J2270) IV PRN ×4 (02:09→21:55)
[2018-05-20 06:00] VITALS: BP 142/69
[2018-05-20] MEDS: MIRALAX *UNIT DOSE* 17GM PACKET PO SCH (08:35)
[2018-05-20] MEDS: HumaLOG INSULIN (NovoLOG) PER UNIT SC SCH ×3 (08:35→17:35)
[2018-05-20] MEDS: LEVEMIR (INSULIN DETEMIR) 1 UNITS/0.01ML SC SCH ×2 (08:35→20:35)
[2018-05-20] MEDS: LACTULOSE 20 GM/30 ML SYRUP UD PO SCH ×2 (08:35→20:34)
[2018-05-20] MEDS: TORSEMIDE 20 MG TAB PO SCH ×2 (08:36→17:35)
[2018-05-20] MEDS: SUCRALFATE 1 GM TAB PO SCH ×2 (08:36→17:35)
[2018-05-20] MEDS: SODIUM CHLORIDE 0.9% INJ 10 ML SYR IV PRN ×2 (08:36→14:49)
[2018-05-20] MEDS: ALLOPURINOL 300 MG TAB PO SCH (08:37)
[2018-05-20] MEDS: TAMSULOSIN 0.4 MG CAP PO SCH (08:37)
[2018-05-20] MEDS: ATORVASTATIN 10 MG TAB PO SCH (08:37)
[2018-05-20] MEDS: DOCUSATE SODIUM 100 MG CAP PO SCH ×2 (08:37→20:35)
[2018-05-20] MEDS: SENNA 8.6 MG TAB (SENOKOT) PO SCH ×2 (08:37→20:34)
[2018-05-20] MEDS: DULoxetine 30 MG CAP (CYMBALTA) PO SCH ×2 (08:37→20:34)
[2018-05-20] MEDS: METOCLOPRAMIDE 10 MG TAB PO SCH ×3 (08:37→20:34)
[2018-05-20] MEDS: levETIRAcetam **XR** 500 MG TABLET PO SCH ×2 (08:37→20:34)
[2018-05-20] MEDS: OMEPRAZOLE 20 MG CAP PO SCH ×2 (08:37→20:35)
[2018-05-20] MEDS: CALCITRIOL 0.25 MCG CAP (S0169) PO SCH (08:38)
[2018-05-20] MEDS: ONDANSETRON 4 MG TAB (S0181) PO PRN (08:38)
[2018-05-20] MEDS: PREGABALIN 75 MG CAP(LYRICA) PO SCH ×3 (08:38→20:35)
[2018-05-20] MEDS: SPIRONOLACTONE 25 MG TAB PO SCH ×2 (08:38→17:35)
[2018-05-20] MEDS: POTASSIUM CHLORIDE 10 MEQ SR TABLET PO SCH ×2 (08:38→20:35)
[2018-05-20] MEDS: COLCHICINE 0.6 MG TAB PO SCH (08:38)
[2018-05-20] MEDS: BISOPROLOL FUM 2.5 MG PER 1/2TAB PO SCH (08:39)
[2018-05-20] MEDS: TRIAMCINOLONE ACETONIDE 0.025 % 80 GM CREAM TOP SCH ×2 (08:40→20:37)
[2018-05-20] MEDS: LACTIC ACID 12% LOTION 225 GM BTL TOP SCH ×2 (08:40→20:37)
--- NOTE | 2018-05-20 09:36 | CR ---
DATE OF CONSULTATION: 05/19/2018 REASON FOR CONSULTATION: I was asked to consult by the hospitalist for recurrent urinary tract infection. HISTORY OF PRESENT ILLNESS: Mrs. Stern is known to me from multiple previous admissions. The patient is a 72-year-old female with a history of recurrent urinary tract infection. Initially in the summer of 2017 was having recurrent Klebsiella oxytoca complicated also with C. difficile infection. In January she started having recurrent urinary tract infections with E. Coli, ESBL positive from 01/23, 03/14, 04/06, 04/12 and 05/16/2018. There are five consecutive cultures that have been positive for the same pathogen. The patient has been hospitalized at least three times for those recurrent urinary tract infections in the past 6 months. She states that she does not feel well when she has a UTI. Urine is cloudy and burning all the time. She feels nauseous and has a severe headache. She has never has fever, but always has chills. Patient was seen in my office on 05/11. At that time, her PICC line was removed. She had finished 3 weeks of ertapenem. She called my office again stating that she was having worsening dysuria. I tried to obtain a UA straight cath by her public health nurse, which she could not obtain and therefore she came to my office on 05/16 for straight cath UA, urine culture. That urine culture grew E. Coli, ESBL positive. I offered the patient to get IV antibiotics at home for another couple weeks, but she felt so bad that she came to the emergency room. She denied any vomiting, but has chronic nausea, no flank pain. The patient was seen in consultation by urology on 04/16. Dr. Mares, and she felt it may be due to incomplete emptying versus the left lower pole stone, neurogenic bladder. The recommendation was to do a cystoscopy in the office surgery or during this hospitalization. The patient is never home enough to followup with her outpatient appointments. She recommended to stop Ditropan and start a void every 2 hour regimen. Also she recommended to stop the scopolamine patch as this would worsen her urinary retention. PAST MEDICAL HISTORY: Significant for; Diabetes. Dyslipidemia. Morbid obesity. Hypertension. Chronic obstructive pulmonary disease (COPD). History of deep vein thrombosis (DVT)/pulmonary embolism. History of gout. Migraines. Seizure disorder. Gastroesophageal reflux disease. Depression. Chronic kidney disease stage III. Chronic back pain. Obstructive sleep apnea. History of C. difficile infection. Obesity hypoventilation syndrome. Restless leg syndrome. Constipation. Diastolic dysfunction with ejection fraction (EF) of 65%. ALLERGIES: 1. CEPHALOSPORIN. 2. CHLORPROMAZINE. 3. LORATADINE. 4. PENICILLIN. 5. SULFA. 6. METHADONE. 7. LATEX. FAMILY HISTORY Father at 85 from an myocardial infarction ([place]). Mother at 59 from cancer. SOCIAL HISTORY: She lives with her ex-. She has three children, one child is . She loves to bake. She uses a scooter, but is able to ambulate at home. 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 REVIEW OF SYSTEMS: She reports chills and night sweats when she has an infection. She denies any fever. She has a bad headache. She has no cough, shortness of breath or chest pain. She has nausea, but no vomiting. She has some suprapubic abdominal pain and chronic dysuria with frequency. PHYSICAL EXAMINATION: She is a chronically ill female in no acute distress. Temperature is 98.2, pulse 86, respirations 19, blood pressure 148/65, O2 sat 95% on 1 liter nasal cannula. Heart: Normal S1-S2. No murmurs, rubs or gallops. Lungs are clear. No wheezes or rhonchi. Abdomen: Obese, soft, mildly tender in the suprapubic area. Back: No CVA tenderness. Extremities: Trace edema. Left foot has some ecchymosis along the first metatarsal and the big toe, but she moves her ankle and all of the toes appropriately. LABORATORY DATA: White count is 10.5, hemoglobin 10.3, hematocrit 36.7, platelets 274, 64% neutrophils, 19% lymphocytes, 12% monocytes. Sodium 137, potassium 4, chloride 97, bicarb 32, BUN 32, creatinine 1.56, glucose 207, calcium 90, CRP 1.29. Urine culture straight cath urine had E. coli ESBL positive, intermediate to nitrofurantoin, resistant to levofloxacin, resistant to fosfomycin, resistant to Bactrim. There is no p.o. alternative for her treatment. CT abdomen and pelvis done on 05/18/2018, bladder is unremarkable. Uterus and adnexa are obscured by right hip arthroplasty. There is a spinal cord stimulator entering from the left. No ascites, adenopathy. There is a vena cava filter. Splenic calcified granulomas. Abdominal MRI done on 04/17/2018, shows few tiny pancreatic cysts. No significant masses or lesions. Voiding cystogram done on 04/17/2018 showing moderate postvoid residual, incomplete emptying, large amount of colonic stool, mild postvoid residue. IMPRESSION: This is a 72-year-old female who is admitted with recurrent urinary tract infection who has evidence of postvoid residue on previous studies. She has been seen in consultation by Dr. Mares who recommended discontinuing oxybutynin and scopolamine. The patient's symptoms are mostly dysuria and just a generalized feeling of being unwell, along with chills, headache and nausea. I do not think all of those symptoms are related to her urinary tract infection. I am not sure she is chronically colonized versus has real infection. She does not usually present with a fever or elevated white count. PLAN: The case has been discussed with Dr. Rivera who was seen the patient previously. Would recommend finishing the workup with inpatient cystoscopy just to make sure there is no other reason for her recurrent urinary tract infections. Would treat her again with meropenem, possibly may need longer treatment than 3 weeks. Although the benefits outweigh the risk with increased risk of ertapenem resistant hopefully the patient may benefit from chronic Al catheter if she continues with post void residual and recurrent urinary tract infection. Thank you for the consultation.
--- NOTE | 2018-05-20 11:36 | IPNPDOC ---
Text Note Date of Service The patient was seen on 05/20/18. NOTE SUBJECTIVE: Complains of feeling generally unwell with chills. Poor appetite, weak, nausea. Complains of low back pain and lower abdominal discomfort. No fever. No chest pain ro SOB. PHYSICAL EXAM: VITAL SIGNS: As below. HEAD: Atraumatic, normocephalic. NECK: Supple. No jugular venous distention (JVD). LUNGS: Clear to auscultation. HEART: S1, S2 audible. No murmurs appreciated. ABDOMEN: Soft. Positive bowel sounds. No pedal edema. SKIN: Intact. NEUROLOGIC: Patient awake, alert, oriented times three. Labs and Radiology : Reviewed ASSESSMENT and PLAN: Patient is a 72-year-old female with a extensive past medical history of morbid obesity, COPD, MATT, Obesity hypoventilation , gout, chronic pain, hypertension, diabetes, hyperlipidemia, morbid obesity,urinary retention, chronic recurrent urinary tract infections (UTIs), chronic kidney disease (CKD) III who presents to the emergency room due to abnormal labs. Patient has dysuria and frequency and went to Dr. Art's office. Urinalysis (UA) was done and results came back of the urinalysis which was suggestive of a UTI, so the patient came to emergency room (ER) for evaluation due to the fact that she has a history of extended-spectrum beta lactamase (ESBL) in the urine. While she was in the ER, the cultures did come back as positive for ESBL, so the patient will be admitted for intravenous (IV) meropenem. Recurrent UTIs with ESBL Ecoli from culture on 05/16 just finished 3 weeks of Ertapenem at home for ESBL ecoli in March and april. on iv meropenem appreciate Dr Art's input. Neurogenic Urinary retention with incomplete voiding vs renal stone causing recurrent UTIs continue flomax avoid constipation bladder scan bid to evaluate for post void residual discussed with Dr Rivera for possibly cystoscopy as inpatient Chronic kidney injury: Not significantly deviated from her baseline. continue to monitor Insulin-dependent diabetes: she is on a consistent carb 2 g sodium diet by mouth, but remains uncontrolled titrating her long acting and short acting insulin for better glycemic control Obstructive sleep apnea: Continue with CPAP Obesity: Complicating care Obesity hypoventilation syndrome: Complicating care Chronic hypoxic respiratory failure: She uses 2 L at her baseline intermittently at home as outlined above Asthma: As outlined above Gout: Continue Allopurinol with colchicine DVT: Status post IVC filter Hypertension She is continued on bisoprolol Hyperlipidemia continue atorvastatin Migraines and seizure disorder: The patient is continued on Keppra and Lyrica Fioricet one tablet every six hours as needed for migraine headache. Gastroesophageal reflux disease The patient is on a PPI and Carafate Vitamin D deficiency her monthly supplementation is currently on hold Chronic anemia due to chronic disease and iron deficiency Chronic diastolic congestive heart failure: Appears to be euvolemic at this time continue torsemide and spironolactone Irritable bowel syndrome: Her home bowel regimen is in place miralax, lactulose, docusate, senna avoid constipation Restless leg syndrome: Continue with Requip Cervicalgia / Myofascial pain syndrome/ Migraine headache. per pain management recommendations, HAS spinal cord stimulator. MARCAINE/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 BACK THAT AT PRESENT TIME IS TURNED DOWN TO LOWEST SETTING JUST TO KEEP OPEN continue cymbalta, lyrica Renal stone asymptomatic History of C diff last year. DVT prophylaxis has been ordered. VS,Fishbone, I+O VS, Fishbone, I+O Vital Signs Date Time Temp Pulse Resp B/P (MAP) Pulse Ox O2 Delivery O2 Flow Rate FiO2 05/20/18 09:05 16 05/20/18 08:39 89 142/69 05/20/18 06:00 97.6 97 1.0 05/18/18 20:34 Room Air I&O- Last 24 Hours up to 6 AM 05/20/18 06:00 Intake Total 2220 ml Output Total 4500 ml Balance -2280 ml FAWAD SHEPPARD MD May 20, 2018 11:36
[2018-05-20 14:00] VITALS: BP 138/63
[2018-05-20] MEDS: rOPINIRole 2MG TAB PO SCH ×2 (14:50→20:35)
[2018-05-20] MEDS: MOM 30ML SUSPENSION UDC PO PRN (18:43)
[2018-05-20] MEDS: BETAMETHASONE VAL 0.1% OINT 15 GM TOP SCH (20:37)
[2018-05-20 22:00] VITALS: BP 149/67
[2018-05-20] MEDS ORDERED: FLEET OIL RETENTION ENEMA PR PRN (22:45)
[2018-05-21] MEDS: MORPHINE 4 MG/ML 1ML VIAL/SYRINGE (J2270) IV PRN ×3 (02:53→20:41)
[2018-05-21] MEDS: MEROPENEM INJ 1 GM in APPROPRIATE DILUENT 1 EA IV SCH ×2 (02:53→16:18)
[2018-05-21] MEDS: SODIUM CHLORIDE 0.9% INJ 10 ML SYR IV PRN ×2 (05:59→12:59)
[2018-05-21 06:00] VITALS: BP 139/60
[2018-05-21 06:17] LABS: BASO # 0.1 10^3/uL (0.0-0.2); BASO % 1.1 % (0.0-1.0); EOS # 0.4 10^3/uL (0.0-0.50); EOS % 5.3 % (0.0-3.0); HEMOGLOBIN 9.7 g/dl (12.0-15.5); LYMPH # 1.8 10^3/uL (1.5-4.5); LYMPH % 27.5 % (24.0-44.0); MEAN CORPUSCULAR HEMOGLOBIN 21.9 pg (27.0-33.0); MEAN CORPUSCULAR HGB CONC 28.5 g/dl (32.0-36.5); MEAN CORPUSCULAR VOLUME 76.9 fl (80.0-96.0); MONO # 0.9 10^3/uL (0.0-0.8); MONO % 14.1 % (0.0-5.0); NEUTROPHILS # 3.4 10^3/uL (1.8-7.7); NEUTROPHILS % 51.1 % (36.0-66.0); PLATELET COUNT, AUTOMATED 262 10^3/uL (150-450); RED BLOOD COUNT 4.42 10^6/uL (4.00-5.40); WHITE BLOOD COUNT 6.6 10^3/uL (4.0-10.0)
[2018-05-21 06:42] LABS: CREATININE FOR GFR 1.86 MG/DL (0.55-1.30)
[2018-05-21 06:43] LABS: CALCIUM LEVEL 9.2 MG/DL (8.8-10.2); GLOMERULAR FILTRATION RATE 28.3 (>39); POTASSIUM SERUM 4.3 MEQ/L (3.5-5.1)
[2018-05-21] MEDS: HumaLOG INSULIN (NovoLOG) PER UNIT SC SCH ×3 (06:47→17:16)
[2018-05-21] MEDS ORDERED: MAGNESIUM CITRATE 300 ML BTL PO ONE (08:45)
--- NOTE | 2018-05-21 08:50 | IPNPDOC ---
Text Note Date of Service The patient was seen on 05/21/18. NOTE SUBJECTIVE: Complains of feeling generally unwell with chills. Poor appetite, weak, malaise. Complains of low back pain and lower abdominal discomfort. No fever. No chest pain ro SOB. Gets dizzy with sudden Change in posture. Has a decubitii. Bldder scan last night after voiding was 69 ml. No bowel movement ofr 3 days. Bladder scan this am after she voided 400 cc was 150 ml. Urology to see. PHYSICAL EXAM: VITAL SIGNS: As below. HEAD: Atraumatic, normocephalic. NECK: Supple. No jugular venous distention (JVD). LUNGS: Clear to auscultation. HEART: S1, S2 audible. No murmurs appreciated. ABDOMEN: Soft. Positive bowel sounds. No pedal edema. SKIN: Intact. NEUROLOGIC: Patient awake, alert, oriented times three. Labs and Radiology : Reviewed ASSESSMENT and PLAN: Patient is a 72-year-old female with a extensive past medical history of morbid obesity, COPD, MATT, Obesity hypoventilation , gout, chronic pain, hypertension, diabetes, hyperlipidemia, morbid obesity,urinary retention, chronic recurrent urinary tract infections (UTIs), chronic kidney disease (CKD) III who presents to the emergency room due to abnormal labs. Patient has dysuria and frequency and went to Dr. Art's office. Urinalysis (UA) was done and results came back of the urinalysis which was suggestive of a UTI, so the patient came to emergency room (ER) for evaluation due to the fact that she has a history of extended-spectrum beta lactamase (ESBL) in the urine. While she was in the ER, the cultures did come back as positive for ESBL, so the patient will be admitted for intravenous (IV) meropenem. Recurrent UTIs with ESBL Ecoli from culture on 05/16 just finished 3 weeks of Ertapenem at home for ESBL ecoli in March and april. on iv meropenem appreciate Dr Art's input. Neurogenic Urinary retention with incomplete voiding vs renal stone causing recurrent UTIs continue flomax avoid constipation bladder scan bid to evaluate for post void residual discussed with Dr Rivera for possibly cystoscopy as inpatient Chronic kidney injury: Not significantly deviated from her baseline. continue to monitor Insulin-dependent diabetes: she is on a consistent carb 2 g sodium diet by mouth, but remains uncontrolled titrating her long acting and short acting insulin for better glycemic control Obstructive sleep apnea: Continue with CPAP Obesity: Complicating care Obesity hypoventilation syndrome: Complicating care Chronic hypoxic respiratory failure: She uses 2 L at her baseline intermittently at home as outlined above Asthma: As outlined above Gout: Continue Allopurinol with colchicine DVT: Status post IVC filter Hypertension She is continued on bisoprolol Hyperlipidemia continue atorvastatin Migraines and seizure disorder: The patient is continued on Keppra and Lyrica Fioricet one tablet every six hours as needed for migraine headache. Gastroesophageal reflux disease The patient is on a PPI and Carafate Vitamin D deficiency her monthly supplementation is currently on hold Chronic anemia due to chronic disease and iron deficiency Chronic diastolic congestive heart failure: Appears to be euvolemic at this time continue torsemide and spironolactone Irritable bowel syndrome with constipation Her home bowel regimen is in place mild of mag, lactulose, docusate, senna will give mag citrate and enema today. Restless leg syndrome: Continue with Requip Cervicalgia / Myofascial pain syndrome/ Migraine headache. per pain management recommendations, HAS spinal cord stimulator. MARCAINE/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 BACK THAT AT PRESENT TIME IS TURNED DOWN TO LOWEST SETTING JUST TO KEEP OPEN continue cymbalta, lyrica Renal stone asymptomatic History of C diff last year. DVT prophylaxis has been ordered. VS,Fishbone, I+O VS, Fishbone, I+O Laboratory Tests 05/21/18 05:57 Red Blood Count 4.42, Mean Corpuscular Volume 76.9 L, Mean Corpuscular Hemoglobin 21.9 L, Mean Corpuscular Hemoglobin Concent 28.5 L, Red Cell Distribution Width 22.6 H, Neutrophils (%) (Auto) 51.1, Lymphocytes (%) (Auto) 27.5, Monocytes (%) (Auto) 14.1 H, Eosinophils (%) (Auto) 5.3 H, Basophils (%) (Auto) 1.1 H, Neutrophils # (Auto) 3.4, Lymphocytes # (Auto) 1.8, Monocytes # (Auto) 0.9 H, Eosinophils # (Auto) 0.4, Basophils # (Auto) 0.1, Calcium Level 9.2 Vital Signs Date Time Temp Pulse Resp B/P (MAP) Pulse Ox O2 Delivery O2 Flow Rate FiO2 2/17/19 06:00 98.0 97 17 139/60 (86) 92 1.0 05/18/18 20:34 Room Air I&O- Last 24 Hours up to 6 AM 05/21/18 06:00 Intake Total 1740 ml Output Total 4350 ml Balance -2610 ml FAWAD SHEPPARD MD May 21, 2018 08:50
[2018-05-21] MEDS: levETIRAcetam **XR** 500 MG TABLET PO SCH ×2 (09:41→20:35)
[2018-05-21] MEDS: DULoxetine 30 MG CAP (CYMBALTA) PO SCH ×2 (09:41→20:35)
[2018-05-21] MEDS: SPIRONOLACTONE 25 MG TAB PO SCH ×2 (09:41→16:18)
[2018-05-21] MEDS: DOCUSATE SODIUM 100 MG CAP PO SCH ×2 (09:41→20:36)
[2018-05-21] MEDS: MIRALAX *UNIT DOSE* 17GM PACKET PO SCH (09:41)
[2018-05-21] MEDS: SUCRALFATE 1 GM TAB PO SCH ×2 (09:41→17:16)
[2018-05-21] MEDS: CALCITRIOL 0.25 MCG CAP (S0169) PO SCH (09:41)
[2018-05-21] MEDS: LACTULOSE 20 GM/30 ML SYRUP UD PO SCH ×2 (09:41→20:35)
[2018-05-21] MEDS: LEVEMIR (INSULIN DETEMIR) 1 UNITS/0.01ML SC SCH ×2 (09:41→20:36)
[2018-05-21] MEDS: METOCLOPRAMIDE 10 MG TAB PO SCH ×3 (09:42→20:36)
[2018-05-21] MEDS: COLCHICINE 0.6 MG TAB PO SCH (09:42)
[2018-05-21] MEDS: TORSEMIDE 20 MG TAB PO SCH ×2 (09:42→16:21)
[2018-05-21] MEDS: TAMSULOSIN 0.4 MG CAP PO SCH (09:42)
[2018-05-21] MEDS: PREGABALIN 75 MG CAP(LYRICA) PO SCH ×3 (09:42→20:36)
[2018-05-21] MEDS: SENNA 8.6 MG TAB (SENOKOT) PO SCH ×2 (09:42→20:36)
[2018-05-21] MEDS: ALLOPURINOL 300 MG TAB PO SCH (09:42)
[2018-05-21] MEDS: BISOPROLOL FUM 2.5 MG PER 1/2TAB PO SCH (09:42)
[2018-05-21] MEDS: POTASSIUM CHLORIDE 10 MEQ SR TABLET PO SCH ×2 (09:43→20:36)
[2018-05-21] MEDS: ATORVASTATIN 10 MG TAB PO SCH (09:43)
[2018-05-21] MEDS: LACTIC ACID 12% LOTION 225 GM BTL TOP SCH ×2 (09:43→20:44)
[2018-05-21] MEDS: OMEPRAZOLE 20 MG CAP PO SCH ×2 (09:43→20:36)
[2018-05-21] MEDS: TRIAMCINOLONE ACETONIDE 0.025 % 80 GM CREAM TOP SCH ×2 (09:44→20:44)
[2018-05-21 14:00] VITALS: BP 141/67
[2018-05-21] MEDS: rOPINIRole 2MG TAB PO SCH ×2 (16:18→20:35)
[2018-05-21] MEDS: ACETAMINOPHEN 650MG ER TAB (TYLENOL ARTHRITIS) PO PRN (16:19)
[2018-05-21] MEDS: BETAMETHASONE VAL 0.1% OINT 15 GM TOP SCH (20:44)
[2018-05-21 22:00] VITALS: BP 135/60
[2018-05-22] MEDS: MEROPENEM INJ 1 GM in APPROPRIATE DILUENT 1 EA IV SCH ×2 (03:00→15:54)
[2018-05-22] MEDS: ACETAMINOPHEN 650MG ER TAB (TYLENOL ARTHRITIS) PO PRN ×2 (05:47→15:54)
[2018-05-22 06:00] VITALS: BP 128/69
[2018-05-22 06:08] LABS: BASO # 0.1 10^3/uL (0.0-0.2); BASO % 0.9 % (0.0-1.0); EOS # 0.4 10^3/uL (0.0-0.50); EOS % 4.7 % (0.0-3.0); HEMATOCRIT 35.9 % (36.0-47.0); HEMOGLOBIN 10.2 g/dl (12.0-15.5); LYMPH % 26.5 % (24.0-44.0); MEAN CORPUSCULAR HEMOGLOBIN 21.7 pg (27.0-33.0); MEAN CORPUSCULAR HGB CONC 28.4 g/dl (32.0-36.5); MEAN CORPUSCULAR VOLUME 76.2 fl (80.0-96.0); MONO # 0.9 10^3/uL (0.0-0.8); MONO % 12.1 % (0.0-5.0); NEUTROPHILS # 4.2 10^3/uL (1.8-7.7); PLATELET COUNT, AUTOMATED 299 10^3/uL (150-450); RED BLOOD COUNT 4.71 10^6/uL (4.00-5.40); WHITE BLOOD COUNT 7.6 10^3/uL (4.0-10.0)
[2018-05-22 06:44] LABS: CALCIUM LEVEL 10.1 MG/DL (8.8-10.2); CREATININE FOR GFR 1.81 MG/DL (0.55-1.30); GLOMERULAR FILTRATION RATE 29.2 (>39); POTASSIUM SERUM 4.3 MEQ/L (3.5-5.1)
[2018-05-22] MEDS: HumaLOG INSULIN (NovoLOG) PER UNIT SC SCH ×3 (06:56→17:30)
[2018-05-22] MEDS: TRIAMCINOLONE ACETONIDE 0.025 % 80 GM CREAM TOP SCH ×2 (09:00→20:22)
[2018-05-22] MEDS: LACTIC ACID 12% LOTION 225 GM BTL TOP SCH ×2 (09:00→20:21)
[2018-05-22] MEDS: LACTULOSE 20 GM/30 ML SYRUP UD PO SCH ×2 (09:10→20:19)
[2018-05-22] MEDS: MIRALAX *UNIT DOSE* 17GM PACKET PO SCH (09:11)
[2018-05-22] MEDS: BISOPROLOL FUM 2.5 MG PER 1/2TAB PO SCH (09:14)
[2018-05-22] MEDS: CALCITRIOL 0.25 MCG CAP (S0169) PO SCH (09:14)
[2018-05-22] MEDS: TAMSULOSIN 0.4 MG CAP PO SCH (09:14)
[2018-05-22] MEDS: SUCRALFATE 1 GM TAB PO SCH ×2 (09:14→17:31)
[2018-05-22] MEDS: PREGABALIN 75 MG CAP(LYRICA) PO SCH ×3 (09:14→20:21)
[2018-05-22] MEDS: ALLOPURINOL 300 MG TAB PO SCH (09:15)
[2018-05-22] MEDS ORDERED: LEVEMIR (INSULIN DETEMIR) 1 UNITS/0.01ML SC ONE ×2 (09:15→09:30)
[2018-05-22] MEDS: ATORVASTATIN 10 MG TAB PO SCH (09:15)
[2018-05-22] MEDS: POTASSIUM CHLORIDE 10 MEQ SR TABLET PO SCH ×2 (09:15→20:20)
[2018-05-22] MEDS: SPIRONOLACTONE 25 MG TAB PO SCH ×2 (09:15→17:31)
[2018-05-22] MEDS: SENNA 8.6 MG TAB (SENOKOT) PO SCH ×2 (09:15→20:21)
[2018-05-22] MEDS: TORSEMIDE 20 MG TAB PO SCH ×2 (09:15→17:31)
[2018-05-22] MEDS: DOCUSATE SODIUM 100 MG CAP PO SCH ×2 (09:15→20:21)
[2018-05-22] MEDS: OMEPRAZOLE 20 MG CAP PO SCH ×2 (09:15→20:21)
[2018-05-22] MEDS: METOCLOPRAMIDE 10 MG TAB PO SCH ×3 (09:16→20:21)
[2018-05-22] MEDS: DULoxetine 30 MG CAP (CYMBALTA) PO SCH ×2 (09:16→20:21)
[2018-05-22] MEDS: LEVEMIR (INSULIN DETEMIR) 1 UNITS/0.01ML SC SCH ×2 (09:30→20:20)
[2018-05-22] MEDS: MORPHINE 4 MG/ML 1ML VIAL/SYRINGE (J2270) IV PRN ×2 (09:30→20:19)
[2018-05-22] MEDS: levETIRAcetam **XR** 500 MG TABLET PO SCH ×2 (09:31→20:20)
[2018-05-22] MEDS: COLCHICINE 0.6 MG TAB PO SCH (09:31)
[2018-05-22] MEDS ORDERED: HumaLOG INSULIN (NovoLOG) PER UNIT SC STA (12:15)
[2018-05-22 14:00] VITALS: BP 144/64
--- NOTE | 2018-05-22 15:08 | IPNPDOC ---
Text Note Date of Service The patient was seen on 05/22/18. NOTE SUBJECTIVE: Feeling a little better today. Had 2 large bowel movements yesterday and several small ones today. No fever. No chest pain or SOB. Gets dizzy with sudden Change in posture. Has a decubitii. Bladder scan last night after voiding is less than 200 cc always at present. He sugars are uncontrolled over 500 she tells me she was taking 160 units of long acting insulin daily here in med rec shows 80 units of tresiba daily so we were under dosing her. Will increase ins ulin. PHYSICAL EXAM: VITAL SIGNS: As below. HEAD: Atraumatic, normocephalic. NECK: Supple. No jugular venous distention (JVD). LUNGS: Clear to auscultation. HEART: S1, S2 audible. No murmurs appreciated. ABDOMEN: Soft. Positive bowel sounds. No pedal edema. SKIN: Intact. NEUROLOGIC: Patient awake, alert, oriented times three. Labs and Radiology : Reviewed ASSESSMENT and PLAN: Patient is a 72-year-old female with a extensive past medical history of morbid obesity, COPD, MATT, Obesity hypoventilation , gout, chronic pain, hypertension, diabetes, hyperlipidemia, morbid obesity,urinary retention, chronic recurrent urinary tract infections (UTIs), chronic kidney disease (CKD) III who presents to the emergency room due to abnormal labs. Patient has dysuria and frequency and went to Dr. Art's office. Urinalysis (UA) was done and results came back of the urinalysis which was suggestive of a UTI, so the patient came to emergency room (ER) for evaluation due to the fact that she has a history of extended-spectrum beta lactamase (ESBL) in the urine. While she was in the ER, the cultures did come back as positive for ESBL, so the patient will be admitted for intravenous (IV) meropenem. Recurrent UTIs with ESBL Ecoli from culture on 05/16 just finished 3 weeks of Ertapenem at home for ESBL ecoli in March and april. on iv meropenem appreciate Dr Art's input. Neurogenic Urinary retention with incomplete voiding vs renal stone causing recurrent UTIs continue flomax avoid constipation bladder scan bid to evaluate for post void residual discussed with Dr Rivera for possibly cystoscopy as inpatient Chronic kidney injury: Not significantly deviated from her baseline. continue to monitor Insulin-dependent diabetes: uncontrolled with sugars> 500 today. she is on a consistent carb 2 g sodium diet by mouth, but remains uncontrolled titrating her long acting and short acting insulin for better glycemic control Obstructive sleep apnea: Continue with CPAP Obesity: Complicating care Obesity hypoventilation syndrome: Complicating care Chronic hypoxic respiratory failure: She uses 2 L at her baseline intermittently at home as outlined above Asthma: As outlined above Gout: Continue Allopurinol with colchicine DVT: Status post IVC filter Hypertension She is continued on bisoprolol Hyperlipidemia continue atorvastatin Migraines and seizure disorder: The patient is continued on Keppra and Lyrica Fioricet one tablet every six hours as needed for migraine headache. Gastroesophageal reflux disease The patient is on a PPI and Carafate Vitamin D deficiency her monthly supplementation is currently on hold Chronic anemia due to chronic disease and iron deficiency Chronic diastolic congestive heart failure: Appears to be euvolemic at this time continue torsemide and spironolactone Irritable bowel syndrome with constipation Her home bowel regimen is in place mild of mag, lactulose, docusate, senna will give mag citrate and enema today. Restless leg syndrome: Continue with Requip Cervicalgia / Myofascial pain syndrome/ Migraine headache. per pain management recommendations, HAS spinal cord stimulator. MARCAINE/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 BACK THAT AT PRESENT TIME IS TURNED DOWN TO LOWEST SETTING JUST TO KEEP OPEN continue cymbaltaspencer Renal stone asymptomatic History of C diff last year. DVT prophylaxis has been ordered. VS,Fishbone, I+O VS, Fishbone, I+O Laboratory Tests 05/22/18 05:55 Red Blood Count 4.71, Mean Corpuscular Volume 76.2 L, Mean Corpuscular Hemoglobin 21.7 L, Mean Corpuscular Hemoglobin Concent 28.4 L, Red Cell Distribution Width 22.7 H, Neutrophils (%) (Auto) 55.0, Lymphocytes (%) (Auto) 26.5, Monocytes (%) (Auto) 12.1 H, Eosinophils (%) (Auto) 4.7 H, Basophils (%) (Auto) 0.9, Neutrophils # (Auto) 4.2, Lymphocytes # (Auto) 2.0, Monocytes # (Auto) 0.9 H, Eosinophils # (Auto) 0.4, Basophils # (Auto) 0.1, Calcium Level 10.1 Vital Signs Date Time Temp Pulse Resp B/P (MAP) Pulse Ox O2 Delivery O2 Flow Rate FiO2 05/22/18 09:40 17 05/22/18 09:14 90 130/60 05/22/18 06:00 97.5 94 05/21/18 21:00 1.0 05/18/18 20:34 Room Air I&O- Last 24 Hours up to 6 AM 05/22/18 06:00 Intake Total 2350 ml Output Total 2800 ml Balance -450 ml FAWAD SHEPPARD MD May 22, 2018 15:08
[2018-05-22] MEDS: rOPINIRole 2MG TAB PO SCH ×2 (15:53→20:20)
[2018-05-22] MEDS ORDERED: HumaLOG INSULIN (NovoLOG) PER UNIT SC ONE (17:30)
--- NOTE | 2018-05-22 18:13 | SMCUROLCON ---
Urology Consultation General Date of Consultation 05/22/18 Reason For Consultation This patient is seen for UTI. History of Present Illness This is a 72 y/o F w/ a PMH significant for HTN, CHF, DM2, neurogenic bladder, and recurrent UTIs, admitted to the hospital after being diagnosed w/ another UTI. The patient notes a few days after completing IV antibiotics for a UTI she started developing dysuria, chills, and mild left flank pain. A urine culture was obtained and was notable for ESBL E coli. She notes that her symptoms have started to improve since she was started on meropenem on admission a few days ago. A CT A/P was done on admission and it was notable only for a 4mm nonobstructing left lower pole kidney stone and a 5mm simple right renal cyst. There was no perinephric stranding. The patient has been bladder scanned a few times since admission, each time demonstrating some degree of retention, usually ranging between 80cc to 175cc per patient report. Past Medical History Medical History see HPI Surgical Hstory hysterectomy, L4-L5 discectomy, hiatal hernia repair, BCC removed from face Medications Current Medications Current Medications Acetaminophen (Tylenol Arthritis Er) 650 mg Q8H PRN PO PAIN Last administered on 05/22/18at 15:54; Start 05/18/18 at 17:00 Albuterol Sulfate (Proventil Neb) 2.5 mg Q4H PRN INH SHORTNESS OF BREATH; Start 05/18/18 at 17:00 Allopurinol (Zyloprim) 300 mg DAILY PO Last administered on 05/22/18at 09:15; Start 05/19/18 at 09:00 Atorvastatin Calcium (Lipitor) 10 mg DAILY PO Last administered on 05/22/18at 09:15; Start 05/19/18 at 09:00 Benzonatate (Tessalon Perles) 100 mg TID PRN PO COUGH; Start 05/18/18 at 17:00 Betamethasone Valerate (Valisone) APPLY TO LEGS FOR HOTSPOTS QHS TOP Last administered on 05/21/18at 20:44; Start 05/18/18 at 21:00 Bisoprolol Fumarate (Zebeta) 2.5 mg DAILY PO Last administered on 05/22/18at 09:14; Start 05/19/18 at 09:00 Calcitriol (Rocaltrol) 0.25 mcg DAILY PO Last administered on 05/22/18at 09:14; Start 05/19/18 at 09:00 Colchicine (Colcrys) 0.6 mg DAILY PO Last administered on 05/22/18at 09:31; Start 05/19/18 at 09:00 Dextrose (Dextrose 50%) 25 ml ASDIRECTED PRN IV SEE LABEL COMMENTS; Start 05/18/18 at 17:00 Docusate Sodium (Colace) 100 mg BID PO Last administered on 05/22/18at 09:15; Start 05/18/18 at 21:00 Duloxetine HCl (Cymbalta) 60 mg BID PO Last administered on 05/22/18at 09:16; Start 05/18/18 at 21:00 Glucagon (Glucagon) 1 mg ASDIRECTED PRN SC SEE LABEL COMMENTS; Start 05/18/18 at 17:00 Glucose (Glucose) 16 GM ASDIRECTED PRN PO SEE LABEL COMMENTS; Start 05/18/18 at 17:00 Guaifenesin (Mucinex Tab Er) 600 mg BID PRN PO CONGESTION; Start 05/18/18 at 17:00 Heparin Sodium (Heparin (Flush)) 500 units ASDIRECTED PRN IV SEE LABEL COMMENTS Last administered on 05/22/18at 05:57; Start 05/20/18 at 04:30 Home Med (Med Rec Complete!) ASDIRECTED XX ; Start 05/18/18 at 14:30; Stop 05/18/18 at 14:30; Status DC Insulin Detemir (Levemir Insulin) 40 units BID SC Last administered on 05/20/18at 20:35; Start 05/20/18 at 09:00; Stop 05/21/18 at 07:33; Status DC Insulin Detemir (Levemir Insulin) 50 units BID SC Last administered on 05/22/18at 09:30; Start 05/21/18 at 09:00; Stop 05/22/18 at 09:12; Status DC Insulin Detemir (Levemir Insulin) 60 units BID SC ; Start 05/22/18 at 21:00; Stop 05/22/18 at 21:00; Status DC Insulin Detemir (Levemir Insulin) 75 units BID SC ; Start 05/22/18 at 21:00 Insulin Human Lispro (HumaLOG INSULIN) 20 units STAT STAT SC Last administered on 05/22/18 12:35; Start 05/22/18 at 12:15; Stop 05/22/18 at 12:18; Status DC Insulin Human Lispro (HumaLOG INSULIN) SEE PROTOCOL TABLE AC SC Last administered on 05/22/18 06:56; Start 05/18/18 at 17:30 Lactic Acid (Lac-Hydrin 12% Lotion) APPLY TO LEGS/FEET BID TOP Last administered on 05/22/18 09:00; Start 05/18/18 at 21:00 Lactulose (Cephulac) 30 ml BID PO Last administered on 05/22/18 09:10; Start 05/18/18 at 21:00 Levetiracetam (Keppra Xr) 500 mg BID PO Last administered on 05/22/18 09:31; Start 05/18/18 at 21:00 Magnesium Hydroxide (Milk Of Magnesia) 30 ml DAILY PRN PO CONSTIPATION Last administered on 05/20/18 18:43; Start 05/18/18 at 17:00 Meropenem 1 gm/IV Miscellaneous Supplies 50 ml @ 100 mls/hr Q12H IV Last administered on 05/22/18 15:54; Start 05/19/18 at 03:00 Metoclopramide HCl (Reglan) 10 mg TID PO Last administered on 05/22/18 15:54; Start 05/18/18 at 21:00 Mineral Oil (Fleet Oil Retention Enema) DAILYPRN PRN NC CONSTIPATION; Start 05/20/18 at 22:45 Morphine Sulfate (Morphine Sulfate Inj) 2 mg Q2HP PRN IV SEVERE PAIN (PS 8-10) Last administered on 05/22/18 09:30; Start 05/18/18 at 16:45 Morphine Sulfate (Morphine Sulfate Inj) 2 mg Q30M PRN IV MODERATE PAIN (PS 5-7) Last administered on 05/18/18 18:30; Start 05/18/18 at 16:00; Stop 05/18/18 at 22:38; Status DC Nystatin (Mycostatin) APPLY AROUND VAGI... TID PRN TOP RASH; Start 05/18/18 at 17:00 Nystatin (Mycostatin) APPLY UNDER STACIA... BID PRN TOP RASH; Start 05/18/18 at 17:00 Omeprazole (PriLOSEC) 20 mg BID PO Last administered on 05/22/18 09:15; Start 05/18/18 at 21:00 Ondansetron HCl (Zofran) 4 mg QID PRN PO NAUSEA OR VOMITING Last administered on 05/20/18 08:38; Start 05/18/18 at 17:00 Polyethylene Glycol (Miralax) 1 pkt DAILY PO Last administered on 05/22/18 09:11; Start 05/19/18 at 09:00 Potassium Chloride (Micro-K Extencaps) 20 meq BID PO Last administered on 09:15; Start 05/18/18 at 21:00 Pregabalin (Lyrica) 150 mg TID PO Last administered on 05/22/18 15:53; Start 05/18/18 at 21:00 Ropinirole HCl (Requip) 2 mg BID@1500,2100 PO Last administered on 05/22/18 15:53; Start 05/18/18 at 21:00 Senna (Senokot) 1 tab BID PO Last administered on 05/22/18 09:15; Start 05/18/18 at 21:00 Sodium Chloride (Saline Lock Flush) 10 ml ASDIRECTED PRN IV SEE LABEL COMMENTS Last administered on 05/21/18 12:59; Start 05/20/18 at 04:30 Spironolactone (Aldactone) 25 mg BID@0900,1700 PO Last administered on 05/22/18 17:31; Start 05/19/18 at 09:00 Sucralfate (Carafate) 1 gm BID@0730,1730 PO Last administered on 05/22/18 17:31; Start 05/19/18 at 07:30 Tamsulosin HCl (Flomax) 0.4 mg DAILY PO Last administered on 05/22/18 09:14; Start 05/19/18 at 09:00 Torsemide (Demadex) 60 mg BID@0900,1700 PO Last administered on 05/22/18 17:31; Start 05/18/18 at 17:00 Triamcinolone Acetonide (Kenalog 0.025% Cream) APPLY ON THIGHS BID TOP Last administered on 05/22/18 09:00; Start 05/18/18 at 21:00 Allergies Allergies: Coded Allergies: Cephalosporins (Verified Allergy, Intermediate, KEFLEX - HIVES, 01/23/18) Chlorpromazine (Verified Allergy, Intermediate, HIVES, 01/23/18) Loratadine (Verified Allergy, Intermediate, HIVES, 01/23/18) Penicillins (Verified Allergy, Intermediate, HIVES, 01/23/18) Pentazocine (Verified Allergy, Intermediate, HIVES, 01/23/18) Sulfa Antibiotics (Unverified Allergy, Intermediate, HIVES, 01/23/18) Methadone (Verified Allergy, Unknown, 01/23/18) Latex (Verified Adverse Reaction, Mild, RISK, 01/23/18) Review of Systems General: Reports: Chills Constitutional: Denies: Fever Pulmonary: Denies: Dyspnea, Cough Cardiovascular: Denies Chest Pain, Denies Palpitations Gastrointestinal: Reports: Constipation Genitourinary: Reports: Hematuria Musculoskeletal: Reports: Back Pain (mild left flank pain) Psych: Reports: Mood Normal Physical Examination General Exam: Alert, Cooperative, No Acute Distress Chest Exam: Normal air movement Heart Exam: Rate Normal Abdomen Exam: Soft Skin Exam: Nl turgor and temperature Neuro Exam: Normal Speech Psych Exam: Mental status NL, Mood NL Vital Signs/I&O Vital Signs Date Time Temp Pulse Resp B/P (MAP) Pulse Ox O2 Delivery O2 Flow Rate FiO2 05/22/18 14:00 98.2 90 17 144/64 (90) 91 05/21/18 21:00 1.0 05/18/18 20:34 Room Air I&O- Last 24 Hours up to 6 AM 05/22/18 06:00 Intake Total 2350 ml Output Total 2800 ml Balance -450 ml Laboratory Data 24H Labs Laboratory Tests 2 05/21/18 20:36: Bedside Glucose (Misc Panel) 395H 05/22/18 05:55: Immature Granulocyte % (Auto) 0.8, White Blood Count 7.6, Red Blood Count 4.71, Hemoglobin 10.2L, Hematocrit 35.9L, Mean Corpuscular Volume 76.2L, Mean Corpuscular Hemoglobin 21.7L, Mean Corpuscular Hemoglobin Concent 28.4L, Red Cell Distribution Width 22.7H, Platelet Count 299, Neutrophils (%) (Auto) 55.0, Lymphocytes (%) (Auto) 26.5, Monocytes (%) (Auto) 12.1H, Eosinophils (%) (Auto) 4.7H, Basophils (%) (Auto) 0.9, Neutrophils # (Auto) 4.2, Lymphocytes # (Auto) 2.0, Monocytes # (Auto) 0.9H, Eosinophils # (Auto) 0.4, Basophils # (Auto) 0.1, Nucleated Red Blood Cells % (auto) 0.0, Anion Gap 8, Glomerular Filtration Rate 29.2L, Blood Urea Nitrogen 38H, Creatinine 1.81H, Sodium Level 132L, Potassium Level 4.3, Chloride Level 89L, Carbon Dioxide Level 35H, Calcium Level 10.1 05/22/18 12:01: Bedside Glucose (Misc Panel) 539*H 05/22/18 12:04: Bedside Glucose (Misc Panel) 537*H 05/22/18 12:22: Bedside Glucose Confirm (Misc) 531*H 05/22/18 16:59: Bedside Glucose (Misc Panel) 530*H 05/22/18 17:18: CBC/BMP Laboratory Tests 05/22/18 05:55 Red Blood Count 4.71, Mean Corpuscular Volume 76.2 L, Mean Corpuscular Hemoglo bin 21.7 L, Mean Corpuscular Hemoglobin Concent 28.4 L, Red Cell Distribution Width 22.7 H, Neutrophils (%) (Auto) 55.0, Lymphocytes (%) (Auto) 26.5, Monocytes (%) (Auto) 12.1 H, Eosinophils (%) (Auto) 4.7 H, Basophils (%) (Auto) 0.9, Neutrophils # (Auto) 4.2, Lymphocytes # (Auto) 2.0, Monocytes # (Auto) 0.9 H, Eosinophils # (Auto) 0.4, Basophils # (Auto) 0.1, Calcium Level 10.1 Microbiology Microbiology 05/18/18 Blood Culture - Preliminary, Resulted No Growth after 72 hours. All specime... 05/18/18 Blood Culture - Preliminary, Resulted No Growth after 72 hours. All specime... Assessment This is a 72 y/o F w/ recurrent ESBL E coli UTIs and incomplete bladder emptying. She also has a very small left kidney stone. This is unlikely to be a nidus for infection given its size. It is possible that her incomplete bladder emptying is the predisposing factor. I recommend placing a 16Fr catheter and leaving it indwelling. I discussed w/ the patient that a chronic indwelling catheter carries its own risk of causing recurrent UTIs, but I it is lower than the risk of recurrent UTIs due to urinary retention. She noted understanding. If the frequency of her UTIs decreases w/ an indwelling catheter, I would recommend later on placing a suprapubic catheter. Plan - please place a 16Fr Al catheter and leave it indwelling (she should be discharged w/ this) - will discontinue flomax - cont antibiotic course per ID - my office will arrange f/u w/ me in approximately 2-3 wks KIN MERCER MD May 22, 2018 18:13
[2018-05-22] MEDS: BETAMETHASONE VAL 0.1% OINT 15 GM TOP SCH (20:22)
[2018-05-22] MEDS ORDERED: LEVEMIR (INSULIN DETEMIR) 1 UNITS/0.01ML SC SCH (21:00)
[2018-05-22 22:00] VITALS: BP 149/69
[2018-05-23] MEDS: MEROPENEM INJ 1 GM in APPROPRIATE DILUENT 1 EA IV SCH ×2 (02:57→15:50)
[2018-05-23] MEDS: SODIUM CHLORIDE 0.9% INJ 10 ML SYR IV PRN ×3 (04:48→21:04)
[2018-05-23 05:56] LABS: BASO # 0.1 10^3/uL (0.0-0.2); BASO % 1.1 % (0.0-1.0); EOS # 0.3 10^3/uL (0.0-0.50); EOS % 4.4 % (0.0-3.0); HEMATOCRIT 35.4 % (36.0-47.0); HEMOGLOBIN 10.2 g/dl (12.0-15.5); LYMPH # 2.1 10^3/uL (1.5-4.5); LYMPH % 31.6 % (24.0-44.0); MEAN CORPUSCULAR HEMOGLOBIN 21.7 pg (27.0-33.0); MEAN CORPUSCULAR HGB CONC 28.8 g/dl (32.0-36.5); MEAN CORPUSCULAR VOLUME 75.2 fl (80.0-96.0); MONO % 14.9 % (0.0-5.0); NEUTROPHILS # 3.1 10^3/uL (1.8-7.7); NEUTROPHILS % 46.9 % (36.0-66.0); PLATELET COUNT, AUTOMATED 302 10^3/uL (150-450); RED BLOOD COUNT 4.71 10^6/uL (4.00-5.40); WHITE BLOOD COUNT 6.6 10^3/uL (4.0-10.0)
[2018-05-23 06:00] VITALS: BP 153/67
[2018-05-23 06:30] LABS: CALCIUM LEVEL 10.9 MG/DL (8.8-10.2); CREATININE FOR GFR 1.65 MG/DL (0.55-1.30); GLOMERULAR FILTRATION RATE 32.5 (>39); POTASSIUM SERUM 4.1 MEQ/L (3.5-5.1)
[2018-05-23] MEDS: HumaLOG INSULIN (NovoLOG) PER UNIT SC SCH ×4 (06:51→17:30)
[2018-05-23] MEDS: SUCRALFATE 1 GM TAB PO SCH ×2 (07:30→18:52)
[2018-05-23 08:49] VITALS: BP 136/92
[2018-05-23] MEDS: CALCITRIOL 0.25 MCG CAP (S0169) PO SCH (10:24)
[2018-05-23] MEDS: DULoxetine 30 MG CAP (CYMBALTA) PO SCH ×2 (10:24→20:36)
[2018-05-23] MEDS: OMEPRAZOLE 20 MG CAP PO SCH ×2 (10:25→20:36)
[2018-05-23] MEDS: TAMSULOSIN 0.4 MG CAP PO SCH (10:25)
[2018-05-23] MEDS: METOCLOPRAMIDE 10 MG TAB PO SCH ×3 (10:25→20:37)
[2018-05-23] MEDS: DOCUSATE SODIUM 100 MG CAP PO SCH ×2 (10:25→20:37)
[2018-05-23] MEDS: POTASSIUM CHLORIDE 10 MEQ SR TABLET PO SCH ×2 (10:26→20:37)
[2018-05-23] MEDS: TORSEMIDE 20 MG TAB PO SCH ×2 (10:26→16:35)
[2018-05-23] MEDS: ACETAMINOPHEN 650MG ER TAB (TYLENOL ARTHRITIS) PO PRN ×2 (10:27→18:52)
[2018-05-23] MEDS: levETIRAcetam **XR** 500 MG TABLET PO SCH ×2 (10:27→20:36)
[2018-05-23] MEDS: BISOPROLOL FUM 2.5 MG PER 1/2TAB PO SCH (10:28)
[2018-05-23] MEDS: ATORVASTATIN 10 MG TAB PO SCH (10:28)
[2018-05-23] MEDS: ALLOPURINOL 300 MG TAB PO SCH (10:28)
[2018-05-23] MEDS: SPIRONOLACTONE 25 MG TAB PO SCH ×2 (10:28→16:35)
[2018-05-23] MEDS: MIRALAX *UNIT DOSE* 17GM PACKET PO SCH (10:29)
[2018-05-23] MEDS: MOM 30ML SUSPENSION UDC PO PRN (10:29)
[2018-05-23] MEDS: PREGABALIN 75 MG CAP(LYRICA) PO SCH ×3 (10:29→20:37)
[2018-05-23] MEDS: COLCHICINE 0.6 MG TAB PO SCH (10:29)
[2018-05-23] MEDS: LACTULOSE 20 GM/30 ML SYRUP UD PO SCH ×2 (10:29→20:37)
[2018-05-23] MEDS: SENNA 8.6 MG TAB (SENOKOT) PO SCH ×2 (10:29→20:37)
[2018-05-23] MEDS: LEVEMIR (INSULIN DETEMIR) 1 UNITS/0.01ML SC SCH ×2 (10:30→20:38)
[2018-05-23] MEDS: BETAMETHASONE VAL 0.1% OINT 15 GM TOP SCH ×2 (10:31→20:40)
[2018-05-23] MEDS: LACTIC ACID 12% LOTION 225 GM BTL TOP SCH ×2 (10:31→20:38)
[2018-05-23] MEDS: TRIAMCINOLONE ACETONIDE 0.025 % 80 GM CREAM TOP SCH ×2 (10:32→20:39)
--- NOTE | 2018-05-23 11:11 | IPNPDOC ---
Date Seen The patient was seen on 05/23/18. Progress Note SUBJECTIVE: Per urology, dc flomax, 16french prater keep indwelling outpt fu in 2 wks . pt c/o back pain and follows w dr. rodriguez and pain mgt for right hip pain. refusing oxycodone because of ams "makes me loopy." some relief w morphine. pain mgt consulted. PHYSICAL EXAM: VITAL SIGNS: As below. HEAD: Atraumatic, normocephalic. NECK: Supple. No jugular venous distention (JVD). LUNGS: Clear to auscultation. HEART: S1, S2 audible. No murmurs appreciated. ABDOMEN: Soft. Positive bowel sounds. No pedal edema. SKIN: Intact. NEUROLOGIC: Patient awake, alert, oriented times three. Labs and Radiology : Reviewed ASSESSMENT and PLAN: Patient is a 72-year-old female with a extensive past medical history of morbid obesity, COPD, MATT, Obesity hypoventilation , gout, chronic pain, hypertension, diabetes, hyperlipidemia, morbid obesity,urinary retention, chronic recurrent urinary tract infections (UTIs), chronic kidney disease (CKD) III who presents to the emergency room due to abnormal labs. Patient has dysuria and frequency and went to Dr. Art's office. Urinalysis (UA) was done and results came back of the urinalysis which was suggestive of a UTI, so the patient came to emergency room (ER) for evaluation due to the fact that she has a history of extended-spectrum beta lactamase (ESBL) in the urine. While she was in the ER, the cultures did come back as positive for ESBL, so the patient will be admitted for intravenous (IV) meropenem. Recurrent UTIs with ESBL Ecoli from culture on 05/16 just finished 3 weeks of Ertapenem at home for ESBL ecoli in March and april. on iv meropenem appreciate Dr Art's input. Neurogenic Urinary retention with incomplete voiding vs renal stone causing recurrent UTIs continue flomax avoid constipation bladder scan bid to evaluate for post void residual discussed with Dr Rivera for possibly cystoscopy as inpatient dc flomax 16french prater indwelling outpt fu 2wks Chronic kidney injury: Not significantly deviated from her baseline. continue to monitor Insulin-dependent diabetes: uncontrolled with sugars> 500 today. she is on a consistent carb 2 g sodium diet by mouth, but remains uncontrolled titrating her long acting and short acting insulin for better glycemic control Obstructive sleep apnea: Continue with CPAP Obesity: Complicating care Obesity hypoventilation syndrome: Complicating care Chronic hypoxic respiratory failure: She uses 2 L at her baseline intermittently at home as outlined above Asthma: As outlined above Gout: Continue Allopurinol with colchicine DVT: Status post IVC filter Hypertension She is continued on bisoprolol Hyperlipidemia continue atorvastatin Migraines and seizure disorder: The patient is continued on Keppra and Lyrica Fioricet one tablet every six hours as needed for migraine headache. Gastroesophageal reflux disease The patient is on a PPI and Carafate Vitamin D deficiency her monthly supplementation is currently on hold Chronic anemia due to chronic disease and iron deficiency Chronic diastolic congestive heart failure: Appears to be euvolemic at this time continue torsemide and spironolactone Irritable bowel syndrome with constipation Her home bowel regimen is in place mild of mag, lactulose, docusate, senna will give mag citrate and enema today. Restless leg syndrome: Continue with Requip Cervicalgia / Myofascial pain syndrome/ Migraine headache. per pain management recommendations, HAS spinal cord stimulator. MARCAINE/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 BACK THAT AT PRESENT TIME IS TURNED DOWN TO LOWEST SETTING JUST TO KEEP OPEN continue cymbalta, lyrica Renal stone asymptomatic History of C diff last year. right hip pain pain mgt consulted 05/23/18 refuses oxycodone "makes me loopy." some relief w morphine DVT prophylaxis has been ordered. VS, I&O, 24H, Fishbone Vital Signs/I&O Vital Signs Date Time Temp Pulse Resp B/P (MAP) Pulse Ox O2 Delivery O2 Flow Rate FiO2 05/23/18 10:28 96 136/92 05/23/18 08:49 97.1 17 94 1.0 05/18/18 20:34 Room Air I&O- Last 24 Hours up to 6 AM 05/23/18 06:00 Intake Total 2070 ml Output Total 6040 ml Balance -3970 ml Laboratory Data 24H LABS Laboratory Tests 2 05/22/18 12:01: Bedside Glucose (Misc Panel) 539*H 05/22/18 12:04: Bedside Glucose (Misc Panel) 537*H 05/22/18 12:22: Bedside Glucose Confirm (Misc) 531*H 05/22/18 16:59: Bedside Glucose (Misc Panel) 530*H 05/22/18 17:18: Bedside Glucose Confirm (Misc) 529*H 05/22/18 20:28: Bedside Glucose (Misc Panel) 493H 05/23/18 05:22: Immature Granulocyte % (Auto) 1.1, White Blood Count 6.6, Red Blood Count 4.71, Hemoglobin 10.2L, Hematocrit 35.4L, Mean Corpuscular Volume 75.2L, Mean Corpuscular Hemoglobin 21.7L, Mean Corpuscular Hemoglobin Concent 28.8L, Red Cell Distribution Width 22.7H, Platelet Count 302, Neutrophils (%) (Auto) 46.9, Lymphocytes (%) (Auto) 31.6, Monocytes (%) (Auto) 14.9H, Eosinophils (%) (Auto) 4.4H, Basophils (%) (Auto) 1.1H, Neutrophils # (Auto) 3.1, Lymphocytes # (Auto) 2.1, Monocytes # (Auto) 1.0H, Eosinophils # (Auto) 0.3, Basophils # (Auto) 0.1, Nucleated Red Blood Cells % (auto) 0.0, Anion Gap 7L, Glomerular Filtration Rate 32.5L, Blood Urea Nitrogen 37H, Creatinine 1.65H, Sodium Level 131L, Potassium Level 4.1, Chloride Level 88L, Carbon Dioxide Level 36H, Calcium Level 10.9H CBC/BMP Laboratory Tests 05/23/18 05:22 Red Blood Count 4.71, Mean Corpuscular Volume 75.2 L, Mean Corpuscular H emoglobin 21.7 L, Mean Corpuscular Hemoglobin Concent 28.8 L, Red Cell Distribution Width 22.7 H, Neutrophils (%) (Auto) 46.9, Lymphocytes (%) (Auto) 31.6, Monocytes (%) (Auto) 14.9 H, Eosinophils (%) (Auto) 4.4 H, Basophils (%) (Auto) 1.1 H, Neutrophils # (Auto) 3.1, Lymphocytes # (Auto) 2.1, Monocytes # (Auto) 1.0 H, Eosinophils # (Auto) 0.3, Basophils # (Auto) 0.1, Calcium Level 10.9 H Microbiology Microbiology 05/18/18 Blood Culture - Preliminary, Resulted No Growth after 72 hours. All specime... 05/18/18 Blood Culture - Preliminary, Resulted No Growth after 72 hours. All specime... NUSRAT GUERRERO MD May 23, 2018 10:58
[2018-05-23 12:16] LABS: HEMOGLOBIN A1c 9.5 %
[2018-05-23] MEDS: MORPHINE 4 MG/ML 1ML VIAL/SYRINGE (J2270) IV PRN ×2 (13:26→21:04)
[2018-05-23 15:29] VITALS: BP 135/78
[2018-05-23] MEDS: rOPINIRole 2MG TAB PO SCH ×2 (15:50→20:36)
--- NOTE | 2018-05-23 16:58 | IPN ---
DATE: 05/23/2018 Maricarmen is a 72-year-old female well-known to the pain clinic over the years for chronic neck and generalized back pain. She was admitted a few days ago for a urinary tract infection for IV antibiotics. Having her usual complaints of chronic pain. We do have her scheduled to come in for trigger point injections. Unfortunately, she cannot come in any sooner as Dr. Gabriel is not available for the next two weeks. We have tried multiple different medications over the years both narcotic and nonnarcotic with Maricarmen and she has had either allergic reactions or adverse reactions except for oxycodone. I know it is not as effective for her but she cannot tolerate any other medications. We have tried to get her to trial other medications, but she is not able to afford the copay and has to take medications that are covered by her insurance at 100%. I have no other options but to recommend to continue with oxycodone that we are giving her for chronic pain as an outpatient. She takes this very infrequently. Keep her scheduled appointment in the next few weeks for trigger points at our clinic. Continue on Lyrica 150 mg twice a day.
[2018-05-23 22:00] VITALS: BP 138/64
[2018-05-24] MEDS: MEROPENEM INJ 1 GM in APPROPRIATE DILUENT 1 EA IV SCH ×2 (04:03→15:27)
[2018-05-24 06:00] VITALS: BP 127/60
[2018-05-24] MEDS: HumaLOG INSULIN (NovoLOG) PER UNIT SC SCH ×6 (07:30→17:36)
[2018-05-24] MEDS: SUCRALFATE 1 GM TAB PO SCH ×2 (07:30→17:34)
[2018-05-24] MEDS: LACTIC ACID 12% LOTION 225 GM BTL TOP SCH ×2 (09:00→21:58)
[2018-05-24] MEDS: TRIAMCINOLONE ACETONIDE 0.025 % 80 GM CREAM TOP SCH ×2 (09:00→21:58)
[2018-05-24] MEDS: LACTULOSE 20 GM/30 ML SYRUP UD PO SCH ×2 (10:03→21:55)
[2018-05-24] MEDS: MIRALAX *UNIT DOSE* 17GM PACKET PO SCH (10:03)
[2018-05-24] MEDS: DOCUSATE SODIUM 100 MG CAP PO SCH ×2 (10:04→21:57)
[2018-05-24] MEDS: levETIRAcetam **XR** 500 MG TABLET PO SCH ×2 (10:04→21:57)
[2018-05-24] MEDS: METOCLOPRAMIDE 10 MG TAB PO SCH ×3 (10:04→21:56)
[2018-05-24] MEDS: DULoxetine 30 MG CAP (CYMBALTA) PO SCH ×2 (10:04→21:56)
[2018-05-24] MEDS: CALCITRIOL 0.25 MCG CAP (S0169) PO SCH (10:04)
[2018-05-24] MEDS: ALLOPURINOL 300 MG TAB PO SCH (10:04)
[2018-05-24] MEDS: SENNA 8.6 MG TAB (SENOKOT) PO SCH ×2 (10:05→21:56)
[2018-05-24] MEDS: TAMSULOSIN 0.4 MG CAP PO SCH (10:05)
[2018-05-24] MEDS: COLCHICINE 0.6 MG TAB PO SCH (10:05)
[2018-05-24] MEDS: PREGABALIN 75 MG CAP(LYRICA) PO SCH ×3 (10:05→21:56)
[2018-05-24] MEDS: TORSEMIDE 20 MG TAB PO SCH ×2 (10:06→17:34)
[2018-05-24] MEDS: POTASSIUM CHLORIDE 10 MEQ SR TABLET PO SCH ×2 (10:06→21:56)
[2018-05-24] MEDS: SPIRONOLACTONE 25 MG TAB PO SCH ×2 (10:06→17:34)
[2018-05-24] MEDS: BISOPROLOL FUM 2.5 MG PER 1/2TAB PO SCH (10:07)
[2018-05-24] MEDS: OMEPRAZOLE 20 MG CAP PO SCH ×2 (10:07→21:56)
[2018-05-24] MEDS: ATORVASTATIN 10 MG TAB PO SCH (10:07)
[2018-05-24] MEDS: LEVEMIR (INSULIN DETEMIR) 1 UNITS/0.01ML SC SCH ×2 (10:08→21:55)
[2018-05-24 10:33] LABS: BASO # 0.1 10^3/uL (0.0-0.2); BASO % 1.3 % (0.0-1.0); EOS # 0.3 10^3/uL (0.0-0.50); EOS % 3.7 % (0.0-3.0); HEMATOCRIT 36.1 % (36.0-47.0); HEMOGLOBIN 10.5 g/dl (12.0-15.5); LYMPH # 1.9 10^3/uL (1.5-4.5); LYMPH % 26.3 % (24.0-44.0); MEAN CORPUSCULAR HEMOGLOBIN 21.7 pg (27.0-33.0); MEAN CORPUSCULAR HGB CONC 29.1 g/dl (32.0-36.5); MEAN CORPUSCULAR VOLUME 74.7 fl (80.0-96.0); MONO # 0.8 10^3/uL (0.0-0.8); MONO % 11.2 % (0.0-5.0); NEUTROPHILS % 56.5 % (36.0-66.0); PLATELET COUNT, AUTOMATED 336 10^3/uL (150-450); RED BLOOD COUNT 4.83 10^6/uL (4.00-5.40); WHITE BLOOD COUNT 7.1 10^3/uL (4.0-10.0)
[2018-05-24] MEDS: MORPHINE 4 MG/ML 1ML VIAL/SYRINGE (J2270) IV PRN ×2 (10:52→17:48)
[2018-05-24] MEDS: ONDANSETRON 4 MG TAB (S0181) PO PRN (10:52)
[2018-05-24 11:30] LABS: CALCIUM LEVEL 10.5 MG/DL (8.8-10.2); CREATININE FOR GFR 1.77 MG/DL (0.55-1.30); GLOMERULAR FILTRATION RATE 29.9 (>39)
--- NOTE | 2018-05-24 12:22 | IPNPDOC ---
Date Seen The patient was seen on 05/24/18. Progress Note SUBJECTIVE: Pt still c/o right sided groin pain. Pain mgt recommends oxycodone and Lyrica bid. Per urology, dc flomax, 16french prater keep indwelling outpt fu in 2 wks . pt c/o back pain and follows w dr. rodriguez and pain mgt for right hip pain. refusing oxycodone because of ams "makes me loopy." some relief w morphine. PHYSICAL EXAM: VITAL SIGNS: As below. HEAD: Atraumatic, normocephalic. NECK: Supple. No jugular venous distention (JVD). LUNGS: Clear to auscultation. HEART: S1, S2 audible. No murmurs appreciated. ABDOMEN: Soft. Positive bowel sounds. No pedal edema. SKIN: Intact. NEUROLOGIC: Patient awake, alert, oriented times three. Labs and Radiology : Reviewed ASSESSMENT and PLAN: Patient is a 72-year-old female with a extensive past medical history of morbid obesity, COPD, MATT, Obesity hypoventilation , gout, chronic pain, hypertension, diabetes, hyperlipidemia, morbid obesity,urinary retention, chronic recurrent urinary tract infections (UTIs), chronic kidney disease (CKD) III who presents to the emergency room due to abnormal labs. Patient has dysuria and frequency and went to Dr. Art's office. Urinalysis (UA) was done and results came back of the urinalysis which was suggestive of a UTI, so the patient came to emergency room (ER) for evaluation due to the fact that she has a history of extended-spectrum beta lactamase (ESBL) in the urine. While she was in the ER, the cultures did come back as positive for ESBL, so the patient will be admitted for intravenous (IV) meropenem. Recurrent UTIs with ESBL Ecoli from culture on 05/16 just finished 3 weeks of Ertapenem at home for ESBL ecoli in March and april. on iv meropenem appreciate Dr Art's input. Neurogenic Urinary retention with incomplete voiding vs renal stone causing recurrent UTIs continue flomax avoid constipation bladder scan bid to evaluate for post void residual discussed with Dr Rivera for possibly cystoscopy as inpatient dc flomax 16french prater indwelling outpt fu 2wks Chronic kidney injury: Not significantly deviated from her baseline. continue to monitor Insulin-dependent diabetes: uncontrolled with sugars> 500 today. she is on a consistent carb 2 g sodium diet by mouth, but remains uncontrolled titrating her long acting and short acting insulin for better glycemic control Obstructive sleep apnea: Continue with CPAP Obesity: Complicating care Obesity hypoventilation syndrome: Complicating care Chronic hypoxic respiratory failure: She uses 2 L at her baseline intermittently at home as outlined above Asthma: As outlined above Gout: Continue Allopurinol with colchicine DVT: Status post IVC filter Hypertension She is continued on bisoprolol Hyperlipidemia continue atorvastatin Migraines and seizure disorder: The patient is continued on Keppra and Lyrica Fioricet one tablet every six hours as needed for migraine headache. Gastroesophageal reflux disease The patient is on a PPI and Carafate Vitamin D deficiency her monthly supplementation is currently on hold Chronic anemia due to chronic disease and iron deficiency Chronic diastolic congestive heart failure: Appears to be euvolemic at this time continue torsemide and spironolactone Irritable bowel syndrome with constipation Her home bowel regimen is in place mild of mag, lactulose, docusate, senna will give mag citrate and enema today. Restless leg syndrome: Continue with Requip Cervicalgia / Myofascial pain syndrome/ Migraine headache. per pain management recommendations, HAS spinal cord stimulator. MARCAINE/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 BACK THAT AT PRESENT TIME IS TURNED DOWN TO LOWEST SETTING JUST TO KEEP OPEN continue cymbalta, lyrica Renal stone asymptomatic History of C diff last year. right hip pain pain mgt consulted 05/23/18 refuses oxycodone "makes me loopy." some relief w morphine pain mgt recommends lyrica bid and oxycodone. DVT prophylaxis has been ordered. VS, I&O, 24H, Fishbone Vital Signs/I&O Vital Signs Date Time Temp Pulse Resp B/P (MAP) Pulse Ox O2 Delivery O2 Flow Rate FiO2 05/24/18 11:02 16 05/24/18 10:07 68 130/62 05/24/18 06:00 98.9 92 05/23/18 08:49 1.0 05/18/18 20:34 Room Air I&O- Last 24 Hours up to 6 AM 05/24/18 05:59 Intake Total 3620 ml Output Total 5100 ml Balance -1480 ml Laboratory Data 24H LABS Laboratory Tests 2 05/23/18 16:46: Bedside Glucose (Misc Panel) 464H 05/23/18 19:58: Bedside Glucose (Misc Panel) 428H 05/24/18 09:44: Bedside Glucose (Misc Panel) 457H 05/24/18 10:14: Immature Granulocyte % (Auto) 1.0, White Blood Count 7.1, Red Blood Count 4.83, Hemoglobin 10.5L, Hematocrit 36.1, Mean Corpuscular Volume 74.7L, Mean Corpuscular Hemoglobin 21.7L, Mean Corpuscular Hemoglobin Concent 29.1L, Red Cell Distribution Width 22.8H, Platelet Count 336, Neutrophils (%) (Auto) 56.5, Lymphocytes (%) (Auto) 26.3, Monocytes (%) (Auto) 11.2H, Eosinophils (%) (Auto) 3.7H, Basophils (%) (Auto) 1.3H, Neutrophils # (Auto) 4.0, Lymphocytes # (Auto) 1.9, Monocytes # (Auto) 0.8, Eosinophils # (Auto) 0.3, Basophils # (Auto) 0.1, Nucleated Red Blood Cells % (auto) 0.0, Anion Gap 10, Glomerular Filtration Rate 29.9L, Blood Urea Nitrogen 41H, Creatinine 1.77H, Sodium Level 128L, Potassium Level 5.0#, Chloride Level 88L, Carbon Dioxide Level 30, Calcium Level 10.5H 05/24/18 11:43: Bedside Glucose (Misc Panel) 468H CBC/BMP Laboratory Tests 05/24/18 10:14 Red Blood Count 4.83, Mean Corpuscular Volume 74.7 L, Mean Corpuscular Hemoglobin 21.7 L, Mean Corpuscular Hemoglobin Concent 29.1 L, Red Cell Distribution Width 22.8 H, Neutrophils (%) (Auto) 56.5, Lymphocytes (%) (Auto) 26.3, Monocytes (%) (Auto) 11.2 H, Eosinophils (%) (Auto) 3.7 H, Basophils (%) (Auto) 1.3 H, Neutrophils # (Auto) 4.0, Lymphocytes # (Auto) 1.9, Monocytes # (Auto) 0.8, Eosinophils # (Auto) 0.3, Basophils # (Auto) 0.1, Calcium Level 10.5 H Microbiology Microbiology 05/18/18 Blood Culture - Final, Complete NO GROWTH AFTER 5 DAYS 2/14/19 Blood Culture - Final, Complete NO GROWTH AFTER 5 DAYS NUSRAT GUERRERO MD May 24, 2018 12:21
[2018-05-24 14:00] VITALS: BP 129/77
[2018-05-24] MEDS: rOPINIRole 2MG TAB PO SCH ×2 (15:27→21:57)
[2018-05-24] MEDS: BETAMETHASONE VAL 0.1% OINT 15 GM TOP SCH (21:59)
[2018-05-24 22:00] VITALS: BP 127/77
[2018-05-25] MEDS: MEROPENEM INJ 1 GM in APPROPRIATE DILUENT 1 EA IV SCH ×2 (03:44→17:55)
[2018-05-25] MEDS: SODIUM CHLORIDE 0.9% INJ 10 ML SYR IV PRN ×2 (04:43→06:02)
[2018-05-25 05:51] LABS: BASO # 0.1 10^3/uL (0.0-0.2); BASO % 1.3 % (0.0-1.0); EOS # 0.3 10^3/uL (0.0-0.50); EOS % 4.1 % (0.0-3.0); HEMATOCRIT 35.7 % (36.0-47.0); HEMOGLOBIN 10.3 g/dl (12.0-15.5); LYMPH % 25.3 % (24.0-44.0); MEAN CORPUSCULAR HEMOGLOBIN 21.9 pg (27.0-33.0); MEAN CORPUSCULAR HGB CONC 28.9 g/dl (32.0-36.5); MEAN CORPUSCULAR VOLUME 75.8 fl (80.0-96.0); MONO # 0.9 10^3/uL (0.0-0.8); MONO % 11.8 % (0.0-5.0); NEUTROPHILS # 4.4 10^3/uL (1.8-7.7); PLATELET COUNT, AUTOMATED 313 10^3/uL (150-450); RED BLOOD COUNT 4.71 10^6/uL (4.00-5.40); WHITE BLOOD COUNT 7.9 10^3/uL (4.0-10.0)
[2018-05-25 06:00] VITALS: BP 140/65
[2018-05-25] MEDS: MORPHINE 4 MG/ML 1ML VIAL/SYRINGE (J2270) IV PRN (06:01)
[2018-05-25 06:46] LABS: CREATININE FOR GFR 1.64 MG/DL (0.55-1.30); GLOMERULAR FILTRATION RATE 32.7 (>39); POTASSIUM SERUM 4.3 MEQ/L (3.5-5.1)
[2018-05-25] MEDS: HumaLOG INSULIN (NovoLOG) PER UNIT SC SCH ×6 (08:01→17:57)
[2018-05-25] MEDS: LEVEMIR (INSULIN DETEMIR) 1 UNITS/0.01ML SC SCH (08:03)
[2018-05-25] MEDS: MIRALAX *UNIT DOSE* 17GM PACKET PO SCH (08:03)
[2018-05-25] MEDS: ATORVASTATIN 10 MG TAB PO SCH (08:03)
[2018-05-25] MEDS: OMEPRAZOLE 20 MG CAP PO SCH ×2 (08:04→20:19)
[2018-05-25] MEDS: SENNA 8.6 MG TAB (SENOKOT) PO SCH ×2 (08:04→20:21)
[2018-05-25] MEDS: DOCUSATE SODIUM 100 MG CAP PO SCH ×2 (08:04→20:19)
[2018-05-25] MEDS: SUCRALFATE 1 GM TAB PO SCH ×2 (08:04→17:55)
[2018-05-25] MEDS: CALCITRIOL 0.25 MCG CAP (S0169) PO SCH (08:04)
[2018-05-25] MEDS: BISOPROLOL FUM 2.5 MG PER 1/2TAB PO SCH (08:04)
[2018-05-25] MEDS: DULoxetine 30 MG CAP (CYMBALTA) PO SCH ×2 (08:05→20:19)
[2018-05-25] MEDS: SPIRONOLACTONE 25 MG TAB PO SCH ×2 (08:05→17:56)
[2018-05-25] MEDS: METOCLOPRAMIDE 10 MG TAB PO SCH ×3 (08:05→20:19)
[2018-05-25] MEDS: POTASSIUM CHLORIDE 10 MEQ SR TABLET PO SCH ×2 (08:06→20:19)
[2018-05-25] MEDS: PREGABALIN 75 MG CAP(LYRICA) PO SCH (08:06)
[2018-05-25] MEDS: TAMSULOSIN 0.4 MG CAP PO SCH (08:07)
[2018-05-25] MEDS: LACTULOSE 20 GM/30 ML SYRUP UD PO SCH ×2 (08:07→20:18)
[2018-05-25] MEDS: ALLOPURINOL 300 MG TAB PO SCH (08:07)
[2018-05-25] MEDS: TORSEMIDE 20 MG TAB PO SCH ×2 (08:07→17:56)
[2018-05-25] MEDS: TRIAMCINOLONE ACETONIDE 0.025 % 80 GM CREAM TOP SCH ×2 (08:09→20:22)
[2018-05-25] MEDS: LACTIC ACID 12% LOTION 225 GM BTL TOP SCH ×2 (08:10→20:22)
[2018-05-25] MEDS: levETIRAcetam **XR** 500 MG TABLET PO SCH ×2 (08:14→20:19)
[2018-05-25] MEDS: COLCHICINE 0.6 MG TAB PO SCH (08:14)
--- NOTE | 2018-05-25 09:33 | IPNPDOC ---
Date Seen The patient was seen on 05/25/18. Progress Note SUBJECTIVE: despite increasing doses of both basal and short-acting insulin, pt's preprandial glucose remains >400mg/dL. a1c 9. no c/o abd pain, nausea or vomiting, and no signs of DKA. no fever chills. still c/o chronic low back pain and right groin pain s/p pain mgt consult: on lyrica, but pt refuses oxycodone, and is happy with iv morphine. PHYSICAL EXAM: VITAL SIGNS: As below. HEAD: Atraumatic, normocephalic. NECK: Supple. No jugular venous distention (JVD). LUNGS: Clear to auscultation. HEART: S1, S2 audible. No murmurs appreciated. ABDOMEN: Soft. Positive bowel sounds. No pedal edema. SKIN: Intact. NEUROLOGIC: Patient awake, alert, oriented times three. Labs and Radiology : Reviewed ASSESSMENT and PLAN: Patient is a 72-year-old female with a extensive past medical history of morbid obesity, COPD, MATT, Obesity hypoventilation , gout, chronic pain, hypertension, diabetes, hyperlipidemia, morbid obesity,urinary retention, chronic recurrent urinary tract infections (UTIs), chronic kidney disease (CKD) III who presents to the emergency room due to abnormal labs. Patient has dysuria and frequency and went to Dr. Art's office. Urinalysis (UA) was done and results came back of the urinalysis which was suggestive of a UTI, so the patient came to emergency room (ER) for ev aluation due to the fact that she has a history of extended-spectrum beta lactamase (ESBL) in the urine. While she was in the ER, the cultures did come back as positive for ESBL, so the patient will be admitted for intravenous (IV) meropenem. Recurrent UTIs with ESBL Ecoli from culture on 05/16 just finished 3 weeks of Ertapenem at home for ESBL ecoli in March and april. on iv meropenem appreciate Dr Art's input. Neurogenic Urinary retention with incomplete voiding vs renal stone causing recurrent UTIs continue flomax avoid constipation bladder scan bid to evaluate for post void residual discussed with Dr Rivera for possibly cystoscopy as inpatient dc flomax 16french prater indwelling outpt fu 2wks Chronic kidney injury: Not significantly deviated from her baseline. continue to monitor Insulin-dependent diabetes: uncontrolled with sugars> 500 today. A1c 9 she is on a consistent carb 2 g sodium diet by mouth, but remains uncontrolled titrating her long acting and short acting insulin for better glycemic control Obstructive sleep apnea: Continue with CPAP Obesity: Complicating care Obesity hypoventilation syndrome: Complicating care Chronic hypoxic respiratory failure: She uses 2 L at her baseline intermittently at home as outlined above Asthma: As outlined above Gout: Continue Allopurinol with colchicine DVT: Status post IVC filter Hypertension She is continued on bisoprolol Hyperlipidemia continue atorvastatin Migraines and seizure disorder: The patient is continued on Keppra and Lyrica Fioricet one tablet every six hours as needed for migraine headache. Gastroesophageal reflux disease The patient is on a PPI and Carafate Vitamin D deficiency her monthly supplementation is currently on hold Chronic anemia due to chronic disease and iron deficiency Chronic diastolic congestive heart failure: Appears to be euvolemic at this time continue torsemide and spironolactone Irritable bowel syndrome with constipation Her home bowel regimen is in place mild of mag, lactulose, docusate, senna will give mag citrate and enema today. Restless leg syndrome: Continue with Requip Cervicalgia / Myofascial pain syndrome/ Migraine headache. per pain management recommendations, HAS spinal cord stimulator. MARCAINE/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 BACK THAT AT PRESENT TIME IS TURNED DOWN TO LOWEST SETTING JUST TO KEEP OPEN continue cymbalta, lyrica tid Renal stone asymptomatic History of C diff last year. right hip pain pain mgt consulted 05/23/18 refuses oxycodone "makes me loopy." some relief w morphine pain mgt recommends lyrica oxycodone. DVT prophylaxis has been ordered. VS, I&O, 24H, Fishbone Vital Signs/I&O Vital Signs Date Time Temp Pulse Resp B/P (MAP) Pulse Ox O2 Delivery O2 Flow Rate FiO2 05/25/18 08:04 140/65 05/25/18 06:11 16 05/25/18 06:00 97.7 77 93 05/23/18 08:49 1.0 I&O- Last 24 Hours up to 6 AM 05/25/18 06:00 Intake Total 2390 ml Output Total 5025 ml Balance -2635 ml Laboratory Data 24H LABS Laboratory Tests 2 05/24/18 09:44: Bedside Glucose (Misc Panel) 457H 05/24/18 10:14: Immature Granulocyte % (Auto) 1.0, White Blood Count 7.1, Red Blood Count 4.83, Hemoglobin 10.5L, Hematocrit 36.1, Mean Corpuscular Volume 74.7L, Mean Corpuscular Hemoglobin 21.7L, Mean Corpuscular Hemoglobin Concent 29.1L, Red Cell Distribution Width 22.8H, Platelet Count 336, Neutrophils (%) (Auto) 56.5, Lymphocytes (%) (Auto) 26.3, Monocytes (%) (Auto) 11.2H, Eosinophils (%) (Auto) 3.7H, Basophils (%) (Auto) 1.3H, Neutrophils # (Auto) 4.0, Lymphocytes # (Auto) 1.9, Monocytes # (Auto) 0.8, Eosinophils # (Auto) 0.3, Basophils # (Auto) 0.1, Nucleated Red Blood Cells % (auto) 0.0, Anion Gap 10, Glomerular Filtration Rate 29.9L, Blood Urea Nitrogen 41H, Creatinine 1.77H, Sodium Level 128L, Potassium Level 5.0#, Chloride Level 88L, Carbon Dioxide Level 30, Calcium Level 10.5H 05/24/18 11:43: Bedside Glucose (Misc Panel) 468H 05/24/18 16:46: Bedside Glucose (Misc Panel) 397H 05/24/18 20:29: Bedside Glucose (Misc Panel) 459H 05/25/18 05:22: Immature Granulocyte % (Auto) 1.5, White Blood Count 7.9, Red Blood Count 4.71, Hemoglobin 10.3L, Hematocrit 35.7L, Mean Corpuscular Volume 75.8L, Mean Corpuscular Hemoglobin 21.9L, Mean Corpuscular Hemoglobin Concent 28.9L, Red Cell Distribution Width 22.7H, Platelet Count 313, Neutrophils (%) (Auto) 56.0, Lymphocytes (%) (Auto) 25.3, Monocytes (%) (Auto) 11.8H, Eosinophils (%) (Auto) 4.1H, Basophils (%) (Auto) 1.3H, Neutrophils # (Auto) 4.4, Lymphocytes # (Auto) 2.0, Monocytes # (Auto) 0.9H, Eosinophils # (Auto) 0.3, Basophils # (Auto) 0.1, Nucleated Red Blood Cells % (auto) 0.0, Anion Gap 9, Glomerular Filtration Rate 32.7L, Blood Urea Nitrogen 41H, Creatinine 1.64H, Sodium Level 130L, Potassium Level 4.3, Chloride Level 87L, Carbon Dioxide Level 34H, Calcium Level 10.0 05/25/18 08:50: Bedside Glucose (Misc Panel) 416H CBC/BMP Laboratory Tests 05/24/18 10:14 Red Blood Count 4.83, Mean Corpuscular Volume 74.7 L, Mean Corpuscular Hemoglob in 21.7 L, Mean Corpuscular Hemoglobin Concent 29.1 L, Red Cell Distribution Width 22.8 H, Neutrophils (%) (Auto) 56.5, Lymphocytes (%) (Auto) 26.3, Monocytes (%) (Auto) 11.2 H, Eosinophils (%) (Auto) 3.7 H, Basophils (%) (Auto) 1.3 H, Neutrophils # (Auto) 4.0, Lymphocytes # (Auto) 1.9, Monocytes # (Auto) 0.8, Eosinophils # (Auto) 0.3, Basophils # (Auto) 0.1, Calcium Level 10.5 H 05/25/18 05:22 Red Blood Count 4.71, Mean Corpuscular Volume 75.8 L, Mean Corpuscular Hemoglob in 21.9 L, Mean Corpuscular Hemoglobin Concent 28.9 L, Red Cell Distribution Width 22.7 H, Neutrophils (%) (Auto) 56.0, Lymphocytes (%) (Auto) 25.3, Monocytes (%) (Auto) 11.8 H, Eosinophils (%) (Auto) 4.1 H, Basophils (%) (Auto) 1.3 H, Neutrophils # (Auto) 4.4, Lymphocytes # (Auto) 2.0, Monocytes # (Auto) 0.9 H, Eosinophils # (Auto) 0.3, Basophils # (Auto) 0.1, Calcium Level 10.0 Microbiology Microbiology 05/18/18 Blood Culture - Final, Complete NO GROWTH AFTER 5 DAYS 05/18/18 Blood Culture - Final, Complete NO GROWTH AFTER 5 DAYS NUSRAT GUERRERO MD May 25, 2018 09:33
[2018-05-25 11:15] VITALS: BP 159/67
[2018-05-25] MEDS: MORPHINE 30 MG TAB **MSIR PO PRN ×2 (11:53→20:23)
[2018-05-25 14:00] VITALS: BP 146/74
--- NOTE | 2018-05-25 14:04 | REP ---
AP/LATERAL RIGHT KNEE, TWO VIEWS: HISTORY: Fall. There is no acute fracture or dislocation. There is moderate narrowing of the medial knee joint space and minimal narrowing of the lateral joint space. Osteophytes are present on the femur, tibia, and patella. IMPRESSION: Degenerative change as described above. Electronically Signed by Vinnie Wade MD 05/25/2018 02:11 P
[2018-05-25] MEDS: rOPINIRole 2MG TAB PO SCH ×2 (18:09→20:19)
[2018-05-25] MEDS: BETAMETHASONE VAL 0.1% OINT 15 GM TOP SCH (20:22)
[2018-05-25] MEDS ORDERED: LEVEMIR (INSULIN DETEMIR) 1 UNITS/0.01ML SC SCH (21:00)
[2018-05-25] MEDS ORDERED: PREGABALIN 75 MG CAP(LYRICA) PO SCH (21:00)
[2018-05-25 22:00] VITALS: BP 149/74
[2018-05-26] VITALS (10 sets, daily range): BP systolic 120–157; BP diastolic 63–101
[2018-05-26] MEDS: MEROPENEM INJ 1 GM in APPROPRIATE DILUENT 1 EA IV SCH ×2 (03:40→15:27)
[2018-05-26 05:59] LABS: BASO # 0.1 10^3/uL (0.0-0.2); BASO % 0.6 % (0.0-1.0); EOS # 0.2 10^3/uL (0.0-0.50); EOS % 1.7 % (0.0-3.0); HEMATOCRIT 42.5 % (36.0-47.0); HEMOGLOBIN 11.9 g/dl (12.0-15.5); LYMPH # 1.9 10^3/uL (1.5-4.5); LYMPH % 15.6 % (24.0-44.0); MEAN CORPUSCULAR HEMOGLOBIN 21.8 pg (27.0-33.0); MEAN CORPUSCULAR VOLUME 77.7 fl (80.0-96.0); MONO # 1.2 10^3/uL (0.0-0.8); MONO % 9.6 % (0.0-5.0); NEUTROPHILS # 8.6 10^3/uL (1.8-7.7); NEUTROPHILS % 71.3 % (36.0-66.0); PLATELET COUNT, AUTOMATED 351 10^3/uL (150-450); RED BLOOD COUNT 5.47 10^6/uL (4.00-5.40)
[2018-05-26 06:21] LABS: CALCIUM LEVEL 9.9 MG/DL (8.8-10.2); CREATININE FOR GFR 1.68 MG/DL (0.55-1.30); GLOMERULAR FILTRATION RATE 31.8 (>39); POTASSIUM SERUM 4.3 MEQ/L (3.5-5.1)
[2018-05-26] MEDS: SUCRALFATE 1 GM TAB PO SCH ×2 (07:30→16:35)
--- NOTE | 2018-05-26 08:57 | IPNPDOC ---
Date Seen The patient was seen on 05/26/18. Progress Note SUBJECTIVE: Pt had a fall yesterday with trauma to right knee. Xray was negative. Pt says she felt sleepy and lost her balance. Lyrica has been changed from TID to BID and lowered to 50 mg. despite increasing doses of both basal and short-acting insulin, pt's preprandial glucose remains >400mg/dL. a1c 9. no c/o abd pain, nausea or vomiting, and no signs of DKA. no fever chills. still c/o chronic low back pain and right groin pain s/p pain mgt consult: on lyrica, but pt refuses oxycodone, and is happy with iv morphine. PHYSICAL EXAM: VITAL SIGNS: As below. HEAD: Atraumatic, normocephalic. NECK: Supple. No jugular venous distention (JVD). LUNGS: Clear to auscultation. HEART: S1, S2 audible. No murmurs appreciated. ABDOMEN: Soft. Positive bowel sounds. No pedal edema. SKIN: Intact. NEUROLOGIC: Patient awake, alert, oriented times three. Labs and Radiology : Reviewed ASSESSMENT and PLAN: Patient is a 72-year-old female with a extensive past medical history of morbid obesity, COPD, MATT, Obesity hypoventilation , gout, chronic pain, hypertension, diabetes, hyperlipidemia, morbid obesity,urinary retention, chronic recurrent urinary tract infections (UTIs), chronic kidney disease (CKD) III who presents to the emergency room due to abnormal labs. Patient has dysuria and frequency and went to Dr. Art's office. Urinalysis (UA) was done and results came back of the urinalysis which was suggestive of a UTI, so the patient came to emergency room (ER) for evaluation due to the fact that she has a history of extended-spectrum beta lactamase (ESBL) in the urine. While she was in the ER, the cultures did come back as positive for ESBL, so the patient will be admitted for intravenous (IV) meropenem. Recurrent UTIs with ESBL Ecoli from culture on 05/16 just finished 3 weeks of Ertapenem at home for ESBL ecoli in March and april. on iv meropenem appreciate Dr Art's input. Neurogenic Urinary retention with incomplete voiding vs renal stone causing recurrent UTIs continue flomax avoid constipation bladder scan bid to evaluate for post void residual discussed with Dr Rivera for possibly cystoscopy as inpatient dc flomax 16french prater indwelling outpt fu 2wks Chronic kidney injury: Not significantly deviated from her baseline. continue to monitor Acute encephalopathy due to medication overuse, resulting in fall on 05/25/18 and trauma to right knee. Pt c/o feeling stuporous 05/25/18 most likely due to tid lyrica. dc'ed lyrica tid changed to lyrica bid prn morphine mdd 4tabs due to pt refusal to take oxycodone for pain due to "makes me feel loopy." Fall due to overmedication with lyrica pt had a fall despite being accompanied by an aide, with 10/10 right knee pain. still able to bear weight. cool compress, elevate right leg, and xray to r/o fracture reviewed. decrease lyrica Insulin-dependent diabetes: uncontrolled with sugars> 500 today. A1c 9 she is on a consistent carb 2 g sodium diet by mouth, but remains uncontrolled titrating her long acting and short acting insulin for better glycemic control Obstructive sleep apnea: Continue with CPAP Obesity: Complicating care Obesity hypoventilation syndrome: Complicating care Chronic hypoxic respiratory failure: She uses 2 L at her baseline intermittently at home as outlined above Asthma: As outlined above Gout: Continue Allopurinol with colchicine DVT: Status post IVC filter Hypertension She is continued on bisoprolol Hyperlipidemia continue atorvastatin Migraines and seizure disorder: The patient is continued on Keppra and Lyrica Fioricet one tablet every six hours as needed for migraine headache. Gastroesophageal reflux disease The patient is on a PPI and Carafate Vitamin D deficiency her monthly supplementation is currently on hold Chronic anemia due to chronic disease and iron deficiency Chronic diastolic congestive heart failure: Appears to be euvolemic at this time continue torsemide and spironolactone Irritable bowel syndrome with constipation Her home bowel regimen is in place mild of mag, lactulose, docusate, senna will give mag citrate and enema today. Restless leg syndrome: Continue with Requip Cervicalgia / Myofascial pain syndrome/ Migraine headache. per pain management recommendations, HAS spinal cord stimulator. MARCAINE/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 BACK THAT AT PRESENT TIME IS TURNED DOWN TO LOWEST SETTING JUST TO KEEP OPEN continue cymbalta, lyrica tid Renal stone asymptomatic History of C diff last year. right hip pain pain mgt consulted 05/23/18 refuses oxycodone "makes me loopy." some relief w morphine pain mgt recommends lyrica oxycodone. DVT prophylaxis has been ordered. disposition: dc plans tuesday to complete 3 full weeks of imipenem . VS, I&O, 24H, Fishbone Vital Signs/I&O Vital Signs Date Time Temp Pulse Resp B/P (MAP) Pulse Ox O2 Delivery O2 Flow Rate FiO2 05/25/18 22:00 96.2 91 16 149/74 (99) 94 05/23/18 08:49 1.0 I&O- Last 24 Hours up to 6 AM 05/26/18 06:00 Intake Total 2740 ml Output Total 3500 ml Balance -760 ml Laboratory Data 24H LABS Laboratory Tests 2 05/25/18 05:22: Immature Granulocyte % (Auto) 1.5, White Blood Count 7.9, Red Blood Count 4.71, Hemoglobin 10.3L, Hematocrit 35.7L, Mean Corpuscular Volume 75.8L, Mean Corpuscular Hemoglobin 21.9L, Mean Corpuscular Hemoglobin Concent 28.9L, Red Cell Distribution Width 22.7H, Platelet Count 313, Neutrophils (%) (Auto) 56.0, Lymphocytes (%) (Auto) 25.3, Monocytes (%) (Auto) 11.8H, Eosinophils (%) (Auto) 4.1H, Basophils (%) (Auto) 1.3H, Neutrophils # (Auto) 4.4, Lymphocytes # (Auto) 2.0, Monocytes # (Auto) 0.9H, Eosinophils # (Auto) 0.3, Basophils # (Auto) 0.1, Nucleated Red Blood Cells % (auto) 0.0, Anion Gap 9, Glomerular Filtration Rate 32.7L, Blood Urea Nitrogen 41H, Creatinine 1.64H, Sodium Level 130L, Potassium Level 4.3, Chloride Level 87L, Carbon Dioxide Level 34H, Calcium Level 10.0 05/25/18 08:50: Bedside Glucose (Misc Panel) 416H 05/25/18 11:44: Bedside Glucose (Misc Panel) 406H 05/25/18 16:16: Bedside Glucose (Misc Panel) 253H 05/25/18 20:23: Bedside Glucose (Misc Panel) 262H 05/26/18 03:36: Bedside Glucose (Misc Panel) 331H CBC/BMP Laboratory Tests 05/25/18 05:22 Red Blood Count 4.71, Mean Corpuscular Volume 75.8 L, Mean Corpuscular Hemoglobin 21.9 L, Mean Corpuscular Hemoglobin Concent 28.9 L, Red Cell Distribution Width 22.7 H, Neutrophils (%) (Auto) 56.0, Lymphocytes (%) (Auto) 25.3, Monocytes (%) (Auto) 11.8 H, Eosinophils (%) (Auto) 4.1 H, Basophils (%) (Auto) 1.3 H, Neutrophils # (Auto) 4.4, Lymphocytes # (Auto) 2.0, Monocytes # (Auto) 0.9 H, Eosinophils # (Auto) 0.3, Basophils # (Auto) 0.1, Calcium Level 10.0 Microbiology Microbiology 05/18/18 Blood Culture - Final, Complete NO GROWTH AFTER 5 DAYS 05/18/18 Blood Culture - Final, Complete NO GROWTH AFTER 5 DAYS NUSRAT GUERRERO MD May 26, 2018 04:44
[2018-05-26] MEDS: MIRALAX *UNIT DOSE* 17GM PACKET PO SCH (09:00)
[2018-05-26] MEDS: SENNA 8.6 MG TAB (SENOKOT) PO SCH ×2 (09:00→20:41)
[2018-05-26] MEDS: DOCUSATE SODIUM 100 MG CAP PO SCH ×2 (09:00→20:42)
[2018-05-26] MEDS ORDERED: PREGABALIN 50 MG CAP (LYRICA) PO SCH (09:00)
[2018-05-26 09:26] LABS: ABG BASE EXCESS 7.4 (-2.0-2.0); ABG HCO3 33.8 MEQ/L (22.0-26.0); ABG PARTIAL PRESSURE CO2 56.4 mmHg (35.0-45.0); ABG PARTIAL PRESSURE O2 53.3 mmHg (75.0-100.0); ABG STANDARD HCO3 30.9 MEQ/L (22.0-26.0); ABG TOTAL CO2 35.6 MEQ/L (23.0-31.0); ABG pH (ARTERIAL) 7.396 UNITS (7.350-7.450)
[2018-05-26] MEDS: LEVEMIR (INSULIN DETEMIR) 1 UNITS/0.01ML SC SCH ×2 (09:55→20:41)
[2018-05-26] MEDS: HumaLOG INSULIN (NovoLOG) PER UNIT SC SCH ×6 (09:56→18:23)
[2018-05-26] MEDS ORDERED: NALOXONE INJ 0.4 MG/1 ML VIAL (J2310) IV STA ×2 (10:11→10:28)
[2018-05-26] MEDS ORDERED: NALOXONE INJ 0.4 MG/1 ML VIAL (J2310) IV PRN (10:15)
[2018-05-26] MEDS: SODIUM CHLORIDE 0.9% INJ 10 ML SYR IV PRN ×2 (10:31→15:27)
[2018-05-26] MEDS: CALCITRIOL 0.25 MCG CAP (S0169) PO SCH (10:37)
[2018-05-26] MEDS: TAMSULOSIN 0.4 MG CAP PO SCH (10:37)
[2018-05-26] MEDS: TORSEMIDE 20 MG TAB PO SCH ×2 (10:38→16:35)
[2018-05-26] MEDS: ACETAMINOPHEN 650MG ER TAB (TYLENOL ARTHRITIS) PO PRN (10:38)
[2018-05-26] MEDS: POTASSIUM CHLORIDE 10 MEQ SR TABLET PO SCH ×2 (10:38→20:42)
[2018-05-26] MEDS: METOCLOPRAMIDE 10 MG TAB PO SCH ×3 (10:39→20:41)
[2018-05-26] MEDS: DULoxetine 30 MG CAP (CYMBALTA) PO SCH ×2 (10:39→20:41)
[2018-05-26] MEDS: BISOPROLOL FUM 2.5 MG PER 1/2TAB PO SCH (10:39)
[2018-05-26] MEDS: OMEPRAZOLE 20 MG CAP PO SCH ×2 (10:39→20:41)
[2018-05-26] MEDS: ATORVASTATIN 10 MG TAB PO SCH (10:39)
[2018-05-26] MEDS: COLCHICINE 0.6 MG TAB PO SCH (10:39)
[2018-05-26] MEDS: SPIRONOLACTONE 25 MG TAB PO SCH ×2 (10:39→16:34)
[2018-05-26] MEDS: ALLOPURINOL 300 MG TAB PO SCH (10:40)
[2018-05-26] MEDS: LACTULOSE 20 GM/30 ML SYRUP UD PO SCH ×3 (10:40→20:45)
[2018-05-26] MEDS: levETIRAcetam **XR** 500 MG TABLET PO SCH ×2 (10:44→20:42)
[2018-05-26] MEDS: LACTIC ACID 12% LOTION 225 GM BTL TOP SCH ×2 (10:46→20:43)
[2018-05-26] MEDS: TRIAMCINOLONE ACETONIDE 0.025 % 80 GM CREAM TOP SCH ×2 (10:46→20:43)
[2018-05-26 11:30] LABS: BASO # 0.1 10^3/uL (0.0-0.2); BASO % 0.5 % (0.0-1.0); EOS # 0.3 10^3/uL (0.0-0.50); HEMOGLOBIN 11.2 g/dl (12.0-15.5); LYMPH # 1.7 10^3/uL (1.5-4.5); LYMPH % 12.9 % (24.0-44.0); MEAN CORPUSCULAR HEMOGLOBIN 21.7 pg (27.0-33.0); MEAN CORPUSCULAR VOLUME 77.4 fl (80.0-96.0); MONO # 1.1 10^3/uL (0.0-0.8); MONO % 8.3 % (0.0-5.0); NEUTROPHILS # 9.8 10^3/uL (1.8-7.7); NEUTROPHILS % 75.7 % (36.0-66.0); PLATELET COUNT, AUTOMATED 338 10^3/uL (150-450); RED BLOOD COUNT 5.17 10^6/uL (4.00-5.40)
[2018-05-26] MEDS ORDERED: METOPROLOL TART 25 MG TABLET PO SCH (12:00)
[2018-05-26 12:37] LABS: CALCIUM LEVEL 9.6 MG/DL (8.8-10.2); CREATININE FOR GFR 1.7 MG/DL (0.55-1.30); GLOMERULAR FILTRATION RATE 31.4 (>39); POTASSIUM SERUM 4.4 MEQ/L (3.5-5.1)
[2018-05-26 13:41] LABS: ABG BASE EXCESS 7.6 (-2.0-2.0); ABG PARTIAL PRESSURE CO2 49.3 mmHg (35.0-45.0); ABG STANDARD HCO3 31.4 MEQ/L (22.0-26.0); ABG TOTAL CO2 34.5 MEQ/L (23.0-31.0); ABG pH (ARTERIAL) 7.443 UNITS (7.350-7.450)
[2018-05-26] MEDS: WARFARIN SOD 5 MG TAB PO SCH (16:34)
[2018-05-26] MEDS ORDERED: PILL CRUSHER/CUTTER 1 EACH XX PRN (17:00)
[2018-05-26] MEDS: METOPROLOL TART 25 MG TABLET PO SCH (18:22)
--- NOTE | 2018-05-26 18:57 | ECGEPIP ---
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 Rule out prior septal/inferior infarction Subtle ST/T-wave abnormalities Faster rate but otherwise unchanged from 05/18/18. Electronically Signed On 05-26-2018 18:56:27 EST by Niranjan Goodwin
[2018-05-26] MEDS: BETAMETHASONE VAL 0.1% OINT 15 GM TOP SCH (20:42)
[2018-05-27] MEDS: METOPROLOL TART 25 MG TABLET PO SCH ×4 (00:05→17:19)
[2018-05-27] MEDS: MEROPENEM INJ 1 GM in APPROPRIATE DILUENT 1 EA IV SCH ×2 (03:45→15:23)
[2018-05-27 06:00] VITALS: BP 125/72
[2018-05-27 06:42] LABS: ABG BASE EXCESS 7.9 (-2.0-2.0); ABG HCO3 29.5 MEQ/L (22.0-26.0); ABG O2 SATURATION 97.6 % (95.0-99.0); ABG PARTIAL PRESSURE CO2 31.3 mmHg (35.0-45.0); ABG PARTIAL PRESSURE O2 158.9 mmHg (75.0-100.0); ABG STANDARD HCO3 31.7 MEQ/L (22.0-26.0); ABG TOTAL CO2 30.5 MEQ/L (23.0-31.0); ABG pH (ARTERIAL) 7.592 UNITS (7.350-7.450)
[2018-05-27 06:57] LABS: BASO # 0.1 10^3/uL (0.0-0.2); BASO % 0.6 % (0.0-1.0); EOS # 0.4 10^3/uL (0.0-0.50); EOS % 2.2 % (0.0-3.0); HEMATOCRIT 41.4 % (36.0-47.0); HEMOGLOBIN 11.6 g/dl (12.0-15.5); LYMPH # 2.8 10^3/uL (1.5-4.5); LYMPH % 17.1 % (24.0-44.0); MEAN CORPUSCULAR VOLUME 78.6 fl (80.0-96.0); MONO # 1.6 10^3/uL (0.0-0.8); MONO % 9.8 % (0.0-5.0); NEUTROPHILS # 11.5 10^3/uL (1.8-7.7); NEUTROPHILS % 69.3 % (36.0-66.0); PLATELET COUNT, AUTOMATED 389 10^3/uL (150-450); RED BLOOD COUNT 5.27 10^6/uL (4.00-5.40); WHITE BLOOD COUNT 16.6 10^3/uL (4.0-10.0)
[2018-05-27 07:17] LABS: INR 1.04; PROTHROMBIN TIME 13.7 SECONDS (12.1-14.4)
[2018-05-27 07:18] LABS: ALBUMIN 2.9 GM/DL (3.2-5.2); ALT/SGPT 42 U/L (12-78); BILIRUBIN,DIRECT 0.2 MG/DL (0.0-0.2); BILIRUBIN,TOTAL 0.4 MG/DL (0.2-1.0); BLOOD UREA NITROGEN 46 MG/DL (7-18); CALCIUM LEVEL 9.7 MG/DL (8.8-10.2); CARBON DIOXIDE LEVEL 32 MEQ/L (21-32); CHLORIDE LEVEL 95 MEQ/L (98-107); CREATININE FOR GFR 1.67 MG/DL (0.55-1.30); GLUCOSE, FASTING 206 MG/DL (70-100); POTASSIUM SERUM 4.8 MEQ/L (3.5-5.1); SODIUM LEVEL 136 MEQ/L (136-145); TOTAL PROTEIN 7.5 GM/DL (6.4-8.2)
--- NOTE | 2018-05-27 07:20 | REPVR ---
EXAM: XR Chest, 1 View EXAM DATE/TIME: 05/27/2018 6:16 AM CLINICAL HISTORY: 72 years old, female; Signs and symptoms; Other: AMS, leukocytosis TECHNIQUE: XR of the chest, 1 view. COMPARISON: CR PORTABLE CHEST X-RAY 05/18/2018 1:51 PM FINDINGS: Tubes, catheters and devices: A right Port-A-Cath is unchanged. Lungs: Low inflation of the lungs which is decreased since the prior study. Calcified granuloma in the right mid lung is unchanged. Slightly increased left base infiltrate or atelectasis with decreased delineation of the left hemidiaphragm. Pleural space: Unremarkable. No pleural effusion. No pneumothorax. Heart/Mediastinum: Unremarkable. No cardiomegaly. Bones/joints: Unremarkable. Soft tissues: Surgical clips are noted at the GE junction. IMPRESSION: 1. Slightly increased left base infiltrate or atelectasis since 05/18/2018. 2. Otherwise stable poor inspiratory chest. Electronically signed by: Jose Hernandez On 05/27/2018 07:20:45 AM
[2018-05-27 07:24] LABS: ERYTHROCYTE SEDIMENTATION RATE 49 mm/hr (0-30)
[2018-05-27] MEDS: DOCUSATE SODIUM 100 MG CAP PO SCH ×2 (09:00→21:17)
[2018-05-27] MEDS: MIRALAX *UNIT DOSE* 17GM PACKET PO SCH (09:00)
[2018-05-27] MEDS: SENNA 8.6 MG TAB (SENOKOT) PO SCH (09:00)
[2018-05-27] MEDS: levETIRAcetam **XR** 500 MG TABLET PO SCH ×2 (09:50→21:17)
[2018-05-27] MEDS: BISOPROLOL FUM 2.5 MG PER 1/2TAB PO SCH (09:51)
[2018-05-27] MEDS: LACTULOSE 20 GM/30 ML SYRUP UD PO SCH (09:51)
[2018-05-27] MEDS: HumaLOG INSULIN (NovoLOG) PER UNIT SC SCH ×6 (09:52→17:18)
[2018-05-27] MEDS: METOCLOPRAMIDE 10 MG TAB PO SCH (09:53)
[2018-05-27] MEDS: LEVEMIR (INSULIN DETEMIR) 1 UNITS/0.01ML SC SCH ×2 (09:53→21:00)
[2018-05-27] MEDS: OMEPRAZOLE 20 MG CAP PO SCH ×2 (09:53→21:17)
[2018-05-27] MEDS: CALCITRIOL 0.25 MCG CAP (S0169) PO SCH (09:53)
[2018-05-27] MEDS: TAMSULOSIN 0.4 MG CAP PO SCH (09:54)
[2018-05-27] MEDS: POTASSIUM CHLORIDE 10 MEQ SR TABLET PO SCH ×2 (09:54→21:17)
[2018-05-27] MEDS: COLCHICINE 0.6 MG TAB PO SCH (09:54)
[2018-05-27] MEDS: ATORVASTATIN 10 MG TAB PO SCH (09:54)
[2018-05-27] MEDS: TORSEMIDE 20 MG TAB PO SCH ×2 (09:54→17:18)
[2018-05-27] MEDS: SUCRALFATE 1 GM TAB PO SCH (09:54)
[2018-05-27] MEDS: TRIAMCINOLONE ACETONIDE 0.025 % 80 GM CREAM TOP SCH ×2 (09:55→21:18)
[2018-05-27] MEDS: DULoxetine 30 MG CAP (CYMBALTA) PO SCH (09:55)
[2018-05-27] MEDS: ALLOPURINOL 300 MG TAB PO SCH (09:55)
[2018-05-27] MEDS: SPIRONOLACTONE 25 MG TAB PO SCH ×2 (09:55→17:19)
[2018-05-27] MEDS: LACTIC ACID 12% LOTION 225 GM BTL TOP SCH ×2 (09:56→21:18)
--- NOTE | 2018-05-27 10:26 | IPNPDOC ---
Date Seen The patient was seen on 05/27/18. Progress Note SUBJECTIVE: Due to altered mental status with increasing lethargy and obtundation, pt's lyrica, morphine, ropinorole have been discontinued. ABG, ammonia, and glucose were wnl. Overnight, pt had increased wbc without fever. CXR infiltrate. She remains difficult to arouse this morning, even after narcan yesterday. Due to New onset afib on 05/26/18, pt was placed on telemetry, warfarin, and metoprolol for rate control. This morning, she remains with ams, and minimally follows commands. Stat CT head to rule out CVA and transfer to PCU. PHYSICAL EXAM: VITAL SIGNS: As below. Generally: sitting >45degrees in bed. difficult to arouse, minimally follows commands. opens her eyes for a few minutes. HEAD: Atraumatic, normocephalic. PERRL 3mm pupils. NECK: Supple. No jugular venous distention (JVD). LUNGS: diminished with bibasilar crackles. HEART: S1, S2 audible. No murmurs appreciated. ABDOMEN: Soft. Positive bowel sounds. No pedal edema. SKIN: Intact. NEUROLOGIC:no facial droop. minimally arousable, lethargic. unable to assess power or sensation as pt is minimally responsive. Labs and Radiology : Reviewed ASSESSMENT and PLAN: Patient is a 72-year-old female with a extensive past me dical history of morbid obesity, COPD, MATT, Obesity hypoventilation , gout, chronic pain, hypertension, diabetes, hyperlipidemia, morbid obesity,urinary retention, chronic recurrent urinary tract infections (UTIs), chronic kidney disease (CKD) III who presents to the emergency room due to abnormal labs. Patient has dysuria and frequency and went to Dr. Art's office. Urinalysis (UA) was done and results came back of the urinalysis which was suggestive of a UTI, so the patient came to emergency room (ER) for evaluation due to the fact that she has a history of extended-spectrum beta lactamase (ESBL) in the urine. While she was in the ER, the cultures did come back as positive for ESBL, so the patient will be admitted for intravenous (IV) meropenem. New onset Atrial Fibrillation with RVR rate of 120-140 bpm on 05/26/18 started on warfarin with target inr 2-3, rate control med with metoprolol q6hrs with improvement. transfer to pcu/telemetry Acute encephalopathy initially due to medication overuse, resulting in fall on 05/25/18 and trauma to right knee. Pt c/o feeling stuporous 05/25/18 most likely due to tid lyrica. dc'ed lyrica tid, morphine, ropinorole. Currently more obtunded, and in light of new onset atrial fibrillation, stat ct head 05/27/18 to rule out acute CVA. MRI brain if positive for CVA and neurology consultation. no response to narcan on 05/25/18. abg: compensated, but with respiratory alkalosis. transfer to pcu. Abnormal EKG cycle cardiac markers, continue rate control for AFib, transfer to pcu. Recurrent UTIs with increased white count 05/27/18. with ESBL Ecoli from culture on 05/16 just finished 3 weeks of Ertapenem at home for ESBL ecoli in March and april. on iv meropenem appreciate Dr Art's input. Neurogenic Urinary retention with incomplete voiding vs renal stone causing recurrent UTIs continue flomax avoid constipation bladder scan bid to evaluate for post void residual discussed with Dr Rivera for possibly cystoscopy as inpatient dc flomax 16french prater indwelling outpt fu 2wks Chronic kidney injury: Not significantly deviated from her baseline. continue to monitor Fall due to overmedication with lyrica pt had a fall despite being accompanied by an aide, with 10/10 right knee pain. still able to bear weight. cool compress, elevate right leg, and xray to r/o fracture reviewed. decrease lyrica Insulin-dependent diabetes: uncontrolled with sugars> 500 today. A1c 9 she is on a consistent carb 2 g sodium diet by mouth, but remains uncontrolled titrating her long acting and short acting insulin for better glycemic control Obstructive sleep apnea: Continue with CPAP Obesity: Complicating care Obesity hypoventilation syndrome: Complicating care Chronic hypoxic respiratory failure: She uses 2 L at her baseline intermittently at home as outlined above Asthma: As outlined above Gout: Continue Allopurinol with colchicine DVT: Status post IVC filter Hypertension She is continued on bisoprolol Hyperlipidemia continue atorvastatin Migraines and seizure disorder: The patient is continued on Keppra and Lyrica Fioricet one tablet every six hours as needed for migraine headache. Gastroesophageal reflux disease The patient is on a PPI and Carafate Vitamin D deficiency her monthly supplementation is currently on hold Chronic anemia due to chronic disease and iron deficiency Chronic diastolic congestive heart failure: Appears to be euvolemic at this time continue torsemide and spironolactone Irritable bowel syndrome with constipation Her home bowel regimen is in place mild of mag, lactulose, docusate, senna will give mag citrate and enema today. Restless leg syndrome: stopped requip due to ams Cervicalgia / Myofascial pain syndrome/ Migraine headache. per pain management recommendations, HAS spinal cord stimulator. MARCAINE/PRIAL T PUMP TO HER BACK THAT AT PRESENT TIME IS TURNED DOWN TO LOWEST SETTING JUST TO KEEP OPEN discontinued lyrica due to ams. Renal stone asymptomatic History of C diff last year. right hip pain pain mgt consulted 05/23/18 refuses oxycodone "makes me loopy." some relief w morphine pain mgt recommends lyrica oxycodone. all meds discontinued due to ams. DVT prophylaxis on warfarin. disposition: due to new onset afib and ams r/o cva, transfer to pcu. VS, I&O, 24H, Neptalibone Vital Signs/I&O Vital Signs Date Time Temp Pulse Resp B/P (MAP) Pulse Ox O2 Delivery O2 Flow Rate FiO2 05/27/18 09:51 78 125/72 05/27/18 06:00 96.5 20 96 05/26/18 20:00 2.0 I&O- Last 24 Hours up to 6 AM 05/27/18 06:00 Intake Total 1010 ml Output Total 1850 ml Balance -840 ml Laboratory Data 24H LABS Laboratory Tests 2 05/26/18 11:11: Immature Granulocyte % (Auto) 0.6, White Blood Count 13.0H, Red Blood Count 5.17, Hemoglobin 11.2L, Hematocrit 40.0, Mean Corpuscular Volume 77.4L, Mean Corpuscular Hemoglobin 21.7L, Mean Corpuscular Hemoglobin Concent 28.0L, Red Cell Distribution Width 23.5H, Platelet Count 338, Neutrophils (%) (Auto) 75.7H, Lymphocytes (%) (Auto) 12.9L, Monocytes (%) (Auto) 8.3H, Eosinophils (%) (Auto) 2.0, Basophils (%) (Auto) 0.5, Neutrophils # (Auto) 9.8H, Lymphocytes # (Auto) 1.7, Monocytes # (Auto) 1.1H, Eosinophils # (Auto) 0.3, Basophils # (Auto) 0.1, Nucleated Red Blood Cells % (auto) 0.0, Anion Gap 8, Glomerular Filtration Rate 31.4L, Blood Urea Nitrogen 40H, Creatinine 1.70H, Sodium Level 132L, Potassium Level 4.4, Chloride Level 90L, Carbon Dioxide Level 34H, Calcium Level 9.6 05/26/18 11:21: Bedside Glucose (Misc Panel) 409H 05/26/18 13:23: Blood Gas Bicarbonate Standard 31.4H, Arterial Blood pH 7.443, Arterial Blood Partial Pressure CO2 49.3H, Arterial Blood Partial Pressure O2 75.0, Arterial Blood Total CO2 34.5H, Arterial Blood HCO3 33.0H, Arterial Blood Base Excess 7.6H, Arterial Blood Oxygen Saturation 93.0L 05/26/18 16:41: Bedside Glucose (Misc Panel) 333H 05/26/18 20:33: Bedside Glucose (Misc Panel) 288H 05/27/18 06:30: Blood Gas Bicarbonate Standard 31.7H, Arterial Blood pH 7.592H, Arterial Blood Partial Pressure CO2 31.3L, Arterial Blood Partial Pressure O2 158.9H, Arterial Blood Total CO2 30.5, Arterial Blood HCO3 29.5H, Arterial Blood Base Excess 7.9H, Arterial Blood Oxygen Saturation 97.6 05/27/18 06:43: Immature Granulocyte % (Auto) 1.0, White Blood Count 16.6H, Red Blood Count 5.27, Hemoglobin 11.6L, Hematocrit 41.4, Mean Corpuscular Volume 78.6L, Mean Corpuscular Hemoglobin 22.0L, Mean Corpuscular Hemoglobin Concent 28.0L, Red Cell Distribution Width 24.0H, Platelet Count 389, Neutrophils (%) (Auto) 69.3H, Lymphocytes (%) (Auto) 17.1L, Monocytes (%) (Auto) 9.8H, Eosinophils (%) (Auto) 2.2, Basophils (%) (Auto) 0.6, Neutrophils # (Auto) 11.5H, Lymphocytes # (Auto) 2.8, Monocytes # (Auto) 1.6H, Eosinophils # (Auto) 0.4, Basophils # (Auto) 0.1, Nucleated Red Blood Cells % (auto) 0.0, Erythrocyte Sedimentation Rate 49H, Prothrombin Time 13.7, Prothromb Time International Ratio 1.04, Anion Gap 9, Glomerular Filtration Rate 32.0L, Calcium Level 9.7, Aspartate Amino Transf (AST/SGOT) 33, Alanine Aminotransferase (ALT/SGPT) 42, Alkaline Phosphatase 131H, Total Bilirubin 0.4, Direct Bilirubin 0.2, Ammonia 25, C-Reactive Protein, Quantitative 13.40H, Total Protein 7.5, Albumin 2.9L, Albumin/Globulin Ratio 0.63L 05/27/18 08:14: Urine Color YELLOW, Urine Appearance CLEAR, Urine pH 6.0, Urine Specific Parker 1.010, Urine Protein NEGATIVE, Urine Glucose (UA) NEGATIVE, Urine Ketones NEGATIVE, Urine Blood NEGATIVE, Urine Nitrite NEGATIVE, Urine Bilirubin NEGATIVE, Urine Urobilinogen 0.2, Urine Leukocyte Esterase 3+H, Urine WBC (Auto) 86H, Urine RBC (Auto) 3, Urine Hyaline Casts (Auto) 0, Urine Bacteria (Auto) 1 +H, Urine Squamous Epithelial Cells 0, Urine Mucus (Auto) SMALL, Urine Sperm (Auto) CBC/BMP Laboratory Tests 05/26/18 11:11 Red Blood Count 5.17, Mean Corpuscular Volume 77.4 L, Mean Corpuscular Hemoglobin 21.7 L, Mean Corpuscular Hemoglobin Concent 28.0 L, Red Cell Distribution Width 23.5 H, Neutrophils (%) (Auto) 75.7 H, Lymphocytes (%) (Auto) 12.9 L, Monocytes (%) (Auto) 8.3 H, Eosinophils (%) (Auto) 2.0, Basophils (%) (Auto) 0.5, Neutrophils # (Auto) 9.8 H, Lymphocytes # (Auto) 1.7, Monocytes # (Auto) 1.1 H, Eosinophils # (Auto) 0.3, Basophils # (Auto) 0.1, Calcium Level 9.6 05/27/18 06:43 Red Blood Count 5.27, Mean Corpuscular Volume 78.6 L, Mean Corpuscular Hemoglobin 22.0 L, Mean Corpuscular Hemoglobin Concent 28.0 L, Red Cell Distribution Width 24.0 H, Neutrophils (%) (Auto) 69.3 H, Lymphocytes (%) (Auto) 17.1 L, Monocytes (%) (Auto) 9.8 H, Eosinophils (%) (Auto) 2.2, Basophils (%) (Auto) 0.6, Neutrophils # (Auto) 11.5 H, Lymphocytes # (Auto) 2.8, Monocytes # (Auto) 1.6 H, Eosinophils # (Auto) 0.4, Basophils # (Auto) 0.1 Microbiology Microbiology 05/18/18 Blood Culture - Final, Complete NO GROWTH AFTER 5 DAYS 05/18/18 Blood Culture - Final, Complete NO GROWTH AFTER 5 DAYS 05/27/18 Urine Culture, Received Pending NUSRAT GUERRERO MD May 27, 2018 10:26
[2018-05-27 10:47] LABS: CK-MB VALUE MASS < 1.0 NG/ML (<3.6); CPK CREATINE PHOSPHOKINASE 175 U/L (26-192); MB/CK RELATIVE INDEX 0.57 (< OR =4); TROPONIN I < 0.02 NG/ML (< 0.10)
[2018-05-27 11:17] LABS: CK-MB VALUE MASS < 1.0 NG/ML (<3.6); CPK CREATINE PHOSPHOKINASE 172 U/L (26-192); MB/CK RELATIVE INDEX 0.58 (< OR =4); TROPONIN I < 0.02 NG/ML (< 0.10)
--- NOTE | 2018-05-27 12:06 | REP ---
CT of the brain without IV contrast: Comparison is nine 12/22/2016. There is no hemorrhage. There is no edema, mass effect or midline shift. The cortical stripe is unremarkable. The sulci and ventricles are mildly dilated compatible with diffuse volume loss. There is mild deep white matter heterogeneity compatible with chronic microvascular ischemia, unchanged. The visualized paranasal sinuses and mastoid air cells are clear. Impression: No interval change. No hemorrhage, acute infarct or mass. Chronic mild diffuse volume loss. Findings compatible with chronic microvascular ischemic change. Electronically Signed by Sami Richter MD 05/27/2018 11:57 A
[2018-05-27] MEDS: VANCOMYCIN HCL 1,000 MG, VIAL MATE ADAPTER 1 EACH in D5W 250 ML IV SCH (12:42)
[2018-05-27 13:11] LABS: ABG BASE EXCESS 2.7 (-2.0-2.0); ABG HCO3 27.9 MEQ/L (22.0-26.0); ABG O2 SATURATION 92.7 % (95.0-99.0); ABG PARTIAL PRESSURE CO2 45.3 mmHg (35.0-45.0); ABG STANDARD HCO3 26.8 MEQ/L (22.0-26.0); ABG TOTAL CO2 29.3 MEQ/L (23.0-31.0); ABG pH (ARTERIAL) 7.407 UNITS (7.350-7.450)
[2018-05-27 14:00] VITALS: BP 118/56
--- NOTE | 2018-05-27 15:47 | ECGEPIP ---
Stationary ECG Study [facility] Test Date: 2018-05-27 Pat Name: SHIVANI PAYNE Department: Room: [place] [address] Gender: F [employer]ist: DANYELL : 1945 Requested By: NUSRAT Carbajal Order Number: [id number] Reading MD: Niranjan Goodwin Measurements Intervals [place] Rate: 84 P: -57 [place]: 196 QRS: 0 QRSD: 106 T: 50 QT: 375 QTc: 445 Interpretive Statements Sinus arrhythmia. LA conduction disturbance Low voltages with slow precordial R-wave progression and small inferior Q waves; body habitus versus pulmonary disease Rule out prior AWMI/IWMI. Rhythm/rate change from 05/26/18. Electronically Signed On 05-27-2018 15:47:05 EST by Niranjan Goodwin
--- NOTE | 2018-05-27 15:53 | ECGEPIP ---
Stationary ECG Study 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: DANYELL : 1945 Requested By: NUSRAT Carbajal Order Number: [id number] Reading MD: Niranjan Goodwin Measurements Intervals [place] Rate: 75 P: 74 [place]: 214 QRS: -3 QRSD: 101 T: 46 QT: 407 QTc: 457 Interpretive Statements Normal sinus rhythm LA conduction disturbance First degree AV block Somewhat low voltages, slow precordial R-wave progression, persistent S waves in V5 and V6, and inferior Q waves; body habitus versus pulmonary disease Subtle lateral T-wave flattening No significant change from earlier this same day Electronically Signed On 05-27-2018 15:52:38 EST by Niranjan Goodwin
[2018-05-27] MEDS: SODIUM CHLORIDE 0.9% INJ 10 ML SYR IV PRN (16:22)
[2018-05-27] MEDS: WARFARIN SOD 5 MG TAB PO SCH (17:19)
[2018-05-27 19:19] LABS: CK-MB VALUE MASS < 1.0 NG/ML (<3.6); CPK CREATINE PHOSPHOKINASE 114 U/L (26-192); MB/CK RELATIVE INDEX 0.88 (< OR =4); TROPONIN I < 0.02 NG/ML (< 0.10)
[2018-05-27] MEDS: ONDANSETRON 4 MG TAB (S0181) PO PRN (21:17)
[2018-05-27] MEDS: BETAMETHASONE VAL 0.1% OINT 15 GM TOP SCH (21:19)
[2018-05-27] MEDS: ACETAMINOPHEN 650MG ER TAB (TYLENOL ARTHRITIS) PO PRN (21:59)
[2018-05-27 22:00] VITALS: BP 113/52
[2018-05-28] MEDS: METOPROLOL TART 25 MG TABLET PO SCH ×2 (00:23→06:17)
[2018-05-28] MEDS: VANCOMYCIN HCL 1,000 MG, VIAL MATE ADAPTER 1 EACH in D5W 250 ML IV SCH ×2 (00:24→13:37)
[2018-05-28 00:49] LABS: CK-MB VALUE MASS < 1.0 NG/ML (<3.6); CPK CREATINE PHOSPHOKINASE 88 U/L (26-192); MB/CK RELATIVE INDEX 1.14 (< OR =4); TROPONIN I < 0.02 NG/ML (< 0.10)
[2018-05-28] MEDS: MEROPENEM INJ 1 GM in APPROPRIATE DILUENT 1 EA IV SCH ×2 (02:23→16:21)
[2018-05-28] MEDS: SODIUM CHLORIDE 0.9% INJ 10 ML SYR IV PRN ×2 (03:16→18:12)
[2018-05-28 05:57] LABS: BASO # 0.1 10^3/uL (0.0-0.2); BASO % 0.6 % (0.0-1.0); EOS # 0.3 10^3/uL (0.0-0.50); EOS % 2.3 % (0.0-3.0); HEMATOCRIT 36.1 % (36.0-47.0); HEMOGLOBIN 10.2 g/dl (12.0-15.5); LYMPH # 2.3 10^3/uL (1.5-4.5); MEAN CORPUSCULAR HEMOGLOBIN 21.9 pg (27.0-33.0); MEAN CORPUSCULAR HGB CONC 28.3 g/dl (32.0-36.5); MEAN CORPUSCULAR VOLUME 77.5 fl (80.0-96.0); MONO # 1.4 10^3/uL (0.0-0.8); MONO % 10.2 % (0.0-5.0); NEUTROPHILS # 9.3 10^3/uL (1.8-7.7); NEUTROPHILS % 68.8 % (36.0-66.0); PLATELET COUNT, AUTOMATED 268 10^3/uL (150-450); RED BLOOD COUNT 4.66 10^6/uL (4.00-5.40); WHITE BLOOD COUNT 13.5 10^3/uL (4.0-10.0)
[2018-05-28 06:00] VITALS: BP 111/56
[2018-05-28 06:10] LABS: INR 1.04; PROTHROMBIN TIME 13.7 SECONDS (12.1-14.4)
[2018-05-28 06:17] LABS: CALCIUM LEVEL 8.9 MG/DL (8.8-10.2); CREATININE FOR GFR 1.72 MG/DL (0.55-1.30); GLOMERULAR FILTRATION RATE 30.9 (>39); POTASSIUM SERUM 4.6 MEQ/L (3.5-5.1)
[2018-05-28] MEDS: ONDANSETRON 4 MG TAB (S0181) PO PRN ×2 (06:17→20:53)
--- NOTE | 2018-05-28 08:44 | IPNPDOC ---
Date Seen The patient was seen on 05/28/18. Progress Note SUBJECTIVE: Due to altered mental status with increasing lethargy and obtundation, pt's lyrica, morphine, ropinorole have been discontinued. ABG, ammonia, and glucose were wnl. pt had increased wbc without fever. CXR left base infiltrate, and was started on vancomycin for gram positive coverage in light of sepsis due to health care associated pneumonia with increased white count and hypothermia tmax 96. She was difficult to arouse even after narcan on 05/26/18. Due to New onset afib on 05/26/18, pt was placed on telemetry, warfarin, and metoprolol for rate control. Stat CT head to rule out CVA was negative, and pt was at baseline mentation per rn by 05/27/18 afternoon. Pt now requests PAIN MEDICATIONS to be resumed. After an extensive discussion about her 3 DAYS OF OBTUNDATION, RESPIRATORY ACIDOSIS, she agrees to LOWER doses of pain meds. She complains of "pain everywhere" worse in the abdomen without nausea, vomiting. no diarrhea. cough with scant thick sputum without chills. PHYSICAL EXAM: VITAL SIGNS: As below. Generally: sitting >45degrees in bed.AAO x 3 with no respiratory distress or use of respiratory accessory muscles. pt is appropriate. no facial asymmetry. speech is fluent wihtout delay. no expressive or receptive aphasia. HEAD: Atraumatic, normocephalic. PERRL 3mm pupils. NECK: Supple. No jugular venous distention (JVD). LUNGS: diminished with left basilar crackles HEART: S1, S2 audible. No murmurs appreciated. ABDOMEN: Soft. Positive bowel sounds. Prater to gravity. stage 1 sacral decubitus with foam dressing. No pedal edema. SKIN: Intact. Labs and Radiology : Reviewed ASSESSMENT and PLAN: Patient is a 72-year-old female with a extensive past medical history of morbid obesity, COPD, MATT, Obesity hypoventilation , gout, chronic pain, hypertension, diabetes, hyperlipidemia, morbid obesity,urinary retention, chronic recurrent urinary tract infections (UTIs), chronic kidney disease (CKD) III who presents to the emergency room due to abnormal labs. Patient has dysuria and frequency and went to Dr. Art's office. Urinalysis (UA) was done and results came back of the urinalysis which was suggestive of a UTI, so the patient came to emergency room (ER) for evaluation due to the fact that she has a history of extended-spectrum beta lactamase (ESBL) in the urine. While she was in the ER, the cultures did come back as positive for ESBL, so the patient will be admitted for intravenous (IV) meropenem. Sepsis secondary to health care associated pneumonia with hypothermia, tachycardia wih new onset atrial fibrillation w rapid ventricular response 120- 130bpm, leukocytosis 16. She has been given gram positive coverage with vanco with pharmd consult for renal dosing. continue gram negative coverage with imipenem. awaiting mrsa screen, sputum cx and respiratory panel. cxr; left basilar infiltrate. Afebrile with no chills, and scant sputum. Acute encephalopathy due to polypharmacy with lyrica, iv morphine, po morphine, resulting in transient acute respiratory acidosis, followed by acute respiratory alkalosis, which have all resolved DDX: breakthrough seizure, polypharmacy/medication-induced, cva ruled out dc unnecessary sedatives, hypnotics, pain meds. check prolactin level, EEG, check CT head. abg Respiratory alkalosis due to sepsis, monitor clinically, and address underlying issues. New onset Atrial Fibrillation with RVR rate of 120-140 bpm on 05/26/18 started on warfarin with target inr 2-3, rate control med with metoprolol q6hrs with improvement. transfer to pcu/telemetry Acute encephalopathy initially due to medication overuse, resulting in fall on 05/25/18 and trauma to right knee. Pt c/o feeling stuporous 05/25/18 most likely due to tid lyrica. dc'ed lyrica tid, morphine, ropinorole. Currently more obtunded, and in light of new onset atrial fibrillation, stat ct head 05/27/18 to rule out acute CVA. MRI brain if positive for CVA and neurology consultation. no response to narcan on 05/25/18. abg: compensated, but with respiratory alkalosis. transfer to pcu. Abnormal EKG cycle cardiac markers, continue rate control for AFib, transfer to pcu. Recurrent UTIs with increased white count 05/27/18. with ESBL Ecoli from culture on 05/16 just finished 3 weeks of Ertapenem at home for ESBL ecoli in March and april. on iv meropenem appreciate Dr Art's input. Neurogenic Urinary retention with incomplete voiding vs renal stone causing recurrent UTIs continue flomax avoid constipation bladder scan bid to evaluate for post void residual discussed with Dr Rivera for possibly cystoscopy as inpatient dc flomax 16french prater indwelling outpt fu 2wks Chronic kidney injury: Not significantly deviated from her baseline. continue to monitor Fall due to overmedication with lyrica pt had a fall despite being accompanied by an aide, with 10/10 right knee pain. still able to bear weight. cool compress, elevate right leg, and xray to r/o fracture reviewed. decrease lyrica Insulin-dependent diabetes: uncontrolled with sugars> 500 today. A1c 9 she is on a consistent carb 2 g sodium diet by mouth, but remains uncontrolled titrating her long acting and short acting insulin for better glycemic control Obstructive sleep apnea: Continue with CPAP Obesity: Complicating care Obesity hypoventilation syndrome: Complicating care Chronic hypoxic respiratory failure: She uses 2 L at her baseline intermittently at home as outlined above Asthma: As outlined above Gout: Continue Allopurinol with colchicine DVT: Status post IVC filter Hypertension She is continued on bisoprolol Hyperlipidemia continue atorvastatin Migraines and seizure disorder: The patient is continued on Keppra and Lyrica Fioricet one tablet every six hours as needed for migraine headache. Gastroesophageal reflux disease The patient is on a PPI and Carafate Vitamin D deficiency her monthly supplementation is currently on hold Chronic anemia due to chronic disease and iron deficiency Chronic diastolic congestive heart failure: Appears to be euvolemic at this time continue torsemide and spironolactone Irritable bowel syndrome with constipation Her home bowel regimen is in place mild of mag, lactulose, docusate, senna will give mag citrate and enema today. Restless leg syndrome: stopped requip due to ams Cervicalgia / Myofascial pain syndrome/ Migraine headache. per pain management recommendations, HAS spinal cord stimulator. MARCAINE/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 BACK THAT AT PRESENT TIME IS TURNED DOWN TO LOWEST SETTING JUST TO KEEP OPEN discontinued lyrica due to ams. Renal stone asymptomatic History of C diff last year. right hip pain pain mgt consulted 05/23/18 refuses oxycodone "makes me loopy." some relief w morphine pain mgt recommends lyrica oxycodone. all meds discontinued due to ams 05/27/18. pt requests resumption of pain meds, but at lower doses DVT prophylaxis on warfarin. disposition: pain management consult on tuesday to adjust pain meds to prevent polypharmacy. dc tu if pain is controlled and pt's mentation remains at baseline. VS, I&O, 24H, Fishbone Vital Signs/I&O Vital Signs Date Time Temp Pulse Resp B/P (MAP) Pulse Ox O2 Delivery O2 Flow Rate FiO2 05/28/18 06:17 72 111/56 05/28/18 06:00 98.0 18 96 05/27/18 08:00 0.0 I&O- Last 24 Hours up to 6 AM 05/28/18 06:00 Intake Total 3700 ml Output Total 1950 ml Balance 1750 ml Laboratory Data 24H LABS Laboratory Tests 2 05/27/18 10:41: Total Creatine Kinase 172, Creatine Kinase MB < 1.0, Creatine Kinase MB Relative Index 0.58, Troponin I < 0.02 05/27/18 12:04: Bedside Glucose (Misc Panel) 269H 05/27/18 12:51: 05/27/18 13:00: Blood Gas Bicarbonate Standard 26.8H, Arterial Blood pH 7.407, Arterial Blood Partial Pressure CO2 45.3H, Arterial Blood Partial Pressure O2 78.0, Arterial Blood Total CO2 29.3, Arterial Blood HCO3 27.9H, Arterial Blood Base Excess 2.7H, Arterial Blood Oxygen Saturation 92.7L 05/27/18 17:06: Bedside Glucose (Misc Panel) 240H 05/27/18 18:35: Total Creatine Kinase 114, Creatine Kinase MB < 1.0, Creatine Kinase MB Relative Index 0.88, Troponin I < 0.02 05/27/18 20:31: Bedside Glucose (Misc Panel) 166H 05/28/18 00:06: Total Creatine Kinase 88, Creatine Kinase MB < 1.0, Creatine Kinase MB Relative Index 1.14, Troponin I < 0.02 05/28/18 05:27: Immature Granulocyte % (Auto) 1.1, White Blood Count 13.5H, Red Blood Count 4.66, Hemoglobin 10.2L, Hematocrit 36.1, Mean Corpuscular Volume 77.5L, Mean Corpuscular Hemoglobin 21.9L, Mean Corpuscular Hemoglobin Concent 28.3L, Red Cell Distribution Width 23.4H, Platelet Count 268#, Neutrophils (%) (Auto) 68.8H, Lymphocytes (%) (Auto) 17.0L, Monocytes (%) (Auto) 10.2H, Eosinophils (%) (Auto) 2.3, Basophils (%) (Auto) 0.6, Neutrophils # (Auto) 9.3H, Lymphocytes # (Auto) 2.3, Monocytes # (Auto) 1.4H, Eosinophils # (Auto) 0.3, Basophils # (Auto) 0.1, Nucleated Red Blood Cells % (auto) 0.0, Prothrombin Time 13.7, Prothromb Time International Ratio 1.04, Anion Gap 8, Glomerular Filtration Rate 30.9L, Blood Urea Nitrogen 54H, Creatinine 1.72H, Sodium Level 133L, Potassium Level 4.6, Chloride Level 93L, Carbon Dioxide Level 32, Calcium Level 8.9 CBC/BMP Laboratory Tests 05/28/18 05:27 Red Blood Count 4.66, Mean Corpuscular Volume 77.5 L, Mean Corpuscular Hemoglobin 21.9 L, Mean Corpuscular Hemoglobin Concent 28.3 L, Red Cell Distribution Width 23.4 H, Neutrophils (%) (Auto) 68.8 H, Lymphocytes (%) (Auto) 17.0 L, Monocytes (%) (Auto) 10.2 H, Eosinophils (%) (Auto) 2.3, Basophils (%) ( Auto) 0.6, Neutrophils # (Auto) 9.3 H, Lymphocytes # (Auto) 2.3, Monocytes # (Auto) 1.4 H, Eosinophils # (Auto) 0.3, Basophils # (Auto) 0.1, Calcium Level 8.9 Microbiology Microbiology 05/27/18 Blood Culture, Received Pending 05/27/18 Blood Culture, Received Pending 05/18/18 Blood Culture - Final, Complete NO GROWTH AFTER 5 DAYS 05/18/18 Blood Culture - Final, Complete NO GROWTH AFTER 5 DAYS 05/27/18 Urine Culture, Received Pending NUSRAT GUERRERO MD May 28, 2018 08:17
[2018-05-28] MEDS: levETIRAcetam **XR** 500 MG TABLET PO SCH ×2 (09:08→20:44)
[2018-05-28] MEDS: CALCITRIOL 0.25 MCG CAP (S0169) PO SCH (09:08)
[2018-05-28] MEDS: COLCHICINE 0.6 MG TAB PO SCH (09:08)
[2018-05-28] MEDS: TORSEMIDE 20 MG TAB PO SCH ×2 (09:08→18:11)
[2018-05-28] MEDS: DOCUSATE SODIUM 100 MG CAP PO SCH ×2 (09:09→20:45)
[2018-05-28] MEDS: ATORVASTATIN 10 MG TAB PO SCH (09:09)
[2018-05-28] MEDS: TAMSULOSIN 0.4 MG CAP PO SCH (09:09)
[2018-05-28] MEDS: POTASSIUM CHLORIDE 10 MEQ SR TABLET PO SCH ×2 (09:09→20:44)
[2018-05-28] MEDS: OMEPRAZOLE 20 MG CAP PO SCH ×2 (09:09→20:45)
[2018-05-28] MEDS: SPIRONOLACTONE 25 MG TAB PO SCH ×2 (09:09→18:12)
[2018-05-28] MEDS: ALLOPURINOL 300 MG TAB PO SCH (09:09)
[2018-05-28] MEDS: HumaLOG INSULIN (NovoLOG) PER UNIT SC SCH ×3 (09:10→18:12)
[2018-05-28] MEDS: LEVEMIR (INSULIN DETEMIR) 1 UNITS/0.01ML SC SCH ×2 (09:10→20:45)
[2018-05-28] MEDS: LACTIC ACID 12% LOTION 225 GM BTL TOP SCH ×2 (09:11→20:46)
[2018-05-28] MEDS: MIRALAX *UNIT DOSE* 17GM PACKET PO SCH (09:11)
[2018-05-28] MEDS: BETAMETHASONE VAL 0.1% OINT 15 GM TOP SCH ×2 (09:12→20:46)
[2018-05-28] MEDS: TRIAMCINOLONE ACETONIDE 0.025 % 80 GM CREAM TOP SCH ×2 (09:13→20:46)
[2018-05-28] MEDS: ATENOLOL 50 MG TAB PO SCH ×2 (13:40→18:50)
[2018-05-28 14:00] VITALS: BP 123/60
--- NOTE | 2018-05-28 14:04 | PHACANCOPD ---
PHARMACY VANCOMYCIN DOSING Pt Demographics Demographics Patient Age:72 , Weight:103.400 , Gender: female Adjusted Body Weight Date: 05/28/18, Adjusted Body Weight: Kg Events Past 24 Hours Events Past 24 Hours: NO: Dialysis, Diuretic Therapy, Change in CrCl, Fever, Elevation in WBC, Pending Diagnostics, Pending Procedures, Other Vancomycin Vancomycin indication: sepsis Vancomycin Target Ranges: 10-20 mcg/ml Vancomycin Load Y/N: No Load Dose Date Time Vancomycin Load Dose: Date: Time: Vancomycin Dose Date: 05/27/18. Current Vancomycin Dose: [1g IV q12h @13] Intermittent Dosing?: No Labs Labs Item Value Date Time White Blood Count 13.0 10^3/uL H 05/26/18 1111 White Blood Count 16.6 10^3/uL H 05/27/18 0643 White Blood Count 13.5 10^3/uL H 05/28/18 0527 Vancomycin Level Trough 15.8 UG/ML 05/28/18 1225 Creatinine 1.72 MG/DL H 05/28/18 0527 Creatinine 1.70 MG/DL H 05/26/18 1111 Creatinine 1.67 MG/DL H 05/27/18 0643 Micro Microbiology 05/27/18 Blood Culture - Preliminary, Resulted No growth after 24 hours . All specim... 05/27/18 Blood Culture - Preliminary, Resulted No growth after 24 hours . All specim... 05/18/18 Blood Culture - Final, Complete NO GROWTH AFTER 5 DAYS 05/18/18 Blood Culture - Final, Complete NO GROWTH AFTER 5 DAYS 05/28/18 MRSA Screen, Resulted Pending 05/28/18 Respiratory Virus Panel (PCR) ([facility]) - Final, Resulted 05/27/18 Urine Culture, Received Pending Creatinine Clearance Date:05/28/18. Creatinine Clearance: [~35 ml/min using adjusted BW]. Pending Labs Vanco trough scheduled 05/30 @12:00 Assessment and Plan Maintaining Current Dose?: Yes Reason for dose change: No Dose Change Pharmacist Note Pharmacist Note Date: 05/28/18. Pharmacist note: pt is currently on day #2 of vancomycin IV 1g q12h, and day #9 of meropenem IV. She has been on vancomycin at our facility in the past and I have adjusted her dosing based on prior consults. SCr is about at her baseline. Vanco trough drawn ~30 min before the 3rd dose was 15.8 mcg/ml. I will repeat a trough in 2 days assuming her renal function does not decline. Blood, urine and MRSA/viral cultures are pending. We will continue to monitor and make adjustments as necessary. Christophe Peraza Pharm.D. May 28, 2018 14:04
[2018-05-28] MEDS: WARFARIN SOD 5 MG TAB PO SCH (18:11)
[2018-05-28] MEDS: ACETAMINOPHEN 650MG ER TAB (TYLENOL ARTHRITIS) PO PRN (20:53)
[2018-05-28 22:00] VITALS: BP 151/69
[2018-05-29] MEDS: VANCOMYCIN HCL 1,000 MG, VIAL MATE ADAPTER 1 EACH in D5W 250 ML IV SCH ×2 (01:36→13:20)
[2018-05-29] MEDS: MEROPENEM INJ 1 GM in APPROPRIATE DILUENT 1 EA IV SCH ×2 (03:04→15:09)
[2018-05-29] MEDS: SODIUM CHLORIDE 0.9% INJ 10 ML SYR IV PRN (04:38)
[2018-05-29 05:55] LABS: BASO # 0.1 10^3/uL (0.0-0.2); BASO % 0.8 % (0.0-1.0); EOS # 0.3 10^3/uL (0.0-0.50); HEMATOCRIT 36.6 % (36.0-47.0); HEMOGLOBIN 10.4 g/dl (12.0-15.5); LYMPH # 2.3 10^3/uL (1.5-4.5); LYMPH % 21.6 % (24.0-44.0); MEAN CORPUSCULAR HGB CONC 28.4 g/dl (32.0-36.5); MEAN CORPUSCULAR VOLUME 77.5 fl (80.0-96.0); MONO # 1.1 10^3/uL (0.0-0.8); MONO % 10.8 % (0.0-5.0); NEUTROPHILS # 6.6 10^3/uL (1.8-7.7); PLATELET COUNT, AUTOMATED 259 10^3/uL (150-450); RED BLOOD COUNT 4.72 10^6/uL (4.00-5.40); WHITE BLOOD COUNT 10.4 10^3/uL (4.0-10.0)
[2018-05-29 06:00] VITALS: BP 134/71
[2018-05-29 06:04] LABS: CALCIUM LEVEL 8.7 MG/DL (8.8-10.2); CREATININE FOR GFR 1.68 MG/DL (0.55-1.30); GLOMERULAR FILTRATION RATE 31.8 (>39); POTASSIUM SERUM 4.1 MEQ/L (3.5-5.1)
[2018-05-29 06:06] LABS: INR 1.24; PROTHROMBIN TIME 15.8 SECONDS (12.1-14.4)
[2018-05-29] MEDS: LEVEMIR (INSULIN DETEMIR) 1 UNITS/0.01ML SC SCH ×2 (09:21→22:47)
[2018-05-29] MEDS: HumaLOG INSULIN (NovoLOG) PER UNIT SC SCH ×3 (09:22→17:39)
[2018-05-29] MEDS: MIRALAX *UNIT DOSE* 17GM PACKET PO SCH (09:22)
[2018-05-29] MEDS: levETIRAcetam **XR** 500 MG TABLET PO SCH ×2 (09:22→22:46)
[2018-05-29] MEDS: DOCUSATE SODIUM 100 MG CAP PO SCH ×2 (09:23→22:45)
[2018-05-29] MEDS: TORSEMIDE 20 MG TAB PO SCH ×2 (09:23→17:38)
[2018-05-29] MEDS: OMEPRAZOLE 20 MG CAP PO SCH ×2 (09:23→22:46)
[2018-05-29] MEDS: CALCITRIOL 0.25 MCG CAP (S0169) PO SCH (09:23)
[2018-05-29] MEDS: ATORVASTATIN 10 MG TAB PO SCH (09:23)
[2018-05-29] MEDS: COLCHICINE 0.6 MG TAB PO SCH (09:24)
[2018-05-29] MEDS: TAMSULOSIN 0.4 MG CAP PO SCH (09:24)
[2018-05-29] MEDS: ACETAMINOPHEN 650MG ER TAB (TYLENOL ARTHRITIS) PO PRN ×2 (09:24→22:48)
[2018-05-29] MEDS: SPIRONOLACTONE 25 MG TAB PO SCH ×2 (09:25→17:38)
[2018-05-29] MEDS: ATENOLOL 50 MG TAB PO SCH ×2 (09:25→22:47)
[2018-05-29] MEDS: ALLOPURINOL 300 MG TAB PO SCH (09:25)
[2018-05-29] MEDS: POTASSIUM CHLORIDE 10 MEQ SR TABLET PO SCH ×2 (09:29→22:46)
[2018-05-29] MEDS: LACTIC ACID 12% LOTION 225 GM BTL TOP SCH ×2 (09:33→22:54)
[2018-05-29] MEDS: TRIAMCINOLONE ACETONIDE 0.025 % 80 GM CREAM TOP SCH ×2 (09:34→22:53)
[2018-05-29 11:45] LABS: PROLACTIN 32.5 NG/ML
[2018-05-29 14:00] VITALS: BP 138/65
--- NOTE | 2018-05-29 16:55 | CR ---
DATE OF CONSULTATION: 05/29/2018 HISTORY OF PRESENT ILLNESS: Maricarmen is a 72-year-old female, well known to the pain clinic, who we were asked to see due to uncontrolled pain and inability to tolerate pain medication. Apparently she had a couple of episodes of falling in the past 5 days. They believe that it may be related to Lyrica and morphine. She has multiple comorbidities, all of which could have contributed. We have tried to use different pain medications with Maricarmen over the past few years. Unfortunately, we are not able to get an authorization through her insurance company to try some newer medications, and it would require her to pay out of pocket. She is not willing to pay out of pocket. I am not quite sure what we can offer. She has complaints with the generic narcotic pain medications, i.e. oxycodone and morphine. Hydrocodone has been a problem in the past. She is very reluctant to take any pain medication. Despite this, she is complaining of pain and wanting something to treat the pain. Currently taking Tylenol. States her pain level is a 10 over 10, although she seems comfortable when I am talking with her today at the bedside. Chief area of pain is neck and right groin and hip. She does come in for trigger point injections at our clinic on occasion, but unfortunately, she has had steroid medicine that has caused her blood sugars to be very high postprocedure and therefore, we are reluctant to use steroid medication for her trigger point injections and they are less effective. We still are considering doing those as an outpatient for her. Unfortunately, Dr. Gabriel is not available to do any inpatient procedures at this point. Today we talked about trying Nucynta 50 mg every 6 hours for severe pain episodes. I did advise her that there could be an [id number] expense if this is helpful without side effects and that she would have to consider purchasing a small amount of this monthly. As I said before, she is not taking narcotic pain medications on a regular daily three to four time basis and probably could afford a small amount for severe pain episodes. She does have to consider this and unfortunately, there is nothing that we can do to help in this process that we have not already tried at the clinic. There would be an [id number] expense for her even with a prior authorization as we have done many times at the pain center for her. PHYSICAL EXAM: Alert, oriented times three. Cardiac: S1, S2, normal rate and rhythm. Respiratory: Lung sounds are clear. Diminished in bases. Vital signs: Temperature 98.7, pulse 84, respiratory rate 20, blood pressure 134/71, oxygen saturation is 98%. ASSESSMENT: Chronic neck and low back pain. PLAN: I would recommend Nucynta trial here in the hospital 50 mg every 6 hours as needed for severe pain episodes. Please do not hesitate to contact us if there are problems with this regimen. She should schedule a followup at the pain center upon discharge from the hospital.
--- NOTE | 2018-05-29 17:14 | EEG ---
DATE OF PROCEDURE: 05/29/2018 REFERRING PHYSICIAN: Dr. Paula Story DIAGNOSIS: Rule out seizures. EEG NUMBER: [id number] HISTORY: The patient is a 72-year-old woman who was admitted at [facility] due to altered mental status, abnormal labs, lethargy and obtundation. The patient's Lyrica, morphine and ropinirole were discontinued. This EEG was done to rule out epileptic potential. She is currently taking meropenem, vancomycin, Keppra, Lipitor, bisoprolol, Coumadin, spironolactone. TECHNICAL DESCRIPTION: This digital EEG was recorded by 21 scalp, ear, and two EKG electrodes and was reviewed in bipolar and referential montages following reformatting in 10-20 international electrode placement system. INTERPRETATION: The patient was noted to be in awake and drowsy states during this EEG. Resting awake background rhythm consisted of 5-6 Hz theta activity measuring 15-40 microvolts in amplitude, which was symmetric bilaterally. Stage I and II sleep were reviewed and were symmetric bilaterally. Hyperventilation could not be performed. Photic stimulation remained unremarkable. EKG revealed normal sinus rhythm. No focal, lateralizing or epileptiform abnormalities were seen. No relevant clinical activity was noted. CONCLUSION: This EEG in awake, drowsy states, stage I and II sleep is abnormal due to presence of generalized slowing and disorganization of background consistent with nonspecific diffuse cerebral dysfunction such as seen in dementia and encephalopathy. No epileptiform abnormalities were seen. Clinical correlation is recommended.
[2018-05-29] MEDS: TAPENTADOL 50 MG TABLET (NUCYNTA) PO PRN (17:37)
[2018-05-29] MEDS: WARFARIN SOD 5 MG TAB PO SCH (17:37)
[2018-05-29] MEDS: ONDANSETRON 4 MG TAB (S0181) PO PRN ×2 (18:30→22:53)
[2018-05-29 22:00] VITALS: BP 130/62
[2018-05-29] MEDS: BETAMETHASONE VAL 0.1% OINT 15 GM TOP SCH (22:54)
[2018-05-30] MEDS: TAPENTADOL 50 MG TABLET (NUCYNTA) PO PRN ×3 (00:14→18:21)
[2018-05-30] MEDS: SODIUM CHLORIDE 0.9% INJ 10 ML SYR IV PRN ×2 (02:17→03:17)
[2018-05-30] MEDS: MEROPENEM INJ 1 GM in APPROPRIATE DILUENT 1 EA IV SCH ×2 (02:17→17:47)
[2018-05-30 05:48] LABS: BASO # 0.1 10^3/uL (0.0-0.2); BASO % 0.9 % (0.0-1.0); EOS # 0.3 10^3/uL (0.0-0.50); EOS % 3.1 % (0.0-3.0); HEMATOCRIT 35.2 % (36.0-47.0); HEMOGLOBIN 10.1 g/dl (12.0-15.5); LYMPH # 3.1 10^3/uL (1.5-4.5); LYMPH % 30.1 % (24.0-44.0); MEAN CORPUSCULAR HEMOGLOBIN 22.1 pg (27.0-33.0); MEAN CORPUSCULAR HGB CONC 28.7 g/dl (32.0-36.5); MEAN CORPUSCULAR VOLUME 76.9 fl (80.0-96.0); MONO # 1.2 10^3/uL (0.0-0.8); MONO % 11.6 % (0.0-5.0); NEUTROPHILS # 5.5 10^3/uL (1.8-7.7); NEUTROPHILS % 53.5 % (36.0-66.0); PLATELET COUNT, AUTOMATED 253 10^3/uL (150-450); RED BLOOD COUNT 4.58 10^6/uL (4.00-5.40); WHITE BLOOD COUNT 10.2 10^3/uL (4.0-10.0)
[2018-05-30 06:00] VITALS: BP 108/55
[2018-05-30 06:03] LABS: INR 1.39; PROTHROMBIN TIME 17.3 SECONDS (12.1-14.4)
[2018-05-30 06:13] LABS: C REACTIVE PROTEIN QUANTITATIV 4.62 MG/DL (0.00-0.30); CALCIUM LEVEL 8.6 MG/DL (8.8-10.2); CREATININE FOR GFR 1.46 MG/DL (0.55-1.30); GLOMERULAR FILTRATION RATE 37.4 (>39); POTASSIUM SERUM 4.2 MEQ/L (3.5-5.1)
[2018-05-30] MEDS: LEVEMIR (INSULIN DETEMIR) 1 UNITS/0.01ML SC SCH ×2 (07:18→22:02)
[2018-05-30] MEDS: HumaLOG INSULIN (NovoLOG) PER UNIT SC SCH ×3 (07:18→17:48)
[2018-05-30] MEDS: TORSEMIDE 20 MG TAB PO SCH ×3 (09:00→18:19)
[2018-05-30] MEDS: ATENOLOL 50 MG TAB PO SCH ×2 (09:00→21:40)
[2018-05-30] MEDS: SPIRONOLACTONE 25 MG TAB PO SCH ×3 (09:00→18:20)
[2018-05-30] MEDS: DOCUSATE SODIUM 100 MG CAP PO SCH ×2 (09:42→21:39)
[2018-05-30] MEDS: levETIRAcetam **XR** 500 MG TABLET PO SCH ×2 (09:42→21:39)
[2018-05-30] MEDS: COLCHICINE 0.6 MG TAB PO SCH (09:42)
[2018-05-30] MEDS: MIRALAX *UNIT DOSE* 17GM PACKET PO SCH (09:42)
[2018-05-30] MEDS: POTASSIUM CHLORIDE 10 MEQ SR TABLET PO SCH ×2 (09:42→21:39)
[2018-05-30] MEDS: OMEPRAZOLE 20 MG CAP PO SCH ×2 (09:42→21:39)
[2018-05-30] MEDS: ATORVASTATIN 10 MG TAB PO SCH (09:43)
[2018-05-30] MEDS: TAMSULOSIN 0.4 MG CAP PO SCH (09:43)
[2018-05-30] MEDS: CALCITRIOL 0.25 MCG CAP (S0169) PO SCH (09:43)
[2018-05-30] MEDS: ALLOPURINOL 300 MG TAB PO SCH (09:43)
[2018-05-30] MEDS: FLUCONAZOLE 100 MG TAB PO SCH (09:43)
[2018-05-30 09:48] VITALS: BP 109/55
[2018-05-30] MEDS: TRIAMCINOLONE ACETONIDE 0.025 % 80 GM CREAM TOP SCH ×2 (09:50→21:41)
[2018-05-30] MEDS: LACTIC ACID 12% LOTION 225 GM BTL TOP SCH ×2 (09:50→21:41)
--- NOTE | 2018-05-30 11:32 | IPN ---
DATE OF SERVICE: 05/29/2018 Maricarmen seems to be doing better. She had a couple days of confusion and had a fall. Her pain medications have been switched. She has remained afebrile. She was seen in consultation with Dr. Rivera who recommended 16-Occitan chronic Al catheter for urinary retention at the cause of her recurrent urinary tract infection. She has been afebrile since admission. She is currently on day #11 of IV antibiotics. No nausea, vomiting or diarrhea. Minimal dysuria. No vaginal discharge or itching. LABORATORY DATA: White count 10.4, hemoglobin 10.4, hematocrit 36.6, platelets 259, 63% neutrophils, 21% lymphocytes, 10% monocytes. ESR 49. Sodium 133, potassium 4.1, chloride 95, bicarb 33, BUN 47, creatinine 1.68, glucose 221, calcium 8.7. Blood cultures from 05/18 two sets were no growth. 05/27 repeat blood cultures done due to increased white count and confusion were negative. Respiratory panel was negative. Methicillin-resistant staphylococcus aureus (MRSA) screen was negative. MEDICATIONS: Vancomycin was given from 05/27 to 05/29. This has been discontinued. Meropenem 1 gram IV every 12 hours started on 05/19 currently day #11. IMPRESSION: 1. Recurrent urinary tract infection with ESBL E-coli on IV meropenem doing much better. The patient will remain with chronic Al catheter and possibly a suprapubic catheter if that helps. If sed rate and CRP are improving, would consider treating him only for 14 days of IV antibiotics and see if the Al catheter is the answer to recurrent urinary tract infection and decrease number of episodes. 2. Candiduria most likely related to recurrent antibiotics and diabetes as well as obesity. She will be given one dose of Diflucan. PLAN: Continue IV meropenem until 05/31/2018. The patient could be discharged without IV antibiotics. She is to follow up with urology. Does not need followup with infectious disease unless she has recurrent infections.
--- NOTE | 2018-05-30 12:23 | IPNPDOC ---
Text Note Date of Service The patient was seen on 05/30/18. NOTE Subjective: Patient is a 72-year-old female with a PMHx of Asthma / COPD, Hx of DVT / PE, MATT on CPAP, Obesity hypoventilation, Diastolic CHF, HTN, DM2, DLP, Morbid obesity, CKD3, Gout, RLS, presented to the ER because of abnormal lab work. As an outpatient. Patient was following up with Dr. Navarro and received a urine analysis which was consistent with a urinary tract infection. Given her prior history of ESBL Escherichia coli. She was sent to the emergency room for further evaluation. Urine cultures were positive for ESBL Escherichia coli and patient was admitted to the hospitalist service for inpatient IV antibiotics. Patient was seen and examined at the bedside. . Currently she notes that she still expressing very knee pain. Denies any discomfort with urination or frequency. Denies any recent fevers or chills. Denies shortness of breath, chest pain or palpitations. Denies nausea, vomiting, abdominal pain, constipation, diarrhea. Objective: Vitals (See below) General: Lying in bed, no acute distress, comfortable, AAOx3 HEENT: NC, AT CVS: RRR, +S1S2 Lungs: Fair air entry b/l, -w/r/r Abdomen: Soft, ND, NT Extremities: - Edema, - Calf tenderness Assessment and plan: Sepsis - likely 2/2 HCAP and ESBL E. coli UTI - Clinically improving - Physical without any significant findings - Leukocytosis improving; CRP trending down - UA consistent with UTI - Urine culture 05/16: ESBL E. coli - Blood cultures 05/27: No growth at 48 hours - c/w Meropenem; s/p Vancomycin - Dr. Art and Dr. Rivera on consultation - plan is for outpatient antibiotics for ~3 weeks and discharge with Al Catheter and outpatient supra-pubic catheter s/p Acute metabolic encephalopathy - possibly 2/2 Sepsis and Polypharmacy - Clinically is oriented x 3 - No focal deficits - c/w adjusted medications New Onset atrial fibrillation w/ RVR - Appear to be in sinus rhythm now - c/w Atenolol; s/p Metoprolol - INR still sub-therapeutic - c/w full anticoagulation with Coumadin Mechanical fall - likely 2/2 acute metabolic encephalopathy - Imaging negative for fracture - Will repeat XR of R knee - c/w Adjusted pain control - Pain management on consult Neurogenic bladder / urinary retention with CKD3 - Cr at baseline - Urology on consultation; plan for discharge with Al and outpatient supra-pubic catheter placement - c/w Tamsulosin AOCD / FRED - Hg remains stable Chronic Diastolic CHF - No evidence of exacerbation - ECHO 05/2016: Diastolic Dysfunction, Mild TR, Mild pulmonary HTN - c/w Torsemide and Spironolactone HTN - c/w Atenolol Hx of PE / DVT - s/p IVC filter MATT / Obesity hypoventilation on CPAP - Allow home CPAP use Chronic hypoxic respiratory failure / Asthma / COPD - No evidence of exacerbation - Uses 2L NC oxygen at baseline - c/w inhaled therapy as ordered IDDM2 - c/w ISS and Levmir DLP - c/w Atorvastatin Obesity - Complicating care Gout - c/w Allopurinol, Colchicine Migraines and seizure disorder - c/w Keppra, Lyrica and Fioricet Vitamin D deficiency - c/w supplementation (on hold) IBS with constipation - c/w Bowel regimen RLS - s/p Requip Cervicalgia / Myofascial pain syndrome / Migraine headache. - Pain management on consultation Renal stone - Asymptomatic History of C diff - Occurred last year GERD - c/w Omeprazole DVT prophylaxis - c/w full anticoagulation with Coumadin VS,Fishbone, I+O VS, Fishbone, I+O Laboratory Tests 05/30/18 05:19 Red Blood Count 4.58, Mean Corpuscular Volume 76.9 L, Mean Corpuscular Hemoglobin 22.1 L, Mean Corpuscular Hemoglobin Concent 28.7 L, Red Cell Distribution Width 22.9 H, Neutrophils (%) (Auto) 53.5, Lymphocytes (%) (Auto) 30.1, Monocytes (%) (Auto) 11.6 H, Eosinophils (%) (Auto) 3.1 H, Basophils (%) (Auto) 0.9, Neutrophils # (Auto) 5.5, Lymphocytes # (Auto) 3.1, Monocytes # (Auto) 1.2 H, Eosinophils # (Auto) 0.3, Basophils # (Auto) 0.1, Calcium Level 8.6 L Vital Signs Date Time Temp Pulse Resp B/P (MAP) Pulse Ox O2 Delivery O2 Flow Rate FiO2 2/26/19 09:48 72 109/55 (73) 05/30/18 07:16 16 05/30/18 06:00 98.6 95 05/27/18 08:00 0.0 I&O- Last 24 Hours up to 6 AM 05/30/18 06:00 Intake Total 2210 ml Output Total 3575 ml Balance -1365 ml GURVINDER LEONARD MD May 30, 2018 12:23
[2018-05-30 14:00] VITALS: BP 108/60
[2018-05-30] MEDS: WARFARIN SOD 5 MG TAB PO SCH (17:48)
[2018-05-30 17:49] VITALS: BP 120/57
[2018-05-30] MEDS: BETAMETHASONE VAL 0.1% OINT 15 GM TOP SCH (21:42)
[2018-05-30 22:00] VITALS: BP 122/60
[2018-05-31] MEDS: MEROPENEM INJ 1 GM in APPROPRIATE DILUENT 1 EA IV SCH ×2 (03:59→16:16)
[2018-05-31] MEDS: SODIUM CHLORIDE 0.9% INJ 10 ML SYR IV PRN (04:42)
[2018-05-31 05:56] LABS: BASO # 0.1 10^3/uL (0.0-0.2); BASO % 1.5 % (0.0-1.0); EOS # 0.3 10^3/uL (0.0-0.50); EOS % 3.7 % (0.0-3.0); HEMATOCRIT 36.1 % (36.0-47.0); HEMOGLOBIN 10.5 g/dl (12.0-15.5); LYMPH # 2.4 10^3/uL (1.5-4.5); LYMPH % 30.3 % (24.0-44.0); MEAN CORPUSCULAR HEMOGLOBIN 22.1 pg (27.0-33.0); MEAN CORPUSCULAR HGB CONC 29.1 g/dl (32.0-36.5); MEAN CORPUSCULAR VOLUME 75.8 fl (80.0-96.0); MONO # 0.8 10^3/uL (0.0-0.8); NEUTROPHILS # 4.2 10^3/uL (1.8-7.7); NEUTROPHILS % 53.4 % (36.0-66.0); PLATELET COUNT, AUTOMATED 273 10^3/uL (150-450); RED BLOOD COUNT 4.76 10^6/uL (4.00-5.40); WHITE BLOOD COUNT 7.9 10^3/uL (4.0-10.0)
[2018-05-31 06:00] VITALS: BP 130/60
[2018-05-31 06:15] LABS: CALCIUM LEVEL 9.6 MG/DL (8.8-10.2); CREATININE FOR GFR 1.53 MG/DL (0.55-1.30); GLOMERULAR FILTRATION RATE 35.4 (>39); POTASSIUM SERUM 4.5 MEQ/L (3.5-5.1)
[2018-05-31 06:26] LABS: INR 1.4; PROTHROMBIN TIME 17.4 SECONDS (12.1-14.4)
--- NOTE | 2018-05-31 06:39 | IPN ---
DATE OF SERVICE: 05/30/2018 Maricarmen seems to be doing fairly well except for complaints of dizziness when she sits up or stands up. She states this is a new complaint. She denies any dysuria or hematuria. Does not like the feeling of having a chronic Al catheter and was wondering about a suprapubic catheter. She has had no fever or chills. No chest pain or shortness of breath. Her appetite is good. No nausea or vomiting. On physical exam, temperature is 98.5, pulse 60, respirations 17, blood pressure 108/60, O2 sat 93% on room air. Heart: Normal S1, S2. No murmurs. Lungs are clear except for a few crackles at the left base. Abdomen is soft, nontender, obese. Extremities: No edema. LABORATORY DATA: White count 10.2, hemoglobin 10.1, hematocrit 35.2, platelets 253, 53% neutrophils, 30% lymphocytes, 11% monocytes. Sodium 138, potassium 4.2, chloride 99, bicarb 31, BUN 39, creatinine 1.46, glucose 79, calcium 8.6, CRP 4.62. IMPRESSION: 1. ESBL E-coli urinary tract infection currently day number 12 out of 14 of IV meropenem. 2. Candiduria, not sure if the patient is symptomatic or not but she was given fluconazole 100 mg by mouth daily for 7 days. Please continue 7 day course. 3. Orthostatic dizziness. I have asked the nurses to do some orthostatic blood pressure and heart rate and to call with results to shift. PLAN: Discontinue IV meropenem on 06/01. The patient will be discharged home without IV antibiotic. She will have a chronic Al catheter. She will continue fluconazole for a total of 7 days. [facility]
[2018-05-31] MEDS: HumaLOG INSULIN (NovoLOG) PER UNIT SC SCH ×3 (08:28→17:30)
[2018-05-31] MEDS: MIRALAX *UNIT DOSE* 17GM PACKET PO SCH (08:28)
[2018-05-31] MEDS: LEVEMIR (INSULIN DETEMIR) 1 UNITS/0.01ML SC SCH ×2 (08:28→20:45)
[2018-05-31] MEDS: levETIRAcetam **XR** 500 MG TABLET PO SCH ×2 (08:29→20:43)
[2018-05-31] MEDS: TORSEMIDE 20 MG TAB PO SCH ×2 (08:29→17:29)
[2018-05-31] MEDS: ALLOPURINOL 300 MG TAB PO SCH (08:29)
[2018-05-31] MEDS: ATORVASTATIN 10 MG TAB PO SCH (08:29)
[2018-05-31] MEDS: SPIRONOLACTONE 25 MG TAB PO SCH ×2 (08:29→17:29)
[2018-05-31] MEDS: FLUCONAZOLE 100 MG TAB PO SCH (08:29)
[2018-05-31] MEDS: DOCUSATE SODIUM 100 MG CAP PO SCH ×2 (08:29→20:43)
[2018-05-31] MEDS: COLCHICINE 0.6 MG TAB PO SCH (08:29)
[2018-05-31] MEDS: CALCITRIOL 0.25 MCG CAP (S0169) PO SCH (08:29)
[2018-05-31] MEDS: POTASSIUM CHLORIDE 10 MEQ SR TABLET PO SCH ×2 (08:29→20:43)
[2018-05-31] MEDS: TAMSULOSIN 0.4 MG CAP PO SCH (08:29)
[2018-05-31] MEDS: OMEPRAZOLE 20 MG CAP PO SCH ×2 (08:30→20:44)
[2018-05-31] MEDS: LACTIC ACID 12% LOTION 225 GM BTL TOP SCH ×2 (08:30→20:45)
[2018-05-31] MEDS: TRIAMCINOLONE ACETONIDE 0.025 % 80 GM CREAM TOP SCH ×2 (08:30→20:45)
[2018-05-31] MEDS: ATENOLOL 50 MG TAB PO SCH ×2 (10:55→20:44)
--- NOTE | 2018-05-31 11:26 | IPNPDOC ---
Text Note Date of Service The patient was seen on 05/31/18. NOTE Subjective: Patient is a 72-year-old female with a PMHx of Asthma / COPD, Hx of DVT / PE, MATT on CPAP, Obesity hypoventilation, Diastolic CHF, HTN, DM2, DLP, Morbid obesity, CKD3, Gout, RLS, presented to the ER because of abnormal lab work. As an outpatient. Patient was following up with Dr. Navarro and received a urine analysis which was consistent with a urinary tract infection. Given her prior history of ESBL Escherichia coli. She was sent to the emergency room for further evaluation. Urine cultures were positive for ESBL Escherichia coli and patient was admitted to the hospitalist service for inpatient IV antibiotics. Patient was seen and examined at the bedside. Patient does not experience chest pain, shortness of breath, palpitations, is not complaining of significant knee pain today. I have advised her of the updated plan. Will be continuing to work with physical therapy today Objective: Vitals (See below) General: Lying in bed, no acute distress, comfortable, AAOx3 HEENT: NC, AT CVS: RRR, +S1S2 Lungs: Fair air entry b/l, auscultation without reveal any rhonchi, rales or wheezing Abdomen: Soft, ND, NT Extremities: No evidence of edema, - Calf tenderness Assessment and plan: Sepsis - likely 2/2 HCAP and ESBL E. coli UTI - Clinically improving - Physical without any significant findings - Leukocytosis improving; CRP trending down - UA consistent with UTI - Urine culture 05/16: ESBL E. coli; URine culture 05/27L: Yeast like organisms - Blood cultures 05/27: No growth - c/w Meropenem (Day #13) and Fluconazole (Day #2); s/p Vancomycin - Dr. Art and Dr. Rivera on consultation - Will complete final day of antibiotic on 06/01 and discharge with Al Catheter with outpatient plans for supra-pubic catheter s/p Acute metabolic encephalopathy - possibly 2/2 Sepsis and Polypharmacy - Clinically is oriented x 3 - No focal deficits - c/w adjusted medications New Onset atrial fibrillation w/ RVR - Appear to be in sinus rhythm now - c/w Atenolol; s/p Metoprolol - INR still sub-therapeutic - c/w full anticoagulation with Coumadin Mechanical fall - likely 2/2 acute metabolic encephalopathy - Imaging negative for fracture - XR of R knee - pending - c/w Adjusted pain control - Pain management on consult Neurogenic bladder / urinary retention with CKD3 - Cr at baseline - Urology on consultation; plan for discharge with Al and outpatient supra- pubic catheter placement - c/w Tamsulosin AOCD / FRED - Hg remains stable Chronic Diastolic CHF - No evidence of exacerbation - ECHO 05/2016: Diastolic Dysfunction, Mild TR, Mild pulmonary HTN - c/w Torsemide and Spironolactone HTN - c/w Atenolol - c/w Spironolactone and Torsemide Hx of PE / DVT - s/p IVC filter MATT / Obesity hypoventilation on CPAP - Allow home CPAP use Chronic hypoxic respiratory failure / Asthma / COPD - No evidence of exacerbation - Uses 2L NC oxygen at baseline - c/w inhaled therapy as ordered IDDM2 - c/w ISS and Levemir DLP - c/w Atorvastatin Obesity - Complicating care Gout - c/w Allopurinol, Colchicine Migraines and seizure disorder - c/w Keppra, Lyrica and Fioricet Vitamin D deficiency - c/w supplementation (on hold) IBS with constipation - c/w Bowel regimen RLS - s/p Requip Cervicalgia / Myofascial pain syndrome / Migraine headache. - Pain management on consultation Renal stone - Asymptomatic History of C diff - Occurred last year GERD - c/w Omeprazole DVT prophylaxis - c/w full anticoagulation with Coumadin Disposition: - Anticipate discharge within 24 hours VS,Regise, I+O VS, Fishbone, I+O Laboratory Tests 05/31/18 05:41 Red Blood Count 4.76, Mean Corpuscular Volume 75.8 L, Mean Corpuscular Hemoglobin 22.1 L, Mean Corpuscular Hemoglobin Concent 29.1 L, Red Cell Distribution Width 22.7 H, Neutrophils (%) (Auto) 53.4, Lymphocytes (%) (Auto) 30.3, Monocytes (%) (Auto) 10.0 H, Eosinophils (%) (Auto) 3.7 H, Basophils (%) (Auto) 1.5 H, Neutrophils # (Auto) 4.2, Lymphocytes # (Auto) 2.4, Monocytes # (Auto) 0.8, Eosinophils # (Auto) 0.3, Basophils # (Auto) 0.1, Calcium Level 9.6 Vital Signs Date Time Temp Pulse Resp B/P (MAP) Pulse Ox O2 Delivery O2 Flow Rate FiO2 05/31/18 10:55 69 125/58 05/31/18 06:00 97.2 21 97 05/27/18 08:00 0.0 I&O- Last 24 Hours up to 6 AM 05/31/18 06:00 Intake Total 1970 ml Output Total 2600 ml Balance -630 ml GURVINDER LEONARD MD May 31, 2018 11:26
--- NOTE | 2018-05-31 12:25 | REP ---
Clinical: Right knee pain. Technique: AP, lateral, bilateral oblique views of the right knee. Findings: Age-related osteodystrophy. Moderate arthritic changes include cortical irregularity primarily involving the lateral femoral condyle, subchondral sclerosis to the tibial plateau, and medial joint space narrowing. No acute fracture dislocation. No effusion. Impression: Moderate osteodystrophy and arthritic degenerative changes. Electronically Signed by Ramos Chaparro MD 05/31/2018 12:16 P
[2018-05-31 14:00] VITALS: BP 131/64
[2018-05-31] MEDS: WARFARIN SOD 5 MG TAB PO SCH (17:31)
[2018-05-31] MEDS: ONDANSETRON 4 MG TAB (S0181) PO PRN (19:54)
[2018-05-31] MEDS: TAPENTADOL 50 MG TABLET (NUCYNTA) PO PRN (19:55)
[2018-05-31 20:44] VITALS: BP 121/72
[2018-05-31] MEDS: BETAMETHASONE VAL 0.1% OINT 15 GM TOP SCH (20:45)
[2018-05-31 22:00] VITALS: BP 121/72
[2018-06-01] MEDS: MEROPENEM INJ 1 GM in APPROPRIATE DILUENT 1 EA IV SCH ×2 (02:08→13:14)
[2018-06-01] MEDS: SODIUM CHLORIDE 0.9% INJ 10 ML SYR IV PRN ×2 (03:03→14:04)
[2018-06-01 05:39] LABS: BASO # 0.2 10^3/uL (0.0-0.2); BASO % 1.6 % (0.0-1.0); EOS # 0.4 10^3/uL (0.0-0.50); EOS % 3.6 % (0.0-3.0); HEMATOCRIT 39.7 % (36.0-47.0); HEMOGLOBIN 11.5 g/dl (12.0-15.5); LYMPH # 3.5 10^3/uL (1.5-4.5); LYMPH % 34.3 % (24.0-44.0); MEAN CORPUSCULAR HEMOGLOBIN 21.9 pg (27.0-33.0); MEAN CORPUSCULAR VOLUME 75.8 fl (80.0-96.0); MONO % 10.1 % (0.0-5.0); PLATELET COUNT, AUTOMATED 308 10^3/uL (150-450); RED BLOOD COUNT 5.24 10^6/uL (4.00-5.40); WHITE BLOOD COUNT 10.2 10^3/uL (4.0-10.0)
[2018-06-01 06:00] VITALS: BP 130/56
[2018-06-01 06:08] LABS: CALCIUM LEVEL 10.2 MG/DL (8.8-10.2); CREATININE FOR GFR 1.62 MG/DL (0.55-1.30); GLOMERULAR FILTRATION RATE 33.2 (>39); POTASSIUM SERUM 5.4 MEQ/L (3.5-5.1)
[2018-06-01 06:32] VITALS: BP_SYST 114; BP_SYST 116; BP_DIAS 57; BP_DIAS 68; BP_DIAS 73
[2018-06-01] MEDS: HumaLOG INSULIN (NovoLOG) PER UNIT SC SCH ×2 (08:53→13:13)
[2018-06-01] MEDS: COLCHICINE 0.6 MG TAB PO SCH (08:54)
[2018-06-01] MEDS: DOCUSATE SODIUM 100 MG CAP PO SCH (08:54)
[2018-06-01] MEDS: TAMSULOSIN 0.4 MG CAP PO SCH (08:55)
[2018-06-01] MEDS: levETIRAcetam **XR** 500 MG TABLET PO SCH (08:55)
[2018-06-01] MEDS: ATORVASTATIN 10 MG TAB PO SCH (08:55)
[2018-06-01] MEDS: FLUCONAZOLE 100 MG TAB PO SCH (08:55)
[2018-06-01] MEDS: MIRALAX *UNIT DOSE* 17GM PACKET PO SCH (08:56)
[2018-06-01] MEDS: OMEPRAZOLE 20 MG CAP PO SCH (08:58)
[2018-06-01] MEDS: CALCITRIOL 0.25 MCG CAP (S0169) PO SCH (08:58)
[2018-06-01] MEDS: SPIRONOLACTONE 25 MG TAB PO SCH (09:00)
[2018-06-01] MEDS: TORSEMIDE 20 MG TAB PO SCH (09:00)
[2018-06-01] MEDS: LACTIC ACID 12% LOTION 225 GM BTL TOP SCH (09:00)
[2018-06-01] MEDS: ATENOLOL 50 MG TAB PO SCH (09:00)
[2018-06-01] MEDS: TRIAMCINOLONE ACETONIDE 0.025 % 80 GM CREAM TOP SCH (09:00)
[2018-06-01] MEDS: LEVEMIR (INSULIN DETEMIR) 1 UNITS/0.01ML SC SCH (09:11)
[2018-06-01] MEDS: ALLOPURINOL 300 MG TAB PO SCH (09:11)
[2018-06-01] MEDS ORDERED: PATIROMER SORBITEX CALCIUM 8.4 GM POWDER PACKET (VELTASSA) PO ONE (12:00)
--- NOTE | 2018-06-01 12:39 | DS.PDOC ---
Discharge Summary General Date of Admission May 18, 2018 at 16:33 Date of Discharge 06/01/2018 Discharge Summary PROCEDURES PERFORMED DURING STAY: [None]. ADMITTING DIAGNOSES / DISCHARGE DIAGNOSES: Sepsis - likely 2/2 HCAP and ESBL E. coli UTI s/p Acute metabolic encephalopathy - possibly 2/2 Sepsis and Polypharmacy New onset / Paroxysmal atrial fibrillation w/ RVR Mechanical fall - likely 2/2 acute metabolic encephalopathy Neurogenic bladder / urinary retention with CKD3 AOCD / FRED Chronic Diastolic CHF HTN Hx of PE / DVT MATT / Obesity hypoventilation on CPAP Chronic hypoxic respiratory failure / Asthma / COPD IDDM2 DLP Obesity Gout Migraines and seizure disorder Vitamin D deficiency IBS with constipation RLS Cervicalgia / Myofascial pain syndrome / Migraine headache. Renal stone History of C diff GERD DVT prophylaxis COMPLICATIONS/CHIEF COMPLAINT: Confusion / Discomfort with urination HISTORY OF PRESENT ILLNESS: Patient is a 72-year-old female with a PMHx of Asthma / COPD, Hx of DVT / PE, MATT on CPAP, Obesity hypoventilation, Diastolic CHF, HTN, DM2, DLP, Morbid obesity, CKD3, Gout, RLS, presented to the ER because of abnormal lab work. As an outpatient. Patient was following up with Dr. Navarro and received a urine analysis which was consistent with a urinary tract infection. Given her prior history of ESBL Escherichia coli. She was sent to the emergency room for f urther evaluation. Urine cultures were positive for ESBL Escherichia coli and patient was admitted to the hospitalist service for inpatient IV antibiotics. HOSPITAL COURSE: Sepsis - likely 2/2 HCAP and ESBL E. coli UTI - Clinically improving - Physical without any significant findings - Leukocytosis improving; CRP trending down - UA consistent with UTI - Urine culture 05/16: ESBL E. coli; Urine culture 05/27L: Yeast like organisms - Blood cultures 05/27: No growth - Has completed Meropenem (2 week course) and will complete Fluconazole (Day #3 of 7); s/p Vancomycin - Dr. Art and Dr. Rivera on consultation - Has completed 2 weeks of antibiotics and will be discharged with Al Catheter and outpatient f/u for supra-pubic catheter s/p Acute metabolic encephalopathy - possibly 2/2 Sepsis and Polypharmacy - Clinically is oriented x 3 - No focal deficits - c/w adjusted medications New onset / Paroxysmal atrial fibrillation w/ RVR - Appear to be in sinus rhythm now - c/w Atenolol; s/p Metoprolol - INR still sub-therapeutic - Patient has a history of GI bleed requiring transfusions in the past; I have described to her that continuing anticoagulation will be putting you at increa sed risk of bleed; however discontinuing anticoagulation will place you at an increased risk of stroke; after weighing the risks / benefits - patient has opted to continue with anticoagulation - c/w full anticoagulation with Coumadin; will have outpatient f/u of INR Mechanical fall - likely 2/2 acute metabolic encephalopathy - Imaging negative for fracture - XR of R knee - pending - c/w Adjusted pain control - Pain management on consult Neurogenic bladder / urinary retention with CKD3 - Cr at baseline - Urology on consultation; plan for discharge with Al and outpatient supra- pubic catheter placement - c/w Tamsulosin AOCD / FRED - Hg remains stable Chronic Diastolic CHF - No evidence of exacerbation - ECHO 05/2016: Diastolic Dysfunction, Mild TR, Mild pulmonary HTN - c/w Torsemide and Spironolactone HTN - c/w Atenolol - c/w Spironolactone and Torsemide Hx of PE / DVT - s/p IVC filter MATT / Obesity hypoventilation on CPAP - Allow home CPAP use Chronic hypoxic respiratory failure / Asthma / COPD - No evidence of exacerbation - Uses 2L NC oxygen at baseline - c/w inhaled therapy as ordered IDDM2 - c/w ISS and Levemir DLP - c/w Atorvastatin Obesity - Complicating care Gout - c/w Allopurinol, Colchicine Migraines and seizure disorder - c/w Keppra, Lyrica and Fioricet Vitamin D deficiency - c/w supplementation (on hold) IBS with constipation - c/w Bowel regimen RLS - s/p Requip Cervicalgia / Myofascial pain syndrome / Migraine headache. - Pain management on consultation Renal stone - Asymptomatic History of C diff - Occurred last year GERD - c/w Omeprazole DVT prophylaxis - c/w full anticoagulation with Coumadin DISCHARGE MEDICATIONS: Please see below. ALLERGIES: Please see below. PHYSICAL EXAMINATION ON DISCHARGE: Vitals (See below) General: Lying in bed, no acute distress, comfortable, AAOx3 HEENT: NC, AT CVS: RRR, +S1S2 Lungs: Fair air entry b/l, no evidence of rhonchi / wheezing / rales on auscultation Abdomen: Soft, Nondistended, no tenderness, +Al Extremities: No evidence of edema, - Calf tenderness LABORATORY DATA: Please see below. ACTIVITY: [As tolerated]. DISCHARGE PLAN: Follow up with Dr. Solomon Villalobos, Dr. Art, Dr. Rivera, Estela Fernandez within 7 days Remain compliant with treatment plan and medications Return to the ER if you experience any problems DISPOSITION: Home DISCHARGE CONDITION: [Stable]. TIME SPENT ON DISCHARGE: Greater than [35] minutes. Vital Signs/I&Os Vital Signs Date Time Temp Pulse Resp B/P (MAP) Pulse Ox O2 Delivery O2 Flow Rate FiO2 06/01/18 06:32 60 114/57 (76) 62 116/68 (84) 60 114/73 (87) 06/01/18 06:00 96.8 20 94 1.0 I&O- Last 24 Hours up to 6 AM 06/01/18 06:00 Intake Total 2530 ml Output Total 4250 ml Balance -1720 ml Laboratory Data Labs 24H Laboratory Tests 2 05/31/18 16:36: Bedside Glucose (Misc Panel) 287H 05/31/18 20:04: Bedside Glucose (Misc Panel) 269H 06/01/18 05:28: Immature Granulocyte % (Auto) 1.4, White Blood Count 10.2H, Red Blood Count 5.24, Hemoglobin 11.5L, Hematocrit 39.7, Mean Corpuscular Volume 75.8L, Mean Corpuscular Hemoglobin 21.9L, Mean Corpuscular Hemoglobin Concent 29.0L, Red Cell Distribution Width 22.5H, Platelet Count 308, Neutrophils (%) (Auto) 49.0, Lymphocytes (%) (Auto) 34.3, Monocytes (%) (Auto) 10.1H, Eosinophils (%) (Auto) 3.6H, Basophils (%) (Auto) 1.6H, Neutrophils # (Auto) 5.0, Lymphocytes # (Auto) 3.5, Monocytes # (Auto) 1.0H, Eosinophils # (Auto) 0.4, Basophils # (Auto) 0.2, Nucleated Red Blood Cells % (auto) 0.0, Anion Gap 8, Glomerular Filtration Rate 33.2L, Blood Urea Nitrogen 35H, Creatinine 1.62H, Sodium Level 136, Potassium Level 5.4H, Chloride Level 97L, Carbon Dioxide Level 31, Calcium Level 10.2 06/01/18 06:08: Bedside Glucose (Misc Panel) 153H 06/01/18 11:42: Bedside Glucose (Misc Panel) 215H CBC/BMP Laboratory Tests 06/01/18 05:28 Red Blood Count 5.24, Mean Corpuscular Volume 75.8 L, Mean Corpuscular Hemoglobin 21.9 L, Mean Corpuscular Hemoglobin Concent 29.0 L, Red Cell Distribution Width 22.5 H, Neutrophils (%) (Auto) 49.0, Lymphocytes (%) (Auto) 34.3, Monocytes (%) (Auto) 10.1 H, Eosinophils (%) (Auto) 3.6 H, Basophils (%) (Auto) 1.6 H, Neutrophils # (Auto) 5.0, Lymphocytes # (Auto) 3.5, Monocytes # (Auto) 1.0 H, Eosinophils # (Auto) 0.4, Basophils # (Auto) 0.2, Calcium Level 10.2 FSBS Laboratory Tests Test 05/31/18 16:36 05/31/18 20:04 06/01/18 06:08 06/01/18 11:42 Range/Units Bedside Glucose (Misc Panel) 287 269 153 215 83-110 MG/DL Microbiology Microbiology 05/27/18 Blood Culture - Preliminary, Resulted No Growth after 72 hours. All specime... 05/27/18 Blood Culture - Preliminary, Resulted No Growth after 72 hours. All specime... 05/28/18 MRSA Screen - Final, Complete 05/28/18 Respiratory Virus Panel (PCR) (GORDY) - Final, Complete 05/27/18 Urine Culture - Final, Complete Yeast Like Organism Discharge Medications Scheduled (Amitiza) 24 Mcg Cap, 24 MCG PO QHS, (Reported) (Tresiba Flextouch) 100 Unit/Ml Inj, 80 UNIT SC DAILY, (Reported) (Restasis) 0.05 % Emu, 1 DROP OU BID, (Reported) Allopurinol (Zyloprim) 300 Mg Tab, 300 MG PO DAILY, (Reported) Ammonium Lactate (Ammonium Lactate) 12 % Cre, 1 DOSE TOP BID, (Reported) APPLY TO LEGS/FEET Atorvastatin Calcium (Atorvastatin Calcium) 10 Mg Tab, 10 MG PO DAILY, (Reported) Betamethasone Mala (Betamethasone Valerate) 45 Gm Oint, 1 DOSE TOP QHS, (Reported) USES ON LEGS FOR HOTSPOTS Bisoprolol Fumarate (Bisoprolol Fumarate) 5 Mg Tab, 2.5 MG PO DAILY, (Reported) Calcitriol (Calcitriol) 0.25 Mcg Cap, 0.25 MCG PO DAILY, (Reported) Colchicine (Colchicine) 0.6 Mg Tab, 0.6 MG PO DAILY, (Reported) Docusate Sodium (Docusate Sodium) 100 Mg Cap, 100 MG PO BID, (Reported) Duloxetine Hcl (Duloxetine HCl) 60 Mg Cap, 60 MG PO BID, (Reported) Ergocalciferol (Vitamin D) 50,000 Unit Cap, 50,000 UNIT PO MTHLY, (Reported) TAKES ON 1ST OF THE MONTH Estradiol (Estrace) 0.1 Mg/Gm Cre, 1 DOSE PV 3XW, (Reported) TAKES TUESDAY, TUESDAY AND TUESDAY AT QHS Insulin Human Lispro (Humalog) 1 Units/0.01 Ml Inj, 1 DOSE SC AC, (Reported) PER SLIDING SCALE < 70: TREAT LBS WITH 15 G CARBS 70 -90: 46, 46, 46 91-130: 52, 52, 52, 8 FOR NIGHT SNACK 131-150: 56, 56, 56, 10 FOR NIGHT SNACK 151-200: 60, 60, 60, 12 FOR NIGHT SNACK, 4 UNITS NPO 201-250: 66, 66, 66, 14 FOR NIGHT SNACK, 6 UNITS NPO 251-300: 72, 72, 72, 16 FOR NIGHT SNACK, 8 UNITS NPO 301-350: 78, 78, 78, 18 FOR NIGHT SNACK, 10 UNITS NPO 351-400: 82, 82, 82, 20 FOR NIGHT SNACK, 14 UNITS NPO 401-450: 86, 86, 86, 22 FOR NIGHT SNACK, 18 UNITS NPO > 450: 90, 90, 90, 24 FOR NIGHT SNACK, 22 UNITS NPO Lactulose (Lactulose) 10 Gm/15 Ml Kelli, 30 ML PO BID, (Reported) Levetiracetam (Levetiracetam ER) 500 Mg Lindsay, 500 MG PO BID, (Reported) Metoclopramide HCl (Metoclopramide HCl) 10 Mg Tab, 10 MG PO TID, (Reported) Omeprazole (Omeprazole) 20 Mg Cap, 20 MG PO BID, (Reported) Polyethylene Glycol (Miralax) 1 Pow Pow, 17 GM PO DAILY, (Reported) Potassium Chloride (Klor-Con M10) 10 Meq Tabcr, 20 MEQ PO BID, (Reported) Pregabalin (Lyrica) 150 Mg Cap, 150 MG PO TID, (Reported) Ropinirole Hydrochloride (Ropinirole HCl) 1 Mg Tab, 2 MG PO BID, (Reported) TAKES AT 1500 AND HS Senna (Senna-Lax) 8.6 Mg Tab, 17.2 MG PO BID, (Reported) Spironolactone (Spironolactone) 25 Mg Tab, 25 MG PO BID, (Reported) Sucralfate (Sucralfate) 1 Gm Tab, 1 GM PO BID, (Reported) Tamsulosin Hydrochloride (Flomax) 0.4 Mg Cap, 0.4 MG PO DAILY, (Reported) Torsemide (Torsemide) 20 Mg Tab, 60 MG PO BID, (Reported) Triamcinolone Acet (Triamcinolone Acetonide 0.025% Crm) 1 Dose/80 Gm Cream, 1 DOSE TOP BID, (Reported) APPLIES ON THIGHS Scheduled PRN Acetaminophen (Tylenol 8 Hour Arthritis) 650 Mg Tab, 650 MG PO Q8H PRN for PAIN, (Reported) Albuterol Sulfate (Albuterol Sulfate) 2.5 Mg/3 Ml Nebu, 2.5 MG INH Q4H PRN for SHORTNESS OF BREATH, (Reported) Benzonatate (Benzonatate) 100 Mg Cap, 100 MG PO TID PRN for COUGH, (Reported) Guaifenesin (Guaifenesin ER) 600 Mg Tab, 600 MG PO BID PRN for CONGESTION, (Reported) Halobetasol Propionate (Halobetasol Propionate) 0.05 % Cre, 1 DOSE TOP for RASH, (Reported) APPLIES UNDER FOLDS AND BREASTS Milk Of Magnesia (Milk of Magnesia) 1,200 Mg/15 Ml Esperanza, 30 ML PO DAILY PRN for CONSTIPATION, (Reported) Nystatin (Nystatin) 100,000 Unit/Gm Cre, 1 DOSE TOP BID PRN for RASH, (Reported) UNDER BREASTS AND GROIN AREA Nystatin (Nystatin Oint) 30 Gm Oint, 1 DOSE TOP TID PRN for RASH, (Reported) APPLIES AROUND VAGINAL AREA Ondansetron HCl (Ondansetron HCl) 4 Mg Tab, 4 MG PO QID PRN for NAUSEA OR VOMITING, (Reported) Scopolamine (Transderm-Scop) 1.5 Mg Dis, 1.5 MG TOP Q72H PRN for NAUSEA, (Reported) FELL OFF IN SHOWER 05/18/18 Allergies Coded Allergies: Cephalosporins (Verified Allergy, Intermediate, KEFLEX - HIVES, 01/23/18) Chlorpromazine (Verified Allergy, Intermediate, HIVES, 01/23/18) Loratadine (Verified Allergy, Intermediate, HIVES, 01/23/18) Penicillins (Verified Allergy, Intermediate, HIVES, 01/23/18) Pentazocine (Verified Allergy, Intermediate, HIVES, 01/23/18) Sulfa Antibiotics (Unverified Allergy, Intermediate, HIVES, 01/23/18) Methadone (Verified Allergy, Unknown, 01/23/18) Latex (Verified Adverse Reaction, Mild, RISK, 01/23/18) GURVINDER LEONARD MD Jun 01, 2018 12:39
[2018-06-01] MEDS ORDERED: FLUC100T PO (12:47)
[2018-06-01] MEDS ORDERED: SPIR-10 PO (12:47)
[2018-06-01] MEDS ORDERED: TORS20TA2 PO (12:47)
[2018-06-01] MEDS ORDERED: ATEN25TA PO (12:47)
[2018-06-01] MEDS ORDERED: COUM1TAB17 PO (12:55)
[2018-06-01 12:57] LABS: CREATININE FOR GFR 1.64 MG/DL (0.55-1.30); GLOMERULAR FILTRATION RATE 32.7 (>39); MAGNESIUM LEVEL 2.6 MG/DL (1.8-2.4); POTASSIUM SERUM 4.6 MEQ/L (3.5-5.1)
[2018-06-01] MEDS ORDERED: NUCY50TA19 PO (12:57)
[2018-06-01 13:30] LABS: INR 1.71; PROTHROMBIN TIME 20.4 SECONDS (12.1-14.4)
== END 2018-06-01 15:00 | disposition home health service (06) | DRG 689 ==
LOC: M ED 12:24 → M ED INP 16:33 → M MSPAV 20:39
PROVIDERS: ADMIT Internal Medicine; ATTEND Internal Medicine
DX: N39.0 Urinary tract infection, site not specified (principal); G93.41 Metabolic encephalopathy; A41.9 Sepsis, unspecified organism; J18.9 Pneumonia, unspecified organism; I50.32 Chronic diastolic (congestive) heart failure; I13.0 Hypertensive heart and chronic kidney disease with heart failure and stage 1 through stage 4 chronic kidney disease, or unspecified chronic kidney disease; J96.11 Chronic respiratory failure with hypoxia; E66.2 Morbid (severe) obesity with alveolar hypoventilation; E87.2 Acidosis; E87.3 Alkalosis; B37.49 Other urogenital candidiasis; E11.22 Type 2 diabetes mellitus with diabetic chronic kidney disease; E78.5 Hyperlipidemia, unspecified; N18.3 Chronic kidney disease, stage 3 (moderate); J44.9 Chronic obstructive pulmonary disease, unspecified; G40.909 Epilepsy, unspecified, not intractable, without status epilepticus; G25.81 Restless legs syndrome; K58.1 Irritable bowel syndrome with constipation; M10.9 Gout, unspecified; D50.9 Iron deficiency anemia, unspecified; B96.20 Unspecified Escherichia coli [E. coli] as the cause of diseases classified elsewhere; I48.2 Chronic atrial fibrillation; J45.909 Unspecified asthma, uncomplicated; E11.65 Type 2 diabetes mellitus with hyperglycemia; N31.9 Neuromuscular dysfunction of bladder, unspecified; R33.9 Retention of urine, unspecified; G43.909 Migraine, unspecified, not intractable, without status migrainosus; K21.9 Gastro-esophageal reflux disease without esophagitis; E55.9 Vitamin D deficiency, unspecified; Z99.81 Dependence on supplemental oxygen; Z96.641 Presence of right artificial hip joint; Z88.0 Allergy status to penicillin; Z88.1 Allergy status to other antibiotic agents; Z88.2 Allergy status to sulfonamides; Z88.8 Allergy status to other drugs, medicaments and biological substances; Z79.4 Long term (current) use of insulin; Z79.899 Other long term (current) drug therapy; Z86.718 Personal history of other venous thrombosis and embolism; Z68.35 Body mass index [BMI] 35.0-35.9, adult; Y95 Nosocomial condition

== ENCOUNTER → 2018-06-03 | Outpatient (REF) | payer MEDICARE, MEDICAID ==
[~2018-06-03] MED LIST changes: +ATEN25TA PO; +FLUC100T PO; +LEVE500XR PO; +NUCY50TA19 PO; +ROPI2TAB PO
[2018-06-03 15:18] LABS: INR 2.65; PROTHROMBIN TIME 28.8 SECONDS (12.1-14.4)
== END ==
LOC: M LAB REF 15:00
PROVIDERS: ATTEND Internal Medicine
DX: Z13.9 Encounter for screening, unspecified (principal); Z79.01 Long term (current) use of anticoagulants

== ENCOUNTER → 2018-06-07 | Outpatient (REF) | payer MEDICARE, MEDICAID ==
[2018-06-07 17:45] LABS: PROTHROMBIN TIME 64.2 SECONDS (12.1-14.4)
[2018-06-07 18:03] LABS: INR 7.27
== END ==
LOC: M LAB REF 17:23
PROVIDERS: ATTEND Nurse Practitioner Adult Health
DX: I48.0 Paroxysmal atrial fibrillation (principal)

== ENCOUNTER → 2018-06-12 | Outpatient (REF) | payer MEDICARE, MEDICAID ==
[2018-06-12 16:52] LABS: INR 1.52; PROTHROMBIN TIME 18.6 SECONDS (12.1-14.4)
== END ==
LOC: M LAB REF 15:57
PROVIDERS: ATTEND Nurse Practitioner Adult Health
DX: I48.0 Paroxysmal atrial fibrillation (principal)

== ENCOUNTER → 2018-06-14 | Outpatient (CLI) | payer MEDICARE, MEDICAID ==
--- NOTE | 2018-06-30 01:39 | ECWPNPC ---
PATIENT NAME: SHIVANI PAYNE I : 1945 GENDER: FEMALE VISIT DATE: 06/14/2018 DISCHARGE DATE: 06/14/18 1602 VISIT LOCKED DATE TIME: PHYSICIAN: CHERIE AMATO RESOURCE: CHERIE AMATO REASON FOR APPOINTMENT 1. POST PROCEDURE HISTORY OF PRESENT ILLNESS HISTORY OF PRESENT ILLNESS: HERE FOR F/U OF CHRONIC NECK AND RIGHT LEG PAIN.WAS NOT ABLE TO TOLERATE NUCYNTA AND STATES SHE GOT A RASH.SHE HAS BEEN TRIALED ON MULTIPLE MEDICATIONS BOTH NARCOTIC AND NON NARCOTIC AND HAS HAD SIDE EFFECTS WITH ALL EXCEPT OXYCODONE.RATING PAIN VAS 10/10.HAS HX OF MULTIPLE RECENT HOSPITALIZATIONS MAINLY DUE TO UTI. PAIN THE PATIENT DESCRIBES THE PAIN... FALL RISK SCREENING: SCREENING : NO FALLS IN THE PAST YEAR. CURRENT MEDICATIONS TAKING BISOPROLOL FUMARATE 5 MG TABLET 1/2 TABLET ORALLY ONCE A DAY TAKING ONDANSETRON 4 MG TABLET DISPERSIBLE 1 TABLET ON TONGUE ORALLY QID TAKING METOCLOPRAMIDE HCL 10 MG TABLET 1 TAB(S) ORALLY TID TAKING OMEPRAZOLE 20 MG CAPSULE DELAYED RELEASE 1 CAPSULE ORALLY BID TAKING SENNA 8.6-50 MG TABLET 2 TADS ORALLY BID TAKING SPIRONOLACTONE 25 MG TABLET 1 TABLET ORALLY BID TAKING SCOPOLAMINE BASE 1.5 MG PATCH 72 HOUR 1 PATCH TO SKIN NEEDED TRANSDERMAL TAKING SUCRALFATE 1 GM/10ML SUSPENSION 10 ML ORALLY TWICE A DAY TAKING POTASSIUM 20 MEQ 2 TABLETS ORAL ONCE DAILY TAKING ALLOPURINOL 300 MG TABLET 1 TABLET ORALLY ONCE A DAY TAKING COLCHICINE 0.6 MG TABLET 1 TABLET ORALLY ONCE A DAY TAKING HUMALOG 100 UNIT/ML SOLUTION SLIDING SCALE SUBCUTANEOUS FOUR TIMES DAILY NEEDED TAKING TRESIBA 200 U/ML 120 UNITA SUBCUTANEOUSLY DAILY TAKING ACETAMINOPHEN-CAFFEINE 500-65 MG TABLET 2 TABLETS NEEDED ORALLY THREE TIMES A DAY TAKING LACTULOSE 20 GM/30ML SOLUTION 30 ML ORALLY BID TAKING LEVETIRACETAM 500 MG TABLET 1 TABLET ORALLY TWICE A DAY TAKING OXYGEN 2 L NASAL CANNULA PRN TAKING NYSTATIN 166854 UNIT/GM CREAM 1 APPLICATION TO AFFECTED AREA EXTERNALLY TWICE A DAY TAKING CRANBERRY 500 MG CAPSULE 1 CAP(S) ORALLY THREE TIMES A DAY TAKING AMMONIUM LACTATE 12 % CREAM 1 APPLICATION TO AFFECTED AREA EXTERNALLY TWICE A DAY TAKING AMITIZA 24 MCG CAPSULE 1 CAPSULE WITH FOOD ORALLY BEFORE BEDTIME TAKING VITAMIN D (ERGOCALCIFEROL) 22611 UNIT CAPSULE 1 CAPSULE ORALLY MONTHLY TAKING ASPIRIN 81 MG TABLET 1 TABLET ORALLY ONCE A DAY TAKING TORSEMIDE 20 MG TABLET 3 TAB ORALLY TWICE DAILY TAKING ROPINIROLE HCL 2 MG TABLET 1 TABLET 1 TO 3 HOURS BEFORE BEDTIME ORALLY BID TAKING TRIAMCINOLONE ACETONIDE 0.025 % CREAM 1 APPLICATION TO AFFECTED AREA EXTERNALLY THIGHS TWICE A DAY TAKING ALBUTEROL SULFATE (2.5 MG/3ML) 0.083% NEBULIZATION SOLUTION 3 ML NEEDED INHALATION THREE TIMES A DAY TAKING ATORVASTATIN CALCIUM 10 MG TABLET 1 TABLET ORALLY ONCE A DAY TAKING BENZONATATE 100 MG CAPSULE 1 CAPSULE NEEDED ORALLY THREE TIMES A DAY TAKING BETAMETHASONE DIPROPIONATE 0.05 % LOTION 1 APPLICATION TO AFFECTED AREA EXTERNALLY ONCE A DAY TAKING CALCITRIOL 0.25 MCG CAPSULE 1 CAPSULE ORALLY ONCE A DAY TAKING DOCUSATE SODIUM 100 MG CAPSULE 1 CAPSULE NEEDED ORALLY ONCE A DAY TAKING DULOXETINE HCL 60 MG CAPSULE DELAYED RELEASE PARTICLES 1 CAPSULE ORALLY BID TAKING ESTRADIOL 10 % CREAM TAKING LEVOFLOXACIN 500 MG TABLET 1 TABLET ORALLY ONCE A DAY TAKING MILK OF MAGNESIA 1200 MG/15ML SUSPENSION 5 ML NEEDED ORALLY FOUR TIMES A DAY TAKING OXYBUTYNIN CHLORIDE 5 MG TABLET 1 TABLET ORALLY TWICE A DAY TAKING LYRICA 150 MG CAPSULE 1 CAPSULE ORALLY BID TAKING SCOPOLAMINE 1 MG/3DAYS PATCH 72 HOUR 1 PATCH TO SKIN NEEDED TRANSDERMAL TAKING PERCOCET 5-325 MG TABLET 1-2 TAB ORALLY EVERY 6 -8H PRN MDD6 #100 TAKING ELIQUIS 5 MG TABLET 1 CAP ORALLY BID NOT-TAKING NUCYNTA 50 MG TABLET 1 TABLET ORALLY EVERY 6 HRS PRN NOT-TAKING DUONEB 1 DOSE VIA NEBULIZER TID NEEDED NOT-TAKING LEVAQUIN 500 MG TABLET 1 TABLET ORALLY ONCE A DAY MEDICATION LIST REVIEWED AND RECONCILED WITH THE PATIENT PAST MEDICAL HISTORY NEUROGENIC URINARY RETENTION RECURRENT UTI HYPERTENSION INCONTIENCE,GERD MIGRAINE HX OF HEPATITIS A SEIZURES CATARACTS DVT LEFT LEG TX XARELTO CAUSED GI BLEED/ ALLYSSA FILTER ILEUS [address] TURNER EGD AND COLONOSCOPY TYPE 2 DIABETES ASTHMA KIDNEY DISEASE ARTHRITIS CHF HAS MARCAINE/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 BACK THAT AT PRESENT TIME IS TURNED DOWN TO LOWEST SETTING JUST TO KEEP OPEN PNEUMONIA BASAL CELL CARCINOMA REMOVED FOR FACE LEFT EYE CYCSTS REMOVED ALLERGIES MORPHINE SULFATE: CONTINUOUS INFUSION--SEVERE ITCHING - ALLERGY PENTAZOCINE-NALOXONE: HIVES - ALLERGY CHLORPROMAZINE: HIVES - ALLERGY LORATADINE: HIVES - ALLERGY PENICILLIN (FOR ALLERGIES USE ONLY): HIVES - ALLERGY CEPHALOSPORINS: HIVES - ALLERGY SULFAMETHOXAZOLE-TMP DS: HIVES - ALLERGY NUCYNTA: RASH - ALLERGY SURGICAL HISTORY HYSTERECTOMY AGE 22 L4 -5 DISKECTOMY DIAPHRAGM PARALYZED- RIGHT LOWER LUNG R-BRADY 2013 HITAL HERNIA REPAIR LEFT ANKLE FX- FUSION INFUSAPORT REMOVED INFUSAPORT PLACED INFUSAPORT AND IMPLANTED PAIN PUMP RIGHT HIP REPLACEMENT BASAL CELL CARCINOMA REMOVED FROM FACE LEFT EYE CYSTS REMOVED FAMILY HISTORY FATHER: 80 YRS, DUE TO HEART ATTACK, STROKES, DIAGNOSED WITH HEART DISEASE, OTHER MOTHER: 59 YRS, DUE TO METASIS CANCER, CANCER SON(S): ALIVE 2 BROTHER(S) , 2 SISTER(S) - HEALTHY. 2 SON(S) - HEALTHY. 1 SON DUE TO SUICIDE AT AGE 34MOM LUNG AND LIVER CANCERFATHER-ANEURYSM. SOCIAL HISTORY GENERAL: TOBACCO USE ARE YOU A:NONSMOKER ALCOHOL SCREENING DID YOU HAVE A DRINK CONTAINING ALCOHOL IN THE PAST YEAR?NO POINTS0 INTERPRETATIONNEGATIVE RECREATIONAL DRUG USE DRUG USE?NO CAFFEINE CAFFEINE USE?NO COFFEE SEXUAL HX HAD SEX IN THE LAST 12 MONTHS (VAGINAL, ORAL, OR ANAL)?NO HAVE YOU EVER HAD AN STD?NO HIV / HEP-C SCREENING HIV TEST OFFERED TO PATIENT:NO HEP-C TEST OFFERED TO PATIENT:NO JAIN [id number] RELIGIOUS LANGUAGE LANGUAGES SPOKEN:SURINAMESE LEARNING BARRIERS / SPECIAL NEEDS CHANGE FROM LAST VISIT?NO BARRIERS TO LEARNING?NO HEARING IMPAIRED?NO VISION IMPAIRED?NO COGNITIVELY IMPAIRED?NO READINESS TO LEARN?YES LEARNING PREFERENCES?NO EMOTIONAL BARRIERS?NO SPECIAL DEVICES?NO SHOVEL OILER NEEDED?NO DOMESTIC VIOLENCE DO YOU FEEL SAFE IN YOUR ENVIRONMENT?YES OCCUPATION: RETIRED. DIET: CARBOHYDRATE CONTROLLED, NO CONCENTRATED SWEETS.. EXERCISE: NONE. MARITAL STATUS: .. OTHERS AT HOME: EX . PAIN CLINIC PFS, CLERGY, PUBLIC HEALTH REFERRALS PFS REFERRAL NEEDED?NO CLERGY REFERRAL NEEDED?NO PUBLIC HEALTH REFERRAL NEEDED?NO WAS THE PROVIDER NOTIFIED OF ANY PERTINENT INFO?NO HAS THE PATIENT BEEN EDUCATED REGARDING HIS/HER PLAN OF CARE?YES HAS THE PATIENT BEEN EDUCATED REGARDING PAIN, THE RISK FOR PAIN, THE IMPORTANCE OF EFFECTIVE PAIN MANAGEMENT, AND THE PAIN ASSESSMENT PROCESS?YES ADVANCE DIRECTIVE ADVANCE DIRECTIVE DISCUSSED WITH PATIENT:YES DECLINED INFO AND ASSISTANCE WITH HCP FORM AT THIS TIME. HAS MOL FORMREVIEWED WITH PT 05/08/18 1324 BV. HOSPITALIZATION/MAJOR DIAGNOSTIC PROCEDURE RELATED FOR SURGERY ADMITTED DUE TO TROUBLE BREATHING 2012 ADMITTED DUE TO CHF ADMITTED OTHER TIMES WELL DUE TO MIGRAINE, SEIZURES, AND ETC ADMITTED DUE TO COPD, CHF, BLOOD INFECTION 04/2015 ADMITTED FOR PORT PLACEMENT 06/2015 FALL 08/2015 PNEOMINA, FLU, CHF, HYPERGYLCEMIA, DEHYDRATION 05/2016 HAD TO HAVE BLOOD TRANSFUSION 04/2017 BLOOD TRANSFUSION 06/2017 SEVERE SOB, LIGHT-HEADEDNESS, CHF, DECREASED FE 08/2017 SEPSIS 04/2018 UTI 05/18/18 REVIEW OF SYSTEMS REVIEWED BY: PROVIDER: CHERIE SPENCER . CONSTITUTIONAL: ANY CHANGE IN YOUR MEDICAL CONDITION? NO . CHILLS NO . FEVER NO . INFECTION: DO YOU HAVE NEW INFECTIONS? NO . DO YOU HAVE HISTORY OF MRSA? NO . MUSCULOSKELETAL: ANY NEW PATTERNS OF PAIN OR NUMBNESS? YES, I JUST HURT, DON'T FEEL GOOD . GASTROENTEROLOGY: ANY NEW CHANGE IN BOWEL CONTROL? YES, PT C/O CONSTIPATION TX'D W STOOL SOFTENERS, ALL BETTER . GENITOURINARY: ANY NEW CHANGE IN BLADDER CONTROL? NO . IS THERE A CHANCE YOU COULD BE ? NO . HEMATOLOGY/LYMPH: DO YOU TAKE ANY BLOOD THINNERS? (FOR EXAMPLE- COUMADIN, PLAVIX, AGGRENOX, PLATEL, PRADAXA, OR XARELTO) YES, ELIQUIS . WHEN WAS YOUR LAST DOSE? DATE: TIME: . NEUROLOGY: HAVE YOU FALLEN IN THE PAST 12 MONTHS? YES, FELL INPT IN HOSPITAL, NOT SURE WHY . ANY NEW EXTREMITY NUMBNESS OR WEAKNESS? YES, GENERALIZED WEAKNESS . CARDIOLOGY: DO YOU HAVE A PACEMAKER OR DEFIBRILLATOR? NO . RESPIRATORY: HAVE YOU BEEN SICK IN THE PAST WEEK? YES, UTI TX'D INPT, FEELING A LITTLE BETTER . FEVER NO . FLU LIKE SYMPTOMS? NO . COUGH NO . INTEGUMENTARY: DO YOU HAVE ANY RASHES OR OPEN SORES? YES, SORES TO BUTTOCKS X 6 MOS . ALLERGIC/IMMUNO: ARE YOU ALLERGIC TO IV DYE? NO . ANY NEW ALLERGIES? NO . PSYCHIATRIC: DO YOU HAVE THOUGHTS OF HURTING YOURSELF OR SOMEONE ELSE? NO . ARE YOU ABUSED, NEGLECTED, OR IN AN UNSAFE ENVIRONMENT? NO . ENDOCRINOLOGY: ARE YOU DIABETIC? YES . OTHER: DO YOU NEED ANY PRESCRIPTIONS? NO . IF YES, PLEASE LIST: ____ . ANY NEW PROBLEMS WITH YOUR MEDICATIONS? YES, PT STATES SHE STARTED NUCYNTA AND DEVELOPED A RASH, PT STATES SHE WAS ADVISED TO STOP NUCYNTA, RASH STOPPED . WHEN DID YOU LAST EAT? ____ . WHEN DID YOU LAST DRINK? ____ . WHAT DID YOU LAST DRINK? ____ . NAME OF PERSON DRIVING YOU HOME? ____ . DO YOU HAVE ANY OTHER QUESTIONS OR CONCERNS YES, PT STATES SHE HAS HAD MEDICATION CHANGES 3 WEEKS AGO, NOT SURE WHAT SHE TAKES AND DOESN'T TAKE. PT ADVISED TO BRING IN ALL MEDS WITH HER TO NEXT APPT WITH US FOR MED RECONCILIATION. PT STATES SHE ANSWERED YES TO SOME QUESTIONS BY ACCIDENT, NO ARE CORRECT ANSWERS UPON REVIEW. EM . VITAL SIGNS WT 222 LBS, HT 67", BMI 34.77 INDEX, BP 124/62 MM HG, HR 73 /MIN, RR 18 /MIN, TEMP 96.9 F, OXYGEN SAT % 96%, NA INITIALS SC 14:58, REVIEWED BY: EM. EXAMINATION GENERAL EXAMINATION: GENERAL APPEARANCE:AWAKE,ALERT ,PLEAASANT . PSYCHAFFECT NORMAL . LUNGS:LUNG [place] ARE CLEAR TO AUSCULTATION BILATERALLY. GOOD MOVEMENT OF AIR . HEART:S1, S2 IN A REGULAR RATE AND RHYTHM. NO SIGNIFICANT MURMURS, RUBS OR GALLOPS NOTED . CERVICALTRIGGER POINTS: CERVICAL AND TRAPEZIUS BILAT..PAIN IS AGGREVATED WITH ROJM NECK. ASSESSMENTS CERVICALGIA - M54.2 (PRIMARY) MYALGIA, OTHER SITE - M79.18 TREATMENT CERVICALGIA CONTINUE PERCOCET TABLET, 5-325 MG, 1-2 TAB, ORALLY, EVERY 6 -8H PRN MDD6 #100 STOP NUCYNTA TABLET, 50 MG, 1 TABLET, ORALLY, EVERY 6 HRS PRN NOTES: TPI TRAPS/SCAPS BILAT, ISTOP REGISTRY REVIEWED AND DEMONSTRATES COMPLLIANCE. BRINGS IN MEDICATIONS WHICH IS APPROPRIATE FOR WHAT WAS DISPENSED. RECENT URINE TOXICOLOGY REVIEWED. NO UNAUTHORIZED MEDICATIONS. NO ILLICIT SUBSTANCES AND PRESCRIBED MEDICATIONS WERE PRESENT. , RISKS AND BENEFITS OF NARCOTIC/OPIOD MEDICATIONS WERE REVIEWED WITH PATIENT - THIS INCLUDES BUT IS NOT LIMITED TO RISK OF DEPENDANCE/DEVELOPMENT OF ADDICTION, MOOD DISTURBANCE AND DEPRESSION, OSTEOPOROSIS, HORMONAL AND LABIDAL CHANGES, RESPIRATORY DEPRESSION AND . PATIENT IS ADVISED NOT TO DRIVE OR DRINK ALCOHOL WHILE ON THESE MEDICATIONS. PROCEDURE CODES FA211 ESTABILISHED PATIENT [facility] CHARGE DISPOSITION & COMMUNICATION FOLLOW UP POST (REASON: TPI TRAPS/SCAPS BILAT) ELECTRONICALLY SIGNED BY TJ KELLER ON 06/29/2018 AT 12:48 PM EDT DISCLAIMER : THIS IS A VISIT SUMMARY EXTRACTED FROM THE [employer] CHART. IT IS NOT A COPY OF THE [employer] PROGRESS NOTE. EPHRAIMD
== END ==
LOC: M PAIN 14:45
PROVIDERS: ATTEND Nurse Practitioner Family
DX: M54.2 Cervicalgia (principal); M79.18 Myalgia, other site; R33.8 Other retention of urine; I11.0 Hypertensive heart disease with heart failure; R32 Unspecified urinary incontinence; K21.9 Gastro-esophageal reflux disease without esophagitis; H26.9 Unspecified cataract; G43.909 Migraine, unspecified, not intractable, without status migrainosus; E11.9 Type 2 diabetes mellitus without complications; J45.909 Unspecified asthma, uncomplicated; I50.9 Heart failure, unspecified; Z85.828 Personal history of other malignant neoplasm of skin; Z96.641 Presence of right artificial hip joint; Z88.5 Allergy status to narcotic agent; Z88.0 Allergy status to penicillin; Z88.2 Allergy status to sulfonamides; Z88.8 Allergy status to other drugs, medicaments and biological substances; Z88.1 Allergy status to other antibiotic agents; Z79.4 Long term (current) use of insulin; Z99.81 Dependence on supplemental oxygen; Z79.82 Long term (current) use of aspirin; Z79.01 Long term (current) use of anticoagulants; Z79.891 Long term (current) use of opiate analgesic; Z79.899 Other long term (current) drug therapy

== ENCOUNTER → 2018-07-11 | Outpatient (REF) | payer MEDICARE, MEDICAID ==
[~2018-07-11] MED LIST changes: -/ADVA50050; -/ADVA50050 IN; -/BISO10TA OR; -/BISO10TA PO; -/DULO30CA; -/GLIM2TA; -/METO25TA PO; -/MOXI40TA OR; -/ONDA4TA; -/ONDA4TA OR; -/SCOPPA TD; -/SCOPPA TOP; -/SUCR1TA OR; -/TIOT18INH INH; +ADVA1AER2; +ADVA1AER2 IN; -ALLO15TA GT; +ALLO300T2 GT; +AMAR1TAB5; -AMMO12CR4 EX; -AMMO12CR4 TOP; +AMMO12CR7 EX; +AMMO12CR7 TOP; -ASPI1TAB PO; +ASPI81TA26 PO; +AVEL1TAB2 OR; -BISO10TA PO; +BISO10TA13 PO; +CYMB1CAP5; -DULO30CA PO; +DULO30CA9 PO; +ELIQ5TAB PO; +ERYT1OIN26 OS; -ERYT5OPO OS; +METO-1; +METO1TAB84 PO; +MILKSUS3 PO; +ONDA-1; +ONDA-1 OR; +ONDA-227; +SCOP1PAT TD; +SCOP1PAT TOP; +SCOP1PAT2 TOP; +SUCR1TAB56 OR; -TOPR25TA; -TRAN1.5D2 TOP; -VANC125C2 PO; +VANC125C3 PO; +VERA120T4 PO; -VERA1TAB10 PO; +ZEBE1TAB OR; +ZEBE1TAB PO; -ZOFR8TAB
[2018-07-11 16:02] LABS: CALCIUM LEVEL 8.7 MG/DL (8.8-10.2); CREATININE FOR GFR 1.76 MG/DL (0.55-1.30); POTASSIUM SERUM 3.6 MEQ/L (3.5-5.1)
[2018-07-11 16:06] LABS: HEMATOCRIT 29.9 % (36.0-47.0); HEMOGLOBIN 8.3 g/dl (12.0-15.5); MEAN CORPUSCULAR HEMOGLOBIN 21.4 pg (27.0-33.0); MEAN CORPUSCULAR HGB CONC 27.8 g/dl (32.0-36.5); MEAN CORPUSCULAR VOLUME 77.1 fl (80.0-96.0); PLATELET COUNT, AUTOMATED 228 10^3/uL (150-450); RED BLOOD COUNT 3.88 10^6/uL (4.00-5.40); WHITE BLOOD COUNT 5.5 10^3/uL (4.0-10.0)
[2018-07-11 16:15] LABS: INR 1.07
[2018-07-11 16:16] LABS: PARTIAL THROMBOPLASTIN TIME 33.7 SECONDS (25.4-37.6)
== END ==
LOC: M LABDRWAD 15:50
PROVIDERS: ATTEND Urology
DX: N39.0 Urinary tract infection, site not specified (principal); R33.9 Retention of urine, unspecified; Z01.818 Encounter for other preprocedural examination

== ENCOUNTER → 2018-07-12 | Outpatient (CLI) | payer MEDICARE, MEDICAID ==
[~2018-07-12] MED LIST changes: +BUPIVACAINE HCL 0.25% 10 ML VIAL As Ordered ONE; +BUPIVACAINE HCL 0.25% 30 ML VIAL As Ordered ONE; +TRIAMCINOLONE ACETONIDE SUSP 40 MG/ML VIAL (J3301) As Ordered ONE
--- NOTE | 2018-07-31 00:38 | ECWPNPC ---
PATIENT NAME: SHIVANI PAYNE I : 1945 GENDER: FEMALE VISIT DATE: 07/12/2018 DISCHARGE DATE: 07/12/18 165 VISIT LOCKED DATE TIME: PHYSICIAN: JAIMEE TROTTER MD RESOURCE: JAIMEE TROTTER MD REASON FOR APPOINTMENT 1. TPI BILATERAL NECK/BILATERAL SHOULDERS HISTORY OF PRESENT ILLNESS HISTORY OF PRESENT ILLNESS: PAIN THE PATIENT DESCRIBES THE PAIN... FALL RISK SCREENING: SCREENING :NO FALLS REPORTED IN THE LAST YEAR CURRENT MEDICATIONS TAKING HUMALOG 100 UNIT/ML SOLUTION SLIDING SCALE SUBCUTANEOUS FOUR TIMES DAILY NEEDED, NOTES: 07/11 2199 TAKING TRESIBA 200 U/ML 120 UNITS SUBCUTANEOUSLY DAILY, NOTES: 07/11 699 TAKING BISOPROLOL FUMARATE 5 MG TABLET 1/2 TABLET ORALLY ONCE A DAY, NOTES: 07/12 699 TAKING ONDANSETRON 4 MG TABLET DISPERSIBLE 1 TABLET ON TONGUE ORALLY QID, NOTES: 07/12 699 TAKING ACETAMINOPHEN-CAFFEINE 500-65 MG TABLET 2 TABLETS NEEDED ORALLY THREE TIMES A DAY, NOTES: 07/11 2199 TAKING METOCLOPRAMIDE HCL 10 MG TABLET 1 TAB(S) ORALLY TID, NOTES: 07/12 699 TAKING OMEPRAZOLE 20 MG CAPSULE DELAYED RELEASE 1 CAPSULE ORALLY BID, NOTES: 07/12 699 TAKING SENNA 8.6-50 MG TABLET 2 TADS ORALLY BID, NOTES: 07/12 699 TAKING SPIRONOLACTONE 25 MG TABLET 1 TABLET ORALLY BID, NOTES: 07/12 699 TAKING SCOPOLAMINE BASE 1.5 MG PATCH 72 HOUR 1 PATCH TO SKIN NEEDED TRANSDERMAL , NOTES: LAST WEEK TAKING SUCRALFATE 1 GM/10ML SUSPENSION 10 ML ORALLY TWICE A DAY, NOTES: 07/12 699 TAKING POTASSIUM 20 MEQ 2 TABLETS ORAL ONCE DAILY, NOTES: 07/12 699 TAKING ALLOPURINOL 300 MG TABLET 1 TABLET ORALLY ONCE A DAY, NOTES: 07/08 TAKING COLCHICINE 0.6 MG TABLET 1 TABLET ORALLY ONCE A DAY, NOTES: 07/12 699 TAKING LACTULOSE 20 GM/30ML SOLUTION 30 ML ORALLY BID, NOTES: 07/12 699 TAKING LEVETIRACETAM 500 MG TABLET 1 TABLET ORALLY TWICE A DAY, NOTES: 07/12 699 TAKING OXYGEN 2 L NASAL CANNULA PRN, NOTES: LAST NIGHT TAKING NYSTATIN [id number] UNIT/GM CREAM 1 APPLICATION TO AFFECTED AREA EXTERNALLY TWICE A DAY, NOTES: 07/12 699 TAKING CRANBERRY 500 MG CAPSULE 1 CAP(S) ORALLY THREE TIMES A DAY, NOTES: 07/12 699 TAKING AMMONIUM LACTATE 12 % CREAM 1 APPLICATION TO AFFECTED AREA EXTERNALLY TWICE A DAY, NOTES: 07/12 699 TAKING AMITIZA 24 MCG CAPSULE 1 CAPSULE WITH FOOD ORALLY BEFORE BEDTIME, NOTES: 07/11 2199 TAKING VITAMIN D (ERGOCALCIFEROL) 44503 UNIT CAPSULE 1 CAPSULE ORALLY MONTHLY, NOTES: 07/03 TAKING TORSEMIDE 20 MG TABLET 3 TAB ORALLY TWICE DAILY, NOTES: 07/12 699 TAKING ROPINIROLE HCL 2 MG TABLET 1 TABLET 1 TO 3 HOURS BEFORE BEDTIME ORALLY BID, NOTES: 07/11 2199 TAKING ATORVASTATIN CALCIUM 10 MG TABLET 1 TABLET ORALLY ONCE A DAY, NOTES: 07/12 699 TAKING BENZONATATE 100 MG CAPSULE 1 CAPSULE NEEDED ORALLY THREE TIMES A DAY, NOTES: 07/12 699 TAKING BETAMETHASONE DIPROPIONATE 0.05 % LOTION 1 APPLICATION TO AFFECTED AREA EXTERNALLY ONCE A DAY, NOTES: 07/12 699 TAKING CALCITRIOL 0.25 MCG CAPSULE 1 CAPSULE ORALLY ONCE A DAY, NOTES: 07/12 699 TAKING DOCUSATE SODIUM 100 MG CAPSULE 1 CAPSULE NEEDED ORALLY ONCE A DAY, NOTES: 07/11 2199 TAKING DULOXETINE HCL 60 MG CAPSULE DELAYED RELEASE PARTICLES 1 CAPSULE ORALLY BID, NOTES: 07/12 699 TAKING MILK OF MAGNESIA 1200 MG/15ML SUSPENSION 5 ML NEEDED ORALLY FOUR TIMES A DAY, NOTES: NONE RECENT TAKING LYRICA 150 MG CAPSULE 1 CAPSULE ORALLY BID, NOTES: 07/12 699 TAKING ELIQUIS 5 MG TABLET 1 CAP ORALLY BID, NOTES: 07/11 1499 TAKING PERCOCET 5-325 MG TABLET 1-2 TAB ORALLY EVERY 6 -8H PRN MDD6 #100, NOTES: 07/11 2199 TAKING TAMSULOSIN HCL 0.4 MG CAPSULE 1 CAPSULE ORALLY ONCE A DAY, NOTES: 07/12 699 TAKING RESTASIS 0.05 % EMULSION 1 DROP INTO AFFECTED EYE OPHTHALMIC TWICE A DAY, NOTES: 07/12 699 NOT-TAKING TRIAMCINOLONE ACETONIDE 0.025 % CREAM 1 APPLICATION TO AFFECTED AREA EXTERNALLY THIGHS TWICE A DAY NOT-TAKING ALBUTEROL SULFATE (2.5 MG/3ML) 0.083% NEBULIZATION SOLUTION 3 ML NEEDED INHALATION THREE TIMES A DAY NOT-TAKING MACROBID 100 MG CAPSULE 1 CAPSULE WITH FOOD ORALLY EVERY 12 HRS NOT-TAKING ASPIRIN 81 MG TABLET 1 TABLET ORALLY ONCE A DAY NOT-TAKING ESTRADIOL 10 % CREAM NOT-TAKING OXYBUTYNIN CHLORIDE 5 MG TABLET 1 TABLET ORALLY TWICE A DAY NOT-TAKING LEVOFLOXACIN 500 MG TABLET 1 TABLET ORALLY ONCE A DAY NOT-TAKING DUONEB 1 DOSE VIA NEBULIZER TID NEEDED NOT-TAKING LEVAQUIN 500 MG TABLET 1 TABLET ORALLY ONCE A DAY MEDICATION LIST REVIEWED AND RECONCILED WITH THE PATIENT PAST MEDICAL HISTORY NEUROGENIC URINARY RETENTION RECURRENT UTI HYPERTENSION INCONTIENCE,GERD MIGRAINE HX OF HEPATITIS A SEIZURES CATARACTS DVT LEFT LEG TX XARELTO CAUSED GI BLEED/ ALLYSSA FILTER ILEUS [address] TURNER EGD AND COLONOSCOPY TYPE 2 DIABETES ASTHMA KIDNEY DISEASE ARTHRITIS CHF HAS MARCAINE/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 BACK THAT AT PRESENT TIME IS TURNED DOWN TO LOWEST SETTING JUST TO KEEP OPEN PNEUMONIA BASAL CELL CARCINOMA REMOVED FOR FACE LEFT EYE CYCSTS REMOVED EBLS ALLERGIES PENTAZOCINE-NALOXONE: HIVES - ALLERGY CHLORPROMAZINE: HIVES - ALLERGY LORATADINE: HIVES - ALLERGY PENICILLIN (FOR ALLERGIES USE ONLY): HIVES - ALLERGY CEPHALOSPORINS: HIVES - ALLERGY SULFAMETHOXAZOLE-TMP DS: HIVES - ALLERGY NUCYNTA: RASH - ALLERGY CLARITIN: HIVES - ALLERGY SURGICAL HISTORY HYSTERECTOMY AGE 22 L4 -5 DISKECTOMY DIAPHRAGM PARALYZED- RIGHT LOWER LUNG R-BRADY 2013 HITAL HERNIA REPAIR LEFT ANKLE FX- FUSION INFUSAPORT REMOVED INFUSAPORT PLACED INFUSAPORT AND IMPLANTED PAIN PUMP RIGHT HIP REPLACEMENT BASAL CELL CARCINOMA REMOVED FROM FACE LEFT EYE CYSTS REMOVED FAMILY HISTORY FATHER: 80 YRS, DUE TO HEART ATTACK, STROKES, DIAGNOSED WITH HEART DISEASE, OTHER MOTHER: 59 YRS, DUE TO METASIS CANCER, CANCER SON(S): ALIVE 2 BROTHER(S) , 2 SISTER(S) - HEALTHY. 2 SON(S) - HEALTHY. 1 SON DUE TO SUICIDE AT AGE 34\\\\\\\\NMOM LUNG AND LIVER CANCER\\\\\\\\NFATHER-ANEURYSM\\\\\\\\N. SOCIAL HISTORY GENERAL: TOBACCO USE ARE YOU A:NONSMOKER LATEX QUESTIONNAIRE LATEX ALLERGY : HAVE YOU EVER DEVELOPED ANY TYPE OF REACTION AFTER HANDLING LATEX PRODUCTS SUCH RUBBER GLOVES, CONDOMS, DIAPHRAGMS, BALLOONS, SOCKS, OR UNDERWEAR?NO LATEX ALLERGY : HAVE YOU EVER DEVELOPED ANY TYPE OF REACTION DURING OR AFTER DENTAL APPOINTMENT, VAGINAL/RECTAL EXAMINATION, SURGICAL PROCEDURE, OR ANY OTHER EXPOSURE?NO LATEX RISK : HAVE YOU EVER HAD ANY DIFFICULTY BREATHING OR HIVES AFTER EATING OR HANDLING ANY FRUITS, OR VEGETABLES; SUCH KIWI, BANANAS, STONE FRUITS, OR CHESTNUTSYES - PLEASE INDICATE : KIWI LATEX RISK : DO YOU HAVE A PREVIOUS PERSONAL HISTORY OF MORE THAN NINE SURGERIES, SPINA BIFIDA, OR REPEATED CATHERTIZATIONS? YES - PLEASE INDICATE : > 9 SURGERIES, REPEATED CATHETERIZATIONS LATEX RISK : ARE YOU FREQUENTLY EXPOSED TO LATEX PRODUCTS IN YOUR OCCUPATION?NO DATE ASKED : 07/12/2018 LUNG CANCER SCREENING SMOKING STATUS:NON SMOKER ALCOHOL SCREENING DID YOU HAVE A DRINK CONTAINING ALCOHOL IN THE PAST YEAR?NO POINTS0 INTERPRETATIONNEGATIVE RECREATIONAL DRUG USE DRUG USE?NO CAFFEINE CAFFEINE USE?NO COFFEE SEXUAL HX HAD SEX IN THE LAST 12 MONTHS (VAGINAL, ORAL, OR ANAL)?NO HAVE YOU EVER HAD AN STD?NO HIV / HEP-C SCREENING HIV TEST OFFERED TO PATIENT:NO HEP-C TEST OFFERED TO PATIENT:NO TAOISM [id number] LANGUAGES SPOKEN:[place] EDUCATION LEVEL OF EDUCATION:HIGH SCHOOL LEARNING BARRIERS / SPECIAL NEEDS CHANGE FROM LAST VISIT?NO BARRIERS TO LEARNING?NO HEARING IMPAIRED?NO VISION IMPAIRED?NO COGNITIVELY IMPAIRED?NO READINESS TO LEARN?YES LEARNING PREFERENCES?NO EMOTIONAL BARRIERS?NO SPECIAL DEVICES?NO LEADED GLASS INSTALLER NEEDED?NO DOMESTIC VIOLENCE DO YOU FEEL SAFE IN YOUR ENVIRONMENT?YES OCCUPATION: RETIRED. DIET: CARBOHYDRATE CONTROLLED, NO CONCENTRATED SWEETS.. EXERCISE: NONE. MARITAL STATUS: .. OTHERS AT HOME: EX . PAIN CLINIC PFS, CLERGY, PUBLIC HEALTH REFERRALS PFS REFERRAL NEEDED?NO CLERGY REFERRAL NEEDED?NO PUBLIC HEALTH REFERRAL NEEDED?NO WAS THE PROVIDER NOTIFIED OF ANY PERTINENT INFO? N/A HAS THE PATIENT BEEN EDUCATED REGARDING HIS/HER PLAN OF CARE?YES HAS THE PATIENT BEEN EDUCATED REGARDING PAIN, THE RISK FOR PAIN, THE IMPORTANCE OF EFFECTIVE PAIN MANAGEMENT, AND THE PAIN ASSESSMENT PROCESS?YES ADVANCE DIRECTIVE ADVANCE DIRECTIVE DISCUSSED WITH PATIENT:YES 07/12/18 STATES SHE HAS HCP:ELIZABETH PAYNE [phone] HAS MOLST FORMREVIEWED WITH PT 05/08/18 6043 BV. HOSPITALIZATION/MAJOR DIAGNOSTIC PROCEDURE RELATED FOR SURGERY ADMITTED DUE TO TROUBLE BREATHING 2012 ADMITTED DUE TO CHF ADMITTED OTHER TIMES WELL DUE TO MIGRAINE, SEIZURES, AND ETC ADMITTED DUE TO COPD, CHF, BLOOD INFECTION 04/2015 ADMITTED FOR PORT PLACEMENT 06/2015 FALL 08/2015 PNEOMINA, FLU, CHF, HYPERGYLCEMIA, DEHYDRATION 05/2016 HAD TO HAVE BLOOD TRANSFUSION 04/2017 BLOOD TRANSFUSION 06/2017 SEVERE SOB, LIGHT-HEADEDNESS, CHF, DECREASED FE 08/2017 SEPSIS 04/2018 UTI 05/18/18 REVIEW OF SYSTEMS REVIEWED BY: PROVIDER: . CONSTITUTIONAL: ANY CHANGE IN YOUR MEDICAL CONDITION? NO . CHILLS NO . FEVER NO . INFECTION: DO YOU HAVE NEW INFECTIONS? NO . DO YOU HAVE HISTORY OF MRSA? NO . MUSCULOSKELETAL: ANY NEW PATTERNS OF PAIN OR NUMBNESS? NO . GASTROENTEROLOGY: ANY NEW CHANGE IN BOWEL CONTROL? NO . GENITOURINARY: ANY NEW CHANGE IN BLADDER CONTROL? YES, HAS HUERTA CATH . IS THERE A CHANCE YOU COULD BE ? NO . HEMATOLOGY/LYMPH: DO YOU TAKE ANY BLOOD THINNERS? (FOR EXAMPLE- COUMADIN, PLAVIX, AGGRENOX, PLATEL, PRADAXA, OR XARELTO) YES, ELIQUIS . WHEN WAS YOUR LAST DOSE? DATE: TIME:07/11/18 . NEUROLOGY: HAVE YOU FALLEN IN THE PAST 12 MONTHS? YES 4 TIMES, NO MAJOR INJURIES . ANY NEW EXTREMITY NUMBNESS OR WEAKNESS? NO . CARDIOLOGY: DO YOU HAVE A PACEMAKER OR DEFIBRILLATOR? NO . RESPIRATORY: HAVE YOU BEEN SICK IN THE PAST WEEK? NO . FEVER NO . FLU LIKE SYMPTOMS? NO . COUGH NO . INTEGUMENTARY: DO YOU HAVE ANY RASHES OR OPEN SORES? NO . ALLERGIC/IMMUNO: ARE YOU ALLERGIC TO IV DYE? NO . ANY NEW ALLERGIES? YES, CLARITIN . PSYCHIATRIC: DO YOU HAVE THOUGHTS OF HURTING YOURSELF OR SOMEONE ELSE? NO . ARE YOU ABUSED, NEGLECTED, OR IN AN UNSAFE ENVIRONMENT? NO . ENDOCRINOLOGY: ARE YOU DIABETIC? YES FSBS AT 1230 WAS 246 . OTHER: DO YOU NEED ANY PRESCRIPTIONS? NO . IF YES, PLEASE LIST: ____ . ANY NEW PROBLEMS WITH YOUR MEDICATIONS? NO . WHEN DID YOU LAST EAT? 07/12 0730 . WHEN DID YOU LAST DRINK? 07/12 1200 . WHAT DID YOU LAST DRINK? WATER . NAME OF PERSON DRIVING YOU HOME? ELIZABETH PAYNE . DO YOU HAVE ANY OTHER QUESTIONS OR CONCERNS NO . VITAL SIGNS WT 225 LBS, HT 67", BMI 35.24 INDEX, BP 127/58 MM HG, HR 69 /MIN, RR 18 /MIN, TEMP 97.2 F, OXYGEN SAT % 97%, SAFE IN ENV? (Y/N) Y, NA INITIALS SC 14:21, REVIEWED BY: KEISHA. ASSESSMENTS MYALGIA, OTHER SITE - M79.18 (PRIMARY) PROCEDURES PN TRIGGER POINT INJECTION WITH STEROIDS PRE PROCEDURE DIAGNOSIS 1. MYALGIA 2. PAIN AT BILATERAL NECK AREA AND BILATERAL SHOULDER AREA. POST PROCEDURE DIAGNOSIS 1. MYALGIA 2. PAIN AT BILATERAL NECK AREA AND BILATERAL SHOULDER AREA. PROCEDURE TRIGGER POINT INJECTION AT BILATERAL NECK AREA AND BILATERAL SHOULDER AREA. SURGEON DR. JAIMEE TROTTER SALES CONSULTANT RESIDENTIAL MANAGER NONE ANESTHESIA LOCAL PRE PROCEDURE NOTE THE PATIENT HAS A HISTORY OF CHRONIC PAIN AT THE RIGHT AND LEFT NECK AREA AND RIGHT AND LEFT SHOULDER AREA. I EVALUATE THE PATIENT AND REVIEWED THE CHART. THERE IS EVIDENCE OF BANDS OF TISSUE WITH RESTRICTION OF MOVEMENT AND PRESENCE OF TRIGGER POINT AT THE AFFECTED AREA. I WENT OVER THE RISKS, ALTERNATIVES, AND BENEFITS ASSOCIATED WITH THIS PROCEDURE. THE PATIENT WOULD LIKE TO PROCEED AND GIVE CONSENT TO PERFORMED THE PROCEDURE. THE PATIENT DENIES UNEXPLAINABLE WEIGHT LOSS, FEVER, CHILLS, OR NEW CHANGES IN URINARY OR BOWEL CONTROL DESCRIPTION OF PROCEDURE THE PATIENT WAS BROUGHT TO THE PROCEDURE ROOM AND PLACED IN THE SITTING POSITION. THE AREA WAS CLEANED WITH ALCOHOL. THE PROCEDURE WAS DONE USING ASEPTIC STERILE TECHNIQUE. I CHECKED LATERALITY AND THE LEVEL WHERE THE PROCEDURE WAS GOING TO BE PERFORMED WITH THE PATIENT AND THE SUPPORTING STAFF AT THE MOMENT OF THE TIME OUT IN THE PROCEDURE ROOM. USING A 25-GAUGE NEEDLE, TRIGGER POINTS WERE INJECTED AT THE RIGHT AND LEFT NECK AREA AND RIGHT AND LEFT SHOULDER AREA WITH A TOTAL OF 40 ML OF BUPIVACAINE 0.25% AND KENALOG 40 MG. THERE WAS NO EVIDENCE OF BLOOD, PARESTHESIA OR CEREBROSPINAL FLUID DURING THE PROCEDURE. THE PATIENT WAS SENT TO THE RECOVERY ROOM. THE PATIENT WAS MOVING THE EXTREMITIES AND DOING WELL. THERE WAS NO COMPLICATION DURING THE PROCEDURE POST PROCEDURE NOTE THE PATIENT WILL BE SEEN IN A FOLLOW UP IN THE NEXT FEW WEEKS. INSTRUCTIONS WERE GIVEN, QUESTIONS WERE ANSWERED, AND THE PATIENT EXPRESSED UNDERSTANDING AND AGREES WITH THE PLAN. I, FACUNDO MORROW, DOCUMENTED THE ABOVE INFORMATION ACTING A SCRIBE FOR DR. TROTTER. I HAVE REVIEWED THE ABOVE DOCUMENT, WRITTEN BY FACUNDO SCOTT AND I VERIFY THAT IT IS ACCURATE. PROCEDURE CODES 19722 INJECT TRIGGER POINTS, =/> 3 DISPOSITION & COMMUNICATION FOLLOW UP 3 WEEKS ELECTRONICALLY SIGNED BY JAIMEE TROTTER MD, MD ON 07/30/2018 AT 07:03 PM EDT DISCLAIMER : THIS IS A VISIT SUMMARY EXTRACTED FROM THE [email or web address] CHART. IT IS NOT A COPY OF THE [email or web address] PROGRESS NOTE. JOSE R
== END ==
LOC: M PAIN 14:15
PROVIDERS: ATTEND Anesthesiology
DX: M79.18 Myalgia, other site (principal); M54.2 Cervicalgia; M25.511 Pain in right shoulder; M25.512 Pain in left shoulder; E11.22 Type 2 diabetes mellitus with diabetic chronic kidney disease; I13.0 Hypertensive heart and chronic kidney disease with heart failure and stage 1 through stage 4 chronic kidney disease, or unspecified chronic kidney disease; J45.909 Unspecified asthma, uncomplicated; N18.9 Chronic kidney disease, unspecified; K21.9 Gastro-esophageal reflux disease without esophagitis; M19.90 Unspecified osteoarthritis, unspecified site; I50.9 Heart failure, unspecified; G43.909 Migraine, unspecified, not intractable, without status migrainosus; R56.9 Unspecified convulsions; Z79.01 Long term (current) use of anticoagulants; Z79.4 Long term (current) use of insulin; Z79.891 Long term (current) use of opiate analgesic; Z79.899 Other long term (current) drug therapy; Z88.0 Allergy status to penicillin; Z88.8 Allergy status to other drugs, medicaments and biological substances; Z91.018 Allergy to other foods; Z86.79 Personal history of other diseases of the circulatory system; Z96.89 Presence of other specified functional implants; Z96.641 Presence of right artificial hip joint
CPT/HCPCS: 20553; J3301

== ENCOUNTER → 2018-07-18 | Outpatient (CLI) | payer MEDICARE, MEDICAID ==
[~2018-07-18] MED LIST changes: -BUPIVACAINE HCL 0.25% 10 ML VIAL As Ordered ONE; -BUPIVACAINE HCL 0.25% 30 ML VIAL As Ordered ONE; -TRIAMCINOLONE ACETONIDE SUSP 40 MG/ML VIAL (J3301) As Ordered ONE
--- NOTE | 2018-07-18 16:01 | REP ---
COMPARISON: 05/27/2018, a portable exam. There are chronic lung base changes, status quo. The technique utilized in obtaining the radiograph has magnified the cardiac silhouette and accentuated the interstitial markings. There is cardiomegaly accentuated by technique. The tip of the central venous catheter is in the superior vena cava, status quo. No definite acute patchy parenchymal opacities or pleural effusions have developed. IMPRESSION: Stable appearing chronic changes as described above, however, correlate clinically to rule out the possibility of acute basilar disease superimposed by chronic change. Electronically Signed by Garett Olsen DO 07/18/2018 04:08 P
== END ==
LOC: M ADAMS 14:44
PROVIDERS: ATTEND Urology
DX: Z01.818 Encounter for other preprocedural examination (principal); N39.0 Urinary tract infection, site not specified; R33.9 Retention of urine, unspecified; R91.8 Other nonspecific abnormal finding of lung field; I51.7 Cardiomegaly

== ENCOUNTER → 2018-07-21 | Outpatient (REF) | payer MEDICARE, MEDICAID | LOC: M SMT 16:46 | PROVIDERS: ATTEND Urology | DX: R33.9 Retention of urine, unspecified (principal) ==

== ENCOUNTER → 2018-07-27 | Outpatient (REF) | payer MEDICARE, MEDICAID ==
[2018-07-27 14:39] LABS: BASO # 0.1 10^3/uL (0.0-0.2); BASO % 0.8 % (0.0-1.0); EOS # 0.2 10^3/uL (0.0-0.50); EOS % 2.9 % (0.0-3.0); HEMATOCRIT 28.6 % (36.0-47.0); HEMOGLOBIN 7.5 g/dl (12.0-15.5); LYMPH # 2.2 10^3/uL (1.5-4.5); LYMPH % 27.2 % (24.0-44.0); MEAN CORPUSCULAR HEMOGLOBIN 20.2 pg (27.0-33.0); MEAN CORPUSCULAR HGB CONC 26.2 g/dl (32.0-36.5); MEAN CORPUSCULAR VOLUME 76.9 fl (80.0-96.0); MONO # 0.7 10^3/uL (0.0-0.8); MONO % 8.5 % (0.0-5.0); NEUTROPHILS # 4.8 10^3/uL (1.8-7.7); NEUTROPHILS % 60.1 % (36.0-66.0); PLATELET COUNT, AUTOMATED 195 10^3/uL (150-450); RED BLOOD COUNT 3.72 10^6/uL (4.00-5.40)
[2018-07-27 14:40] LABS: ALBUMIN 3.5 GM/DL (3.2-5.2); CALCIUM LEVEL 8.7 MG/DL (8.8-10.2); CREATININE FOR GFR 1.6 MG/DL (0.55-1.30); GLOMERULAR FILTRATION RATE 33.5 (>39); PHOSPHORUS LEVEL 3.9 MG/DL (2.5-4.9); POTASSIUM SERUM 3.9 MEQ/L (3.5-5.1); URIC ACID 4.4 MG/DL (2.6-6.0)
== END ==
LOC: M LAB REF 13:16
PROVIDERS: ATTEND Internal Medicine Nephrology
DX: N18.4 Chronic kidney disease, stage 4 (severe) (principal); M1A.30X0 Chronic gout due to renal impairment, unspecified site, without tophus (tophi); N25.81 Secondary hyperparathyroidism of renal origin; D63.1 Anemia in chronic kidney disease

== ENCOUNTER 2018-07-28 06:16 | Day surgery (SDC) | payer MEDICARE, MEDICAID ==
[~2018-07-28] VITALS: Ht 170.2 cm; Wt 102.1 kg
[~2018-07-28 06:16] MED LIST changes: +LIDOCAINE 1% MDV 20ML VIAL SQ PRN
[2018-07-28] MEDS ORDERED: VANCOMYCIN HCL 1,000 MG, VIAL MATE ADAPTER 1 EACH in D5W 250 ML IV ONE (06:30)
[2018-07-28] MEDS ORDERED: LR 1,000 ML IV SCH ×2 (06:30→10:00)
[2018-07-28] MEDS ORDERED: GENTAMICIN 80 MG in APPROPRIATE DILUENT 1 EA IV ONE (06:30)
[2018-07-28] MEDS ORDERED: LIDOCAINE 1% SDV INJ 30 ML VIAL As Ordered ONE (07:10)
[2018-07-28] MEDS ORDERED: BUPIVACAINE HCL 0.25% 30 ML VIAL As Ordered ONE (07:10)
[2018-07-28] MEDS ORDERED: HumaLOG INSULIN (NovoLOG) PER UNIT As Ordered ONE (07:16)
[2018-07-28] MEDS ORDERED: BICITRA 30ML SOLN UDC PO ONE (07:30)
[2018-07-28] MEDS ORDERED: HumaLOG INSULIN (NovoLOG) PER UNIT SC ONE ×2 (07:45→08:15)
[2018-07-28] MEDS ORDERED: MEROPENEM INJ 1 GM in APPROPRIATE DILUENT 1 EA IV ONE (07:45)
[2018-07-28] MEDS ORDERED: MIDAZOLAM INJ 2 MG/2 ML VIAL (J2250) As Ordered ONE (08:14)
[2018-07-28] MEDS ORDERED: fentaNYL 250 MCG/5 ML INJECTION (J3010) As Ordered ONE (08:14)
[2018-07-28] MEDS ORDERED: ROCURONIUM BROMIDE 50 MG/5 ML VIAL As Ordered ONE (08:14)
[2018-07-28] MEDS ORDERED: LIDOCAINE 2% INJ 100 MG/5 ML SDV (FOR ANES.) As Ordered ONE (08:14)
[2018-07-28] MEDS ORDERED: ONDANSETRON 4MG/2ML VIAL (J2405) As Ordered ONE (08:14)
[2018-07-28] MEDS ORDERED: ePHEDrine SULFATE 25 MG/5 ML(5MG/ML) SYRINGE As Ordered ONE (08:14)
[2018-07-28] MEDS ORDERED: dexameTHASONE 4 MG/ML 1ML VIAL (J1100) As Ordered ONE (08:14)
[2018-07-28] MEDS ORDERED: PROPOFOL 200 MG/20 ML VIAL As Ordered ONE (08:14)
[2018-07-28] MEDS ORDERED: PHENYLephrine HCL 500 MCG/5 ML (100MCG/ML) SYRINGE (J2370) As Ordered ONE ×2 (08:23→08:33)
[2018-07-28] MEDS ORDERED: NEOSTIGMINE 10 MG/10 ML VIAL (J2710) As Ordered ONE (08:44)
[2018-07-28] MEDS ORDERED: GLYCOPYRROLATE INJ 0.2 MG/ML 2 ML VIAL As Ordered ONE (08:44)
[2018-07-28] MEDS ORDERED: NORCO, ANEXSIA 5/325MG TABLET (HYDROcodone/ACETAMINOPHEN) As Ordered ONE (09:43)
[2018-07-28] MEDS ORDERED: PERCOCET 5MG/325MG TAB PO PRN ×2 (09:45)
[2018-07-28] MEDS: NORCO, ANEXSIA 5/325MG TABLET (HYDROcodone/ACETAMINOPHEN) PO PRN ×2 (09:45→10:15)
[2018-07-28] MEDS ORDERED: SODIUM CHLORIDE 0.9% INJ 10 ML SYR IV PRN (13:15)
[2018-07-28 13:23] VITALS: BP 130/64
[2018-07-29] MEDS ORDERED: SODIUM CHLORIDE 0.9% INJ 10 ML SYR IV SCH (09:00)
--- NOTE | 2018-07-31 20:53 | RO ---
DATE OF PROCEDURE: 07/28/2018 PREPROCEDURE DIAGNOSIS: Urinary retention. POSTPROCEDURE DIAGNOSIS: Urinary retention. PROCEDURE: Open cystotomy with suprapubic catheter placement. SURGEON: Dr. Yayo Rivera SENIOR LICENSING MANAGER: None. ANESTHESIA: General. OPERATIVE INDICATIONS: This is a 73-year-old female with urinary retention and recurrent urinary tract infections. She has been managed with a chronic urethral catheter. It was recommended we transition her to a suprapubic catheter. DESCRIPTION OF PROCEDURE: The patient was brought to the operating room and general anesthesia induced. Prophylactic antibiotics were infused. She was then placed in the supine position and prepped and draped in the usual sterile fashion. At this point, a 16-Sol[place] Islander Al catheter was inserted in through the urethra and the balloon was filled with 10 mL of sterile water. The catheter was clamped. I then made an approximately 4 cm suprapubic incision. We then dissected down through the subcutaneous tissues until we got to the rectus fascia. The fascia was then opened with electrocautery. Of note, at this point, we then filled the bladder with approximately 120 mL of normal saline and when doing this, the bladder was very evident at this point. We then dissected down through the perirectal fat and then I inserted a spinal needle and aspirated, and this confirmed that we were indeed looking at the bladder. At this point, a #3-0 chromic pursestring stitch was placed through the dome of the bladder. A cystotomy was then made in the middle of the first ring stitch. We then inserted a 20-Solomon Islander catheter into the cystotomy and filled the balloon with 7 mL of sterile water. The pursestring stitch was then tied down around the catheter. At this point, we then irrigated the operative field thoroughly with saline. After that was done, we then closed the fascia with a [id number] #1 and non-looped PDS sutures. After the fascia was closed, subcutaneous tissue was then irrigated again. We then reapproximated the subcutaneous tissues with interrupted #3-0 Vicryl suture. Skin was then closed around the suprapubic catheter with a running subcuticular #4-0 Monocryl suture. The catheter was further secured to the skin with a #2-0 Prolene suture. Once this was done, local anesthetic was applied and Dermabond was applied. The suprapubic catheter was then connected to gravity drainage, and the urethral catheter was removed and this marked the conclusion of the procedure. The patient was then awakened from anesthesia and transported to the recovery room in stable condition. Estimated blood loss: 5 mL. Complications: None. Specimens: None. PLAN: The patient will followup in the clinic in approximately 6 weeks for her first suprapubic catheter change.
== END 2018-07-28 13:20 | disposition home or self-care (01) ==
LOC: M SDC 06:16
PROVIDERS: ATTEND Urology
DX: R33.9 Retention of urine, unspecified (principal); I13.0 Hypertensive heart and chronic kidney disease with heart failure and stage 1 through stage 4 chronic kidney disease, or unspecified chronic kidney disease; I50.32 Chronic diastolic (congestive) heart failure; I48.91 Unspecified atrial fibrillation; N18.3 Chronic kidney disease, stage 3 (moderate); E11.65 Type 2 diabetes mellitus with hyperglycemia; E11.42 Type 2 diabetes mellitus with diabetic polyneuropathy; E11.22 Type 2 diabetes mellitus with diabetic chronic kidney disease; G47.33 Obstructive sleep apnea (adult) (pediatric); K57.30 Diverticulosis of large intestine without perforation or abscess without bleeding; K21.9 Gastro-esophageal reflux disease without esophagitis; D50.9 Iron deficiency anemia, unspecified; M12.9 Arthropathy, unspecified; R29.898 Other symptoms and signs involving the musculoskeletal system; F41.9 Anxiety disorder, unspecified; F32.9 Major depressive disorder, single episode, unspecified; R51 Headache; R06.83 Snoring; G25.81 Restless legs syndrome; J44.9 Chronic obstructive pulmonary disease, unspecified; Z88.0 Allergy status to penicillin; Z88.1 Allergy status to other antibiotic agents; Z88.2 Allergy status to sulfonamides; Z88.8 Allergy status to other drugs, medicaments and biological substances; Z91.048 Other nonmedicinal substance allergy status; Z79.899 Other long term (current) drug therapy; Z79.4 Long term (current) use of insulin; Z86.711 Personal history of pulmonary embolism; Z90.710 Acquired absence of both cervix and uterus; Z78.0 Asymptomatic menopausal state
CPT/HCPCS: 36415; 51040; 84132; J1100; J2250; J2370; J2405; J2710; J3010

== ENCOUNTER → 2018-08-07 | Outpatient (REF) | payer MEDICARE, MEDICAID ==
[~2018-08-07] MED LIST changes: -LIDOCAINE 1% MDV 20ML VIAL SQ PRN
== END ==
LOC: M LAB REF 16:59
PROVIDERS: ATTEND Internal Medicine Nephrology
DX: N18.4 Chronic kidney disease, stage 4 (severe) (principal); D63.1 Anemia in chronic kidney disease

== ENCOUNTER 2018-08-08 13:25 | Outpatient (CLI) | payer MEDICARE, MEDICAID ==
[2018-08-08] VITALS (8 sets, daily range): BP systolic 118–161; BP diastolic 56–69
[~2018-08-08] VITALS: Ht 165.1 cm; Wt 102.0 kg
== END 2018-08-08 19:25 | disposition home or self-care (01) ==
LOC: M INFU 13:25
PROVIDERS: ATTEND Internal Medicine Nephrology
DX: N18.3 Chronic kidney disease, stage 3 (moderate) (principal); M1A.30X0 Chronic gout due to renal impairment, unspecified site, without tophus (tophi); Z79.899 Other long term (current) drug therapy
CPT/HCPCS: 36430; P9016

== ENCOUNTER → 2018-08-16 | Outpatient (CLI) | payer MEDICARE, MEDICAID ==
--- NOTE | 2018-08-16 15:26 | REP ---
Anterior pelvic wall ultrasound: The patient had a suprapubic catheter placed on 07/28/2018 and complains of pain to the right of the suprapubic catheter: Ultrasonography over the area of pain identifies a focal fluid collection within the soft tissues measuring 4.1 by and 1.2 x 5.5 cm. This is nonspecific and could represent hematoma, urinoma or abscess. Electronically Signed by Sami Richter MD 08/16/2018 03:19 P
== END ==
LOC: M RAD 14:20
PROVIDERS: ATTEND Nurse Practitioner Family
DX: R10.9 Unspecified abdominal pain (principal); Z93.59 Other cystostomy status

== ENCOUNTER → 2018-08-25 | Outpatient (REF) | payer MEDICARE, MEDICAID ==
[2018-08-25 18:02] LABS: PERCENT SATURATION 5.4 % (13.2-45.0)
[2018-08-25 18:40] LABS: HEMATOCRIT 34.5 % (36.0-47.0)
== END ==
LOC: M LAB REF 17:10
PROVIDERS: ATTEND Nurse Practitioner Adult Health
DX: D64.9 Anemia, unspecified (principal)

== ENCOUNTER → 2018-09-08 | Outpatient (REF) | payer MEDICARE, MEDICAID ==
[~2018-09-08] MED LIST changes: +CYMB60CA3 PO; +ERTA1INJ3 IV
[2018-09-08 19:29] LABS: APPEARANCE, URINE HAZY (CLEAR); BACTERIA, URINE AUTO 2+ (NEGATIVE); BILIRUBIN, URINE AUTO NEGATIVE (NEGATIVE); BLOOD, URINE BLOOD 3+ (NEGATIVE); COLOR, URINE RED (YELLOW); GLUCOSE, URINE (UA) AUTO 3+ mg/dL (NEGATIVE); KETONE, URINE AUTO NEGATIVE (NEGATIVE); LEUKOCYTE ESTERASE, URINE AUTO 2+ (NEGATIVE); NITRITE, URINE AUTO NEGATIVE (NEGATIVE); PROTEIN, URINE AUTO 1+ mg/dL (NEGATIVE); RBC, URINE AUTO TNTC /HPF (0-3); SPECIFIC GRAVITY URINE AUTO 1.008 (1.002-1.035); SQUAMOUS EPITHELIAL CELL UR AU 0 /HPF (0-6); UROBILINOGEN, URINE AUTO 0.2 mg/dL (0.0-2.0); WBC, URINE AUTO 27 /HPF (0-3)
== END ==
LOC: M SMT 16:54
PROVIDERS: ATTEND Urology
DX: R33.9 Retention of urine, unspecified (principal); N39.0 Urinary tract infection, site not specified; Z93.59 Other cystostomy status

== ENCOUNTER → 2018-09-21 | Outpatient (REF) | payer MEDICARE, MEDICAID ==
[2018-09-21 19:25] LABS: BASO # 0.1 10^3/uL (0.0-0.2); BASO % 0.9 % (0.0-1.0); EOS # 0.2 10^3/uL (0.0-0.50); EOS % 4.1 % (0.0-3.0); HEMOGLOBIN 7.5 g/dl (12.0-15.5); LYMPH # 1.6 10^3/uL (1.5-4.5); LYMPH % 30.1 % (24.0-44.0); MEAN CORPUSCULAR HEMOGLOBIN 19.8 pg (27.0-33.0); MEAN CORPUSCULAR HGB CONC 26.8 g/dl (32.0-36.5); MEAN CORPUSCULAR VOLUME 74.1 fl (80.0-96.0); MONO # 0.5 10^3/uL (0.0-0.8); NEUTROPHILS # 2.9 10^3/uL (1.8-7.7); PLATELET COUNT, AUTOMATED 209 10^3/uL (150-450); RED BLOOD COUNT 3.78 10^6/uL (4.00-5.40); WHITE BLOOD COUNT 5.4 10^3/uL (4.0-10.0)
[2018-09-21 19:28] LABS: CALCIUM LEVEL 8.8 MG/DL (8.8-10.2); CREATININE FOR GFR 1.75 MG/DL (0.55-1.30); GLOMERULAR FILTRATION RATE 30.2 (>39); PERCENT SATURATION 3.3 % (13.2-45.0); POTASSIUM SERUM 3.5 MEQ/L (3.5-5.1)
== END ==
LOC: M LAB REF 18:26
PROVIDERS: ATTEND Internal Medicine
DX: D64.9 Anemia, unspecified (principal); N18.4 Chronic kidney disease, stage 4 (severe)

== ENCOUNTER 2018-09-25 14:33 | Inpatient (IN) | payer MEDICARE, MEDICAID ==
[~2018-09-25] VITALS: Ht 170.2 cm; Wt 110.0 kg
[~2018-09-25 14:33] MED LIST changes: -CYMB60CA3 PO; -ERTA1INJ3 IV
[2018-09-25] MEDS ORDERED: ONDANSETRON 4MG/2ML VIAL (J2405) IV PRN (16:30)
[2018-09-25] MEDS ORDERED: oxyCODONE 5MG TAB PO ONE (16:45)
[2018-09-25 16:46] LABS: BASO # 0.1 10^3/uL (0.0-0.2); BASO % 1.1 % (0.0-1.0); EOS # 0.1 10^3/uL (0.0-0.50); EOS % 2.9 % (0.0-3.0); HEMATOCRIT 25.2 % (36.0-47.0); LYMPH # 1.6 10^3/uL (1.5-4.5); LYMPH % 35.7 % (24.0-44.0); MEAN CORPUSCULAR HEMOGLOBIN 20.1 pg (27.0-33.0); MEAN CORPUSCULAR VOLUME 74.3 fl (80.0-96.0); MONO # 0.5 10^3/uL (0.0-0.8); MONO % 10.4 % (0.0-5.0); NEUTROPHILS # 2.2 10^3/uL (1.8-7.7); NEUTROPHILS % 49.5 % (36.0-66.0); PLATELET COUNT, AUTOMATED 192 10^3/uL (150-450); RED BLOOD COUNT 3.39 10^6/uL (4.00-5.40); WHITE BLOOD COUNT 4.5 10^3/uL (4.0-10.0)
[2018-09-25] MEDS ORDERED: SPIR-10 PO (16:55)
[2018-09-25] MEDS ORDERED: LYRI150C PO (16:55)
[2018-09-25] MEDS ORDERED: CYMB60CA3 PO (16:55)
[2018-09-25] MEDS ORDERED: TORS20TA2 PO (16:55)
[2018-09-25] MEDS ORDERED: ATEN25TA PO (16:55)
[2018-09-25] MEDS ORDERED: NYSTATIN OINTMENT 15 GM TOP PRN (17:00)
[2018-09-25] MEDS ORDERED: NYSTATIN CREAM 15 GM TOP PRN (17:00)
[2018-09-25 17:02] LABS: HEMOGLOBIN 6.8 g/dl (12.0-15.5)
--- NOTE | 2018-09-25 17:08 | HPEPDOC ---
General Date of Admission Sep 25, 2018 at 16:28 Date of Service: Sep 25, 2018 Chief Complaint The patient is a 73-year-old female who presented to the ER with nausea and dry heaves. History of Present Illness Patient is a 73-year-old female with a PMHx of PMHx of Asthma / COPD, Hx of DVT / PE, MATT on CPAP, Obesity hypoventilation, Paroxysmal A. fib, Diastolic CHF, HTN, DM2, DLP, Morbid obesity, CKD3, Gout, RLS, who presented to the emergency room with complaints of nausea associated with dry heaves. Patient has denied any actual vomiting. Patient reports that shes been expressing regular bowel movements. Denies any diarrhea. Patient does report some abdominal discomfort around her suprapubic catheter. Catheter was initially placed on 07/2018; it subsequently went for change on 09/08/[address] Rivera. Patient reports chills as well as sweats. Patient denies any chest pain. Does report some shortness of breath with exertion. Does report a nonproductive cough. She does report an intentional weight loss of approximately 50 pounds over 6 months duration. Patient reports loss of appetite. Home Medications Scheduled Allopurinol (Zyloprim) 300 Mg Tab, 300 MG PO DAILY, (Reported) Ammonium Lactate (Ammonium Lactate) 12 % Cre, 1 DOSE TOP BID, (Reported) APPLY TO LEGS/FEET Apixaban (Eliquis) 5 Mg Tablet, 5 MG PO BID, (Reported) Atenolol (Atenolol) 25 Mg Tablet, 25 MG PO BID, (Reported) Atorvastatin Calcium (Atorvastatin Calcium) 10 Mg Tab, 10 MG PO DAILY, (Reported) Betamethasone Mala (Betamethasone Valerate) 45 Gm Oint, 1 DOSE TOP QHS, (Reported) USES ON LEGS FOR HOTSPOTS Calcitriol (Calcitriol) 0.25 Mcg Cap, 0.25 MCG PO DAILY, (Reported) Colchicine (Colchicine) 0.6 Mg Tab, 0.6 MG PO DAILY, (Reported) Cyclosporine (Restasis) 0.05 % Emu, 1 DROP OU BID, (Reported) Docusate Sodium (Docusate Sodium) 100 Mg Cap, 100 MG PO BID, (Reported) Duloxetine Hcl (Cymbalta) 60 Mg Capsule.dr, 60 MG PO DAILY, (Reported) Ergocalciferol (Vitamin D2) (Vitamin D2) 50,000 Unit Cap, 50,000 UNIT PO MTHLY, (Reported) TAKES ON 1ST OF THE MONTH Insulin Degludec (Tresiba Flextouch U-100) 100 Unit/Ml Inj, 96 UNIT SC DAILY, (Reported) TAKES BEFORE BREAKFAST Insulin Human Lispro (Humalog) 1 Units/0.01 Ml Inj, 1 DOSE SC AC, (Reported) PER SLIDING SCALE < 70: TREAT LBS WITH 15 G CARBS 70 -90: 46, 46, 46 91-130: 52, 52, 52, 8 FOR NIGHT SNACK 131-150: 56, 56, 56, 10 FOR NIGHT SNACK 151-200: 60, 60, 60, 12 FOR NIGHT SNACK, 4 UNITS NPO 201-250: 66, 66, 66, 14 FOR NIGHT SNACK, 6 UNITS NPO 251-300: 72, 72, 72, 16 FOR NIGHT SNACK, 8 UNITS NPO 301-350: 78, 78, 78, 18 FOR NIGHT SNACK, 10 UNITS NPO 351-400: 82, 82, 82, 20 FOR NIGHT SNACK, 14 UNITS NPO 401-450: 86, 86, 86, 22 FOR NIGHT SNACK, 18 UNITS NPO > 450: 90, 90, 90, 24 FOR NIGHT SNACK, 22 UNITS NPO Levetiracetam (Levetiracetam ER) 500 Mg Lindsay, 500 MG PO BID, (Reported) Omeprazole (Omeprazole) 20 Mg Cap, 20 MG PO BID, (Reported) Pregabalin (Lyrica) 150 Mg Capsule, 150 MG PO BID, (Reported) Spironolactone (Spironolactone) 25 Mg Tablet, 25 MG PO DAILY, (Reported) Sucralfate (Sucralfate) 1 Gm Tab, 1 GM PO BID, (Reported) Torsemide (Torsemide) 20 Mg Tablet, 60 MG PO BID, (Reported) Triamcinolone Acet (Triamcinolone Acetonide 0.025% Crm) 1 Dose/80 Gm Cream, 1 DOSE TOP BID, (Reported) APPLIES ON THIGHS Scheduled PRN Acetaminophen (Tylenol Arthritis) 650 Mg Tab, 650 MG PO Q8H PRN for PAIN, (Reported) Albuterol Sulf (Albuterol Sulfate) 2.5 Mg/3 Ml Nebu, 2.5 MG INH Q4H PRN for SHORTNESS OF BREATH, (Reported) Halobetasol Propionate (Halobetasol Propionate) 0.05 % Cre, 1 DOSE TOP for RASH, (Reported) APPLIES UNDER FOLDS AND BREASTS Magnesium Hydroxide (Milk of Magnesia) 400 Mg/5 Ml Oral.susp, 30 ML PO DAILY PRN for CONSTIPATION, (Reported) Nystatin (Nystatin) 100,000 Unit/Gm Cre, 1 DOSE TOP BID PRN for RASH, (Reported) UNDER BREASTS AND GROIN AREA Nystatin (Nystatin Oint) 30 Gm Oint, 1 DOSE TOP TID PRN for RASH, (Reported) APPLIES AROUND VAGINAL AREA Ondansetron HCl (Ondansetron HCl) 4 Mg Tab, 4 MG PO QID PRN for NAUSEA OR VOMITING, (Reported) Allergies Coded Allergies: Cephalosporins (Verified Allergy, Intermediate, hives, 07/14/18) Penicillins (Verified Allergy, Intermediate, hives, 07/14/18) Sulfa (Sulfonamide Antibiotics) (Verified Allergy, Intermediate, hives, 07/14/18) chlorpromazine (Verified Allergy, Intermediate, hiives, 07/14/18) loratadine (Verified Allergy, Intermediate, hives, 07/14/18) pentazocine (Verified Allergy, Intermediate, hives, 07/14/18) TAPE (Verified Allergy, Unknown, band-aids, 07/14/18) methadone (Verified Allergy, Unknown, 09/25/18) HAS HAD DILAUDID AND DEMEROL IN THE PAST pregabalin (Verified Adverse Reaction, Intermediate, Hx Acute encephalopathy with high doses, 07/18/18) Hx Acute encephalopathy with high doses (150mg TID in May 2018), given concomitantly with morphine Past Medical History Medical History Asthma / COPD, Hx of DVT / PE, MATT on CPAP, Obesity hypoventilation, Paroxysmal A. fib, Diastolic CHF, HTN, DM2, DLP, Morbid obesity, CKD3, Gout, RLS Surgical History IVC filter placement Hysterectomy Right hip arthroplasty Left ankle ORIF Infusaport placement Arthroscopic sub-acromial decompression Suprapubic catheter placement Family History - Reviewed and non-contributory Social History - Denies the use of alcohol, tobacco or illicit drugs - Denies recent travel or sick contacts - Lives with in [place] - Occupation; [employer] Review of Systems Other systems 10 point review of systems complete, all negative otherwise stated in HPI Vital Signs - Vitals: BP 135/78, HR 67, RR 26, Sat 100%RA, Temp 96.9F - General: Lying in bed, No acute distress, Speaking in full sentences, AAOx3 - HEENT: NC, AT, PERRLA - CVS: +S1S2 - Lungs: Fair air entry bilaterally, No wheezing / rales / rhonchi - Abdomen: Soft, Non-distended, Tenderness around supra-pubic area, +Suprapubic catheter (site appears clean without erythema / drainage) - Extremities: No lower extremity edema, No calf tenderness - Neuro: No focal motor or sensory deficit - Skin: No visible rashes Laboratory Data Labs 24H Laboratory Tests 2 09/25/18 15:54: Immature Granulocyte % (Auto) 0.4, White Blood Count 4.5, Red Blood Count 3.39L, Hemoglobin 6.8*L, Hematocrit 25.2L, Mean Corpuscular Volume 74.3L, Mean Corpuscu lar Hemoglobin 20.1L, Mean Corpuscular Hemoglobin Concent 27.0L, Red Cell Distribution Width 18.8H, Platelet Count 192, Neutrophils (%) (Auto) 49.5, Lymphocytes (%) (Auto) 35.7, Monocytes (%) (Auto) 10.4H, Eosinophils (%) (Auto) 2.9, Basophils (%) (Auto) 1.1H, Neutrophils # (Auto) 2.2, Lymphocytes # (Auto) 1.6, Monocytes # (Auto) 0.5, Eosinophils # (Auto) 0.1, Basophils # (Auto) 0.1, Reticulocyte # (auto) 95.6H, Nucleated Red Blood Cells % (auto) 0.0, Percent Reticulocyte Count 2.8H, Reticulocyte Hemoglobin Equivalent 15.6L 09/25/18 16:47: CBC/BMP Laboratory Tests 09/25/18 15:54 Red Blood Count 3.39 L, Mean Corpuscular Volume 74.3 L, Mean Corpuscular Hemoglobin 20.1 L, Mean Corpuscular Hemoglobin Concent 27.0 L, Red Cell Distribution Width 18.8 H, Neutrophils (%) (Auto) 49.5, Lymphocytes (%) (Auto) 35.7, Monocytes (%) (Auto) 10.4 H, Eosinophils (%) (Auto) 2.9, Basophils (%) (Auto) 1.1 H, Neutrophils # (Auto) 2.2, Lymphocytes # (Auto) 1.6, Monocytes # (Auto) 0.5, Eosinophils # (Auto) 0.1, Basophils # (Auto) 0.1 Plan / VTE VTE Prophylaxis Ordered?: Yes Plan Plan Shortness of breath - likely 2/2 symptomatic anemia - Patient reports that shes been expressing palpitations of breath for several weeks - Patient has a history of iron deficiency anemia; cannot tolerate oral iron pills - History of iron infusions in the past without any current infusions since discharge in May - Baseline hemoglobin of approximately 11-12; currently hemoglobin is at 7.5 - Iron panel completed 4 days ago was consistent with iron deficiency anemia - Will repeat iron panel, reticulocyte count, B12, folate - Patient has consented for 2 units of blood Nausea and dry heaves - Patient has denied any vomiting - Lipase / Amylase negative - Reports that shes having difficulty eating any food - Will start Zofran PRN Supra-pubic discomfort; possibly 2/2 UTI - Patient has a history of E. Coli ESBL urinary tract infections - Patients recurrent urinary tract infections were thought to be secondary to urinary retention; she had a pubic catheter placed in July of this year - Suprapubic catheter changed on 09/08/2018 - Recent urine culture collected on 09/08/18 was consistent with Pseudomonas, Pediococcus, Gemella infection - Will repeat urinalysis and urine culture - Will start Meropenem given allergy profile Asthma / COPD - No evidence of exacerbation - c/w inhaled therapy as ordered Hx of DVT / PE - s/p IVC filter - will hold anticoagulation with Eliquis MATT on CPAP / Obesity hypoventilation - May allow home CPAP use Paroxysmal A. fib - c/w Atenolol - Will hold Eliquis (re: Low Hg) Diastolic CHF - No signs of fluid overload - c/w Spironolactone and Torsemide for now HTN - c/w Atenolol IDDM2 - Will c/w adjusted ISS based on outpatient regimen - Will c/w Long acting insulin at adjusted dose Neuropathy - c/w Pregabalin DLP - c/w Atorvastatin Morbid obesity - Complicating medical care CKD3 - Cr appears to be at baseline Gout - c/w Allopurinol RLS - Currently not on any medications GERD - c/w Omeprazole and Sucralfate DVT prophylaxis - Will hold Eliquis - c/w SCD / Sequentials GURVINDER LEONARD MD Sep 25, 2018 17:07
[2018-09-25] MEDS ORDERED: GLUCOSE 4 GM CHEW TABLET PO PRN (17:30)
[2018-09-25] MEDS ORDERED: HumaLOG INSULIN (NovoLOG) PER UNIT SC SCH (17:30)
[2018-09-25] MEDS ORDERED: DEXTROSE 50% 50 ML SYRINGE IV PRN (17:30)
[2018-09-25] MEDS ORDERED: GLUCAGON FOR INJ 1 MG VIAL (J1610) SC PRN (17:30)
[2018-09-25 17:39] LABS: ALBUMIN 3.2 GM/DL (3.2-5.2); ALT/SGPT 20 U/L (12-78); AMYLASE 25 U/L (25-115); BILIRUBIN,TOTAL 0.3 MG/DL (0.2-1.0); BLOOD UREA NITROGEN 22 MG/DL (7-18); CALCIUM LEVEL 8.8 MG/DL (8.8-10.2); CARBON DIOXIDE LEVEL 31 MEQ/L (21-32); CHLORIDE LEVEL 101 MEQ/L (98-107); CREATININE FOR GFR 1.24 MG/DL (0.55-1.30); FERRITIN 5 NG/ML (8-252); GLUCOSE, FASTING 292 MG/DL (70-100); IRON (FE) 14 UG/DL (50-170); LIPASE 103 U/L (73-393); MAGNESIUM LEVEL 2.3 MG/DL (1.8-2.4); POTASSIUM SERUM 3.3 MEQ/L (3.5-5.1); SODIUM LEVEL 140 MEQ/L (136-145); TOTAL IRON BINDING CAPACITY 466 UG/DL (250-450); TOTAL PROTEIN 6.3 GM/DL (6.4-8.2)
[2018-09-25 17:40] VITALS: BP 152/70
[2018-09-25] MEDS ORDERED: POTASSIUM CHLORIDE 10 MEQ SR TABLET PO ONE (18:30)
[2018-09-25] MEDS: MEROPENEM INJ 1 GM in APPROPRIATE DILUENT 1 EA IV SCH (18:30)
[2018-09-25 18:31] LABS: FOLATE 13.4 NG/ML (>5.4)
[2018-09-25 18:36] LABS: VITAMIN B12 LEVEL 820 PG/ML (247-911)
[2018-09-25] MEDS: HumaLOG INSULIN (NovoLOG) PER UNIT SC SCH ×2 (18:56→21:16)
[2018-09-25 20:00] VITALS: BP 150/62
[2018-09-25 20:14] LABS: CK-MB VALUE MASS < 1.0 NG/ML (<3.6); CPK CREATINE PHOSPHOKINASE 30 U/L (26-192); MB/CK RELATIVE INDEX 3.33 (< OR =4); TROPONIN I < 0.02 NG/ML (< 0.10)
[2018-09-25] MEDS ORDERED: APIXABAN 5 MG TAB (ELIQUIS) PO SCH (21:00)
[2018-09-25] MEDS: DOCUSATE SODIUM 100 MG CAP PO SCH (21:13)
[2018-09-25] MEDS: OMEPRAZOLE 20 MG CAP PO SCH (21:14)
[2018-09-25] MEDS: TORSEMIDE 20 MG TAB PO SCH (21:14)
[2018-09-25] MEDS: PREGABALIN 75 MG CAP(LYRICA) PO SCH (21:15)
[2018-09-25] MEDS: ATENOLOL 25 MG TAB PO SCH (21:15)
[2018-09-25] MEDS: SUCRALFATE 1 GM TAB PO SCH (21:15)
[2018-09-25] MEDS: levETIRAcetam **XR** 500 MG TABLET PO SCH (23:33)
[2018-09-25] MEDS: LACTIC ACID 12% LOTION 225 GM BTL TOP SCH (23:33)
[2018-09-25 23:59] VITALS: BP 131/62
[2018-09-26 02:36] LABS: HEMATOCRIT 33.9 % (36.0-47.0); MEAN CORPUSCULAR HEMOGLOBIN 22.4 pg (27.0-33.0); MEAN CORPUSCULAR HGB CONC 29.2 g/dl (32.0-36.5); MEAN CORPUSCULAR VOLUME 76.7 fl (80.0-96.0); PLATELET COUNT, AUTOMATED 200 10^3/uL (150-450); RED BLOOD COUNT 4.42 10^6/uL (4.00-5.40); WHITE BLOOD COUNT 7.4 10^3/uL (4.0-10.0)
[2018-09-26 02:38] LABS: HEMOGLOBIN 9.9 g/dl (12.0-15.5)
[2018-09-26 04:00] VITALS: BP 139/61
[2018-09-26] MEDS: MEROPENEM INJ 1 GM in APPROPRIATE DILUENT 1 EA IV SCH ×2 (05:18→17:22)
[2018-09-26 05:44] LABS: HEMATOCRIT 32.9 % (36.0-47.0); HEMOGLOBIN 9.5 g/dl (12.0-15.5); MEAN CORPUSCULAR HEMOGLOBIN 22.1 pg (27.0-33.0); MEAN CORPUSCULAR HGB CONC 28.9 g/dl (32.0-36.5); MEAN CORPUSCULAR VOLUME 76.5 fl (80.0-96.0); PLATELET COUNT, AUTOMATED 190 10^3/uL (150-450); WHITE BLOOD COUNT 7.3 10^3/uL (4.0-10.0)
[2018-09-26 06:02] LABS: CALCIUM LEVEL 8.2 MG/DL (8.8-10.2); CREATININE FOR GFR 1.17 MG/DL (0.55-1.30); GLOMERULAR FILTRATION RATE 48.1 (>39); POTASSIUM SERUM 3.3 MEQ/L (3.5-5.1)
[2018-09-26] MEDS ORDERED: HumaLOG INSULIN (NovoLOG) PER UNIT SC SCH (07:30)
[2018-09-26] MEDS ORDERED: POTASSIUM CHLORIDE 10 MEQ SR TABLET PO ONE (07:30)
[2018-09-26 08:00] VITALS: BP 144/68
[2018-09-26] MEDS: levETIRAcetam **XR** 500 MG TABLET PO SCH ×2 (08:48→20:11)
[2018-09-26] MEDS: TORSEMIDE 20 MG TAB PO SCH ×2 (08:49→20:12)
[2018-09-26] MEDS: PREGABALIN 75 MG CAP(LYRICA) PO SCH ×2 (08:49→20:11)
[2018-09-26] MEDS: ALLOPURINOL 300 MG TAB PO SCH (08:50)
[2018-09-26] MEDS: ATENOLOL 25 MG TAB PO SCH ×2 (08:50→20:15)
[2018-09-26] MEDS: ATORVASTATIN 10 MG TAB PO SCH (08:50)
[2018-09-26] MEDS: SUCRALFATE 1 GM TAB PO SCH ×2 (08:50→20:15)
[2018-09-26] MEDS: SPIRONOLACTONE 25 MG TAB PO SCH (08:50)
[2018-09-26] MEDS: COLCHICINE 0.6 MG TAB PO SCH (08:50)
[2018-09-26] MEDS: OMEPRAZOLE 20 MG CAP PO SCH ×2 (08:50→20:15)
[2018-09-26] MEDS: DOCUSATE SODIUM 100 MG CAP PO SCH ×2 (08:51→20:11)
[2018-09-26] MEDS: DULoxetine 30 MG CAP (CYMBALTA) PO SCH (08:51)
[2018-09-26] MEDS: LEVEMIR (INSULIN DETEMIR) 1 UNITS/0.01ML SC SCH (08:53)
[2018-09-26] MEDS: HumaLOG INSULIN (NovoLOG) PER UNIT SC SCH ×4 (08:54→20:15)
[2018-09-26] MEDS: LACTIC ACID 12% LOTION 225 GM BTL TOP SCH ×2 (08:54→20:16)
[2018-09-26] MEDS ORDERED: COLCHICINE 0.6 MG TAB PO SCH (09:00)
--- NOTE | 2018-09-26 10:12 | IPNPDOC ---
Date Seen The patient was seen on 09/26/18. Progress Note SUBJECTIVE: Patient is a 73-year-old female with a PMHx of PMHx of Asthma / COPD, Hx of DVT / PE, MATT on CPAP, Obesity hypoventilation, Paroxysmal A. fib, Diastolic CHF, HTN, DM2, DLP, Morbid obesity, CKD3, Gout, RLS, who presented to the emergency room with complaints of nausea associated with dry heaves. Patient has denied any actual vomiting. Patient reports that shes been experiencing regular bowel movements. Denies any diarrhea. Patient does report some abdominal discomfort around her suprapubic catheter. Catheter was initially placed on 07/2018; it subsequently went for change on 09/08/[address] Rivera. Patient reports chills as well as sweats. Patient was seen and examined at the bedside today. She denies any chest pain or dizziness / light-headedness. Reports improvement in her breathing and fatigue. Does report a nonproductive cough. Patient reports "burning pain" in feet. OBJECTIVE: PHYSICAL EXAMINATION: VITAL SIGNS: Please see below. General: Lying in bed sleeping, Patient appeared tired, No acute distress, AAOx3 - HEENT: NC, AT, PERRLA - CVS: +S1S2 - Lungs: Fair air entry bilaterally, no appreciable wheezing, rales or rhonchi - Abdomen: Soft, Non-distended, Tenderness around supra-pubic area still noted, +Suprapubic catheter (no drainage) - Extremities: LE are without any edema, No calf tenderness - Neuro: No focal motor or sensory deficit - Skin: No visible rashes LABORATORY DATA, IMAGING STUDIES, MICROBIOLOGY: Please see below. DVT prophylaxis ordered?: Yes. c/w SCD/ Sequentials ASSESSMENT AND PLAN: Patient is a 73-year-old female with a PMHx of PMHx of Asthma / COPD, Hx of DVT / PE, MATT on CPAP, Obesity hypoventilation, Paroxysmal A. fib, Diastolic CHF, HTN, DM2, DLP, Morbid obesity, CKD3, Gout, and RLS. PROBLEMS: 1. Shortness of breath - likely 2/2 symptomatic anemia - Patient reports that shes been experiencing shortness of breath for several weeks - Patient has a history of iron deficiency anemia; cannot tolerate oral iron pills - History of iron infusions in the past without any current infusions since discharge in May - Baseline hemoglobin of approximately 11-12; currently hemoglobin is at 9.5 - Iron panel completed 4 days ago was consistent with iron deficiency anemia - Reticulocyte Count is 1.2 - 2 units of blood transfused (09/26/18) - Will transfuse 1 additional unit of blood today 2. s/p Nausea and dry heaves - Patient has denied any vomiting - Lipase / Amylase negative - Reports that shes having difficulty eating any food but does have an appetite - c/w Zofran PRN 09/25/18 3. Supra-pubic discomfort - likely 2/2 UTI - Patient has a history of E. Coli ESBL urinary tract infections - Patients recurrent urinary tract infections were thought to be secondary to urinary retention; she had a pubic catheter placed in July of this year - Suprapubic catheter changed on 09/08/2018 - Recent urine culture collected on 09/08/18 was consistent with Pseudomonas, Pediococcus, Gemella infection - Urinalysis consistent with infection; Urine culture pending - c/w Meropenem given allergy profile (Day #2) 4. Asthma / COPD - No evidence of exacerbation - c/w inhaled therapy as ordered 5. Hx of DVT / PE - s/p IVC filter - will hold anticoagulation with Eliquis 6. MATT on CPAP / Obesity hypoventilation - May allow home CPAP use 7. Paroxysmal A. fib - c/w Atenolol - Will resume Eliquis 8. Diastolic CHF - No signs of fluid overload - c/w Spironolactone and Torsemide for now 9. HTN - c/w Atenolol 10. IDDM2 - c/w adjusted ISS based on outpatient regimen - c/w Long acting insulin at adjusted dose 11. Neuropathy - c/w Pregabalin 12. DLP - c/w Atorvastatin 13. Morbid obesity - Complicating medical care 14. CKD3 - Cr appears to be at baseline 15. Gout - c/w Allopurinol 16. RLS - Currently not on any medications GERD - c/w Omeprazole and Sucralfate DVT prophylaxis - Will resume Eliquis - c/w SCD / Sequentials DISPOSITION: - Patient is stable and comfortable. - She will be downgraded to Med-Surg today. VS, I&O, 24H, Fishbone Vital Signs/I&O Vital Signs Date Time Temp Pulse Resp B/P (MAP) Pulse Ox O2 Delivery O2 Flow Rate FiO2 09/26/18 08:50 70 144/68 09/26/18 08:00 97.7 16 92 09/25/18 17:33 Room Air I&O- Last 24 Hours up to 6 AM 09/26/18 06:00 Intake Total 960 ml Output Total 1900 ml Balance -940 ml Laboratory Data 24H LABS Laboratory Tests 2 09/25/18 15:54: Immature Granulocyte % (Auto) 0.4, White Blood Count 4.5, Red Blood Count 3.39L, Hemoglobin 6.8*L, Hematocrit 25.2L, Mean Corpuscular Volume 74.3L, Mean Corpuscular Hemoglobin 20.1L, Mean Corpuscular Hemoglobin Concent 27.0L, Red Cell Distribution Width 18.8H, Platelet Count 192, Neutrophils (%) (Auto) 49.5, Lymphocytes (%) (Auto) 35.7, Monocytes (%) (Auto) 10.4H, Eosinophils (%) (Auto) 2.9, Basophils (%) (Auto) 1.1H, Neutrophils # (Auto) 2.2, Lymphocytes # (Auto) 1.6, Monocytes # (Auto) 0.5, Eosinophils # (Auto) 0.1, Basophils # (Auto) 0.1, Reticulocyte # (auto) 95.6H, Nucleated Red Blood Cells % (auto) 0.0, Percent Reticulocyte Count 2.8H, Reticulocyte Hemoglobin Equivalent 15.6L, Anion Gap 8, Glomerular Filtration Rate 45.0, Blood Urea Nitrogen 22H, Creatinine 1.24, Sodium Level 140, Potassium Level 3.3L, Chloride Level 101, Carbon Dioxide Level 31, Calcium Level 8.8, Aspartate Amino Transf (AST/SGOT) 16, Alanine Aminotransferase (ALT/SGPT) 20, Total Creatine Kinase 30, Alkaline Phosphatase 81, Total Bilirubin 0.3, Total Protein 6.3L, Albumin 3.2, Magnesium Level 2.3, Iron Level 14L, Total Iron Binding Capacity 466H, Transferrin % Saturation 3.0L, Ferritin 5L, Creatine Kinase MB < 1.0, Creatine Kinase MB Relative Index 3.33, Troponin I < 0.02, Albumin/Globulin Ratio 1.03, Amylase Level 25, Lipase 103, Vitamin B12 Level 820, Folate 13.4 09/25/18 16:47: Lactic Acid Level 2.1*H 09/25/18 18:43: Bedside Glucose (Misc Panel) 269H 09/25/18 21:03: Bedside Glucose (Misc Panel) 173H 09/26/18 01:00: Lactic Acid Followup at 4 Hours 0.8 09/26/18 01:59: Urine Color YELLOW, Urine Appearance CLOUDYH, Urine pH 7.0, Urine Specific Mckinney 1.005, Urine Protein NEGATIVE, Urine Glucose (UA) NEGATIVE, Urine Ketones NEGATIVE, Urine Blood NEGATIVE, Urine Nitrite NEGATIVE, Urine Bilirubin NEGATIVE, Urine Urobilinogen 0.2, Urine Leukocyte Esterase 3+H, Urine WBC (Auto) 100H, Urine RBC (Auto) 12H, Urine Hyaline Casts (Auto) 0, Urine Bacteria (Auto) 3+H, Urine Squamous Epithelial Cells 0, Urine Amorphous Sediment SMALLH, Urine Mucus (Auto) SMALL, Urine Yeast-Like Cells (Auto) LARGEH, Urine Sperm (Auto) 09/26/18 02:30: Nucleated Red Blood Cells % (auto) 0.0 09/26/18 05:18: Nucleated Red Blood Cells % (auto) 0.0, Anion Gap 5L, Glomerular Filtration Rate 48.1, Blood Urea Nitrogen 19H, Creatinine 1.17, Sodium Level 144, Potassium Level 3.3L, Chloride Level 106, Carbon Dioxide Level 33H, Calcium Level 8.2L 09/26/18 07:40: Bedside Glucose (Misc Panel) 117H CBC/BMP Laboratory Tests 09/25/18 15:54 Red Blood Count 3.39 L, Mean Corpuscular Volume 74.3 L, Mean Corpuscular Hemoglobin 20.1 L, Mean Corpuscular Hemoglobin Concent 27.0 L, Red Cell Distribution Width 18.8 H, Neutrophils (%) (Auto) 49.5, Lymphocytes (%) (Auto) 35.7, Monocytes (%) (Auto) 10.4 H, Eosinophils (%) (Auto) 2.9, Basophils (%) (Auto) 1.1 H, Neutrophils # (Auto) 2.2, Lymphocytes # (Auto) 1.6, Monocytes # (Auto) 0.5, Eosinophils # (Auto) 0.1, Basophils # (Auto) 0.1, Calcium Level 8.8, Aspartate Amino Transf (AST/SGOT) 16, Alanine Aminotransferase (ALT/SGPT) 20, Total Creatine Kinase 30, Alkaline Phosphatase 81, Total Bilirubin 0.3, Total Protein 6.3 L, Albumin 3.2 09/26/18 02:30 Red Blood Count 4.42, Mean Corpuscular Volume 76.7 L, Mean Corpuscular Hemoglobin 22.4 L, Mean Corpuscular Hemoglobin Concent 29.2 L, Red Cell Distribution Width 18.0 H 09/26/18 05:18 Red Blood Count 4.30, Mean Corpuscular Volume 76.5 L, Mean Corpuscular Hemoglobin 22.1 L, Mean Corpuscular Hemoglobin Concent 28.9 L, Red Cell Distribution Width 18.1 H, Calcium Level 8.2 L Microbiology Microbiology 09/26/18 Urine Culture, Received Pending GME ATTESTATION GME ATTESTATION My faculty preceptor for this patient encounter was physically present during the encounter and was fully available. All aspects of the patient interview, examination, medical decision making process, and medical care plan development were reviewed and approved by the faculty preceptor. The faculty preceptor is aware and concurs with the plan as stated in the body of this note and will attest to such by his/her cosignature. ATTENDING NOTE I, Seymour Leonard, have independently examined this patient and performed my own physical exam, as well as reviewed the documentation and edited where necessary. I have discussed in detail with the resident / student the findings and plan of treatment as documented by the resident / student and edited their note. I agree with their findings and treatment plan and have edited their documentation. I will continue to follow the patient during this hospital stay. CHRISTIANA VILLEGAS S-3 Sep 26, 2018 10:12 SEYMOUR LEONARD MD Sep 26, 2018 13:38
[2018-09-26] MEDS: ACETAMINOPHEN TAB 650MG DOSE (2X325MG) PO PRN ×3 (13:23→21:18)
[2018-09-26] MEDS: APIXABAN 5 MG TAB (ELIQUIS) PO SCH ×2 (15:08→20:12)
[2018-09-26 15:25] LABS: HEMATOCRIT 37.5 % (36.0-47.0)
[2018-09-26 16:00] VITALS: BP 138/72
[2018-09-26 20:00] VITALS: BP 119/103
[2018-09-26 20:30] VITALS: BP 116/62
[2018-09-26] MEDS: PERCOCET 5MG/325MG TAB PO PRN (23:19)
[2018-09-26 23:59] VITALS: BP 130/58
[2018-09-27 04:00] VITALS: BP 122/59
[2018-09-27] MEDS ORDERED: SODIUM CHLORIDE 0.9% INJ 10 ML SYR IV PRN (04:15)
[2018-09-27] MEDS: MEROPENEM INJ 1 GM in APPROPRIATE DILUENT 1 EA IV SCH (05:31)
[2018-09-27] MEDS: ACETAMINOPHEN TAB 650MG DOSE (2X325MG) PO PRN (05:34)
[2018-09-27 05:55] LABS: HEMATOCRIT 37.1 % (36.0-47.0); HEMOGLOBIN 10.9 g/dl (12.0-15.5); MEAN CORPUSCULAR HEMOGLOBIN 22.8 pg (27.0-33.0); MEAN CORPUSCULAR HGB CONC 29.4 g/dl (32.0-36.5); MEAN CORPUSCULAR VOLUME 77.5 fl (80.0-96.0); PLATELET COUNT, AUTOMATED 203 10^3/uL (150-450); RED BLOOD COUNT 4.79 10^6/uL (4.00-5.40); WHITE BLOOD COUNT 6.7 10^3/uL (4.0-10.0)
[2018-09-27 06:21] LABS: CALCIUM LEVEL 8.4 MG/DL (8.8-10.2); CREATININE FOR GFR 1.65 MG/DL (0.55-1.30); GLOMERULAR FILTRATION RATE 32.4 (>39)
[2018-09-27] MEDS ORDERED: IRON SUCROSE 100MG 5ML VIAL (J1756 PER 1MG) IV ONE (07:30)
[2018-09-27] MEDS: PERCOCET 5MG/325MG TAB PO PRN ×2 (07:45→13:46)
[2018-09-27 08:00] VITALS: BP 121/57
[2018-09-27] MEDS: HumaLOG INSULIN (NovoLOG) PER UNIT SC SCH ×2 (08:29→12:45)
[2018-09-27] MEDS: LEVEMIR (INSULIN DETEMIR) 1 UNITS/0.01ML SC SCH (08:30)
[2018-09-27] MEDS: OMEPRAZOLE 20 MG CAP PO SCH (08:30)
[2018-09-27] MEDS: DULoxetine 30 MG CAP (CYMBALTA) PO SCH (08:30)
[2018-09-27 08:31] VITALS: BP 155/79
[2018-09-27] MEDS: ATENOLOL 25 MG TAB PO SCH (08:31)
[2018-09-27] MEDS: APIXABAN 5 MG TAB (ELIQUIS) PO SCH (08:31)
[2018-09-27] MEDS: DOCUSATE SODIUM 100 MG CAP PO SCH (08:31)
[2018-09-27] MEDS: SUCRALFATE 1 GM TAB PO SCH (08:31)
[2018-09-27] MEDS: ATORVASTATIN 10 MG TAB PO SCH (08:31)
[2018-09-27] MEDS: SPIRONOLACTONE 25 MG TAB PO SCH (08:31)
[2018-09-27] MEDS: ALLOPURINOL 300 MG TAB PO SCH (08:31)
[2018-09-27] MEDS: COLCHICINE 0.6 MG TAB PO SCH (08:32)
[2018-09-27] MEDS: TORSEMIDE 20 MG TAB PO SCH (08:32)
[2018-09-27] MEDS: levETIRAcetam **XR** 500 MG TABLET PO SCH (08:32)
[2018-09-27] MEDS: LACTIC ACID 12% LOTION 225 GM BTL TOP SCH (08:33)
[2018-09-27] MEDS: PREGABALIN 75 MG CAP(LYRICA) PO SCH (08:33)
[2018-09-27] MEDS ORDERED: SODIUM CHLORIDE 0.9% INJ 10 ML SYR IV SCH (09:00)
[2018-09-27] MEDS ORDERED: IRON SUCROSE 200 MG in NS 100 ML OVER 1 HR IV ONE (09:00)
[2018-09-27] MEDS ORDERED: ERTA1INJ3 IV (10:02)
--- NOTE | 2018-09-27 10:43 | IPNPDOC ---
Text Note Date of Service The patient was seen on 09/27/18. NOTE Subjective: Patient is a 73-year-old female with a PMHx of PMHx of Asthma / COPD, Hx of DVT / PE, MATT on CPAP, Obesity hypoventilation, Paroxysmal A. fib, Diastolic CHF, HTN, DM2, DLP, Morbid obesity, CKD3, Gout, RLS, who presented to the emergency room with complaints of nausea associated with dry heaves. Patient has denied any actual vomiting. Patient reports that shes been expressing regular bowel movements. Denies any diarrhea. Patient does report some abdominal discomfort around her suprapubic catheter. Catheter was initially placed on 07/2018; it subsequently went for change on 09/08/[address] Rivera. Patient was admitted to hospital service for further evaluation, treatment for her symptomatically anemia and urinary tract infection. Patient was seen and examined at the bedside. Patient reports that she's feeling significantly better. She denies any significant shortness of breath, chest pain or palpitations. She denies nausea, vomiting, abdominal pain, constipation or diarrhea. Objective: Vitals (See below) General: Lying in bed, no acute distress, comfortable, AAOx3 HEENT: NC, AT CVS: +S1S2 Lungs: Fair air entry b/l, auscultation is without rhonchi, rales, wheezing Abdomen: Soft, ND, NT, + Suprapubic catheter Extremities: - Edema, - Calf tenderness Assessment and plan: Shortness of breath - likely 2/2 symptomatic anemia - Patient reports that shes been experiencing palpitations of breath for several weeks; has a history of iron deficiency anemia; cannot tolerate oral iron pills - History of iron infusions in the past without any current infusions since discharge in May - Baseline hemoglobin of approximately 11-12; currently has improved after transfusions - Iron panel consistent with deficiency - s/p 3 units PRBC - Will provide iron infusion today; will need to continue to have iron infusions as an outpatient with Dr. Villalobos s/p Nausea and dry heaves - Lipase / Amylase negative - c/w Zofran PRN s/p Supra-pubic discomfort; likely 2/2 UTI - likely 2/2 complicated pseudomonas UTI in the setting of a supra-pubic catheter - Patient has a history of E. Coli ESBL urinary tract infections - Patients recurrent urinary tract infections were thought to be secondary to urinary retention; she had a pubic catheter placed in July of this year - Suprapubic catheter changed on 09/08/2018 - Recent urine culture collected on 09/08/18 was consistent with Pseudomonas, Pediococcus, Gemella infection - Urinalysis consistent with infection; Urine culture was contaminated - c/w Meropenem as inaptient; will discharge with Ertapenem 1 g IV (via Infusapo rt) for completion of 10 days total antibiotics Asthma / COPD - No evidence of exacerbation - c/w inhaled therapy as ordered Hx of DVT / PE - s/p IVC filter - c/w Eliquis MATT on CPAP / Obesity hypoventilation - May allow home CPAP use Paroxysmal A. fib - c/w Atenolol - c/w Eliquis Diastolic CHF - No signs of fluid overload - c/w Spironolactone and Torsemide for now HTN - c/w Atenolol IDDM2 - c/w adjusted ISS based on outpatient regimen - c/w Long acting insulin at adjusted dose Neuropathy - c/w Pregabalin DLP - c/w Atorvastatin Morbid obesity - Complicating medical care CKD3 - Cr appears to be at baseline Gout - c/w Allopurinol RLS - Currently not on any medications GERD - c/w Omeprazole and Sucralfate DVT prophylaxis - c/w Eliquis VS,Fishbone, I+O VS, Fishbone, I+O Laboratory Tests 09/26/18 15:02 09/27/18 05:37 Red Blood Count 4.79, Mean Corpuscular Volume 77.5 L, Mean Corpuscular Hemoglobin 22.8 L, Mean Corpuscular Hemoglobin Concent 29.4 L, Red Cell Distribution Width 18.6 H, Calcium Level 8.4 L Vital Signs Date Time Temp Pulse Resp B/P (MAP) Pulse Ox O2 Delivery O2 Flow Rate FiO2 09/27/18 08:31 91 155/79 09/27/18 08:15 18 09/27/18 08:00 97.5 99 09/25/18 17:33 Room Air I&O- Last 24 Hours up to 6 AM 09/27/18 06:00 Intake Total 2050 ml Output Total 1350 ml Balance 700 ml GURVINDER LEONARD MD Sep 27, 2018 10:43
--- NOTE | 2018-09-27 14:45 | DS.PDOC ---
Discharge Summary General Date of Admission Sep 25, 2018 at 16:28 Date of Discharge 09/27/2018 Discharge Summary PROCEDURES PERFORMED DURING STAY: [None]. ADMITTING DIAGNOSES / DISCHARGE DIAGNOSES: Shortness of breath - likely 2/2 symptomatic anemia - likely 2/2 chronic iron deficiency anemia s/p Nausea and dry heaves s/p Supra-pubic discomfort; likely 2/2 UTI - likely 2/2 complicated pseudomonas UTI in the setting of a supra-pubic catheter Asthma / COPD Hx of DVT / PE MATT on CPAP / Obesity hypoventilation Paroxysmal A. fib Diastolic CHF HTN IDDM2 Neuropathy DLP Morbid obesity CKD3 Gout RLS GERD DVT prophylaxis COMPLICATIONS/CHIEF COMPLAINT: Shortness of breath / Fatigue Abdominal pain / Recently abnormal UA HISTORY OF PRESENT ILLNESS: Patient is a 73-year-old female with a PMHx of PMHx of Asthma / COPD, Hx of DVT / PE, MATT on CPAP, Obesity hypoventilation, Paroxysmal A. fib, Diastolic CHF, HTN, DM2, DLP, Morbid obesity, CKD3, Gout, RLS, who presented to the emergency room with complaints of nausea associated with dry heaves. Patient has denied any actual vomiting. Patient reports that shes been expressing regular bowel movements. Denies any diarrhea. Patient does report some abdominal discomfort around her suprapubic catheter. Catheter was initially placed on 07/2018; it subsequently went for change on 09/08/[address] Rivera. Patient was admitted to hospital service for further evaluation, treatment for her symptomatically anemia and urinary tract infection. HOSPITAL COURSE: Shortness of breath - likely 2/2 symptomatic anemia - Patient reports that shes been experiencing palpitations of breath for several weeks; has a history of iron deficiency anemia; cannot tolerate oral iron pills - History of iron infusions in the past without any current infusions since discharge in May - Baseline hemoglobin of approximately 11-12; currently has improved after transfusions - Iron panel consistent with deficiency - Occult negative - s/p 3 units PRBC - Will provide iron infusion today; will need to continue to have iron infusions as an outpatient with Dr. Villalobos s/p Nausea and dry heaves - Lipase / Amylase negative - c/w Zofran PRN s/p Supra-pubic discomfort; likely 2/2 UTI - likely 2/2 complicated pseudomonas UTI in the setting of a supra-pubic catheter - Patient has a history of E. Coli ESBL urinary tract infections - Patients recurrent urinary tract infections were thought to be secondary to urinary retention; she had a pubic catheter placed in July of this year - Suprapubic catheter changed on 09/08/2018 - Recent urine culture collected on 09/08/18 was consistent with Pseudomonas, Pediococcus, Gemella infection - Urinalysis consistent with infection; Urine culture was contaminated - c/w Meropenem as inpatient; will discharge with Ertapenem 1 g IV (via [facility]) for completion of 10 days total antibiotics - Will have outpatient f/u with Dr. Art within 7 days Asthma / COPD - No evidence of exacerbation - c/w inhaled therapy as ordered Hx of DVT / PE - s/p IVC filter - c/w Eliquis MATT on CPAP / Obesity hypoventilation - May allow home CPAP use Paroxysmal A. fib - c/w Atenolol - c/w Eliquis Diastolic CHF - No signs of fluid overload - c/w Spironolactone and Torsemide for now HTN - c/w Atenolol IDDM2 - c/w adjusted ISS based on outpatient regimen - c/w Long acting insulin at adjusted dose Neuropathy - c/w Pregabalin DLP - c/w Atorvastatin Morbid obesity - Complicating medical care CKD3 - Cr appears to be at baseline Gout - c/w Allopurinol RLS - Currently not on any medications GERD - c/w Omeprazole and Sucralfate DVT prophylaxis - c/w Eliquis DISCHARGE MEDICATIONS: Please see below. ALLERGIES: Please see below. PHYSICAL EXAMINATION ON DISCHARGE: Vitals (See below) General: Lying in bed, no acute distress, comfortable, AAOx3 HEENT: NC, AT CVS: +S1S2 Lungs: Fair air entry b/l, auscultation is without rhonchi, rales, wheezing Abdomen: Soft, ND, NT, + Suprapubic catheter Extremities: - Edema, - Calf tenderness LABORATORY DATA: Please see below. ACTIVITY: [As tolerated]. DISCHARGE PLAN: Follow up with Dr. Solomon Villalobos and Dr. Art within 7 days Remain compliant with treatment plan and medications Return to the ER if you experience any problems DISPOSITION: Home with services DISCHARGE CONDITION: [Stable]. TIME SPENT ON DISCHARGE: 35 minutes Vital Signs/I&Os Vital Signs Date Time Temp Pulse Resp B/P (MAP) Pulse Ox O2 Delivery O2 Flow Rate FiO2 09/27/18 13:46 18 09/27/18 08:31 91 155/79 09/27/18 08:00 97.5 99 09/25/18 17:33 Room Air I&O- Last 24 Hours up to 6 AM 09/27/18 06:00 Intake Total 2050 ml Output Total 1350 ml Balance 700 ml Laboratory Data Labs 24H Laboratory Tests 2 09/26/18 16:39: Bedside Glucose (Misc Panel) 243H 09/26/18 20:06: Bedside Glucose (Misc Panel) 175H 09/27/18 05:37: Nucleated Red Blood Cells % (auto) 0.0, Anion Gap 4L, Glomerular Filtration Rate 32.4L, Blood Urea Nitrogen 22H, Creatinine 1.65H, Sodium Level 142, Potassium Level 4.0#, Chloride Level 106, Carbon Dioxide Level 32, Calcium Level 8.4L 09/27/18 08:00: Bedside Glucose (Misc Panel) 266H 09/27/18 11:51: Bedside Glucose (Misc Panel) 199H CBC/BMP Laboratory Tests 09/26/18 15:02 09/27/18 05:37 Red Blood Count 4.79, Mean Corpuscular Volume 77.5 L, Mean Corpuscular Hemoglobin 22.8 L, Mean Corpuscular Hemoglobin Concent 29.4 L, Red Cell Distribution Width 18.6 H, Calcium Level 8.4 L FSBS Laboratory Tests Test 09/26/18 16:39 09/26/18 20:06 09/27/18 08:00 09/27/18 11:51 Range/Units Bedside Glucose (Misc Panel) 243 175 266 199 83-110 MG/DL Microbiology Microbiology 09/26/18 Stool Occult Blood (GORDY) - Final, Complete 09/26/18 Urine Culture - Final, Complete Discharge Medications Scheduled Allopurinol (Zyloprim) 300 Mg Tab, 300 MG PO DAILY, (Reported) Ammonium Lactate (Ammonium Lactate) 12 % Cre, 1 DOSE TOP BID, (Reported) APPLY TO LEGS/FEET Apixaban (Eliquis) 5 Mg Tablet, 5 MG PO BID, (Reported) Atenolol (Atenolol) 25 Mg Tablet, 25 MG PO BID, (Reported) Atorvastatin Calcium (Atorvastatin Calcium) 10 Mg Tab, 10 MG PO DAILY, (Reported) Betamethasone Mala (Betamethasone Valerate) 45 Gm Oint, 1 DOSE TOP QHS, (Reported) USES ON LEGS FOR HOTSPOTS Calcitriol (Calcitriol) 0.25 Mcg Cap, 0.25 MCG PO DAILY, (Reported) Colchicine (Colchicine) 0.6 Mg Tab, 0.6 MG PO DAILY, (Reported) Cyclosporine (Restasis) 0.05 % Emu, 1 DROP OU BID, (Reported) Docusate Sodium (Docusate Sodium) 100 Mg Cap, 100 MG PO BID, (Reported) Duloxetine Hcl (Cymbalta) 60 Mg Capsule.dr, 60 MG PO DAILY, (Reported) Ergocalciferol (Vitamin D2) (Vitamin D2) 50,000 Unit Cap, 50,000 UNIT PO MTHLY, (Reported) TAKES ON 1ST OF THE MONTH Ertapenem Sodium (Ertapenem) 1 Gm Vial, 1 GM IV DAILY Insulin Degludec (Tresiba Flextouch U-100) 100 Unit/Ml Inj, 96 UNIT SC DAILY, (Reported) TAKES BEFORE BREAKFAST Insulin Human Lispro (Humalog) 1 Units/0.01 Ml Inj, 1 DOSE SC AC, (Reported) PER SLIDING SCALE < 70: TREAT LBS WITH 15 G CARBS 70 -90: 46, 46, 46 91-130: 52, 52, 52, 8 FOR NIGHT SNACK 131-150: 56, 56, 56, 10 FOR NIGHT SNACK 151-200: 60, 60, 60, 12 FOR NIGHT SNACK, 4 UNITS NPO 201-250: 66, 66, 66, 14 FOR NIGHT SNACK, 6 UNITS NPO 251-300: 72, 72, 72, 16 FOR NIGHT SNACK, 8 UNITS NPO 301-350: 78, 78, 78, 18 FOR NIGHT SNACK, 10 UNITS NPO 351-400: 82, 82, 82, 20 FOR NIGHT SNACK, 14 UNITS NPO 401-450: 86, 86, 86, 22 FOR NIGHT SNACK, 18 UNITS NPO > 450: 90, 90, 90, 24 FOR NIGHT SNACK, 22 UNITS NPO Levetiracetam (Levetiracetam ER) 500 Mg Lindsay, 500 MG PO BID, (Reported) Omeprazole (Omeprazole) 20 Mg Cap, 20 MG PO BID, (Reported) Pregabalin (Lyrica) 150 Mg Capsule, 150 MG PO BID, (Reported) Spironolactone (Spironolactone) 25 Mg Tablet, 25 MG PO DAILY, (Reported) Sucralfate (Sucralfate) 1 Gm Tab, 1 GM PO BID, (Reported) Torsemide (Torsemide) 20 Mg Tablet, 60 MG PO BID, (Reported) Triamcinolone Acet (Triamcinolone Acetonide 0.025% Crm) 1 Dose/80 Gm Cream, 1 DOSE TOP BID, (Reported) APPLIES ON THIGHS Scheduled PRN Acetaminophen (Tylenol Arthritis) 650 Mg Tab, 650 MG PO Q8H PRN for PAIN, (Reported) Albuterol Sulf (Albuterol Sulfate) 2.5 Mg/3 Ml Nebu, 2.5 MG INH Q4H PRN for SHORTNESS OF BREATH, (Reported) Halobetasol Propionate (Halobetasol Propionate) 0.05 % Cre, 1 DOSE TOP for RASH, (Reported) APPLIES UNDER FOLDS AND BREASTS Magnesium Hydroxide (Milk of Magnesia) 400 Mg/5 Ml Oral.susp, 30 ML PO DAILY PRN for CONSTIPATION, (Reported) Nystatin (Nystatin) 100,000 Unit/Gm Cre, 1 DOSE TOP BID PRN for RASH, (Reported) UNDER BREASTS AND GROIN AREA Nystatin (Nystatin Oint) 30 Gm Oint, 1 DOSE TOP TID PRN for RASH, (Reported) APPLIES AROUND VAGINAL AREA Ondansetron HCl (Ondansetron HCl) 4 Mg Tab, 4 MG PO QID PRN for NAUSEA OR VOMITING, (Reported) Allergies Coded Allergies: Cephalosporins (Verified Allergy, Intermediate, hives, 07/14/18) Penicillins (Verified Allergy, Intermediate, hives, 07/14/18) Sulfa (Sulfonamide Antibiotics) (Verified Allergy, Intermediate, hives, 07/14/18) chlorpromazine (Verified Allergy, Intermediate, hiives, 07/14/18) loratadine (Verified Allergy, Intermediate, hives, 07/14/18) pentazocine (Verified Allergy, Intermediate, hives, 07/14/18) TAPE (Verified Allergy, Unknown, band-aids, 07/14/18) methadone (Verified Allergy, Unknown, 09/25/18) HAS HAD DILAUDID AND DEMEROL IN THE PAST pregabalin (Verified Adverse Reaction, Intermediate, Hx Acute encephalopathy with high doses, 07/18/18) Hx Acute encephalopathy with high doses (150mg TID in May 2018), given concomitantly with morphine GURVINDER LEONARD MD Sep 27, 2018 14:45
== END 2018-09-27 15:58 | disposition home health service (06) | DRG 812 ==
LOC: M ED 14:33 → M ED INP 16:28 → M PCU 17:39
PROVIDERS: ADMIT Internal Medicine; ATTEND Internal Medicine
PROC: 30233N1 Transfusion of Nonautologous Red Blood Cells into Peripheral Vein, Percutaneous Approach (ICD-10-PCS; principal; 2018-09-25)
DX: D50.9 Iron deficiency anemia, unspecified (principal); N99.511 Cystostomy infection; I50.32 Chronic diastolic (congestive) heart failure; N39.0 Urinary tract infection, site not specified; E66.2 Morbid (severe) obesity with alveolar hypoventilation; I13.0 Hypertensive heart and chronic kidney disease with heart failure and stage 1 through stage 4 chronic kidney disease, or unspecified chronic kidney disease; J43.9 Emphysema, unspecified; G47.33 Obstructive sleep apnea (adult) (pediatric); I48.0 Paroxysmal atrial fibrillation; E11.40 Type 2 diabetes mellitus with diabetic neuropathy, unspecified; N18.3 Chronic kidney disease, stage 3 (moderate); M10.9 Gout, unspecified; G25.81 Restless legs syndrome; K21.9 Gastro-esophageal reflux disease without esophagitis; Z86.718 Personal history of other venous thrombosis and embolism; Z86.711 Personal history of pulmonary embolism; B96.5 Pseudomonas (aeruginosa) (mallei) (pseudomallei) as the cause of diseases classified elsewhere; R11.0 Nausea; Z79.899 Other long term (current) drug therapy; Z79.4 Long term (current) use of insulin; Z88.0 Allergy status to penicillin; Z88.2 Allergy status to sulfonamides; Z88.8 Allergy status to other drugs, medicaments and biological substances; Z96.641 Presence of right artificial hip joint

== ENCOUNTER → 2018-10-02 | Outpatient (REF) | payer MEDICARE, MEDICAID ==
[~2018-10-02] MED LIST changes: +CYMB60CA3 PO; -DULO1CAP3 PO; +DULO1CAP6 PO; +ERTA1INJ3 IV; -OMEP20CA3 PO; +OMEP20CA4 PO
[2018-10-02 19:04] LABS: HEMATOCRIT 42.4 % (36.0-47.0); MEAN CORPUSCULAR HEMOGLOBIN 22.8 pg (27.0-33.0); MEAN CORPUSCULAR HGB CONC 28.3 g/dl (32.0-36.5); MEAN CORPUSCULAR VOLUME 80.6 fl (80.0-96.0); PLATELET COUNT, AUTOMATED 237 10^3/uL (150-450); RED BLOOD COUNT 5.26 10^6/uL (4.00-5.40)
[2018-10-02 19:24] LABS: CALCIUM LEVEL 9.2 MG/DL (8.8-10.2); CREATININE FOR GFR 2.11 MG/DL (0.55-1.30); GLOMERULAR FILTRATION RATE 24.4 (>39); POTASSIUM SERUM 3.2 MEQ/L (3.5-5.1)
== END ==
LOC: M LAB REF 15:41
PROVIDERS: ATTEND Internal Medicine
DX: D50.9 Iron deficiency anemia, unspecified (principal); J44.9 Chronic obstructive pulmonary disease, unspecified

== ENCOUNTER → 2018-10-09 | Outpatient (REF) | payer MEDICARE, MEDICAID ==
[2018-10-09 19:56] LABS: CALCIUM LEVEL 9.6 MG/DL (8.8-10.2); CREATININE FOR GFR 1.73 MG/DL (0.55-1.30); GLOMERULAR FILTRATION RATE 30.7 (>39); PERCENT SATURATION 11.7 % (13.2-45.0); POTASSIUM SERUM 3.8 MEQ/L (3.5-5.1)
[2018-10-09 20:03] LABS: HEMATOCRIT 39.8 % (36.0-47.0); HEMOGLOBIN 11.7 g/dl (12.0-15.5); MEAN CORPUSCULAR HEMOGLOBIN 24.5 pg (27.0-33.0); MEAN CORPUSCULAR HGB CONC 29.4 g/dl (32.0-36.5); MEAN CORPUSCULAR VOLUME 83.3 fl (80.0-96.0); PLATELET COUNT, AUTOMATED 261 10^3/uL (150-450); RED BLOOD COUNT 4.78 10^6/uL (4.00-5.40); WHITE BLOOD COUNT 6.4 10^3/uL (4.0-10.0)
== END ==
LOC: M LABDRWAD 19:09
PROVIDERS: ATTEND Internal Medicine
DX: D50.9 Iron deficiency anemia, unspecified (principal); J44.9 Chronic obstructive pulmonary disease, unspecified

== ENCOUNTER → 2018-10-12 | Outpatient (REF) | payer MEDICARE, MEDICAID ==
[2018-10-16 00:06] LABS: HSV-1 DNA Negative (Negative); HSV-2 DNA Negative (Negative)
== END ==
LOC: M SFHCPLAZ 17:19
PROVIDERS: ATTEND Internal Medicine Infectious Disease
DX: L89.152 Pressure ulcer of sacral region, stage 2 (principal)
CPT/HCPCS: 87529; G0463

== ENCOUNTER 2018-10-13 09:43 | Outpatient (CLI) | payer MEDICARE, MEDICAID ==
[~2018-10-13] VITALS: Ht 170.2 cm; Wt 110.0 kg
[2018-10-13] VITALS (7 sets, daily range): BP systolic 124–159; BP diastolic 57–68
[~2018-10-13 09:43] MED LIST changes: +BISO5TAB14 PO; -BISO5TAB5 PO; +FLUO20CA20 PO; -FLUO20CA8 PO; +OMEP1CAP73 PO; -OMEP20CA4 PO; +ONDA-83 PO; -ONDA4TAB5 PO; -OXYB10TA PO; +OXYB10TA23 PO; +SODIUM CHLORIDE 0.9% INJ 10 ML SYR IV SCH
[2018-10-13] MEDS ORDERED: IRON SUCROSE 25 MG in NS 50 ML IV ONE (10:30)
[2018-10-13] MEDS ORDERED: IRON SUCROSE 475 MG in NS 250 ML IV ONE (11:30)
== END 2018-10-13 16:00 | disposition home or self-care (01) ==
LOC: M INFU 09:43
PROVIDERS: ATTEND Internal Medicine
DX: D50.9 Iron deficiency anemia, unspecified (principal); Z88.1 Allergy status to other antibiotic agents; Z88.3 Allergy status to other anti-infective agents; Z88.8 Allergy status to other drugs, medicaments and biological substances
CPT/HCPCS: 96365; 96366; J1756

== ENCOUNTER → 2018-10-17 | Outpatient (REF) | payer MEDICARE, MEDICAID ==
[~2018-10-17] MED LIST changes: +ARNU1INH INH; +LEVA1TAB2 PO; +MERO500I IV; +NORT10CA2 PO; +OSEL75CA PO; +PRED20TA PO; +PREP1SUP2 PR; -SODIUM CHLORIDE 0.9% INJ 10 ML SYR IV SCH
[2018-10-17 19:37] LABS: CALCIUM LEVEL 9.1 MG/DL (8.8-10.2); CREATININE FOR GFR 1.83 MG/DL (0.55-1.30); GLOMERULAR FILTRATION RATE 28.7 (>39); PERCENT SATURATION 15.9 % (13.2-45.0); POTASSIUM SERUM 3.5 MEQ/L (3.5-5.1)
[2018-10-17 19:38] LABS: HEMATOCRIT 36.3 % (36.0-47.0); HEMOGLOBIN 10.6 g/dl (12.0-15.5); MEAN CORPUSCULAR HEMOGLOBIN 24.9 pg (27.0-33.0); MEAN CORPUSCULAR HGB CONC 29.2 g/dl (32.0-36.5); MEAN CORPUSCULAR VOLUME 85.4 fl (80.0-96.0); PLATELET COUNT, AUTOMATED 180 10^3/uL (150-450); RED BLOOD COUNT 4.25 10^6/uL (4.00-5.40); WHITE BLOOD COUNT 5.3 10^3/uL (4.0-10.0)
== END ==
LOC: M LABDRWAD 19:03 → M LAB REF 19:03
PROVIDERS: ATTEND Internal Medicine
DX: D50.9 Iron deficiency anemia, unspecified (principal); J44.9 Chronic obstructive pulmonary disease, unspecified

== ENCOUNTER → 2018-10-24 | Outpatient (REF) | payer MEDICARE, MEDICAID ==
[~2018-10-24] MED LIST changes: -ARNU1INH INH; -BISO5TAB14 PO; +BISO5TAB5 PO; -FLUO20CA20 PO; +FLUO20CA8 PO; -LEVA1TAB2 PO; -MERO500I IV; -NORT10CA2 PO; -OMEP1CAP73 PO; +OMEP20CA4 PO; -ONDA-83 PO; +ONDA4TAB5 PO; -OSEL75CA PO; +OXYB10TA PO; -OXYB10TA23 PO; -PRED20TA PO; -PREP1SUP2 PR
[2018-10-24 19:58] LABS: HEMATOCRIT 38.7 % (36.0-47.0); HEMOGLOBIN 11.3 g/dl (12.0-15.5); MEAN CORPUSCULAR HEMOGLOBIN 26.3 pg (27.0-33.0); MEAN CORPUSCULAR HGB CONC 29.2 g/dl (32.0-36.5); PLATELET COUNT, AUTOMATED 161 10^3/uL (150-450); WHITE BLOOD COUNT 4.8 10^3/uL (4.0-10.0)
[2018-10-24 20:12] LABS: CREATININE FOR GFR 1.73 MG/DL (0.55-1.30); GLOMERULAR FILTRATION RATE 30.7 (>39); PERCENT SATURATION 9.4 % (13.2-45.0); POTASSIUM SERUM 3.5 MEQ/L (3.5-5.1)
== END ==
LOC: M LAB REF 19:13
PROVIDERS: ATTEND Internal Medicine
DX: D50.9 Iron deficiency anemia, unspecified (principal); J44.9 Chronic obstructive pulmonary disease, unspecified

== ENCOUNTER 2018-10-27 09:32 | Outpatient (CLI) | payer MEDICARE ==
[~2018-10-27] VITALS: Ht 170.2 cm; Wt 110.0 kg
[~2018-10-27 09:32] MED LIST changes: +SODIUM CHLORIDE 0.9% INJ 10 ML SYR IV SCH
[2018-10-27 09:35] VITALS: BP 116/56
[2018-10-27] MEDS ORDERED: IRON SUCROSE 25 MG in NS 50 ML IV ONE (10:30)
[2018-10-27 11:20] VITALS: BP 137/66
[2018-10-27] MEDS ORDERED: IRON SUCROSE 475 MG in NS 250 ML IV ONE (11:30)
[2018-10-27 12:30] VITALS: BP 128/58
[2018-10-27 13:30] VITALS: BP 123/59
[2018-10-27 14:30] VITALS: BP 122/56
[2018-10-27 15:35] VITALS: BP 126/60
== END 2018-10-27 15:35 | disposition home or self-care (01) ==
LOC: M INFU 09:32
PROVIDERS: ATTEND Internal Medicine
DX: D50.9 Iron deficiency anemia, unspecified (principal); Z88.8 Allergy status to other drugs, medicaments and biological substances; Z88.1 Allergy status to other antibiotic agents; Z88.2 Allergy status to sulfonamides; Z79.899 Other long term (current) drug therapy
CPT/HCPCS: 96365; 96366; J1756

== ENCOUNTER → 2018-11-02 | Outpatient (REF) | payer MEDICARE ==
[~2018-11-02] MED LIST changes: -SODIUM CHLORIDE 0.9% INJ 10 ML SYR IV SCH
[2018-11-02 19:46] LABS: ALBUMIN 3.7 GM/DL (3.2-5.2); CALCIUM LEVEL 8.9 MG/DL (8.8-10.2); CREATININE FOR GFR 1.46 MG/DL (0.55-1.30); GLOMERULAR FILTRATION RATE 37.3 (>39); POTASSIUM SERUM 3.4 MEQ/L (3.5-5.1)
[2018-11-02 19:51] LABS: HEMATOCRIT 39.3 % (36.0-47.0); HEMOGLOBIN 11.3 g/dl (12.0-15.5); MEAN CORPUSCULAR HEMOGLOBIN 26.5 pg (27.0-33.0); MEAN CORPUSCULAR HGB CONC 28.8 g/dl (32.0-36.5); MEAN CORPUSCULAR VOLUME 92.3 fl (80.0-96.0); PLATELET COUNT, AUTOMATED 165 10^3/uL (150-450); RED BLOOD COUNT 4.26 10^6/uL (4.00-5.40); WHITE BLOOD COUNT 4.2 10^3/uL (4.0-10.0)
[2018-11-02 19:59] LABS: PTH INTACT 148.5 PG/ML (18.5-88.0)
== END ==
LOC: M LAB REF 19:11
PROVIDERS: ATTEND Internal Medicine Nephrology
DX: N18.4 Chronic kidney disease, stage 4 (severe) (principal); M1A.30X0 Chronic gout due to renal impairment, unspecified site, without tophus (tophi); N25.81 Secondary hyperparathyroidism of renal origin

== ENCOUNTER → 2018-11-06 | Outpatient (REF) | payer MEDICARE ==
[2018-11-06 17:26] LABS: PERCENT SATURATION 13.4 % (13.2-45.0)
== END ==
LOC: M LAB REF 16:35
PROVIDERS: ATTEND Nurse Practitioner Adult Health
DX: D50.9 Iron deficiency anemia, unspecified (principal); N39.0 Urinary tract infection, site not specified

== ENCOUNTER → 2018-11-21 | Outpatient (REF) | payer MEDICARE ==
[~2018-11-21] MED LIST changes: -OXYB10TA PO; +OXYB10TA2 PO
[2018-11-22 12:07] LABS: HEMATOCRIT 39.6 % (36.0-47.0)
== END ==
LOC: M LAB REF 11:01
PROVIDERS: ATTEND Nurse Practitioner Adult Health
DX: D50.9 Iron deficiency anemia, unspecified (principal)

== ENCOUNTER 2018-11-26 18:14 | Inpatient (IN) | payer MEDICARE ==
[~2018-11-26] VITALS: Ht 170.2 cm; Wt 107.0 kg
[2018-11-26] MEDS ORDERED: NS 1,000 ML IV ONE (19:00)
[2018-11-26] MEDS ORDERED: MORPHINE 4 MG/ML 1ML VIAL/SYRINGE (J2270) IV ONE (19:00)
[2018-11-26] MEDS ORDERED: diphenhydrAMINE INJ 50MG/ML VIAL (J1200) IV ONE (20:00)
[2018-11-26 20:22] LABS: BASO # 0.1 10^3/uL (0.0-0.2); BASO % 1.2 % (0.0-1.0); EOS # 0.2 10^3/uL (0.0-0.50); EOS % 4.1 % (0.0-3.0); HEMATOCRIT 40.9 % (36.0-47.0); HEMOGLOBIN 12.7 g/dl (12.0-15.5); LYMPH % 38.6 % (24.0-44.0); MEAN CORPUSCULAR HEMOGLOBIN 27.3 pg (27.0-33.0); MEAN CORPUSCULAR HGB CONC 31.1 g/dl (32.0-36.5); MONO # 0.5 10^3/uL (0.0-0.8); NEUTROPHILS # 2.4 10^3/uL (1.8-7.7); NEUTROPHILS % 45.9 % (36.0-66.0); PLATELET COUNT, AUTOMATED 190 10^3/uL (150-450); RED BLOOD COUNT 4.65 10^6/uL (4.00-5.40); WHITE BLOOD COUNT 5.2 10^3/uL (4.0-10.0)
[2018-11-26 20:32] LABS: INR 1.2; PROTHROMBIN TIME 14.9 SECONDS (11.8-14.0)
[2018-11-26 20:33] LABS: PARTIAL THROMBOPLASTIN TIME 32.9 SECONDS (25.0-38.4)
[2018-11-26 20:45] LABS: ALBUMIN 3.5 GM/DL (3.2-5.2); BILIRUBIN,DIRECT 0.1 MG/DL (0.0-0.2); BILIRUBIN,TOTAL 0.3 MG/DL (0.2-1.0); CALCIUM LEVEL 9.2 MG/DL (8.8-10.2); CREATININE FOR GFR 1.45 MG/DL (0.55-1.30); GLOMERULAR FILTRATION RATE 37.6 (>39); POTASSIUM SERUM 3.7 MEQ/L (3.5-5.1); TOTAL PROTEIN 6.6 GM/DL (6.4-8.2)
[2018-11-26] MEDS ORDERED: HEPARIN SOD (PORCINE) 5000 UNITS/ML VIAL SC SCH (22:15)
[2018-11-27] MEDS ORDERED: LevoFLOXacin IV 500 MG in APPROPRIATE DILUENT 1 EA IV SCH ×2
[2018-11-27] MEDS ORDERED: NYSTATIN OINTMENT 15 GM TOP PRN (01:15)
[2018-11-27] MEDS ORDERED: NYSTATIN CREAM 15 GM TOP PRN (01:15)
--- NOTE | 2018-11-27 01:25 | HPEPDOC ---
[facility] Medical History & Physical Date of Admission Nov 26, 2018 Date of Service: Nov 26, 2018 History and Physical CHIEF COMPLAINT: [malaise ] HISTORY OF PRESENT ILLNESS: [This is a 73 yo female with multiple pmhx including recurrent UTI s/p suprapubic catheter who came to the ed for not feeling well. Patient said for the past 3 days she has been feeling unwell with decreased appetite, no po intake, nausea , dry heaves, chills and sweats. ] PAST MEDICAL HISTORY: 1. [htn]. 2. [dm2]. 3. [hypothyroidism]. 4. afib 5. ckd stage 3-4 6. copd on home bipap 7. neuropathy PAST SURGICAL HISTORY: 1. [lung surgery]. 2. [back surgery]. SOCIAL HISTORY: never smoked was exposed to second hand smoking denied etoh or drug use FAMILY HISTORY: mother and brother of lung cancer ALLERGIES: Please see below. HOME MEDICATIONS: Please see below. ROS - all 10 point review of system is negative except for whats listed in HPI Physical exam Gen: NAD, healthy appearing , HEENT: normocephalic, atraumatic, no discharge from ears or nose, no oropharyngeal erythema or exudate, neck is supple, no lymphadenopathy, trachea midline CVS: RRR, normal S1n S2, no murmur, rubs, or gallops, no edema, no jvd Resp: LCTAB, no rhonchi, or crackles Abd : soft nontender, normal bowel sounds, no rebound tenderness or guarding , suprapubic catheter with malodorous exudative draining MSK: no swelling, or deformity, right LE 1/5, left 4/5, arms 5/5 Neuro: AOA, no confusion, Psych: normal mood and affect, good judgment LABORATORY DATA: See below. MICROBIOLOGY: Please see below. ASSESSMENT and PLAN UTI - c/w levaquin -urologist consulted in ED - suppose to see pt tomorrow -f/u urine and blood cx dm2 takes 96 units of long acting daily, but since pt has not been eating , will give only 50 untis iss hypoglycemic protocol Afib eliquis rate controlled ISSA pt looks dry hold torsemide gentle hydration c/w home meds for other chronic conditions dvt ppx full code Vital Signs Vital Signs Date Time Temp Pulse Resp B/P (MAP) Pulse Ox O2 Delivery O2 Flow Rate FiO2 8/25/19 20:27 16 11/26/18 18:59 11/26/18 18:16 98.9 71 96 Room Air Laboratory Data Labs 24H Laboratory Tests 2 11/26/18 19:10: Immature Granulocyte % (Auto) 0.2, White Blood Count 5.2, Red Blood Count 4.65, Hemoglobin 12.7, Hematocrit 40.9, Mean Corpuscular Volume 88.0, Mean Corpuscular Hemoglobin 27.3, Mean Corpuscular Hemoglobin Concent 31.1L, Red Cell Distribution Width 17.7H, Platelet Count 190, Neutrophils (%) (Auto) 45.9, Lymphocytes (%) (Auto) 38.6, Monocytes (%) (Auto) 10.0H, Eosinophils (%) (Auto) 4.1H, Basophils (%) (Auto) 1.2H, Neutrophils # (Auto) 2.4, Lymphocytes # (Auto) 2.0, Monocytes # (Auto) 0.5, Eosinophils # (Auto) 0.2, Basophils # (Auto) 0.1, Nucleated Red Blood Cells % (auto) 0.0, Prothrombin Time 14.9H, Prothromb Time International Ratio 1.20, Activated Partial Thromboplast Time 32.9, Urine Color YELLOW, Urine Appearance CLOUDYH, Urine pH 6.0, Urine Specific [place] 1.009, Urine Protein NEGATIVE, Urine Glucose (UA) NEGATIVE, Urine Ketones NEGATIVE, Urine Blood 1+H, Urine Nitrite NEGATIVE, Urine Bilirubin NEGATIVE, Urine Urobilinogen 0.2, Urine Leukocyte Esterase 3+H, Urine WBC (Auto) TNTCH, Urine RBC (Auto) 13H, Urine Hyaline Casts (Auto) 0, Urine Bacteria (Auto) 3+H, Urine Squamous Epithelial Cells 1, Urine Amorphous Sediment SMALLH, Urine Mucus (Auto) SMALL, Urine Sperm (Auto) , Anion Gap 10, Glomerular Filtration Rate 37.6L, Calcium Level 9.2, Aspartate Amino Transf (AST/SGOT) 27, Alanine Aminotransferase (ALT/SGPT) 29, Alkaline Phosphatase 87, Total Bilirubin 0.3, Direct Bilirubin 0.1, Total Protein 6.6, Albumin 3.5, Albumin/Globulin Ratio 1.13 11/26/18 20:18: POC Lactate (Misc Panel) 1.76 CBC/BMP Laboratory Tests 11/26/18 19:10 Red Blood Count 4.65, Mean Corpuscular Volume 88.0, Mean Corpuscular Hemoglobin 27.3, Mean Corpuscular Hemoglobin Concent 31.1 L, Red Cell Distribution Width 17.7 H, Neutrophils (%) (Auto) 45.9, Lymphocytes (%) (Auto) 38.6, Monocytes (%) (Auto) 10.0 H, Eosinophils (%) (Auto) 4.1 H, Basophils (%) (Auto) 1.2 H, Neutrophils # (Auto) 2.4, Lymphocytes # (Auto) 2.0, Monocytes # (Auto) 0.5, Eosinophils # (Auto) 0.2, Basophils # (Auto) 0.1 Microbiology Microbiology 11/26/18 Blood Culture, Received Pending 11/26/18 Blood Culture, Received Pending 11/26/18 Urine Culture, Received Pending Home Medications Scheduled Allopurinol (Zyloprim) 300 Mg Tab, 300 MG PO DAILY Ammonium Lactate (Ammonium Lactate) 12 % Cre, 1 DOSE TOP BID APPLY TO LEGS/FEET Apixaban (Eliquis) 5 Mg Tablet, 5 MG PO BID Atenolol (Atenolol) 25 Mg Tablet, 25 MG PO BID Atorvastatin Calcium (Atorvastatin Calcium) 10 Mg Tab, 10 MG PO DAILY Betamethasone Mala (Betamethasone Valerate) 45 Gm Oint, 1 DOSE TOP QHS USES ON LEGS FOR HOTSPOTS Calcitriol (Calcitriol) 0.25 Mcg Cap, 0.25 MCG PO DAILY Colchicine (Colchicine) 0.6 Mg Tab, 0.6 MG PO DAILY Cyclosporine (Restasis) 0.05 % Emu, 1 DROP OU BID Docusate Sodium (Docusate Sodium) 100 Mg Cap, 100 MG PO BID Duloxetine Hcl (Cymbalta) 60 Mg Capsule.dr, 60 MG PO DAILY Ergocalciferol (Vitamin D2) (Vitamin D2) 50,000 Unit Cap, 50,000 UNIT PO MTHLY TAKES ON 1ST OF THE MONTH Insulin Degludec (Tresiba Flextouch U-100) 100 Unit/Ml Inj, 96 UNIT SC DAILY TAKES BEFORE BREAKFAST Insulin Human Lispro (Humalog) 1 Units/0.01 Ml Inj, 1 DOSE SC AC PER SLIDING SCALE < 70: TREAT LBS WITH 15 G CARBS 70 -90: 46, 46, 46 91-130: 52, 52, 52, 8 FOR NIGHT SNACK 131-150: 56, 56, 56, 10 FOR NIGHT SNACK 151-200: 60, 60, 60, 12 FOR NIGHT SNACK, 4 UNITS NPO 201-250: 66, 66, 66, 14 FOR NIGHT SNACK, 6 UNITS NPO 251-300: 72, 72, 72, 16 FOR NIGHT SNACK, 8 UNITS NPO 301-350: 78, 78, 78, 18 FOR NIGHT SNACK, 10 UNITS NPO 351-400: 82, 82, 82, 20 FOR NIGHT SNACK, 14 UNITS NPO 401-450: 86, 86, 86, 22 FOR NIGHT SNACK, 18 UNITS NPO > 450: 90, 90, 90, 24 FOR NIGHT SNACK, 22 UNITS NPO Levetiracetam (Levetiracetam ER) 500 Mg Lindsay, 500 MG PO BID Omeprazole (Omeprazole) 20 Mg Cap, 20 MG PO BID Pregabalin (Lyrica) 150 Mg Capsule, 150 MG PO BID Sucralfate (Sucralfate) 1 Gm Tab, 1 GM PO BID Torsemide (Torsemide) 20 Mg Tablet, 60 MG PO BID Triamcinolone Acet (Triamcinolone Acetonide 0.025% Crm) 1 Dose/80 Gm Cream, 1 DOSE TOP BID APPLIES ON THIGHS Scheduled PRN Acetaminophen (Tylenol Arthritis) 650 Mg Tab, 650 MG PO Q8H PRN for PAIN Albuterol Sulf (Albuterol Sulfate) 2.5 Mg/3 Ml Nebu, 2.5 MG INH Q4H PRN for SHOR TNESS OF BREATH Halobetasol Propionate (Halobetasol Propionate) 0.05 % Cre, 1 DOSE TOP for RASH APPLIES UNDER FOLDS AND BREASTS Magnesium Hydroxide (Milk of Magnesia) 400 Mg/5 Ml Oral.susp, 30 ML PO DAILY PRN for CONSTIPATION Nystatin (Nystatin) 100,000 Unit/Gm Cre, 1 DOSE TOP BID PRN for RASH UNDER BREASTS AND GROIN AREA Nystatin (Nystatin Oint) 30 Gm Oint, 1 DOSE TOP TID PRN for RASH APPLIES AROUND VAGINAL AREA Ondansetron HCl (Ondansetron HCl) 4 Mg Tab, 4 MG PO QID PRN for NAUSEA OR VOMITING Allergies Coded Allergies: Cephalosporins (Verified Allergy, Intermediate, hives, 07/14/18) Penicillins (Verified Allergy, Intermediate, hives, 07/14/18) Sulfa (Sulfonamide Antibiotics) (Verified Allergy, Intermediate, hives, 07/14/18) chlorpromazine (Verified Allergy, Intermediate, hiives, 07/14/18) loratadine (Verified Allergy, Intermediate, hives, 07/14/18) pentazocine (Verified Allergy, Intermediate, hives, 07/14/18) TAPE (Verified Allergy, Unknown, band-aids, 07/14/18) methadone (Verified Allergy, Unknown, 09/25/18) HAS HAD DILAUDID AND DEMEROL IN THE PAST A-FIB/CHADSVASC A-FIB History Current/History of A-Fib/PAF?: Yes Current PO Anticoag Therapy: Yes Age/Risk Factor Scoring CHADSVASC: CHADSVASC Response (Comments) Value Age Risk Factor Age 65-74 years old 1 Gender Risk Factor Female 1 Hx of CHF No 0 Hx of HTN Yes 1 Hx of Stroke/TIA/or VTE No 0 Hx of Diabetes Yes 1 Hx of Vascular Disease No 0 Total 4 Treatment Treatment ordered: Apixaban CHENG MORAES MD Nov 27, 2018 01:17
[2018-11-27 01:30] VITALS: BP 125/85
[2018-11-27] MEDS ORDERED: GLUCOSE 4 GM CHEW TABLET PO PRN (01:30)
[2018-11-27] MEDS ORDERED: GLUCAGON FOR INJ 1 MG VIAL (J1610) SC PRN (01:30)
[2018-11-27] MEDS ORDERED: DEXTROSE 50% 50 ML SYRINGE IV PRN (01:30)
[2018-11-27] MEDS: NS 1,000 ML IV SCH ×2 (03:21→21:20)
--- NOTE | 2018-11-27 05:00 | REPVR ---
EXAM: US Duplex Left Lower Extremity Veins, Limited EXAM DATE/TIME: 11/27/2018 4:11 AM CLINICAL HISTORY: 73 years old, female; Pain; Edema, localized; Lower extremity, left; Leg, lower; Additional info: Calf swelling and pain TECHNIQUE: Imaging protocol: Real-time Duplex ultrasound of the Left Lower Extremity with 2-D betancourt scale, color Doppler flow and spectral waveform analysis with image documentation. Limited exam focused on the left lower extremity veins. COMPARISON: US Duplex, Ext LOWER veins, bilat 08/17/2017 8:14 PM FINDINGS: Limitations: Visibility is somewhat limited through the mid and distal thigh related to body habitus. Left deep veins: Unremarkable. The common femoral, femoral, proximal profunda femoral and popliteal veins are patent without thrombus. Normal Doppler waveforms. Normal compressibility and/or augmentation response. Left superficial veins: Unremarkable. Saphenofemoral junction is patent without thrombus. Soft tissues: Unremarkable. IMPRESSION: No acute findings. No evidence of deep vein thrombosis. Electronically signed by: Zoya Miller On 11/27/2018 04:59:19 AM
[2018-11-27 05:55] LABS: HEMATOCRIT 41.4 % (36.0-47.0); HEMOGLOBIN 12.4 g/dl (12.0-15.5); MEAN CORPUSCULAR HEMOGLOBIN 27.7 pg (27.0-33.0); MEAN CORPUSCULAR VOLUME 92.4 fl (80.0-96.0); PLATELET COUNT, AUTOMATED 174 10^3/uL (150-450); RED BLOOD COUNT 4.48 10^6/uL (4.00-5.40); WHITE BLOOD COUNT 4.5 10^3/uL (4.0-10.0)
[2018-11-27 06:00] VITALS: BP 109/58
[2018-11-27 06:21] LABS: CALCIUM LEVEL 8.6 MG/DL (8.8-10.2); CREATININE FOR GFR 1.38 MG/DL (0.55-1.30); GLOMERULAR FILTRATION RATE 39.8 (>39); MAGNESIUM LEVEL 2.1 MG/DL (1.8-2.4); POTASSIUM SERUM 3.5 MEQ/L (3.5-5.1)
[2018-11-27] MEDS: PERCOCET 5MG/325MG TAB PO PRN ×3 (06:53→21:20)
[2018-11-27] MEDS ORDERED: PREVNAR 13 VACCINE SYRINGE (CPT CODE:90670) IM ONE (09:00)
[2018-11-27] MEDS: HumaLOG INSULIN (NovoLOG) PER UNIT SC SCH ×4 (09:09→23:02)
[2018-11-27] MEDS: SUCRALFATE 1 GM TAB PO SCH ×2 (09:10→21:19)
[2018-11-27] MEDS: DOCUSATE SODIUM 100 MG CAP PO SCH ×2 (09:10→21:19)
[2018-11-27] MEDS: DULoxetine 30 MG CAP (CYMBALTA) PO SCH (09:11)
[2018-11-27] MEDS: APIXABAN 5 MG TAB (ELIQUIS) PO SCH ×2 (09:11→21:19)
[2018-11-27] MEDS: OMEPRAZOLE 20 MG CAP PO SCH ×2 (09:12→21:20)
[2018-11-27] MEDS: PREGABALIN 75 MG CAP(LYRICA) PO SCH ×2 (09:12→21:20)
[2018-11-27] MEDS: ALLOPURINOL 300 MG TAB PO SCH (09:13)
[2018-11-27] MEDS: ATENOLOL 25 MG TAB PO SCH ×2 (09:13→23:00)
[2018-11-27] MEDS: LEVEMIR (INSULIN DETEMIR) 1 UNITS/0.01ML SC SCH (09:14)
[2018-11-27] MEDS: COLCHICINE 0.6 MG TAB PO SCH (09:42)
[2018-11-27] MEDS: LACTIC ACID 12% LOTION 225 GM BTL TOP SCH ×2 (09:42→23:03)
[2018-11-27] MEDS: levETIRAcetam **XR** 500 MG TABLET PO SCH ×2 (09:42→21:19)
[2018-11-27] MEDS: TRIAMCINOLONE ACETONIDE 0.025 % 80 GM CREAM TOP SCH ×2 (09:43→23:02)
[2018-11-27 14:00] VITALS: BP 107/51
--- NOTE | 2018-11-27 18:54 | IPNPDOC ---
Date Seen The patient was seen on 11/27/18. Progress Note SUBJECTIVE: "I'm hurting everywhere. I can't move my right hip, walk. My neck, back, shoulders, knees. It's really bad. Dr. Ingram gives me meds, Dr. Art gave me something for restless legs. I see Dr. Gabriel at the pain center. It hurts really bad in my bladder." PHYSICAL EXAM: VITAL SIGNS: As below. Generally: sitting >45degrees in bed.AAO x 3 with no respiratory distress or use of respiratory accessory muscles. pt is appropriate. no facial asymmetry. speech is fluent wihtout delay. no expressive or receptive aphasia. HEAD: Atraumatic, normocephalic. PERRL 3mm pupils. NECK: Supple. No jugular venous distention (JVD). LUNGS: diminished with left basilar crackles HEART: S1, S2 audible. No murmurs appreciated. ABDOMEN: Soft. Positive bowel sounds. indwelling prater with tenderness no rebound or guarding No pedal edema. Labs and Radiology : Reviewed ASSESSMENT and PLAN: Patient is a 73-year-old female with a extensive past medical history of morbid obesity, COPD, MATT, Obesity hypoventilation , gout, chronic pain, hypertension, diabetes, hyperlipidemia, morbid obesity,urinary retention, chronic recurrent urinary tract infections (UTIs), chronic kidney disease (CKD) III admitted for UTI. Recurrent UTI secondary to chronic indwelling catheter with history of pseudomonas resistant to levaquin, and e. coli resistant to levaquin will discontinue levaquin. await urine cx start on meropenem x 7days-seizure precautions due to h/o seizure d/o ID consult if worsens clinically Neurogenic Urinary retention with incomplete voiding causing recurrent UTIs avoid constipation bladder scan bid to evaluate for post void residual Insulin-dependent diabetes: she is on a consistent carb 2 g sodium diet by mouth on long acting and short acting insulin for better glycemic control Obstructive sleep apnea: Continue with CPAP Obesity: Complicating care Obesity hypoventilation syndrome: Complicating care Chronic hypoxic respiratory failure: She uses 2 L at her baseline intermittently at home as outlined above Asthma: As outlined above Gout: Continue Allopurinol with colchicine DVT: Status post IVC filter Hypertension She is continued on bisoprolol Hyperlipidemia continue atorvastatin Migraines and seizure disorder: The patient is continued on Keppra and Lyrica Fioricet one tablet every six hours as needed for migraine headache. Gastroesophageal reflux disease The patient is on a PPI and Carafate Vitamin D deficiency her monthly supplementation is currently on hold Chronic anemia due to chronic disease and iron deficiency Chronic diastolic congestive heart failure: Appears to be euvolemic at this time continue torsemide and spironolactone Irritable bowel syndrome with constipation Her home bowel regimen is in place milk of mag, lactulose Restless leg syndrome Cervicalgia / Myofascial pain syndrome/ Migraine headache. sees pain management as outpt, HAS spinal cord stimulator. Renal stone asymptomatic History of C diff right hip pain,chronic will need pain mgt DVT prophylaxis on warfarin. VS, I&O, 24H, Fishbone Vital Signs/I&O Vital Signs Date Time Temp Pulse Resp B/P (MAP) Pulse Ox O2 Delivery O2 Flow Rate FiO2 11/27/18 15:02 18 11/27/18 14:00 97.8 69 107/51 (69) 96 11/26/18 18:16 Room Air I&O- Last 24 Hours up to 6 AM 11/27/18 06:00 Intake Total 1125 ml Output Total 900 ml Balance 225 ml Laboratory Data 24H LABS Laboratory Tests 2 11/26/18 19:10: Immature Granulocyte % (Auto) 0.2, White Blood Count 5.2, Red Blood Count 4.65, Hemoglobin 12.7, Hematocrit 40.9, Mean Corpuscular Volume 88.0, Mean Corpuscular Hemoglobin 27.3, Mean Corpuscular Hemoglobin Concent 31.1L, Red Cell Distribution Width 17.7H, Platelet Count 190, Neutrophils (%) (Auto) 45.9, Lymphocytes (%) (Auto) 38.6, Monocytes (%) (Auto) 10.0H, Eosinophils (%) (Auto) 4.1H, Basophils (%) (Auto) 1.2H, Neutrophils # (Auto) 2.4, Lymphocytes # (Auto) 2.0, Monocytes # (Auto) 0.5, Eosinophils # (Auto) 0.2, Basophils # (Auto) 0.1, Nucleated Red Blood Cells % (auto) 0.0, Prothrombin Time 14.9H, Prothromb Time International Ratio 1.20, Activated Partial Thromboplast Time 32.9, Urine Color YELLOW, Urine Appearance CLOUDYH, Urine pH 6.0, Urine Specific Armstrong 1.009, Urine Protein NEGATIVE, Urine Glucose (UA) NEGATIVE, Urine Ketones NEGATIVE, Urine Blood 1+H, Urine Nitrite NEGATIVE, Urine Bilirubin NEGATIVE, Urine Urobilinogen 0.2, Urine Leukocyte Esterase 3+H, Urine WBC (Auto) TNTCH, Urine RBC (Auto) 13H, Urine Hyaline Casts (Auto) 0, Urine Bacteria (Auto) 3+H, Urine Squamous Epithelial Cells 1, Urine Amorphous Sediment SMALLH, Urine Mucus (Auto) SMALL, Urine Sperm (Auto) , Anion Gap 10, Glomerular Filtration Rate 37.6L, Calcium Level 9.2, Aspartate Amino Transf (AST/SGOT) 27, Alanine Aminotransferase (ALT/SGPT) 29, Alkaline Phosphatase 87, Total Bilirubin 0.3, Direct Bilirubin 0.1, Total Protein 6.6, Albumin 3.5, Albumin/Globulin Ratio 1.13 11/26/18 20:18: POC Lactate (Misc Panel) 1.76 11/27/18 01:25: Bedside Glucose (Misc Panel) 160H 11/27/18 05:27: Nucleated Red Blood Cells % (auto) 0.0, Anion Gap 8, Glomerular Filtration Rate 39.8, Calcium Level 8.6L, Blood Urea Nitrogen 23H, Creatinine 1.38H, Sodium Level 143, Potassium Level 3.5, Chloride Level 102, Carbon Dioxide Level 33H, Magnesium Level 2.1 11/27/18 11:36: Bedside Glucose (Misc Panel) 209H 11/27/18 11:46: Urine Color YELLOW, Urine Appearance HAZY, Urine pH 6.0, Urine Specific Armstrong 1.011, Urine Protein NEGATIVE, Urine Glucose (UA) NEGATIVE, Urine Ketones NEGATIVE, Urine Blood 2+H, Urine Nitrite NEGATIVE, Urine Bilirubin NEGATIVE, Urine Urobilinogen 0.2, Urine Leukocyte Esterase 3+H, Urine WBC (Auto) 16H, Urine RBC (Auto) 19H, Urine Hyaline Casts (Auto) 0, Urine Bacteria (Auto) 1+H, Urine Squamous Epithelial Cells 0, Urine Sperm (Auto) 11/27/18 16:36: Bedside Glucose (Misc Panel) 298H CBC/BMP Laboratory Tests 11/26/18 19:10 Red Blood Count 4.65, Mean Corpuscular Volume 88.0, Mean Corpuscular Hemoglobin 27.3, Mean Corpuscular Hemoglobin Concent 31.1 L, Red Cell Distribution Width 17.7 H, Neutrophils (%) (Auto) 45.9, Lymphocytes (%) (Auto) 38.6, Monocytes (%) (Auto) 10.0 H, Eosinophils (%) (Auto) 4.1 H, Basophils (%) (Auto) 1.2 H, Neutrophils # (Auto) 2.4, Lymphocytes # (Auto) 2.0, Monocytes # (Auto) 0.5, Eosinophils # (Auto) 0.2, Basophils # (Auto) 0.1 11/27/18 05:27 Red Blood Count 4.48, Mean Corpuscular Volume 92.4, Mean Corpuscular Hemoglobin 27.7, Mean Corpuscular Hemoglobin Concent 30.0 L, Red Cell Distribution Width 17.5 H, Calcium Level 8.6 L Microbiology Microbiology 11/26/18 Blood Culture, Received Pending 11/26/18 Blood Culture, Received Pending 11/27/18 Urine Culture, Received Pending 11/26/18 Urine Culture, Received Pending NUSRAT GUERRERO MD Nov 27, 2018 18:44
[2018-11-27] MEDS: LACTULOSE 20 GM/30 ML SYRUP UD PO SCH (21:19)
[2018-11-27] MEDS: ATORVASTATIN 10 MG TAB PO SCH (21:19)
[2018-11-27] MEDS: MEROPENEM INJ 500 MG in APPROPRIATE DILUENT 1 EA IV SCH (21:19)
[2018-11-27] MEDS: MIRALAX *UNIT DOSE* 17GM PACKET PO SCH (21:20)
--- NOTE | 2018-11-27 21:43 | CR ---
DATE OF CONSULTATION: 11/27/2018 REASON FOR CONSULTATION: Leaking of suprapubic tube. HISTORY: Ms. Stern is a pleasant, 73-year-old lady with multiple medical problems including diabetes. She has had problems with urinary retention managed initially with Al catheter and most recently with suprapubic tube which was initially placed in July of this year by Dr. Rivera. She had her suprapubic tube last week. Since that time, she has been leaking around the tube and voiding. She has had some output through the tube as well. She came to the emergency room last night feeling poorly with poor memory of events yesterday, confusion, generalized malaise. She has no documented fevers. Her last organism was Pseudomonas for which she was admitted in September. She previously has had extended-spectrum beta-lactamase (ESBL) organisms. She also has had Clostridium (C) difficile colitis in the past. Since being at the hospital, she has had less leaking. Her tube is due for change this morning. She has been having problems with anorexia and nausea. She has had some chills and sweats. She says she ordinarily does not run high fevers when she has been septic. MEDICAL ISSUES: Include diabetes, hypertension, hypothyroidism, atrial fibrillation, chronic renal disease, chronic obstructive pulmonary disease (COPD) on oxygen, and peripheral neuropathy. PREVIOUS SURGERIES: Include back and lung surgery. SOCIAL HISTORY: Never smoker who has home health coming out to the house for her tube changes. She did have secondhand exposure. She is a non-drinker. FAMILY HISTORY: Positive for lung cancer and diabetes. She does carry the diagnosis of atrial fibrillation. Her medicines include: - allopurinol - ammonium lactate - Eliquis - atenolol - atorvastatin - betamethasone ointment - calcitriol - colchicine - Restasis - Cymbalta - laxatives - Humalog - levetiracetam - omeprazole - Lyrica - sucralfate - torsemide ALLERGIES: To CEPHALOSPORINS, PENICILLIN, SULFA, CHLORPROMAZINE, LORATADINE, PENTAZOCINE, tape, and METHADONE. She has been sensitive to Dilaudid and Demerol. She has had a vascular ultrasound since admission which was negative. Her admission white count 5.2, hemoglobin 12.7, creatinine 1.45, sugar 191, potassium 3.7. For the remainder of her past medical, surgical, social, family history, review of systems, please refer to the dictated history and physical on chart. On physical exam, her temperature is 96.6, pulse 78, respirations 16, blood pressure 129/65. General: She is awake, alert, and oriented. Neck is supple. Chest is clear without respiratory distress. Cardiac exam: Regular rate, irregular rhythm. Abdominal exam is soft with some mild suprapubic tenderness. No flank tenderness. Suprapubic tube is in place draining clear urine. Extremities exam shows bilateral lower extremity edema. No calf tenderness. IMPRESSION: Possible urinary tract infection triggered by change of suprapubic tube with possible issues in suprapubic tube placement. PLAN: I would like to check a bladder scan to see if her bladder is full with the suprapubic tube in which would indicate poor suprapubic tube placement. In any event, her suprapubic tube should be changed with institution of antibiotic therapy as is being done by the hospitalist service. She is currently on Levaquin pending cultures. Thank you very much for this consult. I will inform of Dr. Rivera of the patient's admission.
[2018-11-27 22:00] VITALS: BP 104/56
[2018-11-27] MEDS: BETAMETHASONE VAL 0.1% OINT 15 GM TOP SCH (23:03)
[2018-11-28] MEDS: MEROPENEM INJ 500 MG in APPROPRIATE DILUENT 1 EA IV SCH ×3 (03:49→22:27)
[2018-11-28] MEDS: PERCOCET 5MG/325MG TAB PO PRN ×3 (05:42→22:30)
[2018-11-28 06:00] VITALS: BP 116/52
[2018-11-28 06:04] LABS: BASO % 0.9 % (0.0-1.0); EOS # 0.2 10^3/uL (0.0-0.50); HEMATOCRIT 36.1 % (36.0-47.0); HEMOGLOBIN 10.9 g/dl (12.0-15.5); LYMPH # 1.5 10^3/uL (1.5-4.5); LYMPH % 34.4 % (24.0-44.0); MEAN CORPUSCULAR HEMOGLOBIN 26.9 pg (27.0-33.0); MEAN CORPUSCULAR HGB CONC 30.2 g/dl (32.0-36.5); MEAN CORPUSCULAR VOLUME 89.1 fl (80.0-96.0); MONO # 0.4 10^3/uL (0.0-0.8); MONO % 10.4 % (0.0-5.0); NEUTROPHILS # 2.1 10^3/uL (1.8-7.7); NEUTROPHILS % 48.8 % (36.0-66.0); PLATELET COUNT, AUTOMATED 164 10^3/uL (150-450); RED BLOOD COUNT 4.05 10^6/uL (4.00-5.40); WHITE BLOOD COUNT 4.2 10^3/uL (4.0-10.0)
[2018-11-28 06:23] LABS: CALCIUM LEVEL 8.6 MG/DL (8.8-10.2); CREATININE FOR GFR 1.25 MG/DL (0.55-1.30); GLOMERULAR FILTRATION RATE 44.6 (>39); POTASSIUM SERUM 3.8 MEQ/L (3.5-5.1)
[2018-11-28] MEDS: LACTULOSE 20 GM/30 ML SYRUP UD PO SCH ×2 (08:37→22:28)
[2018-11-28] MEDS: MIRALAX *UNIT DOSE* 17GM PACKET PO SCH ×2 (08:37→22:28)
[2018-11-28] MEDS: OMEPRAZOLE 20 MG CAP PO SCH ×2 (08:38→22:28)
[2018-11-28] MEDS: TRIAMCINOLONE ACETONIDE 0.025 % 80 GM CREAM TOP SCH ×2 (08:38→22:30)
[2018-11-28] MEDS: LACTIC ACID 12% LOTION 225 GM BTL TOP SCH ×2 (08:38→22:31)
[2018-11-28] MEDS: SUCRALFATE 1 GM TAB PO SCH ×2 (08:39→22:28)
[2018-11-28] MEDS: ATENOLOL 25 MG TAB PO SCH ×2 (08:39→22:29)
[2018-11-28] MEDS: DOCUSATE SODIUM 100 MG CAP PO SCH ×2 (08:39→22:28)
[2018-11-28] MEDS: COLCHICINE 0.6 MG TAB PO SCH (08:40)
[2018-11-28] MEDS: ALLOPURINOL 300 MG TAB PO SCH (08:40)
[2018-11-28] MEDS: APIXABAN 5 MG TAB (ELIQUIS) PO SCH ×2 (08:40→22:28)
[2018-11-28] MEDS: DULoxetine 30 MG CAP (CYMBALTA) PO SCH (08:41)
[2018-11-28] MEDS: levETIRAcetam **XR** 500 MG TABLET PO SCH ×2 (08:41→22:28)
[2018-11-28] MEDS: PREGABALIN 75 MG CAP(LYRICA) PO SCH ×2 (08:42→22:28)
[2018-11-28] MEDS: HumaLOG INSULIN (NovoLOG) PER UNIT SC SCH ×4 (08:43→22:29)
[2018-11-28] MEDS: LEVEMIR (INSULIN DETEMIR) 1 UNITS/0.01ML SC SCH (08:44)
--- NOTE | 2018-11-28 11:27 | IPNPDOC ---
Date Seen The patient was seen on 11/28/18. Progress Note SUBJECTIVE:"I can't use my right hip. I can't walk. My right leg is still swollen. " better pain in the bladder today "not as bad as yesterday." OBJECTIVE: PHYSICAL EXAM: VITAL SIGNS: As below. Generally: on 2pillows with 45degree elevation. AAO x 3 with no respiratory distress or use of respiratory accessory muscles. pt is appropriate. no facial asymmetry. speech is fluent wihtout delay. no expressive or receptive aphasia. HEAD: Atraumatic, normocephalic. PERRL 3mm pupils. NECK: Supple. No jugular venous distention (JVD). LUNGS: diminished clear b/l no wheezing or rales HEART: S1, S2 audible. No murmurs appreciated. ABDOMEN: Soft. Positive bowel sounds. indwelling prater with tenderness no rebound or guarding EXT: b/l edema (+) Labs and Radiology : Reviewed ASSESSMENT and PLAN: Patient is a 73-year-old female with a extensive past medical history of morbid obesity, COPD, MATT, Obesity hypoventilation , gout, chronic pain, hypertension, diabetes, hyperlipidemia, morbid obesity,urinary retention, chronic recurrent urinary tract infections (UTIs), chronic kidney disease (CKD) III admitted for UTI. Recurrent UTI secondary to chronic indwelling catheter with history of pseudomonas resistant to levaquin, and e. coli resistant to levaquin will discontinue levaquin. await urine cx start on meropenem x 7days-seizure precautions due to h/o seizure d/o ID consulted Neurogenic Urinary retention with incomplete voiding urology consulted sees Dr. Rivera as outpt seen by Dr. Up yesterday chronic indwelling catheter causing recurrent UTIs avoid constipation bladder scan bid to evaluate for post void residual Insulin-dependent diabetes: she is on a consistent carb 2 g sodium diet by mouth on long acting and short acting insulin for better glycemic control Obstructive sleep apnea: Continue with CPAP Obesity: Complicating care Obesity hypoventilation syndrome: Complicating care Chronic hypoxic respiratory failure: She uses 2 L at her baseline intermittently at home as outlined above Asthma: As outlined above Gout: Continue Allopurinol with colchicine DVT: Status post IVC filter Hypertension She is continued on bisoprolol Hyperlipidemia continue atorvastatin Migraines and seizure disorder: The patient is continued on Keppra and Lyrica Fioricet one tablet every six hours as needed for migraine headache. Gastroesophageal reflux disease The patient is on a PPI and Carafate Vitamin D deficiency her monthly supplementation is currently on hold Chronic anemia due to chronic disease and iron deficiency Chronic diastolic congestive heart failure: Appears to be euvolemic at this time continue torsemide and spironolactone Irritable bowel syndrome with constipation Her home bowel regimen is in place milk of mag, lactulose Restless leg syndrome Cervicalgia / Myofascial pain syndrome/ Migraine headache. sees pain management as outpt, HAS spinal cord stimulator. Renal stone asymptomatic History of C diff right hip pain,chronic Xray to rule out pathology will need pain mgt chronic LE edema venous doppler of the right LE. DVT prophylaxis on warfarin. VS, I&O, 24H, Fishbone Vital Signs/I&O Vital Signs Date Time Temp Pulse Resp B/P (MAP) Pulse Ox O2 Delivery O2 Flow Rate FiO2 11/28/18 08:39 75 151/66 11/28/18 06:12 18 11/28/18 06:00 97.4 93 11/26/18 18:16 Room Air I&O- Last 24 Hours up to 6 AM 11/28/18 06:00 Intake Total 3830 ml Output Total 1915 ml Balance 1915 ml Laboratory Data 24H LABS Laboratory Tests 2 11/27/18 11:36: Bedside Glucose (Misc Panel) 209H 11/27/18 11:46: Urine Color YELLOW, Urine Appearance HAZY, Urine pH 6.0, Urine Specific Salmon 1.011, Urine Protein NEGATIVE, Urine Glucose (UA) NEGATIVE, Urine Ketones NEGATIVE, Urine Blood 2+H, Urine Nitrite NEGATIVE, Urine Bilirubin NEGATIVE, Urine Urobilinogen 0.2, Urine Leukocyte Esterase 3+H, Urine WBC (Auto) 16H, Urine RBC (Auto) 19H, Urine Hyaline Casts (Auto) 0, Urine Bacteria (Auto) 1+H, Urine Squamous Epithelial Cells 0, Urine Sperm (Auto) 11/27/18 16:36: Bedside Glucose (Misc Panel) 298H 11/27/18 21:16: Bedside Glucose (Misc Panel) 396H 11/28/18 05:29: Immature Granulocyte % (Auto) 0.5, White Blood Count 4.2, Red Blood Count 4.05, Hemoglobin 10.9L, Hematocrit 36.1, Mean Corpuscular Volume 89.1, Mean Corpuscular Hemoglobin 26.9L, Mean Corpuscular Hemoglobin Concent 30.2L, Red Cell Distribution Width 17.2H, Platelet Count 164, Neutrophils (%) (Auto) 48.8, Lymphocytes (%) (Auto) 34.4, Monocytes (%) (Auto) 10.4H, Eosinophils (%) (Auto) 5.0H, Basophils (%) (Auto) 0.9, Neutrophils # (Auto) 2.1, Lymphocytes # (Auto) 1.5, Monocytes # (Auto) 0.4, Eosinophils # (Auto) 0.2, Basophils # (Auto) 0.0, Nucleated Red Blood Cells % (auto) 0.0, Anion Gap 6L, Glomerular Filtration Rate 44.6, Blood Urea Nitrogen 19H, Creatinine 1.25, Sodium Level 143, Potassium Level 3.8, Chloride Level 106, Carbon Dioxide Level 31, Calcium Level 8.6L CBC/BMP Laboratory Tests 11/28/18 05:29 Red Blood Count 4.05, Mean Corpuscular Volume 89.1, Mean Corpuscular Hemoglobin 26.9 L, Mean Corpuscular Hemoglobin Concent 30.2 L, Red Cell Distribution Width 17.2 H, Neutrophils (%) (Auto) 48.8, Lymphocytes (%) (Auto) 34.4, Monocytes (%) (Auto) 10.4 H, Eosinophils (%) (Auto) 5.0 H, Basophils (%) (Auto) 0.9, Neutrophils # (Auto) 2.1, Lymphocytes # (Auto) 1.5, Monocytes # (Auto) 0.4, Eosinophils # (Auto) 0.2, Basophils # (Auto) 0.0, Calcium Level 8.6 L Microbiology Microbiology 11/26/18 Blood Culture - Preliminary, Resulted No growth after 24 hours . All specim... 11/26/18 Blood Culture - Preliminary, Resulted No growth after 24 hours . All specim... 11/27/18 Urine Culture, Received Pending 11/26/18 Urine Culture - Final, Complete NUSRAT GUERRERO MD Nov 28, 2018 09:43
--- NOTE | 2018-11-28 12:41 | REP ---
Right lower extremity deep vein duplex ultrasound: The deep veins demonstrate normal compression, normal Doppler color flow and normal Doppler waveforms with respiration and augmentation from the popliteal vein to the common femoral vein. Impression: There is no right lower extremity deep vein thrombus. Electronically Signed by Sami Richter MD 11/28/2018 12:32 P
[2018-11-28 14:00] VITALS: BP 138/75
--- NOTE | 2018-11-28 15:18 | REP ---
RIGHT HIP, THREE VIEWS: Three views right hip are performed. There is no acute fracture or dislocation. There is a total hip prosthesis which appears to be in good position and well-aligned. IMPRESSION: No acute fracture or dislocation. Electronically Signed by Sami Mesa MD 11/29/2018 12:11 A
--- NOTE | 2018-11-28 15:58 | CR.PDOC ---
[facility] Pain Clinic Consultation General Date of Consultation: 11/28/18 Chief Complaint The patient is a 73-year-old female admitted with a reason for visit of UTI. History of Present Illness 73 year old female who presented to the ER and was diagnosed with a UTI. She has complaints of right hip pain. She has been taking Percocet for this on the floor and admits the the medication does help her but it takes a while to "kick in" after she takes it. Home Medications Scheduled Allopurinol (Zyloprim) 300 Mg Tab, 300 MG PO DAILY, (Reported) Ammonium Lactate (Ammonium Lactate) 12 % Cre, 1 DOSE TOP BID, (Reported) APPLY TO LEGS/FEET Apixaban (Eliquis) 5 Mg Tablet, 5 MG PO BID, (Reported) Atenolol (Atenolol) 25 Mg Tablet, 25 MG PO BID, (Reported) Atorvastatin Calcium (Atorvastatin Calcium) 10 Mg Tab, 10 MG PO DAILY, (Repo rted) Betamethasone Mala (Betamethasone Valerate) 45 Gm Oint, 1 DOSE TOP QHS, (Reported) USES ON LEGS FOR HOTSPOTS Calcitriol (Calcitriol) 0.25 Mcg Cap, 0.25 MCG PO DAILY, (Reported) Colchicine (Colchicine) 0.6 Mg Tab, 0.6 MG PO DAILY, (Reported) Cyclosporine (Restasis) 0.05 % Emu, 1 DROP OU BID, (Reported) Docusate Sodium (Docusate Sodium) 100 Mg Cap, 100 MG PO BID, (Reported) Duloxetine Hcl (Cymbalta) 60 Mg Capsule.dr, 60 MG PO DAILY, (Reported) Ergocalciferol (Vitamin D2) (Vitamin D2) 50,000 Unit Cap, 50,000 UNIT PO MTHLY, (Reported) TAKES ON 1ST OF THE MONTH Insulin Degludec (Tresiba Flextouch U-100) 100 Unit/Ml Inj, 96 UNIT SC DAILY, (Reported) TAKES BEFORE BREAKFAST Insulin Human Lispro (Humalog) 1 Units/0.01 Ml Inj, 1 DOSE SC AC, (Reported) PER SLIDING SCALE < 70: TREAT LBS WITH 15 G CARBS 70 -90: 46, 46, 46 91-130: 52, 52, 52, 8 FOR NIGHT SNACK 131-150: 56, 56, 56, 10 FOR NIGHT SNACK 151-200: 60, 60, 60, 12 FOR NIGHT SNACK, 4 UNITS NPO 201-250: 66, 66, 66, 14 FOR NIGHT SNACK, 6 UNITS NPO 251-300: 72, 72, 72, 16 FOR NIGHT SNACK, 8 UNITS NPO 301-350: 78, 78, 78, 18 FOR NIGHT SNACK, 10 UNITS NPO 351-400: 82, 82, 82, 20 FOR NIGHT SNACK, 14 UNITS NPO 401-450: 86, 86, 86, 22 FOR NIGHT SNACK, 18 UNITS NPO > 450: 90, 90, 90, 24 FOR NIGHT SNACK, 22 UNITS NPO Levetiracetam (Levetiracetam ER) 500 Mg Lindsay, 500 MG PO BID, (Reported) Omeprazole (Omeprazole) 20 Mg Cap, 20 MG PO BID, (Reported) Pregabalin (Lyrica) 150 Mg Capsule, 150 MG PO BID, (Reported) Sucralfate (Sucralfate) 1 Gm Tab, 1 GM PO BID, (Reported) Torsemide (Torsemide) 20 Mg Tablet, 60 MG PO BID, (Reported) Triamcinolone Acet (Triamcinolone Acetonide 0.025% Crm) 1 Dose/80 Gm Cream, 1 DOSE TOP BID, (Reported) APPLIES ON THIGHS Scheduled PRN Acetaminophen (Tylenol Arthritis) 650 Mg Tab, 650 MG PO Q8H PRN for PAIN, (Reported) Albuterol Sulf (Albuterol Sulfate) 2.5 Mg/3 Ml Nebu, 2.5 MG INH Q4H PRN for SHORTNESS OF BREATH, (Reported) Halobetasol Propionate (Halobetasol Propionate) 0.05 % Cre, 1 DOSE TOP for RASH, (Reported) APPLIES UNDER FOLDS AND BREASTS Magnesium Hydroxide (Milk of Magnesia) 400 Mg/5 Ml Oral.susp, 30 ML PO DAILY PRN for CONSTIPATION, (Reported) Nystatin (Nystatin) 100,000 Unit/Gm Cre, 1 DOSE TOP BID PRN for RASH, (Reported) UNDER BREASTS AND GROIN AREA Nystatin (Nystatin Oint) 30 Gm Oint, 1 DOSE TOP TID PRN for RASH, (Reported) APPLIES AROUND VAGINAL AREA Ondansetron HCl (Ondansetron HCl) 4 Mg Tab, 4 MG PO QID PRN for NAUSEA OR VOMITING, (Reported) Allergies Coded Allergies: Cephalosporins (Verified Allergy, Intermediate, hives, 07/14/18) Penicillins (Verified Allergy, Intermediate, hives, 07/14/18) Sulfa (Sulfonamide Antibiotics) (Verified Allergy, Intermediate, hives, 07/14/18) chlorpromazine (Verified Allergy, Intermediate, hiives, 07/14/18) loratadine (Verified Allergy, Intermediate, hives, 07/14/18) pentazocine (Verified Allergy, Intermediate, hives, 07/14/18) TAPE (Verified Allergy, Unknown, band-aids, 07/14/18) methadone (Verified Allergy, Unknown, 09/25/18) HAS HAD DILAUDID AND DEMEROL IN THE PAST Review of Systems Subjective HEENT: Reports: head aches, vision problems Pulmonary: Reports: shortness of breath (This morning ) Cardiovascular: Denies: chest pain Gastrointestinal: Denies: abdominal pain, diarrhea Physical Examination Physical Examination Vital Signs/I&O Vital Signs Date Time Temp Pulse Resp B/P (MAP) Pulse Ox O2 Delivery O2 Flow Rate FiO2 11/28/18 14:04 20 11/28/18 08:39 75 151/66 11/28/18 06:00 97.4 93 11/26/18 18:16 Room Air I&O- Last 24 Hours up to 6 AM 11/28/18 06:00 Intake Total 3830 ml Output Total 1915 ml Balance 1915 ml General Exam: Positive: alert, no acute distress, oriented times three Chest Exam: Positive: Clear to auscultation Heart Exam: Positive: Regular rate and rhythm Musculoskeletal Right hip tender to palpation, no erythema, ecchymosis, increased warmth, and/or skin eruptions noted Laboratory Data Labs 24H Laboratory Tests 2 11/27/18 16:36: Bedside Glucose (Misc Panel) 298H 11/27/18 21:16: Bedside Glucose (Misc Panel) 396H 11/28/18 05:29: Immature Granulocyte % (Auto) 0.5, White Blood Count 4.2, Red Blood Count 4.05, Hemoglobin 10.9L, Hematocrit 36.1, Mean Corpuscular Volume 89.1, Mean Corpuscular Hemoglobin 26.9L, Mean Corpuscular Hemoglobin Concent 30.2L, Red Cell Distribution Width 17.2H, Platelet Count 164, Neutrophils (%) (Auto) 48.8, Lymphocytes (%) (Auto) 34.4, Monocytes (%) (Auto) 10.4H, Eosinophils (%) (Auto) 5.0H, Basophils (%) (Auto) 0.9, Neutrophils # (Auto) 2.1, Lymphocytes # (Auto) 1.5, Monocytes # (Auto) 0.4, Eosinophils # (Auto) 0.2, Basophils # (Auto) 0.0, Nucleated Red Blood Cells % (auto) 0.0, Anion Gap 6L, Glomerular Filtration Rate 44.6, Blood Urea Nitrogen 19H, Creatinine 1.25, Sodium Level 143, Potassium Level 3.8, Chloride Level 106, Carbon Dioxide Level 31, Calcium Level 8.6L 11/28/18 11:41: Bedside Glucose (Misc Panel) 304H CBC/BMP Laboratory Tests 11/28/18 05:29 Red Blood Count 4.05, Mean Corpuscular Volume 89.1, Mean Corpuscular Hemoglobin 26.9 L, Mean Corpuscular Hemoglobin Concent 30.2 L, Red Cell Distribution Width 17.2 H, Neutrophils (%) (Auto) 48.8, Lymphocytes (%) (Auto) 34.4, Monocytes (%) (Auto) 10.4 H, Eosinophils (%) (Auto) 5.0 H, Basophils (%) (Auto) 0.9, Neutrophils # (Auto) 2.1, Lymphocytes # (Auto) 1.5, Monocytes # (Auto) 0.4, Eosinophils # (Auto) 0.2, Basophils # (Auto) 0.0, Calcium Level 8.6 L FSBS Laboratory Tests Test 11/27/18 16:36 11/27/18 21:16 11/28/18 11:41 Range/Units Bedside Glucose (Misc Panel) 298 396 304 83-110 MG/DL Microbiology Microbiology 11/26/18 Blood Culture - Preliminary, Resulted No growth after 24 hours . All specim... 11/26/18 Blood Culture - Preliminary, Resulted No growth after 24 hours . All specim... 11/27/18 Urine Culture, Received Pending 11/26/18 Urine Culture - Final, Complete Assessment Given presenting symptoms and results of physical exam recommend addition of Tizanidine 4mg every 8 hrs as needed. Recommendation and Plan Thank you for allowing us to participate in the care of your patient. Should you have any questions we will be glad to discuss this with you at any time please contact us here at the pain center at [phone]. KENROY HUERTA. [employer]PER[employer] Nov 28, 2018 15:58
[2018-11-28 16:56] LABS: C REACTIVE PROTEIN QUANTITATIV 0.72 MG/DL (0.00-0.30)
[2018-11-28] MEDS ORDERED: tiZANidine 4 MG TAB PO PRN (17:00)
[2018-11-28 22:00] VITALS: BP 117/57
[2018-11-28] MEDS: NS 1,000 ML IV SCH (22:27)
[2018-11-28] MEDS: ATORVASTATIN 10 MG TAB PO SCH (22:28)
[2018-11-28] MEDS: rOPINIRole 2MG TAB PO SCH (22:29)
[2018-11-28] MEDS: BETAMETHASONE VAL 0.1% OINT 15 GM TOP SCH (22:31)
[2018-11-29] MEDS: MEROPENEM INJ 500 MG in APPROPRIATE DILUENT 1 EA IV SCH ×3 (03:15→21:15)
[2018-11-29] MEDS: PERCOCET 5MG/325MG TAB PO PRN ×3 (05:22→21:18)
[2018-11-29 05:45] LABS: BASO % 1.1 % (0.0-1.0); EOS # 0.2 10^3/uL (0.0-0.50); EOS % 6.6 % (0.0-3.0); HEMATOCRIT 35.3 % (36.0-47.0); HEMOGLOBIN 10.7 g/dl (12.0-15.5); LYMPH # 1.2 10^3/uL (1.5-4.5); LYMPH % 33.9 % (24.0-44.0); MEAN CORPUSCULAR HEMOGLOBIN 26.9 pg (27.0-33.0); MEAN CORPUSCULAR HGB CONC 30.3 g/dl (32.0-36.5); MEAN CORPUSCULAR VOLUME 88.7 fl (80.0-96.0); MONO # 0.4 10^3/uL (0.0-0.8); MONO % 10.7 % (0.0-5.0); NEUTROPHILS # 1.7 10^3/uL (1.8-7.7); NEUTROPHILS % 47.4 % (36.0-66.0); PLATELET COUNT, AUTOMATED 147 10^3/uL (150-450); RED BLOOD COUNT 3.98 10^6/uL (4.00-5.40); WHITE BLOOD COUNT 3.6 10^3/uL (4.0-10.0)
[2018-11-29 06:00] VITALS: BP 121/63
[2018-11-29 06:04] LABS: CALCIUM LEVEL 8.8 MG/DL (8.8-10.2); CREATININE FOR GFR 1.15 MG/DL (0.55-1.30); GLOMERULAR FILTRATION RATE 49.1 (>39); POTASSIUM SERUM 4.1 MEQ/L (3.5-5.1)
[2018-11-29 06:05] LABS: ERYTHROCYTE SEDIMENTATION RATE 33 mm/hr (0-30)
[2018-11-29] MEDS: HumaLOG INSULIN (NovoLOG) PER UNIT SC SCH ×4 (08:51→21:17)
[2018-11-29] MEDS: DOCUSATE SODIUM 100 MG CAP PO SCH ×2 (08:51→21:16)
[2018-11-29] MEDS: LACTULOSE 20 GM/30 ML SYRUP UD PO SCH ×2 (08:51→21:15)
[2018-11-29] MEDS: LEVEMIR (INSULIN DETEMIR) 1 UNITS/0.01ML SC SCH (08:51)
[2018-11-29] MEDS: MIRALAX *UNIT DOSE* 17GM PACKET PO SCH ×2 (08:51→21:16)
[2018-11-29] MEDS: COLCHICINE 0.6 MG TAB PO SCH (08:52)
[2018-11-29] MEDS: levETIRAcetam **XR** 500 MG TABLET PO SCH ×2 (08:52→21:16)
[2018-11-29] MEDS: ALLOPURINOL 300 MG TAB PO SCH (08:52)
[2018-11-29] MEDS: DULoxetine 30 MG CAP (CYMBALTA) PO SCH (08:52)
[2018-11-29] MEDS: SUCRALFATE 1 GM TAB PO SCH ×2 (08:52→21:15)
[2018-11-29] MEDS: PREGABALIN 75 MG CAP(LYRICA) PO SCH ×2 (08:52→21:16)
[2018-11-29] MEDS: APIXABAN 5 MG TAB (ELIQUIS) PO SCH ×2 (08:52→21:16)
[2018-11-29] MEDS: OMEPRAZOLE 20 MG CAP PO SCH ×2 (08:52→21:16)
[2018-11-29] MEDS: TRIAMCINOLONE ACETONIDE 0.025 % 80 GM CREAM TOP SCH ×2 (08:54→21:19)
[2018-11-29] MEDS: ATENOLOL 25 MG TAB PO SCH ×2 (08:55→21:16)
[2018-11-29] MEDS: LACTIC ACID 12% LOTION 225 GM BTL TOP SCH ×2 (08:56→21:19)
[2018-11-29] MEDS: ONDANSETRON 4 MG TAB (S0181) PO PRN ×2 (11:23→18:14)
--- NOTE | 2018-11-29 12:22 | CR ---
DATE OF CONSULTATION: 11/28/2018 Asked to consult by the hospitalist for evaluation of recurrent urinary tract infection. Mrs. Stern is known to me from multiple previous admissions. She has a history of urinary retention, diabetic neuropathy, and recurrent urinary tract infection. She had a suprapubic catheter placed by Dr. Rivera. Since then, she has had a decrease number of infections. The patient presented to the hospital complaining of not feeling well for about 5 days prior to admission. This was associated with chills and general malaise, feeling nauseous, difficulty eating, and severe headache. The patient also has chronic right hip pain that was getting worse. The patient was started on intravenous (IV) Levaquin, then switched to meropenem for a presumptive urinary tract infection. She stated her urine was cloudy, but she did not have abdominal pain or flank pain. She does complain of severe right hip pain. Her past medical history is significant for insulin-dependent diabetes, dyslipidemia, morbid obesity, hypertension, COPD, history of deep venous thrombosis (DVT), gout, migraine, seizure disorder, gastroesophageal reflux disease, major depression, chronic kidney disease, degenerative disc disease, obstructive sleep apnea, history of Clostridium (C) difficile infection, obesity, hypoventilation syndrome, restless leg syndrome, chronic constipation, diastolic dysfunction, ejection fraction of 65%. ALLERGIES: CEPHALOSPORIN, CHLORPROMAZINE, LORATADINE, PENICILLIN, SULFA, METHADONE, and LATEX. FAMILY HISTORY: Father at 55 from myocardial infarction ([place]), mother from cancer at 59. SOCIAL HISTORY: She lives with her ex-. They have three children. One child is . She loves to bake. She uses mostly a scooter. She only is able to pivot out of bed, do two steps to the commode or the chair. She would like to be able to walk again but her right hip hurts too much. REVIEW OF SYSTEMS: She has chills and night sweats, weakness, severe headache. She has no cough. She has mild shortness of breath. She has chronic nausea, which has gotten worse, but no vomiting. No abdominal pain. PHYSICAL EXAM: Temperature is 97.4, pulse 75, respirations 16, blood pressure 116/52, oxygen saturation 93% on room air. She has been afebrile for the past 48 hours. Heart: Normal S1, S2. No murmurs, rubs, or gallops. Lungs are clear. No wheezes, rales, or rhonchi. Abdomen: Morbidly obese, soft, nontender. Right hip: Excruciating tenderness especially with hip flexion and external rotation. No effusion noted. She has a healed scar of prosthesis. Knees: No swelling. Extremities: No clubbing, cyanosis. Trace edema. Oropharynx: Dry mucosa with loose teeth. Neurologic exam: Alert, oriented times three. Neck: No stiffness. LABS: White count is 4.2, hemoglobin 10.9, hematocrit 36.1, platelets 164, 48% neutrophils, 34% lymphocytes, 10% monocytes, 5% eosinophils. Sodium 143, potassium 3.8, chloride 106, bicarbonate 31, BUN 19, creatinine 1.25, which is down from 1.45 on admission, glucose 278, calcium 8.6, CRP 0.72. Urinalysis on 11/26/2018 had too many white blood cells, 13 red, but the urinalysis done on 11/27/2018 had 16 white cells and 19 red cells. Urine culture is still pending. Blood cultures are negative. Hip x-ray showed well-seated prosthesis with no fracture. No evidence of infection. Lower extremity ultrasound: No DVT. IMPRESSION: This is a 73-year-old female who was admitted with vague nonspecific complaints, including severe headache, chills, not feeling well with malaise. No definite urinary tract symptoms except that the urine was cloudy. The patient has been started on IV meropenem 500 mg every 8 hours on 11/27/2018. She does not feel much improved yet. I am not convinced that this is a urinary tract infection. She does not have a white count, very minimally elevated C-reactive protein (CRP). The patient has multiple reasons to have headache. She has chronic arachnoiditis, which causes her nausea. She has severe diabetic gastroparesis, which also could explain her nausea. She could have had a viral illness as well. PLAN: Wait for urine culture results. I am concerned that she has had multiple episode of multidrug resistant Pseudomonas, vancomycin-resistant Enterococci (VRE), C difficile infection that if we keep treating her symptoms as urinary tract infection she will eventually not have any more options for treating resistant pathogens. MEDICATIONS: - Requip 2 mg by mouth nightly - Zanaflex 4 mg by mouth every 8 hours as needed - lactulose 30 mg by mouth twice a day - MiraLAX 1 packet by mouth twice a day - meropenem 500 every 8 hours IV - allopurinol 300 mg daily - Lac-Hydrin twice a day - Eliquis 5 mg by mouth twice a day - atenolol 25 mg by mouth twice a day - colchicine 0.6 mg by mouth daily - Colace 100 mg by mouth twice a day - Cymbalta 60 mg by mouth daily - heparin 500 mg by mouth twice a day - omeprazole 20 mg twice a day - Lyrica 150 mg twice a day - insulin 50 units subcu daily - Carafate 1 gram by mouth twice a day - Percocet 1 tablet every 6 as needed - She received also one dose of levofloxacin on 11/27/2018.
[2018-11-29] MEDS: NS 1,000 ML IV SCH (12:42)
--- NOTE | 2018-11-29 12:56 | IPNPDOC ---
Date Seen The patient was seen on 11/29/18. Progress Note SUBJECTIVE: c/o right hip and right shoulder pain 5/10 at rest, worse with movement. seen by pain mgt -tizanidine prn q8hrs, which the patient has not tried yet. denies suprapubic pain, dysuria, urgency, frequency, recurrent fevers chills or flank pain. denies malodorous urine. OBJECTIVE: PHYSICAL EXAM: VITAL SIGNS: As below. Generally: no distress HEAD: Atraumatic, normocephalic. PERRL 3mm pupils. NECK: Supple. No jugular venous distention (JVD). no cervical LAD LUNGS: diminished clear b/l no wheezing or rales HEART: S1, S2 audible. No murmurs appreciated. ABDOMEN: Soft. Positive bowel sounds. indwelling prater with tenderness no rebound or guarding no CVA tenderness EXT: b/l edema (+) Labs , microbiology, Radiology : Reviewed ASSESSMENT and PLAN: Patient is a 73-year-old female with a extensive past medical history of morbid obesity, COPD, MATT, Obesity hypoventilation , gout, c hronic pain, hypertension, diabetes, hyperlipidemia, morbid obesity,urinary retention, chronic recurrent urinary tract infections (UTIs), chronic kidney disease (CKD) III admitted for UTI. Recurrent UTI secondary to chronic indwelling catheter with history of pseudomonas resistant to levaquin, and e. coli resistant to levaquin discontinued levaquin which was started on admission Pseudomonas resistant to levaquin on urine cx on meropenem x 7days-seizure precautions due to h/o seizure d/o ID consulted-to decide if pt can be dc home on iv meropenem like on previous admission. Neurogenic Urinary retention with incomplete voiding urology consulted sees Dr. Rivera as outpt seen by Dr. Up chronic indwelling catheter causing recurrent UTIs avoid constipation bladder scan bid to evaluate for post void residual no intervention per Dr. Rivera-and brenda kessler as outpt at hospital discharge Insulin-dependent diabetes, uncontrolled she is on a consistent carb 2 g sodium diet by mouth on long acting and short acting insulin changed to bid dosing on levemir for better glycemic control Obstructive sleep apnea: Continue with CPAP Obesity: Complicating care Obesity hypoventilation syndrome: Complicating care Chronic hypoxic respiratory failure: She uses 2 L at her baseline intermittently at home as outlined above Asthma: As outlined above Gout: Continue Allopurinol with colchicine DVT: Status post IVC filter with persistent b/l LE edema Hypertension She is continued on bisoprolol Hyperlipidemia continue atorvastatin Migraines and seizure disorder: The patient is continued on Keppra and Lyrica Fioricet one tablet every six hours as needed for migraine headache. Gastroesophageal reflux disease The patient is on a PPI and Carafate Vitamin D deficiency her monthly supplementation is currently on hold Chronic anemia due to chronic disease and iron deficiency Chronic diastolic congestive heart failure: Appears to be euvolemic at this time continue torsemide and spironolactone Irritable bowel syndrome with constipation Her home bowel regimen is in place milk of mag, lactulose Restless leg syndrome Cervicalgia / Myofascial pain syndrome/ Migraine headache. sees pain management as outpt, HAS spinal cord stimulator. Renal stone asymptomatic History of C diff right hip pain,chronic Xrayof right hip negative for fracture or dislocation tizanidine prn per pain mgt encoouraged ambulation chronic LE edema venous doppler of the right LE. DVT prophylaxis on warfarin. VS, I&O, 24H, [facility] Vital Signs/I&O Vital Signs Date Time Temp Pulse Resp B/P (MAP) Pulse Ox O2 Delivery O2 Flow Rate FiO2 11/29/18 08:55 75 146/69 11/29/18 06:00 98.1 18 90 11/26/18 18:16 Room Air I&O- Last 24 Hours up to 6 AM 11/29/18 06:00 Intake Total 4950 ml Output Total 4775 ml Balance 175 ml Laboratory Data 24H LABS Laboratory Tests 2 11/28/18 16:44: Bedside Glucose (Misc Panel) 346H 11/28/18 20:42: Bedside Glucose (Misc Panel) 320H 11/29/18 05:32: Immature Granulocyte % (Auto) 0.3, White Blood Count 3.6L, Red Blood Count 3.98L, Hemoglobin 10.7L, Hematocrit 35.3L, Mean Corpuscular Volume 88.7, Mean Corpuscular Hemoglobin 26.9L, Mean Corpuscular Hemoglobin Concent 30.3L, Red Cell Distribution Width 17.1H, Platelet Count 147L, Neutrophils (%) (Auto) 47.4, Lymphocytes (%) (Auto) 33.9, Monocytes (%) (Auto) 10.7H, Eosinophils (%) (Auto) 6.6H, Basophils (%) (Auto) 1.1H, Neutrophils # (Auto) 1.7L, Lymphocytes # (Auto) 1.2L, Monocytes # (Auto) 0.4, Eosinophils # (Auto) 0.2, Basophils # (Auto) 0.0, Nucleated Red Blood Cells % (auto) 0.0, Erythrocyte Sedimentation Rate 33H, Anion Gap 3L, Glomerular Filtration Rate 49.1, Blood Urea Nitrogen 13, Creatinine 1.15, Sodium Level 141, Potassium Level 4.1, Chloride Level 108H, Carbon Dioxide Level 30, Calcium Level 8.8 11/29/18 11:34: Bedside Glucose (Misc Panel) 303H CBC/BMP Laboratory Tests 11/29/18 05:32 Red Blood Count 3.98 L, Mean Corpuscular Volume 88.7, Mean Corpuscular Hemoglobin 26.9 L, Mean Corpuscular Hemoglobin Concent 30.3 L, Red Cell Distribution Width 17.1 H, Neutrophils (%) (Auto) 47.4, Lymphocytes (%) (Auto) 33.9, Monocytes (%) (Auto) 10.7 H, Eosinophils (%) (Auto) 6.6 H, Basophils (%) (Auto) 1.1 H, Neutrophils # (Auto) 1.7 L, Lymphocytes # (Auto) 1.2 L, Monocytes # (Auto) 0.4, Eosinophils # (Auto) 0.2, Basophils # (Auto) 0.0, Calcium Level 8.8 Microbiology Microbiology 11/26/18 Blood Culture - Preliminary, Resulted No Growth after 48 hours. All Specime... 11/26/18 Blood Culture - Preliminary, Resulted No Growth after 48 hours. All Specime... 11/27/18 Urine Culture - Final, Complete Pseudomonas Aeruginosa 11/26/18 Urine Culture - Final, Complete NUSRAT GUERRERO MD Nov 29, 2018 12:56
[2018-11-29 14:00] VITALS: BP 145/59
--- NOTE | 2018-11-29 16:36 | CR.PDOC ---
General Date of Consultation: Nov 29, 2018 Referring Provider: CHENG MORAES MD Primary Care Physician: Jr Villalobos Collins Attending Physician: Orlin Kelly MD Consultation REASON FOR CONSULTATION/CHIEF COMPLAINT: I was contacted by buyer planner yesterday evening about seeing Mrs. Stern to see if we can offerher any improvement in thee quality of her life through [facility]. Maricarmen has multiple medical problems including chronic right hip pain, morbid obesity, MATT on CPAP, Type 2 DM, recurrent UTI s/p SP tube placemetn done by Dr. Rivera, CHF, HTN, COPD, seizure disorder, RLS, chronic constipatin, GERD, diastolic dysfunction EF of 65%. HISTORY OF PRESENT ILLNESS: She is currently admitted here with UTI, cultures pending. She has a history of VRE, multidrug resistant pseudomonas, and C Diff infection. Her incidence of UTI decreased followng SP tube placement. She developed headache and general malaise which usually precedes her UTI. A|She preented to ED after 5 days of these symptoms and was admitted. SHe lives at home with her ex-spouse who she reports is very supportive. She has problems with mobility due to arachnoiditis. She is resisstant to trying and long acting opiates ( apparently has allergy to methadone though she does not recall what prescisely ) stating one of her sons had problems with alcohol and opiate nilay ction and she is fearful of having opiate addiction. Consultation done by Dr Art indicates concern about treating UTI if she is actually only colonized as her symptoms of headache, nausea and malaise could be from any etiology aside from UTI and cloudy urine could also be related to multiple etiologies other than infection. Maricarmen reported it is very difficult for her to get to appointments. She stated she sees Dr. Gabriel for her right hip pain and cervical apin but he has told her she is really no longer appropriate for injections so at this point her management would be strictly with medications. She stated Percocet, Extra Strength Tylonol Arthritis, pregabalin and duloxetin have all been helpful for her hip pain and neuropathy pain from TYpe 2 DM. She has a home health aide 5 days a week. She reported her mobility is largely with motorized scooter; she can stand and pivot with assistance. ALLERGIES: Please see below. HOME MEDICATIONS: Please see below. PAST MEDICAL HISTORY: 1. combined diastolic/systolic heart failure 2. COPD 3. arachnoiditis 4. right hip pain 5. COPD 6. MATT with CPAP 7. Type 2 DM with Neuropathy and gastroparesis 8. morbid obesity 9. depression 10. chronic nausea and constipation FAMILY HISTORY: Father: CAD, [place] Mother: "mental problems" alcohol abuse Siblings: B: COPD, bronchitis cardiac issues; S- Type 2 DM; Sis- UTI, Sis- UTI Children: 3 sons, 2 living 1st son in [place] A+W, 2nd son lives locally alcoholism; 3rd son age 30 by suicide, history of polysubstance abuse Hereditary Diseases: NA Unexpected deaths due to medical reasons: NA SOCIAL HISTORY: Marital status and/or living arrangements: from supportive with whom she still lives. Children: 3 sons, 2 living Employment: disabled Tobacco use:former smoker ETOH:none currently Illicit drug use:none IV drug use: none Other relevant social factors: NA REVIEW OF SYSTEMS: CONSTITUTIONAL: denies feves, chills, night sweats HEENT: MATT, no sinus pain or pressure, no vision changes CARDIOVASCULAR: denies chest pain or palpitations. Some edema at times in lower extremities RESPIRATORY: +dyspnea at rest, MATT GENITOURINARY: SP tube, no current burning MUSCULOSKELETAL: right hip pain, back pain, lower extremity weakness GASTROINTESTINAL: gastroparesis, constipation, chronically uses Miralax SKIN: lump on medial right lower leg NEUROLOGICAL: denies tremors, history of falls, +headaches PSYCHIATRIC: depression, denies SI/HI ENDOCRINE: Type 2 DM HEMATOLOGIC/LYMPHATIC: anemia, gets iron infusions and PRBC transfusions at times ALLERGIC/IMMUNOLOGIC: NA. PHYSICAL EXAMINATION: VITAL SIGNS: Please see below. GENERAL APPEARANCE: Morbidly obese female sleepingin bed, easily arousable. Pleasant cooperative HEENT: Edentulous, mucous membranes moist RESPIRATORY: dyspneic while talking, poor air movement CARDIOVASCULAR: RRR ABDOMEN: Obese, +BS throughout, +borborygmi EXTREMITIES: no edema noted. No cyanosis NEUROLOGICAL: no tremors, lower extremity weakness PSYCHIATRIC: euthymic LABORATORY DATA: Please see below. ASSESSMENT/PLAN: 1. Chronic right hip pain 2. COPD 3. CHF 4. Chronic UTI Plan: I spoke with Maricarmen about [facility] and how we may be able to help her manage her symptoms at home. She agreed to allow me to cnncect iwth her PCP, Dr. Villalobos and her pain management MD, Dr. Gabriel regarding her following up with me ( and my psychiatric social worker supervisor ) at [facility]. I did meet with her who arrived while I was seeing Maricarmen and he understands what we have to offer as well. Vital Signs/I&O Vital Signs Date Time Temp Pulse Resp B/P (MAP) Pulse Ox O2 Delivery O2 Flow Rate FiO2 11/29/18 14:58 18 11/29/18 14:00 97.8 75 145/59 (87) 93 11/26/18 18:16 Room Air I&O- Last 24 Hours up to 6 AM 11/29/18 06:00 Intake Total 4950 ml Output Total 4775 ml Balance 175 ml Laboratory Data Labs 24H Laboratory Tests 2 11/28/18 16:44: Bedside Glucose (Misc Panel) 346H 11/28/18 20:42: Bedside Glucose (Misc Panel) 320H 11/29/18 05:32: Immature Granulocyte % (Auto) 0.3, White Blood Count 3.6L, Red Blood Count 3.98L, Hemoglobin 10.7L, Hematocrit 35.3L, Mean Corpuscular Volume 88.7, Mean Corpuscular Hemoglobin 26.9L, Mean Corpuscular Hemoglobin Concent 30.3L, Red Cell Distribution Width 17.1H, Platelet Count 147L, Neutrophils (%) (Auto) 47.4, Lymphocytes (%) (Auto) 33.9, Monocytes (%) (Auto) 10.7H, Eosinophils (%) (Auto) 6.6H, Basophils (%) (Auto) 1.1H, Neutrophils # (Auto) 1.7L, Lymphocytes # (Auto) 1.2L, Monocytes # (Auto) 0.4, Eosinophils # (Auto) 0.2, Basophils # (Auto) 0.0, Nucleated Red Blood Cells % (auto) 0.0, Erythrocyte Sedimentation Rate 33H, Anion Gap 3L, Glomerular Filtration Rate 49.1, Blood Urea Nitrogen 13, Creatinine 1.15, Sodium Level 141, Potassium Level 4.1, Chloride Level 108H, Carbon Dioxide Level 30, Calcium Level 8.8 11/29/18 11:34: Bedside Glucose (Misc Panel) 303H CBC/BMP Laboratory Tests 11/29/18 05:32 Red Blood Count 3.98 L, Mean Corpuscular Volume 88.7, Mean Corpuscular Hemoglobin 26.9 L, Mean Corpuscular Hemoglobin Concent 30.3 L, Red Cell Distribution Width 17.1 H, Neutrophils (%) (Auto) 47.4, Lymphocytes (%) (Auto) 33.9, Monocytes (%) (Auto) 10.7 H, Eosinophils (%) (Auto) 6.6 H, Basophils (%) (Auto) 1.1 H, Neutrophils # (Auto) 1.7 L, Lymphocytes # (Auto) 1.2 L, Monocytes # (Auto) 0.4, Eosinophils # (Auto) 0.2, Basophils # (Auto) 0.0, Calcium Level 8.8 Microbiology Microbiology 11/26/18 Blood Culture - Preliminary, Resulted No Growth after 48 hours. All Specime... 11/26/18 Blood Culture - Preliminary, Resulted No Growth after 48 hours. All Specime... 11/27/18 Urine Culture - Final, Complete Pseudomonas Aeruginosa 11/26/18 Urine Culture - Final, Complete Allergies Coded Allergies: Cephalosporins (Verified Allergy, Intermediate, hives, 07/14/18) Penicillins (Verified Allergy, Intermediate, hives, 07/14/18) Sulfa (Sulfonamide Antibiotics) (Verified Allergy, Intermediate, hives, 07/14/18) chlorpromazine (Verified Allergy, Intermediate, hiives, 07/14/18) loratadine (Verified Allergy, Intermediate, hives, 07/14/18) pentazocine (Verified Allergy, Intermediate, hives, 07/14/18) TAPE (Verified Allergy, Unknown, band-aids, 07/14/18) methadone (Verified Allergy, Unknown, 09/25/18) HAS HAD DILAUDID AND DEMEROL IN THE PAST Home Medications Scheduled Allopurinol (Zyloprim) 300 Mg Tab, 300 MG PO DAILY, (Reported) Ammonium Lactate (Ammonium Lactate) 12 % Cre, 1 DOSE TOP BID, (Reported) APPLY TO LEGS/FEET Apixaban (Eliquis) 5 Mg Tablet, 5 MG PO BID, (Reported) Atenolol (Atenolol) 25 Mg Tablet, 25 MG PO BID, (Reported) Atorvastatin Calcium (Atorvastatin Calcium) 10 Mg Tab, 10 MG PO DAILY, (Reported) Betamethasone Mala (Betamethasone Valerate) 45 Gm Oint, 1 DOSE TOP QHS, (Reported) USES ON LEGS FOR HOTSPOTS Calcitriol (Calcitriol) 0.25 Mcg Cap, 0.25 MCG PO DAILY, (Reported) Colchicine (Colchicine) 0.6 Mg Tab, 0.6 MG PO DAILY, (Reported) Cyclosporine (Restasis) 0.05 % Emu, 1 DROP OU BID, (Reported) Docusate Sodium (Docusate Sodium) 100 Mg Cap, 100 MG PO BID, (Reported) Duloxetine Hcl (Cymbalta) 60 Mg Capsule.dr, 60 MG PO DAILY, (Reported) Ergocalciferol (Vitamin D2) (Vitamin D2) 50,000 Unit Cap, 50,000 UNIT PO MTHLY, (Reported) TAKES ON 1ST OF THE MONTH Insulin Degludec (Tresiba Flextouch U-100) 100 Unit/Ml Inj, 96 UNIT SC DAILY, (Reported) TAKES BEFORE BREAKFAST Insulin Human Lispro (Humalog) 1 Units/0.01 Ml Inj, 1 DOSE SC AC, (Reported) PER SLIDING SCALE < 70: TREAT LBS WITH 15 G CARBS 70 -90: 46, 46, 46 91-130: 52, 52, 52, 8 FOR NIGHT SNACK 131-150: 56, 56, 56, 10 FOR NIGHT SNACK 151-200: 60, 60, 60, 12 FOR NIGHT SNACK, 4 UNITS NPO 201-250: 66, 66, 66, 14 FOR NIGHT S NACK, 6 UNITS NPO 251-300: 72, 72, 72, 16 FOR NIGHT SNACK, 8 UNITS NPO 301-350: 78, 78, 78, 18 FOR NIGHT SNACK, 10 UNITS NPO 351-400: 82, 82, 82, 20 FOR NIGHT SNACK, 14 UNITS NPO 401-450: 86, 86, 86, 22 FOR NIGHT SNACK, 18 UNITS NPO > 450: 90, 90, 90, 24 FOR NIGHT SNACK, 22 UNITS NPO Levetiracetam (Levetiracetam ER) 500 Mg Lindsay, 500 MG PO BID, (Reported) Omeprazole (Omeprazole) 20 Mg Cap, 20 MG PO BID, (Reported) Pregabalin (Lyrica) 150 Mg Capsule, 150 MG PO BID, (Reported) Sucralfate (Sucralfate) 1 Gm Tab, 1 GM PO BID, (Reported) Torsemide (Torsemide) 20 Mg Tablet, 60 MG PO BID, (Reported) Triamcinolone Acet (Triamcinolone Acetonide 0.025% Crm) 1 Dose/80 Gm Cream, 1 DOSE TOP BID, (Reported) APPLIES ON THIGHS Scheduled PRN Acetaminophen (Tylenol Arthritis) 650 Mg Tab, 650 MG PO Q8H PRN for PAIN, (Reported) Albuterol Sulf (Albuterol Sulfate) 2.5 Mg/3 Ml Nebu, 2.5 MG INH Q4H PRN for SHORTNESS OF BREATH, (Reported) Halobetasol Propionate (Halobetasol Propionate) 0.05 % Cre, 1 DOSE TOP for RASH, (Reported) APPLIES UNDER FOLDS AND BREASTS Magnesium Hydroxide (Milk of Magnesia) 400 Mg/5 Ml Oral.susp, 30 ML PO DAILY PRN for CONSTIPATION, (Reported) Nystatin (Nystatin) 100,000 Unit/Gm Cre, 1 DOSE TOP BID PRN for RASH, (Reported) UNDER BREASTS AND GROIN AREA Nystatin (Nystatin Oint) 30 Gm Oint, 1 DOSE TOP TID PRN for RASH, (Reported) APPLIES AROUND VAGINAL AREA Ondansetron HCl (Ondansetron HCl) 4 Mg Tab, 4 MG PO QID PRN for NAUSEA OR VOMITING, (Reported) Laura MENDOZA ADJUSTER LEADER Nov 29, 2018 16:36
[2018-11-29] MEDS: BETAMETHASONE VAL 0.1% OINT 15 GM TOP SCH (21:00)
[2018-11-29] MEDS: ATORVASTATIN 10 MG TAB PO SCH (21:16)
[2018-11-29] MEDS: rOPINIRole 2MG TAB PO SCH (21:16)
[2018-11-29 22:00] VITALS: BP 141/61
[2018-11-30] MEDS: MEROPENEM INJ 500 MG in APPROPRIATE DILUENT 1 EA IV SCH ×3 (04:52→21:57)
[2018-11-30 06:00] VITALS: BP 140/68
[2018-11-30 06:20] LABS: BASO % 0.8 % (0.0-1.0); EOS # 0.2 10^3/uL (0.0-0.50); EOS % 5.5 % (0.0-3.0); HEMATOCRIT 34.7 % (36.0-47.0); HEMOGLOBIN 10.6 g/dl (12.0-15.5); LYMPH # 1.1 10^3/uL (1.5-4.5); LYMPH % 27.6 % (24.0-44.0); MEAN CORPUSCULAR HEMOGLOBIN 27.7 pg (27.0-33.0); MEAN CORPUSCULAR HGB CONC 30.5 g/dl (32.0-36.5); MEAN CORPUSCULAR VOLUME 90.6 fl (80.0-96.0); MONO # 0.5 10^3/uL (0.0-0.8); MONO % 12.2 % (0.0-5.0); NEUTROPHILS # 2.1 10^3/uL (1.8-7.7); NEUTROPHILS % 53.4 % (36.0-66.0); PLATELET COUNT, AUTOMATED 138 10^3/uL (150-450); RED BLOOD COUNT 3.83 10^6/uL (4.00-5.40); WHITE BLOOD COUNT 3.8 10^3/uL (4.0-10.0)
[2018-11-30 06:43] LABS: CALCIUM LEVEL 8.9 MG/DL (8.8-10.2); CREATININE FOR GFR 1.08 MG/DL (0.55-1.30); GLOMERULAR FILTRATION RATE 52.8 (>39); POTASSIUM SERUM 4.3 MEQ/L (3.5-5.1)
[2018-11-30] MEDS: LEVEMIR (INSULIN DETEMIR) 1 UNITS/0.01ML SC SCH ×2 (08:31→21:58)
[2018-11-30] MEDS: HumaLOG INSULIN (NovoLOG) PER UNIT SC SCH ×4 (08:31→21:58)
[2018-11-30] MEDS: LACTULOSE 20 GM/30 ML SYRUP UD PO SCH ×2 (08:32→21:57)
[2018-11-30] MEDS: DOCUSATE SODIUM 100 MG CAP PO SCH ×2 (08:32→21:57)
[2018-11-30] MEDS: DULoxetine 30 MG CAP (CYMBALTA) PO SCH (08:32)
[2018-11-30] MEDS: OMEPRAZOLE 20 MG CAP PO SCH ×2 (08:32→21:57)
[2018-11-30] MEDS: COLCHICINE 0.6 MG TAB PO SCH (08:32)
[2018-11-30] MEDS: PREGABALIN 75 MG CAP(LYRICA) PO SCH ×2 (08:32→21:57)
[2018-11-30] MEDS: APIXABAN 5 MG TAB (ELIQUIS) PO SCH ×2 (08:32→21:57)
[2018-11-30] MEDS: SUCRALFATE 1 GM TAB PO SCH ×2 (08:32→21:57)
[2018-11-30] MEDS: ALLOPURINOL 300 MG TAB PO SCH (08:33)
[2018-11-30] MEDS: ATENOLOL 25 MG TAB PO SCH ×2 (08:33→21:58)
[2018-11-30] MEDS: PERCOCET 5MG/325MG TAB PO PRN ×3 (08:33→22:01)
[2018-11-30] MEDS: levETIRAcetam **XR** 500 MG TABLET PO SCH ×2 (08:33→21:57)
[2018-11-30] MEDS: TRIAMCINOLONE ACETONIDE 0.025 % 80 GM CREAM TOP SCH ×2 (08:34→21:59)
[2018-11-30] MEDS: LACTIC ACID 12% LOTION 225 GM BTL TOP SCH ×2 (08:34→21:59)
[2018-11-30] MEDS: MIRALAX *UNIT DOSE* 17GM PACKET PO SCH ×2 (08:34→21:57)
[2018-11-30] MEDS: NS 1,000 ML IV SCH (08:35)
[2018-11-30 14:00] VITALS: BP 158/70
--- NOTE | 2018-11-30 15:44 | IPNPDOC ---
Date Seen The patient was seen on 11/30/18. Progress Note SUBJECTIVE: slept better last night, appetite is adequate, and no c/o constipation/n/v. continues to c/o pain in her right hip and difficulty ambulating. per physical therapy, not safe for discharge. she denies suprapubic pain, dysuria, urgency, frequency, recurrent fevers chills or flank pain. denies malodorous urine. Pt open to using her port for access to complete 10 full days of iv meropenem-7 more days as outpt, but we are unable to schedule outpt home care today, and will plan for dc in am. OBJECTIVE: PHYSICAL EXAM: VITAL SIGNS: As below. Generally: no distress anicteric no use of acc respiratory muscles. slow to speak but baseline. HEAD: Atraumatic, normocephalic. NECK: Supple. No jugular venous distention (JVD). no cervical LAD LUNGS: diminished clear b/l no wheezing or rales HEART: S1, S2 audible. No murmurs appreciated. ABDOMEN: Soft. Positive bowel sounds. indwelling prater with tenderness no rebound or guarding no CVA tenderness EXT: b/l edema (+). right hip limited rom with flexion, extension due to pain. Labs , microbiology, Radiology : Reviewed ASSESSMENT and PLAN: Patient is a 73-year-old female with a extensive past medical history of morbid obesity, COPD, MATT, Obesity hypoventilation , gout, chronic pain, hypertension, diabetes, hyperlipidemia, ,urinary retention, chronic recurrent urinary tract infections (UTIs) with quinolone-resistant pseudomonas, ESBL E coli, chronic kidney disease (CKD) III admitted for UTI. Recurrent UTI secondary to chronic indwelling catheter with history of pseudomonas resistant to levaquin, and e. coli resistant to levaquin discontinued levaquin which was started on admission Pseudomonas resistant to levaquin on urine cx on meropenem x 10days-seizure precautions due to h/o seizure d/o ID recommended 10 days of iv merrem. RN to arrange home care for iv merrem via patient's port. Neurogenic Urinary retention with incomplete voiding urology consulted sees Dr. Rivera as outpt seen by Dr. Up chronic indwelling catheter causing recurrent UTIs avoid constipation bladder scan bid to evaluate for post void residual no intervention per Dr. Rivera-and brenda kessler as outpt at hospital discharge Insulin-dependent diabetes, uncontrolled she is on a consistent carb 2 g sodium diet by mouth on long acting and short acting insulin changed to bid dosing on levemir for better glycemic control Obstructive sleep apnea: Continue with CPAP Obesity: Complicating care Obesity hypoventilation syndrome: Complicating care Chronic hypoxic respiratory failure: She uses 2 L at her baseline intermittently at home as outlined above Asthma: As outlined above Gout: Continue Allopurinol with colchicine DVT: Status post IVC filter with persistent b/l LE edema Hypertension She is continued on bisoprolol Hyperlipidemia continue atorvastatin Migraines and seizure disorder: The patient is continued on Keppra and Lyrica Fioricet one tablet every six hours as needed for migraine headache. Gastroesophageal reflux disease The patient is on a PPI and Carafate Vitamin D deficiency her monthly supplementation is currently on hold Chronic anemia due to chronic disease and iron deficiency Chronic diastolic congestive heart failure: Appears to be euvolemic at this time continue torsemide and spironolactone Irritable bowel syndrome with constipation Her home bowel regimen is in place milk of mag, lactulose Restless leg syndrome Cervicalgia / Myofascial pain syndrome/ Migraine headache. sees pain management as outpt, HAS spinal cord stimulator. Renal stone asymptomatic History of C diff right hip pain,chronic Xrayof right hip negative for fracture or dislocation tizanidine prn per pain mgt encouraged ambulation has not been cleared by physical therapy for hospital discharge chronic LE edema venous doppler of the right LE negative. DVT prophylaxis on warfarin. disposition: medically stable for hospital discharge but will need home care to complete full 10 days iv merrem, awaiting physical therapy clearance. pt is wheelchair bound most of the time. VS, I&O, 24H, [facility] Vital Signs/I&O Vital Signs Date Time Temp Pulse Resp B/P (MAP) Pulse Ox O2 Delivery O2 Flow Rate FiO2 11/30/18 15:11 18 11/30/18 14:00 97.4 73 158/70 (99) 91 11/30/18 06:00 2.0 11/26/18 18:16 Room Air I&O- Last 24 Hours up to 6 AM 11/30/18 06:00 Intake Total 4496 ml Output Total 3925 ml Balance 571 ml Laboratory Data 24H LABS Laboratory Tests 2 11/29/18 16:30: Bedside Glucose (Misc Panel) 284H 11/29/18 20:51: Bedside Glucose (Misc Panel) 286H 11/30/18 06:01: Immature Granulocyte % (Auto) 0.5, White Blood Count 3.8L, Red Blood Count 3.83L, Hemoglobin 10.6L, Hematocrit 34.7L, Mean Corpuscular Volume 90.6, Mean Corpuscular Hemoglobin 27.7, Mean Corpuscular Hemoglobin Concent 30.5L, Red Cell Distribution Width 16.7H, Platelet Count 138L, Neutrophils (%) (Auto) 53.4, Lymphocytes (%) (Auto) 27.6, Monocytes (%) (Auto) 12.2H, Eosinophils (%) (Auto) 5.5H, Basophils (%) (Auto) 0.8, Neutrophils # (Auto) 2.1, Lymphocytes # (Auto) 1.1L, Monocytes # (Auto) 0.5, Eosinophils # (Auto) 0.2, Basophils # (Auto) 0.0, Nucleated Red Blood Cells % (auto) 0.0, Anion Gap 5L, Glomerular Filtration Rate 52.8, Blood Urea Nitrogen 13, Creatinine 1.08, Sodium Level 140, Potassium Level 4.3, Chloride Level 106, Carbon Dioxide Level 29, Calcium Level 8.9 11/30/18 11:34: Bedside Glucose (Misc Panel) 317H CBC/BMP Laboratory Tests 11/30/18 06:01 Red Blood Count 3.83 L, Mean Corpuscular Volume 90.6, Mean Corpuscular Hemoglobin 27.7, Mean Corpuscular Hemoglobin Concent 30.5 L, Red Cell Distribution Width 16.7 H, Neutrophils (%) (Auto) 53.4, Lymphocytes (%) (Auto) 27.6, Monocytes (%) (Auto) 12.2 H, Eosinophils (%) (Auto) 5.5 H, Basophils (%) (Auto) 0.8, Neutrophils # (Auto) 2.1, Lymphocytes # (Auto) 1.1 L, Monocytes # (Auto) 0.5, Eosinophils # (Auto) 0.2, Basophils # (Auto) 0.0, Calcium Level 8.9 Microbiology Microbiology 11/26/18 Blood Culture - Preliminary, Resulted No Growth after 72 hours. All specime... 11/26/18 Blood Culture - Preliminary, Resulted No Growth after 72 hours. All specime... 11/27/18 Urine Culture - Final, Complete Pseudomonas Aeruginosa 11/26/18 Urine Culture - Final, Complete NUSRAT GUERRERO MD Nov 30, 2018 15:44
[2018-11-30] MEDS ORDERED: MERO500I IV (15:47)
--- NOTE | 2018-11-30 15:57 | DS.PDOC ---
Discharge Summary General Date of Admission Nov 26, 2018 at 22:15 Date of Discharge 12/01/18 Discharge Summary CONSULTANTS: INFECTIOUS DISEASE -DR. CANO UROLOGIST: DR. UP, DR. MERCER PALLIATIVE CARE PAIN MANAGEMENT: TJ GARZA DISCHARGE DIAGNOSES: Pseudomonas UTI due to chronic indwelling catheter Malfunctioning/ Malpositioned Indwelling Catheter Neurogenic Urine Retention requiring indwelling cathter Morbid obesity bmi 36.9 Insulin-dependent diabetes, uncontrolled Obstructive sleep apneawith CPAP Obesity hypoventilation syndrome: Chronic hypoxic respiratory failure 2 L at her baseline intermittently at home Asthma Gout DVT, Status post IVC filter Hypertension Hyperlipidemia Migraines and seizure disorder: Gastroesophageal reflux disease Vitamin D deficiency anemia of chronic disease and iron deficiency Chronic diastolic congestive heart failure: Irritable bowel syndrome with constipation Restless leg syndrome Cervicalgia / Myofascial pain syndrome/ Migraine headache. Renal stone History of C diff right hip OA chronic LE edema Discharge Medications: pls see below History of presenting Illness: Patient is a 73-year-old female with a extensive past medical history of morbid obesity, COPD, MATT, Obesity hypoventilation , gout, chronic pain, hypertension, diabetes, hyperlipidemia, ,urinary retention, chronic recurrent urinary tract infections (UTIs) with quinolone-resistant pseudomonas, ESBL E coli, chronic kidney disease (CKD) III admitted for malpositioned, malfunctioning indwelling catheter evaluated by Urology and UTI due to levaquin resistant Pseudomonas. Hospital Course: Recurrent UTI secondary to chronic indwelling catheter with history of pseudomonas resistant to levaquin, and e. coli resistant to levaquin discontinued levaquin which was started on admission Pseudomonas resistant to levaquin on urine cx on meropenem x 10days-seizure precautions due to h/o seizure d/o ID recommended 10 days of iv merrem. RN to arrange home care for iv merrem via patient's port. Neurogenic Urinary retention with incomplete voiding urology consulted sees Dr. Mercer as outpt seen by Dr. Up chronic indwelling catheter causing recurrent UTIs avoid constipation bladder scan bid to evaluate for post void residual no intervention per Dr. Mercer-and brenda kessler as outpt at hospital discharge Insulin-dependent diabetes, uncontrolled she is on a consistent carb 2 g sodium diet by mouth on long acting and short acting insulin changed to bid dosing on levemir for better glycemic control Obstructive sleep apnea: Continue with CPAP Obesity: Complicating care Obesity hypoventilation syndrome: Complicating care Chronic hypoxic respiratory failure: She uses 2 L at her baseline intermittently at home as outlined above Asthma: As outlined above Gout: Continue Allopurinol with colchicine DVT: Status post IVC filter with persistent b/l LE edema Hypertension She is continued on bisoprolol Hyperlipidemia continue atorvastatin Migraines and seizure disorder: The patient is continued on Keppra and Lyrica Fioricet one tablet every six hours as needed for migraine headache. Gastroesophageal reflux disease The patient is on a PPI and Carafate Vitamin D deficiency her monthly supplementation is currently on hold Chronic anemia due to chronic disease and iron deficiency Chronic diastolic congestive heart failure: Appears to be euvolemic at this time continue torsemide and spironolactone Irritable bowel syndrome with constipation Her home bowel regimen is in place milk of mag, lactulose Restless leg syndrome Cervicalgia / Myofascial pain syndrome/ Migraine headache. sees pain management as outpt, HAS spinal cord stimulator. Renal stone asymptomatic History of C diff right hip pain,chronic Xrayof right hip negative for fracture or dislocation tizanidine prn per pain mgt encouraged ambulation has not been cleared by physical therapy for hospital discharge chronic LE edema venous doppler of the right LE negative. DVT prophylaxis on warfarin. Discharge laboratory data, imaging studies, microbiology: pls see below disposition: medically stable for hospital discharge but will need home care to complete full 10 days iv merrem Time spent on hospital discharge: 30 minutes. Vital Signs/I&Os Vital Signs Date Time Temp Pulse Resp B/P (MAP) Pulse Ox O2 Delivery O2 Flow Rate FiO2 11/30/18 15:11 18 11/30/18 14:00 97.4 73 158/70 (99) 91 11/30/18 06:00 2.0 11/26/18 18:16 Room Air I&O- Last 24 Hours up to 6 AM 11/30/18 06:00 Intake Total 4496 ml Output Total 3925 ml Balance 571 ml Laboratory Data Labs 24H Laboratory Tests 2 11/29/18 16:30: Bedside Glucose (Misc Panel) 284H 11/29/18 20:51: Bedside Glucose (Misc Panel) 286H 11/30/18 06:01: Immature Granulocyte % (Auto) 0.5, White Blood Count 3.8L, Red Blood Count 3.83L, Hemoglobin 10.6L, Hematocrit 34.7L, Mean Corpuscular Volume 90.6, Mean Corpuscular Hemoglobin 27.7, Mean Corpuscular Hemoglobin Concent 30.5L, Red Cell Distribution Width 16.7H, Platelet Count 138L, Neutrophils (%) (Auto) 53.4, Lymphocytes (%) (Auto) 27.6, Monocytes (%) (Auto) 12.2H, Eosinophils (%) (Auto) 5.5H, Basophils (%) (Auto) 0.8, Neutrophils # (Auto) 2.1, Lymphocytes # (Auto) 1.1L, Monocytes # (Auto) 0.5, Eosinophils # (Auto) 0.2, Basophils # (Auto) 0.0, Nucleated Red Blood Cells % (auto) 0.0, Anion Gap 5L, Glomerular Filtration Rate 52.8, Blood Urea Nitrogen 13, Creatinine 1.08, Sodium Level 140, Potassium Level 4.3, Chloride Level 106, Carbon Dioxide Level 29, Calcium Level 8.9 11/30/18 11:34: Bedside Glucose (Misc Panel) 317H CBC/BMP Laboratory Tests 11/30/18 06:01 Red Blood Count 3.83 L, Mean Corpuscular Volume 90.6, Mean Corpuscular Hemoglobin 27.7, Mean Corpuscular Hemoglobin Concent 30.5 L, Red Cell Distribution Width 16.7 H, Neutrophils (%) (Auto) 53.4, Lymphocytes (%) (Auto) 27.6, Monocytes (%) (Auto) 12.2 H, Eosinophils (%) (Auto) 5.5 H, Basophils (%) (Auto) 0.8, Neutrophils # (Auto) 2.1, Lymphocytes # (Auto) 1.1 L, Monocytes # (Auto) 0.5, Eosinophils # (Auto) 0.2, Basophils # (Auto) 0.0, Calcium Level 8.9 FSBS Laboratory Tests Test 11/29/18 16:30 11/29/18 20:51 11/30/18 11:34 Range/Units Bedside Glucose (Misc Panel) 284 286 317 83-110 MG/DL Microbiology Microbiology 11/26/18 Blood Culture - Preliminary, Resulted No Growth after 72 hours. All specime... 11/26/18 Blood Culture - Preliminary, Resulted No Growth after 72 hours. All specime... 11/27/18 Urine Culture - Final, Complete Pseudomonas Aeruginosa 11/26/18 Urine Culture - Final, Complete Discharge Medications Scheduled Allopurinol (Zyloprim) 300 Mg Tab, 300 MG PO DAILY, (Reported) Ammonium Lactate (Ammonium Lactate) 12 % Cre, 1 DOSE TOP BID, (Reported) APPLY TO LEGS/FEET Apixaban (Eliquis) 5 Mg Tablet, 5 MG PO BID, (Reported) Atenolol (Atenolol) 25 Mg Tablet, 25 MG PO BID, (Reported) Atorvastatin Calcium (Atorvastatin Calcium) 10 Mg Tab, 10 MG PO DAILY, (Reported) Betamethasone Mala (Betamethasone Valerate) 45 Gm Oint, 1 DOSE TOP QHS, (Reported) USES ON LEGS FOR HOTSPOTS Calcitriol (Calcitriol) 0.25 Mcg Cap, 0.25 MCG PO DAILY, (Reported) Colchicine (Colchicine) 0.6 Mg Tab, 0.6 MG PO DAILY, (Reported) Cyclosporine (Restasis) 0.05 % Emu, 1 DROP OU BID, (Reported) Docusate Sodium (Docusate Sodium) 100 Mg Cap, 100 MG PO BID, (Reported) Duloxetine Hcl (Cymbalta) 60 Mg Capsule.dr, 60 MG PO DAILY, (Reported) Ergocalciferol (Vitamin D2) (Vitamin D2) 50,000 Unit Cap, 50,000 UNIT PO MTHLY, (Reported) TAKES ON OF THE MONTH Insulin Degludec (Tresiba Flextouch U-100) 100 Unit/Ml Inj, 96 UNIT SC DAILY, (Reported) TAKES BEFORE BREAKFAST Insulin Human Lispro (Humalog) 1 Units/0.01 Ml Inj, 1 DOSE SC AC, (Reported) PER SLIDING SCALE < 70: TREAT LBS WITH 15 G CARBS 70 -90: 46, 46, 46 91-130: 52, 52, 52, 8 FOR NIGHT SNACK 131-150: 56, 56, 56, 10 FOR NIGHT SNACK 151-200: 60, 60, 60, 12 FOR NIGHT SNACK, 4 UNITS NPO 201-250: 66, 66, 66, 14 FOR NIGHT SNACK, 6 UNITS NPO 251-300: 72, 72, 72, 16 FOR NIGHT SNACK, 8 UNITS NPO 301-350: 78, 78, 78, 18 FOR NIGHT SNACK, 10 UNITS NPO 351-400: 82, 82, 82, 20 FOR NIGHT SNACK, 14 UNITS NPO 401-450: 86, 86, 86, 22 FOR NIGHT SNACK, 18 UNITS NPO > 450: 90, 90, 90, 24 FOR NIGHT SNACK, 22 UNITS NPO Levetiracetam (Levetiracetam ER) 500 Mg Lindsay, 500 MG PO BID, (Reported) Meropenem (Meropenem) 500 Mg Vial, 500 MG IV Q8H Omeprazole (Omeprazole) 20 Mg Cap, 20 MG PO BID, (Reported) Pregabalin (Lyrica) 150 Mg Capsule, 150 MG PO BID, (Reported) Sucralfate (Sucralfate) 1 Gm Tab, 1 GM PO BID, (Reported) Torsemide (Torsemide) 20 Mg Tablet, 60 MG PO BID, (Reported) Triamcinolone Acet (Triamcinolone Acetonide 0.025% Crm) 1 Dose/80 Gm Cream, 1 DOSE TOP BID, (Reported) APPLIES ON THIGHS Scheduled PRN Acetaminophen (Tylenol Arthritis) 650 Mg Tab, 650 MG PO Q8H PRN for PAIN, (Reported) Albuterol Sulf (Albuterol Sulfate) 2.5 Mg/3 Ml Nebu, 2.5 MG INH Q4H PRN for SHORTNESS OF BREATH, (Reported) Halobetasol Propionate (Halobetasol Propionate) 0.05 % Cre, 1 DOSE TOP for RASH, (Reported) APPLIES UNDER FOLDS AND BREASTS Magnesium Hydroxide (Milk of Magnesia) 400 Mg/5 Ml Oral.susp, 30 ML PO DAILY PRN for CONSTIPATION, (Reported) Nystatin (Nystatin) 100,000 Unit/Gm Cre, 1 DOSE TOP BID PRN for RASH, (Reported) UNDER BREASTS AND GROIN AREA Nystatin (Nystatin Oint) 30 Gm Oint, 1 DOSE TOP TID PRN for RASH, (Reported) APPLIES AROUND VAGINAL AREA Ondansetron HCl (Ondansetron HCl) 4 Mg Tab, 4 MG PO QID PRN for NAUSEA OR VOMITING, (Reported) Allergies Coded Allergies: Cephalosporins (Verified Allergy, Intermediate, hives, 07/14/18) Penicillins (Verified Allergy, Intermediate, hives, 07/14/18) Sulfa (Sulfonamide Antibiotics) (Verified Allergy, Intermediate, hives, 07/14/18) chlorpromazine (Verified Allergy, Intermediate, hiives, 07/14/18) loratadine (Verified Allergy, Intermediate, hives, 07/14/18) pentazocine (Verified Allergy, Intermediate, hives, 07/14/18) TAPE (Verified Allergy, Unknown, band-aids, 07/14/18) methadone (Verified Allergy, Unknown, 09/25/18) HAS HAD DILAUDID AND DEMEROL IN THE PAST NUSRAT GUERRERO MD Nov 30, 2018 15:54
[2018-11-30] MEDS: ONDANSETRON 4 MG TAB (S0181) PO PRN (17:16)
[2018-11-30] MEDS: BETAMETHASONE VAL 0.1% OINT 15 GM TOP SCH (21:00)
[2018-11-30] MEDS: rOPINIRole 2MG TAB PO SCH (21:57)
[2018-11-30] MEDS: ATORVASTATIN 10 MG TAB PO SCH (21:57)
[2018-11-30 22:00] VITALS: BP 148/76
[2018-12-01] MEDS: MEROPENEM INJ 500 MG in APPROPRIATE DILUENT 1 EA IV SCH ×2 (04:07→12:10)
[2018-12-01] MEDS: NS 1,000 ML IV SCH (05:39)
[2018-12-01 06:00] VITALS: BP 143/58
[2018-12-01 06:05] LABS: BASO % 0.8 % (0.0-1.0); EOS # 0.2 10^3/uL (0.0-0.50); EOS % 4.7 % (0.0-3.0); HEMATOCRIT 32.6 % (36.0-47.0); HEMOGLOBIN 10.1 g/dl (12.0-15.5); LYMPH # 1.2 10^3/uL (1.5-4.5); MEAN CORPUSCULAR HEMOGLOBIN 27.9 pg (27.0-33.0); MEAN CORPUSCULAR VOLUME 90.1 fl (80.0-96.0); MONO # 0.5 10^3/uL (0.0-0.8); MONO % 12.6 % (0.0-5.0); NEUTROPHILS # 1.9 10^3/uL (1.8-7.7); NEUTROPHILS % 49.4 % (36.0-66.0); PLATELET COUNT, AUTOMATED 150 10^3/uL (150-450); RED BLOOD COUNT 3.62 10^6/uL (4.00-5.40); WHITE BLOOD COUNT 3.8 10^3/uL (4.0-10.0)
[2018-12-01 06:30] LABS: CALCIUM LEVEL 8.7 MG/DL (8.8-10.2); CREATININE FOR GFR 1.03 MG/DL (0.55-1.30); GLOMERULAR FILTRATION RATE 55.8 (>39); POTASSIUM SERUM 4.3 MEQ/L (3.5-5.1)
[2018-12-01] MEDS: OMEPRAZOLE 20 MG CAP PO SCH (08:24)
[2018-12-01] MEDS: levETIRAcetam **XR** 500 MG TABLET PO SCH (08:24)
[2018-12-01] MEDS: HumaLOG INSULIN (NovoLOG) PER UNIT SC SCH ×2 (08:24→12:09)
[2018-12-01] MEDS: LACTULOSE 20 GM/30 ML SYRUP UD PO SCH (08:24)
[2018-12-01] MEDS: MIRALAX *UNIT DOSE* 17GM PACKET PO SCH (08:24)
[2018-12-01] MEDS: PREGABALIN 75 MG CAP(LYRICA) PO SCH (08:25)
[2018-12-01] MEDS: SUCRALFATE 1 GM TAB PO SCH (08:25)
[2018-12-01] MEDS: ALLOPURINOL 300 MG TAB PO SCH (08:25)
[2018-12-01] MEDS: DOCUSATE SODIUM 100 MG CAP PO SCH (08:25)
[2018-12-01] MEDS: APIXABAN 5 MG TAB (ELIQUIS) PO SCH (08:25)
[2018-12-01] MEDS: DULoxetine 30 MG CAP (CYMBALTA) PO SCH (08:25)
[2018-12-01] MEDS: COLCHICINE 0.6 MG TAB PO SCH (08:25)
[2018-12-01 08:28] VITALS: BP 130/60
[2018-12-01] MEDS: ATENOLOL 25 MG TAB PO SCH (08:28)
[2018-12-01] MEDS: LACTIC ACID 12% LOTION 225 GM BTL TOP SCH (08:29)
[2018-12-01] MEDS: TRIAMCINOLONE ACETONIDE 0.025 % 80 GM CREAM TOP SCH (08:29)
[2018-12-01] MEDS: LEVEMIR (INSULIN DETEMIR) 1 UNITS/0.01ML SC SCH (08:29)
[2018-12-01] MEDS: PERCOCET 5MG/325MG TAB PO PRN ×2 (08:34→13:28)
[2018-12-01] MEDS: ONDANSETRON 4 MG TAB (S0181) PO PRN (13:27)
[2018-12-01 14:00] VITALS: BP 161/63
== END 2018-12-01 15:59 | disposition home health service (06) | DRG 699 ==
LOC: M ED 18:14 → M ED INP 22:15 → EEVIPCON 22:15 → M MSPAV 11-27 01:15
PROVIDERS: ADMIT Internal Medicine; ATTEND General Practice
DX: T83.511A Infection and inflammatory reaction due to indwelling urethral catheter, initial encounter (principal); N17.9 Acute kidney failure, unspecified; N18.4 Chronic kidney disease, stage 4 (severe); E66.2 Morbid (severe) obesity with alveolar hypoventilation; I50.32 Chronic diastolic (congestive) heart failure; J96.11 Chronic respiratory failure with hypoxia; E11.40 Type 2 diabetes mellitus with diabetic neuropathy, unspecified; N39.0 Urinary tract infection, site not specified; G25.81 Restless legs syndrome; G43.909 Migraine, unspecified, not intractable, without status migrainosus; M16.11 Unilateral primary osteoarthritis, right hip; N20.0 Calculus of kidney; M54.2 Cervicalgia; E55.9 Vitamin D deficiency, unspecified; K21.9 Gastro-esophageal reflux disease without esophagitis; G40.909 Epilepsy, unspecified, not intractable, without status epilepticus; E78.5 Hyperlipidemia, unspecified; G47.33 Obstructive sleep apnea (adult) (pediatric); M10.9 Gout, unspecified; Z68.36 Body mass index [BMI] 36.0-36.9, adult; Z86.718 Personal history of other venous thrombosis and embolism; K59.00 Constipation, unspecified; J44.9 Chronic obstructive pulmonary disease, unspecified; B96.29 Other Escherichia coli [E. coli] as the cause of diseases classified elsewhere; Z79.899 Other long term (current) drug therapy; Z88.0 Allergy status to penicillin; Z88.2 Allergy status to sulfonamides; Z88.8 Allergy status to other drugs, medicaments and biological substances; I48.91 Unspecified atrial fibrillation; B96.5 Pseudomonas (aeruginosa) (mallei) (pseudomallei) as the cause of diseases classified elsewhere; M79.18 Myalgia, other site; T83.021A Displacement of indwelling urethral catheter, initial encounter; Y84.6 Urinary catheterization as the cause of abnormal reaction of the patient, or of later complication, without mention of misadventure at the time of the procedure

== ENCOUNTER → 2018-12-08 | Outpatient (REF) | payer MEDICARE, MEDICAID ==
[~2018-12-08] MED LIST changes: -BISO5TAB5 PO; +BISO5TAB9 PO; +MERO500I IV
[2018-12-08 20:49] LABS: HEMATOCRIT 40.5 % (36.0-47.0); HEMOGLOBIN 12.2 g/dl (12.0-15.5); MEAN CORPUSCULAR HEMOGLOBIN 27.2 pg (27.0-33.0); MEAN CORPUSCULAR HGB CONC 30.1 g/dl (32.0-36.5); MEAN CORPUSCULAR VOLUME 90.4 fl (80.0-96.0); PLATELET COUNT, AUTOMATED 248 10^3/uL (150-450); RED BLOOD COUNT 4.48 10^6/uL (4.00-5.40); WHITE BLOOD COUNT 4.9 10^3/uL (4.0-10.0)
[2018-12-08 21:05] LABS: HEMOGLOBIN A1c 8.9 %
[2018-12-08 21:06] LABS: CALCIUM LEVEL 10.1 MG/DL (8.8-10.2); CREATININE FOR GFR 1.52 MG/DL (0.55-1.30); GLOMERULAR FILTRATION RATE 35.6 (>39); POTASSIUM SERUM 3.8 MEQ/L (3.5-5.1)
== END ==
LOC: M LABDRWAD 19:19 → M SHH 19:19
PROVIDERS: ATTEND Internal Medicine
DX: D50.9 Iron deficiency anemia, unspecified (principal); E11.65 Type 2 diabetes mellitus with hyperglycemia

== ENCOUNTER → 2018-12-18 | Outpatient (REF) | payer MEDICARE, MEDICAID ==
[2018-12-18 13:39] LABS: HEMATOCRIT 36.4 % (36.0-47.0); HEMOGLOBIN 10.9 g/dl (12.0-15.5); MEAN CORPUSCULAR HEMOGLOBIN 25.6 pg (27.0-33.0); MEAN CORPUSCULAR HGB CONC 29.9 g/dl (32.0-36.5); MEAN CORPUSCULAR VOLUME 85.6 fl (80.0-96.0); PLATELET COUNT, AUTOMATED 191 10^3/uL (150-450); RED BLOOD COUNT 4.25 10^6/uL (4.00-5.40); WHITE BLOOD COUNT 6.1 10^3/uL (4.0-10.0)
[2018-12-18 14:20] LABS: CALCIUM LEVEL 9.4 MG/DL (8.8-10.2); CREATININE FOR GFR 1.45 MG/DL (0.55-1.30); GLOMERULAR FILTRATION RATE 37.6 (>39); PERCENT SATURATION 7.1 % (13.2-45.0); POTASSIUM SERUM 3.9 MEQ/L (3.5-5.1)
== END ==
LOC: M LAB REF 12:15
PROVIDERS: ATTEND Internal Medicine
DX: D64.9 Anemia, unspecified (principal)

== ENCOUNTER 2018-12-25 11:05 | Outpatient (CLI) | payer MEDICARE, MEDICAID ==
[~2018-12-25] VITALS: Ht 170.2 cm; Wt 101.4 kg
[~2018-12-25 11:05] MED LIST changes: -ARNU1INH INH; -BISO5TAB14 PO; +BISO5TAB9 PO; -FLUO20CA20 PO; +FLUO20CA8 PO; -LEVA1TAB2 PO; -NORT10CA2 PO; -OMEP1CAP73 PO; +OMEP20CA4 PO; -ONDA-83 PO; +ONDA4TAB5 PO; -OSEL75CA PO; +OXYB10TA2 PO; -OXYB10TA23 PO; -PRED20TA PO; -PREP1SUP2 PR
[2018-12-25 11:32] VITALS: BP 130/96
[2018-12-25] MEDS ORDERED: SODIUM CHLORIDE 0.9% INJ 10 ML SYR IV PRN (11:45)
[2018-12-25] MEDS ORDERED: IRON SUCROSE 25 MG in NS 50 ML IV ONE (12:00)
[2018-12-25] MEDS ORDERED: IRON SUCROSE 475 MG in NS 250 ML IV ONE (12:00)
[2018-12-25 12:45] VITALS: BP 138/63
[2018-12-25 13:00] VITALS: BP 105/51
[2018-12-25 14:00] VITALS: BP 132/62
[2018-12-25 15:00] VITALS: BP 130/61
[2018-12-25 16:00] VITALS: BP 136/61
[2018-12-26] MEDS ORDERED: SODIUM CHLORIDE 0.9% INJ 10 ML SYR IV SCH (09:00)
== END 2018-12-25 16:15 | disposition home or self-care (01) ==
LOC: M INFU 11:05
PROVIDERS: ATTEND Internal Medicine
DX: D50.9 Iron deficiency anemia, unspecified (principal); Z88.1 Allergy status to other antibiotic agents; Z88.3 Allergy status to other anti-infective agents; Z88.0 Allergy status to penicillin; Z79.899 Other long term (current) drug therapy
CPT/HCPCS: 80048; 85027; 96365; 96366; J1756

== ENCOUNTER → 2018-12-25 | Outpatient (REF) | payer MEDICARE, MEDICAID ==
[~2018-12-25] MED LIST changes: +ARNU1INH INH; +BISO5TAB14 PO; -BISO5TAB9 PO; +FLUO20CA20 PO; -FLUO20CA8 PO; +LEVA1TAB2 PO; +NORT10CA2 PO; +OMEP1CAP73 PO; -OMEP20CA4 PO; +ONDA-83 PO; -ONDA4TAB5 PO; +OSEL75CA PO; -OXYB10TA2 PO; +OXYB10TA23 PO; +PRED20TA PO; +PREP1SUP2 PR
[2018-12-25 12:38] LABS: HEMATOCRIT 36.7 % (36.0-47.0); MEAN CORPUSCULAR HEMOGLOBIN 25.5 pg (27.0-33.0); PLATELET COUNT, AUTOMATED 155 10^3/uL (150-450); RED BLOOD COUNT 4.32 10^6/uL (4.00-5.40); WHITE BLOOD COUNT 4.9 10^3/uL (4.0-10.0)
[2018-12-25 13:01] LABS: CALCIUM LEVEL 9.3 MG/DL (8.8-10.2); CREATININE FOR GFR 1.84 MG/DL (0.55-1.30); GLOMERULAR FILTRATION RATE 28.5 (>39); POTASSIUM SERUM 3.6 MEQ/L (3.5-5.1)
== END ==
LOC: M LAB REF 11:21 → M LABDRWAD 11:21
PROVIDERS: ATTEND Internal Medicine
DX: D50.9 Iron deficiency anemia, unspecified (principal)

== ENCOUNTER → 2019-01-09 | Outpatient (CLI) | payer MEDICARE, MEDICAID ==
--- NOTE | 2019-01-09 13:52 | REP ---
Three-phase radionuclide bone scan of the hips: The patient has a right hip total arthroplasty and complains of right hip pain. Comparison is the plain film study of 11/28/2018. The vascular phase: There is bilaterally symmetric uptake in the hips. Soft tissue phase: There is bilaterally symmetric uptake in the hips except that there is photopenia in the region of the right femoral head arthroplasty. The skeletal phase: On the posterior RPO view there is slightly increased uptake in the intertrochanteric area of the right hip. There is photopenia in the region of the arthroplasty femoral head and shaft. This focal increased uptake is nonspecific and could be postsurgical. Impression: Essentially negative three-phase radionuclide bone scan of the hips. There is photopenia related to the right hip arthroplasty. There is slightly increased uptake in the right hip intertrochanteric area on one posterior view. This is nonspecific and could be postsurgical. The study is performed with 21.9 mCi of technetium 99m labeled MDP. Electronically Signed by Sami Richter MD 01/09/2019 01:43 P
== END ==
LOC: M RAD 09:16
PROVIDERS: ATTEND Physician Assistant
DX: M16.12 Unilateral primary osteoarthritis, left hip (principal); M47.896 Other spondylosis, lumbar region; S52.515D Nondisplaced fracture of left radial styloid process, subsequent encounter for closed fracture with routine healing; Z96.641 Presence of right artificial hip joint
CPT/HCPCS: 78315; A9503

== ENCOUNTER → 2019-01-10 | Outpatient (CLI) | payer MEDICARE, MEDICAID ==
--- NOTE | 2019-01-25 01:44 | ECWPNPC ---
PATIENT NAME: SHIVANI PAYNE I : 1945 GENDER: FEMALE VISIT DATE: 01/10/2019 DISCHARGE DATE: 01/10/19 1430 VISIT LOCKED DATE TIME: PHYSICIAN: CHERIE AMATO RESOURCE: CHERIE AMATO REASON FOR APPOINTMENT 1. MED MGMNT HISTORY OF PRESENT ILLNESS HISTORY OF PRESENT ILLNESS: HERE FOR F/U OF CHRONIC GENERALIZED BODY PAIN.WAS NOT ABLE TO TOLERATE NUCYNTA AND STATES SHE GOT A RASH.SHE HAS BEEN TRIALED ON MULTIPLE MEDICATIONS BOTH NARCOTIC AND NON NARCOTIC AND HAS HAD SIDE EFFECTS WITH ALL EXCEPT OXYCODONE.RATING PAIN VAS 8/10.HAS HX OF MULTIPLE RECENT HOSPITALIZATIONS MAINLY DUE TO UTI.BROKE BOTH WRISTS END OF NOVEMBER AFTER FALL INJURY AT HOME AND IS FOLLOWING WITH [facility]. PAIN THE PATIENT DESCRIBES THE PAIN... THE PATIENT DESCRIBES THE PAIN... THE PATIENT DESCRIBES THE PAIN... FALL RISK SCREENING: SCREENING :NO FALLS REPORTED IN THE LAST YEAR CURRENT MEDICATIONS TAKING ONDANSETRON 4 MG TABLET DISPERSIBLE 1 TABLET ON TONGUE ORALLY TWICE DAILY TAKING OMEPRAZOLE 20 MG CAPSULE DELAYED RELEASE 1 CAPSULE ORALLY BID TAKING SCOPOLAMINE BASE 1.5 MG PATCH 72 HOUR 1 PATCH TO SKIN NEEDED TRANSDERMAL TAKING SUCRALFATE 1 GM/10ML SUSPENSION 10 ML ORALLY TWICE A DAY TAKING ALLOPURINOL 300 MG TABLET 1 TABLET ORALLY ONCE A DAY TAKING COLCHICINE 0.6 MG TABLET 1 TABLET ORALLY ONCE A DAY TAKING LACTULOSE 20 GM/30ML SOLUTION 30 ML ORALLY BID TAKING LEVETIRACETAM 500 MG TABLET 1 TABLET ORALLY TWICE A DAY TAKING OXYGEN 2 L NASAL CANNULA PRN TAKING NYSTATIN 352924 UNIT/GM CREAM 1 APPLICATION TO AFFECTED AREA EXTERNALLY TWICE A DAY TAKING CRANBERRY 500 MG CAPSULE 1 CAP(S) ORALLY THREE TIMES A DAY TAKING AMMONIUM LACTATE 12 % CREAM 1 APPLICATION TO AFFECTED AREA EXTERNALLY TWICE A DAY TAKING VITAMIN D (ERGOCALCIFEROL) 38535 UNIT CAPSULE 1 CAPSULE ORALLY MONTHLY TAKING ATORVASTATIN CALCIUM 10 MG TABLET 1 TABLET ORALLY ONCE A DAY TAKING BETAMETHASONE DIPROPIONATE 0.05 % LOTION 1 APPLICATION TO AFFECTED AREA EXTERNALLY ONCE A DAY TAKING CALCITRIOL 0.5 MCG CAPSULE 1 CAPSULE ORALLY 5 DAYS A WEEK TAKING DOCUSATE SODIUM 100 MG CAPSULE 1 CAPSULE NEEDED ORALLY ONCE A DAY TAKING DULOXETINE HCL 60 MG CAPSULE DELAYED RELEASE PARTICLES 1 CAPSULE ORALLY BID TAKING MILK OF MAGNESIA 1200 MG/15ML SUSPENSION 5 ML NEEDED ORALLY FOUR TIMES A DAY TAKING LYRICA 150 MG CAPSULE 1 CAPSULE ORALLY BID TAKING ELIQUIS 5 MG TABLET 1 CAP ORALLY BID TAKING RESTASIS 0.05 % EMULSION 1 DROP INTO AFFECTED EYE OPHTHALMIC TWICE A DAY TAKING BARD URINARY DRAINAGE BAG - MISCELLANEOUS DIRECTED MONTHLY TAKING BARD [id number] LEG BAG - MISCELLANEOUS DIRECTED MONTHLY TAKING BARD LEG BAG STRAPS/FABRIC - MISCELLANEOUS DIRECTED MONTHLY TAKING BARD URETHRAL CATHETER TRAY - KIT 20FR SILICONE CATHETER SUPRAPUBIC MONTHLY TAKING PERCOCET 5-325 MG TABLET 1 TABLET NEEDED ORALLY Q8H PRN MDD3 #45 TAB SHOULD LAST 30 DAYS TAKING HUMALOG 100 UNIT/ML SOLUTION SLIDING SCALE SUBCUTANEOUS FOUR TIMES DAILY NEEDED TAKING TRESIBA 200 U/ML 100 UNITS SUBCUTANEOUSLY DAILY TAKING ROPINIROLE HCL 2 MG TABLET 1 TABLET 1 TO 3 HOURS BEFORE BEDTIME ORALLY BEFORE BEDTIME TAKING OPTIFOAM 4 PAD DIRECTED TOPICALLY DAILY TAKING SPIRONOLACTONE 25 MG TABLET 1 TABLET ORALLY BID TAKING TORSEMIDE 100 MG TABLET 1 TABLET ORALLY ONCE A DAY TAKING TYLENOL 8 HOUR ARTHRITIS PAIN 650 MG TABLET EXTENDED RELEASE 2 TABLETS NEEDED ORALLY EVERY 8 HRS TAKING ATENOLOL 25 MG 1 TAB ORAL BID MEDICATION LIST REVIEWED AND RECONCILED WITH THE PATIENT PAST MEDICAL HISTORY NEUROGENIC URINARY RETENTION RECURRENT UTI HYPERTENSION INCONTIENCE,GERD MIGRAINE HX OF HEPATITIS A SEIZURES CATARACTS DVT LEFT LEG TX XARELTO CAUSED GI BLEED/ ALLYSSA FILTER ILEUS [address] TURNER EGD AND COLONOSCOPY TYPE 2 DIABETES ASTHMA KIDNEY DISEASE ARTHRITIS CHF HAS MARCAINE/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 BACK THAT AT PRESENT TIME IS TURNED DOWN TO LOWEST SETTING JUST TO KEEP OPEN PNEUMONIA BASAL CELL CARCINOMA REMOVED FOR FACE LEFT EYE CYCSTS REMOVED EBLS BILATERAL WRIST FRACTUES 11/2018 ALLERGIES PENTAZOCINE-NALOXONE: HIVES - ALLERGY CHLORPROMAZINE: HIVES - ALLERGY LORATADINE: HIVES - ALLERGY PENICILLIN (FOR ALLERGIES USE ONLY): HIVES - ALLERGY CEPHALOSPORINS: HIVES - ALLERGY SULFAMETHOXAZOLE-TMP DS: HIVES - ALLERGY NUCYNTA: RASH - ALLERGY CLARITIN: HIVES - ALLERGY SURGICAL HISTORY HYSTERECTOMY AGE 22 L4 -5 DISKECTOMY DIAPHRAGM PARALYZED- RIGHT LOWER LUNG R-BRADY 2013 HITAL HERNIA REPAIR LEFT ANKLE FX- FUSION INFUSAPORT REMOVED INFUSAPORT PLACED INFUSAPORT AND IMPLANTED PAIN PUMP RIGHT HIP REPLACEMENT BASAL CELL CARCINOMA REMOVED FROM FACE LEFT EYE CYSTS REMOVED OPEN CYSTOTOMY WITH 20FR SUPRAPUBIC CATHETER PLACEMENT 7CC BALLOON = URINARY RETENTION WT FREQ UTIS = DR. MERCER 07/28/2018 FAMILY HISTORY FATHER: 80 YRS, DUE TO HEART ATTACK, STROKES, ANEURYSM, DIAGNOSED WITH UNSPECIFIED HEART DISEASE, OTHER SPECIFIED CONDITIONS INFLUENCING HEALTH STATUS MOTHER: 59 YRS, DUE TO METASIS CANCER, LUNG AND LIVER CANCER, OTHER MALIGNANT NEOPLASM OF UNSPECIFIED SITE SON(S): ALIVE, SON: = SUICIDE AT AGE 34YRS OLD. 2 BROTHER(S) , 2 SISTER(S) - HEALTHY. 2 SON(S) - HEALTHY. SOCIAL HISTORY GENERAL: TOBACCO USE ARE YOU A:NONSMOKER HIV / HEP-C SCREENING HIV TEST OFFERED TO PATIENT:NO HEP-C TEST OFFERED TO PATIENT:NO OTHERS AT HOME: EX . EDUCATION LEVEL OF EDUCATION:HIGH SCHOOL DIET: CARBOHYDRATE CONTROLLED, NO CONCENTRATED SWEETS.. LANGUAGE LANGUAGES SPOKEN:NAMIBIAN DOMESTIC VIOLENCE DO YOU FEEL SAFE IN YOUR ENVIRONMENT?YES RECREATIONAL DRUG USE DRUG USE?NO EXERCISE: NONE. LEARNING BARRIERS / SPECIAL NEEDS CHANGE FROM LAST VISIT?NO BARRIERS TO LEARNING?NO HEARING IMPAIRED?NO VISION IMPAIRED?NO COGNITIVELY IMPAIRED?NO READINESS TO LEARN?YES LEARNING PREFERENCES?NO EMOTIONAL BARRIERS?NO SPECIAL DEVICES?YES :WHEELCHAIR, BRACE CARBON SETTER NEEDED?NO LUNG CANCER SCREENING SMOKING STATUS:NON SMOKER PAIN CLINIC PFS, CLERGY, PUBLIC HEALTH REFERRALS PFS REFERRAL NEEDED?NO CLERGY REFERRAL NEEDED?NO PUBLIC HEALTH REFERRAL NEEDED?NO WAS THE PROVIDER NOTIFIED OF ANY PERTINENT INFO? N/A HAS THE PATIENT BEEN EDUCATED REGARDING HIS/HER PLAN OF CARE?YES HAS THE PATIENT BEEN EDUCATED REGARDING PAIN, THE RISK FOR PAIN, THE IMPORTANCE OF EFFECTIVE PAIN MANAGEMENT, AND THE PAIN ASSESSMENT PROCESS?YES LATEX QUESTIONNAIRE LATEX ALLERGY : HAVE YOU EVER DEVELOPED ANY TYPE OF REACTION AFTER HANDLING LATEX PRODUCTS SUCH RUBBER GLOVES, CONDOMS, DIAPHRAGMS, BALLOONS, SOCKS, OR UNDERWEAR?NO LATEX ALLERGY : HAVE YOU EVER DEVELOPED ANY TYPE OF REACTION DURING OR AFTER DENTAL APPOINTMENT, VAGINAL/RECTAL EXAMINATION, SURGICAL PROCEDURE, OR ANY OTHER EXPOSURE?NO DATE ASKED : 12/28/2018 LATEX RISK : HAVE YOU EVER HAD ANY DIFFICULTY BREATHING OR HIVES AFTER EATING OR HANDLING ANY FRUITS, OR VEGETABLES; SUCH KIWI, BANANAS, STONE FRUITS, OR CHESTNUTSYES - PLEASE INDICATE : KIWI LATEX RISK : DO YOU HAVE A PREVIOUS PERSONAL HISTORY OF MORE THAN NINE SURGERIES, SPINA BIFIDA, OR REPEATED CATHERIZATIONS? YES - PLEASE INDICATE : > 9 SURGERIES, REPEATED CATHETERIZATIONS LATEX RISK : ARE YOU FREQUENTLY EXPOSED TO LATEX PRODUCTS IN YOUR OCCUPATION?NO CAFFEINE CAFFEINE USE?NO COFFEE ADVANCE DIRECTIVE ADVANCE DIRECTIVE DISCUSSED WITH PATIENT:YES 07/12/18 STATES SHE HAS HCP:ELIZABETH PAYNE [phone] SIKHISM [id number] DRUZE MARITAL STATUS: .. ALCOHOL SCREENING DID YOU HAVE A DRINK CONTAINING ALCOHOL IN THE PAST YEAR?NO POINTS0 INTERPRETATIONNEGATIVE OCCUPATION: RETIRED. SEXUAL HX HAD SEX IN THE LAST 12 MONTHS (VAGINAL, ORAL, OR ANAL)?NO HAVE YOU EVER HAD AN STD?NO HAS MOLST FORMREVIEWED WITH PT 05/08/18 1324 BVREVIEWED WITH PT 10/16/18 1400 BVREVIEWE WITH PATIENT 01/10/19 1344 NLJ. HOSPITALIZATION/MAJOR DIAGNOSTIC PROCEDURE RELATED FOR SURGERY ADMITTED DUE TO TROUBLE BREATHING 2012 ADMITTED DUE TO CHF ADMITTED OTHER TIMES WELL DUE TO MIGRAINE, SEIZURES, AND ETC ADMITTED DUE TO COPD, CHF, BLOOD INFECTION 04/2015 ADMITTED FOR PORT PLACEMENT 06/2015 FALL 08/2015 PNEOMINA, FLU, CHF, HYPERGYLCEMIA, DEHYDRATION 05/2016 HAD TO HAVE BLOOD TRANSFUSION 04/2017 BLOOD TRANSFUSION 06/2017 SEVERE SOB, LIGHT-HEADEDNESS, CHF, DECREASED FE 08/2017 SEPSIS 04/2018 UTI 05/18/18 BLOOD TRANSFUSION/ IRON 09/2018 BLOOD TRANSFUSION/IRON 10/2018 UTI 11/2018 REVIEW OF SYSTEMS REVIEWED BY: PROVIDER: CHERIE SPENCER . CONSTITUTIONAL: ANY CHANGE IN YOUR MEDICAL CONDITION? NO . CHILLS NO . FEVER NO . INFECTION: DO YOU HAVE NEW INFECTIONS? YES- UTI IN 11/2018 . DO YOU HAVE HISTORY OF MRSA? NO . MUSCULOSKELETAL: ANY NEW PATTERNS OF PAIN OR NUMBNESS? YES- STATES PAIN IS UNCHANGED, STATES THAT MEDS HELP FOR HER PAIN . GASTROENTEROLOGY: ANY NEW CHANGE IN BOWEL CONTROL? NO . GENITOURINARY: ANY NEW CHANGE IN BLADDER CONTROL? YES- HAS INDWELLING HUERTA CATHETER . IS THERE A CHANCE YOU COULD BE ? NO . HEMATOLOGY/LYMPH: DO YOU TAKE ANY BLOOD THINNERS? (FOR EXAMPLE- COUMADIN, PLAVIX, AGGRENOX, PLATEL, PRADAXA, OR XARELTO) YES- ELIQUIS . WHEN WAS YOUR LAST DOSE? DATE:01/10/19TIME: 0700 . NEUROLOGY: HAVE YOU FALLEN IN THE PAST 12 MONTHS? NO . ANY NEW EXTREMITY NUMBNESS OR WEAKNESS? NO . CARDIOLOGY: DO YOU HAVE A PACEMAKER OR DEFIBRILLATOR? NO . RESPIRATORY: HAVE YOU BEEN SICK IN THE PAST WEEK? YES- HAS HAD BRONCHITIS AND HAS BEEN ON DOXYCYCLINE . FEVER NO . FLU LIKE SYMPTOMS? NO . COUGH YES . INTEGUMENTARY: DO YOU HAVE ANY RASHES OR OPEN SORES? NO . ALLERGIC/IMMUNO: ARE YOU ALLERGIC TO IV DYE? NO . ANY NEW ALLERGIES? NO . PSYCHIATRIC: DO YOU HAVE THOUGHTS OF HURTING YOURSELF OR SOMEONE ELSE? NO . ARE YOU ABUSED, NEGLECTED, OR IN AN UNSAFE ENVIRONMENT? NO . ENDOCRINOLOGY: ARE YOU DIABETIC? YES . OTHER: DO YOU NEED ANY PRESCRIPTIONS? YES . IF YES, PLEASE LIST: ____OXYCODONE/ACETAMINOPHEN, WOULD LIKE PHARMACY TO FILL THE BRAND NAME AND NOT GENERIC . ANY NEW PROBLEMS WITH YOUR MEDICATIONS? NO . WHEN DID YOU LAST EAT? ____ . WHEN DID YOU LAST DRINK? ____ . WHAT DID YOU LAST DRINK? ____ . NAME OF PERSON DRIVING YOU HOME? ____ . DO YOU HAVE ANY OTHER QUESTIONS OR CONCERNS YES- HAS FLU SHOT 01/09/19 . VITAL SIGNS WT 223 LBS, HT 67 IN, BMI 34.92 INDEX, BP 120/57 MM HG, HR 72 /MIN, RR 18 /MIN, TEMP 97.0 F, OXYGEN SAT % 100%, SAFE IN ENV? (Y/N) YES, NA INITIALS AW 1340, REVIEWED BY: CHIRAG. EXAMINATION GENERAL EXAMINATION: GENERALAWAKE,ALERT ,PLEAASANT . PSYCHAFFECT NORMAL . LUNGS:LUNG B[place]LETT ARE CLEAR TO AUSCULTATION BILATERALLY. GOOD MOVEMENT OF AIR . HEART:S1, S2 IN A REGULAR RATE AND RHYTHM. NO SIGNIFICANT MURMURS, RUBS OR GALLOPS NOTED . ASSESSMENTS CERVICALGIA - M54.2 TREATMENT CERVICALGIA CONTINUE PERCOCET TABLET, 5-325 MG, 1 TABLET NEEDED, ORALLY, Q8H PRN MDD3 #45 TAB SHOULD LAST 30 DAYS NOTES: ISTOP REGISTRY REVIEWED AND DEMONSTRATES COMPLLIANCE. BRINGS IN MEDICATIONS WHICH IS APPROPRIATE FOR WHAT WAS DISPENSED. RECENT URINE TOXICOLOGY REVIEWED. NO UNAUTHORIZED MEDICATIONS. NO ILLICIT SUBSTANCES AND PRESCRIBED MEDICATIONS WERE PRESENT. . PROCEDURE CODES FA211 ESTABILISHED PATIENT [facility] CHARGE DISPOSITION & COMMUNICATION FOLLOW UP 3 MONTHS (REASON: MED MGMNT) ELECTRONICALLY SIGNED BY TJ KELLER ON 01/24/2019 AT 02:34 PM EDT DISCLAIMER : THIS IS A VISIT SUMMARY EXTRACTED FROM THE ECLINICALWORKS CHART. IT IS NOT A COPY OF THE [employer]ICAL[employer]KS PROGRESS NOTE. EPHRAIMD
== END ==
LOC: M PAIN 13:30
PROVIDERS: ATTEND Nurse Practitioner Family
DX: M54.2 Cervicalgia (principal); G89.29 Other chronic pain; I10 Essential (primary) hypertension; K21.9 Gastro-esophageal reflux disease without esophagitis; G43.909 Migraine, unspecified, not intractable, without status migrainosus; Z86.19 Personal history of other infectious and parasitic diseases; G40.909 Epilepsy, unspecified, not intractable, without status epilepticus; Z86.718 Personal history of other venous thrombosis and embolism; E11.9 Type 2 diabetes mellitus without complications; J45.909 Unspecified asthma, uncomplicated; Z96.641 Presence of right artificial hip joint; Z88.0 Allergy status to penicillin; Z88.1 Allergy status to other antibiotic agents; Z88.2 Allergy status to sulfonamides; Z88.8 Allergy status to other drugs, medicaments and biological substances; Z79.01 Long term (current) use of anticoagulants; Z79.4 Long term (current) use of insulin; Z79.899 Other long term (current) drug therapy

== ENCOUNTER → 2019-01-19 | Outpatient (CLI) | payer MEDICARE, MEDICAID ==
--- NOTE | 2019-01-19 13:57 | REP ---
Two-view chest: 01/20/2019. Indication: Dyspnea. Comparison: 07/18/2018. Findings: Compared to the previous study, no significant changes are present. There is blunting of the left greater than right costophrenic angles. Right Port-A-Cath is unchanged in position. Cardiomegaly is again noted. Postoperative sequelae and calcified lymph nodes are redemonstrated. The lungs are clear. There is no evidence of pneumothorax. Impression: No acute cardiopulmonary process. Stable evaluation compared to earlier this year. Electronically Signed by Ryland Faye DO 01/19/2019 01:06 P
== END ==
LOC: M RAD 11:50
PROVIDERS: ATTEND Registered Nurse
DX: I51.7 Cardiomegaly (principal); R06.02 Shortness of breath

== ENCOUNTER → 2019-01-22 | Outpatient (REF) | payer MEDICARE, MEDICAID ==
[2019-01-22 19:23] LABS: HEMATOCRIT 36.9 % (36.0-47.0); HEMOGLOBIN 10.8 g/dl (12.0-15.5); MEAN CORPUSCULAR HGB CONC 29.3 g/dl (32.0-36.5); MEAN CORPUSCULAR VOLUME 92.3 fl (80.0-96.0); PLATELET COUNT, AUTOMATED 167 10^3/uL (150-450); WHITE BLOOD COUNT 7.8 10^3/uL (4.0-10.0)
[2019-01-22 19:34] LABS: PERCENT SATURATION 8.1 % (13.2-45.0)
== END ==
LOC: M LAB REF 18:22
PROVIDERS: ATTEND Internal Medicine
DX: D50.9 Iron deficiency anemia, unspecified (principal)

== ENCOUNTER → 2019-01-26 | Outpatient (CLI) | payer MEDICARE, MEDICAID ==
--- NOTE | 2019-01-26 16:00 | REP ---
MRI RIGHT FIRST DIGIT: TECHNIQUE: Multiple sequences obtained in the axial, coronal, and sagittal planes. This study is extremely limited due to patient motion. The osseous structures of the right first digit demonstrate normal bone marrow signal with no evidence of occult fracture or bone bruise. There is no definite tear of the collateral ligaments at the metacarpal phalangeal and interphalangeal joints. Flexor and extensor tendons appear intact without evidence of significant tenosynovitis. There appears to be subcutaneous edema of the dorsal soft tissues adjacent to the first metacarpal. IMPRESSION: Limited exam. No occult fracture. No definite collateral ligament tear. Electronically Signed by Sami Mesa MD 01/27/2019 11:19 A
== END ==
LOC: M PLARAD 09:18
PROVIDERS: ATTEND Physician Assistant
DX: S62.234D Other nondisplaced fracture of base of first metacarpal bone, right hand, subsequent encounter for fracture with routine healing (principal); X58.XXXD Exposure to other specified factors, subsequent encounter; Y92.89 Other specified places as the place of occurrence of the external cause

== ENCOUNTER 2019-01-31 09:10 | Outpatient (CLI) | payer MEDICARE, MEDICAID ==
[~2019-01-31] VITALS: Ht 170.2 cm; Wt 101.4 kg
[2019-01-31] VITALS (7 sets, daily range): BP systolic 111–140; BP diastolic 62–76
[2019-01-31] MEDS ORDERED: IRON SUCROSE 25 MG in NS 50 ML IV ONE (10:00)
[2019-01-31] MEDS ORDERED: IRON SUCROSE 475 MG in NS 250 ML IV ONE (11:00)
[2019-01-31] MEDS ORDERED: SODIUM CHLORIDE 0.9% INJ 10 ML SYR IV PRN (11:45)
[2019-02-01] MEDS ORDERED: SODIUM CHLORIDE 0.9% INJ 10 ML SYR IV SCH (09:00)
== END 2019-01-31 15:00 | disposition home or self-care (01) ==
LOC: M INFU 09:10
PROVIDERS: ATTEND Internal Medicine
DX: D50.9 Iron deficiency anemia, unspecified (principal); Z79.899 Other long term (current) drug therapy
CPT/HCPCS: 96365; 96366; 96375; J1756

== ENCOUNTER → 2019-02-05 | Outpatient (REF) | payer MEDICARE, MEDICAID ==
[2019-02-05 14:25] LABS: APPEARANCE, URINE CLEAR (CLEAR); BACTERIA, URINE AUTO NEGATIVE (NEGATIVE); BILIRUBIN, URINE AUTO NEGATIVE (NEGATIVE); BLOOD, URINE BLOOD 1+ (NEGATIVE); COLOR, URINE STRAW (YELLOW); GLUCOSE, URINE (UA) AUTO NEGATIVE (NEGATIVE); KETONE, URINE AUTO NEGATIVE (NEGATIVE); LEUKOCYTE ESTERASE, URINE AUTO 2+ (NEGATIVE); NITRITE, URINE AUTO NEGATIVE (NEGATIVE); PROTEIN, URINE AUTO NEGATIVE (NEGATIVE); RBC, URINE AUTO 0 /HPF (0-3); SPECIFIC GRAVITY URINE AUTO 1.004 (1.002-1.035); SQUAMOUS EPITHELIAL CELL UR AU 0 /HPF (0-6); UROBILINOGEN, URINE AUTO 0.2 mg/dL (0.0-2.0); WBC, URINE AUTO 13 /HPF (0-3)
[2019-02-05 14:34] LABS: BASO # 0.1 10^3/uL (0.0-0.2); BASO % 0.6 % (0.0-1.0); EOS % 0.2 % (0.0-3.0); HEMATOCRIT 36.9 % (36.0-47.0); HEMOGLOBIN 10.6 g/dl (12.0-15.5); LYMPH # 1.2 10^3/uL (1.5-5.0); LYMPH % 11.9 % (24.0-44.0); MEAN CORPUSCULAR HEMOGLOBIN 26.3 pg (27.0-33.0); MEAN CORPUSCULAR HGB CONC 28.7 g/dl (32.0-36.5); MEAN CORPUSCULAR VOLUME 91.6 fl (80.0-96.0); MONO # 0.4 10^3/uL (0.0-0.8); MONO % 3.5 % (0.0-5.0); NEUTROPHILS # 8.3 10^3/uL (1.5-8.5); PLATELET COUNT, AUTOMATED 262 10^3/uL (150-450); RED BLOOD COUNT 4.03 10^6/uL (4.00-5.40); WHITE BLOOD COUNT 10.1 10^3/uL (4.0-10.0)
[2019-02-05 14:57] LABS: ALBUMIN 3.1 GM/DL (3.2-5.2); CALCIUM LEVEL 8.6 MG/DL (8.8-10.2); CREATININE FOR GFR 1.54 MG/DL (0.55-1.30); GLOMERULAR FILTRATION RATE 35.1 (>39); PERCENT SATURATION 16.7 % (13.2-45.0); PHOSPHORUS LEVEL 2.5 MG/DL (2.5-4.9); POTASSIUM SERUM 3.5 MEQ/L (3.5-5.1)
[2019-02-05 15:16] LABS: TOTAL 25(OH) VITAMIN D 45.8 NG/ML (30.0-100.0)
== END ==
LOC: M LAB REF 13:33
PROVIDERS: ATTEND Nurse Practitioner Family
DX: N18.3 Chronic kidney disease, stage 3 (moderate) (principal); N25.81 Secondary hyperparathyroidism of renal origin; E55.9 Vitamin D deficiency, unspecified; D63.1 Anemia in chronic kidney disease

== ENCOUNTER → 2019-02-12 | Outpatient (REF) | payer MEDICARE, MEDICAID | LOC: M LAB REF 15:48 | PROVIDERS: ATTEND Physician Assistant | DX: S62.234D Other nondisplaced fracture of base of first metacarpal bone, right hand, subsequent encounter for fracture with routine healing (principal); X58.XXXA Exposure to other specified factors, initial encounter ==

== ENCOUNTER → 2019-02-21 | Outpatient (REF) | payer MEDICARE, MEDICAID | LOC: M LAB REF 13:23 | PROVIDERS: ATTEND Internal Medicine Pulmonary Disease | DX: J45.30 Mild persistent asthma, uncomplicated (principal) ==

== ENCOUNTER → 2019-03-12 | Outpatient (REF) | payer MEDICARE, MEDICAID ==
[~2019-03-12] MED LIST changes: +FLUO20CA20 PO; -FLUO20CA8 PO; +OMEP-172 PO; -OMEP20CA4 PO
[2019-03-12 17:58] LABS: HEMATOCRIT 38.6 % (36.0-47.0); HEMOGLOBIN 11.1 g/dl (12.0-15.5); MEAN CORPUSCULAR HEMOGLOBIN 25.1 pg (27.0-33.0); MEAN CORPUSCULAR HGB CONC 28.8 g/dl (32.0-36.5); MEAN CORPUSCULAR VOLUME 87.1 fl (80.0-96.0); PLATELET COUNT, AUTOMATED 167 10^3/uL (150-450); RED BLOOD COUNT 4.43 10^6/uL (4.00-5.40); WHITE BLOOD COUNT 7.9 10^3/uL (4.0-10.0)
[2019-03-12 18:09] LABS: HEMOGLOBIN A1c 7.5 %
[2019-03-12 18:22] LABS: ALBUMIN 3.7 GM/DL (3.2-5.2); BILIRUBIN,TOTAL 0.3 MG/DL (0.2-1.0); CALCIUM LEVEL 9.3 MG/DL (8.8-10.2); CREATININE FOR GFR 1.54 MG/DL (0.55-1.30); GLOMERULAR FILTRATION RATE 35.1 (>39); POTASSIUM SERUM 3.6 MEQ/L (3.5-5.1); TOTAL PROTEIN 6.2 GM/DL (6.4-8.2)
== END ==
LOC: M LAB REF 16:18
PROVIDERS: ATTEND Internal Medicine
DX: D50.9 Iron deficiency anemia, unspecified (principal); E11.65 Type 2 diabetes mellitus with hyperglycemia

== ENCOUNTER → 2019-04-03 | Outpatient (REF) | payer MEDICARE, MEDICAID ==
[~2019-04-03] MED LIST changes: +ARNU1INH INH; +LEVA1TAB2 PO; +NORT10CA2 PO; +OSEL75CA PO; +PRED20TA PO; +PREP1SUP2 PR
[2019-04-03 13:47] LABS: HEMATOCRIT 36.5 % (36.0-47.0); HEMOGLOBIN 10.1 g/dl (12.0-15.5); MEAN CORPUSCULAR HEMOGLOBIN 24.2 pg (27.0-33.0); MEAN CORPUSCULAR HGB CONC 27.7 g/dl (32.0-36.5); MEAN CORPUSCULAR VOLUME 87.5 fl (80.0-96.0); PLATELET COUNT, AUTOMATED 210 10^3/uL (150-450); RED BLOOD COUNT 4.17 10^6/uL (4.00-5.40); WHITE BLOOD COUNT 7.4 10^3/uL (4.0-10.0)
[2019-04-03 14:22] LABS: PERCENT SATURATION 4.7 % (13.2-45.0)
== END ==
LOC: M LAB REF 13:34
PROVIDERS: ATTEND Internal Medicine
DX: D50.9 Iron deficiency anemia, unspecified (principal)

== ENCOUNTER 2019-04-06 14:14 | Inpatient (IN) | payer MEDICARE, MEDICAID ==
[~2019-04-06] VITALS: Ht 170.2 cm; Wt 103.1 kg
[~2019-04-06 14:14] MED LIST changes: -ARNU1INH INH; -LEVA1TAB2 PO; -NORT10CA2 PO; -OSEL75CA PO; -PRED20TA PO; -PREP1SUP2 PR
[2019-04-06] MEDS ORDERED: methylPREDNISolone INJ 125 MG/2 ML VIAL (J2930) IV ONE (15:15)
--- NOTE | 2019-04-06 15:42 | REP ---
Single view chest: 04/06/2019. Indication: Dyspnea. Cough. Comparison: 01/19/2019. Findings: Right-sided Port-A-Cath is redemonstrated unchanged in position. More pronounced right pleural effusion is present. Small left pleural effusion is present. Bibasilar atelectasis is noted with small air space consolidation not excluded. Poor inspiratory result is noted. There is no pneumothorax. The cardiac silhouette is stable. Impression: More pronounced right pleural effusion. Small left pleural effusion persists. Bibasilar atelectasis with underlying air space consolidation not excluded. Otherwise stable exam. Electronically Signed by Ryland Faye DO 04/06/2019 03:33 P
--- NOTE | 2019-04-06 15:43 | ECGEPIP ---
[facility] - ED Test Date: 2019-04-06 Pat Name: SHIVANI PAYNE Department: Room: - Gender: Female Reliner: DONAVAN : 1945 Requested By: Wyatt Bennett Order Number: [id number] Reading MD: Kurtis Lazo Measurements Intervals [place] Rate: 70 P: 80 MD: 242 QRS: 15 QRSD: 98 T: 44 QT: 391 QTc: 424 Interpretive Statements SINUS RHYTHM WITH FIRST DEGREE AV BLOCK MD lengthen from tracing done 05-27-18 Electronically Signed on 04-06-2019 15:43:42 EST by Kurtis Lazo
[2019-04-06 15:56] LABS: ABG BASE EXCESS 6.9 (-2.0-2.0); ABG HCO3 31.9 MEQ/L (22.0-26.0); ABG O2 SATURATION 97.1 % (95.0-99.0); ABG PARTIAL PRESSURE CO2 47.6 mmHg (35.0-45.0); ABG PARTIAL PRESSURE O2 102.6 mmHg (75.0-100.0); ABG STANDARD HCO3 30.8 MEQ/L (22.0-26.0); ABG TOTAL CO2 33.4 MEQ/L (23.0-31.0); ABG pH (ARTERIAL) 7.444 UNITS (7.350-7.450)
[2019-04-06] MEDS: IPRATROPIUM 0.5MG/ALBUTEROL 2.5MG INH SOL UD 3ML (DUONEB)(J7620) NEB PRN ×2 (15:59→20:35)
[2019-04-06 17:01] LABS: BASO % 0.3 % (0.0-1.0); HEMATOCRIT 34.6 % (36.0-47.0); HEMOGLOBIN 9.7 g/dl (12.0-15.5); LYMPH # 1.8 10^3/uL (1.5-5.0); LYMPH % 19.6 % (24.0-44.0); MEAN CORPUSCULAR HEMOGLOBIN 23.8 pg (27.0-33.0); MEAN CORPUSCULAR VOLUME 84.8 fl (80.0-96.0); MONO # 0.7 10^3/uL (0.0-0.8); MONO % 7.7 % (0.0-5.0); NEUTROPHILS # 6.1 10^3/uL (1.5-8.5); NEUTROPHILS % 67.7 % (36.0-66.0); PLATELET COUNT, AUTOMATED 216 10^3/uL (150-450); RED BLOOD COUNT 4.08 10^6/uL (4.00-5.40)
[2019-04-06] MEDS: SODIUM CHLORIDE 0.9% INJ 10 ML SYR IV PRN (17:06)
[2019-04-06 17:13] LABS: CREATININE FOR GFR 1.71 MG/DL (0.55-1.30); GLOMERULAR FILTRATION RATE 31.1 (>39); POTASSIUM SERUM 4.6 MEQ/L (3.5-5.1)
[2019-04-06] MEDS ORDERED: FUROSEMIDE 40 MG/4 ML VIAL (J1940) IV ONE (17:15)
--- NOTE | 2019-04-06 17:15 | REP ---
Clinical: Pleural effusion. Technique: Axial noncontrast images from the thoracic inlet to the upper abdomen with coronal and sagittal re-formations. Findings: Prominent interstitial markings and prominent pulmonary vasculature along with minimal bibasilar atelectasis (right greater than left) suggests early pulmonary vascular congestion/interstitial edema. Differential diagnosis includes bronchitis. No significant effusion. No pneumothorax. Mediastinum demonstrates relatively normal thoracic aorta, pulmonary vasculature and heart/pericardium without cardiomegaly or pericardial effusion. Calcified mediastinal lymph nodes, right hilar lymph nodes and granuloma in the right lower lobe consistent with prior granulomatous disease. Musculoskeletal structures demonstrate age-related changes without focal abnormality. Impression: 1. Differential diagnosis includes pulmonary vascular congestion/interstitial edema versus bronchitis. 2. No significant effusion. 3. Evidence of prior granulomatous disease. Electronically Signed by Ramos Chaparro MD 04/06/2019 05:06 P
[2019-04-06] MEDS ORDERED: NORT10CA2 PO (18:48)
[2019-04-06] MEDS ORDERED: LACT10SO29 PO (18:48)
[2019-04-06] MEDS ORDERED: PRED20TA PO (18:48)
[2019-04-06] MEDS ORDERED: ARNU1INH INH (18:48)
[2019-04-06] MEDS ORDERED: MIRA3350 PO (18:48)
[2019-04-06] MEDS ORDERED: ROPI2TAB PO (18:48)
[2019-04-06] MEDS ORDERED: PREP1SUP2 PR (18:48)
[2019-04-06] MEDS ORDERED: OXYC1TAB23 PO (18:48)
[2019-04-06] MEDS ORDERED: OSEL75CA PO (18:48)
[2019-04-06] MEDS ORDERED: TORS100T PO (18:48)
[2019-04-06] MEDS ORDERED: SPIR-10 PO (18:48)
[2019-04-06] MEDS ORDERED: LEVA1TAB2 PO (18:48)
[2019-04-06] MEDS ORDERED: VITA50005 PO (18:48)
[2019-04-06] MEDS ORDERED: NYSTATIN CREAM 15 GM TOP PRN (19:00)
[2019-04-06] MEDS ORDERED: GLUCOSE 4 GM CHEW TABLET PO PRN (19:00)
[2019-04-06] MEDS ORDERED: DEXTROSE 50% 50 ML SYRINGE IV PRN (19:00)
[2019-04-06] MEDS ORDERED: GLUCAGON FOR INJ 1 MG VIAL (J1610) SC PRN (19:00)
[2019-04-06] MEDS ORDERED: ONDANSETRON 4 MG TAB (S0181) PO PRN (19:00)
[2019-04-06] MEDS ORDERED: MOM 30ML SUSPENSION UDC PO PRN (19:00)
--- NOTE | 2019-04-06 19:16 | HPEPDOC ---
[facility] Medical History & Physical Date of Admission Apr 06, 2019 Date of Service: Apr 06, 2019 Attending Physician: GONZALES EMERY MD History and Physical CHIEF COMPLAINT: Short of breath HISTORY OF PRESENT ILLNESS: 73-year-old female with an extensive past medical history including CHF, obstructive sleep apnea on CPAP, diabetes mellitus, hypertension, DVT, gout, seizure disorder, urinary retention status post suprapubic catheter placement, presents with worsening shortness of breath. She reports ongoing shortness of breath and cough for the past 1 month, has been treated with 3 separate courses of antibiotics and steroids, each lasting 10 days. She reports progressive worsening of symptoms despite this treatment, was advised by health services administrator come to the emergency department due to lack of improvement. She reports progressive dyspnea on exertion, cough productive of sputum, no other associated symptoms. She denies any fever, nausea, vomiting, chest pain, abdominal pain, diarrhea, constipation, or lower extremity swelling. 10 point review of system is negative except for above PAST MEDICAL HISTORY: 1. Obstructive sleep apnea. 2. Hypertension. 3. CHF with preserved ejection fraction. 4. Diabetes mellitus. 5. DVT. 6. Gout. 7. Seizure disorder. 8. Urinary retention PAST SURGICAL HISTORY: 1. Hip replacement. SOCIAL HISTORY: Never smoker. Denies alcohol. Denies drug use FAMILY HISTORY: Positive for heart disease ALLERGIES: Please see below. HOME MEDICATIONS: Please see below. PHYSICAL EXAMINATION: VITAL SIGNS: Please see below. GENERAL: No distress, morbidly obese HEENT: Normocephalic, atraumatic, moist mucous membranes NECK: Supple CARDIOVASCULAR EXAMINATION: S1, S2, no murmurs RESPIRATORY EXAMINATION: Distant, slight wheezing appreciated, scattered rhonchi, diminished in the bases ABDOMINAL EXAMINATION: Soft, nontender, nondistended, positive bowel sounds EXTREMITIES: Range of motion intact SKIN: No rash NEUROLOGICAL EXAMINATION: Alert and oriented 3, no focal deficits PSYCHIATRIC EXAMINATION: Calm and cooperative LABORATORY DATA: See below. IMAGING: CT showing pulmonary vascular congestion MICROBIOLOGY: Please see below. ASSESSMENT: 73-year-old female with an extensive past medical history who was being treated with multiple rounds of antibiotics/steroids is being admitted for CHF exacerbation. PLAN: 1. CHF exacerbation. CT chest showing pulmonary vascular congestion, patient was significant dyspnea, not requiring increased supplemental oxygen from baseline, no fever or signs of infection, respiratory viral panel negative, has been treated with 30 days of oral antibiotics in the past 1-2 months along with substantial amount of steroids. Continue home steroid taper of 20 mg twice a day at this time, hold off on antibiotics due to lack of an obvious source, pro-calcitonin and blood cultures pending, takes torsemide 100 mg daily at home, start Lasix 40 mg IV every 6 hours for now, weigh daily, monitor I's and O's, fluid resection of 1200 mL per day. 2. Obstructive sleep apnea. Continue CPAP with home settings 3. Diabetes mellitus. Decreased home Levemir to 50 units at bedtime, sliding scale insulin before meals and at bedtime. Will adjust based on patient's needs. 4. Hypertension. Continue home meds with hold parameters 5. DVT. continue Eliquis 6. Seizure disorder. Continue Keppra DVT prophylaxis: on Eliquis GI prophylaxis: Home PPI and sucralfate. Vital Signs Vital Signs Date Time Temp Pulse Resp B/P (MAP) Pulse Ox O2 Delivery O2 Flow Rate FiO2 04/06/19 18:29 84 98 04/06/19 18:14 97.9 18 130/91 (104) Nasal Cannula 2.0 Laboratory Data Labs 24H Laboratory Tests 2 04/06/19 15:18: Blood Gas Bicarbonate Standard 30.8H, Arterial Blood pH 7.444, Arterial Blood Partial Pressure CO2 47.6H, Arterial Blood Partial Pressure O2 102.6H, Arterial Blood Total CO2 33.4H, Arterial Blood HCO3 31.9H, Arterial Blood Base Excess 6.9H, Arterial Blood Oxygen Saturation 97.1 04/06/19 15:35: Bedside Glucose (Misc Panel) 396H 04/06/19 16:38: Immature Granulocyte % (Auto) 4.7H, Neutrophils (%) (Auto) 67.7H, Lymphocytes (%) (Auto) 19.6L, Monocytes (%) (Auto) 7.7H, Eosinophils (%) (Auto) 0.0, Basophils (%) (Auto) 0.3, Neutrophils # (Auto) 6.1, Lymphocytes # (Auto) 1.8, Monocytes # (Auto) 0.7, Eosinophils # (Auto) 0.0, Basophils # (Auto) 0.0, Nucleated Red Blood Cells % (auto) 1.0H, Anion Gap 7L, Glomerular Filtration Rate 31.1L, Lactic Acid Level 2.7*H, Calcium Level 9.0, JT-Ube-I-Type Natriuretic Peptide 1210H CBC/BMP Laboratory Tests 04/06/19 16:38 Microbiology Microbiology 04/06/19 Blood Culture, Received Pending 04/06/19 Respiratory Virus Panel (PCR) (GORDY) - Final, Complete 04/06/19 Blood Culture, Received Pending Home Medications Scheduled Allopurinol (Zyloprim) 300 Mg Tab, 300 MG PO DAILY Ammonium Lactate (Ammonium Lactate) 12 % Cre, 1 DOSE TOP BID APPLY TO LEGS/FEET Apixaban (Eliquis) 5 Mg Tablet, 5 MG PO BID Atenolol (Atenolol) 25 Mg Tablet, 25 MG PO BID Atorvastatin Calcium (Atorvastatin Calcium) 10 Mg Tab, 10 MG PO QHS Betamethasone Mala (Betamethasone Valerate) 45 Gm Oint, 1 DOSE TOP QHS USES ON LEGS FOR HOTSPOTS Calcitriol (Calcitriol) 0.25 Mcg Cap, 0.25 MCG PO DAILY Colchicine (Colchicine) 0.6 Mg Tab, 0.6 MG PO DAILY Cyclosporine (Restasis) 0.05 % Emu, 1 DROP OU BID Docusate Sodium (Docusate Sodium) 100 Mg Cap, 100 MG PO BID Duloxetine Hcl (Cymbalta) 60 Mg Capsule.dr, 60 MG PO BID Ergocalciferol (Vitamin D2) (Vitamin D2) 50,000 Units Cap, 50,000 UNITS PO QM ONTH 1ST OF EVERY MONTH Fluticasone Furoate (Arnuity Ellipta) 100 Mcg Blst.w.dev, 1 PUFF INH QHS Insulin Degludec (Tresiba Flextouch U-100) 100 Unit/Ml Inj, 100 UNIT SC DAILY TAKES BEFORE BREAKFAST Insulin Human Lispro (Humalog) 1 Units/0.01 Ml Inj, 1 DOSE SC AC PER SLIDING SCALE < 70: TREAT LBS WITH 15 G CARBS 70 -90: 46, 46, 46 91-130: 52, 52, 52, 8 FOR NIGHT SNACK 131-150: 56, 56, 56, 10 FOR NIGHT SNACK 151-200: 60, 60, 60, 12 FOR NIGHT SNACK, 4 UNITS NPO 201-250: 66, 66, 66, 14 FOR NIGHT SNACK, 6 UNITS NPO 251-300: 72, 72, 72, 16 FOR NIGHT SNACK, 8 UNITS NPO 301-350: 78, 78, 78, 18 FOR NIGHT SNACK, 10 UNITS NPO 351-400: 82, 82, 82, 20 FOR NIGHT SNACK, 14 UNITS NPO 401-450: 86, 86, 86, 22 FOR NIGHT SNACK, 18 UNITS NPO > 450: 90, 90, 90, 24 FOR NIGHT SNACK, 22 UNITS NPO Lactulose (Lactulose) 10 Gm/15 Ml Solution, 30 ML PO BID Levetiracetam (Levetiracetam ER) 500 Mg Lindsay, 500 MG PO BID Levofloxacin (Levaquin) 500 Mg Tablet, 500 MG PO DAILY FILLED 04/05/19 FOR 7 DAYS Nortriptyline HCl (Nortriptyline HCl) 10 Mg Capsule, 10 MG PO QHS Omeprazole (Omeprazole) 20 Mg Cap, 20 MG PO BID Oseltamivir Phosphate (Tamiflu) 75 Mg Capsule, 75 MG PO QHS FILLED 03/30/19 FOR 10 DAYS - 2 DAYS LEFT Polyethylene Glycol 3350 (Miralax) 119 Gm Powder, 17 GM PO BID Prednisone (Prednisone) 20 Mg Tablet, 20 MG PO BID FILLED 04/05/19 FOR 5 DAYS Pregabalin (Lyrica) 150 Mg Capsule, 150 MG PO BID Ropinirole HCl (Ropinirole HCl) 2 Mg Tablet, 2 MG PO QHS Spironolactone (Spironolactone) 25 Mg Tablet, 25 MG PO DAILY Sucralfate (Sucralfate) 1 Gm Tab, 1 GM PO BID Torsemide (Torsemide) 100 Mg Tablet, 100 MG PO DAILY Triamcinolone Acet (Triamcinolone Acetonide 0.025% Crm) 1 Dose/80 Gm Cream, 1 DOSE TOP BID APPLIES ON THIGHS Scheduled PRN Acetaminophen (Tylenol Arthritis) 650 Mg Tab, 650 MG PO Q8H PRN for PAIN Albuterol Sulf (Albuterol Sulfate) 2.5 Mg/3 Ml Nebu, 2.5 MG INH Q4H PRN for SHORTNESS OF BREATH Halobetasol Propionate (Halobetasol Propionate) 0.05 % Cre, 1 DOSE TOP for RASH APPLIES UNDER FOLDS AND BREASTS Magnesium Hydroxide (Milk of Magnesia) 400 Mg/5 Ml Oral.susp, 30 ML PO DAILY PRN for CONSTIPATION Nystatin (Nystatin) 100,000 Unit/Gm Cre, 1 DOSE TOP BID PRN for RASH UNDER BREASTS AND GROIN AREA Nystatin (Nystatin Oint) 30 Gm Oint, 1 DOSE TOP TID PRN for RASH APPLIES AROUND VAGINAL AREA Ondansetron HCl (Ondansetron HCl) 4 Mg Tab, 4 MG PO QID PRN for NAUSEA OR VOMITING Oxycodone HCl/Acetaminophen (Oxycodone-Acetaminophen 5-325) 1 Each Tablet, 1 TAB PO Q8H PRN for PAIN Phenylephrine HCl/[place] Butter (Preparation H Suppository) 1 Each Supp.rect, 1 SUP WI QID PRN for HEMORRHOIDS Allergies Coded Allergies: Cephalosporins (Verified Allergy, Intermediate, hives, 07/14/18) Penicillins (Verified Allergy, Intermediate, hives, 07/14/18) Sulfa (Sulfonamide Antibiotics) (Verified Allergy, Intermediate, hives, 07/14/18) chlorpromazine (Verified Allergy, Intermediate, hiives, 07/14/18) loratadine (Verified Allergy, Intermediate, hives, 07/14/18) pentazocine (Verified Allergy, Intermediate, hives, 07/14/18) TAPE (Verified Allergy, Unknown, band-aids, 07/14/18) methadone (Verified Allergy, Unknown, 09/25/18) HAS HAD DILAUDID AND DEMEROL IN THE PAST A-FIB/CHADSVASC A-FIB History Current/History of A-Fib/PAF?: No GONZALES EMERY MD Apr 06, 2019 19:16
[2019-04-06] MEDS: PERCOCET 5MG/325MG TAB PO PRN (19:59)
[2019-04-06] MEDS ORDERED: LEVEMIR (INSULIN DETEMIR) 1 UNITS/0.01ML SC SCH (21:00)
[2019-04-06 21:40] VITALS: BP 154/67
[2019-04-06] MEDS: ALBUTEROL SULFATE 2.5 MG/0.5 ML INH NEB SOLN INH PRN (22:39)
[2019-04-06] MEDS: levETIRAcetam **XR** 500 MG TABLET PO SCH (23:23)
[2019-04-06] MEDS: DULoxetine 30 MG CAP (CYMBALTA) PO SCH (23:23)
[2019-04-06] MEDS: OMEPRAZOLE 20 MG CAP PO SCH (23:23)
[2019-04-06] MEDS: PREGABALIN 75 MG CAP(LYRICA) PO SCH (23:23)
[2019-04-06] MEDS: ATORVASTATIN 10 MG TAB PO SCH (23:24)
[2019-04-06] MEDS: DOCUSATE SODIUM 100 MG CAP PO SCH (23:24)
[2019-04-06] MEDS: APIXABAN 5 MG TAB (ELIQUIS) PO SCH (23:24)
[2019-04-06] MEDS: SUCRALFATE 1 GM TAB PO SCH (23:24)
[2019-04-06] MEDS: rOPINIRole 2MG TAB PO SCH (23:25)
[2019-04-06] MEDS: NORTRIPTYLINE 10 MG CAP PO SCH (23:25)
[2019-04-06] MEDS: predniSONE 20 MG TAB PO SCH (23:25)
[2019-04-06] MEDS: HumaLOG INSULIN (NovoLOG) PER UNIT SC SCH (23:27)
[2019-04-06] MEDS: LACTIC ACID 12% LOTION 225 GM BTL TOP SCH (23:28)
[2019-04-06] MEDS: BETAMETHASONE VAL 0.1% OINT 15 GM TOP SCH (23:28)
[2019-04-06] MEDS: atenoloL 25 MG TAB PO SCH (23:41)
[2019-04-07] VITALS: BP 148/79
[2019-04-07] MEDS: FUROSEMIDE 40 MG/4 ML VIAL (J1940) IV SCH ×2 (00:22→06:06)
[2019-04-07] MEDS ORDERED: HumaLOG INSULIN (NovoLOG) PER UNIT SC ONE ×4 (02:00→20:45)
[2019-04-07] MEDS ORDERED: LEVEMIR (INSULIN DETEMIR) 1 UNITS/0.01ML SC ONE (02:45)
[2019-04-07 04:00] VITALS: BP 140/64
[2019-04-07 04:43] LABS: ACETONE/KETONE 1.11 MG/DL (<2.81); CREATININE FOR GFR 1.81 MG/DL (0.55-1.30); GLOMERULAR FILTRATION RATE 29.1 (>39); POTASSIUM SERUM 4.5 MEQ/L (3.5-5.1)
[2019-04-07] MEDS: PERCOCET 5MG/325MG TAB PO PRN ×2 (04:50→12:34)
[2019-04-07 05:41] LABS: HEMATOCRIT 30.6 % (36.0-47.0); HEMOGLOBIN 9.1 g/dl (12.0-15.5); MEAN CORPUSCULAR HEMOGLOBIN 24.5 pg (27.0-33.0); MEAN CORPUSCULAR HGB CONC 29.7 g/dl (32.0-36.5); MEAN CORPUSCULAR VOLUME 82.5 fl (80.0-96.0); PLATELET COUNT, AUTOMATED 224 10^3/uL (150-450); RED BLOOD COUNT 3.71 10^6/uL (4.00-5.40); WHITE BLOOD COUNT 9.5 10^3/uL (4.0-10.0)
[2019-04-07 06:11] LABS: ALBUMIN 2.4 GM/DL (3.2-5.2); BILIRUBIN,TOTAL 0.3 MG/DL (0.2-1.0); CALCIUM LEVEL 9.2 MG/DL (8.8-10.2); CREATININE FOR GFR 1.83 MG/DL (0.55-1.30); GLOMERULAR FILTRATION RATE 28.7 (>39); MAGNESIUM LEVEL 2.6 MG/DL (1.8-2.4); POTASSIUM SERUM 4.5 MEQ/L (3.5-5.1); TOTAL PROTEIN 6.8 GM/DL (6.4-8.2)
[2019-04-07 07:34] VITALS: BP 123/64
[2019-04-07] MEDS ORDERED: HumuLIN R (REGULAR) INSULIN (NovoLIN R) **100U/ML** PER UNIT IV STA ×2 (07:58→18:30)
[2019-04-07] MEDS: OMEPRAZOLE 20 MG CAP PO SCH ×2 (08:29→20:54)
[2019-04-07] MEDS: levETIRAcetam **XR** 500 MG TABLET PO SCH ×2 (08:29→20:53)
[2019-04-07] MEDS: atenoloL 25 MG TAB PO SCH ×2 (08:29→20:54)
[2019-04-07] MEDS: SUCRALFATE 1 GM TAB PO SCH ×2 (08:29→20:54)
[2019-04-07] MEDS: predniSONE 20 MG TAB PO SCH (08:29)
[2019-04-07] MEDS: DOCUSATE SODIUM 100 MG CAP PO SCH ×2 (08:29→20:54)
[2019-04-07] MEDS: PREGABALIN 75 MG CAP(LYRICA) PO SCH ×2 (08:29→20:54)
[2019-04-07] MEDS: CALCITRIOL 0.25 MCG CAP (S0169) PO SCH (08:30)
[2019-04-07] MEDS: SPIRONOLACTONE 25 MG TAB PO SCH (08:30)
[2019-04-07] MEDS: COLCHICINE 0.6 MG TAB PO SCH (08:30)
[2019-04-07] MEDS: APIXABAN 5 MG TAB (ELIQUIS) PO SCH ×2 (08:30→20:54)
[2019-04-07] MEDS: allopurinoL 300 MG TAB PO SCH (08:30)
[2019-04-07] MEDS: DULoxetine 30 MG CAP (CYMBALTA) PO SCH ×2 (08:30→20:54)
[2019-04-07] MEDS: LACTIC ACID 12% LOTION 225 GM BTL TOP SCH ×2 (08:45→20:56)
[2019-04-07] MEDS: HumaLOG INSULIN (NovoLOG) PER UNIT SC SCH ×4 (08:45→20:55)
[2019-04-07 12:00] VITALS: BP 153/80
[2019-04-07] MEDS ORDERED: HumuLIN R (REGULAR) INSULIN (NovoLIN R) **100U/ML** PER UNIT IV ONE (13:00)
[2019-04-07] MEDS ORDERED: IRON SUCROSE 100MG 5ML VIAL (J1756 PER 1MG) IV SCH (13:00)
[2019-04-07 13:50] LABS: CALCIUM LEVEL 9.3 MG/DL (8.8-10.2); CREATININE FOR GFR 1.73 MG/DL (0.55-1.30); GLOMERULAR FILTRATION RATE 30.7 (>39); POTASSIUM SERUM 4.6 MEQ/L (3.5-5.1)
[2019-04-07] MEDS: IRON SUCROSE 100 MG in NS 100 ML OVER 1 HR IV SCH (14:34)
[2019-04-07 15:20] VITALS: BP 138/82
[2019-04-07] MEDS ORDERED: MORPHINE 2 MG/ML 1ML VIAL (J2270) IV PRN (18:30)
[2019-04-07] MEDS ORDERED: PREPARATION H SUPP (HEMORRHOID) PR PRN (18:45)
[2019-04-07 20:00] VITALS: BP 142/78
--- NOTE | 2019-04-07 20:21 | IPNPDOC ---
Date Seen The patient was seen on 04/07/19. Progress Note HISTORY OF PRESENT ILLNESS: 73-year-old female with an extensive past medical history including CHF, obstructive sleep apnea on CPAP, diabetes mellitus, hypertension, DVT, gout, seizure disorder, urinary retention status post suprapubic catheter placement, presents with worsening shortness of breath. She reports ongoing shortness of breath and cough for the past 1 month, has been treated with 3 separate courses of antibiotics and steroids, each lasting 10 days. She reports progressive worsening of symptoms despite this treatment, was advised by fur drummer come to the emergency department due to lack of improvement. She reports progressive dyspnea on exertion, cough productive of sputum, no other associated symptoms. She denies any fever, nausea, vomiting, chest pain, abdominal pain, diarrhea, constipation, or lower extremity swelling. 04/07/19 Patient reports improvement in dyspnea, continues to have cough. She has had >5L of urine output since yesterday. She reports R hip pain, chronic 2/2 loose hip joint, no other complaints. She denies any CP, N/V/D or abdominal pain. 10 point review of system is negative except for above PHYSICAL EXAMINATION: VITAL SIGNS: Please see below. GENERAL: No distress, morbidly obese HEENT: Normocephalic, atraumatic, moist mucous membranes NECK: Supple CARDIOVASCULAR EXAMINATION: S1, S2, no murmurs RESPIRATORY EXAMINATION: Distant, slight wheezing appreciated, diminished in the bases ABDOMINAL EXAMINATION: Soft, nontender, nondistended, positive bowel sounds EXTREMITIES: Range of motion intact SKIN: No rash NEUROLOGICAL EXAMINATION: Alert and oriented 3, no focal deficits PSYCHIATRIC EXAMINATION: Calm and cooperative LABORATORY DATA: See below. IMAGING: CT showing pulmonary vascular congestion MICROBIOLOGY: Please see below. ASSESSMENT: 73-year-old female with an extensive past medical history who was being treated with multiple rounds of antibiotics/steroids is being admitted for CHF exacerbation. PLAN: 1. CHF exacerbation. CT chest showing pulmonary vascular congestion, great response to IV lasix, has had >5L urine output, hold further Lasix for now, low likelihood of underlying infection, Procal 0.15, cultres negative to date, hold off on antibiotics, weigh daily, monitor I's and O's, fluid resection of 1500 mL per day. 2. Obstructive sleep apnea. Continue CPAP with home settings, expiratory wheezing appreciated, will start IV steroids. 3. Diabetes mellitus. Increased Levemir to 100 units at bedtime which is patient's home dose, sliding scale insulin before meals and at bedtime. 4. Hypertension. Continue home meds with hold parameters 5. DVT. continue Eliquis 6. Seizure disorder. Continue Keppra DVT prophylaxis: on Eliquis GI prophylaxis: Home PPI and sucralfate. VS, I&O, 24H, Fishbone Vital Signs/I&O Vital Signs Date Time Temp Pulse Resp B/P (MAP) Pulse Ox O2 Delivery O2 Flow Rate FiO2 04/07/19 15:20 98.0 74 18 138/82 (100) 90 Nasal Cannula 2.0 I&O- Last 24 Hours up to 6 AM 04/07/19 06:00 Intake Total 540 ml Output Total 4700 ml Balance -4160 ml Laboratory Data 24H LABS Laboratory Tests 2 04/06/19 21:21: Lactic Acid Followup at 4 Hours 3.1*H 04/06/19 21:54: Bedside Glucose (Misc Panel) 528*H 04/06/19 22:17: Bedside Glucose Confirm (Misc) 527*H 04/07/19 01:07: Bedside Glucose (Misc Panel) 534*H 04/07/19 02:19: Bedside Glucose (Misc Panel) 523*H 04/07/19 02:53: Anion Gap 11, Glomerular Filtration Rate 29.1L, Osmolality 309H, Calcium Level 9.0, B-Hydroxybutyrate 1.11 04/07/19 04:06: Bedside Glucose (Misc Panel) 466H 04/07/19 05:23: Anion Gap 9, Glomerular Filtration Rate 28.7L, Calcium Level 9.2, Nucleated Red Blood Cells % (auto) 0.5H, Magnesium Level 2.6H, Total Bilirubin 0.3, Aspartate Amino Transf (AST/SGOT) 12, Alanine Aminotransferase (ALT/SGPT) 27, Alkaline Phosphatase 87, Total Protein 6.8, Albumin 2.4L, Albumin/Globulin Ratio 0.55L, Procalcitonin 0.15 04/07/19 08:05: Lactic Acid Level 2.5*H 04/07/19 11:19: Bedside Glucose (Misc Panel) 313H 04/07/19 13:07: Anion Gap 8, Glomerular Filtration Rate 30.7L, Lactic Acid Followup at 4 Hours 2.0, Calcium Level 9.3 04/07/19 17:33: Bedside Glucose (Misc Panel) 425H 04/07/19 19:57: Bedside Glucose (Misc Panel) 447H CBC/BMP Laboratory Tests 04/07/19 02:53 04/07/19 05:23 04/07/19 13:07 Microbiology Microbiology 04/06/19 Blood Culture - Preliminary, Resulted No growth after 24 hours . All specim... 04/06/19 Respiratory Virus Panel (PCR) ([facility]) - Final, Complete 04/06/19 Blood Culture - Preliminary, Resulted No growth after 24 hours . All specim... GONZALES EMERY MD Apr 07, 2019 20:21
[2019-04-07] MEDS: LEVEMIR (INSULIN DETEMIR) 1 UNITS/0.01ML SC SCH (20:52)
[2019-04-07] MEDS: rOPINIRole 2MG TAB PO SCH (20:53)
[2019-04-07] MEDS: methylPREDNISolone INJ 40 MG/1 ML VIAL (J2920) IV SCH (20:53)
[2019-04-07] MEDS: LACTULOSE 20 GM/30 ML SYRUP UD PO SCH (20:53)
[2019-04-07] MEDS: NORTRIPTYLINE 10 MG CAP PO SCH (20:54)
[2019-04-07] MEDS: ACETAMINOPHEN 650MG ER TAB (TYLENOL ARTHRITIS) PO PRN (20:54)
[2019-04-07] MEDS: ATORVASTATIN 10 MG TAB PO SCH (20:55)
[2019-04-07] MEDS: MIRALAX *UNIT DOSE* 17GM PACKET PO SCH (20:55)
[2019-04-07] MEDS: BETAMETHASONE VAL 0.1% OINT 15 GM TOP SCH (20:56)
[2019-04-07] MEDS ORDERED: LEVEMIR (INSULIN DETEMIR) 1 UNITS/0.01ML SC SCH ×2 (21:00)
[2019-04-07] MEDS ORDERED: FUROSEMIDE 40 MG/4 ML VIAL (J1940) IV SCH (21:00)
[2019-04-08] VITALS: BP 142/80
[2019-04-08] MEDS: methylPREDNISolone INJ 40 MG/1 ML VIAL (J2920) IV SCH ×3 (03:48→21:04)
[2019-04-08 04:00] VITALS: BP 150/78
[2019-04-08 05:43] LABS: HEMATOCRIT 34.4 % (36.0-47.0); HEMOGLOBIN 9.5 g/dl (12.0-15.5); MEAN CORPUSCULAR HEMOGLOBIN 24.1 pg (27.0-33.0); MEAN CORPUSCULAR HGB CONC 27.6 g/dl (32.0-36.5); MEAN CORPUSCULAR VOLUME 87.1 fl (80.0-96.0); PLATELET COUNT, AUTOMATED 215 10^3/uL (150-450); RED BLOOD COUNT 3.95 10^6/uL (4.00-5.40); WHITE BLOOD COUNT 8.4 10^3/uL (4.0-10.0)
[2019-04-08 06:18] LABS: ALBUMIN 2.4 GM/DL (3.2-5.2); BILIRUBIN,TOTAL 0.4 MG/DL (0.2-1.0); CALCIUM LEVEL 9.6 MG/DL (8.8-10.2); CREATININE FOR GFR 1.72 MG/DL (0.55-1.30); GLOMERULAR FILTRATION RATE 30.9 (>39); MAGNESIUM LEVEL 2.8 MG/DL (1.8-2.4); PHOSPHORUS LEVEL 3.7 MG/DL (2.5-4.9); POTASSIUM SERUM 4.8 MEQ/L (3.5-5.1); TOTAL PROTEIN 6.7 GM/DL (6.4-8.2)
[2019-04-08] MEDS: ACETAMINOPHEN 650MG ER TAB (TYLENOL ARTHRITIS) PO PRN ×3 (06:18→21:11)
--- NOTE | 2019-04-08 07:26 | ECHO ---
DATE OF SERVICE: 04/07/2019 AGE: 73. REFERRING PROVIDER: Dr. Palacios PATIENT LOCATION: Room 3213. REASON FOR THE STUDY: Congestive heart failure. 2D MEASUREMENTS: IVS: 1.1 cm LV: 4.3 cm LVPW: 1.1 cm LA: 3.4 cm Aorta: 2.6 cm IVC: 1.5 cm DOPPLER MEASUREMENTS: Peak velocity across the aortic valve: 1.4 m/s Peak velocity across the LVOT: 0.94 m/s Mitral E: 1.0 Mitral A: 0.88 with a ratio of 1.2 Maximum tricuspid valve velocity: 2.8 m/s 2D COMMENTS: 1. Normal left ventricular size, wall thickness, and low normal global left ventricular systolic function. The estimated left ventricular systolic cardioversion is 55% to 60%. 2. Normal left atrium. Normal right atrium and right ventricle. 3. The atrial septum appeared to be normal without evidence of defect or shunt. 4. Normal aortic root. 5. A small pericardial effusion was noted, no evidence of cardiac tamponade. 6. Mildly calcified aortic valve with normal leaflet excursion. Mildly calcified mitral annulus with normal anterior mitral valve leaflet motion. Normal tricuspid valve. The pulmonic valve and proximal pulmonary artery branches also appeared to be normal. 7. The inferior vena cava was normal in size, central venous pressure might be normal. DOPPLER: It detects mild aortic regurgitation, mild mitral regurgitation, and trace to mild tricuspid regurgitation. The calculated pulmonary artery systolic pressure varies between 30-40 mmHg. Abnormal relaxation pattern was noted across the mitral valve annulus consistent with features of grade 2 left ventricular diastolic dysfunction, left ventricular and diastolic pressure might be elevated. IMPRESSION: 1. Low normal global left ventricular systolic function. There are features of grade 2 left ventricular diastolic dysfunction. 2. Aortic valve sclerosis with mild aortic regurgitation but no aortic stenosis. 3. Mitral annulus calcification with mild mitral regurgitation. 4. Trace to mild tricuspid regurgitation with probably mild pulmonary hypertension. 5. A small pericardial effusion was noted, no evidence of cardiac tamponade. 6. Global longitudinal strain was low, global longitudinal strain/GLS was low, calculated at 13%, putting the patient at risk to develop heart failure. 7. Most recent echocardiogram in the system was on 05/27/2016; and at that time, left ventricular ejection fraction (LVEF) was estimated at 60% to 65%. Otherwise, there were no significant changes in the underlying valvular heart disease.
[2019-04-08 07:46] VITALS: BP 132/63
[2019-04-08] MEDS: LACTULOSE 20 GM/30 ML SYRUP UD PO SCH ×2 (08:04→21:12)
[2019-04-08] MEDS: MIRALAX *UNIT DOSE* 17GM PACKET PO SCH ×2 (08:04→21:12)
[2019-04-08] MEDS: HumaLOG INSULIN (NovoLOG) PER UNIT SC SCH ×4 (08:05→22:37)
[2019-04-08] MEDS: COLCHICINE 0.6 MG TAB PO SCH (08:05)
[2019-04-08] MEDS: PREGABALIN 75 MG CAP(LYRICA) PO SCH ×2 (08:05→21:06)
[2019-04-08] MEDS: levETIRAcetam **XR** 500 MG TABLET PO SCH ×2 (08:05→21:06)
[2019-04-08] MEDS: SPIRONOLACTONE 25 MG TAB PO SCH (08:06)
[2019-04-08] MEDS: allopurinoL 300 MG TAB PO SCH (08:06)
[2019-04-08] MEDS: OMEPRAZOLE 20 MG CAP PO SCH ×2 (08:06→21:06)
[2019-04-08] MEDS: DOCUSATE SODIUM 100 MG CAP PO SCH ×2 (08:06→21:05)
[2019-04-08] MEDS: CALCITRIOL 0.25 MCG CAP (S0169) PO SCH (08:06)
[2019-04-08] MEDS: APIXABAN 5 MG TAB (ELIQUIS) PO SCH ×2 (08:06→21:05)
[2019-04-08] MEDS: atenoloL 25 MG TAB PO SCH ×2 (08:06→21:07)
[2019-04-08] MEDS: DULoxetine 30 MG CAP (CYMBALTA) PO SCH ×2 (08:06→21:05)
[2019-04-08] MEDS: SUCRALFATE 1 GM TAB PO SCH ×2 (08:06→21:06)
[2019-04-08] MEDS: LACTIC ACID 12% LOTION 225 GM BTL TOP SCH ×2 (08:07→21:10)
[2019-04-08] MEDS: PERCOCET 5MG/325MG TAB PO PRN ×2 (08:14→17:05)
[2019-04-08] MEDS ORDERED: HumuLIN R (REGULAR) INSULIN (NovoLIN R) **100U/ML** PER UNIT IV STA ×2 (08:34→18:37)
[2019-04-08 11:43] VITALS: BP 118/54
[2019-04-08] MEDS: IRON SUCROSE 100 MG in NS 100 ML OVER 1 HR IV SCH (12:11)
[2019-04-08 15:52] VITALS: BP 132/58
[2019-04-08] MEDS: ALBUTEROL SULFATE 2.5 MG/0.5 ML INH NEB SOLN INH PRN (18:05)
--- NOTE | 2019-04-08 18:59 | IPNPDOC ---
Date Seen The patient was seen on 04/08/19. Progress Note HISTORY OF PRESENT ILLNESS: 73-year-old female with an extensive past medical history including CHF, obstructive sleep apnea on CPAP, diabetes mellitus, hypertension, DVT, gout, seizure disorder, urinary retention status post suprapubic catheter placement, presents with worsening shortness of breath. She reports ongoing shortness of breath and cough for the past 1 month, has been treated with 3 separate courses of antibiotics and steroids, each lasting 10 days. She reports progressive worsening of symptoms despite this treatment, was advised by closing specialist come to the emergency department due to lack of improvement. She reports progressive dyspnea on exertion, cough productive of sputum, no other associated symptoms. She denies any fever, nausea, vomiting, chest pain, abdominal pain, diarrhea, constipation, or lower extremity swelling. 04/07/19 Patient reports improvement in dyspnea, continues to have cough. She has had >5L of urine output since yesterday. She reports R hip pain, chronic 2/2 loose hip joint, no other complaints. She denies any CP, N/V/D or abdominal pain. 04/08/19 Patient comfortable in chair, reports improvement in dyspnea, continues to have dry cough and right hip pain, no other complaints. 10 point review of system is negative except for above PHYSICAL EXAMINATION: VITAL SIGNS: Please see below. GENERAL: No distress, morbidly obese HEENT: Normocephalic, atraumatic, moist mucous membranes NECK: Supple CARDIOVASCULAR EXAMINATION: S1, S2, no murmurs RESPIRATORY EXAMINATION: Distant, slight wheezing appreciated, diminished in the bases ABDOMINAL EXAMINATION: Soft, nontender, nondistended, positive bowel sounds EXTREMITIES: Range of motion intact SKIN: No rash NEUROLOGICAL EXAMINATION: Alert and oriented 3, no focal deficits PSYCHIATRIC EXAMINATION: Calm and cooperative LABORATORY DATA: See below. IMAGING: CT showing pulmonary vascular congestion MICROBIOLOGY: Please see below. ASSESSMENT: 73-year-old female with an extensive past medical history who was being treated with multiple rounds of antibiotics/steroids is being admitted for CHF exacerbation. PLAN: 1. CHF exacerbation. CT chest showing pulmonary vascular congestion, great response to IV lasix, has had >5L urine output, urine output slowed down today, restart home torsemide 100 mg daily, low likelihood of underlying infection, Procal 0.15, cultres negative to date, hold off on antibiotics, weigh daily, monitor I's and O's, fluid resection of 1500 mL per day. 2. Obstructive sleep apnea. Continue CPAP with home settings, expiratory wheezing appreciated, continue So yoselin-Medrol 40 mg every 8 hours. 3. Diabetes mellitus. Continue Levemir to 100 units at bedtime, sliding scale insulin before meals and at bedtime. Patient required 25 units of IV insulin today to improve glucose control. 4. Hypertension. Continue home meds with hold parameters 5. DVT. continue Eliquis 6. Seizure disorder. Continue Keppra DVT prophylaxis: on Eliquis GI prophylaxis: Home PPI and sucralfate. VS, I&O, 24H, Fishbone Vital Signs/I&O Vital Signs Date Time Temp Pulse Resp B/P (MAP) Pulse Ox O2 Delivery O2 Flow Rate FiO2 04/08/19 17:35 20 04/08/19 15:52 96.9 76 132/58 (82) 92 Room Air 04/07/19 20:00 2.0 I&O- Last 24 Hours up to 6 AM 04/08/19 06:00 Intake Total 2385 ml Output Total 2250 ml Balance 135 ml Laboratory Data 24H LABS Laboratory Tests 2 04/07/19 19:57: Bedside Glucose (Misc Panel) 447H 04/07/19 23:13: Bedside Glucose (Misc Panel) 420H 04/08/19 05:16: Nucleated Red Blood Cells % (auto) 1.2H, Anion Gap 6L, Glomerular Filtration Rate 30.9L, Calcium Level 9.6, Phosphorus Level 3.7, Magnesium Level 2.8H, Total Bilirubin 0.4, Aspartate Amino Transf (AST/SGOT) 15, Alanine Aminotransferase (ALT/SGPT) 23, Alkaline Phosphatase 79, Total Protein 6.7, Albumin 2.4L, Albumin/Globulin Ratio 0.56L 04/08/19 07:44: Bedside Glucose (Misc Panel) 411H 04/08/19 11:59: Bedside Glucose (Misc Panel) 342H 04/08/19 17:02: Bedside Glucose (Misc Panel) 347H CBC/BMP Laboratory Tests 04/08/19 05:16 Microbiology Microbiology 04/06/19 Blood Culture - Preliminary, Resulted No Growth after 48 hours. All Specime... 04/06/19 Respiratory Virus Panel (PCR) ([facility]) - Final, Complete 1/3/20 Blood Culture - Preliminary, Resulted No Growth after 48 hours. All Specime... GONZALES EMERY MD Apr 08, 2019 18:59
[2019-04-08 20:00] VITALS: BP 173/74
[2019-04-08] MEDS ORDERED: TORSEMIDE 100 MG TAB PO ONE (20:00)
[2019-04-08] MEDS: ATORVASTATIN 10 MG TAB PO SCH (21:06)
[2019-04-08] MEDS: rOPINIRole 2MG TAB PO SCH (21:06)
[2019-04-08] MEDS: NORTRIPTYLINE 10 MG CAP PO SCH (21:06)
[2019-04-08] MEDS: LEVEMIR (INSULIN DETEMIR) 1 UNITS/0.01ML SC SCH (21:09)
[2019-04-08] MEDS: BETAMETHASONE VAL 0.1% OINT 15 GM TOP SCH (21:10)
[2019-04-09] VITALS: BP 128/68
[2019-04-09] MEDS: methylPREDNISolone INJ 40 MG/1 ML VIAL (J2920) IV SCH ×2 (03:42→12:00)
[2019-04-09] MEDS: SODIUM CHLORIDE 0.9% INJ 10 ML SYR IV PRN (03:43)
[2019-04-09] MEDS: PERCOCET 5MG/325MG TAB PO PRN (03:45)
[2019-04-09 04:00] VITALS: BP 122/70
[2019-04-09 05:48] LABS: HEMATOCRIT 35.2 % (36.0-47.0); HEMOGLOBIN 9.7 g/dl (12.0-15.5); MEAN CORPUSCULAR HEMOGLOBIN 23.5 pg (27.0-33.0); MEAN CORPUSCULAR HGB CONC 27.6 g/dl (32.0-36.5); MEAN CORPUSCULAR VOLUME 85.4 fl (80.0-96.0); PLATELET COUNT, AUTOMATED 259 10^3/uL (150-450); RED BLOOD COUNT 4.12 10^6/uL (4.00-5.40); WHITE BLOOD COUNT 14.6 10^3/uL (4.0-10.0)
[2019-04-09 06:23] LABS: CALCIUM LEVEL 9.9 MG/DL (8.8-10.2); CREATININE FOR GFR 1.87 MG/DL (0.55-1.30); POTASSIUM SERUM 4.5 MEQ/L (3.5-5.1)
[2019-04-09] MEDS ORDERED: LEVEMIR (INSULIN DETEMIR) 1 UNITS/0.01ML SC ONE (07:15)
[2019-04-09 08:00] VITALS: BP 168/82
[2019-04-09] MEDS: COLCHICINE 0.6 MG TAB PO SCH (08:10)
[2019-04-09] MEDS: OMEPRAZOLE 20 MG CAP PO SCH ×2 (08:10→21:57)
[2019-04-09] MEDS: SPIRONOLACTONE 25 MG TAB PO SCH (08:10)
[2019-04-09] MEDS: LACTULOSE 20 GM/30 ML SYRUP UD PO SCH ×2 (08:10→21:59)
[2019-04-09] MEDS: MIRALAX *UNIT DOSE* 17GM PACKET PO SCH ×2 (08:10→22:00)
[2019-04-09] MEDS: levETIRAcetam **XR** 500 MG TABLET PO SCH ×2 (08:11→21:58)
[2019-04-09] MEDS: PREGABALIN 75 MG CAP(LYRICA) PO SCH ×2 (08:11→21:58)
[2019-04-09] MEDS: APIXABAN 5 MG TAB (ELIQUIS) PO SCH ×2 (08:11→21:58)
[2019-04-09] MEDS: atenoloL 25 MG TAB PO SCH ×2 (08:11→21:59)
[2019-04-09] MEDS: DULoxetine 30 MG CAP (CYMBALTA) PO SCH ×2 (08:11→21:58)
[2019-04-09] MEDS: CALCITRIOL 0.25 MCG CAP (S0169) PO SCH (08:12)
[2019-04-09] MEDS: SUCRALFATE 1 GM TAB PO SCH ×2 (08:12→21:58)
[2019-04-09] MEDS: DOCUSATE SODIUM 100 MG CAP PO SCH ×2 (08:12→21:57)
[2019-04-09] MEDS: LACTIC ACID 12% LOTION 225 GM BTL TOP SCH ×2 (08:12→21:59)
[2019-04-09] MEDS: allopurinoL 300 MG TAB PO SCH (08:12)
[2019-04-09] MEDS: HumaLOG INSULIN (NovoLOG) PER UNIT SC SCH ×4 (08:13→21:00)
[2019-04-09] MEDS ORDERED: HumuLIN R (REGULAR) INSULIN (NovoLIN R) **100U/ML** PER UNIT IV STA ×2 (08:54→10:58)
[2019-04-09] MEDS ORDERED: TORSEMIDE 100 MG TAB PO SCH (09:00)
[2019-04-09 12:00] VITALS: BP 140/64
[2019-04-09] MEDS ORDERED: INSULIN HUMAN REGULAR 100 UNITS in NS 99 ML IV SCH (13:00)
[2019-04-09 14:24] LABS: CALCIUM LEVEL 10.4 MG/DL (8.8-10.2); CREATININE FOR GFR 1.76 MG/DL (0.55-1.30)
[2019-04-09 16:00] VITALS: BP 138/68
--- NOTE | 2019-04-09 16:21 | IPNPDOC ---
Date Seen The patient was seen on 04/09/19. Progress Note HISTORY OF PRESENT ILLNESS: 73-year-old female with an extensive past medical history including CHF, obstructive sleep apnea on CPAP, diabetes mellitus, hypertension, DVT, gout, seizure disorder, urinary retention status post suprapubic catheter placement, presents with worsening shortness of breath. She reports ongoing shortness of breath and cough for the past 1 month, has been treated with 3 separate courses of antibiotics and steroids, each lasting 10 days. She reports progressive worsening of symptoms despite this treatment, was advised by manager inspection come to the emergency department due to lack of improvement. She reports progressive dyspnea on exertion, cough productive of sputum, no other associated symptoms. She denies any fever, nausea, vomiting, chest pain, abdominal pain, diarrhea, constipation, or lower extremity swelling. 04/07/19 Patient reports improvement in dyspnea, continues to have cough. She has had >5L of urine output since yesterday. She reports R hip pain, chronic 2/2 loose hip joint, no other complaints. She denies any CP, N/V/D or abdominal pain. 04/08/19 Patient comfortable in chair, reports improvement in dyspnea, continues to have dry cough and right hip pain, no other complaints. 04/09/19 Patient comfortable in chair, minimal cough, dyspnea is improved, continues to have significantly elevated blood glucose, received an extra dose of IV insulin along with increased Levemir and sliding scale coverage. Despite all these measures, patient's blood glucose is greater than 450. 10 point review of system is negative except for above PHYSICAL EXAMINATION: VITAL SIGNS: Please see below. GENERAL: No distress, morbidly obese HEENT: Normocephalic, atraumatic, moist mucous membranes NECK: Supple CARDIOVASCULAR EXAMINATION: S1, S2, no murmurs RESPIRATORY EXAMINATION: Distant, slight wheezing appreciated, diminished in the bases ABDOMINAL EXAMINATION: Soft, nontender, nondistended, positive bowel sounds EXTREMITIES: Range of motion intact SKIN: No rash NEUROLOGICAL EXAMINATION: Alert and oriented 3, no focal deficits PSYCHIATRIC EXAMINATION: Calm and cooperative LABORATORY DATA: See below. IMAGING: CT showing pulmonary vascular congestion MICROBIOLOGY: Please see below. ASSESSMENT: 73-year-old female with an extensive past medical history who was being treated with multiple rounds of antibiotics/steroids is being admitted for CHF exacerbation. PLAN: 1. CHF exacerbation. CT chest showing pulmonary vascular congestion, has had an exceptional response to diuretics, hold off on further diuresis for now, low likelihood of underlying infection, Procal 0.15, cultres negative to date, hold off on antibiotics, weigh daily, monitor I's and O's, fluid resection of 1500 mL per day. 2. Obstructive sleep apnea. Continue CPAP with home settings, decreased Solu-Medrol to 40 mg IV twice a day. 3. Diabetes mellitus. Increased Levemir to 110 units at bedtime, sliding scale insulin before meals and at bedtime. Patient was given 10 units of regular insulin IV, followed by initiation of insulin drip at 10 units per hour for 3-1/2 hours with improvement in blood glucose to 185. Insulin drip was subsequently discontinued and sliding scale coverage with Levemir reinitiated. If fingersticks remain acceptable, tentatively plan for discharge tomorrow. 4. Hypertension. Continue home meds with hold parameters 5. DVT. continue Eliquis 6. Seizure disorder. Continue Keppra 7. Chronic kidney disease stage III Creatinine slightly elevated from baseline, we will hold torsemide for now, continue to monitor creatinine. DVT prophylaxis: on Eliquis GI prophylaxis: Home PPI and sucralfate. VS, I&O, 24H, Fishbone Vital Signs/I&O Vital Signs Date Time Temp Pulse Resp B/P (MAP) Pulse Ox O2 Delivery O2 Flow Rate FiO2 04/09/19 12:00 96.9 58 17 140/64 (89) 97 Nasal Cannula 2.0 I&O- Last 24 Hours up to 6 AM 04/09/19 06:00 Intake Total 940 ml Output Total 4250 ml Balance -3310 ml Laboratory Data 24H LABS Laboratory Tests 2 04/08/19 17:02: Bedside Glucose (Misc Panel) 347H 04/08/19 20:58: Bedside Glucose (Misc Panel) 371H 04/09/19 05:12: Nucleated Red Blood Cells % (auto) 1.2H, Anion Gap 7L, Glomerular Filtration Rate 28.0L, Calcium Level 9.9 04/09/19 09:42: Bedside Glucose (Misc Panel) 505*H 04/09/19 09:51: Bedside Glucose (Misc Panel) 460H 04/09/19 11:31: Bedside Glucose (Misc Panel) 434H 04/09/19 12:22: Bedside Glucose (Misc Panel) 368H 04/09/19 13:07: Bedside Glucose (Misc Panel) 308H 04/09/19 13:57: Anion Gap 8, Glomerular Filtration Rate 30.0L, Calcium Level 10.4H 04/09/19 14:14: Bedside Glucose (Misc Panel) 256H 04/09/19 15:26: Bedside Glucose (Misc Panel) 195H CBC/BMP Laboratory Tests 04/09/19 05:12 04/09/19 13:57 Microbiology Microbiology 04/06/19 Blood Culture - Preliminary, Resulted No Growth after 48 hours. All Specime... 04/06/19 Respiratory Virus Panel (PCR) ([facility]) - Final, Complete 04/06/19 Blood Culture - Preliminary, Resulted No Growth after 48 hours. All Specime... GONZALES EMERY MD Apr 09, 2019 16:21
[2019-04-09] MEDS: IRON SUCROSE 100 MG in NS 100 ML OVER 1 HR IV SCH (16:29)
[2019-04-09] MEDS: ALBUTEROL SULFATE 2.5 MG/0.5 ML INH NEB SOLN INH PRN (19:40)
[2019-04-09 20:00] VITALS: BP 102/62
[2019-04-09] MEDS: ATORVASTATIN 10 MG TAB PO SCH (21:58)
[2019-04-09] MEDS: rOPINIRole 2MG TAB PO SCH (21:58)
[2019-04-09] MEDS: NORTRIPTYLINE 10 MG CAP PO SCH (21:59)
[2019-04-09] MEDS: BETAMETHASONE VAL 0.1% OINT 15 GM TOP SCH (22:00)
[2019-04-09] MEDS: LEVEMIR (INSULIN DETEMIR) 1 UNITS/0.01ML SC SCH (22:01)
[2019-04-10] VITALS: BP 128/62
[2019-04-10 04:00] VITALS: BP 120/68
[2019-04-10] MEDS: PERCOCET 5MG/325MG TAB PO PRN ×3 (05:48→17:58)
[2019-04-10 07:04] LABS: HEMATOCRIT 43.2 % (36.0-47.0); MEAN CORPUSCULAR HEMOGLOBIN 24.1 pg (27.0-33.0); MEAN CORPUSCULAR HGB CONC 27.8 g/dl (32.0-36.5); MEAN CORPUSCULAR VOLUME 86.9 fl (80.0-96.0); PLATELET COUNT, AUTOMATED 270 10^3/uL (150-450); RED BLOOD COUNT 4.97 10^6/uL (4.00-5.40); WHITE BLOOD COUNT 16.6 10^3/uL (4.0-10.0)
[2019-04-10 07:34] LABS: CALCIUM LEVEL 10.8 MG/DL (8.8-10.2); GLOMERULAR FILTRATION RATE 25.9 (>39); PHOSPHORUS LEVEL 5.1 MG/DL (2.5-4.9); POTASSIUM SERUM 3.9 MEQ/L (3.5-5.1)
[2019-04-10 08:00] VITALS: BP 131/60
[2019-04-10] MEDS ORDERED: NS 500 ML IV SCH (08:00)
[2019-04-10] MEDS: OMEPRAZOLE 20 MG CAP PO SCH ×2 (08:22→21:09)
[2019-04-10] MEDS: COLCHICINE 0.6 MG TAB PO SCH (08:22)
[2019-04-10] MEDS: levETIRAcetam **XR** 500 MG TABLET PO SCH ×2 (08:22→21:08)
[2019-04-10] MEDS: APIXABAN 5 MG TAB (ELIQUIS) PO SCH ×2 (08:22→21:08)
[2019-04-10] MEDS: LACTULOSE 20 GM/30 ML SYRUP UD PO SCH ×2 (08:22→21:05)
[2019-04-10] MEDS: atenoloL 25 MG TAB PO SCH ×2 (08:23→21:08)
[2019-04-10] MEDS: DOCUSATE SODIUM 100 MG CAP PO SCH ×2 (08:23→21:07)
[2019-04-10] MEDS: CALCITRIOL 0.25 MCG CAP (S0169) PO SCH (08:23)
[2019-04-10] MEDS: DULoxetine 30 MG CAP (CYMBALTA) PO SCH ×2 (08:23→21:07)
[2019-04-10] MEDS: MIRALAX *UNIT DOSE* 17GM PACKET PO SCH ×2 (08:24→21:05)
[2019-04-10] MEDS: allopurinoL 300 MG TAB PO SCH (08:24)
[2019-04-10] MEDS: PREGABALIN 75 MG CAP(LYRICA) PO SCH ×2 (08:28→21:09)
[2019-04-10] MEDS: SPIRONOLACTONE 25 MG TAB PO SCH (08:28)
[2019-04-10] MEDS: LACTIC ACID 12% LOTION 225 GM BTL TOP SCH ×2 (08:28→21:06)
[2019-04-10] MEDS: SUCRALFATE 1 GM TAB PO SCH ×2 (08:28→21:09)
[2019-04-10] MEDS: HumaLOG INSULIN (NovoLOG) PER UNIT SC SCH ×4 (08:29→21:06)
[2019-04-10] MEDS: ALBUTEROL SULFATE 2.5 MG/0.5 ML INH NEB SOLN INH PRN (08:52)
[2019-04-10] MEDS ORDERED: methylPREDNISolone INJ 40 MG/1 ML VIAL (J2920) IV SCH (09:00)
[2019-04-10 12:00] VITALS: BP 154/72
[2019-04-10] MEDS: IRON SUCROSE 100 MG in NS 100 ML OVER 1 HR IV SCH (14:47)
--- NOTE | 2019-04-10 15:48 | IPNPDOC ---
Date Seen The patient was seen on 04/10/19. Progress Note HISTORY OF PRESENT ILLNESS: 73-year-old female with an extensive past medical history including CHF, obstructive sleep apnea on CPAP, diabetes mellitus, hypertension, DVT, gout, seizure disorder, urinary retention status post suprapubic catheter placement, presents with worsening shortness of breath. She reports ongoing shortness of breath and cough for the past 1 month, has been treated with 3 separate courses of antibiotics and steroids, each lasting 10 days. She reports progressive worsening of symptoms despite this treatment, was advised by explosive ordnance handler come to the emergency department due to lack of improvement. She reports progressive dyspnea on exertion, cough productive of sputum, no other associated symptoms. She denies any fever, nausea, vomiting, chest pain, abdominal pain, diarrhea, constipation, or lower extremity swelling. 04/07/19 Patient reports improvement in dyspnea, continues to have cough. She has had >5L of urine output since yesterday. She reports R hip pain, chronic 2/2 loose hip joint, no other complaints. She denies any CP, N/V/D or abdominal pain. 04/08/19 Patient comfortable in chair, reports improvement in dyspnea, continues to have dry cough and right hip pain, no other complaints. 04/09/19 Patient comfortable in chair, minimal cough, dyspnea is improved, continues to have significantly elevated blood glucose, received an extra dose of IV insulin along with increased Levemir and sliding scale coverage. Despite all these measures, patient's blood glucose is greater than 450. 04/10/19 Glucose significantly better controlled after insulin drip yesterday, patient denies any dyspnea or cough at this time, respiratory status at baseline. She denies any chest pain, nausea, vomiting, abdominal pain or diarrhea. 10 point review of system is negative except for above PHYSICAL EXAMINATION: VITAL SIGNS: Please see below. GENERAL: No distress, morbidly obese HEENT: Normocephalic, atraumatic, moist mucous membranes NECK: Supple CARDIOVASCULAR EXAMINATION: S1, S2, no murmurs RESPIRATORY EXAMINATION: Distant, slight wheezing appreciated, diminished in the bases ABDOMINAL EXAMINATION: Soft, nontender, nondistended, positive bowel sounds EXTREMITIES: Range of motion intact SKIN: No rash NEUROLOGICAL EXAMINATION: Alert and oriented 3, no focal deficits PSYCHIATRIC EXAMINATION: Calm and cooperative LABORATORY DATA: See below. IMAGING: CT showing pulmonary vascular congestion MICROBIOLOGY: Please see below. ASSESSMENT: 73-year-old female with an extensive past medical history who was being treated with multiple rounds of antibiotics/steroids is being admitted for CHF exacerbation. PLAN: 1. CHF exacerbation. Treated adequately with IV Lasix and subsequent torsemide. Patient had a substantial response diuretics, which was unexpected, given her home dose of torsemide 100 mg daily. Patient with worsening renal function, likely from over diuresis, will provide gentle IV hydration for total of 500 mL's. 2. Obstructive sleep apnea. Continue CPAP with home settings, Solu-Medrol switched to prednisone taper which patient was taken prior to admission. 3. Diabetes mellitus. Continue Levemir to 110 units at bedtime, sliding scale insulin before meals and at bedtime. Will adjust insulin based on patient's needs. 4. Hypertension. Continue home meds with hold parameters 5. DVT. continue Eliquis 6. Seizure disorder. Continue Keppra 7. Acute on Chronic kidney disease stage III Likely due to overdiuresis and prolonged hyperglycemia, gentle IV hydration. DVT prophylaxis: on Eliquis GI prophylaxis: Home PPI and sucralfate. VS, I&O, 24H, Fishbone Vital Signs/I&O Vital Signs Date Time Temp Pulse Resp B/P (MAP) Pulse Ox O2 Delivery O2 Flow Rate FiO2 04/10/19 12:00 96.5 80 18 154/72 (99) 98 Nasal Cannula 2.0 I&O- Last 24 Hours up to 6 AM 04/10/19 06:00 Intake Total 1140 ml Output Total 2100 ml Balance -960 ml Laboratory Data 24H LABS Laboratory Tests 2 04/09/19 16:05: Bedside Glucose (Misc Panel) 185H 04/09/19 17:12: Bedside Glucose (Misc Panel) 151H 04/09/19 19:19: Bedside Glucose (Misc Panel) 220H 04/10/19 06:55: Nucleated Red Blood Cells % (auto) 2.7H, Anion Gap 10, Glomerular Filtration Ra te 25.9L, Calcium Level 10.8H, Phosphorus Level 5.1#H, Magnesium Level 3.0H 04/10/19 11:54: Bedside Glucose (Misc Panel) 273H CBC/BMP Laboratory Tests 04/10/19 06:55 Microbiology Microbiology 04/06/19 Blood Culture - Preliminary, Resulted No Growth after 72 hours. All specime... 04/06/19 Respiratory Virus Panel (PCR) ([facility]) - Final, Complete 04/06/19 Blood Culture - Preliminary, Resulted No Growth after 72 hours. All specime... GONZALES EMERY MD Apr 10, 2019 15:48
[2019-04-10 16:00] VITALS: BP 127/61
[2019-04-10] MEDS: ACETAMINOPHEN 650MG ER TAB (TYLENOL ARTHRITIS) PO PRN (16:08)
[2019-04-10 19:56] VITALS: BP 119/58
[2019-04-10] MEDS: LEVEMIR (INSULIN DETEMIR) 1 UNITS/0.01ML SC SCH (21:06)
[2019-04-10] MEDS: BETAMETHASONE VAL 0.1% OINT 15 GM TOP SCH (21:06)
[2019-04-10] MEDS: NORTRIPTYLINE 10 MG CAP PO SCH (21:08)
[2019-04-10] MEDS: rOPINIRole 2MG TAB PO SCH (21:08)
[2019-04-10] MEDS: ATORVASTATIN 10 MG TAB PO SCH (21:09)
[2019-04-11] VITALS (7 sets, daily range): BP systolic 120–151; BP diastolic 60–72
[2019-04-11] MEDS: ACETAMINOPHEN 650MG ER TAB (TYLENOL ARTHRITIS) PO PRN ×3 (03:41→22:22)
[2019-04-11] MEDS: PERCOCET 5MG/325MG TAB PO PRN (07:44)
[2019-04-11] MEDS: LACTULOSE 20 GM/30 ML SYRUP UD PO SCH ×2 (08:37→20:05)
[2019-04-11] MEDS: HumaLOG INSULIN (NovoLOG) PER UNIT SC SCH ×4 (08:37→20:08)
[2019-04-11] MEDS: MIRALAX *UNIT DOSE* 17GM PACKET PO SCH ×2 (08:37→20:07)
[2019-04-11] MEDS: levETIRAcetam **XR** 500 MG TABLET PO SCH ×2 (08:37→20:05)
[2019-04-11] MEDS: COLCHICINE 0.6 MG TAB PO SCH (08:37)
[2019-04-11] MEDS: SPIRONOLACTONE 25 MG TAB PO SCH (08:38)
[2019-04-11] MEDS: DULoxetine 30 MG CAP (CYMBALTA) PO SCH ×2 (08:38→20:06)
[2019-04-11] MEDS: predniSONE 10 MG TAB PO SCH (08:38)
[2019-04-11] MEDS: PREGABALIN 75 MG CAP(LYRICA) PO SCH ×2 (08:38→20:06)
[2019-04-11] MEDS: CALCITRIOL 0.25 MCG CAP (S0169) PO SCH (08:38)
[2019-04-11] MEDS: allopurinoL 300 MG TAB PO SCH (08:38)
[2019-04-11] MEDS: atenoloL 25 MG TAB PO SCH ×2 (08:38→20:06)
[2019-04-11] MEDS: APIXABAN 5 MG TAB (ELIQUIS) PO SCH ×2 (08:39→20:05)
[2019-04-11] MEDS: SUCRALFATE 1 GM TAB PO SCH ×2 (08:39→20:06)
[2019-04-11] MEDS: OMEPRAZOLE 20 MG CAP PO SCH ×2 (08:39→20:06)
[2019-04-11] MEDS: LACTIC ACID 12% LOTION 225 GM BTL TOP SCH ×2 (08:39→20:09)
[2019-04-11] MEDS: DOCUSATE SODIUM 100 MG CAP PO SCH ×2 (08:39→20:06)
--- NOTE | 2019-04-11 12:18 | IPNPDOC ---
Subjective Date Seen The patient was seen on 04/11/19. Subjective Chief Complaint/HPI Patient comfortable offers no new complaints at the present time General: Denies: ROS Unobtainable, Chills, Night Sweats, Fatigue, Malaise, Normal Appetite, Other Symptoms Pulmonary: Denies: Dyspnea, Cough, Pleuritic Chest Pain, Other Symptoms Cardiovascular: Denies: Chest Pain, Palpitations, Orthopnea, Paroxysmal Noc. Dyspnea, Edema, Lt Headedness, Other Symptoms Gastrointestinal: Denies: Nausea, Vomiting, Abdominal Pain, Diarrhea, Constipation, Melena, Hematochezia, Other Symptoms Musculoskeletal: Denies: Neck Pain, Back Pain, Shoulder Pain, Arm Pain, Hand Pain, Leg Pain, Foot Pain, Joint Pain, Muscle Pain, Spasms, Other Symptoms Neurological: Denies: Weakness, Numbness, Incoordination, Change in speech, Confusion, Seizures, Other Symptoms Objective Physical Examination General Exam: Positive: Alert Eye Exam: Positive: PERRLA, Conjunctiva & lids normal Chest Exam: Positive: Clear to auscultation, Normal air movement Heart Exam: Positive: Rate Normal, Normal S1, Normal S2 Abdomen Exam: Positive: Normal bowel sounds, Soft Extremity Exam: Positive: Normal pulses Skin Exam: Positive: Nl turgor and temperature Neuro Exam: Positive: Strength at 5/5 X4 ext, Cranial Nerves 3-12 NL Assessment /Plan Problems (1) CHF exacerbation Status: Acute Problem Text: Treated adequately with IV Lasix and subsequent torsemide. Patient had a substantial response diuretics, which was unexpected, given her home dose of torsemide 100 mg daily. Patient with worsening renal function, likely from over diuresis, will provide gentle IV hydration for total of 500 mL's. Will monitor renal functions in a.m. Possible discharge in a.m. if the renal functions are improving (2) Acute kidney injury superimposed on CKD Status: Acute Problem Text: BUN is 56, creatinine 2.0 Arnulfo levels in a.m. Was likely secondary to diuresis Patient did receive gentle hydration (3) HTN (hypertension) Status: Chronic Problem Text: Continue home meds (4) COPD exacerbation Status: Acute Problem Text: Continue home meds (5) Diabetes Status: Chronic Problem Text: Continue Levemir to 110 units at bedtime, sliding scale insulin before meals and at bedtime. Will adjust insulin based on patient's needs. Plan/VTE VTE Prophylaxis Ordered?: Yes VS, I&O, 24H, Fishbone Vital Signs/I&O Vital Signs Date Time Temp Pulse Resp B/P (MAP) Pulse Ox O2 Delivery O2 Flow Rate FiO2 04/11/19 12:00 2.0 04/11/19 11:48 97.0 60 18 147/72 (97) 100 Nasal Cannula I&O- Last 24 Hours up to 6 AM 04/11/19 05:59 Intake Total 1980 ml Output Total 2650 ml Balance -670 ml Laboratory Data 24H LABS Laboratory Tests 2 04/10/19 17:22: Bedside Glucose (Misc Panel) 458H 04/10/19 20:22: Bedside Glucose (Misc Panel) 469H 04/10/19 23:30: Bedside Glucose (Misc Panel) 448H 04/11/19 08:34: Bedside Glucose (Misc Panel) 289H 04/11/19 11:54: Bedside Glucose (Misc Panel) 279H Microbiology Microbiology 04/06/19 Blood Culture - Preliminary, Resulted No Growth after 72 hours. All specime... 04/06/19 Respiratory Virus Panel (PCR) ([facility]) - Final, Complete 04/06/19 Blood Culture - Preliminary, Resulted No Growth after 72 hours. All specime... KAVYA STOVALL MD Apr 11, 2019 12:17
[2019-04-11] MEDS: IRON SUCROSE 100 MG in NS 100 ML OVER 1 HR IV SCH (13:55)
[2019-04-11] MEDS ORDERED: ALTEPLASE 2 MG/2 ML VIAL (J2997 PER 1MG) XX ONE (18:00)
[2019-04-11 18:40] LABS: APPEARANCE, URINE CLOUDY (CLEAR); BACTERIA, URINE AUTO 3+ (NEGATIVE); BILIRUBIN, URINE AUTO NEGATIVE (NEGATIVE); BLOOD, URINE BLOOD 1+ (NEGATIVE); COLOR, URINE YELLOW (YELLOW); GLUCOSE, URINE (UA) AUTO 3+ mg/dL (NEGATIVE); KETONE, URINE AUTO NEGATIVE (NEGATIVE); LEUKOCYTE ESTERASE, URINE AUTO 3+ (NEGATIVE); NITRITE, URINE AUTO NEGATIVE (NEGATIVE); PROTEIN, URINE AUTO NEGATIVE (NEGATIVE); RBC, URINE AUTO 30 /HPF (0-3); SPECIFIC GRAVITY URINE AUTO 1.012 (1.002-1.035); SQUAMOUS EPITHELIAL CELL UR AU 0 /HPF (0-6); UROBILINOGEN, URINE AUTO 0.2 mg/dL (0.0-2.0); WBC, URINE AUTO 14 /HPF (0-3)
[2019-04-11] MEDS ORDERED: HumaLOG INSULIN (NovoLOG) PER UNIT SC ONE (20:00)
[2019-04-11] MEDS: LEVEMIR (INSULIN DETEMIR) 1 UNITS/0.01ML SC SCH (20:05)
[2019-04-11] MEDS: NORTRIPTYLINE 10 MG CAP PO SCH (20:05)
[2019-04-11] MEDS: rOPINIRole 2MG TAB PO SCH (20:05)
[2019-04-11] MEDS: ATORVASTATIN 10 MG TAB PO SCH (20:06)
[2019-04-11] MEDS: BETAMETHASONE VAL 0.1% OINT 15 GM TOP SCH (20:08)
[2019-04-12 04:00] VITALS: BP 137/67
[2019-04-12 07:49] VITALS: BP 137/65
[2019-04-12] MEDS: levETIRAcetam **XR** 500 MG TABLET PO SCH (08:59)
[2019-04-12] MEDS: predniSONE 10 MG TAB PO SCH (08:59)
[2019-04-12] MEDS: SPIRONOLACTONE 25 MG TAB PO SCH (08:59)
[2019-04-12] MEDS: DULoxetine 30 MG CAP (CYMBALTA) PO SCH (08:59)
[2019-04-12] MEDS: COLCHICINE 0.6 MG TAB PO SCH (08:59)
[2019-04-12] MEDS: OMEPRAZOLE 20 MG CAP PO SCH (09:00)
[2019-04-12] MEDS: PREGABALIN 75 MG CAP(LYRICA) PO SCH (09:00)
[2019-04-12] MEDS: SUCRALFATE 1 GM TAB PO SCH (09:00)
[2019-04-12] MEDS: DOCUSATE SODIUM 100 MG CAP PO SCH (09:00)
[2019-04-12] MEDS: allopurinoL 300 MG TAB PO SCH (09:00)
[2019-04-12] MEDS: APIXABAN 5 MG TAB (ELIQUIS) PO SCH (09:00)
[2019-04-12] MEDS: PERCOCET 5MG/325MG TAB PO PRN (09:00)
[2019-04-12 09:01] VITALS: BP 135/69
[2019-04-12] MEDS: CALCITRIOL 0.25 MCG CAP (S0169) PO SCH (09:01)
[2019-04-12] MEDS: atenoloL 25 MG TAB PO SCH (09:01)
[2019-04-12] MEDS: HumaLOG INSULIN (NovoLOG) PER UNIT SC SCH ×2 (09:02→12:14)
[2019-04-12] MEDS: LACTULOSE 20 GM/30 ML SYRUP UD PO SCH (09:02)
[2019-04-12] MEDS: MIRALAX *UNIT DOSE* 17GM PACKET PO SCH (09:02)
[2019-04-12] MEDS: LACTIC ACID 12% LOTION 225 GM BTL TOP SCH (09:03)
[2019-04-12 09:19] LABS: HEMATOCRIT 36.6 % (36.0-47.0); HEMOGLOBIN 10.5 g/dl (12.0-15.5); MEAN CORPUSCULAR HGB CONC 28.7 g/dl (32.0-36.5); MEAN CORPUSCULAR VOLUME 87.1 fl (80.0-96.0); PLATELET COUNT, AUTOMATED 286 10^3/uL (150-450); WHITE BLOOD COUNT 16.2 10^3/uL (4.0-10.0)
[2019-04-12 09:50] LABS: BILIRUBIN,TOTAL 0.3 MG/DL (0.2-1.0); CALCIUM LEVEL 9.5 MG/DL (8.8-10.2); CREATININE FOR GFR 1.5 MG/DL (0.55-1.30); GLOMERULAR FILTRATION RATE 36.1 (>39); POTASSIUM SERUM 4.3 MEQ/L (3.5-5.1); TOTAL PROTEIN 6.7 GM/DL (6.4-8.2)
[2019-04-12 09:54] LABS: ATYPICAL LYMPH 1 % (0-5); LYMPHOCYTES 20 % (16-44); METAMYELOCYTES 1 % (0-0); MONOCYTES 3 % (0-5); MYELOCYTES 3 % (0-0); NEUTROPHILS 69 % (28-66); PROMYELOCYTES 1 % (0-0)
[2019-04-12 09:55] LABS: ANISOCYTOSIS 2+; PLATELET ESTIMATE NORMAL (NORMAL)
[2019-04-12 09:56] LABS: POLYCHROMASIA 2+
[2019-04-12] MEDS ORDERED: ALTEPLASE 2 MG/2 ML VIAL (J2997 PER 1MG) XX ONE (11:30)
--- NOTE | 2019-04-12 12:03 | IPNPDOC ---
Subjective Date Seen The patient was seen on 04/12/19. Subjective Chief Complaint/HPI Patient is a comfortable, in no distress. Offers no new complaints General: Denies: ROS Unobtainable, Chills, Night Sweats, Fatigue, Malaise, Normal Appetite, Other Symptoms Skin: Denies: Rash, Lesions, Jaundice, Bruising, Itching, Dry, Breakdown, Nail Changes, Other Pulmonary: Denies: Dyspnea, Cough, Pleuritic Chest Pain, Other Symptoms Cardiovascular: Denies: Chest Pain, Palpitations, Orthopnea, Paroxysmal Noc. Dyspnea, Edema, Lt Headedness, Other Symptoms Gastrointestinal: Denies: Nausea, Vomiting, Abdominal Pain, Diarrhea, Con stipation, Melena, Hematochezia, Other Symptoms Musculoskeletal: Denies: Neck Pain, Back Pain, Shoulder Pain, Arm Pain, Hand Pain, Leg Pain, Foot Pain, Joint Pain, Muscle Pain, Spasms, Other Symptoms Neurological: Denies: Weakness, Numbness, Incoordination, Change in speech, Confusion, Seizures, Other Symptoms Objective Physical Examination General Exam: Positive: Alert Eye Exam: Positive: PERRLA, Conjunctiva & lids normal Chest Exam: Positive: Clear to auscultation, Normal air movement Heart Exam: Positive: Rate Normal, Normal S1, Normal S2 Abdomen Exam: Positive: Normal bowel sounds, Soft Extremity Exam: Positive: Normal pulses Skin Exam: Positive: Nl turgor and temperature Neuro Exam: Positive: Strength at 5/5 X4 ext, Cranial Nerves 3-12 NL Assessment /Plan Problems (1) CHF exacerbation Status: Acute Problem Text: Treated adequately with IV Lasix and subsequent torsemide. Patient had a substantial response diuretics, which was unexpected, given her home dose of torsemide 100 mg daily. Patient with worsening renal function, likely from over diuresis, will provide gentle IV hydration for total of 500 mL's. Patient. Blood work is not done as patient's [id number] is clotted and the nursing staff was unable to draw blood from peripheral veins [id number] will be declotted today and INR And then we will order CBC, CMP today (2) Acute kidney injury superimposed on CKD Status: Acute Problem Text: Was likely secondary to diuresis Patient did receive gentle hydration Repeat levels pending (3) HTN (hypertension) Status: Chronic Problem Text: Continue home meds (4) COPD exacerbation Status: Acute Problem Text: Continue home meds (5) Diabetes Status: Chronic Problem Text: Continue Levemir to 110 units at bedtime, sliding scale insulin before meals and at bedtime. Will adjust insulin based on patient's needs. (6) Suprapubic catheter dysfunction Status: Acute Problem Text: Nursing staff was unable to change the suprapubic catheter Dr. Rivera was called. He was seen and evaluated patient today Plan/VTE VTE Prophylaxis Ordered?: Yes VS, I&O, 24H, Fishbone Vital Signs/I&O Vital Signs Date Time Temp Pulse Resp B/P (MAP) Pulse Ox O2 Delivery O2 Flow Rate FiO2 04/12/19 09:30 20 04/12/19 09:01 69 135/69 04/12/19 07:49 97.4 93 Room Air 04/12/19 04:00 2.0 I&O- Last 24 Hours up to 6 AM 04/12/19 06:00 Intake Total 1840 ml Output Total 4225 ml Balance -2385 ml Laboratory Data 24H LABS Laboratory Tests 2 04/11/19 17:29: Bedside Glucose (Misc Panel) 447H 04/11/19 18:17: Urine Color YELLOW, Urine Appearance CLOUDYH, Urine pH 5.0, Urine Specific [place] 1.012, Urine Protein NEGATIVE, Urine Glucose (Auto)(UA) 3+H, Urine Ketones (Auto) NEGATIVE, Urine Blood 1+H, Urine Nitrite NEGATIVE, Urine Bilirubin NEGATIVE, Urine Urobilinogen 0.2, Urine Leukocyte Esterase (Auto) 3+H, Urine WBC (Auto) 14H, Urine RBC (Auto) 30H, Urine Hyaline Casts (Auto) 0, Urine Bacteria (Auto) 3+H, Urine Squamous Epithelial Cells 0, Urine Yeast-Like Cells (Auto) LARGEH, Urine Sperm (Auto) 04/11/19 19:44: Bedside Glucose (Misc Panel) 493H 04/12/19 06:34: Bedside Glucose (Misc Panel) 315H 04/12/19 09:07: Immature Granulocyte % (Auto) , Nucleated Red Blood Cells % (auto) 0.3H, Neutrophils 69H, Band Neutrophils 2, Lymphocytes (Manual) 20, Monocytes (Manual) 3, Metamyelocytes 1H, Myelocytes 3H, Promyelocytes 1H, Atypical Lymphocytes 1, Polychromasia 2+, Basophilic Stippling 2+, Anisocytosis 2+, Macrocytosis 1+, Platelet Estimate NORMAL, Anion Gap 7L, Glomerular Filtration Rate 36.1L, Calcium Level 9.5, Total Bilirubin 0.3, Aspartate Amino Transf (AST/SGOT) 20, Alanine Aminotransferase (ALT/SGPT) 43, Alkaline Phosphatase 78, Total Protein 6.7, Albumin 3.0L, Albumin/Globulin Ratio 0.81L 04/12/19 11:39: CBC/BMP Laboratory Tests 04/12/19 09:07 Microbiology Microbiology 04/06/19 Blood Culture - Final, Complete NO GROWTH AFTER 5 DAYS 04/06/19 Respiratory Virus Panel (PCR) ([facility]) - Final, Complete 04/06/19 Blood Culture - Final, Complete NO GROWTH AFTER 5 DAYS KAVYA STOVALL MD Apr 12, 2019 12:03
[2019-04-12] MEDS ORDERED: PRED10TA2 PO (13:46)
--- NOTE | 2019-04-12 13:54 | DS.PDOC ---
Discharge Summary General Date of Admission Apr 06, 2019 at 18:55 Date of Discharge 04/12/19 Discharge Summary PROCEDURES PERFORMED DURING STAY: None. ADMITTING DIAGNOSES: 1. Acute on chronic respiratory failure with hypoxia, C KD, DVT, hypertension, gout. DISCHARGE DIAGNOSES: 1. Acute on chronic respiratory failure with hypoxia, chronic kidney disease, DVT, hypertension, gout, diabetes mellitus, urinary retention. COMPLICATIONS/CHIEF COMPLAINT: Chronic Resp Failure W/Hypoxia;Ckd;Dvt;Htn Gout. HISTORY OF PRESENT ILLNESS: 73-year-old female with an extensive past medical history including CHF, obstructive sleep apnea on CPAP, diabetes mellitus, hypertension, DVT, gout, seizure disorder, urinary retention status post suprapubic catheter placement, presents with worsening shortness of breath. She reports ongoing shortness of breath and cough for the past 1 month, has been treated with 3 separate courses of antibiotics and steroids, each lasting 10 days. She reports progressive worsening of symptoms despite this treatment, was advised by editor school photograph come to the emergency department due to lack of improvement. She reports progressive dyspnea on exertion, cough productive of sputum, no other associated symptoms. She denies any fever, nausea, vomiting, chest pain, abdominal pain, diarrhea, constipation, or lower extremity swelling.. HOSPITAL COURSE: Congestive heart failure, treated adequately with IV Lasix and subsequent torsemide. Patient had a substantial response diuretics, which was unexpected, given her home dose of torsemide 100 mg daily. Patient with worsening renal function, likely from over diuresis, will provide gentle IV hydration for total of 500 mL's. Patient the [id number] was clotted, so patient was sent to IR and a declotting was done and is functioning now Patient will be discharged home on all current home medications. Patient ISSA on CKD was secondary to diuresis , did receive gentle hydration and I will continue taken oral hydration . Lab with patient's PCP in one week. Continue all home meds and follow with PCP in one week Note: Patient's a suprapubic catheter was changed by Dr. Morrell and she is scheduled to be discharged and follow with him as an outpatient in 1-2 weeks ]. DISCHARGE MEDICATIONS: Please see below. ALLERGIES: Please see below. PHYSICAL EXAMINATION ON DISCHARGE: VITAL SIGNS: Please see below. GENERAL: Within normal limits HEENT: PERRLA. Extraocular muscles intact NECK: Supple CARDIOVASCULAR EXAMINATION: S1, S2, regular RESPIRATORY EXAMINATION: Clear to A&P ABDOMINAL EXAMINATION: , Soft, nontender, bowel sound present EXTREMITIES: Negative Cyanosis, edema SKIN: Normal NEUROLOGICAL EXAMINATION: . No focal motor sensory deficit PSYCHIATRIC EXAMINATION: Normal LABORATORY DATA: Please see below. IMAGING: CT chest:Impression: 1. Differential diagnosis includes pulmonary vascular congestion/interstitial edema versus bronchitis. 2. No significant effusion. 3. Evidence of prior granulomatous disease. PROGNOSIS: Good ACTIVITY: As tolerated. DIET: Regular DISCHARGE PLAN: As per discharge planning DISPOSITION: . Home DISCHARGE INSTRUCTIONS: 1. As per discharge instructions. ITEMS TO FOLLOWUP ON ON OUTPATIENT: 1. Follow with PCP in one week. DISCHARGE CONDITION: Stable. TIME SPENT ON DISCHARGE: 40 minutes. Vital Signs/I&Os Vital Signs Date Time Temp Pulse Resp B/P (MAP) Pulse Ox O2 Delivery O2 Flow Rate FiO2 04/12/19 09:30 20 04/12/19 09:01 69 135/69 04/12/19 07:49 97.4 93 Room Air 04/12/19 04:00 2.0 I&O- Last 24 Hours up to 6 AM 04/12/19 06:00 Intake Total 1840 ml Output Total 4225 ml Balance -2385 ml Laboratory Data Labs 24H Laboratory Tests 2 04/11/19 17:29: Bedside Glucose (Misc Panel) 447H 04/11/19 18:17: Urine Color YELLOW, Urine Appearance CLOUDYH, Urine pH 5.0, Urine Specific [place] 1.012, Urine Protein NEGATIVE, Urine Glucose (Auto)(UA) 3+H, Urine Ketones (Auto) NEGATIVE, Urine Blood 1+H, Urine Nitrite NEGATIVE, Urine Bilirubin NEGATIVE, Urine Urobilinogen 0.2, Urine Leukocyte Esterase (Auto) 3+H, Urine WBC (Auto) 14H, Urine RBC (Auto) 30H, Urine Hyaline Casts (Auto) 0, Urine Bacteria (Auto) 3+H, Urine Squamous Epithelial Cells 0, Urine Yeast-Like Cells (Auto) LARGEH, Urine Sperm (Auto) 04/11/19 19:44: Bedside Glucose (Misc Panel) 493H 04/12/19 06:34: Bedside Glucose (Misc Panel) 315H 04/12/19 09:07: Immature Granulocyte % (Auto) , Nucleated Red Blood Cells % (auto) 0.3H, Neutrophils 69H, Band Neutrophils 2, Lymphocytes (Manual) 20, Monocytes (Manual) 3, Metamyelocytes 1H, Myelocytes 3H, Promyelocytes 1H, Atypical Lymphocytes 1, Polychromasia 2+, Basophilic Stippling 2+, Anisocytosis 2+, Macrocytosis 1+, Platelet Estimate NORMAL, Anion Gap 7L, Glomerular Filtration Rate 36.1L, Calcium Level 9.5, Total Bilirubin 0.3, Aspartate Amino Transf (AST/SGOT) 20, Alanine Aminotransferase (ALT/SGPT) 43, Alkaline Phosphatase 78, Total Protein 6.7, Albumin 3.0L, Albumin/Globulin Ratio 0.81L 04/12/19 11:39: Bedside Glucose (Misc Panel) 188H CBC/BMP Laboratory Tests 04/12/19 09:07 FSBS Laboratory Tests Test 04/11/19 17:29 04/11/19 19:44 04/12/19 06:34 04/12/19 11:39 Range/Units Bedside Glucose (Misc Panel) 447 493 315 188 83-110 MG/DL Microbiology Microbiology 04/06/19 Blood Culture - Final, Complete NO GROWTH AFTER 5 DAYS 04/06/19 Respiratory Virus Panel (PCR) ([facility]) - Final, Complete 04/06/19 Blood Culture - Final, Complete NO GROWTH AFTER 5 DAYS Discharge Medications Scheduled Allopurinol (Zyloprim) 300 Mg Tab, 300 MG PO DAILY, (Reported) Ammonium Lactate (Ammonium Lactate) 12 % Cre, 1 DOSE TOP BID, (Reported) APPLY TO LEGS/FEET Apixaban (Eliquis) 5 Mg Tablet, 5 MG PO BID, (Reported) Atenolol (Atenolol) 25 Mg Tablet, 25 MG PO BID, (Reported) Atorvastatin Calcium (Atorvastatin Calcium) 10 Mg Tab, 10 MG PO QHS, (Reported) Betamethasone Mala (Betamethasone Valerate) 45 Gm Oint, 1 DOSE TOP QHS, (Reported) USES ON LEGS FOR HOTSPOTS Calcitriol (Calcitriol) 0.25 Mcg Cap, 0.25 MCG PO DAILY, (Reported) Colchicine (Colchicine) 0.6 Mg Tab, 0.6 MG PO DAILY, (Reported) Cyclosporine (Restasis) 0.05 % Emu, 1 DROP OU BID, (Reported) Docusate Sodium (Docusate Sodium) 100 Mg Cap, 100 MG PO BID, (Reported) Duloxetine Hcl (Cymbalta) 60 Mg Capsule.dr, 60 MG PO BID, (Reported) Ergocalciferol (Vitamin D2) (Vitamin D2) 50,000 Units Cap, 50,000 UNITS PO QMON TH, (Reported) 1ST OF EVERY MONTH Fluticasone Furoate (Arnuity Ellipta) 100 Mcg Blst.w.dev, 1 PUFF INH QHS, (Reported) Insulin Degludec (Tresiba Flextouch U-100) 100 Unit/Ml Inj, 100 UNIT SC DAILY, (Reported) TAKES BEFORE BREAKFAST Insulin Human Lispro (Humalog) 1 Units/0.01 Ml Inj, 1 DOSE SC AC, (Reported) PER SLIDING SCALE < 70: TREAT LBS WITH 15 G CARBS 70 -90: 46, 46, 46 91-130: 52, 52, 52, 8 FOR NIGHT SNACK 131-150: 56, 56, 56, 10 FOR NIGHT SNACK 151-200: 60, 60, 60, 12 FOR NIGHT SNACK, 4 UNITS NPO 201-250: 66, 66, 66, 14 FOR NIGHT SNACK, 6 UNITS NPO 251-300: 72, 72, 72, 16 FOR NIGHT SNACK, 8 UNITS NPO 301-350: 78, 78, 78, 18 FOR NIGHT SNACK, 10 UNITS NPO 351-400: 82, 82, 82, 20 FOR NIGHT SNACK, 14 UNITS NPO 401-450: 86, 86, 86, 22 FOR NIGHT SNACK, 18 UNITS NPO > 450: 90, 90, 90, 24 FOR NIGHT SNACK, 22 UNITS NPO Lactulose (Lactulose) 10 Gm/15 Ml Solution, 30 ML PO BID, (Reported) Levetiracetam (Levetiracetam ER) 500 Mg Lindsay, 500 MG PO BID, (Reported) Levofloxacin (Levaquin) 500 Mg Tablet, 500 MG PO DAILY, (Reported) FILLED 04/05/19 FOR 7 DAYS Nortriptyline HCl (Nortriptyline HCl) 10 Mg Capsule, 10 MG PO QHS, (Reported) Omeprazole (Omeprazole) 20 Mg Cap, 20 MG PO BID, (Reported) Oseltamivir Phosphate (Tamiflu) 75 Mg Capsule, 75 MG PO QHS, (Reported) FILLED 03/30/19 FOR 10 DAYS - 2 DAYS LEFT Polyethylene Glycol 3350 (Miralax) 119 Gm Powder, 17 GM PO BID, (Reported) Prednisone (Prednisone) 20 Mg Tablet, 20 MG PO BID, (Reported) FILLED 04/05/19 FOR 5 DAYS Prednisone (Prednisone) 10 Mg Tablet, 30 MG PO DAILY Ropinirole HCl (Ropinirole HCl) 2 Mg Tablet, 2 MG PO QHS, (Reported) Spironolactone (Spironolactone) 25 Mg Tablet, 25 MG PO DAILY, (Reported) Sucralfate (Sucralfate) 1 Gm Tab, 1 GM PO BID, (Reported) Torsemide (Torsemide) 100 Mg Tablet, 100 MG PO DAILY, (Reported) Triamcinolone Acet (Triamcinolone Acetonide 0.025% Crm) 1 Dose/80 Gm Cream, 1 DOSE TOP BID, (Reported) APPLIES ON THIGHS Scheduled PRN Acetaminophen (Tylenol Arthritis) 650 Mg Tab, 650 MG PO Q8H PRN for PAIN, (Reported) Albuterol Sulf (Albuterol Sulfate) 2.5 Mg/3 Ml Nebu, 2.5 MG INH Q4H PRN for SHORTNESS OF BREATH, (Reported) Halobetasol Propionate (Halobetasol Propionate) 0.05 % Cre, 1 DOSE TOP for RASH, (Reported) APPLIES UNDER FOLDS AND BREASTS Magnesium Hydroxide (Milk of Magnesia) 400 Mg/5 Ml Oral.susp, 30 ML PO DAILY PRN for CONSTIPATION, (Reported) Nystatin (Nystatin) 100,000 Unit/Gm Cre, 1 DOSE TOP BID PRN for RASH, (Reported) UNDER BREASTS AND GROIN AREA Nystatin (Nystatin Oint) 30 Gm Oint, 1 DOSE TOP TID PRN for RASH, (Reported) APPLIES AROUND VAGINAL AREA Ondansetron HCl (Ondansetron HCl) 4 Mg Tab, 4 MG PO QID PRN for NAUSEA OR VOMITING, (Reported) Oxycodone HCl/Acetaminophen (Oxycodone-Acetaminophen 5-325) 1 Each Tablet, 1 TAB PO Q8H PRN for PAIN, (Reported) Phenylephrine HCl/[place] Butter (Preparation H Suppository) 1 Each Supp.rect, 1 SUP ME QID PRN for HEMORRHOIDS, (Reported) Allergies Coded Allergies: Cephalosporins (Verified Allergy, Intermediate, hives, 07/14/18) Penicillins (Verified Allergy, Intermediate, hives, 07/14/18) Sulfa (Sulfonamide Antibiotics) (Verified Allergy, Intermediate, hives, 07/14/18) chlorpromazine (Verified Allergy, Intermediate, hiives, 07/14/18) loratadine (Verified Allergy, Intermediate, hives, 07/14/18) pentazocine (Verified Allergy, Intermediate, hives, 07/14/18) TAPE (Verified Allergy, Unknown, band-aids, 07/14/18) methadone (Verified Allergy, Unknown, 09/25/18) HAS HAD DILAUDID AND DEMEROL IN THE PAST KAVYA STOVALL MD Apr 12, 2019 13:54
[2019-04-12] MEDS: SODIUM CHLORIDE 0.9% INJ 10 ML SYR IV PRN (14:38)
[2019-04-12] MEDS ORDERED: LYRI75CA PO (14:56)
--- NOTE | 2019-04-12 16:04 | SMCUROLCON ---
Urology Consultation General Date of Consultation 04/12/19 Reason For Consultation This patient is seen for Chronic Resp Failure W/Hypoxia;Ckd;Dvt;Htn Gout. History of Present Illness This is a 73 y/o F w/ recurrent UTIs and urinary retention managed w/ a SP catheter, admitted to the hospital a few days ago for a CHF exacerbation. Since being in the hospital she was found to have drainage around her SP catheter. We have been asked to come and evaluate her. Her last SP catheter change was in office on 03/15/19. She notes that the SP catheter has been draining well, but frequently gets coated w/ debris. She has been limited on the amount of water that she can drink. They were taught previously how to flush the catheter w/ NS, but this has not been done yet. Of note, prior to my arrival to see the patient her nurse had attempted to remove her SP catheter and change it. Due to resistance pulling the catheter all the way out, she stopped and did not change the catheter. Past Medical History Medical History urinary retention, recurrent UTI, HTN, GERD, seizures, cataracts, DVTs, DM2, asthma, CKD, CHF Surgical Hstory Hysterectomy Age 22 L4 -5 diskectomy R-BRADY 2013 hiatal hernia repair Left ankle fx- fusion right hip replacement basal cell carcinoma removed from face left eye cysts removed open cystotomy with suprapubic catheter placement 07/28/2018 Medications Current Medications Current Medications Medications (Trade) Dose Ordered Sig/Rupali Route PRN Reason Start Time Stop Time Status Last Admin Dose Admin Acetaminophen (Tylenol Arthritis Er) 650 mg Q8H PRN PO PAIN 04/06/19 19:00 04/12/19 15:34 DC 04/11/19 22:22 Albuterol Sulfate (Proventil Neb) 2.5 mg Q4H PRN INH SHORTNESS OF BREATH 04/06/19 19:00 04/12/19 15:34 DC 04/10/19 08:52 Albuterol/ Ipratropium (Duoneb (Ipr 0.5mg/Alb 2.5mg)) 3 ml Q20M PRN NEB SHORTNESS OF BREATH 04/06/19 15:15 04/06/19 20:35 DC 04/06/19 20:35 Allopurinol (Zyloprim) 300 mg DAILY PO 04/07/19 09:00 04/12/19 15:34 DC 04/12/19 09:00 Apixaban (Eliquis) 5 mg BID PO 04/06/19 21:00 04/12/19 15:34 DC 04/12/19 09:00 Atenolol (Tenormin) 25 mg BID PO 04/06/19 21:00 04/12/19 15:34 DC 04/12/19 09:01 Atorvastatin Calcium (Lipitor) 10 mg QHS PO 04/06/19 21:00 04/12/19 15:34 DC 04/11/19 20:06 Betamethasone Valerate (Valisone) ON LEGS QHS TOP 04/06/19 21:00 04/12/19 15:34 DC 04/11/19 20:08 Calcitriol (Rocaltrol) 0.25 mcg DAILY PO 04/07/19 09:00 04/12/19 15:34 DC 04/12/19 09:01 Colchicine (Colcrys) 0.6 mg DAILY PO 04/07/19 09:00 04/12/19 15:34 DC 04/12/19 08:59 Dextrose (Dextrose 50%) 25 ml ASDIRECTED PRN IV SEE LABEL COMMENTS 04/06/19 19:00 04/12/19 15:34 DC Docusate Sodium (Colace) 100 mg BID PO 04/06/19 21:00 04/12/19 15:34 DC 04/12/19 09:00 Duloxetine HCl (Cymbalta) 60 mg BID PO 04/06/19 21:00 04/12/19 15:34 DC 04/12/19 08:59 Furosemide (LASIX injection) 40 mg Q6H IV 04/07/19 00:00 04/07/19 12:31 DC 04/07/19 06:06 Furosemide (LASIX injection) 40 mg Q6H IV 04/07/19 21:00 04/06/19 19:34 DC Glucagon (Glucagon) 1 mg ASDIRECTED PRN SC SEE LABEL COMMENTS 04/06/19 19:00 04/12/19 15:34 DC Glucose (Glucose) 16 GM ASDIRECTED PRN PO SEE LABEL COMMENTS 04/06/19 19:00 04/12/19 15:34 DC Heparin Sodium (Heparin (Flush)) 500 units ASDIRECTED PRN IV SEE LABEL COMMENTS 04/06/19 15:30 04/12/19 15:34 DC 04/12/19 14:37 Home Med (Med Rec Complete!) ASDIRECTED XX 04/06/19 19:00 04/06/19 18:51 DC [facility] 04/07/[facility] 21:00 04/07/19 02:37 DC Insulin Detemir ([facility]mir [facility]ulin) [facility] 04/06/19 21:00 04/07/19 20:13 DC 04/06/19 23:27 Insulin Detemir (Levemir Insulin) [facility] 04/07/19 21:00 04/07/19 20:18 DC Insulin Detemir (Levemir Insulin) [facility] 04/07/19 21:00 04/09/19 07:04 DC 04/08/19 21:09 Insulin Detemir (Levemir Insulin) [facility] 04/09/19 21:00 04/12/19 15:34 DC 04/11/19 20:05 Insulin Human Lispro (HumaLOG INSULIN) SEE PROTOCOL TABLE [facility] 04/07/19 07:30 04/09/19 07:04 DC 04/08/19 17:12 Insulin Human Lispro (HumaLOG INSULIN) SEE PROTOCOL TABLE [facility] 04/09/19 07:30 04/12/19 15:34 DC 04/12/19 12:14 Insulin Human Lispro (HumaLOG INSULIN) [facility]OCOL [facility] 04/06/19 21:00 04/09/19 07:04 DC 04/08/19 22:37 Insulin Human Lispro (HumaLOG INSULIN) [facility]OCOL [facility] 04/09/19 21:00 04/12/19 15:34 DC 04/10/19 21:06 Insulin Human Regular (HumuLIN R INSULIN) 10 units STAT STAT IV 04/07/19 07:58 04/07/19 07:59 DC 04/07/19 08:28 Insulin Human Regular (HumuLIN R INSULIN) 10 units STAT STAT IV 04/08/19 18:37 04/08/19 18:38 DC 04/08/19 18:55 Insulin Human Regular (HumuLIN R INSULIN) 10 units STAT STAT IV 04/09/19 10:58 04/09/19 11:00 DC 04/09/19 11:45 Insulin Human Regular (HumuLIN R INSULIN) 12 units STAT STAT IV 04/07/19 18:30 04/07/19 18:33 DC 04/07/19 18:44 Insulin Human Regular (HumuLIN R INSULIN) 15 units STAT STAT IV 04/08/19 08:34 04/08/19 08:35 DC 04/08/19 09:24 Insulin Human Regular (HumuLIN R INSULIN) 20 units STAT STAT IV 04/09/19 08:54 04/09/19 08:55 DC 04/09/19 09:45 Insulin Human Regular 100 units/ Sodium Chloride 100 ml @ 10 mls/hr Q10H IV 04/09/19 13:00 04/09/19 17:07 DC 04/09/19 12:14 Iron (Venofer) 100 mg DAILY IV 04/07/19 13:00 UNV Iron 100 mg/ Sodium Chloride 105 ml @ 105 mls/hr Q24H IV 04/07/19 14:00 04/11/19 14:59 DC 04/11/19 13:55 Lactic Acid (Lac-Hydrin 12% Lotion) TO LEGS/ FEET BID TOP 04/06/19 21:00 04/12/19 15:34 DC 04/12/19 09:03 Lactulose (Cephulac) 30 ml BID PO 04/07/19 21:00 04/12/19 15:34 DC 04/12/19 09:02 Levetiracetam (Keppra Xr) 500 mg BID PO 04/06/19 21:00 04/12/19 15:34 DC 04/12/19 08:59 Magnesium Hydroxide (Milk Of Magnesia) 30 ml DAILY PRN PO CONSTIPATION 04/06/19 19:00 04/12/19 15:34 DC 04/06/19 23:41 Methylprednisolone (SOLU medrol) 40 mg BID IV 04/10/19 09:00 04/10/19 10:55 DC 04/10/19 08:22 Methylprednisolone (SOLU medrol) 40 mg Q8H IV 04/07/19 20:00 04/09/19 16:22 DC 04/09/19 03:42 Morphine Sulfate (Morphine Sulfate Inj) 2 mg Q6H PRN IV Pain 7-10 04/07/19 18:30 04/12/19 15:34 DC Nortriptyline HCl (Pamelor) 10 mg QHS PO 04/06/19 21:00 04/12/19 15:34 DC 04/11/19 20:05 Nystatin (Mycostatin) UNDER BREASTS AND GR... BID PRN TOP RASH 04/06/19 19:00 04/12/19 15:34 DC Omeprazole (PriLOSEC) 20 mg BID PO 04/06/19 21:00 04/12/19 15:34 DC 04/12/19 09:00 Ondansetron HCl (Zofran) 4 mg QID PRN PO NAUSEA OR VOMITING 04/06/19 19:00 04/12/19 15:34 DC Oxycodone/ Acetaminophen (Percocet 5mg/ 325mg Tablet) 1 tab Q8H PRN PO PAIN 04/06/19 19:00 04/12/19 15:34 DC 04/12/19 09:00 Phenylephrine HCl (Preparation H Supp) 1 sup QID PRN DC HEMORRHOIDS 04/07/19 18:45 04/12/19 15:34 DC Polyethylene Glycol (Miralax) 1 pkt BID PO 04/07/19 21:00 04/12/19 15:34 DC 04/12/19 09:02 Prednisone (Deltasone) 20 mg BID PO 04/06/19 21:00 04/07/19 18:33 DC 04/07/19 08:29 Prednisone (Deltasone) 30 mg DAILY PO 04/11/19 09:00 04/12/19 15:34 DC 04/12/19 08:59 Pregabalin (Lyrica) 150 mg BID PO 04/06/19 21:00 04/12/19 15:34 DC 04/12/19 09:00 Ropinirole HCl (Requip) 2 mg QHS PO 04/06/19 21:00 04/12/19 15:34 DC 04/11/19 20:05 Sodium Chloride 500 ml @ 50 mls/hr Q10H IV 04/10/19 08:00 04/10/19 17:59 DC 04/10/19 08:21 Sodium Chloride (Saline Lock Flush) 10 ml ASDIRECTED PRN IV SEE LABEL COMMENTS 04/06/19 15:30 04/12/19 15:34 DC 04/12/19 14:38 Spironolactone (Aldactone) 25 mg DAILY PO 04/07/19 09:00 04/12/19 15:34 DC 04/12/19 08:59 Sucralfate (Carafate) 1 gm BID PO 04/06/19 21:00 04/12/19 15:34 DC 04/12/19 09:00 Torsemide (Demadex) 100 mg DAILY PO 04/09/19 09:00 04/09/19 15:26 DC 04/09/19 08:11 Allergies Allergies: Coded Allergies: Cephalosporins (Verified Allergy, Intermediate, hives, 07/14/18) Penicillins (Verified Allergy, Intermediate, hives, 07/14/18) Sulfa (Sulfonamide Antibiotics) (Verified Allergy, Intermediate, hives, 07/14/18) chlorpromazine (Verified Allergy, Intermediate, hiives, 07/14/18) loratadine (Verified Allergy, Intermediate, hives, 07/14/18) pentazocine (Verified Allergy, Intermediate, hives, 07/14/18) TAPE (Verified Allergy, Unknown, band-aids, 07/14/18) methadone (Verified Allergy, Unknown, 09/25/18) HAS HAD DILAUDID AND DEMEROL IN THE PAST Review of Systems Constitutional: Denies: Fever, Chills Pulmonary: Denies: Dyspnea, Cough Cardiovascular: Denies Chest Pain, Denies Palpitations Gastrointestinal: Denies: Nausea, Vomiting, Abdominal Pain Genitourinary: Reports: Retention Musculoskeletal: Denies: Neck Pain, Back Pain Psych: Reports: Mood Normal Physical Examination General Exam: Alert, Cooperative Chest Exam: Normal air movement Heart Exam: Rate Normal Abdomen Exam: Soft, Other (SP catheter completely out; no erythema at SP catheter site) Vital Signs/I&O Vital Signs Date Time Temp Pulse Resp B/P (MAP) Pulse Ox O2 Delivery O2 Flow Rate FiO2 04/12/19 09:30 20 04/12/19 09:01 69 135/69 04/12/19 07:49 97.4 93 Room Air 04/12/19 04:00 2.0 I&O- Last 24 Hours up to 6 AM 04/12/19 05:59 Intake Total 1840 ml Output Total 4225 ml Balance -2385 ml Laboratory Data 24H Labs Laboratory Tests 2 04/11/19 17:29: Bedside Glucose (Misc Panel) 447H 04/11/19 18:17: Urine Color YELLOW, Urine Appearance CLOUDYH, Urine pH 5.0, Urine Specific Hunters 1.012, Urine Protein NEGATIVE, Urine Glucose (Auto)(UA) 3+H, Urine Ketones (Auto) NEGATIVE, Urine Blood 1+H, Urine Nitrite NEGATIVE, Urine Bilirubin NEGATIVE, Urine Urobilinogen 0.2, Urine Leukocyte Esterase (Auto) 3+H, Urine WBC (Auto) 14H, Urine RBC (Auto) 30H, Urine Hyaline Casts (Auto) 0, Urine Bacteria (Auto) 3+H, Urine Squamous Epithelial Cells 0, Urine Yeast-Like Cells (Auto) LARGEH, Urine Sperm (Auto) 04/11/19 19:44: Bedside Glucose (Misc Panel) 493H 04/12/19 06:34: Bedside Glucose (Misc Panel) 315H 04/12/19 09:07: Immature Granulocyte % (Auto) , Nucleated Red Blood Cells % (auto) 0.3H, Neutrophils 69H, Band Neutrophils 2, Lymphocytes (Manual) 20, Monocytes (Manual) 3, Metamyelocytes 1H, Myelocytes 3H, Promyelocytes 1H, Atypical Lymphocytes 1, Polychromasia 2+, Basophilic Stippling 2+, Anisocytosis 2+, Macrocytosis 1+, Platelet Estimate NORMAL, Anion Gap 7L, Glomerular Filtration Rate 36.1L, Calcium Level 9.5, Total Bilirubin 0.3, Aspartate Amino Transf (AST/SGOT) 20, A lanine Aminotransferase (ALT/SGPT) 43, Alkaline Phosphatase 78, Total Protein 6.7, Albumin 3.0L, Albumin/Globulin Ratio 0.81L 04/12/19 11:39: Bedside Glucose (Misc Panel) 188H CBC/BMP Laboratory Tests 04/12/19 09:07 Microbiology Microbiology 04/06/19 Blood Culture - Final, Complete NO GROWTH AFTER 5 DAYS 04/06/19 Respiratory Virus Panel (PCR) (GORDY) - Final, Complete 04/06/19 Blood Culture - Final, Complete NO GROWTH AFTER 5 DAYS Assessment This is a 73 y/o F w/ recurrent UTIs and urinary retention managed w/ a SP catheter, admitted to the hospital a few days ago for a CHF exacerbation. Small amounts of exudate at the SP catheter site is normal as long as there is no associated cellulitis. There is no erythema or tenderness on exam. I changed her SP catheter to a new 20Fr SP catheter and put 7cc of sterile water in the balloon. To help decrease the amount of debris that builds up in and might clog the catheter, I recommended that she start irrigating the catheter w/ 60cc of NS 3 times a week. The patient noted understanding. Plan - no treatment needed for the exudate around the SP catheter as there is no sign of cellulitis - SP catheter changed to a new 20Fr today - patient advised to flush the catheter 3 times per wk w/ 60cc of NS - plan f/u in my office in 1 month for next SP catheter change KIN MERCER MD Apr 12, 2019 16:04
== END 2019-04-12 15:32 | disposition home health service (06) | DRG 291 ==
LOC: M ED 14:14 → M ED INP 18:55 → ENRESERVDT 20:36 → ENRESERVTM 20:36 → M PCU 21:40
PROVIDERS: ADMIT Internal Medicine; ATTEND Internal Medicine
DX: I13.0 Hypertensive heart and chronic kidney disease with heart failure and stage 1 through stage 4 chronic kidney disease, or unspecified chronic kidney disease (principal); I50.33 Acute on chronic diastolic (congestive) heart failure; J96.21 Acute and chronic respiratory failure with hypoxia; N17.9 Acute kidney failure, unspecified; J44.1 Chronic obstructive pulmonary disease with (acute) exacerbation; E11.9 Type 2 diabetes mellitus without complications; N18.3 Chronic kidney disease, stage 3 (moderate); M10.9 Gout, unspecified; G47.33 Obstructive sleep apnea (adult) (pediatric); G40.909 Epilepsy, unspecified, not intractable, without status epilepticus; Z79.899 Other long term (current) drug therapy; Z79.4 Long term (current) use of insulin; Z88.0 Allergy status to penicillin; Z88.8 Allergy status to other drugs, medicaments and biological substances; Z88.2 Allergy status to sulfonamides; Z86.718 Personal history of other venous thrombosis and embolism; E66.01 Morbid (severe) obesity due to excess calories; Z68.35 Body mass index [BMI] 35.0-35.9, adult

== ENCOUNTER → 2019-04-16 | Outpatient (REF) | payer MEDICARE, MEDICAID ==
[~2019-04-16] MED LIST changes: +ARNU1INH INH; +BISO5TAB14 PO; -BISO5TAB9 PO; +LEVA1TAB2 PO; +NORT10CA2 PO; -OMEP-172 PO; +OMEP1CAP73 PO; +ONDA-83 PO; -ONDA4TAB5 PO; +OSEL75CA PO; -OXYB10TA2 PO; +OXYB10TA23 PO; +PRED20TA PO; +PREP1SUP2 PR
[2019-04-16 18:50] LABS: PERCENT SATURATION 8.5 % (13.2-45.0)
== END ==
LOC: M LAB REF 16:52
PROVIDERS: ATTEND Internal Medicine
DX: D50.9 Iron deficiency anemia, unspecified (principal)

== ENCOUNTER → 2019-05-15 | Outpatient (CLI) | payer MEDICARE, MEDICAID ==
[~2019-05-15] MED LIST changes: -ROPI1TAB PO; +ROPI1TAB3 PO; -ROPI2TAB PO; +ROPI2TAB3 PO
--- NOTE | 2019-05-16 01:29 | ECWPNPC ---
PATIENT NAME: SHIVANI PAYNE I : 1945 GENDER: FEMALE VISIT DATE: 05/15/2019 DISCHARGE DATE: 05/15/19 1022 VISIT LOCKED DATE TIME: PHYSICIAN: CHERIE AMATO RESOURCE: CHERIE AMATO REASON FOR APPOINTMENT 1. CHRONIC PAIN HISTORY OF PRESENT ILLNESS HISTORY OF PRESENT ILLNESS: HERE FOR F/U OF CHRONIC GENERALIZED BODY PAIN.WAS NOT ABLE TO TOLERATE NUCYNTA AND STATES SHE GOT A RASH.SHE HAS BEEN TRIALED ON MULTIPLE MEDICATIONS BOTH NARCOTIC AND NON NARCOTIC AND HAS HAD SIDE EFFECTS WITH ALL EXCEPT OXYCODONE.RATING PAIN VAS 10/10.HAS HX OF MULTIPLE HOSPITALIZATIONS MOST RECENT DUE TO CHF.BROKE BOTH WRISTS END OF NOVEMBER AFTER FALL INJURY AT HOME AND IS FOLLOWING WITH [facility].REPORTS FALLING AT HOME 1 WEEK AGO WITH REPORTS OF INCREASE IN GENERALIZED PAIN.COMPLAINING OF SOB AND FATIGUE.FOLLOWING WITH [facility] AFTER FALL AND FOR PERSISTENT BILAT WRIST PAIN AND LEFT SHOULDER PAIN. PAIN THE PATIENT DESCRIBES THE PAIN... FALL RISK SCREENING: SCREENING :NO FALLS REPORTED IN THE LAST YEAR CURRENT MEDICATIONS TAKING CLOTRIMAZOLE 1 % CREAM 1 APPLICATION EXTERNALLY TWICE A DAY TAKING LEVAQUIN LEVA-MICHELLE TAKING ONDANSETRON 4 MG TABLET DISPERSIBLE 1 TABLET ON TONGUE ORALLY TWICE DAILY TAKING OMEPRAZOLE 20 MG CAPSULE DELAYED RELEASE 1 CAPSULE ORALLY BID TAKING SCOPOLAMINE BASE 1.5 MG PATCH 72 HOUR 1 PATCH TO SKIN NEEDED TRANSDERMAL TAKING SUCRALFATE 1 GM/10ML SUSPENSION 10 ML ORALLY TWICE A DAY TAKING ALLOPURINOL 300 MG TABLET 1 TABLET ORALLY ONCE A DAY TAKING COLCHICINE 0.6 MG TABLET 1 TABLET ORALLY ONCE A DAY TAKING LACTULOSE 20 GM/30ML SOLUTION 30 ML ORALLY BID TAKING LEVETIRACETAM 500 MG TABLET 1 TABLET ORALLY TWICE A DAY TAKING OXYGEN 2 L NASAL CANNULA PRN TAKING NYSTATIN 359247 UNIT/GM CREAM 1 APPLICATION TO AFFECTED AREA EXTERNALLY TWICE A DAY TAKING CRANBERRY 500 MG CAPSULE 1 CAP(S) ORALLY THREE TIMES A DAY TAKING AMMONIUM LACTATE 12 % CREAM 1 APPLICATION TO AFFECTED AREA EXTERNALLY TWICE A DAY TAKING VITAMIN D (ERGOCALCIFEROL) 18634 UNIT CAPSULE 1 CAPSULE ORALLY MONTHLY TAKING ATORVASTATIN CALCIUM 10 MG TABLET 1 TABLET ORALLY ONCE A DAY TAKING BETAMETHASONE DIPROPIONATE 0.05 % LOTION 1 APPLICATION TO AFFECTED AREA EXTERNALLY ONCE A DAY TAKING CALCITRIOL 0.5 MCG CAPSULE 1 CAPSULE ORALLY 5 DAYS A WEEK TAKING DOCUSATE SODIUM 100 MG CAPSULE 1 CAPSULE NEEDED ORALLY ONCE A DAY TAKING DULOXETINE HCL 60 MG CAPSULE DELAYED RELEASE PARTICLES 1 CAPSULE ORALLY BID TAKING MILK OF MAGNESIA 1200 MG/15ML SUSPENSION 5 ML NEEDED ORALLY FOUR TIMES A DAY TAKING LYRICA 150 MG CAPSULE 1 CAPSULE ORALLY BID TAKING ELIQUIS 5 MG TABLET 1 CAP ORALLY BID TAKING RESTASIS 0.05 % EMULSION 1 DROP INTO AFFECTED EYE OPHTHALMIC TWICE A DAY TAKING BARD URINARY DRAINAGE BAG - MISCELLANEOUS DIRECTED MONTHLY TAKING BARD CIAYNX-M-MPM LEG BAG - MISCELLANEOUS DIRECTED MONTHLY TAKING BARD LEG BAG STRAPS/FABRIC - MISCELLANEOUS DIRECTED MONTHLY TAKING BARD URETHRAL CATHETER TRAY - KIT 20FR SILICONE CATHETER SUPRAPUBIC MONTHLY TAKING HUMALOG 100 UNIT/ML SOLUTION SLIDING SCALE SUBCUTANEOUS FOUR TIMES DAILY NEEDED TAKING TRESIBA 200 U/ML 100 UNITS SUBCUTANEOUSLY DAILY TAKING OPTIFOAM 4 PAD DIRECTED TOPICALLY DAILY TAKING SPIRONOLACTONE 25 MG TABLET 1 TABLET ORALLY BID TAKING TORSEMIDE 100 MG TABLET 1 TABLET ORALLY ONCE A DAY TAKING TYLENOL 8 HOUR ARTHRITIS PAIN 650 MG TABLET EXTENDED RELEASE 2 TABLETS NEEDED ORALLY EVERY 8 HRS TAKING ATENOLOL 25 MG 1 TAB ORAL BID TAKING ALBUTEROL SOLUTION ORAL NEB TREATMENTS QID TAKING DIFLUCAN 150 MG TABLET 1 TABLET ORALLY ONCE PER WEEK X 3 TAKING PAPER TAPE 1"X12YD - TAPE DIRECTED FOR SUPRAPUBIC CATHETER DRESSING DAILY TAKING LATEX GLOVES MEDIUM - MISCELLANEOUS DIRECTED FOR DRESSING CHANGES DAILY TAKING BABY WIPES - MISCELLANEOUS DIRECTED FOR DRESSING CHANGES DAILY TAKING CURITY GAUZE SPONGE 4"X4" PAD DIRECTED FOR DRESSING CHANGES DAILY TAKING TRANQUILITY VINYL GLOVES MED - MISCELLANEOUS DIRECTED FOR SUPRAPUBIC CATHETER DRESSING CHANGES NEEDED TAKING PERCOCET 5-325 MG TABLET 1 TABLET NEEDED ORALLY Q8H PRN MDD3 #45 TAB SHOULD LAST 30 DAYS TAKING ROPINIROLE HCL 2 MG TABLET 1 TABLET 1 TO 3 HOURS BEFORE BEDTIME ORALLY BEFORE BEDTIME NOT-TAKING PREDNISONE MEDICATION LIST REVIEWED AND RECONCILED WITH THE PATIENT PAST MEDICAL HISTORY NEUROGENIC URINARY RETENTION RECURRENT UTI HYPERTENSION INCONTIENCE,GERD MIGRAINE HX OF HEPATITIS A SEIZURES CATARACTS DVT LEFT LEG TX XARELTO CAUSED GI BLEED/ ALLYSSA FILTER ILEUS [address] TURNER EGD AND COLONOSCOPY TYPE 2 DIABETES ASTHMA KIDNEY DISEASE ARTHRITIS CHF HAS MARCAINE/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 BACK THAT AT PRESENT TIME IS TURNED DOWN TO LOWEST SETTING JUST TO KEEP OPEN PNEUMONIA BASAL CELL CARCINOMA REMOVED FOR FACE LEFT EYE CYCSTS REMOVED EBLS BILATERAL WRIST FRACTUES 11/2018 ALLERGIES PENTAZOCINE-NALOXONE: HIVES - ALLERGY CHLORPROMAZINE: HIVES - ALLERGY LORATADINE: HIVES - ALLERGY PENICILLIN (FOR ALLERGIES USE ONLY): HIVES - ALLERGY CEPHALOSPORINS: HIVES - ALLERGY SULFAMETHOXAZOLE-TMP DS: HIVES - ALLERGY NUCYNTA: RASH - ALLERGY CLARITIN: HIVES - ALLERGY SURGICAL HISTORY HYSTERECTOMY AGE 22 L4 -5 DISKECTOMY DIAPHRAGM PARALYZED- RIGHT LOWER LUNG R-BRADY 2013 HITAL HERNIA REPAIR LEFT ANKLE FX- FUSION INFUSAPORT REMOVED INFUSAPORT PLACED INFUSAPORT AND IMPLANTED PAIN PUMP RIGHT HIP REPLACEMENT BASAL CELL CARCINOMA REMOVED FROM FACE LEFT EYE CYSTS REMOVED OPEN CYSTOTOMY WITH 20FR SUPRAPUBIC CATHETER PLACEMENT 7CC BALLOON = URINARY RETENTION WT FREQ UTIS = DR. MERCER 07/28/2018 FAMILY HISTORY FATHER: 80 YRS, DUE TO HEART ATTACK, STROKES, ANEURYSM, DIAGNOSED WITH UNSPECIFIED HEART DISEASE, OTHER SPECIFIED CONDITIONS INFLUENCING HEALTH STATUS MOTHER: 59 YRS, DUE TO METASIS CANCER, LUNG AND LIVER CANCER, OTHER MALIGNANT NEOPLASM OF UNSPECIFIED SITE SON(S): ALIVE, SON: = SUICIDE AT AGE 34YRS OLD. 2 BROTHER(S) , 2 SISTER(S) - HEALTHY. 2 SON(S) - HEALTHY. SOCIAL HISTORY GENERAL: TOBACCO USE ARE YOU A:NONSMOKER HIV / HEP-C SCREENING HIV TEST OFFERED TO PATIENT:NO HEP-C TEST OFFERED TO PATIENT:NO OTHERS AT HOME: EX . EDUCATION LEVEL OF EDUCATION:HIGH SCHOOL DIET: CARBOHYDRATE CONTROLLED, NO CONCENTRATED SWEETS.. LANGUAGE LANGUAGES SPOKEN:MAURITIAN DOMESTIC VIOLENCE DO YOU FEEL SAFE IN YOUR ENVIRONMENT?YES RECREATIONAL DRUG USE DRUG USE?NO EXERCISE: NONE. LEARNING BARRIERS / SPECIAL NEEDS CHANGE FROM LAST VISIT?NO BARRIERS TO LEARNING?NO HEARING IMPAIRED?NO VISION IMPAIRED?NO COGNITIVELY IMPAIRED?NO READINESS TO LEARN?YES LEARNING PREFERENCES?NO EMOTIONAL BARRIERS?NO SPECIAL DEVICES?YES :WHEELCHAIR, BRACE MANAGER BUSINESS SYSTEMS NEEDED?NO LUNG CANCER SCREENING SMOKING STATUS:NON SMOKER PAIN CLINIC PFS, CLERGY, PUBLIC HEALTH REFERRALS PFS REFERRAL NEEDED?NO CLERGY REFERRAL NEEDED?NO PUBLIC HEALTH REFERRAL NEEDED?NO WAS THE PROVIDER NOTIFIED OF ANY PERTINENT INFO? N/A HAS THE PATIENT BEEN EDUCATED REGARDING HIS/HER PLAN OF CARE?YES HAS THE PATIENT BEEN EDUCATED REGARDING PAIN, THE RISK FOR PAIN, THE IMPORTANCE OF EFFECTIVE PAIN MANAGEMENT, AND THE PAIN ASSESSMENT PROCESS?YES LATEX QUESTIONNAIRE LATEX ALLERGY : HAVE YOU EVER DEVELOPED ANY TYPE OF REACTION AFTER HANDLING LATEX PRODUCTS SUCH RUBBER GLOVES, CONDOMS, DIAPHRAGMS, BALLOONS, SOCKS, OR UNDERWEAR?NO LATEX ALLERGY : HAVE YOU EVER DEVELOPED ANY TYPE OF REACTION DURING OR AFTER DENTAL APPOINTMENT, VAGINAL/RECTAL EXAMINATION, SURGICAL PROCEDURE, OR ANY OTHER EXPOSURE?NO DATE ASKED : 05/03/2019 LATEX RISK : HAVE YOU EVER HAD ANY DIFFICULTY BREATHING OR HIVES AFTER EATING OR HANDLING ANY FRUITS, OR VEGETABLES; SUCH KIWI, BANANAS, STONE FRUITS, OR CHESTNUTSYES - PLEASE INDICATE : KIWI LATEX RISK : DO YOU HAVE A PREVIOUS PERSONAL HISTORY OF MORE THAN NINE SURGERIES, SPINA BIFIDA, OR REPEATED CATHERIZATIONS? YES - PLEASE INDICATE : > 9 SURGERIES, REPEATED CATHETERIZATIONS SP CATHETER LATEX RISK : ARE YOU FREQUENTLY EXPOSED TO LATEX PRODUCTS IN YOUR OCCUPATION?NO CAFFEINE CAFFEINE USE?NO COFFEE ADVANCE DIRECTIVE ADVANCE DIRECTIVE DISCUSSED WITH PATIENT:YES STATES SHE HAS HCP:ELIZABETH PAYNE [phone] TAOIST [id number] GNOSTICISM MARITAL STATUS: .. ALCOHOL SCREENING DID YOU HAVE A DRINK CONTAINING ALCOHOL IN THE PAST YEAR?NO POINTS0 INTERPRETATIONNEGATIVE OCCUPATION: RETIRED. SEXUAL HX HAD SEX IN THE LAST 12 MONTHS (VAGINAL, ORAL, OR ANAL)?NO HAVE YOU EVER HAD AN STD?NO HAS MOLST FORMREVIEWED WITH PT 05/08/18 1324 BVREVIEWED WITH PT 10/16/18 1400 BVREVIEWE WITH PATIENT 01/10/19 1344 NLJ. HOSPITALIZATION/MAJOR DIAGNOSTIC PROCEDURE RELATED FOR SURGERY ADMITTED DUE TO TROUBLE BREATHING 2012 ADMITTED DUE TO CHF ADMITTED OTHER TIMES WELL DUE TO MIGRAINE, SEIZURES, AND ETC ADMITTED DUE TO COPD, CHF, BLOOD INFECTION 04/2015 ADMITTED FOR PORT PLACEMENT 06/2015 FALL 08/2015 PNEOMINA, FLU, CHF, HYPERGYLCEMIA, DEHYDRATION 05/2016 HAD TO HAVE BLOOD TRANSFUSION 04/2017 BLOOD TRANSFUSION 06/2017 SEVERE SOB, LIGHT-HEADEDNESS, CHF, DECREASED FE 08/2017 SEPSIS 04/2018 UTI 05/18/18 BLOOD TRANSFUSION/ IRON 09/2018 BLOOD TRANSFUSION/IRON 10/2018 UTI 11/2018 CHF 04/2019 REVIEW OF SYSTEMS REVIEWED BY: PROVIDER: CHERIE SPENCER . CONSTITUTIONAL: ANY CHANGE IN YOUR MEDICAL CONDITION? NO . CHILLS NO . FEVER NO . INFECTION: DO YOU HAVE NEW INFECTIONS? NO . DO YOU HAVE HISTORY OF MRSA? NO . MUSCULOSKELETAL: ANY NEW PATTERNS OF PAIN OR NUMBNESS? YES, FEET AND LEGS ARE PAINFUL . GASTROENTEROLOGY: ANY NEW CHANGE IN BOWEL CONTROL? NO . GENITOURINARY: ANY NEW CHANGE IN BLADDER CONTROL? NO . IS THERE A CHANCE YOU COULD BE ? NO . HEMATOLOGY/LYMPH: DO YOU TAKE ANY BLOOD THINNERS? (FOR EXAMPLE- COUMADIN, PLAVIX, AGGRENOX, PLATEL, PRADAXA, OR XARELTO) ELLIQUIS . WHEN WAS YOUR LAST DOSE? DATE: TIME: . NEUROLOGY: HAVE YOU FALLEN IN THE PAST 12 MONTHS? YES, FELL LAST WEEK FROM LOSS OF BALANCE PT INJURED WRISTS, WAS SEEN AT [facility], SPLINTS PLACED . ANY NEW EXTREMITY NUMBNESS OR WEAKNESS? YES, ARMS AND HANDS . CARDIOLOGY: DO YOU HAVE A PACEMAKER OR DEFIBRILLATOR? NO . RESPIRATORY: HAVE YOU BEEN SICK IN THE PAST WEEK? NO . FEVER NO . FLU LIKE SYMPTOMS? NO . COUGH NO . INTEGUMENTARY: DO YOU HAVE ANY RASHES OR OPEN SORES? NO . ALLERGIC/IMMUNO: ARE YOU ALLERGIC TO IV DYE? NO . ANY NEW ALLERGIES? NO . PSYCHIATRIC: DO YOU HAVE THOUGHTS OF HURTING YOURSELF OR SOMEONE ELSE? NO . ARE YOU ABUSED, NEGLECTED, OR IN AN UNSAFE ENVIRONMENT? NO . ENDOCRINOLOGY: ARE YOU DIABETIC? YES . OTHER: DO YOU NEED ANY PRESCRIPTIONS? NO . IF YES, PLEASE LIST: ____ . ANY NEW PROBLEMS WITH YOUR MEDICATIONS? NO . WHEN DID YOU LAST EAT? ____ . WHEN DID YOU LAST DRINK? ____ . WHAT DID YOU LAST DRINK? ____ . NAME OF PERSON DRIVING YOU HOME? ____ . DO YOU HAVE ANY OTHER QUESTIONS OR CONCERNS NO . VITAL SIGNS WT 215 LBS, HT 67 IN, BMI 33.67 INDEX, BP 100/52 MM HG, HR 81 /MIN, RR 18 /MIN, TEMP 96.7 F, OXYGEN SAT % 98%, NA INITIALS AW 0916, REVIEWED BY: EM. EXAMINATION GENERAL EXAMINATION: GENERALAWAKE,ALERT ,PLEAASANT . PSYCHAFFECT NORMAL . LUNGS:LUNG [place] ARE CLEAR TO AUSCULTATION BILATERALLY. GOOD MOVEMENT OF AIR . HEART:S1, S2 IN A REGULAR RATE AND RHYTHM. NO SIGNIFICANT MURMURS, RUBS OR GALLOPS NOTED . ASSESSMENTS CERVICALGIA - M54.2 (PRIMARY) GENERALIZED PAIN - R52 TREATMENT CERVICALGIA REFILL PERCOCET TABLET, 5-325 MG, 1 TABLET NEEDED, ORALLY, Q8H PRN MDD3 #45 TAB SHOULD LAST 30 DAYS, 30 DAYS, 45, REFILLS 0 NOTES: CURRENTLY USING OXYCODONE 5/325 1/2 TO A WHOLE TABLET UP TO TWICE A DAY WHEN NECESSARY FOR SEVERE PAIN EPISODES. THIS HAS BEEN WORKING OKAY FOR HER OVER THE YEARS. STATES SHE USUALLY TAKES A HALF A TABLET AND LAYS DOWN AND GOES TO BED ON SEVERE PAIN DAYS. PRESENTS TODAY WITH MEDICINE LEFT FROM A PRESCRIPTION ISSUED IN FEBRUARY., ISTOP REGISTRY REVIEWED AND DEMONSTRATES COMPLLIANCE. (REF # ) BRINGS IN MEDICATIONS WHICH IS APPROPRIATE FOR WHAT WAS DISPENSED. RECENT URINE TOXICOLOGY REVIEWED. NO UNAUTHORIZED MEDICATIONS. NO ILLICIT SUBSTANCES AND PRESCRIBED MEDICATIONS WERE PRESENT. URINE TOXICOLOGY TODAY. PROCEDURE CODES FA211 ESTABILISHED PATIENT [facility] FACILITY CHARGE DISPOSITION & COMMUNICATION FOLLOW UP 3 MONTHS (REASON: MED MGMNT) ELECTRONICALLY SIGNED BY TJ KELLER ON 05/15/2019 AT 11:17 AM EST DISCLAIMER : THIS IS A VISIT SUMMARY EXTRACTED FROM THE [employer] CHART. IT IS NOT A COPY OF THE [employer] PROGRESS NOTE. JOSE R
== END ==
LOC: M PAIN 09:00
PROVIDERS: ATTEND Nurse Practitioner Family
DX: M54.2 Cervicalgia (principal); G89.29 Other chronic pain; I10 Essential (primary) hypertension; K21.9 Gastro-esophageal reflux disease without esophagitis; G43.909 Migraine, unspecified, not intractable, without status migrainosus; E11.9 Type 2 diabetes mellitus without complications; J45.909 Unspecified asthma, uncomplicated; Z96.641 Presence of right artificial hip joint; Z88.0 Allergy status to penicillin; Z88.1 Allergy status to other antibiotic agents; Z88.2 Allergy status to sulfonamides; Z88.5 Allergy status to narcotic agent; Z88.8 Allergy status to other drugs, medicaments and biological substances; Z79.01 Long term (current) use of anticoagulants; Z79.4 Long term (current) use of insulin; Z79.899 Other long term (current) drug therapy

== ENCOUNTER → 2019-05-21 | Outpatient (REF) | payer MEDICARE, MEDICAID ==
[2019-05-21 18:09] LABS: BASO # 0.1 10^3/uL (0.0-0.2); BASO % 1.2 % (0.0-1.0); EOS # 0.1 10^3/uL (0.0-0.5); EOS % 1.6 % (0.0-3.0); HEMATOCRIT 29.3 % (36.0-47.0); HEMOGLOBIN 8.1 g/dl (12.0-15.5); LYMPH # 1.8 10^3/uL (1.5-5.0); LYMPH % 35.8 % (24.0-44.0); MEAN CORPUSCULAR HEMOGLOBIN 23.4 pg (27.0-33.0); MEAN CORPUSCULAR HGB CONC 27.6 g/dl (32.0-36.5); MEAN CORPUSCULAR VOLUME 84.7 fl (80.0-96.0); MONO # 0.9 10^3/uL (0.0-0.8); MONO % 17.3 % (0.0-5.0); NEUTROPHILS # 2.2 10^3/uL (1.5-8.5); NEUTROPHILS % 43.7 % (36.0-66.0); PLATELET COUNT, AUTOMATED 229 10^3/uL (150-450); RED BLOOD COUNT 3.46 10^6/uL (4.00-5.40); WHITE BLOOD COUNT 4.9 10^3/uL (4.0-10.0)
[2019-05-21 18:33] LABS: ALBUMIN 3.3 GM/DL (3.2-5.2); CALCIUM LEVEL 8.8 MG/DL (8.8-10.2); CREATININE FOR GFR 1.65 MG/DL (0.55-1.30); GLOMERULAR FILTRATION RATE 32.4 (>39); PHOSPHORUS LEVEL 3.5 MG/DL (2.5-4.9); POTASSIUM SERUM 3.8 MEQ/L (3.5-5.1); URIC ACID 4.9 MG/DL (2.6-6.0)
[2019-05-21 18:44] LABS: PTH INTACT 72.1 PG/ML (18.5-88.0)
== END ==
LOC: M LABDRWAD 09:26
PROVIDERS: ATTEND Nurse Practitioner Family
DX: N18.3 Chronic kidney disease, stage 3 (moderate) (principal); D63.1 Anemia in chronic kidney disease; E11.22 Type 2 diabetes mellitus with diabetic chronic kidney disease; M1A.30X0 Chronic gout due to renal impairment, unspecified site, without tophus (tophi)

== ENCOUNTER → 2019-05-21 | Outpatient (REF) | payer MEDICARE, MEDICAID ==
[2019-05-21 18:09] LABS: HEMATOCRIT 29.2 % (36.0-47.0); MEAN CORPUSCULAR HEMOGLOBIN 23.2 pg (27.0-33.0); MEAN CORPUSCULAR HGB CONC 27.4 g/dl (32.0-36.5); MEAN CORPUSCULAR VOLUME 84.6 fl (80.0-96.0); PLATELET COUNT, AUTOMATED 228 10^3/uL (150-450); RED BLOOD COUNT 3.45 10^6/uL (4.00-5.40)
[2019-05-21 18:34] LABS: CREATININE FOR GFR 1.68 MG/DL (0.55-1.30); GLOMERULAR FILTRATION RATE 31.7 (>39); PERCENT SATURATION 4.7 % (13.2-45.0); POTASSIUM SERUM 3.8 MEQ/L (3.5-5.1)
== END ==
LOC: M LABDRWAD 09:23
PROVIDERS: ATTEND Internal Medicine
DX: N18.4 Chronic kidney disease, stage 4 (severe) (principal)

== ENCOUNTER → 2019-05-22 | Outpatient (CLI) | payer MEDICARE, MEDICAID ==
--- NOTE | 2019-05-22 14:12 | REP ---
THREE-PHASE BONE SCAN OF THE FEET AND ANKLES: HISTORY: Pain in the left ankle rule out infection or loose body. COMPARISON STUDY: Whole-body exam December 27, 2012. TECHNIQUE: 22.0 mCi technetium 99m MDP is injected and standard three-phase imaging was acquired. SCINTIGRAPHIC FINDINGS: Anterior and posterior flow study shows subtle hyperemia in the region of the left ankle and heel region. Blood pool images demonstrate hyperemia in and about the left ankle and heel compared to the right. Delayed scan images demonstrate increased uptake in the left ankle joint and in the lateral forefoot on the left in the region of the distal 5th metatarsal. There is mildly increased uptake in each calcaneus. Asymmetric uptake is seen in the ankles with increased uptake on the left on the comparison bone scan from 2012. IMPRESSION: Increased uptake in and about the left ankle compared to the right and is in the region of the distal 5th metatarsal on the left. The uptake in the left ankle pattern suggests arthropathy. Electronically Signed by Hua Wang MD 05/22/2019 03:44 P
== END ==
LOC: M RAD 10:05
PROVIDERS: ATTEND Physician Assistant
DX: M25.572 Pain in left ankle and joints of left foot (principal)

== ENCOUNTER 2019-06-01 09:15 | Outpatient (CLI) | payer MEDICARE, MEDICAID ==
[~2019-06-01] VITALS: Ht 170.2 cm; Wt 103.0 kg
[2019-06-01 09:30] VITALS: BP 118/53
[2019-06-01] MEDS ORDERED: IRON SUCROSE 475 MG in NS 250 ML IV ONE (10:00)
[2019-06-01] MEDS ORDERED: IRON SUCROSE 25 MG in NS 25 ML IV ONE (10:00)
[2019-06-01 12:00] VITALS: BP 136/60
[2019-06-01 13:00] VITALS: BP 118/55
[2019-06-01 14:00] VITALS: BP 126/66
[2019-06-01] MEDS ORDERED: SODIUM CHLORIDE 0.9% INJ 10 ML SYR IV PRN (14:45)
[2019-06-01 14:50] VITALS: BP 142/63
[2019-06-02] MEDS ORDERED: SODIUM CHLORIDE 0.9% INJ 10 ML SYR IV SCH (09:00)
== END 2019-06-01 14:50 | disposition home or self-care (01) ==
LOC: M INFU 09:15
PROVIDERS: ATTEND Internal Medicine
DX: D50.9 Iron deficiency anemia, unspecified (principal); Z88.0 Allergy status to penicillin; Z88.1 Allergy status to other antibiotic agents; Z88.2 Allergy status to sulfonamides; Z88.8 Allergy status to other drugs, medicaments and biological substances; Z91.048 Other nonmedicinal substance allergy status
CPT/HCPCS: 96365; 96366; J1756

== ENCOUNTER → 2019-06-04 | Outpatient (REF) | payer MEDICARE, MEDICAID ==
[2019-06-04 13:54] LABS: BASO # 0.1 10^3/uL (0.0-0.2); BASO % 1.3 % (0.0-1.0); EOS # 0.2 10^3/uL (0.0-0.5); EOS % 2.3 % (0.0-3.0); HEMATOCRIT 26.5 % (36.0-47.0); HEMOGLOBIN 7.1 g/dl (12.0-15.5); LYMPH # 2.3 10^3/uL (1.5-5.0); LYMPH % 22.1 % (24.0-44.0); MEAN CORPUSCULAR HEMOGLOBIN 23.6 pg (27.0-33.0); MEAN CORPUSCULAR HGB CONC 26.8 g/dl (32.0-36.5); MONO % 9.4 % (0.0-5.0); NEUTROPHILS # 6.2 10^3/uL (1.5-8.5); NEUTROPHILS % 59.9 % (36.0-66.0); PLATELET COUNT, AUTOMATED 252 10^3/uL (150-450); RED BLOOD COUNT 3.01 10^6/uL (4.00-5.40); WHITE BLOOD COUNT 10.4 10^3/uL (4.0-10.0)
[2019-06-04 14:38] LABS: CALCIUM LEVEL 9.2 MG/DL (8.8-10.2); CREATININE FOR GFR 1.6 MG/DL (0.55-1.30); GLOMERULAR FILTRATION RATE 33.5 (>39); PERCENT SATURATION 8.1 % (13.2-45.0); POTASSIUM SERUM 3.6 MEQ/L (3.5-5.1)
== END ==
LOC: M LAB REF 12:51
PROVIDERS: ATTEND Internal Medicine
DX: D50.9 Iron deficiency anemia, unspecified (principal); N18.4 Chronic kidney disease, stage 4 (severe)

== ENCOUNTER → 2019-06-25 | Outpatient (CLI) | payer MEDICARE, MEDICAID ==
[~2019-06-25] MED LIST changes: -MERO500I IV; +MERO500V2 IV
== END ==
LOC: M RAD 16:02
PROVIDERS: ATTEND Specialist
DX: Z53.9 Procedure and treatment not carried out, unspecified reason (principal); Z12.31 Encounter for screening mammogram for malignant neoplasm of breast

== ENCOUNTER 2019-07-09 19:14 | Inpatient (IN) | payer MEDICARE, MEDICAID ==
[~2019-07-09] VITALS: Ht 170.2 cm; Wt 111.2 kg
[~2019-07-09 19:14] MED LIST changes: -KETO2SHA9 TOP; -LIDO5DIS41 TD
[2019-07-09 20:49] LABS: BASO % 0.5 % (0.0-1.0); EOS # 0.2 10^3/uL (0.0-0.5); EOS % 3.7 % (0.0-3.0); LYMPH # 1.4 10^3/uL (1.5-5.0); LYMPH % 24.8 % (24.0-44.0); MEAN CORPUSCULAR HEMOGLOBIN 19.8 pg (27.0-33.0); MEAN CORPUSCULAR HGB CONC 25.2 g/dl (32.0-36.5); MEAN CORPUSCULAR VOLUME 78.6 fl (80.0-96.0); MONO # 0.5 10^3/uL (0.0-0.8); MONO % 8.6 % (0.0-5.0); NEUTROPHILS # 3.5 10^3/uL (1.5-8.5); NEUTROPHILS % 61.9 % (36.0-66.0); PLATELET COUNT, AUTOMATED 165 10^3/uL (150-450); RED BLOOD COUNT 2.57 10^6/uL (4.00-5.40); WHITE BLOOD COUNT 5.7 10^3/uL (4.0-10.0)
[2019-07-09 20:50] LABS: HEMATOCRIT 20.2 % (36.0-47.0); HEMOGLOBIN 5.1 g/dl (12.0-15.5)
[2019-07-09 21:32] LABS: CALCIUM LEVEL 9.5 MG/DL (8.8-10.2); CREATININE FOR GFR 1.76 MG/DL (0.55-1.30); POTASSIUM SERUM 3.9 MEQ/L (3.5-5.1)
[2019-07-09] MEDS ORDERED: PERCOCET 5MG/325MG TAB PO ONE (23:00)
[2019-07-09] MEDS ORDERED: ACETAMINOPHEN *IV* 1,000 MG in IV 1 EA IV ONE (23:00)
[2019-07-09 23:29] LABS: INR 1.32; PROTHROMBIN TIME 16.1 SECONDS (11.8-14.0)
[2019-07-09] MEDS ORDERED: ROCA0.5C PO (23:29)
[2019-07-09] MEDS ORDERED: LYRI150C PO (23:29)
[2019-07-10] VITALS (16 sets, daily range): BP systolic 109–130; BP diastolic 54–77
[2019-07-10] MEDS: PANTOPRAZOLE 40MG INJ (PROTONIX) (C9113) IV SCH ×3 (00:02→21:55)
[2019-07-10] MEDS ORDERED: DEXTROSE 50% 50 ML SYRINGE IV PRN (00:15)
[2019-07-10] MEDS ORDERED: GLUCOSE 4 GM CHEW TABLET PO PRN (00:15)
[2019-07-10] MEDS ORDERED: ACETAMINOPHEN TAB 650MG DOSE (2X325MG) PO PRN (00:15)
[2019-07-10] MEDS ORDERED: GLUCAGON FOR INJ 1 MG VIAL (J1610) SC PRN (00:15)
--- NOTE | 2019-07-10 00:39 | HPEPDOC ---
[facility] Medical History & Physical Date of Admission Jul 09, 2019 Date of Service: Jul 09, 2019 Primary Care Physician: Jr Villalobos Collins History and Physical CHIEF COMPLAINT: Low hemoglobin HISTORY OF PRESENT ILLNESS: This is [id number] female with multiple com orbidities who presented to ER for low hemoglobin. She was sent her PCP after a telemetry medicine visit this morning. She states that her labs this morning showed her hemoglobin was 5 and she was recommended to come to the ER for further evaluation. She does endorse the last couple days shes been feeling generalized malaise and appearing pale. She does endorse having a history of hemorrhoids and does have blood in her stool with constipation. She is on Eliquis chronically for history of DVTs. Shes had multiple prbc transfusions in the past and does get iron infusion monthly. Her last effusion was Jun 01, and and her last hemoglobin checked prior to today was in June which was 7.1. She did note that Dr. Villalobos was going to change her iron infusions to every other week for her iron stores are very low. She has no other complaints at this current time and she is admitted for acute blood loss anemia management. PAST MEDICAL HISTORY: 1. Obstructive sleep apnea on CPAP 2. Hypertension 3. CHF with preserved ejection fraction 4. Diabetes mellitus 5. 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 Gout 7. Seizure disorder 8. Urinary retention with chronic suprapubic catheter in place 9. Hx of arachnoiditis wheelchair bound 10. GERD 11. Iron deficiency anemia on monthly iron infusion 12. Morbid obesity HOME MEDICATIONS: Please see below. ALLERGIES: Please see below PAST SURGICAL HISTORY: 1. Hip replacement 2. Port placement due to poor vascular access 3. IVC filter is noted. SOCIAL HISTORY: Lives with: Ex- who helps take care of her, Employment disabled, Tobacco use: Never. ETOH: Denies, Illicit drug use: Denies, CODE STATUS: Full code FAMILY HISTORY: Reviewed and noncontributory. Positive for heart disease , mental problems, COPD and diabetes. REVIEW OF SYSTEMS: 10 systems reviewed CONSTITUTIONAL: Denies fevers, chills, night sweats, weight loss. Endorses generalized malaise HEENT: History of MATT on CPAP, denies sinus congestion or sore throat. CARDIOVASCULAR: Denies chest pain or palpitation endorses lower extremity edema with his baseline RESPIRATORY: History of MATT on CPAP denies any dyspnea at rest, wheezing or shortness of breath. GENITOURINARY: Chronic suprapubic catheter in place denies any discharge or change in urine color. MUSCULOSKELETAL: Endorses back pain which is at baseline as well as bilateral lower extremity weakness is secondary to arachnoiditis GASTROINTESTINAL: Endorses constipation chronically resolved with laxatives and MiraLAX. Denies nausea denies troubling swallowing liquids. Denies any weight loss NEUROLOGICAL: Denies change in mood, headache, endorses lightheadedness PSYCHIATRIC: Denies SI/HI, versus depression ENDOCRINE: History of diabetes HEMATOLOGIC/LYMPHATIC: History of iron deficiency anemia with monthly iron inpatient multiple blood transfusions in the past, history of multiple DVTs currently on Eliquis has an IVC filter in place PHYSICAL EXAMINATION: VITAL SIGNS: See below GENERAL: [Pleasant 74 year old female laying flat in bed appropriately answering question appears in minor distress due to discomfort in her back. To answer questions in complete sentences no accessory muscle use. HEENT: Cushingoid like features, Morbidly obese with large neck girth, pale conjunctiva peoples equal round and reactive, moist mucous membranes, with upper dentures in place CARDIOVASCULAR: [S1 S2 regular rate and rhythm 2/6 systolic murmur on the left not radiating to carotids or the apex. Unable to palpate PMI ABDOMINAL: Positive bowel sounds in all 4 quadrants slightly tender to palpation of right lower quadrant no abdominal distention soft abdomen no peritoneal or acute abdomen findings appreciated. GENITOURINARY: Suprapubic catheter in place no discharge no erythema noted. Urine color appears clear with no pus or increased sediment. EXTREMITIES: Left wrist brace, right Arm cast and left boot in place.. 1+ pitting edema appreciated to mid ankles bilaterally NEUROLOGICAL: Patient unable to lift legs which is baseline for her. Sensation intact to bilateral lower extremities which states at baseline. Alert and oriented 3 PSYCHOLOGICAL: Appropriate LABORATORY DATA: See below. MICROBIOLOGY: Please see below. IMAGING: Chest x-ray AP one view 07/09/2019 - Reviewed by Me: Blunting of the costophrenic angles bilaterally which is unchanged from baseline possible atelectasis. Heart borders are obscured. Some appear to have any vascular congestion. Trachea is midline bronchiectasis can be appreciated. No infiltrates appreciated. MediPort in place. Official report currently pending. ASSESSMENT & PLAN: This is a 24-year-old female with multiple co-morbidities who is presentied to the ER for acute blood loss anemia. PROBLEMS: 1. Acute blood loss anemia. Has a history of iron deficiency requiring monthly iron infusion last effusion Jun 01 and history of GERD. In June her H&H was 7.1 this morning her H&H was 5.1 at her PCP office as well as in the ER today. Stool occult card in the ER was positive for blood no obvious presley blood noted on exam. Transfuse 3 units prbc. Recheck h/h q6h. hold home eliquis, start protonix [id number] IV, iron studies consistent with iron deficiency anemia. Can consider possible scope in the AM, once hemodynamically stable 2. Lactic acidemia possibly secondary to problem 1. Elevated at 2.2 reflux currently pending does not appear septic possibly secondary to low perfusion. Will monitor 3. Chronic kidney disease stage III. Suprapubic catheter in place 4. History of multiple DVTs with IVC filter in place and on Eliquis. Well hold home Eliquis at least 24-48 hours due to problem 1 once H&Hs are stable can consider restarting. 5. Hypertension. Held home BP meds due to pressures being soft, once meds are reconciled in the a.m. can consider restarting if needed. Will monitor. 7. Diabetes. Half Home long acting insulin because NPO and placed on ISS q6h. 8. Seizure disorders. Continue with home Keppra 9. History of arachnoiditis? Currently wheelchair bound. On chronic pain meds such as oxycodone and Tylenol. Will restart while admitted to make sure patient is not in distress. 10. History of gout. 11. History of congestive heart failure. Currently euvolemic 12. History of MATT continue with home CPAP with home settings Medications have not been reconciled due to patient had a recent change at her primary cares office. Once they reconciled in the a.m. primary team can consider which remaining meds are necessary to restart. DVT PROPHYLAXIS: Teds and sequentials DISPOSITION: Admit for at least 2 midnight Vital Signs Vital Signs Date Time Temp Pulse Resp B/P (MAP) Pulse Ox O2 Delivery O2 Flow Rate FiO2 07/10/19 00:02 17 07/09/19 23:30 78 113/54 (73) 07/09/19 23:15 93 07/09/19 19:15 97.5 Room Air Laboratory Data Labs 24H Laboratory Tests 2 07/09/19 20:20: Immature Granulocyte % (Auto) 0.5, Neutrophils (%) (Auto) 61.9, Lymphocytes (%) (Auto) 24.8, Monocytes (%) (Auto) 8.6H, Eosinophils (%) (Auto) 3.7H, Basophils (%) (Auto) 0.5, Neutrophils # (Auto) 3.5, Lymphocytes # (Auto) 1.4L, Monocytes # (Auto) 0.5, Eosinophils # (Auto) 0.2, Basophils # (Auto) 0.0, Nucleated Red Blood Cells % (auto) 0.0, Anion Gap 5L, Glomerular Filtration Rate 30.0L, Lactic Acid Level 2.2*H, Calcium Level 9.5 07/09/19 23:05: Prothrombin Time 16.1H, Prothromb Time International Ratio 1.32 CBC/BMP Laboratory Tests 07/09/19 20:20 07/09/19 23:39 Home Medications Scheduled Allopurinol (Zyloprim) 300 Mg Tab, 300 MG PO DAILY Ammonium Lactate (Ammonium Lactate) 12 % Cre, 1 DOSE TOP BID APPLY TO LEGS/FEET Apixaban (Eliquis) 5 Mg Tablet, 5 MG PO BID Atenolol (Atenolol) 25 Mg Tablet, 25 MG PO BID Atorvastatin Calcium (Atorvastatin Calcium) 10 Mg Tab, 10 MG PO QHS Betamethasone Mala (Betamethasone Valerate) 45 Gm Oint, 1 DOSE TOP QHS USES ON LEGS FOR HOTSPOTS Calcitriol (Rocaltrol) 0.5 Mcg Capsule, 0.5 MCG PO 5XW TUESDAY THROUGH TUESDAY Colchicine (Colchicine) 0.6 Mg Tab, 0.6 MG PO DAILY Cyclosporine (Restasis) 0.05 % Emu, 1 DROP OU BID Docusate Sodium (Docusate Sodium) 100 Mg Cap, 100 MG PO BID Duloxetine Hcl (Cymbalta) 60 Mg Capsule.dr, 60 MG PO BID Ergocalciferol (Vitamin D2) (Vitamin D2) 50,000 Units Cap, 50,000 UNITS PO QMONTH 1ST OF EVERY MONTH Fluticasone Furoate (Arnuity Ellipta) 100 Mcg Blst.w.dev, 1 PUFF INH QHS Insulin Degludec (Tresiba Flextouch U-100) 100 Unit/Ml Inj, 100 UNIT SC DAILY TAKES BEFORE BREAKFAST Insulin Human Lispro (Humalog) 1 Units/0.01 Ml Inj, 1 DOSE SC AC PER SLIDING SCALE < 70: TREAT LBS WITH 15 G CARBS 70 -90: 46, 46, 46 91-130: 52, 52, 52, 8 FOR NIGHT SNACK 131-150: 56, 56, 56, 10 FOR NIGHT SNACK 151-200: 60, 60, 60, 12 FOR NIGHT SNACK, 4 UNITS NPO 201-250: 66, 66, 66, 14 FOR NIGHT SNACK, 6 UNITS NPO 251-300: 72, 72, 72, 16 FOR NIGHT SNACK, 8 UNITS NPO 301-350: 78, 78, 78, 18 FOR NIGHT SNACK, 10 UNITS NPO 351-400: 82, 82, 82, 20 FOR NIGHT SNACK, 14 UNITS NPO 401-450: 86, 86, 86, 22 FOR NIGHT SNACK, 18 UNITS NPO > 450: 90, 90, 90, 24 FOR NIGHT SNACK, 22 UNITS NPO Lactulose (Lactulose) 10 Gm/15 Ml Solution, 30 ML PO BID Levetiracetam (Levetiracetam ER) 500 Mg Lindsay, 500 MG PO BID Nortriptyline HCl (Nortriptyline HCl) 10 Mg Capsule, 10 MG PO QHS Omeprazole (Omeprazole) 20 Mg Cap, 20 MG PO BID Polyethylene Glycol 3350 (Miralax) 119 Gm Powder, 17 GM PO BID Pregabalin (Lyrica) 150 Mg Capsule, 150 MG PO BID Ropinirole HCl (Ropinirole HCl) 2 Mg Tablet, 2 MG PO QHS Spironolactone (Spironolactone) 25 Mg Tablet, 25 MG PO DAILY Sucralfate (Sucralfate) 1 Gm Tab, 1 GM PO BID Torsemide (Torsemide) 100 Mg Tablet, 100 MG PO DAILY Triamcinolone Acet (Triamcinolone Acetonide 0.025% Crm) 1 Dose/80 Gm Cream, 1 DOSE TOP BID APPLIES ON THIGHS Scheduled PRN Acetaminophen (Tylenol Arthritis) 650 Mg Tab, 650 MG PO Q8H PRN for PAIN Albuterol Sulf (Albuterol Sulfate) 2.5 Mg/3 Ml Nebu, 2.5 MG INH Q4H PRN for SHORTNESS OF BREATH Halobetasol Propionate (Halobetasol Propionate) 0.05 % Cre, 1 DOSE TOP for RASH APPLIES UNDER FOLDS AND BREASTS Magnesium Hydroxide (Milk of Magnesia) 400 Mg/5 Ml Oral.susp, 30 ML PO DAILY PRN for CONSTIPATION Nystatin (Nystatin) 100,000 Unit/Gm Cre, 1 DOSE TOP BID PRN for RASH UNDER BREASTS AND GROIN AREA Nystatin (Nystatin Oint) 30 Gm Oint, 1 DOSE TOP TID PRN for RASH APPLIES AROUND VAGINAL AREA Ondansetron HCl (Ondansetron HCl) 4 Mg Tab, 4 MG PO QID PRN for NAUSEA OR VOMITING Oxycodone HCl/Acetaminophen (Oxycodone-Acetaminophen 5-325) 1 Each Tablet, 1 TAB PO Q8H PRN for PAIN Phenylephrine HCl/Suffolk Butter (Preparation H Suppository) 1 Each Supp.rect, [address] QID PRN for HEMORRHOIDS Allergies Coded Allergies: Cephalosporins (Verified Allergy, Intermediate, hives, 07/09/19) Penicillins (Verified Allergy, Intermediate, hives, 07/09/19) Sulfa (Sulfonamide Antibiotics) (Verified Allergy, Intermediate, hives, 07/09/19) chlorpromazine (Verified Allergy, Intermediate, hiives, 07/09/19) loratadine (Verified Allergy, Intermediate, hives, 07/09/19) pentazocine (Verified Allergy, Intermediate, hives, 07/09/19) TAPE (Verified Allergy, Unknown, band-aids, 07/09/19) methadone (Verified Allergy, Unknown, 07/09/19) HAS HAD DILAUDID AND DEMEROL IN THE PAST GME ATTESTATION GME ATTESTATION My faculty preceptor for this patient encounter was physically present during the encounter and was fully available. All aspects of the patient interview, examination, medical decision making process, and medical care plan development were reviewed and approved by the faculty preceptor. The faculty preceptor is aware and concurs with the plan as stated in the body of this note and will attest to such by his/her cosignature. ATTENDING NOTE TIME OF SERVICE 1024PM is a 74-year-old with a history of gastric polyp, FRED, IDDM A1c 7.5%, gastric polyp, DVT/PE, paroxysmal A. fib, HFpEF, asthma/COPD, CKD 3, gout, morbid obesity & seizure disorder who is admitted for evaluation of acute blood loss anemia. - She has received PRBCs, PPI and octreotide, we will follow up serial hemoglobin, hold her apixaban, & keep her on a CLD pending evaluation by Dr. Edwards for EGD +/- c-scope rest per 's H&P ALVARO SÁNCHEZ DO Jul 10, 2019 00:39 TIGIST HERNANDEZ MD Jul 10, 2019 04:03
[2019-07-10] MEDS: HumaLOG INSULIN (NovoLOG) PER UNIT SC SCH ×4 (01:15→17:34)
[2019-07-10] MEDS ORDERED: OCTREOTIDE ACETATE 100 MCG/ML VIAL (J2354) IV ONE (03:00)
[2019-07-10] MEDS ORDERED: OCTREOTIDE ACETATE 1,200 MCG in NS 238.8 ML IV SCH (03:15)
[2019-07-10 05:46] LABS: HEMATOCRIT 25.1 % (36.0-47.0); HEMOGLOBIN 7.1 g/dl (12.0-15.5); MEAN CORPUSCULAR HEMOGLOBIN 22.8 pg (27.0-33.0); MEAN CORPUSCULAR HGB CONC 28.3 g/dl (32.0-36.5); MEAN CORPUSCULAR VOLUME 80.4 fl (80.0-96.0); PLATELET COUNT, AUTOMATED 155 10^3/uL (150-450); RED BLOOD COUNT 3.12 10^6/uL (4.00-5.40); WHITE BLOOD COUNT 5.4 10^3/uL (4.0-10.0)
[2019-07-10 05:59] LABS: CALCIUM LEVEL 9.2 MG/DL (8.8-10.2); CREATININE FOR GFR 1.57 MG/DL (0.55-1.30); GLOMERULAR FILTRATION RATE 34.2 (>39); POTASSIUM SERUM 3.8 MEQ/L (3.5-5.1)
[2019-07-10] MEDS ORDERED: SCOP1PAT2 TOP (06:16)
[2019-07-10] MEDS ORDERED: KETO2SHA9 TOP (06:16)
[2019-07-10] MEDS ORDERED: LIDO5DIS41 TD (06:16)
--- NOTE | 2019-07-10 07:12 | REP ---
PORTABLE CHEST X-RAY: Single view. HISTORY: Trauma. COMPARISON CHEST X-RAY: April 06, 2019. FINDINGS: An Dxhood-R-Xbdt catheter is noted in place on the right. There are surgical clips in the left upper quadrant of the abdomen and the left perihilar region in the chest. The right hemidiaphragm is slightly elevated unchanged. Pulmonary vasculature is not increased. The heart is mildly prominent unchanged. No rib or other fracture is seen. IMPRESSION: Mildly prominent heart. Postoperative changes. Rtfdoo-M-Sqvk catheter. No traumatic abnormality noted. Electronically Signed by Hua Wang MD 07/10/2019 10:36 A
[2019-07-10] MEDS ORDERED: PREPARATION H SUPP (HEMORRHOID) PR PRN (08:45)
--- NOTE | 2019-07-10 08:45 | ECGEPIP ---
[facility] - ED Test Date: 2019-07-09 Pat Name: SHIVANI PAYNE Department: Room: [place] [address] Gender: Female District Administrator: chris : [id number] Requested By: ROBERTO WILLAMS Order Number: [id number] Reading MD: Wyatt Rivas Measurements Intervals [place] Rate: 78 P: 79 MS: 228 QRS: 79 QRSD: 105 T: 81 QT: 405 QTc: 462 Interpretive Statements SINUS RHYTHM WITH FIRST DEGREE AV BLOCK NSTTW ABNORMALITIES SIMILAR TO 04/06/19 Electronically Signed on 07-10-2019 8:45:23 EDT by Wyatt Rivas
[2019-07-10] MEDS: levETIRAcetam 250MG TABLET (KEPPRA) PO SCH ×2 (09:18→21:55)
[2019-07-10] MEDS: PREGABALIN 75 MG CAP(LYRICA) PO SCH ×3 (09:18→21:55)
[2019-07-10] MEDS: COLCHICINE 0.6 MG TAB PO SCH (09:19)
[2019-07-10] MEDS: allopurinoL 300 MG TAB PO SCH (09:19)
[2019-07-10] MEDS: SUCRALFATE 1 GM TAB PO SCH ×2 (09:19→17:34)
[2019-07-10] MEDS: atenoloL 25 MG TAB PO SCH ×2 (09:19→22:23)
[2019-07-10] MEDS: SPIRONOLACTONE 25 MG TAB PO SCH (09:19)
[2019-07-10] MEDS: LEVEMIR (INSULIN DETEMIR) 1 UNITS/0.01ML SC SCH (09:20)
[2019-07-10 09:29] LABS: FOLATE 17.7 NG/ML (>5.4)
[2019-07-10] MEDS: NS 1,000 ML IV SCH ×2 (10:29→21:57)
[2019-07-10] MEDS: PERCOCET 5MG/325MG TAB PO PRN (17:34)
[2019-07-10] MEDS: ATORVASTATIN 10 MG TAB PO SCH (21:55)
[2019-07-10] MEDS: rOPINIRole 2MG TAB PO SCH (21:55)
[2019-07-11] VITALS: BP 121/57
--- NOTE | 2019-07-11 | CR ---
DATE OF CONSULTATION: 07/10/2019 REASON FOR CONSULTATION: Marked anemia requiring transfusion, question of gastrointestinal bleeding. HISTORY: The patient is a 74-year-old woman with multiple medical issues who has a history of recurring problems with anemia. She apparently has received intermittent transfusions because of her anemia as well as receiving supplemental iron. She had received a transfusion of blood on June 01, 2019. In recent followup, she was found to have a hemoglobin of 7 on June 04, 2019 but had testing on July 09, 2019 that showed a hemoglobin of 5.4. On repeat, this was 5.1. She was admitted by the hospitalist and received 3 units of packed red blood cells. I was consulted to evaluate the need for an endoscopic exam. ALLERGIES: Allergies are reported to CEPHALOSPORINS, PENICILLIN, SULFA, TAPE, CHLORPROMAZINE, LORATADINE, METHADONE and PENTAZOCINE. MEDICATIONS: At the time of admission are multiple and include albuterol nebulizers, allopurinol, Eliquis, atenolol, atorvastatin, calcitriol, colchicine, Restasis eye drops, docusate sodium, Cymbalta, vitamin D2, fluticasone furoate inhaler, insulin long-acting and short-acting, lactulose, levetiracetam, omeprazole, Zofran as needed, Percocet tablets, MiraLax twice daily, Lyrica, ropinirole, spironolactone, Carafate, torsemide, as well as several creams or ointments. MEDICAL HISTORY: Significant for diabetes mellitus. She suffers from obesity. She has a history of sleep apnea, on continuous positive airway pressure (CPAP). She has hypertension and a history of congestive heart failure. She has had deep vein thromboses. She apparently has an inferior vena cava filter in place, but has been continued on Eliquis. I do not know the exact timing of her clot. She has a history of seizure disorder. She has had urinary retention and has a chronic suprapubic catheter in place. She has a history of arachnoiditis and apparently is non-ambulatory but has a wheelchair. She has iron deficiency anemia, which has been under treatment for it sounds like several years. She has a history of gastroesophageal reflux. SURGICAL HISTORY: The patient has had a hip replacement. She has an [id number]-[id number] due to poor vascular access. She has had an inferior vena caval filter placed. She has had several endoscopic exams with her most recent colonoscopy by Dr. Hoskins in August of 2016. This revealed some hemorrhoids as well as some melanosis coli. The colon was otherwise described as appearing normal. She had an upper endoscopy most recently documented at [facility] in February of [address] Hoskins. This revealed some food residue within the gastric body. The esophagus appeared normal. There were some polyps noted within the stomach. The gastric exam was somewhat limited but otherwise normal. The biopsy of the gastric polyps showed a hyperplastic polyp. She did have surgical repair of an ankle fracture some years ago. FAMILY HISTORY: Family history is really noncontributory. SOCIAL HISTORY: The patient lives with her ex- and is disabled. She is a never smoker and denies any alcohol use. REVIEW OF SYSTEMS: The patient is a little vague on some of her history. She denies any chest pain or palpitations. She has no shortness of breath currently. She has been having bowel movements and reports that these have been somewhat dark but that is not unusual for her. Her urinary catheter has been draining well. She is not having any bone or joint issues other than what is normal as far as her limitation of movement. PHYSICAL EXAM: Revealed a pleasant, elderly-appearing, obese woman lying quietly on the hospital bed. She is alert, cooperative and pleasant. She does not appear to be in any significant discomfort currently. Sclerae are anicteric. Mucous membranes are moist. Heart exam reveals a regular rhythm. The lungs are clear. The abdomen is quite obese but soft and without any significant tenderness. LABORATORY: Show that on presentation she had a hemoglobin of 5.1 with a hematocrit of 20. She received 3 units of packed red blood cells, and this morning her labs showed a white count of 5, hemoglobin 7, and a hematocrit of 25. Platelet count was 155,000. Chemistry profile this morning showed a sodium of 138, potassium 3.8, chloride 105, CO2 of 31, BUN of 45, creatinine 1.57 and a glucose of 195. IMPRESSION: The patient is a 74-year-old woman with multiple underlying chronic medical issues including diabetes, obstructive sleep apnea, hypertension and a history of congestive heart failure, obesity, seizure disorder and a history of anemia with iron deficiency despite treatment. She presented with a markedly low hemoglobin of 5.1. She has responded appropriately to 3 units of packed red blood cells. The etiology of her underlying anemia is not clear to me, but she is followed regularly by her primary physician, Dr. Villalobos. She has not had an upper endoscopy lately to the best of my knowledge. She does report that Dr. Hoskins was not going to recommend any further colonoscopies on her apparently related to the difficulties of getting her cleaned out with her chronic constipation and the lack of previous findings. RECOMMENDATIONS: At this point, the patient does not appear to be bleeding actively. It is unclear to me if there is some underlying myelodysplasia as part of her problem or if this represents chronic slow blood loss from some sort of GI source which has not yet been identified. I will defer to the hospitalist regarding the need for further transfusion. It may be reasonable to consider an upper endoscopy during this hospital stay to determine if there is any obvious acute contributing factor to her anemia. I do note that on her prior upper endoscopy 5 years ago that she did have some retained food within the stomach, but I cannot tell how long she had been fasting or on dietary restriction prior to that. I will reassess her tomorrow, and we can determine if an endoscopic exam would be prudent. JOSE R
[2019-07-11] MEDS: HumaLOG INSULIN (NovoLOG) PER UNIT SC SCH ×4 (01:04→17:33)
[2019-07-11 04:00] VITALS: BP 109/50
[2019-07-11] MEDS: PERCOCET 5MG/325MG TAB PO PRN ×2 (04:30→17:09)
[2019-07-11 06:36] LABS: HEMATOCRIT 28.7 % (36.0-47.0); MEAN CORPUSCULAR HGB CONC 27.9 g/dl (32.0-36.5); MEAN CORPUSCULAR VOLUME 82.5 fl (80.0-96.0); PLATELET COUNT, AUTOMATED 144 10^3/uL (150-450); RED BLOOD COUNT 3.48 10^6/uL (4.00-5.40); WHITE BLOOD COUNT 5.5 10^3/uL (4.0-10.0)
[2019-07-11 07:01] LABS: CALCIUM LEVEL 8.1 MG/DL (8.8-10.2); CREATININE FOR GFR 1.39 MG/DL (0.55-1.30); GLOMERULAR FILTRATION RATE 39.3 (>39)
[2019-07-11] MEDS: SUCRALFATE 1 GM TAB PO SCH ×2 (08:10→17:10)
[2019-07-11 08:13] VITALS: BP 123/58
[2019-07-11] MEDS: SPIRONOLACTONE 25 MG TAB PO SCH (08:42)
[2019-07-11] MEDS: COLCHICINE 0.6 MG TAB PO SCH (08:42)
[2019-07-11] MEDS: allopurinoL 300 MG TAB PO SCH (08:43)
[2019-07-11] MEDS: atenoloL 25 MG TAB PO SCH ×2 (08:44→21:35)
[2019-07-11] MEDS: PANTOPRAZOLE 40MG INJ (PROTONIX) (C9113) IV SCH ×2 (08:45→21:35)
[2019-07-11] MEDS: PREGABALIN 75 MG CAP(LYRICA) PO SCH ×3 (08:45→21:34)
[2019-07-11] MEDS: levETIRAcetam 250MG TABLET (KEPPRA) PO SCH ×2 (08:45→21:34)
[2019-07-11] MEDS: LEVEMIR (INSULIN DETEMIR) 1 UNITS/0.01ML SC SCH (08:46)
[2019-07-11] MEDS ORDERED: SLF 3 ML SYR IV PRN (10:15)
[2019-07-11] MEDS ORDERED: SODIUM CHLORIDE 0.9% INJ 10 ML SYR IV PRN (11:00)
[2019-07-11 12:00] VITALS: BP 123/59
[2019-07-11] MEDS ORDERED: SLF 3 ML SYR IV SCH (14:00)
[2019-07-11 16:00] VITALS: BP 142/62
[2019-07-11 20:00] VITALS: BP 146/67
[2019-07-11] MEDS ORDERED: GLUCOSE 4 GM CHEW TABLET PO PRN (20:00)
[2019-07-11] MEDS ORDERED: GLUCAGON FOR INJ 1 MG VIAL (J1610) SC PRN (20:00)
[2019-07-11] MEDS ORDERED: DEXTROSE 50% 50 ML SYRINGE IV PRN (20:00)
--- NOTE | 2019-07-11 20:48 | IPNPDOC ---
Date Seen The patient was seen on 07/11/19. Progress Note SUBJECTIVE: 74 y.o female w/ PMH of CHF, DM, DVT, Seizure disorder, Urinary retention s/p suprapubic Al catheter & GERD is admitted for severe anemia. She has chronic anemia, reports history of hemorrhoids with occasional blood stained stool but otherwise without any gross blood loss recently. She undergoes IV iron infusions in the outpatient setting for severe iron deficiency, has received 3 units of PRBC during this hospitalization. Her H/H has been stable since, no signs of active bleeding, evaluated by General surgery and EGD/Colonoscopy was not performed due to chronicity of anemia without any active bleeding at this time. Patient is comfortable, reports fatigue, no other complaints. 10 point review of system is negative except for above. OBJECTIVE PHYSICAL EXAMINATION: VITAL SIGNS: Please see below. GENERAL: No distress HEENT: Moist mucus membranes CARDIOVASCULAR: S1, S2, no murmurs RESPIRATORY: scattered rhonchi ABDOMINAL: Soft, non-tender, non-distended, +BS EXTREMITIES: ROM intact NEUROLOGICAL: No focal deficits PSYCHOLOGICAL: Calm LABORATORY DATA, IMAGING STUDIES, MICROBIOLOGY: Please see below. ASSESSMENT AND PLAN: 74 y.o female w/ multiple medical comorbidities is admitted for severe anemia. PROBLEMS: 1. Severe anemia: has severe iron deficiency, undergoes IV iron infusions, no active bleeding currently, no other obvious etiology at this time, s/p 3 units of PRBC during hospitalization, H/H stable, continue IV iron, evaluated by General surgery, elected against EGD/Colonoscopy given chronicity of anemia/lack of bleeding. d/c tomorrow w/ outpatient GI follow up. Eliquis was held at the time of admission, will restart as I don't believe patient bled or is actively bleeding. 2. Multiple medical comorbidities - stable, continue optimal home regimen. DVT Prophylaxis - Eliquis GI Prophylaxis - PPI VS, I&O, 24H, Fishbone Vital Signs/I&O Vital Signs Date Time Temp Pulse Resp B/P (MAP) Pulse Ox O2 Delivery O2 Flow Rate FiO2 07/11/19 20:00 97.3 64 20 146/67 (93) 90 Nasal Cannula 1.0 I&O- Last 24 Hours up to 6 AM 07/11/19 06:00 Intake Total 2500 ml Output Total 2325 ml Balance 175 ml Laboratory Data 24H LABS Laboratory Tests 2 07/11/19 00:22: Bedside Glucose (Misc Panel) 131H 07/11/19 06:21: Nucleated Red Blood Cells % (auto) 0.4H, Anion Gap 3L, Glomerular Filtration Rate 39.3, Calcium Level 8.1L 07/11/19 06:23: Bedside Glucose (Misc Panel) 84 07/11/19 12:09: Bedside Glucose (Misc Panel) 113H 07/11/19 17:15: Bedside Glucose (Misc Panel) 99 CBC/BMP Laboratory Tests 07/11/19 06:21 07/11/19 12:21 07/11/19 18:01 GONZALES EMERY MD Jul 11, 2019 20:48
[2019-07-11] MEDS ORDERED: HumaLOG INSULIN (NovoLOG) PER UNIT SC SCH ×2 (21:00)
[2019-07-11] MEDS: IRON SUCROSE 100MG 5ML VIAL (J1756 PER 1MG) IV SCH (21:33)
[2019-07-11] MEDS: rOPINIRole 2MG TAB PO SCH (21:34)
[2019-07-11] MEDS: ATORVASTATIN 10 MG TAB PO SCH (21:34)
[2019-07-11] MEDS: APIXABAN 5 MG TAB (ELIQUIS) PO SCH (21:34)
[2019-07-12] VITALS: BP 150/62
[2019-07-12] MEDS ORDERED: ONDANSETRON 4MG/2ML VIAL (J2405) IV PRN (01:00)
[2019-07-12] MEDS: PERCOCET 5MG/325MG TAB PO PRN (01:01)
[2019-07-12 04:00] VITALS: BP 118/56
[2019-07-12 05:41] LABS: HEMATOCRIT 29.4 % (36.0-47.0); MEAN CORPUSCULAR HGB CONC 27.2 g/dl (32.0-36.5); MEAN CORPUSCULAR VOLUME 84.5 fl (80.0-96.0); PLATELET COUNT, AUTOMATED 136 10^3/uL (150-450); RED BLOOD COUNT 3.48 10^6/uL (4.00-5.40); WHITE BLOOD COUNT 7.9 10^3/uL (4.0-10.0)
[2019-07-12 06:08] LABS: CALCIUM LEVEL 8.3 MG/DL (8.8-10.2); CREATININE FOR GFR 1.32 MG/DL (0.55-1.30); GLOMERULAR FILTRATION RATE 41.8 (>39); POTASSIUM SERUM 3.8 MEQ/L (3.5-5.1)
[2019-07-12] MEDS: HumaLOG INSULIN (NovoLOG) PER UNIT SC SCH ×2 (07:30→12:41)
[2019-07-12 08:00] VITALS: BP 135/62
[2019-07-12] MEDS: IRON SUCROSE 100MG 5ML VIAL (J1756 PER 1MG) IV SCH (08:16)
[2019-07-12 08:17] VITALS: BP 135/62
[2019-07-12] MEDS: allopurinoL 300 MG TAB PO SCH (08:17)
[2019-07-12] MEDS: COLCHICINE 0.6 MG TAB PO SCH (08:17)
[2019-07-12] MEDS: PREGABALIN 75 MG CAP(LYRICA) PO SCH (08:17)
[2019-07-12] MEDS: APIXABAN 5 MG TAB (ELIQUIS) PO SCH (08:17)
[2019-07-12] MEDS: levETIRAcetam 250MG TABLET (KEPPRA) PO SCH (08:17)
[2019-07-12] MEDS: atenoloL 25 MG TAB PO SCH (08:17)
[2019-07-12] MEDS: SUCRALFATE 1 GM TAB PO SCH (08:18)
[2019-07-12] MEDS: PANTOPRAZOLE 40MG INJ (PROTONIX) (C9113) IV SCH (08:18)
[2019-07-12] MEDS: LEVEMIR (INSULIN DETEMIR) 1 UNITS/0.01ML SC SCH (08:18)
[2019-07-12] MEDS: SPIRONOLACTONE 25 MG TAB PO SCH (08:25)
[2019-07-12] MEDS ORDERED: SODIUM CHLORIDE 0.9% INJ 10 ML SYR IV SCH (09:00)
[2019-07-12 12:00] VITALS: BP 122/62
--- NOTE | 2019-07-12 15:33 | DS.PDOC ---
Discharge Summary General Date of Admission Jul 09, 2019 at 22:25 Date of Discharge 07/12/19 Attending Physician: GONZALES EMERY MD Discharge Summary PROCEDURES PERFORMED DURING STAY: None ADMITTING DIAGNOSES: 1. Severe anemia, iron deficiency DISCHARGE DIAGNOSES: 1. Severe anemia, iron deficiency COMPLICATIONS/CHIEF COMPLAINT: Gi Bleed, Symptomatic Anemia. HISTORY OF PRESENT ILLNESS: 74 y.o female w/ multiple medical comorbidities was admitted for severe anemia. She had no clinical signs of blood loss and she undergoes outpatient IV iron infusions for severe deficiency. She received 3 units of PRBC, H/H has remained stable throughout hospitalization without any obvious bleeding. She was evaluated by General surgery & EGD/Colonoscopy were not performed due to chronicity of her anemia & lack of bleeding. She is hemodynamically stable and plan is to have her follow up outpatient with her credit support counselor for further workup and treatment. HOSPITAL COURSE: As above DISCHARGE MEDICATIONS: Please see below. ALLERGIES: Please see below. OBJECTIVE PHYSICAL EXAMINATION: VITAL SIGNS: Please see below. GENERAL: No distress HEENT: Moist mucus membranes CARDIOVASCULAR: S1, S2, no murmurs RESPIRATORY: scattered rhonchi ABDOMINAL: Soft, non-tender, non-distended, +BS EXTREMITIES: ROM intact NEUROLOGICAL: No focal deficits PSYCHOLOGICAL: Calm LABORATORY DATA: Please see below. PROGNOSIS: Fair ACTIVITY: As tolerated DIET: Cardiac DISCHARGE PLAN: Follow up w/ PCP & GI in 1-2 weeks DISPOSITION: 01 Home, Self-Care. DISCHARGE INSTRUCTIONS: 1. As above DISCHARGE CONDITION: Stable TIME SPENT ON DISCHARGE: Greater than 24 minutes. Vital Signs/I&Os Vital Signs Date Time Temp Pulse Resp B/P (MAP) Pulse Ox O2 Delivery O2 Flow Rate FiO2 07/12/19 12:00 96.8 71 20 122/62 (82) 90 Nasal Cannula 1.0 I&O- Last 24 Hours up to 6 AM 07/12/19 06:00 Intake Total 1770 ml Output Total 2400 ml Balance -630 ml Laboratory Data Labs 24H Laboratory Tests 2 07/11/19 17:15: Bedside Glucose (Misc Panel) 99 07/11/19 21:15: Bedside Glucose (Misc Panel) 97 07/12/19 05:20: Nucleated Red Blood Cells % (auto) 0.0, Anion Gap 5L, Glomerular Filtration Rate 41.8, Calcium Level 8.3L 4/9/20 12:14: Bedside Glucose (Misc Panel) 105 CBC/BMP Laboratory Tests 07/11/19 18:01 07/12/19 05:20 FSBS Laboratory Tests Test 07/11/19 17:15 07/11/19 21:15 07/12/19 12:14 Range/Units Bedside Glucose (Misc Panel) 99 97 105 83-110 MG/DL Discharge Medications Scheduled Allopurinol (Zyloprim) 300 Mg Tab, 300 MG PO DAILY, (Reported) Ammonium Lactate (Ammonium Lactate) 12 % Cre, 1 DOSE TOP BID, (Reported) APPLY TO LEGS/FEET Apixaban (Eliquis) 5 Mg Tablet, 5 MG PO BID, (Reported) Atenolol (Atenolol) 25 Mg Tablet, 25 MG PO BID, (Reported) Atorvastatin Calcium (Atorvastatin Calcium) 10 Mg Tab, 10 MG PO QHS, (Reported) Betamethasone Mala (Betamethasone Valerate) 45 Gm Oint, 1 DOSE TOP QHS, (Reported) USES ON LEGS FOR HOTSPOTS Calcitriol (Rocaltrol) 0.5 Mcg Capsule, 0.5 MCG PO 5XW, (Reported) TUESDAY THROUGH TUESDAY Colchicine (Colchicine) 0.6 Mg Tab, 0.6 MG PO DAILY, (Reported) Cyclosporine (Restasis) 0.05 % Emu, 1 DROP OU BID, (Reported) Docusate Sodium (Docusate Sodium) 100 Mg Cap, 100 MG PO BID, (Reported) Duloxetine Hcl (Cymbalta) 60 Mg Capsule.dr, 60 MG PO 5XW, (Reported) SPOKE WITH DR. ANTOINE'S OFFICE, MEDICATION WAS DECREASED TO 5XW 07/09/19 Ergocalciferol (Vitamin D2) (Vitamin D2) 50,000 Units Cap, 50,000 UNITS PO QMONTH, (Reported) 1ST OF EVERY MONTH Fluticasone Furoate (Arnuity Ellipta) 100 Mcg Blst.w.dev, 1 PUFF INH QHS, (Reported) Insulin Degludec (Tresiba Flextouch U-100) 100 Unit/Ml Inj, 100 UNIT SC DAILY, (Reported) TAKES BEFORE BREAKFAST Insulin Human Lispro (Humalog) 1 Units/0.01 Ml Inj, 1 DOSE SC AC, (Reported) PER SLIDING SCALE < 70: TREAT LBS WITH 15 G CARBS 70 -90: 46, 46, 46 91-130: 52, 52, 52, 8 FOR NIGHT SNACK 131-150: 56, 56, 56, 10 FOR NIGHT SNACK 151-200: 60, 60, 60, 12 FOR NIGHT SNACK, 4 UNITS NPO 201-250: 66, 66, 66, 14 FOR NIGHT SNACK, 6 UNITS NPO 251-300: 72, 72, 72, 16 FOR NIGHT SNACK, 8 UNITS NPO 301-350: 78, 78, 78, 18 FOR NIGHT SNACK, 10 UNITS NPO 351-400: 82, 82, 82, 20 FOR NIGHT SNACK, 14 UNITS NPO 401-450: 86, 86, 86, 22 FOR NIGHT SNACK, 18 UNITS NPO > 450: 90, 90, 90, 24 FOR NIGHT SNACK, 22 UNITS NPO Ketoconazole (Ketoconazole) 120 Ml Shampoo, 1 DOSE TOP 2XWK, (Reported) TUESDAY AND TUESDAY Lactulose (Lactulose) 10 Gm/15 Ml Solution, 30 ML PO BID, (Reported) Levetiracetam (Levetiracetam ER) 500 Mg Lindsay, 500 MG PO BID, (Reported) Omeprazole (Omeprazole) 20 Mg Cap, 20 MG PO BID, (Reported) Polyethylene Glycol 3350 (Miralax) 119 Gm Powder, 17 GM PO BID, (Reported) Pregabalin (Lyrica) 150 Mg Capsule, 150 MG PO TID, (Reported) Ropinirole HCl (Ropinirole HCl) 2 Mg Tablet, 2 MG PO QHS, (Reported) Spironolactone (Spironolactone) 25 Mg Tablet, 25 MG PO DAILY, (Reported) Sucralfate (Sucralfate) 1 Gm Tab, 1 GM PO BID, (Reported) Torsemide (Torsemide) 100 Mg Tablet, 100 MG PO DAILY, (Reported) Triamcinolone Acet (Triamcinolone Acetonide 0.025% Crm) 1 Dose/80 Gm Cream, 1 DOSE TOP BID, (Reported) APPLIES ON THIGHS Scheduled PRN Acetaminophen (Tylenol Arthritis) 650 Mg Tab, 650 MG PO Q8H PRN for PAIN, (Reported) Albuterol Sulf (Albuterol Sulfate) 2.5 Mg/3 Ml Nebu, 2.5 MG INH Q4H PRN for SHORTNESS OF BREATH, (Reported) Halobetasol Propionate (Halobetasol Propionate) 0.05 % Cre, 1 DOSE TOP for RASH, (Reported) APPLIES UNDER FOLDS AND BREASTS Lidocaine (Lidoderm) 5% Adh..patch, 1 PATCH TD DAILY PRN for PAIN, (Reported) USES ON SHOULDERS/LOWER BACK NEEDED FOR PAIN Magnesium Hydroxide (Milk of Magnesia) 400 Mg/5 Ml Oral.susp, 30 ML PO DAILY PRN for CONSTIPATION, (Reported) Nystatin (Nystatin) 100,000 Unit/Gm Cre, 1 DOSE TOP BID PRN for RASH, (Reported) UNDER BREASTS AND GROIN AREA Nystatin (Nystatin Oint) 30 Gm Oint, 1 DOSE TOP TID PRN for RASH, (Reported) APPLIES AROUND VAGINAL AREA Ondansetron HCl (Ondansetron HCl) 4 Mg Tab, 4 MG PO QID PRN for NAUSEA OR VOMITING, (Reported) Oxycodone HCl/Acetaminophen (Oxycodone-Acetaminophen 5-325) 1 Each Tablet, 1 TAB PO Q8H PRN for PAIN, (Reported) Phenylephrine HCl/Hico Butter (Preparation H Suppository) 1 Each Supp.rect, 1 SUP VT QID PRN for HEMORRHOIDS, (Reported) Scopolamine (Transderm-Scop) 1 Each Patch.td.3, 1.5 MG TOP Q72H PRN for MOTION SICKNESS, (Reported) Allergies Coded Allergies: Cephalosporins (Verified Allergy, Intermediate, hives, 07/09/19) Penicillins (Verified Allergy, Intermediate, hives, 07/09/19) Sulfa (Sulfonamide Antibiotics) (Verified Allergy, Intermediate, hives, 07/09/19) chlorpromazine (Verified Allergy, Intermediate, hiives, 07/09/19) loratadine (Verified Allergy, Intermediate, hives, 07/09/19) pentazocine (Verified Allergy, Intermediate, hives, 07/09/19) TAPE (Verified Allergy, Unknown, band-aids, 07/09/19) methadone (Verified Allergy, Unknown, 07/09/19) HAS HAD DILAUDID AND DEMEROL IN THE PAST GONZALES EMERY MD Jul 12, 2019 15:33
--- NOTE | 2019-07-13 06:46 | IPN ---
DATE: 07/11/2019 HISTORY: The patient was admitted by the hospitalist on July 08 with anemia. She has a history of chronic anemia, but her hemoglobin had dropped to 5.1. She received 3 units of packed red blood cells. She has multiple medical issues and a history of chronic anemia. Vital signs show that she has been afebrile. Her pulse has been in the 60s. Blood pressure is excellent with a normal room air oxygen saturation. Intake and output shows that she has had 3 liters in with approximately 2000 mL out on the . Her oral intake has been good on the and her urine output has also been excellent. PHYSICAL EXAMINATION: The patient is lying quietly on the hospital bed. She is alert and comfortable. She has not had any bowel movements today. She is denying any chest pain or shortness of breath. There is no abdominal pain. The abdomen is soft, obese and nontender. LABORATORY FINDINGS: The patient this morning had a white count of 6, hemoglobin 8 and a hematocrit of 29. A repeat hemoglobin later in the day was 8.0 and in the evening was 8.1. IMPRESSION: The patient has a stable hemoglobin of approximately 8 following transfusion of 3 units of packed red blood cells. She has had no bowel movements today or since admission. Therefore, there is really no strong evidence that she is having any bleeding currently. PLAN: I discussed with her hospitalist, Dr. Palacios, that I was not convinced that she needed upper endoscopy at this point and he was in agreement. I agreed with him that if she does well overnight with a regular diet that she could be discharged tomorrow. She can follow up with her primary physician after discharge.
== END 2019-07-12 14:52 | disposition home or self-care (01) | DRG 812 ==
LOC: M ED 19:14 → M ED INP 22:25 → ENRESERVDT 23:10 → ENRESERVTM 23:10 → M PCU 07-10 00:20
PROVIDERS: ADMIT Internal Medicine; ATTEND Internal Medicine
PROC: 30233N1 Transfusion of Nonautologous Red Blood Cells into Peripheral Vein, Percutaneous Approach (ICD-10-PCS; principal; 2019-07-10)
DX: D62 Acute posthemorrhagic anemia (principal); I13.0 Hypertensive heart and chronic kidney disease with heart failure and stage 1 through stage 4 chronic kidney disease, or unspecified chronic kidney disease; E87.2 Acidosis; I50.32 Chronic diastolic (congestive) heart failure; E11.9 Type 2 diabetes mellitus without complications; N18.3 Chronic kidney disease, stage 3 (moderate); Z79.899 Other long term (current) drug therapy; Z79.4 Long term (current) use of insulin; Z88.0 Allergy status to penicillin; Z88.2 Allergy status to sulfonamides; Z88.8 Allergy status to other drugs, medicaments and biological substances; G47.33 Obstructive sleep apnea (adult) (pediatric); K21.9 Gastro-esophageal reflux disease without esophagitis; G40.909 Epilepsy, unspecified, not intractable, without status epilepticus; M10.9 Gout, unspecified; Z86.718 Personal history of other venous thrombosis and embolism; Z79.01 Long term (current) use of anticoagulants; R33.9 Retention of urine, unspecified; E66.01 Morbid (severe) obesity due to excess calories; Z96.649 Presence of unspecified artificial hip joint

== ENCOUNTER → 2019-07-09 | Outpatient (REF) | payer MEDICARE, MEDICAID ==
[~2019-07-09] MED LIST changes: +KETO2SHA9 TOP; +LIDO5DIS41 TD
[2019-07-09 16:46] LABS: BASO % 0.7 % (0.0-1.0); EOS # 0.2 10^3/uL (0.0-0.5); EOS % 2.7 % (0.0-3.0); HEMATOCRIT 21.5 % (36.0-47.0); LYMPH # 1.8 10^3/uL (1.5-5.0); LYMPH % 31.5 % (24.0-44.0); MEAN CORPUSCULAR HEMOGLOBIN 20.1 pg (27.0-33.0); MEAN CORPUSCULAR HGB CONC 25.1 g/dl (32.0-36.5); MEAN CORPUSCULAR VOLUME 80.2 fl (80.0-96.0); MONO # 0.6 10^3/uL (0.0-0.8); MONO % 10.6 % (0.0-5.0); NEUTROPHILS % 54.1 % (36.0-66.0); PLATELET COUNT, AUTOMATED 180 10^3/uL (150-450); RED BLOOD COUNT 2.68 10^6/uL (4.00-5.40); WHITE BLOOD COUNT 5.6 10^3/uL (4.0-10.0)
[2019-07-09 16:53] LABS: HEMOGLOBIN 5.4 g/dl (12.0-15.5)
[2019-07-09 17:12] LABS: ALBUMIN 3.4 GM/DL (3.2-5.2); BILIRUBIN,TOTAL 0.3 MG/DL (0.2-1.0); CALCIUM LEVEL 9.6 MG/DL (8.8-10.2); CREATININE FOR GFR 1.63 MG/DL (0.55-1.30); GLOMERULAR FILTRATION RATE 32.7 (>39); PERCENT SATURATION 3.1 % (13.2-45.0); POTASSIUM SERUM 3.7 MEQ/L (3.5-5.1); TOTAL PROTEIN 6.1 GM/DL (6.4-8.2)
== END ==
LOC: M LAB REF 16:30
PROVIDERS: ATTEND Internal Medicine
DX: E11.65 Type 2 diabetes mellitus with hyperglycemia (principal); D50.9 Iron deficiency anemia, unspecified

== ENCOUNTER → 2019-07-15 | Outpatient (REF) | payer MEDICARE, MEDICAID ==
[~2019-07-15] MED LIST changes: +KETO2SHA9 TOP; +LIDO5DIS41 TD
== END ==
LOC: M LAB REF 13:26
PROVIDERS: ATTEND Internal Medicine Nephrology
DX: N39.0 Urinary tract infection, site not specified (principal); N18.3 Chronic kidney disease, stage 3 (moderate)

== ENCOUNTER → 2019-07-19 | Outpatient (REF) | payer MEDICARE, MEDICAID ==
[2019-07-19 13:18] LABS: BASO # 0.1 10^3/uL (0.0-0.2); BASO % 1.3 % (0.0-1.0); EOS # 0.2 10^3/uL (0.0-0.5); EOS % 5.1 % (0.0-3.0); HEMATOCRIT 30.3 % (36.0-47.0); LYMPH # 1.1 10^3/uL (1.5-5.0); LYMPH % 27.9 % (24.0-44.0); MEAN CORPUSCULAR HEMOGLOBIN 23.3 pg (27.0-33.0); MEAN CORPUSCULAR HGB CONC 26.4 g/dl (32.0-36.5); MEAN CORPUSCULAR VOLUME 88.1 fl (80.0-96.0); MONO # 0.3 10^3/uL (0.0-0.8); MONO % 7.9 % (0.0-5.0); NEUTROPHILS # 2.2 10^3/uL (1.5-8.5); NEUTROPHILS % 57.3 % (36.0-66.0); PLATELET COUNT, AUTOMATED 148 10^3/uL (150-450); RED BLOOD COUNT 3.44 10^6/uL (4.00-5.40); WHITE BLOOD COUNT 3.9 10^3/uL (4.0-10.0)
[2019-07-19 14:02] LABS: ALBUMIN 3.1 GM/DL (3.2-5.2); BILIRUBIN,TOTAL 0.4 MG/DL (0.2-1.0); CALCIUM LEVEL 9.2 MG/DL (8.8-10.2); CREATININE FOR GFR 1.45 MG/DL (0.55-1.30); GLOMERULAR FILTRATION RATE 37.5 (>39); PERCENT SATURATION 6.8 % (13.2-45.0); POTASSIUM SERUM 3.5 MEQ/L (3.5-5.1); TOTAL PROTEIN 5.6 GM/DL (6.4-8.2)
== END ==
LOC: M LAB REF 12:38
PROVIDERS: ATTEND Internal Medicine
DX: D50.9 Iron deficiency anemia, unspecified (principal)

== ENCOUNTER 2019-07-25 09:32 | Outpatient (CLI) | payer MEDICARE, MEDICAID ==
[~2019-07-25] VITALS: Ht 170.2 cm; Wt 111.2 kg
[2019-07-25 09:35] VITALS: BP 130/63
[2019-07-25] MEDS ORDERED: IRON SUCROSE 500 MG in NS 250 ML IV ONE (10:00)
[2019-07-25] MEDS ORDERED: IRON SUCROSE 25 MG in NS 25 ML IV ONE (10:00)
[2019-07-25] MEDS ORDERED: SODIUM CHLORIDE 0.9% INJ 10 ML SYR IV PRN (10:00)
[2019-07-25] MEDS ORDERED: IRON SUCROSE 475 MG in NS 250 ML IV ONE (10:00)
[2019-07-25 10:15] VITALS: BP 145/62
[2019-07-25 11:15] VITALS: BP 136/63
[2019-07-25 12:15] VITALS: BP 128/59
[2019-07-25 13:15] VITALS: BP 140/65
[2019-07-25 14:02] VITALS: BP 131/77
[2019-07-26] MEDS ORDERED: SODIUM CHLORIDE 0.9% INJ 10 ML SYR IV SCH (09:00)
== END 2019-07-25 14:00 | disposition home or self-care (01) ==
LOC: M INFU 09:32
PROVIDERS: ATTEND Internal Medicine
DX: D50.9 Iron deficiency anemia, unspecified (principal); Z79.899 Other long term (current) drug therapy; Z88.0 Allergy status to penicillin; Z88.2 Allergy status to sulfonamides; Z88.8 Allergy status to other drugs, medicaments and biological substances
CPT/HCPCS: 96365; 96366; J1642; J1756

== ENCOUNTER → 2019-07-26 | Outpatient (REF) | payer MEDICARE, MEDICAID ==
[2019-07-26 13:19] LABS: BASO # 0.1 10^3/uL (0.0-0.2); BASO % 1.1 % (0.0-1.0); EOS # 0.2 10^3/uL (0.0-0.5); EOS % 2.9 % (0.0-3.0); HEMATOCRIT 31.3 % (36.0-47.0); HEMOGLOBIN 8.4 g/dl (12.0-15.5); LYMPH # 1.5 10^3/uL (1.5-5.0); LYMPH % 21.1 % (24.0-44.0); MEAN CORPUSCULAR HEMOGLOBIN 23.4 pg (27.0-33.0); MEAN CORPUSCULAR HGB CONC 26.8 g/dl (32.0-36.5); MEAN CORPUSCULAR VOLUME 87.2 fl (80.0-96.0); MONO # 0.7 10^3/uL (0.0-0.8); NEUTROPHILS # 4.5 10^3/uL (1.5-8.5); NEUTROPHILS % 62.7 % (36.0-66.0); PLATELET COUNT, AUTOMATED 297 10^3/uL (150-450); RED BLOOD COUNT 3.59 10^6/uL (4.00-5.40); WHITE BLOOD COUNT 7.2 10^3/uL (4.0-10.0)
== END ==
LOC: M LAB REF 11:50
PROVIDERS: ATTEND Internal Medicine
DX: D50.9 Iron deficiency anemia, unspecified (principal)

== ENCOUNTER 2019-08-01 08:35 | Outpatient (CLI) | payer MEDICARE, MEDICAID ==
[~2019-08-01] VITALS: Ht 170.2 cm; Wt 103.0 kg
[2019-08-01 08:40] VITALS: BP 134/62
[2019-08-01] MEDS ORDERED: IRON SUCROSE 500 MG in NS 250 ML OVER 4 HRS IV ONE (09:00)
[2019-08-01 09:15] VITALS: BP 117/55
[2019-08-01 10:15] VITALS: BP 125/60
[2019-08-01 11:15] VITALS: BP 114/56
[2019-08-01 12:15] VITALS: BP 159/69
[2019-08-01] MEDS ORDERED: SODIUM CHLORIDE 0.9% INJ 10 ML SYR IV PRN (13:30)
[2019-08-01 13:35] VITALS: BP 132/61
[2019-08-02] MEDS ORDERED: SODIUM CHLORIDE 0.9% INJ 10 ML SYR IV SCH (09:00)
== END 2019-08-01 13:35 | disposition home or self-care (01) ==
LOC: M INFU 08:35
PROVIDERS: ATTEND Internal Medicine
DX: D50.9 Iron deficiency anemia, unspecified (principal); D62 Acute posthemorrhagic anemia

== ENCOUNTER → 2019-08-02 | Outpatient (REF) | payer MEDICARE, MEDICAID ==
[2019-08-02 19:06] LABS: BASO # 0.1 10^3/uL (0.0-0.2); BASO % 1.5 % (0.0-1.0); EOS # 0.2 10^3/uL (0.0-0.5); EOS % 2.6 % (0.0-3.0); HEMATOCRIT 36.5 % (36.0-47.0); HEMOGLOBIN 9.9 g/dl (12.0-15.5); LYMPH # 1.7 10^3/uL (1.5-5.0); LYMPH % 26.4 % (24.0-44.0); MEAN CORPUSCULAR HEMOGLOBIN 24.5 pg (27.0-33.0); MEAN CORPUSCULAR HGB CONC 27.1 g/dl (32.0-36.5); MEAN CORPUSCULAR VOLUME 90.3 fl (80.0-96.0); MONO # 0.6 10^3/uL (0.0-0.8); MONO % 9.4 % (0.0-5.0); NEUTROPHILS # 3.8 10^3/uL (1.5-8.5); NEUTROPHILS % 59.5 % (36.0-66.0); PLATELET COUNT, AUTOMATED 194 10^3/uL (150-450); RED BLOOD COUNT 4.04 10^6/uL (4.00-5.40); WHITE BLOOD COUNT 6.5 10^3/uL (4.0-10.0)
[2019-08-02 19:31] LABS: PERCENT SATURATION 61.6 % (13.2-45.0)
== END ==
LOC: M LAB REF 18:00
PROVIDERS: ATTEND Internal Medicine
DX: D50.9 Iron deficiency anemia, unspecified (principal)

== ENCOUNTER 2019-08-08 09:42 | Outpatient (CLI) | payer MEDICARE, MEDICAID ==
[~2019-08-08] VITALS: Ht 170.2 cm; Wt 111.2 kg
[2019-08-08 09:45] VITALS: BP 134/61
[2019-08-08] MEDS ORDERED: SODIUM CHLORIDE 0.9% INJ 10 ML SYR IV PRN (10:15)
[2019-08-08] MEDS ORDERED: IRON SUCROSE 500 MG in NS 250 ML IV ONE (10:30)
[2019-08-08 10:45] VITALS: BP 127/61
[2019-08-08 11:45] VITALS: BP 123/57
[2019-08-08 12:45] VITALS: BP 141/60
[2019-08-08 13:45] VITALS: BP 133/60
[2019-08-08 14:43] VITALS: BP 127/60
[2019-08-09] MEDS ORDERED: SODIUM CHLORIDE 0.9% INJ 10 ML SYR IV SCH (09:00)
== END 2019-08-08 14:45 | disposition home or self-care (01) ==
LOC: M INFU 09:42
PROVIDERS: ATTEND Internal Medicine
DX: D50.9 Iron deficiency anemia, unspecified (principal); Z88.0 Allergy status to penicillin; Z88.2 Allergy status to sulfonamides; Z88.8 Allergy status to other drugs, medicaments and biological substances; Z91.048 Other nonmedicinal substance allergy status
CPT/HCPCS: 96365; 96366; J1642; J1756

== ENCOUNTER → 2019-08-09 | Outpatient (CLI) | payer MEDICARE, MEDICAID ==
[~2019-08-09] MED LIST changes: -ERYT1OIN26 OS; +ERYT5OIN25 OS
--- NOTE | 2019-08-11 02:34 | ECWPNPC ---
PATIENT NAME: SHIVANI PAYNE I : 1945 GENDER: FEMALE VISIT DATE: 08/09/2019 DISCHARGE DATE: 08/09/19 1017 VISIT LOCKED DATE TIME: PHYSICIAN: CHERIE AMATO RESOURCE: CHERIE AMATO REASON FOR APPOINTMENT 1. 3 MONTH FOLLOW UP - LEFT MESSAGE 08/08/2019 6924 JS HISTORY OF PRESENT ILLNESS HISTORY OF PRESENT ILLNESS: PATIENT IS AGREEABLE TO TELEPHONE VISIT TODAY. CONTINUES WITH CONTINUOUS PAIN THAT SHE DESCRIBES THROBBING IN HER LOWER BACK AND INTO HER RIGHT LEG. RATING PAIN VAS 10/ 10. HISTORY OF MULTIPLE MEDICAL ISSUES. UNSTABLE DIABETES. WAS NOT ABLE TO TOLERATE NUCYNTA AND STATES SHE GOT A RASH.SHE HAS BEEN TRIALED ON MULTIPLE MEDICATIONS BOTH NARCOTIC AND NON NARCOTIC AND HAS HAD SIDE EFFECTS WITH ALL EXCEPT OXYCODONE.HAS HX OF MULTIPLE HOSPITALIZATIONS MOST RECENT DUE TO CHF.BROKE BOTH WRISTS END OF NOVEMBER. PATIENT FALLS FREQUENTLY. DISCUSSED MEDICATION OPTIONS. PAIN THE PATIENT DESCRIBES THE PAIN... FALL RISK SCREENING: SCREENING :NO FALLS REPORTED IN THE LAST YEAR CURRENT MEDICATIONS TAKING LEVAQUIN LEVA-MICHELLE TAKING ONDANSETRON 4 MG TABLET DISPERSIBLE 1 TABLET ON TONGUE ORALLY TWICE DAILY TAKING OMEPRAZOLE 20 MG CAPSULE DELAYED RELEASE 1 CAPSULE ORALLY BID TAKING SCOPOLAMINE BASE 1.5 MG PATCH 72 HOUR 1 PATCH TO SKIN NEEDED TRANSDERMAL TAKING SUCRALFATE 1 GM/10ML SUSPENSION 10 ML ORALLY TWICE A DAY TAKING ALLOPURINOL 300 MG TABLET 1 TABLET ORALLY ONCE A DAY TAKING COLCHICINE 0.6 MG TABLET 1 TABLET ORALLY ONCE A DAY TAKING LACTULOSE 20 GM/30ML SOLUTION 30 ML ORALLY BID TAKING LEVETIRACETAM 500 MG TABLET 1 TABLET ORALLY TWICE A DAY TAKING OXYGEN 2 L NASAL CANNULA PRN TAKING NYSTATIN [id number] UNIT/GM CREAM 1 APPLICATION TO AFFECTED AREA EXTERNALLY TWICE A DAY TAKING CRANBERRY 500 MG CAPSULE 1 CAP(S) ORALLY THREE TIMES A DAY TAKING AMMONIUM LACTATE 12 % CREAM 1 APPLICATION TO AFFECTED AREA EXTERNALLY TWICE A DAY TAKING VITAMIN D (ERGOCALCIFEROL) 12909 UNIT CAPSULE 1 CAPSULE ORALLY MONTHLY TAKING ATORVASTATIN CALCIUM 10 MG TABLET 1 TABLET ORALLY ONCE A DAY TAKING BETAMETHASONE DIPROPIONATE 0.05 % LOTION 1 APPLICATION TO AFFECTED AREA EXTERNALLY ONCE A DAY TAKING CALCITRIOL 0.5 MCG CAPSULE 1 CAPSULE ORALLY 5 DAYS A WEEK TAKING DOCUSATE SODIUM 100 MG CAPSULE 1 CAPSULE NEEDED ORALLY ONCE A DAY TAKING DULOXETINE HCL 60 MG CAPSULE DELAYED RELEASE PARTICLES 1 CAPSULE ORALLY BID TAKING MILK OF MAGNESIA 1200 MG/15ML SUSPENSION 5 ML NEEDED ORALLY FOUR TIMES A DAY TAKING LYRICA 150 MG CAPSULE 1 CAPSULE ORALLY BID TAKING ELIQUIS 5 MG TABLET 1 CAP ORALLY BID TAKING RESTASIS 0.05 % EMULSION 1 DROP INTO AFFECTED EYE OPHTHALMIC TWICE A DAY TAKING BARD URINARY DRAINAGE BAG - MISCELLANEOUS DIRECTED MONTHLY TAKING BARD [id number] LEG BAG - MISCELLANEOUS DIRECTED MONTHLY TAKING BARD LEG BAG STRAPS/FABRIC - MISCELLANEOUS DIRECTED MONTHLY TAKING BARD URETHRAL CATHETER TRAY - KIT 20FR SILICONE CATHETER SUPRAPUBIC MONTHLY TAKING HUMALOG 100 UNIT/ML SOLUTION SLIDING SCALE SUBCUTANEOUS FOUR TIMES DAILY NEEDED TAKING TRESIBA 200 U/ML 100 UNITS SUBCUTANEOUSLY DAILY TAKING OPTIFOAM 4 PAD DIRECTED TOPICALLY DAILY TAKING SPIRONOLACTONE 25 MG TABLET 1 TABLET ORALLY BID TAKING TORSEMIDE 100 MG TABLET 1 TABLET ORALLY ONCE A DAY TAKING TYLENOL 8 HOUR ARTHRITIS PAIN 650 MG TABLET EXTENDED RELEASE 2 TABLETS NEEDED ORALLY EVERY 8 HRS TAKING ATENOLOL 25 MG 1 TAB ORAL BID TAKING ALBUTEROL SOLUTION ORAL NEB TREATMENTS QID TAKING DIFLUCAN 150 MG TABLET 1 TABLET ORALLY ONCE PER WEEK X 3 TAKING PAPER TAPE 1"X12YD - TAPE DIRECTED FOR SUPRAPUBIC CATHETER DRESSING DAILY TAKING LATEX GLOVES MEDIUM - MISCELLANEOUS DIRECTED FOR DRESSING CHANGES DAILY TAKING BABY WIPES - MISCELLANEOUS DIRECTED FOR DRESSING CHANGES DAILY TAKING CURITY GAUZE SPONGE 4"X4" PAD DIRECTED FOR DRESSING CHANGES DAILY TAKING TRANQUILITY VINYL GLOVES MED - MISCELLANEOUS DIRECTED FOR SUPRAPUBIC CATHETER DRESSING CHANGES NEEDED TAKING ROPINIROLE HCL 2 MG TABLET 1 TABLET 1 TO 3 HOURS BEFORE BEDTIME ORALLY BEFORE BEDTIME TAKING LIDODERM 5 % PATCH 1 PATCH REMOVE AFTER 12 HOURS EXTERNALLY FOR LOW BACK AREA ONCE A DAY FOR 12 HRS TAKING BACITRACIN 500 UNIT/GM OINTMENT 1 APPLICATION EXTERNALLY ONCE A DAY TAKING CLOTRIMAZOLE 1 % CREAM 1 APPLICATION EXTERNALLY TWICE A DAY TAKING PERCOCET 5-325 MG TABLET 1 TABLET NEEDED ORALLY Q8H PRN MDD3 #45 TAB SHOULD LAST 30 DAYS NOT-TAKING DIFLUCAN 150 MG TABLET 1 TABLET ORALLY ONCE NOT-TAKING PREDNISONE MEDICATION LIST REVIEWED AND RECONCILED WITH THE PATIENT PAST MEDICAL HISTORY NEUROGENIC URINARY RETENTION RECURRENT UTI HYPERTENSION INCONTIENCE,GERD MIGRAINE HX OF HEPATITIS A SEIZURES CATARACTS DVT LEFT LEG TX XARELTO CAUSED GI BLEED/ ALLYSSA FILTER ILEUS [address] TURNER EGD AND COLONOSCOPY TYPE 2 DIABETES ASTHMA KIDNEY DISEASE ARTHRITIS CHF HAS MARCAINE/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 BACK THAT AT PRESENT TIME IS TURNED DOWN TO LOWEST SETTING JUST TO KEEP OPEN PNEUMONIA BASAL CELL CARCINOMA REMOVED FOR FACE LEFT EYE CYCSTS REMOVED EBLS BILATERAL WRIST FRACTUES 11/2018 ALLERGIES PENTAZOCINE-NALOXONE: HIVES - ALLERGY CHLORPROMAZINE: HIVES - ALLERGY LORATADINE: HIVES - ALLERGY PENICILLIN (FOR ALLERGIES USE ONLY): HIVES - ALLERGY CEPHALOSPORINS: HIVES - ALLERGY SULFAMETHOXAZOLE-TMP DS: HIVES - ALLERGY NUCYNTA: RASH - ALLERGY CLARITIN: HIVES - ALLERGY SURGICAL HISTORY HYSTERECTOMY AGE 22 L4 -5 DISKECTOMY DIAPHRAGM PARALYZED- RIGHT LOWER LUNG R-BRADY 2013 HITAL HERNIA REPAIR LEFT ANKLE FX- FUSION INFUSAPORT REMOVED INFUSAPORT PLACED INFUSAPORT AND IMPLANTED PAIN PUMP RIGHT HIP REPLACEMENT BASAL CELL CARCINOMA REMOVED FROM FACE LEFT EYE CYSTS REMOVED OPEN CYSTOTOMY WITH 20FR SUPRAPUBIC CATHETER PLACEMENT 7CC BALLOON = URINARY RETENTION WT FREQ UTIS = DR. MERCER 07/28/2018 FAMILY HISTORY FATHER: 80 YRS, DUE TO HEART ATTACK, STROKES, ANEURYSM, DIAGNOSED WITH UNSPECIFIED HEART DISEASE, OTHER SPECIFIED CONDITIONS INFLUENCING HEALTH STATUS MOTHER: 59 YRS, DUE TO METASIS CANCER, LUNG AND LIVER CANCER, OTHER MALIGNANT NEOPLASM OF UNSPECIFIED SITE SON(S): ALIVE, SON: = SUICIDE AT AGE 34YRS OLD. 2 BROTHER(S) , 2 SISTER(S) - HEALTHY. 2 SON(S) - HEALTHY. SOCIAL HISTORY GENERAL: TOBACCO USE ARE YOU A:NONSMOKER LATEX QUESTIONNAIRE LATEX ALLERGY : HAVE YOU EVER DEVELOPED ANY TYPE OF REACTION AFTER HANDLING LATEX PRODUCTS SUCH RUBBER GLOVES, CONDOMS, DIAPHRAGMS, BALLOONS, SOCKS, OR UNDERWEAR?NO LATEX ALLERGY : HAVE YOU EVER DEVELOPED ANY TYPE OF REACTION DURING OR AFTER DENTAL APPOINTMENT, VAGINAL/RECTAL EXAMINATION, SURGICAL PROCEDURE, OR ANY OTHER EXPOSURE?NO DATE ASKED : 07/26/2019 LATEX RISK : HAVE YOU EVER HAD ANY DIFFICULTY BREATHING OR HIVES AFTER EATING OR HANDLING ANY FRUITS, OR VEGETABLES; SUCH KIWI, BANANAS, STONE FRUITS, OR CHESTNUTSYES - PLEASE INDICATE : KIWI LATEX RISK : DO YOU HAVE A PREVIOUS PERSONAL HISTORY OF MORE THAN NINE SURGERIES, SPINA BIFIDA, OR REPEATED CATHERIZATIONS? YES - PLEASE INDICATE : > 9 SURGERIES, REPEATED CATHETERIZATIONS SP CATHETER LATEX RISK : ARE YOU FREQUENTLY EXPOSED TO LATEX PRODUCTS IN YOUR OCCUPATION?NO LUNG CANCER SCREENING SMOKING STATUS:NON SMOKER ALCOHOL SCREENING DID YOU HAVE A DRINK CONTAINING ALCOHOL IN THE PAST YEAR?NO POINTS0 INTERPRETATIONNEGATIVE RECREATIONAL DRUG USE DRUG USE?NO CAFFEINE CAFFEINE USE?NO COFFEE SEXUAL HX HAD SEX IN THE LAST 12 MONTHS (VAGINAL, ORAL, OR ANAL)?NO HAVE YOU EVER HAD AN STD?NO HIV / HEP-C SCREENING HIV TEST OFFERED TO PATIENT:NO HEP-C TEST OFFERED TO PATIENT:NO BUDDHIST [id number] ORIENTAL ORTHODOX LANGUAGE LANGUAGES SPOKEN:CHILEAN EDUCATION LEVEL OF EDUCATION:HIGH SCHOOL LEARNING BARRIERS / SPECIAL NEEDS CHANGE FROM LAST VISIT?NO BARRIERS TO LEARNING?NO HEARING IMPAIRED?NO VISION IMPAIRED?NO COGNITIVELY IMPAIRED?NO READINESS TO LEARN?YES LEARNING PREFERENCES?NO EMOTIONAL BARRIERS?NO SPECIAL DEVICES?YES :WHEELCHAIR, BRACE SHOE CUTTER NEEDED?NO DOMESTIC VIOLENCE DO YOU FEEL SAFE IN YOUR ENVIRONMENT?YES OCCUPATION: RETIRED. DIET: CARBOHYDRATE CONTROLLED, NO CONCENTRATED SWEETS.. EXERCISE: NONE. MARITAL STATUS: .. OTHERS AT HOME: EX . NEW PATIENT PAIN DIARY TODAY'S VISIT 08/09/19 PATIENT DESCRIBES PAIN :HAVE IT ALL THE TIME, THROBBING FROM 0-10, WHAT LEVEL IS YOUR PAIN TODAY?10 PRECIPITATING FACTORS ACTIVITY ALLEVIATING FACTORS REST IMPACT ON FUNCTION YES PAIN CLINIC PFS, CLERGY, PUBLIC HEALTH REFERRALS PFS REFERRAL NEEDED?NO CLERGY REFERRAL NEEDED?NO PUBLIC HEALTH REFERRAL NEEDED?NO WAS THE PROVIDER NOTIFIED OF ANY PERTINENT INFO? N/A HAS THE PATIENT BEEN EDUCATED REGARDING HIS/HER PLAN OF CARE?YES HAS THE PATIENT BEEN EDUCATED REGARDING PAIN, THE RISK FOR PAIN, THE IMPORTANCE OF EFFECTIVE PAIN MANAGEMENT, AND THE PAIN ASSESSMENT PROCESS?YES ADVANCE DIRECTIVE ADVANCE DIRECTIVE DISCUSSED WITH PATIENT:YES STATES SHE HAS HCP:ELIZABETH PAYNE [phone] HAS MOLST FORMREVIEWED WITH PT 05/08/18 1324 BVREVIEWED WITH PT 10/16/18 1400 BVREVIEWE WITH PATIENT 01/10/19 1344 NLJ. HOSPITALIZATION/MAJOR DIAGNOSTIC PROCEDURE RELATED FOR SURGERY ADMITTED DUE TO TROUBLE BREATHING 2012 ADMITTED DUE TO CHF ADMITTED OTHER TIMES WELL DUE TO MIGRAINE, SEIZURES, AND ETC ADMITTED DUE TO COPD, CHF, BLOOD INFECTION 04/2015 ADMITTED FOR PORT PLACEMENT 06/2015 FALL 08/2015 PNEOMINA, FLU, CHF, HYPERGYLCEMIA, DEHYDRATION 05/2016 HAD TO HAVE BLOOD TRANSFUSION 04/2017 BLOOD TRANSFUSION 06/2017 SEVERE SOB, LIGHT-HEADEDNESS, CHF, DECREASED FE 08/2017 SEPSIS 04/2018 UTI 05/18/18 BLOOD TRANSFUSION/ IRON 09/2018 BLOOD TRANSFUSION/IRON 10/2018 UTI 11/2018 CHF 04/2019 BLOOD SUGAR PROBLEM 07/2019 REVIEW OF SYSTEMS REVIEWED BY: PROVIDER: CHERIE SPENCER . CONSTITUTIONAL: ANY CHANGE IN YOUR MEDICAL CONDITION? NO . CHILLS NO . FEVER NO . INFECTION: DO YOU HAVE NEW INFECTIONS? SUSPECTED INFECTION EXTERIOR SUPERPUBIC DR MERCER AWARE, ADVISED TO USE OINTMENTS . DO YOU HAVE HISTORY OF MRSA? NO . MUSCULOSKELETAL: ANY NEW PATTERNS OF PAIN OR NUMBNESS? NO . GASTROENTEROLOGY: ANY NEW CHANGE IN BOWEL CONTROL? NO . GENITOURINARY: ANY NEW CHANGE IN BLADDER CONTROL? NO . IS THERE A CHANCE YOU COULD BE ? NO . HEMATOLOGY/LYMPH: DO YOU TAKE ANY BLOOD THINNERS? (FOR EXAMPLE- COUMADIN, PLAVIX, AGGRENOX, PLATEL, PRADAXA, OR XARELTO) ELLIQUIS . WHEN WAS YOUR LAST DOSE? DATE: TIME: . NEUROLOGY: HAVE YOU FALLEN IN THE PAST 12 MONTHS? YES, PRIOR TO LAST VISIT . ANY NEW EXTREMITY NUMBNESS OR WEAKNESS? NO . CARDIOLOGY: DO YOU HAVE A PACEMAKER OR DEFIBRILLATOR? NO . RESPIRATORY: HAVE YOU BEEN SICK IN THE PAST WEEK? NO . FEVER NO . FLU LIKE SYMPTOMS? NO . COUGH NO . INTEGUMENTARY: DO YOU HAVE ANY RASHES OR OPEN SORES? YES, ABRASION AT SUPER PUBIC CATHETER . ALLERGIC/IMMUNO: ARE YOU ALLERGIC TO IV DYE? NO . ANY NEW ALLERGIES? NO . PSYCHIATRIC: DO YOU HAVE THOUGHTS OF HURTING YOURSELF OR SOMEONE ELSE? NO . ARE YOU ABUSED, NEGLECTED, OR IN AN UNSAFE ENVIRONMENT? NO . ENDOCRINOLOGY: ARE YOU DIABETIC? YES . OTHER: DO YOU NEED ANY PRESCRIPTIONS? NO . IF YES, PLEASE LIST: ____ . ANY NEW PROBLEMS WITH YOUR MEDICATIONS? NO . WHEN DID YOU LAST EAT? ____ . WHEN DID YOU LAST DRINK? ____ . WHAT DID YOU LAST DRINK? ____ . NAME OF PERSON DRIVING YOU HOME? ____ . DO YOU HAVE ANY OTHER QUESTIONS OR CONCERNS NO . ASSESSMENTS CHRONIC PAIN DISORDER - G89.4 (PRIMARY) CHRONICALLY ON OPIATE THERAPY - Z79.891 TREATMENT CHRONIC PAIN DISORDER NOTES: PATIENT WILL CONTINUE WITH USING OXYCODONE 5/325 A HALF A TABLET TO 1 WHOLE TABLET UP TO 3 TIMES DAILY. SHE IS USING THIS INFREQUENTLY. SHE IS AWARE OF OUR LIMITATIONS IN REGARDS TO CHOICES FOR PAIN MEDICATIONS. SHE IS AWARE OF THE POTENTIAL RISKS ASSOCIATED WITH USING HIGHER DOSES OF OPIATES. THEREFORE, I AM GOING TO CONTINUE AND PROBABLY ALWAYS RECOMMEND HER CURRENT THERAPY. SHE DOESN'T RESPOND WELL TO INJECTIONS WITHOUT STEROIDS. DIABETES IS NOT STABLE AND STEROID USE WOULD NOT BE RECOMMENDED. FOLLOW-UP IS SCHEDULED IN 3 MONTHS AT THE PAIN CENTER. TOTAL TIME SPENT DURING TELEPHONE VISIT WAS APPROXIMATELY 12 MINUTES. DISPOSITION & COMMUNICATION FOLLOW UP 3 MONTHS (REASON: MED MGMT) ELECTRONICALLY SIGNED BY TJ KELLER ON 08/10/2019 AT 01:44 PM EDT DISCLAIMER : THIS IS A VISIT SUMMARY EXTRACTED FROM THE [employer] CHART. IT IS NOT A COPY OF THE [employer] PROGRESS NOTE. JOSE R
== END ==
LOC: M PAIN 09:45
PROVIDERS: ATTEND Nurse Practitioner Family
DX: G89.4 Chronic pain syndrome (principal); I10 Essential (primary) hypertension; K21.9 Gastro-esophageal reflux disease without esophagitis; G43.909 Migraine, unspecified, not intractable, without status migrainosus; Z86.718 Personal history of other venous thrombosis and embolism; E11.9 Type 2 diabetes mellitus without complications; J45.909 Unspecified asthma, uncomplicated; Z96.641 Presence of right artificial hip joint; Z88.0 Allergy status to penicillin; Z88.1 Allergy status to other antibiotic agents; Z88.5 Allergy status to narcotic agent; Z88.8 Allergy status to other drugs, medicaments and biological substances; Z79.01 Long term (current) use of anticoagulants; Z79.4 Long term (current) use of insulin; Z79.899 Other long term (current) drug therapy

== ENCOUNTER → 2019-08-09 | Outpatient (REF) | payer MEDICARE, MEDICAID ==
[2019-08-09 13:15] LABS: BASO # 0.1 10^3/uL (0.0-0.2); EOS # 0.2 10^3/uL (0.0-0.5); EOS % 3.9 % (0.0-3.0); HEMATOCRIT 36.8 % (36.0-47.0); HEMOGLOBIN 10.2 g/dl (12.0-15.5); LYMPH # 1.4 10^3/uL (1.5-5.0); LYMPH % 24.1 % (24.0-44.0); MEAN CORPUSCULAR HEMOGLOBIN 25.8 pg (27.0-33.0); MEAN CORPUSCULAR HGB CONC 27.7 g/dl (32.0-36.5); MEAN CORPUSCULAR VOLUME 93.2 fl (80.0-96.0); MONO # 0.5 10^3/uL (0.0-0.8); MONO % 8.5 % (0.0-5.0); NEUTROPHILS # 3.6 10^3/uL (1.5-8.5); NEUTROPHILS % 61.7 % (36.0-66.0); PLATELET COUNT, AUTOMATED 141 10^3/uL (150-450); RED BLOOD COUNT 3.95 10^6/uL (4.00-5.40); WHITE BLOOD COUNT 5.9 10^3/uL (4.0-10.0)
[2019-08-09 13:46] LABS: ALBUMIN 3.6 GM/DL (3.2-5.2); BILIRUBIN,TOTAL 0.3 MG/DL (0.2-1.0); CALCIUM LEVEL 9.7 MG/DL (8.8-10.2); CREATININE FOR GFR 1.73 MG/DL (0.55-1.30); GLOMERULAR FILTRATION RATE 30.6 (>39); POTASSIUM SERUM 3.6 MEQ/L (3.5-5.1); TOTAL PROTEIN 6.4 GM/DL (6.4-8.2)
== END ==
LOC: M LAB REF 12:42
PROVIDERS: ATTEND Internal Medicine
DX: D50.9 Iron deficiency anemia, unspecified (principal)

== ENCOUNTER → 2019-08-21 | Outpatient (REF) | payer MEDICARE, MEDICAID ==
[2019-08-21 18:00] LABS: BASO # 0.1 10^3/uL (0.0-0.2); EOS # 0.1 10^3/uL (0.0-0.5); EOS % 2.7 % (0.0-3.0); HEMATOCRIT 39.6 % (36.0-47.0); HEMOGLOBIN 11.5 g/dl (12.0-15.5); LYMPH # 1.6 10^3/uL (1.5-5.0); LYMPH % 32.2 % (24.0-44.0); MEAN CORPUSCULAR HEMOGLOBIN 27.7 pg (27.0-33.0); MEAN CORPUSCULAR VOLUME 95.4 fl (80.0-96.0); MONO # 0.4 10^3/uL (0.0-0.8); MONO % 8.4 % (0.0-5.0); NEUTROPHILS # 2.7 10^3/uL (1.5-8.5); NEUTROPHILS % 55.5 % (36.0-66.0); PLATELET COUNT, AUTOMATED 163 10^3/uL (150-450); RED BLOOD COUNT 4.15 10^6/uL (4.00-5.40); WHITE BLOOD COUNT 4.9 10^3/uL (4.0-10.0)
[2019-08-21 18:29] LABS: CALCIUM LEVEL 9.1 MG/DL (8.8-10.2); CREATININE FOR GFR 1.46 MG/DL (0.55-1.30); GLOMERULAR FILTRATION RATE 37.2 (>39); PERCENT SATURATION 14.8 % (13.2-45.0); POTASSIUM SERUM 3.7 MEQ/L (3.5-5.1)
== END ==
LOC: M LAB REF 17:01
PROVIDERS: ATTEND Internal Medicine
DX: L89.322 Pressure ulcer of left buttock, stage 2 (principal); D50.9 Iron deficiency anemia, unspecified; N18.4 Chronic kidney disease, stage 4 (severe)

== ENCOUNTER → 2019-09-06 | Outpatient (REF) | payer MEDICARE, MEDICAID ==
[2019-09-06 13:38] LABS: PTH INTACT 99.1 PG/ML (18.5-88.0); URIC ACID 5.4 MG/DL (2.6-6.0)
[2019-09-07 08:35] LABS: MAGNESIUM LEVEL 2.3 MG/DL (1.8-2.4)
== END ==
LOC: M LAB REF 12:35
PROVIDERS: ATTEND Nurse Practitioner Family
DX: N25.81 Secondary hyperparathyroidism of renal origin (principal); E83.42 Hypomagnesemia; M1A.30X0 Chronic gout due to renal impairment, unspecified site, without tophus (tophi)

== ENCOUNTER → 2019-09-06 | Outpatient (REF) | payer MEDICARE, MEDICAID ==
[2019-09-06 13:22] LABS: BASO # 0.1 10^3/uL (0.0-0.2); BASO % 1.1 % (0.0-1.0); EOS # 0.2 10^3/uL (0.0-0.5); EOS % 3.1 % (0.0-3.0); HEMATOCRIT 40.1 % (36.0-47.0); HEMOGLOBIN 12.1 g/dl (12.0-15.5); LYMPH # 1.7 10^3/uL (1.5-5.0); LYMPH % 31.4 % (24.0-44.0); MEAN CORPUSCULAR HEMOGLOBIN 28.5 pg (27.0-33.0); MEAN CORPUSCULAR HGB CONC 30.2 g/dl (32.0-36.5); MEAN CORPUSCULAR VOLUME 94.4 fl (80.0-96.0); MONO # 0.5 10^3/uL (0.0-0.8); MONO % 9.4 % (0.0-5.0); NEUTROPHILS % 54.5 % (36.0-66.0); PLATELET COUNT, AUTOMATED 149 10^3/uL (150-450); RED BLOOD COUNT 4.25 10^6/uL (4.00-5.40); WHITE BLOOD COUNT 5.5 10^3/uL (4.0-10.0)
[2019-09-06 13:53] LABS: CALCIUM LEVEL 9.7 MG/DL (8.8-10.2); CREATININE FOR GFR 1.71 MG/DL (0.55-1.30); PERCENT SATURATION 15.2 % (13.2-45.0); POTASSIUM SERUM 3.7 MEQ/L (3.5-5.1)
== END ==
LOC: M LAB REF 12:39
PROVIDERS: ATTEND Internal Medicine
DX: L89.322 Pressure ulcer of left buttock, stage 2 (principal); D50.9 Iron deficiency anemia, unspecified; N18.4 Chronic kidney disease, stage 4 (severe); N25.81 Secondary hyperparathyroidism of renal origin; E83.42 Hypomagnesemia; M1A.30X0 Chronic gout due to renal impairment, unspecified site, without tophus (tophi)

== ENCOUNTER → 2019-09-26 | Outpatient (CLI) | payer MEDICARE ==
[~2019-09-26] MED LIST changes: +KETO2SHA8 TOP; -KETO2SHA9 TOP; -LACT10SO29 PO; +LACT20EL PO
--- NOTE | 2019-09-26 13:58 | REPMRS ---
Patient History The patient states she has not had a clinical breast exam in over a year. Patient is postmenopausal. Family history of lung cancer in mother, lung cancer in brother. Digital Woman Screen Mammo: September 26, 2019 - Exam #: [id number] Bilateral CC and MLO view(s) were taken. Technologist: Debbie Pearson Technologist Prior study comparison: September 29, 2016, bilateral digital mammo screening bilat, performed at [facility]. May 24, 2012, bilateral digital woman screen mammo, performed at [facility]. May 10, 2011, bilateral digital woman screen mammo, performed at [facility]. FINDINGS: There are scattered fibroglandular densities. The Volpara volumetric breast density category is:B. There is a stable intramammary lymph node on the left. Limited coverage of right breast parenchyma was achieved due to patient immobility and mediolateral technique. There has been no change in the appearance of the mammogram from the prior studies. There is a mild amount of scattered fibroglandular density which is fairly symmetric. There is no interval development of dominant mass, architectural distortion, or grouped microcalcification suggestive of malignancy. 3-D tomosynthesis shows no additional findings. Assessment: BI-RADS/ACR category 2 mammogram. Benign Findings. Recommendation Routine screening mammogram of both breasts in 1 year (for women over age 40). This patient's Lifetime Breast Cancer Risk is estimated at 1.5 %. This mammogram was interpreted with the aid of an FDA-approved computer-aided dectection system. Electronically Signed By: Arnold Wang MD 09/26/19 9740
== END ==
LOC: M WHC 12:11
PROVIDERS: ATTEND Specialist
DX: Z12.31 Encounter for screening mammogram for malignant neoplasm of breast (principal)

== ENCOUNTER → 2019-10-04 | Outpatient (REF) | payer MEDICARE ==
[~2019-10-04] MED LIST changes: +ACET650T61 PO; +AMLO1TAB24 PO; -AMLO5TAB6 PO; -TYLE650T35 PO
[2019-10-04 12:48] LABS: BASO % 0.5 % (0.0-1.0); EOS % 0.3 % (0.0-3.0); HEMATOCRIT 37.7 % (36.0-47.0); HEMOGLOBIN 11.6 g/dl (12.0-15.5); LYMPH # 1.2 10^3/uL (1.5-5.0); LYMPH % 19.6 % (24.0-44.0); MEAN CORPUSCULAR HGB CONC 30.8 g/dl (32.0-36.5); MEAN CORPUSCULAR VOLUME 91.1 fl (80.0-96.0); MONO # 0.5 10^3/uL (0.0-0.8); MONO % 8.6 % (0.0-5.0); NEUTROPHILS # 4.1 10^3/uL (1.5-8.5); NEUTROPHILS % 70.2 % (36.0-66.0); PLATELET COUNT, AUTOMATED 152 10^3/uL (150-450); RED BLOOD COUNT 4.14 10^6/uL (4.00-5.40); WHITE BLOOD COUNT 5.9 10^3/uL (4.0-10.0)
[2019-10-04 13:23] LABS: ERYTHROCYTE SEDIMENTATION RATE 22 mm/hr (0-30)
== END ==
LOC: M LAB REF 12:32
PROVIDERS: ATTEND Orthopaedic Surgery
DX: M16.12 Unilateral primary osteoarthritis, left hip (principal)

== ENCOUNTER → 2019-10-04 | Outpatient (REF) | payer MEDICARE ==
[2019-10-04 12:54] LABS: BASO % 0.5 % (0.0-1.0); EOS % 0.2 % (0.0-3.0); HEMATOCRIT 37.6 % (36.0-47.0); HEMOGLOBIN 11.7 g/dl (12.0-15.5); LYMPH # 1.2 10^3/uL (1.5-5.0); LYMPH % 19.5 % (24.0-44.0); MEAN CORPUSCULAR HEMOGLOBIN 28.5 pg (27.0-33.0); MEAN CORPUSCULAR HGB CONC 31.1 g/dl (32.0-36.5); MEAN CORPUSCULAR VOLUME 91.5 fl (80.0-96.0); MONO # 0.5 10^3/uL (0.0-0.8); MONO % 8.6 % (0.0-5.0); NEUTROPHILS # 4.2 10^3/uL (1.5-8.5); NEUTROPHILS % 69.7 % (36.0-66.0); PLATELET COUNT, AUTOMATED 151 10^3/uL (150-450); RED BLOOD COUNT 4.11 10^6/uL (4.00-5.40)
[2019-10-04 13:30] LABS: ALBUMIN 3.8 GM/DL (3.2-5.2); BILIRUBIN,TOTAL 0.3 MG/DL (0.2-1.0); CALCIUM LEVEL 9.8 MG/DL (8.8-10.2); CREATININE FOR GFR 1.77 MG/DL (0.55-1.30); GLOMERULAR FILTRATION RATE 29.8 (>39); PERCENT SATURATION 8.1 % (13.2-45.0); TOTAL PROTEIN 6.7 GM/DL (6.4-8.2)
== END ==
LOC: M LAB REF 12:36
PROVIDERS: ATTEND Internal Medicine
DX: I48.0 Paroxysmal atrial fibrillation (principal); I13.0 Hypertensive heart and chronic kidney disease with heart failure and stage 1 through stage 4 chronic kidney disease, or unspecified chronic kidney disease; E11.65 Type 2 diabetes mellitus with hyperglycemia

== ENCOUNTER 2019-10-17 11:12 | Outpatient (CLI) | payer MEDICARE ==
[~2019-10-17] VITALS: Ht 170.2 cm; Wt 111.2 kg
[2019-10-17 11:00] VITALS: BP 119/57
[2019-10-17] MEDS ORDERED: SODIUM CHLORIDE 0.9% INJ 10 ML SYR IV PRN (11:15)
[2019-10-17] MEDS ORDERED: IRON SUCROSE 25 MG in NS 25 ML IV ONE (11:30)
[2019-10-17] MEDS ORDERED: IRON SUCROSE 500 MG in NS 250 ML IV ONE (11:45)
[2019-10-17] MEDS ORDERED: IRON SUCROSE 475 MG in NS 250 ML IV ONE (12:30)
[2019-10-17 14:20] VITALS: BP 107/54
[2019-10-17 16:45] VITALS: BP 112/56
[2019-10-18] MEDS ORDERED: SODIUM CHLORIDE 0.9% INJ 10 ML SYR IV SCH (09:00)
== END 2019-10-17 16:45 | disposition home or self-care (01) ==
LOC: M INFU 11:12
PROVIDERS: ATTEND Internal Medicine
DX: D50.9 Iron deficiency anemia, unspecified (principal); Z79.899 Other long term (current) drug therapy
CPT/HCPCS: 96365; 96366; J1642; J1756

== ENCOUNTER → 2019-10-22 | Outpatient (CLI) | payer MEDICARE, MEDICAID ==
--- NOTE | 2019-10-22 15:28 | REP ---
THREE-PHASE BONE SCAN OF THE HIPS: HISTORY: Presence of right artificial hip joint. Comparison study January 09, 2019. Comparison pelvic radiograph May 29, 2019. TECHNIQUE: 21.3 mCi technetium 99m MDP is injected and standard three-phase imaging was acquired. SCINTIGRAPHIC FINDINGS: Anterior and posterior flow images are unremarkable. Blood pool images show early of bladder add drainage via Al catheter and photopenia related to the right hip arthroplasty. Delayed scan images demonstrate photopenia in the right hip unchanged from the comparison study. There is a very subtle focus of increased uptake on anterior and LYONS projection delayed images at the tip of the femoral stem on the right. This could be early evidence of loosening. There is a subtle change on the right lateral projection as well. IMPRESSION: Subtle changes at the tip of the femoral stem of the right hip arthroplasty may reflect early loosening. Electronically Signed by Hua Wang MD 10/22/2019 04:19 P
== END ==
LOC: M RAD 10:44
PROVIDERS: ATTEND Orthopaedic Surgery
DX: Z96.641 Presence of right artificial hip joint (principal)
CPT/HCPCS: 78315; A9503

== ENCOUNTER → 2019-11-05 | Outpatient (POV) | payer MEDICARE, MEDICAID | LOC: M PAIN 09:00 | PROVIDERS: ATTEND Nurse Practitioner Family | DX: M54.2 Cervicalgia (principal); Z79.891 Long term (current) use of opiate analgesic ==

== ENCOUNTER 2019-11-07 10:33 | Outpatient (CLI) | payer MEDICARE, MEDICAID ==
[2020-01-04 21:21] LABS: ALBUMIN 3.6 GM/DL (3.2-5.2); BILIRUBIN,TOTAL 0.2 MG/DL (0.2-1.0); CALCIUM LEVEL 9.8 MG/DL (8.8-10.2); CREATININE FOR GFR 1.76 MG/DL (0.55-1.30); PERCENT SATURATION 12.1 % (13.2-45.0); POTASSIUM SERUM 3.8 MEQ/L (3.5-5.1); TOTAL PROTEIN 6.7 GM/DL (6.4-8.2)
[2020-01-14 08:31] LABS: HEMATOCRIT 42.3 % (36.0-47.0); HEMOGLOBIN 12.8 g/dl (12.0-15.5); MEAN CORPUSCULAR HEMOGLOBIN 28.6 pg (27.0-33.0); MEAN CORPUSCULAR HGB CONC 30.3 g/dl (32.0-36.5); MEAN CORPUSCULAR VOLUME 94.6 fl (80.0-96.0); PLATELET COUNT, AUTOMATED 148 10^3/uL (150-450); RED BLOOD COUNT 4.47 10^6/uL (4.00-5.40)
== END 2019-11-07 11:00 | disposition home or self-care (01) ==
LOC: M INFU 10:33
PROVIDERS: ATTEND Internal Medicine
DX: D50.9 Iron deficiency anemia, unspecified (principal)
CPT/HCPCS: 36591; 80053; 83550; 85027; 96523; J1642

== ENCOUNTER → 2019-11-15 | Outpatient (REF) | payer MEDICARE, MEDICAID ==
[2019-12-19 11:51] LABS: APPEARANCE, URINE CLOUDY (CLEAR); BACTERIA, URINE AUTO 1+ (NEGATIVE); BILIRUBIN, URINE AUTO NEGATIVE (NEGATIVE); BLOOD, URINE BLOOD 3+ (NEGATIVE); COLOR, URINE RED (YELLOW); GLUCOSE, URINE (UA) AUTO 1+ mg/dL (NEGATIVE); KETONE, URINE AUTO NEGATIVE (NEGATIVE); LEUKOCYTE ESTERASE, URINE AUTO 2+ (NEGATIVE); NITRITE, URINE AUTO NEGATIVE (NEGATIVE); PROTEIN, URINE AUTO 1+ mg/dL (NEGATIVE); RBC, URINE AUTO TNTC /HPF (0-3); SQUAMOUS EPITHELIAL CELL UR AU 0 /HPF (0-6); UROBILINOGEN, URINE AUTO 0.2 mg/dL (0.0-2.0); WBC, URINE AUTO 98 /HPF (0-3)
== END ==
LOC: M SMT 07:08
PROVIDERS: ATTEND Urology
DX: R33.9 Retention of urine, unspecified (principal); N39.0 Urinary tract infection, site not specified

== ENCOUNTER 2019-11-28 14:57 | Outpatient (CLI) | payer MEDICARE, MEDICAID ==
[~2019-11-28] VITALS: Ht 170.2 cm; Wt 111.2 kg
[~2019-11-28 14:57] MED LIST changes: +SODIUM CHLORIDE 0.9% INJ 10 ML SYR IV SCH
[2019-11-28 15:15] VITALS: BP 106/69
[2019-11-28 16:07] LABS: BASO # 0.1 10^3/uL (0.0-0.2); BASO % 0.8 % (0.0-1.0); EOS # 0.1 10^3/uL (0.0-0.5); EOS % 0.9 % (0.0-3.0); HEMATOCRIT 46.1 % (36.0-47.0); HEMOGLOBIN 14.2 g/dl (12.0-15.5); LYMPH # 2.1 10^3/uL (1.5-5.0); LYMPH % 22.9 % (24.0-44.0); MEAN CORPUSCULAR HEMOGLOBIN 28.2 pg (27.0-33.0); MEAN CORPUSCULAR HGB CONC 30.8 g/dl (32.0-36.5); MEAN CORPUSCULAR VOLUME 91.7 fl (80.0-96.0); NEUTROPHILS # 5.7 10^3/uL (1.5-8.5); NEUTROPHILS % 63.4 % (36.0-66.0); PLATELET COUNT, AUTOMATED 175 10^3/uL (150-450); RED BLOOD COUNT 5.03 10^6/uL (4.00-5.40)
[2019-11-28 16:28] LABS: CALCIUM LEVEL 9.6 MG/DL (8.8-10.2); CREATININE FOR GFR 2.06 MG/DL (0.55-1.30); PERCENT SATURATION 10.6 % (13.2-45.0); POTASSIUM SERUM 4.1 MEQ/L (3.5-5.1)
== END 2019-11-28 15:45 | disposition home or self-care (01) ==
LOC: M INFU 14:57
PROVIDERS: ATTEND Internal Medicine
DX: D50.9 Iron deficiency anemia, unspecified (principal); Z79.899 Other long term (current) drug therapy

== ENCOUNTER 2019-11-29 07:06 | Outpatient (CLI) | payer MEDICARE, MEDICAID ==
[~2019-11-29] VITALS: Ht 170.2 cm; Wt 111.0 kg
[~2019-11-29 07:06] MED LIST changes: -SODIUM CHLORIDE 0.9% INJ 10 ML SYR IV SCH
[2019-11-29 07:14] VITALS: BP 137/65
[2019-11-29] MEDS ORDERED: SODIUM CHLORIDE 0.9% INJ 10 ML SYR IV PRN (07:45)
[2019-11-29] MEDS ORDERED: MEROPENEM INJ 1 GM in IV 1 EA IV ONE (07:45)
[2019-11-29] MEDS: SODIUM CHLORIDE 0.9% INJ 10 ML SYR IV SCH ×2 (07:54→08:28)
[2019-11-29 08:28] VITALS: BP 135/63
== END 2019-11-29 08:50 | disposition home or self-care (01) ==
LOC: M INFU 07:06
PROVIDERS: ATTEND Nurse Practitioner Family
DX: N39.0 Urinary tract infection, site not specified (principal)
CPT/HCPCS: 96365; 96366; J2185

== ENCOUNTER 2019-11-29 16:31 | Outpatient (CLI) | payer MEDICARE, MEDICAID ==
[~2019-11-29 16:31] MED LIST changes: +MEROPENEM INJ 1 GM in IV 1 EA IV SCH; +SODIUM CHLORIDE 0.9% INJ 10 ML SYR IV SCH
[2019-11-29] MEDS ORDERED: SODIUM CHLORIDE 0.9% INJ 10 ML SYR IV PRN (16:45)
== END 2019-11-29 17:45 | disposition home or self-care (01) ==
LOC: M INFU 16:31
PROVIDERS: ATTEND Nurse Practitioner Family
DX: N39.0 Urinary tract infection, site not specified (principal)

== ENCOUNTER 2019-11-30 07:25 | Outpatient (CLI) | payer MEDICARE, MEDICAID ==
[~2019-11-30] VITALS: Ht 170.2 cm; Wt 111.2 kg
[~2019-11-30 07:25] MED LIST changes: -MEROPENEM INJ 1 GM in IV 1 EA IV SCH; -SODIUM CHLORIDE 0.9% INJ 10 ML SYR IV SCH
[2019-11-30] MEDS ORDERED: SODIUM CHLORIDE 0.9% INJ 10 ML SYR IV PRN (07:30)
[2019-11-30] MEDS ORDERED: MEROPENEM INJ 1 GM in IV 1 EA IV ONE (07:30)
[2019-11-30 07:41] VITALS: BP 110/58
[2019-11-30 08:45] VITALS: BP 110/70
[2019-11-30] MEDS ORDERED: SODIUM CHLORIDE 0.9% INJ 10 ML SYR IV SCH (09:00)
== END 2019-11-30 08:45 | disposition home or self-care (01) ==
LOC: M INFU 07:25
PROVIDERS: ATTEND Nurse Practitioner Family
DX: N39.0 Urinary tract infection, site not specified (principal)
CPT/HCPCS: 96365; J2185

== ENCOUNTER → 2019-12-09 | Outpatient (CLI) | payer MEDICARE, SELFPAY | LOC: M LABSMTC 10:26 | PROVIDERS: ATTEND Pediatrics | DX: Z20.828 Contact with and (suspected) exposure to other viral communicable diseases (principal); Z11.59 Encounter for screening for other viral diseases ==

== ENCOUNTER 2019-12-12 14:42 | Outpatient (CLI) | payer MEDICARE, MEDICAID ==
[~2019-12-12 14:42] MED LIST changes: +SODIUM CHLORIDE 0.9% INJ 10 ML SYR IV PRN; +SODIUM CHLORIDE 0.9% INJ 10 ML SYR IV SCH
[2019-12-12 14:50] VITALS: BP 154/67
[2019-12-12 15:34] LABS: BASO # 0.1 10^3/uL (0.0-0.2); BASO % 0.7 % (0.0-1.0); EOS # 0.1 10^3/uL (0.0-0.5); EOS % 1.2 % (0.0-3.0); HEMATOCRIT 41.9 % (36.0-47.0); LYMPH # 2.1 10^3/uL (1.5-5.0); LYMPH % 22.9 % (24.0-44.0); MEAN CORPUSCULAR HEMOGLOBIN 28.8 pg (27.0-33.0); MEAN CORPUSCULAR VOLUME 92.9 fl (80.0-96.0); MONO # 1.2 10^3/uL (0.0-0.8); MONO % 13.1 % (0.0-5.0); NEUTROPHILS # 5.5 10^3/uL (1.5-8.5); NEUTROPHILS % 60.8 % (36.0-66.0); PLATELET COUNT, AUTOMATED 166 10^3/uL (150-450); RED BLOOD COUNT 4.51 10^6/uL (4.00-5.40); WHITE BLOOD COUNT 9.1 10^3/uL (4.0-10.0)
[2019-12-12 16:34] LABS: CALCIUM LEVEL 9.3 MG/DL (8.8-10.2); CREATININE FOR GFR 1.73 MG/DL (0.55-1.30); GLOMERULAR FILTRATION RATE 30.6 (>39); PERCENT SATURATION 10.4 % (13.2-45.0); POTASSIUM SERUM 4.9 MEQ/L (3.5-5.1)
== END 2019-12-12 15:15 | disposition home or self-care (01) ==
LOC: M INFU 14:42
PROVIDERS: ATTEND Internal Medicine
DX: D50.9 Iron deficiency anemia, unspecified (principal); Z88.1 Allergy status to other antibiotic agents; Z88.2 Allergy status to sulfonamides; Z88.8 Allergy status to other drugs, medicaments and biological substances; Z91.048 Other nonmedicinal substance allergy status

== ENCOUNTER 2019-12-26 14:34 | Outpatient (CLI) | payer MEDICARE, MEDICAID ==
[~2019-12-26] VITALS: Ht 170.2 cm; Wt 111.2 kg
[2019-12-26 14:40] VITALS: BP 133/60
[2019-12-26 15:13] LABS: BASO # 0.1 10^3/uL (0.0-0.2); BASO % 0.8 % (0.0-1.0); EOS # 0.1 10^3/uL (0.0-0.5); EOS % 0.9 % (0.0-3.0); HEMATOCRIT 40.2 % (36.0-47.0); HEMOGLOBIN 11.6 g/dl (12.0-15.5); LYMPH # 2.3 10^3/uL (1.5-5.0); LYMPH % 30.3 % (24.0-44.0); MEAN CORPUSCULAR HGB CONC 28.9 g/dl (32.0-36.5); MEAN CORPUSCULAR VOLUME 93.7 fl (80.0-96.0); MONO # 1.1 10^3/uL (0.0-0.8); NEUTROPHILS # 3.9 10^3/uL (1.5-8.5); NEUTROPHILS % 51.5 % (36.0-66.0); PLATELET COUNT, AUTOMATED 168 10^3/uL (150-450); RED BLOOD COUNT 4.29 10^6/uL (4.00-5.40); WHITE BLOOD COUNT 7.5 10^3/uL (4.0-10.0)
[2019-12-26 16:06] LABS: CALCIUM LEVEL 9.7 MG/DL (8.8-10.2); CREATININE FOR GFR 1.78 MG/DL (0.55-1.30); GLOMERULAR FILTRATION RATE 29.6 (>39); PERCENT SATURATION 10.1 % (13.2-45.0); POTASSIUM SERUM 4.4 MEQ/L (3.5-5.1)
== END 2019-12-26 15:00 | disposition home or self-care (01) ==
LOC: M INFU 14:34
PROVIDERS: ATTEND Internal Medicine
DX: D50.9 Iron deficiency anemia, unspecified (principal); Z88.0 Allergy status to penicillin; Z88.1 Allergy status to other antibiotic agents; Z88.2 Allergy status to sulfonamides; Z88.8 Allergy status to other drugs, medicaments and biological substances

== ENCOUNTER 2020-01-01 09:32 | Outpatient (CLI) | payer MEDICARE, MEDICAID ==
[~2020-01-01] VITALS: Ht 170.2 cm; Wt 98.4 kg
[~2020-01-01 09:32] MED LIST changes: +IRON SUCROSE 25 MG in NS 25 ML IV ONE; +IRON SUCROSE 475 MG in NS 250 ML IV ONE; -SODIUM CHLORIDE 0.9% INJ 10 ML SYR IV SCH
[2020-01-01 09:51] VITALS: BP 137/72
[2020-01-01 12:00] VITALS: BP 119/49
[2020-01-01 13:00] VITALS: BP 131/64
[2020-01-01 14:25] VITALS: BP 131/67
[2020-01-02] MEDS ORDERED: SODIUM CHLORIDE 0.9% INJ 10 ML SYR IV SCH (09:00)
== END 2020-01-01 14:35 | disposition home or self-care (01) ==
LOC: M INFU 09:32
PROVIDERS: ATTEND Internal Medicine
DX: D50.9 Iron deficiency anemia, unspecified (principal); Z88.0 Allergy status to penicillin; Z88.1 Allergy status to other antibiotic agents; Z88.2 Allergy status to sulfonamides; Z88.8 Allergy status to other drugs, medicaments and biological substances
CPT/HCPCS: 96365; 96366; J1642; J1756

== ENCOUNTER 2020-01-09 13:49 | Outpatient (CLI) | payer MEDICARE, MEDICAID ==
[~2020-01-09] VITALS: Ht 170.2 cm; Wt 111.2 kg
[~2020-01-09 13:49] MED LIST changes: -IRON SUCROSE 25 MG in NS 25 ML IV ONE; -IRON SUCROSE 475 MG in NS 250 ML IV ONE; +SODIUM CHLORIDE 0.9% INJ 10 ML SYR IV SCH
[2020-01-09 13:50] VITALS: BP 112/60
[2020-01-09 14:28] LABS: BASO # 0.1 10^3/uL (0.0-0.2); EOS # 0.1 10^3/uL (0.0-0.5); EOS % 1.4 % (0.0-3.0); HEMATOCRIT 38.8 % (36.0-47.0); HEMOGLOBIN 11.5 g/dl (12.0-15.5); LYMPH # 1.6 10^3/uL (1.5-5.0); MEAN CORPUSCULAR HEMOGLOBIN 28.1 pg (27.0-33.0); MEAN CORPUSCULAR HGB CONC 29.6 g/dl (32.0-36.5); MEAN CORPUSCULAR VOLUME 94.9 fl (80.0-96.0); MONO # 0.7 10^3/uL (0.0-0.8); MONO % 11.9 % (0.0-5.0); NEUTROPHILS # 3.6 10^3/uL (1.5-8.5); NEUTROPHILS % 58.4 % (36.0-66.0); PLATELET COUNT, AUTOMATED 159 10^3/uL (150-450); RED BLOOD COUNT 4.09 10^6/uL (4.00-5.40); WHITE BLOOD COUNT 6.2 10^3/uL (4.0-10.0)
[2020-01-09 15:25] LABS: CALCIUM LEVEL 9.6 MG/DL (8.8-10.2); CREATININE FOR GFR 1.67 MG/DL (0.55-1.30); GLOMERULAR FILTRATION RATE 31.8 (>39); PERCENT SATURATION 18.5 % (13.2-45.0)
== END 2020-01-09 14:20 | disposition home or self-care (01) ==
LOC: M INFU 13:49
PROVIDERS: ATTEND Internal Medicine
DX: D50.9 Iron deficiency anemia, unspecified (principal)
CPT/HCPCS: 36591; 80048; 83550; 85025; 96523; J1642

== ENCOUNTER 2020-01-23 14:16 | Outpatient (CLI) | payer MEDICARE, MEDICAID ==
[~2020-01-23 14:16] MED LIST changes: -SODIUM CHLORIDE 0.9% INJ 10 ML SYR IV SCH
[2020-01-23 14:20] VITALS: BP 148/80
[2020-01-23 15:10] LABS: BASO # 0.1 10^3/uL (0.0-0.2); EOS # 0.1 10^3/uL (0.0-0.5); EOS % 1.7 % (0.0-3.0); HEMATOCRIT 40.5 % (36.0-47.0); HEMOGLOBIN 11.8 g/dl (12.0-15.5); LYMPH # 1.9 10^3/uL (1.5-5.0); LYMPH % 27.3 % (24.0-44.0); MEAN CORPUSCULAR HEMOGLOBIN 27.4 pg (27.0-33.0); MEAN CORPUSCULAR HGB CONC 29.1 g/dl (32.0-36.5); MONO # 0.9 10^3/uL (0.0-0.8); MONO % 12.1 % (0.0-5.0); NEUTROPHILS % 56.8 % (36.0-66.0); PLATELET COUNT, AUTOMATED 174 10^3/uL (150-450); RED BLOOD COUNT 4.31 10^6/uL (4.00-5.40); WHITE BLOOD COUNT 7.1 10^3/uL (4.0-10.0)
[2020-01-23 15:29] LABS: CALCIUM LEVEL 9.2 MG/DL (8.8-10.2); CREATININE FOR GFR 1.77 MG/DL (0.55-1.30); GLOMERULAR FILTRATION RATE 29.8 (>39); PERCENT SATURATION 11.8 % (13.2-45.0); POTASSIUM SERUM 3.7 MEQ/L (3.5-5.1)
[2020-01-23 15:58] LABS: HEMOGLOBIN A1c 6.8 %
[2020-01-24] MEDS ORDERED: SODIUM CHLORIDE 0.9% INJ 10 ML SYR IV SCH (09:00)
== END 2020-01-23 14:50 | disposition home or self-care (01) ==
LOC: M INFU 14:16
PROVIDERS: ATTEND Internal Medicine
DX: D50.9 Iron deficiency anemia, unspecified (principal); Z88.0 Allergy status to penicillin; Z88.2 Allergy status to sulfonamides; Z88.1 Allergy status to other antibiotic agents; Z88.8 Allergy status to other drugs, medicaments and biological substances; Z79.899 Other long term (current) drug therapy
CPT/HCPCS: 36591; 80048; 83036; 83550; 85025; 96523; J1642

== ENCOUNTER 2020-02-06 09:29 | Outpatient (CLI) | payer MEDICARE, MEDICAID ==
[~2020-02-06] VITALS: Ht 170.2 cm; Wt 96.6 kg
[~2020-02-06 09:29] MED LIST changes: +SODIUM CHLORIDE 0.9% INJ 10 ML SYR IV SCH
[2020-02-06 09:30] VITALS: BP 124/56
[2020-02-06] MEDS ORDERED: IRON SUCROSE 475 MG in NS 250 ML IV ONE (09:30)
[2020-02-06] MEDS ORDERED: IRON SUCROSE 25 MG in NS 25 ML IV ONE (09:30)
[2020-02-06 10:43] LABS: BASO # 0.1 10^3/uL (0.0-0.2); BASO % 0.9 % (0.0-1.0); EOS # 0.1 10^3/uL (0.0-0.5); EOS % 1.4 % (0.0-3.0); HEMATOCRIT 36.3 % (36.0-47.0); HEMOGLOBIN 10.7 g/dl (12.0-15.5); LYMPH # 1.7 10^3/uL (1.5-5.0); LYMPH % 21.2 % (24.0-44.0); MEAN CORPUSCULAR HEMOGLOBIN 27.2 pg (27.0-33.0); MEAN CORPUSCULAR HGB CONC 29.5 g/dl (32.0-36.5); MEAN CORPUSCULAR VOLUME 92.1 fl (80.0-96.0); MONO % 12.7 % (0.0-5.0); NEUTROPHILS # 5.1 10^3/uL (1.5-8.5); NEUTROPHILS % 62.9 % (36.0-66.0); PLATELET COUNT, AUTOMATED 145 10^3/uL (150-450); RED BLOOD COUNT 3.94 10^6/uL (4.00-5.40)
[2020-02-06 11:38] LABS: CALCIUM LEVEL 9.7 MG/DL (8.8-10.2); CREATININE FOR GFR 1.64 MG/DL (0.55-1.30); GLOMERULAR FILTRATION RATE 32.5 (>39); PERCENT SATURATION 8.4 % (13.2-45.0)
[2020-02-06 12:30] VITALS: BP 123/58
[2020-02-06 15:20] VITALS: BP 119/56
== END 2020-02-06 15:25 | disposition home or self-care (01) ==
LOC: M INFU 09:29
PROVIDERS: ATTEND Internal Medicine
DX: D50.9 Iron deficiency anemia, unspecified (principal); Z88.0 Allergy status to penicillin; Z88.2 Allergy status to sulfonamides; Z88.1 Allergy status to other antibiotic agents; Z88.8 Allergy status to other drugs, medicaments and biological substances
CPT/HCPCS: 36591; 80048; 83550; 85025; 96365; 96366; J1642; J1756

== ENCOUNTER → 2020-02-15 | Outpatient (CLI) | payer MEDICARE, MEDICAID ==
[~2020-02-15] MED LIST changes: -SODIUM CHLORIDE 0.9% INJ 10 ML SYR IV PRN; -SODIUM CHLORIDE 0.9% INJ 10 ML SYR IV SCH
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
== END ==
LOC: M PAIN 13:45
PROVIDERS: ATTEND Nurse Practitioner Family
DX: M54.2 Cervicalgia (principal); G89.4 Chronic pain syndrome; G89.29 Other chronic pain; E11.9 Type 2 diabetes mellitus without complications; I10 Essential (primary) hypertension; K21.9 Gastro-esophageal reflux disease without esophagitis; G43.909 Migraine, unspecified, not intractable, without status migrainosus; J45.909 Unspecified asthma, uncomplicated; Z86.718 Personal history of other venous thrombosis and embolism; Z96.641 Presence of right artificial hip joint; Z88.0 Allergy status to penicillin; Z88.1 Allergy status to other antibiotic agents; Z88.2 Allergy status to sulfonamides; Z88.5 Allergy status to narcotic agent; Z88.8 Allergy status to other drugs, medicaments and biological substances; Z79.01 Long term (current) use of anticoagulants; Z79.4 Long term (current) use of insulin; Z79.899 Other long term (current) drug therapy

== ENCOUNTER 2020-02-20 14:10 | Outpatient (CLI) | payer MEDICARE, MEDICAID ==
[~2020-02-20] VITALS: Ht 170.2 cm; Wt 98.6 kg
[~2020-02-20 14:10] MED LIST changes: +SODIUM CHLORIDE 0.9% INJ 10 ML SYR IV PRN; +SODIUM CHLORIDE 0.9% INJ 10 ML SYR IV SCH
[2020-02-20 14:30] VITALS: BP 139/60
[2020-02-20 15:07] LABS: BASO # 0.1 10^3/uL (0.0-0.2); BASO % 0.9 % (0.0-1.0); EOS # 0.1 10^3/uL (0.0-0.5); EOS % 1.6 % (0.0-3.0); HEMATOCRIT 38.9 % (36.0-47.0); HEMOGLOBIN 11.4 g/dl (12.0-15.5); LYMPH # 1.6 10^3/uL (1.5-5.0); LYMPH % 23.7 % (24.0-44.0); MEAN CORPUSCULAR HEMOGLOBIN 27.4 pg (27.0-33.0); MEAN CORPUSCULAR HGB CONC 29.3 g/dl (32.0-36.5); MEAN CORPUSCULAR VOLUME 93.5 fl (80.0-96.0); MONO # 0.8 10^3/uL (0.0-0.8); MONO % 12.2 % (0.0-5.0); NEUTROPHILS # 4.1 10^3/uL (1.5-8.5); NEUTROPHILS % 60.6 % (36.0-66.0); PLATELET COUNT, AUTOMATED 158 10^3/uL (150-450); RED BLOOD COUNT 4.16 10^6/uL (4.00-5.40); WHITE BLOOD COUNT 6.7 10^3/uL (4.0-10.0)
[2020-02-20 16:18] LABS: CALCIUM LEVEL 9.6 MG/DL (8.8-10.2); CREATININE FOR GFR 1.84 MG/DL (0.55-1.30); GLOMERULAR FILTRATION RATE 28.5 (>39); PERCENT SATURATION 12.8 % (13.2-45.0); POTASSIUM SERUM 3.9 MEQ/L (3.5-5.1)
== END 2020-02-20 15:00 | disposition home or self-care (01) ==
LOC: M INFU 14:10
PROVIDERS: ATTEND Internal Medicine
DX: D50.9 Iron deficiency anemia, unspecified (principal); Z88.0 Allergy status to penicillin; Z88.2 Allergy status to sulfonamides; Z88.8 Allergy status to other drugs, medicaments and biological substances; Z91.048 Other nonmedicinal substance allergy status
CPT/HCPCS: 36591; 80048; 83550; 85025; J1642

== ENCOUNTER 2020-03-05 15:16 | Outpatient (CLI) | payer MEDICARE, MEDICAID ==
[~2020-03-05] VITALS: Ht 170.2 cm; Wt 217.0 kg
[~2020-03-05 15:16] MED LIST changes: +COLC0.6T47 PO; -COLC1TAB13 PO
[2020-03-05 15:20] VITALS: BP 144/63
[2020-03-05 15:53] LABS: BASO # 0.1 10^3/uL (0.0-0.2); BASO % 0.9 % (0.0-1.0); EOS # 0.1 10^3/uL (0.0-0.5); EOS % 1.8 % (0.0-3.0); HEMATOCRIT 37.5 % (36.0-47.0); HEMOGLOBIN 10.8 g/dl (12.0-15.5); LYMPH # 1.4 10^3/uL (1.5-5.0); MEAN CORPUSCULAR HEMOGLOBIN 26.9 pg (27.0-33.0); MEAN CORPUSCULAR HGB CONC 28.8 g/dl (32.0-36.5); MEAN CORPUSCULAR VOLUME 93.3 fl (80.0-96.0); MONO # 0.6 10^3/uL (0.0-0.8); MONO % 11.1 % (0.0-5.0); NEUTROPHILS # 3.3 10^3/uL (1.5-8.5); NEUTROPHILS % 60.5 % (36.0-66.0); PLATELET COUNT, AUTOMATED 155 10^3/uL (150-450); RED BLOOD COUNT 4.02 10^6/uL (4.00-5.40); WHITE BLOOD COUNT 5.5 10^3/uL (4.0-10.0)
[2020-03-05 16:55] LABS: CALCIUM LEVEL 9.4 MG/DL (8.8-10.2); CREATININE FOR GFR 1.77 MG/DL (0.55-1.30); GLOMERULAR FILTRATION RATE 29.8 (>39); PERCENT SATURATION 7.8 % (13.2-45.0); POTASSIUM SERUM 3.9 MEQ/L (3.5-5.1)
[2020-03-06] MEDS ORDERED: CVS500CA5 PO (02:19)
[2020-03-06] MEDS ORDERED: NORT10CA2 PO (02:19)
[2020-03-06] MEDS ORDERED: VENTAER INH (02:19)
[2020-03-06] MEDS ORDERED: CEQU0.09 OU (02:19)
[2020-03-06] MEDS ORDERED: HUMA50IN4 SC (02:19)
[2020-03-06] MEDS ORDERED: PATIENT COMMENT (02:23)
== END 2020-03-05 15:45 | disposition home or self-care (01) ==
LOC: M INFU 15:16
PROVIDERS: ATTEND Nurse Practitioner Family
DX: N18.30 Chronic kidney disease, stage 3 unspecified (principal); D63.1 Anemia in chronic kidney disease; M1A.30X0 Chronic gout due to renal impairment, unspecified site, without tophus (tophi); N18.4 Chronic kidney disease, stage 4 (severe); N25.81 Secondary hyperparathyroidism of renal origin
CPT/HCPCS: 36591; 80048; 83550; 85025; J1642

== ENCOUNTER 2020-03-05 17:40 | Inpatient (IN) | payer MEDICARE, MEDICAID ==
[~2020-03-05] VITALS: Ht 170.2 cm; Wt 108.8 kg
[~2020-03-05 17:40] MED LIST changes: -SODIUM CHLORIDE 0.9% INJ 10 ML SYR IV PRN; -SODIUM CHLORIDE 0.9% INJ 10 ML SYR IV SCH
[2020-03-05 19:56] LABS: BASO # 0.1 10^3/uL (0.0-0.2); BASO % 1.2 % (0.0-1.0); EOS # 0.1 10^3/uL (0.0-0.5); EOS % 1.9 % (0.0-3.0); HEMATOCRIT 36.3 % (36.0-47.0); HEMOGLOBIN 10.5 g/dl (12.0-15.5); LYMPH # 1.5 10^3/uL (1.5-5.0); LYMPH % 25.2 % (24.0-44.0); MEAN CORPUSCULAR HGB CONC 28.9 g/dl (32.0-36.5); MEAN CORPUSCULAR VOLUME 93.3 fl (80.0-96.0); MONO # 0.8 10^3/uL (0.0-0.8); MONO % 14.2 % (0.0-5.0); NEUTROPHILS # 3.3 10^3/uL (1.5-8.5); NEUTROPHILS % 56.5 % (36.0-66.0); PLATELET COUNT, AUTOMATED 151 10^3/uL (150-450); RED BLOOD COUNT 3.89 10^6/uL (4.00-5.40); WHITE BLOOD COUNT 5.8 10^3/uL (4.0-10.0)
[2020-03-05 20:07] LABS: INR 1.12; PROTHROMBIN TIME 14.7 SECONDS (12.5-14.3)
[2020-03-05] MEDS ORDERED: LEVEMIR (INSULIN DETEMIR) 1 UNITS/0.01ML SC SCH (21:00)
[2020-03-05] MEDS ORDERED: PERCOCET 5MG/325MG TAB PO ONE (21:30)
--- NOTE | 2020-03-05 21:34 | REPVR ---
PROCEDURE INFORMATION: Exam: XR Chest, 1 View Exam date and time: 03/05/20 (7:56pm) Age: 74 years old Clinical indication: Cough and dyspnea TECHNIQUE: Imaging protocol: XR of the chest Views: 1 view COMPARISON: Portable CXR of 07/09/19 CT CHEST of 04/06/19. FINDINGS: Comparison is made with portable CXR done on 07/09/[address]-CHEST scan of 04/06/19. Stable cardiomegaly. A right-sided central venous infusion catheter remains (stable position). Elevation of the right hemidiaphragm is again seen. Blunting at the right costophrenic angle remains. Nonspecific hazy opacity seen laterally at the left lung base (unchanged appearance). Multiple surgical clips in the LUQ area and overlying the A-P window region. IMPRESSION: In general, no significant interval change is evident over the past 8 months. Blunting at each costophrenic angle is again seen. Mild elevation of the right hemidiaphragm remains. Nonspecific hazy opacity laterally at the left lung base (unchanged) (a chronic finding). Electronically signed by: Britney Ervin On 03/05/2020 21:27:50 PM
[2020-03-05 21:35] LABS: ALBUMIN 3.3 GM/DL (3.2-5.2); ALT/SGPT 26 U/L (12-78); BILIRUBIN,DIRECT < 0.1 MG/DL (0.0-0.2); BILIRUBIN,TOTAL 0.3 MG/DL (0.2-1.0); BLOOD UREA NITROGEN 29 MG/DL (7-18); CALCIUM LEVEL 9.7 MG/DL (8.8-10.2); CARBON DIOXIDE LEVEL 34 MEQ/L (21-32); CHLORIDE LEVEL 98 MEQ/L (98-107); CK-MB VALUE MASS < 1.0 NG/ML (<3.6); CPK CREATINE PHOSPHOKINASE 46 U/L (26-192); CREATININE FOR GFR 1.75 MG/DL (0.55-1.30); GLOMERULAR FILTRATION RATE 30.2 (>39); GLUCOSE, FASTING 270 MG/DL (70-100); MB/CK RELATIVE INDEX 2.17 (< OR =4); NT-PRO BNP 375 PG/ML (<450); POTASSIUM SERUM 3.8 MEQ/L (3.5-5.1); SODIUM LEVEL 138 MEQ/L (136-145); THYROID STIMULATING HORMONE 0.854 uIU/ML (0.358-3.740); THYROXINE (T4) 10.2 UG/DL (4.5-12.0); TOTAL PROTEIN 6.2 GM/DL (6.4-8.2); TROPONIN I < 0.02 NG/ML (< 0.10)
[2020-03-05] MEDS ORDERED: dexameTHASONE 20MG/5ML VIAL (J1100 PER 1MG) IV ONE (22:00)
[2020-03-05] MEDS ORDERED: IPRATROPIUM 0.5MG/ALBUTEROL 2.5MG INH SOL UD 3ML (DUONEB) NEB ONE (22:00)
[2020-03-05] MEDS ORDERED: ALBUTEROL SULFATE 2.5 MG/0.5 ML INH NEB SOLN INH ONE (22:00)
--- NOTE | 2020-03-06 00:18 | REPVR ---
PROCEDURE INFORMATION: Exam: CT Chest Without Contrast; Diagnostic Exam date and time: 03/05/2020 11:32 PM Age: 74 years old Clinical indication: Shortness of breath TECHNIQUE: Imaging protocol: Diagnostic computed tomography of the chest without contrast. 3D rendering (Not supervised by radiologist): MIP and/or 3D reconstructed images were created by the technologist. Radiation optimization: All CT scans at this facility use at least one of these dose optimization techniques: automated exposure control; mA and/or kV adjustment per patient size (includes targeted exams where dose is matched to clinical indication); or iterative reconstruction. COMPARISON: CT Chest without contrast 04/06/2019 4:41 PM FINDINGS: Limitations: Examination is limited by motion artifact. Tubes, catheters and devices: Right Port-A-Cath with the tip in the SVC. Tracheobronchial tree: Visualized airway is unremarkable. Lungs: Metallic foreign bodies in the left lung. Subsegmental atelectasis in the lower lobes. Calcified granuloma in the right lower lobe. Pleural space: Unremarkable. No pneumothorax. No pleural effusion. Heart: Unremarkable. No cardiomegaly. No pericardial effusion. Mediastinal space: Status post gastroesophageal surgery. Aorta: Moderate calcified atherosclerotic disease. No aortic aneurysm. Lymph nodes: Noncalcified right hilar nodes. No lymphadenopathy. Spleen: Multiple calcified granulomas in the spleen. Bones/joints: Unremarkable. No acute fracture. Soft tissues: Chronic calcifications along the posterior right thoracic wall. Multiple metallic foreign bodies in the ventral left upper quadrant of the abdomen. Metallic foreign body in the left back. IMPRESSION: 1. Subsegmental atelectasis in the lower lobes. Underlying mild pneumonia cannot be excluded. 2. Prior granulomatous disease. 3. Additional findings as described. Electronically signed by: Melody Miller On 03/06/2020 00:18:55 AM
--- NOTE | 2020-03-06 02:10 | REPVR ---
PROCEDURE INFORMATION: Exam: US Abdomen, Limited; Right Upper Quadrant Exam date and time: 03/06/2020 1:58 AM Age: 74 years old Clinical indication: Abdominal pain; Additional info: Ruq and epigastric pain TECHNIQUE: Imaging protocol: US abdomen. Real time ultrasound with image documentation. Limited exam focused on the right upper quadrant. COMPARISON: RENAL US 04/16/2018 7:50 PM FINDINGS: Limitations: Examination is limited by body habitus. Liver: Normal. No masses. Gallbladder: Normal. No gallstones. There is no gallbladder wall thickening. Common bile duct: CBD measures 2.5 mm in diameter. Pancreas: Visualized pancreas is unremarkable. Right kidney: Right kidney measures 9.2 cm in length. No right hydronephrosis. Normal echogenicity. IMPRESSION: Unremarkable right upper quadrant ultrasound. Electronically signed by: Melody Miller On 03/06/2020 02:10:37 AM
[2020-03-06] MEDS ORDERED: NORT10CA2 PO (02:19)
[2020-03-06] MEDS ORDERED: CEQU0.09 OU (02:19)
[2020-03-06] MEDS ORDERED: HUMA50IN4 SC (02:19)
[2020-03-06] MEDS ORDERED: CVS500CA5 PO (02:19)
[2020-03-06] MEDS ORDERED: VENTAER INH (02:19)
[2020-03-06] MEDS ORDERED: PATIENT COMMENT (02:23)
[2020-03-06] MEDS ORDERED: DEXTROSE 50% 50 ML SYRINGE IV PRN (03:00)
[2020-03-06] MEDS ORDERED: GLUCAGON INJ 1MG VIAL SC PRN (03:00)
[2020-03-06] MEDS ORDERED: GLUCOSE 4GM CHEW TABLET PO PRN (03:00)
[2020-03-06] MEDS ORDERED: NYSTATIN CREAM 15 GM TOP PRN (03:00)
--- NOTE | 2020-03-06 03:30 | HPEPDOC ---
[facility] Medical History & Physical Date of Admission Mar 06, 2020 Date of Service: Mar 06, 2020 Primary Care Physician: Jr Villalobos Collins Attending Physician: SEYMOUR WAITE MD History and Physical CHIEF COMPLAINT: Shortness of breath HISTORY OF PRESENT ILLNESS: Maricarmen Stern is a 74 YO F with history of poorly controlled T2DM, MATT on home CPAP, COPD who presents to the ED with one day history of shortness of breath. She states she woke up feeling "breathless" and was shaking and cold. Yesterday she went to bed feeling well and has not had any recent illnesses recently, inc luding upper respiratory viral symptoms. She denies any fevers or coughing. She reportedly is supposed to be on home oxygen 2L but was not home last night so oxygen was not available to her. She denies any recent sick contacts or travel. She states she has been taking all of her home medication as prescribed. Otherwise, she has no complaints today. In the ED, she is saturating 98% on 2LNC and workup was essentially within normal limits. PAST MEDICAL HISTORY: 1. Obstructive sleep apnea on CPAP 2. Hypertension 3. CHF with preserved ejection fraction (last Echo 04/201920 grade 2 diastolic dysfunction, EF 55-60%, Pulm A pressure 30-40mmHg 4. Diabetes mellitus 5. 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 Gout 7. Seizure disorder 8. Urinary retention with chronic suprapubic catheter in place 9. Hx of arachnoiditis wheelchair bound 10. GERD 11. Iron deficiency anemia on monthly iron infusion 12. Morbid obesity 13. Histroy of atrial fibrillation 14. Hx of COPD? PAST SURGICAL HISTORY: 1. Hip replacement. 2. Port placement 3. IVC filter SOCIAL HISTORY: Never smoker. Denies alcohol. Denies drug use FAMILY HISTORY: Positive for heart disease ALLERGIES: Please see below. REVIEW OF SYSTEMS: Constitutional: No Weight Change, No Fever, reports Chills, No Night Sweats, No Fatigue, No Malaise ENT/Mouth: No Hearing Changes, No Ear Pain, No Nasal Congestion, No Sinus Pain, No Hoarseness, No sore throat, No Rhinorrhea, No Swallowing Difficulty Eyes: No Eye Pain, No Swelling, No Redness, No Foreign Body, No Discharge, No Vision Changes Cardiovascular: No Chest Pain, reports SOB, No PND, reports Dyspnea on Exertion, No Orthopnea, No Claudication, reports some lower extremity Edema, No Palpitations Respiratory: No Cough, No Wheezing, reports some dyspnea Gastrointestinal: No Nausea, No Vomiting, No Diarrhea, No Constipation, reports some of the right upper quadrant abdominal pain, No Heartburn, No Hematochezia, No Melena Musculoskeletal: Reports bilateral pain in wrists Skin: No Skin Lesions, No Pruritis, No Hair Changes, No Breast/Skin Changes, No Nipple Discharge Neuro: No Weakness, No Numbness, No Paresthesias, No Loss of Consciousness, No Syncope, No Dizziness, No Headache, No Coordination Changes, No Recent Falls Psych: No Anxiety/Panic, No Depression, No Insomnia, No Personality Changes, No Delusions Heme/Lymph: No Bruising, No Bleeding, No Transfusions History, No Lymphadenopathy HOME MEDICATIONS: Please see below. PHYSICAL EXAMINATION: VITAL SIGNS: see below GENERAL: alert and oriented, in no apparent distress, pleasant and conversant in full sentences. HEENT: PERRL, EOMI, Oral mucous membranes are moist without lesions. NECK: The patient has no noted JVD. No adenopathy is appreciated. No thyromegaly CHEST/LUNGS: Decreased breath sounds bilaterally with some scattered upper airway wheezes. There is no subcutaneous air appreciated. There is no tenderness to the chest wall. HEART: Irregular rhythm. No murmurs, rubs, or gallops are appreciated. Distal pulses are 2+. No carotid bruits appreciated. ABDOMEN: Tender to light palpation in the right upper quadrant. Bowel sounds are positive. No organomegaly is appreciated. No masses are appreciated. There are no peritoneal signs. There is no [place] sign. EXTREMITIES: Trace peripheral edema. There is no focal long bone tenderness or deformity. SKIN: The patients skin is warm and dry, without rashes or lesions. PSYCHIATRIC: AAO x 3, normal mood/affect NEUROLOGIC: No obvious focal deficits LABORATORY DATA: See below. IMAGING: CXR: FINDINGS: Comparison is made with portable CXR done on 07/09/[address]-CHEST scan of 04/06/19. Stable cardiomegaly. A right-sided central venous infusion catheter remains (stable position). Elevation of the right hemidiaphragm is again seen. Blunting at the right costophrenic angle remains. Nonspecific hazy opacity seen laterally at the left lung base (unchanged appearance). Multiple surgical clips in the LUQ area and overlying the A-P window region. IMPRESSION: In general, no significant interval change is evident over the past 8 months. Blunting at each costophrenic angle is again seen. Mild elevation of the right hemidiaphragm remains. Nonspecific hazy opacity laterally at the left lung base (unchanged) (a chronic finding). CHEST CT: FINDINGS: Limitations: Examination is limited by motion artifact. Tubes, catheters and devices: Right Port-A-Cath with the tip in the SVC. Tracheobronchial tree: Visualized airway is unremarkable. Lungs: Metallic foreign bodies in the left lung. Subsegmental atelectasis in the lower lobes. Calcified granuloma in the right lower lobe. Pleural space: Unremarkable. No pneumothorax. No pleural effusion. Heart: Unremarkable. No cardiomegaly. No pericardial effusion. Mediastinal space: Status post gastroesophageal surgery. Aorta: Moderate calcified atherosclerotic disease. No aortic aneurysm. Lymph nodes: Noncalcified right hilar nodes. No lymphadenopathy. Spleen: Multiple calcified granulomas in the spleen. Bones/joints: Unremarkable. No acute fracture. Soft tissues: Chronic calcifications along the posterior right thoracic wall. Multiple metallic foreign bodies in the ventral left upper quadrant of the abdomen. Metallic foreign body in the left back. IMPRESSION: 1. Subsegmental atelectasis in the lower lobes. Underlying mild pneumonia cannot be excluded. 2. Prior granulomatous disease. 3. Additional findings as described. GALLBLADDER US: FINDINGS: Limitations: Examination is limited by body habitus. Liver: Normal. No masses. Gallbladder: Normal. No gallstones. There is no gallbladder wall thickening. Common bile duct: CBD measures 2.5 mm in diameter. Pancreas: Visualized pancreas is unremarkable. Right kidney: Right kidney measures 9.2 cm in length. No right hydronephrosis. Normal echogenicity. IMPRESSION: Unremarkable right upper quadrant ultrasound. MICROBIOLOGY: Please see below. ASSESSMENT: This is a morbidly obese 74 YO F with history of dCHF (EF 55-60%), MATT on CPAP, ?COPD?, DM2 who presents with one day shortness of breath and chills found to have CT findings concerning for community-acquired PNA vs COPD exacerbation. . PLAN: 1. SOB: likely 2/2 COPD exacerbation vs CA-PNA -WBC WNL, afebrile, patient is saturating well on home dose O2 (2L), no cough -S/p dexamethasone 10mg and duonebs in ED -Will start empiric Prednisone 40mg daily -Empiric Doxycycline 100mg BID x 5 days -DuoNebs Q4H -Procalcitonin pending 2. History of atrial fibrillation: rate currently controlled -Continue home Atenolol, Eliquis 3. Poorly controlled T2DM (last A1c 6.8%): suspect steroids will increase blood sugar acutely -The patient is on a customized sliding scale at home + Tresiba -Will start Levemir 120U QHS -Custom SSI +hypoglycemic protocol 4. CKD 3: Cr currently at baseline -Continue calcitriol 5. Seizure disorder, unspecified: -Continue Keppra 6. Iron deficiency anemia: -Last iron labs checked yesterday, iron 31 TIBC 395 -Will need outpatient follow up with PCP who manages infusions 7. History of dCHF: -Currently clinically euvolemic -Continue Torsemide, Spironolactone 8. Urinary retention: chronic suprapubic catheter -stable 9. GERD: continue omeprazole DVT ppx: on Eliquis DISPO: observation status, likely dc home in 24-48h Vital Signs Vital Signs Date Time Temp Pulse Resp B/P (MAP) Pulse Ox O2 Delivery O2 Flow Rate FiO2 03/06/20 00:58 95 98 03/06/20 00:45 18 127/61 (83) Nasal Cannula 2.0 03/05/20 17:40 97.1 Laboratory Data Labs 24H Laboratory Tests 2 03/05/20 19:27: Immature Granulocyte % (Auto) 1.0, Neutrophils (%) (Auto) 56.5, Lymphocytes (%) (Auto) 25.2, Monocytes (%) (Auto) 14.2H, Eosinophils (%) (Auto) 1.9, Basophils (%) (Auto) 1.2H, Neutrophils # (Auto) 3.3, Lymphocytes # (Auto) 1.5, Monocytes # (Auto) 0.8, Eosinophils # (Auto) 0.1, Basophils # (Auto) 0.1, Nucleated Red Blood Cells % (auto) 0.3H, Prothrombin Time 14.7H, Prothromb Time International Ratio 1.12, Anion Gap 6L, Glomerular Filtration Rate 30.2L, Calcium Level 9.7, Total Bilirubin 0.3, Direct Bilirubin < 0.1, Aspartate Amino Transf (AST/SGOT) 18, Alanine Aminotransferase (ALT/SGPT) 26, Alkaline Phosphatase 64, Total Creatine Kinase 46, Creatine Kinase MB < 1.0, Creatine Kinase MB Relative Index 2.17, Troponin I < 0.02, VH-Eoa-J-Type Natriuretic Peptide 375, Total Protein 6.2L, Albumin 3.3, Albumin/Globulin Ratio 1.1L, Thyroid Stimulating Hormone (TSH) 0.854, Thyroxine (T4) 10.2 CBC/BMP Laboratory Tests 03/05/20 19:27 Microbiology Microbiology 03/05/20 Blood Culture, Received Pending 03/05/20 Blood Culture, Received Pending 03/05/20 Respiratory Virus Panel (PCR) (GORDY) - Final, Complete Home Medications Scheduled Allopurinol (Zyloprim) 300 Mg Tab, 300 MG PO DAILY Ammonium Lactate (Ammonium Lactate) 12 % Cre, 1 DOSE TOP BID APPLY TO LEGS/FEET Apixaban (Eliquis) 5 Mg Tablet, 5 MG PO BID Atenolol (Atenolol) 25 Mg Tablet, 25 MG PO BID Atorvastatin Calcium (Atorvastatin Calcium) 10 Mg Tab, 10 MG PO QHS Betamethasone Mala (Betamethasone Valerate) 45 Gm Oint, 1 DOSE TOP QHS USES ON LEGS FOR HOTSPOTS Calcitriol (Rocaltrol) 0.5 Mcg Capsule, 0.5 MCG PO DAILY Colchicine (Colchicine) 0.6 Mg Tab, 0.6 MG PO DAILY Cranberry Fruit Extract (Cranberry) 500 Mg Capsule, 500 MG PO TID Cyclosporine (Cequa) 0.09% Droperette, 1 DROP OU BID Docusate Sodium (Docusate Sodium) 100 Mg Cap, 100 MG PO BID Duloxetine Hcl (Cymbalta) 60 Mg Capsule.dr, 60 MG PO BID Ergocalciferol (Vitamin D2) (Vitamin D2) 50,000 Units Cap, 50,000 UNITS PO QMONTH 1ST OF EVERY MONTH Fluticasone Furoate (Arnuity Ellipta) 100 Mcg Blst.w.dev, 1 PUFF INH QHS Insulin Degludec (Tresiba Flextouch U-100) 100 Unit/Ml Inj, 120 UNITS SC QHS Insulin Lispro (Humalog Kwikpen U-200) 200 Unit/1 Ml Insuln.pen, 1 DOSE SC AC PER SLIDING SCALE Lactulose (Lactulose) 10 Gm/15 Ml Solution, 30 ML PO BID Levetiracetam (Levetiracetam ER) 500 Mg Lindsay, 500 MG PO BID Nortriptyline HCl (Nortriptyline HCl) 10 Mg Capsule, 10 MG PO BID Omeprazole (Omeprazole) 20 Mg Cap, 20 MG PO BID Polyethylene Glycol 3350 (Miralax) 119 Gm Powder, 17 GM PO BID Pregabalin (Lyrica) 150 Mg Capsule, 150 MG PO TID Spironolactone (Spironolactone) 25 Mg Tablet, 25 MG PO BID Sucralfate (Sucralfate) 1 Gm Tab, 1 GM PO BID Torsemide (Torsemide) 100 Mg Tablet, 100 MG PO DAILY Scheduled PRN Albuterol Sulf (Albuterol Sulfate) 2.5 Mg/3 Ml Nebu, 2.5 MG INH QID PRN for SHORTNESS OF BREATH Albuterol Sulfate (Ventolin Hfa) 18 Gm Hfa.aer.ad, 2 PUFFS INH QID PRN for SHORTNESS OF BREATH Nystatin (Nystatin) 100,000 Unit/Gm Cre, 1 DOSE TOP BID PRN for RASH UNDER BREASTS AND GROIN AREA Nystatin (Nystatin Oint) 30 Gm Oint, 1 DOSE TOP TID PRN for RASH APPLIES AROUND VAGINAL AREA Ondansetron HCl (Ondansetron HCl) 4 Mg Tab, 4 MG PO QID PRN for NAUSEA OR VOMIT ING Oxycodone HCl/Acetaminophen (Oxycodone-Acetaminophen 5-325) 1 Each Tablet, 1 TAB PO BID PRN for PAIN Scopolamine (Transderm-Scop) 1 Each Patch.td.3, 1.5 MG TOP Q72H PRN for MOTION SICKNESS Miscellaneous Medications [Patient Comment] PATIENT IS NOT A GOOD HISTORIAN. Allergies Coded Allergies: Cephalosporins (Verified Allergy, Intermediate, hives, 07/09/19) Penicillins (Verified Allergy, Intermediate, hives, 07/09/19) Sulfa (Sulfonamide Antibiotics) (Verified Allergy, Intermediate, hives, 07/09/19) chlorpromazine (Verified Allergy, Intermediate, hiives, 07/09/19) loratadine (Verified Allergy, Intermediate, hives, 07/09/19) pentazocine (Verified Allergy, Intermediate, hives, 07/09/19) TAPE (Verified Allergy, Unknown, band-aids, 07/09/19) methadone (Verified Allergy, Unknown, 07/09/19) HAS HAD DILAUDID AND DEMEROL IN THE PAST A-FIB/CHADSVASC A-FIB History Current/History of A-Fib/PAF?: Yes Current PO Anticoag Therapy: Yes GME ATTESTATION GME ATTESTATION My faculty preceptor for this patient encounter was physically present during the encounter and was fully available. All aspects of the patient interview, examination, medical decision making process, and medical care plan development were reviewed and approved by the faculty preceptor. The faculty preceptor is aware and concurs with the plan as stated in the body of this note and will attest to such by his/her cosignature. ATTENDING NOTE I, Seymour Waite, have independently examined this patient and performed my own physical exam, as well as reviewed the documentation and edited where necessary. I have discussed in detail with the resident / student the findings and plan of treatment as documented by the resident / student and edited their note. I agree with their findings and treatment plan and have edited their documentation. I wi ll continue to follow the patient during this hospital stay. ROBERTO WILLAMS MD Mar 06, 2020 02:00 SEYMOUR WAITE MD Mar 06, 2020 04:09
--- NOTE | 2020-03-06 03:45 | REPVR ---
PROCEDURE INFORMATION: Exam: CT Abdomen And Pelvis Without Contrast Exam date and time: 03/06/2020 3:21 AM Age: 74 years old Clinical indication: Abdominal pain; Localized; Right upper quadrant (ruq); Additional info: Ruq pain TECHNIQUE: Imaging protocol: Computed tomography of the abdomen and pelvis without contrast. Radiation optimization: All CT scans at this facility use at least one of these dose optimization techniques: automated exposure control; mA and/or kV adjustment per patient size (includes targeted exams where dose is matched to clinical indication); or iterative reconstruction. COMPARISON: CT ABD PELVIS W/O CONTRAST 05/18/2018 4:52 PM FINDINGS: Limitations: Examination is limited by body habitus. Examination is limited by motion artifact. Tubes, catheters and devices: Intrathecal catheter from the left the tip at T10. Lungs: Subsegmental atelectasis in the lung bases. Heart: Mild cardiomegaly. Liver: Normal. No mass. Gallbladder and bile ducts: Normal. No calcified stones. No ductal dilation. Pancreas: Normal. No ductal dilation. Spleen: Multiple calcified granulomas in the spleen. Mild splenomegaly. Adrenal glands: Normal. No mass. Kidneys and ureters: No hydronephrosis. 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 No follow-up is necessary. Nonobstructive stone in the lower pole of the left kidney measuring 6 mm. Stomach and bowel: Status post gastric surgery. Severe stool in the colon. No abnormal bowel dilatation. No abnormal bowel wall thickening. Negative for colonic diverticulitis. Appendix: The appendix is not seen. However, there is no evidence of appendicitis. Intraperitoneal space: Unremarkable. No free air. No significant fluid collection. Vasculature: No aortic aneurysm. Moderate calcified atherosclerotic disease. IVC filter in place. Lymph nodes: Unremarkable. No enlarged lymph nodes. Urinary bladder: Suprapubic catheter in place. Bladder is decompressed. Reproductive: Status post hysterectomy. Bones/joints: Status post right hip replacement. No acute fracture. Mild degenerative spine. Mild degenerative changes of the left hip. Soft tissues: Multiple granulomas in the subcutaneous tissue in the buttock. IMPRESSION: 1. Severe stool in the colon. 2. Subsegmental atelectasis in the lung bases. Mild pneumonia cannot be excluded. 3. Additional findings as described. COMMENTS: 1. For patients with an IVC filter, recommend assessment for a management plan for the patient's IVC filter. If there is no established management plan, recommend referral to an interventional clinician on a nonemergent basis for evaluation. 2. Consistent with the [employer]'s Incidental Findings Committee white paper (J Am Neymar Radiol 2018): Any incidental renal lesion less than 1 cm or classified as too small to characterize, or any incidental cystic renal lesion characterized as simple-appearing, is likely benign. No follow-up imaging is recommended for these lesions per consensus recommendations based on imaging criteria. Electronically signed by: Melody Miller On 03/06/2020 03:46:13 AM
[2020-03-06 03:46] LABS: LIPASE 96 U/L (73-393)
[2020-03-06] MEDS ORDERED: SENOKOT S TAB PO PRN (04:00)
[2020-03-06] MEDS ORDERED: MIRALAX *UNIT DOSE* 17GM PACKET PO PRN (04:00)
[2020-03-06] MEDS ORDERED: MOM 30ML SUSPENSION UDC PO PRN (04:00)
[2020-03-06 04:03] LABS: HEMOGLOBIN A1c 7.7 %
[2020-03-06] MEDS: IPRATROPIUM 0.5MG/ALBUTEROL 2.5MG INH SOL UD 3ML (DUONEB) NEB SCH ×6 (04:16→23:17)
[2020-03-06 04:17] VITALS: O2SAT 98
[2020-03-06] MEDS: HumaLOG INSULIN (NovoLOG) PER UNIT SC SCH ×3 (07:38→17:34)
[2020-03-06] MEDS: ACETAMINOPHEN TAB 650MG DOSE (2X325MG) PO PRN ×2 (07:38→16:12)
[2020-03-06] MEDS: PERCOCET 5MG/325MG TAB PO PRN ×2 (07:39→21:33)
[2020-03-06] MEDS: FLUTICASONE HFA 110 MCG 12 GM INHALER (FLOVENT) INH SCH ×2 (08:00→19:29)
[2020-03-06] MEDS ORDERED: SCOPOLAMINE 1MG TRANSDERMAL PATCH TOP PRN (09:00)
[2020-03-06] MEDS: LACTIC ACID 12% LOTION 225 GM BTL TOP SCH ×2 (09:00→21:36)
[2020-03-06] MEDS ORDERED: LEVEMIR (INSULIN DETEMIR) 1 UNITS/0.01ML SC SCH (09:00)
[2020-03-06] MEDS ORDERED: ONDANSETRON 4 MG TAB PO PRN (09:00)
[2020-03-06 09:17] LABS: HEMATOCRIT 37.2 % (36.0-47.0); HEMOGLOBIN 10.7 g/dl (12.0-15.5); MEAN CORPUSCULAR HEMOGLOBIN 26.5 pg (27.0-33.0); MEAN CORPUSCULAR HGB CONC 28.8 g/dl (32.0-36.5); MEAN CORPUSCULAR VOLUME 92.1 fl (80.0-96.0); PLATELET COUNT, AUTOMATED 141 10^3/uL (150-450); RED BLOOD COUNT 4.04 10^6/uL (4.00-5.40); WHITE BLOOD COUNT 4.5 10^3/uL (4.0-10.0)
[2020-03-06 09:57] LABS: ALBUMIN 3.3 GM/DL (3.2-5.2); BILIRUBIN,TOTAL 0.3 MG/DL (0.2-1.0); CALCIUM LEVEL 9.8 MG/DL (8.8-10.2); CREATININE FOR GFR 1.69 MG/DL (0.55-1.30); GLOMERULAR FILTRATION RATE 31.4 (>39); POTASSIUM SERUM 4.4 MEQ/L (3.5-5.1); TOTAL PROTEIN 6.5 GM/DL (6.4-8.2)
[2020-03-06] MEDS: MIRALAX *UNIT DOSE* 17GM PACKET PO SCH ×2 (12:03→21:37)
[2020-03-06] MEDS: SPIRONOLACTONE 25 MG TAB PO SCH ×2 (12:04→21:30)
[2020-03-06] MEDS: TORSEMIDE 100 MG TAB PO SCH (12:04)
[2020-03-06] MEDS: NORTRIPTYLINE 10 MG CAP PO SCH ×2 (12:05→21:30)
[2020-03-06] MEDS: CALCITRIOL 0.25 MCG CAP (S0169) PO SCH (12:05)
[2020-03-06] MEDS: allopurinoL 300 MG TAB PO SCH (12:05)
[2020-03-06] MEDS: LACTULOSE 20 GM/30 ML SYRUP UD PO SCH ×2 (12:05→21:33)
[2020-03-06] MEDS: DOCUSATE SODIUM 100MG CAPSULE PO SCH ×2 (12:06→21:31)
[2020-03-06] MEDS: SUCRALFATE 1 GM TAB PO SCH ×2 (12:06→21:31)
[2020-03-06] MEDS: PREGABALIN 75 MG CAP(LYRICA) PO SCH ×3 (12:06→21:29)
[2020-03-06] MEDS: OMEPRAZOLE 20 MG CAP PO SCH ×2 (12:06→21:30)
[2020-03-06] MEDS: DULoxetine 30 MG CAP (CYMBALTA) PO SCH ×2 (12:06→21:30)
[2020-03-06] MEDS: predniSONE 20 MG TAB PO SCH (12:06)
[2020-03-06] MEDS: atenoloL 25 MG TAB PO SCH ×2 (12:07→21:32)
[2020-03-06] MEDS: APIXABAN 5 MG TAB (ELIQUIS) PO SCH ×2 (12:07→21:31)
[2020-03-06] MEDS: DOXYCYCLINE HYCLATE 100MG TABLET PO SCH ×2 (12:07→21:29)
[2020-03-06] MEDS: COLCHICINE 0.6 MG TABLET PO SCH (12:08)
[2020-03-06] MEDS: LEVEMIR (INSULIN DETEMIR) 1 UNITS/0.01ML SC SCH ×2 (12:09→21:36)
[2020-03-06] MEDS: levETIRAcetam **XR** 500 MG TABLET PO SCH ×2 (13:21→21:30)
[2020-03-06 15:30] VITALS: BP 122/80
[2020-03-06] MEDS ORDERED: SODIUM CHLORIDE 0.9% INJ 10 ML SYR IV PRN (17:00)
[2020-03-06] MEDS ORDERED: HumaLOG INSULIN (NovoLOG) PER UNIT SC SCH ×2 (21:00)
[2020-03-06] MEDS: ATORVASTATIN 10 MG TAB PO SCH (21:30)
[2020-03-06] MEDS: BETAMETHASONE VAL 0.1% OINT 15 GM TOP SCH (21:32)
[2020-03-06 22:00] VITALS: BP 114/63
[2020-03-07] MEDS: IPRATROPIUM 0.5MG/ALBUTEROL 2.5MG INH SOL UD 3ML (DUONEB) NEB SCH ×6 (03:37→23:43)
[2020-03-07 06:00] VITALS: BP 126/61
[2020-03-07 06:50] LABS: HEMATOCRIT 35.4 % (36.0-47.0); HEMOGLOBIN 10.5 g/dl (12.0-15.5); MEAN CORPUSCULAR HEMOGLOBIN 27.3 pg (27.0-33.0); MEAN CORPUSCULAR HGB CONC 29.7 g/dl (32.0-36.5); MEAN CORPUSCULAR VOLUME 91.9 fl (80.0-96.0); PLATELET COUNT, AUTOMATED 160 10^3/uL (150-450); RED BLOOD COUNT 3.85 10^6/uL (4.00-5.40); WHITE BLOOD COUNT 8.5 10^3/uL (4.0-10.0)
[2020-03-07] MEDS: FLUTICASONE HFA 110 MCG 12 GM INHALER (FLOVENT) INH SCH ×2 (07:09→19:28)
[2020-03-07 07:10] LABS: CALCIUM LEVEL 9.5 MG/DL (8.8-10.2); CREATININE FOR GFR 1.84 MG/DL (0.55-1.30); GLOMERULAR FILTRATION RATE 28.5 (>39); MAGNESIUM LEVEL 2.3 MG/DL (1.8-2.4); POTASSIUM SERUM 5.1 MEQ/L (3.5-5.1)
--- NOTE | 2020-03-07 07:59 | ECGEPIP ---
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
[2020-03-07] MEDS: HumaLOG INSULIN (NovoLOG) PER UNIT SC SCH ×3 (09:03→16:58)
[2020-03-07] MEDS: predniSONE 20 MG TAB PO SCH (09:04)
[2020-03-07] MEDS: atenoloL 25 MG TAB PO SCH ×2 (09:04→21:26)
[2020-03-07] MEDS: LACTULOSE 20 GM/30 ML SYRUP UD PO SCH ×2 (09:04→21:18)
[2020-03-07] MEDS: MIRALAX *UNIT DOSE* 17GM PACKET PO SCH ×2 (09:04→21:53)
[2020-03-07] MEDS: NORTRIPTYLINE 10 MG CAP PO SCH ×2 (09:04→21:22)
[2020-03-07] MEDS: PREGABALIN 75 MG CAP(LYRICA) PO SCH ×3 (09:05→21:20)
[2020-03-07] MEDS: levETIRAcetam **XR** 500 MG TABLET PO SCH ×2 (09:05→21:19)
[2020-03-07] MEDS: COLCHICINE 0.6 MG TABLET PO SCH (09:05)
[2020-03-07] MEDS: SPIRONOLACTONE 25 MG TAB PO SCH (09:05)
[2020-03-07] MEDS: APIXABAN 5 MG TAB (ELIQUIS) PO SCH ×2 (09:05→21:23)
[2020-03-07] MEDS: SODIUM CHLORIDE 0.9% INJ 10 ML SYR IV SCH (09:05)
[2020-03-07] MEDS: allopurinoL 300 MG TAB PO SCH (09:05)
[2020-03-07] MEDS: DULoxetine 30 MG CAP (CYMBALTA) PO SCH ×2 (09:05→21:21)
[2020-03-07] MEDS: SUCRALFATE 1 GM TAB PO SCH ×2 (09:05→21:23)
[2020-03-07] MEDS: TORSEMIDE 100 MG TAB PO SCH (09:05)
[2020-03-07] MEDS: DOXYCYCLINE HYCLATE 100MG TABLET PO SCH ×2 (09:06→21:23)
[2020-03-07] MEDS: CALCITRIOL 0.25 MCG CAP (S0169) PO SCH (09:06)
[2020-03-07] MEDS: LEVEMIR (INSULIN DETEMIR) 1 UNITS/0.01ML SC SCH ×2 (09:06→21:19)
[2020-03-07] MEDS: DOCUSATE SODIUM 100MG CAPSULE PO SCH ×2 (09:06→21:22)
[2020-03-07] MEDS: OMEPRAZOLE 20 MG CAP PO SCH ×2 (09:06→21:22)
[2020-03-07] MEDS: PERCOCET 5MG/325MG TAB PO PRN ×2 (09:07→21:55)
[2020-03-07] MEDS: LACTIC ACID 12% LOTION 225 GM BTL TOP SCH ×2 (09:17→21:17)
[2020-03-07] MEDS ORDERED: ALBUTEROL SULFATE 2.5 MG/0.5 ML INH NEB SOLN NEB PRN (11:00)
[2020-03-07] MEDS ORDERED: HumaLOG INSULIN (NovoLOG) PER UNIT SC ONE ×2 (12:15→17:00)
[2020-03-07 14:00] VITALS: BP 130/60
--- NOTE | 2020-03-07 20:06 | IPNPDOC ---
Date Seen The patient was seen on 03/07/20. Progress Note SUBJECTIVE: BS uncontrolled with BS in 500's, discussing with pharmacy about customizing AC/HS sliding scale based on her complicated home ISS. Stopping diuretics as patient is neg fluid status with hyperosmolar state and on diuretics. Starting on fluids overnight while sugars are being improved. Complains of RUE pain, will review ortho notes. Denies incr sob, chest pain, n/v/d. OBJECTIVE: PHYSICAL EXAMINATION: VITAL SIGNS: see below GENERAL: AAOx3, NAD, resting in bed HEENT: PERRLA, EOMI, oral mucous membranes are moist without lesions. NECK: The patient has no noted JVD. No adenopathy is appreciated. No thyromegaly CHEST/LUNGS: No wheezing, rhonchi or rales . There is no subcutaneous air appreciated. There is no tenderness to the chest wall. HEART: Irregular rhythm. No murmurs, rubs, or gallops are appreciated. Distal pulses are 2+. No carotid bruits appreciated. ABDOMEN: Tender to light palpation in the right upper quadrant. Bowel sounds are positive. No organomegaly is appreciated. No masses are appreciated. There are no peritoneal signs. There is no [place] sign. EXTREMITIES: Trace peripheral edema. There is no focal long bone tenderness or deformity. right wrist in soft cast, not removed SKIN: The patients skin is warm and dry, without rashes or lesions. PSYCHIATRIC: AAO x 3, normal mood/affect NEUROLOGIC: No obvious focal deficits LABORATORY DATA: See below. IMAGING: CXR: In general, no significant interval change is evident over the past 8 months. Blunting at each costophrenic angle is again seen. Mild elevation of the right hemidiaphragm remains. Nonspecific hazy opacity laterally at the left lung base (unchanged) (a chronic finding). CHEST CT: 1. Subsegmental atelectasis in the lower lobes. Underlying mild pneumonia cannot be excluded. 2. Prior granulomatous disease. 3. Additional findings as described. GALLBLADDER US: Unremarkable right upper quadrant ultrasound. MICROBIOLOGY: Please see below. ASSESSMENT: This is a morbidly obese 74 YO F with history of dCHF (EF 55-60%), MATT on CPAP, ?COPD?, DM2 who presents with one day shortness of breath and chills found to have CT findings concerning for community-acquired PNA vs COPD exacerbation. PLAN: #SOB likely 2/2 CA-PNA. Improved COPD exacerbation -WBC WNL, afebrile, patient is saturating well on home dose O2 (2L), no cough -Stopped prednisone today, no wheezing, rhonchi or rales. -C/w ATC DuoNebs Q4H, PRN nebs, doxycycline 100mg BID x 4 additional days -Procalcitonin pending #Right distal radius fracture. Wearing wrist brace b/l. -Complains of continued pain of RUE. -Notes received from ortho clinic states f/u in two weeks from 02/17 repeat right wrist and elbow XRs were supposed to be done with removing brace -Oxy/acetaminophen Q8Hrs PRN. -PT called [facility] who states there are no restrictions on weight bearing and that the wrist braces are for patient comfort. Plan for wrist CT scan once she is discharged from hospital for further evaluation of wrists. She will likely require 1-2 more PT treatments to assist with return to baseline function. #Uncontrolled hyperglycemia likely steroid induced -Hx of difficult to manage BS in the past, on customized BS scale at home. -BS here >500 x2 today, changing AC/HS scales with pharmacy's help to better help with BS control. -Increased Levemir to 77 U BID -Hypoglycemic protocol, consistent carb diet -Stopped steroids today # History of atrial fibrillation -Rate controlled -Continue home Atenolol, Eliquis #CKD 3 -Started IVFs due to overdiuresis today with hyperglycemia -Cr currently at baseline -Continue calcitriol #Seizure disorder, unspecified: -Continue Keppra #Iron deficiency anemia: -Last iron labs checked yesterday, iron 31 TIBC 395 -Will need outpatient follow up with PCP who manages infusions #History of dCHF: -Currently clinically euvolemic -Hydrating overnight. Resume Torsemide, Spironolactone when blood sugars better controlled and patient is not peeing out so much to put at risk for dehydration # Urinary retention with chronic suprapubic catheter -Stable #GERD: continue omeprazole #DVT ppx -C/w Eliquis DISPO: observation status, likely dc home in 24-48h VS, I&O, 24H, Fishbone Vital Signs/I&O Vital Signs Date Time Temp Pulse Resp B/P (MAP) Pulse Ox O2 Delivery O2 Flow Rate FiO2 12//20 14:00 98.2 95 19 130/60 (83) 96 Nasal Cannula 2.0 I&O- Last 24 Hours up to 6 AM 03/07/20 06:00 Intake Total 1290 ml Output Total 3100 ml Balance -1810 ml Laboratory Data 24H LABS Laboratory Tests 2 03/06/20 20:52: Bedside Glucose (Misc Panel) 487H 03/07/20 05:59: Nucleated Red Blood Cells % (auto) 0.4H, Anion Gap 8, Glomerular Filtration Rate 28.5L, Calcium Level 9.5, Magnesium Level 2.3 03/07/20 11:30: Bedside Glucose (Misc Panel) 529*H 03/07/20 16:39: Bedside Glucose (Misc Panel) 578*H CBC/BMP Laboratory Tests 03/07/20 05:59 Microbiology Microbiology 03/05/20 Blood Culture - Preliminary, Resulted No growth after 24 hours . All specim... 03/05/20 Blood Culture - Preliminary, Resulted No growth after 24 hours . All specim... 03/05/20 Respiratory Virus Panel (PCR) (GORDY) - Final, Complete Current Medications Current Medications Medications (Trade) Dose Ordered Sig/Rupali Route PRN Reason Start Time Stop Time Status Last Admin Dose Admin Acetaminophen (Tylenol Tab) 650 mg Q4H PRN PO PAIN OR FEVER 03/06/20 01:15 03/06/20 16:12 Albuterol Sulfate (Proventil Neb) 2.5 mg Q2HP PRN NEB SOB/WHEEZING 03/07/20 11:00 Albuterol/ Ipratropium (Duoneb (Ipr 0.5mg/Alb 2.5mg)) 3 ml RQ4H NEB 03/06/20 04:00 03/07/20 16:43 Allopurinol (Zyloprim) 300 mg DAILY PO 03/06/20 09:00 03/07/20 09:05 Apixaban (Eliquis) 5 mg BID PO 03/06/20 09:00 03/07/20 09:05 Atenolol (Tenormin) 25 mg BID PO 03/06/20 09:00 03/07/20 09:04 Atorvastatin Calcium (Lipitor) 10 mg QHS PO 03/06/20 21:00 03/06/20 21:30 Betamethasone Valerate (Valisone) APPLIED TO HOT SPOTS ON LEGS QHS TOP 03/06/20 21:00 03/06/20 21:32 Calcitriol (Rocaltrol) 0.5 mcg DAILY PO 03/06/20 09:00 03/07/20 09:06 Colchicine (Colcrys) 0.6 mg DAILY PO 03/06/20 09:00 03/07/20 09:05 Dextrose (Dextrose 50%) 25 ml ASDIRECTED PRN IV SEE LABEL COMMENTS 03/06/20 03:00 Docusate Sodium (Colace) 100 mg BID PO 03/06/20 09:00 03/07/20 09:06 Doxycycline Hyclate (Vibramycin) 100 mg BID PO 03/06/20 09:00 03/11/20 08:59 03/07/20 09:06 Duloxetine HCl (Cymbalta) 60 mg BID PO 03/06/20 09:00 03/07/20 09:05 Fluticasone Propionate (Flovent Hfa 110 Mcg) 1 puff RBID INH 03/06/20 08:00 03/07/20 19:28 Glucagon (Glucagon) 1 mg ASDIRECTED PRN SC SEE LABEL COMMENTS 03/06/20 03:00 Glucose (Glucose) 16 GM ASDIRECTED PRN PO SEE LABEL COMMENTS 03/06/20 03:00 Heparin Sodium (Heparin (Flush)) 500 units ASDIRECTED PRN IV SEE LABEL COMMENTS 03/06/20 17:00 Heparin Sodium (Heparin (Flush)) 500 units DAILY IV 03/07/20 09:00 03/07/20 09:05 Home Med (Med Rec Complete!) ASDIRECTED XX 03/06/20 06:15 03/06/20 06:12 DC Insulin Detemir (Levemir Insulin) 53 units BID SC 03/06/20 09:00 03/06/20 08:31 DC Insulin Detemir (Levemir Insulin) 66 units BID SC 03/06/20 09:00 03/07/20 09:06 Insulin Detemir (Levemir Insulin) 120 units QHS SC 03/05/20 21:00 03/06/20 06:11 DC Insulin Human Lispro (HumaLOG INSULIN) SEE PROTOCOL TABLE AC SC 03/06/20 17:30 03/07/20 09:03 Insulin Human Lispro (HumaLOG INSULIN) SEE PROTOCOL TABLE QHS SC 03/06/20 21:00 03/06/20 21:35 Insulin Human Lispro (HumaLOG INSULIN) See Protocol Table AC SC 03/06/20 07:30 03/06/20 14:40 DC 03/06/20 13:22 Insulin Human Lispro (HumaLOG INSULIN) [facility] 03/06/20 21:00 03/06/20 14:40 DC Lactic Acid (Lac-Hydrin 12% Lotion) 1 dose BID TOP 03/06/20 09:00 03/07/20 09:17 Lactulose (Cephulac) 30 ml BID PO 03/06/20 09:00 03/07/20 09:04 Levetiracetam (Keppra Xr) 500 mg BID PO 03/06/20 09:00 03/07/20 09:05 Magnesium Hydroxide (Milk Of Magnesia) 30 ml BIDP PRN PO CONSTIPATION 03/06/20 04:00 Nortriptyline HCl (Pamelor) 10 mg BID PO 03/06/20 09:00 03/07/20 09:04 Nystatin (Mycostatin) UNDER BREASTS AND GR... BID PRN TOP RASH 03/06/20 03:00 Omeprazole (PriLOSEC) 20 mg BID PO 03/06/20 09:00 03/07/20 09:06 Ondansetron HCl (Zofran) 4 mg QID PRN PO NAUSEA OR VOMITING 03/06/20 09:00 03/07/20 17:21 Oxycodone/ Acetaminophen (Percocet 5mg/ 325mg Tablet) 1 tab BID PRN PO PAIN 03/06/20 03:00 03/07/20 09:07 Polyethylene Glycol (Miralax) 1 pkt BID PO 03/06/20 09:00 03/07/20 09:04 Polyethylene Glycol (Miralax) 1 pkt BID PRN PO CONSTIPATION 03/06/20 04:00 03/06/20 08:35 DC Prednisone (Deltasone) 40 mg DAILY PO 03/06/20 09:00 03/07/20 19:33 DC 03/07/20 09:04 Pregabalin (Lyrica) 150 mg TID PO 03/06/20 09:00 03/07/20 17:51 Scopolamine (Scopolamine) 1.5 mg Q72H PRN TOP MOTION SICKNESS 03/06/20 09:00 Senna/Docusate Sodium (Senokot S) 2 tab BIDP PRN PO CONSTIPATION 03/06/20 04:00 Sodium Chloride (Saline Lock Flush) 10 ml ASDIRECTED PRN IV SEE LABEL COMMENTS 03/06/20 17:00 Sodium Chloride (Saline Lock Flush) 10 ml DAILY IV 03/07/20 09:00 03/07/20 09:05 Spironolactone (Aldactone) 25 mg BID PO 03/06/20 09:00 03/07/20 09:05 Sucralfate (Carafate) 1 gm BID PO 03/06/20 09:00 03/07/20 09:05 Torsemide (Demadex) 100 mg DAILY PO 03/06/20 09:00 03/07/20 09:05 Allergies Coded Allergies: Cephalosporins (Verified Allergy, Intermediate, hives, 07/09/19) Penicillins (Verified Allergy, Intermediate, hives, 07/09/19) Sulfa (Sulfonamide Antibiotics) (Verified Allergy, Intermediate, hives, 07/09/19) chlorpromazine (Verified Allergy, Intermediate, hiives, 07/09/19) loratadine (Verified Allergy, Intermediate, hives, 07/09/19) pentazocine (Verified Allergy, Intermediate, hives, 07/09/19) TAPE (Verified Allergy, Unknown, band-aids, 07/09/19) methadone (Verified Allergy, Unknown, 07/09/19) HAS HAD DILAUDID AND DEMEROL IN THE PAST Aylaa Brown MD Mar 07, 2020 20:06
[2020-03-07] MEDS ORDERED: HumaLOG INSULIN (NovoLOG) PER UNIT SC SCH ×2 (21:00)
[2020-03-07] MEDS: NS 1,000 ML IV SCH (21:17)
[2020-03-07] MEDS: BETAMETHASONE VAL 0.1% OINT 15 GM TOP SCH (21:18)
[2020-03-07] MEDS: ATORVASTATIN 10 MG TAB PO SCH (21:24)
[2020-03-07 22:00] VITALS: BP 150/73
[2020-03-08] MEDS ORDERED: HumaLOG INSULIN (NovoLOG) PER UNIT SC ONE (01:15)
[2020-03-08] MEDS: IPRATROPIUM 0.5MG/ALBUTEROL 2.5MG INH SOL UD 3ML (DUONEB) NEB SCH ×2 (03:04→07:06)
[2020-03-08 05:42] LABS: HEMATOCRIT 34.4 % (36.0-47.0); HEMOGLOBIN 9.9 g/dl (12.0-15.5); MEAN CORPUSCULAR HEMOGLOBIN 25.9 pg (27.0-33.0); MEAN CORPUSCULAR HGB CONC 28.8 g/dl (32.0-36.5); MEAN CORPUSCULAR VOLUME 90.1 fl (80.0-96.0); PLATELET COUNT, AUTOMATED 154 10^3/uL (150-450); RED BLOOD COUNT 3.82 10^6/uL (4.00-5.40); WHITE BLOOD COUNT 7.7 10^3/uL (4.0-10.0)
[2020-03-08 06:00] VITALS: BP 132/62
[2020-03-08] MEDS: NS 1,000 ML IV SCH (06:00)
[2020-03-08 06:15] LABS: CALCIUM LEVEL 9.1 MG/DL (8.8-10.2); CREATININE FOR GFR 1.87 MG/DL (0.55-1.30); GLOMERULAR FILTRATION RATE 27.9 (>39); POTASSIUM SERUM 3.9 MEQ/L (3.5-5.1)
[2020-03-08] MEDS: FLUTICASONE HFA 110 MCG 12 GM INHALER (FLOVENT) INH SCH (07:07)
[2020-03-08] MEDS ORDERED: HumaLOG INSULIN (NovoLOG) PER UNIT SC SCH ×3 (07:30→21:00)
[2020-03-08] MEDS ORDERED: HUMULIN R U-500 KWIKPEN 500UNITS/ML 3ML SYRINGE (J1815 PER 5UNITS) SC SCH ×3 (07:30→21:00)
[2020-03-08] MEDS ORDERED: PEN NEEDLE (USE WITH HUMULIN U-500 INSULIN PEN) XX SCH (07:30)
[2020-03-08] MEDS ORDERED: DOXY100T PO (08:34)
[2020-03-08] MEDS ORDERED: PROB250C PO (08:34)
[2020-03-08] MEDS: LEVEMIR (INSULIN DETEMIR) 1 UNITS/0.01ML SC SCH (09:00)
[2020-03-08] MEDS: allopurinoL 300 MG TAB PO SCH (09:58)
[2020-03-08] MEDS: DOXYCYCLINE HYCLATE 100MG TABLET PO SCH (09:58)
[2020-03-08] MEDS: levETIRAcetam **XR** 500 MG TABLET PO SCH (09:58)
[2020-03-08] MEDS: NORTRIPTYLINE 10 MG CAP PO SCH (09:58)
[2020-03-08] MEDS: PREGABALIN 75 MG CAP(LYRICA) PO SCH (09:59)
[2020-03-08] MEDS: CALCITRIOL 0.25 MCG CAP (S0169) PO SCH (09:59)
[2020-03-08] MEDS: DOCUSATE SODIUM 100MG CAPSULE PO SCH (09:59)
[2020-03-08] MEDS: LACTULOSE 20 GM/30 ML SYRUP UD PO SCH (10:00)
[2020-03-08] MEDS: SUCRALFATE 1 GM TAB PO SCH (10:00)
[2020-03-08] MEDS: DULoxetine 30 MG CAP (CYMBALTA) PO SCH (10:00)
[2020-03-08] MEDS: OMEPRAZOLE 20 MG CAP PO SCH (10:00)
[2020-03-08] MEDS: MIRALAX *UNIT DOSE* 17GM PACKET PO SCH (10:00)
[2020-03-08] MEDS: APIXABAN 5 MG TAB (ELIQUIS) PO SCH (10:00)
[2020-03-08] MEDS: COLCHICINE 0.6 MG TABLET PO SCH (10:01)
[2020-03-08 10:02] VITALS: BP 123/70
[2020-03-08] MEDS: atenoloL 25 MG TAB PO SCH (10:02)
[2020-03-08] MEDS: LACTIC ACID 12% LOTION 225 GM BTL TOP SCH (10:03)
[2020-03-08] MEDS: SODIUM CHLORIDE 0.9% INJ 10 ML SYR IV SCH (10:03)
[2020-03-08] MEDS: PERCOCET 5MG/325MG TAB PO PRN (10:04)
--- NOTE | 2020-03-08 17:18 | DS.PDOC ---
Discharge Summary General Date of Admission Mar 07, 2020 at 20:05 Date of Discharge 03/08/20 Attending Physician: Ayala Brown MD Discharge Summary HISTORY OF PRESENT ILLNESS: Maricarmen Stern is a 74 YO F with history of poorly controlled T2DM, MATT on home CPAP, COPD who presents to the ED with one day history of shortness of breath. She states she woke up feeling "breathless" and was shaking and cold. Yesterday she went to bed feeling well and has not had any recent illnesses recently, including upper respiratory viral symptoms. She denies any fevers or coughing. She reportedly is supposed to be on home oxygen 2L but was not home last night so oxygen was not available to her. She denies any recent sick contacts or travel. She states she has been taking all of her home medication as prescribed. Otherwise, she has no complaints today. In the ED, she is saturating 98% on 2LNC and workup was essentially within normal limits. Patient was admitted for COPD exacerbation, ? community acquired PNA. HOSPITAL COURSE: Patient was treated for first 24H with prednisone. On reevaluation after admission the next AM, lungs were decreased but clear, had no wheezing. BS >500. We had to adjust sliding scale insulin several times to accomodate home scale. Prednisone was stopped and patient was kept on nebulizer treatments. She continued with doxycycline. PT/OT cleared her for home to previous situation. She remained stable on her home amount of O2. We touched base with [facility] who stated that her follow up scans can be done as o/p for her right fractured wrist. On 03/08/20 she was discharged home in improved condition with oral doxycycline to complete treatment as o/p for pneumonia. She is to touch base with her PCP after the weekend to schedule follow up. AT time of discharge she denies chest pain, n/v/d, fevers, chills, increased sob from baseline. PAST MEDICAL HISTORY: 1. Obstructive sleep apnea on CPAP 2. Hypertension 3. CHF with preserved ejection fraction (last Echo 04/201920 grade 2 diastolic dysfunction, EF 55-60%, Pulm A pressure 30-40mmHg 4. Diabetes mellitus 5. 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 Gout 7. Seizure disorder 8. Urinary retention with chronic suprapubic catheter in place 9. Hx of arachnoiditis wheelchair bound 10. GERD 11. Iron deficiency anemia on monthly iron infusion 12. Morbid obesity 13. Histroy of atrial fibrillation 14. Hx of COPD? PAST SURGICAL HISTORY: 1. Hip replacement. 2. Port placement 3. IVC filter SOCIAL HISTORY: Never smoker. Denies alcohol. Denies drug use FAMILY HISTORY: Positive for heart disease ALLERGIES: Please see below. DISCHARGE MEDICATIONS: Please see below. PHYSICAL EXAMINATION: VITAL SIGNS: see below GENERAL: AAOx3, NAD, resting in bed HEENT: PERRLA, EOMI, oral mucous membranes are moist without lesions. NECK: The patient has no noted JVD. No adenopathy is appreciated. No thyromegaly CHEST/LUNGS: No wheezing, rhonchi or rales . There is no subcutaneous air appreciated. There is no tenderness to the chest wall. HEART: Irregular rhythm. No murmurs, rubs, or gallops are appreciated. Distal pulses are 2+. No carotid bruits appreciated. ABDOMEN: Nontender. Bowel sounds are positive. No organomegaly is appreciated. No masses are appreciated. There are no peritoneal signs. There is no [place] sign. EXTREMITIES: Trace peripheral edema. There is no focal long bone tenderness or deformity. right wrist in soft cast, not removed SKIN: The patients skin is warm and dry, without rashes or lesions. PSYCHIATRIC: AAO x 3, normal mood/affect NEUROLOGIC: No obvious focal deficits LABORATORY DATA: See below. IMAGING: CXR: In general, no significant interval change is evident over the past 8 months. Blunting at each costophrenic angle is again seen. Mild elevation of the right hemidiaphragm remains. Nonspecific hazy opacity laterally at the left lung base (unchanged) (a chronic finding). CHEST CT: 1. Subsegmental atelectasis in the lower lobes. Underlying mild pneumonia cannot be excluded. 2. Prior granulomatous disease. 3. Additional findings as described. GALLBLADDER US: Unremarkable right upper quadrant ultrasound. MICROBIOLOGY: Please see below. ASSESSMENT: This is a morbidly obese 74 YO F with history of dCHF (EF 55-60%), MATT on CPAP, ?COPD?, DM2 who presents with one day shortness of breath and chills found to have CT findings concerning for community-acquired PNA vs COPD exacerbation. PLAN: #SOB likely 2/2 CA-PNA. Improved COPD exacerbation -WBC WNL, afebrile, patient is saturating well on home dose O2 (2L), no cough -No wheezing, rhonchi or rales. -C/w doxycycline 100mg BID, home medications #Right distal radius fracture. Wearing wrist brace b/l. -Complains of continued pain of RUE. -Notes received from ortho clinic states f/u in two weeks from 02/17 repeat right wrist and elbow XRs were supposed to be done with removing brace -Oxy/acetaminophen Q8Hrs PRN. -PT called [facility] who states there are no restrictions on weight bearing and that the wrist braces are for patient comfort. Plan for wrist CT scan once she is discharged from hospital for further evaluation of wrists. #Uncontrolled hyperglycemia likely steroid induced-better controlled -Hx of difficult to manage BS in the past, on customized BS scale at home. -BS here >500 x2 but later changing AC/HS scales with pharmacy's help to better help with BS control. -C/w all prior home medications, consistent carb diet. # History of atrial fibrillation -Rate controlled -Continue home Atenolol, Eliquis #CKD 3 -Started IVFs due to overdiuresis today with hyperglycemia -Cr currently at baseline -Continue calcitriol #Seizure disorder, unspecified: -Continue Keppra #Iron deficiency anemia: -Last iron labs checked yesterday, iron 31 TIBC 395 -Will need outpatient follow up with PCP who manages infusions #History of dCHF: -Currently clinically euvolemic -C/w all home meds at discharge # Urinary retention with chronic suprapubic catheter -Stable #GERD: continue omeprazole #DVT ppx -C/w Eliquis DISPOSITION: D/c home in improved condition. TIME SPENT ON DISCHARGE: Greater than 30 minutes. Vital Signs/I&Os Vital Signs Date Time Temp Pulse Resp B/P (MAP) Pulse Ox O2 Delivery O2 Flow Rate FiO2 03/08/20 10:34 18 Nasal Cannula 03/08/20 10:04 2.0 03/08/20 10:02 80 123/70 03/08/20 06:00 97.9 100 I&O- Last 24 Hours up to 6 AM 03/08/20 05:59 Intake Total 4020 ml Output Total 8251 ml Balance -4231 ml Laboratory Data Labs 24H Laboratory Tests 2 03/07/20 19:54: Bedside Glucose (Misc Panel) 519*H 12/4/20 22:44: Bedside Glucose (Misc Panel) 540*H 03/08/20 00:19: Bedside Glucose (Misc Panel) 464H 03/08/20 02:27: Bedside Glucose (Misc Panel) 440H 03/08/20 05:11: Anion Gap 7L, Glomerular Filtration Rate 27.9L, Calcium Level 9.1 03/08/20 05:17: Nucleated Red Blood Cells % (auto) 0.4H 03/08/20 05:45: Bedside Glucose (Misc Panel) 357H 03/08/20 09:28: Bedside Glucose (Misc Panel) 391H CBC/BMP Laboratory Tests 03/08/20 05:11 03/08/20 05:17 FSBS Laboratory Tests Test 03/07/20 19:54 03/07/20 22:44 03/08/20 00:19 03/08/20 02:27 Range/Units Bedside Glucose (Misc Panel) 519 540 464 440 83-110 MG/DL Test 03/08/20 05:45 03/08/20 09:28 Range/Units Bedside Glucose (Misc Panel) 357 391 83-110 MG/DL Microbiology Microbiology 03/05/20 Blood Culture - Preliminary, Resulted No Growth after 48 hours. All Specime... 03/05/20 Blood Culture - Preliminary, Resulted No Growth after 48 hours. All Specime... 03/05/20 Respiratory Virus Panel (PCR) (GORDY) - Final, Complete Discharge Medications Scheduled Allopurinol (Zyloprim) 300 Mg Tab, 300 MG PO DAILY, (Reported) Ammonium Lactate (Ammonium Lactate) 12 % Cre, 1 DOSE TOP BID, (Reported) APPLY TO LEGS/FEET Apixaban (Eliquis) 5 Mg Tablet, 5 MG PO BID, (Reported) Atenolol (Atenolol) 25 Mg Tablet, 25 MG PO BID, (Reported) Atorvastatin Calcium (Atorvastatin Calcium) 10 Mg Tab, 10 MG PO QHS, (Reported) Betamethasone Mala (Betamethasone Valerate) 45 Gm Oint, 1 DOSE TOP QHS, (Reported) USES ON LEGS FOR HOTSPOTS Calcitriol (Rocaltrol) 0.5 Mcg Capsule, 0.5 MCG PO DAILY, (Reported) Colchicine (Colchicine) 0.6 Mg Tab, 0.6 MG PO DAILY, (Reported) Cranberry Fruit Extract (Cranberry) 500 Mg Capsule, 500 MG PO TID, (Reported) Cyclosporine (Cequa) 0.09% Droperette, 1 DROP OU BID, (Reported) Docusate Sodium (Docusate Sodium) 100 Mg Cap, 100 MG PO BID, (Reported) Doxycycline Hyclate (Doxycycline Hyclate) 100 Mg Tablet, 100 MG PO BID Duloxetine Hcl (Cymbalta) 60 Mg Capsule.dr, 60 MG PO BID, (Reported) Ergocalciferol (Vitamin D2) (Vitamin D2) 50,000 Units Cap, 50,000 UNITS PO QMONTH, (Reported) 1ST OF EVERY MONTH Fluticasone Furoate (Arnuity Ellipta) 100 Mcg Blst.w.dev, 1 PUFF INH QHS, (Reported) Insulin Degludec (Tresiba Flextouch U-100) 100 Unit/Ml Inj, 66 UNITS SC BID, (Reported) Insulin Lispro (Humalog Kwikpen U-200) 200 Unit/1 Ml Insuln.pen, 1 DOSE SC ACHS, (Reported) PATIENT SPECIFIC SLIDING SCALE Lactulose (Lactulose) 10 Gm/15 Ml Solution, 30 ML PO BID, (Reported) Levetiracetam (Levetiracetam ER) 500 Mg Lindsay, 500 MG PO BID, (Reported) Nortriptyline HCl (Nortriptyline HCl) 10 Mg Capsule, 10 MG PO BID, (Reported) Omeprazole (Omeprazole) 20 Mg Cap, 20 MG PO BID, (Reported) Polyethylene Glycol 3350 (Miralax) 119 Gm Powder, 17 GM PO BID, (Reported) Pregabalin (Lyrica) 150 Mg Capsule, 150 MG PO TID, (Reported) Saccharomyces Boulardii (Probiotic) 250 Mg Capsule, 1 CAP PO BIDWM Spironolactone (Spironolactone) 25 Mg Tablet, 25 MG PO BID, (Reported) Sucralfate (Sucralfate) 1 Gm Tab, 1 GM PO BID, (Reported) Torsemide (Torsemide) 100 Mg Tablet, 100 MG PO DAILY, (Reported) Scheduled PRN Albuterol Sulf (Albuterol Sulfate) 2.5 Mg/3 Ml Nebu, 2.5 MG INH QID PRN for SHORTNESS OF BREATH, (Reported) Albuterol Sulfate (Ventolin Hfa) 18 Gm Hfa.aer.ad, 2 PUFFS INH QID PRN for SHORTNESS OF BREATH, (Reported) Nystatin (Nystatin) 100,000 Unit/Gm Cre, 1 DOSE TOP BID PRN for RASH, (Reported) UNDER BREASTS AND GROIN AREA Ondansetron HCl (Ondansetron HCl) 4 Mg Tab, 4 MG PO QID PRN for NAUSEA OR VOMITING, (Reported) Oxycodone HCl/Acetaminophen (Oxycodone-Acetaminophen 5-325) 1 Each Tablet, 1 TAB PO BID PRN for PAIN, (Reported) Scopolamine (Transderm-Scop) 1 Each Patch.td.3, 1.5 MG TOP Q72H PRN for MOTION SICKNESS, (Reported) Miscellaneous Medications [Patient Comment] , (Reported) PATIENT IS NOT A GOOD HISTORIAN. MED REC COMPLETED VIA EXTERNAL MED HISTORY, PATIENT MED LIST, PREVIOUS CLINIC VISIT (02/07/2020) AND PATIENT'S . Allergies Coded Allergies: Cephalosporins (Verified Allergy, Intermediate, hives, 07/09/19) Penicillins (Verified Allergy, Intermediate, hives, 07/09/19) Sulfa (Sulfonamide Antibiotics) (Verified Allergy, Intermediate, hives, 07/09/19) chlorpromazine (Verified Allergy, Intermediate, hiives, 07/09/19) loratadine (Verified Allergy, Intermediate, hives, 07/09/19) pentazocine (Verified Allergy, Intermediate, hives, 07/09/19) TAPE (Verified Allergy, Unknown, band-aids, 07/09/19) methadone (Verified Allergy, Unknown, 07/09/19) HAS HAD DILAUDID AND DEMEROL IN THE PAST Ayala Brown MD Mar 08, 2020 17:18
== END 2020-03-08 11:33 | disposition home or self-care (01) | DRG 190 ==
LOC: M ED 17:40 → M ED INP 17:41 → ENRESERV 03-06 13:34 → M MSPAV 03-06 15:13 → OBSVTOIN 03-07 20:05
PROVIDERS: ADMIT Internal Medicine; ATTEND Internal Medicine
DX: J44.1 Chronic obstructive pulmonary disease with (acute) exacerbation (principal); J18.9 Pneumonia, unspecified organism; N25.81 Secondary hyperparathyroidism of renal origin; I13.0 Hypertensive heart and chronic kidney disease with heart failure and stage 1 through stage 4 chronic kidney disease, or unspecified chronic kidney disease; N18.30 Chronic kidney disease, stage 3 unspecified; G47.33 Obstructive sleep apnea (adult) (pediatric); E11.65 Type 2 diabetes mellitus with hyperglycemia; M10.9 Gout, unspecified; G40.909 Epilepsy, unspecified, not intractable, without status epilepticus; Z79.01 Long term (current) use of anticoagulants; K21.9 Gastro-esophageal reflux disease without esophagitis; D50.9 Iron deficiency anemia, unspecified; E66.01 Morbid (severe) obesity due to excess calories; I48.91 Unspecified atrial fibrillation; I50.9 Heart failure, unspecified; Z79.899 Other long term (current) drug therapy; Z79.4 Long term (current) use of insulin; Z88.0 Allergy status to penicillin; Z88.2 Allergy status to sulfonamides; Z88.8 Allergy status to other drugs, medicaments and biological substances

== ENCOUNTER 2020-03-19 14:13 | Outpatient (CLI) | payer MEDICARE, MEDICAID ==
[~2020-03-19] VITALS: Ht 170.2 cm; Wt 98.6 kg
[~2020-03-19 14:13] MED LIST changes: +CEQU0.09 OU; +CVS500CA5 PO; +DOXY100T PO; +HUMA50IN4 SC; +PATIENT COMMENT; +PROB250C PO; +SODIUM CHLORIDE 0.9% INJ 10 ML SYR IV PRN; +SODIUM CHLORIDE 0.9% INJ 10 ML SYR IV SCH; +VENTAER INH
[2020-03-19 15:00] VITALS: BP 115/89
[2020-03-19 15:05] LABS: BASO # 0.1 10^3/uL (0.0-0.2); BASO % 0.8 % (0.0-1.0); EOS # 0.1 10^3/uL (0.0-0.5); EOS % 1.3 % (0.0-3.0); HEMATOCRIT 35.8 % (36.0-47.0); HEMOGLOBIN 9.8 g/dl (12.0-15.5); LYMPH # 1.9 10^3/uL (1.5-5.0); LYMPH % 23.4 % (24.0-44.0); MEAN CORPUSCULAR HEMOGLOBIN 24.6 pg (27.0-33.0); MEAN CORPUSCULAR HGB CONC 27.4 g/dl (32.0-36.5); MEAN CORPUSCULAR VOLUME 89.9 fl (80.0-96.0); MONO # 0.9 10^3/uL (0.0-0.8); MONO % 10.8 % (0.0-5.0); NEUTROPHILS # 5.2 10^3/uL (1.5-8.5); NEUTROPHILS % 62.7 % (36.0-66.0); PLATELET COUNT, AUTOMATED 154 10^3/uL (150-450); RED BLOOD COUNT 3.98 10^6/uL (4.00-5.40); WHITE BLOOD COUNT 8.3 10^3/uL (4.0-10.0)
[2020-03-19 15:24] LABS: APPEARANCE, URINE CLOUDY (CLEAR); BACTERIA, URINE AUTO 1+ (NEGATIVE); BILIRUBIN, URINE AUTO NEGATIVE (NEGATIVE); BLOOD, URINE BLOOD 1+ (NEGATIVE); COLOR, URINE YELLOW (YELLOW); GLUCOSE, URINE (UA) AUTO NEGATIVE (NEGATIVE); KETONE, URINE AUTO NEGATIVE (NEGATIVE); LEUKOCYTE ESTERASE, URINE AUTO 3+ (NEGATIVE); MUCUS, URINE SMALL (NEGATIVE); NITRITE, URINE AUTO NEGATIVE (NEGATIVE); PROTEIN, URINE AUTO NEGATIVE (NEGATIVE); RBC, URINE AUTO 23 /HPF (0-3); SPECIFIC GRAVITY URINE AUTO 1.008 (1.002-1.035); SQUAMOUS EPITHELIAL CELL UR AU 0 /HPF (0-6); UROBILINOGEN, URINE AUTO 0.2 mg/dL (0.0-2.0); WBC, URINE AUTO 167 /HPF (0-3)
[2020-03-19 15:28] LABS: ALBUMIN 3.4 GM/DL (3.2-5.2); CALCIUM LEVEL 10.4 MG/DL (8.8-10.2); CREATININE FOR GFR 1.97 MG/DL (0.55-1.30); GLOMERULAR FILTRATION RATE 26.3 (>39); PERCENT SATURATION 5.6 % (13.2-45.0); PHOSPHORUS LEVEL 3.3 MG/DL (2.5-4.9); URIC ACID 4.3 MG/DL (2.6-6.0)
[2020-03-19 15:40] LABS: PTH INTACT 26.1 PG/ML (18.5-88.0)
== END 2020-03-19 15:00 | disposition home or self-care (01) ==
LOC: M INFU 14:13
PROVIDERS: ATTEND Internal Medicine
DX: D50.9 Iron deficiency anemia, unspecified (principal); D63.1 Anemia in chronic kidney disease; N18.4 Chronic kidney disease, stage 4 (severe); N25.81 Secondary hyperparathyroidism of renal origin; M1A.30X0 Chronic gout due to renal impairment, unspecified site, without tophus (tophi); Z88.0 Allergy status to penicillin; Z88.1 Allergy status to other antibiotic agents; Z88.8 Allergy status to other drugs, medicaments and biological substances; Z91.048 Other nonmedicinal substance allergy status
CPT/HCPCS: 36591; 51710; 80069; 81001; 83550; 83970; 84550; 85025; 96523; G0463; J1642

== ENCOUNTER 2020-03-25 21:22 | Inpatient (IN) | payer MEDICARE, MEDICAID ==
[~2020-03-25] VITALS: Ht 170.2 cm; Wt 103.9 kg
[~2020-03-25 21:22] MED LIST changes: -SODIUM CHLORIDE 0.9% INJ 10 ML SYR IV PRN; -SODIUM CHLORIDE 0.9% INJ 10 ML SYR IV SCH
[2020-03-25 22:46] LABS: BASO # 0.1 10^3/uL (0.0-0.2); EOS # 0.1 10^3/uL (0.0-0.5); EOS % 1.6 % (0.0-3.0); HEMATOCRIT 33.6 % (36.0-47.0); HEMOGLOBIN 9.5 g/dl (12.0-15.5); LYMPH # 1.2 10^3/uL (1.5-5.0); LYMPH % 19.3 % (24.0-44.0); MEAN CORPUSCULAR HEMOGLOBIN 24.7 pg (27.0-33.0); MEAN CORPUSCULAR HGB CONC 28.3 g/dl (32.0-36.5); MEAN CORPUSCULAR VOLUME 87.3 fl (80.0-96.0); MONO # 0.5 10^3/uL (0.0-0.8); MONO % 8.4 % (0.0-5.0); NEUTROPHILS # 4.3 10^3/uL (1.5-8.5); NEUTROPHILS % 68.7 % (36.0-66.0); PLATELET COUNT, AUTOMATED 176 10^3/uL (150-450); RED BLOOD COUNT 3.85 10^6/uL (4.00-5.40); WHITE BLOOD COUNT 6.2 10^3/uL (4.0-10.0)
--- NOTE | 2020-03-25 23:34 | REPVR ---
PROCEDURE INFORMATION: Exam: XR Chest, 1 View Exam date and time: 03/25/2020 11:19 PM Age: 74 years old Clinical indication: Shortness of breath; Additional info: AMS TECHNIQUE: Imaging protocol: XR of the chest Views: 1 view. COMPARISON: CT Chest without contrast 03/05/2020 11:21 PM FINDINGS: Tubes, catheters and devices: Right Port-A-Cath in position. Multiple surgical clips are noted over the left hemithorax and upper left abdomen. Lungs: Haziness in the lateral left base appears to be similar to the prior study. There is decreased inflation of the lungs. Pleural space: Unremarkable. No pleural effusion. No pneumothorax. Heart/Mediastinum: The heart and mediastinum are unchanged. Bones/joints: Unremarkable. IMPRESSION: Essentially stable chest since 03/05/2020. Electronically signed by: Jose Hernandez On 03/25/2020 23:34:06 PM
--- NOTE | 2020-03-25 23:37 | REPVR ---
PROCEDURE INFORMATION: Exam: CT Head Without Contrast Exam date and time: 03/25/2020 11:08 PM Age: 74 years old Clinical indication: Altered mental status/memory loss; Confusion or disorientation; Additional info: AMS TECHNIQUE: Imaging protocol: Computed tomography of the head without contrast. Radiation optimization: All CT scans at this facility use at least one of these dose optimization techniques: automated exposure control; mA and/or kV adjustment per patient size (includes targeted exams where dose is matched to clinical indication); or iterative reconstruction. COMPARISON: CT Head without contrast 05/27/2018 11:02 AM FINDINGS: Brain: There is slight prominence of the peripheral sulci. 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 Cerebral ventricles: No ventriculomegaly. Bones/joints: Unremarkable. No acute fracture. Paranasal sinuses: Visualized sinuses are unremarkable. No fluid levels. Mastoid air cells: Visualized mastoid air cells are well aerated. Soft tissues: Unremarkable. 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 No acute interval intracranial process is identified. Electronically signed by: Jose Hernandez On 03/25/2020 23:37:03 PM
[2020-03-26 00:07] LABS: ACETAMINOPHEN LEVEL < 2.0 UG/ML (10.0-30.0); ALBUMIN 3.4 GM/DL (3.2-5.2); ALT/SGPT 36 U/L (12-78); BILIRUBIN,DIRECT < 0.1 MG/DL (0.0-0.2); BILIRUBIN,TOTAL 0.2 MG/DL (0.2-1.0); ETHYL ALCOHOL (ETHANOL) < 0.003 % (0.000-0.010); SALICYLATE LEVEL < 1.7 MG/DL (5.0-30.0); TOTAL PROTEIN 6.5 GM/DL (6.4-8.2)
[2020-03-26 01:06] LABS: RSV AMPLIFICATION NEGATIVE (NEGATIVE)
[2020-03-26 01:21] LABS: AMPHETAMINES LEVEL URINE NEGATIVE (NEGATIVE); BARBITURATES URINE POSITIVE (NEGATIVE); BENZODIAZEPINES URINE NEGATIVE (NEGATIVE); CANNABINOIDS URINE NEGATIVE (NEGATIVE); COCAINE METABOLITE URINE NEGATIVE (NEGATIVE); METHADONE URINE NEGATIVE (NEGATIVE); OPIATES URINE NEGATIVE (NEGATIVE); PHENCYCLIDINE URINE NEGATIVE (NEGATIVE)
[2020-03-26] MEDS ORDERED: MAALOX 30 ML SUSP *UDC PO PRN (02:00)
[2020-03-26] MEDS ORDERED: GLUCAGON INJ 1MG VIAL SC PRN (02:00)
[2020-03-26] MEDS ORDERED: DEXTROSE 50% 50 ML SYRINGE IV PRN (02:00)
[2020-03-26] MEDS ORDERED: GLUCOSE 4GM CHEW TABLET PO PRN (02:00)
[2020-03-26] MEDS ORDERED: MOM 30ML SUSPENSION UDC PO PRN (02:00)
[2020-03-26] MEDS: NS 1,000 ML IV SCH ×3 (02:18→22:24)
[2020-03-26 02:26] LABS: CALCIUM LEVEL 11.3 MG/DL (8.8-10.2); THYROID STIMULATING HORMONE 0.745 uIU/ML (0.358-3.740)
[2020-03-26] MEDS ORDERED: ALBUTEROL 90 MCG/ACT 8GM HFA INHALER INH PRN (05:00)
[2020-03-26] MEDS ORDERED: ALBUTEROL SULFATE 2.5 MG/0.5 ML INH NEB SOLN INH PRN (05:00)
[2020-03-26] MEDS ORDERED: NYSTATIN CREAM 15 GM TOP PRN (05:00)
[2020-03-26] MEDS ORDERED: ONDANSETRON 4 MG TAB PO PRN (05:00)
--- NOTE | 2020-03-26 05:03 | HPEPDOC ---
[facility] Medical History & Physical Date of Admission Mar 26, 2020 Date of Service: Mar 26, 2020 Primary Care Physician: Jr Villalobos Collins Attending Physician: TIGIST HERNANDEZ MD History and Physical TIME OF SERVICE: 400AM CHIEF COMPLAINT: lethargy HISTORY OF PRESENT ILLNESS: This 74 yr old F was brought to the ER because her noticed that she was lethargic and had a poor appetite. At the time of my assessment the patient was still lethargic but admitted to feeling tired, loosing her balance frequently (per chart review she is wheel chair bound) and dropping objects. 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 HOME MEDICATIONS: Please see below. PHYSICAL EXAMINATION: VITAL SIGNS: Please see below. GEN: well-nourished / well developed INTEGUMENT: not flushed/ not jaundice HEENT: lips acyanotic /mucus membranes moist and pink / neck short CVS: RRR/NMRG LUNGS: breath sounds are diminished ABDOMEN: Contour (obese) / soft & not tender with palpation MSK/EXTREMITIES: NCAT / is able to lift both arms of the bed / has difficulties lifting both legs of the bed against resistance NEURO: unable to assess because the patient seems to have difficulties understanding my instructions PSYCH: lethargic / inconsistently following commands LABORATORY DATA: See below. IMAGING: CT head "IMPRESSION: There has been little change from 05/27/2018 with minimal atrophy and small focus of old infarct in the posterior right parietal lobe. No acute interval intracranial process is identified." Chest xray "IMPRESSION: Essentially stable chest since 03/05/2020." MICROBIOLOGY: Please see below. 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 PLAN: 1. Encephalopathy May be due to oxycodone, hypercapnia, hyperammonemia, or other cause TBD The CT of her head and TSH were unrevealing UDS was positive for barbituates Plan: admit to medical floor / Neurochecks / f/u B12, B1, ammonia and VBG / hold oxycodone & scopolamine patch / the day time team may consider MRI of the brain 2. Mild Hypercalcemia Plan: IVF / f/u repeat Ca++, PTH and Phosphorus 3. COPD / Chronic O2 dependent respiratory failure (2L) ABG c/w chronic Metabolic Alkalosis 2/2 chronic respiratory failure Plan: Fluticasone & Albuterol inhalers 4. MATT/OHS Plan: BIPAP 5. Chronic Hypertension / Chronic HFpEF Plan: Atenolol, Spironolactone, Torsemide 6. IDDM Plan: f/u A1C, FSBS, carbohydrate consistent diet / SSI w hypoglycemia protocol / she is on Tresiba 66 units BID will start Levemir 15 units BID until she is more alert and eating 7. CKD 3 Plan: f/u BMP / Calcitriol 8. R parietal CVA Plan: Atorvastatin 9. Longstanding persistent afib Plan: Apixaban, Atenolol 10. Gout Plan: Allopurinol 11. Seizure disorder Plan: Levetiracetam 12. Chronic urinary retention with chronic suprapubic catheter in place 13. Obesity with BMI of 33.8 complicates care She has co-existing DM, HTN, DLP and MATT/OHS DVT PROPHYLAXIS: n/a on DOAC DISPOSITION: home after more than 2 midnight's stay Vital Signs Vital Signs Date Time Temp Pulse Resp B/P (MAP) Pulse Ox O2 Delivery O2 Flow Rate FiO2 03/26/20 03:45 82 14 156/67 (96) 92 Nasal Cannula 2.0 03/25/20 21:53 98.4 Laboratory Data Labs 24H Laboratory Tests 2 03/25/20 22:20: Immature Granulocyte % (Auto) 1.0, Neutrophils (%) (Auto) 68.7H, Lymphocytes (%) (Auto) 19.3L, Monocytes (%) (Auto) 8.4H, Eosinophils (%) (Auto) 1.6, Basophils (%) (Auto) 1.0, Neutrophils # (Auto) 4.3, Lymphocytes # (Auto) 1.2L, Monocytes # (Auto) 0.5, Eosinophils # (Auto) 0.1, Basophils # (Auto) 0.1, Nucleated Red Blood Cells % (auto) 0.0, Calcium Level 11.3H, Total Bilirubin 0.2, Direct Bilirubin < 0.1, Aspartate Amino Transf (AST/SGOT) 20, Alanine Aminotransferase (ALT/SGPT) 36, Alkaline Phosphatase 70, Total Protein 6.5, Albumin 3.4, Albumin/Globulin Ratio 1.1L, Thyroid Stimulating Hormone (TSH) 0.745, Salicylates Level < 1.7L, Acetaminophen Level < 2.0L, Ethyl Alcohol Level < 0.003 03/25/20 22:43: POC Glucose (Misc Panel) 240H, POC Sodium (Misc Panel) 135L, POC Potassium (Misc Panel) 4.0, POC Chloride (Misc Panel) 94L, POC Total CO2 (Misc Panel) 34.0H, POC Blood Urea Nitrogen (Misc Panel 48H, POC Ionized Calcium (Misc Panel) 6.0H, POC Creatinine (Misc Panel) 1.8H, POC Hematocrit (Misc Panel) 33.0L 03/25/20 22:49: POC Lactate (Misc Panel) 1.40 03/25/20 22:50: POC Total CO2 (Misc Panel) 39.0H, POC pH (Misc Panel) 7.431, POC Base Excess (Misc Panel) 13.0H, POC Saturated Percent O2 (Misc) 98, POC pO2 (Misc Panel) 101.0, POC pCO2 (Misc Panel) 56.3H, POC HCO3 (Misc Panel) 37.5H 03/25/20 22:51: POC Troponin I (Misc) 0.00 03/25/20 23:32: Urine Opiates Screen NEGATIVE, Urine Methadone Screen NEGATIVE, Urine Barbiturates Screen POSITIVEH, Urine Phencyclidine Screen NEGATIVE, Urine Amphetamines Screen NEGATIVE, Urine Benzodiazepines Screen NEGATIVE, Urine Cocaine Metabolite Screen NEGATIVE, Urine Cannabinoids Screen NEGATIVE 03/26/20 00:15: Coronavirus (COVID-19)(PCR) NEGATIVE, Influenza Type A (RT-PCR) NEGATIVE, Influenza Type B (RT-PCR) NEGATIVE, Respiratory Syncytial Virus (PCR) NEGATIVE 03/26/20 02:10: Ammonia 15 CBC/BMP Laboratory Tests 03/25/20 22:20 Home Medications Scheduled Allopurinol (Zyloprim) 300 Mg Tab, 300 MG PO DAILY Ammonium Lactate (Ammonium Lactate) 12 % Cre, 1 DOSE TOP BID APPLY TO LEGS/FEET Apixaban (Eliquis) 5 Mg Tablet, 5 MG PO BID Atenolol (Atenolol) 25 Mg Tablet, 25 MG PO BID Atorvastatin Calcium (Atorvastatin Calcium) 10 Mg Tab, 10 MG PO QHS Betamethasone Mala (Betamethasone Valerate) 45 Gm Oint, 1 DOSE TOP QHS USES ON LEGS FOR HOTSPOTS Calcitriol (Rocaltrol) 0.5 Mcg Capsule, 0.5 MCG PO DAILY Colchicine (Colchicine) 0.6 Mg Tab, 0.6 MG PO DAILY Cranberry Fruit Extract (Cranberry) 500 Mg Capsule, 500 MG PO TID Cyclosporine (Cequa) 0.09% Droperette, 1 DROP OU BID Docusate Sodium (Docusate Sodium) 100 Mg Cap, 100 MG PO BID Duloxetine Hcl (Cymbalta) 60 Mg Capsule.dr, 60 MG PO BID Ergocalciferol (Vitamin D2) (Vitamin D2) 50,000 Units Cap, 50,000 UNITS PO QMONTH 1ST OF EVERY MONTH Fluticasone Furoate (Arnuity Ellipta) 100 Mcg Blst.w.dev, 1 PUFF INH QHS Insulin Degludec (Tresiba Flextouch U-100) 100 Unit/Ml Inj, 66 UNITS SC BID Insulin Lispro (Humalog Kwikpen U-200) 200 Unit/1 Ml Insuln.pen, 1 DOSE SC ACHS PATIENT SPECIFIC SLIDING SCALE Lactulose (Lactulose) 10 Gm/15 Ml Solution, 30 ML PO BID Levetiracetam (Levetiracetam ER) 500 Mg Lindsay, 500 MG PO BID Nortriptyline HCl (Nortriptyline HCl) 10 Mg Capsule, 10 MG PO BID Omeprazole (Omeprazole) 20 Mg Cap, 20 MG PO BID Polyethylene Glycol 3350 (Miralax) 119 Gm Powder, 17 GM PO BID Pregabalin (Lyrica) 150 Mg Capsule, 150 MG PO TID Spironolactone (Spironolactone) 25 Mg Tablet, 25 MG PO BID Sucralfate (Sucralfate) 1 Gm Tab, 1 GM PO BID Torsemide (Torsemide) 100 Mg Tablet, 100 MG PO DAILY Scheduled PRN Albuterol Sulf (Albuterol Sulfate) 2.5 Mg/3 Ml Nebu, 2.5 MG INH QID PRN for SHORTNESS OF BREATH Albuterol Sulfate (Ventolin Hfa) 18 Gm Hfa.aer.ad, 2 PUFFS INH QID PRN for SHORTNESS OF BREATH Nystatin (Nystatin) 100,000 Unit/Gm Cre, 1 DOSE TOP BID PRN for RASH UNDER BREASTS AND GROIN AREA Ondansetron HCl (Ondansetron HCl) 4 Mg Tab, 4 MG PO QID PRN for NAUSEA OR VOMITING Oxycodone HCl/Acetaminophen (Oxycodone-Acetaminophen 5-325) 1 Each Tablet, 1 TAB PO BID PRN for PAIN Scopolamine (Transderm-Scop) 1 Each Patch.td.3, 1.5 MG TOP Q72H PRN for MOTION SICKNESS Miscellaneous Medications [Patient Comment] MED REC COMPLETED VIA EXTERNAL MED HISTORY, PREVIOUS DISCHARGE PAPERWORK (03/08/2020), AND PREVIOUS CLINIC VISIT (03/19/2020) Allergies Coded Allergies: Cephalosporins (Verified Allergy, Intermediate, hives, 07/09/19) Penicillins (Verified Allergy, Intermediate, hives, 07/09/19) Sulfa (Sulfonamide Antibiotics) (Verified Allergy, Intermediate, hives, 07/09/19) chlorpromazine (Verified Allergy, Intermediate, hiives, 07/09/19) loratadine (Verified Allergy, Intermediate, hives, 07/09/19) pentazocine (Verified Allergy, Intermediate, hives, 07/09/19) TAPE (Verified Allergy, Unknown, band-aids, 07/09/19) methadone (Verified Allergy, Unknown, 07/09/19) HAS HAD DILAUDID AND DEMEROL IN THE PAST A-FIB/CHADSVASC A-FIB History Current/History of A-Fib/PAF?: No Current PO Anticoag Therapy: No TIGIST HERNANDEZ MD Mar 26, 2020 05:03
[2020-03-26 06:32] LABS: VENOUS BASE EXCESS 6.6 (-2.0-2.0); VENOUS HCO3 32.1 MEQ/L (23.0-27.0); VENOUS O2 SATURATION 98.2 % (60.0-80.0); VENOUS PARTIAL PRESSURE O2 124.2 mmHg (30.0-50.0); VENOUS PH 7.425 UNITS (7.330-7.430); VENOUS STANDARD HCO3 30.5 MEQ/L; VENOUS TOTAL CO2 33.6 MEQ/L (24.0-28.0)
[2020-03-26] MEDS: HumaLOG INSULIN (NovoLOG) PER UNIT SC SCH ×5 (07:16→20:52)
[2020-03-26] MEDS: SUCRALFATE 1 GM TAB PO SCH ×2 (07:55→17:32)
[2020-03-26] MEDS: LACTIC ACID 12% LOTION 225 GM BTL TOP SCH ×2 (09:00→20:47)
[2020-03-26] MEDS ORDERED: ENOXAPARIN 40MG/0.4ML SYRINGE (J1650 PER 10MG) SC SCH (09:00)
[2020-03-26] MEDS: MIRALAX *UNIT DOSE* 17GM PACKET PO SCH ×2 (09:39→20:47)
[2020-03-26] MEDS: LACTULOSE 20 GM/30 ML SYRUP UD PO SCH ×2 (09:39→20:47)
[2020-03-26] MEDS: LEVEMIR (INSULIN DETEMIR) 1 UNITS/0.01ML SC SCH ×2 (09:40→20:53)
[2020-03-26] MEDS: atenoloL 25 MG TAB PO SCH ×2 (09:40→20:51)
[2020-03-26] MEDS: COLCHICINE 0.6 MG TABLET PO SCH (09:41)
[2020-03-26] MEDS: DOCUSATE SODIUM 100MG CAPSULE PO SCH ×2 (09:41→20:48)
[2020-03-26] MEDS: DULoxetine 30 MG CAP (CYMBALTA) PO SCH ×2 (09:41→20:48)
[2020-03-26] MEDS: OMEPRAZOLE 20 MG CAP PO SCH ×2 (09:41→20:48)
[2020-03-26] MEDS: PREGABALIN 75 MG CAP(LYRICA) PO SCH ×3 (09:41→20:49)
[2020-03-26] MEDS: APIXABAN 5 MG TAB (ELIQUIS) PO SCH ×2 (09:41→20:49)
[2020-03-26] MEDS: levETIRAcetam **XR** 500 MG TABLET PO SCH ×2 (09:42→22:49)
[2020-03-26] MEDS: NORTRIPTYLINE 10 MG CAP PO SCH ×2 (09:42→22:49)
[2020-03-26] MEDS: TORSEMIDE 100 MG TAB PO SCH (09:42)
[2020-03-26] MEDS: CALCITRIOL 0.25 MCG CAP (S0169) PO SCH (09:42)
[2020-03-26] MEDS: allopurinoL 300 MG TAB PO SCH (09:42)
[2020-03-26] MEDS: SPIRONOLACTONE 25 MG TAB PO SCH ×2 (12:27→20:50)
[2020-03-26 14:00] VITALS: BP 145/72
[2020-03-26 17:45] VITALS: BP 120/72
--- NOTE | 2020-03-26 18:13 | IPNPDOC ---
Text Note Date of Service The patient was seen on 03/26/20. NOTE SUBJECTIVE: -Shaking has resolved -She is still a bit sleepy this morning and complaining of LE neuropathy pain reporting numbing pain in both LEs. PHYSICAL EXAMINATION: VITAL SIGNS: Please see below. GEN: Ill appearing, obese, NAD INTEGUMENT: not flushed/ not jaundice HEENT: lips acyanotic /mucus membranes dry and pink / neck short/ poor dentition with missing bottom denture CVS: RRR/NMRG LUNGS: breath sounds are diminished ABDOMEN: Contour (obese) / soft & not tender with palpation MSK/EXTREMITIES: NCAT / is able to lift both arms and legs off the bed NEURO: AOx3, however is a poor historian, clear speech, CN3-12 intact, moving all extremities, no tremor noted this morning PSYCH: AOx3, poor historian LABORATORY DATA: Reviewed. AM labs pending. IMAGING: CT head "IMPRESSION: There has been little change from 05/27/2018 with minimal atrophy and small focus of old infarct in the posterior right parietal lobe. No acute interval intracranial process is identified." Chest xray "IMPRESSION: Essentially stable chest since 03/05/2020." MICROBIOLOGY: Please see below. 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 PLAN: 1. Encephalopathy May be due to psychotropic meds as she is on multiple pain and psych meds that are centrally acting -The CT of her head and TSH were unrevealing -UDS was positive for barbituates -continue neurochecks -f/u B12, B1 -ammonia and VBG were unrevealing -continue to hold oxycodone & scopolamine patch -with resolution of lethargy and tremor/jerking, will hold off further brain imaging at this time as this resolved with hold meds 2. Mild Hypercalcemia -s/p IVF -f/u repeat Ca -PTH and Phosphorus 3. COPD / Chronic O2 dependent respiratory failure (2L) ABG c/w chronic Metabolic Alkalosis 2/2 chronic respiratory failure -continue home Fluticasone & Albuterol inhalers 4. MATT/OHS -continue home BIPAP 5. Chronic Hypertension / Chronic HFpEF -continue Atenolol, Spironolactone, Torsemide 6. IDDM -A1C, FSBS, carbohydrate consistent diet / SSI w hypoglycemia protocol / she is on Tresiba 66 units BID will continue Levemir 15 units BID for now until she is at baseline PO 7. CKD 3 -daily BMP -continue home calcitriol 8. History of R parietal CVA -continue home Atorvastatin 9. Longstanding persistent afib -Apixaban, Atenolol 10. Gout -Allopurinol 11. Seizure disorder -Levetiracetam 12. Chronic urinary retention with chronic suprapubic catheter in place 13. Obesity with BMI of 33.8 complicates care She has co-existing DM, HTN, DLP and MATT/OHS DVT PROPHYLAXIS: continue home eliquis DISPOSITION: home after more than 2 midnight's stay. PT/OT VS,Fishbone, I+O VS, Fishbone, I+O Laboratory Tests 03/25/20 22:20 Vital Signs Date Time Temp Pulse Resp B/P (MAP) Pulse Ox O2 Delivery O2 Flow Rate FiO2 03/26/20 14:00 96.2 85 21 145/72 (96) 100 Room Air 03/26/20 11:30 2.0 HARSHA ESCOBAR MD Mar 26, 2020 18:14
[2020-03-26 19:28] LABS: HEMATOCRIT 36.9 % (36.0-47.0); HEMOGLOBIN 9.6 g/dl (12.0-15.5); MEAN CORPUSCULAR HEMOGLOBIN 23.9 pg (27.0-33.0); MEAN CORPUSCULAR VOLUME 91.8 fl (80.0-96.0); PLATELET COUNT, AUTOMATED 167 10^3/uL (150-450); RED BLOOD COUNT 4.02 10^6/uL (4.00-5.40); WHITE BLOOD COUNT 4.7 10^3/uL (4.0-10.0)
[2020-03-26 19:36] LABS: CREATININE FOR GFR 1.97 MG/DL (0.55-1.30); GLOMERULAR FILTRATION RATE 26.3 (>39); POTASSIUM SERUM 5.6 MEQ/L (3.5-5.1)
[2020-03-26] MEDS: FLUTICASONE HFA 110 MCG 12 GM INHALER (FLOVENT) INH SCH (20:21)
[2020-03-26] MEDS: ATORVASTATIN 10 MG TAB PO SCH (20:48)
[2020-03-26 22:00] VITALS: BP 155/70
[2020-03-26] MEDS: BETAMETHASONE VAL 0.1% OINT 15 GM TOP SCH (22:49)
[2020-03-27] MEDS: SUCRALFATE 1 GM TAB PO SCH ×2 (05:23→18:07)
[2020-03-27 05:42] LABS: HEMOGLOBIN 8.8 g/dl (12.0-15.5); MEAN CORPUSCULAR HEMOGLOBIN 24.6 pg (27.0-33.0); MEAN CORPUSCULAR HGB CONC 28.4 g/dl (32.0-36.5); MEAN CORPUSCULAR VOLUME 86.8 fl (80.0-96.0); PLATELET COUNT, AUTOMATED 160 10^3/uL (150-450); RED BLOOD COUNT 3.57 10^6/uL (4.00-5.40); WHITE BLOOD COUNT 6.2 10^3/uL (4.0-10.0)
[2020-03-27 06:00] VITALS: BP 138/62
[2020-03-27 06:28] LABS: ALBUMIN 3.1 GM/DL (3.2-5.2); BILIRUBIN,TOTAL 0.3 MG/DL (0.2-1.0); CALCIUM LEVEL 9.9 MG/DL (8.8-10.2); CREATININE FOR GFR 1.87 MG/DL (0.55-1.30); GLOMERULAR FILTRATION RATE 27.9 (>39); TOTAL PROTEIN 6.1 GM/DL (6.4-8.2)
[2020-03-27] MEDS: HumaLOG INSULIN (NovoLOG) PER UNIT SC SCH ×4 (08:03→20:09)
[2020-03-27] MEDS: MIRALAX *UNIT DOSE* 17GM PACKET PO SCH ×2 (08:03→20:07)
[2020-03-27] MEDS: LACTULOSE 20 GM/30 ML SYRUP UD PO SCH ×2 (08:04→20:09)
[2020-03-27] MEDS: CALCITRIOL 0.25 MCG CAP (S0169) PO SCH (08:04)
[2020-03-27] MEDS: LEVEMIR (INSULIN DETEMIR) 1 UNITS/0.01ML SC SCH ×2 (08:04→20:08)
[2020-03-27] MEDS: COLCHICINE 0.6 MG TABLET PO SCH (08:05)
[2020-03-27] MEDS: PREGABALIN 75 MG CAP(LYRICA) PO SCH ×3 (08:05→20:11)
[2020-03-27] MEDS: NORTRIPTYLINE 10 MG CAP PO SCH ×2 (08:05→20:14)
[2020-03-27] MEDS: SPIRONOLACTONE 25 MG TAB PO SCH ×2 (08:05→20:14)
[2020-03-27] MEDS: DULoxetine 30 MG CAP (CYMBALTA) PO SCH ×2 (08:05→20:12)
[2020-03-27] MEDS: OMEPRAZOLE 20 MG CAP PO SCH ×2 (08:05→20:13)
[2020-03-27] MEDS: APIXABAN 5 MG TAB (ELIQUIS) PO SCH ×2 (08:05→20:11)
[2020-03-27] MEDS: allopurinoL 300 MG TAB PO SCH (08:05)
[2020-03-27] MEDS: DOCUSATE SODIUM 100MG CAPSULE PO SCH ×2 (08:05→20:11)
[2020-03-27] MEDS: levETIRAcetam **XR** 500 MG TABLET PO SCH ×2 (08:05→20:13)
[2020-03-27] MEDS: TORSEMIDE 100 MG TAB PO SCH (08:06)
[2020-03-27] MEDS: atenoloL 25 MG TAB PO SCH ×2 (08:10→20:15)
[2020-03-27] MEDS: NS 1,000 ML IV SCH (08:11)
[2020-03-27] MEDS: ACETAMINOPHEN TAB 650MG DOSE (2X325MG) PO PRN (08:26)
[2020-03-27] MEDS: LACTIC ACID 12% LOTION 225 GM BTL TOP SCH ×2 (08:26→20:09)
[2020-03-27 09:00] VITALS: O2SAT 100
[2020-03-27 09:37] LABS: PTH INTACT 18.6 PG/ML (18.5-88.0)
[2020-03-27] MEDS ORDERED: SODIUM CHLORIDE 0.9% INJ 10 ML SYR IV PRN (11:45)
--- NOTE | 2020-03-27 12:05 | IPNPDOC ---
Text Note Date of Service The patient was seen on 03/27/20. NOTE SUBJECTIVE: -Shaking completely resolved now PHYSICAL EXAMINATION: VITAL SIGNS: Please see below. GEN: Ill appearing, obese, NAD INTEGUMENT: not flushed/ not jaundice HEENT: lips acyanotic /mucus membranes dry and pink / neck short/ poor dentition with missing bottom denture CVS: RRR/NMRG LUNGS: breath sounds are diminished ABDOMEN: Contour (obese) / soft & not tender with palpation MSK/EXTREMITIES: NCAT / is able to lift both arms and legs off the bed NEURO: AOx3, however is a poor historian, clear speech, CN3-12 intact, moving all extremities, no tremors, 3/5 strength in both UE and LE PSYCH: AOx3 LABORATORY DATA: Reviewed. IMAGING: CT head "IMPRESSION: There has been little change from 05/27/2018 with minimal atrophy and small focus of old infarct in the posterior right parietal lobe. No acute interval intracranial process is identified." Chest xray "IMPRESSION: Essentially stable chest since 03/05/2020." MICROBIOLOGY: Please see below. 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 PLAN: Encephalopathy: much improved, resolving. Likely due to psychotropic meds as she is on multiple pain and psych meds that are centrally acting -The CT of her head and TSH were unrevealing -UDS was positive for barbituates -Discontinue neurochecks -f/u B12, B1 -ammonia and VBG were unrevealing -continue to hold oxycodone & scopolamine patch -with resolution of lethargy and tremor/jerking, will hold off further brain imaging at this time as this resolved with hold meds 2. Debility: chronic, slowly getting worse with significant weakness, having difficulty getting into wheelchair and driving it at home -pending PT/OT 2. Mild Hypercalcemia: resolved -s/p IVF -PTH and Phosphorus 3. COPD / Chronic O2 dependent respiratory failure (2L) ABG c/w chronic Metabolic Alkalosis 2/2 chronic respiratory failure -continue home Fluticasone & Albuterol inhalers 4. MATT/OHS -continue home BIPAP 5. Chronic Hypertension / Chronic HFpEF -continue Atenolol, Spironolactone, Torsemide 6. IDDM -A1C, FSBS, carbohydrate consistent diet / SSI w hypoglycemia protocol / she is on Tresiba 66 units BID will continue Levemir 15 units BID for now until she is at baseline PO 7. CKD 3 -daily BMP -continue home calcitriol 8. History of R parietal CVA -continue home Atorvastatin 9. Longstanding persistent afib -Apixaban, Atenolol 10. Gout -Allopurinol 11. Seizure disorder -Levetiracetam 12. Chronic urinary retention with chronic suprapubic catheter in place 13. Obesity with BMI of 33.8 complicates care She has co-existing DM, HTN, DLP and MATT/OHS DVT PROPHYLAXIS: continue home eliquis DISPOSITION: home after more than 2 midnight's stay. PT/OT VS,Lola, I+O VS, Lola, I+O Laboratory Tests 03/27/20 05:27 Vital Signs Date Time Temp Pulse Resp B/P (MAP) Pulse Ox O2 Delivery O2 Flow Rate FiO2 03/27/20 09:00 2.0 03/27/20 08:10 64 118/52 03/27/20 06:00 97.6 19 97 Nasal Cannula I&O- Last 24 Hours up to 6 AM 03/27/20 06:00 Intake Total 2620 ml Output Total 5200 ml Balance -2580 ml HARSHA ESCOBAR MD Mar 27, 2020 12:05
[2020-03-27 14:00] VITALS: BP 125/61
[2020-03-27] MEDS: BETAMETHASONE VAL 0.1% OINT 15 GM TOP SCH (20:09)
[2020-03-27] MEDS: FLUTICASONE HFA 110 MCG 12 GM INHALER (FLOVENT) INH SCH (20:10)
[2020-03-27] MEDS: ATORVASTATIN 10 MG TAB PO SCH (20:13)
[2020-03-27 21:00] VITALS: O2SAT 100
[2020-03-27 22:00] VITALS: BP 121/57
[2020-03-28] MEDS: SUCRALFATE 1 GM TAB PO SCH ×2 (05:09→17:12)
[2020-03-28 05:31] LABS: HEMATOCRIT 30.1 % (36.0-47.0); HEMOGLOBIN 8.6 g/dl (12.0-15.5); MEAN CORPUSCULAR HEMOGLOBIN 24.8 pg (27.0-33.0); MEAN CORPUSCULAR HGB CONC 28.6 g/dl (32.0-36.5); MEAN CORPUSCULAR VOLUME 86.7 fl (80.0-96.0); PLATELET COUNT, AUTOMATED 150 10^3/uL (150-450); RED BLOOD COUNT 3.47 10^6/uL (4.00-5.40); WHITE BLOOD COUNT 5.6 10^3/uL (4.0-10.0)
[2020-03-28 06:00] VITALS: BP 130/62
[2020-03-28 06:09] LABS: CALCIUM LEVEL 9.5 MG/DL (8.8-10.2); CREATININE FOR GFR 1.92 MG/DL (0.55-1.30); GLOMERULAR FILTRATION RATE 27.1 (>39); POTASSIUM SERUM 3.8 MEQ/L (3.5-5.1)
[2020-03-28] MEDS: LACTULOSE 20 GM/30 ML SYRUP UD PO SCH ×2 (08:28→22:17)
[2020-03-28] MEDS: COLCHICINE 0.6 MG TABLET PO SCH (08:28)
[2020-03-28] MEDS: DULoxetine 30 MG CAP (CYMBALTA) PO SCH ×2 (08:28→22:16)
[2020-03-28] MEDS: NORTRIPTYLINE 10 MG CAP PO SCH ×2 (08:28→22:16)
[2020-03-28] MEDS: TORSEMIDE 100 MG TAB PO SCH (08:29)
[2020-03-28] MEDS: APIXABAN 5 MG TAB (ELIQUIS) PO SCH ×2 (08:29→22:16)
[2020-03-28] MEDS: allopurinoL 300 MG TAB PO SCH (08:29)
[2020-03-28] MEDS: DOCUSATE SODIUM 100MG CAPSULE PO SCH ×2 (08:29→22:16)
[2020-03-28] MEDS: levETIRAcetam **XR** 500 MG TABLET PO SCH ×2 (08:29→22:17)
[2020-03-28] MEDS: OMEPRAZOLE 20 MG CAP PO SCH ×2 (08:30→22:16)
[2020-03-28] MEDS: CALCITRIOL 0.25 MCG CAP (S0169) PO SCH (08:30)
[2020-03-28] MEDS: PREGABALIN 75 MG CAP(LYRICA) PO SCH ×3 (08:30→22:17)
[2020-03-28] MEDS: SPIRONOLACTONE 25 MG TAB PO SCH ×2 (08:30→22:17)
[2020-03-28] MEDS: MIRALAX *UNIT DOSE* 17GM PACKET PO SCH ×2 (08:30→22:17)
[2020-03-28] MEDS: ACETAMINOPHEN TAB 650MG DOSE (2X325MG) PO PRN ×2 (08:31→17:13)
[2020-03-28] MEDS: atenoloL 25 MG TAB PO SCH ×2 (08:31→22:19)
[2020-03-28] MEDS: LEVEMIR (INSULIN DETEMIR) 1 UNITS/0.01ML SC SCH ×2 (08:32→22:20)
[2020-03-28] MEDS: SODIUM CHLORIDE 0.9% INJ 10 ML SYR IV SCH (08:32)
[2020-03-28] MEDS: HumaLOG INSULIN (NovoLOG) PER UNIT SC SCH ×4 (08:33→22:20)
[2020-03-28] MEDS: LACTIC ACID 12% LOTION 225 GM BTL TOP SCH ×2 (08:34→22:22)
--- NOTE | 2020-03-28 11:10 | IPNPDOC ---
Text Note Date of Service The patient was seen on 03/28/20. NOTE SUBJECTIVE: -No acute events -Spoke with her and updated him about the ongoing weakness that has been slowly progressive and that we will have PT give recommendations before we make a decision about discharge plan. PHYSICAL EXAMINATION: VITAL SIGNS: Please see below. GEN: Ill appearing, obese, NAD INTEGUMENT: not flushed/ not jaundice HEENT: lips acyanotic /mucus membranes dry and pink / neck short/ poor dentition with missing bottom denture CVS: RRR/NMRG LUNGS: breath sounds are diminished ABDOMEN: Contour (obese) / soft & not tender with palpation MSK/EXTREMITIES: NCAT / is able to lift both arms and legs off the bed NEURO: AOx3, however is a poor historian, clear speech, CN3-12 intact, moving all extremities, no tremors, 4/5 strength in both UE and LE PSYCH: AOx3 LABORATORY DATA: Reviewed. Stable. IMAGING: CT head "IMPRESSION: There has been little change from 05/27/2018 with minimal atrophy and small focus of old infarct in the posterior right parietal lobe. No acute interval intracranial process is identified." Chest xray "IMPRESSION: Essentially stable chest since 03/05/2020." MICROBIOLOGY: Please see below. 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 PLAN: Encephalopathy: much improved, resolving. Likely due to psychotropic meds as she is on multiple pain and psych meds that are centrally acting -The CT of her head and TSH were unrevealing -UDS was positive for barbituates -Discontinue neurochecks -f/u B12, B1 -ammonia and VBG were unrevealing -continue to hold oxycodone & scopolamine patch -with resolution of lethargy and tremor/jerking, will hold off further brain imaging at this time as this resolved with holding meds 2. Debility: chronic, slowly getting worse with significant weakness, having difficulty getting into wheelchair and driving it at home -pending PT/OT recs 2. Mild Hypercalcemia: resolved -s/p IVF -PTH and Phosphorus 3. COPD / Chronic O2 dependent respiratory failure (2L) ABG c/w chronic Metabolic Alkalosis 2/2 chronic respiratory failure -continue home Fluticasone & Albuterol inhalers 4. MATT/OHS -continue home BIPAP 5. Chronic Hypertension / Chronic HFpEF -continue Atenolol, Spironolactone, Torsemide 6. IDDM -FSBS, carbohydrate consistent diet / SSI w hypoglycemia protocol / she is on Tresiba 66 units BID will continue Levemir 15 units BID for now until she is at baseline PO 7. CKD 3 -daily BMP -continue home calcitriol 8. History of R parietal CVA -continue home Atorvastatin 9. Longstanding persistent afib -Apixaban, Atenolol 10. Gout -Allopurinol 11. Seizure disorder -Levetiracetam 12. Chronic urinary retention with chronic suprapubic catheter in place 13. Obesity with BMI of 33.8 complicates care She has co-existing DM, HTN, DLP and MATT/OHS DVT PROPHYLAXIS: continue home eliquis DISPOSITION: home after more than 2 midnight's stay. PT/OT VS,Fishbone, I+O VS, Fishbone, I+O Laboratory Tests 03/28/20 05:13 Vital Signs Date Time Temp Pulse Resp B/P (MAP) Pulse Ox O2 Delivery O2 Flow Rate FiO2 03/28/20 08:31 64 124/58 03/28/20 06:00 97.7 21 99 Nasal Cannula 2.0 I&O- Last 24 Hours up to 6 AM0 03/28/20 06:00 Intake Total 3220 ml Output Total 4675 ml Balance -1455 ml HARSHA ESCOBAR MD Mar 28, 2020 09:04
[2020-03-28 14:00] VITALS: BP 124/60
[2020-03-28 16:00] VITALS: O2SAT 100
[2020-03-28] MEDS: FLUTICASONE HFA 110 MCG 12 GM INHALER (FLOVENT) INH SCH (20:31)
[2020-03-28 22:00] VITALS: BP 123/60
[2020-03-28] MEDS: ATORVASTATIN 10 MG TAB PO SCH (22:17)
[2020-03-28] MEDS: BETAMETHASONE VAL 0.1% OINT 15 GM TOP SCH (22:22)
[2020-03-29 02:53] VITALS: O2SAT 99
[2020-03-29] MEDS: SUCRALFATE 1 GM TAB PO SCH ×2 (05:30→17:08)
[2020-03-29] MEDS: ACETAMINOPHEN TAB 650MG DOSE (2X325MG) PO PRN (05:33)
[2020-03-29 05:55] LABS: HEMATOCRIT 31.6 % (36.0-47.0); HEMOGLOBIN 8.7 g/dl (12.0-15.5); MEAN CORPUSCULAR HEMOGLOBIN 23.8 pg (27.0-33.0); MEAN CORPUSCULAR HGB CONC 27.5 g/dl (32.0-36.5); MEAN CORPUSCULAR VOLUME 86.3 fl (80.0-96.0); PLATELET COUNT, AUTOMATED 155 10^3/uL (150-450); RED BLOOD COUNT 3.66 10^6/uL (4.00-5.40); WHITE BLOOD COUNT 6.6 10^3/uL (4.0-10.0)
[2020-03-29 06:00] VITALS: BP 117/54
[2020-03-29 06:28] LABS: CALCIUM LEVEL 9.5 MG/DL (8.8-10.2); CREATININE FOR GFR 1.8 MG/DL (0.55-1.30); GLOMERULAR FILTRATION RATE 29.2 (>39); POTASSIUM SERUM 3.7 MEQ/L (3.5-5.1)
[2020-03-29] MEDS: FLUTICASONE HFA 110 MCG 12 GM INHALER (FLOVENT) INH SCH ×2 (07:55→20:00)
[2020-03-29] MEDS: NORTRIPTYLINE 10 MG CAP PO SCH ×2 (08:16→20:36)
[2020-03-29] MEDS: LEVEMIR (INSULIN DETEMIR) 1 UNITS/0.01ML SC SCH ×2 (08:17→20:38)
[2020-03-29] MEDS: PREGABALIN 75 MG CAP(LYRICA) PO SCH ×3 (08:17→20:35)
[2020-03-29] MEDS: TORSEMIDE 100 MG TAB PO SCH (08:18)
[2020-03-29] MEDS: HumaLOG INSULIN (NovoLOG) PER UNIT SC SCH ×4 (08:18→20:39)
[2020-03-29] MEDS: levETIRAcetam **XR** 500 MG TABLET PO SCH ×2 (08:18→20:37)
[2020-03-29] MEDS: CALCITRIOL 0.25 MCG CAP (S0169) PO SCH (08:18)
[2020-03-29] MEDS: atenoloL 25 MG TAB PO SCH ×2 (08:18→20:40)
[2020-03-29] MEDS: OMEPRAZOLE 20 MG CAP PO SCH ×2 (08:19→20:36)
[2020-03-29] MEDS: COLCHICINE 0.6 MG TABLET PO SCH (08:19)
[2020-03-29] MEDS: SPIRONOLACTONE 25 MG TAB PO SCH ×2 (08:19→20:36)
[2020-03-29] MEDS: LACTULOSE 20 GM/30 ML SYRUP UD PO SCH ×2 (08:19→20:36)
[2020-03-29] MEDS: APIXABAN 5 MG TAB (ELIQUIS) PO SCH ×2 (08:19→20:36)
[2020-03-29] MEDS: DOCUSATE SODIUM 100MG CAPSULE PO SCH ×2 (08:19→20:36)
[2020-03-29] MEDS: MIRALAX *UNIT DOSE* 17GM PACKET PO SCH ×2 (08:19→20:37)
[2020-03-29] MEDS: allopurinoL 300 MG TAB PO SCH (08:19)
[2020-03-29] MEDS: DULoxetine 30 MG CAP (CYMBALTA) PO SCH ×2 (08:19→20:36)
[2020-03-29] MEDS: SODIUM CHLORIDE 0.9% INJ 10 ML SYR IV SCH (08:47)
[2020-03-29] MEDS: LACTIC ACID 12% LOTION 225 GM BTL TOP SCH ×2 (08:50→20:37)
[2020-03-29 14:00] VITALS: BP 149/57
--- NOTE | 2020-03-29 14:59 | IPNPDOC ---
Text Note Date of Service The patient was seen on 03/29/20. NOTE SUBJECTIVE: -No acute events -Requiring the porfirio stedy lift and is winded after transfer to chair PHYSICAL EXAMINATION: VITAL SIGNS: Please see below. GEN: Ill appearing, obese, NAD INTEGUMENT: not flushed/ not jaundice HEENT: lips acyanotic /mucus membranes dry and pink / neck short/ poor dentition with missing bottom denture CVS: RRR/NMRG LUNGS: breath sounds are diminished ABDOMEN: Contour (obese) / soft & not tender with palpation MSK/EXTREMITIES: NCAT / is able to lift both arms and legs off the bed NEURO: AOx3, however is a poor historian, clear speech, CN3-12 intact, moving all extremities, no tremors, 4/5 strength in both UE and LE PSYCH: AOx3 LABORATORY DATA: Reviewed. Stable. IMAGING: CT head "IMPRESSION: There has been little change from 05/27/2018 with minimal atrophy and small focus of old infarct in the posterior right parietal lobe. No acute interval intracranial process is identified." Chest xray "IMPRESSION: Essentially stable chest since 03/05/2020." MICROBIOLOGY: Please see below. 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 PLAN: Encephalopathy: much improved, resolving. Likely due to psychotropic meds as she is on multiple pain and psych meds that are centrally acting -The CT of her head and TSH were unrevealing -UDS was positive for barbituates -Discontinue neurochecks -f/u B12, B1 -ammonia and VBG were unrevealing -continue to hold oxycodone & scopolamine patch -with resolution of lethargy and tremor/jerking, will hold off further brain imaging at this time as this resolved with holding meds 2. Debility: chronic, slowly getting worse with significant weakness, having difficulty getting into wheelchair and driving it at home -pending PT/OT recs. Currently requiring porfirio stedy 2. Mild Hypercalcemia: resolved -s/p IVF -PTH and Phosphorus 3. COPD / Chronic O2 dependent respiratory failure (2L) ABG c/w chronic Metabolic Alkalosis 2/2 chronic respiratory failure -continue home Fluticasone & Albuterol inhalers 4. MATT/OHS -continue home BIPAP 5. Chronic Hypertension / Chronic HFpEF -continue Atenolol, Spironolactone, Torsemide 6. IDDM -FSBS, carbohydrate consistent diet / SSI w hypoglycemia protocol / she is on Tresiba 66 units BID will continue Levemir 15 units BID for now until she is at baseline PO 7. CKD 3 -daily BMP -continue home calcitriol 8. History of R parietal CVA -continue home Atorvastatin 9. Longstanding persistent afib -Apixaban, Atenolol 10. Gout -Allopurinol 11. Seizure disorder -Levetiracetam 12. Chronic urinary retention with chronic suprapubic catheter in place 13. Obesity with BMI of 33.8 complicates care She has co-existing DM, HTN, DLP and MATT/OHS DVT PROPHYLAXIS: continue home eliquis DISPOSITION: home after more than 2 midnight's stay. PT/OT recs for safe discharge planning VS,Lola, I+O VS, Regise, I+O Laboratory Tests 03/29/20 05:44 Vital Signs Date Time Temp Pulse Resp B/P (MAP) Pulse Ox O2 Delivery O2 Flow Rate FiO2 03/29/20 09:57 2.0 03/29/20 08:18 62 117/54 03/29/20 06:00 96.8 16 98 Nasal Cannula I&O- Last 24 Hours up to 6 AM 03/29/20 06:00 Intake Total 2175 ml Output Total 3175 ml Balance -1000 ml HARSHA ESCOBAR MD Mar 29, 2020 10:47
[2020-03-29] MEDS: BETAMETHASONE VAL 0.1% OINT 15 GM TOP SCH (20:37)
[2020-03-29] MEDS: ATORVASTATIN 10 MG TAB PO SCH (20:37)
[2020-03-29 22:00] VITALS: BP 131/54
[2020-03-30] MEDS: ACETAMINOPHEN TAB 650MG DOSE (2X325MG) PO PRN ×2 (00:29→22:47)
[2020-03-30 03:53] VITALS: O2SAT 99
[2020-03-30] MEDS: SUCRALFATE 1 GM TAB PO SCH ×2 (05:36→17:24)
[2020-03-30 05:52] LABS: HEMOGLOBIN 8.8 g/dl (12.0-15.5); MEAN CORPUSCULAR HGB CONC 28.4 g/dl (32.0-36.5); MEAN CORPUSCULAR VOLUME 84.7 fl (80.0-96.0); PLATELET COUNT, AUTOMATED 150 10^3/uL (150-450); RED BLOOD COUNT 3.66 10^6/uL (4.00-5.40); WHITE BLOOD COUNT 6.1 10^3/uL (4.0-10.0)
[2020-03-30 06:00] VITALS: BP 102/55
[2020-03-30 07:12] LABS: CALCIUM LEVEL 9.9 MG/DL (8.8-10.2); CREATININE FOR GFR 1.78 MG/DL (0.55-1.30); GLOMERULAR FILTRATION RATE 29.6 (>39); POTASSIUM SERUM 3.6 MEQ/L (3.5-5.1)
[2020-03-30] MEDS: FLUTICASONE HFA 110 MCG 12 GM INHALER (FLOVENT) INH SCH ×2 (07:26→20:08)
[2020-03-30] MEDS: atenoloL 25 MG TAB PO SCH ×2 (09:00→22:33)
[2020-03-30] MEDS: HumaLOG INSULIN (NovoLOG) PER UNIT SC SCH ×4 (09:18→22:36)
[2020-03-30] MEDS: LEVEMIR (INSULIN DETEMIR) 1 UNITS/0.01ML SC SCH ×2 (09:18→22:34)
[2020-03-30] MEDS: levETIRAcetam **XR** 500 MG TABLET PO SCH ×2 (09:19→22:31)
[2020-03-30] MEDS: NORTRIPTYLINE 10 MG CAP PO SCH ×2 (09:19→22:31)
[2020-03-30] MEDS: PREGABALIN 75 MG CAP(LYRICA) PO SCH ×3 (09:20→22:32)
[2020-03-30] MEDS: LACTULOSE 20 GM/30 ML SYRUP UD PO SCH ×2 (09:20→22:31)
[2020-03-30] MEDS: DULoxetine 30 MG CAP (CYMBALTA) PO SCH ×2 (09:20→22:32)
[2020-03-30] MEDS: MIRALAX *UNIT DOSE* 17GM PACKET PO SCH ×2 (09:20→22:36)
[2020-03-30] MEDS: CALCITRIOL 0.25 MCG CAP (S0169) PO SCH (09:20)
[2020-03-30] MEDS: DOCUSATE SODIUM 100MG CAPSULE PO SCH ×2 (09:21→22:32)
[2020-03-30] MEDS: allopurinoL 300 MG TAB PO SCH (09:21)
[2020-03-30] MEDS: APIXABAN 5 MG TAB (ELIQUIS) PO SCH ×2 (09:21→22:33)
[2020-03-30] MEDS: OMEPRAZOLE 20 MG CAP PO SCH ×2 (09:21→22:32)
[2020-03-30] MEDS: SODIUM CHLORIDE 0.9% INJ 10 ML SYR IV SCH (09:23)
[2020-03-30] MEDS: LACTIC ACID 12% LOTION 225 GM BTL TOP SCH ×2 (09:23→22:40)
[2020-03-30] MEDS: SPIRONOLACTONE 25 MG TAB PO SCH ×2 (09:42→22:31)
[2020-03-30] MEDS: TORSEMIDE 100 MG TAB PO SCH (09:42)
[2020-03-30] MEDS: COLCHICINE 0.6 MG TABLET PO SCH (09:42)
[2020-03-30 14:00] VITALS: BP 104/51
--- NOTE | 2020-03-30 16:08 | IPNPDOC ---
Text Note Date of Service The patient was seen on 03/30/20. NOTE SUBJECTIVE: -No acute events -Updated her PHYSICAL EXAMINATION: VITAL SIGNS: Please see below. GEN: Ill appearing, obese, NAD INTEGUMENT: not flushed/ not jaundice, RLE with receeding erythema and scabbed over arroyo wound without drainage and forehead bruising from recent fall HEENT: lips acyanotic /mucus membranes dry and pink / neck short/ poor dentition with missing bottom denture CVS: RRR/NMRG LUNGS: breath sounds are diminished ABDOMEN: Contour (obese) / soft & not tender with palpation MSK/EXTREMITIES: NCAT / is able to lift both arms and legs off the bed NEURO: AOx3, however is a poor historian, clear speech, CN3-12 intact, moving all extremities, no tremors, 4/5 strength in both UE and LE PSYCH: AOx3 LABORATORY DATA: Reviewed. Stable. IMAGING: CT head "IMPRESSION: There has been little change from 05/27/2018 with minimal atrophy and small focus of old infarct in the posterior right parietal lobe. No acute interval intracranial process is identified." Chest xray "IMPRESSION: Essentially stable chest since 03/05/2020." MICROBIOLOGY: Please see below. 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 PLAN: Encephalopathy: much improved, resolving. Likely due to psychotropic meds as she is on multiple pain and psych meds that are centrally acting -The CT of her head and TSH were unrevealing -UDS was positive for barbituates -ammonia and VBG were unrevealing -continue to hold oxycodone & scopolamine patch -with resolution of lethargy and tremor/jerking, will hold off further brain imaging at this time as this resolved with holding meds 2. Debility: chronic, slowly getting worse with significant weakness, having difficulty getting into wheelchair and driving it at home -pending PT/OT recs on transfer plan, reports having a lift? at home. Currently requiring porfirio stedy 2. Mild Hypercalcemia: resolved -s/p IVF -PTH and Phosphorus 3. COPD / Chronic O2 dependent respiratory failure (2L) ABG c/w chronic Metabolic Alkalosis 2/2 chronic respiratory failure -continue home Fluticasone & Albuterol inhalers 4. MATT/OHS -continue home BIPAP 5. Chronic Hypertension / Chronic HFpEF -continue Atenolol, Spironolactone, Torsemide 6. IDDM -FSBS, carbohydrate consistent diet / SSI w hypoglycemia protocol / she is on Tresiba 66 units BID will continue Levemir 15 units BID for now until she is at baseline PO 7. CKD 3 -daily BMP -continue home calcitriol 8. History of R parietal CVA -continue home Atorvastatin 9. Longstanding persistent afib -Apixaban, Atenolol 10. Gout -Allopurinol 11. Seizure disorder -Levetiracetam 12. Chronic urinary retention with chronic suprapubic catheter in place 13. Obesity with BMI of 33.8 complicates care She has co-existing DM, HTN, DLP and MATT/OHS DVT PROPHYLAXIS: continue home eliquis DISPOSITION: home after more than 2 midnight's stay. PT/OT recs for safe discharge planning VS,Lola, I+O VS, Lola, I+O Laboratory Tests 03/30/20 05:38 Vital Signs Date Time Temp Pulse Resp B/P (MAP) Pulse Ox O2 Delivery O2 Flow Rate FiO2 03/30/20 14:00 98.0 69 18 104/51 (68) 99 Nasal Cannula 2.0 I&O- Last 24 Hours up to 6 AM 03/30/20 06:00 Intake Total 2280 ml Output Total 3950 ml Balance -1670 ml HARSHA ESCOBAR MD Mar 30, 2020 16:07
[2020-03-30 22:00] VITALS: BP 105/52
[2020-03-30] MEDS: ATORVASTATIN 10 MG TAB PO SCH (22:38)
[2020-03-30] MEDS: BETAMETHASONE VAL 0.1% OINT 15 GM TOP SCH (22:39)
[2020-03-30] MEDS ORDERED: LEVEMIR (INSULIN DETEMIR) 1 UNITS/0.01ML SC ONE (23:45)
[2020-03-31 03:14] VITALS: O2SAT 100
[2020-03-31] MEDS: ACETAMINOPHEN TAB 650MG DOSE (2X325MG) PO PRN ×4 (03:26→22:39)
[2020-03-31] MEDS: SUCRALFATE 1 GM TAB PO SCH ×2 (05:33→17:27)
[2020-03-31 06:00] VITALS: BP 108/52
[2020-03-31] MEDS: FLUTICASONE HFA 110 MCG 12 GM INHALER (FLOVENT) INH SCH ×2 (07:37→20:07)
[2020-03-31] MEDS: MIRALAX *UNIT DOSE* 17GM PACKET PO SCH ×2 (08:26→22:35)
[2020-03-31] MEDS: LACTULOSE 20 GM/30 ML SYRUP UD PO SCH ×2 (08:26→22:35)
[2020-03-31] MEDS: allopurinoL 300 MG TAB PO SCH (08:28)
[2020-03-31] MEDS: TORSEMIDE 100 MG TAB PO SCH (08:28)
[2020-03-31] MEDS: OMEPRAZOLE 20 MG CAP PO SCH ×2 (08:28→22:36)
[2020-03-31] MEDS: DOCUSATE SODIUM 100MG CAPSULE PO SCH ×2 (08:29→22:36)
[2020-03-31] MEDS: DULoxetine 30 MG CAP (CYMBALTA) PO SCH ×2 (08:29→22:36)
[2020-03-31] MEDS: APIXABAN 5 MG TAB (ELIQUIS) PO SCH ×2 (08:29→22:38)
[2020-03-31] MEDS: CALCITRIOL 0.25 MCG CAP (S0169) PO SCH (08:29)
[2020-03-31] MEDS: PREGABALIN 75 MG CAP(LYRICA) PO SCH ×3 (08:29→22:35)
[2020-03-31] MEDS: NORTRIPTYLINE 10 MG CAP PO SCH ×2 (08:30→22:38)
[2020-03-31] MEDS: levETIRAcetam **XR** 500 MG TABLET PO SCH ×2 (08:30→22:38)
[2020-03-31] MEDS: COLCHICINE 0.6 MG TABLET PO SCH (08:32)
[2020-03-31] MEDS: SPIRONOLACTONE 25 MG TAB PO SCH ×2 (08:32→22:35)
[2020-03-31] MEDS: atenoloL 25 MG TAB PO SCH ×2 (08:33→22:38)
[2020-03-31] MEDS: SODIUM CHLORIDE 0.9% INJ 10 ML SYR IV SCH (08:34)
[2020-03-31] MEDS: LEVEMIR (INSULIN DETEMIR) 1 UNITS/0.01ML SC SCH ×2 (08:35→22:34)
[2020-03-31] MEDS: LACTIC ACID 12% LOTION 225 GM BTL TOP SCH ×2 (08:35→22:41)
[2020-03-31] MEDS: HumaLOG INSULIN (NovoLOG) PER UNIT SC SCH ×4 (08:36→22:35)
[2020-03-31 09:45] LABS: HEMATOCRIT 31.9 % (36.0-47.0); MEAN CORPUSCULAR HEMOGLOBIN 23.7 pg (27.0-33.0); MEAN CORPUSCULAR HGB CONC 28.2 g/dl (32.0-36.5); MEAN CORPUSCULAR VOLUME 84.2 fl (80.0-96.0); PLATELET COUNT, AUTOMATED 192 10^3/uL (150-450); RED BLOOD COUNT 3.79 10^6/uL (4.00-5.40); WHITE BLOOD COUNT 7.8 10^3/uL (4.0-10.0)
[2020-03-31 10:29] LABS: CALCIUM LEVEL 9.6 MG/DL (8.8-10.2); CREATININE FOR GFR 2.01 MG/DL (0.55-1.30); GLOMERULAR FILTRATION RATE 25.7 (>39); POTASSIUM SERUM 4.1 MEQ/L (3.5-5.1)
[2020-03-31 12:07] VITALS: O2SAT 100
--- NOTE | 2020-03-31 12:11 | IPNPDOC ---
Text Note Date of Service The patient was seen on 03/31/20. NOTE SUBJECTIVE: -No acute events PHYSICAL EXAMINATION: Vitals: HDS, afebrile, see below for details General: NAD, sitting in chair HEENT: NCAT, EOMI, MMM Pulm: breathing comfortably on room air, diminished without crackles or wheezing Cardiac: RRR Abd: obese, soft, normoactive sounds, NTND Ext: WWP, no significant edema Neuro: AOx3, 4/5 upper extremities, 3/5 lower extremities, CN 3-12 intact, speech clear Psych: AOx3 LABORATORY DATA: Reviewed. Stable. IMAGING: CT head "IMPRESSION: There has been little change from 05/27/2018 with minimal atrophy and small focus of old infarct in the posterior right parietal lobe. No acute interval intracranial process is identified." Chest xray "IMPRESSION: Essentially stable chest since 03/05/2020." MICROBIOLOGY: Please see below. 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 PLAN: Encephalopathy: much improved, resolving. Likely due to psychotropic meds as she is on multiple pain and psych meds that are centrally acting -The CT of her head and TSH were unrevealing -UDS was positive for barbituates -ammonia and VBG were unrevealing -continue to hold oxycodone & scopolamine patch -with resolution of lethargy and tremor/jerking, no further brain imaging at this time as this resolved with holding meds 2. Debility: chronic, slowly getting worse with significant weakness, having difficulty getting into wheelchair and driving it at home -pending PT/OT recs on transfer plan, reports having a lift? at home. Currently requiring porfirio stedy 2. Mild Hypercalcemia: resolved -s/p IVF -PTH and Phosphorus 3. COPD / Chronic O2 dependent respiratory failure (2L) ABG c/w chronic Metabolic Alkalosis 2/2 chronic respiratory failure -continue home Fluticasone & Albuterol inhalers 4. MATT/OHS -continue home BIPAP 5. Chronic Hypertension / Chronic HFpEF -continue Atenolol, Spironolactone, Torsemide 6. IDDM -FSBS, carbohydrate consistent diet / SSI w hypoglycemia protocol / she is on Tresiba 66 units BID will continue Levemir 15 units BID for now until she is at baseline PO 7. CKD 3 -daily BMP -continue home calcitriol 8. History of R parietal CVA -continue home Atorvastatin 9. Longstanding persistent afib -Apixaban, Atenolol 10. Gout -Allopurinol 11. Seizure disorder -Levetiracetam 12. Chronic urinary retention with chronic suprapubic catheter in place 13. Obesity with BMI of 33.8 complicates care She has co-existing DM, HTN, DLP and MATT/OHS DVT PROPHYLAXIS: continue home eliquis DISPOSITION: home after more than 2 midnight's stay. PT/OT recs for safe discharge planning, otherwise medically optimized. VS,Fishbone, I+O VS, Fishbone, I+O Vital Signs Date Time Temp Pulse Resp B/P (MAP) Pulse Ox O2 Delivery O2 Flow Rate FiO2 03/31/20 06:00 98.3 61 20 108/52 (70) 100 Nasal Cannula 2.0 I&O- Last 24 Hours up to 6 AM 03/31/20 06:00 Intake Total 2019 ml Output Total 5300 ml Balance -3280 ml HARSHA ESCOBAR MD Mar 31, 2020 08:40
[2020-03-31 14:00] VITALS: BP 116/53
[2020-03-31 22:00] VITALS: BP 125/58
[2020-03-31] MEDS: ATORVASTATIN 10 MG TAB PO SCH (22:37)
[2020-03-31] MEDS: BETAMETHASONE VAL 0.1% OINT 15 GM TOP SCH (22:41)
[2020-04-01 04:58] VITALS: O2SAT 100
[2020-04-01] MEDS: SUCRALFATE 1 GM TAB PO SCH ×2 (05:44→17:32)
[2020-04-01 06:00] VITALS: BP 121/59
[2020-04-01] MEDS: FLUTICASONE HFA 110 MCG 12 GM INHALER (FLOVENT) INH SCH ×2 (07:38→19:22)
[2020-04-01 09:00] VITALS: O2SAT 98
[2020-04-01] MEDS: LACTULOSE 20 GM/30 ML SYRUP UD PO SCH ×2 (09:00→21:53)
[2020-04-01] MEDS: DULoxetine 30 MG CAP (CYMBALTA) PO SCH ×2 (09:01→21:57)
[2020-04-01] MEDS: CALCITRIOL 0.25 MCG CAP (S0169) PO SCH (09:01)
[2020-04-01] MEDS: APIXABAN 5 MG TAB (ELIQUIS) PO SCH ×2 (09:01→21:56)
[2020-04-01] MEDS: OMEPRAZOLE 20 MG CAP PO SCH ×2 (09:01→21:59)
[2020-04-01] MEDS: NORTRIPTYLINE 10 MG CAP PO SCH ×2 (09:01→21:58)
[2020-04-01] MEDS: levETIRAcetam **XR** 500 MG TABLET PO SCH ×2 (09:01→21:58)
[2020-04-01] MEDS: DOCUSATE SODIUM 100MG CAPSULE PO SCH ×2 (09:01→21:56)
[2020-04-01] MEDS: PREGABALIN 75 MG CAP(LYRICA) PO SCH ×3 (09:01→21:55)
[2020-04-01] MEDS: COLCHICINE 0.6 MG TABLET PO SCH (09:01)
[2020-04-01] MEDS: allopurinoL 300 MG TAB PO SCH (09:02)
[2020-04-01] MEDS: ACETAMINOPHEN TAB 650MG DOSE (2X325MG) PO PRN ×2 (09:03→17:34)
[2020-04-01] MEDS: SODIUM CHLORIDE 0.9% INJ 10 ML SYR IV SCH (09:03)
[2020-04-01] MEDS: LACTIC ACID 12% LOTION 225 GM BTL TOP SCH ×2 (09:03→22:01)
[2020-04-01] MEDS: NS 1,000 ML IV SCH ×2 (09:04→21:53)
[2020-04-01] MEDS: LEVEMIR (INSULIN DETEMIR) 1 UNITS/0.01ML SC SCH ×2 (09:04→21:55)
[2020-04-01] MEDS: HumaLOG INSULIN (NovoLOG) PER UNIT SC SCH ×4 (09:05→21:54)
[2020-04-01] MEDS: MIRALAX *UNIT DOSE* 17GM PACKET PO SCH ×2 (09:06→21:53)
[2020-04-01] MEDS: atenoloL 25 MG TAB PO SCH ×2 (09:07→22:00)
[2020-04-01 14:00] VITALS: BP 119/58
--- NOTE | 2020-04-01 20:29 | IPNPDOC ---
Subjective Date Seen The patient was seen on 04/01/20. Subjective Chief Complaint/HPI Mrs. Stern is a 74 year old female with chronic pain here with toxic encephalopathy secondary to pain medication. Today, she feel better. Denies fever, chest pain, or abdominal pain. Otherwise she was complaining of chronic hip pain this morning. She is wheelchair bound and transfers at baseline between bed and wheelchair. Spoke with grand-daughter (Lupe [phone]) today about possible discharge tomorrow. She was wondering if patient would go home with physical therapy services. Otherwise, she is trying to get more home nursing time for patient. Otherwise, she requests that we send a referral to [facility] where she had her morphine pump placed to see what the status of the pump is. Objective Physical Examination General Exam: Positive: Alert, Cooperative Eye Exam: Positive: EOMI ENT Exam: Positive: Atraumatic Neck Exam: Positive: Supple Chest Exam: Positive: Clear to auscultation Heart Exam: Positive: Rate Normal, Regular Rhythm Abdomen Exam: Positive: Normal bowel sounds, Soft; Negative: Tenderness Extremity Exam: Negative: Edema Neuro Exam: Positive: Cranial Nerves 3-12 NL Psych Exam: Positive: Mental status NL, Mood NL Assessment /Plan Assessment Mrs. Stern is a 74 year old female with chronic pain here with toxic encephalopathy secondary to pain medication. Pain medication has been held and she has been doing better off of the medication. Still has pain, but she will need to follow up with paperhanger and painter. Otherwise, she has cleared PT today. Today, she did have some ISSA. Will hold diuretics and give fluids. If renal function improves. Possible discharge home tomorrow Plan/VTE VTE Prophylaxis Ordered?: Yes Plan 1. Toxic encephalopathy 2/2 pain medication -Oxycodone held and Scopolamine patch held -Mentation better -Will need to follow up with pain management outpatient for management of pain -Family requests [facility] as they placed her morphine pump 2. Debility -Wheelchair bound -Cleared physical therapy today 3. COPD -Chronically on 2L NC -Continue Fluticasone and albuterol PRN 4. MATT/OHS -Continue Bipap 5. Hypertension -Continue atenolol 6. CHF -Diastolic -Stable -Holding Spironolactone and Torsemide due to ISSA 7. IDDM -Continue insulin regimen -Carbohydrate consistent diet 8. ISSA on CKD stage 3 -Monitor renal function -Hold diuretics today 9. History of right parietal CVA -Continue Atorvastatin 10. Atrial fibrillation -Apixaban -Atenolol 11. Gout -Allopurinol 12. Seizure disorder -Levetiracetam 13. Chronic urinary retention with suprapubic catheter in place -Follow up with urology outpatient on a regular basis 14. Obesity -BMI of 33.8 -Follow up with PCP to discuss weight loss strategies 15. DVT ppx -Eliquis Disposition: Possible discharge home tomorrow if renal function improves VS, I&O, 24H, Fishbone Vital Signs/I&O Vital Signs Date Time Temp Pulse Resp B/P (MAP) Pulse Ox O2 Delivery O2 Flow Rate FiO2 04/01/20 14:00 98.3 66 17 119/58 (78) 100 Nasal Cannula 2.0 I&O- Last 24 Hours up to 6 AM 04/01/20 06:00 Intake Total 2720 ml Output Total 3000 ml Balance -280 ml Laboratory Data 24H LABS Laboratory Tests 2 03/31/20 20:21: Bedside Glucose (Misc Panel) 463H 04/01/20 05:44: Bedside Glucose (Misc Panel) 372H 04/01/20 11:34: Bedside Glucose (Misc Panel) 431H 04/01/20 16:45: Bedside Glucose (Misc Panel) 436H KUNAL VINES DO Apr 01, 2020 20:29
[2020-04-01 21:00] VITALS: O2SAT 96
[2020-04-01] MEDS: ATORVASTATIN 10 MG TAB PO SCH (21:59)
[2020-04-01 22:00] VITALS: BP 118/63
[2020-04-01] MEDS: BETAMETHASONE VAL 0.1% OINT 15 GM TOP SCH (22:01)
[2020-04-02] MEDS: SUCRALFATE 1 GM TAB PO SCH (05:24)
[2020-04-02 05:42] LABS: HEMATOCRIT 28.6 % (36.0-47.0); HEMOGLOBIN 7.9 g/dl (12.0-15.5); MEAN CORPUSCULAR HEMOGLOBIN 23.4 pg (27.0-33.0); MEAN CORPUSCULAR HGB CONC 27.6 g/dl (32.0-36.5); MEAN CORPUSCULAR VOLUME 84.9 fl (80.0-96.0); PLATELET COUNT, AUTOMATED 161 10^3/uL (150-450); RED BLOOD COUNT 3.37 10^6/uL (4.00-5.40)
[2020-04-02 06:00] VITALS: BP 119/61
[2020-04-02 06:45] LABS: CALCIUM LEVEL 9.1 MG/DL (8.8-10.2); CREATININE FOR GFR 1.67 MG/DL (0.55-1.30); GLOMERULAR FILTRATION RATE 31.8 (>39); POTASSIUM SERUM 4.7 MEQ/L (3.5-5.1)
[2020-04-02] MEDS: FLUTICASONE HFA 110 MCG 12 GM INHALER (FLOVENT) INH SCH (07:38)
[2020-04-02] MEDS: LEVEMIR (INSULIN DETEMIR) 1 UNITS/0.01ML SC SCH (07:52)
[2020-04-02] MEDS: CALCITRIOL 0.25 MCG CAP (S0169) PO SCH (07:53)
[2020-04-02] MEDS: DULoxetine 30 MG CAP (CYMBALTA) PO SCH (07:53)
[2020-04-02] MEDS: HumaLOG INSULIN (NovoLOG) PER UNIT SC SCH ×2 (07:53→13:22)
[2020-04-02] MEDS: LACTULOSE 20 GM/30 ML SYRUP UD PO SCH (07:53)
[2020-04-02] MEDS: OMEPRAZOLE 20 MG CAP PO SCH (07:54)
[2020-04-02] MEDS: COLCHICINE 0.6 MG TABLET PO SCH (07:54)
[2020-04-02] MEDS: allopurinoL 300 MG TAB PO SCH (07:54)
[2020-04-02] MEDS: DOCUSATE SODIUM 100MG CAPSULE PO SCH (07:54)
[2020-04-02] MEDS: PREGABALIN 75 MG CAP(LYRICA) PO SCH (07:54)
[2020-04-02] MEDS: levETIRAcetam **XR** 500 MG TABLET PO SCH (07:54)
[2020-04-02] MEDS: MIRALAX *UNIT DOSE* 17GM PACKET PO SCH (07:54)
[2020-04-02] MEDS: APIXABAN 5 MG TAB (ELIQUIS) PO SCH (07:54)
[2020-04-02] MEDS: NORTRIPTYLINE 10 MG CAP PO SCH (07:55)
[2020-04-02] MEDS: ACETAMINOPHEN TAB 650MG DOSE (2X325MG) PO PRN (07:56)
[2020-04-02] MEDS: NS 1,000 ML IV SCH (08:45)
[2020-04-02] MEDS: atenoloL 25 MG TAB PO SCH (09:00)
[2020-04-02] MEDS: SODIUM CHLORIDE 0.9% INJ 10 ML SYR IV SCH (09:00)
[2020-04-02] MEDS ORDERED: ACET1TAB55 PO (09:37)
[2020-04-02] MEDS ORDERED: TRES1INJ2 SC (09:37)
[2020-04-02] MEDS ORDERED: ACET650T15 PO (09:49)
[2020-04-02] MEDS: TORSEMIDE 100 MG TAB PO SCH (10:48)
[2020-04-02] MEDS: SPIRONOLACTONE 25 MG TAB PO SCH (10:48)
[2020-04-02] MEDS: LACTIC ACID 12% LOTION 225 GM BTL TOP SCH (10:49)
[2020-04-02 11:43] LABS: BASO # 0.1 10^3/uL (0.0-0.2); BASO % 0.7 % (0.0-1.0); EOS # 0.2 10^3/uL (0.0-0.5); EOS % 2.2 % (0.0-3.0); HEMATOCRIT 28.6 % (36.0-47.0); HEMOGLOBIN 8.2 g/dl (12.0-15.5); LYMPH # 1.4 10^3/uL (1.5-5.0); LYMPH % 20.5 % (24.0-44.0); MEAN CORPUSCULAR HEMOGLOBIN 24.6 pg (27.0-33.0); MEAN CORPUSCULAR HGB CONC 28.7 g/dl (32.0-36.5); MEAN CORPUSCULAR VOLUME 85.9 fl (80.0-96.0); MONO # 0.9 10^3/uL (0.0-0.8); MONO % 13.4 % (0.0-5.0); NEUTROPHILS # 4.2 10^3/uL (1.5-8.5); NEUTROPHILS % 61.5 % (36.0-66.0); PLATELET COUNT, AUTOMATED 173 10^3/uL (150-450); RED BLOOD COUNT 3.33 10^6/uL (4.00-5.40); WHITE BLOOD COUNT 6.9 10^3/uL (4.0-10.0)
[2020-04-02 12:06] LABS: PERCENT SATURATION 6.7 % (13.2-45.0)
--- NOTE | 2020-04-02 22:43 | DS.PDOC ---
Discharge Summary General Date of Admission Mar 26, 2020 at 01:52 Date of Discharge Apr 02, 2020 Attending Physician: KUNAL VINES DO Discharge Summary PROCEDURES PERFORMED DURING STAY: None ADMITTING DIAGNOSES: 1. Toxic encephalopathy 2. COPD 3. Chronic hypoxic respiratory failure requiring 2LNC 4. MATT 5. Hypertension 6. Chronic diastolic CHF 7. Insulin dependent diabetes mellitus 8. CKD stage 3 9. Persistent atrial fibrillation 10. Gout 11. Seizure disorder 12. Chronic urinary retention s/p chronic suprapubic catheter 13. Obesity DISCHARGE DIAGNOSES: 1. Toxic encephalopathy 2. COPD 3. Chronic hypoxic respiratory failure requiring 2LNC 4. MATT 5. Hypertension 6. Chronic diastolic CHF 7. Insulin dependent diabetes mellitus 8. CKD stage 3 9. Persistent atrial fibrillation 10. Gout 11. Seizure disorder 12. Chronic urinary retention s/p chronic suprapubic catheter 13. Obesity COMPLICATIONS/CHIEF COMPLAINT: Metabolic Encephalopathy. HISTORY OF PRESENT ILLNESS: Mrs. Stern is a 74 year old female with chronic pain, CKD stage III, COPD chronically on 2L NC and MATT who was brought to the ED for lethargy and poor appetite noticed by . When the admitted physician saw patient in the ED, she was still lethargic. Patient was able to admit feeling tired, dropping objects, and loosing her balance. Of noted, patient is wheel chair bound. Her AMS was thought to be secondary to her pain medication HOSPITAL COURSE: During her hospitalization, her oxycodone and scopolamine patch was held. She had improvements in lethargy and tremor/jerking the following day, but she was still weak. Physical therapy wanted to work with her for a few days to improve her strength to baseline. In the meantime, she did develop an episode of ISSA where her creatinine increased from 1.78 to 2.01. Nephrotoxins were held and she was given IVF. On 04/01/2020, she was cleared by physical therapy and to continue physical therapy at home. Renal function improved to 1.67 on 04/02/2020. Today (04/02/2020), she was feeling well and felt ready for home. She was subsequently discharged with instruction to stop oxycodone/acetaminophen and scopolamine patch and to start just acetaminophen for pain which was what she was receiving in the hospital. She has not need opioids during her hospi talization. Otherwise, she was on a lower dose of basal insulin during her hospitalization, but she was on a carbohydrate consistent diet. I discharged her on a lower dose of Tresiba (40units BID). She may need to return to her regular dose (66units BID), if she does not follow a carbohydrate consistent diet. DISCHARGE MEDICATIONS: Please see below. ALLERGIES: Please see below. PHYSICAL EXAMINATION ON DISCHARGE: VITAL SIGNS: Please see below. GENERAL: Comfortable and awake, no apparent distress HEENT: Head normocephalic, atraumatic, EOMI, sclera clear NECK: Supple CARDIOVASCULAR EXAMINATION: Regular rate and rhythm RESPIRATORY EXAMINATION: Lungs clear to auscultation bilaterally ABDOMINAL EXAMINATION: Soft, normal bowel sounds EXTREMITIES: Bilateral pitting edema SKIN: Warm and dry NEUROLOGICAL EXAMINATION: CN 3-12 grossly intact PSYCHIATRIC EXAMINATION: Normal mood and affect LABORATORY DATA: Please see below. IMAGING: (Radiologist impression) CXR Essentially stable chest since 03/05/2020. CT head There has been little change from 05/27/2018 with minimal atrophy and small focus of old infarct in the posterior right parietal lobe. No acute interval intracranial process is identified. PROGNOSIS: Good ACTIVITY: As tolerated. DIET: Carbohydrate consistent diet DISCHARGE PLAN: Home with home services DISPOSITION: Home, Self-Care. DISCHARGE INSTRUCTIONS: 1. Follow up with PCP within a week 2. Keep urology appointment with Dr. Rivera 3. Referral to nephrology for CKD 4. Referral to [facility] to re-examine the pain pump 5. Do not take oxycodone/acetaminophen or scopolamine 6. Monitor blood glucose levels. You may need to increase Tresiba to 66 units BID DISCHARGE CONDITION: Stable. Total time spent on discharge planning, discharge summary, and medication reconciliation: 65 minutes Vital Signs/I&Os Vital Signs Date Time Temp Pulse Resp B/P (MAP) Pulse Ox O2 Delivery O2 Flow Rate FiO2 04/02/20 09:00 2.0 04/02/20 07:39 Nasal Cannula 04/02/20 06:00 97.7 67 21 119/61 (80) 100 I&O- Last 24 Hours up to 6 AM 04/02/20 06:00 Intake Total 4380 ml Output Total 3200 ml Balance 1180 ml Laboratory Data Labs 24H Laboratory Tests 2 04/02/20 05:26: Nucleated Red Blood Cells % (auto) 0.0, Anion Gap 10, Glomerular Filtration Rate 31.8L, Calcium Level 9.1 04/02/20 11:22: Nucleated Red Blood Cells % (auto) 0.3H, Immature Granulocyte % (Auto) 1.7, Neutrophils (%) (Auto) 61.5, Lymphocytes (%) (Auto) 20.5L, Monocytes (%) (Auto) 13.4H, Eosinophils (%) (Auto) 2.2, Basophils (%) (Auto) 0.7, Neutrophils # (Auto) 4.2, Lymphocytes # (Auto) 1.4L, Monocytes # (Auto) 0.9H, Eosinophils # (Auto) 0.2, Basophils # (Auto) 0.1, Iron Level 28L, Total Iron Binding Capacity 416, Transferrin % Saturation 6.7L 04/02/20 11:59: Bedside Glucose (Misc Panel) 380H CBC/BMP Laboratory Tests 04/02/20 05:26 04/02/20 11:22 FSBS Laboratory Tests Test 04/02/20 11:59 Range/Units Bedside Glucose (Misc Panel) 380 83-110 MG/DL Discharge Medications Scheduled Allopurinol (Zyloprim) 300 Mg Tab, 300 MG PO DAILY, (Reported) Ammonium Lactate (Ammonium Lactate) 12 % Cre, 1 DOSE TOP BID, (Reported) APPLY TO LEGS/FEET Apixaban (Eliquis) 5 Mg Tablet, 5 MG PO BID, (Reported) Atenolol (Atenolol) 25 Mg Tablet, 25 MG PO BID, (Reported) Atorvastatin Calcium (Atorvastatin Calcium) 10 Mg Tab, 10 MG PO QHS, (Reported) Betamethasone Mala (Betamethasone Valerate) 45 Gm Oint, 1 DOSE TOP QHS, (Rep orted) USES ON LEGS FOR HOTSPOTS Calcitriol (Rocaltrol) 0.5 Mcg Capsule, 0.5 MCG PO DAILY, (Reported) Colchicine (Colchicine) 0.6 Mg Tab, 0.6 MG PO DAILY, (Reported) Cranberry Fruit Extract (Cranberry) 500 Mg Capsule, 500 MG PO TID, (Reported) Cyclosporine (Cequa) 0.09% Droperette, 1 DROP OU BID, (Reported) Docusate Sodium (Docusate Sodium) 100 Mg Cap, 100 MG PO BID, (Reported) Duloxetine Hcl (Cymbalta) 60 Mg Capsule.dr, 60 MG PO BID, (Reported) Ergocalciferol (Vitamin D2) (Vitamin D2) 50,000 Units Cap, 50,000 UNITS PO QMONTH, (Reported) 1ST OF EVERY MONTH Fluticasone Furoate (Arnuity Ellipta) 100 Mcg Blst.w.dev, 1 PUFF INH QHS, (Reported) Insulin Degludec (Tresiba Flextouch U-100) 100 Unit/Ml Inj, 40 UNITS SC BID Insulin Lispro (Humalog Kwikpen U-200) 200 Unit/1 Ml Insuln.pen, 1 DOSE SC ACHS, (Reported) PATIENT SPECIFIC SLIDING SCALE Lactulose (Lactulose) 10 Gm/15 Ml Solution, 30 ML PO BID, (Reported) Levetiracetam (Levetiracetam ER) 500 Mg Lindsay, 500 MG PO BID, (Reported) Nortriptyline HCl (Nortriptyline HCl) 10 Mg Capsule, 10 MG PO BID, (Reported) Omeprazole (Omeprazole) 20 Mg Cap, 20 MG PO BID, (Reported) Polyethylene Glycol 3350 (Miralax) 119 Gm Powder, 17 GM PO BID, (Reported) Pregabalin (Lyrica) 150 Mg Capsule, 150 MG PO TID, (Reported) Spironolactone (Spironolactone) 25 Mg Tablet, 25 MG PO BID, (Reported) Sucralfate (Sucralfate) 1 Gm Tab, 1 GM PO BID, (Reported) Torsemide (Torsemide) 100 Mg Tablet, 100 MG PO DAILY, (Reported) Scheduled PRN Acetaminophen (Acetaminophen ER) 650 Mg Tablet.er, 650 MG PO QID PRN for PAIN OR FEVER Albuterol Sulf (Albuterol Sulfate) 2.5 Mg/3 Ml Nebu, 2.5 MG INH QID PRN for SH ORTNESS OF BREATH, (Reported) Albuterol Sulfate (Ventolin Hfa) 18 Gm Hfa.aer.ad, 2 PUFFS INH QID PRN for SHORTNESS OF BREATH, (Reported) Nystatin (Nystatin) 100,000 Unit/Gm Cre, 1 DOSE TOP BID PRN for RASH, (Reported) UNDER BREASTS AND GROIN AREA Ondansetron HCl (Ondansetron HCl) 4 Mg Tab, 4 MG PO QID PRN for NAUSEA OR VOMITING, (Reported) Miscellaneous Medications [Patient Comment] , (Reported) MED REC COMPLETED VIA EXTERNAL MED HISTORY, PREVIOUS DISCHARGE PAPERWORK (03/08/2020), AND PREVIOUS CLINIC VISIT (03/19/2020) Allergies Coded Allergies: Cephalosporins (Verified Allergy, Intermediate, hives, 07/09/19) Penicillins (Verified Allergy, Intermediate, hives, 07/09/19) Sulfa (Sulfonamide Antibiotics) (Verified Allergy, Intermediate, hives, 07/09/19) chlorpromazine (Verified Allergy, Intermediate, hiives, 07/09/19) loratadine (Verified Allergy, Intermediate, hives, 07/09/19) pentazocine (Verified Allergy, Intermediate, hives, 07/09/19) TAPE (Verified Allergy, Unknown, band-aids, 07/09/19) methadone (Verified Allergy, Unknown, 07/09/19) HAS HAD DILAUDID AND DEMEROL IN THE PAST KUNAL VINES DO Apr 02, 2020 22:43
== END 2020-04-02 15:14 | disposition home or self-care (01) | DRG 92 ==
LOC: M ED 21:22 → M ED INP 03-26 01:52 → M MSPAV 03-26 17:41
PROVIDERS: ADMIT Internal Medicine; ATTEND Internal Medicine
DX: G92 Toxic encephalopathy (principal); J96.10 Chronic respiratory failure, unspecified whether with hypoxia or hypercapnia; I13.0 Hypertensive heart and chronic kidney disease with heart failure and stage 1 through stage 4 chronic kidney disease, or unspecified chronic kidney disease; I50.32 Chronic diastolic (congestive) heart failure; I48.19 Other persistent atrial fibrillation; E87.3 Alkalosis; N17.9 Acute kidney failure, unspecified; N18.30 Chronic kidney disease, stage 3 unspecified; J44.9 Chronic obstructive pulmonary disease, unspecified; E11.22 Type 2 diabetes mellitus with diabetic chronic kidney disease; G47.33 Obstructive sleep apnea (adult) (pediatric); E66.01 Morbid (severe) obesity due to excess calories; Z79.4 Long term (current) use of insulin; R31.9 Hematuria, unspecified; M10.9 Gout, unspecified; G40.909 Epilepsy, unspecified, not intractable, without status epilepticus; Z79.899 Other long term (current) drug therapy; Z88.0 Allergy status to penicillin; Z88.2 Allergy status to sulfonamides; Z88.8 Allergy status to other drugs, medicaments and biological substances; Z86.718 Personal history of other venous thrombosis and embolism; Z99.81 Dependence on supplemental oxygen; D50.9 Iron deficiency anemia, unspecified; I27.20 Pulmonary hypertension, unspecified; Z86.73 Personal history of transient ischemic attack (TIA), and cerebral infarction without residual deficits; K21.9 Gastro-esophageal reflux disease without esophagitis; E83.52 Hypercalcemia; Z68.33 Body mass index [BMI] 33.0-33.9, adult; T40.2X5A Adverse effect of other opioids, initial encounter

== ENCOUNTER 2020-04-09 17:32 | Inpatient (IN) | payer MEDICARE, MEDICAID ==
[~2020-04-09] VITALS: Ht 170.2 cm; Wt 109.2 kg
[~2020-04-09 17:32] MED LIST changes: +SODIUM CHLORIDE 0.9% INJ 10 ML SYR IV SCH; -TRES100I SC
[2020-04-09] MEDS ORDERED: REST0.05 OU (18:01)
[2020-04-09] MEDS ORDERED: TRES100I SC (18:01)
[2020-04-09 20:06] LABS: BASO # 0.1 10^3/uL (0.0-0.2); BASO % 0.9 % (0.0-1.0); EOS # 0.1 10^3/uL (0.0-0.5); EOS % 1.6 % (0.0-3.0); HEMATOCRIT 25.8 % (36.0-47.0); LYMPH # 1.5 10^3/uL (1.5-5.0); LYMPH % 25.7 % (24.0-44.0); MEAN CORPUSCULAR HEMOGLOBIN 22.7 pg (27.0-33.0); MEAN CORPUSCULAR HGB CONC 26.4 g/dl (32.0-36.5); MEAN CORPUSCULAR VOLUME 86.3 fl (80.0-96.0); MONO # 0.7 10^3/uL (0.0-0.8); MONO % 12.7 % (0.0-5.0); NEUTROPHILS # 3.3 10^3/uL (1.5-8.5); NEUTROPHILS % 57.9 % (36.0-66.0); PLATELET COUNT, AUTOMATED 155 10^3/uL (150-450); RED BLOOD COUNT 2.99 10^6/uL (4.00-5.40); WHITE BLOOD COUNT 5.8 10^3/uL (4.0-10.0)
[2020-04-09 20:48] LABS: BLOOD UREA NITROGEN 31 MG/DL (7-18); CALCIUM LEVEL 8.9 MG/DL (8.8-10.2); CARBON DIOXIDE LEVEL 35 MEQ/L (21-32); CHLORIDE LEVEL 100 MEQ/L (98-107); CK-MB VALUE MASS 1.1 NG/ML (<3.6); CPK CREATINE PHOSPHOKINASE 33 U/L (26-192); CREATININE FOR GFR 1.93 MG/DL (0.55-1.30); GLOMERULAR FILTRATION RATE 26.9 (>39); GLUCOSE, FASTING 422 MG/DL (70-100); MB/CK RELATIVE INDEX 3.33 (< OR =4); SODIUM LEVEL 138 MEQ/L (136-145); TROPONIN I < 0.02 NG/ML (< 0.10)
[2020-04-09 20:50] LABS: HEMOGLOBIN 6.8 g/dl (12.0-15.5)
--- NOTE | 2020-04-09 20:52 | REPVR ---
PROCEDURE INFORMATION: Exam: XR Chest, 1 View Exam date and time: 04/09/2020 8:16 PM Age: 74 years old Clinical indication: Other: Weakness TECHNIQUE: Imaging protocol: XR of the chest Views: 1 view. COMPARISON: CR Chest, 1 view 03/25/2020 11:17 PM FINDINGS: Tubes, catheters and devices: Multiple surgical clips project over the mediastinum left upper quadrant as previously demonstrated. Lungs: Redemonstration of haziness to the left lung base. Finding may be chronic such is chronic atelectasis although a infiltrate is not excluded. Pleural space: Unremarkable. No pleural effusion. No pneumothorax. Heart/Mediastinum: MediPort catheter tip located in the upper right atrium near the cavoatrial junction. Bones/joints: Osteoporosis. IMPRESSION: Redemonstration of haziness to the left lung base. Finding may be chronic such is chronic atelectasis although a infiltrate is not excluded. Electronically signed by: Patricio Licona On 04/09/2020 20:53:11 PM
[2020-04-09] MEDS ORDERED: HumuLIN R (REGULAR) INSULIN (NovoLIN R) **100U/ML** PER UNIT IV ONE (21:45)
[2020-04-09] MEDS ORDERED: NS 1,000 ML IV SCH (21:45)
[2020-04-09] MEDS ORDERED: ACET650T61 PO (21:57)
[2020-04-10] VITALS (12 sets, daily range): BP systolic 106–140; BP diastolic 46–89
[2020-04-10] MEDS ORDERED: ALBUTEROL SULFATE 2.5 MG/0.5 ML INH NEB SOLN INH PRN (01:00)
[2020-04-10] MEDS ORDERED: MOM 30ML SUSPENSION UDC PO PRN (01:00)
[2020-04-10] MEDS ORDERED: MAALOX 30 ML SUSP *UDC PO PRN (01:00)
[2020-04-10] MEDS ORDERED: ONDANSETRON 4 MG TAB PO PRN (01:00)
[2020-04-10] MEDS ORDERED: ALBUTEROL 90 MCG/ACT 8GM HFA INHALER INH PRN (01:00)
[2020-04-10] MEDS ORDERED: GLUCAGON INJ 1MG VIAL SC PRN (01:15)
[2020-04-10] MEDS ORDERED: DEXTROSE 50% 50 ML SYRINGE IV PRN (01:15)
[2020-04-10] MEDS ORDERED: GLUCOSE 4GM CHEW TABLET PO PRN (01:15)
[2020-04-10] MEDS ORDERED: PANTOPRAZOLE 40MG VIAL (C9113 PER 1) IV ONE (01:45)
--- NOTE | 2020-04-10 01:47 | HPEPDOC ---
[facility] Medical History & Physical Date of Admission Apr 10, 2020 Date of Service: Apr 10, 2020 History and Physical CHIEF COMPLAINT: weakness HISTORY OF PRESENT ILLNESS: 74 yo F with a Hx of HTN, COPD, HFpEF, CKD3, CVA, DVTs (IVC filter), chronic afib on eliquis, sent to ER by card dealer Dr. Nation for worsening generalized weakness, thought to be due acute blood loss anemia. On arrival to ED, Hgb 6.8, with a positive hemoccult stool on CRIS, without gross rectal bleeding. Patient was transfused 2 units pRBC in ED. Pat ient denies chest pain, SOB, palpitations, fevers or n/v/d. EKG in ED showed possible ischemic changes, however patient has no chest pain or trop elevation. 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 REVIEW OF SYSTEMS: CONSTITUTIONAL: Denies fatigue, weakness HEENT: patient denies blurred vision, loss of vision, headache,. CARDIOVASCULAR: patient denies chest pain, palpitations. RESPIRATORY: patient denies shortness of breath, cough, hemoptysis. GASTROINTESTINAL: patient denies abdominal pain, n/v/d, blood in stool. GENITOURINARY: patient denies dysuria, discharge. SKIN: patient denies rashes. MUSCULOSKELETAL: patient denies joint pain, neck pain. NEUROLOGICAL: patient denies focal weakness, numbness, seizures. PSYCHIATRIC: patient denies SI/HI. ENDOCRINE: patient denies polyuria, heat intolerance, cold intolerance. HEMATOLOGIC/LYMPHATIC: patient denies easy bruising. HOME MEDICATIONS: Please see below. PHYSICAL EXAMINATION: VITAL SIGNS: please see below General: NAD, comfortable HEENT: PERRLA, EOMI, sclerae clear Neck: supple, normal ROM, no JVD Respiratory: lungs CTAB, no wheeze, no rales, no crackles CVS: RRR, normal S1, S2, no murmurs Abdo: soft, no masses, no hepatosplenomegaly, BS+, no rebound tenderness, left lower quadrant shows a pain relief device underneath the skin opted not to have it removed Extremities: no edema, pulses 2+ MSK: no joint deformities, normal ROM Neuro: no focal neuro deficits, moving all 4 extremities, CN2-12 intact. Strength 5/5 in all 4 extremities. No nystagmus. Psych: calm, cooperative, AAO x 3 LABORATORY DATA: See below. IMAGING: CXR (04/10/19) Redemonstration of haziness to the left lung base. Finding may be chronic such is chronic atelectasis although a infiltrate is not excluded. MICROBIOLOGY: Please see below. ASSESSMENT: 74 yr old w a hx of HTN, HFpEF, IDDM, CKD 3, CVA, DVTs, COPD w O2 dep, A fib, Gout, Seizures, sent to ED by Dr. Nation for symptomatic acute blood loss anemia, hgb 6.8 in the. Admitted to hospitalist service for management of acute blood loss anemia. . PLAN: #Acute blood loss anemia - send to ED from Dr. Nation clinic - Hgb 6.8 on arrival - Hemoccult positive in ER, dark stool in rectal vault - transfused 2 units pRBC, repeat CBC pending - pantoprazole 40 mg IV daily #L lung base opacity - seen on CXR - patient is afebrile, without cough, or fever - check procal - monitor clinically, hold abx at this time. - incentive spirometer, likely atelectasis. #Abnormal EKG - cycle trop - repeat EKG - asymptomatic #HTN - resume home meds - c/w lasix, torsemide as received 1L NS and blood transfusion #HFpEF - resume home meds - appears euvolemic on exam #DM2 - ISS, FSBS AC and HS, hypoglycemic precautions - takes tresibe 66 units BID at home - CLD diet, will reduce levemir to 15 units BID, and ISS until eating regular CC diet. #COPD - continue with inhalers #CKD 3 - avoid nephrotoxins - c/w calcitriol - Cr 1.98, near baseline, will continue diuretics as patient is receiving blood transfusion - hold if renal function worsens #Hx of R parietal CVA - statin #Chronic afib - AC with eliquis, hold in setting of GI bleed - rate control with atenolol #Gout - hold allopurinol for now, monitor Cr - c/w colchicine #seizure disorder - keppra #Chronic urinary retention - suprapubic cath in place #Obesity - BMI 34.5, complicating care Dispo: admission likely to span > 2 midnights. Vital Signs Vital Signs Date Time Temp Pulse Resp B/P (MAP) Pulse Ox O2 Delivery O2 Flow Rate FiO2 04/10/20 01:42 68 100 04/10/20 01:31 126/58 (80) 04/10/20 00:50 96.2 20 04/09/20 18:45 Nasal Cannula 2.0 Laboratory Data Labs 24H Laboratory Tests 2 04/09/20 20:00: Immature Granulocyte % (Auto) 1.2, Neutrophils (%) (Auto) 57.9, Lymphocytes (%) (Auto) 25.7, Monocytes (%) (Auto) 12.7H, Eosinophils (%) (Auto) 1.6, Basophils (%) (Auto) 0.9, Neutrophils # (Auto) 3.3, Lymphocytes # (Auto) 1.5, Monocytes # (Auto) 0.7, Eosinophils # (Auto) 0.1, Basophils # (Auto) 0.1, Nucleated Red Blood Cells % (auto) 0.7H, Anion Gap 3L, Glomerular Filtration Rate 26.9L, Calcium Level 8.9, Total Creatine Kinase 33, Creatine Kinase MB 1.1, Creatine Kinase MB Relative Index 3.33, Troponin I < 0.02 04/09/20 21:39: Bedside Glucose (Misc Panel) 416H 04/09/20 21:42: Coronavirus (COVID-19)(PCR) NEGATIVE CBC/BMP Laboratory Tests 04/09/20 20:00 Home Medications Scheduled Allopurinol (Zyloprim) 300 Mg Tab, 300 MG PO DAILY Ammonium Lactate (Ammonium Lactate) 12 % Cre, 1 DOSE TOP BID APPLY TO LEGS/FEET Apixaban (Eliquis) 5 Mg Tablet, 5 MG PO BID Atenolol (Atenolol) 25 Mg Tablet, 25 MG PO BID Atorvastatin Calcium (Atorvastatin Calcium) 10 Mg Tab, 10 MG PO QHS Betamethasone Mala (Betamethasone Valerate) 45 Gm Oint, 1 DOSE TOP QHS USES ON LEGS FOR HOTSPOTS Calcitriol (Rocaltrol) 0.5 Mcg Capsule, 0.5 MCG PO DAILY Colchicine (Colchicine) 0.6 Mg Tab, 0.6 MG PO DAILY Cyclosporine (Cequa) 0.09% Droperette, 1 DROP OU BID Docusate Sodium (Docusate Sodium) 100 Mg Cap, 100 MG PO BID Duloxetine Hcl (Cymbalta) 60 Mg Capsule.dr, 60 MG PO BID Ergocalciferol (Vitamin D2) (Vitamin D2) 50,000 Units Cap, 50,000 UNITS PO QMONTH 1ST OF EVERY MONTH Fluticasone Furoate (Arnuity Ellipta) 100 Mcg Blst.w.dev, 1 PUFF INH QHS Insulin Degludec (Tresiba) 100 Unit/1 Ml Vial, 40 UNIT SC BID Insulin Lispro (Humalog Kwikpen U-200) 200 Unit/1 Ml Insuln.pen, 1 DOSE SC ACHS PATIENT SPECIFIC SLIDING SCALE Lactulose (Lactulose) 10 Gm/15 Ml Solution, 30 ML PO BID Levetiracetam (Levetiracetam ER) 500 Mg Lindsay, 500 MG PO BID Nortriptyline HCl (Nortriptyline HCl) 10 Mg Capsule, 10 MG PO BID Omeprazole (Omeprazole) 20 Mg Cap, 20 MG PO BID Polyethylene Glycol 3350 (Miralax) 119 Gm Powder, 17 GM PO BID Pregabalin (Lyrica) 150 Mg Capsule, 150 MG PO TID Spironolactone (Spironolactone) 25 Mg Tablet, 25 MG PO DAILY Sucralfate (Sucralfate) 1 Gm Tab, 1 GM PO BID Torsemide (Torsemide) 100 Mg Tablet, 100 MG PO DAILY Scheduled PRN Acetaminophen (Tylenol Arthritis) 650 Mg Tablet.er, 650 MG PO QID PRN for PAIN / FEVER Albuterol Sulf (Albuterol Sulfate) 2.5 Mg/3 Ml Nebu, 2.5 MG INH QID PRN for SHORTNESS OF BREATH Albuterol Sulfate (Ventolin Hfa) 18 Gm Hfa.aer.ad, 2 PUFFS INH QID PRN for SHORTNESS OF BREATH Nystatin (Nystatin) 100,000 Unit/Gm Cre, 1 DOSE TOP BID PRN for RASH UNDER BREASTS AND GROIN AREA Ondansetron HCl (Ondansetron HCl) 4 Mg Tab, 4 MG PO QID PRN for NAUSEA OR VOMITING Miscellaneous Medications [Patient Comment] MED REC COMPLETED VIA PREVIOUS DISCHARGE PAPERWORK (04/02/2020) Allergies Coded Allergies: Cephalosporins (Verified Allergy, Intermediate, hives, 07/09/19) Penicillins (Verified Allergy, Intermediate, hives, 07/09/19) Sulfa (Sulfonamide Antibiotics) (Verified Allergy, Intermediate, hives, 07/09/19) chlorpromazine (Verified Allergy, Intermediate, hiives, 07/09/19) loratadine (Verified Allergy, Intermediate, hives, 07/09/19) pentazocine (Verified Allergy, Intermediate, hives, 07/09/19) TAPE (Verified Allergy, Unknown, band-aids, 07/09/19) methadone (Verified Allergy, Unknown, 07/09/19) HAS HAD DILAUDID AND DEMEROL IN THE PAST JESSICA FRAUSTO MD Apr 10, 2020 01:47
[2020-04-10] MEDS: NORCO, ANEXSIA 5/325MG TABLET (HYDROcodone/ACETAMINOPHEN) PO PRN ×3 (02:14→17:00)
[2020-04-10] MEDS: HumaLOG INSULIN (NovoLOG) PER UNIT SC SCH ×5 (02:15→21:50)
[2020-04-10] MEDS ORDERED: LEVEMIR (INSULIN DETEMIR) 1 UNITS/0.01ML SC ONE ×2 (02:45→07:30)
[2020-04-10] MEDS: ATORVASTATIN 10 MG TAB PO SCH ×2 (03:29→21:51)
--- NOTE | 2020-04-10 05:31 | ECGEPIP ---
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
[2020-04-10] MEDS: MIRALAX *UNIT DOSE* 17GM PACKET PO SCH ×2 (08:29→21:49)
[2020-04-10] MEDS: PANTOPRAZOLE 40MG VIAL (C9113 PER 1) IV SCH ×2 (08:29→21:50)
[2020-04-10] MEDS: LACTIC ACID 12% LOTION 225 GM BTL TOP SCH ×2 (08:29→21:52)
[2020-04-10] MEDS: LACTULOSE 20 GM/30 ML SYRUP UD PO SCH ×2 (08:30→21:50)
[2020-04-10] MEDS: COLCHICINE 0.6 MG TABLET PO SCH (08:30)
[2020-04-10] MEDS: PREGABALIN 75 MG CAP(LYRICA) PO SCH ×3 (08:31→21:51)
[2020-04-10] MEDS: TORSEMIDE 100 MG TAB PO SCH (08:31)
[2020-04-10] MEDS: levETIRAcetam **XR** 500 MG TABLET PO SCH ×2 (08:31→21:51)
[2020-04-10] MEDS: SPIRONOLACTONE 25 MG TAB PO SCH (08:31)
[2020-04-10] MEDS: CALCITRIOL 0.25 MCG CAP (S0169) PO SCH (08:31)
[2020-04-10] MEDS: DULoxetine 30 MG CAP (CYMBALTA) PO SCH ×2 (08:31→21:52)
[2020-04-10] MEDS: NORTRIPTYLINE 10 MG CAP PO SCH ×2 (08:31→21:51)
[2020-04-10] MEDS: SUCRALFATE 1 GM TAB PO SCH ×2 (08:32→21:52)
[2020-04-10] MEDS: DOCUSATE SODIUM 100MG CAPSULE PO SCH ×2 (08:32→21:52)
[2020-04-10] MEDS: atenoloL 25 MG TAB PO SCH ×2 (08:34→21:51)
[2020-04-10 08:37] LABS: BASO # 0.1 10^3/uL (0.0-0.2); EOS # 0.1 10^3/uL (0.0-0.5); EOS % 1.7 % (0.0-3.0); HEMATOCRIT 31.2 % (36.0-47.0); HEMOGLOBIN 8.9 g/dl (12.0-15.5); LYMPH # 1.4 10^3/uL (1.5-5.0); LYMPH % 24.5 % (24.0-44.0); MEAN CORPUSCULAR HEMOGLOBIN 24.9 pg (27.0-33.0); MEAN CORPUSCULAR HGB CONC 28.5 g/dl (32.0-36.5); MEAN CORPUSCULAR VOLUME 87.2 fl (80.0-96.0); MONO # 0.8 10^3/uL (0.0-0.8); MONO % 12.8 % (0.0-5.0); NEUTROPHILS # 3.5 10^3/uL (1.5-8.5); NEUTROPHILS % 59.3 % (36.0-66.0); PLATELET COUNT, AUTOMATED 144 10^3/uL (150-450); RED BLOOD COUNT 3.58 10^6/uL (4.00-5.40); WHITE BLOOD COUNT 5.9 10^3/uL (4.0-10.0)
[2020-04-10] MEDS ORDERED: LEVEMIR (INSULIN DETEMIR) 1 UNITS/0.01ML SC SCH (09:00)
[2020-04-10] MEDS ORDERED: PANTOPRAZOLE 40MG VIAL (C9113 PER 1) IV SCH (09:00)
[2020-04-10] MEDS ORDERED: OMEPRAZOLE 20 MG CAP PO SCH (09:00)
[2020-04-10 09:07] LABS: ALBUMIN 2.9 GM/DL (3.2-5.2); ALT/SGPT 30 U/L (12-78); BILIRUBIN,TOTAL 0.8 MG/DL (0.2-1.0); BLOOD UREA NITROGEN 32 MG/DL (7-18); CALCIUM LEVEL 8.2 MG/DL (8.8-10.2); CARBON DIOXIDE LEVEL 35 MEQ/L (21-32); CHLORIDE LEVEL 101 MEQ/L (98-107); CREATININE FOR GFR 1.61 MG/DL (0.55-1.30); GLOMERULAR FILTRATION RATE 33.2 (>39); GLUCOSE, FASTING 257 MG/DL (70-100); POTASSIUM SERUM 3.7 MEQ/L (3.5-5.1); SODIUM LEVEL 140 MEQ/L (136-145); TOTAL PROTEIN 5.3 GM/DL (6.4-8.2); TROPONIN I < 0.02 NG/ML (< 0.10)
[2020-04-10] MEDS: SODIUM CHLORIDE 0.9% INJ 10 ML SYR IV SCH (09:59)
--- NOTE | 2020-04-10 13:22 | CR ---
CONSULTATION DATE: 04/10/2020 REASON FOR CONSULTATION: GI bleed. 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 She was found to be anemic in the Emergency Room with a hemoglobin of 6.8 with positive Hemoccult blood in her stool. She did not have any visible blood on rectal exam. She was given 2 units of blood in the Emergency Room. This morning she already feels improved. She did not have any other symptoms on admission. No chest pain or shortness of breath. No cough. No nausea, vomiting or diarrhea. No abdominal pains. She claims that she has had issues with GI bleeding in the past, most recently she had a hospital admission in July of this year for the similar findings. She was transfused a couple of units of blood at that time. She remained stable and was able to be discharged home. Her GI definitely is not any acute bleeding, this is more of a chronic issue with her. She also has had multiple endoscopies in the past with Dr. Hoskins, most recent report I believe was 2016. At that time, he was recommending against any further endoscopies due to her pulmonary status and being a very poor candidate for any surgical intervention. Again, today she is stable currently. Hemoglobin responded to the 2 units of blood appropriately and she is already feeling signs of improvement. PAST MEDICAL HISTORY: Chronic hypertension, COPD, chronic oxygen dependent respiratory failure, chronic pulmonary hypertension, cognitive impairment, diabetes, chronic kidney disease, history of a parietal CVA, history of multiple DVTs with an IVC filter in place, longstanding persistent A-fib on Eliquis, gout, seizure disorder, chronic urinary retention, GERD, iron deficient anemia, morbid obesity, obstructive sleep apnea. PAST SURGICAL HISTORY: Hiatal hernia repair, hysterectomy, hip replacement, three discectomies. SOCIAL HISTORY: Denies drug, alcohol or tobacco abuse. FAMILY HISTORY: Noncontributory. ALLERGIES: Cephalosporins, penicillin, sulfa, tape, Chlorpromazine, loratadine, methadone, Pentazocine. MEDICATIONS: Please see med req. REVIEW OF SYSTEMS: Pertinent positives and negatives as stated in the HPI. PHYSICAL EXAMINATION: GENERAL: The patient is alert and oriented x3, in no acute distress. VITAL SIGNS: Temperature 97.4, pulse is 66, respirations are 17, blood pressure is 107/47, pulse oximetry 99% on 1 liter nasal cannula. HEENT: Pupils equally round and reactive to light and accommodation. HEART: S1 and S2. Regular rate and rhythm. LUNGS: Clear to auscultation bilaterally. ABDOMEN: Soft, nondistended and nontender. EXTREMITIES: Bilateral lower extremity edema. LABORATORY DATA: Hemoglobin 6.8 last evening and up to 8.9 this morning after 2 units of blood. Hematocrit 31.2, platelets 144,000. Creatinine 1.61. ASSESSMENT AND PLAN: The patient is a 74-year-old female with a history of known GI bleed in the past, also with a known history of gastritis, currently presenting with symptomatic anemia likely secondary to chronic anemia. At this time, there is no emergent indication for upper or lower endoscopy because with her bleeding being this slow, it is unlikely that endoscopy would be of any therapeutic benefit, it would only be for diagnostic purposes. RECOMMENDATIONS: To continue with bleeding prophylaxis as much as possible including PPI, possibly start her on some Carafate, continue to monitor her. If she shows signs of bleeding then we will consider endoscopy if needed. Otherwise, according to a note from Dr. Hoskins a couple of years ago his last recommendation was upper GI with small bowel follow through to evaluate for any lesions followed by possible capsule endoscopy if needed. As far as I can see, she has not had any of those completed at this point and that would probably be the next recommendation.
[2020-04-10] MEDS: BETAMETHASONE VAL 0.1% OINT 15 GM TOP SCH (21:49)
[2020-04-10] MEDS: SODIUM CHLORIDE 0.9% INJ 10 ML SYR IV PRN (21:50)
[2020-04-11 02:00] VITALS: BP 138/81
[2020-04-11 06:00] VITALS: BP 149/69
[2020-04-11] MEDS: HumaLOG INSULIN (NovoLOG) PER UNIT SC SCH ×4 (08:28→21:24)
[2020-04-11] MEDS: DULoxetine 30 MG CAP (CYMBALTA) PO SCH ×2 (08:29→21:23)
[2020-04-11] MEDS: TORSEMIDE 100 MG TAB PO SCH (08:29)
[2020-04-11] MEDS: PREGABALIN 75 MG CAP(LYRICA) PO SCH ×2 (08:29→15:49)
[2020-04-11] MEDS: CALCITRIOL 0.25 MCG CAP (S0169) PO SCH (08:29)
[2020-04-11] MEDS: PANTOPRAZOLE 40MG VIAL (C9113 PER 1) IV SCH ×2 (08:30→21:22)
[2020-04-11] MEDS: SPIRONOLACTONE 25 MG TAB PO SCH (08:30)
[2020-04-11] MEDS: levETIRAcetam **XR** 500 MG TABLET PO SCH ×2 (08:30→21:28)
[2020-04-11] MEDS: DOCUSATE SODIUM 100MG CAPSULE PO SCH ×2 (08:30→21:22)
[2020-04-11] MEDS: LACTULOSE 20 GM/30 ML SYRUP UD PO SCH ×2 (08:30→21:22)
[2020-04-11] MEDS: COLCHICINE 0.6 MG TABLET PO SCH (08:30)
[2020-04-11] MEDS: SUCRALFATE 1 GM TAB PO SCH ×2 (08:30→21:22)
[2020-04-11] MEDS: NORTRIPTYLINE 10 MG CAP PO SCH ×2 (08:31→21:28)
[2020-04-11] MEDS: MIRALAX *UNIT DOSE* 17GM PACKET PO SCH ×2 (08:31→21:23)
[2020-04-11] MEDS: SODIUM CHLORIDE 0.9% INJ 10 ML SYR IV SCH (08:32)
[2020-04-11] MEDS: atenoloL 25 MG TAB PO SCH ×2 (08:33→21:22)
[2020-04-11] MEDS: LACTIC ACID 12% LOTION 225 GM BTL TOP SCH ×2 (08:50→21:25)
[2020-04-11] MEDS ORDERED: LEVEMIR (INSULIN DETEMIR) 1 UNITS/0.01ML SC SCH (09:00)
[2020-04-11 09:24] LABS: HEMATOCRIT 34.5 % (36.0-47.0); HEMOGLOBIN 9.6 g/dl (12.0-15.5); MEAN CORPUSCULAR HEMOGLOBIN 24.3 pg (27.0-33.0); MEAN CORPUSCULAR HGB CONC 27.8 g/dl (32.0-36.5); MEAN CORPUSCULAR VOLUME 87.3 fl (80.0-96.0); PLATELET COUNT, AUTOMATED 158 10^3/uL (150-450); RED BLOOD COUNT 3.95 10^6/uL (4.00-5.40); WHITE BLOOD COUNT 6.8 10^3/uL (4.0-10.0)
[2020-04-11] MEDS: NORCO, ANEXSIA 5/325MG TABLET (HYDROcodone/ACETAMINOPHEN) PO PRN ×2 (09:31→15:49)
[2020-04-11] MEDS: allopurinoL 300 MG TAB PO SCH (09:31)
[2020-04-11 09:54] LABS: CALCIUM LEVEL 7.7 MG/DL (8.8-10.2); CREATININE FOR GFR 1.27 MG/DL (0.55-1.30); GLOMERULAR FILTRATION RATE 43.7 (>39); POTASSIUM SERUM 3.6 MEQ/L (3.5-5.1)
[2020-04-11 10:00] VITALS: BP 119/59
--- NOTE | 2020-04-11 11:26 | IPNPDOC ---
Date Seen The patient was seen on 04/11/20. Progress Note SUBJECTIVE: Patient denies bright red blood per rectum, melena, black tarry stools, hematemesis, coffee-ground emesis, shortness of breath, chest pain, pressure, tightness. . She complains of generalized weakness and slight dizziness. OBJECTIVE PHYSICAL EXAMINATION: VITAL SIGNS: Please see below. GENERAL: No pallor, icterus, speaks in full sentences. No conversational dyspnea HEENT: No JVD, thyromegaly or cervical lymphadenopathy CARDIOVASCULAR: S1, S2, irregularly irregular, not tachycardic RESPIRATORY: Diminished but clear to auscultation. No wheezing or rales ABDOMINAL: Obese, soft, nontender, nondistended, positive bowel sounds 4 quadrants EXTREMITIES: No pitting edema LABORATORY DATA, IMAGING STUDIES, MICROBIOLOGY: Please see below. 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 . She was found to have symptomatic anemia with hemoglobin of 6.8 on arrival while she is on oral ac for chronic A. fib and CVA with history DVT and IVC filter. Symptomatic anemia -Secondary to GI bleed offoral ac. Transfuse RBCs with resultant improvement in hemoglobin -Surgical consult Acute blood loss anemia -Due to GI bleed in the setting of chronic oral ac for A. fib and CVA -Transfused 2 units RBCs with improvement Acute GI bleed -In the setting of chronic ac use for A. fib and CVA -High risk of respiratory acidosis with sedation EGD. -Tromper consulted to assess pulmonary risk due to, COPD, pulmonary hypertension, CHF . If EGD is warranted -Surgery consulted -Monitoring hemoglobin and hematocrit. No recurrent GI bleed -If high risk for endoscopy will need to try an IV heparin drip. Monitor for decrease in hemoglobin and hematocrit and bridged with warfarin. If no repeat bleeding Chronic Hypertension -Systolic blood pressure is 130 to 142, and her home atenolol, spironolactone and torsemide COPD/Chronic hypoxic respiratory failure /O2 dependent (2L) -Compensated Chronic HFpEF -Compensated Secondary pulmonary hypertension -Complicating care Cognitive impairment -Chronic IDDM -Fingersticks every before meals at bedtime with [facility] insulin coverage per s liding scale CKD 3 -At baseline creatinine Hx of R parietal CVA -Off ac due to acute GI bleed requiring 2 units RBC transfusion - high risk for respiratory acidosis and hypercapnic respiratory failure with EGD and conscious sedation -Once H&H has been stable for 24-48 hours. 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 May resume oral anticoagulant VS, I&O, 24H, Fishbone Vital Signs/I&O Vital Signs Date Time Temp Pulse Resp B/P (MAP) Pulse Ox O2 Delivery O2 Flow Rate FiO2 04/11/20 10:20 17 04/11/20 09:15 2.0 04/11/20 08:33 81 142/72 04/11/20 06:00 97.6 98 Nasal Cannula I&O- Last 24 Hours up to 6 AM 04/11/20 06:00 Intake Total 3280 ml Output Total 5525 ml Balance -2245 ml Laboratory Data 24H LABS Laboratory Tests 2 04/10/20 11:37: Bedside Glucose (Misc Panel) 263H 04/10/20 12:29: Troponin I < 0.02 04/10/20 16:53: Bedside Glucose (Misc Panel) 309H 04/10/20 20:10: Bedside Glucose (Misc Panel) 278H 04/11/20 06:31: Bedside Glucose (Misc Panel) 253H 04/11/20 08:27: Nucleated Red Blood Cells % (auto) 0.4H, Anion Gap 6L, Glomerular Filtration Rate 43.7, Calcium Level 7.7L CBC/BMP Laboratory Tests 04/11/20 08:27 NUSRAT GUERRERO MD Apr 11, 2020 11:10
[2020-04-11 14:00] VITALS: BP 122/59
[2020-04-11 17:59] LABS: ABG BASE EXCESS 8.6 (-2.0-2.0); ABG HCO3 35.7 MEQ/L (22.0-26.0); ABG O2 SATURATION 94.9 % (95.0-99.0); ABG PARTIAL PRESSURE O2 71.2 mmHg (75.0-100.0); ABG STANDARD HCO3 32.4 MEQ/L (22.0-26.0); ABG TOTAL CO2 37.6 MEQ/L (23.0-31.0); ABG pH (ARTERIAL) 7.368 UNITS (7.350-7.450)
[2020-04-11 18:05] LABS: ABG PARTIAL PRESSURE CO2 63.4 mmHg (35.0-45.0)
[2020-04-11] MEDS ORDERED: NALOXONE INJ 0.4MG/1ML VIAL (J2310 PER 1MG) IV ONE (18:30)
[2020-04-11 18:40] LABS: ALBUMIN 3.1 GM/DL (3.2-5.2); BILIRUBIN,TOTAL 0.5 MG/DL (0.2-1.0); CALCIUM LEVEL 8.3 MG/DL (8.8-10.2); CREATININE FOR GFR 1.35 MG/DL (0.55-1.30); GLOMERULAR FILTRATION RATE 40.7 (>39); POTASSIUM SERUM 3.6 MEQ/L (3.5-5.1); TOTAL PROTEIN 6.3 GM/DL (6.4-8.2)
--- NOTE | 2020-04-11 18:52 | REP ---
INDICATION: sob COMPARISON: 03/25/2020, 04/09/2020 TECHNIQUE: Portable AP view of the chest FINDINGS: The mediastinum and cardiac silhouette are stable and within normal limits for portable technique. [id number] with tip in the SVC again noted. The lung diaz demonstrate chronic changes primarily involving the left lower lung zone without definite focal consolidation, effusion or pneumothorax.. Skeletal structures are intact. IMPRESSION: Presumed chronic stable changes in the left lower lung zone. No further acute consolidation or effusion. <Electronically signed by Ramos Chaparro > 04/11/20 [id number]
[2020-04-11 20:12] VITALS: BP 133/58
[2020-04-11] MEDS ORDERED: NON-FORMULARY 1 EA EA INH SCH (21:00)
[2020-04-11] MEDS: SODIUM CHLORIDE 0.9% INJ 10 ML SYR IV PRN (21:21)
[2020-04-11] MEDS: ATORVASTATIN 10 MG TAB PO SCH (21:23)
[2020-04-11] MEDS: LEVEMIR (INSULIN DETEMIR) 1 UNITS/0.01ML SC SCH (21:24)
[2020-04-11] MEDS: BETAMETHASONE VAL 0.1% OINT 15 GM TOP SCH (21:25)
[2020-04-12] VITALS (11 sets, daily range): BP systolic 124–142; BP diastolic 58–66
[2020-04-12] MEDS: SODIUM CHLORIDE 0.9% INJ 10 ML SYR IV PRN ×2 (05:14→19:57)
[2020-04-12 05:20] LABS: HEMATOCRIT 32.5 % (36.0-47.0); HEMOGLOBIN 8.8 g/dl (12.0-15.5); MEAN CORPUSCULAR HEMOGLOBIN 23.8 pg (27.0-33.0); MEAN CORPUSCULAR HGB CONC 27.1 g/dl (32.0-36.5); MEAN CORPUSCULAR VOLUME 87.8 fl (80.0-96.0); PLATELET COUNT, AUTOMATED 131 10^3/uL (150-450); WHITE BLOOD COUNT 3.9 10^3/uL (4.0-10.0)
[2020-04-12 06:20] LABS: CALCIUM LEVEL 8.4 MG/DL (8.8-10.2); CREATININE FOR GFR 1.28 MG/DL (0.55-1.30); GLOMERULAR FILTRATION RATE 43.3 (>39); POTASSIUM SERUM 3.3 MEQ/L (3.5-5.1)
[2020-04-12 06:37] LABS: ABG HCO3 38.5 MEQ/L (22.0-26.0); ABG O2 SATURATION 99.2 % (95.0-99.0); ABG PARTIAL PRESSURE CO2 54.7 mmHg (35.0-45.0); ABG STANDARD HCO3 36.8 MEQ/L (22.0-26.0); ABG TOTAL CO2 40.1 MEQ/L (23.0-31.0); ABG pH (ARTERIAL) 7.465 UNITS (7.350-7.450)
[2020-04-12] MEDS: HumaLOG INSULIN (NovoLOG) PER UNIT SC SCH ×4 (07:53→20:11)
[2020-04-12] MEDS: NORTRIPTYLINE 10 MG CAP PO SCH ×2 (08:08→20:00)
[2020-04-12] MEDS: DOCUSATE SODIUM 100MG CAPSULE PO SCH ×2 (08:08→19:58)
[2020-04-12] MEDS: DULoxetine 30 MG CAP (CYMBALTA) PO SCH ×2 (08:08→20:01)
[2020-04-12] MEDS: LACTULOSE 20 GM/30 ML SYRUP UD PO SCH ×2 (08:08→19:57)
[2020-04-12] MEDS: COLCHICINE 0.6 MG TABLET PO SCH (08:09)
[2020-04-12] MEDS: atenoloL 25 MG TAB PO SCH ×2 (08:09→20:02)
[2020-04-12] MEDS: SUCRALFATE 1 GM TAB PO SCH ×4 (08:09→20:01)
[2020-04-12] MEDS: CALCITRIOL 0.25 MCG CAP (S0169) PO SCH (08:09)
[2020-04-12] MEDS: levETIRAcetam **XR** 500 MG TABLET PO SCH ×2 (08:09→20:00)
[2020-04-12] MEDS: SPIRONOLACTONE 25 MG TAB PO SCH (08:09)
[2020-04-12] MEDS: ACETAMINOPHEN TAB 650MG DOSE (2X325MG) PO PRN ×2 (08:10→19:58)
[2020-04-12] MEDS: TORSEMIDE 100 MG TAB PO SCH (08:10)
[2020-04-12] MEDS: MIRALAX *UNIT DOSE* 17GM PACKET PO SCH ×2 (08:10→19:57)
[2020-04-12] MEDS: SODIUM CHLORIDE 0.9% INJ 10 ML SYR IV SCH (08:11)
[2020-04-12] MEDS: LACTIC ACID 12% LOTION 225 GM BTL TOP SCH ×2 (08:12→20:06)
[2020-04-12] MEDS: LEVEMIR (INSULIN DETEMIR) 1 UNITS/0.01ML SC SCH (08:12)
[2020-04-12] MEDS: PANTOPRAZOLE 40MG VIAL (C9113 PER 1) IV SCH ×2 (08:12→20:01)
[2020-04-12] MEDS ORDERED: POTASSIUM CHLORIDE 10 MEQ SR TABLET PO ONE (09:00)
[2020-04-12] MEDS: allopurinoL 300 MG TAB PO SCH (09:42)
--- NOTE | 2020-04-12 12:43 | IPNPDOC ---
Date Seen The patient was seen on 04/12/20. Progress Note SUBJECTIVE: Patient had altered mental status and lethargy and found to have acute respiratory acidosis and hypercapnic respiratory failure yesterday requiring her BiPAP and improved with repeat ABG this morning. Patient denies bright red blood per rectum, melena, black tarry stools but still with decreasing hemoglobin and complains of generalized weakness and slight lightheadedness without chest pain, pressure, tightness or shortness of breath OBJECTIVE PHYSICAL EXAMINATION: VITAL SIGNS: Please see below. GENERAL: Pale. No cyanosis present. appears comfortable HEENT: No JVD, thyromegaly or cervical lymphadenopathy CARDIOVASCULAR: S1, S2, irregularly irregular, not tachycardic RESPIRATORY: Diminished but clear to auscultation. No wheezing or rales ABDOMINAL: Obese, soft, nontender, nondistended, positive bowel sounds 4 quadrants EXTREMITIES: No pitting edema LABORATORY DATA, IMAGING STUDIES, MICROBIOLOGY: Please see below. ASSESSMENT AND PLAN: A 74-year-old female sent by her special education teacher for evaluation of generalized weakness With complaints of black tarry stools at home. . She was found to have symptomatic anemia with hemoglobin of 6.8 on arrival while she is on oral ac for chronic A. fib and CVA with history DVT and IVC filter. Symptomatic anemia -Secondary to GI bleed -off oral ac. -Continues to have decreasing hemoglobin, requiring more RBC transfusion and unable start IV heparin for for chronic A. fib and CVA Acute blood loss anemia -Due to GI bleed in the setting of chronic oral ac for A. fib and CVA -Transfused 2 units RBCs with improvement -off oral ac. -Continues to have decreasing hemoglobin, requiring more RBC transfusion and unable start IV heparin for for chronic A. fib and CVA Acute GI bleed -In the setting of chronic ac use for A. fib and CVA -Despite RBC transfusion. She continues to decrease hemoglobin and hematocrit, but denies having any recurrent GI bleed with black tarry stools, bright red blood per rectum or melena -Still with symptomatic anemia and will require 1 unit RBC transfusion today -On PPI and Carafate off oral anticoagulation Chronic Hypertension -Systolic blood pressure is 130 to 142, and her home atenolol, spironolactone and torsemide COPD/Chronic hypoxic respiratory failure /O2 dependent (2L) -Compensated Chronic HFpEF -Compensated Secondary pulmonary hypertension -Complicating care Cognitive impairment -Chronic IDDM -Fingersticks every before meals at bedtime with [facility] insulin coverage per sliding scale CKD 3 -At baseline creatinine Hx of R parietal CVA -Off ac due to acute GI bleed requiring 2 units RBC transfusion - high risk for respiratory acidosis and hypercapnic respiratory failure with EGD and conscious sedation -Once H&H has been stable for 24-48 hours. 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 2 be stabilized, then we'll need to start IV heparin and monitor for current bleeding is noted. No plans for EGD due to her high risk for respiratory acidosis VS, I&O, 24H, Fishbone Vital Signs/I&O Vital Signs Date Time Temp Pulse Resp B/P (MAP) Pulse Ox O2 Delivery O2 Flow Rate FiO2 04/12/20 09:00 2.0 04/12/20 08:09 82 134/58 04/12/20 08:00 97.9 17 97 Nasal Cannula I&O- Last 24 Hours up to 6 AM 04/12/20 06:00 Intake Total 1080 ml Output Total 2900 ml Balance -1820 ml Laboratory Data 24H LABS Laboratory Tests 2 04/11/20 17:00: Bedside Glucose (Misc Panel) 289H 04/11/20 17:48: Blood Gas Bicarbonate Standard 32.4H, Arterial Blood pH 7.368, Arterial Blood Partial Pressure CO2 63.4*H, Arterial Blood Partial Pressure O2 71.2L, Arterial Blood Total CO2 37.6H, Arterial Blood HCO3 35.7H, Arterial Blood Base Excess 8.6H, Arterial Blood Oxygen Saturation 94.9L 04/11/20 18:02: Anion Gap 3L, Glomerular Filtration Rate 40.7, Calcium Level 8.3L, Total Bilirubin 0.5, Aspartate Amino Transf (AST/SGOT) 16, Alanine Aminotransferase (ALT/SGPT) 30, Alkaline Phosphatase 64, Ammonia 11, FL-Yew-W-Type Natriuretic Peptide 312, Total Protein 6.3L, Albumin 3.1L, Albumin/Globulin Ratio 1.0L 04/11/20 19:58: Bedside Glucose (Misc Panel) 289H 04/12/20 05:10: Nucleated Red Blood Cells % (auto) 0.0, Anion Gap 13, Glomerular Filtration Rate 43.3, Calcium Level 8.4L 04/12/20 05:43: Blood Gas Bicarbonate Standard 36.8H, Arterial Blood pH 7.465H, Arterial Blood Partial Pressure CO2 54.7H, Arterial Blood Partial Pressure O2 206.0H, Arterial Blood Total CO2 40.1H, Arterial Blood HCO3 38.5H, Arterial Blood Base Excess 13.0H, Arterial Blood Oxygen Saturation 99.2H 04/12/20 12:10: Bedside Glucose (Misc Panel) 326H CBC/BMP Laboratory Tests 04/11/20 18:02 04/12/20 05:10 NUSRAT GUERRERO MD Apr 12, 2020 12:43
--- NOTE | 2020-04-12 14:28 | CCN ---
CRITICAL CARE NOTE DATE: 04/11/2020 SUBJECTIVE: I was called to immediately evaluate this 74-year-old female for progressive hypercarbia. The patient is known to have diaphragm dysfunction, asthma, and obstructive sleep apnea syndrome. She was admitted to the hospital yesterday complaining of weakness and found to have a profoundly depressed hemoglobin, possibly related to blood loss. There is an extensive past medical history of hypertension, asthma, diaphragm dysfunction, DVT post IVC filter placement, atrial fibrillation, and chronic kidney disease. She has received 2 units of packed red cells. Her fluid volume by I and Os is negative. OBJECTIVE: VITAL SIGNS: Temperature is 98, pulse rate is 80, respirations 18, blood pressure 122/53, oxygen saturation 95% on 2 liters. HEENT: She is wearing dentures currently and noninvasive positive pressure ventilator mask is in place and fitting well. NECK: There is no adenopathy. Jugular veins are unable to be appreciated. The carotid upstroke is palpable. Neck is quite arzola. HEART: Sounds are irregularly irregular consistent with atrial fibrillation. LUNGS: Breath sounds are diminished in the bases with dullness in the left base. ABDOMEN: Soft and obese. EXTREMITIES: Show pulses x4. DIAGNOSTIC STUDIES: Her CBC shows a white count of 6.8, hemoglobin 9.6, hematocrit 34.5, platelet count 158,000. Differential white cell count did not show a left shift. Her electrolytes are sodium 141, potassium 3.6, chloride 98, CO2 of 40, BUN 16, creatinine 1.35, glucose 274. Albumin 1.3. An arterial blood gas was performed as she was being placed on noninvasive ventilation. Her pH was 7.36, pCO2 of 63, pO2 of 71. DIAGNOSTIC IMAGING STUDIES: Reviewed. Her chest x-ray shows atelectasis in the left lobe and collapse of the left lower lobe, which is chronic. ASSESSMENT AND PLAN: The primarily problem requiring critical attention is acute on chronic hypercarbic respiratory failure. I believe the patient suffers from obesity hypoventilation syndrome, which is aggravated by left hemidiaphragm dysfunction. Now on BiLevel pressure therapy, she is in her usual state of mind, awake, alert, and conversant. She uses BiPAP at home and her has been asked to bring in her home unit. As we have no intensive care unit (ICU) beds to transfer her to, I will ask that she be kept on [facility] with continuous saturation monitoring. We will recheck an arterial blood gas in the morning to assess the affects on her pCO2. Her condition is serious, but she is responding to therapy. Prognosis is guarded. Pending reevaluation of her morning arterial blood gases, we will be able to better predict her risk for undergoing any procedures necessary to evaluate for her anemia. CRITICAL CARE TIME: 72 minutes was spent in the provision of bedside critical care and coordination, exclusive of any procedure time.
[2020-04-12] MEDS: ATORVASTATIN 10 MG TAB PO SCH (20:00)
[2020-04-12] MEDS: BETAMETHASONE VAL 0.1% OINT 15 GM TOP SCH (20:06)
[2020-04-12] MEDS ORDERED: LEVEMIR (INSULIN DETEMIR) 1 UNITS/0.01ML SC SCH (21:00)
[2020-04-13] MEDS: ACETAMINOPHEN TAB 650MG DOSE (2X325MG) PO PRN ×2 (01:59→11:30)
[2020-04-13 05:13] LABS: HEMATOCRIT 33.8 % (36.0-47.0); HEMOGLOBIN 9.6 g/dl (12.0-15.5); MEAN CORPUSCULAR HEMOGLOBIN 25.1 pg (27.0-33.0); MEAN CORPUSCULAR HGB CONC 28.4 g/dl (32.0-36.5); MEAN CORPUSCULAR VOLUME 88.5 fl (80.0-96.0); PLATELET COUNT, AUTOMATED 131 10^3/uL (150-450); RED BLOOD COUNT 3.82 10^6/uL (4.00-5.40); WHITE BLOOD COUNT 4.3 10^3/uL (4.0-10.0)
[2020-04-13] MEDS: SODIUM CHLORIDE 0.9% INJ 10 ML SYR IV PRN (05:15)
[2020-04-13 05:59] LABS: CALCIUM LEVEL 8.7 MG/DL (8.8-10.2); CREATININE FOR GFR 1.53 MG/DL (0.55-1.30); GLOMERULAR FILTRATION RATE 35.2 (>39); POTASSIUM SERUM 3.7 MEQ/L (3.5-5.1)
[2020-04-13 06:00] VITALS: BP 145/65
[2020-04-13] MEDS: HumaLOG INSULIN (NovoLOG) PER UNIT SC SCH ×4 (06:47→20:26)
[2020-04-13] MEDS ORDERED: HumaLOG INSULIN (NovoLOG) PER UNIT SC STA (07:32)
[2020-04-13] MEDS: SUCRALFATE 1 GM TAB PO SCH ×4 (07:35→20:24)
[2020-04-13] MEDS: FLUTICASONE HFA 44 MCG 10.6GM INHALER (FLOVENT) INH SCH ×2 (07:56→19:24)
[2020-04-13] MEDS ORDERED: LEVEMIR (INSULIN DETEMIR) 1 UNITS/0.01ML SC ONE (08:00)
[2020-04-13] MEDS: LACTULOSE 20 GM/30 ML SYRUP UD PO SCH ×2 (08:55→20:26)
[2020-04-13] MEDS: PANTOPRAZOLE 40MG VIAL (C9113 PER 1) IV SCH ×2 (08:55→20:23)
[2020-04-13] MEDS: COLCHICINE 0.6 MG TABLET PO SCH (08:56)
[2020-04-13] MEDS: CALCITRIOL 0.25 MCG CAP (S0169) PO SCH (08:56)
[2020-04-13] MEDS: SODIUM CHLORIDE 0.9% INJ 10 ML SYR IV SCH (08:56)
[2020-04-13] MEDS: TORSEMIDE 100 MG TAB PO SCH (08:56)
[2020-04-13] MEDS: MIRALAX *UNIT DOSE* 17GM PACKET PO SCH ×2 (08:56→20:23)
[2020-04-13] MEDS: NORTRIPTYLINE 10 MG CAP PO SCH ×2 (08:57→20:24)
[2020-04-13] MEDS: allopurinoL 300 MG TAB PO SCH (08:57)
[2020-04-13] MEDS: levETIRAcetam **XR** 500 MG TABLET PO SCH ×2 (08:57→20:24)
[2020-04-13] MEDS: SPIRONOLACTONE 25 MG TAB PO SCH (08:57)
[2020-04-13] MEDS: DOCUSATE SODIUM 100MG CAPSULE PO SCH ×2 (08:57→20:24)
[2020-04-13] MEDS: atenoloL 25 MG TAB PO SCH ×2 (08:58→20:44)
[2020-04-13] MEDS: DULoxetine 30 MG CAP (CYMBALTA) PO SCH ×2 (08:58→20:24)
[2020-04-13] MEDS: LACTIC ACID 12% LOTION 225 GM BTL TOP SCH ×2 (08:58→20:27)
[2020-04-13 10:00] VITALS: BP 112/49
[2020-04-13] MEDS ORDERED: HEPARIN SOD (PORCINE) 5000UNITS/ML 1ML VIAL/SYRINGE IV PRN (11:45)
[2020-04-13 12:25] LABS: HEMATOCRIT 37.8 % (36.0-47.0); HEMOGLOBIN 10.9 g/dl (12.0-15.5)
[2020-04-13 12:37] LABS: INR 1.05; PROTHROMBIN TIME 13.9 SECONDS (12.5-14.3)
[2020-04-13 12:38] LABS: PARTIAL THROMBOPLASTIN TIME 81.3 SECONDS (24.2-38.5)
[2020-04-13] MEDS: HEPARIN DRIP 25,000 UNITS in IV 1 EA IV SCH (13:11)
[2020-04-13 14:00] VITALS: BP 128/67
--- NOTE | 2020-04-13 14:06 | IPNPDOC ---
Date Seen The patient was seen on 04/13/20. Progress Note SUBJECTIVE: had a bm with black stools w/o bright red blood, abd pain, dizziness, sob, PND, or lightheadedness. no issues overnight and back to baseline mentation. denies hematemesis, epigastric abd pain, coffee ground emesis. OBJECTIVE PHYSICAL EXAMINATION: VITAL SIGNS: Please see below. GENERAL: aaox3 back to baseline mentation no conversational dyspnea or use of respiratory acc mm appears her stated age obese HEENT: No JVD, thyromegaly or cervical lymphadenopathy moist mm no stridor or carotid bruits CARDIOVASCULAR: S1, S2, irregularly irregular, not tachycardic RESPIRATORY: Diminished but clear to auscultation. No wheezing or rales ABDOMINAL: Obese, soft, nontender, nondistended, positive bowel sounds 4 quadrants EXTREMITIES: No pitting edema LABORATORY DATA, IMAGING STUDIES, MICROBIOLOGY: Please see below. 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 . She was found to have symptomatic anemia with hemoglobin of 6.8 on arrival while she is on oral ac for chronic A. fib and CVA with history DVT and IVC filter. Symptomatic anemia -Secondary to GI bleed -off oral anticoagulation initially due to hemoglobin of 6.8 on admission with black tarry stools -on ppi bid and carafate initially bid now qachs -after 3 units rbc transfusion, hgb now 10.9 -Trial of IV heparin drip for chronic afib w h/o cva and monitoring H&H for active bleeding Acute blood loss anemia -Due to GI bleed in the setting of chronic oral ac for A. fib and CVA -s/p 3urbc transfusion hgb increase from 6.8 to 10.9 on ppi and carafate -Trial of IV heparin drip for chronic afib w h/o cva and monitoring H&H for active bleeding Acute GI bleed -In the setting of chronic ac use for A. fib and CVA -Dr Nuñez recommended conservative mgt with ppi, carafate, and transfusion due to pt's respiratory issues -s/p 3 units rbc with hgb 10.9 w/o acute red blood loss -no plans for endoscopy anymore,but had been optimized by Pulmonary -Trial of IV heparin drip for chronic afib w h/o cva and monitoring H&H for active bleeding Acute metabolic encephalopathy -due to acute hypercapnic respiratory failure with acute respiratory acidosis -bipap mgt per pulmonolgist -resolved acidosis, and now back to baseline Chronic Hypertension -resumed on home atenolol, spironolactone and torsemide with holding parameters to prevent hypotension or bradycardia COPD/Chronic hypoxic respiratory failure /O2 dependent (2L) s/p acute respiratory acidosis/hypercapnic respiratory failure -s/p bipap due to elevated co2 narcosis and encephalopathy , but back to baseline mentation now. Chronic HFpEF -Compensated Secondary pulmonary hypertension -Complicating care Cognitive impairment -Chronic IDDM 2, uncontrolled -due to mechanical soft diet -changed to consistent carbs diet -increased levemir insulin to 50 units daily dose -to obtain faster glycemic control, will change fingersticks to q4hr until glucose<200, then change back to qachs with coverage CKD 3 -At baseline creatinine Hx of R parietal CVA -Off ac due to acute GI bleed requiring 2 units RBC transfusion - high risk for respiratory acidosis and hypercapnic respiratory failure with EGD and conscious sedation -Trial of IV heparin drip and monitoring H&H for active bleeding Hx of multiple DVTs / IVC filter -Off oral ac -Trial of IV heparin drip for chronic afib w h/o cva and monitoring H&H for active bleeding Chronic afib -off oral ac -Rate controlled -Trial of IV heparin drip for chronic afib w h/o cva and monitoring H&H for active bleeding -if no signs of new bleeding, and stable vitals and hemoglobin, may dc heparin gtt and restart po oral ac. 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 GERD Iron deficiency anemia RLS Morbid obesity MATT/OHS -BIPAP(14/6 w 2L O2) disposition: 1-2 days if no bleed while on heparin gtt may dc gtt and restart oral ac and dc home VS, I&O, 24H, Fishbone Vital Signs/I&O Vital Signs Date Time Temp Pulse Resp B/P (MAP) Pulse Ox O2 Delivery O2 Flow Rate FiO2 04/13/20 10:00 97.7 70 22 112/49 (70) 97 Nasal Cannula 2.0 I&O- Last 24 Hours up to 6 AM 04/13/20 06:00 Intake Total 3380 ml Output Total 3650 ml Balance -270 ml Laboratory Data 24H LABS Laboratory Tests 2 04/12/20 16:18: Bedside Glucose (Misc Panel) 355H 04/12/20 20:05: Bedside Glucose (Misc Panel) 430H 04/13/20 05:09: Nucleated Red Blood Cells % (auto) 0.0, Anion Gap 1L, Glomerular Filtration Rate 35.2L, Calcium Level 8.7L 04/13/20 09:33: Bedside Glucose (Misc Panel) 341H 04/13/20 11:18: Bedside Glucose (Misc Panel) 379H 04/13/20 12:01: Prothrombin Time 13.9, Prothromb Time International Ratio 1.05, Activated Partial Thromboplast Time 81.3H CBC/BMP Laboratory Tests 04/13/20 05:09 04/13/20 12:01 NUSRAT GUERRERO MD Apr 13, 2020 14:06
[2020-04-13 18:00] VITALS: BP 115/50
[2020-04-13 20:07] LABS: HEMATOCRIT 38.1 % (36.0-47.0); HEMOGLOBIN 10.7 g/dl (12.0-15.5)
[2020-04-13] MEDS: ATORVASTATIN 10 MG TAB PO SCH (20:24)
[2020-04-13] MEDS: BETAMETHASONE VAL 0.1% OINT 15 GM TOP SCH (20:27)
[2020-04-13 21:30] VITALS: BP 110/60
[2020-04-14] MEDS: HumaLOG INSULIN (NovoLOG) PER UNIT SC SCH ×3 (00:30→08:36)
[2020-04-14] MEDS: HEPARIN DRIP 25,000 UNITS in IV 1 EA IV SCH (04:20)
[2020-04-14 06:00] VITALS: BP 131/90
[2020-04-14 06:27] LABS: HEMATOCRIT 38.3 % (36.0-47.0); MEAN CORPUSCULAR HEMOGLOBIN 25.3 pg (27.0-33.0); MEAN CORPUSCULAR HGB CONC 28.7 g/dl (32.0-36.5); PLATELET COUNT, AUTOMATED 128 10^3/uL (150-450); RED BLOOD COUNT 4.35 10^6/uL (4.00-5.40); WHITE BLOOD COUNT 6.1 10^3/uL (4.0-10.0)
[2020-04-14] MEDS: FLUTICASONE HFA 44 MCG 10.6GM INHALER (FLOVENT) INH SCH (07:13)
[2020-04-14 07:14] VITALS: O2SAT 96
[2020-04-14 07:41] LABS: CREATININE FOR GFR 1.41 MG/DL (0.55-1.30); GLOMERULAR FILTRATION RATE 38.7 (>39); POTASSIUM SERUM 3.4 MEQ/L (3.5-5.1)
[2020-04-14] MEDS: SUCRALFATE 1 GM TAB PO SCH (08:37)
[2020-04-14] MEDS: DULoxetine 30 MG CAP (CYMBALTA) PO SCH (08:37)
[2020-04-14] MEDS: DOCUSATE SODIUM 100MG CAPSULE PO SCH (08:37)
[2020-04-14] MEDS: TORSEMIDE 100 MG TAB PO SCH (08:37)
[2020-04-14] MEDS: COLCHICINE 0.6 MG TABLET PO SCH (08:38)
[2020-04-14] MEDS: allopurinoL 300 MG TAB PO SCH (08:38)
[2020-04-14] MEDS: CALCITRIOL 0.25 MCG CAP (S0169) PO SCH (08:38)
[2020-04-14 08:42] VITALS: BP 128/59
[2020-04-14] MEDS: atenoloL 25 MG TAB PO SCH (08:42)
[2020-04-14] MEDS: MIRALAX *UNIT DOSE* 17GM PACKET PO SCH (08:42)
[2020-04-14] MEDS: SPIRONOLACTONE 25 MG TAB PO SCH (08:42)
[2020-04-14] MEDS: PANTOPRAZOLE 40MG VIAL (C9113 PER 1) IV SCH (08:42)
[2020-04-14] MEDS: NORTRIPTYLINE 10 MG CAP PO SCH (08:42)
[2020-04-14] MEDS: levETIRAcetam **XR** 500 MG TABLET PO SCH (08:42)
[2020-04-14] MEDS: LACTULOSE 20 GM/30 ML SYRUP UD PO SCH (08:42)
[2020-04-14] MEDS: SODIUM CHLORIDE 0.9% INJ 10 ML SYR IV SCH (08:43)
[2020-04-14] MEDS: LACTIC ACID 12% LOTION 225 GM BTL TOP SCH (08:44)
[2020-04-14] MEDS ORDERED: SUCR1TA PO (09:00)
[2020-04-14] MEDS ORDERED: APIXABAN 5 MG TAB (ELIQUIS) PO SCH (09:00)
[2020-04-14] MEDS ORDERED: PROTPAK PO (09:00)
--- NOTE | 2020-04-14 10:29 | DS.PDOC ---
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 . She was found to have symptomatic anemia with hemoglobin of 6.8 on arrival while she is on oral ac for chronic A. fib and CVA with history DVT and IVC filter. Symptomatic anemia -Secondary to GI bleed -off oral anticoagulation initially due to hemoglobin of 6.8 on admission with black tarry stools -on ppi bid and carafate initially bid now qachs -after 3 units rbc transfusion, hgb now 10.9-11 -s/p Trial of IV heparin drip for chronic afib w h/o cva -h&h stable after 24hrs iv heparin -resumed oral ac 04/14/20 for chronic afib and h/o cva w/o acute gi bleed and stable hgb. Acute blood loss anemia -Due to GI bleed in the setting of chronic oral ac for A. fib and CVA -s/p 3urbc transfusion hgb increase from 6.8 to 10.9 on ppi and carafate -s/p Trial of IV heparin drip for chronic afib w h/o cva -h&h stable after 24hrs iv heparin -resumed oral ac 04/14/20 for chronic afib and h/o cva w/o acute gi bleed and stable hgb. Acute GI bleed -In the setting of chronic ac use for A. fib and CVA -Dr Nuñez recommended conservative mgt with ppi, carafate, and transfusion due to pt's respiratory issues -s/p 3 units rbc with hgb 10.9 w/o acute red blood loss -no plans for endoscopy anymore,but had been optimized by Pulmonary -s/p Trial of IV heparin drip for chronic afib w h/o cva -h&h stable after 24hrs iv heparin -resumed oral ac 04/14/20 for chronic afib and h/o cva w/o acute gi bleed and stable hgb. Acute metabolic encephalopathy -due to acute hypercapnic respiratory failure with acute respiratory acidosis -bipap managed by pulmonolgist -resolved acidosis, and now back to baseline Chronic Hypertension -resumed on home atenolol, spironolactone and torsemide with holding parameters to prevent hypotension or bradycardia COPD/Chronic hypoxic respiratory failure /O2 dependent (2L) s/p acute respiratory acidosis/hypercapnic respiratory failure -s/p bipap due to elevated co2 narcosis and encephalopathy , but back to baseline mentation now. Chronic HFpEF -Compensated Secondary pulmonary hypertension -Complicating care Cognitive impairment -Chronic IDDM 2, uncontrolled -due to mechanical soft diet -changed to consistent carbs diet -increased levemir insulin to 50 units daily dose -to obtain faster glycemic control, changed fingersticks to q4hr until glucose<200 -changed back to fbg qachs with coverage CKD 3 -At baseline creatinine Hx of R parietal CVA -Off ac due to acute GI bleed requiring 2 units RBC transfusion - high risk for respiratory acidosis and hypercapnic respiratory failure with EGD and conscious sedation -s/p Trial of IV heparin drip for chronic afib w h/o cva -h&h stable after 24hrs iv heparin -resumed oral ac 04/14/20 for chronic afib and h/o cva w/o acute gi bleed and stable hgb. Hx of multiple DVTs / IVC filter -Off oral ac -s/p Trial of IV heparin drip for chronic afib w h/o cva -h&h stable after 24hrs iv heparin -resumed oral ac 04/14/20 for chronic afib and h/o cva w/o acute gi bleed and stable hgb. Chronic afib -off oral ac -Rate controlled -s/p Trial of IV heparin drip for chronic afib w h/o cva -h&h stable after 24hrs iv heparin -resumed oral ac 04/14/20 for chronic afib and h/o cva w/o acute gi bleed and stable hgb. 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 GENERAL: aaox3 back to baseline mentation no conversational dyspnea or use of respiratory acc mm appears her stated age obese HEENT: No JVD, thyromegaly or cervical lymphadenopathy moist mm no stridor or carotid bruits CARDIOVASCULAR: S1, S2, irregularly irregular, not tachycardic RESPIRATORY: Diminished but clear to auscultation. No wheezing or rales ABDOMINAL: Obese, soft, nontender, nondistended, positive bowel sounds 4 quadrants EXTREMITIES: No pitting edema LABORATORY DATA, IMAGING STUDIES, MICROBIOLOGY: Please see below. TIME SPENT ON DISCHARGE: 30MIN Vital Signs/I&Os Vital Signs Date Time Temp Pulse Resp B/P (MAP) Pulse Ox O2 Delivery O2 Flow Rate FiO2 04/14/20 08:42 80 128/59 04/14/20 07:14 96 Nasal Cannula 2.0 04/14/20 06:00 98.0 18 I&O- Last 24 Hours up to 6 AM 04/14/20 06:00 Intake Total 1755 ml Output Total 4200 ml Balance -2445 ml Laboratory Data Labs 24H Laboratory Tests 2 04/13/20 11:18: Bedside Glucose (Misc Panel) 379H 04/13/20 12:01: Prothrombin Time 13.9, Prothromb Time International Ratio 1.05, Activated Partial Thromboplast Time 81.3H 04/13/20 15:54: Bedside Glucose (Misc Panel) 324H 04/13/20 19:29: Activated Partial Thromboplast Time 69.3H 04/13/20 19:44: Bedside Glucose (Misc Panel) 394H 04/14/20 00:20: Bedside Glucose (Misc Panel) 308H 04/14/20 03:59: Bedside Glucose (Misc Panel) 347H 04/14/20 06:16: Nucleated Red Blood Cells % (auto) 0.0, Activated Partial Thromboplast Time 80.6H, Anion Gap 5L, Glomerular Filtration Rate 38.7L, Calcium Level 9.0 04/14/20 10:01: Bedside Glucose (Misc Panel) 347H CBC/BMP Laboratory Tests 04/13/20 12:01 04/13/20 19:29 04/14/20 06:16 FSBS Laboratory Tests Test 04/13/20 11:18 04/13/20 15:54 04/13/20 19:44 04/14/20 00:20 Range/Units Bedside Glucose (Misc Panel) 379 324 394 308 83-110 MG/DL Test 04/14/20 03:59 04/14/20 10:01 Range/Units Bedside Glucose (Misc Panel) 347 347 83-110 MG/DL Discharge Medications Scheduled Allopurinol (Zyloprim) 300 Mg Tab, 300 MG PO DAILY, (Reported) Ammonium Lactate (Ammonium Lactate) 12 % Cre, 1 DOSE TOP BID, (Reported) APPLY TO LEGS/FEET Apixaban (Eliquis) 5 Mg Tablet, 5 MG PO BID, (Reported) Atenolol (Atenolol) 25 Mg Tablet, 25 MG PO BID, (Reported) Atorvastatin Calcium (Atorvastatin Calcium) 10 Mg Tab, 10 MG PO QHS, (Reported) Betamethasone Mala (Betamethasone Valerate) 45 Gm Oint, 1 DOSE TOP QHS, (Rep orted) USES ON LEGS FOR HOTSPOTS Calcitriol (Rocaltrol) 0.5 Mcg Capsule, 0.5 MCG PO DAILY, (Reported) Colchicine (Colchicine) 0.6 Mg Tab, 0.6 MG PO DAILY, (Reported) Cyclosporine (Cequa) 0.09% Droperette, 1 DROP OU BID, (Reported) Docusate Sodium (Docusate Sodium) 100 Mg Cap, 100 MG PO BID, (Reported) Duloxetine Hcl (Cymbalta) 60 Mg Capsule.dr, 60 MG PO BID, (Reported) Ergocalciferol (Vitamin D2) (Vitamin D2) 50,000 Units Cap, 50,000 UNITS PO QMONTH, (Reported) 1ST OF EVERY MONTH Fluticasone Furoate (Arnuity Ellipta) 100 Mcg Blst.w.dev, 1 PUFF INH QHS, (Reported) Insulin Degludec (Tresiba) 100 Unit/1 Ml Vial, 40 UNIT SC BID, (Reported) Insulin Lispro (Humalog Kwikpen U-200) 200 Unit/1 Ml Insuln.pen, 1 DOSE SC ACHS, (Reported) PATIENT SPECIFIC SLIDING SCALE Lactulose (Lactulose) 10 Gm/15 Ml Solution, 30 ML PO BID, (Reported) Levetiracetam (Levetiracetam ER) 500 Mg Lindsay, 500 MG PO BID, (Reported) Nortriptyline HCl (Nortriptyline HCl) 10 Mg Capsule, 10 MG PO BID, (Reported) Pantoprazole Sodium (Protonix) 40 Mg Granpkt.dr, 40 MG PO BID Polyethylene Glycol 3350 (Miralax) 119 Gm Powder, 17 GM PO BID, (Reported) Pregabalin (Lyrica) 150 Mg Capsule, 150 MG PO TID, (Reported) Spironolactone (Spironolactone) 25 Mg Tablet, 25 MG PO DAILY, (Reported) Sucralfate (Sucralfate) 1 Gm Tablet, 1 GM PO ACHS Torsemide (Torsemide) 100 Mg Tablet, 100 MG PO DAILY, (Reported) Scheduled PRN Acetaminophen (Tylenol Arthritis) 650 Mg Tablet.er, 650 MG PO QID PRN for PAIN / FEVER, (Reported) Albuterol Sulf (Albuterol Sulfate) 2.5 Mg/3 Ml Nebu, 2.5 MG INH QID PRN for SHORTNESS OF BREATH, (Reported) Albuterol Sulfate (Ventolin Hfa) 18 Gm Hfa.aer.ad, 2 PUFFS INH QID PRN for SHORTNESS OF BREATH, (Reported) Nystatin (Nystatin) 100,000 Unit/Gm Cre, 1 DOSE TOP BID PRN for RASH, (Reported) UNDER BREASTS AND GROIN AREA Ondansetron HCl (Ondansetron HCl) 4 Mg Tab, 4 MG PO QID PRN for NAUSEA OR VOMITING, (Reported) Miscellaneous Medications [Patient Comment] , (Reported) MED REC COMPLETED VIA PREVIOUS DISCHARGE PAPERWORK (04/02/2020) Allergies Coded Allergies: Cephalosporins (Verified Allergy, Intermediate, hives, 07/09/19) Penicillins (Verified Allergy, Intermediate, hives, 07/09/19) Sulfa (Sulfonamide Antibiotics) (Verified Allergy, Intermediate, hives, 07/09/19) chlorpromazine (Verified Allergy, Intermediate, hiives, 07/09/19) loratadine (Verified Allergy, Intermediate, hives, 07/09/19) pentazocine (Verified Allergy, Intermediate, hives, 07/09/19) TAPE (Verified Allergy, Unknown, band-aids, 07/09/19) methadone (Verified Allergy, Unknown, 07/09/19) HAS HAD DILAUDID AND DEMEROL IN THE PAST NUSRAT GUERRERO MD Apr 14, 2020 10:29
[2020-04-14 11:56] LABS: HEMOGLOBIN A1c 8.1 %
[2020-04-14 12:01] LABS: HEMATOCRIT 38.1 % (36.0-47.0); HEMOGLOBIN 11.1 g/dl (12.0-15.5)
== END 2020-04-14 12:21 | disposition home or self-care (01) | DRG 811 ==
LOC: M ED 17:32 → M ED INP 04-10 01:00 → M MSPAV 04-10 02:58
PROVIDERS: ADMIT Family Medicine; ATTEND General Practice
PROC: 30233N1 Transfusion of Nonautologous Red Blood Cells into Peripheral Vein, Percutaneous Approach (ICD-10-PCS; principal; 2020-04-10)
DX: D62 Acute posthemorrhagic anemia (principal); J96.02 Acute respiratory failure with hypercapnia; G93.41 Metabolic encephalopathy; I13.0 Hypertensive heart and chronic kidney disease with heart failure and stage 1 through stage 4 chronic kidney disease, or unspecified chronic kidney disease; I50.32 Chronic diastolic (congestive) heart failure; I48.20 Chronic atrial fibrillation, unspecified; J96.10 Chronic respiratory failure, unspecified whether with hypoxia or hypercapnia; E66.2 Morbid (severe) obesity with alveolar hypoventilation; E11.42 Type 2 diabetes mellitus with diabetic polyneuropathy; N18.30 Chronic kidney disease, stage 3 unspecified; I27.20 Pulmonary hypertension, unspecified; Z86.73 Personal history of transient ischemic attack (TIA), and cerebral infarction without residual deficits; Z79.01 Long term (current) use of anticoagulants; Z68.37 Body mass index [BMI] 37.0-37.9, adult; J44.9 Chronic obstructive pulmonary disease, unspecified; Z86.711 Personal history of pulmonary embolism; Z86.718 Personal history of other venous thrombosis and embolism; Z99.81 Dependence on supplemental oxygen; M10.9 Gout, unspecified; K21.9 Gastro-esophageal reflux disease without esophagitis; G25.81 Restless legs syndrome; G47.33 Obstructive sleep apnea (adult) (pediatric); R31.9 Hematuria, unspecified; Z88.0 Allergy status to penicillin; Z88.2 Allergy status to sulfonamides; Z88.8 Allergy status to other drugs, medicaments and biological substances

== ENCOUNTER → 2020-04-09 | Outpatient (REF) | payer MEDICARE, MEDICAID ==
[~2020-04-09] MED LIST changes: +ACET1TAB55 PO; +ACET650T15 PO; +TRES100I SC
[2020-04-09 17:29] LABS: BASO # 0.1 10^3/uL (0.0-0.2); BASO % 1.4 % (0.0-1.0); EOS # 0.1 10^3/uL (0.0-0.5); EOS % 1.7 % (0.0-3.0); HEMATOCRIT 28.3 % (36.0-47.0); HEMOGLOBIN 7.8 g/dl (12.0-15.5); LYMPH # 1.7 10^3/uL (1.5-5.0); LYMPH % 25.2 % (24.0-44.0); MEAN CORPUSCULAR HEMOGLOBIN 23.7 pg (27.0-33.0); MEAN CORPUSCULAR HGB CONC 27.6 g/dl (32.0-36.5); MONO # 0.9 10^3/uL (0.0-0.8); MONO % 13.9 % (0.0-5.0); NEUTROPHILS # 3.8 10^3/uL (1.5-8.5); NEUTROPHILS % 56.7 % (36.0-66.0); PLATELET COUNT, AUTOMATED 188 10^3/uL (150-450); RED BLOOD COUNT 3.29 10^6/uL (4.00-5.40); WHITE BLOOD COUNT 6.6 10^3/uL (4.0-10.0)
[2020-04-09 18:03] LABS: CREATININE FOR GFR 1.9 MG/DL (0.55-1.30); GLOMERULAR FILTRATION RATE 27.4 (>39); POTASSIUM SERUM 4.1 MEQ/L (3.5-5.1)
== END ==
LOC: M LAB REF 16:43
PROVIDERS: ATTEND Registered Nurse
DX: D50.9 Iron deficiency anemia, unspecified (principal); R06.02 Shortness of breath; I13.0 Hypertensive heart and chronic kidney disease with heart failure and stage 1 through stage 4 chronic kidney disease, or unspecified chronic kidney disease; E11.42 Type 2 diabetes mellitus with diabetic polyneuropathy

== ENCOUNTER 2020-05-09 20:24 | Inpatient (IN) | payer MEDICARE, MEDICAID ==
[~2020-05-09] VITALS: Ht 170.2 cm; Wt 100.0 kg
[~2020-05-09 20:24] MED LIST changes: +PROTPAK PO; -SODIUM CHLORIDE 0.9% INJ 10 ML SYR IV SCH; +SUCR1TA PO; +TRES100I SC
[2020-05-09] MEDS ORDERED: DOXY100C PO (21:35)
--- NOTE | 2020-05-09 21:43 | REPVR ---
PROCEDURE INFORMATION: Exam: XR Right Foot Exam date and time: 05/09/2020 9:24 PM Age: 74 years old Clinical indication: Other: Trauma TECHNIQUE: Imaging protocol: XR Right foot. Views: 3 or more views. COMPARISON: CR Foot, complete 04/12/2018 6:25 PM FINDINGS: Bones/joints: Osteopenia. Fracture of the ankle. No foot fractures are identified. Soft tissues: Normal. IMPRESSION: 1. Fracture of the ankle with tibiotalar subluxation. 2. Osteopenia. 3. Otherwise negative right foot. Electronically signed by: Jose Hernandez On 05/09/2020 21:43:11 PM
--- NOTE | 2020-05-09 21:45 | REPVR ---
PROCEDURE INFORMATION: Exam: XR Right Tibia and Fibula Exam date and time: 05/09/2020 9:24 PM Age: 74 years old Clinical indication: Other: Trauma TECHNIQUE: Imaging protocol: XR Right tibia and fibula. Views: 2 views. COMPARISON: MRI TIBIA WITHOUT CONTRAST 11/18/2017 3:09 PM FINDINGS: Bones/joints: Osteopenia. Fracture of the distal fibula with lateral displacement of the distal fragment the width of the bone. Fracture of the medial malleolus with displacement. Fracture of the posterior distal tibia with tibiotalar dislocation posteriorly and medially. Soft tissues: Within normal limits. IMPRESSION: 1. Osteopenia. 2. Trimalleolar fracture of the ankle with dislocation. Electronically signed by: Jose Hernandez On 05/09/2020 21:45:02 PM
--- NOTE | 2020-05-09 21:46 | REPVR ---
PROCEDURE INFORMATION: Exam: XR Right Ankle Exam date and time: 05/09/2020 9:24 PM Age: 74 years old Clinical indication: Other: Trauma TECHNIQUE: Imaging protocol: XR Right ankle. Views: 3 or more views. COMPARISON: CT LOWER EXT WITHOUT CONTRAST 11/23/2016 11:07 AM FINDINGS: Bones/joints: Osteopenia. Fracture of the distal fibula. The distal fragment demonstrates lateral displacement the width of the bone. Displaced fracture of the medial malleolus and fracture of the posterior distal tibia. There is posterior and lateral dislocation of the talus relative to the distal tibia. Soft tissues: Somewhat obscured by overlying artifact. IMPRESSION: 1. Trimalleolar fracture of the ankle with posterior and lateral dislocation of the talus. 2. Diffuse osteopenia. Electronically signed by: Jose Hernandez On 05/09/2020 21:46:46 PM
[2020-05-09] MEDS ORDERED: ONDANSETRON 4MG/2ML VIAL IV ONE (22:45)
[2020-05-09] MEDS ORDERED: MORPHINE 10 MG/ML 1ML VIAL (J2270) IV ONE (22:45)
[2020-05-09 23:07] LABS: BASO % 0.3 % (0.0-1.0); EOS # 0.2 10^3/uL (0.0-0.5); EOS % 2.9 % (0.0-3.0); HEMATOCRIT 23.5 % (36.0-47.0); LYMPH # 0.4 10^3/uL (1.5-5.0); LYMPH % 6.2 % (24.0-44.0); MEAN CORPUSCULAR HEMOGLOBIN 22.5 pg (27.0-33.0); MEAN CORPUSCULAR HGB CONC 26.8 g/dl (32.0-36.5); MEAN CORPUSCULAR VOLUME 83.9 fl (80.0-96.0); MONO # 0.7 10^3/uL (0.0-0.8); MONO % 10.9 % (0.0-5.0); NEUTROPHILS # 4.7 10^3/uL (1.5-8.5); NEUTROPHILS % 78.7 % (36.0-66.0); PLATELET COUNT, AUTOMATED 114 10^3/uL (150-450)
[2020-05-09 23:11] LABS: HEMOGLOBIN 6.3 g/dl (12.0-15.5)
--- NOTE | 2020-05-09 23:21 | REPVR ---
PROCEDURE INFORMATION: Exam: XR Chest, 1 View Exam date and time: 05/09/2020 11:09 PM Age: 74 years old Clinical indication: Other: Pre op; Additional info: Preop TECHNIQUE: Imaging protocol: XR of the chest Views: 1 view. COMPARISON: CR PORTABLE CHEST X-RAY 04/11/2020 6:35 PM FINDINGS: Tubes, catheters and devices: There is a right Port-A-Cath which is unchanged. Lungs: There are no interval infiltrates. There is decreased inflation of the lungs. Slight left base clearing with better delineation of the left hemidiaphragm. Pleural spaces: Unremarkable. No pleural effusion. No pneumothorax. Heart/Mediastinum: The heart and mediastinum are unchanged. Bones/joints: Unremarkable. Soft tissues: Surgical clips are noted about the upper abdomen and left chest. Other findings: Slight rotation to the right. IMPRESSION: 1. Slight left base clearing since 04/11/2020. 2. Otherwise stable poor inspiratory chest. No acute process is identified. Electronically signed by: Jose Hernandez On 05/09/2020 23:20:46 PM
[2020-05-09 23:39] LABS: ALBUMIN 2.6 GM/DL (3.2-5.2); ALT/SGPT 27 U/L (12-78); BILIRUBIN,TOTAL 0.4 MG/DL (0.2-1.0); BLOOD UREA NITROGEN 37 MG/DL (7-18); CALCIUM LEVEL 8.1 MG/DL (8.8-10.2); CARBON DIOXIDE LEVEL 31 MEQ/L (21-32); CHLORIDE LEVEL 101 MEQ/L (98-107); CREATININE FOR GFR 1.58 MG/DL (0.55-1.30); GLOMERULAR FILTRATION RATE 33.9 (>39); GLUCOSE, FASTING 177 MG/DL (70-100); POTASSIUM SERUM 4.4 MEQ/L (3.5-5.1); SODIUM LEVEL 139 MEQ/L (136-145); TOTAL PROTEIN 5.2 GM/DL (6.4-8.2); TROPONIN I < 0.02 NG/ML (< 0.10)
[2020-05-09 23:41] LABS: RSV AMPLIFICATION NEGATIVE (NEGATIVE)
[2020-05-10] VITALS (15 sets, daily range): BP systolic 114–154; BP diastolic 54–78
--- NOTE | 2020-05-10 01:16 | REPVR ---
PROCEDURE INFORMATION: Exam: CT Right Lower Extremity Without Contrast, Ankle Exam date and time: 05/10/2020 12:41 AM Age: 74 years old Clinical indication: Pain; Ankle; Right; Additional info: Right ankle FX post reduction TECHNIQUE: Imaging protocol: CT of the Right lower extremity without contrast was performed. Exam focused on the ankle. Radiation optimization: All CT scans at this facility use at least one of these dose optimization techniques: automated exposure control; mA and/or kV adjustment per patient size (includes targeted exams where dose is matched to clinical indication); or iterative reconstruction. COMPARISON: CT LOWER EXT WITHOUT CONTRAST 11/23/2016 11:07 AM FINDINGS: Bones/joints: Comminuted fracture of the distal fibula with mild displacement of fragments. Comminuted fractures of the base of the medial malleolus with slight displacement of fragments. Mildly displaced fracture of the posterior distal tibia with numerous small fracture fragments. Multiple punctate fracture fragments are noted within the joint space as loose bodies. Soft tissues: Subcutaneous infiltration confluence about the ankle and dorsum of the foot. IMPRESSION: 1. Comminuted trimalleolar fractures with mild displacement of fragments. There are several punctate small fracture fragments which are noted within the articular space as loose bodies. No dislocation or significant subluxation. 2. Subcutaneous infiltration and confluence about the ankle and dorsum of the foot. Electronically signed by: Jose Hernandez On 05/10/2020 01:16:17 AM
[2020-05-10] MEDS ORDERED: oxyCODONE 5MG TAB PO ONE (05:00)
--- NOTE | 2020-05-10 06:46 | ECGEPIP ---
[facility] - ED Test Date: 2020-05-09 Pat Name: SHIVANI PAYNE Department: Room: - Gender: Female Diploma Dental Assistant: : [id number] Requested By: Jonathon Riddle Order Number: [id number] Reading MD: Wyatt Rivas Measurements Intervals [place] Rate: 83 P: 64 AR: 224 QRS: 13 QRSD: 105 T: 60 QT: 395 QTc: 465 Interpretive Statements SINUS RHYTHM WITH FIRST DEGREE AV BLOCK WITH OCCASIONAL SUPRAVENTRICULAR PREMATURE COMPLEXES POOR R WAVE PROGRESSION NSTTW ABNORMALITY(S) Electronically Signed on 05-10-2020 6:46:27 EST by Wyatt Rivas
[2020-05-10] MEDS ORDERED: REST0.057 OU (07:42)
[2020-05-10] MEDS: FLUTICASONE HFA 110 MCG 12 GM INHALER (FLOVENT) INH SCH ×2 (08:00→20:00)
[2020-05-10] MEDS ORDERED: PANT40TA29 PO (08:04)
[2020-05-10] MEDS ORDERED: SUCR1TA PO (08:04)
[2020-05-10] MEDS ORDERED: ARNU1INH INH (08:04)
[2020-05-10] MEDS: TORSEMIDE 100 MG TAB PO SCH (09:00)
[2020-05-10] MEDS: atenoloL 25 MG TAB PO SCH ×2 (09:00→21:37)
[2020-05-10] MEDS: levETIRAcetam **XR** 500 MG TABLET PO SCH ×2 (09:00→21:37)
[2020-05-10] MEDS: allopurinoL 300 MG TAB PO SCH (09:00)
[2020-05-10] MEDS: PANTOPRAZOLE 40MG TAB (PROTONIX) PO SCH ×2 (09:00→21:38)
[2020-05-10] MEDS ORDERED: APIXABAN 5 MG TAB (ELIQUIS) PO SCH (09:00)
[2020-05-10] MEDS: SPIRONOLACTONE 25 MG TAB PO SCH (09:00)
[2020-05-10] MEDS: DOXYCYCLINE HYCLATE 100MG TABLET PO SCH ×2 (09:00→21:37)
[2020-05-10] MEDS: MIRALAX *UNIT DOSE* 17GM PACKET PO SCH ×2 (09:00→21:39)
[2020-05-10] MEDS: LEVEMIR (INSULIN DETEMIR) 1 UNITS/0.01ML SC SCH ×2 (09:00→21:37)
[2020-05-10] MEDS: DULoxetine 30 MG CAP (CYMBALTA) PO SCH ×2 (09:00→21:36)
[2020-05-10] MEDS: DOCUSATE SODIUM 100MG CAPSULE PO SCH ×2 (09:00→21:38)
[2020-05-10] MEDS ORDERED: ALBUTEROL SULFATE 2.5 MG/0.5 ML INH NEB SOLN INH PRN (10:00)
[2020-05-10] MEDS ORDERED: ALBUTEROL 90 MCG/ACT 8GM HFA INHALER INH PRN (10:00)
[2020-05-10] MEDS ORDERED: ONDANSETRON 4 MG TAB PO PRN (10:00)
[2020-05-10] MEDS ORDERED: ACETAMINOPHEN 650MG ER TAB (TYLENOL ARTHRITIS) PO PRN (10:00)
[2020-05-10] MEDS ORDERED: NYSTATIN CREAM 15 GM TOP PRN (10:00)
[2020-05-10 10:42] LABS: HEMATOCRIT 26.6 % (36.0-47.0); HEMOGLOBIN 7.3 g/dl (12.0-15.5); MEAN CORPUSCULAR HGB CONC 27.4 g/dl (32.0-36.5); MEAN CORPUSCULAR VOLUME 83.9 fl (80.0-96.0); PLATELET COUNT, AUTOMATED 108 10^3/uL (150-450); RED BLOOD COUNT 3.17 10^6/uL (4.00-5.40); WHITE BLOOD COUNT 7.3 10^3/uL (4.0-10.0)
[2020-05-10 11:11] LABS: ALBUMIN 2.6 GM/DL (3.2-5.2); BILIRUBIN,TOTAL 0.6 MG/DL (0.2-1.0); CALCIUM LEVEL 8.6 MG/DL (8.8-10.2); CREATININE FOR GFR 1.51 MG/DL (0.55-1.30); GLOMERULAR FILTRATION RATE 35.8 (>39); POTASSIUM SERUM 4.3 MEQ/L (3.5-5.1)
[2020-05-10 11:13] LABS: ABG BASE EXCESS 6.1 (-2.0-2.0); ABG HCO3 32.7 MEQ/L (22.0-26.0); ABG PARTIAL PRESSURE O2 74.7 mmHg (75.0-100.0); ABG TOTAL CO2 34.5 MEQ/L (23.0-31.0); ABG pH (ARTERIAL) 7.351 UNITS (7.350-7.450)
[2020-05-10 11:14] LABS: ABG PARTIAL PRESSURE CO2 60.4 mmHg (35.0-45.0)
[2020-05-10] MEDS ORDERED: DEXTROSE 50% 50 ML SYRINGE IV PRN (11:15)
[2020-05-10] MEDS ORDERED: GLUCOSE 4GM CHEW TABLET PO PRN (11:15)
[2020-05-10] MEDS ORDERED: GLUCAGON INJ 1MG VIAL SC PRN (11:15)
--- NOTE | 2020-05-10 11:38 | HPEPDOC ---
[facility] Medical History & Physical Date of Admission May 10, 2020 Date of Service: May 10, 2020 Primary Care Physician: Jr Villalobos Collins Attending Physician: FAWAD SHEPPARD MD History and Physical CHIEF COMPLAINT: fall HISTORY OF PRESENT ILLNESS: Patient is a 74-year-old female brought in by EMS following a fall at home on 05/09 at 1700. The patient is a poor historian however it does seem as though was a mechanical fall while she was walking to the bathroom. She notes no loss of consciousness, denies hitting her head. On speaking with the he notes that he was taking her to the bathroom she was standing up with her hands on the bars and her legs gave out from underneath her and one became trapped in between the toilet and the wall. The son and her were unable to lift her out and once they finally did with help of the neighbor EMS was called. In the emergency department she was found to have a right ankle fracture which was reduced and splinted by orthopedic surgery with the intention of discharging her home. However her family was unable to care for her at home, the is requesting a hospice consult and for her to go to a hospice house on Tuesday, and so she will be admitted to the hospital. While in the ED she was also found to have a hemoglobin of 6.8 and received 1 unit of PRBCs. On speaking with the patient once she arrived to the floor however patient knew nothing of a hospice at home that she has been receiving and on extensive questioning regarding her CODE STATUS she expressed a wish to remain full code. PAST MEDICAL HISTORY: History of recurrent GI bleeds/ Chronic anemia Iron deficiency anemia Heart failure preserved ejection fraction COPD/chronic hypoxic and hypercarbic respiratory failure on 2L O2 at home Secondary pulmonary hypertension Insulin-dependent diabetes mellitus CKD stage III HTN History of right parietal CVA Cognitive Impairment/Dementia. History of multiple DVT/IVC filter Chronic atrial fibrillation not on AC. 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 Never smoker. No alcohol or illicit drug use. FAMILY HISTORY: CAD COPD DM Psychiatric disorders ALLERGIES: Please see below. REVIEW OF SYSTEMS: Unobtainable as patient did not have the concentration to respond to the questions. She has a reported history of a cough, sob, and weakness HOME MEDICATIONS: Please see below. PHYSICAL EXAMINATION: VITAL SIGNS: See below GENERAL APPEARANCE: Tired-appearing female lying on her back in bed in no acute distress HEENT: NC, AT, EOMI, no scleral icterus, moist mucous membranes, no pharyngeal erythema. CARDIOVASCULAR: RRR, normal S1-S2. No murmurs, gallops, rubs. LUNGS: Diminished breath sounds bilaterally, no wheezes, crackles, or rhonchi. ABDOMEN: Soft, nontender, moderately distended, bowel sounds present. No masses or ecchymosis. No CVA tenderness. EXTREMITIES: 1+ pitting edema in bilateral lower extremities. Right lower extremity from knee down is in splint. NEUROLOGICAL: GCS of 15, rousable but very sleepy and easily distracted, oriented to person, place, situation but not year or month. No focal or sensory deficits. CN II-XII intact. Poor effort on strength testing. LABORATORY DATA: See below. IMAGIN05/09/20 right tibia/fibula x-ray: 1. Osteopenia. 2. Trimalleolar fracture of the ankle with dislocation. 05/09/20 right foot x-ray: 1. Fracture of the ankle with tibiotalar subluxation. 2. Osteopenia. 3. Otherwise negative right foot. 05/09/20 right ankle x-ray: 1. Trimalleolar fracture of the ankle with posterior and lateral dislocation of the talus. 2. Diffuse osteopenia. 05/09/20 chest x-ray: 1. Slight left base clearing since 04/11/2020. 2. Otherwise stable poor inspiratory chest. No acute process is identified 05/10/[address]: 1. Comminuted trimalleolar fractures with mild displacement of fragments. There are several punctate small fracture fragments which are noted within the articular space as loose bodies. No dislocation or significant subluxation. 2. Subcutaneous infiltration and confluence about the ankle and dorsum of the foot. MICROBIOLOGY: Please see below. Assessment: 74-year-old female who presented to [facility] emergency department and found to have a right ankle fracture following a witnessed mechanical fall, underwent bedside reduction and splinting by orthopedic surgery and was subsequently admitted family requesting outpatient hospice as they are now unable to care for her properly at home. Plan: #. Mild encephalopathy with underlying cognitive impairment from prior CVA. Patient has a history of metabolic and respiratory encephalopathy sometimes due to hypercapnic respiratory failure, patient is also on lactulose, and patient is also anemic. So we will obtain additional CBC transfusion as needed, ammonia level, ABG and restart her home BiPAP settings per her last admission. Furthermore given her stage IV CKD we will hold her Lyrica until her mental status improves. Regarding her CODE STATUS I feel that her change today may be a representation of her encephalopathy as her remained fairly adamant that she go to hospice after the weekend was over. However the patient is alert oriented enough that I believe it is correct to honor her wishes to remain a full code and to pursue treatment options at this time. 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 -Yesterday her PCP started her on doxycycline for possible pneumonia, however her chest x-ray is unremarkable, her white blood cell count is unremarkable, and I suspect that her shortness of breath and generalized weakness (the symptoms she was complaining of) are likely from her anemia. We'll continue to monitor this and if need be will start further antibiotic therapy and draw blood cultu res. For the time being we will continue the doxycycline. #. Acute on chronic hypercarbic respiratory failure -Starting patients home bilevel settings (14/6 w/ 2L of oxygen) #. Symptomatic anemia -Holding Eliquis, transfusing additional 2 units PRBCs as hemoglobin is less than 8. - was adamant about not pursuing further colonoscopies and that they have tried doing a colonoscopy in the past however due to poor prep and inability to get adequate prep they ultimately were unable to find the source of the GI bleed. Last colonoscopy was in August [address] Hoskins with again, poor prep, hemorrhoids, and melanotic stool. #. Right ankle fracture -Splinted and reduce last night per orthopedic surgery -Follow-up as needed outpatient for possible casting -Starting tramadol every 8 hours as needed for pain, and Percocet for breakthrough pain. #. Chronic kidney disease -Baseline Cr ~1.4 #. CHF with preserved ejection fraction -(last Echo 04/201920 grade 2 diastolic dysfunction, EF 55-60%, Pulm A pressure 30-40mmHg -Continue torsemide, aldactone, #. COPD -Continue home albuterol -Continue home fluticasone #. Chronic afib -Continue atenolol, currently rate controlled -Will hold AC for the time being in light of the GI bleed. #. Type 2 diabetes w/ neuropathy -Sliding scale insulin, starting Levemir 20 units twice a day, will increase back to home dosage depending on results of blood glucoses during the daytime. -Holding lyrica for AMS in setting of CKD #. Chronic pain from discectomies -Continue cymbalta #. Seizure disorder unspecified Continue Keppra #. Hx of constipation -No hx of liver disease on imaging, highest elevated ammonia level in the past was 35 - continue home lactulose, miralax, colace #.GERD -Continue carafate, protonix #. Morbid obesity -Complicating care #. Hx of DVTs/Pe -IVC filter -Holding AC in setting of GI bleed DVT prophylaxis: held for GI bleed. Disposition: Pending improvement in patient's mental status, family is interested in Hospice house as they're unable to care for her at home anymore however when questioned today patient answered yes to wanting to continue with being full code. Vital Signs Vital Signs Date Time Temp Pulse Resp B/P (MAP) Pulse Ox O2 Delivery O2 Flow Rate FiO2 05/10/20 09:16 86 18 98 Nasal Cannula 2.0 05/10/20 09:15 126/60 (82) 05/10/20 05:15 98.3 Laboratory Data Labs 24H Laboratory Tests 2 05/09/20 22:58: Immature Granulocyte % (Auto) 1.0, Neutrophils (%) (Auto) 78.7H, Lymphocytes (%) (Auto) 6.2L, Monocytes (%) (Auto) 10.9H, Eosinophils (%) (Auto) 2.9, Basophils (%) (Auto) 0.3, Neutrophils # (Auto) 4.7, Lymphocytes # (Auto) 0.4L, Monocytes # (Auto) 0.7, Eosinophils # (Auto) 0.2, Basophils # (Auto) 0.0, Nucleated Red Blood Cells % (auto) 0.8H, Anion Gap 7L, Glomerular Filtration Rate 33.9L, Calcium Level 8.1L, Total Bilirubin 0.4, Aspartate Amino Transf (AST/SGOT) 17, Alanine Aminotransferase (ALT/SGPT) 27, Alkaline Phosphatase 73, Troponin I < 0.02, Total Protein 5.2L, Albumin 2.6L, Albumin/Globulin Ratio 1.0L 05/09/20 22:59: Coronavirus (COVID-19)(PCR) NEGATIVE, Influenza Type A (RT-PCR) NEGATIVE, Influenza Type B (RT-PCR) NEGATIVE, Respiratory Syncytial Virus (PCR) NEGATIVE 05/10/20 09:29: Bedside Glucose (Misc Panel) 170H CBC/BMP Laboratory Tests 05/09/20 22:58 Home Medications Scheduled Allopurinol (Zyloprim) 300 Mg Tab, 300 MG PO DAILY Ammonium Lactate (Ammonium Lactate) 12 % Cre, 1 DOSE TOP BID APPLY TO LEGS/FEET Apixaban (Eliquis) 5 Mg Tablet, 5 MG PO BID Atenolol (Atenolol) 25 Mg Tablet, 25 MG PO BID Cyclosporine (Restasis Multidose) 5.5 Ml Drops, 1 DROP OU BID Docusate Sodium (Docusate Sodium) 100 Mg Cap, 100 MG PO BID Doxycycline Hyclate (Doxycycline Hyclate) 100 Mg Capsule, 100 MG PO BID Duloxetine Hcl (Cymbalta) 60 Mg Capsule.dr, 60 MG PO BID Fluticasone Furoate (Arnuity Ellipta) 100 Mcg Blst.w.dev, 1 PUFF INH QHS Insulin Degludec (Tresiba) 100 Unit/1 Ml Vial, 40 UNIT SC BID Insulin Lispro (Humalog Kwikpen U-200) 200 Unit/1 Ml Insuln.pen, 1 DOSE SC ACHS PATIENT SPECIFIC SLIDING SCALE Lactulose (Lactulose) 10 Gm/15 Ml Solution, 30 ML PO BID Levetiracetam (Levetiracetam ER) 500 Mg Lindsay, 500 MG PO BID Nortriptyline HCl (Nortriptyline HCl) 10 Mg Capsule, 10 MG PO BID Pantoprazole Sodium (Pantoprazole Sodium) 40 Mg Tablet.dr, 40 MG PO BID Polyethylene Glycol 3350 (Miralax) 119 Gm Powder, 17 GM PO BID Pregabalin (Lyrica) 150 Mg Capsule, 150 MG PO TID Spironolactone (Spironolactone) 25 Mg Tablet, 25 MG PO DAILY Sucralfate (Sucralfate) 1 Gm Tablet, 1 GM PO ACHS Torsemide (Torsemide) 100 Mg Tablet, 100 MG PO DAILY Scheduled PRN Acetaminophen (Tylenol Arthritis) 650 Mg Tablet.er, 650 MG PO QID PRN for PAIN / FEVER Albuterol Sulf (Albuterol Sulfate) 2.5 Mg/3 Ml Nebu, 2.5 MG INH QID PRN for SHORTNESS OF BREATH Albuterol Sulfate (Ventolin Hfa) 18 Gm Hfa.aer.ad, 2 PUFFS INH QID PRN for SHORTNESS OF BREATH Nystatin (Nystatin) 100,000 Unit/Gm Cre, 1 DOSE TOP BID PRN for RASH UNDER BREASTS AND GROIN AREA Ondansetron HCl (Ondansetron HCl) 4 Mg Tab, 4 MG PO QID PRN for NAUSEA OR VOMITING Allergies Coded Allergies: Cephalosporins (Verified Allergy, Intermediate, hives, 07/09/19) Penicillins (Verified Allergy, Intermediate, hives, 07/09/19) Sulfa (Sulfonamide Antibiotics) (Verified Allergy, Intermediate, hives, 07/09/19) chlorpromazine (Verified Allergy, Intermediate, hiives, 07/09/19) loratadine (Verified Allergy, Intermediate, hives, 07/09/19) pentazocine (Verified Allergy, Intermediate, hives, 07/09/19) TAPE (Verified Allergy, Unknown, band-aids, 07/09/19) methadone (Verified Allergy, Unknown, 07/09/19) HAS HAD DILAUDID AND DEMEROL IN THE PAST GME ATTESTATION GME ATTESTATION My faculty preceptor for this patient encounter was physically present during the encounter and was fully available. All aspects of the patient interview, examination, medical decision making process, and medical care plan development were reviewed and approved by the faculty preceptor. The faculty preceptor is aware and concurs with the plan as stated in the body of this note and will attest to such by his/her cosignature. ATTENDING NOTE I performed a history and physical examination of the patient and discussed the management with the resident. I have reviewed the resident's note ad agree with the documented findings and plan of care. Patient is somnolent and confused possibly due to narcotics int he ED and at home could not initially provide her Code status. said she was on Hospice. We called Hospice to clarify whether she was on Hospice care or not as the said she was under hospice care and patient did not seem to know any thing about it. Apparently patient has been under [facility] for 2 weeks. She has been confused at home as per hospice nurse. She had a mechanical fall and injured her ankle. wanted that to be looked into and fixed so they revoked Hospice on 05/09/20 and brought her to the ED. can no longer take care of her at home and cannot take her back home. He wanted the patient to get blood transfusions and management for her ankle fracture but no endoscopy or colonoscopy. He wanted her to go back to [facility] and hospice status on Tuesday and then go to either Hospice house or NH in [facility] status. Later in the day patient was more awake. She has been on BIPAP with home settings . Her ABG is at baseline. Patient when questioned about advanced directives again indicated that she wanted to be resuscitated so at present she remains Full Code. However she has history of CVA and Cognitive impairment so i am doubtful whether she is fully able to comprehend her medical issues and poor overall prognosis. This needs to be discussed again when she is fully alert and awake with patient and and determine her Code status . For now she remains full code. SAPNA MERCADO DO May 10, 2020 09:53 FAWAD SHEPPARD MD May 10, 2020 21:55
[2020-05-10] MEDS: SUCRALFATE 1 GM TAB PO SCH ×3 (11:58→21:37)
[2020-05-10] MEDS ORDERED: HumaLOG INSULIN (NovoLOG) PER UNIT SC SCH ×2 (12:00→21:00)
[2020-05-10] MEDS: LACTULOSE 20 GM/30 ML SYRUP UD PO SCH ×2 (12:03→21:36)
[2020-05-10] MEDS: LACTIC ACID 12% LOTION 225 GM BTL TOP SCH ×2 (12:03→21:39)
[2020-05-10] MEDS: PREGABALIN 75 MG CAP(LYRICA) PO SCH ×2 (14:00→21:37)
[2020-05-10] MEDS ORDERED: FUROSEMIDE 40MG/4ML VIAL (J1940) IV ONE (14:00)
[2020-05-10 14:24] LABS: ABG BASE EXCESS 4.1 (-2.0-2.0); ABG HCO3 29.9 MEQ/L (22.0-26.0); ABG O2 SATURATION 92.2 % (95.0-99.0); ABG PARTIAL PRESSURE O2 62.5 mmHg (75.0-100.0); ABG STANDARD HCO3 28.1 MEQ/L (22.0-26.0); ABG TOTAL CO2 31.5 MEQ/L (23.0-31.0); ABG pH (ARTERIAL) 7.378 UNITS (7.350-7.450)
[2020-05-10 15:32] LABS: INR 1.23; PROTHROMBIN TIME 15.8 SECONDS (12.5-14.3)
[2020-05-10 15:33] LABS: PARTIAL THROMBOPLASTIN TIME 28.1 SECONDS (24.2-38.5)
[2020-05-10] MEDS: HumaLOG INSULIN (NovoLOG) PER UNIT SC SCH ×2 (17:05→21:00)
[2020-05-10 20:17] LABS: HEMATOCRIT 32.8 % (36.0-47.0); MEAN CORPUSCULAR HEMOGLOBIN 24.4 pg (27.0-33.0); MEAN CORPUSCULAR VOLUME 84.3 fl (80.0-96.0); RED BLOOD COUNT 3.89 10^6/uL (4.00-5.40); WHITE BLOOD COUNT 8.9 10^3/uL (4.0-10.0)
[2020-05-10 20:26] LABS: PLATELET COUNT, AUTOMATED 97 10^3/uL (150-450)
[2020-05-10 20:27] LABS: HEMOGLOBIN 9.5 g/dl (12.0-15.5)
[2020-05-10] MEDS ORDERED: ENTER DRUG NAME HERE (PATIENT'S OWN MED) OU SCH (21:00)
--- NOTE | 2020-05-10 21:15 | ER ---
ER CONSULTATION <#######################>Dem[employer] DATE: 05/09/2020 HISTORY OF PRESENT ILLNESS: A 74-year-old female with a complicated past medical history who presented with a closed right trimalleolar ankle fracture. The patient presented after falling off of her wheelchair. The patient is wheelchair bound. She does not ambulate at home and does not stand at home. She was previously on Hospice, however she was removed from Hospice secondary to her 's wishes. The patient presented with right ankle pain to the [facility] for further evaluation and treatment. Orthopedic Surgery was consulted for assistance with the right ankle reduction and Dr. Beal, myself, presented for the right ankle reduction. PAST MEDICAL HISTORY: The patient's past medical history is includes: 1. Hepatitis C. 2. Hyperglycemia. 3. Obstructive lung disease. 4. Acute renal failure superimposed on stage 3 chronic kidney disease. 5. Congestive heart failure. 6. Dyspnea. 7. Anemia. 8. Decreased thyroid. 9. Stimulated hormone. 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 11. Obstructive sleep apnea. 12. COPD exacerbation. 13. Acute kidney injury. 14. Congestive heart failure. 15. Diabetes. 16. Seizure disorder. 17. Obesity. 18. Hypertension. 19. Hypothyroidism. 20. Chronic kidney disease. 21. Paralyzed hemidiaphragm. 22. Gout. 23. Asthma. 24. Restrictive airway disease. 25. Chronic respiratory failure with hypoxia. 26. Hypokalemia. 27. Acute kidney disease. 28. Pneumonia. 29. Metabolic encephalopathy. PAST SURGICAL HISTORY: The patient's past surgical history is significant for total hip arthroplasty, unknown hip. SOCIAL HISTORY: Nondrinker, nonsmoker. No IV drug use. ALLERGIES: 1. Cephalosporins. 2. Penicillin. 3. Sulfonamide antibiotics. 4. Tape. 5. Chlorpromazine. 6. Loratadine. 7. Meperidine. 8. Pentazocine. CURRENT MEDICATIONS: Please see E.R. note. PHYSICAL EXAMINATION: GENERAL APPEARANCE: The patient is alert to person, time and place. EXTREMITIES: Right lower extremity, the patient has an obvious deformity about the right knee, ankle with eversion deformity as well as posterior subluxation of the foot relative to the tibia. The patient is otherwise neurovascularly intact to the right lower extremity. She did have a fracture blister on the medial aspect of her right ankle. She is otherwise neurovascularly intact. She had 5/5 motor strength in the EHL, FHL, tibialis anterior, gastroceles, and perineal musculature complex. She had sufficient intact to light touch to the deep and superficial perineal saphenous and tibial nerve distributions. She had 2+ dorsalis pedis and posterior arterial pulse. And she had brisk capillary refill to the digits of her right foot. IMAGING: Pre-erection radiographs demonstrate a trimalleolar fracture with the talus, posterior and lateral to the distal tibia. She had fracture of the distal fibula and posterior malleolus and the medial malleolus. Post reduction radiographs demonstrate talus which is reduced within the mortis of the right ankle on A.P. and lateral views. Postoperative CT demonstrates a reduction of the talus within the mortis, gross length was short in the fibula. Posterior malleolus osseous fragment reduced as well as the medial malleolus. The talus was within the mortis and the patient had a L & U splint placed and three point molds to hold the reduction. IMPRESSION: A 74-year-old female with a very complicated medical history who is wheelchair bound with a right closed trimalleolar ankle fracture. PLAN: At this point in time the patient, given her medical history, would not fare well from the right ankle open reduction internal fixation. She will be treated non-operatively for a right ankle fracture. Given the fact that she is non weight bearing and never stands up or walks on the right lower extremity, she is not an ideal candidate for surgery. She will be treated non-operatively. She will follow up at the [facility] in 10 days for splint removal and placement of the right ankle and leg cast. She will be casted for likely 10-12 weeks, given her diabetic history. After the 10-12 weeks we will obtain radiographs, and a clinical examination to insure that she can have the cast removed. Given the poor healing parameters of this patient, she will likely be casted for 3 months. The patient, I believe was given blood in the E.R. given her low H&H. MTDD
[2020-05-11] MEDS: PREGABALIN 75 MG CAP(LYRICA) PO SCH (04:55)
[2020-05-11 06:00] VITALS: BP 144/82
[2020-05-11 06:52] LABS: HEMATOCRIT 32.5 % (36.0-47.0); HEMOGLOBIN 9.3 g/dl (12.0-15.5); MEAN CORPUSCULAR HEMOGLOBIN 24.3 pg (27.0-33.0); MEAN CORPUSCULAR HGB CONC 28.6 g/dl (32.0-36.5); MEAN CORPUSCULAR VOLUME 85.1 fl (80.0-96.0); PLATELET COUNT, AUTOMATED 101 10^3/uL (150-450); RED BLOOD COUNT 3.82 10^6/uL (4.00-5.40); WHITE BLOOD COUNT 9.1 10^3/uL (4.0-10.0)
[2020-05-11 07:13] LABS: CALCIUM LEVEL 8.6 MG/DL (8.8-10.2); CREATININE FOR GFR 1.34 MG/DL (0.55-1.30); POTASSIUM SERUM 3.9 MEQ/L (3.5-5.1)
[2020-05-11] MEDS: FLUTICASONE HFA 110 MCG 12 GM INHALER (FLOVENT) INH SCH ×2 (07:14→18:25)
[2020-05-11] MEDS: SUCRALFATE 1 GM TAB PO SCH ×4 (07:30→21:49)
[2020-05-11] MEDS: HumaLOG INSULIN (NovoLOG) PER UNIT SC SCH ×4 (07:30→21:48)
[2020-05-11] MEDS: SPIRONOLACTONE 25 MG TAB PO SCH (09:00)
[2020-05-11] MEDS: MIRALAX *UNIT DOSE* 17GM PACKET PO SCH ×2 (09:00→21:51)
[2020-05-11] MEDS ORDERED: LEVALBUTEROL 1.25 MG/0.5 ML CONCENTRATE NEB INH PRN (09:15)
[2020-05-11] MEDS: LEVALBUTEROL 1.25 MG/0.5 ML CONCENTRATE NEB INH SCH ×4 (09:15→18:24)
[2020-05-11] MEDS ORDERED: ONDANSETRON 4MG/2ML VIAL IV ONE (09:30)
[2020-05-11] MEDS: TORSEMIDE 100 MG TAB PO SCH (09:38)
[2020-05-11] MEDS: atenoloL 25 MG TAB PO SCH ×2 (09:38→21:50)
[2020-05-11] MEDS: levETIRAcetam **XR** 500 MG TABLET PO SCH ×2 (09:38→21:49)
[2020-05-11] MEDS: LEVEMIR (INSULIN DETEMIR) 1 UNITS/0.01ML SC SCH ×2 (09:39→21:48)
[2020-05-11] MEDS: DOXYCYCLINE HYCLATE 100MG TABLET PO SCH ×2 (09:39→21:49)
[2020-05-11] MEDS: PANTOPRAZOLE 40MG TAB (PROTONIX) PO SCH ×2 (09:39→21:49)
[2020-05-11] MEDS: DULoxetine 30 MG CAP (CYMBALTA) PO SCH ×2 (09:39→21:49)
[2020-05-11] MEDS: allopurinoL 300 MG TAB PO SCH (09:39)
[2020-05-11] MEDS: DOCUSATE SODIUM 100MG CAPSULE PO SCH ×2 (09:39→21:48)
[2020-05-11] MEDS: LACTULOSE 20 GM/30 ML SYRUP UD PO SCH ×2 (09:45→21:47)
[2020-05-11] MEDS: LACTIC ACID 12% LOTION 225 GM BTL TOP SCH ×2 (09:53→21:51)
--- NOTE | 2020-05-11 11:15 | IPNPDOC ---
Date Seen The patient was seen on 05/11/20. Progress Note SUBJECTIVE: lethargic and slow to respond, but appropriate. admits to pain 4/10 scale ankle pain. denies brbpr, melena, black tarry stools, lightheadedness, dizziness, chest pain. admits to chronic dyspnea. OBJECTIVE: PHYSICAL EXAMINATION VITAL SIGNS: See below GENERAL APPEARANCE: asleep, but arousable. lethargic and disoriented . able to state her name slow to respond but appropriate. no use of acc resp muscles HEENT:dry mucous membranes, no pharyngeal erythema.no jvd CARDIOVASCULAR: RRR, normal S1-S2. No murmurs, gallops, rubs.nondisplaced PMI LUNGS: AEBE Diminished breath sounds bilaterally, no wheezes, crackles, or rhonchi. ABDOMEN: Soft, nontender, obese slightly distended, bowel sounds present. No masses or ecchymosis. No CVA tenderness. EXTREMITIES: 1+ pitting edema in bilateral lower extremities.right leg splinted. toes pink warm to touch NEUROLOGICAL: GCS of 15 LABORATORY DATA: See below. IMAGIN05/09/20 right tibia/fibula x-ray: 1. Osteopenia. 2. Trimalleolar fracture of the ankle with dislocation. 05/09/20 right foot x-ray: 1. Fracture of the ankle with tibiotalar subluxation. 2. Osteopenia. 3. Otherwise negative right foot. 05/09/20 right ankle x-ray: 1. Trimalleolar fracture of the ankle with posterior and lateral dislocation of the talus. 2. Diffuse osteopenia. 05/09/20 chest x-ray: 1. Slight left base clearing since 04/11/2020. 2. Otherwise stable poor inspiratory chest. No acute process is identified 05/10/[address]: 1. Comminuted trimalleolar fractures with mild displacement of fragments. There are several punctate small fracture fragments which are noted within the articular space as loose bodies. No dislocation or significant subluxation. 2. Subcutaneous infiltration and confluence about the ankle and dorsum of the foot. MICROBIOLOGY: Please see below. Assessment: 74-year-old female s/p mechanical fall, sent to the ER, and found to have a right ankle fracture following a witnessed mechanical fall, s/p bedsi de reduction and splinting by orthopedic surgery . Family requests hospice, but pt wants full code. Acute metabolic encephalopathy -with acute on chronic hypercapnia improved on cpap -minimizing all sedatives, pain meds. h/o CVA -oral AC held due to hgb 6 on admission s/p rbc transfusion Acute on chronic hypercarbic respiratory failure -improved on cpap -decreased lyrica Symptomatic anemia -s/p rbc transfusion -unable to find source from previous colonoscopy -continue on ppi bid and carafate -transfuse prn -held oral AC Right ankle fracture -reduced , splinted by ortho -family unable to care for pt and asking for placement Chronic kidney disease3 -at baseline creatinine CHF with preserved ejection fraction -compensated -resumed home meds COPD -compensated w/o wheezing, but increased co2, therefore, had to reduce lyrica dose to prevent oversedation Chronic afib -held ac due to severe anemia s/p rbc transfusion -rate controlled Type 2 diabetes w/ neuropathy -uncontrolled -increase insulin for better glycemic control Chronic pain from discectomies -pain meds increasing co2 level due to decrease respiratory drive -decreased lyrica dose Seizure disorder -resumed home meds Hx of constipation -bowel regimen GERD -on ppi Morbid obesity/az -cpap home settings Hx of DVTs/Pe/IVC FILTER -off oral ac due to anemia gi bleed. PLAN: placement once medical issues are stable. DVT prophylaxis: held for GI bleed. VS, I&O, 24H, Fishbone Vital Signs/I&O Vital Signs Date Time Temp Pulse Resp B/P (MAP) Pulse Ox O2 Delivery O2 Flow Rate FiO2 05/11/20 10:38 4.0 05/11/20 09:38 102 144/82 05/11/20 06:00 98.3 19 94 NIPPV (BIPAP/CPAP) I&O- Last 24 Hours up to 6 AM 05/11/20 06:00 Intake Total 1070 ml Output Total 2050 ml Balance -980 ml Laboratory Data 24H LABS Laboratory Tests 2 05/10/20 11:01: Blood Gas Bicarbonate Standard 30.0H, Arterial Blood pH 7.351, Arterial Blood Partial Pressure CO2 60.4*H, Arterial Blood Partial Pressure O2 74.7L, Arterial Blood Total CO2 34.5H, Arterial Blood HCO3 32.7H, Arterial Blood Base Excess 6.1H, Arterial Blood Oxygen Saturation 95.0 05/10/20 11:34: Bedside Glucose (Misc Panel) 198H 05/10/20 11:37: Ammonia 25 05/10/20 13:19: Blood Gas Bicarbonate Standard 28.1H, Arterial Blood pH 7.378, Arterial Blood Partial Pressure CO2 52.0H, Arterial Blood Partial Pressure O2 62.5L, Arterial Blood Total CO2 31.5H, Arterial Blood HCO3 29.9H, Arterial Blood Base Excess 4.1H, Arterial Blood Oxygen Saturation 92.2L 05/10/20 14:55: Prothrombin Time 15.8H, Prothromb Time International Ratio 1.23, Activated Partial Thromboplast Time 28.1 05/10/20 16:34: Bedside Glucose (Misc Panel) 214H 05/10/20 20:07: Nucleated Red Blood Cells % (auto) 1.1H, Immature Platelet Fraction 7.4 05/10/20 21:18: Bedside Glucose (Misc Panel) 240H 05/11/20 06:03: Nucleated Red Blood Cells % (auto) 0.4H, Anion Gap 6L, Glomerular Filtration Rate 41.0, Calcium Level 8.6L 05/11/20 06:18: Bedside Glucose (Misc Panel) 218H CBC/BMP Laboratory Tests 05/10/20 20:07 05/11/20 06:03 NUSRAT GUERRERO MD May 11, 2020 11:06
[2020-05-11 14:00] VITALS: BP 151/60
[2020-05-11] MEDS: PREGABALIN 50 MG CAP (LYRICA) PO SCH (21:49)
[2020-05-11] MEDS: traMADol 50 MG TAB PO PRN (21:50)
[2020-05-11 22:00] VITALS: BP 149/61
[2020-05-12] MEDS: LEVALBUTEROL 1.25 MG/0.5 ML CONCENTRATE NEB INH SCH ×6 (04:00→20:25)
[2020-05-12] MEDS: FLUTICASONE HFA 110 MCG 12 GM INHALER (FLOVENT) INH SCH ×2 (07:49→20:25)
--- NOTE | 2020-05-12 07:50 | IPNPDOC ---
Date Seen The patient was seen on 05/12/20. Progress Note SUBJECTIVE: pt is back to her normal mentation , and despite answering slowly she is able to converse appropriately. "When Can I go home?"Pt's family requested SNF placement as they cannot take care of her anymore. despite anemia on admission, pt's hemoglobin has remained stable. Overnight, she denies brbpr, melena, black tarry stools, lightheadedness, dizziness, chest pain. She denies cough, sob, PND. no pain in the right ankle when she is supine and not moving. pt has not been out of bed OBJECTIVE: PHYSICAL EXAMINATION VITAL SIGNS: See below GENERAL APPEARANCE: asleep, but awakened and speaking appropriately no facial asymmetry tongue is midline no slurred speech.no use of acc resp muscles HEENT:dry mucous membranes, chapped lips no pharyngeal erythema.no jvd CARDIOVASCULAR: RRR, normal S1-S2. No murmurs, gallops, rubs.nondisplaced PMI LUNGS: AEBE Diminished breath sounds bilaterally, no wheezes, crackles, or rhonchi. ABDOMEN: Soft, nontender, obese slightly distended, bowel sounds present. No masses or ecchymosis. No CVA tenderness. EXTREMITIES: 1+ pitting edema in bilateral lower extremities.right leg splinted. toes pink warm to touch NEUROLOGICAL: GCS of 15 LABORATORY DATA: See below. IMAGIN05/09/20 right tibia/fibula x-ray: 1. Osteopenia. 2. Trimalleolar fracture of the ankle with dislocation. 05/09/20 right foot x-ray: 1. Fracture of the ankle with tibiotalar subluxation. 2. Osteopenia. 3. Otherwise negative right foot. 05/09/20 right ankle x-ray: 1. Trimalleolar fracture of the ankle with posterior and lateral dislocation of the talus. 2. Diffuse osteopenia. 05/09/20 chest x-ray: 1. Slight left base clearing since 04/11/2020. 2. Otherwise stable poor inspiratory chest. No acute process is identified 05/10/[address]: 1. Comminuted trimalleolar fractures with mild displacement of fragments. There are several punctate small fracture fragments which are noted within the articular space as loose bodies. No dislocation or significant subluxation. 2. Subcutaneous infiltration and confluence about the ankle and dorsum of the foot. MICROBIOLOGY: Please see below. Assessment: 74-year-old female s/p mechanical fall, sent to the ER, and found to have a right ankle fracture following a witnessed mechanical fall, s/p bedside reduction and splinting by orthopedic surgery . Family requests hospice, but pt wants full code. Acute metabolic encephalopathy -with acute on chronic hypercapnia improved on cpap -minimizing all sedatives, pain meds. -back to baseline mentation today -although improved, she seemed to have noticeable cognitive impairment which is different from baseline. -since she has been off oral AC, check CT head w/o contrast r/o cva. h/o CVA -oral AC held due to hgb 6 on admission s/p rbc transfusion -since she has been off oral AC, check CT head w/o contrast r/o cva. Acute on chronic hypercarbic respiratory failure -improved on cpap -decreased lyrica -back to baseline mentation Symptomatic anemia -s/p rbc transfusion -unable to find source from previous colonoscopy -continue on ppi bid and carafate -transfuse prn -held oral AC Right ankle fracture -reduced , splinted by ortho -family unable to care for pt and asking for placement Chronic kidney disease3 -at baseline creatinine CHF with preserved ejection fraction -compensated -resumed home meds COPD -compensated w/o wheezing, but increased co2, therefore, had to reduce lyrica dose to prevent oversedation Chronic afib -held ac due to severe anemia s/p rbc transfusion -rate controlled Type 2 diabetes w/ neuropathy -uncontrolled -increase insulin for better glycemic control Chronic pain from discectomies -pain meds increasing co2 level due to decrease respiratory drive -decreased lyrica dose Seizure disorder -resumed home meds Hx of constipation -bowel regimen GERD -on ppi Morbid obesity/az -cpap home settings Hx of DVTs/Pe/IVC FILTER -off oral ac due to anemia gi bleed. disposition: SNF per family request. pt wants full code, and she is back to her normal mentation. VS, I&O, 24H, Fishbone Vital Signs/I&O Vital Signs Date Time Temp Pulse Resp B/P (MAP) Pulse Ox O2 Delivery O2 Flow Rate FiO2 05/12/20 05:22 3.0 05/11/20 22:20 18 94 NIPPV (BIPAP/CPAP) 05/11/20 22:00 97.1 95 149/61 (90) I&O- Last 24 Hours up to 6 AM 05/12/20 06:00 Intake Total 1350 ml Output Total 5700 ml Balance -4350 ml Laboratory Data 24H LABS Laboratory Tests 2 05/11/20 11:49: Bedside Glucose (Misc Panel) 294H 05/11/20 17:00: Bedside Glucose (Misc Panel) 279H 05/11/20 21:23: Bedside Glucose (Misc Panel) 271H 05/12/20 05:20: Bedside Glucose (Misc Panel) 237H NUSRAT GUERRERO MD May 12, 2020 07:50
--- NOTE | 2020-05-12 08:37 | REP ---
INDICATION: ams r/o cva off anticoag due to gibleed. COMPARISON: Comparison studies are from 25 March 2020 and 27 May 2018.. TECHNIQUE: Helical scanning is acquired. 5 mm axial images were reformatted. Coronal MPR images were generated. FINDINGS: Bone window settings demonstrate an intact bony calvarium. There is no evidence of skull fracture or incidental bony calvarial lesion. The visualized paranasal sinuses appear clear. No intraorbital abnormality is seen. On soft tissue window setting images; the lateral, third, and fourth ventricles are normal in size and position. Mesa-white differentiation pattern is normal above and below the tentorium. There are is no evidence of intracranial hemorrhage. No mass, edema, infarction, or midline shift is seen. No extra-axial fluid collection is appreciated. Vascular calcification is noted. There is minimal generalized volume loss. There is a small area of old encephalomalacia in the right parietal lobe consistent with an old infarct. This is unchanged from 27 May 2018. IMPRESSION: No acute intracranial abnormality. Findings unchanged from prior studies.. <Electronically signed by Arnold Wang > 05/12/20 [id number]
[2020-05-12] MEDS: LACTIC ACID 12% LOTION 225 GM BTL TOP SCH ×2 (09:00→21:42)
[2020-05-12 09:04] LABS: ABG BASE EXCESS 10.5 (-2.0-2.0); ABG HCO3 35.6 MEQ/L (22.0-26.0); ABG PARTIAL PRESSURE CO2 50.9 mmHg (35.0-45.0); ABG PARTIAL PRESSURE O2 102.7 mmHg (75.0-100.0); ABG STANDARD HCO3 34.2 MEQ/L (22.0-26.0); ABG TOTAL CO2 37.1 MEQ/L (23.0-31.0); ABG pH (ARTERIAL) 7.462 UNITS (7.350-7.450)
[2020-05-12] MEDS: LEVEMIR (INSULIN DETEMIR) 1 UNITS/0.01ML SC SCH ×2 (09:14→21:41)
[2020-05-12] MEDS: SPIRONOLACTONE 25 MG TAB PO SCH (09:14)
[2020-05-12] MEDS: MIRALAX *UNIT DOSE* 17GM PACKET PO SCH ×2 (09:14→21:42)
[2020-05-12] MEDS: HumaLOG INSULIN (NovoLOG) PER UNIT SC SCH ×4 (09:14→21:00)
[2020-05-12] MEDS: DULoxetine 30 MG CAP (CYMBALTA) PO SCH ×2 (09:15→21:42)
[2020-05-12] MEDS: PANTOPRAZOLE 40MG TAB (PROTONIX) PO SCH ×2 (09:15→21:41)
[2020-05-12] MEDS: SUCRALFATE 1 GM TAB PO SCH ×2 (09:15→12:19)
[2020-05-12] MEDS: DOCUSATE SODIUM 100MG CAPSULE PO SCH ×2 (09:15→21:41)
[2020-05-12] MEDS: TORSEMIDE 100 MG TAB PO SCH (09:15)
[2020-05-12] MEDS: DOXYCYCLINE HYCLATE 100MG TABLET PO SCH ×2 (09:16→21:42)
[2020-05-12] MEDS: PREGABALIN 50 MG CAP (LYRICA) PO SCH ×2 (09:16→21:41)
[2020-05-12] MEDS: atenoloL 25 MG TAB PO SCH ×2 (09:16→21:41)
[2020-05-12] MEDS: allopurinoL 300 MG TAB PO SCH (09:16)
[2020-05-12] MEDS: LACTULOSE 20 GM/30 ML SYRUP UD PO SCH ×2 (09:16→21:40)
[2020-05-12] MEDS: levETIRAcetam **XR** 500 MG TABLET PO SCH ×2 (11:16→21:41)
[2020-05-12] MEDS ORDERED: POLYVINYL ALCOHOL OPHTH SOLN 15 ML(LIQUITEARS) OU PRN (13:30)
[2020-05-12 14:00] VITALS: BP 144/60
[2020-05-12] MEDS: traMADol 50 MG TAB PO PRN (16:10)
[2020-05-12] MEDS ORDERED: NITROGLYCERIN 0.4 MG SUBL TABLET SL PRN (16:30)
[2020-05-12] MEDS ORDERED: GI COCKTAIL 50ML BTL(HYOSCYAMINE/MAALOX/LIDOCAINE VISCOUS)(1:3:1) PO ONE (16:30)
[2020-05-12] MEDS: SUCRALFATE SUSP 1GM/10ML UD PO SCH ×2 (17:30→21:39)
[2020-05-12 18:11] LABS: CK-MB VALUE MASS < 1.0 NG/ML (<3.6); CPK CREATINE PHOSPHOKINASE 84 U/L (26-192); MB/CK RELATIVE INDEX 1.19 (< OR =4); TROPONIN I < 0.02 NG/ML (< 0.10)
[2020-05-12] MEDS ORDERED: METOCLOPRAMIDE INJ 10MG/2ML VIAL (J2765 PER 1) IV SCH (19:00)
[2020-05-12] MEDS: PERCOCET 5MG/325MG TAB PO PRN (21:48)
[2020-05-12 22:00] VITALS: BP 144/79
[2020-05-13] MEDS: LEVALBUTEROL 1.25 MG/0.5 ML CONCENTRATE NEB INH SCH ×7 (00:26→23:24)
[2020-05-13] MEDS: METOCLOPRAMIDE INJ 10MG/2ML VIAL (J2765 PER 1) IV SCH ×4 (04:10→21:43)
[2020-05-13] MEDS: SODIUM CHLORIDE 0.9% INJ 10 ML SYR IV PRN ×2 (04:11→21:45)
[2020-05-13 06:00] VITALS: BP 143/73
[2020-05-13] MEDS: SUCRALFATE SUSP 1GM/10ML UD PO SCH ×5 (07:30→21:42)
[2020-05-13] MEDS: HumaLOG INSULIN (NovoLOG) PER UNIT SC SCH ×4 (07:30→21:44)
--- NOTE | 2020-05-13 08:02 | ECGEPIP ---
[facility] Test Date: 2020-05-12 Pat Name: SHIVANI PAYNE Department: Room: [place] [address] Gender: Female [employer]: [employer]A : 1945 Requested By: NUSRAT Carbajal Order Number: [id number] Reading MD: Kurtis Lazo Measurements Intervals [place] Rate: 85 P: 83 CA: 210 QRS: 7 QRSD: 94 T: 62 QT: 384 QTc: 456 Interpretive Statements Sinus rhythm with 1st degree AV block Low QRS complex voltage in the limb leads Delayed anterior R wave progression Nonspecific ST-T wave abnormalities Similar to tracing done 05-09-20 Electronically Signed on 05-13-2020 8:01:41 EST by Kurtis Lazo
[2020-05-13] MEDS: FLUTICASONE HFA 110 MCG 12 GM INHALER (FLOVENT) INH SCH ×2 (08:14→19:44)
[2020-05-13] MEDS: SODIUM CHLORIDE 0.9% INJ 10 ML SYR IV SCH (09:00)
[2020-05-13] MEDS: PERCOCET 5MG/325MG TAB PO PRN (09:19)
[2020-05-13 09:25] VITALS: BP 156/69
[2020-05-13] MEDS: SPIRONOLACTONE 25 MG TAB PO SCH (10:49)
[2020-05-13] MEDS: MIRALAX *UNIT DOSE* 17GM PACKET PO SCH ×2 (10:51→21:43)
[2020-05-13] MEDS: DULoxetine 30 MG CAP (CYMBALTA) PO SCH ×2 (10:51→21:42)
[2020-05-13] MEDS: LACTULOSE 20 GM/30 ML SYRUP UD PO SCH ×2 (10:51→21:00)
[2020-05-13] MEDS: DOXYCYCLINE HYCLATE 100MG TABLET PO SCH (10:51)
[2020-05-13] MEDS: atenoloL 25 MG TAB PO SCH ×2 (10:53→21:43)
[2020-05-13] MEDS: PANTOPRAZOLE 40MG TAB (PROTONIX) PO SCH ×2 (10:53→21:42)
[2020-05-13] MEDS: DOCUSATE SODIUM 100MG CAPSULE PO SCH ×2 (10:54→21:42)
[2020-05-13] MEDS: PREGABALIN 50 MG CAP (LYRICA) PO SCH ×2 (10:54→21:42)
[2020-05-13] MEDS: LACTIC ACID 12% LOTION 225 GM BTL TOP SCH ×2 (10:55→21:45)
[2020-05-13] MEDS: allopurinoL 300 MG TAB PO SCH (11:05)
[2020-05-13] MEDS: levETIRAcetam **XR** 500 MG TABLET PO SCH ×2 (11:05→21:42)
[2020-05-13] MEDS: TORSEMIDE 100 MG TAB PO SCH (11:06)
[2020-05-13] MEDS: LEVEMIR (INSULIN DETEMIR) 1 UNITS/0.01ML SC SCH ×2 (11:25→21:44)
[2020-05-13 12:35] VITALS: BP 156/69
[2020-05-13] MEDS: traMADol 50 MG TAB PO PRN ×2 (13:24→21:57)
[2020-05-13 14:00] VITALS: BP 136/70
--- NOTE | 2020-05-13 19:10 | IPNPDOC ---
Date Seen The patient was seen on 05/13/20. Progress Note SUBJECTIVE: BS slightly elevated, increased levemir. Appears to be close to baseline from what we know. Plan is home with hospice 05/14/20 after MOLST form completed with family. Denies chest pain, shortness of breath, fevers, chills, n/v/d. OBJECTIVE: PHYSICAL EXAMINATION VITAL SIGNS: See below GENERAL APPEARANCE: NAD resting in bed, no facial asymmetry tongue is midline no slurred speech.no use of acc resp muscles HEENT: moist mucous membranes, NECK: no JVD CARDIOVASCULAR: RRR, normal S1-S2. No murmurs, gallops, rubs.nondisplaced PMI LUNGS: Diminished breath sounds bilaterally, no wheezes, crackles, or rhonchi. ABDOMEN: Soft, nontender, obese slightly distended, bowel sounds present. No masses or ecchymosis. No CVA tenderness. EXTREMITIES: 1+ pitting edema in bilateral lower extremities. right leg splinted. toes pink warm to touch NEUROLOGICAL: No focal deficits, CN 2-[address] LABORATORY DATA: See below. IMAGIN05/12/20 CT head: No acute intracranial abnormality. Findings unchanged from prior studies. 05/09/20 right tibia/fibula x-ray: 1. Osteopenia. 2. Trimalleolar fracture of the ankle with dislocation. 05/09/20 right foot x-ray: 1. Fracture of the ankle with tibiotalar subluxation. 2. Osteopenia. 3. Otherwise negative right foot. 05/09/20 right ankle x-ray: 1. Trimalleolar fracture of the ankle with posterior and lateral dislocation of the talus. 2. Diffuse osteopenia. 05/09/20 chest x-ray: 1. Slight left base clearing since 04/11/2020. 2. Otherwise stable poor inspiratory chest. No acute process is identified 05/10/[address]: 1. Comminuted trimalleolar fractures with mild displacement of fragments. There are several punctate small fracture fragments which are noted within the articular space as loose bodies. No dislocation or significant subluxation. 2. Subcutaneous infiltration and confluence about the ankle and dorsum of the foot. MICROBIOLOGY: Please see below. Assessment: 74-year-old female s/p mechanical fall, sent to the ER, and found to have a right ankle fracture following a witnessed mechanical fall, s/p bedside reduction and splinting by orthopedic surgery . PLAN: Acute metabolic encephalopathy likely 2/2 to acute on chronic hypercapnia- improved on cpap -Last ABG showed to be near her normal pCO2 -At baseline mentation per nursing who spoke with family -CT head: no acute intracranial abnormality -No focal deficits Symptomatic FRED anemia, chronic -S/p 3 units prbc transfusion -Unable to find source from previous colonoscopy -Continue on ppi bid and carafate -Occult blood ordered -transfuse prn -Started on ferrous sulfate BID, colace -held oral AC Right ankle fracture -reduced , splinted by ortho -family unable to care for pt previously but asking to go back home with hospice as before now -Prior to discharge, will need f/u care arranged. H/o CVA -oral AC held due to hgb 6 on admission s/p rbc transfusion -CT head neg, no new focal deficits Chronic kidney disease3 -at baseline creatinine CHF with preserved ejection fraction -compensated -resumed home meds COPD -compensated w/o wheezing Chronic afib -held ac due to severe anemia s/p rbc transfusion -rate controlled Type 2 diabetes w/ neuropathy -uncontrolled -increase insulin for better glycemic control Chronic pain from discectomies -pain meds increasing co2 level due to decrease respiratory drive -decreased lyrica dose Seizure disorder -resumed home meds Hx of constipation -bowel regimen GERD -on ppi Morbid obesity/az -cpap home settings Hx of DVTs/Pe/IVC FILTER -off oral ac due to anemia, ? gi bleed. DISPOSITION: Likely back home with hospice on 05/14/20, is confused at times (baseline mentation) and would like to make CERTIFIED MASSAGE THERAPIST. To fill out MOLST in AM. VS, I&O, 24H, Fishbone Vital Signs/I&O Vital Signs Date Time Temp Pulse Resp B/P (MAP) Pulse Ox O2 Delivery O2 Flow Rate FiO2 05/13/20 14:00 97.6 96 18 136/70 (92) 96 Nasal Cannula 3.0 05/13/20 00:35 28 I&O- Last 24 Hours up to 6 AM 05/13/20 05:59 Intake Total 760 ml Output Total 2650 ml Balance -1890 ml Laboratory Data 24H LABS Laboratory Tests 2 05/12/20 20:54: Bedside Glucose (Misc Panel) 227H 05/13/20 06:31: Bedside Glucose (Misc Panel) 230H 05/13/20 08:44: XS-Nbc-V-Type Natriuretic Peptide 411 05/13/20 11:44: Bedside Glucose (Misc Panel) 275H 05/13/20 16:44: Bedside Glucose (Misc Panel) 363H Current Medications Current Medications Medications (Trade) Dose Ordered Sig/Rupali Route PRN Reason Start Time Stop Time Status Last Admin Dose Admin Acetaminophen (Tylenol Arthritis Er) 650 mg QID PRN PO MILD PAIN / FEVER 05/10/20 10:00 05/12/20 16:31 Albuterol Sulfate (Proventil Neb) 2.5 mg QID PRN INH SHORTNESS OF BREATH 05/10/20 10:00 05/11/20 09:05 DC Albuterol Sulfate (Proventil, Ventolin Hfa) 2 puff QID PRN INH SHORTNESS OF BREATH 05/10/20 10:00 05/11/20 09:05 DC 05/10/20 20:05 Allopurinol (Zyloprim) 300 mg DAILY PO 05/10/20 09:00 05/13/20 11:05 Apixaban (Eliquis) 5 mg BID PO 05/10/20 09:00 05/10/20 10:45 DC Artificial Tears (Akwa Tears) 1 drop Q4HP PRN OU DRY EYES 05/12/20 13:30 Atenolol (Tenormin) 25 mg BID PO 05/10/20 09:00 05/13/20 10:53 Dextrose (Dextrose 50%) 25 ml ASDIRECTED PRN IV SEE LABEL COMMENTS 05/10/20 11:15 Docusate Sodium (Colace) 100 mg BID PO 05/10/20 09:00 05/13/20 10:54 Doxycycline Hyclate (Vibramycin) 100 mg BID PO 05/10/20 09:00 05/13/20 10:51 Duloxetine HCl (Cymbalta) 60 mg BID PO 05/10/20 09:00 05/13/20 10:51 Fluticasone Propionate (Flovent Hfa 110 Mcg) 1 puff RBID INH 05/10/20 08:00 05/13/20 08:14 Glucagon (Glucagon) 1 mg ASDIRECTED PRN SC SEE LABEL COMMENTS 05/10/20 11:15 Glucose (Glucose) 16 GM ASDIRECTED PRN PO SEE LABEL COMMENTS 05/10/20 11:15 Heparin Sodium (Heparin (Flush)) 500 units ASDIRECTED PRN IV SEE LABEL COMMENTS 05/12/20 23:15 05/13/20 04:11 Heparin Sodium (Heparin (Flush)) 500 units DAILY IV 05/13/20 09:00 05/13/20 09:00 Home Med (Med Rec Complete!) ASDIRECTED XX 05/10/20 08:15 05/10/20 08:10 DC Insulin Detemir (Levemir Insulin) 20 units BID SC 05/10/20 09:00 05/13/20 08:16 DC 05/12/20 21:41 Insulin Detemir (Levemir Insulin) 28 units BID SC 05/13/20 09:00 05/13/20 11:25 Insulin Human Lispro (HumaLOG INSULIN) SEE PROTOCOL TABLE AC TN 05/12/20 17:30 05/13/20 17:52 Insulin Human Lispro (HumaLOG INSULIN) SEE PROTOCOL TABLE QHS TN 05/12/20 21:00 Insulin Human Lispro (HumaLOG INSULIN) SEE TABLE BELOW GLUC... AC TN 05/10/20 12:00 05/10/20 13:37 DC Insulin Human Lispro (HumaLOG INSULIN) SEE TABLE BELOW GLUC... ACHS TN 05/10/20 17:30 05/12/20 13:01 DC 05/12/20 12:18 Insulin Human Lispro (HumaLOG INSULIN) SEE TABLE BELOW GLUC... QHS TN 05/10/20 21:00 Cancel Lactic Acid (Lac-Hydrin 12% Lotion) 1 dose BID TOP 05/10/20 09:00 05/13/20 10:55 Lactulose (Cephulac) 30 ml BID PO 05/10/20 09:00 05/13/20 10:51 Levalbuterol HCl (Xopenex Neb) 1.25 mg Q1HP PRN INH SHORTNESS OF BREATH 05/11/20 09:15 Levalbuterol HCl (Xopenex Neb) 1.25 mg RQ4H INH 05/11/20 09:15 05/13/20 15:29 Levetiracetam (Keppra Xr) 500 mg BID PO 05/10/20 09:00 05/13/20 11:05 Metoclopramide HCl (REGLAN INJection) 10 mg Q6H IV 05/12/20 19:00 05/12/20 22:36 DC 05/12/20 21:40 Metoclopramide HCl (REGLAN INJection) 10 mg Q6H IV 05/13/20 03:30 05/13/20 11:25 Miscellaneous (Unresolved Patient Own Med Order) SEE LABEL COMMENTS DAILY XX 05/10/20 09:00 05/12/20 13:19 DC Nitroglycerin (Nitrostat (1/ 150)) 0.4 mg Q5MP PRN SL CHEST PAIN 05/12/20 16:30 Nystatin (Mycostatin) 1 dose BID PRN TOP RASH 05/10/20 10:00 Ondansetron HCl (Zofran) 4 mg QID PRN PO NAUSEA OR VOMITING 05/10/20 10:00 05/12/20 12:19 Oxycodone/ Acetaminophen (Percocet 5mg/ 325mg Tablet) 1 tab Q8HP PRN PO severe pain (PS 8-10) 05/10/20 10:00 05/13/20 09:19 Pantoprazole Sodium (Protonix) 40 mg BID PO 05/10/20 09:00 05/13/20 10:53 Patient Own Medication (Patient'S Own Med) 1 ea BID OU 05/10/20 21:00 05/12/20 13:02 DC Polyethylene Glycol (Miralax) 1 pkt BID PO 05/10/20 09:00 05/13/20 10:51 Pregabalin (Lyrica) 50 mg BID PO 05/11/20 21:00 05/13/20 10:54 Pregabalin (Lyrica) 75 mg Q8H PO 05/10/20 14:00 05/11/20 11:09 DC 05/10/20 21:37 Sodium Chloride (Saline Lock Flush) 10 ml ASDIRECTED PRN IV SEE LABEL COMMENTS 05/12/20 23:15 05/13/20 04:11 Sodium Chloride (Saline Lock Flush) 10 ml DAILY IV 05/13/20 09:00 05/13/20 09:00 Spironolactone (Aldactone) 25 mg DAILY PO 05/10/20 09:00 05/13/20 10:49 Sucralfate (Carafate Suspension) 1 gm ACHS PO 05/12/20 17:30 05/12/20 21:39 Sucralfate (Carafate) 1 gm ACHS PO 05/10/20 12:00 05/12/20 16:36 DC 05/12/20 12:19 Torsemide (Demadex) 100 mg DAILY PO 05/10/20 09:00 05/13/20 11:06 Tramadol HCl (Ultram) 50 mg Q8HP PRN PO MODERATE PAIN (PS 1-7) 05/10/20 10:00 05/13/20 13:24 Allergies Coded Allergies: Cephalosporins (Verified Allergy, Intermediate, hives, 07/09/19) Penicillins (Verified Allergy, Intermediate, hives, 07/09/19) Sulfa (Sulfonamide Antibiotics) (Verified Allergy, Intermediate, hives, 07/09/19) chlorpromazine (Verified Allergy, Intermediate, hiives, 07/09/19) loratadine (Verified Allergy, Intermediate, hives, 07/09/19) pentazocine (Verified Allergy, Intermediate, hives, 07/09/19) TAPE (Verified Allergy, Unknown, band-aids, 07/09/19) methadone (Verified Allergy, Unknown, 07/09/19) HAS HAD DILAUDID AND DEMEROL IN THE PAST Ayala Brown MD May 13, 2020 19:10
[2020-05-13] MEDS: FERROUS SULFATE 325MG TAB PO SCH (21:42)
[2020-05-13 22:00] VITALS: BP 140/68
[2020-05-14] MEDS: LEVALBUTEROL 1.25 MG/0.5 ML CONCENTRATE NEB INH SCH ×2 (03:24→07:41)
[2020-05-14] MEDS: METOCLOPRAMIDE INJ 10MG/2ML VIAL (J2765 PER 1) IV SCH ×2 (03:41→09:08)
[2020-05-14] MEDS: SODIUM CHLORIDE 0.9% INJ 10 ML SYR IV PRN ×2 (03:42→06:44)
[2020-05-14 06:00] VITALS: BP 148/68
[2020-05-14 07:34] LABS: HEMATOCRIT 31.9 % (36.0-47.0); MEAN CORPUSCULAR HGB CONC 28.2 g/dl (32.0-36.5); MEAN CORPUSCULAR VOLUME 85.1 fl (80.0-96.0); PLATELET COUNT, AUTOMATED 180 10^3/uL (150-450); RED BLOOD COUNT 3.75 10^6/uL (4.00-5.40); WHITE BLOOD COUNT 8.5 10^3/uL (4.0-10.0)
[2020-05-14] MEDS: FLUTICASONE HFA 110 MCG 12 GM INHALER (FLOVENT) INH SCH (07:41)
[2020-05-14 08:32] LABS: ALBUMIN 2.4 GM/DL (3.2-5.2); BILIRUBIN,TOTAL 0.8 MG/DL (0.2-1.0); CALCIUM LEVEL 8.5 MG/DL (8.8-10.2); CREATININE FOR GFR 1.39 MG/DL (0.55-1.30); GLOMERULAR FILTRATION RATE 39.3 (>39); POTASSIUM SERUM 3.5 MEQ/L (3.5-5.1); TOTAL PROTEIN 5.8 GM/DL (6.4-8.2)
[2020-05-14] MEDS ORDERED: PERCOCET PO (08:50)
[2020-05-14] MEDS ORDERED: FERR325T18 PO (08:50)
[2020-05-14] MEDS ORDERED: LEVEMIR (INSULIN DETEMIR) 1 UNITS/0.01ML SC SCH (09:00)
[2020-05-14] MEDS: HumaLOG INSULIN (NovoLOG) PER UNIT SC SCH (09:08)
[2020-05-14] MEDS: SODIUM CHLORIDE 0.9% INJ 10 ML SYR IV SCH (09:09)
[2020-05-14] MEDS: MIRALAX *UNIT DOSE* 17GM PACKET PO SCH (09:11)
[2020-05-14] MEDS: SUCRALFATE SUSP 1GM/10ML UD PO SCH (09:11)
[2020-05-14] MEDS: LACTULOSE 20 GM/30 ML SYRUP UD PO SCH (09:11)
[2020-05-14] MEDS: allopurinoL 300 MG TAB PO SCH (09:12)
[2020-05-14] MEDS: DULoxetine 30 MG CAP (CYMBALTA) PO SCH (09:12)
[2020-05-14] MEDS: PANTOPRAZOLE 40MG TAB (PROTONIX) PO SCH (09:13)
[2020-05-14] MEDS: TORSEMIDE 100 MG TAB PO SCH (09:13)
[2020-05-14] MEDS: FERROUS SULFATE 325MG TAB PO SCH (09:13)
[2020-05-14 09:14] VITALS: BP 148/68
[2020-05-14] MEDS: atenoloL 25 MG TAB PO SCH (09:14)
[2020-05-14] MEDS: DOCUSATE SODIUM 100MG CAPSULE PO SCH (09:14)
[2020-05-14] MEDS: PREGABALIN 50 MG CAP (LYRICA) PO SCH (09:14)
[2020-05-14] MEDS: SPIRONOLACTONE 25 MG TAB PO SCH (09:15)
[2020-05-14] MEDS: LACTIC ACID 12% LOTION 225 GM BTL TOP SCH (09:28)
[2020-05-14] MEDS: PERCOCET 5MG/325MG TAB PO PRN (09:29)
[2020-05-14] MEDS: levETIRAcetam **XR** 500 MG TABLET PO SCH (10:30)
--- NOTE | 2020-05-14 18:26 | DS.PDOC ---
Discharge Summary General Date of Admission May 10, 2020 at 08:06 Date of Discharge 05/14/20 Attending Physician: Ayala Brown MD Discharge Summary HISTORY OF PRESENT ILLNESS: Patient is a 74-year-old female with PMH below brought in by EMS following a fall at home on 05/09 at 1700. The patient is a poor historian however it does seem as though was a mechanical fall while she was walking to the bathroom. She notes no loss of consciousness, denies hitting her head. On speaking with the he notes that he was taking her to the bathroom she was standing up with her hands on the bars and her legs gave out from underneath her and one became trapped in between the toilet and the wall. The son and her were unable to lift her out and once they finally did with help of the neighbor EMS was called. In the emergency department she was found to have a right ankle fracture which was reduced and splinted by orthopedic surgery with the intention of discharging her home. However her family was unable to care for her at home, the is requesting a hospice consult and for her to go to a hospice house on Tuesday, and so she will be admitted to the hospital. While in the ED she was also found to have a hemoglobin of 6.8 and received 1 unit of PRBCs. On speaking with the patient once she arrived to the floor however patient knew nothing of a hospice at home that she has been receiving and on extensive questioning regarding her CODE STATUS she expressed a wish to remain full code. HOSPITAL COURSE: Patient was treated for acute metabolic encephalopathy likely 05/06 to acute on chronic hypercapnia and symptomatic anemia. Hypercapnia improved on cpap. ABGs showed improvement and patient was back to baseline. CT head: no acute intracranial abnormality. no focal deficits were seen. She had symptomatic FRED anemia, chronic and was transfused 3 units PRBCs this admission. There had been prior evaluation for anemia on record and they were unable to find source from previous colonoscopy. She was kept on PPI bid and carafate. She was also started on ferrous sulfate BID, colace. She had no s/s of acute bleeding so AC was resumed at discharge. For her right ankle fracture, this was reduced , splinted by orthopedic surgery. She will have f/u with them after discharge arranged. Other chronic issues remained stable. 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 She was later discharged back to home with Hospice. At time of discharge, there were no acute complaints. PAST MEDICAL HISTORY: History of recurrent GI bleeds/ Chronic anemia Iron deficiency anemia Heart failure preserved ejection fraction COPD/chronic hypoxic and hypercarbic respiratory failure on 2L O2 at home Secondary pulmonary hypertension Insulin-dependent diabetes mellitus CKD stage III HTN History of right parietal CVA Cognitive Impairment/Dementia. History of multiple DVT/IVC filter Chronic atrial fibrillation not on AC. 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 Never smoker. No alcohol or illicit drug use. FAMILY HISTORY: CAD COPD DM Psychiatric disorders PHYSICAL EXAMINATION VITAL SIGNS: See below GENERAL APPEARANCE: NAD resting in bed, no facial asymmetry tongue is midline no slurred speech.no use of acc resp muscles HEENT: moist mucous membranes, NECK: no JVD CARDIOVASCULAR: RRR, normal S1-S2. No murmurs, gallops, rubs.nondisplaced PMI LUNGS: Diminished breath sounds bilaterally, no wheezes, crackles, or rhonchi. ABDOMEN: Soft, nontender, obese slightly distended, bowel sounds present. No masses or ecchymosis. No CVA tenderness. EXTREMITIES: 1+ pitting edema in bilateral lower extremities. right leg splinted. toes pink warm to touch NEUROLOGICAL: No focal deficits, CN 2-[address] LABORATORY DATA: See below. IMAGIN05/12/20 CT head: No acute intracranial abnormality. Findings unchanged from prior studies. 05/09/20 right tibia/fibula x-ray: 1. Osteopenia. 2. Trimalleolar fracture of the ankle with dislocation. 05/09/20 right foot x-ray: 1. Fracture of the ankle with tibiotalar subluxation. 2. Osteopenia. 3. Otherwise negative right foot. 05/09/20 right ankle x-ray: 1. Trimalleolar fracture of the ankle with posterior and lateral dislocation of the talus. 2. Diffuse osteopenia. 05/09/20 chest x-ray: 1. Slight left base clearing since 04/11/2020. 2. Otherwise stable poor inspiratory chest. No acute process is identified 05/10/[address]: 1. Comminuted trimalleolar fractures with mild displacement of fragments. There are several punctate small fracture fragments which are noted within the articular space as loose bodies. No dislocation or significant subluxation. 2. Subcutaneous infiltration and confluence about the ankle and dorsum of the foot. MICROBIOLOGY: Please see below. Assessment: 74-year-old female s/p mechanical fall, sent to the ER, and found to have a right ankle fracture following a witnessed mechanical fall, s/p bedside reduction and splinting by orthopedic surgery . PLAN: Acute metabolic encephalopathy likely 2/2 to acute on chronic hypercapnia and likely symptomatic anemia (see below for treatment) -Hypercapnia improved on cpap -Last ABG showed to be near her normal pCO2 -At baseline mentation -CT head: no acute intracranial abnormality -No focal deficits Symptomatic FRED anemia, chronic -S/p 3 units prbc transfusion this stay -No s/s of bleeding, unable to find source from previous colonoscopy and evaluation -Continue on ppi bid and carafate, ferrous sulfate, colace. -Eliquis was resumed at discharge Right ankle fracture -reduced , splinted by ortho -F/u arranged prior to discharge H/o CVA -C/w home meds. Chronic kidney disease3 -at baseline creatinine CHF with preserved ejection fraction -compensated -resumed home meds COPD -compensated w/o wheezing Chronic afib -C/w home meds Type 2 diabetes w/ neuropathy -C/w home meds Chronic pain from discectomies -C/w home meds Seizure disorder -resumed home meds Hx of constipation -bowel regimen GERD -on ppi Morbid obesity/matt -cpap home settings Hx of DVTs/Pe/IVC FILTER -C/w eliquis BID DISPOSITION: Discharge today home with Hospice, BULK SEALER TIME SPENT ON DISCHARGE: 35 minutes. Vital Signs/I&Os Vital Signs Date Time Temp Pulse Resp B/P (MAP) Pulse Ox O2 Delivery O2 Flow Rate FiO2 05/14/20 10:20 16 05/14/20 09:14 88 148/68 05/14/20 09:00 3.0 05/14/20 06:00 96.5 94 Nasal Cannula 05/14/20 00:35 28 I&O- Last 24 Hours up to 6 AM 05/14/20 06:00 Intake Total 900 ml Output Total 2125 ml Balance -1225 ml Laboratory Data Labs 24H Laboratory Tests 2 05/13/20 20:24: Bedside Glucose (Misc Panel) 320H 05/14/20 07:19: Nucleated Red Blood Cells % (auto) 0.5H, Anion Gap 9, Glomerular Filtration Rate 39.3, Calcium Level 8.5L, Total Bilirubin 0.8, Aspartate Amino Transf (AST/SGOT) 19, Alanine Aminotransferase (ALT/SGPT) 18, Alkaline Phosphatase 96, Total Protein 5.8L, Albumin 2.4L, Albumin/Globulin Ratio 0.7L CBC/BMP Laboratory Tests 05/14/20 07:19 FSBS Laboratory Tests Test 05/13/20 20:24 Range/Units Bedside Glucose (Misc Panel) 320 83-110 MG/DL Discharge Medications Scheduled Allopurinol (Zyloprim) 300 Mg Tab, 300 MG PO DAILY, (Reported) Ammonium Lactate (Ammonium Lactate) 12 % Cre, 1 DOSE TOP BID, (Reported) APPLY TO LEGS/FEET Apixaban (Eliquis) 5 Mg Tablet, 5 MG PO BID, (Reported) Atenolol (Atenolol) 25 Mg Tablet, 25 MG PO BID, (Reported) Cyclosporine (Restasis Multidose) 5.5 Ml Drops, 1 DROP OU BID, (Reported) Docusate Sodium (Docusate Sodium) 100 Mg Cap, 100 MG PO BID, (Reported) Duloxetine Hcl (Cymbalta) 60 Mg Capsule.dr, 60 MG PO BID, (Reported) Ferrous Sulfate (Ferrous Sulfate) 325 Mg Tablet, 325 MG PO BID Fluticasone Furoate (Arnuity Ellipta) 100 Mcg Blst.w.dev, 1 PUFF INH QHS, (Reported) Insulin Degludec (Tresiba) 100 Unit/1 Ml Vial, 40 UNIT SC BID, (Reported) Insulin Lispro (Humalog Kwikpen U-200) 200 Unit/1 Ml Insuln.pen, 1 DOSE SC ACHS, (Reported) PATIENT SPECIFIC SLIDING SCALE Lactulose (Lactulose) 10 Gm/15 Ml Solution, 30 ML PO BID, (Reported) Levetiracetam (Levetiracetam ER) 500 Mg Lindsay, 500 MG PO BID, (Reported) Nortriptyline HCl (Nortriptyline HCl) 10 Mg Capsule, 10 MG PO BID, (Reported) Pantoprazole Sodium (Pantoprazole Sodium) 40 Mg Tablet.dr, 40 MG PO BID, (Reported) Polyethylene Glycol 3350 (Miralax) 119 Gm Powder, 17 GM PO BID, (Reported) Pregabalin (Lyrica) 150 Mg Capsule, 150 MG PO TID, (Reported) Spironolactone (Spironolactone) 25 Mg Tablet, 25 MG PO DAILY, (Reported) Sucralfate (Sucralfate) 1 Gm Tablet, 1 GM PO ACHS, (Reported) Torsemide (Torsemide) 100 Mg Tablet, 100 MG PO DAILY, (Reported) Scheduled PRN Acetaminophen (Tylenol Arthritis) 650 Mg Tablet.er, 650 MG PO QID PRN for PAIN / FEVER, (Reported) Albuterol Sulf (Albuterol Sulfate) 2.5 Mg/3 Ml Nebu, 2.5 MG INH QID PRN for SHORTNESS OF BREATH, (Reported) Albuterol Sulfate (Ventolin Hfa) 18 Gm Hfa.aer.ad, 2 PUFFS INH QID PRN for SHORTNESS OF BREATH, (Reported) Nystatin (Nystatin) 100,000 Unit/Gm Cre, 1 DOSE TOP BID PRN for RASH, (Reported) UNDER BREASTS AND GROIN AREA Ondansetron HCl (Ondansetron HCl) 4 Mg Tab, 4 MG PO QID PRN for NAUSEA OR VOMITING, (Reported) Oxycodone/Acetaminophen (Oxycodone-Acetaminophen 5-325) 1 Each Tablet, 1 TAB PO Q8HP PRN for severe pain (PS 8-10) Allergies Coded Allergies: Cephalosporins (Verified Allergy, Intermediate, hives, 07/09/19) Penicillins (Verified Allergy, Intermediate, hives, 07/09/19) Sulfa (Sulfonamide Antibiotics) (Verified Allergy, Intermediate, hives, 07/09/19) chlorpromazine (Verified Allergy, Intermediate, hiives, 07/09/19) loratadine (Verified Allergy, Intermediate, hives, 07/09/19) pentazocine (Verified Allergy, Intermediate, hives, 07/09/19) TAPE (Verified Allergy, Unknown, band-aids, 07/09/19) methadone (Verified Allergy, Unknown, 07/09/19) HAS HAD DILAUDID AND DEMEROL IN THE PAST Ayala Brown MD May 14, 2020 18:26
== END 2020-05-14 11:25 | disposition hospice, home (50) | DRG 562 ==
LOC: M ED 20:24 → M ED INP 05-10 08:06 → M MS5PR 05-10 10:10
PROVIDERS: ADMIT Internal Medicine Nephrology; ATTEND Internal Medicine
PROC: 30233N1 Transfusion of Nonautologous Red Blood Cells into Peripheral Vein, Percutaneous Approach (ICD-10-PCS; principal; 2020-05-10)
DX: S82.851A Displaced trimalleolar fracture of right lower leg, initial encounter for closed fracture (principal); G93.41 Metabolic encephalopathy; J96.22 Acute and chronic respiratory failure with hypercapnia; I13.0 Hypertensive heart and chronic kidney disease with heart failure and stage 1 through stage 4 chronic kidney disease, or unspecified chronic kidney disease; I50.32 Chronic diastolic (congestive) heart failure; I48.20 Chronic atrial fibrillation, unspecified; N18.30 Chronic kidney disease, stage 3 unspecified; J44.9 Chronic obstructive pulmonary disease, unspecified; D50.9 Iron deficiency anemia, unspecified; Z51.5 Encounter for palliative care; G40.909 Epilepsy, unspecified, not intractable, without status epilepticus; G47.33 Obstructive sleep apnea (adult) (pediatric); G25.81 Restless legs syndrome; K21.9 Gastro-esophageal reflux disease without esophagitis; E11.40 Type 2 diabetes mellitus with diabetic neuropathy, unspecified; Z79.4 Long term (current) use of insulin; E66.01 Morbid (severe) obesity due to excess calories; R33.9 Retention of urine, unspecified; M10.9 Gout, unspecified; I15.8 Other secondary hypertension; Z86.73 Personal history of transient ischemic attack (TIA), and cerebral infarction without residual deficits; F03.90 Unspecified dementia, unspecified severity, without behavioral disturbance, psychotic disturbance, mood disturbance, and anxiety; B18.2 Chronic viral hepatitis C; K59.00 Constipation, unspecified; Z86.711 Personal history of pulmonary embolism; Z86.718 Personal history of other venous thrombosis and embolism; G89.29 Other chronic pain; W18.30XA Fall on same level, unspecified, initial encounter; Y92.002 Bathroom of unspecified non-institutional (private) residence as the place of occurrence of the external cause